=== PATIENT | female | born 1940 | race Hispanic/Latino ===

== ENCOUNTER 2018-09-22 20:55 | Emergency (ER) | payer OTHER, MEDICARE ==
--- OUTSIDE RECORDS SUMMARY | 2018-09-22 20:58 | XMS REPORT ---
:1940 [facility] [address] [place] [address] [place] [id number] Care Team Providers Name Role Phone Unavailable Unavailable Unavailable Problems This patient has no known problems. Allergies, Adverse Reactions, Alerts This patient has no known allergies or adverse reactions. Medications This patient has no known medications.
[2018-09-22 22:10] LABS: Absolute Lymphocytes (CBC) 2.1 K/uL (0.7-4.9); Basophils % 0.6 % (0-1.3); Lymphocytes % 21.5 % (15.3-44.8); RBC Red Blood Cell Count 3.79 M/uL (3.86-4.86)
[2018-09-22 22:13] LABS: Protime INR 1.11
[2018-09-22 22:40] LABS: Magnesium 2.1 mg/dL (1.8-2.4); Potassium 3.4 mmol/L (3.5-5.1); Troponin (Emerg Dept Use Only) 0.11 ng/mL (0.0-0.045)
--- NOTE | 2018-09-23 00:22 | ER ---
Nurse's Notes [facility] Name: Claudette Sherman Age: 77 yrs Sex: Female : 1940 Arrival Date: 09/22/2018 Time: 20:58 Bed 18 Private MD: Diagnosis: Elevated troponin;Essential (primary) hypertension Presentation: 09/22 21:02 Presenting complaint: Patient states: I feel kind of off, a little dizzy. We checked my la1 BP at the pharmacy and my BP was 224/69 and they advised we come in. Transition of care: patient was not received from another setting of care. Onset of symptoms was September 22, 2018. Risk Assessment: Do you want to hurt yourself or someone else? Patient reports no desire to harm self or others. Initial Sepsis Screen: Does the patient meet any 2 criteria? No. Patient's initial sepsis screen is negative. Does the patient have a suspected source of infection? No. Patient's initial sepsis screen is negative. Care prior to arrival: None. 21:02 Method Of Arrival: Ambulatory la1 21:02 Acuity: LIZ 3 la1 Historical: - Allergies: 21:02 No Known Allergies; la1 - Home Meds: 21:02 lisinopril 10 mg Oral tab 1 tab BID [Active]; levothyroxine 88 mcg tab 1 tab once daily la1 [Active]; aspirin 81 mg Oral TbEC 1 tab once daily [Active]; - PMHx: 21:02 Hypertension; High Cholesterol; Hypothyroidism; la1 - Immunization history:: Adult Immunizations up to date. - Social history:: Smoking status: Patient/guardian denies using tobacco. - Ebola Screening: : No symptoms or risks identified at this time. Screenin:57 Abuse screen: Denies threats or abuse. Denies injuries from another. Abuse screen: wh Denies threats or abuse. Denies injuries from another. Nutritional screening: No deficits noted. Tuberculosis screening: No symptoms or risk factors identified. Fall Risk None identified. Assessment: 21:50 General: Appears in no apparent distress. Behavior is calm, cooperative, appropriate wh for age. Pain: Denies pain. Neuro: Level of Consciousness is awake, alert, obeys commands, Oriented to person, place, time, situation, Appropriate for age Supervisor Paper Testing are equal bilaterally. Cardiovascular: Heart tones S1 S2. Respiratory: Airway is patent Respiratory effort is even, unlabored, Respiratory pattern is regular, symmetrical, Breath sounds are clear bilaterally. GI: Abdomen is flat, non-distended, Abd is soft and non tender X 4 quads. : No signs and/or symptoms were reported regarding the genitourinary system. EENT: No signs and/or symptoms were reported regarding the EENT system. Derm: Skin is intact, is healthy with good turgor, Skin is pink, warm \T\ dry. normal. Musculoskeletal: Range of motion: intact in all extremities. 22:55 Reassessment: Patient appears in no apparent distress at this time. Patient and/or family updated on plan of care and expected duration. Pain level reassessed. Patient is alert, oriented x 3, equal unlabored respirations, skin warm/dry/pink. Patient denies pain at this time. Vital Signs: 21:04 Pulse 77; Resp 18; Temp 98.4; Pulse Ox 98% on R/A; Weight 59.87 kg; la1 21:04 BP 180 / 64; la1 21:45 BP 150 / 61; Pulse 98; Resp 18; Pulse Ox 100% on R/A; wh 22:55 BP 179 / 65; Pulse 62; Resp 16; Pulse Ox 100% ; 16 00:00 BP 95 / 84; Pulse 66; Resp 18; Pulse Ox 100% on R/A; 00:30 BP 165 / 79; Pulse 66; Resp 18; Pulse Ox 100% on R/A; ED Course: 09/22 20:58 Patient arrived in ED. ag3 21:02 Arm band placed on right wrist. la1 21:03 Triage completed. la1 21:11 Herbert Bryson is Primary Nurse. wh 21:18 Naty Reilly FNP-C is PHCP. kb 21:18 Robbin Garza MD is Attending Physician. kb 21:57 Inserted saline lock: 22 gauge in left antecubital area, using aseptic technique. cm6 22:14 XRAY Chest (1 view) In Process Unspecified. EDMS 22:57 Patient has correct armband on for positive identification. Placed in gown. Bed in low wh position. Call light in reach. Side rails up X 1. equipment monitor phototypesetting on. Pulse ox on. NIBP on. 09/23 00:50 No provider procedures requiring assistance completed. IV discontinued, intact, bleeding controlled, No redness/swelling at site. Administered Medications: 00:37 Drug: ZyrTEC - Cetirizine 10 mg Route: PO; 00:50 Follow up: Response: No adverse reaction Outcome: 00:50 AMA AMA form signed 00:50 Condition: good 00:50 Instructed on the need for admit. 00:52 Patient left the ED. Signatures: Dispatcher [employer] EDMS Naty Reilly, GABRIEL-C TECHNICAL SYSTEM ANALYST-Tera Olivo RN RN la1 Herbert Bryson Carlene Marshall ag3 Marielle Mckeon cm6 Corrections: (The following items were deleted from the chart) 09/22 21:05 21:02 Acuity: LIZ 2 la1 la1
--- NOTE | 2018-09-23 00:24 | EDPHYS ---
Physician Documentation [facility] Name: Claudette Sherman Age: 77 yrs Sex: Female : 1940 Arrival Date: 09/22/2018 Time: 20:58 Bed 18 Private MD: ED Physician Robbin Garza HPI: 09/23 00:58 This 77 yrs old Female presents to ER via Ambulatory with complaints of High kb Blood Pressure. 00:58 The patient has elevated blood pressure and discovered this at a drugstore. Onset: The kb symptoms/episode began/occurred just prior to arrival. Associated signs and symptoms: The patient has no apparent associated signs or symptoms. Severity of symptoms: At its worst the blood pressure was 200 mm Hg, in the emergency department the blood pressure is improved, 180 mm Hg. The patient has experienced similar episodes in the past. The patient has not recently seen a physician. reports pt's blood pressure was elevated and they were advised to come get her checked out. Pt denies any chest pain, headache or other symptoms. Historical: - Allergies: 09/22 21:02 No Known Allergies; la1 - Home Meds: 21:02 lisinopril 10 mg Oral tab 1 tab BID [Active]; levothyroxine 88 mcg tab 1 tab once daily la1 [Active]; aspirin 81 mg Oral TbEC 1 tab once daily [Active]; - PMHx: 21:02 Hypertension; High Cholesterol; Hypothyroidism; la1 - Immunization history:: Adult Immunizations up to date. - Social history:: Smoking status: Patient/guardian denies using tobacco. - Ebola Screening: : No symptoms or risks identified at this time. ROS: 09/23 00:57 Constitutional: Negative for fever, chills, and weight loss, Eyes: Negative for injury, kb pain, redness, and discharge, ENT: Negative for injury, pain, and discharge, Neck: Negative for injury, pain, and swelling, Cardiovascular: Negative for chest pain, palpitations, and edema, Respiratory: Negative for shortness of breath, cough, wheezing, and pleuritic chest pain, Abdomen/GI: Negative for abdominal pain, nausea, vomiting, diarrhea, and constipation, Back: Negative for injury and pain, : Negative for injury, bleeding, discharge, and swelling, MS/Extremity: Negative for injury and deformity, Skin: Negative for injury, rash, and discoloration, Neuro: Negative for headache, weakness, numbness, tingling, and seizure. Exam: 00:57 Constitutional: This is a well developed, well nourished patient who is awake, alert, kb and in no acute distress. Head/Face: Normocephalic, atraumatic. Eyes: Pupils equal round and reactive to light, extra-ocular motions intact. Lids and lashes normal. Conjunctiva and sclera are non-icteric and not injected. Cornea within normal limits. Periorbital areas with no swelling, redness, or edema. ENT: Nares patent. No nasal discharge, no septal abnormalities noted. Tympanic membranes are normal and external auditory canals are clear. Oropharynx with no redness, swelling, or masses, exudates, or evidence of obstruction, uvula midline. Mucous membranes moist. Neck: Trachea midline, no thyromegaly or masses palpated, and no cervical lymphadenopathy. Supple, full range of motion without nuchal rigidity, or vertebral point tenderness. No Meningismus. Chest/axilla: Normal chest wall appearance and motion. Nontender with no deformity. No lesions are appreciated. Cardiovascular: Regular rate and rhythm with a normal S1 and S2. No gallops, or rubs. Normal PMI, no JVD. No pulse deficits. Respiratory: Lungs have equal breath sounds bilaterally, clear to auscultation and percussion. No rales, rhonchi or wheezes noted. No increased work of breathing, no retractions or nasal flaring. Abdomen/GI: Soft, non-tender, with normal bowel sounds. No distension or tympany. No guarding or rebound. No evidence of tenderness throughout. Skin: Warm, dry with normal turgor. Normal color with no rashes, no lesions, and no evidence of cellulitis. MS/ Extremity: Pulses equal, no cyanosis. Neurovascular intact. Full, normal range of motion. Neuro: Awake and alert, GCS 15, oriented to person, place, time, and situation. Cranial nerves II-XII grossly intact. Motor strength 5/5 in all extremities. Sensory grossly intact. Cerebellar exam normal. Normal gait. Vital Signs: 09/22 21:04 Pulse 77; Resp 18; Temp 98.4; Pulse Ox 98% on R/A; Weight 59.87 kg; la1 21:04 BP 180 / 64; la1 21:45 BP 150 / 61; Pulse 98; Resp 18; Pulse Ox 100% on R/A; 22:55 BP 179 / 65; Pulse 62; Resp 16; Pulse Ox 100% ; 09/23 00:00 BP 95 / 84; Pulse 66; Resp 18; Pulse Ox 100% on R/A; 00:30 BP 165 / 79; Pulse 66; Resp 18; Pulse Ox 100% on R/A; MDM: 09/22 21:18 Patient medically screened. kb 23:01 Data reviewed: vital signs, nurses notes. Data interpreted: Pulse oximetry: on room air kb is 100 %. Interpretation: normal. ED course: Troponin was 0.11 when pt was here in 2013 as well. Will recheck to look for elevation. Pt has no chest pain. 09/23 00:17 Counseling: I had a detailed discussion with the patient and/or guardian regarding: the kb historical points, exam findings, and any diagnostic results supporting the discharge/admit diagnosis, lab results, radiology results, the need for further work-up and treatment in the hospital. ED course: Pt educated on troponin elevation and need for admission to the hospital. Pt reports she never had chest pain and is not staying because she is ready to go home. Will call Dr Anguiano in the morning. Educated to return for any chest pain. 09/22 21:25 Order name: Basic Metabolic Panel; Complete Time: 22:42 kb 09/22 21:25 Order name: CBC with Diff; Complete Time: 22:22 kb 09/22 21:25 Order name: Magnesium; Complete Time: 22:42 kb 09/22 21:25 Order name: NT PRO-BNP; Complete Time: 22:42 kb 09/22 21:25 Order name: PT-INR; Complete Time: 22:18 kb 09/22 21:25 Order name: Troponin (emerg Dept Use Only); Complete Time: 22:42 kb 09/22 21:25 Order name: XRAY Chest (1 view) kb 09/22 21:25 Order name: EKG; Complete Time: 21:26 kb 09/22 21:25 Order name: Cardiac monitoring; Complete Time: 22:02 kb 09/22 21:25 Order name: EKG - Nurse/Tech; Complete Time: 22:02 kb 09/22 21:25 Order name: IV Saline Lock; Complete Time: 22: kb 09/22 23:36 Order name: Troponin (emerg Dept Use Only); Complete Time: 00:14 kb 09/22 23:36 Order name: EKG; Complete Time: 23:36 kb 09/22 21:25 Order name: Labs collected and sent; Complete Time: 22:02 kb 09/22 21:25 Order name: O2 Per Protocol; Complete Time: 22: kb 09/22 21:25 Order name: O2 Sat Monitoring; Complete Time: 22: kb 09/22 23:36 Order name: EKG - Nurse/Tech; Complete Time: 23:49 kb Administered Medications: 00:37 Drug: ZyrTEC - Cetirizine 10 mg Route: PO; 00:50 Follow up: Response: No adverse reaction Disposition: 06:41 Co-signature as Attending Physician, Robbin Garza MD I agree with the assessment and tw4 plan of care. Disposition: 09/23/18 00:19 Patient has left against medical advice. Impression: Elevated troponin, Essential (primary) hypertension. - Patients states they are going to Home. - Condition is Stable. Follow up: Emergency Department; When: As needed; Reason: Worsening of condition. Follow up: Private Physician; When: 2 - 3 days; Reason: Recheck today's complaints, Continuance of care, Re-evaluation by your physician. - Problem is new. - Symptoms are resolved. Signatures: Dispatcher [employer] EDOH Naty Reilly, GOLDEN RIOS-Tera Olivo RN RN azHerbert Fonseca Robbin Garza MD MD tw4 Corrections: (The following items were deleted from the chart) 00:19 00:19 09/23/2018 00:19 Patients has left against medical advice. Impression: Chest kb pain, unspecified. Patient states they are going to Home. Condition is Stable. Follow up: Emergency Department; When: As needed; Reason: Worsening of condition. Follow up: Private Physician; When: 2 - 3 days; Reason: Recheck today's complaints, Continuance of care, Re-evaluation by your physician. Problem is new. Symptoms are resolved. 00:20 00:17 ED course: Pt educated on troponin elevation and need for admission [facility]. Pt reports she never had chest pain and is not staying because she is ready to go home. . 00:52 00:19 09/23/2018 00:19 Patients has left against medical advice. Impression: Elevated wh troponin; Essential (primary) hypertension. Patient states they are going to Home. Condition is Stable. Follow up: Emergency Department; When: As needed; Reason: Worsening of condition. Follow up: Private Physician; When: 2 - 3 days; Reason: Recheck today's complaints, Continuance of care, Re-evaluation by your physician. Problem is new. Symptoms are resolved. kb
[2018-09-23] MEDS ORDERED: CETIRIZINE HCL 5 MG TABLET ONE ×2 (00:30→00:33)
[2018-09-23 02:29] VITALS: TEMP 98.4
[2018-09-23 02:30] VITALS: O2SAT 100
[2018-09-23 02:34] VITALS: BP 165/79
--- NOTE | 2018-09-23 08:03 | RAD REPORT ---
EXAM DESCRIPTION: Danis Single View09/22/2018 10:14 pm CLINICAL HISTORY: Chest pain COMPARISON: 2017 FINDINGS: The lungs appear clear of acute infiltrate. The heart is mildly to moderately enlarged. C alcification of the mitral annulus is seen. IMPRESSION: No acute abnormalities displayed
--- NOTE | 2018-09-23 11:46 | EKG ---
Test Date: 2018-09-23 Test Time: 03:29:37 Manager Of Tires Sales: TYREE MEASUREMENT RESULTS: Intervals: Rate: 92 GA: 136 QRSD: 84 QT: 362 QTc: 447 [place]: P: 39 GA: 136 QRS: 30 T: 93 INTERPRETIVE STATEMENTS: Normal sinus rhythm Nonspecific T wave abnormality Abnormal ECG Compared to ECG 09/22/2018 23:44:51 T-wave abnormality now present Electronically Signed On 09-23-18 11:44:47 CDT by Delfino Guzmán
--- NOTE | 2018-09-23 11:46 | EKG ---
Test Date: 2018-09-22 Test Time: 23:44:51 Aircraft Loadmaster Superintendent: TYREE MEASUREMENT RESULTS: Intervals: Rate: 68 MD: 146 QRSD: 156 QT: 482 QTc: 512 [place]: P: 50 MD: 146 QRS: 9 T: 224 INTERPRETIVE STATEMENTS: Normal sinus rhythm Nonspecific intraventricular block Abnormal ECG Compared to ECG 04/23/2013 17:18:48 Left bundle-branch block no longer present Electronically Signed On 09-23-18 11:44:55 CDT by Delfino Guzmán
--- NOTE | 2018-09-23 11:47 | EKG ---
Test Date: 2018-09-22 Test Time: 22:06:56 Mediation Commissioner: TYREE MEASUREMENT RESULTS: Intervals: Rate: 74 LA: 146 QRSD: 154 QT: 468 QTc: 519 [place]: P: 60 LA: 146 QRS: 7 T: 142 INTERPRETIVE STATEMENTS: Normal sinus rhythm Nonspecific intraventricular block Abnormal ECG Compared to ECG 04/23/2013 17:18:48 Left bundle-branch block no longer present Electronically Signed On 09-23-18 11:44:58 CDT by Delfino Guzmán
== END 2018-09-23 00:52 | disposition left against medical advice (07) ==
LOC: ER 20:55
DX: I10 Essential (primary) hypertension (principal); E78.00 Pure hypercholesterolemia, unspecified; E03.9 Hypothyroidism, unspecified; Z79.82 Long term (current) use of aspirin
CPT/HCPCS: 36415; 71045; 80048; 83735; 83880; 84484; 85025; 85610; 93005; 99284

== ENCOUNTER 2020-02-22 18:36 | Observation (INO) | payer OTHER, MEDICARE ==
--- OUTSIDE RECORDS SUMMARY | 2020-02-22 18:50 | XMS REPORT | Continuity of Care Document ---
:1940 Author Organization [facility] t Address [address] [place] [address] Care Team Providers Name Role Phone Ellyn RN Attending Clinician Unavailable Payers Payer Name Policy Type Policy Number Effective Date Expiration Date S ource Problems This patient has no known problems. Allergies, Adverse Reactions, Alerts Allergy Allergy Status Severity Reaction(s) Onset Inactive Treating Comm ents Source Name Type Date Date Clinician No Known DA Active U 2020- [facility]11 [facility] 00:00: [address] No Known DA Active U 2020-1 [facility] 0[facility] 00:[facility]: [address] No Known DA Active U 2020-1 [facility] 0[facility] 00:00: [address] Medications This patient has no known medications. Procedures This patient has no known procedures. Encounters Start End Encounter Admission Attending Care Care Encounter Source Date/Time Date/Time Type Type Clinicians Facility Department ID 2020-02-22 2020-02-22 Transition Zuhair Ragland [id number] 00:00:00 00:00:00 of Care Lisa Oneal [id number] Diony [id number] Results Test Description Test Time Test Comments Results Result Comments Source GLUCOSE BEDSIDE TESTING 2020-01-05 11:55:00 Test Item Value Reference Range Interpretation Comme nts GLUCOSE BEDSIDE TESTING (test code = GLUBED) 132 MG/DL 60-99 H GLUCOSE BEDSIDE [id number] 11:04:00 Test Item Value Reference Range Interpretation Comments GLUCOSE BEDSIDE TESTING (test code = 74 MG/DL 60-99 N GLUBED) GLUCOSE BEDSIDE [id number] 07:38:00 Test Item Value Reference Range Interpretation Comments GLUCOSE BEDSIDE TESTING (test code 110 MG/DL 60-99 H = GLUBED) BASIC METABOLIC [id number] 06:32:00 Test Item Value Reference Range Interpretation Comments SODIUM (test code = 132 MMOL/L 137-145 L NA) POTASSIUM (test code = 3.6 MMOL/L 3.5-5.1 N K) CHLORIDE (test code = 103 MMOL/L 98-107 N CL) CARBON DIOXIDE (test 23 MMOL/L 22-30 N code = CO2) GLUCOSE (test code = 124 MG/DL 74-106 H GLU) BLOOD UREA NITROGEN 39 MG/DL 7-17 H (test code = BUN) GLOMERULAR FILTRATION > 60 Report ing units: RATE (test code = GFR) ml/mi n/1.73 m2 (Modified MDRD Formula)Referen ce Range: > or = 6 0 ml/min/1.73 m2 CREATININE (test code 0.80 MG/DL 0.52-1.04 N = CREAT) CALCIUM (test code = 8.1 MG/DL 8.4-10.2 L CA) BASIC METABOLIC [id number] 06:31:00 Test Item Value Reference Range Interpretation Comments SODIUM (test code = 132 MMOL/L 137-145 L NA) POTASSIUM (test code = 3.6 MMOL/L 3.5-5.1 N K) CHLORIDE (test code = 103 MMOL/L 98-107 N CL) CARBON DIOXIDE (test MMOL/L 22-30 code = CO2) GLUCOSE (test code = MG/DL 74-106 GLU) BLOOD UREA NITROGEN MG/DL 7-17 (test code = BUN) GLOMERULAR FILTRATION > 60 Report ing units: RATE (test code = GFR) ml/mi n/1.73 m2 (Modified MDRD Formula)Referen ce Range: > or = 6 0 ml/min/1.73 m2 CREATININE (test code 0.80 MG/DL 0.52-1.04 N = CREAT) CALCIUM (test code = MG/DL 8.7-9.7 CA) BASIC METABOLIC [id number] 06:29:00 Test Item Value Reference Range Interpretation Comments SODIUM (test code = NA) 132 MMOL/L 137-145 L POTASSIUM (test code = K) 3.6 MMOL/L 3.5-5.1 N CHLORIDE (test code = CL) 103 MMOL/L 98-107 N CARBON DIOXIDE (test code = CO2) MMOL/L 22-30 GLUCOSE (test code = GLU) MG/DL 74-106 BLOOD UREA NITROGEN (test code = MG/DL 7-17 BUN) GLOMERULAR FILTRATION RATE (test code = GFR) CREATININE (test code = CREAT) MG/DL 0.52-1.04 CALCIUM (test code = CA) MG/DL 8.7-9.7 BASIC METABOLIC [id number] 06:28:00 Test Item Value Reference Range Interpretation Comments SODIUM (test code = NA) MMOL/L 137-145 POTASSIUM (test code = K) MMOL/L 3.5-5.1 CHLORIDE (test code = CL) 103 MMOL/L 98-107 N CARBON DIOXIDE (test code = CO2) MMOL/L 22-30 GLUCOSE (test code = GLU) MG/DL 74-106 BLOOD UREA NITROGEN (test code = MG/DL 7-17 BUN) GLOMERULAR FILTRATION RATE (test code = GFR) CREATININE (test code = CREAT) MG/DL 0.52-1.04 CALCIUM (test code = CA) MG/DL 8.7-9.7 PROTHROMBIN [id number] 06:17:00 Test Item Value Reference Range Interpretation Comments PROTHROMBIN TIME 19.2 SECONDS 9.4-12.5 H PATIENT (test code = PTP) INTERNATIONAL NORMAL 1.7 The INR is to be RATIO (test code = used only for INR) monitoring oral anticoagulantth erap y. INDICATION I NR VALUE ---- ---- ---- -------1. Prophylaxis, de ep venous thrombos is, including hig h risk surgery. 2.0 - 3.0 2. Prophylaxis, de ep venous thrombos is, hip surgery, treatment for d eep venous thrombosis or pulmonary prevention of systemic emboli sm in patients wit h valvular heart disease, atrial fibrillation, tissue heart va lve, or acute myocar dial infarction. 2.0 - 3 .0 3. Mechanical prosthesis hear t valves, recurrent syste eric embolism. 3.0 - 4.5 CBC W/AUTO [id number] 06:12:00 Test Item Value Reference Range Interpretation Comments WHITE BLOOD CELL (test code = 24.7 K/MM3 3.8-9.8 H WBC) RED BLOOD CELL (test code = 2.71 M/MM3 3.58-4.97 L RBC) HEMOGLOBIN (test code = HGB) 7.9 G/DL 11.2-14.9 L HEMATOCRIT (test code = HCT) 25.1 % 33.2-43.5 L MEAN CELL VOLUME (test code = 93 fL 80.7-99.1 N MCV) MEAN CELL HGB (test code = MCH) 29.2 pg 27.0-34.1 N MEAN CELL HGB CONCETRATION 31.5 % 32.2-35.7 L (test code = MCHC) RED CELL DISTRIBUTION WIDTH 16.9 % 12.1-15.2 H (test code = RDW) PLATELET COUNT (test code = 462 K/MM3 129-368 H PLT) MEAN PLATELET VOLUME (test code 10.5 fl 7.4-10.4 H = MPV) NEUTROPHIL % (test code = NT%) 89.9 % 43-75 H IMMATURE GRANULOCYTE % (test 2.0 % 0.0-2.0 N code = IG%) LYMPHOCYTE % (test code = LY%) 3.6 % 14-44 L MONOCYTE % (test code = MO%) 3.7 % 4-13 L EOSINOPHIL % (test code = EO%) 0.4 % 0-6 N BASOPHIL % (test code = BA%) 0.4 % 0-2 N NUCLEATED RBC % (test code = 0.0 % 0-1.0 N NRBC%) NEUTROPHIL # (test code = NT#) 22.14 K/mm3 2.0-7.6 H IMMATURE GRANULOCYTE # (test 0.49 x10 3/uL 0-0.03 H code = IG#) LYMPHOCYTE # (test code = LY#) 0.90 K/mm3 1.0-3.8 L MONOCYTE # (test code = MO#) 0.91 K/mm3 0.1-0.8 H EOSINOPHIL # (test code = EO#) 0.11 K/mm3 0.0-0.2 N BASOPHIL # (test code = BA#) 0.11 K/mm3 0.0-0.2 N NUCLEATED RBC # (test code = 0.00 K/mm3 0.0-0.1 N NRBC#) - CT ABD PELVIS W/O [id number] 19:52:00 [facility] 1940 Sex: F Patient Name: JORGE A HORTA Unit No: [id number] EXAMS: CPT CODE: [id number] CT ABD PELVIS W/O CONT [id number] EXAM: CT abdomen and pelvis INDICATION: Post-op bleeding COMPARISON: December 30, 2019 LOCATION: [facility] CT scan of the abdomen and pelvis was performed without intravenous contrast. One or more of the following radiation dose reduction techniques was used: automated exposure control, adjustment of mA and/or KV according to patient size, and/or utilization of iterative reconstruction technique. FINDINGS: Quality of Exam: Acceptable. LIVER: The liver is unremarkable. BILIARY SYSTEM: There is no biliary dilatation. The gallbladder has been previously removed. SPLEEN: The spleen is unremarkable. PANCREAS: The pancreas is unremarkable. ADRENAL GLANDS: The adrenal glands are unremarkable. KIDNEYS: The kidneys appear unremarkable. No renal or ureteral stone is identified. There is no hydronephrosis. AORTA: There is no abdominal aortic aneurysm. THORACIC: There are small bilateral pleural effusions and there is bilateral dependent atelectasis in the lungs. APPENDIX: The appendix appears unremarkable. GASTROINTESTINAL: There is no imaging evidence of large or small bowel obstruction. An ostomy in the pelvis is again identified. There are diverticula involving the colon. BONES/SOFT TISSUES: No concerning bony lesion identified. LYMPHATICS: No enlarged lymph nodes by CT criteria. PERITONEUM/OTHER: There continues to be a small amount of free fluid in the abdomen and pelvis. No free air is identified. A catheter in the pelvis is again identified. 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 IMPRESSION: There continues to be a small amount of free fluid in the abdomen and pelvis. This appears similar to the prior exam. There are small bilateral pleural effusions and there is bilateral dependent atelectasis in the lungs. There may be a component of left lower lobe pneumonia as well. There continues to be edema involving the subcutaneous soft tissues. There is diverticulosis of the colon. Compared to the prior exam, there has been little change. [id number] Reported and signed by: Loc Medina MD CC: Nicolas Wiley MD; Ramu Sutherland MD; Rashid Son MD Technologist: Jose Victor RT (R) (CT) CTDI: DLP: Trnscrpt: 01/02/2020 (1952) t.SDR.PMT [facility] NAME: JORGE A HORTA41 Gerry PHYS: [place] [address] : 1940 AGE: 79SEX: F LOC: Z.SI06 A PHONE #: [phone] EXAM DATE: 01/02/2020 STATUS: ADM IN FAX #: [phone] RAD #: D/C DT PAGE 2 Signed Report Patient Name: JORGE A HORTA Unit No: [id number] EXAMS: CPT CODE: [id number] CT ABD PELVIS W/O CONT [id number] <Continued> Orig Print D/T: S: 01/02/2020 (1955) [facility] NAME: JORGE A HORTA [id number] [address] PHYS: [id number] - Saurab[place] [address] : 1940 AGE: 79 SEX: F LOC: Z.SI06 A PHONE #: [phone] EXAM DATE: 01/02/2020 STATUS: ADM IN FAX #: [phone] RAD #: D/C DT PAGE 3 Signed ReportHGB [id number] 16:29:00 Test Item Value Reference Range Interpretation Comments HEMOGLOBIN (test code = HGB) 8.2 G/DL 11.2-14.9 L HEMATOCRIT (test code = HCT) 26.0 % 33.2-43.5 L GLUCOSE BEDSIDE [id number] 16:27:00 Test Item Value Reference Range Interpretation Comments GLUCOSE BEDSIDE TESTING (test code = 59 MG/DL 60-99 L GLUBED) GLUCOSE BEDSIDE [id number] 12:00:00 Test Item Value Reference Range Interpretation Comments GLUCOSE BEDSIDE TESTING (test code 101 MG/DL 60-99 H = GLUBED) HGB [id number] 09:00:00 Test Item Value Reference Range Interpretation Comments HEMOGLOBIN (test code = 6.4 G/DL 11.2-14.9 LL CALL ED TO SUZANNE BOYKIN) READBACK ON AT 0900 BY Ilan Loo HEMATOCRIT (test code = 20.5 % 33.2-43.5 L HCT) CBC W/AUTO [id number] 07:51:00 Test Item Value Reference Range Interpretation Comments WHITE BLOOD CELL (test 26.8 K/MM3 3.8-9.8 H code = WBC) RED BLOOD CELL (test 2.08 M/MM3 3.58-4.97 L code = RBC) HEMOGLOBIN (test code 6.3 G/DL 11.2-14.9 LL CALLED TO Rody Bai = HGB) & READBACK ON 01/02/20 AT 060 8 BY James Bean HEMATOCRIT (test code 19.9 % 33.2-43.5 LL CALLED TO Rody M = HCT) & READBACK ON 01/02/20 AT 060 8 BY James Bean MEAN CELL VOLUME (test 96 fL 80.7-99.1 N code = MCV) MEAN CELL HGB (test 30.3 pg 27.0-34.1 N code = MCH) MEAN CELL HGB 31.7 % 32.2-35.7 L CONCETRATION (test code = MCHC) RED CELL DISTRIBUTION 16.0 % 12.1-15.2 H WIDTH (test code = RDW) PLATELET COUNT (test 451 K/MM3 129-368 H code = PLT) MEAN PLATELET VOLUME 10.9 fl 7.4-10.4 H (test code = MPV) NEUTROPHIL % (test 88.4 % 43-75 H code = NT%) IMMATURE GRANULOCYTE % 2.9 % 0.0-2.0 H (test code = IG%) LYMPHOCYTE % (test 3.8 % 14-44 L code = LY%) MONOCYTE % (test code 4.3 % 4-13 N = MO%) EOSINOPHIL % (test 0.3 % 0-6 N code = EO%) BASOPHIL % (test code 0.3 % 0-2 N = BA%) NUCLEATED RBC % (test 0.0 % 0-1.0 N code = NRBC%) NEUTROPHIL # (test 23.75 K/mm3 2.0-7.6 H code = NT#) IMMATURE GRANULOCYTE # 0.77 x10 3/uL 0-0.03 H (test code = IG#) LYMPHOCYTE # (test 1.02 K/mm3 1.0-3.8 N code = LY#) MONOCYTE # (test code 1.16 K/mm3 0.1-0.8 H = MO#) EOSINOPHIL # (test 0.07 K/mm3 0.0-0.2 N code = EO#) BASOPHIL # (test code 0.07 K/mm3 0.0-0.2 N = BA#) NUCLEATED RBC # (test 0.00 K/mm3 0.0-0.1 N code = NRBC#) DIFFERENTIAL [id number] 07:51:00 Test Item Value Reference Range Interpretation Comments RBC MORPHOLOGY REQUIRED (test code NORMAL = RBCM) ANISOCYTOSIS (test code = ANISO) SLIGHT NONE PLATELET ESTIMATE (test code = INCREASED ADEQUATE PLTEST) PLATELET MORPHOLOGY (test code = NORMAL NORMAL PLTMORPH) BASIC METABOLIC [id number] 06:22:00 Test Item Value Reference Range Interpretation Comments SODIUM (test code = 135 MMOL/L 137-145 L NA) POTASSIUM (test code = 3.8 MMOL/L 3.5-5.1 N K) CHLORIDE (test code = 104 MMOL/L 98-107 N CL) CARBON DIOXIDE (test 26 MMOL/L 22-30 N code = CO2) ANION GAP (test code = 9 MMOL/L 14-24 L GAP) GLUCOSE (test code = 89 MG/DL 74-106 N GLU) BLOOD UREA NITROGEN 40 MG/DL 7-17 H (test code = BUN) GLOMERULAR FILTRATION > 60 Report ing units: RATE (test code = GFR) ml/mi n/1.73 m2 (Modified MDRD Formula)Referen ce Range: > or = 6 0 ml/min/1.73 m2 CREATININE (test code 0.70 MG/DL 0.52-1.04 N = CREAT) CALCIUM (test code = 8.3 MG/DL 8.4-10.2 L CA) PROTHROMBIN [id number] 06:22:00 Test Item Value Reference Range Interpretation Comments PROTHROMBIN TIME 18.2 SECONDS 9.4-12.5 H PATIENT (test code = PTP) INTERNATIONAL NORMAL 1.6 The INR is to be RATIO (test code = used only for INR) monitoring oral anticoagulantth erap y. INDICATION I NR VALUE ---- ---- ---- -------1. Prophylaxis, de ep venous thrombos is, including hig h risk surgery. 2.0 - 3.0 2. Prophylaxis, de ep venous thrombos is, hip surgery, treatment for d eep venous thrombosis or pulmonary prevention of systemic emboli sm in patients wit h valvular heart disease, atrial fibrillation, tissue heart va lve, or acute myocar dial infarction. 2.0 - 3 .0 3. Mechanical prosthesis hear t valves, recurrent syste eric embolism. 3.0 - 4.5 Comments to Medical Biller: .BASIC METABOLIC [id number] 06:17:00 Test Item Value Reference Range Interpretation Comments SODIUM (test code = NA) 135 MMOL/L 137-145 L POTASSIUM (test code = K) 3.8 MMOL/L 3.5-5.1 N CHLORIDE (test code = CL) 104 MMOL/L 98-107 N CARBON DIOXIDE (test code = CO2) MMOL/L 22-30 GLUCOSE (test code = GLU) MG/DL 74-106 BLOOD UREA NITROGEN (test code = MG/DL 7-17 BUN) GLOMERULAR FILTRATION RATE (test code = GFR) CREATININE (test code = CREAT) MG/DL 0.52-1.04 CALCIUM (test code = CA) MG/DL 8.7-9.7 CBC W/AUTO [id number] 06:16:00 Test Item Value Reference Range Interpretation Comments WHITE BLOOD CELL (test 26.8 K/MM3 3.8-9.8 H code = WBC) RED BLOOD CELL (test 2.08 M/MM3 3.58-4.97 L code = RBC) HEMOGLOBIN (test code 6.3 G/DL 11.2-14.9 LL CALLED TO Rody M = HGB) & READBACK ON 01/02/20 AT 060 8 BY James Bean HEMATOCRIT (test code 19.9 % 33.2-43.5 LL CALLED TO Rody M = HCT) & READBACK ON 01/02/20 AT 060 8 BY James Bean MEAN CELL VOLUME (test 96 fL 80.7-99.1 N code = MCV) MEAN CELL HGB (test 30.3 pg 27.0-34.1 N code = MCH) MEAN CELL HGB 31.7 % 32.2-35.7 L CONCETRATION (test code = MCHC) RED CELL DISTRIBUTION 16.0 % 12.1-15.2 H WIDTH (test code = RDW) PLATELET COUNT (test 451 K/MM3 129-368 H code = PLT) MEAN PLATELET VOLUME 10.9 fl 7.4-10.4 H (test code = MPV) NEUTROPHIL % (test 88.4 % 43-75 H code = NT%) IMMATURE GRANULOCYTE % 2.9 % 0.0-2.0 H (test code = IG%) LYMPHOCYTE % (test 3.8 % 14-44 L code = LY%) MONOCYTE % (test code 4.3 % 4-13 N = MO%) EOSINOPHIL % (test 0.3 % 0-6 N code = EO%) BASOPHIL % (test code 0.3 % 0-2 N = BA%) NUCLEATED RBC % (test 0.0 % 0-1.0 N code = NRBC%) NEUTROPHIL # (test 23.75 K/mm3 2.0-7.6 H code = NT#) IMMATURE GRANULOCYTE # 0.77 x10 3/uL 0-0.03 H (test code = IG#) LYMPHOCYTE # (test 1.02 K/mm3 1.0-3.8 N code = LY#) MONOCYTE # (test code 1.16 K/mm3 0.1-0.8 H = MO#) EOSINOPHIL # (test 0.07 K/mm3 0.0-0.2 N code = EO#) BASOPHIL # (test code 0.07 K/mm3 0.0-0.2 N = BA#) NUCLEATED RBC # (test 0.00 K/mm3 0.0-0.1 N code = NRBC#) DIFFERENTIAL [id number] 06:16:00 Test Item Value Reference Range Interpretation Comments RBC MORPHOLOGY REQUIRED (test code = RBCM) PLATELET ESTIMATE (test code = PLTEST) ADEQUATE PLATELET MORPHOLOGY (test code = NORMAL PLTMORPH) CBC W/AUTO [id number] 06:16:00 Test Item Value Reference Range Interpretation Comments WHITE BLOOD CELL (test 26.8 K/MM3 3.8-9.8 H code = WBC) RED BLOOD CELL (test 2.08 M/MM3 3.58-4.97 L code = RBC) HEMOGLOBIN (test code 6.3 G/DL 11.2-14.9 LL CALLED TO Rody M = HGB) & READBACK ON 01/02/20 AT 060 8 BY James Bean HEMATOCRIT (test code 19.9 % 33.2-43.5 LL CALLED TO Rody M = HCT) & READBACK ON 01/02/20 AT 060 8 BY James Bean MEAN CELL VOLUME (test 96 fL 80.7-99.1 N code = MCV) MEAN CELL HGB (test 30.3 pg 27.0-34.1 N code = MCH) MEAN CELL HGB 31.7 % 32.2-35.7 L CONCETRATION (test code = MCHC) RED CELL DISTRIBUTION 16.0 % 12.1-15.2 H WIDTH (test code = RDW) PLATELET COUNT (test 451 K/MM3 129-368 H code = PLT) MEAN PLATELET VOLUME 10.9 fl 7.4-10.4 H (test code = MPV) NEUTROPHIL % (test 88.4 % 43-75 H code = NT%) IMMATURE GRANULOCYTE % 2.9 % 0.0-2.0 H (test code = IG%) LYMPHOCYTE % (test 3.8 % 14-44 L code = LY%) MONOCYTE % (test code 4.3 % 4-13 N = MO%) EOSINOPHIL % (test 0.3 % 0-6 N code = EO%) BASOPHIL % (test code 0.3 % 0-2 N = BA%) NUCLEATED RBC % (test 0.0 % 0-1.0 N code = NRBC%) NEUTROPHIL # (test 23.75 K/mm3 2.0-7.6 H code = NT#) IMMATURE GRANULOCYTE # 0.77 x10 3/uL 0-0.03 H (test code = IG#) LYMPHOCYTE # (test 1.02 K/mm3 1.0-3.8 N code = LY#) MONOCYTE # (test code 1.16 K/mm3 0.1-0.8 H = MO#) EOSINOPHIL # (test 0.07 K/mm3 0.0-0.2 N code = EO#) BASOPHIL # (test code 0.07 K/mm3 0.0-0.2 N = BA#) NUCLEATED RBC # (test 0.00 K/mm3 0.0-0.1 N code = NRBC#) DIFFERENTIAL [id number] 06:16:00 Test Item Value Reference Range Interpretation Comments RBC MORPHOLOGY REQUIRED (test code = RBCM) PLATELET ESTIMATE (test code = PLTEST) ADEQUATE PLATELET MORPHOLOGY (test code = NORMAL PLTMORPH) GLUCOSE BEDSIDE [id number] 21:30:00 Test Item Value Reference Range Interpretation Comments GLUCOSE BEDSIDE TESTING (test code = 87 MG/DL 60-99 N GLUBED) ARTERIAL BLOOD [id number] 17:52:00 Test Item Value Reference Range Interpretation Comments ARTERIAL BLOOD GAS PH (test code 7.49 mmHg 7.35-7.45 H = PHA) ARTERIAL BLOOD GAS PCO2 (test 35.3 mmHg 35.0-45.0 N code = PCO2A) ARTERIAL BLOOD GAS PO2 (test code 83.9 mmol/L 80.0-100.0 N = PO2A) BICARBONATE TOTAL HCO3 (test code 26.3 mmol/L 20.0-26.0 H = HCO3) BASE EXCESS (test code = STEVEN) 3.3 mmol/L -3.0-3.0 H ABG O2 SATURATION (test code = 97.0 % 95.0-100.0 N SATA) ABG DELIVERY (test code = KAROLINA) VENT ABG VENT MODE (test code = MODEA) SIMV ABG VENT RESP RATE (test code = 4.0 /MIN RRA) ABG TIDAL VOLUME (test code = 400 ml TVA) ABG PEEP (test code = PEEPA) 5.0 cmH2O ABG PRESSURE SUPPORT (test code = 10 cmH2O PSABG) ABG TEMPERATURE (test code = 37.0 C >37 TEMPA) ABG SITE (test code = SITEA) AL ALLENS TEST (test code = ALLENS) NA CHECK FIO2 (test code = [id number]) 30 % PaO2/[id number] 17:52:00 Test Item Value Reference Range Interpretation Comments PaO2/FiO2 (test code = [id number]) 279.66 mm/Hg GLUCOSE BEDSIDE [id number] 16:23:00 Test Item Value Reference Range Interpretation Comments GLUCOSE BEDSIDE TESTING (test code 108 MG/DL 60-99 H = GLUBED) PROTHROMBIN [id number] 14:43:00 Test Item Value Reference Range Interpretation Comments PROTHROMBIN TIME 18.0 SECONDS 9.4-12.5 H PATIENT (test code = PTP) INTERNATIONAL NORMAL 1.6 The INR is to be RATIO (test code = used only for INR) monitoring oral anticoagulantth erap y. INDICATION I NR VALUE ---- ---- ---- -------1. Prophylaxis, de ep venous thrombos is, including hig h risk surgery. 2.0 - 3.0 2. Prophylaxis, de ep venous thrombos is, hip surgery, treatment for d eep venous thrombosis or pulmonary prevention of systemic emboli sm in patients wit h valvular heart disease, atrial fibrillation, tissue heart va lve, or acute myocar dial infarction. 2.0 - 3 .0 3. Mechanical prosthesis hear t valves, recurrent syste eric embolism. 3.0 - 4.5 UNABLE TO DRAW BLOOD, REASON: CBNNOTIFIED PATIENT CARE STAFF: PEPPER 01/01/20 AT 1405 BY Christiano [place] to Medical Biller: ,GLUCOSE BEDSIDE TESTING 2020-01-01 12:19:00 Test Item Value Reference Range Interpretation Comments GLUCOSE BEDSIDE TESTING (test code 116 MG/DL 60-99 H = GLUBED) GLUCOSE BEDSIDE [id number] 07:47:00 Test Item Value Reference Range Interpretation Comments GLUCOSE BEDSIDE TESTING (test code 109 MG/DL 60-99 H = GLUBED) BASIC METABOLIC [id number] 05:06:00 Test Item Value Reference Range Interpretation Comments SODIUM (test code = 136 MMOL/L 137-145 L NA) POTASSIUM (test code = 4.1 MMOL/L 3.5-5.1 N K) CHLORIDE (test code = 103 MMOL/L 98-107 N CL) CARBON DIOXIDE (test 27 MMOL/L 22-30 N code = CO2) ANION GAP (test code = 10 MMOL/L 14-24 L GAP) GLUCOSE (test code = 130 MG/DL 74-106 H GLU) BLOOD UREA NITROGEN 41 MG/DL 7-17 H (test code = BUN) GLOMERULAR FILTRATION > 60 Report ing units: RATE (test code = GFR) ml/mi n/1.73 m2 (Modified MDRD Formula)Referen ce Range: > or = 6 0 ml/min/1.73 m2 CREATININE (test code 0.70 MG/DL 0.52-1.04 N = CREAT) CALCIUM (test code = 8.5 MG/DL 8.4-10.2 N CA) BASIC METABOLIC [id number] 04:58:00 Test Item Value Reference Range Interpretation Comments SODIUM (test code = NA) 136 MMOL/L 137-145 L POTASSIUM (test code = K) 4.1 MMOL/L 3.5-5.1 N CHLORIDE (test code = CL) 103 MMOL/L 98-107 N CARBON DIOXIDE (test code = CO2) MMOL/L 22-30 GLUCOSE (test code = GLU) MG/DL 74-106 BLOOD UREA NITROGEN (test code = MG/DL 7-17 BUN) GLOMERULAR FILTRATION RATE (test code = GFR) CREATININE (test code = CREAT) MG/DL 0.52-1.04 CALCIUM (test code = CA) MG/DL 8.7-9.7 GLUCOSE BEDSIDE [id number] 20:12:00 Test Item Value Reference Range Interpretation Comments GLUCOSE BEDSIDE TESTING (test code 119 MG/DL 60-99 H = GLUBED) GLUCOSE BEDSIDE [id number] 15:55:00 Test Item Value Reference Range Interpretation Comments GLUCOSE BEDSIDE TESTING (test code 134 MG/DL 60-99 H = GLUBED) CBC W/O [id number] 11:34:00 Test Item Value Reference Range Interpretation Comments WHITE BLOOD CELL (test 32.2 K/MM3 3.8-9.8 HH MAYNARD Ray TO JENNIFER code = WBC) S.& READBACK ON 12/31/19 AT 110 9 BY Joyce Son RED BLOOD CELL (test 2.80 M/MM3 3.58-4.97 L code = RBC) HEMOGLOBIN (test code 8.2 G/DL 11.2-14.9 L = HGB) HEMATOCRIT (test code 25.8 % 33.2-43.5 L = HCT) MEAN CELL VOLUME (test 92 fL 80.7-99.1 N code = MCV) MEAN CELL HGB (test 29.3 pg 27.0-34.1 N code = MCH) MEAN CELL HGB 31.8 % 32.2-35.7 L CONCETRATION (test code = MCHC) RED CELL DISTRIBUTION 16.1 % 12.1-15.2 H WIDTH (test code = RDW) PLATELET COUNT (test 466 K/MM3 129-368 H code = PLT) NEUTROPHIL # (test 28.75 K/mm3 2.0-7.6 H code = NT#) IMMATURE GRANULOCYTE # 1.18 x10 3/uL 0-0.03 H (test code = IG#) LYMPHOCYTE # (test 1.02 K/mm3 1.0-3.8 N code = LY#) MONOCYTE # (test code 1.20 K/mm3 0.1-0.8 H = MO#) EOSINOPHIL # (test 0.01 K/mm3 0.0-0.2 N code = EO#) BASOPHIL # (test code 0.08 K/mm3 0.0-0.2 N = BA#) NUCLEATED RBC # (test 0.03 K/mm3 0.0-0.1 N code = NRBC#) DIFFERENTIAL [id number] 11:34:00 Test Item Value Reference Range Interpretation Comments RBC MORPHOLOGY REQUIRED (test code NORMAL = RBCM) POLYCHROMASIA (test code = POLC) FEW NONE PLATELET ESTIMATE (test code = INCREASED ADEQUATE PLTEST) PLATELET MORPHOLOGY (test code = NORMAL NORMAL PLTMORPH) WBC [id number] 11:34:00 Test Item Value Reference Range Interpretation Comments TOTAL CELLS COUNTED (test code = 130 #CELLS TCC) SEGMENTED NEUTROPHILS (test code = 89.3 % 36.2-73.8 H SEG) BAND NEUTROPHIL (test code = BAND) 3.3 % 0-10 N LYMPHOCYTE (test code = LYMPH) 2.5 % 12.9-45.1 L ATYPICAL LYMPH (test code = 0.0 % 0-0 N ALYMPH) MONOCYTE (test code = MON) 4.9 % 0-11 N BASIC METABOLIC [id number] 11:28:00 Test Item Value Reference Range Interpretation Comments SODIUM (test code = 133 MMOL/L 137-145 L NA) POTASSIUM (test code = 4.6 MMOL/L 3.5-5.1 N K) CHLORIDE (test code = 101 MMOL/L 98-107 N CL) CARBON DIOXIDE (test 27 MMOL/L 22-30 N code = CO2) ANION GAP (test code = 10 MMOL/L 14-24 L GAP) GLUCOSE (test code = 167 MG/DL 74-106 H GLU) BLOOD UREA NITROGEN 43 MG/DL 7-17 H (test code = BUN) GLOMERULAR FILTRATION > 60 Report ing units: RATE (test code = GFR) ml/mi n/1.73 m2 (Modified MDRD Formula)Referen ce Range: > or = 6 0 ml/min/1.73 m2 CREATININE (test code 0.70 MG/DL 0.52-1.04 N = CREAT) CALCIUM (test code = 8.7 MG/DL 8.4-10.2 N CA) [id number] 11:28:00 Test Item Value Reference Range Interpretation Comments VANCOMYCIN (test code = VANCO) 14.3 mcg/ML 5.0-26.0 CBC W/O [id number] 11:09:00 Test Item Value Reference Range Interpretation Comments WHITE BLOOD CELL (test 32.2 K/MM3 3.8-9.8 HH MAYNARD D TO JENNIFER code = WBC) S.& READBACK ON 12/31/19 AT 110 9 BY Joyce Son RED BLOOD CELL (test 2.80 M/MM3 3.58-4.97 L code = RBC) HEMOGLOBIN (test code 8.2 G/DL 11.2-14.9 L = HGB) HEMATOCRIT (test code 25.8 % 33.2-43.5 L = HCT) MEAN CELL VOLUME (test 92 fL 80.7-99.1 N code = MCV) MEAN CELL HGB (test 29.3 pg 27.0-34.1 N code = MCH) MEAN CELL HGB 31.8 % 32.2-35.7 L CONCETRATION (test code = MCHC) RED CELL DISTRIBUTION 16.1 % 12.1-15.2 H WIDTH (test code = RDW) PLATELET COUNT (test 466 K/MM3 129-368 H code = PLT) NEUTROPHIL # (test 28.75 K/mm3 2.0-7.6 H code = NT#) IMMATURE GRANULOCYTE # 1.18 x10 3/uL 0-0.03 H (test code = IG#) LYMPHOCYTE # (test 1.02 K/mm3 1.0-3.8 N code = LY#) MONOCYTE # (test code 1.20 K/mm3 0.1-0.8 H = MO#) EOSINOPHIL # (test 0.01 K/mm3 0.0-0.2 N code = EO#) BASOPHIL # (test code 0.08 K/mm3 0.0-0.2 N = BA#) NUCLEATED RBC # (test 0.03 K/mm3 0.0-0.1 N code = NRBC#) DIFFERENTIAL [id number] 11:09:00 Test Item Value Reference Range Interpretation Comments RBC MORPHOLOGY REQUIRED (test code = RBCM) PLATELET ESTIMATE (test code = PLTEST) ADEQUATE PLATELET MORPHOLOGY (test code = NORMAL PLTMORPH) WBC [id number] 11:09:00 Test Item Value Reference Range Interpretation Comments TOTAL CELLS COUNTED (test code = TCC) #CELLS SEGMENTED NEUTROPHILS (test code = % 36.2-73.8 SEG) LYMPHOCYTE (test code = LYMPH) % 12.9-45.1 MONOCYTE (test code = MON) % 0-11 CBC W/AUTO [id number] 11:09:00 Test Item Value Reference Range Interpretation Comments WHITE BLOOD CELL (test 32.2 K/MM3 3.8-9.8 ALEYDA RODRIGUEZ code = WBC) S.& READBACK ON 12/31/19 AT 110 9 BY Joyce Son RED BLOOD CELL (test 2.80 M/MM3 3.58-4.97 L code = RBC) HEMOGLOBIN (test code 8.2 G/DL 11.2-14.9 L = HGB) HEMATOCRIT (test code 25.8 % 33.2-43.5 L = HCT) MEAN CELL VOLUME (test 92 fL 80.7-99.1 N code = MCV) MEAN CELL HGB (test 29.3 pg 27.0-34.1 N code = MCH) MEAN CELL HGB 31.8 % 32.2-35.7 L CONCETRATION (test code = MCHC) RED CELL DISTRIBUTION 16.1 % 12.1-15.2 H WIDTH (test code = RDW) PLATELET COUNT (test 466 K/MM3 129-368 H code = PLT) MEAN PLATELET VOLUME 11.5 fl 7.4-10.4 H (test code = MPV) NEUTROPHIL % (test 89.2 % 43-75 H code = NT%) IMMATURE GRANULOCYTE % 3.7 % 0.0-2.0 H (test code = IG%) LYMPHOCYTE % (test 3.2 % 14-44 L code = LY%) MONOCYTE % (test code 3.7 % 4-13 L = MO%) EOSINOPHIL % (test 0.0 % 0-6 N code = EO%) BASOPHIL % (test code 0.2 % 0-2 N = BA%) NUCLEATED RBC % (test 0.1 % 0-1.0 N code = NRBC%) NEUTROPHIL # (test 28.75 K/mm3 2.0-7.6 H code = NT#) IMMATURE GRANULOCYTE # 1.18 x10 3/uL 0-0.03 H (test code = IG#) LYMPHOCYTE # (test 1.02 K/mm3 1.0-3.8 N code = LY#) MONOCYTE # (test code 1.20 K/mm3 0.1-0.8 H = MO#) EOSINOPHIL # (test 0.01 K/mm3 0.0-0.2 N code = EO#) BASOPHIL # (test code 0.08 K/mm3 0.0-0.2 N = BA#) NUCLEATED RBC # (test 0.03 K/mm3 0.0-0.1 N code = NRBC#) WBC [id number] 11:09:00 Test Item Value Reference Range Interpretation Comments RBC MORPHOLOGY REQUIRED (test code = RBCM) TOTAL CELLS COUNTED (test code = TCC) #CELLS SEGMENTED NEUTROPHILS (test code = % 36.2-73.8 SEG) LYMPHOCYTE (test code = LYMPH) % 12.9-45.1 MONOCYTE (test code = MON) % 0-11 PLATELET ESTIMATE (test code = ADEQUATE PLTEST) PLATELET MORPHOLOGY (test code = NORMAL PLTMORPH) ARTERIAL BLOOD [id number] 11:00:00 Test Item Value Reference Range Interpretation Comments ARTERIAL BLOOD GAS PH 7.53 mmHg 7.35-7.45 HH (test code = PHA) ARTERIAL BLOOD GAS PCO2 31.2 mmHg 35.0-45.0 L (test code = PCO2A) ARTERIAL BLOOD GAS PO2 62.5 mmol/L 80.0-100.0 L (test code = PO2A) BICARBONATE TOTAL HCO3 25.3 mmol/L 20.0-26.0 N (test code = HCO3) BASE EXCESS (test code 3.3 mmol/L -3.0-3.0 H = STEVEN) ABG O2 SATURATION (test 94.3 % 95.0-100.0 L All critical values code = SATA) report to and readback by DANILO ESCOBAR by RAFAT PRITCHETT at 12/31/2019 10:59:33 AM ABG DELIVERY (test code RM AIR = KAROLINA) ABG TEMPERATURE (test 37.0 C >37 code = TEMPA) ABG SITE (test code = AL SITEA) ALLENS TEST (test code NA CHECK = ALLENS) FIO2 (test code = 21 % COHBGFFIO2) PaO2/[id number] 11:00:00 Test Item Value Reference Range Interpretation Comments PaO2/FiO2 (test code = [id number]) mm/Hg ARTERIAL BLOOD [id number] 11:00:00 Test Item Value Reference Range Interpretation Comments ARTERIAL BLOOD GAS PH 7.53 mmHg 7.35-7.45 HH (test code = PHA) ARTERIAL BLOOD GAS PCO2 31.2 mmHg 35.0-45.0 L (test code = PCO2A) ARTERIAL BLOOD GAS PO2 62.5 mmol/L 80.0-100.0 L (test code = PO2A) BICARBONATE TOTAL HCO3 25.3 mmol/L 20.0-26.0 N (test code = HCO3) BASE EXCESS (test code 3.3 mmol/L -3.0-3.0 H = STEVEN) ABG O2 SATURATION (test 94.3 % 95.0-100.0 L All critical values code = SATA) report to and readback by DANILO ESCOBAR by RAFAT PRITCHETT at 12/31/2019 10:59:33 AM ABG DELIVERY (test code RM AIR = KAROLINA) ABG TEMPERATURE (test 37.0 C >37 code = TEMPA) ABG SITE (test code = AL SITEA) ALLENS TEST (test code NA CHECK = ALLENS) FIO2 (test code = 21 % COHBGFFIO2) PaO2/[id number] 11:00:00 Test Item Value Reference Range Interpretation Comments PaO2/FiO2 (test code = [id number]) 297.61 mm/Hg GLUCOSE BEDSIDE [id number] 10:52:00 Test Item Value Reference Range Interpretation Comments GLUCOSE BEDSIDE TESTING (test code 167 MG/DL 60-99 H = GLUBED) GLUCOSE BEDSIDE [id number] 07:30:00 Test Item Value Reference Range Interpretation Comments GLUCOSE BEDSIDE TESTING (test code 148 MG/DL 60-99 H = GLUBED) GLUCOSE BEDSIDE [id number] 20:36:00 Test Item Value Reference Range Interpretation Comments GLUCOSE BEDSIDE TESTING (test code 139 MG/DL 60-99 H = GLUBED) GLUCOSE BEDSIDE [id number] 16:00:00 Test Item Value Reference Range Interpretation Comments GLUCOSE BEDSIDE TESTING (test code 126 MG/DL 60-99 H = GLUBED) [id number] 12:30:00 Test Item Value Reference Range Interpretation Comments VANCOMYCIN (test code = VANCO) 8.3 mcg/ML 5.0-26.0 N GLUCOSE BEDSIDE [id number] 11:19:00 Test Item Value Reference Range Interpretation Comments GLUCOSE BEDSIDE TESTING (test code 118 MG/DL 60-99 H = GLUBED) GLUCOSE BEDSIDE [id number] 07:49:00 Test Item Value Reference Range Interpretation Comments GLUCOSE BEDSIDE TESTING (test code 106 MG/DL 60-99 H = GLUBED) - CT ABD PELVIS [id number] 07:42:00 [facility] 1940 Sex: F Patient Name: JORGE A HORTA Unit No: [id number] EXAMS: CPT CODE: [id number] CT ABD PELVIS W/CONT 42064 HISTORY: Persistent WBC EXAM TYPE: CT abdomen and pelvis with IV contrast. H49 TECHNIQUE: Contrast - IV contrast was given, no oral contrast was given Portal venous phase - abdomen and pelvis No delayed phase images were obtained. Reconstructions - coronal and sagittal planes One or more of the following dose reduction techniques were used: Automated exposure control, adjustment of the mA and/or kV according to patient size, and/or utilization of iterative reconstruction technique. COMPARISON: CT abdomen and pelvis 12/04/2019 FINDINGS: Lower thorax: There are small layering bilateral pleural effusions with adjacent compressive atelectasis. Heart is mildly enlarged. 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 Partially visualized mitral valve calcification is noted. There is no significant pericardial effusion. 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 Hepatobiliary: Normal appearance of the liverparenchyma with resolution of previously noted pneumobilia. No discrete intrahepatic lesions are seen. However, there is now new trace perihepatic ascites present. Patent hepatic veins and main portal vein. Slight prominence of extrahepatic bile duct is most likely due to postc holecystectomy changes. Gallbladder: Surgical absence Spleen: Normal. Pancreas: No main duct dilation or focal mass. Adrenals: No visualized abnormality. Kidneys: Multiple tiny cysts are present within the kidneys, too small to characterize. There is slight cortical thinning. No hydronephrosis or hydroureter. No obvious nephrolithiasis. Bowel: Air fluid are present in the stomach and small bowel without evidence of bowel obstruction. The appendix is not confidently identified. However, no discrete pericecal inflammation to suggest acute appendicitis. Vessels: There is extensive calcification within the abdominal aorta. No aneurysmal dilatation. Lymph nodes: No adenopathy. [facility] NAME: JORGE A HORTA [id number] [address] PHYS: TSARodolof Payne MD [address] [address] : 1940 AGE: 79 SEX: F LOC: Z.SI06 A PHONE #: [phone] EXAM DATE: 12/30/2019 STATUS: ADM IN FAX #: [phone] RAD #: D/C DT PAGE 1 Signed Report (CONTINUED) Patient Name: JORGE A HORTA Unit No: [id number] EXAMS: CPT CODE: [id number] CT ABD PELVIS W/CONT 53841 <Continued> Peritoneum/retroperitoneum: Small volume abdominal ascites, new from prior exam. There is no free intraperitoneal air. 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 This focus measures 1.6 x 1.8 x 2.3 cm, as before No large hematoma is otherwise seen. 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 Adnexal structures are otherwise within normal limits. There is small small volume pelvic ascites with left abdominal approach catheter present in the pelvis, correlate clinically for any signs of peritoneal dialysis catheter. The urinary bladder is decompressed with Sosa catheterization, air is noted within the anterior aspect of the urinary bladder. Lymph nodes: No pelvic or inguinal adenopathy. Bones/soft tissues: There is mild levoconvex curvature of the lumbar spine centered at L1-L2. No discrete osteolytic or osteosclerotic lesions are seen. Marked anasarca/edema present throughout the abdominal and pelvic armendariz extending down into the lower extremities with asymmetric edema of the right lower extremity. Surgical rg are noted along the anterior abdominal pelvic wall. IMPRESSION: 1. Small layering bilateral pleural effusions with adjacent atelectasis or developing infiltrates, not significantly changed from prior exam but possibly associated patient leukocytosis. 2. Interval resolution of previously noted pneumobilia. However, new small volume abdominopelvic ascites is present with new pelvic catheter in place and postsurgical changes noted along the anterior abdominal pelvic wall correlate clinically for signs of peritoneal dialysis catheter. Moderate, anasarca/body wall edema, likely on the basis of patient's fluid status. 3. 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 4. Otherwise no acute process in the abdomen and pelvis. at 0742 Reported and signed by: Lizzy Ryan MD [facility] NAME: JORGE A HORTA [id number] [address] PHYS: [id number] Rodolfo De La Torre MD [address] [place] [address] : 1940 AGE: 79 SEX: F LOC: Z.SI06 A PHONE #: [phone] EXAM DATE: 12/30/2019 STATUS: ADM IN FAX #: [phone] RAD #: D/C DT PAGE 2 Signed Report (CONTINUED) Patient Name: JORGE A HORTA Unit No: [id number] EXAMS: CPT CODE: [id number] CT ABD PELVIS W/CONT 54403 <Continued> CC: Tevin Samuels; Ramu Sutherland MD; Rodolfo Dillon MD Technologist: Cole Castano CTDI: DLP: Trnscrpt: 12/30/2019 (0742) [id number] [facility] NAME: JORGE A HORTA [id number] [address] PHYS: Rodolfo Landeros MD [address] [place] [address] : 1940 AGE: 79 SEX: F LOC: Z.SI06 A PHONE #: [phone] EXAM DATE: 12/30/2019 STATUS: ADM IN FAX #: [phone] RAD #: D/C DT PAGE 3 Signed Report Patient Name: JORGE A HORTA Unit No: [id number] EXAMS: CPT CODE: [id number] CT ABD PELVIS W/CONT 89056 <Continued> Orig Print D/T: S: 12/30/2019 (0745) [facility] NAME: JORGE A HORTA [id number] [address] PHYS: Rodolfo Landeros MD [address] [place] [address] : 1940 AGE: 79 SEX: F LOC: Z.SI06 A PHONE #: [phone] EXAM DATE: 12/30/2019 STATUS: ADM IN FAX #: [phone] RAD #: D/C DT PAGE 4 Signed ReportBASIC METABOLIC [id number] 05:39:00 Test Item Value Reference Range Interpretation Comments SODIUM (test code = 134 MMOL/L 137-145 L NA) POTASSIUM (test code = 4.2 MMOL/L 3.5-5.1 N K) CHLORIDE (test code = 103 MMOL/L 98-107 N CL) CARBON DIOXIDE (test 28 MMOL/L 22-30 N code = CO2) ANION GAP (test code = 7 MMOL/L 14-24 L GAP) GLUCOSE (test code = 91 MG/DL 74-106 N GLU) BLOOD UREA NITROGEN 37 MG/DL 7-17 H (test code = BUN) GLOMERULAR FILTRATION > 60 Report ing units: RATE (test code = GFR) ml/mi n/1.73 m2 (Modified MDRD Formula)Referen ce Range: > or = 6 0 ml/min/1.73 m2 CREATININE (test code 0.60 MG/DL 0.52-1.04 N = CREAT) CALCIUM (test code = 8.1 MG/DL 8.4-10.2 L CA) BASIC METABOLIC [id number] 05:25:00 Test Item Value Reference Range Interpretation Comments SODIUM (test code = 134 MMOL/L 137-145 L NA) POTASSIUM (test code = 4.2 MMOL/L 3.5-5.1 N K) CHLORIDE (test code = 103 MMOL/L 98-107 N CL) CARBON DIOXIDE (test MMOL/L 22-30 code = CO2) GLUCOSE (test code = MG/DL 74-106 GLU) BLOOD UREA NITROGEN MG/DL 7-17 (test code = BUN) GLOMERULAR FILTRATION > 60 Report ing units: RATE (test code = GFR) ml/mi n/1.73 m2 (Modified MDRD Formula)Referen ce Range: > or = 6 0 ml/min/1.73 m2 CREATININE (test code 0.60 MG/DL 0.52-1.04 N = CREAT) CALCIUM (test code = MG/DL 8.7-9.7 CA) BASIC METABOLIC [id number] 05:23:00 Test Item Value Reference Range Interpretation Comments SODIUM (test code = NA) 134 MMOL/L 137-145 L POTASSIUM (test code = K) 4.2 MMOL/L 3.5-5.1 N CHLORIDE (test code = CL) 103 MMOL/L 98-107 N CARBON DIOXIDE (test code = CO2) MMOL/L 22-30 GLUCOSE (test code = GLU) MG/DL 74-106 BLOOD UREA NITROGEN (test code = MG/DL 7-17 BUN) GLOMERULAR FILTRATION RATE (test code = GFR) CREATININE (test code = CREAT) MG/DL 0.52-1.04 CALCIUM (test code = CA) MG/DL 8.7-9.7 BASIC METABOLIC [id number] 05:22:00 Test Item Value Reference Range Interpretation Comments SODIUM (test code = NA) MMOL/L 137-145 POTASSIUM (test code = K) MMOL/L 3.5-5.1 CHLORIDE (test code = CL) 103 MMOL/L 98-107 N CARBON DIOXIDE (test code = CO2) MMOL/L 22-30 GLUCOSE (test code = GLU) MG/DL 74-106 BLOOD UREA NITROGEN (test code = MG/DL 7-17 BUN) GLOMERULAR FILTRATION RATE (test code = GFR) CREATININE (test code = CREAT) MG/DL 0.52-1.04 CALCIUM (test code = CA) MG/DL 8.7-9.7 CBC W/AUTO [id number] 05:17:00 Test Item Value Reference Range Interpretation Comments WHITE BLOOD CELL (test code = 28.6 K/MM3 3.8-9.8 H WBC) RED BLOOD CELL (test code = 3.22 M/MM3 3.58-4.97 L RBC) HEMOGLOBIN (test code = HGB) 9.6 G/DL 11.2-14.9 L HEMATOCRIT (test code = HCT) 30.3 % 33.2-43.5 L MEAN CELL VOLUME (test code = 94 fL 80.7-99.1 N MCV) MEAN CELL HGB (test code = MCH) 29.8 pg 27.0-34.1 N MEAN CELL HGB CONCETRATION 31.7 % 32.2-35.7 L (test code = MCHC) RED CELL DISTRIBUTION WIDTH 16.3 % 12.1-15.2 H (test code = RDW) PLATELET COUNT (test code = 307 K/MM3 129-368 PLT) MEAN PLATELET VOLUME (test code 11.7 fl 7.4-10.4 H = MPV) NEUTROPHIL % (test code = NT%) 86.6 % 43-75 H IMMATURE GRANULOCYTE % (test 5.8 % 0.0-2.0 H code = IG%) LYMPHOCYTE % (test code = LY%) 3.4 % 14-44 L MONOCYTE % (test code = MO%) 3.7 % 4-13 L EOSINOPHIL % (test code = EO%) 0.0 % 0-6 N BASOPHIL % (test code = BA%) 0.5 % 0-2 N NUCLEATED RBC % (test code = 0.0 % 0-1.0 N NRBC%) NEUTROPHIL # (test code = NT#) 24.73 K/mm3 2.0-7.6 H IMMATURE GRANULOCYTE # (test 1.67 x10 3/uL 0-0.03 H code = IG#) LYMPHOCYTE # (test code = LY#) 0.96 K/mm3 1.0-3.8 L MONOCYTE # (test code = MO#) 1.06 K/mm3 0.1-0.8 H EOSINOPHIL # (test code = EO#) 0.01 K/mm3 0.0-0.2 N BASOPHIL # (test code = BA#) 0.13 K/mm3 0.0-0.2 N NUCLEATED RBC # (test code = 0.00 K/mm3 0.0-0.1 N NRBC#) DIFFERENTIAL [id number] 05:17:00 Test Item Value Reference Range Interpretation Comments RBC MORPHOLOGY REQUIRED (test code = RBCM) PLATELET ESTIMATE (test code = PLTEST) ADEQUATE PLATELET MORPHOLOGY (test code = NORMAL PLTMORPH) CBC W/AUTO [id number] 05:17:00 Test Item Value Reference Range Interpretation Comments WHITE BLOOD CELL (test code = 28.6 K/MM3 3.8-9.8 H WBC) RED BLOOD CELL (test code = 3.22 M/MM3 3.58-4.97 L RBC) HEMOGLOBIN (test code = HGB) 9.6 G/DL 11.2-14.9 L HEMATOCRIT (test code = HCT) 30.3 % 33.2-43.5 L MEAN CELL VOLUME (test code = 94 fL 80.7-99.1 N MCV) MEAN CELL HGB (test code = MCH) 29.8 pg 27.0-34.1 N MEAN CELL HGB CONCETRATION 31.7 % 32.2-35.7 L (test code = MCHC) RED CELL DISTRIBUTION WIDTH 16.3 % 12.1-15.2 H (test code = RDW) PLATELET COUNT (test code = 307 K/MM3 129-368 PLT) MEAN PLATELET VOLUME (test code 11.7 fl 7.4-10.4 H = MPV) NEUTROPHIL % (test code = NT%) 86.6 % 43-75 H IMMATURE GRANULOCYTE % (test 5.8 % 0.0-2.0 H code = IG%) LYMPHOCYTE % (test code = LY%) 3.4 % 14-44 L MONOCYTE % (test code = MO%) 3.7 % 4-13 L EOSINOPHIL % (test code = EO%) 0.0 % 0-6 N BASOPHIL % (test code = BA%) 0.5 % 0-2 N NUCLEATED RBC % (test code = 0.0 % 0-1.0 N NRBC%) NEUTROPHIL # (test code = NT#) 24.73 K/mm3 2.0-7.6 H IMMATURE GRANULOCYTE # (test 1.67 x10 3/uL 0-0.03 H code = IG#) LYMPHOCYTE # (test code = LY#) 0.96 K/mm3 1.0-3.8 L MONOCYTE # (test code = MO#) 1.06 K/mm3 0.1-0.8 H EOSINOPHIL # (test code = EO#) 0.01 K/mm3 0.0-0.2 N BASOPHIL # (test code = BA#) 0.13 K/mm3 0.0-0.2 N NUCLEATED RBC # (test code = 0.00 K/mm3 0.0-0.1 N NRBC#) DIFFERENTIAL [id number] 05:17:00 Test Item Value Reference Range Interpretation Comments RBC MORPHOLOGY REQUIRED (test code = RBCM) PLATELET ESTIMATE (test code = PLTEST) ADEQUATE PLATELET MORPHOLOGY (test code = NORMAL PLTMORPH) ARTERIAL BLOOD [id number] 03:21:00 Test Item Value Reference Range Interpretation Comments ARTERIAL BLOOD GAS PH 7.45 mmHg 7.35-7.45 N (test code = PHA) ARTERIAL BLOOD GAS PCO2 39.0 mmHg 35.0-45.0 N (test code = PCO2A) ARTERIAL BLOOD GAS PO2 94.7 mmol/L 80.0-100.0 N (test code = PO2A) BICARBONATE TOTAL HCO3 26.7 mmol/L 20.0-26.0 H (test code = HCO3) BASE EXCESS (test code 2.8 mmol/L -3.0-3.0 N = STEVEN) ABG O2 SATURATION (test 97.5 % 95.0-100.0 N All critical values code = SATA) report to and readback by DR. CORTEZ by CHAYITO at 12/30/2019 3:15 :45 AM ABG L/M (test code = 3 L/MIN L/M) ABG DELIVERY (test code N/C = K[place]) ABG TEMPERATURE (test 37.0 C >37 code = TEMPA) ABG SITE (test code = AL SITEA) ALLENS TEST (test code NA CHECK = ALLENS) FIO2 (test code = 32 % COHBGFFIO2) PaO2/[id number] 03:21:00 Test Item Value Reference Range Interpretation Comments PaO2/FiO2 (test code = [id number]) mm/Hg ARTERIAL BLOOD [id number] 03:21:00 Test Item Value Reference Range Interpretation Comments ARTERIAL BLOOD GAS PH 7.45 mmHg 7.35-7.45 N (test code = PHA) ARTERIAL BLOOD GAS PCO2 39.0 mmHg 35.0-45.0 N (test code = PCO2A) ARTERIAL BLOOD GAS PO2 94.7 mmol/L 80.0-100.0 N (test code = PO2A) BICARBONATE TOTAL HCO3 26.7 mmol/L 20.0-26.0 H (test code = HCO3) BASE EXCESS (test code 2.8 mmol/L -3.0-3.0 N = STEVEN) ABG O2 SATURATION (test 97.5 % 95.0-100.0 N All critical values code = SATA) report to and readback by DR. CORTEZ by CHAYITO at 12/30/2019 3:15 :45 AM ABG L/M (test code = 3 L/MIN L/M) ABG DELIVERY (test code N/C = [place]) ABG TEMPERATURE (test 37.0 C >37 code = TEMPA) ABG SITE (test code = AL SITEA) ALLENS TEST (test code NA CHECK = ALLENS) FIO2 (test code = 32 % COHBGFFIO2) PaO2/[id number] 03:21:00 Test Item Value Reference Range Interpretation Comments PaO2/FiO2 (test code = [id number]) 295.93 mm/Hg GLUCOSE BEDSIDE [id number] 20:10:00 Test Item Value Reference Range Interpretation Comments GLUCOSE BEDSIDE TESTING (test code = 80 MG/DL 60-99 N GLUBED) GLUCOSE BEDSIDE [id number] 17:00:00 Test Item Value Reference Range Interpretation Comments GLUCOSE BEDSIDE TESTING (test code = 99 MG/DL 60-99 N GLUBED) ARTERIAL BLOOD [id number] 16:38:00 Test Item Value Reference Range Interpretation Comments ARTERIAL BLOOD GAS PH (test code 7.45 mmHg 7.35-7.45 N = PHA) ARTERIAL BLOOD GAS PCO2 (test 41.2 mmHg 35.0-45.0 N code = PCO2A) ARTERIAL BLOOD GAS PO2 (test 195.5 mmol/L 80.0-100.0 H code = PO2A) BICARBONATE TOTAL HCO3 (test 28.1 mmol/L 20.0-26.0 H code = HCO3) BASE EXCESS (test code = STEVEN) 3.8 mmol/L -3.0-3.0 H ABG O2 SATURATION (test code = 99.4 % 95.0-100.0 N SATA) ABG L/M (test code = L/M) 4 L/MIN ABG DELIVERY (test code = [place]) N/C ABG TEMPERATURE (test code = 37.0 C >37 TEMPA) ABG SITE (test code = SITEA) AL ALLENS TEST (test code = ALLENS) NA CHECK FIO2 (test code = COHBGFFIO2) 36 % PaO2/[id number] 16:38:00 Test Item Value Reference Range Interpretation Comments PaO2/FiO2 (test code = [id number]) mm/Hg ARTERIAL BLOOD [id number] 16:38:00 Test Item Value Reference Range Interpretation Comments ARTERIAL BLOOD GAS PH (test code 7.45 mmHg 7.35-7.45 N = PHA) ARTERIAL BLOOD GAS PCO2 (test 41.2 mmHg 35.0-45.0 N code = PCO2A) ARTERIAL BLOOD GAS PO2 (test 195.5 mmol/L 80.0-100.0 H code = PO2A) BICARBONATE TOTAL HCO3 (test 28.1 mmol/L 20.0-26.0 H code = HCO3) BASE EXCESS (test code = STEVEN) 3.8 mmol/L -3.0-3.0 H ABG O2 SATURATION (test code = 99.4 % 95.0-100.0 N SATA) ABG L/M (test code = L/M) 4 L/MIN ABG DELIVERY (test code = [place]) N/C ABG TEMPERATURE (test code = 37.0 C >37 TEMPA) [facility] AL ALLENS TEST (test code = ALLENS) NA CHECK FIO2 (test code = COHBGFFIO2) 36 % PaO2/[id number] 16:38:00 Test Item Value Reference Range Interpretation Comments PaO2/FiO2 (test code = [id number]) 543.05 mm/Hg ARTERIAL BLOOD [id number] 11:48:00 Test Item Value Reference Range Interpretation Comments ARTERIAL BLOOD GAS PH (test code 7.46 mmHg 7.35-7.45 H = PHA) ARTERIAL BLOOD GAS PCO2 (test 36.5 mmHg 35.0-45.0 N code = PCO2A) ARTERIAL BLOOD GAS PO2 (test 172.7 mmol/L 80.0-100.0 H code = PO2A) BICARBONATE TOTAL HCO3 (test 25.4 mmol/L 20.0-26.0 N code = HCO3) BASE EXCESS (test code = STEVEN) 1.9 mmol/L -3.0-3.0 N ABG O2 SATURATION (test code = 99.3 % 95.0-100.0 N SATA) ABG L/M (test code = L/M) 10 L/MIN ABG DELIVERY (test code = [place]) FT/NC ABG TEMPERATURE (test code = 37.0 C >37 TEMPA) ABG SITE (test code = SITEA) AL ALLENS TEST (test code = ALLENS) NA CHECK FIO2 (test code = COHBGFFIO2) 50 % PaO2/[id number] 11:48:00 Test Item Value Reference Range Interpretation Comments PaO2/FiO2 (test code = [id number]) mm/Hg ARTERIAL BLOOD [id number] 11:48:00 Test Item Value Reference Range Interpretation Comments ARTERIAL BLOOD GAS PH (test code 7.46 mmHg 7.35-7.45 H = PHA) ARTERIAL BLOOD GAS PCO2 (test 36.5 mmHg 35.0-45.0 N code = PCO2A) ARTERIAL BLOOD GAS PO2 (test 172.7 mmol/L 80.0-100.0 H code = PO2A) BICARBONATE TOTAL HCO3 (test 25.4 mmol/L 20.0-26.0 N code = HCO3) BASE EXCESS (test code = STEVEN) 1.9 mmol/L -3.0-3.0 N ABG O2 SATURATION (test code = 99.3 % 95.0-100.0 N SATA) ABG L/M (test code = L/M) 10 L/MIN ABG DELIVERY (test code = [place]) FT/NC ABG TEMPERATURE (test code = 37.0 C >37 TEMPA) ABG SITE (test code = SITEA) AL ALLENS TEST (test code = ALLENS) NA CHECK FIO2 (test code = COHBGFFIO2) 50 % PaO2/[id number] 11:48:00 Test Item Value Reference Range Interpretation Comments PaO2/FiO2 (test code = [id number]) 345.40 mm/Hg GLUCOSE BEDSIDE [id number] 11:02:00 Test Item Value Reference Range Interpretation Comments GLUCOSE BEDSIDE TESTING (test code 131 MG/DL 60-99 H = GLUBED) ARTERIAL BLOOD [id number] 10:15:00 Test Item Value Reference Range Interpretation Comments ARTERIAL BLOOD GAS PH (test code 7.47 mmHg 7.35-7.45 H = PHA) ARTERIAL BLOOD GAS PCO2 (test 38.6 mmHg 35.0-45.0 N code = PCO2A) ARTERIAL BLOOD GAS PO2 (test 108.2 mmol/L 80.0-100.0 H code = PO2A) BICARBONATE TOTAL HCO3 (test 27.5 mmol/L 20.0-26.0 H code = HCO3) BASE EXCESS (test code = STEVEN) 3.7 mmol/L -3.0-3.0 H ABG O2 SATURATION (test code = 98.2 % 95.0-100.0 N SATA) ABG DELIVERY (test code = [place]) VENT ABG VENT MODE (test code = CPAP MODEA) ABG PEEP (test code = PEEPA) 5.0 cmH2O ABG PRESSURE SUPPORT (test code 10 cmH2O = PSABG) ABG TEMPERATURE (test code = 37.0 C >37 TEMPA) ABG SITE (test code = SITEA) AL ALLENS TEST (test code = ALLENS) NA CHECK FIO2 (test code = COHBGFFIO2) 40 % PaO2/[id number] 10:15:00 Test Item Value Reference Range Interpretation Comments PaO2/FiO2 (test code = [id number]) mm/Hg ARTERIAL BLOOD [id number] 10:15:00 Test Item Value Reference Range Interpretation Comments ARTERIAL BLOOD GAS PH (test code 7.47 mmHg 7.35-7.45 H = PHA) ARTERIAL BLOOD GAS PCO2 (test 38.6 mmHg 35.0-45.0 N code = PCO2A) ARTERIAL BLOOD GAS PO2 (test 108.2 mmol/L 80.0-100.0 H code = PO2A) BICARBONATE TOTAL HCO3 (test 27.5 mmol/L 20.0-26.0 H code = HCO3) BASE EXCESS (test code = STEVEN) 3.7 mmol/L -3.0-3.0 H ABG O2 SATURATION (test code = 98.2 % 95.0-100.0 N SATA) ABG DELIVERY (test code = KAR[place]) VENT ABG VENT MODE (test code = CPAP MODEA) ABG PEEP (test code = PEEPA) 5.0 cmH2O ABG PRESSURE SUPPORT (test code 10 cmH2O = PSABG) ABG TEMPERATURE (test code = 37.0 C >37 TEMPA) ABG SITE (test code = SITEA) AL ALLENS TEST (test code = ALLENS) NA CHECK FIO2 (test code = COHBGFFIO2) 40 % PaO2/[id number] 10:15:00 Test Item Value Reference Range Interpretation Comments PaO2/FiO2 (test code = [id number]) 270.50 mm/Hg GLUCOSE BEDSIDE [id number] 07:25:00 Test Item Value Reference Range Interpretation Comments GLUCOSE BEDSIDE TESTING (test code 103 MG/DL 60-99 H = GLUBED) CBC W/AUTO [id number] 04:50:00 Test Item Value Reference Range Interpretation Comments WHITE BLOOD CELL (test code = 23.9 K/MM3 3.8-9.8 H WBC) RED BLOOD CELL (test code = 3.13 M/MM3 3.58-4.97 L RBC) HEMOGLOBIN (test code = HGB) 9.2 G/DL 11.2-14.9 L HEMATOCRIT (test code = HCT) 29.2 % 33.2-43.5 L MEAN CELL VOLUME (test code = 93 fL 80.7-99.1 N MCV) MEAN CELL HGB (test code = MCH) 29.4 pg 27.0-34.1 N MEAN CELL HGB CONCETRATION 31.5 % 32.2-35.7 L (test code = MCHC) RED CELL DISTRIBUTION WIDTH 16.7 % 12.1-15.2 H (test code = RDW) PLATELET COUNT (test code = 224 K/MM3 129-368 N PLT) MEAN PLATELET VOLUME (test code 12.0 fl 7.4-10.4 H = MPV) NEUTROPHIL % (test code = NT%) 83.7 % 43-75 H IMMATURE GRANULOCYTE % (test 6.7 % 0.0-2.0 H code = IG%) LYMPHOCYTE % (test code = LY%) 4.7 % 14-44 L MONOCYTE % (test code = MO%) 4.2 % 4-13 N EOSINOPHIL % (test code = EO%) 0.3 % 0-6 N BASOPHIL % (test code = BA%) 0.4 % 0-2 N NUCLEATED RBC % (test code = 0.1 % 0-1.0 N NRBC%) NEUTROPHIL # (test code = NT#) 20.02 K/mm3 2.0-7.6 H IMMATURE GRANULOCYTE # (test 1.60 x10 3/uL 0-0.03 H code = IG#) LYMPHOCYTE # (test code = LY#) 1.12 K/mm3 1.0-3.8 N MONOCYTE # (test code = MO#) 1.01 K/mm3 0.1-0.8 H EOSINOPHIL # (test code = EO#) 0.07 K/mm3 0.0-0.2 N BASOPHIL # (test code = BA#) 0.09 K/mm3 0.0-0.2 N NUCLEATED RBC # (test code = 0.02 K/mm3 0.0-0.1 N NRBC#) DIFFERENTIAL [id number] 04:50:00 Test Item Value Reference Range Interpretation Comments RBC MORPHOLOGY REQUIRED (test code = RBCM) PLATELET ESTIMATE (test code = PLTEST) ADEQUATE PLATELET MORPHOLOGY (test code = NORMAL PLTMORPH) CBC W/AUTO [id number] 04:50:00 Test Item Value Reference Range Interpretation Comments WHITE BLOOD CELL (test code = 23.9 K/MM3 3.8-9.8 H WBC) RED BLOOD CELL (test code = 3.13 M/MM3 3.58-4.97 L RBC) HEMOGLOBIN (test code = HGB) 9.2 G/DL 11.2-14.9 L HEMATOCRIT (test code = HCT) 29.2 % 33.2-43.5 L MEAN CELL VOLUME (test code = 93 fL 80.7-99.1 N MCV) MEAN CELL HGB (test code = MCH) 29.4 pg 27.0-34.1 N MEAN CELL HGB CONCETRATION 31.5 % 32.2-35.7 L (test code = MCHC) RED CELL DISTRIBUTION WIDTH 16.7 % 12.1-15.2 H (test code = RDW) PLATELET COUNT (test code = 224 K/MM3 129-368 N PLT) MEAN PLATELET VOLUME (test code 12.0 fl 7.4-10.4 H = MPV) NEUTROPHIL % (test code = NT%) 83.7 % 43-75 H IMMATURE GRANULOCYTE % (test 6.7 % 0.0-2.0 H code = IG%) LYMPHOCYTE % (test code = LY%) 4.7 % 14-44 L MONOCYTE % (test code = MO%) 4.2 % 4-13 N EOSINOPHIL % (test code = EO%) 0.3 % 0-6 N BASOPHIL % (test code = BA%) 0.4 % 0-2 N NUCLEATED RBC % (test code = 0.1 % 0-1.0 N NRBC%) NEUTROPHIL # (test code = NT#) 20.02 K/mm3 2.0-7.6 H IMMATURE GRANULOCYTE # (test 1.60 x10 3/uL 0-0.03 H code = IG#) LYMPHOCYTE # (test code = LY#) 1.12 K/mm3 1.0-3.8 N MONOCYTE # (test code = MO#) 1.01 K/mm3 0.1-0.8 H EOSINOPHIL # (test code = EO#) 0.07 K/mm3 0.0-0.2 N BASOPHIL # (test code = BA#) 0.09 K/mm3 0.0-0.2 N NUCLEATED RBC # (test code = 0.02 K/mm3 0.0-0.1 N NRBC#) DIFFERENTIAL [id number] 04:50:00 Test Item Value Reference Range Interpretation Comments RBC MORPHOLOGY REQUIRED (test code = RBCM) PLATELET ESTIMATE (test code = PLTEST) ADEQUATE PLATELET MORPHOLOGY (test code = NORMAL PLTMORPH) GLUCOSE BEDSIDE [id number] 20:04:00 Test Item Value Reference Range Interpretation Comments GLUCOSE BEDSIDE TESTING (test code 112 MG/DL 60-99 H = GLUBED) ARTERIAL BLOOD [id number] 17:50:00 Test Item Value Reference Range Interpretation Comments ARTERIAL BLOOD GAS PH (test code 7.46 mmHg 7.35-7.45 H = PHA) ARTERIAL BLOOD GAS PCO2 (test 37.4 mmHg 35.0-45.0 N code = PCO2A) ARTERIAL BLOOD GAS PO2 (test 113.3 mmol/L 80.0-100.0 H code = PO2A) BICARBONATE TOTAL HCO3 (test 25.8 mmol/L 20.0-26.0 N code = HCO3) BASE EXCESS (test code = STEVEN) 2.1 mmol/L -3.0-3.0 N ABG O2 SATURATION (test code = 98.3 % 95.0-100.0 N SATA) ABG DELIVERY (test code = KAR[place]) VENT ABG VENT MODE (test code = CPAP MODEA) ABG PEEP (test code = PEEPA) 5.0 cmH2O ABG PRESSURE SUPPORT (test code 10 cmH2O = PSABG) ABG TEMPERATURE (test code = 37.0 C >37 TEMPA) ABG SITE (test code = SITEA) AL ALLENS TEST (test code = ALLENS) NA CHECK FIO2 (test code = COHBGFFIO2) 40 % PaO2/[id number] 17:50:00 Test Item Value Reference Range Interpretation Comments PaO2/FiO2 (test code = [id number]) mm/Hg ARTERIAL BLOOD [id number] 17:50:00 Test Item Value Reference Range Interpretation Comments ARTERIAL BLOOD GAS PH (test code 7.46 mmHg 7.35-7.45 H = PHA) ARTERIAL BLOOD GAS PCO2 (test 37.4 mmHg 35.0-45.0 N code = PCO2A) ARTERIAL BLOOD GAS PO2 (test 113.3 mmol/L 80.0-100.0 H code = PO2A) BICARBONATE TOTAL HCO3 (test 25.8 mmol/L 20.0-26.0 N code = HCO3) BASE EXCESS (test code = STEVEN) 2.1 mmol/L -3.0-3.0 N ABG O2 SATURATION (test code = 98.3 % 95.0-100.0 N SATA) ABG DELIVERY (test code = K[place]) VENT ABG VENT MODE (test code = CPAP MODEA) ABG PEEP (test code = PEEPA) 5.0 cmH2O ABG PRESSURE SUPPORT (test code 10 cmH2O = PSABG) ABG TEMPERATURE (test code = 37.0 C >37 TEMPA) ABG SITE (test code = SITEA) AL ALLENS TEST (test code = ALLENS) NA CHECK FIO2 (test code = COHBGFFIO2) 40 % PaO2/[id number] 17:50:00 Test Item Value Reference Range Interpretation Comments PaO2/FiO2 (test code = [id number]) 283.25 mm/Hg GLUCOSE BEDSIDE [id number] 16:16:00 Test Item Value Reference Range Interpretation Comments GLUCOSE BEDSIDE TESTING (test code 102 MG/DL 60-99 H = GLUBED) CBC W/O [id number] 11:57:00 Test Item Value Reference Range Interpretation Comments WHITE BLOOD CELL (test 32.0 K/MM3 3.8-9.8 HH ALEYDA HANLEY MAHENDRA R code = WBC) & READBACK ON 12/28/19 AT 080 6 BY Quan Rosario RED BLOOD CELL (test 3.66 M/MM3 3.58-4.97 N code = RBC) HEMOGLOBIN (test code 10.9 G/DL 11.2-14.9 L = HGB) HEMATOCRIT (test code 33.2 % 33.2-43.5 N = HCT) MEAN CELL VOLUME (test 91 fL 80.7-99.1 N code = MCV) MEAN CELL HGB (test 29.8 pg 27.0-34.1 N code = MCH) MEAN CELL HGB 32.8 % 32.2-35.7 N CONCETRATION (test code = MCHC) RED CELL DISTRIBUTION 16.5 % 12.1-15.2 H WIDTH (test code = RDW) PLATELET COUNT (test 215 K/MM3 129-368 code = PLT) NEUTROPHIL # (test 26.01 K/mm3 2.0-7.6 H code = NT#) IMMATURE GRANULOCYTE # 3.15 x10 3/uL 0-0.03 H (test code = IG#) LYMPHOCYTE # (test 1.38 K/mm3 1.0-3.8 N code = LY#) MONOCYTE # (test code 1.25 K/mm3 0.1-0.8 H = MO#) EOSINOPHIL # (test 0.06 K/mm3 0.0-0.2 N code = EO#) BASOPHIL # (test code 0.15 K/mm3 0.0-0.2 N = BA#) NUCLEATED RBC # (test 0.05 K/mm3 0.0-0.1 N code = NRBC#) DIFFERENTIAL [id number] 11:57:00 Test Item Value Reference Range Interpretation Comments RBC MORPHOLOGY REQUIRED (test code = NORMAL RBCM) ANISOCYTOSIS (test code = ANISO) SLIGHT NONE MACROCYTOSIS (test code = MACR) FEW NONE PLATELET ESTIMATE (test code = ADEQUATE ADEQUATE PLTEST) PLATELET MORPHOLOGY (test code = NORMAL NORMAL PLTMORPH) WBC [id number] 11:57:00 Test Item Value Reference Range Interpretation Comments TOTAL CELLS COUNTED (test code = 130 #CELLS TCC) SEGMENTED NEUTROPHILS (test code = 73.6 % 36.2-73.8 N SEG) BAND NEUTROPHIL (test code = BAND) 14.9 % 0-10 H LYMPHOCYTE (test code = LYMPH) 3.3 % 12.9-45.1 L ATYPICAL LYMPH (test code = 3.3 % 0-0 H ALYMPH) MONOCYTE (test code = MON) 2.5 % 0-11 N METAMYELOCYTE (test code = META) 0.8 % 0-0 H MYELOCYTE (test code = MYELO) 0.8 % 0-0 H PLASMA CELL (test code = GERTRUDIS) 0.8 % 0-0 H [id number] 11:46:00 Test Item Value Reference Range Interpretation Comments VANCOMYCIN (test code = VANCO) 13.8 mcg/ML 5.0-26.0 N UNABLE TO DRAW BLOOD, REASON: CBNNOTIFIED PATIENT CARE STAFF: MOSHE 12/28/19 AT 1048 BY Hannah Busby [facility] BLOOD [id number] 11:19:00 Test Item Value Reference Range Interpretation Comments ARTERIAL BLOOD GAS PH (test code 7.44 mmHg 7.35-7.45 N = PHA) ARTERIAL BLOOD GAS PCO2 (test 33.8 mmHg 35.0-45.0 L code = PCO2A) ARTERIAL BLOOD GAS PO2 (test 111.7 mmol/L 80.0-100.0 H code = PO2A) BICARBONATE TOTAL HCO3 (test 22.5 mmol/L 20.0-26.0 N code = HCO3) BASE EXCESS (test code = STEVEN) -0.8 mmol/L -3.0-3.0 N ABG O2 SATURATION (test code = 98.3 % 95.0-100.0 N SATA) ABG DELIVERY (test code = KAROLINA) CPAP ABG PEEP (test code = PEEPA) 5.0 cmH2O ABG PRESSURE SUPPORT (test code 10 cmH2O = PSABG) ABG TEMPERATURE (test code = 37.0 C >37 TEMPA) ABG SITE (test code = SITEA) AL ALLENS TEST (test code = ALLENS) NA CHECK FIO2 (test code = COHBGFFIO2) 40 % PaO2/[id number] 11:19:00 Test Item Value Reference Range Interpretation Comments PaO2/FiO2 (test code = [id number]) mm/Hg ARTERIAL BLOOD [id number] 11:19:00 Test Item Value Reference Range Interpretation Comments ARTERIAL BLOOD GAS PH (test code 7.44 mmHg 7.35-7.45 N = PHA) ARTERIAL BLOOD GAS PCO2 (test 33.8 mmHg 35.0-45.0 L code = PCO2A) ARTERIAL BLOOD GAS PO2 (test 111.7 mmol/L 80.0-100.0 H code = PO2A) BICARBONATE TOTAL HCO3 (test 22.5 mmol/L 20.0-26.0 N code = HCO3) BASE EXCESS (test code = STEVEN) -0.8 mmol/L -3.0-3.0 N ABG O2 SATURATION (test code = 98.3 % 95.0-100.0 N SATA) ABG DELIVERY (test code = KAROLINA) CPAP ABG PEEP (test code = PEEPA) 5.0 cmH2O ABG PRESSURE SUPPORT (test code 10 cmH2O = PSABG) ABG TEMPERATURE (test code = 37.0 C >37 TEMPA) ABG SITE (test code = SITEA) AL ALLENS TEST (test code = ALLENS) NA CHECK FIO2 (test code = COHBGFFIO2) 40 % PaO2/[id number] 11:19:00 Test Item Value Reference Range Interpretation Comments PaO2/FiO2 (test code = [id number]) 279.25 mm/Hg GLUCOSE BEDSIDE [id number] 10:39:00 Test Item Value Reference Range Interpretation Comments GLUCOSE BEDSIDE TESTING (test code 153 MG/DL 60-99 H = GLUBED) ARTERIAL BLOOD [id number] 10:05:00 Test Item Value Reference Range Interpretation Comments ARTERIAL BLOOD GAS PH (test code 7.49 mmHg 7.35-7.45 H = PHA) ARTERIAL BLOOD GAS PCO2 (test 35.3 mmHg 35.0-45.0 N code = PCO2A) ARTERIAL BLOOD GAS PO2 (test code 83.9 mmol/L 80.0-100.0 N = PO2A) BICARBONATE TOTAL HCO3 (test code 26.3 mmol/L 20.0-26.0 H = HCO3) BASE EXCESS (test code = STEVEN) 3.3 mmol/L -3.0-3.0 H ABG O2 SATURATION (test code = 97.0 % 95.0-100.0 N SATA) ABG DELIVERY (test code = KAROLINA) VENT ABG VENT MODE (test code = MODEA) SIMV ABG VENT RESP RATE (test code = 4.0 /MIN RRA) ABG TIDAL VOLUME (test code = 400 ml TVA) ABG PEEP (test code = PEEPA) 5.0 cmH2O ABG TEMPERATURE (test code = 37.0 C >37 TEMPA) ABG SITE (test code = SITEA) AL ALLENS TEST (test code = ALLENS) NA CHECK FIO2 (test code = COHBGFFIO2) 30 % PaO2/[id number] 10:05:00 Test Item Value Reference Range Interpretation Comments PaO2/FiO2 (test code = [id number]) 279.66 mm/Hg ARTERIAL BLOOD [id number] 10:04:00 Test Item Value Reference Range Interpretation Comments ARTERIAL BLOOD GAS PH (test code 7.49 mmHg 7.35-7.45 H = PHA) ARTERIAL BLOOD GAS PCO2 (test 35.3 mmHg 35.0-45.0 N code = PCO2A) ARTERIAL BLOOD GAS PO2 (test code 83.9 mmol/L 80.0-100.0 N = PO2A) BICARBONATE TOTAL HCO3 (test code 26.3 mmol/L 20.0-26.0 H = HCO3) BASE EXCESS (test code = STEVEN) 3.3 mmol/L -3.0-3.0 H ABG O2 SATURATION (test code = 97.0 % 95.0-100.0 N SATA) ABG DELIVERY (test code = KAROLINA) VENT ABG VENT MODE (test code = MODEA) SIMV ABG VENT RESP RATE (test code = 4.0 /MIN RRA) ABG TIDAL VOLUME (test code = 400 ml TVA) ABG PEEP (test code = PEEPA) 5.0 cmH2O ABG TEMPERATURE (test code = 37.0 C >37 TEMPA) ABG SITE (test code = SITEA) AL ALLENS TEST (test code = ALLENS) NA CHECK FIO2 (test code = COHBGFFIO2) 30 % PaO2/[id number] 10:04:00 Test Item Value Reference Range Interpretation Comments PaO2/FiO2 (test code = [id number]) mm/Hg CBC W/O [id number] 08:07:00 Test Item Value Reference Range Interpretation Comments WHITE BLOOD CELL (test 32.0 K/MM3 3.8-9.8 HH MAYNARD D DAYAN MAHENDRA R code = WBC) & READBACK ON 12/28/19 AT 080 6 BY Quan Rosario RED BLOOD CELL (test 3.66 M/MM3 3.58-4.97 N code = RBC) HEMOGLOBIN (test code 10.9 G/DL 11.2-14.9 L = HGB) HEMATOCRIT (test code 33.2 % 33.2-43.5 N = HCT) MEAN CELL VOLUME (test 91 fL 80.7-99.1 N code = MCV) MEAN CELL HGB (test 29.8 pg 27.0-34.1 N code = MCH) MEAN CELL HGB 32.8 % 32.2-35.7 N CONCETRATION (test code = MCHC) RED CELL DISTRIBUTION 16.5 % 12.1-15.2 H WIDTH (test code = RDW) PLATELET COUNT (test 215 K/MM3 129-368 code = PLT) NEUTROPHIL # (test 26.01 K/mm3 2.0-7.6 H code = NT#) IMMATURE GRANULOCYTE # 3.15 x10 3/uL 0-0.03 H (test code = IG#) LYMPHOCYTE # (test 1.38 K/mm3 1.0-3.8 N code = LY#) MONOCYTE # (test code 1.25 K/mm3 0.1-0.8 H = MO#) EOSINOPHIL # (test 0.06 K/mm3 0.0-0.2 N code = EO#) BASOPHIL # (test code 0.15 K/mm3 0.0-0.2 N = BA#) NUCLEATED RBC # (test 0.05 K/mm3 0.0-0.1 N code = NRBC#) DIFFERENTIAL [id number] 08:07:00 Test Item Value Reference Range Interpretation Comments RBC MORPHOLOGY REQUIRED (test code = RBCM) PLATELET ESTIMATE (test code = PLTEST) ADEQUATE PLATELET MORPHOLOGY (test code = NORMAL PLTMORPH) WBC [id number] 08:07:00 Test Item Value Reference Range Interpretation Comments TOTAL CELLS COUNTED (test code = TCC) #CELLS SEGMENTED NEUTROPHILS (test code = % 36.2-73.8 SEG) LYMPHOCYTE (test code = LYMPH) % 12.9-45.1 MONOCYTE (test code = MON) % 0-11 CBC W/AUTO [id number] 08:07:00 Test Item Value Reference Range Interpretation Comments WHITE BLOOD CELL (test 32.0 K/MM3 3.8-9.8 ALEYDA Bell TO MAHENDRA R code = WBC) & READBACK ON 12/28/19 AT 080 6 BY Quan Rosario RED BLOOD CELL (test 3.66 M/MM3 3.58-4.97 N code = RBC) HEMOGLOBIN (test code 10.9 G/DL 11.2-14.9 L = HGB) HEMATOCRIT (test code 33.2 % 33.2-43.5 N = HCT) MEAN CELL VOLUME (test 91 fL 80.7-99.1 N code = MCV) MEAN CELL HGB (test 29.8 pg 27.0-34.1 N code = MCH) MEAN CELL HGB 32.8 % 32.2-35.7 N CONCETRATION (test code = MCHC) RED CELL DISTRIBUTION 16.5 % 12.1-15.2 H WIDTH (test code = RDW) PLATELET COUNT (test 215 K/MM3 129-368 code = PLT) MEAN PLATELET VOLUME 11.8 fl 7.4-10.4 H (test code = MPV) NEUTROPHIL % (test 81.3 % 43-75 H code = NT%) IMMATURE GRANULOCYTE % 9.8 % 0.0-2.0 H (test code = IG%) LYMPHOCYTE % (test 4.3 % 14-44 L code = LY%) MONOCYTE % (test code 3.9 % 4-13 L = MO%) EOSINOPHIL % (test 0.2 % 0-6 N code = EO%) BASOPHIL % (test code 0.5 % 0-2 N = BA%) NUCLEATED RBC % (test 0.2 % 0-1.0 N code = NRBC%) NEUTROPHIL # (test 26.01 K/mm3 2.0-7.6 H code = NT#) IMMATURE GRANULOCYTE # 3.15 x10 3/uL 0-0.03 H (test code = IG#) LYMPHOCYTE # (test 1.38 K/mm3 1.0-3.8 N code = LY#) MONOCYTE # (test code 1.25 K/mm3 0.1-0.8 H = MO#) EOSINOPHIL # (test 0.06 K/mm3 0.0-0.2 N code = EO#) BASOPHIL # (test code 0.15 K/mm3 0.0-0.2 N = BA#) NUCLEATED RBC # (test 0.05 K/mm3 0.0-0.1 N code = NRBC#) WBC [id number] 08:07:00 Test Item Value Reference Range Interpretation Comments RBC MORPHOLOGY REQUIRED (test code = RBCM) TOTAL CELLS COUNTED (test code = TCC) #CELLS SEGMENTED NEUTROPHILS (test code = % 36.2-73.8 SEG) LYMPHOCYTE (test code = LYMPH) % 12.9-45.1 MONOCYTE (test code = MON) % 0-11 PLATELET ESTIMATE (test code = ADEQUATE PLTEST) PLATELET MORPHOLOGY (test code = NORMAL PLTMORPH) GLUCOSE BEDSIDE [id number] 07:48:00 Test Item Value Reference Range Interpretation Comments GLUCOSE BEDSIDE TESTING (test code 122 MG/DL 60-99 H = GLUBED) GLUCOSE BEDSIDE [id number] 05:14:00 Test Item Value Reference Range Interpretation Comments GLUCOSE BEDSIDE TESTING (test code 131 MG/DL 60-99 H = GLUBED) GLUCOSE BEDSIDE [id number] 05:14:00 Test Item Value Reference Range Interpretation Comments GLUCOSE BEDSIDE TESTING (test code 115 MG/DL 60-99 H = GLUBED) GLUCOSE BEDSIDE [id number] 05:14:00 Test Item Value Reference Range Interpretation Comments GLUCOSE BEDSIDE TESTING (test code 114 MG/DL 60-99 H = GLUBED) GLUCOSE BEDSIDE [id number] 05:12:00 Test Item Value Reference Range Interpretation Comments GLUCOSE BEDSIDE TESTING (test code 156 MG/DL 60-99 H = GLUBED) GLUCOSE BEDSIDE [id number] 05:12:00 Test Item Value Reference Range Interpretation Comments GLUCOSE BEDSIDE TESTING (test code 161 MG/DL 60-99 H = GLUBED) GLUCOSE BEDSIDE [id number] 05:12:00 Test Item Value Reference Range Interpretation Comments GLUCOSE BEDSIDE TESTING (test code = 84 MG/DL 60-99 N GLUBED) GLUCOSE BEDSIDE [id number] 05:12:00 Test Item Value Reference Range Interpretation Comments GLUCOSE BEDSIDE TESTING (test code 103 MG/DL 60-99 H = GLUBED) GLUCOSE BEDSIDE [id number] 05:12:00 Test Item Value Reference Range Interpretation Comments GLUCOSE BEDSIDE TESTING (test code 175 MG/DL 60-99 H = GLUBED) GLUCOSE BEDSIDE [id number] 05:11:00 Test Item Value Reference Range Interpretation Comments GLUCOSE BEDSIDE TESTING (test code 131 MG/DL 60-99 H = GLUBED) COLON SEGMENT RESEC. NOT [id number] 22:42:00 Test Item Value Reference Range Interpretation Comments COLON SEGMENT RESEC. NOT TUMOR (test code = COLONR) RUN DATE: 12/27/19 [facility] PAGE 1 RUN TIME: 2 Specimen Inquiry RUN USER: INTERFACE PATIENT: JORGE A HORTA LOC: JEF U #: [id number] AGE/SX: 79/F ROOM: [facility] RE11/26/19REG DR: Tevin Samuels MD : 38 BED: A DIS: STATUS: ADM IN TLOC: SPEC #: [id number]:COCHRAN:[id number] RECD: 12/24/199 STATUS: DEVORA ALLEN #: [id number] KEENAN: 12/22/19-[address] [facility] [address]: Rashid Son MD ENTERED: 12/24/19-105 SP TYPE: COLONR OTHR DR: Self Referred Sarah Ovalles DO R2 Ronaldo,Home Morrissey MD, MD R1 Franck,Odalys CORREIA R1 Adalberto,Donna Sutherland,Ramu Jordan,Raji CORREIA R1 Shell,Jose Alfredo Solis,Andrei Conner,Reuben Wilder,Jason Joseph,Juan Dixon,Ezequiel Smith,Georgina Claudio,Georgette CORREIAORDERED: SURG PATH LVL 5 CODES: [id number] - SMALL INTESTINE ISCHEMIA, NOS [id number] - SMALL INTESTINE PERFORATION, NO [id number] - SMALL INTESTINE NECROSIS, NOS [id number] - COLON, NOS [id number] - COLON, NOS EXCISION, NOS [id number] - TRANSVERSE COLO [id number] - LYMPH NODE, NOS COPIES TO: Self Referred Sarah Ovalles DO R2 [address] [place] [address] Joe Higgins MD [address] [place] [address] Home Bryant MD R1 [address] [place] [address] CONTINUED ON NEXT PAGE RUN DATE: 12/27/19 [place] - LAB PAGE 2 RUN TIME: 2241 Specimen Inquiry RUN USER: INTERFACE SPEC #: [id number]:COCHRAN:[id number] PATIENT: JORGE A HORTA #[id number] (Continued) --- COPIES TO: (Continued) Odalys Juárez MD R1 [address] [id number] [place] [address] [facility] [address] [place] [address] Ramu Sutherland MD [address] [facility] [address] [place] [address] Raji Jordan MD R1 [address] [id number] [place] G[place] [address] [facility] [place] [address] Rashid Son MD [address] [facility] [place] [address] @[employer] Andrei Solis MD [address] [place] [address] [place] [address] [facility] [address] [place] [address] Jason Wilder MD [address] [facility] [address] [place] [address] [place] [address] [facility] [address] [place] [address] CONTINUED ON NEXT PAGE RUN DATE: 12/27/19 [place] - LAB PAGE 3 RUN TIME: 2 Specimen Inquiry RUN USER: INTERFACE SPEC #: [id number] PATIENT: JORGE A HORTA #[id number] (Continued) --- COPIES TO: (Continued) Ezequiel Dixon [address] [place] [address] Georgina Smith MD [facility] [address] [place] [address] Georgette Claudio MD [address] [facility] [address] [place] [address] PROCEDURES: SURG PATH LVL 5 (12/24/19-1050) TISSUES: A. COLON, NOS - RIGHT AND TRANSVERSE COLON CPT CODES CPT CODE(S): 51121 , , , , , , FINAL DIAGNOSIS Right and transverse colon, resection: COLON AND SMALL INTESTINE WITH MUCOSAL ISCHEMIA, TRANSMURAL NECROSIS AND FEATURES CONSISTENT WITH PERFORATION ACUTE SEROSITIS SEROSAL ADHESIONS DISTAL MARGIN MARGIN OF LARGEST SEGMENT NECROTIC REMAINDER OF MARGINS VIABLE WITH ACUTE SEROSITIS TWO BENIGN LYMPH NODES GROSS DESCRIPTION Right and transverse colon. Received are three separate pieces of colon. The shortest segment measures 12 cm in length and has a circumference of 5 cm. It is grossly unremarkable. The stapled ends are grossly free of lesions. Sections of margin submitted as A1 and A2 and unremarkable bowel submitted as A3. The second segment measures 25 cm in length and has a circumference of 5.5 cm. The mucosal surface has slight erosion in the mid segment. No obvious area of perforation is identified. The wall is thin at one margin of resection. The remainder of the mucosal surface is unremarkable. There is drake-white exudate on the CONTINUED ON NEXT PAGE RUN DATE: 12/27/19 [facility] LAB PAGE 4 RUN TIME: 2241 Specimen Inquiry RUN USER: INTERFACE SPEC #: [id number] PATIENT: HORTAJORGE A #[id number] (Continued) --- GROSS DESCRIPTION (Continued) serosal surface. The segment of bowel submitted as follows: A4 - margin with thin wall; A5 - opposite margin; A6 and A7 - area of erosion; A8 - serosal surface exudate. The adipose tissue is sectioned to reveal two nodes, measuring 0.5 and 0.6 cm. They are submitted as A9. The third larger segment is right colon and small bowel with pericolonic adipose tissue. It has a total length of 70 cm. The colon measures 40 cm in length with a maximum circumference of 8.5 cm. The small bowel segment measures 30 cm in length with a maximum circumference of 5.5 cm. There are multiple areas of perforation identified in the colon and small bowel, surrounded by gangrenous non-viable bowel and green-drake exudate. The colon gangrenous area extends 11 cm in length and located 3.5 cm from the distal margin of resection. The area of perforation shows a thin wall with dull aguilar-green surrounding exudate. The appendix is grossly absent. The small bowel segment has an area of gangrenous perforation, measuring 12.5 cm in length and located 18 cm from the margin of resection. The remainder of the colon and small bowel mucosa is hemorrhagic and eroded. No masses are grossly identified. Sections are submitted. Section code: A10 Proximal margin of resection A11-A12 Distal margin of resection A13-A15 Sections of non-viable colon A16 Ileocecal valve A17-A20 Areas of gangrenous small bowel A21 Normal appearing small bowel The adipose tissue is sectioned to reveal a node, measuring 1.5 cm. It is sectioned and submitted as A22. /tc/nr MICROSCOPIC DESCRIPTION Right and transverse colon. The microscopic description is incorporated into the final diagnosis. /elizabeth Signed SIGNATURE ON FILE Xander Marshall 12/27/19 [id number] END OF REPORT ARTERIAL BLOOD [id number] 22:17:00 Test Item Value Reference Range Interpretation Comments ARTERIAL BLOOD GAS PH (test code 7.47 mmHg 7.35-7.45 H = PHA) ARTERIAL BLOOD GAS PCO2 (test 36.3 mmHg 35.0-45.0 N code = PCO2A) ARTERIAL BLOOD GAS PO2 (test code 75.5 mmol/L 80.0-100.0 L = PO2A) BICARBONATE TOTAL HCO3 (test code 25.8 mmol/L 20.0-26.0 N = HCO3) BASE EXCESS (test code = STEVEN) 2.4 mmol/L -3.0-3.0 N ABG O2 SATURATION (test code = 96.0 % 95.0-100.0 N SATA) ABG DELIVERY (test code = KAROLINA) VENT ABG VENT MODE (test code = MODEA) CPAP ABG PEEP (test code = PEEPA) 5.0 cmH2O ABG PRESSURE SUPPORT (test code = 12 cmH2O PSABG) ABG TEMPERATURE (test code = 37.0 C >37 TEMPA) ABG SITE (test code = SITEA) AL ALLENS TEST (test code = ALLENS) N CHECK FIO2 (test code = COHBGFFIO2) 30 % PaO2/[id number] 22:17:00 Test Item Value Reference Range Interpretation Comments PaO2/FiO2 (test code = [id number]) mm/Hg ARTERIAL BLOOD [id number] 22:17:00 Test Item Value Reference Range Interpretation Comments ARTERIAL BLOOD GAS PH (test code 7.47 mmHg 7.35-7.45 H = PHA) ARTERIAL BLOOD GAS PCO2 (test 36.3 mmHg 35.0-45.0 N code = PCO2A) ARTERIAL BLOOD GAS PO2 (test code 75.5 mmol/L 80.0-100.0 L = PO2A) BICARBONATE TOTAL HCO3 (test code 25.8 mmol/L 20.0-26.0 N = HCO3) BASE EXCESS (test code = STEVEN) 2.4 mmol/L -3.0-3.0 N ABG O2 SATURATION (test code = 96.0 % 95.0-100.0 N SATA) ABG DELIVERY (test code = [place]) VENT ABG VENT MODE (test code = MODEA) CPAP ABG PEEP (test code = PEEPA) 5.0 cmH2O ABG PRESSURE SUPPORT (test code = 12 cmH2O PSABG) ABG TEMPERATURE (test code = 37.0 C >37 TEMPA) ABG SITE (test code = SITEA) AL ALLENS TEST (test code = ALLENS) N CHECK FIO2 (test code = COHBGFFIO2) 30 % PaO2/[id number] 22:17:00 Test Item Value Reference Range Interpretation Comments PaO2/FiO2 (test code = [id number]) 251.66 mm/Hg ARTERIAL BLOOD [id number] 16:54:00 Test Item Value Reference Range Interpretation Comments ARTERIAL BLOOD GAS PH (test code 7.48 mmHg 7.35-7.45 H = PHA) ARTERIAL BLOOD GAS PCO2 (test 32.4 mmHg 35.0-45.0 L code = PCO2A) ARTERIAL BLOOD GAS PO2 (test code 93.1 mmol/L 80.0-100.0 N = PO2A) BICARBONATE TOTAL HCO3 (test code 23.4 mmol/L 20.0-26.0 N = HCO3) BASE EXCESS (test code = STEVEN) 0.7 mmol/L -3.0-3.0 N ABG O2 SATURATION (test code = 97.6 % 95.0-100.0 N SATA) ABG DELIVERY (test code = [place]) CPAP ABG VENT MODE (test code = MODEA) CPAP ABG PEEP (test code = PEEPA) 5.0 cmH2O ABG PRESSURE SUPPORT (test code = 10 cmH2O PSABG) ABG TEMPERATURE (test code = 37.0 C >37 TEMPA) ABG SITE (test code = SITEA) AL ALLENS TEST (test code = ALLENS) NA CHECK FIO2 (test code = COHBGFFIO2) 30 % PaO2/[id number] 16:54:00 Test Item Value Reference Range Interpretation Comments PaO2/FiO2 (test code = [id number]) mm/Hg ARTERIAL BLOOD [id number] 16:54:00 Test Item Value Reference Range Interpretation Comments ARTERIAL BLOOD GAS PH (test code 7.48 mmHg 7.35-7.45 H = PHA) ARTERIAL BLOOD GAS PCO2 (test 32.4 mmHg 35.0-45.0 L code = PCO2A) ARTERIAL BLOOD GAS PO2 (test code 93.1 mmol/L 80.0-100.0 N = PO2A) BICARBONATE TOTAL HCO3 (test code 23.4 mmol/L 20.0-26.0 N = HCO3) BASE EXCESS (test code = STEVEN) 0.7 mmol/L -3.0-3.0 N ABG O2 SATURATION (test code = 97.6 % 95.0-100.0 N SATA) ABG DELIVERY (test code = [place]) CPAP ABG VENT MODE (test code = MODEA) CPAP ABG PEEP (test code = PEEPA) 5.0 cmH2O ABG PRESSURE SUPPORT (test code = 10 cmH2O PSABG) ABG TEMPERATURE (test code = 37.0 C >37 TEMPA) ABG SITE (test code = SITEA) AL ALLENS TEST (test code = ALLENS) NA CHECK FIO2 (test code = COHBGFFIO2) 30 % PaO2/[id number] 16:54:00 Test Item Value Reference Range Interpretation Comments PaO2/FiO2 (test code = [id number]) 310.33 mm/Hg ARTERIAL BLOOD [id number] 14:42:00 Test Item Value Reference Range Interpretation Comments ARTERIAL BLOOD GAS PH (test code 7.49 mmHg 7.35-7.45 H = PHA) ARTERIAL BLOOD GAS PCO2 (test 33.8 mmHg 35.0-45.0 L code = PCO2A) ARTERIAL BLOOD GAS PO2 (test code 81.2 mmol/L 80.0-100.0 N = PO2A) BICARBONATE TOTAL HCO3 (test code 24.9 mmol/L 20.0-26.0 N = HCO3) BASE EXCESS (test code = STEVEN) 2.1 mmol/L -3.0-3.0 N ABG O2 SATURATION (test code = 96.8 % 95.0-100.0 N SATA) ABG DELIVERY (test code = [place]) VENT ABG VENT MODE (test code = MODEA) SIMV ABG VENT RESP RATE (test code = 4.0 /MIN RRA) ABG TIDAL VOLUME (test code = 400 ml TVA) ABG PEEP (test code = PEEPA) 5.0 cmH2O ABG PRESSURE SUPPORT (test code = 10 cmH2O PSABG) ABG TEMPERATURE (test code = 37.0 C >37 TEMPA) ABG SITE (test code = SITEA) AL ALLENS TEST (test code = ALLENS) NA CHECK FIO2 (test code = COHBGFFIO2) 30 % PaO2/[id number] 14:42:00 Test Item Value Reference Range Interpretation Comments PaO2/FiO2 (test code = [id number]) mm/Hg ARTERIAL BLOOD [id number] 14:42:00 Test Item Value Reference Range Interpretation Comments ARTERIAL BLOOD GAS PH (test code 7.49 mmHg 7.35-7.45 H = PHA) ARTERIAL BLOOD GAS PCO2 (test 33.8 mmHg 35.0-45.0 L code = PCO2A) ARTERIAL BLOOD GAS PO2 (test code 81.2 mmol/L 80.0-100.0 N = PO2A) BICARBONATE TOTAL HCO3 (test code 24.9 mmol/L 20.0-26.0 N = HCO3) BASE EXCESS (test code = STEVEN) 2.1 mmol/L -3.0-3.0 N ABG O2 SATURATION (test code = 96.8 % 95.0-100.0 N SATA) ABG DELIVERY (test code = [place]) VENT ABG VENT MODE (test code = MODEA) SIMV ABG VENT RESP RATE (test code = 4.0 /MIN RRA) ABG TIDAL VOLUME (test code = 400 ml TVA) ABG PEEP (test code = PEEPA) 5.0 cmH2O ABG PRESSURE SUPPORT (test code = 10 cmH2O PSABG) ABG TEMPERATURE (test code = 37.0 C >37 TEMPA) ABG SITE (test code = SITEA) AL ALLENS TEST (test code = ALLENS) NA CHECK FIO2 (test code = COHBGFFIO2) 30 % PaO2/[id number] 14:42:00 Test Item Value Reference Range Interpretation Comments PaO2/FiO2 (test code = [id number]) 270.66 mm/Hg CBC W/O [id number] 14:26:00 Test Item Value Reference Range Interpretation Comments WHITE BLOOD CELL (test 30.9 K/MM3 3.8-9.8 MAYNARD D TO Luc P code = WBC) & READBACK ON 12/27/19 AT 072 0 BY James Bean RED BLOOD CELL (test 3.87 M/MM3 3.58-4.97 code = RBC) HEMOGLOBIN (test code 11.4 G/DL 11.2-14.9 N = HGB) HEMATOCRIT (test code 35.2 % 33.2-43.5 = HCT) MEAN CELL VOLUME (test 91 fL 80.7-99.1 N code = MCV) MEAN CELL HGB (test 29.5 pg 27.0-34.1 N code = MCH) MEAN CELL HGB 32.4 % 32.2-35.7 N CONCETRATION (test code = MCHC) RED CELL DISTRIBUTION 16.8 % 12.1-15.2 H WIDTH (test code = RDW) PLATELET COUNT (test 171 K/MM3 129-368 code = PLT) NEUTROPHIL # (test 25.50 K/mm3 2.0-7.6 H code = NT#) IMMATURE GRANULOCYTE # 2.63 x10 3/uL 0-0.03 H (test code = IG#) LYMPHOCYTE # (test 1.38 K/mm3 1.0-3.8 N code = LY#) MONOCYTE # (test code 1.33 K/mm3 0.1-0.8 H = MO#) EOSINOPHIL # (test 0.07 K/mm3 0.0-0.2 N code = EO#) BASOPHIL # (test code 0.02 K/mm3 0.0-0.2 N = BA#) NUCLEATED RBC # (test 0.06 K/mm3 0.0-0.1 N code = NRBC#) GAVE TUBES TO JUVENCBNDIFFERENTIAL [id number] 14:26:00 Test Item Value Reference Range Interpretation Comments RBC MORPHOLOGY REQUIRED (test code = NORMAL RBCM) ANISOCYTOSIS (test code = ANISO) SLIGHT NONE PLATELET ESTIMATE (test code = ADEQUATE ADEQUATE PLTEST) PLATELET MORPHOLOGY (test code = NORMAL NORMAL PLTMORPH) GAVE TUBES TO JUVENCBNWBC [id number] 14:26:00 Test Item Value Reference Range Interpretation Comments TOTAL CELLS COUNTED (test code = 130 #CELLS TCC) SEGMENTED NEUTROPHILS (test code = 88.4 % 36.2-73.8 H SEG) BAND NEUTROPHIL (test code = BAND) 0.8 % 0-10 N LYMPHOCYTE (test code = LYMPH) 2.5 % 12.9-45.1 L ATYPICAL LYMPH (test code = 0.0 % 0-0 N ALYMPH) MONOCYTE (test code = MON) 6.7 % 0-11 N EOSINOPHIL (test code = EOS) 0.8 % 1-7 L METAMYELOCYTE (test code = META) 0.8 % 0-0 H GAVE TUBES TO JUVENCBNARTERIAL BLOOD [id number] 14:12:00 Test Item Value Reference Range Interpretation Comments ARTERIAL BLOOD GAS PH 7.50 mmHg 7.35-7.45 H (test code = PHA) ARTERIAL BLOOD GAS 32.9 mmHg 35.0-45.0 L PCO2 (test code = PCO2A) ARTERIAL BLOOD GAS PO2 68.0 mmol/L 80.0-100.0 L (test code = PO2A) BICARBONATE TOTAL HCO3 25.2 mmol/L 20.0-26.0 N (test code = HCO3) BASE EXCESS (test code 2.7 mmol/L -3.0-3.0 N = STEVEN) ABG O2 SATURATION 95.2 % 95.0-100.0 N All critic al values (test code = SATA) report to and readback by DANILO Napoles D by HERON at 12/27/2019 2:11 :32 PM ABG DELIVERY (test VENT code = [place]) ABG VENT MODE (test SIMV code = MODEA) ABG VENT RESP RATE 4.0 /MIN (test code = RRA) ABG TIDAL VOLUME (test 400 ml code = TVA) ABG PEEP (test code = 5.0 cmH2O PEEPA) ABG TEMPERATURE (test 37.0 C >37 code = TEMPA) ABG SITE (test code = AL SITEA) ALLENS TEST (test code NA CHECK = ALLENS) FIO2 (test code = 30 % COHBGFFIO2) PaO2/[id number] 14:12:00 Test Item Value Reference Range Interpretation Comments PaO2/FiO2 (test code = [id number]) mm/Hg ARTERIAL BLOOD [id number] 14:12:00 Test Item Value Reference Range Interpretation Comments ARTERIAL BLOOD GAS PH 7.50 mmHg 7.35-7.45 H (test code = PHA) ARTERIAL BLOOD GAS 32.9 mmHg 35.0-45.0 L PCO2 (test code = PCO2A) ARTERIAL BLOOD GAS PO2 68.0 mmol/L 80.0-100.0 L (test code = PO2A) BICARBONATE TOTAL HCO3 25.2 mmol/L 20.0-26.0 N (test code = HCO3) BASE EXCESS (test code 2.7 mmol/L -3.0-3.0 N = STEVEN) ABG O2 SATURATION 95.2 % 95.0-100.0 N All critic al values (test code = SATA) report to and readback by DANILO Bell by HERON at 12/27/2019 2:11 :32 PM ABG DELIVERY (test VENT code = [place]) ABG VENT MODE (test SIMV code = MODEA) ABG VENT RESP RATE 4.0 /MIN (test code = RRA) ABG TIDAL VOLUME (test 400 ml code = TVA) ABG PEEP (test code = 5.0 cmH2O PEEPA) ABG TEMPERATURE (test 37.0 C >37 code = TEMPA) ABG SITE (test code = AL SITEA) ALLENS TEST (test code NA CHECK = ALLENS) FIO2 (test code = 30 % COHBGFFIO2) PaO2/[id number] 14:12:00 Test Item Value Reference Range Interpretation Comments PaO2/FiO2 (test code = [id number]) 226.66 mm/Hg GLUCOSE BEDSIDE [id number] 13:23:00 Test Item Value Reference Range Interpretation Comments GLUCOSE BEDSIDE TESTING (test code 122 MG/DL 60-99 H = GLUBED) ARTERIAL BLOOD [id number] 12:31:00 Test Item Value Reference Range Interpretation Comments ARTERIAL BLOOD GAS PH 7.44 mmHg 7.35-7.45 N (test code = PHA) ARTERIAL BLOOD GAS PCO2 29.2 mmHg 35.0-45.0 LL (test code = PCO2A) ARTERIAL BLOOD GAS PO2 73.8 mmol/L 80.0-100.0 L (test code = PO2A) BICARBONATE TOTAL HCO3 19.5 mmol/L 20.0-26.0 L (test code = HCO3) BASE EXCESS (test code -3.2 mmol/L -3.0-3.0 L = STEVEN) ABG O2 SATURATION (test 95.6 % 95.0-100.0 N All critical values code = SATA) report to and readback by Dr Carson by ARABELLA SALEEM at 12/27/2019 12:25:43 PM ABG DELIVERY (test code VENT = [place]) ABG TEMPERATURE (test 37.0 C >37 code = TEMPA) ABG SITE (test code = AL SITEA) ALLENS TEST (test code NA CHECK = ALLENS) FIO2 (test code = 24 % COHBGFFIO2) PaO2/[id number] 12:31:00 Test Item Value Reference Range Interpretation Comments PaO2/FiO2 (test code = [id number]) mm/Hg ARTERIAL BLOOD [id number] 12:31:00 Test Item Value Reference Range Interpretation Comments ARTERIAL BLOOD GAS PH 7.44 mmHg 7.35-7.45 N (test code = PHA) ARTERIAL BLOOD GAS PCO2 29.2 mmHg 35.0-45.0 LL (test code = PCO2A) ARTERIAL BLOOD GAS PO2 73.8 mmol/L 80.0-100.0 L (test code = PO2A) BICARBONATE TOTAL HCO3 19.5 mmol/L 20.0-26.0 L (test code = HCO3) BASE EXCESS (test code -3.2 mmol/L -3.0-3.0 L = STEVEN) ABG O2 SATURATION (test 95.6 % 95.0-100.0 N All critical values code = SATA) report to and readback by Dr Carson by ARABELLA SALEEM at 12/27/2019 12:25:43 PM ABG DELIVERY (test code VENT = [place]) ABG TEMPERATURE (test 37.0 C >37 code = TEMPA) [facility] ALLENS TEST (test code NA CHECK = ALLENS) FIO2 (test code = 24 % COHBGFFIO2) PaO2/[id number] 12:31:00 Test Item Value Reference Range Interpretation Comments PaO2/FiO2 (test code = [id number]) 307.50 mm/Hg GLUCOSE BEDSIDE [id number] 12:00:00 Test Item Value Reference Range Interpretation Comments GLUCOSE BEDSIDE TESTING (test code 128 MG/DL 60-99 H = GLUBED) ARTERIAL BLOOD [id number] 10:42:00 Test Item Value Reference Range Interpretation Comments ARTERIAL BLOOD GAS PH (test code 7.43 mmHg 7.35-7.45 N = PHA) ARTERIAL BLOOD GAS PCO2 (test 33.5 mmHg 35.0-45.0 L code = PCO2A) ARTERIAL BLOOD GAS PO2 (test code 83.5 mmol/L 80.0-100.0 N = PO2A) BICARBONATE TOTAL HCO3 (test code 21.8 mmol/L 20.0-26.0 N = HCO3) BASE EXCESS (test code = STEVEN) -1.6 mmol/L -3.0-3.0 N ABG O2 SATURATION (test code = 96.6 % 95.0-100.0 N SATA) ABG DELIVERY (test code = [place]) VENT ABG VENT MODE (test code = MODEA) SIMV ABG VENT RESP RATE (test code = 8.0 /MIN RRA) ABG TIDAL VOLUME (test code = 400 ml TVA) ABG PEEP (test code = PEEPA) 5.0 cmH2O ABG TEMPERATURE (test code = 37.0 C >37 TEMPA) ABG SITE (test code = SITEA) AL ALLENS TEST (test code = ALLENS) NA CHECK FIO2 (test code = COHBGFFIO2) 24 % PaO2/[id number] 10:42:00 Test Item Value Reference Range Interpretation Comments PaO2/FiO2 (test code = [id number]) mm/Hg ARTERIAL BLOOD [id number] 10:42:00 Test Item Value Reference Range Interpretation Comments ARTERIAL BLOOD GAS PH (test code 7.43 mmHg 7.35-7.45 N = PHA) ARTERIAL BLOOD GAS PCO2 (test 33.5 mmHg 35.0-45.0 L code = PCO2A) ARTERIAL BLOOD GAS PO2 (test code 83.5 mmol/L 80.0-100.0 N = PO2A) BICARBONATE TOTAL HCO3 (test code 21.8 mmol/L 20.0-26.0 N = HCO3) BASE EXCESS (test code = STEVEN) -1.6 mmol/L -3.0-3.0 N ABG O2 SATURATION (test code = 96.6 % 95.0-100.0 N SATA) ABG DELIVERY (test code = [place]) VENT ABG VENT MODE (test code = MODEA) SIMV ABG VENT RESP RATE (test code = 8.0 /MIN RRA) ABG TIDAL VOLUME (test code = 400 ml TVA) ABG PEEP (test code = PEEPA) 5.0 cmH2O ABG TEMPERATURE (test code = 37.0 C >37 TEMPA) ABG SITE (test code = SITEA) AL ALLENS TEST (test code = ALLENS) NA CHECK FIO2 (test code = COHBGFFIO2) 24 % PaO2/[id number] 10:42:00 Test Item Value Reference Range Interpretation Comments PaO2/FiO2 (test code = [id number]) 347.91 mm/Hg ARTERIAL BLOOD [id number] 09:30:00 Test Item Value Reference Range Interpretation Comments ARTERIAL BLOOD GAS PH (test code 7.43 mmHg 7.35-7.45 N = PHA) ARTERIAL BLOOD GAS PCO2 (test 34.9 mmHg 35.0-45.0 L code = PCO2A) ARTERIAL BLOOD GAS PO2 (test code 75.7 mmol/L 80.0-100.0 L = PO2A) BICARBONATE TOTAL HCO3 (test code 22.7 mmol/L 20.0-26.0 N = HCO3) BASE EXCESS (test code = STEVEN) -0.9 mmol/L -3.0-3.0 N ABG O2 SATURATION (test code = 95.6 % 95.0-100.0 N SATA) ABG DELIVERY (test code = [place]) VENT ABG VENT MODE (test code = MODEA) SIMV ABG VENT RESP RATE (test code = 10.0 /MIN RRA) ABG TIDAL VOLUME (test code = 400 ml TVA) ABG PEEP (test code = PEEPA) 5.0 cmH2O ABG PRESSURE SUPPORT (test code = 10 cmH2O PSABG) ABG TEMPERATURE (test code = 37.0 C >37 TEMPA) ABG SITE (test code = SITEA) AL ALLENS TEST (test code = ALLENS) NA CHECK FIO2 (test code = COHBGFFIO2) 24 % PaO2/[id number] 09:30:00 Test Item Value Reference Range Interpretation Comments PaO2/FiO2 (test code = [id number]) mm/Hg ARTERIAL BLOOD [id number] 09:30:00 Test Item Value Reference Range Interpretation Comments ARTERIAL BLOOD GAS PH (test code 7.43 mmHg 7.35-7.45 N = PHA) ARTERIAL BLOOD GAS PCO2 (test 34.9 mmHg 35.0-45.0 L code = PCO2A) ARTERIAL BLOOD GAS PO2 (test code 75.7 mmol/L 80.0-100.0 L = PO2A) BICARBONATE TOTAL HCO3 (test code 22.7 mmol/L 20.0-26.0 N = HCO3) BASE EXCESS (test code = STEVEN) -0.9 mmol/L -3.0-3.0 N ABG O2 SATURATION (test code = 95.6 % 95.0-100.0 N SATA) ABG DELIVERY (test code = [place]) VENT ABG VENT MODE (test code = MODEA) SIMV ABG VENT RESP RATE (test code = 10.0 /MIN RRA) ABG TIDAL VOLUME (test code = 400 ml TVA) ABG PEEP (test code = PEEPA) 5.0 cmH2O ABG PRESSURE SUPPORT (test code = 10 cmH2O PSABG) ABG TEMPERATURE (test code = 37.0 C >37 TEMPA) ABG SITE (test code = SITEA) AL ALLENS TEST (test code = ALLENS) NA CHECK FIO2 (test code = COHBGFFIO2) 24 % PaO2/[id number] 09:30:00 Test Item Value Reference Range Interpretation Comments PaO2/FiO2 (test code = [id number]) 315.41 mm/Hg BASIC METABOLIC [id number] 07:27:00 Test Item Value Reference Range Interpretation Comments SODIUM (test code = 137 MMOL/L 137-145 N NA) POTASSIUM (test code = 4.4 MMOL/L 3.5-5.1 N K) CHLORIDE (test code = 109 MMOL/L 98-107 H CL) CARBON DIOXIDE (test 24 MMOL/L 22-30 N code = CO2) GLUCOSE (test code = 115 MG/DL 74-106 H GLU) BLOOD UREA NITROGEN 50 MG/DL 7-17 H (test code = BUN) GLOMERULAR FILTRATION > 60 Report ing units: RATE (test code = GFR) ml/mi n/1.73 m2 (Modified MDRD Formula)Referen ce Range: > or = 6 0 ml/min/1.73 m2 CREATININE (test code 0.70 MG/DL 0.52-1.04 N = CREAT) CALCIUM (test code = 8.4 MG/DL 8.4-10.2 N CA) GAVE TUBES TO [id number] 07:27:00 Test Item Value Reference Range Interpretation Comments PHOSPHOROUS (test code = PHOS) 4.2 MG/DL 2.5-4.5 N GAVE TUBES TO [id number] 07:27:00 Test Item Value Reference Range Interpretation Comments MAGNESIUM (test code = MAG) 2.0 MG/DL 1.6-2.3 N GAVE TUBES TO JUVENCBNBASIC METABOLIC [id number] 07:26:00 Test Item Value Reference Range Interpretation Comments SODIUM (test code = 137 MMOL/L 137-145 N NA) POTASSIUM (test code = 4.4 MMOL/L 3.5-5.1 N K) CHLORIDE (test code = 109 MMOL/L 98-107 H CL) CARBON DIOXIDE (test 24 MMOL/L 22-30 N code = CO2) GLUCOSE (test code = 115 MG/DL 74-106 H GLU) BLOOD UREA NITROGEN 50 MG/DL 7-17 H (test code = BUN) GLOMERULAR FILTRATION > 60 Report ing units: RATE (test code = GFR) ml/mi n/1.73 m2 (Modified MDRD Formula)Referen ce Range: > or = 6 0 ml/min/1.73 m2 CREATININE (test code 0.70 MG/DL 0.52-1.04 N = CREAT) CALCIUM (test code = MG/DL 8.7-9.7 CA) GAVE TUBES TO [id number] 07:26:00 Test Item Value Reference Range Interpretation Comments PHOSPHOROUS (test code = PHOS) MG/DL 2.5-4.5 GAVE TUBES TO [id number] 07:26:00 Test Item Value Reference Range Interpretation Comments MAGNESIUM (test code = MAG) MG/DL 1.6-2.3 GAVE TUBES TO [facility] METABOLIC [id number] 07:23:00 Test Item Value Reference Range Interpretation Comments SODIUM (test code = NA) 137 MMOL/L 137-145 N POTASSIUM (test code = K) 4.4 MMOL/L 3.5-5.1 N CHLORIDE (test code = CL) 109 MMOL/L 98-107 H CARBON DIOXIDE (test code = CO2) MMOL/L 22-30 GLUCOSE (test code = GLU) MG/DL 74-106 BLOOD UREA NITROGEN (test code = MG/DL 7-17 BUN) GLOMERULAR FILTRATION RATE (test code = GFR) CREATININE (test code = CREAT) MG/DL 0.52-1.04 CALCIUM (test code = CA) MG/DL 8.7-9.7 GAVE TUBES TO [id number] 07:23:00 Test Item Value Reference Range Interpretation Comments PHOSPHOROUS (test code = PHOS) MG/DL 2.5-4.5 GAVE TUBES TO [id number] 07:23:00 Test Item Value Reference Range Interpretation Comments MAGNESIUM (test code = MAG) MG/DL 1.6-2.3 GAVE TUBES TO JUVENCBNCBC W/O [id number] 07:20:00 Test Item Value Reference Range Interpretation Comments WHITE BLOOD CELL (test 30.9 K/MM3 3.8-9.8 HH MAYNARD D TO Luc P code = WBC) & READBACK ON 12/27/19 AT 072 0 BY James Bean RED BLOOD CELL (test 3.87 M/MM3 3.58-4.97 code = RBC) HEMOGLOBIN (test code 11.4 G/DL 11.2-14.9 N = HGB) HEMATOCRIT (test code 35.2 % 33.2-43.5 = HCT) MEAN CELL VOLUME (test 91 fL 80.7-99.1 N code = MCV) MEAN CELL HGB (test 29.5 pg 27.0-34.1 N code = MCH) MEAN CELL HGB 32.4 % 32.2-35.7 N CONCETRATION (test code = MCHC) RED CELL DISTRIBUTION 16.8 % 12.1-15.2 H WIDTH (test code = RDW) PLATELET COUNT (test 171 K/MM3 129-368 code = PLT) NEUTROPHIL # (test 25.50 K/mm3 2.0-7.6 H code = NT#) IMMATURE GRANULOCYTE # 2.63 x10 3/uL 0-0.03 H (test code = IG#) LYMPHOCYTE # (test 1.38 K/mm3 1.0-3.8 N code = LY#) MONOCYTE # (test code 1.33 K/mm3 0.1-0.8 H = MO#) EOSINOPHIL # (test 0.07 K/mm3 0.0-0.2 N code = EO#) BASOPHIL # (test code 0.02 K/mm3 0.0-0.2 N = BA#) NUCLEATED RBC # (test 0.06 K/mm3 0.0-0.1 N code = NRBC#) GAVE TUBES TO JUVENCBNDIFFERENTIAL [id number] 07:20:00 Test Item Value Reference Range Interpretation Comments RBC MORPHOLOGY REQUIRED (test code = RBCM) PLATELET ESTIMATE (test code = PLTEST) ADEQUATE PLATELET MORPHOLOGY (test code = NORMAL PLTMORPH) GAVE TUBES TO JUVENCBNWBC [id number] 07:20:00 Test Item Value Reference Range Interpretation Comments TOTAL CELLS COUNTED (test code = TCC) #CELLS SEGMENTED NEUTROPHILS (test code = % 36.2-73.8 SEG) LYMPHOCYTE (test code = LYMPH) % 12.9-45.1 MONOCYTE (test code = MON) % 0-11 GAVE TUBES TO JUVENCBNCBC W/AUTO [id number] 07:20:00 Test Item Value Reference Range Interpretation Comments WHITE BLOOD CELL (test 30.9 K/MM3 3.8-9.8 HH ALEYDA Calle P code = WBC) & READBACK ON 12/27/19 AT 072 0 BY James Bean RED BLOOD CELL (test 3.87 M/MM3 3.58-4.97 code = RBC) HEMOGLOBIN (test code 11.4 G/DL 11.2-14.9 N = HGB) HEMATOCRIT (test code 35.2 % 33.2-43.5 = HCT) MEAN CELL VOLUME (test 91 fL 80.7-99.1 N code = MCV) MEAN CELL HGB (test 29.5 pg 27.0-34.1 N code = MCH) MEAN CELL HGB 32.4 % 32.2-35.7 N CONCETRATION (test code = MCHC) RED CELL DISTRIBUTION 16.8 % 12.1-15.2 H WIDTH (test code = RDW) PLATELET COUNT (test 171 K/MM3 129-368 code = PLT) MEAN PLATELET VOLUME 12.0 fl 7.4-10.4 H (test code = MPV) NEUTROPHIL % (test 82.4 % 43-75 H code = NT%) IMMATURE GRANULOCYTE % 8.5 % 0.0-2.0 H (test code = IG%) LYMPHOCYTE % (test 4.5 % 14-44 L code = LY%) MONOCYTE % (test code 4.3 % 4-13 N = MO%) EOSINOPHIL % (test 0.2 % 0-6 N code = EO%) BASOPHIL % (test code 0.1 % 0-2 N = BA%) NUCLEATED RBC % (test 0.2 % 0-1.0 N code = NRBC%) NEUTROPHIL # (test 25.50 K/mm3 2.0-7.6 H code = NT#) IMMATURE GRANULOCYTE # 2.63 x10 3/uL 0-0.03 H (test code = IG#) LYMPHOCYTE # (test 1.38 K/mm3 1.0-3.8 N code = LY#) MONOCYTE # (test code 1.33 K/mm3 0.1-0.8 H = MO#) EOSINOPHIL # (test 0.07 K/mm3 0.0-0.2 N code = EO#) BASOPHIL # (test code 0.02 K/mm3 0.0-0.2 N = BA#) NUCLEATED RBC # (test 0.06 K/mm3 0.0-0.1 N code = NRBC#) GAVE TUBES TO JUVENCBNWBC [id number] 07:20:00 Test Item Value Reference Range Interpretation Comments RBC MORPHOLOGY REQUIRED (test code = RBCM) TOTAL CELLS COUNTED (test code = TCC) #CELLS SEGMENTED NEUTROPHILS (test code = % 36.2-73.8 SEG) LYMPHOCYTE (test code = LYMPH) % 12.9-45.1 MONOCYTE (test code = MON) % 0-11 PLATELET ESTIMATE (test code = ADEQUATE PLTEST) PLATELET MORPHOLOGY (test code = NORMAL PLTMORPH) GAVE TUBES TO JUVENCBNGLUCOSE BEDSIDE [id number] 20:59:00 Test Item Value Reference Range Interpretation Comments GLUCOSE BEDSIDE TESTING (test code 108 MG/DL 60-99 H = GLUBED) HGB [id number] 20:16:00 Test Item Value Reference Range Interpretation Comments HEMOGLOBIN (test code = HGB) 10.4 G/DL 11.2-14.9 L HEMATOCRIT (test code = HCT) 31.8 % 33.2-43.5 L ARTERIAL BLOOD [id number] 20:09:00 Test Item Value Reference Range Interpretation Comments ARTERIAL BLOOD GAS PH 7.55 mmHg 7.35-7.45 HH (test code = PHA) ARTERIAL BLOOD GAS PCO2 22.5 mmHg 35.0-45.0 LL (test code = PCO2A) ARTERIAL BLOOD GAS PO2 90.9 mmol/L 80.0-100.0 N (test code = PO2A) BICARBONATE TOTAL HCO3 19.3 mmol/L 20.0-26.0 L (test code = HCO3) BASE EXCESS (test code -0.8 mmol/L -3.0-3.0 N = STEVEN) ABG O2 SATURATION (test 97.9 % 95.0-100.0 N All critical values code = SATA) report to and readback by DANILO Elmore by MAKSIMHQD at 12/26/2019 6:32 :57 PM ABG DELIVERY (test code VENT = [place]) ABG VENT MODE (test A/C code = MODEA) ABG VENT RESP RATE 10.0 /MIN (test code = RRA) ABG TIDAL VOLUME (test 400 ml code = TVA) ABG PEEP (test code = 5.0 cmH2O PEEPA) ABG TEMPERATURE (test 37.0 C >37 code = TEMPA) ABG SITE (test code = AL SITEA) ALLENS TEST (test code NA CHECK = ALLENS) FIO2 (test code = 24 % COHBGFFIO2) [id number] 20:09:00 Test Item Value Reference Range Interpretation Comments PaO2/FiO2 (test code = [id number]) mm/Hg ARTERIAL BLOOD [id number] 20:09:00 Test Item Value Reference Range Interpretation Comments ARTERIAL BLOOD GAS PH 7.55 mmHg 7.35-7.45 HH (test code = PHA) ARTERIAL BLOOD GAS PCO2 22.5 mmHg 35.0-45.0 LL (test code = PCO2A) ARTERIAL BLOOD GAS PO2 90.9 mmol/L 80.0-100.0 N (test code = PO2A) BICARBONATE TOTAL HCO3 19.3 mmol/L 20.0-26.0 L (test code = HCO3) BASE EXCESS (test code -0.8 mmol/L -3.0-3.0 N = STEVEN) ABG O2 SATURATION (test 97.9 % 95.0-100.0 N All critical values code = SATA) report to and readback by DANILO Elmore by MAKSIMHQD at 12/26/2019 6:32 :57 PM ABG DELIVERY (test code VENT = [place]) ABG VENT MODE (test A/C code = MODEA) ABG VENT RESP RATE 10.0 /MIN (test code = RRA) ABG TIDAL VOLUME (test 400 ml code = TVA) ABG PEEP (test code = 5.0 cmH2O PEEPA) ABG TEMPERATURE (test 37.0 C >37 code = TEMPA) ABG SITE (test code = AL SITEA) ALLENS TEST (test code NA CHECK = ALLENS) FIO2 (test code = 24 % COHBGFFIO2) [id number]/[id number] 20:09:00 Test Item Value Reference Range Interpretation Comments PaO2/FiO2 (test code = [id number]) 378.75 mm/Hg ARTERIAL BLOOD [id number] 16:56:00 Test Item Value Reference Range Interpretation Comments ARTERIAL BLOOD GAS PH 7.54 mmHg 7.35-7.45 HH (test code = PHA) ARTERIAL BLOOD GAS PCO2 25.4 mmHg 35.0-45.0 LL (test code = PCO2A) ARTERIAL BLOOD GAS PO2 99.3 mmol/L 80.0-100.0 N (test code = PO2A) BICARBONATE TOTAL HCO3 21.4 mmol/L 20.0-26.0 N (test code = HCO3) BASE EXCESS (test code 0.7 mmol/L -3.0-3.0 N = STEVEN) ABG O2 SATURATION (test 98.2 % 95.0-100.0 N All critical values code = SATA) report to and readback by DANILO CEBALLOS by MAKSIM FORTUNE at 12/26/2019 4:55:50 PM ABG DELIVERY (test code VENT = KAROLINA) ABG VENT RESP RATE 12.0 /MIN (test code = RRA) ABG TIDAL VOLUME (test 400 ml code = TVA) ABG PEEP (test code = 5.0 cmH2O PEEPA) ABG TEMPERATURE (test 37.0 C >37 code = TEMPA) ABG SITE (test code = AL SITEA) ALLENS TEST (test code NA CHECK = ALLENS) FIO2 (test code = 24 % COHBGFFIO2) PaO2/[id number] 16:56:00 Test Item Value Reference Range Interpretation Comments PaO2/FiO2 (test code = [id number]) mm/Hg ARTERIAL BLOOD [id number] 16:56:00 Test Item Value Reference Range Interpretation Comments ARTERIAL BLOOD GAS PH 7.54 mmHg 7.35-7.45 HH (test code = PHA) ARTERIAL BLOOD GAS PCO2 25.4 mmHg 35.0-45.0 LL (test code = PCO2A) ARTERIAL BLOOD GAS PO2 99.3 mmol/L 80.0-100.0 N (test code = PO2A) BICARBONATE TOTAL HCO3 21.4 mmol/L 20.0-26.0 N (test code = HCO3) BASE EXCESS (test code 0.7 mmol/L -3.0-3.0 N = STEVEN) ABG O2 SATURATION (test 98.2 % 95.0-100.0 N All critical values code = SATA) report to and readback by DANILO CEBALLOS by MAKSIM FORTUNE at 12/26/2019 4:55:50 PM ABG DELIVERY (test code VENT = KAR[place]) ABG VENT RESP RATE 12.0 /MIN (test code = RRA) ABG TIDAL VOLUME (test 400 ml code = TVA) ABG PEEP (test code = 5.0 cmH2O PEEPA) ABG TEMPERATURE (test 37.0 C >37 code = TEMPA) ABG SITE (test code = AL SITEA) ALLENS TEST (test code NA CHECK = ALLENS) FIO2 (test code = 24 % COHBGFFIO2) PaO2/[id number] 16:56:00 Test Item Value Reference Range Interpretation Comments PaO2/FiO2 (test code = [id number]) 413.75 mm/Hg GLUCOSE BEDSIDE [id number] 16:14:00 Test Item Value Reference Range Interpretation Comments GLUCOSE BEDSIDE TESTING (test code 106 MG/DL 60-99 H = GLUBED) HGB [id number] 15:44:00 Test Item Value Reference Range Interpretation Comments HEMOGLOBIN (test code = HGB) 9.9 G/DL 11.2-14.9 L HEMATOCRIT (test code = HCT) 29.1 % 33.2-43.5 L LACTIC [id number] 11:54:00 Test Item Value Reference Range Interpretation Comments LACTIC ACID (test code = LACT) 1.7 MMOL/L 0.7-2.1 N GLUCOSE BEDSIDE [id number] 11:16:00 Test Item Value Reference Range Interpretation Comments GLUCOSE BEDSIDE TESTING (test code 123 MG/DL 60-99 H = GLUBED) ARTERIAL BLOOD [id number] 10:36:00 Test Item Value Reference Range Interpretation Comments ARTERIAL BLOOD GAS PH (test code 7.42 mmHg 7.35-7.45 N = PHA) ARTERIAL BLOOD GAS PCO2 (test 30.9 mmHg 35.0-45.0 L code = PCO2A) ARTERIAL BLOOD GAS PO2 (test code 99.4 mmol/L 80.0-100.0 N = PO2A) BICARBONATE TOTAL HCO3 (test code 19.5 mmol/L 20.0-26.0 L = HCO3) BASE EXCESS (test code = STEVEN) -3.8 mmol/L -3.0-3.0 L ABG O2 SATURATION (test code = 97.7 % 95.0-100.0 N SATA) ABG DELIVERY (test code = KAR[place]INA) VENT ABG VENT RESP RATE (test code = 14.0 /MIN RRA) ABG TIDAL VOLUME (test code = 400 ml TVA) ABG PEEP (test code = PEEPA) 5.0 cmH2O ABG TEMPERATURE (test code = 37.0 C >37 TEMPA) ABG SITE (test code = SITEA) AL ALLENS TEST (test code = ALLENS) NA CHECK FIO2 (test code = COHBGFFIO2) 24 % PaO2/[id number] 10:36:00 Test Item Value Reference Range Interpretation Comments PaO2/FiO2 (test code = [id number]) mm/Hg ARTERIAL BLOOD [id number] 10:36:00 Test Item Value Reference Range Interpretation Comments ARTERIAL BLOOD GAS PH (test code 7.42 mmHg 7.35-7.45 N = PHA) ARTERIAL BLOOD GAS PCO2 (test 30.9 mmHg 35.0-45.0 L code = PCO2A) ARTERIAL BLOOD GAS PO2 (test code 99.4 mmol/L 80.0-100.0 N = PO2A) BICARBONATE TOTAL HCO3 (test code 19.5 mmol/L 20.0-26.0 L = HCO3) BASE EXCESS (test code = STEVEN) -3.8 mmol/L -3.0-3.0 L ABG O2 SATURATION (test code = 97.7 % 95.0-100.0 N SATA) ABG DELIVERY (test code = KAROLINA) VENT ABG VENT RESP RATE (test code = 14.0 /MIN RRA) ABG TIDAL VOLUME (test code = 400 ml TVA) ABG PEEP (test code = PEEPA) 5.0 cmH2O ABG TEMPERATURE (test code = 37.0 C >37 TEMPA) ABG SITE (test code = SITEA) AL ALLENS TEST (test code = ALLENS) NA CHECK FIO2 (test code = COHBGFFIO2) 24 % PaO2/[id number] 10:36:00 Test Item Value Reference Range Interpretation Comments PaO2/FiO2 (test code = [id number]) 414.16 mm/Hg HGB [id number] 07:58:00 Test Item Value Reference Range Interpretation Comments HEMOGLOBIN (test code = HGB) 9.6 G/DL 11.2-14.9 L HEMATOCRIT (test code = HCT) 28.7 % 33.2-43.5 L GLUCOSE BEDSIDE [id number] 07:48:00 Test Item Value Reference Range Interpretation Comments GLUCOSE BEDSIDE TESTING 120 MG/DL 60-99 H Noti fied Nurse~ (test code = GLUBED) [id number] 05:42:00 Test Item Value Reference Range Interpretation Comments VANCOMYCIN (test code = VANCO) 16.2 mcg/ML 5.0-26.0 N BASIC METABOLIC [id number] 05:38:00 Test Item Value Reference Range Interpretation Comments SODIUM (test code = 136 MMOL/L 137-145 L NA) POTASSIUM (test code = 3.7 MMOL/L 3.5-5.1 N K) CHLORIDE (test code = 109 MMOL/L 98-107 H CL) CARBON DIOXIDE (test 20 MMOL/L 22-30 L code = CO2) GLUCOSE (test code = 125 MG/DL 74-106 H GLU) BLOOD UREA NITROGEN 49 MG/DL 7-17 H (test code = BUN) GLOMERULAR FILTRATION > 60 Report ing units: RATE (test code = GFR) ml/mi n/1.73 m2 (Modified MDRD Formula)Referen ce Range: > or = 6 0 ml/min/1.73 m2 CREATININE (test code 0.80 MG/DL 0.52-1.04 N = CREAT) CALCIUM (test code = 8.6 MG/DL 8.4-10.2 N CA) [id number] 05:38:00 Test Item Value Reference Range Interpretation Comments PHOSPHOROUS (test code = PHOS) 3.8 MG/DL 2.5-4.5 N [id number] 05:38:00 Test Item Value Reference Range Interpretation Comments MAGNESIUM (test code = MAG) 2.0 MG/DL 1.6-2.3 N BASIC METABOLIC [id number] 05:37:00 Test Item Value Reference Range Interpretation Comments SODIUM (test code = 136 MMOL/L 137-145 L NA) POTASSIUM (test code = 3.7 MMOL/L 3.5-5.1 N K) CHLORIDE (test code = 109 MMOL/L 98-107 H CL) CARBON DIOXIDE (test 20 MMOL/L 22-30 L code = CO2) GLUCOSE (test code = 125 MG/DL 74-106 H GLU) BLOOD UREA NITROGEN 49 MG/DL 7-17 H (test code = BUN) GLOMERULAR FILTRATION > 60 Report ing units: RATE (test code = GFR) ml/mi n/1.73 m2 (Modified MDRD Formula)Referen ce Range: > or = 6 0 ml/min/1.73 m2 CREATININE (test code 0.80 MG/DL 0.52-1.04 N = CREAT) CALCIUM (test code = MG/DL 8.7-9.7 CA) [id number] 05:37:00 Test Item Value Reference Range Interpretation Comments PHOSPHOROUS (test code = PHOS) 3.8 MG/DL 2.5-4.5 N [id number] 05:37:00 Test Item Value Reference Range Interpretation Comments MAGNESIUM (test code = MAG) MG/DL 1.6-2.3 LACTIC [id number] 05:37:00 Test Item Value Reference Range Interpretation Comments LACTIC ACID (test code = LACT) 1.5 MMOL/L 0.7-2.1 N PROTHROMBIN [id number] 05:37:00 Test Item Value Reference Range Interpretation Comments PROTHROMBIN TIME 32.6 SECONDS 9.4-12.5 H PATIENT (test code = PTP) INTERNATIONAL NORMAL 2.9 The INR is to be RATIO (test code = used only for INR) monitoring oral anticoagulantth erap y. INDICATION I NR VALUE ---- ---- ---- -------1. Prophylaxis, de ep venous thrombos is, including hig h risk surgery. 2.0 - 3.0 2. Prophylaxis, de ep venous thrombos is, hip surgery, treatment for d eep venous thrombosis or pulmonary prevention of systemic emboli sm in patients wit h valvular heart disease, atrial fibrillation, tissue heart va lve, or acute myocar dial infarction. 2.0 - 3 .0 3. Mechanical prosthesis hear t valves, recurrent syste eric embolism. 3.0 - 4.5 BASIC METABOLIC [id number] 05:36:00 Test Item Value Reference Range Interpretation Comments SODIUM (test code = 136 MMOL/L 137-145 L NA) POTASSIUM (test code = 3.7 MMOL/L 3.5-5.1 N K) CHLORIDE (test code = 109 MMOL/L 98-107 H CL) CARBON DIOXIDE (test MMOL/L 22-30 code = CO2) GLUCOSE (test code = MG/DL 74-106 GLU) BLOOD UREA NITROGEN MG/DL 7-17 (test code = BUN) GLOMERULAR FILTRATION > 60 Report ing units: RATE (test code = GFR) ml/mi n/1.73 m2 (Modified MDRD Formula)Referen ce Range: > or = 6 0 ml/min/1.73 m2 CREATININE (test code 0.80 MG/DL 0.52-1.04 N = CREAT) CALCIUM (test code = MG/DL 8.7-9.7 CA) [id number] 05:36:00 Test Item Value Reference Range Interpretation Comments PHOSPHOROUS (test code = PHOS) MG/DL 2.5-4.5 [id number] 05:36:00 Test Item Value Reference Range Interpretation Comments MAGNESIUM (test code = MAG) MG/DL 1.6-2.3 BASIC METABOLIC [id number] 05:33:00 Test Item Value Reference Range Interpretation Comments SODIUM (test code = NA) MMOL/L 137-145 POTASSIUM (test code = K) MMOL/L 3.5-5.1 CHLORIDE (test code = CL) 109 MMOL/L 98-107 H CARBON DIOXIDE (test code = CO2) MMOL/L 22-30 GLUCOSE (test code = GLU) MG/DL 74-106 BLOOD UREA NITROGEN (test code = MG/DL 7-17 BUN) GLOMERULAR FILTRATION RATE (test code = GFR) CREATININE (test code = CREAT) MG/DL 0.52-1.04 CALCIUM (test code = CA) MG/DL 8.7-9.7 [id number] 05:33:00 Test Item Value Reference Range Interpretation Comments PHOSPHOROUS (test code = PHOS) MG/DL 2.5-4.5 [id number] 05:33:00 Test Item Value Reference Range Interpretation Comments MAGNESIUM (test code = MAG) MG/DL 1.6-2.3 BASIC METABOLIC [id number] 05:33:00 Test Item Value Reference Range Interpretation Comments SODIUM (test code = NA) 136 MMOL/L 137-145 L POTASSIUM (test code = K) 3.7 MMOL/L 3.5-5.1 N CHLORIDE (test code = CL) 109 MMOL/L 98-107 H CARBON DIOXIDE (test code = CO2) MMOL/L 22-30 GLUCOSE (test code = GLU) MG/DL 74-106 BLOOD UREA NITROGEN (test code = MG/DL 7-17 BUN) GLOMERULAR FILTRATION RATE (test code = GFR) CREATININE (test code = CREAT) MG/DL 0.52-1.04 CALCIUM (test code = CA) MG/DL 8.7-9.7 [id number] 05:33:00 Test Item Value Reference Range Interpretation Comments PHOSPHOROUS (test code = PHOS) MG/DL 2.5-4.5 [id number] 05:33:00 Test Item Value Reference Range Interpretation Comments MAGNESIUM (test code = MAG) MG/DL 1.6-2.3 CBC W/AUTO [id number] 05:26:00 Test Item Value Reference Range Interpretation Comments WHITE BLOOD CELL (test code = 26.1 K/MM3 3.8-9.8 H WBC) RED BLOOD CELL (test code = 3.17 M/MM3 3.58-4.97 L RBC) HEMOGLOBIN (test code = HGB) 9.4 G/DL 11.2-14.9 L HEMATOCRIT (test code = HCT) 28.5 % 33.2-43.5 L MEAN CELL VOLUME (test code = 90 fL 80.7-99.1 N MCV) MEAN CELL HGB (test code = MCH) 29.7 pg 27.0-34.1 N MEAN CELL HGB CONCETRATION 33.0 % 32.2-35.7 N (test code = MCHC) RED CELL DISTRIBUTION WIDTH 16.4 % 12.1-15.2 H (test code = RDW) PLATELET COUNT (test code = 102 K/MM3 129-368 L PLT) MEAN PLATELET VOLUME (test code 12.5 fl 7.4-10.4 H = MPV) NEUTROPHIL % (test code = NT%) 88.8 % 43-75 H IMMATURE GRANULOCYTE % (test 4.1 % 0.0-2.0 H code = IG%) LYMPHOCYTE % (test code = LY%) 4.0 % 14-44 L MONOCYTE % (test code = MO%) 2.6 % 4-13 L EOSINOPHIL % (test code = EO%) 0.2 % 0-6 N BASOPHIL % (test code = BA%) 0.3 % 0-2 N NUCLEATED RBC % (test code = 0.1 % 0-1.0 N NRBC%) NEUTROPHIL # (test code = NT#) 23.20 K/mm3 2.0-7.6 H IMMATURE GRANULOCYTE # (test 1.07 x10 3/uL 0-0.03 H code = IG#) LYMPHOCYTE # (test code = LY#) 1.05 K/mm3 1.0-3.8 N MONOCYTE # (test code = MO#) 0.68 K/mm3 0.1-0.8 N EOSINOPHIL # (test code = EO#) 0.06 K/mm3 0.0-0.2 N BASOPHIL # (test code = BA#) 0.08 K/mm3 0.0-0.2 N NUCLEATED RBC # (test code = 0.03 K/mm3 0.0-0.1 N NRBC#) DIFFERENTIAL [id number] 05:26:00 Test Item Value Reference Range Interpretation Comments RBC MORPHOLOGY REQUIRED (test code = RBCM) PLATELET ESTIMATE (test code = PLTEST) ADEQUATE PLATELET MORPHOLOGY (test code = NORMAL PLTMORPH) CBC W/AUTO [id number] 05:26:00 Test Item Value Reference Range Interpretation Comments WHITE BLOOD CELL (test code = 26.1 K/MM3 3.8-9.8 H WBC) RED BLOOD CELL (test code = 3.17 M/MM3 3.58-4.97 L RBC) HEMOGLOBIN (test code = HGB) 9.4 G/DL 11.2-14.9 L HEMATOCRIT (test code = HCT) 28.5 % 33.2-43.5 L MEAN CELL VOLUME (test code = 90 fL 80.7-99.1 N MCV) MEAN CELL HGB (test code = MCH) 29.7 pg 27.0-34.1 N MEAN CELL HGB CONCETRATION 33.0 % 32.2-35.7 N (test code = MCHC) RED CELL DISTRIBUTION WIDTH 16.4 % 12.1-15.2 H (test code = RDW) PLATELET COUNT (test code = 102 K/MM3 129-368 L PLT) MEAN PLATELET VOLUME (test code 12.5 fl 7.4-10.4 H = MPV) NEUTROPHIL % (test code = NT%) 88.8 % 43-75 H IMMATURE GRANULOCYTE % (test 4.1 % 0.0-2.0 H code = IG%) LYMPHOCYTE % (test code = LY%) 4.0 % 14-44 L MONOCYTE % (test code = MO%) 2.6 % 4-13 L EOSINOPHIL % (test code = EO%) 0.2 % 0-6 N BASOPHIL % (test code = BA%) 0.3 % 0-2 N NUCLEATED RBC % (test code = 0.1 % 0-1.0 N NRBC%) NEUTROPHIL # (test code = NT#) 23.20 K/mm3 2.0-7.6 H IMMATURE GRANULOCYTE # (test 1.07 x10 3/uL 0-0.03 H code = IG#) LYMPHOCYTE # (test code = LY#) 1.05 K/mm3 1.0-3.8 N MONOCYTE # (test code = MO#) 0.68 K/mm3 0.1-0.8 N EOSINOPHIL # (test code = EO#) 0.06 K/mm3 0.0-0.2 N BASOPHIL # (test code = BA#) 0.08 K/mm3 0.0-0.2 N NUCLEATED RBC # (test code = 0.03 K/mm3 0.0-0.1 N NRBC#) DIFFERENTIAL [id number] 05:26:00 Test Item Value Reference Range Interpretation Comments RBC MORPHOLOGY REQUIRED (test code = RBCM) PLATELET ESTIMATE (test code = PLTEST) ADEQUATE PLATELET MORPHOLOGY (test code = NORMAL PLTMORPH) ARTERIAL BLOOD [id number] 04:54:00 Test Item Value Reference Range Interpretation Comments ARTERIAL BLOOD GAS PH 7.45 mmHg 7.35-7.45 N (test code = PHA) ARTERIAL BLOOD GAS PCO2 27.8 mmHg 35.0-45.0 LL (test code = PCO2A) ARTERIAL BLOOD GAS PO2 94.6 mmol/L 80.0-100.0 N (test code = PO2A) BICARBONATE TOTAL HCO3 18.9 mmol/L 20.0-26.0 L (test code = HCO3) BASE EXCESS (test code -3.5 mmol/L -3.0-3.0 L = STEVEN) ABG O2 SATURATION (test 97.6 % 95.0-100.0 N All critical values code = SATA) report to and readback by by [facility] at 12/26/2019 4:47 :35 AM ABG DELIVERY (test code VENT = KAROLINA) ABG VENT MODE (test A/C code = MODEA) ABG VENT RESP RATE 16.0 /MIN (test code = RRA) ABG TIDAL VOLUME (test 350 ml code = TVA) ABG PEEP (test code = 5.0 cmH2O PEEPA) ABG TEMPERATURE (test 37.0 C >37 code = TEMPA) ABG SITE (test code = AL SITEA) ALLENS TEST (test code NA CHECK = ALLENS) FIO2 (test code = 24 % COHBGFFIO2) PaO2/[id number] 04:54:00 Test Item Value Reference Range Interpretation Comments PaO2/FiO2 (test code = [id number]) mm/Hg ARTERIAL BLOOD [id number] 04:54:00 Test Item Value Reference Range Interpretation Comments ARTERIAL BLOOD GAS PH 7.45 mmHg 7.35-7.45 N (test code = PHA) ARTERIAL BLOOD GAS PCO2 27.8 mmHg 35.0-45.0 LL (test code = PCO2A) ARTERIAL BLOOD GAS PO2 94.6 mmol/L 80.0-100.0 N (test code = PO2A) BICARBONATE TOTAL HCO3 18.9 mmol/L 20.0-26.0 L (test code = HCO3) BASE EXCESS (test code -3.5 mmol/L -3.0-3.0 L = STEVEN) ABG O2 SATURATION (test 97.6 % 95.0-100.0 N All critical values code = SATA) report to and readback by by [email or web address] at 12/26/2019 4:47 :35 AM ABG DELIVERY (test code VENT = KAROLINA) ABG VENT MODE (test A/C code = MODEA) ABG VENT RESP RATE 16.0 /MIN (test code = RRA) ABG TIDAL VOLUME (test 350 ml code = TVA) ABG PEEP (test code = 5.0 cmH2O PEEPA) ABG TEMPERATURE (test 37.0 C >37 code = TEMPA) ABG SITE (test code = AL SITEA) ALLENS TEST (test code NA CHECK = ALLENS) FIO2 (test code = 24 % COHBGFFIO2) PaO2/[id number] 04:54:00 Test Item Value Reference Range Interpretation Comments PaO2/FiO2 (test code = [id number]) 394.16 mm/Hg GLUCOSE BEDSIDE [id number] 21:17:00 Test Item Value Reference Range Interpretation Comments GLUCOSE BEDSIDE TESTING (test code 127 MG/DL 60-99 H = GLUBED) HGB [id number] 19:42:00 Test Item Value Reference Range Interpretation Comments HEMOGLOBIN (test code = HGB) 10.1 G/DL 11.2-14.9 L HEMATOCRIT (test code = HCT) 30.4 % 33.2-43.5 L UNABLE TO DRAW BLOOD, REASON: CBNNOTIFIED PATIENT CARE STAFF: ERIK 12/25/19 AT 1744 BY Kristen Henry AnGLUCOSE BEDSIDE [id number] 15:53:00 Test Item Value Reference Range Interpretation Comments GLUCOSE BEDSIDE TESTING 135 MG/DL 60-99 H Noti fied Nurse~ (test code = GLUBED) LACTIC [id number] 15:16:00 Test Item Value Reference Range Interpretation Comments LACTIC ACID (test code = LACT) 1.6 MMOL/L 0.7-2.1 N UNABLE TO DRAW BLOOD, REASON: CBNNOTIFIED PATIENT CARE STAFF: ERIK 12/25/19 AT 1412 BY Kristen HenryVANCOMYCIN [id number] 15:12:00 Test Item Value Reference Range Interpretation Comments VANCOMYCIN TROUGH (test code = 20.4 UG/ML 10.0-20.0 H VANCT) UNABLE TO DRAW BLOOD, REASON: CBNNOTIFIED PATIENT CARE STAFF: ERIK 12/25/19 AT 1411 BY Kristen HenryHGB [id number] 14:45:00 Test Item Value Reference Range Interpretation Comments HEMOGLOBIN (test code = HGB) 10.5 G/DL 11.2-14.9 L HEMATOCRIT (test code = HCT) 31.2 % 33.2-43.5 L UNABLE TO DRAW BLOOD, REASON: CBNNOTIFIED PATIENT CARE STAFF: ERIK 12/25/19 AT 1412 BY Kristen HenryLACTIC [id number] 12:57:00 Test Item Value Reference Range Interpretation Comments LACTIC ACID (test code = LACT) 1.4 MMOL/L 0.7-2.1 N GLUCOSE BEDSIDE [id number] 12:18:00 Test Item Value Reference Range Interpretation Comments GLUCOSE BEDSIDE TESTING 136 MG/DL 60-99 H Noti fied Nurse~ (test code = GLUBED) HGB [id number] 08:53:00 Test Item Value Reference Range Interpretation Comments HEMOGLOBIN (test code = HGB) 10.2 G/DL 11.2-14.9 L HEMATOCRIT (test code = HCT) 30.2 % 33.2-43.5 L UNABLE TO DRAW BLOOD, REASON: CBNNOTIFIED PATIENT CARE STAFF: DANILO PABON 12/25/19 AT 0835 BY Aydee aDniels CHEST [id number] 07:44:00 [facility] : 1940 Sex: F Patient Name: JORGE A HORTA Unit No: [id number] EXAMS: CPT CODE: [id number] XR CHEST 1V [id number] LOCATION: T18 EXAM: CHEST 1 VIEW INDICATION: R espiratory distress, On Ventilator COMPARISON: Chest x-ray December 24, 2019 TECHNIQUE: AP chest radiograph. FINDINGS: Worsening left lung opacity. Right lung is clear. ET and NG tube are unchanged. 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 The heart is normal in size. Patient status post median sternotomy. Bones and peripheral soft tissues are unchanged. IMPRESSION: Worsening left lung opacity. at 0744 Reported and signed by: Lazarus Horta MD CC: Ramu Sutherland MD; Jose Alfredo Goff MD; Rashid Son MD Technologist: Yobani Elias, RT(R) Transcrpt Date/Tm/Trnsp: 12/25/2019 (0744) [email or web address] Orig Print D/T: S: 12/25/2019 (0747) [facility] NAME: JORGE A HORTA [id number] PHYS: [place] [address] : 1940 AGE: 79 SEX: F LOC: [id number].SI06 A PHONE #: [phone] EXAM DATE: 12/25/2019 STATUS: ADM IN FAX #: [phone] RADIOLOGY NO: PAGE 1 Signed ReportGLUCOSE BEDSIDE [id number] 07:42:00 Test Item Value Reference Range Interpretation Comments GLUCOSE BEDSIDE TESTING 132 MG/DL 60-99 H Noti fied Nurse~ (test code = GLUBED) PROTHROMBIN [id number] 05:02:00 Test Item Value Reference Range Interpretation Comments PROTHROMBIN TIME 36.3 SECONDS 9.4-12.5 H PATIENT (test code = PTP) INTERNATIONAL NORMAL 3.3 The INR is to be RATIO (test code = used only for INR) monitoring oral anticoagulantth erap y. INDICATION I NR VALUE ---- ---- ---- -------1. Prophylaxis, de ep venous thrombos is, including hig h risk surgery. 2.0 - 3.0 2. Prophylaxis, de ep venous thrombos is, hip surgery, treatment for d eep venous thrombosis or pulmonary prevention of systemic emboli sm in patients wit h valvular heart disease, atrial fibrillation, tissue heart va lve, or acute myocar dial infarction. 2.0 - 3 .0 3. Mechanical prosthesis hear t valves, recurrent syste eric embolism. 3.0 - 4.5 ARTERIAL BLOOD [id number] 04:55:00 Test Item Value Reference Range Interpretation Comments ARTERIAL BLOOD GAS PH (test code 7.43 mmHg 7.35-7.45 N = PHA) ARTERIAL BLOOD GAS PCO2 (test 31.4 mmHg 35.0-45.0 L code = PCO2A) ARTERIAL BLOOD GAS PO2 (test code 85.0 mmol/L 80.0-100.0 N = PO2A) BICARBONATE TOTAL HCO3 (test code 20.3 mmol/L 20.0-26.0 N = HCO3) BASE EXCESS (test code = STEVEN) -2.9 mmol/L -3.0-3.0 N ABG O2 SATURATION (test code = 96.8 % 95.0-100.0 N SATA) ABG DELIVERY (test code = [place]AR[place]) VENT ABG VENT MODE (test code = MODEA) A/C ABG VENT RESP RATE (test code = 16.0 /MIN RRA) ABG TIDAL VOLUME (test code = 350 ml TVA) ABG PEEP (test code = PEEPA) 5.0 cmH2O ABG TEMPERATURE (test code = 37.0 C >37 TEMPA) ABG SITE (test code = SITEA) AL ALLENS TEST (test code = ALLENS) NA CHECK FIO2 (test code = COHBGFFIO2) 35 % PaO2/[id number] 04:55:00 Test Item Value Reference Range Interpretation Comments PaO2/FiO2 (test code = [id number]) mm/Hg ARTERIAL BLOOD [id number] 04:55:00 Test Item Value Reference Range Interpretation Comments ARTERIAL BLOOD GAS PH (test code 7.43 mmHg 7.35-7.45 N = PHA) ARTERIAL BLOOD GAS PCO2 (test 31.4 mmHg 35.0-45.0 L code = PCO2A) ARTERIAL BLOOD GAS PO2 (test code 85.0 mmol/L 80.0-100.0 N = PO2A) BICARBONATE TOTAL HCO3 (test code 20.3 mmol/L 20.0-26.0 N = HCO3) BASE EXCESS (test code = STEVEN) -2.9 mmol/L -3.0-3.0 N ABG O2 SATURATION (test code = 96.8 % 95.0-100.0 N SATA) ABG DELIVERY (test code = [place]) VENT ABG VENT MODE (test code = MODEA) A/C ABG VENT RESP RATE (test code = 16.0 /MIN RRA) ABG TIDAL VOLUME (test code = 350 ml TVA) ABG PEEP (test code = PEEPA) 5.0 cmH2O ABG TEMPERATURE (test code = 37.0 C >37 TEMPA) ABG SITE (test code = SITEA) AL ALLENS TEST (test code = ALLENS) NA CHECK FIO2 (test code = COHBGFFIO2) 35 % PaO2/[id number] 04:55:00 Test Item Value Reference Range Interpretation Comments PaO2/FiO2 (test code = [id number]) 242.85 mm/Hg CBC W/O [id number] 04:33:00 Test Item Value Reference Range Interpretation Comments WHITE BLOOD CELL (test 36.4 K/MM3 3.8-9.8 HH ALEYDA Bell TO LIN M& code = WBC) READBACK ON 12/25/19 AT 033 4 BY KEYANNA JONAS RA RED BLOOD CELL (test 3.30 M/MM3 3.58-4.97 L code = RBC) HEMOGLOBIN (test code 10.0 G/DL 11.2-14.9 L = HGB) HEMATOCRIT (test code 29.6 % 33.2-43.5 L = HCT) MEAN CELL VOLUME (test 90 fL 80.7-99.1 N code = MCV) MEAN CELL HGB (test 30.3 pg 27.0-34.1 N code = MCH) MEAN CELL HGB 33.8 % 32.2-35.7 N CONCETRATION (test code = MCHC) RED CELL DISTRIBUTION 16.4 % 12.1-15.2 H WIDTH (test code = RDW) PLATELET COUNT (test 108 K/MM3 129-368 L code = PLT) NEUTROPHIL # (test 33.32 K/mm3 2.0-7.6 H code = NT#) IMMATURE GRANULOCYTE # 1.17 x10 3/uL 0-0.03 H (test code = IG#) LYMPHOCYTE # (test 0.99 K/mm3 1.0-3.8 L code = LY#) MONOCYTE # (test code 0.94 K/mm3 0.1-0.8 H = MO#) EOSINOPHIL # (test 0.01 K/mm3 0.0-0.2 N code = EO#) BASOPHIL # (test code 0.01 K/mm3 0.0-0.2 N = BA#) NUCLEATED RBC # (test 0.00 K/mm3 0.0-0.1 N code = NRBC#) DIFFERENTIAL [id number] 04:33:00 Test Item Value Reference Range Interpretation Comments RBC MORPHOLOGY REQUIRED (test code = ABNORMAL RBCM) POIKILOCYTOSIS (test code = POIK) FEW NONE ANISOCYTOSIS (test code = ANISO) SLIGHT NONE CRENATED CELLS (test code = CREN) FEW NONE PLATELET ESTIMATE (test code = ADEQUATE ADEQUATE PLTEST) PLATELET MORPHOLOGY (test code = NORMAL NORMAL PLTMORPH) WBC [id number] 04:33:00 Test Item Value Reference Range Interpretation Comments TOTAL CELLS COUNTED (test code = 130 #CELLS TCC) SEGMENTED NEUTROPHILS (test code = 55.5 % 36.2-73.8 N SEG) BAND NEUTROPHIL (test code = BAND) 38.6 % 0-10 H LYMPHOCYTE (test code = LYMPH) 1.7 % 12.9-45.1 L ATYPICAL LYMPH (test code = 1.7 % 0-0 H ALYMPH) MONOCYTE (test code = MON) 2.5 % 0-11 N CBC W/O [id number] 03:36:00 Test Item Value Reference Range Interpretation Comments WHITE BLOOD CELL (test 36.4 K/MM3 3.8-9.8 MAYNARD D TO LIN M& code = WBC) READBACK ON 12/25/19 AT 033 4 BY KEYANNA JONAS RA RED BLOOD CELL (test 3.30 M/MM3 3.58-4.97 L code = RBC) HEMOGLOBIN (test code 10.0 G/DL 11.2-14.9 L = HGB) HEMATOCRIT (test code 29.6 % 33.2-43.5 L = HCT) MEAN CELL VOLUME (test 90 fL 80.7-99.1 N code = MCV) MEAN CELL HGB (test 30.3 pg 27.0-34.1 N code = MCH) MEAN CELL HGB 33.8 % 32.2-35.7 N CONCETRATION (test code = MCHC) RED CELL DISTRIBUTION 16.4 % 12.1-15.2 H WIDTH (test code = RDW) PLATELET COUNT (test 108 K/MM3 129-368 L code = PLT) NEUTROPHIL # (test 33.32 K/mm3 2.0-7.6 H code = NT#) IMMATURE GRANULOCYTE # 1.17 x10 3/uL 0-0.03 H (test code = IG#) LYMPHOCYTE # (test 0.99 K/mm3 1.0-3.8 L code = LY#) MONOCYTE # (test code 0.94 K/mm3 0.1-0.8 H = MO#) EOSINOPHIL # (test 0.01 K/mm3 0.0-0.2 N code = EO#) BASOPHIL # (test code 0.01 K/mm3 0.0-0.2 N = BA#) NUCLEATED RBC # (test 0.00 K/mm3 0.0-0.1 N code = NRBC#) DIFFERENTIAL [id number] 03:36:00 Test Item Value Reference Range Interpretation Comments RBC MORPHOLOGY REQUIRED (test code = RBCM) PLATELET ESTIMATE (test code = PLTEST) ADEQUATE PLATELET MORPHOLOGY (test code = NORMAL PLTMORPH) WBC [id number] 03:36:00 Test Item Value Reference Range Interpretation Comments TOTAL CELLS COUNTED (test code = TCC) #CELLS SEGMENTED NEUTROPHILS (test code = % 36.2-73.8 SEG) LYMPHOCYTE (test code = LYMPH) % 12.9-45.1 MONOCYTE (test code = MON) % 0-11 CBC W/AUTO [id number] 03:36:00 Test Item Value Reference Range Interpretation Comments WHITE BLOOD CELL (test 36.4 K/MM3 3.8-9.8 BERNABE Bia& code = WBC) READBACK ON 12/25/19 AT 033 4 BY KEYANNA JONAS RA RED BLOOD CELL (test 3.30 M/MM3 3.58-4.97 L code = RBC) HEMOGLOBIN (test code 10.0 G/DL 11.2-14.9 L = HGB) HEMATOCRIT (test code 29.6 % 33.2-43.5 L = HCT) MEAN CELL VOLUME (test 90 fL 80.7-99.1 N code = MCV) MEAN CELL HGB (test 30.3 pg 27.0-34.1 N code = MCH) MEAN CELL HGB 33.8 % 32.2-35.7 N CONCETRATION (test code = MCHC) RED CELL DISTRIBUTION 16.4 % 12.1-15.2 H WIDTH (test code = RDW) PLATELET COUNT (test 108 K/MM3 129-368 L code = PLT) MEAN PLATELET VOLUME 11.8 fl 7.4-10.4 H (test code = MPV) NEUTROPHIL % (test 91.5 % 43-75 H code = NT%) IMMATURE GRANULOCYTE % 3.2 % 0.0-2.0 H (test code = IG%) LYMPHOCYTE % (test 2.7 % 14-44 L code = LY%) MONOCYTE % (test code 2.6 % 4-13 L = MO%) EOSINOPHIL % (test 0.0 % 0-6 N code = EO%) BASOPHIL % (test code 0 % 0-2 N = BA%) NUCLEATED RBC % (test 0.0 % 0-1.0 N code = NRBC%) NEUTROPHIL # (test 33.32 K/mm3 2.0-7.6 H code = NT#) IMMATURE GRANULOCYTE # 1.17 x10 3/uL 0-0.03 H (test code = IG#) LYMPHOCYTE # (test 0.99 K/mm3 1.0-3.8 L code = LY#) MONOCYTE # (test code 0.94 K/mm3 0.1-0.8 H = MO#) EOSINOPHIL # (test 0.01 K/mm3 0.0-0.2 N code = EO#) BASOPHIL # (test code 0.01 K/mm3 0.0-0.2 N = BA#) NUCLEATED RBC # (test 0.00 K/mm3 0.0-0.1 N code = NRBC#) WBC [id number] 03:36:00 Test Item Value Reference Range Interpretation Comments RBC MORPHOLOGY REQUIRED (test code = RBCM) TOTAL CELLS COUNTED (test code = TCC) #CELLS SEGMENTED NEUTROPHILS (test code = % 36.2-73.8 SEG) LYMPHOCYTE (test code = LYMPH) % 12.9-45.1 MONOCYTE (test code = MON) % 0-11 PLATELET ESTIMATE (test code = ADEQUATE PLTEST) PLATELET MORPHOLOGY (test code = NORMAL PLTMORPH) BASIC METABOLIC [id number] 03:28:00 Test Item Value Reference Range Interpretation Comments SODIUM (test code = 138 MMOL/L 137-145 N NA) POTASSIUM (test code = 3.9 MMOL/L 3.5-5.1 N K) CHLORIDE (test code = 111 MMOL/L 98-107 H CL) CARBON DIOXIDE (test 21 MMOL/L 22-30 L code = CO2) ANION GAP (test code = 10 MMOL/L 14-24 L GAP) GLUCOSE (test code = 152 MG/DL 74-106 H GLU) BLOOD UREA NITROGEN 44 MG/DL 7-17 H (test code = BUN) GLOMERULAR FILTRATION 53 Report ing units: RATE (test code = GFR) ml/mi n/1.73 m2 (Modified MDRD Formula)Referen ce Range: > or = 6 0 ml/min/1.73 m2 CREATININE (test code 1.00 MG/DL 0.52-1.04 N = CREAT) CALCIUM (test code = 8.6 MG/DL 8.4-10.2 N CA) [id number] 03:28:00 Test Item Value Reference Range Interpretation Comments PHOSPHOROUS (test code = PHOS) 3.4 MG/DL 2.5-4.5 N [id number] 03:28:00 Test Item Value Reference Range Interpretation Comments MAGNESIUM (test code = MAG) 2.3 MG/DL 1.6-2.3 [id number] 21:06:00 Test Item Value Reference Range Interpretation Comments POTASSIUM (test code = K) 3.8 MMOL/L 3.5-5.1 N UNABLE TO DRAW BLOOD, REASON: CBNNOTIFIED PATIENT CARE STAFF: [facility] 12/24/192019 BY Kristen Henry [id number] 21:06:00 Test Item Value Reference Range Interpretation Comments CALCIUM (test code = CA) 8.1 MG/DL 8.4-10.2 L UNABLE TO DRAW BLOOD, REASON: CBNNOTIFIED PATIENT CARE STAFF: [facility] 12/24/192019 BY Kristen Henry [id number] 21:06:00 Test Item Value Reference Range Interpretation Comments MAGNESIUM (test code = MAG) 1.9 MG/DL 1.6-2.3 UNABLE TO DRAW BLOOD, REASON: CBNNOTIFIED PATIENT CARE STAFF: [facility] 12/24/192019 BY Kristen [id number] 21:05:00 Test Item Value Reference Range Interpretation Comments POTASSIUM (test code = K) 3.8 MMOL/L 3.5-5.1 N UNABLE TO DRAW BLOOD, REASON: CBNNOTIFIED PATIENT CARE STAFF: [facility] 12/24/192019 BY Kristen [id number] 21:05:00 Test Item Value Reference Range Interpretation Comments CALCIUM (test code = CA) 8.1 MG/DL 8.4-10.2 L UNABLE TO DRAW BLOOD, REASON: CBNNOTIFIED PATIENT CARE STAFF: [facility] 12/24/192019 BY Kristen HenryESIUM2020-11-15 21:05:00 Test Item Value Reference Range Interpretation Comments MAGNESIUM (test code = MAG) MG/DL 1.6-2.3 UNABLE TO DRAW BLOOD, REASON: CBNNOTIFIED PATIENT CARE STAFF: [facility] 12/24/192019 BY Kristen HenryIUM2020-11-15 21:02:00 Test Item Value Reference Range Interpretation Comments POTASSIUM (test code = K) 3.8 MMOL/L 3.5-5.1 N UNABLE TO DRAW BLOOD, REASON: CBNNOTIFIED PATIENT CARE STAFF: [facility] 12/24/192019 BY Kristen HenryIUM2020-11-15 21:02:00 Test Item Value Reference Range Interpretation Comments CALCIUM (test code = CA) MG/DL 8.7-9.7 UNABLE TO DRAW BLOOD, REASON: CBNNOTIFIED PATIENT CARE STAFF: [facility] 12/24/192019 BY Kristen HenryESIUM2020-11-15 21:02:00 Test Item Value Reference Range Interpretation Comments MAGNESIUM (test code = MAG) MG/DL 1.6-2.3 UNABLE TO DRAW BLOOD, REASON: CBNNOTIFIED PATIENT CARE STAFF: [facility] 12/24/192019 BY Kristen HenryHGB [id number] 20:48:00 Test Item Value Reference Range Interpretation Comments HEMOGLOBIN (test code = HGB) 8.2 G/DL 11.2-14.9 L HEMATOCRIT (test code = HCT) 24.2 % 33.2-43.5 L UNABLE TO DRAW BLOOD, REASON: CBNNOTIFIED PATIENT CARE STAFF: [facility] 12/24/19 AT 2019 BY Kristen Henry AnGLUCOSE BEDSIDE [id number] 20:27:00 Test Item Value Reference Range Interpretation Comments GLUCOSE BEDSIDE TESTING (test code 139 MG/DL 60-99 H = GLUBED) VANCOMYCIN [id number] 16:07:00 Test Item Value Reference Range Interpretation Comments VANCOMYCIN TROUGH (test code = 15.9 UG/ML 10.0-20.0 N VANCT) UNABLE TO DRAW BLOOD, REASON: CBNNOTIFIED PATIENT CARE STAFF: TREY 12/24/19 AT 1519 BY Kristen Henry AnARTERIAL BLOOD [id number] 15:59:00 Test Item Value Reference Range Interpretation Comments ARTERIAL BLOOD GAS PH 7.47 mmHg 7.35-7.45 H (test code = PHA) ARTERIAL BLOOD GAS 29.8 mmHg 35.0-45.0 LL PCO2 (test code = PCO2A) ARTERIAL BLOOD GAS PO2 104.4 mmol/L 80.0-100.0 H (test code = PO2A) BICARBONATE TOTAL HCO3 21.2 mmol/L 20.0-26.0 N (test code = HCO3) BASE EXCESS (test code -1.2 mmol/L -3.0-3.0 N = STEVEN) ABG O2 SATURATION 98.1 % 95.0-100.0 N All critic al values (test code = SATA) report to and readback by ITZEL MILLIGAN RN by MARCO at 12/24/2019 3:58 :31 PM ABG DELIVERY (test VENT code = KAROLINA) ABG VENT MODE (test A/C code = MODEA) ABG VENT RESP RATE 20.0 /MIN (test code = RRA) ABG TIDAL VOLUME (test 350 ml code = TVA) ABG PEEP (test code = 5.0 cmH2O PEEPA) ABG TEMPERATURE (test 37.0 C >37 code = TEMPA) ABG SITE (test code = AL SITEA) ALLENS TEST (test code NA CHECK = ALLENS) FIO2 (test code = 35 % COHBGFFIO2) PaO2/[id number] 15:59:00 Test Item Value Reference Range Interpretation Comments PaO2/FiO2 (test code = [id number]) mm/Hg ARTERIAL BLOOD [id number] 15:59:00 Test Item Value Reference Range Interpretation Comments ARTERIAL BLOOD GAS PH 7.47 mmHg 7.35-7.45 H (test code = PHA) ARTERIAL BLOOD GAS 29.8 mmHg 35.0-45.0 LL PCO2 (test code = PCO2A) ARTERIAL BLOOD GAS PO2 104.4 mmol/L 80.0-100.0 H (test code = PO2A) BICARBONATE TOTAL HCO3 21.2 mmol/L 20.0-26.0 N (test code = HCO3) BASE EXCESS (test code -1.2 mmol/L -3.0-3.0 N = STEVEN) ABG O2 SATURATION 98.1 % 95.0-100.0 N All critic al values (test code = SATA) report to and readback by ITZEL MILLIGAN RN by MARCO at 12/24/2019 3:58 :31 PM ABG DELIVERY (test VENT code = KAROLINA) ABG VENT MODE (test A/C code = MODEA) ABG VENT RESP RATE 20.0 /MIN (test code = RRA) ABG TIDAL VOLUME (test 350 ml code = TVA) ABG PEEP (test code = 5.0 cmH2O PEEPA) ABG TEMPERATURE (test 37.0 C >37 code = TEMPA) ABG SITE (test code = AL SITEA) ALLENS TEST (test code NA CHECK = ALLENS) FIO2 (test code = 35 % COHBGFFIO2) PaO2/[id number] 15:59:00 Test Item Value Reference Range Interpretation Comments PaO2/FiO2 (test code = [id number]) 298.28 mm/Hg PTT [id number] 15:58:00 Test Item Value Reference Range Interpretation Comments PTT ACTIVATED (test code = APTT) 39.0 SECONDS 25.1-36.5 H UNABLE TO DRAW BLOOD, REASON: CBNNOTIFIED PATIENT CARE STAFF: TREY 12/24/19 AT 1519 BY Kristen Henry [id number] 15:41:00 Test Item Value Reference Range Interpretation Comments HEMOGLOBIN (test code = HGB) 8.2 G/DL 11.2-14.9 L HEMATOCRIT (test code = HCT) 24.6 % 33.2-43.5 L UNABLE TO DRAW BLOOD, REASON: CBNNOTIFIED PATIENT CARE STAFF: TREY 12/24/19 AT 1519 BY Kristen Henry AnARTERIAL BLOOD [id number] 13:00:00 Test Item Value Reference Range Interpretation Comments ARTERIAL BLOOD GAS PH (test code 7.43 mmHg 7.35-7.45 N = PHA) ARTERIAL BLOOD GAS PCO2 (test 33.9 mmHg 35.0-45.0 L code = PCO2A) ARTERIAL BLOOD GAS PO2 (test 111.5 mmol/L 80.0-100.0 H code = PO2A) BICARBONATE TOTAL HCO3 (test 21.8 mmol/L 20.0-26.0 N code = HCO3) BASE EXCESS (test code = STEVEN) -1.7 mmol/L -3.0-3.0 N ABG O2 SATURATION (test code = 98.2 % 95.0-100.0 N SATA) ABG DELIVERY (test code = KAROLINA) VENT ABG VENT MODE (test code = A/C MODEA) ABG VENT RESP RATE (test code = 20.0 /MIN RRA) ABG TIDAL VOLUME (test code = 350 ml TVA) ABG PEEP (test code = PEEPA) 5.0 cmH2O ABG TEMPERATURE (test code = 37.0 C >37 TEMPA) ABG SITE (test code = SITEA) AL ALLENS TEST (test code = ALLENS) NA CHECK FIO2 (test code = COHBGFFIO2) 35 % PaO2/[id number] 13:00:00 Test Item Value Reference Range Interpretation Comments PaO2/FiO2 (test code = [id number]) mm/Hg ARTERIAL BLOOD [id number] 13:00:00 Test Item Value Reference Range Interpretation Comments ARTERIAL BLOOD GAS PH (test code 7.43 mmHg 7.35-7.45 N = PHA) ARTERIAL BLOOD GAS PCO2 (test 33.9 mmHg 35.0-45.0 L code = PCO2A) ARTERIAL BLOOD GAS PO2 (test 111.5 mmol/L 80.0-100.0 H code = PO2A) BICARBONATE TOTAL HCO3 (test 21.8 mmol/L 20.0-26.0 N code = HCO3) BASE EXCESS (test code = STEVEN) -1.7 mmol/L -3.0-3.0 N ABG O2 SATURATION (test code = 98.2 % 95.0-100.0 N SATA) ABG DELIVERY (test code = KAROLINA) VENT ABG VENT MODE (test code = A/C MODEA) ABG VENT RESP RATE (test code = 20.0 /MIN RRA) ABG TIDAL VOLUME (test code = 350 ml TVA) ABG PEEP (test code = PEEPA) 5.0 cmH2O ABG TEMPERATURE (test code = 37.0 C >37 TEMPA) ABG SITE (test code = SITEA) AL ALLENS TEST (test code = ALLENS) NA CHECK FIO2 (test code = COHBGFFIO2) 35 % PaO2/[id number] 13:00:00 Test Item Value Reference Range Interpretation Comments PaO2/FiO2 (test code = [id number]) 318.57 mm/Hg HGB [id number] 12:52:00 Test Item Value Reference Range Interpretation Comments HEMOGLOBIN (test code = HGB) 8.3 G/DL 11.2-14.9 L HEMATOCRIT (test code = HCT) 25.1 % 33.2-43.5 L ARTERIAL BLOOD [id number] 09:55:00 Test Item Value Reference Range Interpretation Comments ARTERIAL BLOOD GAS PH (test code 7.41 mmHg 7.35-7.45 N = PHA) ARTERIAL BLOOD GAS PCO2 (test 37.5 mmHg 35.0-45.0 N code = PCO2A) ARTERIAL BLOOD GAS PO2 (test 111.5 mmol/L 80.0-100.0 H code = PO2A) BICARBONATE TOTAL HCO3 (test 23.3 mmol/L 20.0-26.0 N code = HCO3) BASE EXCESS (test code = STEVEN) -1.1 mmol/L -3.0-3.0 N ABG O2 SATURATION (test code = 98.1 % 95.0-100.0 N SATA) ABG DELIVERY (test code = KAROLINA) VENT ABG VENT MODE (test code = A/C MODEA) ABG VENT RESP RATE (test code = 20.0 /MIN RRA) ABG TIDAL VOLUME (test code = 350 ml TVA) ABG PEEP (test code = PEEPA) 5.0 cmH2O ABG TEMPERATURE (test code = 37.0 C >37 TEMPA) ABG SITE (test code = SITEA) AL ALLENS TEST (test code = ALLENS) NA CHECK FIO2 (test code = COHBGFFIO2) 35 % TOTAL HGB (test code = THB) 9.0 g/L 12.0-16.0 L HGB O2 SAT (test code = HBOSAT) 96.6 % 95-100 N CARBOXYHEMOGLOBIN (test code = 0.5 % 0.5-1.5 N HOHGBT) METHEMOGLOBIN (test code = 0.3 % 0.4-1.5 L METHGB) PaO2/[id number] 09:55:00 Test Item Value Reference Range Interpretation Comments PaO2/FiO2 (test code = [id number]) mm/Hg ARTERIAL BLOOD [id number] 09:55:00 Test Item Value Reference Range Interpretation Comments ARTERIAL BLOOD GAS PH (test code 7.41 mmHg 7.35-7.45 N = PHA) ARTERIAL BLOOD GAS PCO2 (test 37.5 mmHg 35.0-45.0 N code = PCO2A) ARTERIAL BLOOD GAS PO2 (test 111.5 mmol/L 80.0-100.0 H code = PO2A) BICARBONATE TOTAL HCO3 (test 23.3 mmol/L 20.0-26.0 N code = HCO3) BASE EXCESS (test code = STEVEN) -1.1 mmol/L -3.0-3.0 N ABG O2 SATURATION (test code = 98.1 % 95.0-100.0 N SATA) ABG DELIVERY (test code = KAROLINA) VENT ABG VENT MODE (test code = A/C MODEA) ABG VENT RESP RATE (test code = 20.0 /MIN RRA) ABG TIDAL VOLUME (test code = 350 ml TVA) ABG PEEP (test code = PEEPA) 5.0 cmH2O ABG TEMPERATURE (test code = 37.0 C >37 TEMPA) ABG SITE (test code = SITEA) AL ALLENS TEST (test code = ALLENS) NA CHECK FIO2 (test code = COHBGFFIO2) 35 % TOTAL HGB (test code = THB) 9.0 g/L 12.0-16.0 L HGB O2 SAT (test code = HBOSAT) 96.6 % 95-100 N CARBOXYHEMOGLOBIN (test code = 0.5 % 0.5-1.5 N HOHGBT) METHEMOGLOBIN (test code = 0.3 % 0.4-1.5 L METHGB) PaO2/[id number] 09:55:00 Test Item Value Reference Range Interpretation Comments PaO2/FiO2 (test code = [id number]) 318.57 mm/Hg [id number] 09:53:00 Test Item Value Reference Range Interpretation Comments PHOSPHOROUS (test code = PHOS) 3.7 MG/DL 2.5-4.5 N [id number] 09:53:00 Test Item Value Reference Range Interpretation Comments MAGNESIUM (test code = MAG) 1.5 MG/DL 1.6-2.3 L LACTIC [id number] 09:12:00 Test Item Value Reference Range Interpretation Comments LACTIC ACID (test code = LACT) 1.5 MMOL/L 0.7-2.1 N HGB [id number] 08:55:00 Test Item Value Reference Range Interpretation Comments HEMOGLOBIN (test code = HGB) 8.5 G/DL 11.2-14.9 L HEMATOCRIT (test code = HCT) 25.3 % 33.2-43.5 L CBC W/O [id number] 07:59:00 Test Item Value Reference Range Interpretation Comments WHITE BLOOD CELL (test 33.9 K/MM3 3.8-9.8 ALEYDA HERNANDEZ M code = WBC) & READBACK ON 12/24/19 AT 052 6 BY Michael,Chest er RED BLOOD CELL (test 3.02 M/MM3 3.58-4.97 L code = RBC) HEMOGLOBIN (test code 8.9 G/DL 11.2-14.9 L = HGB) HEMATOCRIT (test code 26.8 % 33.2-43.5 L = HCT) MEAN CELL VOLUME (test 89 fL 80.7-99.1 N code = MCV) MEAN CELL HGB (test 29.5 pg 27.0-34.1 N code = MCH) MEAN CELL HGB 33.2 % 32.2-35.7 N CONCETRATION (test code = MCHC) RED CELL DISTRIBUTION 16.0 % 12.1-15.2 H WIDTH (test code = RDW) PLATELET COUNT (test 137 K/MM3 129-368 code = PLT) NEUTROPHIL # (test 30.07 K/mm3 2.0-7.6 H code = NT#) IMMATURE GRANULOCYTE # 1.86 x10 3/uL 0-0.03 H (test code = IG#) LYMPHOCYTE # (test 0.82 K/mm3 1.0-3.8 L code = LY#) MONOCYTE # (test code 1.05 K/mm3 0.1-0.8 H = MO#) EOSINOPHIL # (test 0.08 K/mm3 0.0-0.2 N code = EO#) BASOPHIL # (test code 0.01 K/mm3 0.0-0.2 N = BA#) NUCLEATED RBC # (test 0.00 K/mm3 0.0-0.1 N code = NRBC#) DIFFERENTIAL [id number] 07:59:00 Test Item Value Reference Range Interpretation Comments RBC MORPHOLOGY REQUIRED (test code = NORMAL RBCM) POIKILOCYTOSIS (test code = POIK) FEW NONE GIAN CELLS (test code = GIAN) FEW NONE PLATELET ESTIMATE (test code = ADEQUATE ADEQUATE PLTEST) PLATELET MORPHOLOGY (test code = NORMAL NORMAL PLTMORPH) WBC [id number] 07:59:00 Test Item Value Reference Range Interpretation Comments TOTAL CELLS COUNTED (test code = 130 #CELLS TCC) SEGMENTED NEUTROPHILS (test code = 72.2 % 36.2-73.8 SEG) BAND NEUTROPHIL (test code = BAND) 23.8 % 0-10 H LYMPHOCYTE (test code = LYMPH) 2.4 % 12.9-45.1 L ATYPICAL LYMPH (test code = 0.0 % 0-0 N ALYMPH) MONOCYTE (test code = MON) 1.6 % 0-11 N NUCLEATED RED BLOOD CELL (test 1 0-0 H code = NRBC) GLUCOSE BEDSIDE [id number] 07:55:00 Test Item Value Reference Range Interpretation Comments GLUCOSE BEDSIDE TESTING (test code 125 MG/DL 60-99 H = GLUBED) - XR CHEST [id number] 06:07:00 [facility] 1940 Sex: F Patient Name: JORGE A HORTA Unit No: [id number] EXAMS: CPT CODE: [id number] XR CHEST 1V [id number] Examination: One view chest x-ray Location code: H60 Comparison: 12/23/2019 Discussion: Clinical history is remarkable for shortness of breath. Endotracheal tube and nasogastric tube are again identified and essentially unchanged in position. Heart is unchanged in size. Patient is status post sternotomy. A confluent infiltrate is identified in the left upper lobe essentially unchanged when compared to the prior study. Bilateral effusions are identified unchanged. Impression: 1. Infiltrate in left upper lobe and small bilateralpleural effusions stable when compared to the prior study. 2. Endotracheal tube and nasogastric tube stable in position when compared to the prior exam. at 0607 Reported and signed by: Anthony Boyer MD CC: Ramu Sutherland MD; Jose Alfredo Goff MD; Rashid Son MD Technologist: Yobani Elias, RT(R) Transcrpt Date/Tm/Trnsp: 12/24/2019 (606) Dorys.[email or web address] Orig Print D/T: S: 12/24/2019 (627) [facility] NAME: JORGE A HORTA [id number] [address] PHYS: Jose [place] [address] : 1940 AGE: 79 SEX: F LOC: [id number] PHONE #: [phone] EXAM DATE: 12/24/2019 STATUS: ADM IN FAX #: [phone] RADIOLOGY NO: PAGE 1 Signed Report COMPREHENSIVE METABOLIC [id number] 05:40:00 Test Item Value Reference Range Interpretation Comments SODIUM (test code = 139 MMOL/L 137-145 N NA) POTASSIUM (test code 3.7 MMOL/L 3.5-5.1 N = K) CHLORIDE (test code = 111 MMOL/L 98-107 H CL) CARBON DIOXIDE (test 22 MMOL/L 22-30 N code = CO2) ANION GAP (test code 10 MMOL/L 14-24 L = GAP) GLUCOSE (test code = 111 MG/DL 74-106 H GLU) BLOOD UREA NITROGEN 40 MG/DL 7-17 H (test code = BUN) GLOMERULAR FILTRATION 43 Report ing units: RATE (test code = ml/min/1.7 3 m2 GFR) (Modified MDRD Formula)Referen ce Range: > or = 6 0 ml/min/1.73 m2 CREATININE (test code 1.20 MG/DL 0.52-1.04 H = CREAT) TOTAL PROTEIN (test 3.9 G/DL 6.3-8.2 L code = PROT) ALBUMIN (test code = 1.9 G/DL 3.5-5.0 L ALB) CALCIUM (test code = 7.7 MG/DL 8.4-10.2 L CA) BILIRUBIN TOTAL (test 3.1 MG/DL 0.2-1.3 H Eltrom bopag code = BILT) Interference fo r Vitros Product TBil, BuBc: ======= ======= ======A ssay Eltrombop ag Analyte/ Max Observed Avg. Bias Concentratio n Concentration Concentration== ======= ======= ======= =======TBil 7 mg/dl TBil/ 1.2m g/dl +0.23mg.dl +0.20mg/dlBuBc 3.5mg/dl Bu/0.8mg/dl +0.25mg/dl +0.24mg/dlBuBc 7 mg/dl Bu/14.2mg/dl +0.38mg/dl +0.25mg/dlBuBc 5mg/dl Bc/0mg/dl +0.25mg/dl +0.15mg/dlBuBc 3.5mg/dl Bc/2.8mg/dl +0.25mg/dl +0.23mg/dl SGOT/AST (test code = 42 UNITS/L 14-36 H AST) SGPT/ALT (test code = 15 UNITS/L <35 ALT) ALKALINE PHOSPHATASE 72 UNITS/L 38-126 N (test code = ALKP) COMPREHENSIVE METABOLIC [id number] 05:38:00 Test Item Value Reference Range Interpretation Comments SODIUM (test code = NA) 139 MMOL/L 137-145 N POTASSIUM (test code = 3.7 MMOL/L 3.5-5.1 N K) CHLORIDE (test code = 111 MMOL/L 98-107 H CL) CARBON DIOXIDE (test MMOL/L 22-30 code = CO2) GLUCOSE (test code = MG/DL 74-106 GLU) BLOOD UREA NITROGEN MG/DL 7-17 (test code = BUN) GLOMERULAR FILTRATION 43 Report ing units: RATE (test code = GFR) ml/mi n/1.73 m2 (Modified MDRD Formula)Referen ce Range: > or = 6 0 ml/min/1.73 m2 CREATININE (test code = 1.20 MG/DL 0.52-1.04 H CREAT) TOTAL PROTEIN (test G/DL 6.3-8.2 code = PROT) ALBUMIN (test code = 1.9 G/DL 3.5-5.0 L ALB) CALCIUM (test code = MG/DL 8.7-9.7 CA) BILIRUBIN TOTAL (test MG/DL 0.2-1.3 code = BILT) SGOT/AST (test code = UNITS/L 15-37 AST) SGPT/ALT (test code = UNITS/L <35 ALT) ALKALINE PHOSPHATASE UNITS/L 38-126 (test code = ALKP) LACTIC [id number] 05:38:00 Test Item Value Reference Range Interpretation Comments LACTIC ACID (test code = LACT) 2.1 MMOL/L 0.7-2.1 N COMPREHENSIVE METABOLIC [id number] 05:37:00 Test Item Value Reference Range Interpretation Comments SODIUM (test code = NA) 139 MMOL/L 137-145 N POTASSIUM (test code = K) 3.7 MMOL/L 3.5-5.1 N CHLORIDE (test code = CL) 111 MMOL/L 98-107 H CARBON DIOXIDE (test code = CO2) MMOL/L 22-30 GLUCOSE (test code = GLU) MG/DL 74-106 BLOOD UREA NITROGEN (test code = MG/DL 7-17 BUN) GLOMERULAR FILTRATION RATE (test code = GFR) CREATININE (test code = CREAT) MG/DL 0.52-1.04 TOTAL PROTEIN (test code = PROT) G/DL 6.3-8.2 ALBUMIN (test code = ALB) 1.9 G/DL 3.5-5.0 L CALCIUM (test code = CA) MG/DL 8.7-9.7 BILIRUBIN TOTAL (test code = BILT) MG/DL 0.2-1.3 SGOT/AST (test code = AST) UNITS/L 15-37 SGPT/ALT (test code = ALT) UNITS/L <35 ALKALINE PHOSPHATASE (test code = UNITS/L 38-126 ALKP) COMPREHENSIVE METABOLIC [id number] 05:36:00 Test Item Value Reference Range Interpretation Comments SODIUM (test code = NA) 139 MMOL/L 137-145 N POTASSIUM (test code = K) MMOL/L 3.5-5.1 CHLORIDE (test code = CL) 111 MMOL/L 98-107 H CARBON DIOXIDE (test code = CO2) MMOL/L 22-30 GLUCOSE (test code = GLU) MG/DL 74-106 BLOOD UREA NITROGEN (test code = MG/DL 7-17 BUN) GLOMERULAR FILTRATION RATE (test code = GFR) CREATININE (test code = CREAT) MG/DL 0.52-1.04 TOTAL PROTEIN (test code = PROT) G/DL 6.3-8.2 ALBUMIN (test code = ALB) 1.9 G/DL 3.5-5.0 L CALCIUM (test code = CA) MG/DL 8.7-9.7 BILIRUBIN TOTAL (test code = BILT) MG/DL 0.2-1.3 SGOT/AST (test code = AST) UNITS/L 15-37 SGPT/ALT (test code = ALT) UNITS/L <35 ALKALINE PHOSPHATASE (test code = UNITS/L 38-126 ALKP) PROTHROMBIN [id number] 05:32:00 Test Item Value Reference Range Interpretation Comments PROTHROMBIN TIME 33.7 SECONDS 9.4-12.5 H PATIENT (test code = PTP) INTERNATIONAL NORMAL 3.0 The INR is to be RATIO (test code = used only for INR) monitoring oral anticoagulantth erap y. INDICATION I NR VALUE ---- ---- ---- -------1. Prophylaxis, de ep venous thrombos is, including hig h risk surgery. 2.0 - 3.0 2. Prophylaxis, de ep venous thrombos is, hip surgery, treatment for d eep venous thrombosis or pulmonary prevention of systemic emboli sm in patients wit h valvular heart disease, atrial fibrillation, tissue heart va lve, or acute myocar dial infarction. 2.0 - 3 .0 3. Mechanical prosthesis hear t valves, recurrent syste eric embolism. 3.0 - 4.5 CBC W/O [id number] 05:27:00 Test Item Value Reference Range Interpretation Comments WHITE BLOOD CELL (test 33.9 K/MM3 3.8-9.8 ALEYDA HERNANDEZ M code = WBC) & READBACK ON 12/24/19 AT 052 6 BY MichaelChest er RED BLOOD CELL (test 3.02 M/MM3 3.58-4.97 L code = RBC) HEMOGLOBIN (test code 8.9 G/DL 11.2-14.9 L = HGB) HEMATOCRIT (test code 26.8 % 33.2-43.5 L = HCT) MEAN CELL VOLUME (test 89 fL 80.7-99.1 N code = MCV) MEAN CELL HGB (test 29.5 pg 27.0-34.1 N code = MCH) MEAN CELL HGB 33.2 % 32.2-35.7 N CONCETRATION (test code = MCHC) RED CELL DISTRIBUTION 16.0 % 12.1-15.2 H WIDTH (test code = RDW) PLATELET COUNT (test 137 K/MM3 129-368 code = PLT) NEUTROPHIL # (test 30.07 K/mm3 2.0-7.6 H code = NT#) IMMATURE GRANULOCYTE # 1.86 x10 3/uL 0-0.03 H (test code = IG#) LYMPHOCYTE # (test 0.82 K/mm3 1.0-3.8 L code = LY#) MONOCYTE # (test code 1.05 K/mm3 0.1-0.8 H = MO#) EOSINOPHIL # (test 0.08 K/mm3 0.0-0.2 N code = EO#) BASOPHIL # (test code 0.01 K/mm3 0.0-0.2 N = BA#) NUCLEATED RBC # (test 0.00 K/mm3 0.0-0.1 N code = NRBC#) DIFFERENTIAL [id number] 05:27:00 Test Item Value Reference Range Interpretation Comments RBC MORPHOLOGY REQUIRED (test code = RBCM) PLATELET ESTIMATE (test code = PLTEST) ADEQUATE PLATELET MORPHOLOGY (test code = NORMAL PLTMORPH) WBC [id number] 05:27:00 Test Item Value Reference Range Interpretation Comments TOTAL CELLS COUNTED (test code = TCC) #CELLS SEGMENTED NEUTROPHILS (test code = % 36.2-73.8 SEG) LYMPHOCYTE (test code = LYMPH) % 12.9-45.1 MONOCYTE (test code = MON) % 0-11 CBC W/AUTO [id number] 05:27:00 Test Item Value Reference Range Interpretation Comments WHITE BLOOD CELL (test 33.9 K/MM3 3.8-9.8 ALEYDA HERNANDEZ M code = WBC) & READBACK ON 12/24/19 AT 052 6 BY MichaelChest er RED BLOOD CELL (test 3.02 M/MM3 3.58-4.97 L code = RBC) HEMOGLOBIN (test code 8.9 G/DL 11.2-14.9 L = HGB) HEMATOCRIT (test code 26.8 % 33.2-43.5 L = HCT) MEAN CELL VOLUME (test 89 fL 80.7-99.1 N code = MCV) MEAN CELL HGB (test 29.5 pg 27.0-34.1 N code = MCH) MEAN CELL HGB 33.2 % 32.2-35.7 N CONCETRATION (test code = MCHC) RED CELL DISTRIBUTION 16.0 % 12.1-15.2 H WIDTH (test code = RDW) PLATELET COUNT (test 137 K/MM3 129-368 code = PLT) MEAN PLATELET VOLUME 11.8 fl 7.4-10.4 H (test code = MPV) NEUTROPHIL % (test 88.8 % 43-75 H code = NT%) IMMATURE GRANULOCYTE % 5.5 % 0.0-2.0 H (test code = IG%) LYMPHOCYTE % (test 2.4 % 14-44 L code = LY%) MONOCYTE % (test code 3.1 % 4-13 L = MO%) EOSINOPHIL % (test 0.2 % 0-6 N code = EO%) BASOPHIL % (test code 0 % 0-2 N = BA%) NUCLEATED RBC % (test 0.0 % 0-1.0 N code = NRBC%) NEUTROPHIL # (test 30.07 K/mm3 2.0-7.6 H code = NT#) IMMATURE GRANULOCYTE # 1.86 x10 3/uL 0-0.03 H (test code = IG#) LYMPHOCYTE # (test 0.82 K/mm3 1.0-3.8 L code = LY#) MONOCYTE # (test code 1.05 K/mm3 0.1-0.8 H = MO#) EOSINOPHIL # (test 0.08 K/mm3 0.0-0.2 N code = EO#) BASOPHIL # (test code 0.01 K/mm3 0.0-0.2 N = BA#) NUCLEATED RBC # (test 0.00 K/mm3 0.0-0.1 N code = NRBC#) WBC [id number] 05:27:00 Test Item Value Reference Range Interpretation Comments RBC MORPHOLOGY REQUIRED (test code = RBCM) TOTAL CELLS COUNTED (test code = TCC) #CELLS SEGMENTED NEUTROPHILS (test code = % 36.2-73.8 SEG) LYMPHOCYTE (test code = LYMPH) % 12.9-45.1 MONOCYTE (test code = MON) % 0-11 PLATELET ESTIMATE (test code = ADEQUATE PLTEST) PLATELET MORPHOLOGY (test code = NORMAL PLTMORPH) HGB [id number] 00:34:00 Test Item Value Reference Range Interpretation Comments HEMOGLOBIN (test code = HGB) 7.4 G/DL 11.2-14.9 L HEMATOCRIT (test code = HCT) 23.1 % 33.2-43.5 L LACTIC [id number] 00:28:00 Test Item Value Reference Range Interpretation Comments LACTIC ACID (test code = LACT) 2.2 MMOL/L 0.7-2.1 H GLUCOSE BEDSIDE [id number] 00:12:00 Test Item Value Reference Range Interpretation Comments GLUCOSE BEDSIDE TESTING (test code = 88 MG/DL 60-99 N GLUBED) GLUCOSE BEDSIDE [id number] 22:03:00 Test Item Value Reference Range Interpretation Comments GLUCOSE BEDSIDE TESTING (test code = 75 MG/DL 60-99 N GLUBED) LACTIC [id number] 18:59:00 Test Item Value Reference Range Interpretation Comments LACTIC ACID (test code = LACT) 2.7 MMOL/L 0.7-2.1 H UNABLE TO DRAW BLOOD, REASON: CBNNOTIFIED PATIENT CARE STAFF: [facility] 12/23/19 AT [facility] BY Kristen Henry AnGLUCOSE BEDSIDE [id number] 16:34:00 Test Item Value Reference Range Interpretation Comments GLUCOSE BEDSIDE TESTING (test code = 81 MG/DL 60-99 N GLUBED) LACTIC [id number] 16:07:00 Test Item Value Reference Range Interpretation Comments LACTIC ACID (test code = LACT) 2.8 MMOL/L 0.7-2.1 H UNABLE TO DRAW BLOOD, REASON: CBNNOTIFIED PATIENT CARE STAFF: [facility] 12/23/19 AT [facility] BY Kristen Henry [id number] 15:54:00 Test Item Value Reference Range Interpretation Comments HEMOGLOBIN (test code = HGB) 7.8 G/DL 11.2-14.9 L UNABLE TO DRAW BLOOD, REASON: CBNNOTIFIED PATIENT CARE STAFF: [facility] 12/23/19 AT [facility] BY Kristen HenryHGB [id number] 12:42:00 Test Item Value Reference Range Interpretation Comments HEMOGLOBIN (test code = HGB) 9.4 G/DL 11.2-14.9 L HEMATOCRIT (test code = HCT) 28.8 % 33.2-43.5 L BASIC METABOLIC [id number] 12:29:00 Test Item Value Reference Range Interpretation Comments SODIUM (test code = 140 MMOL/L 137-145 N NA) POTASSIUM (test code = 3.5 MMOL/L 3.5-5.1 N K) CHLORIDE (test code = 110 MMOL/L 98-107 H CL) CARBON DIOXIDE (test 21 MMOL/L 22-30 L code = CO2) GLUCOSE (test code = 93 MG/DL 74-106 GLU) BLOOD UREA NITROGEN 40 MG/DL 7-17 H (test code = BUN) GLOMERULAR FILTRATION 53 Report ing units: RATE (test code = GFR) ml/mi n/1.73 m2 (Modified MDRD Formula)Referen ce Range: > or = 6 0 ml/min/1.73 m2 CREATININE (test code 1.00 MG/DL 0.52-1.04 N = CREAT) CALCIUM (test code = 7.6 MG/DL 8.4-10.2 L CA) [id number] 12:29:00 Test Item Value Reference Range Interpretation Comments MAGNESIUM (test code = MAG) 1.4 MG/DL 1.6-2.3 L LACTIC [id number] 12:27:00 Test Item Value Reference Range Interpretation Comments LACTIC ACID (test code = LACT) 3.1 MMOL/L 0.7-2.1 H BASIC METABOLIC [id number] 12:27:00 Test Item Value Reference Range Interpretation Comments SODIUM (test code = 140 MMOL/L 137-145 N NA) POTASSIUM (test code = 3.5 MMOL/L 3.5-5.1 N K) CHLORIDE (test code = 110 MMOL/L 98-107 H CL) CARBON DIOXIDE (test 21 MMOL/L 22-30 L code = CO2) GLUCOSE (test code = MG/DL 74-106 GLU) BLOOD UREA NITROGEN MG/DL 7-17 (test code = BUN) GLOMERULAR FILTRATION 53 Report ing units: RATE (test code = GFR) ml/mi n/1.73 m2 (Modified MDRD Formula)Referen ce Range: > or = 6 0 ml/min/1.73 m2 CREATININE (test code 1.00 MG/DL 0.52-1.04 N = CREAT) CALCIUM (test code = MG/DL 8.7-9.7 CA) [id number] 12:27:00 Test Item Value Reference Range Interpretation Comments MAGNESIUM (test code = MAG) MG/DL 1.6-2.3 BASIC METABOLIC [id number] 12:24:00 Test Item Value Reference Range Interpretation Comments SODIUM (test code = NA) 140 MMOL/L 137-145 N POTASSIUM (test code = K) 3.5 MMOL/L 3.5-5.1 N CHLORIDE (test code = CL) 110 MMOL/L 98-107 H CARBON DIOXIDE (test code = CO2) MMOL/L 22-30 GLUCOSE (test code = GLU) MG/DL 74-106 BLOOD UREA NITROGEN (test code = MG/DL 7-17 BUN) GLOMERULAR FILTRATION RATE (test code = GFR) CREATININE (test code = CREAT) MG/DL 0.52-1.04 CALCIUM (test code = CA) MG/DL 8.7-9.7 [id number] 12:24:00 Test Item Value Reference Range Interpretation Comments MAGNESIUM (test code = MAG) MG/DL 1.6-2.3 LACTIC [id number] 09:12:00 Test Item Value Reference Range Interpretation Comments LACTIC ACID (test code = LACT) 3.6 MMOL/L 0.7-2.1 H [id number] 09:05:00 Test Item Value Reference Range Interpretation Comments HEMOGLOBIN (test code = HGB) 10.9 G/DL 11.2-14.9 L - XR CHEST [id number] 06:04:00 [facility] : 1940 Sex: F Patient Name: JORGE A HORTA Unit No: [id number] EXAMS: CPT CODE: [id number] XR CHEST 1V [id number] LOCATION: H43 EXAM: - XR CHEST 1V HISTORY: On Ventilator TECHNIQUE: Frontal view of the chest. COMPARISON: 12/22/2019 FINDINGS: There is no significant interval change in cardiopulmonary status. Increased density throughout the left chest consistent with the presence of layering pleural fluid and parenchymal consolidation within the left upper lung field and lung base. No evidence of pneumothorax. Cardiomediastinal contour is stable. Endotracheal tube has been advanced. Its tip lies approximately 2.5 cm above the mayank. Nasogastric tube tip is excluded from view but below the left hemidiaphragm. IMPRESSION: No interval change in cardiopulmonary status. Endotracheal tube has been advanced and appears adequately positioned. at 0604 Reported and signed by: Deb Rivera MD CC: Ramu Sutherland MD; Jose Alfredo Goff MD; Rashid Son MD Technologist: Yobani Elias, (R) Transcrpt Date/Tm/Trnsp: 12/23/2019 (0604) t.SDR.[email or web address] Orig Print D/T: S: 12/23/2019(0707) [facility] NAME: HORTA,JORGE A [id number] [address] PHYS: Jose [place] [address] : 1940 AGE: 79 SEX: F LOC: Z.SI06 A PHONE #: [phone] EXAM DATE: 12/23/2019 STATUS: ADM IN FAX #: [phone] RADIOLOGY NO: PAGE 1 Signed ReportCBC W/AUTO [id number] 05:32:00 Test Item Value Reference Range Interpretation Comments WHITE BLOOD CELL (test code = 17.6 K/MM3 3.8-9.8 H WBC) RED BLOOD CELL (test code = 3.67 M/MM3 3.58-4.97 RBC) HEMOGLOBIN (test code = HGB) 10.9 G/DL 11.2-14.9 L HEMATOCRIT (test code = HCT) 33.1 % 33.2-43.5 L MEAN CELL VOLUME (test code = 90 fL 80.7-99.1 N MCV) MEAN CELL HGB (test code = MCH) 29.7 pg 27.0-34.1 N MEAN CELL HGB CONCETRATION 32.9 % 32.2-35.7 N (test code = MCHC) RED CELL DISTRIBUTION WIDTH 15.9 % 12.1-15.2 H (test code = RDW) PLATELET COUNT (test code = 81 K/MM3 129-368 L PLT) MEAN PLATELET VOLUME (test code 11.3 fl 7.4-10.4 H = MPV) NEUTROPHIL % (test code = NT%) 92.4 % 43-75 H IMMATURE GRANULOCYTE % (test 2.0 % 0.0-2.0 N code = IG%) LYMPHOCYTE % (test code = LY%) 3.1 % 14-44 L MONOCYTE % (test code = MO%) 1.7 % 4-13 L EOSINOPHIL % (test code = EO%) 0.1 % 0-6 N BASOPHIL % (test code = BA%) 0.7 % 0-2 N NUCLEATED RBC % (test code = 0.1 % 0-1.0 N NRBC%) NEUTROPHIL # (test code = NT#) 16.29 K/mm3 2.0-7.6 H IMMATURE GRANULOCYTE # (test 0.36 x10 3/uL 0-0.03 H code = IG#) LYMPHOCYTE # (test code = LY#) 0.54 K/mm3 1.0-3.8 L MONOCYTE # (test code = MO#) 0.30 K/mm3 0.1-0.8 N EOSINOPHIL # (test code = EO#) 0.02 K/mm3 0.0-0.2 N BASOPHIL # (test code = BA#) 0.13 K/mm3 0.0-0.2 N NUCLEATED RBC # (test code = 0.02 K/mm3 0.0-0.1 N NRBC#) COMPREHENSIVE METABOLIC [id number] 05:23:00 Test Item Value Reference Range Interpretation Comments SODIUM (test code = 140 MMOL/L 137-145 N NA) POTASSIUM (test code 3.2 MMOL/L 3.5-5.1 L = K) CHLORIDE (test code = 110 MMOL/L 98-107 H CL) CARBON DIOXIDE (test 23 MMOL/L 22-30 N code = CO2) ANION GAP (test code 10 MMOL/L 14-24 L = GAP) GLUCOSE (test code = 133 MG/DL 74-106 H GLU) BLOOD UREA NITROGEN 39 MG/DL 7-17 H (test code = BUN) GLOMERULAR FILTRATION > 60 Report ing units: RATE (test code = ml/min/1.7 3 m2 GFR) (Modified MDRD Formula)Referen ce Range: > or = 6 0 ml/min/1.73 m2 CREATININE (test code 0.80 MG/DL 0.52-1.04 N = CREAT) TOTAL PROTEIN (test 3.5 G/DL 6.3-8.2 L code = PROT) ALBUMIN (test code = 1.6 G/DL 3.5-5.0 L ALB) CALCIUM (test code = 7.6 MG/DL 8.4-10.2 L CA) BILIRUBIN TOTAL (test 1.6 MG/DL 0.2-1.3 H Eltrom bopag code = BILT) Interference fo r Vitros Product TBil, BuBc: ======= ======= ======A ssay Eltrombop ag Analyte/ Max Observed Avg. Bias Concentratio n Concentration Concentration== ======= ======= ======= =======TBil 7 mg/dl TBil/ 1.2m g/dl +0.23mg.dl +0.20mg/dlBuBc 3.5mg/dl Bu/0.8mg/dl +0.25mg/dl +0.24mg/dlBuBc 7 mg/dl Bu/14.2mg/dl +0.38mg/dl +0.25mg/dlBuBc 5mg/dl Bc/0mg/dl +0.25mg/dl +0.15mg/dlBuBc 3.5mg/dl Bc/2.8mg/dl +0.25mg/dl +0.23mg/dl SGOT/AST (test code = 33 UNITS/L 14-36 AST) SGPT/ALT (test code = 16 UNITS/L <35 ALT) ALKALINE PHOSPHATASE 45 UNITS/L 38-126 (test code = ALKP) COMPREHENSIVE METABOLIC [id number] 05:09:00 Test Item Value Reference Range Interpretation Comments SODIUM (test code = NA) 140 MMOL/L 137-145 N POTASSIUM (test code = K) 3.2 MMOL/L 3.5-5.1 L CHLORIDE (test code = CL) 110 MMOL/L 98-107 H CARBON DIOXIDE (test code = CO2) MMOL/L 22-30 GLUCOSE (test code = GLU) MG/DL 74-106 BLOOD UREA NITROGEN (test code = MG/DL 7-17 BUN) GLOMERULAR FILTRATION RATE (test code = GFR) CREATININE (test code = CREAT) MG/DL 0.52-1.04 TOTAL PROTEIN (test code = PROT) G/DL 6.3-8.2 ALBUMIN (test code = ALB) 1.6 G/DL 3.5-5.0 L CALCIUM (test code = CA) MG/DL 8.7-9.7 BILIRUBIN TOTAL (test code = BILT) MG/DL 0.2-1.3 SGOT/AST (test code = AST) UNITS/L 15-37 SGPT/ALT (test code = ALT) UNITS/L <35 ALKALINE PHOSPHATASE (test code = UNITS/L 38-126 ALKP) COMPREHENSIVE METABOLIC [id number] 05:08:00 Test Item Value Reference Range Interpretation Comments SODIUM (test code = NA) MMOL/L 137-145 POTASSIUM (test code = K) MMOL/L 3.5-5.1 CHLORIDE (test code = CL) 110 MMOL/L 98-107 H CARBON DIOXIDE (test code = CO2) MMOL/L 22-30 GLUCOSE (test code = GLU) MG/DL 74-106 BLOOD UREA NITROGEN (test code = MG/DL 7-17 BUN) GLOMERULAR FILTRATION RATE (test code = GFR) CREATININE (test code = CREAT) MG/DL 0.52-1.04 TOTAL PROTEIN (test code = PROT) G/DL 6.3-8.2 ALBUMIN (test code = ALB) 1.6 G/DL 3.5-5.0 L CALCIUM (test code = CA) MG/DL 8.7-9.7 BILIRUBIN TOTAL (test code = BILT) MG/DL 0.2-1.3 SGOT/AST (test code = AST) UNITS/L 15-37 SGPT/ALT (test code = ALT) UNITS/L <35 ALKALINE PHOSPHATASE (test code = UNITS/L 38-126 ALKP) LACTIC [id number] 05:04:00 Test Item Value Reference Range Interpretation Comments LACTIC ACID (test code = LACT) 3.8 MMOL/L 0.7-2.1 H PATIENT RECEIVING BLOODCBC W/AUTO [id number] 03:12:00 Test Item Value Reference Range Interpretation Comments WHITE BLOOD CELL (test 8.5 K/MM3 3.8-9.8 N code = WBC) RED BLOOD CELL (test 2.41 M/MM3 3.58-4.97 L code = RBC) HEMOGLOBIN (test code 6.9 G/DL 11.2-14.9 LL CALLED TO NIVIA Hodges = HGB) & READBACK ON 12/22/19 AT 232 7 BY Min Aquino HEMATOCRIT (test code 22.0 % 33.2-43.5 L = HCT) MEAN CELL VOLUME (test 91 fL 80.7-99.1 N code = MCV) MEAN CELL HGB (test 28.6 pg 27.0-34.1 N code = MCH) MEAN CELL HGB 31.4 % 32.2-35.7 L CONCETRATION (test code = MCHC) RED CELL DISTRIBUTION 17.9 % 12.1-15.2 H WIDTH (test code = RDW) PLATELET COUNT (test 153 K/MM3 129-368 N code = PLT) MEAN PLATELET VOLUME 11.4 fl 7.4-10.4 H (test code = MPV) NEUTROPHIL % (test 86.6 % 43-75 H code = NT%) IMMATURE GRANULOCYTE % 3.1 % 0.0-2.0 H (test code = IG%) LYMPHOCYTE % (test 8.7 % 14-44 L code = LY%) MONOCYTE % (test code 1.1 % 4-13 L = MO%) EOSINOPHIL % (test 0.1 % 0-6 N code = EO%) BASOPHIL % (test code 0.4 % 0-2 N = BA%) NUCLEATED RBC % (test 0.6 % 0-1.0 N code = NRBC%) NEUTROPHIL # (test 7.36 K/mm3 2.0-7.6 N code = NT#) IMMATURE GRANULOCYTE # 0.26 x10 3/uL 0-0.03 H (test code = IG#) LYMPHOCYTE # (test 0.74 K/mm3 1.0-3.8 L code = LY#) MONOCYTE # (test code 0.09 K/mm3 0.1-0.8 L = MO#) EOSINOPHIL # (test 0.01 K/mm3 0.0-0.2 N code = EO#) BASOPHIL # (test code 0.03 K/mm3 0.0-0.2 N = BA#) NUCLEATED RBC # (test 0.05 K/mm3 0.0-0.1 N code = NRBC#) WBC [id number] 03:12:00 Test Item Value Reference Range Interpretation Comments RBC MORPHOLOGY REQUIRED (test code ABNORMAL = RBCM) TOTAL CELLS COUNTED (test code = 130 #CELLS TCC) SEGMENTED NEUTROPHILS (test code = 33.6 % 36.2-73.8 L SEG) BAND NEUTROPHIL (test code = BAND) 39.5 % 0-10 H LYMPHOCYTE (test code = LYMPH) 4.2 % 12.9-45.1 L ATYPICAL LYMPH (test code = 1.7 % 0-0 H ALYMPH) MONOCYTE (test code = MON) 0.0 % 0-11 N BASOPHIL (test code = BASO) 0.8 % 0-2 N METAMYELOCYTE (test code = META) 20.2 % 0-0 H POLYCHROMASIA (test code = POLC) FEW NONE HYPOCHROMIA (test code = HYPO) SLIGHT NONE ANISOCYTOSIS (test code = ANISO) SLIGHT NONE SPHEROCYTES (test code = SPH) FEW NONE TARGET CELLS (test code = TGT) FEW NONE GIAN CELLS (test code = GIAN) FEW NONE ACANTHOCYTES (test code = ACAN) FEW NONE SCHISTOCYTES (test code = SCARLETT) FEW NONE TOXIC GRANULATION (test code = FEW NONE TOX) PLATELET ESTIMATE (test code = ADEQUATE ADEQUATE PLTEST) PLATELET MORPHOLOGY (test code = NORMAL NORMAL PLTMORPH) PROTHROMBIN [id number] 00:01:00 Test Item Value Reference Range Interpretation Comments PROTHROMBIN TIME 28.0 SECONDS 9.4-12.5 H PATIENT (test code = PTP) INTERNATIONAL NORMAL 2.5 The INR is to be RATIO (test code = used only for INR) monitoring oral anticoagulantth erap y. INDICATION I NR VALUE ---- ---- ---- -------1. Prophylaxis, de ep venous thrombos is, including hig h risk surgery. 2.0 - 3.0 2. Prophylaxis, de ep venous thrombos is, hip surgery, treatment for d eep venous thrombosis or pulmonary prevention of systemic emboli sm in patients wit h valvular heart disease, atrial fibrillation, tissue heart va lve, or acute myocar dial infarction. 2.0 - 3 .0 3. Mechanical prosthesis hear t valves, recurrent syste eric embolism. 3.0 - 4.5 QNS AT 2318. SPOKE TO [employer]. LINE DRAWPTT [id number] 00:01:00 Test Item Value Reference Range Interpretation Comments PTT ACTIVATED (test code = APTT) 47.6 SECONDS 25.1-36.5 H QNS AT 2318. SPOKE TO [employer]. LINE [id number] 00:01:00 Test Item Value Reference Range Interpretation Comments FIBRINOGEN (test code = FIB) 181 mg/dL 200-393 L QNS AT 2318. SPOKE TO [employer]. LINE [id number] 00:01:00 Test Item Value Reference Range Interpretation Comments D-DIMER (test 58857 ng/mLFEU 0-499 H Negative Pre dictive Value code = cutoff for DVT & PE: < 500 DDIMER) ng/mL FEUInterp retation: A value of < 500 ng/mL FEU has a NegativeP redictive Value in ruling out a DVT or PE diagnosis .A value of 500 ng/mL or gr eater is considered Positive.Positi ve result cannot be used for the diagnosis of DV T andPE without using o f standard radiological pr ocedures. QNS AT 2318. SPOKE TO [employer]. LINE DRAWARTERIAL BLOOD [id number] 23:52:00 Test Item Value Reference Range Interpretation Comments ARTERIAL BLOOD GAS PH (test code 7.34 mmHg 7.35-7.45 L = PHA) ARTERIAL BLOOD GAS PCO2 (test 48.1 mmHg 35.0-45.0 H code = PCO2A) ARTERIAL BLOOD GAS PO2 (test code 84.9 mmol/L 80.0-100.0 N = PO2A) BICARBONATE TOTAL HCO3 (test code 25.3 mmol/L 20.0-26.0 N = HCO3) BASE EXCESS (test code = STEVEN) -1.1 mmol/L -3.0-3.0 N ABG O2 SATURATION (test code = 95.8 % 95.0-100.0 N SATA) ABG DELIVERY (test code = KAROLINA) VENT ABG VENT MODE (test code = MODEA) A/C ABG VENT RESP RATE (test code = 22.0 /MIN RRA) ABG TIDAL VOLUME (test code = 450 ml TVA) ABG PEEP (test code = PEEPA) 5.0 cmH2O ABG TEMPERATURE (test code = 37.0 C >37 TEMPA) ABG SITE (test code = SITEA) AL ALLENS TEST (test code = ALLENS) NA CHECK FIO2 (test code = COHBGFFIO2) 85 % PaO2/[id number] 23:52:00 Test Item Value Reference Range Interpretation Comments PaO2/FiO2 (test code = [id number]) mm/Hg ARTERIAL BLOOD [id number] 23:52:00 Test Item Value Reference Range Interpretation Comments ARTERIAL BLOOD GAS PH (test code 7.34 mmHg 7.35-7.45 L = PHA) ARTERIAL BLOOD GAS PCO2 (test 48.1 mmHg 35.0-45.0 H code = PCO2A) ARTERIAL BLOOD GAS PO2 (test code 84.9 mmol/L 80.0-100.0 N = PO2A) BICARBONATE TOTAL HCO3 (test code 25.3 mmol/L 20.0-26.0 N = HCO3) BASE EXCESS (test code = STEVEN) -1.1 mmol/L -3.0-3.0 N ABG O2 SATURATION (test code = 95.8 % 95.0-100.0 N SATA) ABG DELIVERY (test code = KAROLINA) VENT ABG VENT MODE (test code = MODEA) A/C ABG VENT RESP RATE (test code = 22.0 /MIN RRA) ABG TIDAL VOLUME (test code = 450 ml TVA) ABG PEEP (test code = PEEPA) 5.0 cmH2O ABG TEMPERATURE (test code = 37.0 C >37 TEMPA) ABG SITE (test code = SITEA) AL ALLENS TEST (test code = ALLENS) NA CHECK FIO2 (test code = COHBGFFIO2) 85 % PaO2/[id number] 23:52:00 Test Item Value Reference Range Interpretation Comments PaO2/FiO2 (test code = [id number]) 99.88 mm/Hg BASIC METABOLIC [id number] 23:35:00 Test Item Value Reference Range Interpretation Comments SODIUM (test code = 140 MMOL/L 137-145 N NA) POTASSIUM (test code = 2.6 MMOL/L 3.5-5.1 LL MAYNARD D TO N-Trig& Algramo) READBACK ON AT 2335 BY Chetan Sewell er CHLORIDE (test code = 108 MMOL/L 98-107 H CL) CARBON DIOXIDE (test 25 MMOL/L 22-30 N code = CO2) ANION GAP (test code = 10 MMOL/L 14-24 L GAP) GLUCOSE (test code = MG/DL 74-106 GLU) BLOOD UREA NITROGEN 40 MG/DL 7-17 H (test code = BUN) GLOMERULAR FILTRATION 60 Report ing units: RATE (test code = GFR) ml/mi n/1.73 m2 (Modified MDRD Formula)Referen ce Range: > or = 6 0 ml/min/1.73 m2 CREATININE (test code 0.90 MG/DL 0.52-1.04 N = CREAT) CALCIUM (test code = MG/DL 8.7-9.7 CA) [id number] 23:35:00 Test Item Value Reference Range Interpretation Comments AMYLASE (test code = CAROLE) 89 UNITS/L 30-110 N [id number] 23:35:00 Test Item Value Reference Range Interpretation Comments LIPASE (test code = LIP) UNITS/L 23-300 [id number] 23:35:00 Test Item Value Reference Range Interpretation Comments MAGNESIUM (test code = MAG) MG/DL 1.6-2.3 BASIC METABOLIC [id number] 23:35:00 Test Item Value Reference Range Interpretation Comments SODIUM (test code = 140 MMOL/L 137-145 N NA) POTASSIUM (test code = 2.6 MMOL/L 3.5-5.1 LL MAYNARD D TO Mytrus.& Algramo) READBACK ON AT 2335 BY Chetan Sewell er CHLORIDE (test code = 108 MMOL/L 98-107 H CL) CARBON DIOXIDE (test 25 MMOL/L 22-30 N code = CO2) ANION GAP (test code = 10 MMOL/L 14-24 L GAP) GLUCOSE (test code = 62 MG/DL 74-106 L GLU) BLOOD UREA NITROGEN 40 MG/DL 7-17 H (test code = BUN) GLOMERULAR FILTRATION 60 Report ing units: RATE (test code = GFR) ml/mi n/1.73 m2 (Modified MDRD Formula)Referen ce Range: > or = 6 0 ml/min/1.73 m2 CREATININE (test code 0.90 MG/DL 0.52-1.04 N = CREAT) CALCIUM (test code = 8.0 MG/DL 8.4-10.2 L CA) [id number] 23:35:00 Test Item Value Reference Range Interpretation Comments AMYLASE (test code = CAROLE) 89 UNITS/L 30-110 N [id number] 23:35:00 Test Item Value Reference Range Interpretation Comments LIPASE (test code = LIP) 39 UNITS/L 23-300 N [id number] 23:35:00 Test Item Value Reference Range Interpretation Comments MAGNESIUM (test code = MAG) 1.4 MG/DL 1.6-2.3 L LACTIC [id number] 23:32:00 Test Item Value Reference Range Interpretation Comments LACTIC ACID (test code = LACT) 2.6 MMOL/L 0.7-2.1 H BASIC METABOLIC [id number] 23:31:00 Test Item Value Reference Range Interpretation Comments SODIUM (test code = NA) MMOL/L 137-145 POTASSIUM (test code = K) MMOL/L 3.5-5.1 CHLORIDE (test code = CL) MMOL/L 98-107 CARBON DIOXIDE (test code = CO2) MMOL/L 22-30 GLUCOSE (test code = GLU) MG/DL 74-106 BLOOD UREA NITROGEN (test code = 40 MG/DL 7-17 H BUN) GLOMERULAR FILTRATION RATE (test code = GFR) CREATININE (test code = CREAT) MG/DL 0.52-1.04 CALCIUM (test code = CA) MG/DL 8.7-9.7 [id number] 23:31:00 Test Item Value Reference Range Interpretation Comments AMYLASE (test code = CAROLE) UNITS/L 30-110 [id number] 23:31:00 Test Item Value Reference Range Interpretation Comments LIPASE (test code = LIP) UNITS/L 23-300 [id number] 23:31:00 Test Item Value Reference Range Interpretation Comments MAGNESIUM (test code = MAG) MG/DL 1.6-2.3 CBC W/AUTO [id number] 23:28:00 Test Item Value Reference Range Interpretation Comments WHITE BLOOD CELL (test 8.5 K/MM3 3.8-9.8 N code = WBC) RED BLOOD CELL (test 2.41 M/MM3 3.58-4.97 L code = RBC) HEMOGLOBIN (test code 6.9 G/DL 11.2-14.9 LL CALLED TO NIVIA Hodges = HGB) & READBACK ON 12/22/19 AT 232 7 BY Min Aquino HEMATOCRIT (test code 22.0 % 33.2-43.5 L = HCT) MEAN CELL VOLUME (test 91 fL 80.7-99.1 N code = MCV) MEAN CELL HGB (test 28.6 pg 27.0-34.1 N code = MCH) MEAN CELL HGB 31.4 % 32.2-35.7 L CONCETRATION (test code = MCHC) RED CELL DISTRIBUTION 17.9 % 12.1-15.2 H WIDTH (test code = RDW) PLATELET COUNT (test 153 K/MM3 129-368 N code = PLT) MEAN PLATELET VOLUME 11.4 fl 7.4-10.4 H (test code = MPV) NEUTROPHIL % (test 86.6 % 43-75 H code = NT%) IMMATURE GRANULOCYTE % 3.1 % 0.0-2.0 H (test code = IG%) LYMPHOCYTE % (test 8.7 % 14-44 L code = LY%) MONOCYTE % (test code 1.1 % 4-13 L = MO%) EOSINOPHIL % (test 0.1 % 0-6 N code = EO%) BASOPHIL % (test code 0.4 % 0-2 N = BA%) NUCLEATED RBC % (test 0.6 % 0-1.0 N code = NRBC%) NEUTROPHIL # (test 7.36 K/mm3 2.0-7.6 N code = NT#) IMMATURE GRANULOCYTE # 0.26 x10 3/uL 0-0.03 H (test code = IG#) LYMPHOCYTE # (test 0.74 K/mm3 1.0-3.8 L code = LY#) MONOCYTE # (test code 0.09 K/mm3 0.1-0.8 L = MO#) EOSINOPHIL # (test 0.01 K/mm3 0.0-0.2 N code = EO#) BASOPHIL # (test code 0.03 K/mm3 0.0-0.2 N = BA#) NUCLEATED RBC # (test 0.05 K/mm3 0.0-0.1 N code = NRBC#) DIFFERENTIAL [id number] 23:28:00 Test Item Value Reference Range Interpretation Comments RBC MORPHOLOGY REQUIRED (test code = RBCM) PLATELET ESTIMATE (test code = PLTEST) ADEQUATE PLATELET MORPHOLOGY (test code = NORMAL PLTMORPH) CBC W/AUTO [id number] 23:28:00 Test Item Value Reference Range Interpretation Comments WHITE BLOOD CELL (test 8.5 K/MM3 3.8-9.8 N code = WBC) RED BLOOD CELL (test 2.41 M/MM3 3.58-4.97 L code = RBC) HEMOGLOBIN (test code 6.9 G/DL 11.2-14.9 LL CALLED TO NIVIA Hodges = HGB) & READBACK ON 12/22/19 AT 232 7 BY Min Aquino HEMATOCRIT (test code 22.0 % 33.2-43.5 L = HCT) MEAN CELL VOLUME (test 91 fL 80.7-99.1 N code = MCV) MEAN CELL HGB (test 28.6 pg 27.0-34.1 N code = MCH) MEAN CELL HGB 31.4 % 32.2-35.7 L CONCETRATION (test code = MCHC) RED CELL DISTRIBUTION 17.9 % 12.1-15.2 H WIDTH (test code = RDW) PLATELET COUNT (test 153 K/MM3 129-368 N code = PLT) MEAN PLATELET VOLUME 11.4 fl 7.4-10.4 H (test code = MPV) NEUTROPHIL % (test 86.6 % 43-75 H code = NT%) IMMATURE GRANULOCYTE % 3.1 % 0.0-2.0 H (test code = IG%) LYMPHOCYTE % (test 8.7 % 14-44 L code = LY%) MONOCYTE % (test code 1.1 % 4-13 L = MO%) EOSINOPHIL % (test 0.1 % 0-6 N code = EO%) BASOPHIL % (test code 0.4 % 0-2 N = BA%) NUCLEATED RBC % (test 0.6 % 0-1.0 N code = NRBC%) NEUTROPHIL # (test 7.36 K/mm3 2.0-7.6 N code = NT#) IMMATURE GRANULOCYTE # 0.26 x10 3/uL 0-0.03 H (test code = IG#) LYMPHOCYTE # (test 0.74 K/mm3 1.0-3.8 L code = LY#) MONOCYTE # (test code 0.09 K/mm3 0.1-0.8 L = MO#) EOSINOPHIL # (test 0.01 K/mm3 0.0-0.2 N code = EO#) BASOPHIL # (test code 0.03 K/mm3 0.0-0.2 N = BA#) NUCLEATED RBC # (test 0.05 K/mm3 0.0-0.1 N code = NRBC#) DIFFERENTIAL [id number] 23:28:00 Test Item Value Reference Range Interpretation Comments RBC MORPHOLOGY REQUIRED (test code = RBCM) PLATELET ESTIMATE (test code = PLTEST) ADEQUATE PLATELET MORPHOLOGY (test code = NORMAL PLTMORPH) PLATELET [id number] 23:14:00 Test Item Value Reference Range Interpretation Comments PLATELET COUNT TEST NOT PERFORMED 129-368 SEE CBC REPORT (test code = PLT) K/MM3 - XR CHEST [id number] 23:02:00 [facility] : 1940 Sex: F Patient Name: JORGE A HORTA Unit No: [id number] EXAMS: CPT CODE: [id number] XR CHEST 1V [id number] AFTER HOURS SERVICE ON: 12/22/2019 11:01 PM AP Portable Chest Location Code M12 HISTORY: Intubated FINDINGS: There is a worsening consolidation and infiltrates in the left lung base now also involving the upper lobe compared to prior x-ray of 12/21/2019. There is no pneumothorax or sizable pleural effusion. There is an NGT in the stomach but the end of the NGT is not visualized. ETT located just below the level of the clavicles. IMPRESSION: Worsening large alveolar infiltrates in the left hemithorax. at 2302 Reported and signed by: Vidal Rdz M.D. CC: Ramu Sutherland MD; Jose Alfredo Goff MD; Rashid Son MD Technologist: Diana Quintana (RT) Transcrpt Date/Tm/Trnsp: 12/22/2019 (2301) [email or web address] Orig Print D/T: S: 12/22/2019 (2305) [facility] NAME: JORGE A HORTA [id number] [address] PHYS: Jose [place] [address] : 1940 AGE: 79 SEX: F LOC: [id number] PHONE #: [phone] EXAM DATE: 12/22/2019 STATUS: ADM IN FAX #: [phone] RADIOLOGY NO: PAGE 1 Signed ReportARTERIAL BLOOD [id number] 22:53:00 Test Item Value Reference Range Interpretation Comments ARTERIAL BLOOD GAS PH 7.18 mmHg 7.35-7.45 LL (test code = PHA) ARTERIAL BLOOD GAS 65.1 mmHg 35.0-45.0 HH PCO2 (test code = PCO2A) ARTERIAL BLOOD GAS PO2 160.4 mmol/L 80.0-100.0 H (test code = PO2A) BICARBONATE TOTAL HCO3 23.6 mmol/L 20.0-26.0 N (test code = HCO3) BASE EXCESS (test code -6.1 mmol/L -3.0-3.0 L = STEVEN) ABG O2 SATURATION 98.5 % 95.0-100.0 N All critic al values (test code = SATA) report to and readback by by MAKSIMHQD at 12/22/2019 10:5 2:56 PM ABG DELIVERY (test AMBU code = KAR[place]) ABG TEMPERATURE (test 37.0 C >37 code = TEMPA) ABG SITE (test code = AL SITEA) ALLENS TEST (test code NA CHECK = ALLENS) FIO2 (test code = 100 % COHBGFFIO2) PaO2/[id number] 22:53:00 Test Item Value Reference Range Interpretation Comments PaO2/FiO2 (test code = [id number]) mm/Hg ARTERIAL BLOOD [id number] 22:53:00 Test Item Value Reference Range Interpretation Comments ARTERIAL BLOOD GAS PH 7.18 mmHg 7.35-7.45 LL (test code = PHA) ARTERIAL BLOOD GAS 65.1 mmHg 35.0-45.0 HH PCO2 (test code = PCO2A) ARTERIAL BLOOD GAS PO2 160.4 mmol/L 80.0-100.0 H (test code = PO2A) BICARBONATE TOTAL HCO3 23.6 mmol/L 20.0-26.0 N (test code = HCO3) BASE EXCESS (test code -6.1 mmol/L -3.0-3.0 L = STEVEN) ABG O2 SATURATION 98.5 % 95.0-100.0 N All critic al values (test code = SATA) report to and readback by by MAKSIMHQD at 12/22/2019 10:5 2:56 PM ABG DELIVERY (test AMBU code = KAROLINA) ABG TEMPERATURE (test 37.0 C >37 code = TEMPA) ABG SITE (test code = AL SITEA) ALLENS TEST (test code NA CHECK = ALLENS) FIO2 (test code = 100 % COHBGFFIO2) PaO2/[id number] 22:53:00 Test Item Value Reference Range Interpretation Comments PaO2/FiO2 (test code = [id number]) 160.40 mm/Hg BASIC METABOLIC [id number] 19:39:00 Test Item Value Reference Range Interpretation Comments SODIUM (test code = 136 MMOL/L 137-145 L NA) POTASSIUM (test code = 3.0 MMOL/L 3.5-5.1 L K) CHLORIDE (test code = 104 MMOL/L 98-107 N CL) CARBON DIOXIDE (test 24 MMOL/L 22-30 N code = CO2) GLUCOSE (test code = 95 MG/DL 74-106 N GLU) BLOOD UREA NITROGEN 41 MG/DL 7-17 H (test code = BUN) GLOMERULAR FILTRATION > 60 Report ing units: RATE (test code = GFR) ml/mi n/1.73 m2 (Modified MDRD Formula)Referen ce Range: > or = 6 0 ml/min/1.73 m2 CREATININE (test code 0.80 MG/DL 0.52-1.04 N = CREAT) CALCIUM (test code = 7.4 MG/DL 8.4-10.2 L CA) Comments to Medical Biller: USE BLOOD RECENTLY COLLECTED PLEASEIs this a LINE draw? NBASIC METABOLIC [id number] 19:38:00 Test Item Value Reference Range Interpretation Comments SODIUM (test code = 136 MMOL/L 137-145 L NA) POTASSIUM (test code = 3.0 MMOL/L 3.5-5.1 L K) CHLORIDE (test code = 104 MMOL/L 98-107 N CL) CARBON DIOXIDE (test MMOL/L 22-30 code = CO2) GLUCOSE (test code = MG/DL 74-106 GLU) BLOOD UREA NITROGEN MG/DL 7-17 (test code = BUN) GLOMERULAR FILTRATION > 60 Report ing units: RATE (test code = GFR) ml/mi n/1.73 m2 (Modified MDRD Formula)Referen ce Range: > or = 6 0 ml/min/1.73 m2 CREATININE (test code 0.80 MG/DL 0.52-1.04 N = CREAT) CALCIUM (test code = MG/DL 8.7-9.7 CA) Comments to Medical Biller: USE BLOOD RECENTLY COLLECTED PLEASEIs this a LINE draw? NBASIC METABOLIC [id number] 19:36:00 Test Item Value Reference Range Interpretation Comments SODIUM (test code = NA) 136 MMOL/L 137-145 L POTASSIUM (test code = K) 3.0 MMOL/L 3.5-5.1 L CHLORIDE (test code = CL) 104 MMOL/L 98-107 N CARBON DIOXIDE (test code = CO2) MMOL/L 22-30 GLUCOSE (test code = GLU) MG/DL 74-106 BLOOD UREA NITROGEN (test code = MG/DL 7-17 BUN) GLOMERULAR FILTRATION RATE (test code = GFR) CREATININE (test code = CREAT) MG/DL 0.52-1.04 CALCIUM (test code = CA) MG/DL 8.7-9.7 Comments to Medical Biller: USE BLOOD RECENTLY COLLECTED PLEASEIs this a LINE draw? NPROTHROMBIN [id number] 19:22:00 Test Item Value Reference Range Interpretation Comments PROTHROMBIN TIME 17.1 SECONDS 9.4-12.5 H PATIENT (test code = PTP) INTERNATIONAL NORMAL 1.6 The INR is to be RATIO (test code = used only for INR) monitoring oral anticoagulantth erap y. INDICATION I NR VALUE ---- ---- ---- -------1. Prophylaxis, de ep venous thrombos is, including hig h risk surgery. 2.0 - 3.0 2. Prophylaxis, de ep venous thrombos is, hip surgery, treatment for d eep venous thrombosis or pulmonary prevention of systemic emboli sm in patients wit h valvular heart disease, atrial fibrillation, tissue heart va lve, or acute myocar dial infarction. 2.0 - 3 .0 3. Mechanical prosthesis hear t valves, recurrent syste eric embolism. 3.0 - 4.5 Comments to Medical Biller: USE BLOOD RECENTLY COLLECTED PLEASE PELASEPTT [id number] 19:22:00 Test Item Value Reference Range Interpretation Comments PTT ACTIVATED (test code = APTT) 28.4 SECONDS 25.1-36.5 N Comments to Medical Biller: USE BLOOD RECENTLY COLLECTED PLEASE PELASEHGB [id number] 18:56:00 Test Item Value Reference Range Interpretation Comments HEMOGLOBIN (test code = HGB) 8.8 G/DL 11.2-14.9 L HEMATOCRIT (test code = HCT) 27.5 % 33.2-43.5 L GLUCOSE BEDSIDE [id number] 17:38:00 Test Item Value Reference Range Interpretation Comments GLUCOSE BEDSIDE TESTING (test code = 86 MG/DL 60-99 N GLUBED) HGB [id number] 14:37:00 Test Item Value Reference Range Interpretation Comments HEMOGLOBIN (test code = HGB) 9.3 G/DL 11.2-14.9 L HEMATOCRIT (test code = HCT) 29.2 % 33.2-43.5 L GLUCOSE BEDSIDE [id number] 12:04:00 Test Item Value Reference Range Interpretation Comments GLUCOSE BEDSIDE TESTING (test code = 88 MG/DL 60-99 N GLUBED) COMPREHENSIVE METABOLIC [id number] 07:26:00 Test Item Value Reference Range Interpretation Comments SODIUM (test code = 135 MMOL/L 137-145 L NA) POTASSIUM (test code 3.5 MMOL/L 3.5-5.1 N = K) CHLORIDE (test code 106 MMOL/L 98-107 N = CL) CARBON DIOXIDE (test 23 MMOL/L 22-30 N code = CO2) GLUCOSE (test code = 111 MG/DL 74-106 H GLU) BLOOD UREA NITROGEN 45 MG/DL 7-17 H (test code = BUN) GLOMERULAR > 60 Reporting units : FILTRATION RATE ml/min/1.73 m2 (test code = GFR) (Modified MDRD Formula)Referen ce Range: > or = 6 0 ml/min/1.73 m2 CREATININE (test 0.70 MG/DL 0.52-1.04 N code = CREAT) TOTAL PROTEIN (test 5.1 G/DL 6.3-8.2 L code = PROT) ALBUMIN (test code = 2.0 G/DL 3.5-5.0 L ALB) CALCIUM (test code = 7.3 MG/DL 8.4-10.2 L CA) BILIRUBIN TOTAL 0.8 MG/DL 0.2-1.3 N Eltrombopag (test code = BILT) Interfere nce for Vitros Product TBil, BuBc: ======= ======= ======A ssay Eltrombop ag Analyte/ Max Observed Avg. Bias Concentratio n Concentration Concentration== ======= ======= ======= =======TBil 7 mg/dl TBil/ 1.2m g/dl +0.23mg.dl +0.20mg/dlBuBc 3.5mg/dl Bu/0.8mg/dl +0.25mg/dl +0.24mg/dlBuBc 7 mg/dl Bu/14.2mg/dl +0.38mg/dl +0.25mg/dlBuBc 5mg/dl Bc/0mg/dl +0.25mg/dl +0.15mg/dlBuBc 3.5mg/dl Bc/2.8mg/dl +0.25mg/dl +0.23mg/dl SGOT/AST (test code 70 UNITS/L 14-36 H = AST) SGPT/ALT (test code 30 UNITS/L <35 = ALT) ALKALINE PHOSPHATASE 116 UNITS/L 38-126 N (test code = ALKP) COMPREHENSIVE METABOLIC [id number] 07:25:00 Test Item Value Reference Range Interpretation Comments SODIUM (test code = 135 MMOL/L 137-145 L NA) POTASSIUM (test code 3.5 MMOL/L 3.5-5.1 N = K) CHLORIDE (test code 106 MMOL/L 98-107 N = CL) CARBON DIOXIDE (test 23 MMOL/L 22-30 N code = CO2) GLUCOSE (test code = MG/DL 74-106 GLU) BLOOD UREA NITROGEN 45 MG/DL 7-17 H (test code = BUN) GLOMERULAR > 60 Reporting units : FILTRATION RATE ml/min/1.73 m2 (test code = GFR) (Modified MDRD Formula)Referen ce Range: > or = 6 0 ml/min/1.73 m2 CREATININE (test 0.70 MG/DL 0.52-1.04 N code = CREAT) TOTAL PROTEIN (test 5.1 G/DL 6.3-8.2 L code = PROT) ALBUMIN (test code = 2.0 G/DL 3.5-5.0 L ALB) CALCIUM (test code = MG/DL 8.7-9.7 CA) BILIRUBIN TOTAL 0.8 MG/DL 0.2-1.3 N Eltrombopag (test code = BILT) Interfere nce for Vitros Product TBil, BuBc: ======= ======= ======A ssay Eltrombop ag Analyte/ Max Observed Avg. Bias Concentratio n Concentration Concentration== ======= ======= ======= =======TBil 7 mg/dl TBil/ 1.2m g/dl +0.23mg.dl +0.20mg/dlBuBc 3.5mg/dl Bu/0.8mg/dl +0.25mg/dl +0.24mg/dlBuBc 7 mg/dl Bu/14.2mg/dl +0.38mg/dl +0.25mg/dlBuBc 5mg/dl Bc/0mg/dl +0.25mg/dl +0.15mg/dlBuBc 3.5mg/dl Bc/2.8mg/dl +0.25mg/dl +0.23mg/dl SGOT/AST (test code 70 UNITS/L 14-36 H = AST) SGPT/ALT (test code UNITS/L <35 = ALT) ALKALINE PHOSPHATASE 116 UNITS/L 38-126 N (test code = ALKP) COMPREHENSIVE METABOLIC [id number] 07:23:00 Test Item Value Reference Range Interpretation Comments SODIUM (test code = NA) 135 MMOL/L 137-145 L POTASSIUM (test code = K) 3.5 MMOL/L 3.5-5.1 N CHLORIDE (test code = CL) 106 MMOL/L 98-107 N CARBON DIOXIDE (test code = CO2) MMOL/L 22-30 GLUCOSE (test code = GLU) MG/DL 74-106 BLOOD UREA NITROGEN (test code = MG/DL 7-17 BUN) GLOMERULAR FILTRATION RATE (test code = GFR) CREATININE (test code = CREAT) MG/DL 0.52-1.04 TOTAL PROTEIN (test code = PROT) G/DL 6.3-8.2 ALBUMIN (test code = ALB) 2.0 G/DL 3.5-5.0 L CALCIUM (test code = CA) MG/DL 8.7-9.7 BILIRUBIN TOTAL (test code = BILT) MG/DL 0.2-1.3 SGOT/AST (test code = AST) UNITS/L 15-37 SGPT/ALT (test code = ALT) UNITS/L <35 ALKALINE PHOSPHATASE (test code = UNITS/L 38-126 ALKP) COMPREHENSIVE METABOLIC [id number] 07:22:00 Test Item Value Reference Range Interpretation Comments SODIUM (test code = NA) MMOL/L 137-145 POTASSIUM (test code = K) MMOL/L 3.5-5.1 CHLORIDE (test code = CL) 106 MMOL/L 98-107 N CARBON DIOXIDE (test code = CO2) MMOL/L 22-30 GLUCOSE (test code = GLU) MG/DL 74-106 BLOOD UREA NITROGEN (test code = MG/DL 7-17 BUN) GLOMERULAR FILTRATION RATE (test code = GFR) CREATININE (test code = CREAT) MG/DL 0.52-1.04 TOTAL PROTEIN (test code = PROT) G/DL 6.3-8.2 ALBUMIN (test code = ALB) 2.0 G/DL 3.5-5.0 L CALCIUM (test code = CA) MG/DL 8.7-9.7 BILIRUBIN TOTAL (test code = BILT) MG/DL 0.2-1.3 SGOT/AST (test code = AST) UNITS/L 15-37 SGPT/ALT (test code = ALT) UNITS/L <35 ALKALINE PHOSPHATASE (test code = UNITS/L 38-126 ALKP) GLUCOSE BEDSIDE [id number] 07:16:00 Test Item Value Reference Range Interpretation Comments GLUCOSE BEDSIDE TESTING (test code = 96 MG/DL 60-99 N GLUBED) PROTHROMBIN [id number] 07:04:00 Test Item Value Reference Range Interpretation Comments PROTHROMBIN TIME 20.2 SECONDS 9.4-12.5 H PATIENT (test code = PTP) INTERNATIONAL NORMAL 1.8 The INR is to be RATIO (test code = used only for INR) monitoring oral anticoagulantth erap y. INDICATION I NR VALUE ---- ---- ---- -------1. Prophylaxis, de ep venous thrombos is, including hig h risk surgery. 2.0 - 3.0 2. Prophylaxis, de ep venous thrombos is, hip surgery, treatment for d eep venous thrombosis or pulmonary prevention of systemic emboli sm in patients wit h valvular heart disease, atrial fibrillation, tissue heart va lve, or acute myocar dial infarction. 2.0 - 3 .0 3. Mechanical prosthesis hear t valves, recurrent syste eric embolism. 3.0 - 4.5 PTT [id number] 07:04:00 Test Item Value Reference Range Interpretation Comments PTT ACTIVATED (test code = APTT) 30.5 SECONDS 25.1-36.5 N CBC W/AUTO [id number] 06:46:00 Test Item Value Reference Range Interpretation Comments WHITE BLOOD CELL (test code = 15.8 K/MM3 3.8-9.8 H WBC) RED BLOOD CELL (test code = 3.36 M/MM3 3.58-4.97 L RBC) HEMOGLOBIN (test code = HGB) 9.6 G/DL 11.2-14.9 L HEMATOCRIT (test code = HCT) 30.3 % 33.2-43.5 L MEAN CELL VOLUME (test code = 90 fL 80.7-99.1 N MCV) MEAN CELL HGB (test code = MCH) 28.6 pg 27.0-34.1 N MEAN CELL HGB CONCETRATION 31.7 % 32.2-35.7 L (test code = MCHC) RED CELL DISTRIBUTION WIDTH 17.2 % 12.1-15.2 H (test code = RDW) PLATELET COUNT (test code = 172 K/MM3 129-368 PLT) MEAN PLATELET VOLUME (test code 10.4 fl 7.4-10.4 N = MPV) NEUTROPHIL % (test code = NT%) 84.0 % 43-75 H IMMATURE GRANULOCYTE % (test 2.8 % 0.0-2.0 H code = IG%) LYMPHOCYTE % (test code = LY%) 3.7 % 14-44 L MONOCYTE % (test code = MO%) 8.5 % 4-13 N EOSINOPHIL % (test code = EO%) 0.3 % 0-6 N BASOPHIL % (test code = BA%) 0.7 % 0-2 N NUCLEATED RBC % (test code = 0.0 % 0-1.0 N NRBC%) NEUTROPHIL # (test code = NT#) 13.27 K/mm3 2.0-7.6 H IMMATURE GRANULOCYTE # (test 0.45 x10 3/uL 0-0.03 H code = IG#) LYMPHOCYTE # (test code = LY#) 0.58 K/mm3 1.0-3.8 L MONOCYTE # (test code = MO#) 1.34 K/mm3 0.1-0.8 H EOSINOPHIL # (test code = EO#) 0.05 K/mm3 0.0-0.2 N BASOPHIL # (test code = BA#) 0.11 K/mm3 0.0-0.2 N NUCLEATED RBC # (test code = 0.00 K/mm3 0.0-0.1 N NRBC#) GLUCOSE BEDSIDE [id number] 00:11:00 Test Item Value Reference Range Interpretation Comments GLUCOSE BEDSIDE TESTING (test code = 98 MG/DL 60-99 N GLUBED) PROTHROMBIN [id number] 23:41:00 Test Item Value Reference Range Interpretation Comments PROTHROMBIN TIME 22.6 SECONDS 9.4-12.5 H PATIENT (test code = PTP) INTERNATIONAL NORMAL 2.0 The INR is to be RATIO (test code = used only for INR) monitoring oral anticoagulantth erap y. INDICATION I NR VALUE ---- ---- ---- -------1. Prophylaxis, de ep venous thrombos is, including hig h risk surgery. 2.0 - 3.0 2. Prophylaxis, de ep venous thrombos is, hip surgery, treatment for d eep venous thrombosis or pulmonary prevention of systemic emboli sm in patients wit h valvular heart disease, atrial fibrillation, tissue heart va lve, or acute myocar dial infarction. 2.0 - 3 .0 3. Mechanical prosthesis hear t valves, recurrent syste eric embolism. 3.0 - 4.5 PTT [id number] 23:41:00 Test Item Value Reference Range Interpretation Comments PTT ACTIVATED (test code = APTT) 25.2 SECONDS 25.1-36.5 N BASIC METABOLIC [id number] 23:39:00 Test Item Value Reference Range Interpretation Comments SODIUM (test code = 135 MMOL/L 137-145 L NA) POTASSIUM (test code = 3.5 MMOL/L 3.5-5.1 N K) CHLORIDE (test code = 105 MMOL/L 98-107 N CL) CARBON DIOXIDE (test 22 MMOL/L 22-30 N code = CO2) ANION GAP (test code = 12 MMOL/L 14-24 L GAP) GLUCOSE (test code = 116 MG/DL 74-106 H GLU) BLOOD UREA NITROGEN 46 MG/DL 7-17 H (test code = BUN) GLOMERULAR FILTRATION > 60 Report ing units: RATE (test code = GFR) ml/mi n/1.73 m2 (Modified MDRD Formula)Referen ce Range: > or = 6 0 ml/min/1.73 m2 CREATININE (test code 0.70 MG/DL 0.52-1.04 N = CREAT) CALCIUM (test code = 7.4 MG/DL 8.4-10.2 L CA) BASIC METABOLIC [id number] 23:36:00 Test Item Value Reference Range Interpretation Comments SODIUM (test code = NA) 135 MMOL/L 137-145 L POTASSIUM (test code = K) 3.5 MMOL/L 3.5-5.1 N CHLORIDE (test code = CL) 105 MMOL/L 98-107 N CARBON DIOXIDE (test code = CO2) MMOL/L 22-30 GLUCOSE (test code = GLU) MG/DL 74-106 BLOOD UREA NITROGEN (test code = MG/DL 7-17 BUN) GLOMERULAR FILTRATION RATE (test code = GFR) CREATININE (test code = CREAT) MG/DL 0.52-1.04 CALCIUM (test code = CA) MG/DL 8.7-9.7 CBC W/AUTO [id number] 23:29:00 Test Item Value Reference Range Interpretation Comments WHITE BLOOD CELL (test code = 18.8 K/MM3 3.8-9.8 H WBC) RED BLOOD CELL (test code = 2.43 M/MM3 3.58-4.97 L RBC) HEMOGLOBIN (test code = HGB) 7.0 G/DL 11.2-14.9 L HEMATOCRIT (test code = HCT) 22.6 % 33.2-43.5 L MEAN CELL VOLUME (test code = 93 fL 80.7-99.1 N MCV) MEAN CELL HGB (test code = MCH) 28.8 pg 27.0-34.1 N MEAN CELL HGB CONCETRATION 31.0 % 32.2-35.7 L (test code = MCHC) RED CELL DISTRIBUTION WIDTH 16.3 % 12.1-15.2 H (test code = RDW) PLATELET COUNT (test code = 216 K/MM3 129-368 PLT) MEAN PLATELET VOLUME (test code 10.6 fl 7.4-10.4 H = MPV) NEUTROPHIL % (test code = NT%) 85.4 % 43-75 H IMMATURE GRANULOCYTE % (test 3.3 % 0.0-2.0 H code = IG%) LYMPHOCYTE % (test code = LY%) 3.5 % 14-44 L MONOCYTE % (test code = MO%) 7.1 % 4-13 N EOSINOPHIL % (test code = EO%) 0.4 % 0-6 N BASOPHIL % (test code = BA%) 0.3 % 0-2 N NUCLEATED RBC % (test code = 0.0 % 0-1.0 N NRBC%) NEUTROPHIL # (test code = NT#) 16.09 K/mm3 2.0-7.6 H IMMATURE GRANULOCYTE # (test 0.63 x10 3/uL 0-0.03 H code = IG#) LYMPHOCYTE # (test code = LY#) 0.66 K/mm3 1.0-3.8 L MONOCYTE # (test code = MO#) 1.33 K/mm3 0.1-0.8 H EOSINOPHIL # (test code = EO#) 0.08 K/mm3 0.0-0.2 N BASOPHIL # (test code = BA#) 0.05 K/mm3 0.0-0.2 N NUCLEATED RBC # (test code = 0.00 K/mm3 0.0-0.1 N NRBC#) GLUCOSE BEDSIDE [id number] 20:24:00 Test Item Value Reference Range Interpretation Comments GLUCOSE BEDSIDE TESTING (test code 106 MG/DL 60-99 H = GLUBED) - XR CHEST [id number] 19:08:00 [facility] 1940 Sex: F Patient Name: JORGE A HORTA Unit No: [id number] EXAMS: CPT CODE: [id number] XR CHEST 1V 11595 REASON FOR EXAM: Coronary artery disease. COMPARISON: December 08, 2019. Chest, portable single frontal view. The upper lungs are fairly well-inflated and clear. Lung bases with some haziness present that could indicate atelectasis or developing infiltrates. Most pronounced behind the left heart. An effusion comp onent could be present. Heart size is upper normal with heart valve replacement changes and or CABG. Pulmonary vessels appear to be intact. No right effusion or pneumothoraxcan be seen. Osseous structures appear to be intact. Bilateral rotator cuff dege nerative changes. IMPRESSION: Basilar densities, mostly on the left, possibly early pneumonia/atelectasis with effusion component. Location: 9 at 1908 Reported and signed by: DONNA AMIN M.D. CC: Ramu Sutherland MD; Rashid Son MD; Reuben Conner Technologist: Diana Quintana (RT) Transcrpt Date/Tm/Trnsp: 12/21/2019 (1907) [email or web address] Orig Print D/T: S: 12/21/2019 (1911) [facility] NAME: JORGE A HORTA [id number] PHYS: Re[place] [address] : 1940 AGE: 79 SEX: F LOC: [id number] PHONE #: [phone] EXAM DATE: 12/21/2019 STATUS: ADM IN FAX #: [phone] RADIOLOGY NO: PAGE 1 Signed ReportGLUCOSE BEDSIDE [id number] 12:32:00 Test Item Value Reference Range Interpretation Comments GLUCOSE BEDSIDE TESTING (test code 130 MG/DL 60-99 H = GLUBED) GLUCOSE BEDSIDE [id number] 09:19:00 Test Item Value Reference Range Interpretation Comments GLUCOSE BEDSIDE TESTING (test code 143 MG/DL 60-99 H = GLUBED) COMPREHENSIVE METABOLIC [id number] 07:06:00 Test Item Value Reference Range Interpretation Comments SODIUM (test code = 135 MMOL/L 137-145 L NA) POTASSIUM (test code 3.7 MMOL/L 3.5-5.1 N = K) CHLORIDE (test code 107 MMOL/L 98-107 N = CL) CARBON DIOXIDE (test 23 MMOL/L 22-30 N code = CO2) ANION GAP (test code 9 MMOL/L 14-24 L = GAP) GLUCOSE (test code = 149 MG/DL 74-106 H GLU) BLOOD UREA NITROGEN 45 MG/DL 7-17 H (test code = BUN) GLOMERULAR > 60 Reporting units : FILTRATION RATE ml/min/1.73 m2 (test code = GFR) (Modified MDRD Formula)Referen ce Range: > or = 6 0 ml/min/1.73 m2 CREATININE (test 0.70 MG/DL 0.52-1.04 N code = CREAT) TOTAL PROTEIN (test 5.4 G/DL 6.3-8.2 L code = PROT) ALBUMIN (test code = 2.1 G/DL 3.5-5.0 L ALB) CALCIUM (test code = 7.4 MG/DL 8.4-10.2 L CA) BILIRUBIN TOTAL 1.1 MG/DL 0.2-1.3 N Eltrombopag (test code = BILT) Interfere nce for Vitros Product TBil, BuBc: ======= ======= ======A ssay Eltrombop ag Analyte/ Max Observed Avg. Bias Concentratio n Concentration Concentration== ======= ======= ======= =======TBil 7 mg/dl TBil/ 1.2m g/dl +0.23mg.dl +0.20mg/dlBuBc 3.5mg/dl Bu/0.8mg/dl +0.25mg/dl +0.24mg/dlBuBc 7 mg/dl Bu/14.2mg/dl +0.38mg/dl +0.25mg/dlBuBc 5mg/dl Bc/0mg/dl +0.25mg/dl +0.15mg/dlBuBc 3.5mg/dl Bc/2.8mg/dl +0.25mg/dl +0.23mg/dl SGOT/AST (test code 78 UNITS/L 14-36 H = AST) SGPT/ALT (test code 34 UNITS/L <35 = ALT) ALKALINE PHOSPHATASE 137 UNITS/L 38-126 H (test code = ALKP) COMPREHENSIVE METABOLIC [id number] 06:24:00 Test Item Value Reference Range Interpretation Comments SODIUM (test code = 135 MMOL/L 137-145 L NA) POTASSIUM (test code 3.7 MMOL/L 3.5-5.1 N = K) CHLORIDE (test code = 107 MMOL/L 98-107 N CL) CARBON DIOXIDE (test MMOL/L 22-30 code = CO2) GLUCOSE (test code = MG/DL 74-106 GLU) BLOOD UREA NITROGEN MG/DL 7-17 (test code = BUN) GLOMERULAR FILTRATION > 60 Report ing units: RATE (test code = ml/min/1.7 3 m2 GFR) (Modified MDRD Formula)Referen ce Range: > or = 6 0 ml/min/1.73 m2 CREATININE (test code 0.70 MG/DL 0.52-1.04 N = CREAT) TOTAL PROTEIN (test G/DL 6.3-8.2 code = PROT) ALBUMIN (test code = 2.1 G/DL 3.5-5.0 L ALB) CALCIUM (test code = MG/DL 8.7-9.7 CA) BILIRUBIN TOTAL (test 1.1 MG/DL 0.2-1.3 N Eltrom bopag code = BILT) Interference fo r Vitros Product TBil, BuBc: ======= ======= ======A ssay Eltrombop ag Analyte/ Max Observed Avg. Bias Concentratio n Concentration Concentration== ======= ======= ======= =======TBil 7 mg/dl TBil/ 1.2m g/dl +0.23mg.dl +0.20mg/dlBuBc 3.5mg/dl Bu/0.8mg/dl +0.25mg/dl +0.24mg/dlBuBc 7 mg/dl Bu/14.2mg/dl +0.38mg/dl +0.25mg/dlBuBc 5mg/dl Bc/0mg/dl +0.25mg/dl +0.15mg/dlBuBc 3.5mg/dl Bc/2.8mg/dl +0.25mg/dl +0.23mg/dl SGOT/AST (test code = UNITS/L 15-37 AST) SGPT/ALT (test code = UNITS/L <35 ALT) ALKALINE PHOSPHATASE UNITS/L 38-126 (test code = ALKP) COMPREHENSIVE METABOLIC [id number] 06:22:00 Test Item Value Reference Range Interpretation Comments SODIUM (test code = NA) 135 MMOL/L 137-145 L POTASSIUM (test code = K) 3.7 MMOL/L 3.5-5.1 N CHLORIDE (test code = CL) 107 MMOL/L 98-107 N CARBON DIOXIDE (test code = CO2) MMOL/L 22-30 GLUCOSE (test code = GLU) MG/DL 74-106 BLOOD UREA NITROGEN (test code = MG/DL 7-17 BUN) GLOMERULAR FILTRATION RATE (test code = GFR) CREATININE (test code = CREAT) MG/DL 0.52-1.04 TOTAL PROTEIN (test code = PROT) G/DL 6.3-8.2 ALBUMIN (test code = ALB) 2.1 G/DL 3.5-5.0 L CALCIUM (test code = CA) MG/DL 8.7-9.7 BILIRUBIN TOTAL (test code = BILT) MG/DL 0.2-1.3 SGOT/AST (test code = AST) UNITS/L 15-37 SGPT/ALT (test code = ALT) UNITS/L <35 ALKALINE PHOSPHATASE (test code = UNITS/L 38-126 ALKP) PROTHROMBIN [id number] 06:21:00 Test Item Value Reference Range Interpretation Comments PROTHROMBIN TIME 18.4 SECONDS 9.4-12.5 H PATIENT (test code = PTP) INTERNATIONAL NORMAL 1.7 The INR is to be RATIO (test code = used only for INR) monitoring oral anticoagulantth erap y. INDICATION I NR VALUE ---- ---- ---- -------1. Prophylaxis, de ep venous thrombos is, including hig h risk surgery. 2.0 - 3.0 2. Prophylaxis, de ep venous thrombos is, hip surgery, treatment for d eep venous thrombosis or pulmonary prevention of systemic emboli sm in patients wit h valvular heart disease, atrial fibrillation, tissue heart va lve, or acute myocar dial infarction. 2.0 - 3 .0 3. Mechanical prosthesis hear t valves, recurrent syste eric embolism. 3.0 - 4.5 COMPREHENSIVE METABOLIC [id number] 06:21:00 Test Item Value Reference Range Interpretation Comments SODIUM (test code = NA) MMOL/L 137-145 POTASSIUM (test code = K) MMOL/L 3.5-5.1 CHLORIDE (test code = CL) 107 MMOL/L 98-107 N CARBON DIOXIDE (test code = CO2) MMOL/L 22-30 GLUCOSE (test code = GLU) MG/DL 74-106 BLOOD UREA NITROGEN (test code = MG/DL 7-17 BUN) GLOMERULAR FILTRATION RATE (test code = GFR) CREATININE (test code = CREAT) MG/DL 0.52-1.04 TOTAL PROTEIN (test code = PROT) G/DL 6.3-8.2 ALBUMIN (test code = ALB) G/DL 3.5-5.0 CALCIUM (test code = CA) MG/DL 8.7-9.7 BILIRUBIN TOTAL (test code = BILT) MG/DL 0.2-1.3 SGOT/AST (test code = AST) UNITS/L 15-37 SGPT/ALT (test code = ALT) UNITS/L <35 ALKALINE PHOSPHATASE (test code = UNITS/L 38-126 ALKP) CBC W/AUTO [id number] 06:11:00 Test Item Value Reference Range Interpretation Comments WHITE BLOOD CELL (test code = 19.4 K/MM3 3.8-9.8 H WBC) RED BLOOD CELL (test code = 2.92 M/MM3 3.58-4.97 L RBC) HEMOGLOBIN (test code = HGB) 8.6 G/DL 11.2-14.9 L HEMATOCRIT (test code = HCT) 26.6 % 33.2-43.5 L MEAN CELL VOLUME (test code = 91 fL 80.7-99.1 N MCV) MEAN CELL HGB (test code = MCH) 29.5 pg 27.0-34.1 N MEAN CELL HGB CONCETRATION 32.3 % 32.2-35.7 N (test code = MCHC) RED CELL DISTRIBUTION WIDTH 16.4 % 12.1-15.2 H (test code = RDW) PLATELET COUNT (test code = 278 K/MM3 129-368 N PLT) MEAN PLATELET VOLUME (test code 10.6 fl 7.4-10.4 H = MPV) NEUTROPHIL % (test code = NT%) 82.9 % 43-75 H IMMATURE GRANULOCYTE % (test 2.2 % 0.0-2.0 H code = IG%) LYMPHOCYTE % (test code = LY%) 4.2 % 14-44 L MONOCYTE % (test code = MO%) 9.3 % 4-13 N EOSINOPHIL % (test code = EO%) 0.8 % 0-6 N BASOPHIL % (test code = BA%) 0.6 % 0-2 N NUCLEATED RBC % (test code = 0.0 % 0-1.0 N NRBC%) NEUTROPHIL # (test code = NT#) 16.08 K/mm3 2.0-7.6 H IMMATURE GRANULOCYTE # (test 0.42 x10 3/uL 0-0.03 H code = IG#) LYMPHOCYTE # (test code = LY#) 0.81 K/mm3 1.0-3.8 L MONOCYTE # (test code = MO#) 1.80 K/mm3 0.1-0.8 H EOSINOPHIL # (test code = EO#) 0.15 K/mm3 0.0-0.2 N BASOPHIL # (test code = BA#) 0.11 K/mm3 0.0-0.2 N NUCLEATED RBC # (test code = 0.00 K/mm3 0.0-0.1 N NRBC#) GLUCOSE BEDSIDE [id number] 21:01:00 Test Item Value Reference Range Interpretation Comments GLUCOSE BEDSIDE TESTING (test code 127 MG/DL 60-99 H = GLUBED) GLUCOSE BEDSIDE [id number] 16:02:00 Test Item Value Reference Range Interpretation Comments GLUCOSE BEDSIDE TESTING (test code 118 MG/DL 60-99 H = GLUBED) - NM ACUTE GI BLOOD [id number] 15:54:00 [facility] 1940 Sex: F Patient Name: JORGE A HORTA Unit No: [id number] EXAMS: CPT CODE: [id number] NM ACUTE GI BLOOD LOSS 99111 B2 EXAM: - NM ACUTE GI BLOOD LOSS HISTORY: GI bleeding TECHNIQUE: Patient's RBCs were labeled using 27.4 mCi of Tc 99m pertechnetate. Subsequent immediate flow images followed by serial static images of the abdomen and pelvis were obtained for record 20 minutes. COMPARISON: None FINDINGS: There is normal localization of the tracer in the vascular tree and visualization ofthe bladder. During the entire study, no abnormal tracer activity is seen in the abdomen or pelvis to suggest active GI bleeding. IMPRESSION: No scintigr aphic evidence of gastrointestinal bleeding over the 2 hour imaging interval. at 1554 Reported and signed by: Haresh Gross MD CC: Ramu Sutherland MD; Rashid Son MD; Dr. Jason Wilder Technologist:José Miguel Lovell, RT(N) Transcrpt Date/Tm/Trnsp: 12/20/2019 (3154) [id number] Orig Print D/T: S: 12/20/2019 (4744) [facility] NAME: JORGE A HORTA [id number] PHYS: [place] [address] : 1940 AGE: 79 SEX: F LOC: [id number] PHONE #: [phone] EXAM DATE: 12/20/2019 STATUS: ADM IN FAX #: [phone] RADIOLOGY NO: PAGE 1 Signed ReportGLUCOSE BEDSIDE TESTING 2019-12-20 11:29:00 Test Item Value Reference Range Interpretation Comments GLUCOSE BEDSIDE TESTING (test code 148 MG/DL 60-99 H = GLUBED) GLUCOSE BEDSIDE [id number] 09:20:00 Test Item Value Reference Range Interpretation Comments GLUCOSE BEDSIDE TESTING (test code 152 MG/DL 60-99 H = GLUBED) BASIC METABOLIC [id number] 06:04:00 Test Item Value Reference Range Interpretation Comments SODIUM (test code = 136 MMOL/L 137-145 L NA) POTASSIUM (test code = 3.4 MMOL/L 3.5-5.1 L K) CHLORIDE (test code = 107 MMOL/L 98-107 N CL) CARBON DIOXIDE (test 23 MMOL/L 22-30 N code = CO2) ANION GAP (test code = 9 MMOL/L 14-24 L GAP) GLUCOSE (test code = 137 MG/DL 74-106 H GLU) BLOOD UREA NITROGEN 45 MG/DL 7-17 H (test code = BUN) GLOMERULAR FILTRATION > 60 Report ing units: RATE (test code = GFR) ml/mi n/1.73 m2 (Modified MDRD Formula)Referen ce Range: > or = 6 0 ml/min/1.73 m2 CREATININE (test code 0.80 MG/DL 0.52-1.04 N = CREAT) CALCIUM (test code = 7.2 MG/DL 8.4-10.2 L CA) BASIC METABOLIC [id number] 06:03:00 Test Item Value Reference Range Interpretation Comments SODIUM (test code = 136 MMOL/L 137-145 L NA) POTASSIUM (test code = 3.4 MMOL/L 3.5-5.1 L K) CHLORIDE (test code = 107 MMOL/L 98-107 N CL) CARBON DIOXIDE (test MMOL/L 22-30 code = CO2) GLUCOSE (test code = MG/DL 74-106 GLU) BLOOD UREA NITROGEN MG/DL 7-17 (test code = BUN) GLOMERULAR FILTRATION > 60 Report ing units: RATE (test code = GFR) ml/mi n/1.73 m2 (Modified MDRD Formula)Referen ce Range: > or = 6 0 ml/min/1.73 m2 CREATININE (test code 0.80 MG/DL 0.52-1.04 N = CREAT) CALCIUM (test code = MG/DL 8.7-9.7 CA) BASIC METABOLIC [id number] 06:01:00 Test Item Value Reference Range Interpretation Comments SODIUM (test code = NA) 136 MMOL/L 137-145 L POTASSIUM (test code = K) 3.4 MMOL/L 3.5-5.1 L CHLORIDE (test code = CL) 107 MMOL/L 98-107 N CARBON DIOXIDE (test code = CO2) MMOL/L 22-30 GLUCOSE (test code = GLU) MG/DL 74-106 BLOOD UREA NITROGEN (test code = MG/DL 7-17 BUN) GLOMERULAR FILTRATION RATE (test code = GFR) CREATININE (test code = CREAT) MG/DL 0.52-1.04 CALCIUM (test code = CA) MG/DL 8.7-9.7 BASIC METABOLIC [id number] 06:00:00 Test Item Value Reference Range Interpretation Comments SODIUM (test code = NA) 136 MMOL/L 137-145 L POTASSIUM (test code = K) MMOL/L 3.5-5.1 CHLORIDE (test code = CL) 107 MMOL/L 98-107 N CARBON DIOXIDE (test code = CO2) MMOL/L 22-30 GLUCOSE (test code = GLU) MG/DL 74-106 BLOOD UREA NITROGEN (test code = MG/DL 7-17 BUN) GLOMERULAR FILTRATION RATE (test code = GFR) CREATININE (test code = CREAT) MG/DL 0.52-1.04 CALCIUM (test code = CA) MG/DL 8.7-9.7 PROTHROMBIN [id number] 06:00:00 Test Item Value Reference Range Interpretation Comments PROTHROMBIN TIME 22.3 SECONDS 9.4-12.5 H PATIENT (test code = PTP) INTERNATIONAL NORMAL 2.0 The INR is to be RATIO (test code = used only for INR) monitoring oral anticoagulantth erap y. INDICATION I NR VALUE ---- ---- ---- -------1. Prophylaxis, de ep venous thrombos is, including hig h risk surgery. 2.0 - 3.0 2. Prophylaxis, de ep venous thrombos is, hip surgery, treatment for d eep venous thrombosis or pulmonary prevention of systemic emboli sm in patients wit h valvular heart disease, atrial fibrillation, tissue heart va lve, or acute myocar dial infarction. 2.0 - 3 .0 3. Mechanical prosthesis hear t valves, recurrent syste eric embolism. 3.0 - 4.5 CBC W/AUTO [id number] 05:53:00 Test Item Value Reference Range Interpretation Comments WHITE BLOOD CELL (test code = 20.1 K/MM3 3.8-9.8 H WBC) RED BLOOD CELL (test code = 2.36 M/MM3 3.58-4.97 L RBC) HEMOGLOBIN (test code = HGB) 7.0 G/DL 11.2-14.9 L HEMATOCRIT (test code = HCT) 22.1 % 33.2-43.5 L MEAN CELL VOLUME (test code = 94 fL 80.7-99.1 N MCV) MEAN CELL HGB (test code = MCH) 29.7 pg 27.0-34.1 N MEAN CELL HGB CONCETRATION 31.7 % 32.2-35.7 L (test code = MCHC) RED CELL DISTRIBUTION WIDTH 16.3 % 12.1-15.2 H (test code = RDW) PLATELET COUNT (test code = 317 K/MM3 129-368 N PLT) MEAN PLATELET VOLUME (test code 10.2 fl 7.4-10.4 N = MPV) NEUTROPHIL % (test code = NT%) 81.4 % 43-75 H IMMATURE GRANULOCYTE % (test 1.7 % 0.0-2.0 N code = IG%) LYMPHOCYTE % (test code = LY%) 5.7 % 14-44 L MONOCYTE % (test code = MO%) 10.0 % 4-13 N EOSINOPHIL % (test code = EO%) 0.8 % 0-6 N BASOPHIL % (test code = BA%) 0.4 % 0-2 N NUCLEATED RBC % (test code = 0.0 % 0-1.0 N NRBC%) NEUTROPHIL # (test code = NT#) 16.36 K/mm3 2.0-7.6 H IMMATURE GRANULOCYTE # (test 0.34 x10 3/uL 0-0.03 H code = IG#) LYMPHOCYTE # (test code = LY#) 1.14 K/mm3 1.0-3.8 N MONOCYTE # (test code = MO#) 2.01 K/mm3 0.1-0.8 H EOSINOPHIL # (test code = EO#) 0.16 K/mm3 0.0-0.2 N BASOPHIL # (test code = BA#) 0.09 K/mm3 0.0-0.2 N NUCLEATED RBC # (test code = 0.00 K/mm3 0.0-0.1 N NRBC#) GLUCOSE BEDSIDE [id number] 20:57:00 Test Item Value Reference Range Interpretation Comments GLUCOSE BEDSIDE TESTING (test code 138 MG/DL 60-99 H = GLUBED) PROTHROMBIN [id number] 19:46:00 Test Item Value Reference Range Interpretation Comments PROTHROMBIN TIME 23.7 SECONDS 9.4-12.5 H PATIENT (test code = PTP) INTERNATIONAL NORMAL 2.1 The INR is to be RATIO (test code = used only for INR) monitoring oral anticoagulantth erap y. INDICATION I NR VALUE ---- ---- ---- -------1. Prophylaxis, de ep venous thrombos is, including hig h risk surgery. 2.0 - 3.0 2. Prophylaxis, de ep venous thrombos is, hip surgery, treatment for d eep venous thrombosis or pulmonary prevention of systemic emboli sm in patients wit h valvular heart disease, atrial fibrillation, tissue heart va lve, or acute myocar dial infarction. 2.0 - 3 .0 3. Mechanical prosthesis hear t valves, recurrent syste eric embolism. 3.0 - 4.5 UNABLE TO DRAW BLOOD, REASON: HARDSTICK NOTIFIED PATIENT CARE STAFF: MACK 12/19/19 AT 1838 BY Kristen Henry AnPTT [id number] 19:46:00 Test Item Value Reference Range Interpretation Comments PTT ACTIVATED (test code = APTT) 31.3 SECONDS 25.1-36.5 N UNABLE TO DRAW BLOOD, REASON: HARDSTICK NOTIFIED PATIENT CARE STAFF: MACK 12/19/19 AT 1838 BY Kristen Henry AnHGB [id number] 19:36:00 Test Item Value Reference Range Interpretation Comments HEMOGLOBIN (test code = HGB) 7.4 G/DL 11.2-14.9 L HEMATOCRIT (test code = HCT) 23.6 % 33.2-43.5 L Is this a LINE draw? NUNABLE TO DRAW BLOOD, REASON: HARDSTICKNOTIFIED PATIENT CARE STAFF: MACK 12/19/19 AT 1838 BY Kristen Henry AnGLUCOSE BEDSIDE [id number] 17:14:00 Test Item Value Reference Range Interpretation Comments GLUCOSE BEDSIDE TESTING (test code 127 MG/DL 60-99 H = GLUBED) GLUCOSE BEDSIDE [id number] 11:41:00 Test Item Value Reference Range Interpretation Comments GLUCOSE BEDSIDE TESTING (test code 125 MG/DL 60-99 H = GLUBED) BASIC METABOLIC [id number] 09:20:00 Test Item Value Reference Range Interpretation Comments SODIUM (test code = 139 MMOL/L 137-145 N NA) POTASSIUM (test code = 3.7 MMOL/L 3.5-5.1 N K) CHLORIDE (test code = 110 MMOL/L 98-107 H CL) CARBON DIOXIDE (test 24 MMOL/L 22-30 N code = CO2) ANION GAP (test code = 9 MMOL/L 14-24 L GAP) GLUCOSE (test code = 123 MG/DL 74-106 H GLU) BLOOD UREA NITROGEN 45 MG/DL 7-17 H (test code = BUN) GLOMERULAR FILTRATION 53 Report ing units: RATE (test code = GFR) ml/mi n/1.73 m2 (Modified MDRD Formula)Referen ce Range: > or = 6 0 ml/min/1.73 m2 CREATININE (test code 1.00 MG/DL 0.52-1.04 N = CREAT) CALCIUM (test code = 7.5 MG/DL 8.4-10.2 L CA) [facility] METABOLIC [id number] 09:15:00 Test Item Value Reference Range Interpretation Comments SODIUM (test code = 139 MMOL/L 137-145 N NA) POTASSIUM (test code = 3.7 MMOL/L 3.5-5.1 N K) CHLORIDE (test code = 110 MMOL/L 98-107 H CL) CARBON DIOXIDE (test MMOL/L 22-30 code = CO2) GLUCOSE (test code = MG/DL 74-106 GLU) BLOOD UREA NITROGEN MG/DL 7-17 (test code = BUN) GLOMERULAR FILTRATION 53 Report ing units: RATE (test code = GFR) ml/mi n/1.73 m2 (Modified MDRD Formula)Referen ce Range: > or = 6 0 ml/min/1.73 m2 CREATININE (test code 1.00 MG/DL 0.52-1.04 N = CREAT) CALCIUM (test code = MG/DL 8.7-9.7 CA) [facility] METABOLIC [id number] 09:13:00 Test Item Value Reference Range Interpretation Comments SODIUM (test code = NA) 139 MMOL/L 137-145 N POTASSIUM (test code = K) 3.7 MMOL/L 3.5-5.1 N CHLORIDE (test code = CL) 110 MMOL/L 98-107 H CARBON DIOXIDE (test code = CO2) MMOL/L 22-30 GLUCOSE (test code = GLU) MG/DL 74-106 BLOOD UREA NITROGEN (test code = MG/DL 7-17 BUN) GLOMERULAR FILTRATION RATE (test code = GFR) CREATININE (test code = CREAT) MG/DL 0.52-1.04 CALCIUM (test code = CA) MG/DL 8.7-9.7 [facility] MET[facility] [id number] 09:12:00 Test Item Value Reference Range Interpretation Comments SODIUM (test code = NA) MMOL/L 137-145 POTASSIUM (test code = K) MMOL/L 3.5-5.1 CHLORIDE (test code = CL) 110 MMOL/L 98-107 H CARBON DIOXIDE (test code = CO2) MMOL/L 22-30 GLUCOSE (test code = GLU) MG/DL 74-106 BLOOD UREA NITROGEN (test code = MG/DL 7-17 BUN) GLOMERULAR FILTRATION RATE (test code = GFR) CREATININE (test code = CREAT) MG/DL 0.52-1.04 CALCIUM (test code = CA) MG/DL 8.7-9.7 CBNPROTHROMBIN [id number] 09:09:00 Test Item Value Reference Range Interpretation Comments PROTHROMBIN TIME 25.1 SECONDS 9.4-12.5 H PATIENT (test code = PTP) INTERNATIONAL NORMAL 2.3 The INR is to be RATIO (test code = used only for INR) monitoring oral anticoagulantth erap y. INDICATION I NR VALUE ---- ---- ---- -------1. Prophylaxis, de ep venous thrombos is, including hig h risk surgery. 2.0 - 3.0 2. Prophylaxis, de ep venous thrombos is, hip surgery, treatment for d eep venous thrombosis or pulmonary prevention of systemic emboli sm in patients wit h valvular heart disease, atrial fibrillation, tissue heart va lve, or acute myocar dial infarction. 2.0 - 3 .0 3. Mechanical prosthesis hear t valves, recurrent syste eric embolism. 3.0 - 4.5 CBNComments to Medical Biller: WITH AM LABSCBC W/AUTO [id number] 08:57:00 Test Item Value Reference Range Interpretation Comments WHITE BLOOD CELL (test code = 13.2 K/MM3 3.8-9.8 H WBC) RED BLOOD CELL (test code = 2.77 M/MM3 3.58-4.97 L RBC) HEMOGLOBIN (test code = HGB) 8.1 G/DL 11.2-14.9 L HEMATOCRIT (test code = HCT) 26.2 % 33.2-43.5 L MEAN CELL VOLUME (test code = 95 fL 80.7-99.1 N MCV) MEAN CELL HGB (test code = MCH) 29.2 pg 27.0-34.1 N MEAN CELL HGB CONCETRATION 30.9 % 32.2-35.7 L (test code = MCHC) RED CELL DISTRIBUTION WIDTH 16.2 % 12.1-15.2 H (test code = RDW) PLATELET COUNT (test code = 347 K/MM3 129-368 N PLT) MEAN PLATELET VOLUME (test code 10.2 fl 7.4-10.4 N = MPV) NEUTROPHIL % (test code = NT%) 79.4 % 43-75 H IMMATURE GRANULOCYTE % (test 1.7 % 0.0-2.0 N code = IG%) LYMPHOCYTE % (test code = LY%) 7.0 % 14-44 L MONOCYTE % (test code = MO%) 10.9 % 4-13 N EOSINOPHIL % (test code = EO%) 0.5 % 0-6 N BASOPHIL % (test code = BA%) 0.5 % 0-2 N NUCLEATED RBC % (test code = 0.0 % 0-1.0 N NRBC%) NEUTROPHIL # (test code = NT#) 10.48 K/mm3 2.0-7.6 H IMMATURE GRANULOCYTE # (test 0.23 x10 3/uL 0-0.03 H code = IG#) LYMPHOCYTE # (test code = LY#) 0.93 K/mm3 1.0-3.8 L MONOCYTE # (test code = MO#) 1.44 K/mm3 0.1-0.8 H EOSINOPHIL # (test code = EO#) 0.07 K/mm3 0.0-0.2 N BASOPHIL # (test code = BA#) 0.06 K/mm3 0.0-0.2 N NUCLEATED RBC # (test code = 0.00 K/mm3 0.0-0.1 N NRBC#) CBNGLUCOSE BEDSIDE [id number] 07:42:00 Test Item Value Reference Range Interpretation Comments GLUCOSE BEDSIDE TESTING (test code 122 MG/DL 60-99 H = GLUBED) GLUCOSE BEDSIDE [id number] 21:25:00 Test Item Value Reference Range Interpretation Comments GLUCOSE BEDSIDE TESTING (test code 115 MG/DL 60-99 H = GLUBED) GLUCOSE BEDSIDE [id number] 17:33:00 Test Item Value Reference Range Interpretation Comments GLUCOSE BEDSIDE TESTING (test code 104 MG/DL 60-99 H = GLUBED) C REACTIVE [id number] 15:42:00 Test Item Value Reference Range Interpretation Comments C REACTIVE PROTEIN (test code = 25.20 MG/DL 0.00-9.99 H CRP) - XR SMALL BOWEL/[id number] 12:46:00 [facility] : 1940 Sex: F Patient Name: JORGE A HORTA Unit No: [id number] EXAMS: CPT CODE: [id number] XR SMALL BOWEL/ENTERO 62695 B2 EXAM: Small bowel series INDICATION: Prolonged Ileus s/p CV surgery COMPARISON: Abdomen/pelvis CT 12/04/2019 FINDINGS: Small bowel transit time is 2 hours which is within normal limits. No focal mass lesion is identified. The folds of the ileum and jejunum are within normal limits. No evidence of small bowel distention. IMPRESSION: Unremarkable small bowel series. at 1246 Reported and signed by: Haresh Gross MD CC: Tevin Samuels; Rmau Sutherland MD; Georgina Smith MD Technologist: ANKUR Jalloh, RT(R) Transcrpt Date/Tm/Trnsp: 12/18/2019 (1246) Dorys.[email or web address] Orig Print D/T: S: 12/18/2019 (7624) [facility] NAME: JORGE A HORTA [id number] [address] PHYS: STENI[place] [address] : 1940 AGE: 79 SEX: F : Z.SI06 A PHONE #: [phone] EXAM DATE: 12/18/2019 STATUS: ADM IN FAX #: [phone] RADIOLOGY NO: PAGE 1 Signed ReportGLUCOSE BEDSIDE [id number] 12:07:00 Test Item Value Reference Range Interpretation Comments GLUCOSE BEDSIDE TESTING (test code 101 MG/DL 60-99 H = GLUBED) SED [id number] 09:36:00 Test Item Value Reference Range Interpretation Comments SED RATE (test code = SEDW) 53 MM/HR 0-20 H GLUCOSE BEDSIDE [id number] 09:03:00 Test Item Value Reference Range Interpretation Comments GLUCOSE BEDSIDE TESTING (test code 113 MG/DL 60-99 H = GLUBED) BASIC METABOLIC [id number] 06:06:00 Test Item Value Reference Range Interpretation Comments SODIUM (test code = 133 MMOL/L 137-145 L NA) POTASSIUM (test code = 3.7 MMOL/L 3.5-5.1 N K) CHLORIDE (test code = 105 MMOL/L 98-107 N CL) CARBON DIOXIDE (test 23 MMOL/L 22-30 N code = CO2) GLUCOSE (test code = 109 MG/DL 74-106 H GLU) BLOOD UREA NITROGEN 38 MG/DL 7-17 H (test code = BUN) GLOMERULAR FILTRATION > 60 Report ing units: RATE (test code = GFR) ml/mi n/1.73 m2 (Modified MDRD Formula)Referen ce Range: > or = 6 0 ml/min/1.73 m2 CREATININE (test code 0.80 MG/DL 0.52-1.04 N = CREAT) CALCIUM (test code = 7.3 MG/DL 8.4-10.2 L CA) BASIC METABOLIC [id number] 06:00:00 Test Item Value Reference Range Interpretation Comments SODIUM (test code = 133 MMOL/L 137-145 L NA) POTASSIUM (test code = 3.7 MMOL/L 3.5-5.1 N K) CHLORIDE (test code = 105 MMOL/L 98-107 N CL) CARBON DIOXIDE (test 23 MMOL/L 22-30 N code = CO2) GLUCOSE (test code = MG/DL 74-106 GLU) BLOOD UREA NITROGEN 38 MG/DL 7-17 H (test code = BUN) GLOMERULAR FILTRATION > 60 Report ing units: RATE (test code = GFR) ml/mi n/1.73 m2 (Modified MDRD Formula)Referen ce Range: > or = 6 0 ml/min/1.73 m2 CREATININE (test code 0.80 MG/DL 0.52-1.04 N = CREAT) CALCIUM (test code = MG/DL 8.7-9.7 CA) BASIC METABOLIC [id number] 05:57:00 Test Item Value Reference Range Interpretation Comments SODIUM (test code = NA) 133 MMOL/L 137-145 L POTASSIUM (test code = K) 3.7 MMOL/L 3.5-5.1 N CHLORIDE (test code = CL) 105 MMOL/L 98-107 N CARBON DIOXIDE (test code = CO2) MMOL/L 22-30 GLUCOSE (test code = GLU) MG/DL 74-106 BLOOD UREA NITROGEN (test code = MG/DL 7-17 BUN) GLOMERULAR FILTRATION RATE (test code = GFR) CREATININE (test code = CREAT) MG/DL 0.52-1.04 CALCIUM (test code = CA) MG/DL 8.7-9.7 PROTHROMBIN [id number] 05:38:00 Test Item Value Reference Range Interpretation Comments PROTHROMBIN TIME 26.4 SECONDS 9.4-12.5 H PATIENT (test code = PTP) INTERNATIONAL NORMAL 2.4 The INR is to be RATIO (test code = used only for INR) monitoring oral anticoagulantth erap y. INDICATION I NR VALUE ---- ---- ---- -------1. Prophylaxis, de ep venous thrombos is, including hig h risk surgery. 2.0 - 3.0 2. Prophylaxis, de ep venous thrombos is, hip surgery, treatment for d eep venous thrombosis or pulmonary prevention of systemic emboli sm in patients wit h valvular heart disease, atrial fibrillation, tissue heart va lve, or acute myocar dial infarction. 2.0 - 3 .0 3. Mechanical prosthesis hear t valves, recurrent syste eric embolism. 3.0 - 4.5 Comments to Medical Biller: WITH AM LABSCBC W/AUTO [id number] 05:29:00 Test Item Value Reference Range Interpretation Comments WHITE BLOOD CELL (test code = 18.4 K/MM3 3.8-9.8 H WBC) RED BLOOD CELL (test code = 3.07 M/MM3 3.58-4.97 L RBC) HEMOGLOBIN (test code = HGB) 9.1 G/DL 11.2-14.9 L HEMATOCRIT (test code = HCT) 28.7 % 33.2-43.5 L MEAN CELL VOLUME (test code = 94 fL 80.7-99.1 N MCV) MEAN CELL HGB (test code = MCH) 29.6 pg 27.0-34.1 N MEAN CELL HGB CONCETRATION 31.7 % 32.2-35.7 L (test code = MCHC) RED CELL DISTRIBUTION WIDTH 16.1 % 12.1-15.2 H (test code = RDW) PLATELET COUNT (test code = 394 K/MM3 129-368 H PLT) MEAN PLATELET VOLUME (test code 10.6 fl 7.4-10.4 H = MPV) NEUTROPHIL % (test code = NT%) 77.8 % 43-75 H IMMATURE GRANULOCYTE % (test 2.3 % 0.0-2.0 H code = IG%) LYMPHOCYTE % (test code = LY%) 5.4 % 14-44 L MONOCYTE % (test code = MO%) 13.2 % 4-13 H EOSINOPHIL % (test code = EO%) 0.5 % 0-6 N BASOPHIL % (test code = BA%) 0.8 % 0-2 N NUCLEATED RBC % (test code = 0.0 % 0-1.0 N NRBC%) NEUTROPHIL # (test code = NT#) 14.34 K/mm3 2.0-7.6 H IMMATURE GRANULOCYTE # (test 0.42 x10 3/uL 0-0.03 H code = IG#) LYMPHOCYTE # (test code = LY#) 1.00 K/mm3 1.0-3.8 N MONOCYTE # (test code = MO#) 2.43 K/mm3 0.1-0.8 H EOSINOPHIL # (test code = EO#) 0.10 K/mm3 0.0-0.2 N BASOPHIL # (test code = BA#) 0.14 K/mm3 0.0-0.2 N NUCLEATED RBC # (test code = 0.00 K/mm3 0.0-0.1 N NRBC#) GLUCOSE BEDSIDE [id number] 20:19:00 Test Item Value Reference Range Interpretation Comments GLUCOSE BEDSIDE TESTING (test code 212 MG/DL 60-99 H = GLUBED) GLUCOSE BEDSIDE [id number] 17:34:00 Test Item Value Reference Range Interpretation Comments GLUCOSE BEDSIDE TESTING (test code 217 MG/DL 60-99 H = GLUBED) GLUCOSE BEDSIDE [id number] 13:00:00 Test Item Value Reference Range Interpretation Comments GLUCOSE BEDSIDE TESTING (test code 207 MG/DL 60-99 H = GLUBED) BASIC METABOLIC [id number] 05:59:00 Test Item Value Reference Range Interpretation Comments SODIUM (test code = 135 MMOL/L 137-145 L NA) POTASSIUM (test code = 3.4 MMOL/L 3.5-5.1 L K) CHLORIDE (test code = 107 MMOL/L 98-107 N CL) CARBON DIOXIDE (test 22 MMOL/L 22-30 N code = CO2) ANION GAP (test code = 9 MMOL/L 14-24 L GAP) GLUCOSE (test code = 297 MG/DL 74-106 H GLU) BLOOD UREA NITROGEN 38 MG/DL 7-17 H (test code = BUN) GLOMERULAR FILTRATION 60 Report ing units: RATE (test code = GFR) ml/mi n/1.73 m2 (Modified MDRD Formula)Referen ce Range: > or = 6 0 ml/min/1.73 m2 CREATININE (test code 0.90 MG/DL 0.52-1.04 N = CREAT) CALCIUM (test code = 7.1 MG/DL 8.4-10.2 L CA) BASIC METABOLIC [id number] 05:51:00 Test Item Value Reference Range Interpretation Comments SODIUM (test code = 135 MMOL/L 137-145 L NA) POTASSIUM (test code = 3.4 MMOL/L 3.5-5.1 L K) CHLORIDE (test code = 107 MMOL/L 98-107 N CL) CARBON DIOXIDE (test MMOL/L 22-30 code = CO2) GLUCOSE (test code = MG/DL 74-106 GLU) BLOOD UREA NITROGEN MG/DL 7-17 (test code = BUN) GLOMERULAR FILTRATION 60 Report ing units: RATE (test code = GFR) ml/mi n/1.73 m2 (Modified MDRD Formula)Referen ce Range: > or = 6 0 ml/min/1.73 m2 CREATININE (test code 0.90 MG/DL 0.52-1.04 N = CREAT) CALCIUM (test code = MG/DL 8.7-9.7 CA) BASIC METABOLIC [id number] 05:49:00 Test Item Value Reference Range Interpretation Comments SODIUM (test code = NA) 135 MMOL/L 137-145 L POTASSIUM (test code = K) 3.4 MMOL/L 3.5-5.1 L CHLORIDE (test code = CL) 107 MMOL/L 98-107 N CARBON DIOXIDE (test code = CO2) MMOL/L 22-30 GLUCOSE (test code = GLU) MG/DL 74-106 BLOOD UREA NITROGEN (test code = MG/DL 7-17 BUN) GLOMERULAR FILTRATION RATE (test code = GFR) CREATININE (test code = CREAT) MG/DL 0.52-1.04 CALCIUM (test code = CA) MG/DL 8.7-9.7 PROTHROMBIN [id number] 05:34:00 Test Item Value Reference Range Interpretation Comments PROTHROMBIN TIME 30.7 SECONDS 9.4-12.5 H PATIENT (test code = PTP) INTERNATIONAL NORMAL 2.8 The INR is to be RATIO (test code = used only for INR) monitoring oral anticoagulantth erap y. INDICATION I NR VALUE ---- ---- ---- -------1. Prophylaxis, de ep venous thrombos is, including hig h risk surgery. 2.0 - 3.0 2. Prophylaxis, de ep venous thrombos is, hip surgery, treatment for d eep venous thrombosis or pulmonary prevention of systemic emboli sm in patients wit h valvular heart disease, atrial fibrillation, tissue heart va lve, or acute myocar dial infarction. 2.0 - 3 .0 3. Mechanical prosthesis hear t valves, recurrent syste eric embolism. 3.0 - 4.5 CBC W/AUTO [id number] 05:16:00 Test Item Value Reference Range Interpretation Comments WHITE BLOOD CELL (test code = 17.7 K/MM3 3.8-9.8 H WBC) RED BLOOD CELL (test code = 3.16 M/MM3 3.58-4.97 L RBC) HEMOGLOBIN (test code = HGB) 9.4 G/DL 11.2-14.9 L HEMATOCRIT (test code = HCT) 29.8 % 33.2-43.5 L MEAN CELL VOLUME (test code = 94 fL 80.7-99.1 N MCV) MEAN CELL HGB (test code = MCH) 29.7 pg 27.0-34.1 N MEAN CELL HGB CONCETRATION 31.5 % 32.2-35.7 L (test code = MCHC) RED CELL DISTRIBUTION WIDTH 16.2 % 12.1-15.2 H (test code = RDW) PLATELET COUNT (test code = 389 K/MM3 129-368 H PLT) MEAN PLATELET VOLUME (test code 10.0 fl 7.4-10.4 N = MPV) NEUTROPHIL % (test code = NT%) 83.6 % 43-75 H IMMATURE GRANULOCYTE % (test 2.5 % 0.0-2.0 H code = IG%) LYMPHOCYTE % (test code = LY%) 3.4 % 14-44 L MONOCYTE % (test code = MO%) 9.6 % 4-13 N EOSINOPHIL % (test code = EO%) 0.1 % 0-6 N BASOPHIL % (test code = BA%) 0.8 % 0-2 N NUCLEATED RBC % (test code = 0.0 % 0-1.0 N NRBC%) NEUTROPHIL # (test code = NT#) 14.81 K/mm3 2.0-7.6 H IMMATURE GRANULOCYTE # (test 0.45 x10 3/uL 0-0.03 H code = IG#) LYMPHOCYTE # (test code = LY#) 0.60 K/mm3 1.0-3.8 L MONOCYTE # (test code = MO#) 1.70 K/mm3 0.1-0.8 H EOSINOPHIL # (test code = EO#) 0.02 K/mm3 0.0-0.2 N BASOPHIL # (test code = BA#) 0.15 K/mm3 0.0-0.2 N NUCLEATED RBC # (test code = 0.00 K/mm3 0.0-0.1 N NRBC#) PROTHROMBIN [id number] 06:34:00 Test Item Value Reference Range Interpretation Comments PROTHROMBIN TIME 31.1 SECONDS 9.4-12.5 H PATIENT (test code = PTP) INTERNATIONAL NORMAL 2.8 The INR is to be RATIO (test code = used only for INR) monitoring oral anticoagulantth erap y. INDICATION I NR VALUE ---- ---- ---- -------1. Prophylaxis, de ep venous thrombos is, including hig h risk surgery. 2.0 - 3.0 2. Prophylaxis, de ep venous thrombos is, hip surgery, treatment for d eep venous thrombosis or pulmonary prevention of systemic emboli sm in patients wit h valvular heart disease, atrial fibrillation, tissue heart va lve, or acute myocar dial infarction. 2.0 - 3 .0 3. Mechanical prosthesis hear t valves, recurrent syste eric embolism. 3.0 - 4.5 BASIC METABOLIC [id number] 06:25:00 Test Item Value Reference Range Interpretation Comments SODIUM (test code = 134 MMOL/L 137-145 L NA) POTASSIUM (test code = 3.7 MMOL/L 3.5-5.1 N K) CHLORIDE (test code = 106 MMOL/L 98-107 N CL) CARBON DIOXIDE (test 20 MMOL/L 22-30 L code = CO2) GLUCOSE (test code = 63 MG/DL 74-106 L GLU) BLOOD UREA NITROGEN 40 MG/DL 7-17 H (test code = BUN) GLOMERULAR FILTRATION 60 Report ing units: RATE (test code = GFR) ml/mi n/1.73 m2 (Modified MDRD Formula)Referen ce Range: > or = 6 0 ml/min/1.73 m2 CREATININE (test code 0.90 MG/DL 0.52-1.04 N = CREAT) CALCIUM (test code = 7.3 MG/DL 8.4-10.2 L CA) BASIC METABOLIC [id number] 06:22:00 Test Item Value Reference Range Interpretation Comments SODIUM (test code = NA) 134 MMOL/L 137-145 L POTASSIUM (test code = K) 3.7 MMOL/L 3.5-5.1 N CHLORIDE (test code = CL) 106 MMOL/L 98-107 N CARBON DIOXIDE (test code = CO2) MMOL/L 22-30 GLUCOSE (test code = GLU) MG/DL 74-106 BLOOD UREA NITROGEN (test code = MG/DL 7-17 BUN) GLOMERULAR FILTRATION RATE (test code = GFR) CREATININE (test code = CREAT) MG/DL 0.52-1.04 CALCIUM (test code = CA) MG/DL 8.7-9.7 LACTIC [id number] 06:19:00 Test Item Value Reference Range Interpretation Comments LACTIC ACID (test code = LACT) 0.8 MMOL/L 0.7-2.1 N CBC W/AUTO [id number] 06:02:00 Test Item Value Reference Range Interpretation Comments WHITE BLOOD CELL (test code = 23.0 K/MM3 3.8-9.8 H WBC) RED BLOOD CELL (test code = 3.18 M/MM3 3.58-4.97 L RBC) HEMOGLOBIN (test code = HGB) 9.4 G/DL 11.2-14.9 L HEMATOCRIT (test code = HCT) 30.0 % 33.2-43.5 L MEAN CELL VOLUME (test code = 94 fL 80.7-99.1 N MCV) MEAN CELL HGB (test code = MCH) 29.6 pg 27.0-34.1 N MEAN CELL HGB CONCETRATION 31.3 % 32.2-35.7 L (test code = MCHC) RED CELL DISTRIBUTION WIDTH 15.9 % 12.1-15.2 H (test code = RDW) PLATELET COUNT (test code = 382 K/MM3 129-368 H PLT) MEAN PLATELET VOLUME (test code 9.9 fl 7.4-10.4 N = MPV) NEUTROPHIL % (test code = NT%) 83.8 % 43-75 H IMMATURE GRANULOCYTE % (test 2.4 % 0.0-2.0 H code = IG%) LYMPHOCYTE % (test code = LY%) 2.6 % 14-44 L MONOCYTE % (test code = MO%) 11.2 % 4-13 N EOSINOPHIL % (test code = EO%) 0.0 % 0-6 N BASOPHIL % (test code = BA%) 0 % 0-2 N NUCLEATED RBC % (test code = 0.0 % 0-1.0 N NRBC%) NEUTROPHIL # (test code = NT#) 19.26 K/mm3 2.0-7.6 H IMMATURE GRANULOCYTE # (test 0.56 x10 3/uL 0-0.03 H code = IG#) LYMPHOCYTE # (test code = LY#) 0.60 K/mm3 1.0-3.8 L MONOCYTE # (test code = MO#) 2.57 K/mm3 0.1-0.8 H EOSINOPHIL # (test code = EO#) 0.01 K/mm3 0.0-0.2 N BASOPHIL # (test code = BA#) 0.01 K/mm3 0.0-0.2 N NUCLEATED RBC # (test code = 0.00 K/mm3 0.0-0.1 N NRBC#) GLUCOSE BEDSIDE [id number] 10:01:00 Test Item Value Reference Range Interpretation Comments GLUCOSE BEDSIDE TESTING (test code = 96 MG/DL 60-99 N GLUBED) GLUCOSE BEDSIDE [id number] 09:16:00 Test Item Value Reference Range Interpretation Comments GLUCOSE BEDSIDE TESTING (test code = 58 MG/DL 60-99 L GLUBED) BASIC METABOLIC [id number] 06:07:00 Test Item Value Reference Range Interpretation Comments SODIUM (test code = 135 MMOL/L 137-145 L NA) POTASSIUM (test code = 4.0 MMOL/L 3.5-5.1 N K) CHLORIDE (test code = 105 MMOL/L 98-107 N CL) CARBON DIOXIDE (test 20 MMOL/L 22-30 L code = CO2) ANION GAP (test code = 14 MMOL/L 14-24 N GAP) GLUCOSE (test code = 51 MG/DL 74-106 L CALLED TO [facility] & GLU) READBACK ON 07/28 AT 0606 Clint Jeronimo BLOOD UREA NITROGEN 36 MG/DL 7-17 H (test code = BUN) GLOMERULAR FILTRATION 60 Report ing units: RATE (test code = GFR) ml/mi n/1.73 m2 (Modified MDRD Formula)Referen ce Range: > or = 6 0 ml/min/1.73 m2 CREATININE (test code 0.90 MG/DL 0.52-1.04 N = CREAT) CALCIUM (test code = 7.4 MG/DL 8.4-10.2 L CA) PROTHROMBIN [id number] 06:06:00 Test Item Value Reference Range Interpretation Comments PROTHROMBIN TIME 20.4 SECONDS 9.4-12.5 H PATIENT (test code = PTP) INTERNATIONAL NORMAL 1.8 The INR is to be RATIO (test code = used only for INR) monitoring oral anticoagulantth erap y. INDICATION I NR VALUE ---- ---- ---- -------1. Prophylaxis, de ep venous thrombos is, including hig h risk surgery. 2.0 - 3.0 2. Prophylaxis, de ep venous thrombos is, hip surgery, treatment for d eep venous thrombosis or pulmonary prevention of systemic emboli sm in patients wit h valvular heart disease, atrial fibrillation, tissue heart va lve, or acute myocar dial infarction. 2.0 - 3 .0 3. Mechanical prosthesis hear t valves, recurrent syste eric embolism. 3.0 - 4.5 BASIC METABOLIC [id number] 06:01:00 Test Item Value Reference Range Interpretation Comments SODIUM (test code = 135 MMOL/L 137-145 L NA) POTASSIUM (test code = 4.0 MMOL/L 3.5-5.1 N K) CHLORIDE (test code = 105 MMOL/L 98-107 N CL) CARBON DIOXIDE (test MMOL/L 22-30 code = CO2) GLUCOSE (test code = MG/DL 74-106 GLU) BLOOD UREA NITROGEN MG/DL 7-17 (test code = BUN) GLOMERULAR FILTRATION 60 Report ing units: RATE (test code = GFR) ml/mi n/1.73 m2 (Modified MDRD Formula)Referen ce Range: > or = 6 0 ml/min/1.73 m2 CREATININE (test code 0.90 MG/DL 0.52-1.04 N = CREAT) CALCIUM (test code = MG/DL 8.7-9.7 CA) BASIC METABOLIC [id number] 05:59:00 Test Item Value Reference Range Interpretation Comments SODIUM (test code = NA) 135 MMOL/L 137-145 L POTASSIUM (test code = K) 4.0 MMOL/L 3.5-5.1 N CHLORIDE (test code = CL) 105 MMOL/L 98-107 N CARBON DIOXIDE (test code = CO2) MMOL/L 22-30 GLUCOSE (test code = GLU) MG/DL 74-106 BLOOD UREA NITROGEN (test code = MG/DL 7-17 BUN) GLOMERULAR FILTRATION RATE (test code = GFR) CREATININE (test code = CREAT) MG/DL 0.52-1.04 CALCIUM (test code = CA) MG/DL 8.7-9.7 BASIC METABOLIC [id number] 05:58:00 Test Item Value Reference Range Interpretation Comments SODIUM (test code = NA) MMOL/L 137-145 POTASSIUM (test code = K) MMOL/L 3.5-5.1 CHLORIDE (test code = CL) 105 MMOL/L 98-107 N CARBON DIOXIDE (test code = CO2) MMOL/L 22-30 GLUCOSE (test code = GLU) MG/DL 74-106 BLOOD UREA NITROGEN (test code = MG/DL 7-17 BUN) GLOMERULAR FILTRATION RATE (test code = GFR) CREATININE (test code = CREAT) MG/DL 0.52-1.04 CALCIUM (test code = CA) MG/DL 8.7-9.7 CBC W/AUTO [id number] 05:51:00 Test Item Value Reference Range Interpretation Comments WHITE BLOOD CELL (test code = 22.8 K/MM3 3.8-9.8 H WBC) RED BLOOD CELL (test code = 2.65 M/MM3 3.58-4.97 L RBC) HEMOGLOBIN (test code = HGB) 7.9 G/DL 11.2-14.9 L HEMATOCRIT (test code = HCT) 25.6 % 33.2-43.5 L MEAN CELL VOLUME (test code = 97 fL 80.7-99.1 N MCV) MEAN CELL HGB (test code = MCH) 29.8 pg 27.0-34.1 N MEAN CELL HGB CONCETRATION 30.9 % 32.2-35.7 L (test code = MCHC) RED CELL DISTRIBUTION WIDTH 15.9 % 12.1-15.2 H (test code = RDW) PLATELET COUNT (test code = 412 K/MM3 129-368 H PLT) MEAN PLATELET VOLUME (test code 10.3 fl 7.4-10.4 N = MPV) NEUTROPHIL % (test code = NT%) 82.5 % 43-75 H IMMATURE GRANULOCYTE % (test 1.8 % 0.0-2.0 N code = IG%) LYMPHOCYTE % (test code = LY%) 3.8 % 14-44 L MONOCYTE % (test code = MO%) 11.3 % 4-13 N EOSINOPHIL % (test code = EO%) 0.1 % 0-6 N BASOPHIL % (test code = BA%) 0.5 % 0-2 N NUCLEATED RBC % (test code = 0.0 % 0-1.0 N NRBC%) NEUTROPHIL # (test code = NT#) 18.84 K/mm3 2.0-7.6 H IMMATURE GRANULOCYTE # (test 0.41 x10 3/uL 0-0.03 H code = IG#) LYMPHOCYTE # (test code = LY#) 0.87 K/mm3 1.0-3.8 L MONOCYTE # (test code = MO#) 2.57 K/mm3 0.1-0.8 H EOSINOPHIL # (test code = EO#) 0.02 K/mm3 0.0-0.2 N BASOPHIL # (test code = BA#) 0.11 K/mm3 0.0-0.2 N NUCLEATED RBC # (test code = 0.00 K/mm3 0.0-0.1 N NRBC#) COMPREHENSIVE METABOLIC [id number] 06:04:00 Test Item Value Reference Range Interpretation Comments SODIUM (test code = 137 MMOL/L 137-145 N NA) POTASSIUM (test code 4.0 MMOL/L 3.5-5.1 N = K) CHLORIDE (test code 108 MMOL/L 98-107 H = CL) CARBON DIOXIDE (test 23 MMOL/L 22-30 N code = CO2) ANION GAP (test code 10 MMOL/L 14-24 L = GAP) GLUCOSE (test code = 99 MG/DL 74-106 GLU) BLOOD UREA NITROGEN 34 MG/DL 7-17 H (test code = BUN) GLOMERULAR 60 Reporting units : FILTRATION RATE ml/min/1.73 m2 (test code = GFR) (Modified MDRD Formula)Referen ce Range: > or = 6 0 ml/min/1.73 m2 CREATININE (test 0.90 MG/DL 0.52-1.04 N code = CREAT) TOTAL PROTEIN (test 5.3 G/DL 6.3-8.2 L code = PROT) ALBUMIN (test code = 2.3 G/DL 3.5-5.0 L ALB) CALCIUM (test code = 8.0 MG/DL 8.4-10.2 L CA) BILIRUBIN TOTAL 0.9 MG/DL 0.2-1.3 N Eltrombopag (test code = BILT) Interfere nce for Vitros Product TBil, BuBc: ======= ======= ======A ssay Eltrombop ag Analyte/ Max Observed Avg. Bias Concentratio n Concentration Concentration== ======= ======= ======= =======TBil 7 mg/dl TBil/ 1.2m g/dl +0.23mg.dl +0.20mg/dlBuBc 3.5mg/dl Bu/0.8mg/dl +0.25mg/dl +0.24mg/dlBuBc 7 mg/dl Bu/14.2mg/dl +0.38mg/dl +0.25mg/dlBuBc 5mg/dl Bc/0mg/dl +0.25mg/dl +0.15mg/dlBuBc 3.5mg/dl Bc/2.8mg/dl +0.25mg/dl +0.23mg/dl SGOT/AST (test code 48 UNITS/L 14-36 H = AST) SGPT/ALT (test code 16 UNITS/L <35 = ALT) ALKALINE PHOSPHATASE 116 UNITS/L 38-126 N (test code = ALKP) COMPREHENSIVE METABOLIC [id number] 05:59:00 Test Item Value Reference Range Interpretation Comments SODIUM (test code = NA) 137 MMOL/L 137-145 N POTASSIUM (test code = K) 4.0 MMOL/L 3.5-5.1 N CHLORIDE (test code = CL) 108 MMOL/L 98-107 H CARBON DIOXIDE (test code = CO2) MMOL/L 22-30 GLUCOSE (test code = GLU) MG/DL 74-106 BLOOD UREA NITROGEN (test code = MG/DL 7-17 BUN) GLOMERULAR FILTRATION RATE (test code = GFR) CREATININE (test code = CREAT) MG/DL 0.52-1.04 TOTAL PROTEIN (test code = PROT) G/DL 6.3-8.2 ALBUMIN (test code = ALB) 2.3 G/DL 3.5-5.0 L CALCIUM (test code = CA) MG/DL 8.7-9.7 BILIRUBIN TOTAL (test code = BILT) MG/DL 0.2-1.3 SGOT/AST (test code = AST) UNITS/L 15-37 SGPT/ALT (test code = ALT) UNITS/L <35 ALKALINE PHOSPHATASE (test code = UNITS/L 38-126 ALKP) CBC W/AUTO [id number] 05:43:00 Test Item Value Reference Range Interpretation Comments WHITE BLOOD CELL (test code = 19.6 K/MM3 3.8-9.8 H WBC) RED BLOOD CELL (test code = 2.73 M/MM3 3.58-4.97 L RBC) HEMOGLOBIN (test code = HGB) 8.2 G/DL 11.2-14.9 L HEMATOCRIT (test code = HCT) 25.7 % 33.2-43.5 L MEAN CELL VOLUME (test code = 94 fL 80.7-99.1 N MCV) MEAN CELL HGB (test code = MCH) 30.0 pg 27.0-34.1 N MEAN CELL HGB CONCETRATION 31.9 % 32.2-35.7 L (test code = MCHC) RED CELL DISTRIBUTION WIDTH 15.5 % 12.1-15.2 H (test code = RDW) PLATELET COUNT (test code = 366 K/MM3 129-368 N PLT) MEAN PLATELET VOLUME (test code 10.1 fl 7.4-10.4 N = MPV) NEUTROPHIL % (test code = NT%) 83.8 % 43-75 H IMMATURE GRANULOCYTE % (test 1.8 % 0.0-2.0 N code = IG%) LYMPHOCYTE % (test code = LY%) 5.3 % 14-44 L MONOCYTE % (test code = MO%) 8.6 % 4-13 N EOSINOPHIL % (test code = EO%) 0.2 % 0-6 N BASOPHIL % (test code = BA%) 0.3 % 0-2 N NUCLEATED RBC % (test code = 0.1 % 0-1.0 N NRBC%) NEUTROPHIL # (test code = NT#) 16.40 K/mm3 2.0-7.6 H IMMATURE GRANULOCYTE # (test 0.36 x10 3/uL 0-0.03 H code = IG#) LYMPHOCYTE # (test code = LY#) 1.04 K/mm3 1.0-3.8 N MONOCYTE # (test code = MO#) 1.69 K/mm3 0.1-0.8 H EOSINOPHIL # (test code = EO#) 0.03 K/mm3 0.0-0.2 N BASOPHIL # (test code = BA#) 0.06 K/mm3 0.0-0.2 N NUCLEATED RBC # (test code = 0.02 K/mm3 0.0-0.1 N NRBC#) [id number] 23:35:00 Test Item Value Reference Range Interpretation Comments HEMOGLOBIN (test code = HGB) 9.7 G/DL 11.2-14.9 L COMPREHENSIVE METABOLIC [id number] 20:53:00 Test Item Value Reference Range Interpretation Comments SODIUM (test code = 137 MMOL/L 137-145 N NA) POTASSIUM (test code 3.8 MMOL/L 3.5-5.1 N = K) CHLORIDE (test code 107 MMOL/L 98-107 N = CL) CARBON DIOXIDE (test 23 MMOL/L 22-30 N code = CO2) GLUCOSE (test code = 132 MG/DL 74-106 H GLU) BLOOD UREA NITROGEN 34 MG/DL 7-17 H (test code = BUN) GLOMERULAR 53 Reporting units : FILTRATION RATE ml/min/1.73 m2 (test code = GFR) (Modified MDRD Formula)Referen ce Range: > or = 6 0 ml/min/1.73 m2 CREATININE (test 1.00 MG/DL 0.52-1.04 N code = CREAT) TOTAL PROTEIN (test 5.4 G/DL 6.3-8.2 L code = PROT) ALBUMIN (test code = 2.4 G/DL 3.5-5.0 L ALB) CALCIUM (test code = 7.6 MG/DL 8.4-10.2 L CA) BILIRUBIN TOTAL 0.9 MG/DL 0.2-1.3 N Eltrombopag (test code = BILT) Interfere nce for Vitros Product TBil, BuBc: ======= ======= ======A ssay Eltrombop ag Analyte/ Max Observed Avg. Bias Concentratio n Concentration Concentration== ======= ======= ======= =======TBil 7 mg/dl TBil/ 1.2m g/dl +0.23mg.dl +0.20mg/dlBuBc 3.5mg/dl Bu/0.8mg/dl +0.25mg/dl +0.24mg/dlBuBc 7 mg/dl Bu/14.2mg/dl +0.38mg/dl +0.25mg/dlBuBc 5mg/dl Bc/0mg/dl +0.25mg/dl +0.15mg/dlBuBc 3.5mg/dl Bc/2.8mg/dl +0.25mg/dl +0.23mg/dl SGOT/AST (test code 49 UNITS/L 14-36 H = AST) SGPT/ALT (test code 18 UNITS/L <35 = ALT) ALKALINE PHOSPHATASE 115 UNITS/L 38-126 N (test code = ALKP) UNABLE TO DRAW BLOOD, REASON: CBNNOTIFIED PATIENT CARE STAFF: [facility] 12/13/19 AT 1741 BY Kristen Henry GREEN TOP WERE SENT AT 18:10COMPREHENSIVE METABOLIC [id number] 20:50:00 Test Item Value Reference Range Interpretation Comments SODIUM (test code = 137 MMOL/L 137-145 N NA) POTASSIUM (test code 3.8 MMOL/L 3.5-5.1 N = K) CHLORIDE (test code 107 MMOL/L 98-107 N = CL) CARBON DIOXIDE (test 23 MMOL/L 22-30 N code = CO2) GLUCOSE (test code = MG/DL 74-106 GLU) BLOOD UREA NITROGEN 34 MG/DL 7-17 H (test code = BUN) GLOMERULAR 53 Reporting units : FILTRATION RATE ml/min/1.73 m2 (test code = GFR) (Modified MDRD Formula)Referen ce Range: > or = 6 0 ml/min/1.73 m2 CREATININE (test 1.00 MG/DL 0.52-1.04 N code = CREAT) TOTAL PROTEIN (test 5.4 G/DL 6.3-8.2 L code = PROT) ALBUMIN (test code = 2.4 G/DL 3.5-5.0 L ALB) CALCIUM (test code = MG/DL 8.7-9.7 CA) BILIRUBIN TOTAL 0.9 MG/DL 0.2-1.3 N Eltrombopag (test code = BILT) Interfere nce for Vitros Product TBil, BuBc: ======= ======= ======A ssay Eltrombop ag Analyte/ Max Observed Avg. Bias Concentratio n Concentration Concentration== ======= ======= ======= =======TBil 7 mg/dl TBil/ 1.2m g/dl +0.23mg.dl +0.20mg/dlBuBc 3.5mg/dl Bu/0.8mg/dl +0.25mg/dl +0.24mg/dlBuBc 7 mg/dl Bu/14.2mg/dl +0.38mg/dl +0.25mg/dlBuBc 5mg/dl Bc/0mg/dl +0.25mg/dl +0.15mg/dlBuBc 3.5mg/dl Bc/2.8mg/dl +0.25mg/dl +0.23mg/dl SGOT/AST (test code 49 UNITS/L 14-36 H = AST) SGPT/ALT (test code UNITS/L <35 = ALT) ALKALINE PHOSPHATASE 115 UNITS/L 38-126 N (test code = ALKP) UNABLE TO DRAW BLOOD, REASON: CBNNOTIFIED PATIENT CARE STAFF: [facility] 12/13/19 AT 1741 BY Kristen Henry NO GREEN TOP WERE SENT AT 18:10COMPREHENSIVE METABOLIC [id number] 20:48:00 Test Item Value Reference Range Interpretation Comments SODIUM (test code = NA) 137 MMOL/L 137-145 N POTASSIUM (test code = K) 3.8 MMOL/L 3.5-5.1 N CHLORIDE (test code = CL) 107 MMOL/L 98-107 N CARBON DIOXIDE (test code = CO2) MMOL/L 22-30 GLUCOSE (test code = GLU) MG/DL 74-106 BLOOD UREA NITROGEN (test code = MG/DL 7-17 BUN) GLOMERULAR FILTRATION RATE (test code = GFR) CREATININE (test code = CREAT) MG/DL 0.52-1.04 TOTAL PROTEIN (test code = PROT) G/DL 6.3-8.2 ALBUMIN (test code = ALB) 2.4 G/DL 3.5-5.0 L CALCIUM (test code = CA) MG/DL 8.7-9.7 BILIRUBIN TOTAL (test code = BILT) MG/DL 0.2-1.3 SGOT/AST (test code = AST) UNITS/L 15-37 SGPT/ALT (test code = ALT) UNITS/L <35 ALKALINE PHOSPHATASE (test code = UNITS/L 38-126 ALKP) UNABLE TO DRAW BLOOD, REASON: CBNNOTIFIED PATIENT CARE STAFF: [facility] 12/13/19 AT 1741 BY Kristen Henry NO GREEN TOP WERE SENT AT 18:10COMPREHENSIVE METABOLIC [id number] 20:47:00 Test Item Value Reference Range Interpretation Comments SODIUM (test code = NA) MMOL/L 137-145 POTASSIUM (test code = K) MMOL/L 3.5-5.1 CHLORIDE (test code = CL) 107 MMOL/L 98-107 N CARBON DIOXIDE (test code = CO2) MMOL/L 22-30 GLUCOSE (test code = GLU) MG/DL 74-106 BLOOD UREA NITROGEN (test code = MG/DL 7-17 BUN) GLOMERULAR FILTRATION RATE (test code = GFR) CREATININE (test code = CREAT) MG/DL 0.52-1.04 TOTAL PROTEIN (test code = PROT) G/DL 6.3-8.2 ALBUMIN (test code = ALB) 2.4 G/DL 3.5-5.0 L CALCIUM (test code = CA) MG/DL 8.7-9.7 BILIRUBIN TOTAL (test code = BILT) MG/DL 0.2-1.3 SGOT/AST (test code = AST) UNITS/L 15-37 SGPT/ALT (test code = ALT) UNITS/L <35 ALKALINE PHOSPHATASE (test code = UNITS/L 38-126 ALKP) UNABLE TO DRAW BLOOD, REASON: CBNNOTIFIED PATIENT CARE STAFF: [facility] 12/13/19 AT 1741 BY Kristen Henry GREEN TOP WERE SENT AT 18:10CBC W/AUTO DIFF 2019-12-13 18:38:00 Test Item Value Reference Range Interpretation Comments WHITE BLOOD CELL (test code = 19.8 K/MM3 3.8-9.8 H WBC) RED BLOOD CELL (test code = 2.81 M/MM3 3.58-4.97 L RBC) HEMOGLOBIN (test code = HGB) 8.4 G/DL 11.2-14.9 L HEMATOCRIT (test code = HCT) 26.4 % 33.2-43.5 L MEAN CELL VOLUME (test code = 94 fL 80.7-99.1 N MCV) MEAN CELL HGB (test code = MCH) 29.9 pg 27.0-34.1 N MEAN CELL HGB CONCETRATION 31.8 % 32.2-35.7 L (test code = MCHC) RED CELL DISTRIBUTION WIDTH 15.2 % 12.1-15.2 N (test code = RDW) PLATELET COUNT (test code = 365 K/MM3 129-368 N PLT) MEAN PLATELET VOLUME (test code 9.9 fl 7.4-10.4 N = MPV) NEUTROPHIL % (test code = NT%) 85.7 % 43-75 H IMMATURE GRANULOCYTE % (test 1.8 % 0.0-2.0 N code = IG%) LYMPHOCYTE % (test code = LY%) 5.3 % 14-44 L MONOCYTE % (test code = MO%) 6.8 % 4-13 N EOSINOPHIL % (test code = EO%) 0.1 % 0-6 N BASOPHIL % (test code = BA%) 0.3 % 0-2 N NUCLEATED RBC % (test code = 0.0 % 0-1.0 N NRBC%) NEUTROPHIL # (test code = NT#) 16.96 K/mm3 2.0-7.6 H IMMATURE GRANULOCYTE # (test 0.35 x10 3/uL 0-0.03 H code = IG#) LYMPHOCYTE # (test code = LY#) 1.05 K/mm3 1.0-3.8 N MONOCYTE # (test code = MO#) 1.35 K/mm3 0.1-0.8 H EOSINOPHIL # (test code = EO#) 0.02 K/mm3 0.0-0.2 N BASOPHIL # (test code = BA#) 0.05 K/mm3 0.0-0.2 N NUCLEATED RBC # (test code = 0.00 K/mm3 0.0-0.1 N NRBC#) UNABLE TO DRAW BLOOD, REASON: CBNBNOTIFIED PATIENT CARE STAFF: NICK 12/13/19 AT 1742 BY Kristen Henry- XR ABDOMEN 1 [id number] 18:16:00 [facility] : 1940 Sex: F Patient Name: JORGE A HORTA Unit No: [id number] EXAMS: CPT CODE: [id number] XR ABDOMEN 1 V [id number] Dictation location: H37. ABDOMEN, 1 VIEW HISTORY:GI Bleed FINDINGS: Since 12/12/19 there is continued distended organized loops of small bowel. Air is seen in the colon. IMPRESSION: Ileus versus partial small bowel obstruction. at 1816 Reported and signed by: Ann-Marie Lombardo MD CC: Tevin Samuels; Ramu Sutherland MD; Raji Jordan MD Technologist: Carolynn Rosario RT(R) Transcrpt Date/Tm/Trnsp: 12/13/2019 (1815) [email or web address] Orig Print D/T: S: 12/13/2019 (1819) [facility] NAME: JORGE A HORTA [id number] [address] PHYS: [id number] - [place] [address] : 1940 AGE: 79 SEX: F LOC: [id number] PHONE #: [phone] EXAM DATE: 12/13/2019 STATUS: ADM IN FAX #: [phone] RADIOLOGY NO: PAGE 1 Signed ReportLACTIC [id number] 10:38:00 Test Item Value Reference Range Interpretation Comments LACTIC ACID (test code = LACT) 1.4 MMOL/L 0.7-2.1 N PROTHROMBIN [id number] 06:13:00 Test Item Value Reference Range Interpretation Comments PROTHROMBIN TIME 17.0 SECONDS 9.4-12.5 H PATIENT (test code = PTP) INTERNATIONAL NORMAL 1.5 The INR is to be RATIO (test code = used only for INR) monitoring oral anticoagulantth erap y. INDICATION I NR VALUE ---- ---- ---- -------1. Prophylaxis, de ep venous thrombos is, including hig h risk surgery. 2.0 - 3.0 2. Prophylaxis, de ep venous thrombos is, hip surgery, treatment for d eep venous thrombosis or pulmonary prevention of systemic emboli sm in patients wit h valvular heart disease, atrial fibrillation, tissue heart va lve, or acute myocar dial infarction. 2.0 - 3 .0 3. Mechanical prosthesis hear t valves, recurrent syste eric embolism. 3.0 - 4.5 Comments to Medical Biller: WITH AM LABSCBC W/AUTO [id number] 06:07:00 Test Item Value Reference Range Interpretation Comments WHITE BLOOD CELL (test code = 24.0 K/MM3 3.8-9.8 H WBC) RED BLOOD CELL (test code = 2.47 M/MM3 3.58-4.97 L RBC) HEMOGLOBIN (test code = HGB) 7.2 G/DL 11.2-14.9 L HEMATOCRIT (test code = HCT) 25.0 % 33.2-43.5 L MEAN CELL VOLUME (test code = 101 fL 80.7-99.1 H MCV) MEAN CELL HGB (test code = MCH) 29.1 pg 27.0-34.1 N MEAN CELL HGB CONCETRATION 28.8 % 32.2-35.7 L (test code = MCHC) RED CELL DISTRIBUTION WIDTH 16.0 % 12.1-15.2 H (test code = RDW) PLATELET COUNT (test code = 380 K/MM3 129-368 H PLT) MEAN PLATELET VOLUME (test code 10.0 fl 7.4-10.4 N = MPV) NEUTROPHIL % (test code = NT%) 84.2 % 43-75 H IMMATURE GRANULOCYTE % (test 3.2 % 0.0-2.0 H code = IG%) LYMPHOCYTE % (test code = LY%) 4.5 % 14-44 L MONOCYTE % (test code = MO%) 7.6 % 4-13 N EOSINOPHIL % (test code = EO%) 0.2 % 0-6 N BASOPHIL % (test code = BA%) 0.3 % 0-2 N NUCLEATED RBC % (test code = 0.0 % 0-1.0 N NRBC%) NEUTROPHIL # (test code = NT#) 20.18 K/mm3 2.0-7.6 H IMMATURE GRANULOCYTE # (test 0.77 x10 3/uL 0-0.03 H code = IG#) LYMPHOCYTE # (test code = LY#) 1.09 K/mm3 1.0-3.8 N MONOCYTE # (test code = MO#) 1.83 K/mm3 0.1-0.8 H EOSINOPHIL # (test code = EO#) 0.04 K/mm3 0.0-0.2 N BASOPHIL # (test code = BA#) 0.08 K/mm3 0.0-0.2 N NUCLEATED RBC # (test code = 0.00 K/mm3 0.0-0.1 N NRBC#) DIFFERENTIAL [id number] 06:07:00 Test Item Value Reference Range Interpretation Comments RBC MORPHOLOGY REQUIRED (test code = RBCM) PLATELET ESTIMATE (test code = PLTEST) ADEQUATE PLATELET MORPHOLOGY (test code = NORMAL PLTMORPH) CBC W/AUTO [id number] 06:07:00 Test Item Value Reference Range Interpretation Comments WHITE BLOOD CELL (test code = 24.0 K/MM3 3.8-9.8 H WBC) RED BLOOD CELL (test code = 2.47 M/MM3 3.58-4.97 L RBC) HEMOGLOBIN (test code = HGB) 7.2 G/DL 11.2-14.9 L HEMATOCRIT (test code = HCT) 25.0 % 33.2-43.5 L MEAN CELL VOLUME (test code = 101 fL 80.7-99.1 H MCV) MEAN CELL HGB (test code = MCH) 29.1 pg 27.0-34.1 N MEAN CELL HGB CONCETRATION 28.8 % 32.2-35.7 L (test code = MCHC) RED CELL DISTRIBUTION WIDTH 16.0 % 12.1-15.2 H (test code = RDW) PLATELET COUNT (test code = 380 K/MM3 129-368 H PLT) MEAN PLATELET VOLUME (test code 10.0 fl 7.4-10.4 N = MPV) NEUTROPHIL % (test code = NT%) 84.2 % 43-75 H IMMATURE GRANULOCYTE % (test 3.2 % 0.0-2.0 H code = IG%) LYMPHOCYTE % (test code = LY%) 4.5 % 14-44 L MONOCYTE % (test code = MO%) 7.6 % 4-13 N EOSINOPHIL % (test code = EO%) 0.2 % 0-6 N BASOPHIL % (test code = BA%) 0.3 % 0-2 N NUCLEATED RBC % (test code = 0.0 % 0-1.0 N NRBC%) NEUTROPHIL # (test code = NT#) 20.18 K/mm3 2.0-7.6 H IMMATURE GRANULOCYTE # (test 0.77 x10 3/uL 0-0.03 H code = IG#) LYMPHOCYTE # (test code = LY#) 1.09 K/mm3 1.0-3.8 N MONOCYTE # (test code = MO#) 1.83 K/mm3 0.1-0.8 H EOSINOPHIL # (test code = EO#) 0.04 K/mm3 0.0-0.2 N BASOPHIL # (test code = BA#) 0.08 K/mm3 0.0-0.2 N NUCLEATED RBC # (test code = 0.00 K/mm3 0.0-0.1 N NRBC#) DIFFERENTIAL [id number] 06:07:00 Test Item Value Reference Range Interpretation Comments RBC MORPHOLOGY REQUIRED (test code = RBCM) PLATELET ESTIMATE (test code = PLTEST) ADEQUATE PLATELET MORPHOLOGY (test code = NORMAL PLTMORPH) - XR ABDOMEN 1 [id number] 11:55:00 [facility] : 1940 Sex: F Patient Name: JORGE A HORTA Unit No: [id number] EXAMS: CPT CODE: [id number] XR ABDOMEN 1 V [id number] EXAMINATION: - XR ABDOMEN 1 V. LOCATION: B2.HISTORY: abdominal pain, vomiting. COMPARISON: CT abdomen and pelvis dated 12/04/2019. TECHNIQUE: Single AP view of the abdomen was obtained. FINDINGS: Multiple mildly dilated loops of small bowel are present. No abnormal calcifications are identified. No acute osseous abnormality is seen. IMPRESSION: Multiple mildly dilated loops of small bowel, which may be secondary to small bowel obstruction or ileus. Continued follow-up is recommended at 1155 Reported and signed by: Jairo Cohen MD CC: Gail Thomas MD; Ramu Sutherland MD; Rashid Son MD Technologist: Cheyanne Hernández BSRS, RT(R) Transcrpt Date/Tm/Trnsp: 12/12/2019 ([id number]) [email or web address] Orig Print D/T: S: (0132) [facility] NAME: JORGE A HORTA [id number] [address] PHYS: [id number] Gail Salazar MD [address] [place] [address] : 1940 AGE: 79 SEX: F LOC: [id number].[id number] PHONE #: [phone] EXAM DATE: 12/12/2019 STATUS: ADM IN FAX #: [phone] RADIOLOGY NO: PAGE 1 Signed Report PROTHROMBIN [id number] 09:42:00 Test Item Value Reference Range Interpretation Comments PROTHROMBIN TIME 16.7 SECONDS 9.4-12.5 H PATIENT (test code = PTP) INTERNATIONAL NORMAL 1.5 The INR is to be RATIO (test code = used only for INR) monitoring oral anticoagulantth erap y. INDICATION I NR VALUE ---- ---- ---- -------1. Prophylaxis, de ep venous thrombos is, including hig h risk surgery. 2.0 - 3.0 2. Prophylaxis, de ep venous thrombos is, hip surgery, treatment for d eep venous thrombosis or pulmonary prevention of systemic emboli sm in patients wit h valvular heart disease, atrial fibrillation, tissue heart va lve, or acute myocar dial infarction. 2.0 - 3 .0 3. Mechanical prosthesis hear t valves, recurrent syste eric embolism. 3.0 - 4.5 Comments to Medical Biller: WITH AM LABS do at 0700CBC W/AUTO [id number] 09:36:00 Test Item Value Reference Range Interpretation Comments WHITE BLOOD CELL (test code = 22.9 K/MM3 3.8-9.8 H WBC) RED BLOOD CELL (test code = 2.93 M/MM3 3.58-4.97 L RBC) HEMOGLOBIN (test code = HGB) 8.7 G/DL 11.2-14.9 L HEMATOCRIT (test code = HCT) 29.2 % 33.2-43.5 L MEAN CELL VOLUME (test code = 100 fL 80.7-99.1 H MCV) MEAN CELL HGB (test code = MCH) 29.7 pg 27.0-34.1 N MEAN CELL HGB CONCETRATION 29.8 % 32.2-35.7 L (test code = MCHC) RED CELL DISTRIBUTION WIDTH 16.0 % 12.1-15.2 H (test code = RDW) PLATELET COUNT (test code = 449 K/MM3 129-368 H PLT) MEAN PLATELET VOLUME (test code 9.9 fl 7.4-10.4 N = MPV) NEUTROPHIL % (test code = NT%) 85.8 % 43-75 H IMMATURE GRANULOCYTE % (test 3.1 % 0.0-2.0 H code = IG%) LYMPHOCYTE % (test code = LY%) 4.0 % 14-44 L MONOCYTE % (test code = MO%) 6.7 % 4-13 N EOSINOPHIL % (test code = EO%) 0.1 % 0-6 N BASOPHIL % (test code = BA%) 0.3 % 0-2 N NUCLEATED RBC % (test code = 0.0 % 0-1.0 N NRBC%) NEUTROPHIL # (test code = NT#) 19.66 K/mm3 2.0-7.6 H IMMATURE GRANULOCYTE # (test 0.71 x10 3/uL 0-0.03 H code = IG#) LYMPHOCYTE # (test code = LY#) 0.91 K/mm3 1.0-3.8 L MONOCYTE # (test code = MO#) 1.54 K/mm3 0.1-0.8 H EOSINOPHIL # (test code = EO#) 0.03 K/mm3 0.0-0.2 N BASOPHIL # (test code = BA#) 0.08 K/mm3 0.0-0.2 N NUCLEATED RBC # (test code = 0.00 K/mm3 0.0-0.1 N NRBC#) do at 0[address]BASI METABOLIC [id number] 05:56:00 Test Item Value Reference Range Interpretation Comments SODIUM (test code = 139 MMOL/L 137-145 N NA) POTASSIUM (test code = 3.9 MMOL/L 3.5-5.1 N K) CHLORIDE (test code = 113 MMOL/L 98-107 H CL) CARBON DIOXIDE (test 17 MMOL/L 22-30 L code = CO2) GLUCOSE (test code = 93 MG/DL 74-106 N GLU) BLOOD UREA NITROGEN 34 MG/DL 7-17 H (test code = BUN) GLOMERULAR FILTRATION 53 Report ing units: RATE (test code = GFR) ml/mi n/1.73 m2 (Modified MDRD Formula)Referen ce Range: > or = 6 0 ml/min/1.73 m2 CREATININE (test code 1.00 MG/DL 0.52-1.04 N = CREAT) CALCIUM (test code = 8.0 MG/DL 8.4-10.2 L CA) BASIC METABOLIC [id number] 05:55:00 Test Item Value Reference Range Interpretation Comments SODIUM (test code = 139 MMOL/L 137-145 N NA) POTASSIUM (test code = 3.9 MMOL/L 3.5-5.1 N K) CHLORIDE (test code = 113 MMOL/L 98-107 H CL) CARBON DIOXIDE (test MMOL/L 22-30 code = CO2) GLUCOSE (test code = MG/DL 74-106 GLU) BLOOD UREA NITROGEN MG/DL 7-17 (test code = BUN) GLOMERULAR FILTRATION 53 Report ing units: RATE (test code = GFR) ml/mi n/1.73 m2 (Modified MDRD Formula)Referen ce Range: > or = 6 0 ml/min/1.73 m2 CREATININE (test code 1.00 MG/DL 0.52-1.04 N = CREAT) CALCIUM (test code = MG/DL 8.7-9.7 CA) BASIC METABOLIC [id number] 05:53:00 Test Item Value Reference Range Interpretation Comments SODIUM (test code = NA) 139 MMOL/L 137-145 N POTASSIUM (test code = K) 3.9 MMOL/L 3.5-5.1 N CHLORIDE (test code = CL) 113 MMOL/L 98-107 H CARBON DIOXIDE (test code = CO2) MMOL/L 22-30 GLUCOSE (test code = GLU) MG/DL 74-106 BLOOD UREA NITROGEN (test code = MG/DL 7-17 BUN) GLOMERULAR FILTRATION RATE (test code = GFR) CREATININE (test code = CREAT) MG/DL 0.52-1.04 CALCIUM (test code = CA) MG/DL 8.7-9.7 PROTHROMBIN [id number] 05:23:00 Test Item Value Reference Range Interpretation Comments PROTHROMBIN TIME 16.3 SECONDS 9.4-12.5 H PATIENT (test code = PTP) INTERNATIONAL NORMAL 1.5 The INR is to be RATIO (test code = used only for INR) monitoring oral anticoagulantth erap y. INDICATION I NR VALUE ---- ---- ---- -------1. Prophylaxis, de ep venous thrombos is, including hig h risk surgery. 2.0 - 3.0 2. Prophylaxis, de ep venous thrombos is, hip surgery, treatment for d eep venous thrombosis or pulmonary prevention of systemic emboli sm in patients wit h valvular heart disease, atrial fibrillation, tissue heart va lve, or acute myocar dial infarction. 2.0 - 3 .0 3. Mechanical prosthesis hear t valves, recurrent syste eric embolism. 3.0 - 4.5 Comments to Medical Biller: .CBC W/AUTO [id number] 05:15:00 Test Item Value Reference Range Interpretation Comments WHITE BLOOD CELL (test code = 18.4 K/MM3 3.8-9.8 H WBC) RED BLOOD CELL (test code = 2.82 M/MM3 3.58-4.97 L RBC) HEMOGLOBIN (test code = HGB) 8.3 G/DL 11.2-14.9 L HEMATOCRIT (test code = HCT) 27.8 % 33.2-43.5 L MEAN CELL VOLUME (test code = 99 fL 80.7-99.1 N MCV) MEAN CELL HGB (test code = MCH) 29.4 pg 27.0-34.1 N MEAN CELL HGB CONCETRATION 29.9 % 32.2-35.7 L (test code = MCHC) RED CELL DISTRIBUTION WIDTH 15.9 % 12.1-15.2 H (test code = RDW) PLATELET COUNT (test code = 392 K/MM3 129-368 H PLT) MEAN PLATELET VOLUME (test code 10.1 fl 7.4-10.4 N = MPV) NEUTROPHIL % (test code = NT%) 82.3 % 43-75 H IMMATURE GRANULOCYTE % (test 2.1 % 0.0-2.0 H code = IG%) LYMPHOCYTE % (test code = LY%) 5.7 % 14-44 L MONOCYTE % (test code = MO%) 9.2 % 4-13 N EOSINOPHIL % (test code = EO%) 0.3 % 0-6 N BASOPHIL % (test code = BA%) 0.4 % 0-2 N NUCLEATED RBC % (test code = 0.0 % 0-1.0 N NRBC%) NEUTROPHIL # (test code = NT#) 15.11 K/mm3 2.0-7.6 H IMMATURE GRANULOCYTE # (test 0.38 x10 3/uL 0-0.03 H code = IG#) LYMPHOCYTE # (test code = LY#) 1.05 K/mm3 1.0-3.8 N MONOCYTE # (test code = MO#) 1.68 K/mm3 0.1-0.8 H EOSINOPHIL # (test code = EO#) 0.06 K/mm3 0.0-0.2 N BASOPHIL # (test code = BA#) 0.08 K/mm3 0.0-0.2 N NUCLEATED RBC # (test code = 0.00 K/mm3 0.0-0.1 N NRBC#) BASIC METABOLIC [id number] 11:19:00 Test Item Value Reference Range Interpretation Comments SODIUM (test code = 141 MMOL/L 137-145 N NA) POTASSIUM (test code = 3.3 MMOL/L 3.5-5.1 L K) CHLORIDE (test code = 113 MMOL/L 98-107 H CL) CARBON DIOXIDE (test 18 MMOL/L 22-30 L code = CO2) GLUCOSE (test code = 106 MG/DL 74-106 N GLU) BLOOD UREA NITROGEN 37 MG/DL 7-17 H (test code = BUN) GLOMERULAR FILTRATION 48 Report ing units: RATE (test code = GFR) ml/mi n/1.73 m2 (Modified MDRD Formula)Referen ce Range: > or = 6 0 ml/min/1.73 m2 CREATININE (test code 1.10 MG/DL 0.52-1.04 H = CREAT) CALCIUM (test code = 7.6 MG/DL 8.4-10.2 L CA) BASIC METABOLIC [id number] 11:18:00 Test Item Value Reference Range Interpretation Comments SODIUM (test code = 141 MMOL/L 137-145 N NA) POTASSIUM (test code = 3.3 MMOL/L 3.5-5.1 L K) CHLORIDE (test code = 113 MMOL/L 98-107 H CL) CARBON DIOXIDE (test 18 MMOL/L 22-30 L code = CO2) GLUCOSE (test code = 106 MG/DL 74-106 N GLU) BLOOD UREA NITROGEN 37 MG/DL 7-17 H (test code = BUN) GLOMERULAR FILTRATION 48 Report ing units: RATE (test code = GFR) ml/mi n/1.73 m2 (Modified MDRD Formula)Referen ce Range: > or = 6 0 ml/min/1.73 m2 CREATININE (test code 1.10 MG/DL 0.52-1.04 H = CREAT) CALCIUM (test code = MG/DL 8.7-9.7 CA) BASIC METABOLIC [id number] 11:15:00 Test Item Value Reference Range Interpretation Comments SODIUM (test code = NA) 141 MMOL/L 137-145 N POTASSIUM (test code = K) 3.3 MMOL/L 3.5-5.1 L CHLORIDE (test code = CL) 113 MMOL/L 98-107 H CARBON DIOXIDE (test code = CO2) MMOL/L 22-30 GLUCOSE (test code = GLU) MG/DL 74-106 BLOOD UREA NITROGEN (test code = MG/DL 7-17 BUN) GLOMERULAR FILTRATION RATE (test code = GFR) CREATININE (test code = CREAT) MG/DL 0.52-1.04 CALCIUM (test code = CA) MG/DL 8.7-9.7 CBC W/AUTO [id number] 11:05:00 Test Item Value Reference Range Interpretation Comments WHITE BLOOD CELL (test code = 20.1 K/MM3 3.8-9.8 H WBC) RED BLOOD CELL (test code = 2.87 M/MM3 3.58-4.97 L RBC) HEMOGLOBIN (test code = HGB) 8.6 G/DL 11.2-14.9 L HEMATOCRIT (test code = HCT) 29.1 % 33.2-43.5 L MEAN CELL VOLUME (test code = 101 fL 80.7-99.1 H MCV) MEAN CELL HGB (test code = MCH) 30.0 pg 27.0-34.1 N MEAN CELL HGB CONCETRATION 29.6 % 32.2-35.7 L (test code = MCHC) RED CELL DISTRIBUTION WIDTH 16.0 % 12.1-15.2 H (test code = RDW) PLATELET COUNT (test code = 402 K/MM3 129-368 H PLT) MEAN PLATELET VOLUME (test code 10.0 fl 7.4-10.4 N = MPV) NEUTROPHIL % (test code = NT%) 83.5 % 43-75 H IMMATURE GRANULOCYTE % (test 1.5 % 0.0-2.0 N code = IG%) LYMPHOCYTE % (test code = LY%) 5.6 % 14-44 L MONOCYTE % (test code = MO%) 8.6 % 4-13 N EOSINOPHIL % (test code = EO%) 0.4 % 0-6 N BASOPHIL % (test code = BA%) 0.4 % 0-2 N NUCLEATED RBC % (test code = 0.0 % 0-1.0 N NRBC%) NEUTROPHIL # (test code = NT#) 16.73 K/mm3 2.0-7.6 H IMMATURE GRANULOCYTE # (test 0.31 x10 3/uL 0-0.03 H code = IG#) LYMPHOCYTE # (test code = LY#) 1.13 K/mm3 1.0-3.8 N MONOCYTE # (test code = MO#) 1.72 K/mm3 0.1-0.8 H EOSINOPHIL # (test code = EO#) 0.09 K/mm3 0.0-0.2 N BASOPHIL # (test code = BA#) 0.08 K/mm3 0.0-0.2 N NUCLEATED RBC # (test code = 0.00 K/mm3 0.0-0.1 N NRBC#) PROTHROMBIN [id number] 04:49:00 Test Item Value Reference Range Interpretation Comments PROTHROMBIN TIME 17.8 SECONDS 9.4-12.5 H PATIENT (test code = PTP) INTERNATIONAL NORMAL 1.6 The INR is to be RATIO (test code = used only for INR) monitoring oral anticoagulantth erap y. INDICATION I NR VALUE ---- ---- ---- -------1. Prophylaxis, de ep venous thrombos is, including hig h risk surgery. 2.0 - 3.0 2. Prophylaxis, de ep venous thrombos is, hip surgery, treatment for d eep venous thrombosis or pulmonary prevention of systemic emboli sm in patients wit h valvular heart disease, atrial fibrillation, tissue heart va lve, or acute myocar dial infarction. 2.0 - 3 .0 3. Mechanical prosthesis hear t valves, recurrent syste eric embolism. 3.0 - 4.5 Comments to Medical Biller: .URINALYSIS [id number] 17:50:00 Test Item Value Reference Range Interpretation Comments UA COLOR (test code = YELLOW YELLOW COLU) UA APPEARANCE (test code very cloudy CLEAR = APPU) UA GLUCOSE DIPSTICK (test NORMAL MG/DL NORMAL code = DGLUU) UA BILIRUBIN DIPSTICK NEGATIVE MG/DL NEGATIVE (test code = BILU) UA KETONE DIPSTICK (test 5 MG/DL NEGATIVE code = KETU) UA SPECIFIC GRAVITY (test 1.015 1.003-1.030 N code = SGU) UA BLOOD DIPSTICK (test 10 Kai/mm3 NEGATIVE A code = AMPARO) UA PH DIPSTICK (test code 5.0 5.0-9.0 N = AJ) UA PROTEIN DIPSTICK (test 30 MG/DL NEGATIVE A code = PROU) UA UROBILINIOGEN DIPSTICK 1 MG/DL NORMAL A (test code = URO) UA NITRITE DIPSTICK (test NEGATIVE NEGATIVE code = GAIL) UA LEUKOCYTE ESTERASE TRACE /mm3 NEGATIVE A DIPSTICK (test code = LEUU) UA CULTURE NEEDED? (test NO, WBC<10 Criteria Culture Chk code = UACULT) SOURCE OF URINE: VOIDEDUA [id number] 17:50:00 Test Item Value Reference Range Interpretation Comments UA RBC (test code = RBCU) 0-3 RBC/HPF 0-3 UA WBC (test code = XWBCU) 3-5 WBC/HPF 0-5 UA EPITHELIAL CELLS (test code FEW EPI/HPF FEW = EPIU) UA BACTERIA (test code = MODERATE NONE A XBACU) UA YEAST (test code = YEASTU) MODERATE #/HPF NONE A SOURCE OF URINE: VOIDEDURINALYSIS [id number] 17:35:00 Test Item Value Reference Range Interpretation Comments UA COLOR (test code = COLU) YELLOW YELLOW UA APPEARANCE (test code = very cloudy CLEAR APPU) UA GLUCOSE DIPSTICK (test code NORMAL MG/DL NORMAL = DGLUU) UA BILIRUBIN DIPSTICK (test NEGATIVE MG/DL NEGATIVE code = BILU) UA KETONE DIPSTICK (test code 5 MG/DL NEGATIVE = KETU) UA SPECIFIC GRAVITY (test code 1.015 1.003-1.030 N = SGU) UA BLOOD DIPSTICK (test code = 10 Kai/mm3 NEGATIVE A AMPARO) UA PH DIPSTICK (test code = 5.0 5.0-9.0 N AJ) UA PROTEIN DIPSTICK (test code 30 MG/DL NEGATIVE A = PROU) UA UROBILINIOGEN DIPSTICK 1 MG/DL NORMAL A (test code = URO) UA NITRITE DIPSTICK (test code NEGATIVE NEGATIVE = GAIL) UA LEUKOCYTE ESTERASE DIPSTICK TRACE /mm3 NEGATIVE A (test code = LEUU) UA CULTURE NEEDED? (test code Criteria Culture Chk = UACULT) SOURCE OF URINE: VOIDEDUA [id number] 17:35:00 Test Item Value Reference Range Interpretation Comments UA RBC (test code = RBCU) RBC/HPF 0-3 UA WBC (test code = XWBCU) WBC/HPF 0-5 UA EPITHELIAL CELLS (test code = EPI/HPF FEW EPIU) UA BACTERIA (test code = XBACU) NONE SOURCE OF URINE: VOIDEDURINALYSIS [id number] 17:35:00 Test Item Value Reference Range Interpretation Comments UA COLOR (test code = COLU) YELLOW YELLOW UA APPEARANCE (test code = very cloudy CLEAR APPU) UA GLUCOSE DIPSTICK (test code NORMAL MG/DL NORMAL = DGLUU) UA BILIRUBIN DIPSTICK (test NEGATIVE MG/DL NEGATIVE code = BILU) UA KETONE DIPSTICK (test code 5 MG/DL NEGATIVE = KETU) UA SPECIFIC GRAVITY (test code 1.015 1.003-1.030 N = SGU) UA BLOOD DIPSTICK (test code = 10 Kai/mm3 NEGATIVE A AMPARO) UA PH DIPSTICK (test code = 5.0 5.0-9.0 N AJ) UA PROTEIN DIPSTICK (test code 30 MG/DL NEGATIVE A = PROU) UA UROBILINIOGEN DIPSTICK 1 MG/DL NORMAL A (test code = URO) UA NITRITE DIPSTICK (test code NEGATIVE NEGATIVE = GAIL) UA LEUKOCYTE ESTERASE DIPSTICK TRACE /mm3 NEGATIVE A (test code = LEUU) UA CULTURE NEEDED? (test code Criteria Culture Chk = UACULT) SOURCE OF URINE: VOIDEDUA [id number] 17:35:00 Test Item Value Reference Range Interpretation Comments UA RBC (test code = RBCU) RBC/HPF 0-3 UA WBC (test code = XWBCU) WBC/HPF 0-5 UA EPITHELIAL CELLS (test code = EPI/HPF FEW EPIU) UA BACTERIA (test code = XBACU) NONE SOURCE OF URINE: VOIDEDCBC W/AUTO [id number] 05:51:00 Test Item Value Reference Range Interpretation Comments WHITE BLOOD CELL (test code = 21.6 K/MM3 3.8-9.8 H WBC) RED BLOOD CELL (test code = 2.68 M/MM3 3.58-4.97 L RBC) HEMOGLOBIN (test code = HGB) 8.0 G/DL 11.2-14.9 L HEMATOCRIT (test code = HCT) 25.7 % 33.2-43.5 L MEAN CELL VOLUME (test code = 96 fL 80.7-99.1 N MCV) MEAN CELL HGB (test code = MCH) 29.9 pg 27.0-34.1 N MEAN CELL HGB CONCETRATION 31.1 % 32.2-35.7 L (test code = MCHC) RED CELL DISTRIBUTION WIDTH 15.8 % 12.1-15.2 H (test code = RDW) PLATELET COUNT (test code = 351 K/MM3 129-368 N PLT) MEAN PLATELET VOLUME (test code 10.0 fl 7.4-10.4 N = MPV) NEUTROPHIL % (test code = NT%) 85.7 % 43-75 H IMMATURE GRANULOCYTE % (test 1.9 % 0.0-2.0 N code = IG%) LYMPHOCYTE % (test code = LY%) 4.2 % 14-44 L MONOCYTE % (test code = MO%) 7.5 % 4-13 N EOSINOPHIL % (test code = EO%) 0.3 % 0-6 N BASOPHIL % (test code = BA%) 0.4 % 0-2 N NUCLEATED RBC % (test code = 0.1 % 0-1.0 N NRBC%) NEUTROPHIL # (test code = NT#) 18.51 K/mm3 2.0-7.6 H IMMATURE GRANULOCYTE # (test 0.42 x10 3/uL 0-0.03 H code = IG#) LYMPHOCYTE # (test code = LY#) 0.91 K/mm3 1.0-3.8 L MONOCYTE # (test code = MO#) 1.61 K/mm3 0.1-0.8 H EOSINOPHIL # (test code = EO#) 0.06 K/mm3 0.0-0.2 N BASOPHIL # (test code = BA#) 0.09 K/mm3 0.0-0.2 N NUCLEATED RBC # (test code = 0.03 K/mm3 0.0-0.1 N NRBC#) NUCLEATED RED BLOOD CELL (test 1 0-0 H code = NRBC) BASIC METABOLIC [id number] 05:30:00 Test Item Value Reference Range Interpretation Comments SODIUM (test code = 142 MMOL/L 137-145 N NA) POTASSIUM (test code = 3.4 MMOL/L 3.5-5.1 L K) CHLORIDE (test code = 111 MMOL/L 98-107 H CL) CARBON DIOXIDE (test 22 MMOL/L 22-30 N code = CO2) ANION GAP (test code = 12 MMOL/L 14-24 L GAP) GLUCOSE (test code = 148 MG/DL 74-106 H GLU) BLOOD UREA NITROGEN 42 MG/DL 7-17 H (test code = BUN) GLOMERULAR FILTRATION 43 Report ing units: RATE (test code = GFR) ml/mi n/1.73 m2 (Modified MDRD Formula)Referen ce Range: > or = 6 0 ml/min/1.73 m2 CREATININE (test code 1.20 MG/DL 0.52-1.04 H = CREAT) CALCIUM (test code = 7.6 MG/DL 8.4-10.2 L CA) [id number] 05:30:00 Test Item Value Reference Range Interpretation Comments MAGNESIUM (test code = MAG) 2.3 MG/DL 1.6-2.3 N BASIC METABOLIC [id number] 05:24:00 Test Item Value Reference Range Interpretation Comments SODIUM (test code = 142 MMOL/L 137-145 N NA) POTASSIUM (test code = 3.4 MMOL/L 3.5-5.1 L K) CHLORIDE (test code = 111 MMOL/L 98-107 H CL) CARBON DIOXIDE (test MMOL/L 22-30 code = CO2) GLUCOSE (test code = MG/DL 74-106 GLU) BLOOD UREA NITROGEN MG/DL 7-17 (test code = BUN) GLOMERULAR FILTRATION 43 Report ing units: RATE (test code = GFR) ml/mi n/1.73 m2 (Modified MDRD Formula)Referen ce Range: > or = 6 0 ml/min/1.73 m2 CREATININE (test code 1.20 MG/DL 0.52-1.04 H = CREAT) CALCIUM (test code = MG/DL 8.7-9.7 CA) [id number] 05:24:00 Test Item Value Reference Range Interpretation Comments MAGNESIUM (test code = MAG) MG/DL 1.6-2.3 BASIC METABOLIC [id number] 05:22:00 Test Item Value Reference Range Interpretation Comments SODIUM (test code = NA) 142 MMOL/L 137-145 N POTASSIUM (test code = K) 3.4 MMOL/L 3.5-5.1 L CHLORIDE (test code = CL) 111 MMOL/L 98-107 H CARBON DIOXIDE (test code = CO2) MMOL/L 22-30 GLUCOSE (test code = GLU) MG/DL 74-106 BLOOD UREA NITROGEN (test code = MG/DL 7-17 BUN) GLOMERULAR FILTRATION RATE (test code = GFR) CREATININE (test code = CREAT) MG/DL 0.52-1.04 CALCIUM (test code = CA) MG/DL 8.7-9.7 [id number] 05:22:00 Test Item Value Reference Range Interpretation Comments MAGNESIUM (test code = MAG) MG/DL 1.6-2.3 BASIC METABOLIC [id number] 05:21:00 Test Item Value Reference Range Interpretation Comments SODIUM (test code = NA) MMOL/L 137-145 POTASSIUM (test code = K) MMOL/L 3.5-5.1 CHLORIDE (test code = CL) 111 MMOL/L 98-107 H CARBON DIOXIDE (test code = CO2) MMOL/L 22-30 GLUCOSE (test code = GLU) MG/DL 74-106 BLOOD UREA NITROGEN (test code = MG/DL 7-17 BUN) GLOMERULAR FILTRATION RATE (test code = GFR) CREATININE (test code = CREAT) MG/DL 0.52-1.04 CALCIUM (test code = CA) MG/DL 8.7-9.7 [id number] 05:21:00 Test Item Value Reference Range Interpretation Comments MAGNESIUM (test code = MAG) MG/DL 1.6-2.3 PROTHROMBIN [id number] 05:19:00 Test Item Value Reference Range Interpretation Comments PROTHROMBIN TIME 18.5 SECONDS 9.4-12.5 H PATIENT (test code = PTP) INTERNATIONAL NORMAL 1.7 The INR is to be RATIO (test code = used only for INR) monitoring oral anticoagulantth erap y. INDICATION I NR VALUE ---- ---- ---- -------1. Prophylaxis, de ep venous thrombos is, including hig h risk surgery. 2.0 - 3.0 2. Prophylaxis, de ep venous thrombos is, hip surgery, treatment for d eep venous thrombosis or pulmonary prevention of systemic emboli sm in patients wit h valvular heart disease, atrial fibrillation, tissue heart va lve, or acute myocar dial infarction. 2.0 - 3 .0 3. Mechanical prosthesis hear t valves, recurrent syste eric embolism. 3.0 - 4.5 Comments to Medical Biller: .CBC W/AUTO [id number] 05:10:00 Test Item Value Reference Range Interpretation Comments WHITE BLOOD CELL (test code = 21.6 K/MM3 3.8-9.8 H WBC) RED BLOOD CELL (test code = 2.68 M/MM3 3.58-4.97 L RBC) HEMOGLOBIN (test code = HGB) 8.0 G/DL 11.2-14.9 L HEMATOCRIT (test code = HCT) 25.7 % 33.2-43.5 L MEAN CELL VOLUME (test code = 96 fL 80.7-99.1 N MCV) MEAN CELL HGB (test code = MCH) 29.9 pg 27.0-34.1 N MEAN CELL HGB CONCETRATION 31.1 % 32.2-35.7 L (test code = MCHC) RED CELL DISTRIBUTION WIDTH 15.8 % 12.1-15.2 H (test code = RDW) PLATELET COUNT (test code = 351 K/MM3 129-368 N PLT) MEAN PLATELET VOLUME (test code 10.0 fl 7.4-10.4 N = MPV) NEUTROPHIL % (test code = NT%) 85.7 % 43-75 H IMMATURE GRANULOCYTE % (test 1.9 % 0.0-2.0 N code = IG%) LYMPHOCYTE % (test code = LY%) 4.2 % 14-44 L MONOCYTE % (test code = MO%) 7.5 % 4-13 N EOSINOPHIL % (test code = EO%) 0.3 % 0-6 N BASOPHIL % (test code = BA%) 0.4 % 0-2 N NUCLEATED RBC % (test code = 0.1 % 0-1.0 N NRBC%) NEUTROPHIL # (test code = NT#) 18.51 K/mm3 2.0-7.6 H IMMATURE GRANULOCYTE # (test 0.42 x10 3/uL 0-0.03 H code = IG#) LYMPHOCYTE # (test code = LY#) 0.91 K/mm3 1.0-3.8 L MONOCYTE # (test code = MO#) 1.61 K/mm3 0.1-0.8 H EOSINOPHIL # (test code = EO#) 0.06 K/mm3 0.0-0.2 N BASOPHIL # (test code = BA#) 0.09 K/mm3 0.0-0.2 N NUCLEATED RBC # (test code = 0.03 K/mm3 0.0-0.1 N NRBC#) - XR CHEST [id number] 14:16:00 [facility] : 1940 Sex: F Patient Name: JORGE A HORTA Unit No: [id number] EXAMS: CPT CODE: [id number] XR CHEST 1V [id number] CHEST 1 VIEW CLINICAL INFORMATION: atelectasis COMPARISON: Chest radiograph dated December 04, 2019 FINDINGS: The cardiac silhouette is mildly enlarged. 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 Heavy mitral annular calcifications are visible. The lungs are slightly underexpanded. No airspace consolidation is seen. No pneumothorax or pleural effusion is present. A nasogastric terminates in the stomach. IMPRESSION: 1. Stable enlargement of the cardiac silhouette. 2. No acute alveolar consolidation is identified. LOCATION: B2 at 1416 Reported and signed by: Ike Santillan M.D. CC: Ramu Sutherland MD; Raji Jordan MD; Rashid Son MD Technologist: Domi Cunningham RT(R) Transcrpt Date/Tm/Trnsp: 12/08/2019 (1416) [email or web address] Orig Print D/T: S: 12/08/2019 (1420) [facility] NAME: JORGE A HORTA [id number] PHYS: [place] [address] : 1940 AGE: 79 SEX: F LOC: [id number] PHONE #: [phone] EXAM DATE: 12/08/2019 STATUS: ADM IN FAX #: [phone] RADIOLOGY NO: PAGE 1 Signed ReportBASIC METABOLIC [id number] 10:18:00 Test Item Value Reference Range Interpretation Comments SODIUM (test code = 141 MMOL/L 137-145 N NA) POTASSIUM (test code = 3.2 MMOL/L 3.5-5.1 L K) CHLORIDE (test code = 109 MMOL/L 98-107 H CL) CARBON DIOXIDE (test 20 MMOL/L 22-30 L code = CO2) ANION GAP (test code = 15 MMOL/L 14-24 N GAP) GLUCOSE (test code = 175 MG/DL 74-106 H GLU) BLOOD UREA NITROGEN 43 MG/DL 7-17 H (test code = BUN) GLOMERULAR FILTRATION 43 Report ing units: RATE (test code = GFR) ml/mi n/1.73 m2 (Modified MDRD Formula)Referen ce Range: > or = 6 0 ml/min/1.73 m2 CREATININE (test code 1.20 MG/DL 0.52-1.04 H = CREAT) CALCIUM (test code = 7.6 MG/DL 8.4-10.2 L CA) BASIC METABOLIC [id number] 10:11:00 Test Item Value Reference Range Interpretation Comments SODIUM (test code = 141 MMOL/L 137-145 N NA) POTASSIUM (test code = 3.2 MMOL/L 3.5-5.1 L K) CHLORIDE (test code = 109 MMOL/L 98-107 H CL) CARBON DIOXIDE (test MMOL/L 22-30 code = CO2) GLUCOSE (test code = MG/DL 74-106 GLU) BLOOD UREA NITROGEN MG/DL 7-17 (test code = BUN) GLOMERULAR FILTRATION 43 Report ing units: RATE (test code = GFR) ml/mi n/1.73 m2 (Modified MDRD Formula)Referen ce Range: > or = 6 0 ml/min/1.73 m2 CREATININE (test code 1.20 MG/DL 0.52-1.04 H = CREAT) CALCIUM (test code = MG/DL 8.7-9.7 CA) PROTHROMBIN [id number] 09:52:00 Test Item Value Reference Range Interpretation Comments PROTHROMBIN TIME 36.7 SECONDS 9.4-12.5 H PATIENT (test code = PTP) INTERNATIONAL NORMAL 3.3 The INR is to be RATIO (test code = used only for INR) monitoring oral anticoagulantth erap y. INDICATION I NR VALUE ---- ---- ---- -------1. Prophylaxis, de ep venous thrombos is, including hig h risk surgery. 2.0 - 3.0 2. Prophylaxis, de ep venous thrombos is, hip surgery, treatment for d eep venous thrombosis or pulmonary prevention of systemic emboli sm in patients wit h valvular heart disease, atrial fibrillation, tissue heart va lve, or acute myocar dial infarction. 2.0 - 3 .0 3. Mechanical prosthesis hear t valves, recurrent syste eric embolism. 3.0 - 4.5 CBC W/AUTO [id number] 09:42:00 Test Item Value Reference Range Interpretation Comments WHITE BLOOD CELL (test code = 20.9 K/MM3 3.8-9.8 H WBC) RED BLOOD CELL (test code = 2.80 M/MM3 3.58-4.97 L RBC) HEMOGLOBIN (test code = HGB) 8.4 G/DL 11.2-14.9 L HEMATOCRIT (test code = HCT) 27.1 % 33.2-43.5 L MEAN CELL VOLUME (test code = 97 fL 80.7-99.1 N MCV) MEAN CELL HGB (test code = MCH) 30.0 pg 27.0-34.1 N MEAN CELL HGB CONCETRATION 31.0 % 32.2-35.7 L (test code = MCHC) RED CELL DISTRIBUTION WIDTH 15.6 % 12.1-15.2 H (test code = RDW) PLATELET COUNT (test code = 359 K/MM3 129-368 N PLT) MEAN PLATELET VOLUME (test code 10.4 fl 7.4-10.4 N = MPV) NEUTROPHIL % (test code = NT%) 86.9 % 43-75 H IMMATURE GRANULOCYTE % (test 2.0 % 0.0-2.0 N code = IG%) LYMPHOCYTE % (test code = LY%) 3.5 % 14-44 L MONOCYTE % (test code = MO%) 6.5 % 4-13 N EOSINOPHIL % (test code = EO%) 0.5 % 0-6 N BASOPHIL % (test code = BA%) 0.6 % 0-2 N NUCLEATED RBC % (test code = 0.2 % 0-1.0 N NRBC%) NEUTROPHIL # (test code = NT#) 18.16 K/mm3 2.0-7.6 H IMMATURE GRANULOCYTE # (test 0.42 x10 3/uL 0-0.03 H code = IG#) LYMPHOCYTE # (test code = LY#) 0.74 K/mm3 1.0-3.8 L MONOCYTE # (test code = MO#) 1.36 K/mm3 0.1-0.8 H EOSINOPHIL # (test code = EO#) 0.10 K/mm3 0.0-0.2 N BASOPHIL # (test code = BA#) 0.12 K/mm3 0.0-0.2 N NUCLEATED RBC # (test code = 0.05 K/mm3 0.0-0.1 N NRBC#) LACTIC [id number] 11:31:00 Test Item Value Reference Range Interpretation Comments LACTIC ACID (test code = LACT) 1.8 MMOL/L 0.7-2.1 N BASIC METABOLIC [id number] 05:33:00 Test Item Value Reference Range Interpretation Comments SODIUM (test code = 138 MMOL/L 137-145 N NA) POTASSIUM (test code = 3.9 MMOL/L 3.5-5.1 N K) CHLORIDE (test code = 106 MMOL/L 98-107 N CL) CARBON DIOXIDE (test 22 MMOL/L 22-30 N code = CO2) GLUCOSE (test code = 139 MG/DL 74-106 H GLU) BLOOD UREA NITROGEN 44 MG/DL 7-17 H (test code = BUN) GLOMERULAR FILTRATION 39 Report ing units: RATE (test code = GFR) ml/mi n/1.73 m2 (Modified MDRD Formula)Referen ce Range: > or = 6 0 ml/min/1.73 m2 CREATININE (test code 1.30 MG/DL 0.52-1.04 H = CREAT) CALCIUM (test code = 7.7 MG/DL 8.4-10.2 L CA) BASIC METABOLIC [id number] 05:12:00 Test Item Value Reference Range Interpretation Comments SODIUM (test code = 138 MMOL/L 137-145 N NA) POTASSIUM (test code = 3.9 MMOL/L 3.5-5.1 N K) CHLORIDE (test code = 106 MMOL/L 98-107 N CL) CARBON DIOXIDE (test 22 MMOL/L 22-30 N code = CO2) GLUCOSE (test code = MG/DL 74-106 GLU) BLOOD UREA NITROGEN MG/DL 7-17 (test code = BUN) GLOMERULAR FILTRATION 39 Report ing units: RATE (test code = GFR) ml/mi n/1.73 m2 (Modified MDRD Formula)Referen ce Range: > or = 6 0 ml/min/1.73 m2 CREATININE (test code 1.30 MG/DL 0.52-1.04 H = CREAT) CALCIUM (test code = MG/DL 8.7-9.7 CA) BASIC METABOLIC [id number] 05:09:00 Test Item Value Reference Range Interpretation Comments SODIUM (test code = NA) 138 MMOL/L 137-145 N POTASSIUM (test code = K) 3.9 MMOL/L 3.5-5.1 N CHLORIDE (test code = CL) 106 MMOL/L 98-107 N CARBON DIOXIDE (test code = CO2) MMOL/L 22-30 GLUCOSE (test code = GLU) MG/DL 74-106 BLOOD UREA NITROGEN (test code = MG/DL 7-17 BUN) GLOMERULAR FILTRATION RATE (test code = GFR) CREATININE (test code = CREAT) MG/DL 0.52-1.04 CALCIUM (test code = CA) MG/DL 8.7-9.7 PROTHROMBIN [id number] 04:51:00 Test Item Value Reference Range Interpretation Comments PROTHROMBIN TIME 47.9 SECONDS 9.4-12.5 HH CALLED TO Jose jessenia M PATIENT (test code = & READ BACK ON PTP) 12/07/19 AT 044 9 BY James Bean INTERNATIONAL NORMAL 4.3 HH CALLED TO Rosaura RATIO (test code = Matuto & READBACK INR) ON 12/07/19 AT 0449 BY James Bean The INR is to be us ed only for monito ring oral anticoagulantth erap y. INDICATION I NR VALUE ---- ---- ---- -------1. Prophylaxis, de ep venous thrombos is, including hig h risk surgery. 2.0 - 3.0 2. Prophylaxis, de ep venous thrombos is, hip surgery, treatment for d eep venous thrombosis or pulmonary prevention of systemic emboli sm in patients wit h valvular heart disease, atrial fibrillation, tissue heart va lve, or acute myocar dial infarction. 2.0 - 3 .0 3. Mechanical prosthesis hear t valves, recurrent syste eric embolism. 3.0 - 4.5 Comments to Medical Biller: .CBC W/AUTO [id number] 04:36:00 Test Item Value Reference Range Interpretation Comments WHITE BLOOD CELL (test code = 18.2 K/MM3 3.8-9.8 H WBC) RED BLOOD CELL (test code = 2.92 M/MM3 3.58-4.97 L RBC) HEMOGLOBIN (test code = HGB) 8.8 G/DL 11.2-14.9 L HEMATOCRIT (test code = HCT) 28.0 % 33.2-43.5 L MEAN CELL VOLUME (test code = 96 fL 80.7-99.1 N MCV) MEAN CELL HGB (test code = MCH) 30.1 pg 27.0-34.1 N MEAN CELL HGB CONCETRATION 31.4 % 32.2-35.7 L (test code = MCHC) RED CELL DISTRIBUTION WIDTH 15.1 % 12.1-15.2 N (test code = RDW) PLATELET COUNT (test code = 310 K/MM3 129-368 N PLT) MEAN PLATELET VOLUME (test code 10.3 fl 7.4-10.4 N = MPV) NEUTROPHIL % (test code = NT%) 90.4 % 43-75 H IMMATURE GRANULOCYTE % (test 1.2 % 0.0-2.0 N code = IG%) LYMPHOCYTE % (test code = LY%) 3.5 % 14-44 L MONOCYTE % (test code = MO%) 4.4 % 4-13 N EOSINOPHIL % (test code = EO%) 0.4 % 0-6 N BASOPHIL % (test code = BA%) 0.1 % 0-2 N NUCLEATED RBC % (test code = 0.1 % 0-1.0 N NRBC%) NEUTROPHIL # (test code = NT#) 16.48 K/mm3 2.0-7.6 H IMMATURE GRANULOCYTE # (test 0.22 x10 3/uL 0-0.03 H code = IG#) LYMPHOCYTE # (test code = LY#) 0.64 K/mm3 1.0-3.8 L MONOCYTE # (test code = MO#) 0.81 K/mm3 0.1-0.8 H EOSINOPHIL # (test code = EO#) 0.08 K/mm3 0.0-0.2 N BASOPHIL # (test code = BA#) 0.01 K/mm3 0.0-0.2 N NUCLEATED RBC # (test code = 0.02 K/mm3 0.0-0.1 N NRBC#) LACTIC [id number] 11:55:00 Test Item Value Reference Range Interpretation Comments LACTIC ACID (test code = LACT) 1.5 MMOL/L 0.7-2.1 N BASIC METABOLIC [id number] 10:02:00 Test Item Value Reference Range Interpretation Comments SODIUM (test code = 136 MMOL/L 137-145 L NA) POTASSIUM (test code = 4.3 MMOL/L 3.5-5.1 N K) CHLORIDE (test code = 103 MMOL/L 98-107 N CL) CARBON DIOXIDE (test 20 MMOL/L 22-30 L code = CO2) ANION GAP (test code = 17 MMOL/L 14-24 N GAP) GLUCOSE (test code = 162 MG/DL 74-106 H GLU) BLOOD UREA NITROGEN 34 MG/DL 7-17 H (test code = BUN) GLOMERULAR FILTRATION 48 Report ing units: RATE (test code = GFR) ml/mi n/1.73 m2 (Modified MDRD Formula)Referen ce Range: > or = 6 0 ml/min/1.73 m2 CREATININE (test code 1.10 MG/DL 0.52-1.04 H = CREAT) CALCIUM (test code = 7.6 MG/DL 8.4-10.2 L CA) BASIC METABOLIC [id number] 10:01:00 Test Item Value Reference Range Interpretation Comments SODIUM (test code = 136 MMOL/L 137-145 L NA) POTASSIUM (test code = 4.3 MMOL/L 3.5-5.1 N K) CHLORIDE (test code = 103 MMOL/L 98-107 N CL) CARBON DIOXIDE (test MMOL/L 22-30 code = CO2) GLUCOSE (test code = MG/DL 74-106 GLU) BLOOD UREA NITROGEN MG/DL 7-17 (test code = BUN) GLOMERULAR FILTRATION 48 Report ing units: RATE (test code = GFR) ml/mi n/1.73 m2 (Modified MDRD Formula)Referen ce Range: > or = 6 0 ml/min/1.73 m2 CREATININE (test code 1.10 MG/DL 0.52-1.04 H = CREAT) CALCIUM (test code = MG/DL 8.7-9.7 CA) BASIC METABOLIC [id number] 10:00:00 Test Item Value Reference Range Interpretation Comments SODIUM (test code = NA) 136 MMOL/L 137-145 L POTASSIUM (test code = K) 4.3 MMOL/L 3.5-5.1 N CHLORIDE (test code = CL) 103 MMOL/L 98-107 N CARBON DIOXIDE (test code = CO2) MMOL/L 22-30 GLUCOSE (test code = GLU) MG/DL 74-106 BLOOD UREA NITROGEN (test code = MG/DL 7-17 BUN) GLOMERULAR FILTRATION RATE (test code = GFR) CREATININE (test code = CREAT) MG/DL 0.52-1.04 CALCIUM (test code = CA) MG/DL 8.7-9.7 BASIC METABOLIC [id number] 08:40:00 Test Item Value Reference Range Interpretation Comments SODIUM (test code = 132 MMOL/L 137-145 L NA) POTASSIUM (test TEST NOT PERFORMED 3.5-5.1 CALLED TO & code = K) MMOL/L READBACK ON 12/06/19 AT 083 9 Selin Coates CHLORIDE (test code 102 MMOL/L 98-107 N = CL) CARBON DIOXIDE TEST NOT PERFORMED 22-30 (test code = CO2) MMOL/L GLUCOSE (test code TEST NOT PERFORMED 74-106 = GLU) MG/DL BLOOD UREA NITROGEN TEST NOT PERFORMED 7-17 (test code = BUN) MG/DL GLOMERULAR TEST NOT PERFORMED FILTRATION RATE (test code = GFR) CREATININE (test TEST NOT PERFORMED 0.52-1.04 code = CREAT) MG/DL CALCIUM (test code TEST NOT PERFORMED 8.4-10.2 = CA) MG/DL RECOLLECTION NEEDED ON 12/06/19 AT 0732 BY DALJIT: HEMOLYSISNOTIFIED PATIENT CARE STAFF: HELGANICALACTIC [id number] 08:38:00 Test Item Value Reference Range Interpretation Comments LACTIC ACID (test code = LACT) 2.3 MMOL/L 0.7-2.1 H UNABLE TO DRAW BLOOD, REASON: CBNNOTIFIED PATIENT CARE STAFF: EDWARD 12/05/19 AT 2155 BY Kristen Henry RN.BASIC METABOLIC [id number] 08:35:00 Test Item Value Reference Range Interpretation Comments SODIUM (test code = NA) 132 MMOL/L 137-145 L POTASSIUM (test code = K) MMOL/L 3.5-5.1 CHLORIDE (test code = CL) 102 MMOL/L 98-107 N CARBON DIOXIDE (test code = CO2) MMOL/L 22-30 GLUCOSE (test code = GLU) MG/DL 74-106 BLOOD UREA NITROGEN (test code = MG/DL 7-17 BUN) GLOMERULAR FILTRATION RATE (test code = GFR) CREATININE (test code = CREAT) MG/DL 0.52-1.04 CALCIUM (test code = CA) MG/DL 8.7-9.7 RECOLLECTION NEEDED ON 12/06/19 AT 0732 BY DALJIT: HEMOLYSISNOTIFIED PATIENT CARE STAFF: VERONICAPROTHROMBIN [id number] 08:21:00 Test Item Value Reference Range Interpretation Comments PROTHROMBIN TIME 34.0 SECONDS 9.4-12.5 H PATIENT (test code = PTP) INTERNATIONAL NORMAL 3.0 The INR is to be RATIO (test code = used only for INR) monitoring oral anticoagulantth erap y. INDICATION I NR VALUE ---- ---- ---- -------1. Prophylaxis, de ep venous thrombos is, including hig h risk surgery. 2.0 - 3.0 2. Prophylaxis, de ep venous thrombos is, hip surgery, treatment for d eep venous thrombosis or pulmonary prevention of systemic emboli sm in patients wit h valvular heart disease, atrial fibrillation, tissue heart va lve, or acute myocar dial infarction. 2.0 - 3 .0 3. Mechanical prosthesis hear t valves, recurrent syste eric embolism. 3.0 - 4.5 Comments to Medical Biller: .CBC W/AUTO [id number] 06:49:00 Test Item Value Reference Range Interpretation Comments WHITE BLOOD CELL (test code = 8.9 K/MM3 3.8-9.8 N WBC) RED BLOOD CELL (test code = 3.10 M/MM3 3.58-4.97 L RBC) HEMOGLOBIN (test code = HGB) 9.4 G/DL 11.2-14.9 L HEMATOCRIT (test code = HCT) 29.0 % 33.2-43.5 L MEAN CELL VOLUME (test code = 94 fL 80.7-99.1 N MCV) MEAN CELL HGB (test code = MCH) 30.3 pg 27.0-34.1 N MEAN CELL HGB CONCETRATION 32.4 % 32.2-35.7 N (test code = MCHC) RED CELL DISTRIBUTION WIDTH 15.0 % 12.1-15.2 N (test code = RDW) PLATELET COUNT (test code = 296 K/MM3 129-368 N PLT) MEAN PLATELET VOLUME (test code 10.5 fl 7.4-10.4 H = MPV) NEUTROPHIL % (test code = NT%) 88.1 % 43-75 H IMMATURE GRANULOCYTE % (test 0.2 % 0.0-2.0 N code = IG%) LYMPHOCYTE % (test code = LY%) 5.4 % 14-44 L MONOCYTE % (test code = MO%) 4.7 % 4-13 N EOSINOPHIL % (test code = EO%) 0.8 % 0-6 N BASOPHIL % (test code = BA%) 0.8 % 0-2 N NUCLEATED RBC % (test code = 0.0 % 0-1.0 N NRBC%) NEUTROPHIL # (test code = NT#) 7.85 K/mm3 2.0-7.6 H IMMATURE GRANULOCYTE # (test 0.02 x10 3/uL 0-0.03 N code = IG#) LYMPHOCYTE # (test code = LY#) 0.48 K/mm3 1.0-3.8 L MONOCYTE # (test code = MO#) 0.42 K/mm3 0.1-0.8 N EOSINOPHIL # (test code = EO#) 0.07 K/mm3 0.0-0.2 N BASOPHIL # (test code = BA#) 0.07 K/mm3 0.0-0.2 N NUCLEATED RBC # (test code = 0.00 K/mm3 0.0-0.1 N NRBC#) LACTIC [id number] 19:25:00 Test Item Value Reference Range Interpretation Comments LACTIC ACID (test code = LACT) 2.2 MMOL/L 0.7-2.1 H LACTIC [id number] 14:59:00 Test Item Value Reference Range Interpretation Comments LACTIC ACID (test code = LACT) 2.5 MMOL/L 0.7-2.1 H LACTIC [id number] 12:27:00 Test Item Value Reference Range Interpretation Comments LACTIC ACID (test code = LACT) 2.8 MMOL/L 0.7-2.1 H PROTHROMBIN [id number] 09:37:00 Test Item Value Reference Range Interpretation Comments PROTHROMBIN TIME 41.0 SECONDS 9.4-12.5 HH CALLED TO Richardson Bai PATIENT (test code = & READB ACK ON PTP) 12/05/19 AT 093 3 BY Quan Rosario INTERNATIONAL NORMAL 3.7 HH CALLED TO DANIELA Bai RATIO (test code = & READBAC K ON INR) 12/05/19 AT 093 3 BY Deneen Rosario INR is to be used only for monitoring oral anticoagulantth erap y. INDICATION I NR VALUE ---- ---- ---- -------1. Prophylaxis, de ep venous thrombos is, including hig h risk surgery. 2.0 - 3.0 2. Prophylaxis, de ep venous thrombos is, hip surgery, treatment for d eep venous thrombosis or pulmonary prevention of systemic emboli sm in patients wit h valvular heart disease, atrial fibrillation, tissue heart va lve, or acute myocar dial infarction. 2.0 - 3 .0 3. Mechanical prosthesis hear t valves, recurrent syste eric embolism. 3.0 - 4.5 UNABLE TO DRAW BLOOD, REASON: PT BART CBN DRAWNOTIFIED PATIENT CARE STAFF: SHAE 12/05/19 AT 0632 BY Zachery Kang IS A CBN DRAWComments to Medical Biller: . BASIC METABOLIC [id number] 09:29:00 Test Item Value Reference Range Interpretation Comments SODIUM (test code = 134 MMOL/L 137-145 L NA) POTASSIUM (test code = 4.4 MMOL/L 3.5-5.1 N K) CHLORIDE (test code = 102 MMOL/L 98-107 N CL) CARBON DIOXIDE (test 25 MMOL/L 22-30 N code = CO2) GLUCOSE (test code = 201 MG/DL 74-106 H GLU) BLOOD UREA NITROGEN 25 MG/DL 7-17 H (test code = BUN) GLOMERULAR FILTRATION 48 Report ing units: RATE (test code = GFR) ml/mi n/1.73 m2 (Modified MDRD Formula)Referen ce Range: > or = 6 0 ml/min/1.73 m2 CREATININE (test code 1.10 MG/DL 0.52-1.04 H = CREAT) CALCIUM (test code = 8.1 MG/DL 8.4-10.2 L CA) UNABLE TO DRAW BLOOD, REASON: PT IS A CBN DRANOTIFIED PATIENT CARE STAFF: PIERRE 12/05/19 AT 06 [facility] IS A CBN DRAWBASIC METABOLIC [id number] 08:58:00 Test Item Value Reference Range Interpretation Comments SODIUM (test code = 134 MMOL/L 137-145 L NA) POTASSIUM (test code = 4.4 MMOL/L 3.5-5.1 N K) CHLORIDE (test code = MMOL/L 98-107 CL) CARBON DIOXIDE (test 25 MMOL/L 22-30 N code = CO2) GLUCOSE (test code = 201 MG/DL 74-106 H GLU) BLOOD UREA NITROGEN 25 MG/DL 7-17 H (test code = BUN) GLOMERULAR FILTRATION 48 Report ing units: RATE (test code = GFR) ml/mi n/1.73 m2 (Modified MDRD Formula)Referen ce Range: > or = 6 0 ml/min/1.73 m2 CREATININE (test code 1.10 MG/DL 0.52-1.04 H = CREAT) CALCIUM (test code = 8.1 MG/DL 8.4-10.2 L CA) UNABLE TO DRAW BLOOD, REASON: PT IS A CBN DRANOTIFIED PATIENT CARE STAFF: PIERRE 12/05/19 AT 0633 [facility] IS A CBN DRAWCBC W/AUTO [id number] 08:51:00 Test Item Value Reference Range Interpretation Comments WHITE BLOOD CELL (test code = 21.5 K/MM3 3.8-9.8 H WBC) RED BLOOD CELL (test code = 3.25 M/MM3 3.58-4.97 L RBC) HEMOGLOBIN (test code = HGB) 9.8 G/DL 11.2-14.9 L HEMATOCRIT (test code = HCT) 30.5 % 33.2-43.5 L MEAN CELL VOLUME (test code = 94 fL 80.7-99.1 N MCV) MEAN CELL HGB (test code = MCH) 30.2 pg 27.0-34.1 N MEAN CELL HGB CONCETRATION 32.1 % 32.2-35.7 L (test code = MCHC) RED CELL DISTRIBUTION WIDTH 14.7 % 12.1-15.2 N (test code = RDW) PLATELET COUNT (test code = 274 K/MM3 129-368 N PLT) MEAN PLATELET VOLUME (test code 10.3 fl 7.4-10.4 N = MPV) NEUTROPHIL % (test code = NT%) 89.6 % 43-75 H IMMATURE GRANULOCYTE % (test 2.4 % 0.0-2.0 H code = IG%) LYMPHOCYTE % (test code = LY%) 3.6 % 14-44 L MONOCYTE % (test code = MO%) 3.9 % 4-13 L EOSINOPHIL % (test code = EO%) 0.1 % 0-6 N BASOPHIL % (test code = BA%) 0.4 % 0-2 N NUCLEATED RBC % (test code = 0.0 % 0-1.0 N NRBC%) NEUTROPHIL # (test code = NT#) 19.22 K/mm3 2.0-7.6 H IMMATURE GRANULOCYTE # (test 0.52 x10 3/uL 0-0.03 H code = IG#) LYMPHOCYTE # (test code = LY#) 0.78 K/mm3 1.0-3.8 L MONOCYTE # (test code = MO#) 0.83 K/mm3 0.1-0.8 H EOSINOPHIL # (test code = EO#) 0.02 K/mm3 0.0-0.2 N BASOPHIL # (test code = BA#) 0.08 K/mm3 0.0-0.2 N NUCLEATED RBC # (test code = 0.00 K/mm3 0.0-0.1 N NRBC#) UNABLE TO DRAW BLOOD, REASON: PT IS A CBN DRAWNOTIFIED PATIENT CARE STAFF: MYRIAM 12/05/19 AT 0630 BYPearlZachery IS A CBN DRAW- US ABDOMEN [id number] 18:50:00[facility] : 1940 Sex: F Patient Name: JORGE A HORTA Unit No: [id number] EXAMS: CPT CODE: [id number] US ABDOMEN COMPLETE [id number] EXAM: Abdominal ultrasound complete Location: H24 HISTORY: Abdominal pain COMPARISON: Correlation with CT from 12/04/2019 TECHNIQUE: Static, aguilar-scale images of the abdomen were obtained. FINDINGS: The liver demonstrates normal echogenicity and echotexture. It measures 14.7 cm in length. Echogenicities in the left hepatic lobe more than likely corresponding to pneumobilia when correlated with CT.. There is no ascites. Gallbladder is not visualized. The common duct measures 1.35 cm which is abnormally dilated. No definite intrahepatic biliary dilatation is seen.. The spleen span is not visualized. The pancreas is suboptimally visualized secondary to overlying gas. The right kidney measures 9.6 cm and the left kidney measures 8.0 cm.. There is thinning of the renalcortices and slightly increased echogenicity which may indicate medical renal disease. No mass or obstruction is present. Aorta and inferior vena cava are not visualized. IMPRESSION: 1. Dilation of the common bile duct may relate to postcholecystectomy changes. 2. Pancreas, aorta and inferior vena cava are not optimally visualized. 3. Thinned and echogenic renal cortices may indicate medical renal disease. at 1850 Reported and signed by: Olayinka Weiner M.D. [facility] NAME: JORGE A HORTA [id number] [address] PHYS: [place] [address] : 1940 AGE: 79 SEX: F LOC: Z.SI06 A PHONE #: [phone] EXAM DATE: 12/04/2019 STATUS: ADM IN FAX #: [phone] RADIOLOGY NO: PAGE 1 Signed Report (CONTINUED) Patient Name: JORGE A HORTA Unit No: [id number] EXAMS: CPT CODE: [id number] US ABDOMEN COMPLETE [id number] <Continued> CC: Tevin Samuels; Ramu Sutherland MD Technologist: Citlaly Jones RDMS(AB) Transcrpt Date/Tm/Trnsp: 12/04/2019 (1849) [email or web address] Orig Print D/T: S: 12/04/2019 (1854) [facility] NAME: JORGE A HORTA [id number] PHYS: [place] [address] : 1940 AGE: 79 SEX: F LOC: Z.SI06 A PHONE #: [phone] EXAM DATE: 12/04/2019 STATUS: ADM IN FAX #: [phone] RADIOLOGY NO: PAGE 2 Signed Report- CT ABD PELVIS W/[id number] 18:09:00 [facility] : 1940 Sex: F Patient Name: JORGE A HORTA Unit No: [id number] EXAMS: CPT CODE: [id number] CT ABD PELVIS W/CONT [id number] EXAM: - CT ABD PELVIS W/CONT Location: H24 INDICATION: ABDOMINAL PAIN COMPARISON: None Technique: Axial images of the abdomen, and pelvis were obtained after the administration of 100 mL Isovue 300 intravenouscontrast. Coronal and sagittal reformatted images were created. One or more of the following dose reduction techniques were used: Automated exposure control, adjustment of the mA and/or kV according to patient size, and/or utilization of iterative reconstruction technique. GFR: Greater than 60 , Creatinine: 0.7 mg/dL DLP: 493 mGy-cm. FINDINGS: Abdomen Lower thorax: There are small layering bilateral pleural effusions withadjacent compressive atelectasis. Heart is mildly enlarged. 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 Partially visualized mitral valve calcification is noted. There is no pericardial effusion. 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 Hepatobiliary: There is pneumobilia. No discrete intrahepatic lesions are seen. Slight prominence of extrahepatic bile duct ismost likely due to postcholecystectomy changes. Gallbladder: Surgical absence Spleen: No visualized abnormality. Pancreas: No visualized abnormality. Adrenals: No visualized abnormality. Kidneys: Multiple tiny cysts are present within the kidneys, which are too small to characterize. There is slight cortical thinning. No hydronephrosis or hydroureter Bowel: There is fluid and gas distention ofdistal small bowel loops as well as proximal colonic loops followed to the descending colon. No obstruction is evident. Small gas and stool seen more distally within the rectum. Findings may indicate ileus. Slight thickening of the ileocolic junction may indicate further inf ectious/inflammatory etiology. Proximal small bowel loops are normal in caliber. The stomach and gastroesophageal junction are within normal limits. Appendix is not visualized. Vessels: There is extensive calcification within the abdominal aorta. No aneurysmal dilatation. [facility] NAME: EFREN [id number] PHYS: [place] [address] : 1940 AGE: 79 SEX: F LOC: Z.SI06 A PHONE #: [phone] EXAM DATE: 12/04/2019 STATUS: ADM IN FAX #: [phone] RAD #: D/C DT PAGE 1 Signed Report (CONTINUED) Patient Name: JORGE A HORTA Unit No: [id number] EXAMS: CPT CODE: [id number] CT ABD PELVIS W/CONT 27730 <Continued> Lymph nodes:No adenopathy. Peritoneum/retroperitoneum: There is small free fluid tracking along the right paracolic gutter. There is no free intraperitoneal air. FINDINGS: Pelvis Pelvic organs/bladder: There is abnormal contrast collection adjacent to the right common femoral artery which may represent pseudoaneurysm. This focus measures 1.6x 1.8 x 2.3 cm. There is small nonenhancing fluid adjacent to this focus. No large hematoma is otherwise seen. 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 Adnexal structures are otherwise within normal limits. There is small free fluid tracking to the pelvis. Lymph nodes: No pelvic or inguinal adenopathy. Bones/soft tissues: There is mild levoconvex curvature of the lumbar spine centered at L1-L2. No discrete osteolytic or osteosclerotic lesions are seen. IMPRESSION: 1. There is abnormal contrast collection adjacent to the right common femoral artery which measures 1.8 x 1.6 x 2.3 cm which may represent pseudoaneurysm. Small adjacent fluid is seen without large hematoma. 2. Slight mural thickening of the ileocolic junction and slight dilation of the distal small bowel loops and proximal colonic loops which may represent infectious/inflammatorywith associated ileus. No mechanical obstruction is evident. 3. Small layering bila teral pleural effusions with adjacent atelectasis. 4. Small ascites. 5. Pneumobilia. There is surgical absence of the gallbladder. Preliminary findings weregiven to Dr. Carson at 1805 hours on 12/04/2019. at 1809 Reported and signed by: Olayinka Weiner M.D. CC: Tevin Samuels; Ramu Sutherland MD Technologist: Deonte Plata, RT(R); [facility] CTDI: DLP: Trnscrpt: 12/04/2019 (1808) [email or web address] JOSE Dodge NAME: JORGE A HORTA Gerry PHYS: [place] [address] : 1940 AGE: 79 SEX: F LOC: Z.SI06 A PHONE #: [phone] EXAM DATE: 12/04/2019 STATUS: ADM IN FAX #: [phone] RAD #: D/C DT PAGE 2 Signed Report Patient Name: JORGE A HORTA Unit No: [id number] EXAMS: CPT CODE: [id number] CT ABD PELVIS W/CONT 05609 <Continued> Orig Print D/T: S: 12/04/2019 (1811) JOSE Dodge NAME: JORGE A HORTA Gerry PHYS: [place] [address] : 1940 AGE: 79 SEX: FACCT NO: [id number] LOC: Z.SI06 A PHONE #: [phone] EXAM DATE: 12/04/2019 STATUS: ADM IN FAX #: [phone] RAD #: D/C DT PAGE 3 Signed ReportGLUCOSE BEDSIDE [id number] 17:09:00 Test Item Value Reference Range Interpretation Comments GLUCOSE BEDSIDE TESTING (test code 134 MG/DL 60-99 H = GLUBED) HEART [id number] 13:06:00 Test Item Value Reference Range Interpretation Comments HEART VALVE (test code = HEARTV) RUN DATE: 12/04/19 [facility] - LAB PAGE 1 RUN TIME: 1306 Specimen Inquiry RUN USER: INTERFACE PATIENT: JORGE A HORTA LOC: JEF U #: [id number] AGE/SX: 79/F ROOM: [facility] RE11/26/19REG DR: Tevin Samuels MD : 38 BED: A DIS: STATUS: ADM IN TLOC: SPEC #: [id number] RECD: 12/01/19 STATUS: DEVORA ALEJANDRO #: [id number] KEENAN: 11/30/[address] [facility] [address]: Tevin Samuels MD ENTERED: 12/01/19 SP TYPE: HEARTV OTHR DR: Self Referred Home Bryant MD R1 Donna Carson MD, Rajyalakshmi MD Pepper, Gregory S MD [facility] anORDERED: DECAL, SURG PATH LVL 4 CODES: [id number] - AORTIC VALVE, N [id number] - AORTIC VALVE, N DEGENERATION, N [id number] - AORTIC VALVE, N REPAIR, NOS 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 [address] Home Bryant MD R1 [address] [place] [address] [place] [address] [facility] [address] [place] [address] Ramu Sutherland MD [address] [place], [place] [id number] [place] [address] [facility] [address] [place] [address] Taurus Dixon [address] [place] [address] CONTINUED ON NEXT PAGE RUN DATE: 12/04/19 Melvin - LAB PAGE 2 RUN TIME: 1306 Specimen Inquiry RUN USER: INTERFACE SPEC #: [id number] PATIENT: JORGE A HORTA #[id number] (Continued) PROCEDURES: DECAL (12/01/19) SURG PATH LVL 4 (12/01/19) TISSUES: A. AORTIC VALVE, NOS - AORTIC VALVE CPT CODES CPT CODE(S): 42978 , 43467 , , , , , FINAL DIAGNOSIS Aortic valve leaflets, "stenosis," repair: CALCIFIC DEGENERATION NO ATYPIA NO MALIGNANCY GROSS DESCRIPTION Aortic valve leaflets. Received are several isaac-white fragments of valve (2.5 x 2 x 0.6 cm in aggregate). Sectioning reveals a partially calcified wall. Sections are submitted for decalcification as A1. /tc/elizabeth MICROSCOPIC DESCRIPTION Aortic valve leaflets. Benign, nodular, interstitial calcification with stromal sclerosis. No atypical features. /bb Signed SIGNATURE ON FILE MackinacJuan arana 12/04/19 1306 END OF REPORT COMPREHENSIVE METABOLIC [id number] 13:00:00 Test Item Value Reference Range Interpretation Comments SODIUM (test code = 139 MMOL/L 137-145 N NA) POTASSIUM (test code 4.1 MMOL/L 3.5-5.1 N = K) CHLORIDE (test code 104 MMOL/L 98-107 N = CL) CARBON DIOXIDE (test 22 MMOL/L 22-30 N code = CO2) ANION GAP (test code 17 MMOL/L 14-24 N = GAP) GLUCOSE (test code = 152 MG/DL 74-106 H GLU) BLOOD UREA NITROGEN 15 MG/DL 7-17 N (test code = BUN) GLOMERULAR > 60 Reporting units : FILTRATION RATE ml/min/1.73 m2 (test code = GFR) (Modified MDRD Formula)Referen ce Range: > or = 6 0 ml/min/1.73 m2 CREATININE (test 0.70 MG/DL 0.52-1.04 N code = CREAT) TOTAL PROTEIN (test 6.7 G/DL 6.3-8.2 N code = PROT) ALBUMIN (test code = 3.6 G/DL 3.5-5.0 N ALB) CALCIUM (test code = 8.8 MG/DL 8.4-10.2 N CA) BILIRUBIN TOTAL 1.2 MG/DL 0.2-1.3 N Eltrombopag (test code = BILT) Interfere nce for Vitros Product TBil, BuBc: ======= ======= ======A ssay Eltrombop ag Analyte/ Max Observed Avg. Bias Concentratio n Concentration Concentration== ======= ======= ======= =======TBil 7 mg/dl TBil/ 1.2m g/dl +0.23mg.dl +0.20mg/dlBuBc 3.5mg/dl Bu/0.8mg/dl +0.25mg/dl +0.24mg/dlBuBc 7 mg/dl Bu/14.2mg/dl +0.38mg/dl +0.25mg/dlBuBc 5mg/dl Bc/0mg/dl +0.25mg/dl +0.15mg/dlBuBc 3.5mg/dl Bc/2.8mg/dl +0.25mg/dl +0.23mg/dl SGOT/AST (test code 46 UNITS/L 14-36 H = AST) SGPT/ALT (test code 50 UNITS/L <35 = ALT) ALKALINE PHOSPHATASE 105 UNITS/L 38-126 N (test code = ALKP) PROTHROMBIN [id number] 12:57:00 Test Item Value Reference Range Interpretation Comments PROTHROMBIN TIME 25.3 SECONDS 9.4-12.5 H PATIENT (test code = PTP) INTERNATIONAL NORMAL 2.3 The INR is to be RATIO (test code = used only for INR) monitoring oral anticoagulantth erap y. INDICATION I NR VALUE ---- ---- ---- -------1. Prophylaxis, de ep venous thrombos is, including hig h risk surgery. 2.0 - 3.0 2. Prophylaxis, de ep venous thrombos is, hip surgery, treatment for d eep venous thrombosis or pulmonary prevention of systemic emboli sm in patients wit h valvular heart disease, atrial fibrillation, tissue heart va lve, or acute myocar dial infarction. 2.0 - 3 .0 3. Mechanical prosthesis hear t valves, recurrent syste eric embolism. 3.0 - 4.5 COMPREHENSIVE METABOLIC [id number] 12:55:00 Test Item Value Reference Range Interpretation Comments SODIUM (test code = NA) 139 MMOL/L 137-145 N POTASSIUM (test code = 4.1 MMOL/L 3.5-5.1 N K) CHLORIDE (test code = 104 MMOL/L 98-107 N CL) CARBON DIOXIDE (test MMOL/L 22-30 code = CO2) GLUCOSE (test code = MG/DL 74-106 GLU) BLOOD UREA NITROGEN MG/DL 7-17 (test code = BUN) GLOMERULAR FILTRATION > 60 Report ing units: RATE (test code = GFR) ml/mi n/1.73 m2 (Modified MDRD Formula)Referen ce Range: > or = 6 0 ml/min/1.73 m2 CREATININE (test code = 0.70 MG/DL 0.52-1.04 N CREAT) TOTAL PROTEIN (test G/DL 6.3-8.2 code = PROT) ALBUMIN (test code = 3.6 G/DL 3.5-5.0 N ALB) CALCIUM (test code = MG/DL 8.7-9.7 CA) BILIRUBIN TOTAL (test MG/DL 0.2-1.3 code = BILT) SGOT/AST (test code = UNITS/L 15-37 AST) SGPT/ALT (test code = UNITS/L <35 ALT) ALKALINE PHOSPHATASE UNITS/L 38-126 (test code = ALKP) CBC W/AUTO [id number] 12:54:00 Test Item Value Reference Range Interpretation Comments WHITE BLOOD CELL (test code = 22.5 K/MM3 3.8-9.8 H WBC) RED BLOOD CELL (test code = 3.86 M/MM3 3.58-4.97 N RBC) HEMOGLOBIN (test code = HGB) 11.4 G/DL 11.2-14.9 N HEMATOCRIT (test code = HCT) 37.4 % 33.2-43.5 N MEAN CELL VOLUME (test code = 97 fL 80.7-99.1 N MCV) MEAN CELL HGB (test code = MCH) 29.5 pg 27.0-34.1 N MEAN CELL HGB CONCETRATION 30.5 % 32.2-35.7 L (test code = MCHC) RED CELL DISTRIBUTION WIDTH 14.6 % 12.1-15.2 N (test code = RDW) PLATELET COUNT (test code = 237 K/MM3 129-368 PLT) MEAN PLATELET VOLUME (test code 10.5 fl 7.4-10.4 H = MPV) NEUTROPHIL % (test code = NT%) 91.8 % 43-75 H IMMATURE GRANULOCYTE % (test 0.6 % 0.0-2.0 N code = IG%) LYMPHOCYTE % (test code = LY%) 2.4 % 14-44 L MONOCYTE % (test code = MO%) 4.6 % 4-13 N EOSINOPHIL % (test code = EO%) 0.3 % 0-6 N BASOPHIL % (test code = BA%) 0.3 % 0-2 N NUCLEATED RBC % (test code = 0.0 % 0-1.0 N NRBC%) NEUTROPHIL # (test code = NT#) 20.69 K/mm3 2.0-7.6 H IMMATURE GRANULOCYTE # (test 0.13 x10 3/uL 0-0.03 H code = IG#) LYMPHOCYTE # (test code = LY#) 0.54 K/mm3 1.0-3.8 L MONOCYTE # (test code = MO#) 1.03 K/mm3 0.1-0.8 H EOSINOPHIL # (test code = EO#) 0.06 K/mm3 0.0-0.2 N BASOPHIL # (test code = BA#) 0.07 K/mm3 0.0-0.2 N NUCLEATED RBC # (test code = 0.00 K/mm3 0.0-0.1 N NRBC#) COMPREHENSIVE METABOLIC [id number] 12:53:00 Test Item Value Reference Range Interpretation Comments SODIUM (test code = NA) 139 MMOL/L 137-145 N POTASSIUM (test code = K) 4.1 MMOL/L 3.5-5.1 N CHLORIDE (test code = CL) 104 MMOL/L 98-107 N CARBON DIOXIDE (test code = CO2) MMOL/L 22-30 GLUCOSE (test code = GLU) MG/DL 74-106 BLOOD UREA NITROGEN (test code = MG/DL 7-17 BUN) GLOMERULAR FILTRATION RATE (test code = GFR) CREATININE (test code = CREAT) MG/DL 0.52-1.04 TOTAL PROTEIN (test code = PROT) G/DL 6.3-8.2 ALBUMIN (test code = ALB) 3.6 G/DL 3.5-5.0 N CALCIUM (test code = CA) MG/DL 8.7-9.7 BILIRUBIN TOTAL (test code = BILT) MG/DL 0.2-1.3 SGOT/AST (test code = AST) UNITS/L 15-37 SGPT/ALT (test code = ALT) UNITS/L <35 ALKALINE PHOSPHATASE (test code = UNITS/L 38-126 ALKP) GLUCOSE BEDSIDE [id number] 12:46:00 Test Item Value Reference Range Interpretation Comments GLUCOSE BEDSIDE TESTING 111 MG/DL 60-99 H Noti fied Nurse~ (test code = GLUBED) GLUCOSE BEDSIDE [id number] 10:31:00 Test Item Value Reference Range Interpretation Comments GLUCOSE BEDSIDE TESTING (test code 109 MG/DL 60-99 H = GLUBED) GLUCOSE BEDSIDE [id number] 10:31:00 Test Item Value Reference Range Interpretation Comments GLUCOSE BEDSIDE TESTING (test code 112 MG/DL 60-99 H = GLUBED) GLUCOSE BEDSIDE [id number] 10:31:00 Test Item Value Reference Range Interpretation Comments GLUCOSE BEDSIDE TESTING (test code 124 MG/DL 60-99 H = GLUBED) GLUCOSE BEDSIDE [id number] 10:30:00 Test Item Value Reference Range Interpretation Comments GLUCOSE BEDSIDE TESTING (test code 143 MG/DL 60-99 H = GLUBED) - XR CHEST [id number] 08:28:00 [facility] 1940 Sex: F Patient Name: JORGE A HORTA Unit No: [id number] EXAMS: CPT CODE: [id number] XR CHEST 1V 28574 B2 EXAM: - XR CHEST 1V HISTORY: S/P CABG COMPARISON: 12/03/2019 FINDINGS: Subclavian central line in unchanged position. Median sternotomy wires and prosthetic heart valve again noted. Patchy retrocardiac airspace opacities. No pleural effusion or pneumothorax. The cardiac silhouette is withinnormal limits. Moderate atherosclerotic calcification in the aortic arch. No acute osse ous abnormalities. IMPRESSION: Retrocardiac atelectasis and/or pulmonary edema. at 0828 Reported and signed by: Haresh Gross MD CC: Tevin Samuels; Ramu Sutherland MD Technologist: Yobani Elias, RT(R) Transcrpt Date/Tm/Trnsp: 12/04/2019 (0828) t.SDR.VB7 Orig Print D/T: S: 12/04/2019 (0831) [facility] NAME: JORGE A HORTA [id number] PHYS: [place] [address] : 1940 AGE: 79 SEX: F LOC: Z.SI06 A PHONE #: [phone] EXAM DATE: 12/04/2019 STATUS: ADM IN FAX #: [phone] RADIOLOGY NO: PAGE 1 Signed ReportGLUCOSE BEDSIDE [id number] 08:00:00 Test Item Value Reference Range Interpretation Comments GLUCOSE BEDSIDE TESTING (test code 167 MG/DL 60-99 H = GLUBED) GLUCOSE BEDSIDE [id number] 20:26:00 Test Item Value Reference Range Interpretation Comments GLUCOSE BEDSIDE TESTING (test code 140 MG/DL 60-99 H = GLUBED) - XR CHEST [id number] 15:49:00 [facility] : 1940 Sex: F Patient Name: JORGE A HORTA Unit No: [id number] EXAMS: CPT CODE: [id number] XR CHEST 1V 86150 EXAM: - XR CHEST 1V CLINICAL HISTORY: CHEST TUBE REMOVAL COMPARISON: Chest radiographs 12/03/2019 and 12/02/2019. LOCATION: H65 FINDINGS: Interval removal of mediastinal drains. Unchanged right central line catheter. Midline sternotomy wires and mediastinal surgical clips again noted. Evidence of valve repair. The trachea appears normal. The cardiac silhouette is mildly enlarged and unchanged from priors. No confluent airspace opacities noted. No pleural effusions. No large pneumothorax. Limited evaluation of soft tissues and osseous structures is grossly unremarkable. IMPRESSION: Interval removal of mediastinal drains. No confluent airspace opacity or large pneumothorax. Unchanged cardiomegaly. [id number] Reported and signed by: Jim Rosales MD CC: Tevin Samuels; Ramu Sutherland MD Technologist: Zoltan Low (RT) Transcrpt Date/Tm/Trnsp: 12/03/2019 1543) t.CARLAR.JW22 Orig Print D/T: S: 12/03/2019 (1555) [facility] NAME: JORGE A HORTA [id number] PHYS: [place] [address] : 1940 AGE: 79 SEX: F LOC: Z.SI06 A PHONE #: [phone] EXAM DATE: 12/03/2019 STATUS: ADM IN FAX #: [phone] RADIOLOGY NO: PAGE 1 Signed ReportGLUCOSE BEDSIDE [id number] 11:56:00 Test Item Value Reference Range Interpretation Comments GLUCOSE BEDSIDE TESTING (test code 160 MG/DL 60-99 H = GLUBED) - XR CHEST [id number] 06:30:00 [facility] : 1940 Sex: F Patient Name: JORGE A HORTA Unit No: [id number] EXAMS: CPT CODE: [id number] XR CHEST 1V 68095 Location of dictation: B2 Portable chest one view. HISTORY: S/P CABG COMMENT: Compared to one day prior. A right subclavian central line, mediastinal drain and left chest tube remain in place poststernotomy. There is continued improvement with decreasing heart size and improved infiltrates. No new consolidation, pneumothorax or effusion seen. Residual left-sided atelectasis and small left effusion.. Visualized soft tissues and skeletal structures are unremarkable. There has been no significant changes. IMPRESSION: Continued improvement in aeration of the lungs with no unfavorable changes. at 0630 Reported and signed by: Ella Craft M.D.CC: Tevin Samuels; Ramu Sutherland MD Technologist: Yobani Elias, RT(R) Transcrpt Date/Tm/Trnsp: 12/03/2019 (06) AuraPXC Orig Print D/T: S: 12/03/2019 (0633) [facility] NAME: JORGE A HORTA [id number] PHYS: [place] [address] : 1940 AGE: 79 SEX: F LOC: Z.SI06 A PHONE #: [phone] EXAM DATE: 12/03/2019 STATUS: ADM IN FAX #: [phone] RADIOLOGY NO: PAGE 1 Signed Report GLUCOSE BEDSIDE [id number] 21:37:00 Test Item Value Reference Range Interpretation Comments GLUCOSE BEDSIDE TESTING (test code 102 MG/DL 60-99 H = GLUBED) GLUCOSE BEDSIDE [id number] 17:38:00 Test Item Value Reference Range Interpretation Comments GLUCOSE BEDSIDE TESTING (test code 155 MG/DL 60-99 H = GLUBED) GLUCOSE BEDSIDE [id number] 12:02:00 Test Item Value Reference Range Interpretation Comments GLUCOSE BEDSIDE TESTING (test code 139 MG/DL 60-99 H = GLUBED) PROTHROMBIN [id number] 10:15:00 Test Item Value Reference Range Interpretation Comments PROTHROMBIN TIME 15.3 SECONDS 9.4-12.5 H PATIENT (test code = PTP) INTERNATIONAL NORMAL 1.4 The INR is to be RATIO (test code = used only for INR) monitoring oral anticoagulantth erap y. INDICATION I NR VALUE ---- ---- ---- -------1. Prophylaxis, de ep venous thrombos is, including hig h risk surgery. 2.0 - 3.0 2. Prophylaxis, de ep venous thrombos is, hip surgery, treatment for d eep venous thrombosis or pulmonary prevention of systemic emboli sm in patients wit h valvular heart disease, atrial fibrillation, tissue heart va lve, or acute myocar dial infarction. 2.0 - 3 .0 3. Mechanical prosthesis hear t valves, recurrent syste eric embolism. 3.0 - 4.5 UNABLE TO DRAW BLOOD, REASON: CBNNOTIFIED PATIENT CARE STAFF: ON 12/02/19 AT 0715 BY Tolu LeggettLUCASAD BEDSIDE [id number] 08:05:00 Test Item Value Reference Range Interpretation Comments GLUCOSE BEDSIDE TESTING (test code 135 MG/DL 60-99 H = GLUBED) - XR CHEST [id number] 06:21:00 [facility] : 1940 Sex: F Patient Name: JORGE A HORTA Unit No: [id number] EXAMS: CPT CODE: [id number] XR CHEST 1V 11964 HISTORY: Follow-up Location: COMPARISON:12/01/2019 FINDINGS: 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 Endotracheal tube and nasogastric tube have been removed. [place]- Laura catheter has been removed. No pneumothorax. Mild cardiomegaly persists. Perihilar and retrocardiac left basilar opacity persists. No other changes from prior study. IMPRESSION: 1. Interval extubation and interval removal of [place]-Laura catheter. 2. No pneumothorax. No other changes from prior study. at 0621 Reported and signed by: Donna Foy MD CC: Tevin Samuels; Ramu Sutherland MD Technologist: Yobani Elias, RT(R) Transcrpt Date/Tm/Trnsp: 12/02/2019 (0621) t.SDR.RXC2 Orig Print D/T: S: 12/02/2019(0625) [facility] NAME: JORGE A HORTA [id number] PHYS: [place] [address] : 1940 AGE: 79 SEX: F LOC: Z.SI06 A PHONE #: [phone] EXAM DATE: 12/02/2019 STATUS: ADM IN FAX #: [phone] RADIOLOGY NO: PAGE 1 Signed ReportGLUCOSE BEDSIDE [id number] 19:57:00 Test Item Value Reference Range Interpretation Comments GLUCOSE BEDSIDE TESTING (test code 116 MG/DL 60-99 H = GLUBED) GLUCOSE BEDSIDE [id number] 18:10:00 Test Item Value Reference Range Interpretation Comments GLUCOSE BEDSIDE TESTING (test code 128 MG/DL 60-99 H = GLUBED) GLUCOSE BEDSIDE [id number] 17:09:00 Test Item Value Reference Range Interpretation Comments GLUCOSE BEDSIDE TESTING (test code 120 MG/DL 60-99 H = GLUBED) GLUCOSE BEDSIDE [id number] 15:48:00 Test Item Value Reference Range Interpretation Comments GLUCOSE BEDSIDE TESTING (test code 122 MG/DL 60-99 H = GLUBED) GLUCOSE BEDSIDE [id number] 14:09:00 Test Item Value Reference Range Interpretation Comments GLUCOSE BEDSIDE TESTING (test code 117 MG/DL 60-99 H = GLUBED) GLUCOSE BEDSIDE [id number] 13:23:00 Test Item Value Reference Range Interpretation Comments GLUCOSE BEDSIDE TESTING (test code 112 MG/DL 60-99 H = GLUBED) GLUCOSE BEDSIDE [id number] 12:26:00 Test Item Value Reference Range Interpretation Comments GLUCOSE BEDSIDE TESTING (test code 121 MG/DL 60-99 H = GLUBED) GLUCOSE BEDSIDE [id number] 11:12:00 Test Item Value Reference Range Interpretation Comments GLUCOSE BEDSIDE TESTING (test code 133 MG/DL 60-99 H = GLUBED) GLUCOSE BEDSIDE [id number] 10:24:00 Test Item Value Reference Range Interpretation Comments GLUCOSE BEDSIDE TESTING (test code 139 MG/DL 60-99 H = GLUBED) GLUCOSE BEDSIDE [id number] 09:26:00 Test Item Value Reference Range Interpretation Comments GLUCOSE BEDSIDE TESTING (test code 139 MG/DL 60-99 H = GLUBED) GLUCOSE BEDSIDE [id number] 08:31:00 Test Item Value Reference Range Interpretation Comments GLUCOSE BEDSIDE TESTING (test code 138 MG/DL 60-99 H = GLUBED) - XR CHEST [id number] 07:58:00 [facility] : 1940 Sex: F Patient Name: JORGE A HORTA Unit No: [id number] EXAMS: CPT CODE: [id number] XR CHEST 1V 05677 B2 EXAM: - XR CHEST 1V HISTORY: S/P CABG COMPARISON: 11/30/2019 FINDINGS: Endotracheal tube, nasogastric tube, [place]-Laura catheter and right subclavian central line in unchanged position. Prosthetic heart valve and median sternotomy wires again noted. Improved aeration in the lung bases. No pleural effusion or pneumothorax. The cardiac silhouette is within normal limits. Moderate atherosclerotic calcification in the aortic arch. No acute osseous abnormalities. IMPRESSION: 1. Support lines and tubes in unchanged position. 2. Improved aeration with decreased pulmonary edema in both lungs. at 0758 Reported and signed by: Haresh Gross MD CC: Tevin Samuels; Ramu Sutherland MD Technologist: Leonie Moon, RT(R) Transcrpt Date/Tm/Trnsp: 12/01/2019 (0758) AuraVB7 Orig Print D/T: S: 12/01/2019 (0801) [facility] [id number] PHYS: [place] [address] : 1940 AGE: 79 SEX: F LOC: Z.SI06 A PHONE #: [phone] EXAM DATE: 12/01/2019 STATUS: ADM IN FAX #: [phone] RADIOLOGY NO: PAGE 1 Signed ReportGLUCOSE BEDSIDE [id number] 07:12:00 Test Item Value Reference Range Interpretation Comments GLUCOSE BEDSIDE TESTING (test code 137 MG/DL 60-99 H = GLUBED) GLUCOSE BEDSIDE [id number] 06:21:00 Test Item Value Reference Range Interpretation Comments GLUCOSE BEDSIDE TESTING (test code 141 MG/DL 60-99 H = GLUBED) GLUCOSE BEDSIDE [id number] 03:09:00 Test Item Value Reference Range Interpretation Comments GLUCOSE BEDSIDE TESTING (test code 158 MG/DL 60-99 H = GLUBED) GLUCOSE BEDSIDE [id number] 02:23:00 Test Item Value Reference Range Interpretation Comments GLUCOSE BEDSIDE TESTING (test code 149 MG/DL 60-99 H = GLUBED) GLUCOSE BEDSIDE [id number] 23:56:00 Test Item Value Reference Range Interpretation Comments GLUCOSE BEDSIDE TESTING (test code 171 MG/DL 60-99 H = GLUBED) GLUCOSE BEDSIDE [id number] 23:08:00 Test Item Value Reference Range Interpretation Comments GLUCOSE BEDSIDE TESTING (test code 163 MG/DL 60-99 H = GLUBED) GLUCOSE BEDSIDE [id number] 21:54:00 Test Item Value Reference Range Interpretation Comments GLUCOSE BEDSIDE TESTING (test code 164 MG/DL 60-99 H = GLUBED) BASIC METABOLIC [id number] 21:36:00 Test Item Value Reference Range Interpretation Comments SODIUM (test code = 144 MMOL/L 137-145 N NA) POTASSIUM (test code = 4.3 MMOL/L 3.5-5.1 N K) CHLORIDE (test code = 115 MMOL/L 98-107 H CL) CARBON DIOXIDE (test 22 MMOL/L 22-30 N code = CO2) GLUCOSE (test code = 215 MG/DL 74-106 H GLU) BLOOD UREA NITROGEN 14 MG/DL 7-17 N (test code = BUN) GLOMERULAR FILTRATION > 60 Report ing units: RATE (test code = GFR) ml/mi n/1.73 m2 (Modified MDRD Formula)Referen ce Range: > or = 6 0 ml/min/1.73 m2 CREATININE (test code 0.70 MG/DL 0.52-1.04 N = CREAT) CALCIUM (test code = 8.2 MG/DL 8.4-10.2 L CA) [id number] 21:36:00 Test Item Value Reference Range Interpretation Comments MAGNESIUM (test code = 6.7 MG/DL 1.6-2.3 BERNABE Carr& ) READBACK ON AT 2136 BY Dario Maria BASIC METABOLIC [id number] 21:33:00 Test Item Value Reference Range Interpretation Comments SODIUM (test code = 144 MMOL/L 137-145 N NA) POTASSIUM (test code = 4.3 MMOL/L 3.5-5.1 N K) CHLORIDE (test code = 115 MMOL/L 98-107 H CL) CARBON DIOXIDE (test 22 MMOL/L 22-30 N code = CO2) GLUCOSE (test code = 215 MG/DL 74-106 H GLU) BLOOD UREA NITROGEN 14 MG/DL 7-17 N (test code = BUN) GLOMERULAR FILTRATION > 60 Report ing units: RATE (test code = GFR) ml/mi n/1.73 m2 (Modified MDRD Formula)Referen ce Range: > or = 6 0 ml/min/1.73 m2 CREATININE (test code 0.70 MG/DL 0.52-1.04 N = CREAT) CALCIUM (test code = 8.2 MG/DL 8.4-10.2 L CA) [id number] 21:33:00 Test Item Value Reference Range Interpretation Comments MAGNESIUM (test code = MAG) MG/DL 1.6-2.3 PROTHROMBIN [id number] 21:31:00 Test Item Value Reference Range Interpretation Comments PROTHROMBIN TIME 13.2 SECONDS 9.4-12.5 H PATIENT (test code = PTP) INTERNATIONAL NORMAL 1.2 The INR is to be RATIO (test code = used only for INR) monitoring oral anticoagulantth erap y. INDICATION I NR VALUE ---- ---- ---- -------1. Prophylaxis, de ep venous thrombos is, including hig h risk surgery. 2.0 - 3.0 2. Prophylaxis, de ep venous thrombos is, hip surgery, treatment for d eep venous thrombosis or pulmonary prevention of systemic emboli sm in patients wit h valvular heart disease, atrial fibrillation, tissue heart va lve, or acute myocar dial infarction. 2.0 - 3 .0 3. Mechanical prosthesis hear t valves, recurrent syste eric embolism. 3.0 - 4.5 Comments to Medical Biller: PEDIATRIC TUBES!Comments to Medical Biller: PEDIATRIC TUBESPTT [id number] 21:31:00 Test Item Value Reference Range Interpretation Comments PTT ACTIVATED (test code = APTT) 21.8 SECONDS 25.1-36.5 L Comments to Medical Biller: PEDIATRIC TUBES!Comments to Medical Biller: PEDIATRIC TUBESBASIC METABOLIC [id number] 21:30:00 Test Item Value Reference Range Interpretation Comments SODIUM (test code = NA) 144 MMOL/L 137-145 N POTASSIUM (test code = K) 4.3 MMOL/L 3.5-5.1 N CHLORIDE (test code = CL) 115 MMOL/L 98-107 H CARBON DIOXIDE (test code = CO2) MMOL/L 22-30 GLUCOSE (test code = GLU) MG/DL 74-106 BLOOD UREA NITROGEN (test code = MG/DL 7-17 BUN) GLOMERULAR FILTRATION RATE (test code = GFR) CREATININE (test code = CREAT) MG/DL 0.52-1.04 CALCIUM (test code = CA) MG/DL 8.7-9.7 [id number] 21:30:00 Test Item Value Reference Range Interpretation Comments MAGNESIUM (test code = MAG) MG/DL 1.6-2.3 CBC W/AUTO [id number] 21:24:00 Test Item Value Reference Range Interpretation Comments WHITE BLOOD CELL (test code = 20.3 K/MM3 3.8-9.8 H WBC) RED BLOOD CELL (test code = 3.03 M/MM3 3.58-4.97 L RBC) HEMOGLOBIN (test code = HGB) 9.0 G/DL 11.2-14.9 L HEMATOCRIT (test code = HCT) 27.9 % 33.2-43.5 L MEAN CELL VOLUME (test code = 92 fL 80.7-99.1 N MCV) MEAN CELL HGB (test code = MCH) 29.7 pg 27.0-34.1 N MEAN CELL HGB CONCETRATION 32.3 % 32.2-35.7 N (test code = MCHC) RED CELL DISTRIBUTION WIDTH 14.3 % 12.1-15.2 N (test code = RDW) PLATELET COUNT (test code = 115 K/MM3 129-368 L PLT) MEAN PLATELET VOLUME (test code 10.3 fl 7.4-10.4 N = MPV) NEUTROPHIL % (test code = NT%) 88.0 % 43-75 H IMMATURE GRANULOCYTE % (test 0.6 % 0.0-2.0 N code = IG%) LYMPHOCYTE % (test code = LY%) 6.3 % 14-44 L MONOCYTE % (test code = MO%) 4.8 % 4-13 N EOSINOPHIL % (test code = EO%) 0.2 % 0-6 N BASOPHIL % (test code = BA%) 0.1 % 0-2 N NUCLEATED RBC % (test code = 0.0 % 0-1.0 N NRBC%) NEUTROPHIL # (test code = NT#) 17.83 K/mm3 2.0-7.6 H IMMATURE GRANULOCYTE # (test 0.12 x10 3/uL 0-0.03 H code = IG#) LYMPHOCYTE # (test code = LY#) 1.28 K/mm3 1.0-3.8 N MONOCYTE # (test code = MO#) 0.97 K/mm3 0.1-0.8 H EOSINOPHIL # (test code = EO#) 0.04 K/mm3 0.0-0.2 N BASOPHIL # (test code = BA#) 0.03 K/mm3 0.0-0.2 N NUCLEATED RBC # (test code = 0.00 K/mm3 0.0-0.1 N NRBC#) - XR CHEST [id number] 20:54:00 [facility] : 1940 Sex: F Patient Name: JORGE A HORTA Unit No: [id number] EXAMS: CPT CODE: [id number] XR CHEST 1V [id number] EXAM: - XR CHEST 1V LOCATION: C3 HISTORY: S/P CABG COMPARISON: 11/29/2019 FINDINGS: Single view of the chest. Right subclavian catheter tip overlies the cubital junction. [place]-Laura catheter tip overlies main pulmonary trunk. Endotracheal tube tip is 2.3 cm above the mayank. No pneumothorax. The lungs are clear without significant effusions. The mediastinal contours are unremarkable/unchanged. No acute osseous findings are present. IMPRESSION: No acute cardiopulmonary abnormality. Lines and tubes as above. at 2053 Reported and signed by: Malachi Dobbins MD CC: Tevin Samuels; Ramu Sutherland MD Technologist: Clarita Webster (RT)(R) Transcrpt Date/Tm/Trnsp: 11/30/2019 (2053) t.SDR.HV2 Orig Print D/T: S: 11/30/2019 (2056) [facility] NAME: JORGE A HORTA [id number] [address] PHYS: [place] [address] : 1940 AGE: 79 SEX: F LOC: [id number] PHONE #: [phone] EXAM DATE: 11/30/2019 STATUS: ADM IN FAX #: [phone] RADIOLOGY NO: PAGE 1 Signed ReportGLUCOSE BEDSIDE [id number] 20:17:00 Test Item Value Reference Range Interpretation Comments GLUCOSE BEDSIDE TESTING (test code 206 MG/DL 60-99 H = GLUBED) BASIC METABOLIC [id number] 19:45:00 Test Item Value Reference Range Interpretation Comments SODIUM (test code = 141 MMOL/L 137-145 N NA) POTASSIUM (test code = 4.8 MMOL/L 3.5-5.1 N K) CHLORIDE (test code = 117 MMOL/L 98-107 H CL) CARBON DIOXIDE (test 22 MMOL/L 22-30 N code = CO2) ANION GAP (test code = 7 MMOL/L 14-24 L GAP) GLUCOSE (test code = 195 MG/DL 74-106 H GLU) BLOOD UREA NITROGEN 14 MG/DL 7-17 N (test code = BUN) GLOMERULAR FILTRATION > 60 Report ing units: RATE (test code = GFR) ml/mi n/1.73 m2 (Modified MDRD Formula)Referen ce Range: > or = 6 0 ml/min/1.73 m2 CREATININE (test code 0.70 MG/DL 0.52-1.04 N = CREAT) CALCIUM (test code = 7.7 MG/DL 8.4-10.2 L CA) BASIC METABOLIC [id number] 19:42:00 Test Item Value Reference Range Interpretation Comments SODIUM (test code = 141 MMOL/L 137-145 N NA) POTASSIUM (test code = 4.8 MMOL/L 3.5-5.1 N K) CHLORIDE (test code = 117 MMOL/L 98-107 H CL) CARBON DIOXIDE (test 22 MMOL/L 22-30 N code = CO2) ANION GAP (test code = 7 MMOL/L 14-24 L GAP) GLUCOSE (test code = MG/DL 74-106 GLU) BLOOD UREA NITROGEN 14 MG/DL 7-17 N (test code = BUN) GLOMERULAR FILTRATION > 60 Report ing units: RATE (test code = GFR) ml/mi n/1.73 m2 (Modified MDRD Formula)Referen ce Range: > or = 6 0 ml/min/1.73 m2 CREATININE (test code 0.70 MG/DL 0.52-1.04 N = CREAT) CALCIUM (test code = MG/DL 8.7-9.7 CA) PROTHROMBIN [id number] 19:42:00 Test Item Value Reference Range Interpretation Comments PROTHROMBIN TIME 22.7 SECONDS 9.4-12.5 H PATIENT (test code = PTP) INTERNATIONAL NORMAL 2.0 The INR is to be RATIO (test code = used only for INR) monitoring oral anticoagulantth erap y. INDICATION I NR VALUE ---- ---- ---- -------1. Prophylaxis, de ep venous thrombos is, including hig h risk surgery. 2.0 - 3.0 2. Prophylaxis, de ep venous thrombos is, hip surgery, treatment for d eep venous thrombosis or pulmonary prevention of systemic emboli sm in patients wit h valvular heart disease, atrial fibrillation, tissue heart va lve, or acute myocar dial infarction. 2.0 - 3 .0 3. Mechanical prosthesis hear t valves, recurrent syste eric embolism. 3.0 - 4.5 PTT [id number] 19:42:00 Test Item Value Reference Range Interpretation Comments PTT ACTIVATED (test code = APTT) 26.3 SECONDS 25.1-36.5 N BASIC METABOLIC [id number] 19:39:00 Test Item Value Reference Range Interpretation Comments SODIUM (test code = NA) 141 MMOL/L 137-145 N POTASSIUM (test code = K) 4.8 MMOL/L 3.5-5.1 N CHLORIDE (test code = CL) 117 MMOL/L 98-107 H CARBON DIOXIDE (test code = CO2) MMOL/L 22-30 GLUCOSE (test code = GLU) MG/DL 74-106 BLOOD UREA NITROGEN (test code = MG/DL 7-17 BUN) GLOMERULAR FILTRATION RATE (test code = GFR) CREATININE (test code = CREAT) MG/DL 0.52-1.04 CALCIUM (test code = CA) MG/DL 8.7-9.7 BASIC METABOLIC [id number] 19:38:00 Test Item Value Reference Range Interpretation Comments SODIUM (test code = NA) MMOL/L 137-145 POTASSIUM (test code = K) MMOL/L 3.5-5.1 CHLORIDE (test code = CL) 117 MMOL/L 98-107 H CARBON DIOXIDE (test code = CO2) MMOL/L 22-30 GLUCOSE (test code = GLU) MG/DL 74-106 BLOOD UREA NITROGEN (test code = MG/DL 7-17 BUN) GLOMERULAR FILTRATION RATE (test code = GFR) CREATININE (test code = CREAT) MG/DL 0.52-1.04 CALCIUM (test code = CA) MG/DL 8.7-9.7 CBC W/AUTO [id number] 19:32:00 Test Item Value Reference Range Interpretation Comments WHITE BLOOD CELL (test code = 13.1 K/MM3 3.8-9.8 H WBC) RED BLOOD CELL (test code = 2.44 M/MM3 3.58-4.97 L RBC) HEMOGLOBIN (test code = HGB) 7.3 G/DL 11.2-14.9 L HEMATOCRIT (test code = HCT) 23.4 % 33.2-43.5 L MEAN CELL VOLUME (test code = 96 fL 80.7-99.1 N MCV) MEAN CELL HGB (test code = MCH) 29.9 pg 27.0-34.1 N MEAN CELL HGB CONCETRATION 31.2 % 32.2-35.7 L (test code = MCHC) RED CELL DISTRIBUTION WIDTH 14.1 % 12.1-15.2 N (test code = RDW) PLATELET COUNT (test code = 100 K/MM3 129-368 L PLT) MEAN PLATELET VOLUME (test code 10.5 fl 7.4-10.4 H = MPV) NEUTROPHIL % (test code = NT%) 72.6 % 43-75 N IMMATURE GRANULOCYTE % (test 0.7 % 0.0-2.0 N code = IG%) LYMPHOCYTE % (test code = LY%) 23.1 % 14-44 N MONOCYTE % (test code = MO%) 2.9 % 4-13 L EOSINOPHIL % (test code = EO%) 0.5 % 0-6 N BASOPHIL % (test code = BA%) 0.2 % 0-2 N NUCLEATED RBC % (test code = 0.0 % 0-1.0 N NRBC%) NEUTROPHIL # (test code = NT#) 9.50 K/mm3 2.0-7.6 H IMMATURE GRANULOCYTE # (test 0.09 x10 3/uL 0-0.03 H code = IG#) LYMPHOCYTE # (test code = LY#) 3.02 K/mm3 1.0-3.8 N MONOCYTE # (test code = MO#) 0.38 K/mm3 0.1-0.8 N EOSINOPHIL # (test code = EO#) 0.07 K/mm3 0.0-0.2 N BASOPHIL # (test code = BA#) 0.02 K/mm3 0.0-0.2 N NUCLEATED RBC # (test code = 0.00 K/mm3 0.0-0.1 N NRBC#) [id number] 18:06:00 Test Item Value Reference Range Interpretation Comments POTASSIUM (test code = K) 5.9 MMOL/L 3.5-5.1 H [id number] 18:06:00 Test Item Value Reference Range Interpretation Comments GLUCOSE (test code = GLU) 146 MG/DL 74-106 H [id number] 18:03:00 Test Item Value Reference Range Interpretation Comments POTASSIUM (test code = K) 5.9 MMOL/L 3.5-5.1 H [id number] 18:03:00 Test Item Value Reference Range Interpretation Comments GLUCOSE (test code = GLU) MG/DL 74-106 [id number] 17:57:00 Test Item Value Reference Range Interpretation Comments HEMOGLOBIN (test code = HGB) 7.2 G/DL 11.2-14.9 L [id number] 17:57:00 Test Item Value Reference Range Interpretation Comments HEMATOCRIT (test code = HCT) 22.9 % 33.2-43.5 L DIFFERENTIAL [id number] 17:03:00 Test Item Value Reference Range Interpretation Comments RBC MORPHOLOGY REQUIRED (test code = NORMAL RBCM) HYPERSEGMENTED POLYS (test code = FEW NONE HYPP) PLATELET ESTIMATE (test code = ADEQUATE ADEQUATE PLTEST) PLATELET MORPHOLOGY (test code = NORMAL NORMAL PLTMORPH) [id number] 17:03:00 Test Item Value Reference Range Interpretation Comments HEMOGLOBIN (test code = 4.5 G/DL 11.2-14.9 LL CALL ED TO FANCINA B HGB) SENIOR PROCESS CONTROL TECH & READBAC K ON 11/30/19 AT 162 5 BY Malachi Santamaria [id number] 17:03:00 Test Item Value Reference Range Interpretation Comments HEMATOCRIT (test code = 15.0 % 33.2-43.5 LL CALL ED TO FANCINA OR HCT) RN & READBACK O N 11/30/19 AT 162 5 BY Malachi Santamaria [id number] 16:36:00 Test Item Value Reference Range Interpretation Comments POTASSIUM (test code = K) MMOL/L 3.5-5.1 [id number] 16:36:00 Test Item Value Reference Range Interpretation Comments GLUCOSE (test code = GLU) 138 MG/DL 74-106 H [id number] 16:36:00 Test Item Value Reference Range Interpretation Comments POTASSIUM (test code = K) 5.0 MMOL/L 3.5-5.1 N [id number] 16:36:00 Test Item Value Reference Range Interpretation Comments GLUCOSE (test code = GLU) 138 MG/DL 74-106 H DIFFERENTIAL [id number] 16:28:00 Test Item Value Reference Range Interpretation Comments RBC MORPHOLOGY REQUIRED (test code = RBCM) PLATELET ESTIMATE (test code = PLTEST) ADEQUATE PLATELET MORPHOLOGY (test code = NORMAL PLTMORPH) [id number] 16:28:00 Test Item Value Reference Range Interpretation Comments HEMOGLOBIN (test code = 4.5 G/DL 11.2-14.9 LL CALL ED TO FANCINA B HGB) SENIOR PROCESS CONTROL TECH & READBAC K ON 11/30/19 AT 162 5 BY Malachi Santamaria [id number] 16:28:00 Test Item Value Reference Range Interpretation Comments HEMATOCRIT (test code = 15.0 % 33.2-43.5 LL CALL ED TO FANCINA OR HCT) RN & READBACK O N 11/30/19 AT 162 5 BY Malachi Santamaria DIFFERENTIAL [id number] 16:28:00 Test Item Value Reference Range Interpretation Comments RBC MORPHOLOGY REQUIRED (test code = RBCM) PLATELET ESTIMATE (test code = PLTEST) ADEQUATE PLATELET MORPHOLOGY (test code = NORMAL PLTMORPH) [id number] 16:28:00 Test Item Value Reference Range Interpretation Comments HEMOGLOBIN (test code = 4.5 G/DL 11.2-14.9 LL CALL ED TO FANCINA B HGB) SENIOR PROCESS CONTROL TECH & READBAC K ON 11/30/19 AT 162 5 BY Malachi Santamaria [id number] 16:28:00 Test Item Value Reference Range Interpretation Comments HEMATOCRIT (test code = 15.0 % 33.2-43.5 LL CALL ED TO FANCINA OR HCT) RN & READBACK O N 11/30/19 AT 162 5 BY Malachi Santamaria BASIC METABOLIC [id number] 13:26:00 Test Item Value Reference Range Interpretation Comments SODIUM (test code = 142 MMOL/L 137-145 N NA) POTASSIUM (test code = 3.7 MMOL/L 3.5-5.1 N K) CHLORIDE (test code = 108 MMOL/L 98-107 H CL) CARBON DIOXIDE (test 23 MMOL/L 22-30 N code = CO2) ANION GAP (test code = 15 MMOL/L 14-24 N GAP) GLUCOSE (test code = 109 MG/DL 74-106 H GLU) BLOOD UREA NITROGEN 19 MG/DL 7-17 H (test code = BUN) GLOMERULAR FILTRATION > 60 Report ing units: RATE (test code = GFR) ml/mi n/1.73 m2 (Modified MDRD Formula)Referen ce Range: > or = 6 0 ml/min/1.73 m2 CREATININE (test code 0.80 MG/DL 0.52-1.04 N = CREAT) CALCIUM (test code = 8.6 MG/DL 8.4-10.2 N CA) PLEASE CALL RESULTS TO PHONE #: [phone] [employer] METABOLIC [id number] 13:25:00 Test Item Value Reference Range Interpretation Comments SODIUM (test code = 142 MMOL/L 137-145 N NA) POTASSIUM (test code = 3.7 MMOL/L 3.5-5.1 N K) CHLORIDE (test code = 108 MMOL/L 98-107 H CL) CARBON DIOXIDE (test MMOL/L 22-30 code = CO2) GLUCOSE (test code = MG/DL 74-106 GLU) BLOOD UREA NITROGEN MG/DL 7-17 (test code = BUN) GLOMERULAR FILTRATION > 60 Report ing units: RATE (test code = GFR) ml/mi n/1.73 m2 (Modified MDRD Formula)Referen ce Range: > or = 6 0 ml/min/1.73 m2 CREATININE (test code 0.80 MG/DL 0.52-1.04 N = CREAT) CALCIUM (test code = MG/DL 8.7-9.7 CA) PLEASE CALL RESULTS TO PHONE #: [phone] [employer] [id number] 13:22:00 Test Item Value Reference Range Interpretation Comments SODIUM (test code = NA) MMOL/L 137-145 POTASSIUM (test code = K) MMOL/L 3.5-5.1 CHLORIDE (test code = CL) 108 MMOL/L 98-107 H CARBON DIOXIDE (test code = CO2) MMOL/L 22-30 GLUCOSE (test code = GLU) MG/DL 74-106 BLOOD UREA NITROGEN (test code = MG/DL 7-17 BUN) GLOMERULAR FILTRATION RATE (test code = GFR) CREATININE (test code = CREAT) MG/DL 0.52-1.04 CALCIUM (test code = CA) MG/DL 8.7-9.7 PLEASE CALL RESULTS TO PHONE #: [phone] [facility] METABOLIC [id number] 13:22:00 Test Item Value Reference Range Interpretation Comments SODIUM (test code = NA) 142 MMOL/L 137-145 N POTASSIUM (test code = K) 3.7 MMOL/L 3.5-5.1 N CHLORIDE (test code = CL) 108 MMOL/L 98-107 H CARBON DIOXIDE (test code = CO2) MMOL/L 22-30 GLUCOSE (test code = GLU) MG/DL 74-106 BLOOD UREA NITROGEN (test code = MG/DL 7-17 BUN) GLOMERULAR FILTRATION RATE (test code = GFR) CREATININE (test code = CREAT) MG/DL 0.52-1.04 CALCIUM (test code = CA) MG/DL 8.7-9.7 PLEASE CALL RESULTS TO PHONE #: [phone] W/AUTO [id number] 13:13:00 Test Item Value Reference Range Interpretation Comments WHITE BLOOD CELL (test code = 9.1 K/MM3 3.8-9.8 N WBC) RED BLOOD CELL (test code = 2.81 M/MM3 3.58-4.97 L RBC) HEMOGLOBIN (test code = HGB) 8.5 G/DL 11.2-14.9 L HEMATOCRIT (test code = HCT) 26.4 % 33.2-43.5 L MEAN CELL VOLUME (test code = 94 fL 80.7-99.1 N MCV) MEAN CELL HGB (test code = MCH) 30.2 pg 27.0-34.1 N MEAN CELL HGB CONCETRATION 32.2 % 32.2-35.7 N (test code = MCHC) RED CELL DISTRIBUTION WIDTH 13.2 % 12.1-15.2 N (test code = RDW) PLATELET COUNT (test code = 231 K/MM3 129-368 N PLT) MEAN PLATELET VOLUME (test code 10.4 fl 7.4-10.4 N = MPV) NEUTROPHIL % (test code = NT%) 61.0 % 43-75 N IMMATURE GRANULOCYTE % (test 0.3 % 0.0-2.0 N code = IG%) LYMPHOCYTE % (test code = LY%) 29.1 % 14-44 N MONOCYTE % (test code = MO%) 7.2 % 4-13 N EOSINOPHIL % (test code = EO%) 2.0 % 0-6 N BASOPHIL % (test code = BA%) 0.4 % 0-2 N NUCLEATED RBC % (test code = 0.0 % 0-1.0 N NRBC%) NEUTROPHIL # (test code = NT#) 5.52 K/mm3 2.0-7.6 N IMMATURE GRANULOCYTE # (test 0.03 x10 3/uL 0-0.03 N code = IG#) LYMPHOCYTE # (test code = LY#) 2.64 K/mm3 1.0-3.8 N MONOCYTE # (test code = MO#) 0.65 K/mm3 0.1-0.8 N EOSINOPHIL # (test code = EO#) 0.18 K/mm3 0.0-0.2 N BASOPHIL # (test code = BA#) 0.04 K/mm3 0.0-0.2 N NUCLEATED RBC # (test code = 0.00 K/mm3 0.0-0.1 N NRBC#) PLEASE CALL RESULTS TO PHONE #: [phone] [employer] 12 AB [id number] 18:12:00 Test Item Value Reference Range Interpretation Comments HIV 1 2 COMBO AG/AB SCREEN AB/AG NON REACTIVE NONREACTIVE (test code = [id number]) PROTHROMBIN [id number] 17:56:00 Test Item Value Reference Range Interpretation Comments PROTHROMBIN TIME 14.1 SECONDS 9.4-12.5 H PATIENT (test code = PTP) INTERNATIONAL NORMAL 1.3 The INR is to be RATIO (test code = used only for INR) monitoring oral anticoagulantth erap y. INDICATION I NR VALUE ---- ---- ---- -------1. Prophylaxis, de ep venous thrombos is, including hig h risk surgery. 2.0 - 3.0 2. Prophylaxis, de ep venous thrombos is, hip surgery, treatment for d eep venous thrombosis or pulmonary prevention of systemic emboli sm in patients wit h valvular heart disease, atrial fibrillation, tissue heart va lve, or acute myocar dial infarction. 2.0 - 3 .0 3. Mechanical prosthesis hear t valves, recurrent syste eric embolism. 3.0 - 4.5 PTT [id number] 17:56:00 Test Item Value Reference Range Interpretation Comments PTT ACTIVATED (test code = APTT) 35.0 SECONDS 25.1-36.5 N PLT RESPONSE TO [id number] 17:56:00 Test Item Value Reference Range Interpretation Comments PLT RESPONSE TO 324 PRU 194-418 N P2Y12 Result s PLAVIX (test code = Interpre tation: Test PLAVRES) results are in P2Y12 Reaction Units (PRU). Pre-Drug Refe rence Range is 194-41 8. Pre-drug platel et function estima allison the total possible platelet aggregation independent of P2Y12 inhibitor drugs . Values <194 cou ld be due to low HCT, low platelet count, or p resence of IIb/IIIa inhibi tors. Post-Drug Resu lts: Lower PRU levels are associated with expec mitzi antiplatelet ef fect. Values may be b elow the stated refe rence range. Studies show that patients wi th <230 PRU had fewer a dverse events. COMPREHENSIVE METABOLIC [id number] 17:40:00 Test Item Value Reference Range Interpretation Comments SODIUM (test code = 140 MMOL/L 137-145 N NA) POTASSIUM (test code 3.8 MMOL/L 3.5-5.1 N = K) CHLORIDE (test code = 103 MMOL/L 98-107 N CL) CARBON DIOXIDE (test 24 MMOL/L 22-30 N code = CO2) GLUCOSE (test code = 134 MG/DL 74-106 H GLU) BLOOD UREA NITROGEN 19 MG/DL 7-17 H (test code = BUN) GLOMERULAR FILTRATION 53 Report ing units: RATE (test code = ml/min/1.7 3 m2 GFR) (Modified MDRD Formula)Referen ce Range: > or = 6 0 ml/min/1.73 m2 CREATININE (test code 1.00 MG/DL 0.52-1.04 N = CREAT) TOTAL PROTEIN (test 8.2 G/DL 6.3-8.2 N code = PROT) ALBUMIN (test code = 4.6 G/DL 3.5-5.0 N ALB) CALCIUM (test code = 9.6 MG/DL 8.4-10.2 N CA) BILIRUBIN TOTAL (test 0.7 MG/DL 0.2-1.3 N Eltrom bopag code = BILT) Interference fo r Vitros Product TBil, BuBc: ======= ======= ======A ssay Eltrombop ag Analyte/ Max Observed Avg. Bias Concentratio n Concentration Concentration== ======= ======= ======= =======TBil 7 mg/dl TBil/ 1.2m g/dl +0.23mg.dl +0.20mg/dlBuBc 3.5mg/dl Bu/0.8mg/dl +0.25mg/dl +0.24mg/dlBuBc 7 mg/dl Bu/14.2mg/dl +0.38mg/dl +0.25mg/dlBuBc 5mg/dl Bc/0mg/dl +0.25mg/dl +0.15mg/dlBuBc 3.5mg/dl Bc/2.8mg/dl +0.25mg/dl +0.23mg/dl SGOT/AST (test code = 31 UNITS/L 14-36 N AST) SGPT/ALT (test code = 22 UNITS/L <35 ALT) ALKALINE PHOSPHATASE 95 UNITS/L 38-126 N (test code = ALKP) Specimen comments: if not done in the last 72 hoursLIPID PROFILE (CORONARY RISK)2019-11-29 17:40:00 Test Item Value Reference Range Interpretation Comments TRIGLYCERIDES (test 226 MG/DL TRIGLYCE RIDES code = TRIG) REFERENCE RANGE:Normal: < 150 mg/dLBorderline High: 150-199 mg/dLHi gh: 200-499 mg/dLVe ry High: >=500 mg/ dL CHOLESTEROL (test code 163 MG/DL <200 = CHOL) HDL CHOLESTEROL (test 47 MG/DL 40-59 N code = HDL) LIPOPROTEIN LDL (test 80 MG/DL 0-99 N code = LDL) OPTIMAL........ .<100 mg/dLNEAR OPTIMAL/ABOVE OPTIMAL........ .100-12 9 mg/dL BORDERLINE HIGH.........13 0-159 mg/dL HIGH.........16 0-189 mg/dL VERY HIGH...... ...>/= 190 mg/dL Specimen comments: if not done in the last 72 hours- XR CHEST [id number] 17:32:00[facility] : 1940 Sex: F Patient Name: JORGE A HORTA Unit No: [id number] EXAMS: CPT CODE: [id number] XR CHEST 1V [id number] EXAM: - XR CHEST 1V LOCATION: C3 HISTORY: Car diac/Heart Surgery COMPARISON: None available time of interpretation. FINDINGS: Single view of the chest. No indwelling lines or tubes. No pneumothorax. The lungs are clear without significant effusions. The mediastinal contours are unremarkable/unchanged. No acute osseous findings are present. IMPRESSION: No acute cardiopulmonary abnormality. at 1732 Reported and signed by: Malachi Dobbins MD CC: Tevin Samuels; Argelia JONES; Ramu Sutherland MD Technologist: Zoltan Low (RT) Transcrpt Date/Tm/Trnsp: 11/29/2019 (0949) [id number] Orig Print D/T: S: 11/29/2019 (9117) [facility] NAME: JORGE A HORTA [id number] [address] PHYS: [place] [address] : 1940 AGE: 79 SEX: F LOC: [id number] A PHONE #: [phone] EXAM DATE: 11/29/2019 STATUS: ADM IN FAX #: [phone] RADIOLOGY NO: PAGE 1 Signed ReportCOMPREHENSIVE METABOLIC [id number] 17:29:00 Test Item Value Reference Range Interpretation Comments SODIUM (test code = 140 MMOL/L 137-145 N NA) POTASSIUM (test code 3.8 MMOL/L 3.5-5.1 N = K) CHLORIDE (test code = 103 MMOL/L 98-107 N CL) CARBON DIOXIDE (test 24 MMOL/L 22-30 N code = CO2) GLUCOSE (test code = 134 MG/DL 74-106 H GLU) BLOOD UREA NITROGEN 19 MG/DL 7-17 H (test code = BUN) GLOMERULAR FILTRATION 53 Report ing units: RATE (test code = ml/min/1.7 3 m2 GFR) (Modified MDRD Formula)Referen ce Range: > or = 6 0 ml/min/1.73 m2 CREATININE (test code 1.00 MG/DL 0.52-1.04 N = CREAT) TOTAL PROTEIN (test 8.2 G/DL 6.3-8.2 N code = PROT) ALBUMIN (test code = 4.6 G/DL 3.5-5.0 N ALB) CALCIUM (test code = 9.6 MG/DL 8.4-10.2 N CA) BILIRUBIN TOTAL (test 0.7 MG/DL 0.2-1.3 N Eltrom bopag code = BILT) Interference fo r Vitros Product TBil, BuBc: ======= ======= ======A ssay Eltrombop ag Analyte/ Max Observed Avg. Bias Concentratio n Concentration Concentration== ======= ======= ======= =======TBil 7 mg/dl TBil/ 1.2m g/dl +0.23mg.dl +0.20mg/dlBuBc 3.5mg/dl Bu/0.8mg/dl +0.25mg/dl +0.24mg/dlBuBc 7 mg/dl Bu/14.2mg/dl +0.38mg/dl +0.25mg/dlBuBc 5mg/dl Bc/0mg/dl +0.25mg/dl +0.15mg/dlBuBc 3.5mg/dl Bc/2.8mg/dl +0.25mg/dl +0.23mg/dl SGOT/AST (test code = 31 UNITS/L 14-36 N AST) SGPT/ALT (test code = 22 UNITS/L <35 ALT) ALKALINE PHOSPHATASE 95 UNITS/L 38-126 N (test code = ALKP) Specimen comments: if not done in the last 72 hoursLIPID PROFILE (CORONARY RISK)2019-11-29 17:29:00 Test Item Value Reference Range Interpretation Comments TRIGLYCERIDES (test 226 MG/DL TRIGLYCE RIDES code = TRIG) REFERENCE RANGE:Normal: < 150 mg/dLBorderline High: 150-199 mg/dLHi gh: 200-499 mg/dLVe ry High: >=500 mg/ dL CHOLESTEROL (test code 163 MG/DL <200 = CHOL) HDL CHOLESTEROL (test 47 MG/DL 40-59 N code = HDL) LIPOPROTEIN LDL (test MG/DL 0-99 code = LDL) Specimen comments: if not done in the last 72 hoursCOMPREHENSIVE METABOLIC [id number] 17:28:00 Test Item Value Reference Range Interpretation Comments SODIUM (test code = NA) 140 MMOL/L 137-145 N POTASSIUM (test code = K) 3.8 MMOL/L 3.5-5.1 N CHLORIDE (test code = CL) 103 MMOL/L 98-107 N CARBON DIOXIDE (test code = CO2) 24 MMOL/L 22-30 N GLUCOSE (test code = GLU) MG/DL 74-106 BLOOD UREA NITROGEN (test code = MG/DL 7-17 BUN) GLOMERULAR FILTRATION RATE (test code = GFR) CREATININE (test code = CREAT) MG/DL 0.52-1.04 TOTAL PROTEIN (test code = PROT) G/DL 6.3-8.2 ALBUMIN (test code = ALB) 4.6 G/DL 3.5-5.0 N CALCIUM (test code = CA) MG/DL 8.7-9.7 BILIRUBIN TOTAL (test code = BILT) MG/DL 0.2-1.3 SGOT/AST (test code = AST) UNITS/L 15-37 SGPT/ALT (test code = ALT) UNITS/L <35 ALKALINE PHOSPHATASE (test code = UNITS/L 38-126 ALKP) Specimen comments: if not done in the last 72 hoursLIPID PROFILE (CORONARY RISK)2019-11-29 17:28:00 Test Item Value Reference Range Interpretation Comments TRIGLYCERIDES (test code = TRIG) MG/DL CHOLESTEROL (test code = CHOL) 163 MG/DL <200 HDL CHOLESTEROL (test code = HDL) MG/DL 40-59 LIPOPROTEIN LDL (test code = LDL) MG/DL 0-99 Specimen comments: if not done in the last 72 hoursGLYCOSYLATED HEMOGLOBIN [id number] 17:27:00 Test Item Value Reference Range Interpretation Comments GLYCOSYLATED 5.7 % 4.8-5.9 N Any condition t hat HEMOGLOBIN (HA1C) shortens e rythocyte (test code = survival or dec reasesmean GLYHGB) erythrocyte age (e.g., recovery from a cute blood loss,hemolytic anemia) will falsely lo wer HGBA1c resultsregardle ss of the method used. H GBA1c results from [facility] HbSS, HbCC, and HbSc must be interpreted with cautiongiven th e pathological pr ocesses, including anemia,increase d red cell turnover, trans fusion requirements, thatadversely i mpact HGBA1c as a mar ker of long-term glycemiccontrol . Alternative for ms of testing such as fructosaminesho uld be considered for these patients. MEAN BLOOD GLUCOSE 117 MG/DL 70-110 H (test code = MBG) COMPREHENSIVE METABOLIC [id number] 17:26:00 Test Item Value Reference Range Interpretation Comments SODIUM (test code = NA) 140 MMOL/L 137-145 N POTASSIUM (test code = K) 3.8 MMOL/L 3.5-5.1 N CHLORIDE (test code = CL) 103 MMOL/L 98-107 N CARBON DIOXIDE (test code = CO2) MMOL/L 22-30 GLUCOSE (test code = GLU) MG/DL 74-106 BLOOD UREA NITROGEN (test code = MG/DL 7-17 BUN) GLOMERULAR FILTRATION RATE (test code = GFR) CREATININE (test code = CREAT) MG/DL 0.52-1.04 TOTAL PROTEIN (test code = PROT) G/DL 6.3-8.2 ALBUMIN (test code = ALB) 4.6 G/DL 3.5-5.0 N CALCIUM (test code = CA) MG/DL 8.7-9.7 BILIRUBIN TOTAL (test code = BILT) MG/DL 0.2-1.3 SGOT/AST (test code = AST) UNITS/L 15-37 SGPT/ALT (test code = ALT) UNITS/L <35 ALKALINE PHOSPHATASE (test code = UNITS/L 38-126 ALKP) Specimen comments: if not done in the last 72 hoursLIPID PROFILE (CORONARY RISK)2019-11-29 17:26:00 Test Item Value Reference Range Interpretation Comments TRIGLYCERIDES (test code = TRIG) MG/DL CHOLESTEROL (test code = CHOL) MG/DL <200 HDL CHOLESTEROL (test code = HDL) MG/DL 40-59 LIPOPROTEIN LDL (test code = LDL) MG/DL 0-99 Specimen comments: if not done in the last 72 hoursCOMPREHENSIVE METABOLIC [id number] 17:25:00 Test Item Value Reference Range Interpretation Comments SODIUM (test code = NA) MMOL/L 137-145 POTASSIUM (test code = K) MMOL/L 3.5-5.1 CHLORIDE (test code = CL) 103 MMOL/L 98-107 N CARBON DIOXIDE (test code = CO2) MMOL/L 22-30 GLUCOSE (test code = GLU) MG/DL 74-106 BLOOD UREA NITROGEN (test code = MG/DL 7-17 BUN) GLOMERULAR FILTRATION RATE (test code = GFR) CREATININE (test code = CREAT) MG/DL 0.52-1.04 TOTAL PROTEIN (test code = PROT) G/DL 6.3-8.2 ALBUMIN (test code = ALB) G/DL 3.5-5.0 CALCIUM (test code = CA) MG/DL 8.7-9.7 BILIRUBIN TOTAL (test code = BILT) MG/DL 0.2-1.3 SGOT/AST (test code = AST) UNITS/L 15-37 SGPT/ALT (test code = ALT) UNITS/L <35 ALKALINE PHOSPHATASE (test code = UNITS/L 38-126 ALKP) Specimen comments: if not done in the last 72 hoursLIPID PROFILE (CORONARY RISK)2019-11-29 17:25:00 Test Item Value Reference Range Interpretation Comments TRIGLYCERIDES (test code = TRIG) MG/DL CHOLESTEROL (test code = CHOL) MG/DL <200 HDL CHOLESTEROL (test code = HDL) MG/DL 40-59 LIPOPROTEIN LDL (test code = LDL) MG/DL 0-99 Specimen comments: if not done in the last 72 hoursPROTHROMBIN TIME 2019-11-29 17:24:00 Test Item Value Reference Range Interpretation Comments PROTHROMBIN TIME 14.1 SECONDS 9.4-12.5 H PATIENT (test code = PTP) INTERNATIONAL NORMAL 1.3 The INR is to be RATIO (test code = used only for INR) monitoring oral anticoagulantth erap y. INDICATION I NR VALUE ---- ---- ---- -------1. Prophylaxis, de ep venous thrombos is, including hig h risk surgery. 2.0 - 3.0 2. Prophylaxis, de ep venous thrombos is, hip surgery, treatment for d eep venous thrombosis or pulmonary prevention of systemic emboli sm in patients wit h valvular heart disease, atrial fibrillation, tissue heart va lve, or acute myocar dial infarction. 2.0 - 3 .0 3. Mechanical prosthesis hear t valves, recurrent syste eric embolism. 3.0 - 4.5 PTT [id number] 17:24:00 Test Item Value Reference Range Interpretation Comments PTT ACTIVATED (test code = APTT) 35.0 SECONDS 25.1-36.5 N PLT RESPONSE TO [id number] 17:24:00 Test Item Value Reference Range Interpretation Comments PLT RESPONSE TO PLAVIX (test code = PRU 194-418 PLAVRES) CBC W/AUTO [id number] 17:14:00 Test Item Value Reference Range Interpretation Comments WHITE BLOOD CELL (test code = 9.2 K/MM3 3.8-9.8 N WBC) RED BLOOD CELL (test code = 3.29 M/MM3 3.58-4.97 L RBC) HEMOGLOBIN (test code = HGB) 10.1 G/DL 11.2-14.9 L HEMATOCRIT (test code = HCT) 31.5 % 33.2-43.5 L MEAN CELL VOLUME (test code = 96 fL 80.7-99.1 N MCV) MEAN CELL HGB (test code = MCH) 30.7 pg 27.0-34.1 N MEAN CELL HGB CONCETRATION 32.1 % 32.2-35.7 L (test code = MCHC) RED CELL DISTRIBUTION WIDTH 13.0 % 12.1-15.2 N (test code = RDW) PLATELET COUNT (test code = 257 K/MM3 129-368 N PLT) MEAN PLATELET VOLUME (test code 10.7 fl 7.4-10.4 H = MPV) NEUTROPHIL % (test code = NT%) 66.9 % 43-75 N IMMATURE GRANULOCYTE % (test 0.2 % 0.0-2.0 N code = IG%) LYMPHOCYTE % (test code = LY%) 23.7 % 14-44 N MONOCYTE % (test code = MO%) 5.2 % 4-13 N EOSINOPHIL % (test code = EO%) 3.6 % 0-6 N BASOPHIL % (test code = BA%) 0.4 % 0-2 N NUCLEATED RBC % (test code = 0.0 % 0-1.0 N NRBC%) NEUTROPHIL # (test code = NT#) 6.14 K/mm3 2.0-7.6 N IMMATURE GRANULOCYTE # (test 0.02 x10 3/uL 0-0.03 N code = IG#) LYMPHOCYTE # (test code = LY#) 2.18 K/mm3 1.0-3.8 N MONOCYTE # (test code = MO#) 0.48 K/mm3 0.1-0.8 N EOSINOPHIL # (test code = EO#) 0.33 K/mm3 0.0-0.2 H BASOPHIL # (test code = BA#) 0.04 K/mm3 0.0-0.2 N NUCLEATED RBC # (test code = 0.00 K/mm3 0.0-0.1 N NRBC#) Specimen comments: if not done in the last 72 hoursGLUCOSE BEDSIDE TESTING 2019-11-29 08:04:00 Test Item Value Reference Range Interpretation Comments GLUCOSE BEDSIDE TESTING (test code 112 MG/DL 60-99 H = GLUBED) T4 [id number] 17:37:00 Test Item Value Reference Range Interpretation Comments T4 FREE (test code = T4F) 1.3 NG/DL 0.78-2.19 N - CT ANGIO NECK W WO [id number] 17:37:00 [facility] 1940 Sex: F Patient Name: JORGE A HORTA Unit No: [id number] EXAMS: CPT CODE: [id number] CT ANGIO NECK W [place] CONT [id number] Examination: CTA head and neck with contrast. Location code: 60. TECHNIQUE: Multiple axial images of the head and neck were obtained after intravenous administration of contrast with sagittal and coronal reconstructions. MIP images wereobtained in the sagittal and coronal format. CT examination was performed using automated dose reduction. 100 mL of Isovue-370 contrast was injected intravenously. Creatinine measures 0.7. GFR is greater than 60. Discussion: Clinical history is significant for dizziness and blurred vision. The origin of both common carotid arteries and ve rtebral arteries are unremarkable. No flow limiting stenosis is identified. The remainder of both common carotid arteries are widely patent. There is no evidence for dissection. No flow limiting stenosis or thrombus is identified. Similarly both vertebral arteries are patent. At the carotid bifurcation bilaterally calcified plaque is identified. This produces approximately 40% stenosis on the right and approximately 60%-70% stenosis on the left. The remainder of the internal carotid arteries are otherwise widely patent. No flow limiting stenosis or intraluminal thrombus is identified. The remainder of both vertebral arteries are also widely patent. The basilar artery is patent. Mild calcified plaque is identifiedin the supraclinoid portions of both internal carotid arteries without flow-limiting stenosis. There is no evidence for aneurysm involving the anterior communicating artery, MCA bifurcation/trifurcation, basilar tip or posterior indicating arteries. There is no focal narrowing of the left posterior cerebral artery and its proximal portion of uncertain significance. The remainder of the posterior cerebral artery the left is widely patent. Theremainder the cerebral arteries are grossly unremarkable. No intraluminal thrombus is identified in the remainder the cerebral arteries. No abnormal enhancement is identifiedwith the brain after administration of contrast. Both parotid glands and submandibular glands are normal in appearance. No enlarged lymphadenopathy is noted. Thyroid gland is somewhat atrophic. Images through the lung apices reveals minimal biapical scarring. IMPRESSION: 1. 60-70% stenosis at the left carotid bulb which is borderline hemodynamically significant. 2. Approximately 40% stenosis of the proximal right internal carotid artery at the level of the carotid bulb. 3. Focal narrowing of the proximal left posterior cerebral artery. It is unclear if this is a an acute finding or a chronic finding. If signs and symptoms are referable to the left posterior cerebral artery [facility] NAME: JORGE A HORTA [id number] [address] PHYS: [id number] Ranjana De Los Santos MD [address] [address] : 1940 AGE: 79 SEX: F LOC: Z.355 A PHONE #: [phone] EXAM DATE: 11/27/2019 STATUS: ADM IN FAX #: [phone] RAD #: D/C DT PAGE 1 Signed Report (CONTINUED) Patient Name: JORGE A HORTA Unit No: [id number] EXAMS: CPT CODE: [id number] CT ANGIO NECK W [place] CONT [address]0469 <Continued> circulation conventional angiography is recommended for further evaluation. 4. Otherwise unremarkable CTA examination of brain. at 1737 Reported and signed by: nAthony Boyer MD CC: Ramu Sutherland MD; Rashid Son MD; Ranjana Mcclelland MD Technologist: Ana Maria Tovar RT (R) (CT) CTDI: DLP: Trnscrpt: 11/27/2019 (1737) t.SDR.VR5 [facility] NAME: JORGE A HORTA[address] PHYS: Ranjana Scott MD [address] [address] : 1940 AGE: 79 SEX: F LOC: Z.355 A PHONE #: [phone] EXAM DATE: 11/27/2019 STATUS: ADM IN FAX #: [phone] RAD #: D/C DT PAGE 2 Signed Report Patient Name: JORGE A HORTA Unit No: [id number] EXAMS: CPT CODE: [id number] CT ANGIO NECK W [place] CONT [address]99 <Continued> Orig Print D/T: S: 11/27/2019 (1740) [facility] NAME: JORGE A HORTA [id number] [address] PHYS: Ranjana Scott MD [address] [address] : 1940 AGE: 79 SEX: F LOC: Z.355 A PHONE #: [phone] EXAM DATE: 11/27/2019 STATUS: ADM IN FAX #: [phone] RAD #: D/C DT PAGE 3 Signed Report- CT ANGIO [id number] 17:37:00 [facility] : 1940 Sex: F Patient Name: JORGE A HORTA Unit No: [id number] EXAMS: CPT CODE: [id number] CT ANGIO HEAD [address] Examination: CTA head and neck with contrast. Location code: 60. TECHNIQUE: Multiple axial images of the head and neck were obtained after intravenous administration of contrast with sagittal and coronal reconstructions. MIP images wereobtained in the sagittal and coronal format. CT examination was performed using automated dose reduction. 100 mL of Isovue-370 contrast was injected intravenously. Creatinine measures 0.7. GFR is greater than 60. Discussion: Clinical history is significant for dizziness and blurred vision. The origin of both common carotid arteries and ve rtebral arteries are unremarkable. No flow limiting stenosis is identified. The remainder of both common carotid arteries are widely patent. There is no evidence for dissection. No flow limiting stenosis or thrombus is identified. Similarly both vertebral arteries are patent. At the carotid bifurcation bilaterally calcified plaque is identified. This produces approximately 40% stenosis on the right and approximately 60%-70% stenosis on the left. The remainder of the internal carotid arteries are otherwise widely patent. No flow limiting stenosis or intraluminal thrombus is identified. The remainder of both vertebral arteries are also widely patent. The basilar artery is patent. Mild calcified plaque is identifiedin the supraclinoid portions of both internal carotid arteries without flow-limiting stenosis. There is no evidence for aneurysm involving the anterior communicating artery, MCA bifurcation/trifurcation, basilar tip or posterior indicating arteries. There is no focal narrowing of the left posterior cerebral artery and its proximal portion of uncertain significance. The remainder of the posterior cerebral artery the left is widely patent. Theremainder the cerebral arteries are grossly unremarkable. No intraluminal thrombus is identified in the remainder the cerebral arteries. No abnormal enhancement is identifiedwith the brain after administration of contrast. Both parotid glands and submandibular glands are normal in appearance. No enlarged lymphadenopathy is noted. Thyroid gland is somewhat atrophic. Images through the lung apices reveals minimal biapical scarring. IMPRESSION: 1. 60-70% stenosis at the left carotid bulb which is borderline hemodynamically significant. 2. Approximately 40% stenosis of the proximal right internal carotid artery at the level of the carotid bulb. 3. Focal narrowing of the proximal left posterior cerebral artery. It is unclear if this is a an acute finding or a chronic finding. If signs and symptoms are referable to the left posterior cerebral artery [facility] NAME: JORGE A HORTA PHYS: Ranjana Scott MD [address] [id number] : 1940 AGE: 79 SEX: F LOC: Z.355 A PHONE #: [phone] EXAM DATE: 11/27/2019 STATUS: ADM IN FAX #: [phone] RAD #: D/C DT PAGE 1 Signed Report (CONTINUED) Patient Name: JORGE A HORTA Unit No: [id number] EXAMS: CPT CODE: [id number] CT ANGIO HEAD [address] <Continued> circulation conventional angiography is recommended for further evaluation. 4. Otherwise unremarkable CTA examination of brain. at 1737 Reported and signed by: Anthony Boyer MD CC: Ramu Sutherland MD; Rashid Son MD; Ranjana Mcclelland MD Technologist: Ana Maria Tovar RT (R) (CT) CTDI: DLP: Trnscrpt: 11/27/2019 (1737) t.SDR.VR5 [facility] NAME: JORGE A HORTA PHYS: [place] [address] : 1940 AGE: 79 SEX: F LOC: Z.355 A PHONE #: [phone] EXAM DATE: 11/27/2019 STATUS: ADM IN FAX #: [phone] RAD #: D/C DT PAGE 2 Signed Report Patient Name: JORGE A HORTA Unit No: [id number] EXAMS: CPT CODE: [id number] CT ANGIO HEAD [address] <Continued> Orig Print D/T: S: 11/27/2019 (1740) [facility] NAME: JORGE A HORTA PHYS: Ranjana Scott MD [address] [place] [address] : 1940 AGE: 79 SEX: F LOC: ZMikie A PHONE #: [phone] EXAM DATE: 11/27/2019 STATUS: ADM IN FAX #: [phone] RAD #: D/C DT PAGE 3 Signed ReportTSH REFLEX TO [id number] 17:02:00 Test Item Value Reference Range Interpretation Comments TSH REFLEX TO FT4 0.183 MIU/L 0.65-4.68 L Please be aware that (test code = bias results fo r TSH TSHREFLEX) may occur forpa tient who are taking Biotin supplements. C REACTIVE [id number] 16:34:00 Test Item Value Reference Range Interpretation Comments C REACTIVE PROTEIN (test code = 1.00 MG/DL 0.00-9.99 N CRP) - MRI BRAIN W/O [id number] 16:27:00 [facility] : 1940 Sex: F Patient Name: JORGE A HORTA Unit No: [id number] EXAMS: CPT CODE: [id number] MRI BRAIN W/O CONTRAST 09565 B2 - MRI BRAIN W/O CONTRAST HISTORY: TIA TECHNIQUE: Multiplanar multisequence MR images of the brain were obtained without intravenous contrast. COMPARISON: None FINDINGS: No abnormal brain parenchymal signal. There is no mass, mass effect or abnormal extra-axial fluid collection. Diffusion- weighted images show no hyperacute, acute or early subacute infarction. The ventricles are normal in size, shape, and position. There are normal signal voids in the larger intracranial vessels. The paranasal sinuses and mastoid air cellsare predominantly clear. The marrow signal pattern is within normal limits. IMPRESSION: No significant intracranial abnormalities. at 1627 Reported and signed by: Haresh Gross MD CC: Ramu Sutherland MD; Rashid Son MD Technologist: Debby Ceja(CT)(MRI) Transcrpt Date/Tm/Trnsp: 11/27/2019 (1627) [id number] Orig Print D/T: S: 11/27/2019 (1630) [facility] NAME: JORGE A HORTA [id number] [address] PHYS: [place] [address] : 1940 AGE: 79 SEX: F LOC: Z.355 A PHONE #: [phone] EXAM DATE: 11/27/2019 STATUS: ADM IN FAX #: [phone] RADIOLOGY NO: PAGE 1 Signed ReportGLUCOSE BEDSIDE [id number] 16:17:00 Test Item Value Reference Range Interpretation Comments GLUCOSE BEDSIDE TESTING (test code 118 MG/DL 60-99 H = GLUBED) BASIC METABOLIC [id number] 06:33:00 Test Item Value Reference Range Interpretation Comments SODIUM (test code = 139 MMOL/L 137-145 N NA) POTASSIUM (test code = 3.7 MMOL/L 3.5-5.1 N K) CHLORIDE (test code = 104 MMOL/L 98-107 N CL) CARBON DIOXIDE (test 28 MMOL/L 22-30 N code = CO2) GLUCOSE (test code = 115 MG/DL 74-106 H GLU) BLOOD UREA NITROGEN 14 MG/DL 7-17 N (test code = BUN) GLOMERULAR FILTRATION > 60 Report ing units: RATE (test code = GFR) ml/mi n/1.73 m2 (Modified MDRD Formula)Referen ce Range: > or = 6 0 ml/min/1.73 m2 CREATININE (test code 0.70 MG/DL 0.52-1.04 N = CREAT) CALCIUM (test code = 9.2 MG/DL 8.4-10.2 N CA) LIPID PROFILE (CORONARY RISK)2019-11-27 06:33:00 Test Item Value Reference Range Interpretation Comments TRIGLYCERIDES (test 172 MG/DL TRIGLYCE RIDES code = TRIG) REFERENCE RANGE:Normal: < 150 mg/dLBorderline High: 150-199 mg/dLHi gh: 200-499 mg/dLVe ry High: >=500 mg/ dL CHOLESTEROL (test code 155 MG/DL <200 = CHOL) HDL CHOLESTEROL (test 39 MG/DL 40-59 L code = HDL) LIPOPROTEIN LDL (test 90 MG/DL 0-99 N code = LDL) OPTIMAL........ .<100 mg/dLNEAR OPTIMAL/ABOVE OPTIMAL........ .100-12 9 mg/dL BORDERLINE HIGH.........13 0-159 mg/dL HIGH.........16 0-189 mg/dL VERY HIGH...... ...>/= 190 mg/dL [id number] 06:33:00 Test Item Value Reference Range Interpretation Comments MAGNESIUM (test code = MAG) 2.0 MG/DL 1.6-2.3 N BASIC METABOLIC [id number] 06:22:00 Test Item Value Reference Range Interpretation Comments SODIUM (test code = 139 MMOL/L 137-145 N NA) POTASSIUM (test code = 3.7 MMOL/L 3.5-5.1 N K) CHLORIDE (test code = 104 MMOL/L 98-107 N CL) CARBON DIOXIDE (test 28 MMOL/L 22-30 N code = CO2) GLUCOSE (test code = 115 MG/DL 74-106 H GLU) BLOOD UREA NITROGEN 14 MG/DL 7-17 N (test code = BUN) GLOMERULAR FILTRATION > 60 Report ing units: RATE (test code = GFR) ml/mi n/1.73 m2 (Modified MDRD Formula)Referen ce Range: > or = 6 0 ml/min/1.73 m2 CREATININE (test code 0.70 MG/DL 0.52-1.04 N = CREAT) CALCIUM (test code = 9.2 MG/DL 8.4-10.2 N CA) LIPID PROFILE (CORONARY RISK)2019-11-27 06:22:00 Test Item Value Reference Range Interpretation Comments TRIGLYCERIDES (test 172 MG/DL TRIGLYCE RIDES code = TRIG) REFERENCE RANGE:Normal: < 150 mg/dLBorderline High: 150-199 mg/dLHi gh: 200-499 mg/dLVe ry High: >=500 mg/ dL CHOLESTEROL (test code 155 MG/DL <200 = CHOL) HDL CHOLESTEROL (test 39 MG/DL 40-59 L code = HDL) LIPOPROTEIN LDL (test MG/DL 0-99 code = LDL) [id number] 06:22:00 Test Item Value Reference Range Interpretation Comments MAGNESIUM (test code = MAG) 2.0 MG/DL 1.6-2.3 N BASIC METABOLIC [id number] 06:21:00 Test Item Value Reference Range Interpretation Comments SODIUM (test code = 139 MMOL/L 137-145 N NA) POTASSIUM (test code = 3.7 MMOL/L 3.5-5.1 N K) CHLORIDE (test code = 104 MMOL/L 98-107 N CL) CARBON DIOXIDE (test 28 MMOL/L 22-30 N code = CO2) GLUCOSE (test code = 115 MG/DL 74-106 H GLU) BLOOD UREA NITROGEN 14 MG/DL 7-17 N (test code = BUN) GLOMERULAR FILTRATION > 60 Report ing units: RATE (test code = GFR) ml/mi n/1.73 m2 (Modified MDRD Formula)Referen ce Range: > or = 6 0 ml/min/1.73 m2 CREATININE (test code 0.70 MG/DL 0.52-1.04 N = CREAT) CALCIUM (test code = MG/DL 8.7-9.7 CA) LIPID PROFILE (CORONARY RISK)2019-11-27 06:21:00 Test Item Value Reference Range Interpretation Comments TRIGLYCERIDES (test code = TRIG) MG/DL CHOLESTEROL (test code = CHOL) 155 MG/DL <200 HDL CHOLESTEROL (test code = HDL) MG/DL 40-59 LIPOPROTEIN LDL (test code = LDL) MG/DL 0-99 [id number] 06:21:00 Test Item Value Reference Range Interpretation Comments MAGNESIUM (test code = MAG) MG/DL 1.6-2.3 BASIC METABOLIC [id number] 06:18:00 Test Item Value Reference Range Interpretation Comments SODIUM (test code = NA) 139 MMOL/L 137-145 N POTASSIUM (test code = K) 3.7 MMOL/L 3.5-5.1 N CHLORIDE (test code = CL) 104 MMOL/L 98-107 N CARBON DIOXIDE (test code = CO2) MMOL/L 22-30 GLUCOSE (test code = GLU) MG/DL 74-106 BLOOD UREA NITROGEN (test code = MG/DL 7-17 BUN) GLOMERULAR FILTRATION RATE (test code = GFR) CREATININE (test code = CREAT) MG/DL 0.52-1.04 CALCIUM (test code = CA) MG/DL 8.7-9.7 LIPID PROFILE (CORONARY RISK)2019-11-27 06:18:00 Test Item Value Reference Range Interpretation Comments TRIGLYCERIDES (test code = TRIG) MG/DL CHOLESTEROL (test code = CHOL) MG/DL <200 HDL CHOLESTEROL (test code = HDL) MG/DL 40-59 LIPOPROTEIN LDL (test code = LDL) MG/DL 0-99 [id number] 06:18:00 Test Item Value Reference Range Interpretation Comments MAGNESIUM (test code = MAG) MG/DL 1.6-2.3 GLYCOSYLATED HEMOGLOBIN [id number] 06:07:00 Test Item Value Reference Range Interpretation Comments GLYCOSYLATED 5.8 % 4.8-5.9 N Any condition t hat HEMOGLOBIN (HA1C) shortens e rythocyte (test code = survival or dec reasesmean GLYHGB) erythrocyte age (e.g., recovery from a cute blood loss,hemolytic anemia) will falsely lo wer HGBA1c resultsregardle ss of the method used. H GBA1c results from [facility] HbSS, HbCC, and HbSc must be interpreted with cautiongiven th e pathological pr ocesses, including anemia,increase d red cell turnover, trans fusion requirements, thatadversely i mpact HGBA1c as a mar ker of long-term glycemiccontrol . Alternative for ms of testing such as fructosaminesho uld be considered for these patients. MEAN BLOOD GLUCOSE 120 MG/DL 70-110 H (test code = MBG) PROTHROMBIN [id number] 06:03:00 Test Item Value Reference Range Interpretation Comments PROTHROMBIN TIME 15.1 SECONDS 9.4-12.5 H PATIENT (test code = PTP) INTERNATIONAL NORMAL 1.4 The INR is to be RATIO (test code = used only for INR) monitoring oral anticoagulantth erap y. INDICATION I NR VALUE ---- ---- ---- -------1. Prophylaxis, de ep venous thrombos is, including hig h risk surgery. 2.0 - 3.0 2. Prophylaxis, de ep venous thrombos is, hip surgery, treatment for d eep venous thrombosis or pulmonary prevention of systemic emboli sm in patients wit h valvular heart disease, atrial fibrillation, tissue heart va lve, or acute myocar dial infarction. 2.0 - 3 .0 3. Mechanical prosthesis hear t valves, recurrent syste eric embolism. 3.0 - 4.5 PTT [id number] 06:03:00 Test Item Value Reference Range Interpretation Comments PTT ACTIVATED (test code = APTT) 29.9 SECONDS 25.1-36.5 N CBC W/AUTO [id number] 05:52:00 Test Item Value Reference Range Interpretation Comments WHITE BLOOD CELL (test code = 9.5 K/MM3 3.8-9.8 N WBC) RED BLOOD CELL (test code = 3.30 M/MM3 3.58-4.97 L RBC) HEMOGLOBIN (test code = HGB) 9.9 G/DL 11.2-14.9 L HEMATOCRIT (test code = HCT) 31.1 % 33.2-43.5 L MEAN CELL VOLUME (test code = 94 fL 80.7-99.1 N MCV) MEAN CELL HGB (test code = MCH) 30.0 pg 27.0-34.1 N MEAN CELL HGB CONCETRATION 31.8 % 32.2-35.7 L (test code = MCHC) RED CELL DISTRIBUTION WIDTH 12.8 % 12.1-15.2 N (test code = RDW) PLATELET COUNT (test code = 217 K/MM3 129-368 N PLT) MEAN PLATELET VOLUME (test code 10.3 fl 7.4-10.4 N = MPV) NEUTROPHIL % (test code = NT%) 69.7 % 43-75 N IMMATURE GRANULOCYTE % (test 0.3 % 0.0-2.0 N code = IG%) LYMPHOCYTE % (test code = LY%) 20.6 % 14-44 N MONOCYTE % (test code = MO%) 7.4 % 4-13 N EOSINOPHIL % (test code = EO%) 1.8 % 0-6 N BASOPHIL % (test code = BA%) 0.2 % 0-2 N NUCLEATED RBC % (test code = 0.0 % 0-1.0 N NRBC%) NEUTROPHIL # (test code = NT#) 6.63 K/mm3 2.0-7.6 N IMMATURE GRANULOCYTE # (test 0.03 x10 3/uL 0-0.03 N code = IG#) LYMPHOCYTE # (test code = LY#) 1.96 K/mm3 1.0-3.8 N MONOCYTE # (test code = MO#) 0.70 K/mm3 0.1-0.8 N EOSINOPHIL # (test code = EO#) 0.17 K/mm3 0.0-0.2 N BASOPHIL # (test code = BA#) 0.02 K/mm3 0.0-0.2 N NUCLEATED RBC # (test code = 0.00 K/mm3 0.0-0.1 N NRBC#) B-TYPE NATRIURETIC [id number] 21:04:00 Test Item Value Reference Range Interpretation Comments B-TYPE NATRIURETIC PEPTIDE (test 205.0 PG/ML 0-100 H code = BNP) COMPREHENSIVE METABOLIC [id number] 21:03:00 Test Item Value Reference Range Interpretation Comments SODIUM (test code = 140 MMOL/L 137-145 N NA) POTASSIUM (test code 3.7 MMOL/L 3.5-5.1 N = K) CHLORIDE (test code = 105 MMOL/L 98-107 N CL) CARBON DIOXIDE (test 24 MMOL/L 22-30 N code = CO2) GLUCOSE (test code = 109 MG/DL 74-106 H GLU) BLOOD UREA NITROGEN 16 MG/DL 7-17 N (test code = BUN) GLOMERULAR FILTRATION > 60 Report ing units: RATE (test code = ml/min/1.7 3 m2 GFR) (Modified MDRD Formula)Referen ce Range: > or = 6 0 ml/min/1.73 m2 CREATININE (test code 0.70 MG/DL 0.52-1.04 N = CREAT) TOTAL PROTEIN (test 7.4 G/DL 6.3-8.2 N code = PROT) ALBUMIN (test code = 4.0 G/DL 3.5-5.0 N ALB) CALCIUM (test code = 9.5 MG/DL 8.4-10.2 N CA) BILIRUBIN TOTAL (test 0.5 MG/DL 0.2-1.3 N Eltrom bopag code = BILT) Interference fo r Vitros Product TBil, BuBc: ======= ======= ======A ssay Eltrombop ag Analyte/ Max Observed Avg. Bias Concentratio n Concentration Concentration== ======= ======= ======= =======TBil 7 mg/dl TBil/ 1.2m g/dl +0.23mg.dl +0.20mg/dlBuBc 3.5mg/dl Bu/0.8mg/dl +0.25mg/dl +0.24mg/dlBuBc 7 mg/dl Bu/14.2mg/dl +0.38mg/dl +0.25mg/dlBuBc 5mg/dl Bc/0mg/dl +0.25mg/dl +0.15mg/dlBuBc 3.5mg/dl Bc/2.8mg/dl +0.25mg/dl +0.23mg/dl SGOT/AST (test code = 28 UNITS/L 14-36 N AST) SGPT/ALT (test code = 18 UNITS/L <35 ALT) ALKALINE PHOSPHATASE 78 UNITS/L 38-126 N (test code = ALKP) [id number] 21:03:00 Test Item Value Reference Range Interpretation Comments TROPONIN-I (test code = TROPI) 0.043 NG/ML 0.012-0.033 H COMPREHENSIVE METABOLIC [id number] 20:53:00 Test Item Value Reference Range Interpretation Comments SODIUM (test code = 140 MMOL/L 137-145 N NA) POTASSIUM (test code 3.7 MMOL/L 3.5-5.1 N = K) CHLORIDE (test code = 105 MMOL/L 98-107 N CL) CARBON DIOXIDE (test 24 MMOL/L 22-30 N code = CO2) GLUCOSE (test code = 109 MG/DL 74-106 H GLU) BLOOD UREA NITROGEN 16 MG/DL 7-17 N (test code = BUN) GLOMERULAR FILTRATION > 60 Report ing units: RATE (test code = ml/min/1.7 3 m2 GFR) (Modified MDRD Formula)Referen ce Range: > or = 6 0 ml/min/1.73 m2 CREATININE (test code 0.70 MG/DL 0.52-1.04 N = CREAT) TOTAL PROTEIN (test 7.4 G/DL 6.3-8.2 N code = PROT) ALBUMIN (test code = 4.0 G/DL 3.5-5.0 N ALB) CALCIUM (test code = 9.5 MG/DL 8.4-10.2 N CA) BILIRUBIN TOTAL (test 0.5 MG/DL 0.2-1.3 N Eltrom bopag code = BILT) Interference fo r Vitros Product TBil, BuBc: ======= ======= ======A ssay Eltrombop ag Analyte/ Max Observed Avg. Bias Concentratio n Concentration Concentration== ======= ======= ======= =======TBil 7 mg/dl TBil/ 1.2m g/dl +0.23mg.dl +0.20mg/dlBuBc 3.5mg/dl Bu/0.8mg/dl +0.25mg/dl +0.24mg/dlBuBc 7 mg/dl Bu/14.2mg/dl +0.38mg/dl +0.25mg/dlBuBc 5mg/dl Bc/0mg/dl +0.25mg/dl +0.15mg/dlBuBc 3.5mg/dl Bc/2.8mg/dl +0.25mg/dl +0.23mg/dl SGOT/AST (test code = 28 UNITS/L 14-36 N AST) SGPT/ALT (test code = 18 UNITS/L <35 ALT) ALKALINE PHOSPHATASE 78 UNITS/L 38-126 N (test code = ALKP) [id number] 20:53:00 Test Item Value Reference Range Interpretation Comments TROPONIN-I (test code = TROPI) NG/ML 0.0-0.045 COMPREHENSIVE METABOLIC [id number] 20:52:00 Test Item Value Reference Range Interpretation Comments SODIUM (test code = 140 MMOL/L 137-145 N NA) POTASSIUM (test code 3.7 MMOL/L 3.5-5.1 N = K) CHLORIDE (test code = 105 MMOL/L 98-107 N CL) CARBON DIOXIDE (test 24 MMOL/L 22-30 N code = CO2) GLUCOSE (test code = 109 MG/DL 74-106 H GLU) BLOOD UREA NITROGEN 16 MG/DL 7-17 N (test code = BUN) GLOMERULAR FILTRATION > 60 Report ing units: RATE (test code = ml/min/1.7 3 m2 GFR) (Modified MDRD Formula)Referen ce Range: > or = 6 0 ml/min/1.73 m2 CREATININE (test code 0.70 MG/DL 0.52-1.04 N = CREAT) TOTAL PROTEIN (test 7.4 G/DL 6.3-8.2 N code = PROT) ALBUMIN (test code = 4.0 G/DL 3.5-5.0 N ALB) CALCIUM (test code = MG/DL 8.7-9.7 CA) BILIRUBIN TOTAL (test 0.5 MG/DL 0.2-1.3 N Eltrom bopag code = BILT) Interference fo r Vitros Product TBil, BuBc: ======= ======= ======A ssay Eltrombop ag Analyte/ Max Observed Avg. Bias Concentratio n Concentration Concentration== ======= ======= ======= =======TBil 7 mg/dl TBil/ 1.2m g/dl +0.23mg.dl +0.20mg/dlBuBc 3.5mg/dl Bu/0.8mg/dl +0.25mg/dl +0.24mg/dlBuBc 7 mg/dl Bu/14.2mg/dl +0.38mg/dl +0.25mg/dlBuBc 5mg/dl Bc/0mg/dl +0.25mg/dl +0.15mg/dlBuBc 3.5mg/dl Bc/2.8mg/dl +0.25mg/dl +0.23mg/dl SGOT/AST (test code = 28 UNITS/L 14-36 N AST) SGPT/ALT (test code = 18 UNITS/L <35 ALT) ALKALINE PHOSPHATASE 78 UNITS/L 38-126 N (test code = ALKP) [id number] 20:52:00 Test Item Value Reference Range Interpretation Comments TROPONIN-I (test code = TROPI) NG/ML 0.0-0.045 COMPREHENSIVE METABOLIC [id number] 20:51:00 Test Item Value Reference Range Interpretation Comments SODIUM (test code = 140 MMOL/L 137-145 N NA) POTASSIUM (test code 3.7 MMOL/L 3.5-5.1 N = K) CHLORIDE (test code = 105 MMOL/L 98-107 N CL) CARBON DIOXIDE (test MMOL/L 22-30 code = CO2) GLUCOSE (test code = MG/DL 74-106 GLU) BLOOD UREA NITROGEN MG/DL 7-17 (test code = BUN) GLOMERULAR FILTRATION > 60 Report ing units: RATE (test code = ml/min/1.7 3 m2 GFR) (Modified MDRD Formula)Referen ce Range: > or = 6 0 ml/min/1.73 m2 CREATININE (test code 0.70 MG/DL 0.52-1.04 N = CREAT) TOTAL PROTEIN (test G/DL 6.3-8.2 code = PROT) ALBUMIN (test code = 4.0 G/DL 3.5-5.0 N ALB) CALCIUM (test code = MG/DL 8.7-9.7 CA) BILIRUBIN TOTAL (test 0.5 MG/DL 0.2-1.3 N Eltrom bopag code = BILT) Interference fo r Vitros Product TBil, BuBc: ======= ======= ======A ssay Eltrombop ag Analyte/ Max Observed Avg. Bias Concentratio n Concentration Concentration== ======= ======= ======= =======TBil 7 mg/dl TBil/ 1.2m g/dl +0.23mg.dl +0.20mg/dlBuBc 3.5mg/dl Bu/0.8mg/dl +0.25mg/dl +0.24mg/dlBuBc 7 mg/dl Bu/14.2mg/dl +0.38mg/dl +0.25mg/dlBuBc 5mg/dl Bc/0mg/dl +0.25mg/dl +0.15mg/dlBuBc 3.5mg/dl Bc/2.8mg/dl +0.25mg/dl +0.23mg/dl SGOT/AST (test code = UNITS/L 15-37 AST) SGPT/ALT (test code = UNITS/L <35 ALT) ALKALINE PHOSPHATASE UNITS/L 38-126 (test code = ALKP) [id number] 20:51:00 Test Item Value Reference Range Interpretation Comments TROPONIN-I (test code = TROPI) NG/ML 0.0-0.045 COMPREHENSIVE METABOLIC [id number] 20:49:00 Test Item Value Reference Range Interpretation Comments SODIUM (test code = NA) 140 MMOL/L 137-145 N POTASSIUM (test code = K) 3.7 MMOL/L 3.5-5.1 N CHLORIDE (test code = CL) 105 MMOL/L 98-107 N CARBON DIOXIDE (test code = CO2) MMOL/L 22-30 GLUCOSE (test code = GLU) MG/DL 74-106 BLOOD UREA NITROGEN (test code = MG/DL 7-17 BUN) GLOMERULAR FILTRATION RATE (test code = GFR) CREATININE (test code = CREAT) MG/DL 0.52-1.04 TOTAL PROTEIN (test code = PROT) G/DL 6.3-8.2 ALBUMIN (test code = ALB) 4.0 G/DL 3.5-5.0 N CALCIUM (test code = CA) MG/DL 8.7-9.7 BILIRUBIN TOTAL (test code = BILT) MG/DL 0.2-1.3 SGOT/AST (test code = AST) UNITS/L 15-37 SGPT/ALT (test code = ALT) UNITS/L <35 ALKALINE PHOSPHATASE (test code = UNITS/L 38-126 ALKP) [id number] 20:49:00 Test Item Value Reference Range Interpretation Comments TROPONIN-I (test code = TROPI) NG/ML 0.0-0.045 CBC W/AUTO [id number] 20:40:00 Test Item Value Reference Range Interpretation Comments WHITE BLOOD CELL (test code = 11.4 K/MM3 3.8-9.8 H WBC) RED BLOOD CELL (test code = 3.66 M/MM3 3.58-4.97 N RBC) HEMOGLOBIN (test code = HGB) 11.0 G/DL 11.2-14.9 L HEMATOCRIT (test code = HCT) 35.2 % 33.2-43.5 N MEAN CELL VOLUME (test code = 96 fL 80.7-99.1 N MCV) MEAN CELL HGB (test code = MCH) 30.1 pg 27.0-34.1 N MEAN CELL HGB CONCETRATION 31.3 % 32.2-35.7 L (test code = MCHC) RED CELL DISTRIBUTION WIDTH 12.9 % 12.1-15.2 N (test code = RDW) PLATELET COUNT (test code = 222 K/MM3 129-368 N PLT) MEAN PLATELET VOLUME (test code 9.9 fl 7.4-10.4 N = MPV) NEUTROPHIL % (test code = NT%) 65.3 % 43-75 N IMMATURE GRANULOCYTE % (test 0.4 % 0.0-2.0 N code = IG%) LYMPHOCYTE % (test code = LY%) 24.8 % 14-44 N MONOCYTE % (test code = MO%) 7.5 % 4-13 N EOSINOPHIL % (test code = EO%) 1.4 % 0-6 N BASOPHIL % (test code = BA%) 0.6 % 0-2 N NUCLEATED RBC % (test code = 0.0 % 0-1.0 N NRBC%) NEUTROPHIL # (test code = NT#) 7.43 K/mm3 2.0-7.6 N IMMATURE GRANULOCYTE # (test 0.04 x10 3/uL 0-0.03 H code = IG#) LYMPHOCYTE # (test code = LY#) 2.82 K/mm3 1.0-3.8 N MONOCYTE # (test code = MO#) 0.85 K/mm3 0.1-0.8 H EOSINOPHIL # (test code = EO#) 0.16 K/mm3 0.0-0.2 N BASOPHIL # (test code = BA#) 0.07 K/mm3 0.0-0.2 N NUCLEATED RBC # (test code = 0.00 K/mm3 0.0-0.1 N NRBC#) ARTERIAL BLOOD [id number] 10:23:00 Test Item Value Reference Range Interpretation Comments ARTERIAL BLOOD GAS PH (test code 7.33 mmHg 7.35-7.45 L = PHA) ARTERIAL BLOOD GAS PCO2 (test 47.6 mmHg 35.0-45.0 H code = PCO2A) ARTERIAL BLOOD GAS PO2 (test code 79.8 mmol/L 80.0-100.0 L = PO2A) BICARBONATE TOTAL HCO3 (test code 24.8 mmol/L 20.0-26.0 N = HCO3) BASE EXCESS (test code = STEVEN) -1.6 mmol/L -3.0-3.0 N ABG O2 SATURATION (test code = 95.0 % 95.0-100.0 N SATA) ABG DELIVERY (test code = [place]) RM AIR ABG TEMPERATURE (test code = 37.0 C >37 TEMPA) ABG SITE (test code = SITEA) LINE ALLENS TEST (test code = ALLENS) NA CHECK FIO2 (test code = COHBGFFIO2) 21 % [id number] 10:23:00 Test Item Value Reference Range Interpretation Comments PaO2/FiO2 (test code = [id number]) mm/Hg ARTERIAL BLOOD [id number] 10:23:00 Test Item Value Reference Range Interpretation Comments ARTERIAL BLOOD GAS PH (test code 7.33 mmHg 7.35-7.45 L = PHA) ARTERIAL BLOOD GAS PCO2 (test 47.6 mmHg 35.0-45.0 H code = PCO2A) ARTERIAL BLOOD GAS PO2 (test code 79.8 mmol/L 80.0-100.0 L = PO2A) BICARBONATE TOTAL HCO3 (test code 24.8 mmol/L 20.0-26.0 N = HCO3) BASE EXCESS (test code = STEVEN) -1.6 mmol/L -3.0-3.0 N ABG O2 SATURATION (test code = 95.0 % 95.0-100.0 N SATA) ABG DELIVERY (test code = [place]) RM AIR ABG TEMPERATURE (test code = 37.0 C >37 TEMPA) ABG SITE (test code = SITEA) LINE ALLENS TEST (test code = ALLENS) NA CHECK FIO2 (test code = COHBGFFIO2) 21 % [id number]/[id number] 10:23:00 Test Item Value Reference Range Interpretation Comments PaO2/FiO2 (test code = [id number]) 380.00 mm/Hg VENOUS BLOOD [id number] 10:23:00 Test Item Value Reference Range Interpretation Comments VENOUS BLOOD GAS PH (test code = 7.32 7.35-7.45 L PHV) VENOUS BLOOD GAS PCO2 (test code 52.2 mmHg 35.0-45.0 H = PCO2V) VENOUS BLOOD GAS PO2 (test code = 37 mmHg <40 PO2V) VBG HCO3 (test code = HCO3V) 26 meq/L 20-26 N VBG BASE EXCESS (test code = BRISEIDA) -1.0 MMOL/L -3.0-3.0 N VENOUS BLOOD GAS OS SAT. (test 65 % 72-77 L code = O2SATV) FIO2 (test code = FIO2) 21 % VENOUS BLOOD GAS DELIVERY (test RM AIR code = DELV) VENOUS BLOOD GAS TEMP (test code 37.0 C = TEMPV) VENOUS BLOOD GAS SITE (test code LINE = SITEV) BASIC METABOLIC [id number] 08:33:00 Test Item Value Reference Range Interpretation Comments SODIUM (test code = 139 MMOL/L 137-145 N NA) POTASSIUM (test code = 4.2 MMOL/L 3.5-5.1 N K) CHLORIDE (test code = 102 MMOL/L 98-107 N CL) CARBON DIOXIDE (test 29 MMOL/L 22-30 N code = CO2) ANION GAP (test code = 12 MMOL/L 14-24 L GAP) GLUCOSE (test code = 116 MG/DL 74-106 H GLU) BLOOD UREA NITROGEN 23 MG/DL 7-17 H (test code = BUN) GLOMERULAR FILTRATION > 60 Report ing units: RATE (test code = GFR) ml/mi n/1.73 m2 (Modified MDRD Formula)Referen ce Range: > or = 6 0 ml/min/1.73 m2 CREATININE (test code 0.80 MG/DL 0.52-1.04 N = CREAT) CALCIUM (test code = 9.5 MG/DL 8.4-10.2 N CA) LIPID PROFILE (CORONARY RISK)[id number] 08:33:00 Test Item Value Reference Range Interpretation Comments TRIGLYCERIDES (test 158 MG/DL TRIGLYCE RIDES code = TRIG) REFERENCE RANGE:Normal: < 150 mg/dLBorderline High: 150-199 mg/dLHi gh: 200-499 mg/dLVe ry High: >=500 mg/ dL CHOLESTEROL (test code 170 MG/DL <200 = CHOL) HDL CHOLESTEROL (test 47 MG/DL 40-59 N code = HDL) LIPOPROTEIN LDL (test 95 MG/DL 0-99 N code = LDL) OPTIMAL........ .<100 mg/dLNEAR OPTIMAL/ABOVE OPTIMAL........ .100-12 9 mg/dL BORDERLINE HIGH.........13 0-159 mg/dL HIGH.........16 0-189 mg/dL VERY HIGH...... ...>/= 190 mg/dL [id number] 08:33:00 Test Item Value Reference Range Interpretation Comments MAGNESIUM (test code = MAG) 2.1 MG/DL 1.6-2.3 N BASIC METABOLIC [id number] 07:01:00 Test Item Value Reference Range Interpretation Comments SODIUM (test code = 139 MMOL/L 137-145 N NA) POTASSIUM (test code = 4.2 MMOL/L 3.5-5.1 N K) CHLORIDE (test code = 102 MMOL/L 98-107 N CL) CARBON DIOXIDE (test 29 MMOL/L 22-30 N code = CO2) ANION GAP (test code = 12 MMOL/L 14-24 L GAP) GLUCOSE (test code = 116 MG/DL 74-106 H GLU) BLOOD UREA NITROGEN 23 MG/DL 7-17 H (test code = BUN) GLOMERULAR FILTRATION > 60 Report ing units: RATE (test code = GFR) ml/mi n/1.73 m2 (Modified MDRD Formula)Referen ce Range: > or = 6 0 ml/min/1.73 m2 CREATININE (test code 0.80 MG/DL 0.52-1.04 N = CREAT) CALCIUM (test code = 9.5 MG/DL 8.4-10.2 N CA) LIPID PROFILE (CORONARY RISK)2019-11-25 07:01:00 Test Item Value Reference Range Interpretation Comments TRIGLYCERIDES (test 158 MG/DL TRIGLYCE RIDES code = TRIG) REFERENCE RANGE:Normal: < 150 mg/dLBorderline High: 150-199 mg/dLHi gh: 200-499 mg/dLVe ry High: >=500 mg/ dL CHOLESTEROL (test code 170 MG/DL <200 = CHOL) HDL CHOLESTEROL (test 47 MG/DL 40-59 N code = HDL) LIPOPROTEIN LDL (test MG/DL 0-99 code = LDL) [id number] 07:01:00 Test Item Value Reference Range Interpretation Comments MAGNESIUM (test code = MAG) 2.1 MG/DL 1.6-2.3 N PROTHROMBIN [id number] 06:54:00 Test Item Value Reference Range Interpretation Comments PROTHROMBIN TIME 14.2 SECONDS 9.4-12.5 H PATIENT (test code = PTP) INTERNATIONAL NORMAL 1.3 The INR is to be RATIO (test code = used only for INR) monitoring oral anticoagulantth erap y. INDICATION I NR VALUE ---- ---- ---- -------1. Prophylaxis, de ep venous thrombos is, including hig h risk surgery. 2.0 - 3.0 2. Prophylaxis, de ep venous thrombos is, hip surgery, treatment for d eep venous thrombosis or pulmonary prevention of systemic emboli sm in patients wit h valvular heart disease, atrial fibrillation, tissue heart va lve, or acute myocar dial infarction. 2.0 - 3 .0 3. Mechanical prosthesis hear t valves, recurrent syste eric embolism. 3.0 - 4.5 PTT [id number] 06:54:00 Test Item Value Reference Range Interpretation Comments PTT ACTIVATED (test code = APTT) 30.7 SECONDS 25.1-36.5 N CBC W/AUTO [id number] 06:43:00 Test Item Value Reference Range Interpretation Comments WHITE BLOOD CELL (test code = 7.8 K/MM3 3.8-9.8 N WBC) RED BLOOD CELL (test code = 3.76 M/MM3 3.58-4.97 N RBC) HEMOGLOBIN (test code = HGB) 11.3 G/DL 11.2-14.9 N HEMATOCRIT (test code = HCT) 35.7 % 33.2-43.5 N MEAN CELL VOLUME (test code = 95 fL 80.7-99.1 N MCV) MEAN CELL HGB (test code = MCH) 30.1 pg 27.0-34.1 N MEAN CELL HGB CONCETRATION 31.7 % 32.2-35.7 L (test code = MCHC) RED CELL DISTRIBUTION WIDTH 12.7 % 12.1-15.2 N (test code = RDW) PLATELET COUNT (test code = 250 K/MM3 129-368 N PLT) MEAN PLATELET VOLUME (test code 10.1 fl 7.4-10.4 N = MPV) NEUTROPHIL % (test code = NT%) 61.8 % 43-75 N IMMATURE GRANULOCYTE % (test 0.1 % 0.0-2.0 N code = IG%) LYMPHOCYTE % (test code = LY%) 25.4 % 14-44 N MONOCYTE % (test code = MO%) 8.0 % 4-13 N EOSINOPHIL % (test code = EO%) 3.9 % 0-6 N BASOPHIL % (test code = BA%) 0.8 % 0-2 N NUCLEATED RBC % (test code = 0.0 % 0-1.0 N NRBC%) NEUTROPHIL # (test code = NT#) 4.80 K/mm3 2.0-7.6 N IMMATURE GRANULOCYTE # (test 0.01 x10 3/uL 0-0.03 N code = IG#) LYMPHOCYTE # (test code = LY#) 1.97 K/mm3 1.0-3.8 N MONOCYTE # (test code = MO#) 0.62 K/mm3 0.1-0.8 N EOSINOPHIL # (test code = EO#) 0.30 K/mm3 0.0-0.2 H BASOPHIL # (test code = BA#) 0.06 K/mm3 0.0-0.2 N NUCLEATED RBC # (test code = 0.00 K/mm3 0.0-0.1 N NRBC#) COVID 19 Asymptomatic IH [id number] 05:46:00 Test Item Value Reference Range Interpretation Comments COVID 19 NEGATIVE Negative "Negative resul ts from Asymptomatic IH AG patients with symptom (test code = onset beyondfiv e days, COVNONPUIAG) should be renee mitzi as presumptive, andconfirmation with a molecular assay , if necessary forpa tient management may be performed. Nega tive results do notr ule out COVID-19 and sh ould not be used as the sole basisfor treatm ent or patient managem ent decisions, includinginfect ion control decisio ns. Negative result s should beconsidered in the context of a pa tients recent exposure s,history, and the presenc e of clinical signs and symptomsconsist ent with COVID-19.This t est detects both vi able andnon-viable S ARS-CoV and SARS CoV-2. Test performance dep endson the amount of virus (antigen) in the sample."
--- OUTSIDE RECORDS SUMMARY | 2020-02-22 18:51 | XMS REPORT | Summary of Care ---
:1940 Author Organization [facility] Address [address] [place] [id number] Care Team Providers Name Role Phone Kristen Montgomery MD Primary Care Provider [phone] Reason for Referral (Routine) Status Reason Specialty Diagnoses / Referred By Referred To Procedures Contact Contact New Request Geriatric Diagnoses Vomiting, intractability of vomiting not specified, presence of nausea not specified, unspecified vomiting type Acute cystitis without hematuria Purnima Chan, Medicine Procedures Discharge Follow-up: PCP KRISTEN MONTGOMERY; 3-5 Days (hospital follow-up for dehydration, poor PO intake, UTI ) MD Kristen Argueta MD [address] [facility] [id number] [place] [facility] 103 [address] [place], [place] Phone: [phone] Phone: MRI/CAT Scan (Routine) Status Reason Specialty Diagnoses / Referred By Referred To Procedures Contact Contact New Request Diagnostic Diagnoses Vomiting, intractability of vomiting not specified, presence of nausea not specified, unspecified vomiting type Purnima Chan Radiology Procedures CT ABDOMEN PELVIS W CONTRAST MD Ellie [address] [facility] [id number] [place] [address] Radiology Services (Routine) Status Reason Specialty Diagnoses / Referred By Referred To Procedures Contact Contact New Request Diagnostic Diagnoses Vomiting, intractability of vomiting not specified, presence of nausea not specified, unspecified vomiting type Cristopher Puri Radiology Procedures US RETROPERITONEAL LIMITED US ABDOMEN LIMITED Lan Mcfarlane MD [address] [place] [phone] Radiology Services (STAT) Status Reason Specialty Diagnoses / Referred By Referred To Procedures Contact Contact New Request Diagnostic Diagnoses Vomiting, intractability of vomiting not specified, presence of nausea not specified, unspecified vomiting type [facility] Radiology Procedures XR CHEST 1 VW S, PAC [address] [place] [address] Reason for Visit Reason Comments Weakness Auth/Cert Status Reason Specialty Diagnoses / Referred By Referred To Procedures Contact Contact Emergency Medicine [facility] [address] [place] [address] Fax: Encounter Details Date Type Department Care Team Description 02/03/2020 - Hospital Encounter Acute Care for the Merritt[facility]aniv lucas ya S, PAC [address] [place], [place] [id number] Urinary tract 02/08/2020 Elderly (JOSE LUIS 11D) Tu Lopez MD [address] [facility] [id number] [place] [address] infection, site not 712 [facility] Ailin Obrien MD [address] [place], [place] [address] [place] [address] Allergies Active Allergy Reactions Severity Noted Date Comments Morphine Sulfate Hallucinations 02/05/2020 CANNOT TA KE ANY TYPE OF MORPHINE documented as of this encounter (statuses as of 02/08/2020) Medications Medication Sig Dispensed Refills Start Date End Date Status aspirin 81 mg Take 81 mg by 0 Ac tive chewable tablet mouth daily. SERTraline 50 mg Take 1 tablet 90 tablet 3 11/17/2016 Active tabletIndications: by mouth Depression, daily. unspecified depression type mirtazapine 15 mg Take 15 mg by 0 Active tablet mouth at bedtime. sodium bicarbonate Take 650 mg by 0 Active 650 mg tablet mouth daily. metoprolol tartrate Take 25 mg by 0 Active 25 mg tablet mouth 2 (two) times daily. atorvastatin 40 mg Take 40 mg by 0 Active tablet mouth at bedtime. ferrous sulfate 325 Take 325 mg by 0 Active mg (65 mg iron) mouth every tablet evening. levothyroxine 125 Take 1 tablet 30 tablet 2 02/08/2020 02 Active mcg by mouth every 1 tabletIndications: morning for 90 Other specified days. hypothyroidism warfarin 1 mg Take 1 tablet 45 tablet 0 02/08/2020 A ctive tabletIndications: by mouth every 1 Hx of CABG, History other day in of mechanical aortic the evening valve replacement for 90 days. collagenase 250 Apply to 30 g 3 02/08/2020 Act [facility] unit/gram affected ointmentIndications: area(s) daily. Sacral decubitus ulcer, stage III sodium hypochlorite Apply to 1 L 3 02/08/2020 Active 0.025% Soln area(s) 2 1 solutionIndications: (two) times Sacral decubitus daily for 90 ulcer, stage III days. omeprazole 20 mg Take 1 capsule 90 capsule 0 02/08/2020 Active capsuleIndications: by mouth daily 1 Hx of CABG, History for 90 days. of mechanical aortic valve replacement simvastatin (ZOCOR) Take 20 mg by 0 Discontinued 40 mg tablet mouth at 0 bedtime. lisinopril-hydrochlo Take 1 tablet 0 02/07 Discontinued rothiazide by mouth 0 (PRINZIDE,ZESTORETIC daily. ) 10-12.5 mg per tablet levothyroxine 88 mcg Take 1 tablet 90 tablet 3 02/12/201701/10 Discontinued tabletIndications: by mouth every 0 Acquired morning. hypothyroidism traMADOL 50 mg Take 1 tablet 12 tablet 0 07/12/2018 Discontinued tabletIndications: by mouth every 0 Rotator cuff 8 (eight) disorder, left hours as needed for Pain (scale 7-10). etodolac 200 mg Take 1 capsule 24 capsule 0 07/12/2018 02 Discontinued capsuleIndications: by mouth every 0 Rotator cuff 8 (eight) disorder, left hours. warfarin 2 mg tablet Take 2 mg by 0 Discontinued mouth every 0 evening. enoxaparin (LOVENOX) inject 60 mg 0 Discontinued 60 mg/0.6 mL under the skin 0 injection every 12 (twelve) hours. megestroL 400 mg/10 Take 400 mg by 0 02/07 Discontinued mL (40 mg/mL) mouth daily. 0 suspension lisinopriL 5 mg Take 1 tablet 30 tablet 2 02/08/2020 Discontinued tabletIndications: by mouth daily 0 Hx of CABG, History for 90 days. of mechanical aortic valve replacement documented as of this encounter (statuses as of 02/08/2020) Active Problems Problem Noted Date Urinary tract infection, site not specified 02/04/2020 Acquired hypothyroidism 02/12/2017 High cholesterol Diet-controlled diabetes mellitus HTN (hypertension), benign Overview: follows with Dr. Anguiano. Bashir's palsy Other specified hypothyroidism documented as of this encounter (statuses as of 02/08/2020) Immunizations Name Administration Dates Next Due Influenza High Dose 11/19/2015 Pneumococcal 13 Conjugate, PCV13 (Prevnar 13) 11/19/2015 documented as of this encounter Social History Tobacco Use Types Packs/Day Years Used Date Never Smoker Smokeless Tobacco: Never Used Alcohol Use Drinks/Week oz/Week Comments No Sex Assigned at Date Recorded Not on file COVID-19 Exposure Response Date Recorded In the last month, have you been in contact with No / Unsure 02/03/2020 6:19 PM MANAGER STATISTICS someone who was confirmed or suspected to have Coronavirus / COVID-19? documented as of this encounter Last Filed Vital Signs Vital Sign Reading Time Taken Comments Blood Pressure 103/56 02/08/2020 12:00 PM MANAGER STATISTICS Pulse 82 02/08/2020 12:00 PM MANAGER STATISTICS Temperature 37.2 C (98.9 F) 02/08/2020 12:00 PM MANAGER STATISTICS Respiratory Rate 18 02/08/2020 12:00 PM MANAGER STATISTICS Oxygen Saturation 100% 02/08/2020 12:00 PM MANAGER STATISTICS Inhaled Oxygen Concentration - - Weight 57 kg (125 lb 10.6 oz) 02/05/2020 7:55 AM MANAGER STATISTICS Height - - Body Mass Index 21.57 11/17/2019 9:06 AM CDT documented in this encounter Discharge Instructions AttachmentsThe following attachments cannot be sent through Care Everywhere. Colostomy, Discharge Instructions for (Kosovan)Urinary Tract Infections (UTIs), Understanding (Algerian)documented in this encounter Progress Notes Sada Osorio RN - 02/08/2020 3:26 PM MANAGER STATISTICS Care Management Discharge Disposition Note (DCDN) 5-2-1 Interventions: Disease specific education;Intensive medication reconciliation/management;Teachback;Clear discharge plan;Home visit/home health referral -2-1 Providers: Physician;Record Changer Tester/Devulcanizer Tender;Nurse 5-2-1 Patient Capacity Improvements: Avoidance of adverse events/readmission Discharge Plan for ongoing care and services: Home Health () Patient Choice completed for referred services: Yes Discussed with patient/patients family involved in decision making: Patient or family caregiver understands, and agrees with discharge plan Patient's family or support contact: Lisha Putnam (daughter) [phone] Discharge Plan: Home Health () Receiving facility was provided the following clinical documentation at discharge- CM Facesheet, Consult notes, Labs, Progress Notes, MAR: DME location: Other DME location: Durable Medical Equipment: Home Health location: [address] P [phone] F [phone] Discharge location(s): Home Health location: [address] [phone] F [phone] Community resources/referrals made or provided to patient: Resources/Referrals: Mental Status: Alert & Oriented to Person,Place & Time Psychosocial issues and/or concerns resulting in patient being a high risk for re-admission: Manage ADL indepentdly: Yes Living Arrangement: Home Other living arrangement: Address of living arrangement: [address] [place] [address] Funding Resources: Medicare A & B;Supplement/Secondary Has patient been referred to [facility]/MedData? Nursing informed of discharge plan: CHP referral sent? CM medication request completed (if appropriate): PCP: Yes Kristen Montgomery Transportation: Private Vehicle Prior authorization obtained for ambulance: Authorization number: CPT code: Discharge Medications Will the patient be able to obtain his medications? Yes Does the patient have transportation to to obtain the prescription medications? Yes CM Medication Request completed (if appropriate): Yes Name of RN informed: DANILO Zuniga Expected discharge date: 02/08/2020 Time: Afternoon [30] Additional Information: Trever Sherman (spouse) [phone] will be picking patient up in POV to transport home on discharge CM offered to arrange for ambulance transportation for patient to her home, but spouse was already at hospital and other family was on their way to hospital and stated that they were planning on driving her home in their vehicle. Ambulance form is still pended in the communication tab if patient should need ambulance afterall. WILL/SUREKHA Name & Contact number: DANILO Wallace RN, BSN Manufacturing Machine Operator [facility]-Care Management [email or web address] Office: [phone] (not for patient use) The following information has been provided to the facility noted above: reason for the patient discharge or transfer; patients physical and psychosocial status; summary of care, treatment, servicesprovided to patient; and the patient progress toward goals. GER STATISTICS Sada Osorio RN - 02/08/2020 9:16 AM CSTCARE MANAGEMENT PROGRESS NOTE WILL spoke to patients daughter, Lisha Putnam, , regarding request for hospital bed, andshe states that the family does not have any room for a hospital bed at this time and they are really hoping that they will be able to get their mom up and walking again and won't need the hospital bed. WILL told her that if they patient gets home and they find that they need the bed, she can call within the next few days and I can still order the bed for them. That it's basically to help prevent theexacerbation of the sacral pressure ulcer and pain and to help with repositioning. Lisha also had some concerns regarding discharging of her mom. I suggested that she write any questions down that she has and address them with the primary team when they call her today, to be sure that any questions she has are met prior to discharge. She thanked WILL for the suggestion and plans todiscuss her concerns and questions with the team today. Sada Osorio RN, BSN Manufacturing Machine Operator [facility]-Care Management [email or web address] Office: [phone] (not for patient use) GER STATISTICS Ankita Mckay PTA - 02/08/2020 8:55 AM CSTPhysical Therapy Progress Note Recommendations Therapy Needs and Potential: Patient would benefit from continued physical therapy services to address: decline in bed mobility decline in transfers decline in gait and/or balance decline in stair/step negotiation decreased strength decreased endurance Patient demonstrates good potential to improve and meet therapy goals with further physical therapy services. Patient appears motivated to improve their functional mobility and return to their previous levelof function. Patient demonstrates ability to tolerate atleast 30-60 minutes of physical therapy with active participation. Challenges to Home Transition: increased risk of falls decreased caregiver availability Equipment recommendations: no new equipment needed PAIN no PRECAUTIONS Weight Bearing Precaution: NA General Precautions: Fall, N-95 mask, face shield, gown, gloves, Contact and Droplet Bracing/Cast present or required: NA S: Patient found in bed with RN present upon arrival and agreeable to working with PT. O: Patient seen and instruction provided for correct and safe performance of all the following functional tasks: Bed Mobility Supine -> sit Min A verbal/visual cueing provided for correct and safe performance patient able to return demo correctly with cueing and time task performed with HOB slightly elevated with ERP IMPLEMENTATION CONSULTANT and bed rails for trunk righting sitting static/dynamic balance: Fair Sit ->supine Mod A task performed with HOB slightly elevated Patient required LE assistance and trunk assistance to right to midline. Patient required mod A to scoot towards HOB with additional time given to perform task. Transfers Sit <-> Stand CGA X 3 verbal cueing provided for correct and safe use of AD during performance of all transfers patient able to return demo correctly with repetition and cueing task performed from/onto bed and recliner Patient c/o increased dizziness with standing requiring standing rest break prior to ambulation. standing static/dynamic balance: Good Additional time given to complete each trial to analyze patient's dizziness throughout Gait 8', 16' with Rolling Walker at [facility] patient presenting Step-to shuffle gait pattern with no LOB vc given to patient to maintain upright posture verbal and visual cueing provided for correct AD/step sequence Presented with unsteady gait from recliner to door / patient c/o dizziness Therapeutic Exercise Seated exercises -- 10 reps: AP, LAQ, marching provided patient with verbal and tactile cueing for correct technique to help focus on displayinggood control per rep stressed the importance of compliance with performance of all exercises throughout day to help with increasing overall strength, endurance, flexibility, and ROM Patient Teaching Functional Mobility and the importance/benefits of active and safe performance with OOB activities to help prevent BLE DVT's, PNA, overall decrease in mobility, strength, and endurance BLE Strengthening Exercises -- Verbal and visual comprehensive HEP program(s) provided along withdetailed instructions on how to safely perform all reps stressing the importance of establishing a consistent schedule to help with increasing overall strength and endurance Safety and Transfer training with use of appropriate AD Positive benefits of sitting upright at EOB or recliner throughout the day to help increase sitting tolerance and help reduce negative effects of immobility Patient initially left up in chair with patient unable to tolerate >8 min with c/o increased painin seated position thus patient transferred and left semi-reclined in bed. Call bashir provided with bed alarm on and RN notified. A: Patient progressing towards goals as expected. P: PT will progress with endurance, bed mobility, and transfers. Ankita Mckay PTA Supervising PT Cat Rinaldi, PT, DPT Total Timed Tx Codes in Minutes: 40 min Total Treatment Time in Minutes: 40 min GER STATISTICS Sada Osorio RN - 02/07/2020 9:49 AM CSTCARE MANAGEMENT PROGRESS NOTE CM reached out to Eleanor Renteria, RN, wound care nurse regarding possible resources for family for ostomysupply options and education. Family is very concerned about ostomy leaking and feels like they didn't get much education about the ostomy from the hospital where the patient got the ostomy created orwhere she was discharged from. They are having a lot of issues with leaking. WILL received communication back from Eleanor stating that she was out of the office the rest of the weekbut provided a web site from the [employer] site for education to provide to the family. [employer] [facility]/en/ostomycare/educationtools CM requested the bedside nurse, Giancarlo to educate the family at bedside on how to change the bag correctly and create a good seal so that they can be taught hands on how to do so. CM will provide theweb site mentioned above to the family as well. Sada Osorio RN, BSN Manufacturing Machine Operator [facility]-Care Management [email or web address] Office: [phone] (not for patient use) GER STATISTICS Sada Osorio RN - 02/06/2020 9:01 AM CSTCare Management Social Functional Assessment Patient Name: Claudette Sherman Age: [age] year old Sex: female Previous admit date: N/A CM spoke with patient/family at bedside to complete SFA. Role of Care Management explained. InitialCM screening and initial discharge plan established. CM anticipates patient to discharge to prior living situation and to be provided information on after care, medication management, and follow-ups prior to discharge. Patient's two sons were at bedside and discussed with CM in depth the concerns they had with patients discharge from LTAC and lack of education they received when she discharged home. They are very willing to learn and care for their mother and have other siblings and family members who are also willing to care for her but feel like they were not given the resources they needed to best care for her when she was discharged home. Prior to discharge, in order to prevent readmission, bedside teaching of patient care, ostomy care, catheter care would be in order with nursing allowing the family to watch, then do the care so that they feel comfortable and confident in the care that they will be giving to the patient on discharge. They are asking about different options for ostomy bags, adhesives, etc and CM suggested asking the wound care nurse when she is consulted as she can suggest what might work best for this patients particular situation. Any issues or concerns with obtaining/affording your medications at home: no. Are you or your support system able to cherry picker operator medications at discharge: yes. Describe: patient's family Current diagnosis and co-morbidities: No admission diagnoses are documented for this encounter. Readmission Questions: Was patient discharged from any acute care hospital within the last 30 days: Yes Were all questions regarding previous illness/diagnosis answered prior to discharge: No If No, comment: RAISA chong [facility], felt they lacked education on patient care Did you have any difficulties with your discharge instructions: Yes If Yes, comment: see above Were you able to go to your follow-up discharge appointments: Yes Any difficulties after discharge with medications: No Any difficulties after discharge with transportation: Yes If Yes, comment: difficulties with transfers in and out of vehicle Any difficulties after discharge with physical conditions, support, or other limitations?: No Did patient refuse services that were recommended on the previous admission: No Was patient non-compliant with the previously recommended treatment: No Social Functional Assessment: Primary language spoken/preferred: Kosovan Mental Status: Alert & Oriented to Person,Place & Time Information given by: Child Name and phone number of person giving information: Trever Sherman and other son present at bedside Patient's support system: Child;Spouse Name and number of support system: Trever Sherman (spouse) [phone], Lisha Putnam (daughter) [phone] and other children. Patient has very supportive family willing to care for her at home and learn all care needed. Primary Epic Beacon Specialists: Child Name and phone number of primary caregiver: All family supports and cares for patient. Lisha Lawson is emergency contact and primary contact. Living Arrangement: Home Address of living arrangement : [address] [place] [id number] Persons living in home: Self;Child;Spouse Names & numbers of persons living in home: Trever Sherman (spouse) [phone], Lisha Putnam (daughter) [phone] Baseline functional status- ambulation: Dependent Functional status-baseline personal care: Dependent Baseline functional status- driving: Dependent Baseline functional status- grocery shopping: Dependent Functional status-baseline housekeeping: Dependent Functional status-baseline meal prep: Dependent Current functional status same as prior: Yes Do you have a PCP?: Yes Name of PCP: Kristen Montgomery Home Health Care Agency: Yes Name of Home Health Agency: [address] [address] (Ph) [phone] (F) [phone] Previous or current Home Health Care Agency: Current Equipment: Walker Hemodialysis: No Prescription coverage plan: Other Other prescription coverage plan: [facility] Supplement Pharmacy where meds are filled: Other Other pharmacy: [facility] Anticipated services prior to disharge: Continue Medical Eval;Consult;Lab Values Expected mode of discharge transportation: Ambulance Additional Recommendations for DC: Bedside teaching for family on patient care, ostomy care, catheter care, etc. Additional info required for discharge planning: Pending medical evaluation;Pending P/T O/T recommendation Recommended discharge plan: Home SFA Complete: Social Functional Assessment complete: Yes Alcohol Use Screening (AUDIT-C) How often do you have a drink containing alcohol?: Never SCORE: 0 Sada Osorio RN, BSN Manufacturing Machine Operator [facility]-Care Management [email or web address] Office: [phone] (not for patient use) Malka Palmer MD - 02/05/2020 8:52 AM CSTBrief note: Patient brought home medication of metoprolol tartrate 25 mg BID with her. She was asking nursing tolet her take the medication. She reported that she only takes it once per day. She asked MD to call her who knows her medications. Told patient to not take her home medication and let the nursegive her what is ordered. Will call [facility] today for medication reconciliation. Malka Mendoza M.D. Department of Internal Medicine PGY-1, Perla Team Stefany Church DO - 02/04/2020 3:44 PM CSTBrief Progress Note: Hospital Course: Claudette Sherman is a 79 year old female with PMHx of hypothyroidism, HTN, CAD s/p CABG and ileus s/p colostomy presented as transfer from [facility] with weakness, abdominal pain and dysuria. She had abnormal UA and MAGDY, suspecting that her symptoms are from Sepsis 2/2 UTI. She was started on merrem for empiric treatment of her UTI. Patient was stable to be transferred to the floor. Family came to visit patient and stated that she may have a blood clot in her LE and may potentiallybe on lovenox and coumadin? was going to bring a list of her medications to review. Also, family stated she has poor PO intake and may have been on TPN at one point in time. Please follow up. Things to do: - [facility] records request - Review medication list with family - PO intake and possible need for TPN - On merrem, de-escalate when susceptibilities are back Stefany Mccallum DO Resident Physician neta Valdez MD - 02/03/2020 10:24 PM CSTWas called by ER 79 year-old female hx of cad s/p cabg, bowel obstruction presents with Weakness, decreased appetite/lethargy with b/p 80/47 map 55, subsequently diastolic b/p reading low 20-30's and MAP < 60's. Wbc 21 K, temp 99, lactic 2.79, magdy creak 3.31. trop 0.048 received iv fluid with map < 60's w/ diastolic 30's. cxr clear, u/a +. concern for severe sepsis sec to urosepsis -thus would need IMU status in light if no improved in b/p/need for pressor support, currently no imu bed available at [facility]. Aneta Valdez M.D. Internal Medicine Employee ID #: [id number] signed by Aneta Valdez MD at 02/03/2020 10:41 PM CSTdocumented in this encounter H&P Notes Cristopher Puri MD - 02/04/2020 5:20 AM CST Medicine Intensive Care History and Physical/ Transfer Note Date of Service: 02/04/2020 05:20 ICU day: 1 Intubation Day: 0 CHIEF COMPLAINT: lethargy, abdominal pain and dysuria History of Present Illness Claudette Sherman is a 79 year old female with PMHx of hypothyroidism, HTN, CAD s/p CABG and ileus s/p colostomy presented as transfer from [facility] with weakness, abdominal pain and dysuria. She states that she has mild lower abdominal pain, 5/10 in severity, non-radiating, associated with nausea and vomiting. She vomited 2-3 times in the last 24 hours. She reports having dysuria and darkening in her urine color. Of note, She was discharged from Rehab facility 4 days ago. She has had a number of medical conditions, procedures and illnesses over the past 3 months including a CABG, ileus, sepsis and colon obstruction with subsequent colon resection and ostomy placement. She has been on TPN until about a week agowhen she was weaned off to regular food. In the [facility] ED, afebrile, BP 80/47, HR 89, MAP 55. UA was remarkable for UTI. Cr 3.31, lactic acid 1.56. Received 3L bolus of NS. Started on Ceftriaxone 1g, meropenem 1g. Upon arrival, BP 105/57, HR 91,RR 17. She has merritt catheter the was placed 2 weeks ago. PAST MEDICAL HISTORY Past Medical History: Diagnosis Date Acquired hypothyroidism 02/12/2017 Bashir's palsy left side Diet-controlled diabetes mellitus not on any medication. states she is not diabetic anymore per PCP High cholesterol HTN (hypertension), benign follows with Dr. Anguiano. Other specified hypothyroidism PAST SURGICAL HISTORY Past Surgical History: Procedure Laterality Date BREAST LUMPECTOMY 07/08/2011 Was benign. COLONOSCOPY N/A 07/28/2017 Surgeon: Kale Lundberg MD; Location: [facility] OR [facility] HAMMERTOE CORRECTION Left 05/13/2018 Surgeon: Eran Umana DPM; Location: [facility] OR [facility] LEG/ANKLE SURGERY PROC UNLISTED Right 04/21/2013 Right ankle fracture with four screws placed. OTHER 05/05/2007 Eyelid was repaired. OTHER 1997 Knee surgery OTHER 2015 Hemorrhoid surgery RADICAL HYSTERECTOMY TOTAL ABDOM HYSTERECTOMY FAMILY HISTORY Family History Problem Relation Age of Onset Depression Mother Depression Sister several sisters. 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 Social Needs Financial resource strain: Not on file Food insecurity Worry: Not on file Inability: Not on file Transportation needs Medical: Not on file Non-medical: Not on file Tobacco Use Smoking status: Never Smoker Smokeless tobacco: Never Used Substance and Sexual Activity Alcohol use: No Drug use: No Sexual activity: Not on file Lifestyle Physical activity Days per week: Not on file Minutes per session: Not on file Stress: Not on file Relationships Social connections Talks on phone: Not on file Gets together: Not on file Attends restoration service: Not on file Active member of club or organization: Not on file Attends meetings of clubs or organizations: Not on file Relationship status: Not on file Intimate partner violence Fear of current or ex partner: Not on file Emotionally abused: Not on file Physically abused: Not on file Forced sexual activity: Not on file Other Topics Concern Not on file Social History Narrative Not on file ALLERGIES No Known Allergies REVIEW OF SYSTEMS (-)=Negative,(+)=Positive General: (+) chills, (+) weight loss, (+) fatigue Skin: (-) rash, (-) lesion HEENT: (-) headache, (-) change in hearing Neck: (-) pain, (-) difficulty swallowing, (-) mass Heme: (-) bleeding disorder Resp: (-) cough, (-) shortness of breath, (-) dyspnea on exertion Cardio: (-) chest pain, (-) palpitations, (-) syncope GI: (+) abdominal pain, (+) nausea, (+) vomiting, (-) diarrhea, (-) constipation : (+) dysuria, (-) hematuria, (-) increased frequency, (-) difficulty urinating, (-) difficulty initiating Endo: (-) heat intolerance, (-) diabetes, (-) cold intolerance, (-) polyuria, (- ) polydipsia Neuro: (-) numbness, (-) tingling, (-) weakness Back: (-) pain, (-)spasms TIESHA: (-) muscle pain, (-) joint pain, (-) claudication Psych: (-) anxiety, (-) depression, (-) psychiatric disorder PHYSICAL EXAMINATION Vitals: 02/04/20 0130 02/04/20 0207 02/04/20 0235 02/04/20 0500 BP: (!) 86/35 106/46 103/47 105/57 Pulse: 89 94 95 91 Resp: 13 17 16 17 Temp: 36.9 C (98.4 F) TempSrc: Tympanic SpO2: 97% 97% 98% 99% Weight: Constitutional: alert and oriented x 4 (person, place, date/time and situation); no apparent distress HEENT: pupils equal, round, reactive to light; extraocular movements intact; oropharynx clear; moistmucous membranes Neck: supple, no lymphadenopathy, no bruits, no JVD Resp: clear to auscultation bilaterally Cardio: regular rate and rhythm GI: soft, tender, bowel sounds, Ostomy in the left side : not examined Rectal: not examined MSK: no clubbing, cyanosis, or edema Integ: no rashes Neuro: cranial nerves II through XII grossly intact; sensation grossly intact; muscle strength 5 outof 5 in all four extremities Labs (pertinent only)/Imaging: Lactic acid: 1.56 Xr Chest 1 Vw Result Date: 02/03/2020 Moderate cardiomegaly, status post median sternotomy. No acute pulmonary process. No free air is seen under either hemidiaphragm to suggest pneumoperitoneum. RL: [id number] AFC: [id number] Microbiology: Blood: Pending Urine: Pending Assessment/Plan: Claudette Sherman is a 79 year old female admitted with UTI Neuro No active issue Resp No active issue SpO2 99 on room air Cardiovascular Type 2 [place] likely demand CAD s/p CABG Hypotension Patient has Hx of CAD s/p CABG 2019. Troponin is 0.048, likely demand ischemia. Received 3L of NS. - 1 L bolus NS - Hold BP meds - Trend troponin - EKG FEN/GI Nutrition: NPO ID UTI Patient has dysuria and lower abdominal pain. UA is remarkable for UTI with hypotension. - Urine Cx - Ceftriaxone 1g Renal MAGDY likely pre-renal Cr baseline is 0.84. likely 2/2 to intravascular fluid depletion. - Urine studies - 1 L NS Endo Hypothyroidism C/w home levothyroxine Other Sacral ulcer grade 3 - wound care DVT prophylaxis: heparin Lines/Catheters: Insertion date: PIV line 02/02 , Location: left Dispo: MICU Prognosis: Guarded Code Status: Presumed full Cristopher Puri M.D PGY1 Neurology Resident Doctor's number: [id number] Pager: [phone] GER STATISTICS Associated attestation - Tu Lopez MD - 02/04/2020 10:23 AM CSTAttending History Supplement: I personally examined the patient on 02/04/[address] the Dr.Abu- Arevalo's note as written .I actively participated in the decision-making process. Please see the resident's note for additional details. Claudette Sherman is a 79 year old female with severe sepsis 2/2 UTI and MAGDY. Continue with meropenem. Ok to tfr to floor. Issues; Severe sepsis MAGDY UTI Tu Lopez MD, MPH Professor & Director Division of Pulmonary Critical Care and Sleep Medicine Director [facility] [phone] in this encounter Consult Notes Cat Rinaldi, PT - 02/06/2020 1:35 PM CSTAssociated Order(s): CONSULT ADULT PHYSICAL THERAPY Patient agreeable to working with physical therapy. Patient met Semi reclined in bed. PHYSICAL THERAPY EVALUATION Consult received, chart reviewed and evaluation complete this date. Patient is referred to PT for evaluation and treatment. Patient is a 79 year old female who presents to hospital for dehydration. Pt has recently had a CABG, ileus, and ostomy creation. Pt's family provided translation. Pt seen in conjunction with Matheus Sagastume OT due to limited activity tolerance and medical complexity. Discharge Recommendations: Therapy Needs and Potential: Patient would benefit from continued physical therapy services to address: decline in bed mobility decline in transfers decline in gait and/or balance decline in stair/step negotiation decreased strength decreased endurance Patient demonstrates good potential to improve and meet therapy goals with further physical therapy services. Patient appears motivated to improve their functional mobility and return to their previous levelof function. Patient demonstrates ability to tolerate atleast 30-60 minutes of physical therapy with active participation. Challenges to Home Transition: increased risk of falls decreased caregiver availability Equipment recommendations: no new equipment needed Current Functional Status and/or Treatment:Functional mobility training, Transfer training, Gait training and Patient/Family/Caregiver education. Pt found semi-reclined in bed. Pt educated on role of PT and purpose of evaluation to assess OOB mobility. PT spoke with pt about the importance of mobilizing while within the hospital to prevent decline in functional status. Discussed the impact of prolonged hospitalization on general endurance and strength and importance of beginning to increase by sitting up in bed or in bedside chair. Discussed continuing therapy to prevent further decline in function. Educated to call for assistance with OOB mobility. Pt is highly motivated. Pt and family verbalizedunderstanding. Bed Mobility: Supine to sit: Moderate assist Scooting to edge of bed: SBA/Setup Sit to supine: Moderate assist. Pt cued to begin mobilizing towards EOB and was able to bring LE off bed, however required mod A for trunk mobility to get sitting EOB. When returning to semi-reclined, able to descend onto her R shoulder, however needed assistance with bilateral LE. Transfers: Sit to stand: CGA from EOB and mod A from lower chair using Rolling Walker Stand to sit: CGA using Rolling Walker, Pt cued for correct use of AD during transfers. Pt sat in low chair with no arms and required increased assistance to stand as had no place to push up. Ambulation: Assisted patient with ambulation as follows: 30 feet using Rolling Walker and CGA Patient presenting with Step-through gait pattern. Pt with good gait speed and stability. Pt withdizziness after amb 15' and therefore had to sit in chair. Pt's BP WNL, however HR noted to go up to140 with exertion. MD present when occurred. Therapeutic exercise: patient educated in Energy conservation, Fall prevention, General strengthening and Safety awareness. After session, patient Semi reclined in bed. Call button provided. Bed alarm on. PLAN OF CARE: At least 2 times per week, once or twice a day (while in hospital) per patient's tolerance and medical needs. See below for complete details. Admit Date: 02/03/2020 Hospital Diagnosis:No admission diagnoses are documented for this encounter. PT Diagnosis: Difficulty walking, Weakness and Malaise/fatigue Weight Bearing Precaution: NA General Precautions: PPE used:Gloves and Surgical mask, General, Fall,IV R UE Bracing/Cast present or required:N/A PMH: Past Medical History: Diagnosis Date Acquired hypothyroidism 02/12/2017 Bashir's palsy left side Diet-controlled diabetes mellitus not on any medication. states she is not diabetic anymore per PCP High cholesterol HTN (hypertension), benign follows with Dr. Anguiano. Other specified hypothyroidism PSH: Past Surgical History: Procedure Laterality Date BREAST LUMPECTOMY 07/08/2011 Was benign. COLONOSCOPY N/A 07/28/2017 Surgeon: Kale Lundberg MD; Location: [facility] OR Location HAMMERTOE CORRECTION Left 05/13/2018 Surgeon: Eran Umana DPM; Location: [facility] OR [facility] LEG/ANKLE SURGERY PROC UNLISTED Right 04/21/2013 Right ankle fracture with four screws placed. OTHER 05/05/2007 Eyelid was repaired. OTHER 1997 Knee surgery OTHER 2015 Hemorrhoid surgery RADICAL HYSTERECTOMY TOTAL ABDOM HYSTERECTOMY Prior Living Situation: lives with their spouse and house DME: Bed Side Commode, Axillary Crutches, Rolling Walker, shower chair, Wheel Chair Prior level of Mobility: community ambulation Subjective: Pt is typically highly independent until she underwent CABG in November 2019. Patient/Family Goals: return to PLOF Patient/Family verbalizes understanding of condition: Yes PAIN: denies pain COMMUNICATION Primary Language: Kosovan Able to Verbalize needs: Yes Vision:glasses Hearing:good; no issues reported ORIENTATION/COGNITION: Oriented to: person, place, date/time and situation Awake: Yes Alert: Yes Dizzy: Yes Follows Commands: Yes 1-Step Yes Multi-Step Yes Inconsistent: No NEUROLOGICAL Light Touch: within functional limits bilateral LE Heel to paul: NT Tone: NT BALANCE: Sitting: Static: Good Dynamic: Good Standing: Static: Good Dynamic: Fair+ RANGE OF MOTION: within functional limits bilateral LE STRENGTH: 4/5 (Good), bilateral LE ENDURANCE: Fair, Room air SKIN INTEGRITY: not intact, pt with sacral wound PROBLEM LIST: Decline in bed mobility, Decline in gait, Decline in transfers, Decreased strength, Decreased endurance, Decreased balance and Safety awareness deficits ASSESSMENT: Patient is a 79 year old female seen secondary to the above listed diagnosis. Patient would benefit from continued PT to address the above listed deficits to maximize independence and safety with functional mobility. Rehabilitation Potential: good Goals: The following goals are to maximize independence and safety with functional mobility to eventually return to prior living situation and prior functional status. Upon discharge, patient and/or family will demonstrate the followin. Supine to sit: Modified independent Sit to supine: Modified independent 2. Sit to stand: Modified independent using Rolling Walker Stand to sit: Modified independent using Rolling Walker 3. Modified independent with ambulation, Feet: 100 using least assistive device. Treatment Plan: Gait training, Gait training on stairs, Therapeutic exercise, Transfer training, Balance training, Bed mobility training, Equipment needs assessment, Safety education, patient/caregivereducation, Neuromuscular Re- Education and Functional Motor Training PATIENT EDUCATION: Patient provided with preferred teaching of verbal information on role of PT, plan of care, and information provided in treatment section. Shows readiness to learn. Verbal instruction teaching provided. Individual is able to read and verbalizes understanding of teaching provided. Total Time Tx Codes in Minutes: 15 min Total Treatment Time in Minutes: 32 min Cat Rinaldi, PT, DPT GER STATISTICS Esha Sagastume OT - 02/06/2020 1:31 PM CSTAssociated Order(s): CONSULT ADULT OCCUPATIONAL THERAPY OT GENERAL EVALUATION Consult received via BUX, EMR reviewed and evaluation completed 02/06/20. Patient referred to occupational therapy for evaluation and treatment discharge recommendations. Patient agreeable to participate in occupational therapy. Patient is an 79 YOF with recent history of CABG and ileus s/p colostomy. She discharged from an LTAC to home and was only home a few days before family brought her to the hospital for lethargy and weakness. Discharge Recommendations: Therapy Needs and Potential:- Patient would benefit from continued skilled occupational therapy services to address: Decline in basic activities of daily living, Decline in instrumental activities of daily living, Decreased strength and Decreased endurance - Patient demonstrates good potential to improve and meet therapy goals with further skilled occupational therapy services. - Patient appears motivated to improve their B/IADLs and return to their previous level of function. - Patient demonstrates ability to tolerate at least 30-60 minutes of active participation in occupational therapy. - Patient able to follow commands: 1-step Yes, Multi-step Yes, Inconsistencies No Challenges to Home Transition:- Requires physical assistance for BADLS - Requires physical assistance for IADLS - Increased risk of falls Equipment Recommendations:None PLAN OF CARE: At least 2x/week Precautions: Weight bearing status: NA General: PPE Utilized: Gloves and Surgical mask, IV, purewick, colostomy Bracing: N/A Current Occupational Performance and/or Treatment: Feeding: SBA/Setup Grooming: SBA/Setup functionally UB Dressing: Minimal assist with hospital gown LB Dressing: Moderate assist Toilet Transfer: Simulated Bed>stand>chair- Mod assist with RW from low surfaces Toileting Hygiene: Dependent Functional Mobility: supine to sit<>sit to supine- Mod assist, sit to stand-min assist from the bed but mod assist from lower surface, ambulation with RW-CGA Patient/caregiver educated on: ADL training, Fall prevention, General strengthening and Positioning Patient is very motivated and pleasant. She ambulated in room but had c/o dizziness with sitting upright and standing, then after resting c/o again after walking. Patient's vitals as follows: BP 131/53(73) HR 110-140's Spo2 97% on room air Patient instructed to return to bed due to c/o dizziness with elevating HR. MD in room during part of session and discussed medications with family. Patient seen in conjunction with Cat Rinaldi,PTsecondary to decreased activity tolerance, language barrier, and confusion. Patient left semireclining in bed with call bashir in reach. Heels floating. Patient about to eat per family and nursing to change sacral wound dressing soon. Patient declined off loading to R or L at this time, but family verbalized they can do it after she eats. Please, see full evaluation below for more detail. OT EVALUATION: 79 year old female Admit date: 02/03/2020 Date of onset: 02/03/2020 Admit Diagnosis: No admission diagnoses are documented for this encounter. OT Diagnosis: Impaired BADL independence, Impaired IADL independence, Weakness, Activity intolerance, Decreased endurance and Impaired self-care mobility PMH: Past Medical History: Diagnosis Date Acquired hypothyroidism 02/12/2017 Bashir's palsy left side Diet-controlled diabetes mellitus not on any medication. states she is not diabetic anymore per PCP High cholesterol HTN (hypertension), benign follows with Dr. Anguiano. Other specified hypothyroidism PSH: Past Surgical History: Procedure Laterality Date BREAST LUMPECTOMY 07/08/2011 Was benign. COLONOSCOPY N/A 07/28/2017 Surgeon: Kale Lundberg MD; Location: [facility] OR [facility] HAMMERTOE CORRECTION Left 05/13/2018 Surgeon: Eran Umana DPM; Location: [facility] OR [facility] LEG/ANKLE SURGERY PROC UNLISTED Right 04/21/2013 Right ankle fracture with four screws placed. OTHER 05/05/2007 Eyelid was repaired. OTHER 1997 Knee surgery OTHER 2015 Hemorrhoid surgery RADICAL HYSTERECTOMY TOTAL ABDOM HYSTERECTOMY PAIN: Before assessment: unrated/10 After assessment: unrated/10 Location: IV site where she is receiving potassium Pain Management: Repositioning Provided OCCUPATIONAL ROLES/HOME ENVIRONMENT: Home environment: Single story home with spouse and her family stays with them 31/08. Bathroom access: Yes Bathroom setup: Shower Occupation(s): Retired Function prior to admission: Community ambulation and Independent with BADLs prior to heart surgery ~ 2 months ago. She has since had a progressive decline and was only home for a short stay. Equipment prior to admission: WC, RW, shower chair, grab bars, and BSC PERFORMANCE SKILLS/FACTORS: UE Muscle Tone: bilateral WNL UE ROM: bilateral AROM WFL UE Strength: SKY UE WFL Hand dominance: bilateral Dexterity/Coordination: bilateral Fine motor skills Intact and bilateral Gross motor skills Intact Endurance - Sitting: Fair+ Standing: Fair Sitting Balance - Static: Good Dynamic: Good Standing: Balance - Static Good Dynamic: Fair+ Dizziness: Yes Skin Integrity: defer to nursing. Patient with known sacral wound. Sensation: bilateral Intact to light touch Oral Motor: WFL Communication: Able to verbalize needs Yes Other: Kosovan speaking. Daughter and grand daughter provided translation. Vision: WFL Yes Other: glasses or contacts, and L eye droop from previous Bashir's palsy Hearing: good; no issues reported COGNITION: Orientation: person and place Follows Commands: 1-step Yes Multi-step Yes Inconsistencies No Safety Awareness/Judgment: Fair, impulsive PROBLEM LIST: Decreased independence with ADL, Impaired postural control, Decreased functional ROM, Decreased strength/endurance for functional activity and Impaired safety awareness REHAB POTENTIAL/PROGNOSIS: good PATIENT/FAMILY GOALS: To go home and feel better. TREATMENT/INTERVENTION PLAN: Functional motor treatment, Patient/Caregivier Education, Equipment recommendations, Daily living activities and Therapeutic exercises GOAL(S): By discharge, patient will increase independence in daily living skills as follows: 1 Patient will perform toilet transfer with modified independence. 2 Patient will perform LB dressing with modified independence. 3 Patient will complete grooming tasks with modified independence while standing at the sink. 4 Patient will increase endurance for functional activity as evidenced by ability to sustain 20 minutes of active participation. 5 Patient/caregiver will verbalize/demonstrate understanding/proficiency in the following home programs: ADL training, Fall prevention and General strengthening PATIENT-FAMILY TEACHING Patient provided with preferred teaching of verbal information on ADL training, Fall prevention, General strengthening and Positioning. Shows readiness to learn. Verbal instruction teaching provided. Individual is able to read and verbalizes understanding of teaching provided. ALYSSA Rothman Total Timed Treatment Codes: 23 Min Total Treatment Time: 38 Min Patient Complexity Level High - An occupational therapy evaluation of high complexity was completed using the above tests and measures. The following information was obtained: An occupational profile and medical and therapy history, including review of medical and/or therapy records and extensive ashley tional review of physical, cognitive, or psychosocial history related to current functional performance, Various standardized and non-standardized assessments were used to identify at least 5 or more performance deficits related to physical, cognitive, or psychosocial skills that result in activity limitations and/or participation restrictions and Clinical decision-making is of high analytic complexity, which includes an analysis of the patient profile, analysis of data from comprehensive assessment(s), and consideration of multiple treatment options. Patient present with comorbidities that affect occupational performance. Significant modification of tasks or assistance (e.g., physical or verbal) with assessment(s) is necessary to enable patient to complete evaluation component. GER STATISTICS Chhaya Rendon - 02/06/2020 12:22 PM CSTAssociated Order(s): CONSULT FOOD AND NUTRITION Medical Nutrition Therapy- Consult Note: Reason For Consultation: Physician consult: Please give recommendation or opinion on: 79 year old female s/p CABG at OSH with complicated post-operative course that resulted in ischemic bowel and colostomy placement. Now presenting s/p nausea/vomiting/confusion and recent onset of loss of appetite and poor PO intake. History of Present Illness: Claudette Sherman is a 79 year old female with PMHx of hypothyroidism, HTN,CAD s/p CABG and ileus s/p colostomy presented as transfer from [facility] with weakness, abdominal pain and dysuria. She states that she has mild lower abdominal pain, 5/10 in severity, non-radiating, associated with nausea and vomiting. She vomited 2-3 times in the last 24 hours. She reports having dysuria and darkening in her urine color. Of note, She was discharged from Rehab facility 4 days ago. She has had a number of medical conditions, procedures and illnesses over the past 3 months including a CABG, ileus, sepsis and colon obstruction with subsequent colon resection and ostomy placement. She has been on TPN until about a week agowhen she was weaned off to regular food. PMH/PSH: Past Medical History: Diagnosis Date Acquired hypothyroidism 02/12/2017 Bashir's palsy left side Diet-controlled diabetes mellitus not on any medication. states she is not diabetic anymore per PCP High cholesterol HTN (hypertension), benign follows with Dr. Anguiano. Other specified hypothyroidism Past Surgical History: Procedure Laterality Date BREAST LUMPECTOMY 07/08/2011 Was benign. COLONOSCOPY N/A 07/28/2017 Surgeon: Kale Lundberg MD; Location: [facility] OR Location [place] CORRECTION Left 05/13/2018 Surgeon: Eran Umana DPM; Location: [facility] OR [facility] LEG/ANKLE SURGERY PROC UNLISTED Right 04/21/2013 Right ankle fracture with four screws placed. OTHER 05/05/2007 Eyelid was repaired. OTHER 1997 Knee surgery OTHER 2015 Hemorrhoid surgery RADICAL HYSTERECTOMY TOTAL ABDOM HYSTERECTOMY PSH noted. GI and Nutrition Related Findings: Symptoms: Nausea Difficulty: N/A GI tract alteration: Ostomy Alternative means of nutrition: N/A General: N/A Medications: I have reviewed the medications currently ordered in the EMR located under the medications andMAR tabs. Current medications include: Current Facility-Administered Medications: KCL (POTASSIUM CHLORIDE) 40 mEq in NaCl 0.9% (NS) piggyback, 40 mEq, IV Piggyback, ONCE, Deb Us MD metoprolol tartrate (LOPRESSOR) half tablet 12.5 mg, 12.5 mg, Oral, BID, Malka Mendoza MD collagenase (SANTYL) ointment, , Topical (Apply To Affected Areas), DAILY, Deb Us MD, Applied at 02/06/20 0831 sodium hypochlorite 0.025% (Dakin's) solution, , Topical, BID, Deb Us MD, Applied at 02/06/20 0831 warfarin (COUMADIN) tablet 1 mg, 1 mg, Oral, DAILY AT 1700, Deb Us MD, 1 mg at 02/05/20 1810 acetaminophen (TYLENOL) tablet 650 mg, 650 mg, Oral, Q6HPRN, Marissa Bee MD, 650 mg at 02/04/20 2153 aspirin chewable tablet 81 mg, 81 mg, Oral, DAILY, Cristopher Puri MD, 81mg at 02/06/20 0831 atorvastatin (LIPITOR) tablet 40 mg, 40 mg, Oral, QHS, Marissa Bee MD, 40 mg at 02/05/20 2150 dextrose 50 % in water (D50W) injection 25 mL, 25 mL, Slow IV Push, PRN, Cristopher Puri MD ferrous sulfate tablet 325 mg, 325 mg, Oral, QPM, Marissa Bee MD, 325 mg at 02/05/20 1632 glucagon (GLUCAGEN DIAGNOSTIC KIT) injection 1 mg, 1 mg, Intramuscular, PRN, Cristopher Puri MD levothyroxine (SYNTHROID) tablet 100 mcg, 100 mcg, Oral, QAM-0600, Marissa Bee MD, 100 mcg at 02/06/20 0846 meropenem (MERREM) 1,000 mg in NaCl 0.9% (NS) 100 mL IV piggyback, 1,000 mg, IV Piggyback, [id number], Marissa Bee MD, 1,000 mg at 02/06/20 0755 mirtazapine (REMERON) tablet 15 mg, 15 mg, Oral, QHS, Marissa Bee MD, 15 mg at 02/05/20 2150 sodium bicarbonate (ANTACID (SODIUM BICARBONATE)) tablet 650 mg, 650 mg, Oral, DAILY, Marissa Bee MD, 650 mg at 02/06/20 0831 Lab and Medical Test Results: NA (mmol/L) Date Value 02/06/2020 134 (L) K (mmol/L) Date Value 02/06/2020 3.2 (L) CALCIUM (mg/dL) Date Value 02/06/2020 8.1 (L) CL (mmol/L) Date Value 02/06/2020 105 BUN (mg/dL) Date Value 02/06/2020 26 (H) CREATININE (mg/dL) Date Value 02/06/2020 0.95 GLUCOSE (mg/dL) Date Value 02/06/2020 104 CO2 TOTAL (mmol/L) Date Value 02/06/2020 20 (L) ALBUMIN (g/dL) Date Value 11/26/2019 3.8 T PROTEIN (g/dL) Date Value 11/26/2019 6.7 TOTAL BILI (mg/dL) Date Value 11/26/2019 0.6 BILI UNCON (mg/dL) Date Value 11/26/2019 0.5 BILI CONJ (mg/dL) Date Value 11/26/2019 0.0 ALT(SGPT) (U/L) Date Value 07/12/2018 25 ALTv (U/L) Date Value 11/26/2019 17 AST(SGOT) (U/L) Date Value 11/26/2019 25 ALK PHOS (U/L) Date Value 11/26/2019 60 Nutrition Assessment: Age: [age] year old Sex: female Ht: 162.6 cm / 5'4" Ht Readings from Last 3 Encounters: 11/17/19 1.626 m (5' 4") 07/12/18 1.499 m (4' 11") 05/10/18 1.524 m (5') Current Wt: 57 kg/ 125 lb BMI: Body mass index is 21.57 kg/m. (Underweight For Age) IBW for Ht: 54.54 kg +/- 5 kg %IBW: 106% Weight History: Wt Readings from Last 10 Encounters: 02/05/20 57 kg (125 lb 10.6 oz) 11/26/19 59.9 kg (132 lb) 11/17/19 59.9 kg (132 lb) 07/12/18 59.9 kg (132 lb) 05/10/18 61.6 kg (135 lb 12.9 oz) 11/08/17 61.6 kg (135 lb 14.4 oz) 07/26/17 59.9 kg (132 lb) 04/02/17 60.8 kg (134 lb) 02/12/17 61 kg (134 lb 6.4 oz) 11/17/16 60.8 kg (134 lb) Inflammatory Markers: Elevated WBC and Increased Respiratory Rate (>20) Current Dietary Order(s): Regular Diet; Texture: Regular EMR documented food allergies/intolerance/cultural preferences: [facility] Nutrition & Diet History: Spoke with patient family members who inform patient was hospitalized middle of December and colostomy bag was placed. Patient was also on TPN until 1 week ago. Patient currently has no appetite and intake is ~25% of meals. UBW is 137 lbs and currently weighs 125 lbs = 12 lb weight loss in 1 month = 8% severe loss in 1 month. Discussed ways to increase calories and protein in diet and ONS supplementation for now. Also discussed liberalizing diet with no restrictions to help promote better intake. See recommendations below. Will continue to follow. Estimated Daily Nutritional Needs: Calories: 1500 kcal/day = 26 kcal/kg current wt = 28 kcal/kg IBW Protein: 20 % of kcal need/day = 75 g/day = 1.3 g/kg current wt = 1.4 g/kg IBW Carbohydrate: 45 % of kcal need/day = 169 g/day = 11 choices Fluid: 1500 mL/day or per MD; adjust per acute needs Nutrition Diagnosis: Unintentional weight loss related to poor appetite and intake as evidenced by 12 lb (8%) weight lossin 1 month. Nutrition Plan of Care: Intervention(s): 1. Recommend Regular Diet 2. Discussed ways to increase calories and protein in the diet 3. Recommend Ensure High Protein TID 4. Monitor intake, weight, and labs daily. Goal(s): 1. Achieve >75% of target nutrient needs with meal intake + oral nutrition supplement. 2. No further weight loss. D/C Planning: Eat 3 meals and at least 3 snacks every day Prioritize protein items such as meat, eggs, peanut butter, beans, milk, yogurt, nuts and cheese Try liquid nutritional supplements Ensure enlive, Boost Supplements Add protein powder at meals Make high protein, high calorie smoothie or milkshakes May use protein powder, milk, ice cream, and peanut butter To help meet caloric needs: Try adding butters/nut butters, salad dressing, oils, cream, condiments at meals Nutrition Monitoring and Evaluation: A registered dietitian will f/u as indicated to report nutrition related information and to revise the recommended nutrition intervention(s); please call with questions or concerns, thank-you. Chhaya Rendon RD, LD Clinical Dietitian RD Office: [id number] signed by Chhaya Rendon at 02/06/2020 4:39 PM Eleanor Maya RN - 02/05/2020 2:06 PM CSTAssociated Order(s): CONSULT SKIN/WOUND CARE TEAM WOCN Note Consult for sacral wound. Pt comes to hospital with wound vac to midline wound as well. Per son report, patient has been in outside hospital for ~2 months and recently came home with home care. Right sided ostomy. . 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 states she is not diabetic anymore per PCP High cholesterol HTN (hypertension), benign follows with Dr. Anguiano. Other specified hypothyroidism .BP 139/64 (BP Location: Right arm, Patient Position: Sitting) | Pulse 87 | Temp 36.8 C (98.3 F) (Oral) | Resp 18 | Wt 57 kg (125 lb 10.6 oz) | SpO2 97% | BMI 21.57 kg/m ASSESSMENT: Coccyx wound, unstageable, 0.6cm x 2.1cm x 0.2cm with yellow slough in base. Mild redness surrounding. Pt had pulled wound vac loose. Midline wound, 6x5xm z 4.5cm depth. Minimal granulation tissue top wound edges. Base of wound is dull with slimy covering and without granulation. Periwound skin is intact. Bruising noted to LLQ. RLQ Ileostomy present, small stoma, ~1 inch, red with stoolin pouch. RECOMMENDATIONS: Santyl enzymatic to coccyx wound daily with double antibiotic ointment. Apply antiobiotic ointment first, then Santyl. Cover with mepilex and change daily. For midline wound, Dakin's 0.025% wet to dry twice daily for next 3 days to reduce bioburden. May resume wound vac upon discharge back to home care. Sons will take home machine back to home. Upon discharge, order dakins or vashe for wound cleansing prior to wound vac. Follow up with her provider for midline wound. Order one piece ostomy pouch, [id number] and change pouch every 3- 4 days and prn for leakage. Eleanor Renteria RN 02/05/2020 2:14 PM documented in this encounter Nursing Notes Fadi York RN - 02/06/2020 8:17 PM CSTPatient was catheterized at 18:40 pm due to a bladder scan showing 385 mls. Clear yellow urine 300 mls obtained. Fadi Thornton RN - 02/06/2020 12:56 PM CSTBladder scan done at noon had a residual of 145 mls. adi York RN - 02/05/2020 1:16 PM CSTPVR at 12:30 22 mls. 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 She reports thatthe patient today started complaining that she wasn't feeling well but didn't have specific symptomsuntil she started vomiting. She has continued vomiting persistently and has been unable to keep fluids down. She has an ostomy in place but the granddaughter said that the stool in it looks like what it has been the past several days. The patient was just discharged from a rehab facility 4 days ago where she had been admitted for a month. She has had a number of medical conditions, procedures and illnesses over the past 3 months including a CABG, ileus, sepsis and colon obstruction with subsequent co makayla resection and ostomy placement. She has been on TPN until about a week ago when she was weaned off to regular food. The patient's granddaughter has been concerned because they haven't been able to get her to eat well or drink adequate fluids, and she said that when they push the patient, she will e ventually refuse because she says it makes her stomach hurt. When she mentioned the concern to the rehab, they told them that it was going to be up to her PCP to address that issue. She has not had fever, shortness of breath, cough. She developed a little chest pain earlier today as well. 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 states she is not diabetic anymore per PCP High cholesterol HTN (hypertension), benign follows with Dr. Anguiano. Other specified hypothyroidism Tetanus received in last 5 years: Unknown Childhood immunizations: Up-to-date Allergies: No Known Allergies Past Social History: Tobacco Use Never smoked or used smokeless tobacco. Alcohol Use No. Drug Use No. Past Surgical History: Past Surgical History: Procedure Laterality Date BREAST LUMPECTOMY 07/08/2011 Was benign. COLONOSCOPY N/A 07/28/2017 Surgeon: Kale Lundberg MD; Location: [facility] OR Location H[place] CORRECTION Left 05/13/2018 Surgeon: Eran Umana DPM; Location: [facility] OR [facility] LEG/ANKLE SURGERY PROC UNLISTED Right 04/21/2013 Right ankle fracture with four screws placed. OTHER 05/05/2007 Eyelid was repaired. OTHER 1997 Knee surgery OTHER 2016 Hemorrhoid surgery RADICAL HYSTERECTOMY TOTAL ABDOM HYSTERECTOMY Review of Systems: Review of Systems Constitutional: Positive for appetite change. HENT: Negative. Eyes: Negative. Respiratory: Negative. Cardiovascular: Negative. Gastrointestinal: Positive for nausea and vomiting. Negative for abdominal pain and diarrhea. Genitourinary: Negative. Musculoskeletal: Negative. Skin: Negative. Neurological: Negative. Psychiatric/Behavioral: Negative. Physical Exam: ED Triage Vitals [02/03/20 1822] Weight 61.2 kg (135 lb) Actual or estimated Height BP (!) 109/98 Pulse 103 Resp 20 Temp 37.5 C (99.5 F) Temp source Oral SpO2 98 % Measured on Room air Physical Exam Vitals signs and nursing note reviewed. Constitutional: General: She is not in acute distress. Appearance: Normal appearance. She is well-developed. She is ill-appearing. She is not toxic-appearing or diaphoretic. HENT: Head: Normocephalic and atraumatic. Eyes: Conjunctiva/sclera: Conjunctivae normal. Neck: Musculoskeletal: Normal range of motion and neck supple. Cardiovascular: Rate and Rhythm: Normal rate and regular rhythm. Heart sounds: Normal heart sounds. No murmur. No friction rub. No gallop. Pulmonary: Effort: Pulmonary effort is normal. No respiratory distress. Breath sounds: Normal breath sounds. No stridor. No wheezing, rhonchi or rales. Abdominal: General: Bowel sounds are normal. There is no distension. Palpations: Abdomen is soft. There is no mass. Tenderness: There is no abdominal tenderness. There is no guarding or rebound. Hernia: No hernia is present. Skin: General: Skin is warm and dry. Neurological: General: No focal deficit present. Mental Status: She is alert and oriented to person, place, and time. Motor: No weakness. Psychiatric: Mood and Affect: Mood normal. Behavior: Behavior normal. Thought Content: Thought content normal. Judgment: Judgment normal. Radiology: Hospital Encounter on 02/03/20 XR CHEST 1 VW Narrative Ordering physician: YUSRA MERRITT INDICATION: Vomiting, shortness of breath COMPARISON: Chest dated 07/12/2018 FINDINGS: AP view of the chest. The patient is status post median sternotomy. There is moderate cardiomegaly. There is prominent mitral valve calcification. There is no acute pulmonary process. Impression Moderate cardiomegaly, status post median sternotomy. No acute pulmonary process. No free air is seen under either hemidiaphragm to suggest pneumoperitoneum. RL: [id number] AFC: [id number] Lab Results (24h): Recent Results (from the past 24 hour(s)) Lactic Acid Whole Blood Collection Time: 02/03/20 6:46 PM Result Value Ref Range LACTIC ACID 2.79 mmol/L CBC WITH DIFF Collection Time: 02/03/20 6:46 PM Result Value Ref Range WBC 21.93 (H) 4.30 - 11.10 10*3/L RBC 3.42 (L) 3.93 - 5.25 10*6/L HGB 9.6 (L) 11.6 - 15.0 g/dL HCT 30.2 (L) 35.7 - 45.2 % MCV 88.3 80.6 - 95.5 fL MCH 28.1 25.9 - 32.8 pg MCHC 31.8 31.6 - 35.1 g/dL RDW-SD 53.5 (H) 39.0 - 49.9 fL RDW-CV 16.9 (H) 12.0 - 15.5 % PLT 426 (H) 166 - 358 10*3/L MPV 10.6 9.5 - 12.9 fL NRBC/100 WBC 0.0 0.0 - 10.0 /100 WBCs NRBC x10^3 <0.01 10*3/L GRAN MAT (NEUT) % 67.7 % IMM GRAN % 1.00 % LYMPH % 24.6 % MONO % 4.9 % EOS % 1.3 % BASO % 0.5 % GRAN MAT x10^3(ANC) 14.84 (H) 1.88 - 7.09 10*3/uL IMM GRAN x10^3 0.22 (H) 0.00 - 0.06 10*3/uL LYMPH x10^3 5.40 (H) 1.32 - 3.29 10*3/uL MONO x10^3 1.08 (H) 0.33 - 0.92 10*3/uL EOS x10^3 0.28 0.03 - 0.39 10*3/uL BASO x10^3 0.11 (H) 0.01 - 0.07 10*3/uL BASIC METABOLIC PANEL (NA, K, CL, CO2, GLUCOSE, BUN, CREATININE, CA) Collection Time: 02/03/20 6:46 PM Result Value Ref Range NA 130 (L) 135 - 145 mmol/L K 4.5 3.5 - 5.0 mmol/L CL 92 (L) 98 - 108 mmol/L CO2 TOTAL 22 (L) 23 - 31 mmol/L AGAP 16 2 - 16 BUN 64 (H) 7 - 23 mg/dL GLUCOSE 125 (H) 70 - 110 mg/dL CREATININE 3.31 (H) 0.50 - 1.04 mg/dL CALCIUM 9.4 8.6 - 10.6 mg/dL eGFR Calculation (Non-) 13.4 mL/min/1.73m2 eGFR Calculation () 16.2 mL/min/1.73m2 BLOOD CULTURE SCREEN Collection Time: 02/03/20 6:46 PM Specimen: VENOUS; Blood Result Value Ref Range Blood Culture-Aerobic Culture In Progress No growth Blood Culture-Anaerobic Culture In Progress No growth TROPONIN I Collection Time: 02/03/20 6:46 PM Result Value Ref Range TROPONIN I 0.048 (H) <=0.034 ng/mL COVID-19 (ID NOW RAPID TESTING) Collection Time: 02/03/20 6:52 PM Specimen: NASOPHARYNGEAL SWAB Result Value Ref Range SARS-CoV-2 Rapid ID NOW Not Detected Not Detected BLOOD CULTURE SCREEN Collection Time: 02/03/20 7:04 PM Specimen: VENOUS; Blood Result Value Ref Range Blood Culture-Aerobic Culture In Progress No growth Blood Culture-Anaerobic Culture In Progress No growth Lactic Acid Whole Blood Collection Time: 02/03/20 9:23 PM Result Value Ref Range LACTIC ACID 1.56 mmol/L URINALYSIS Collection Time: 02/03/20 9:28 PM Result Value Ref Range APPEARANCE Cloudy (A) Clear COLOR Zaria (A) Yellow PH 5.0 4.8 - 8.0 SP GRAVITY 1.020 1.003 - 1.030 GLU U QUAL Normal Normal BLOOD 2+ (A) Negative KETONES Negative Negative PROTEIN 100 mg/dL (A) Negative UROBILIN Normal Normal BILIRUBIN Negative Negative NITRITE Negative Negative LEUK YAMINI 500/uL (A) Negative RBC/HPF 62 (H) 0 - 3 HPF WBC/HPF >182 (H) 0 - 5 HPF BACTERIA Few (A) Negative MUCOUS Slight (A) Negative LPF SQ EPITH 3 HPF WBC CLUMPS 17 (H) <=1 HPF EKG: HR 86, normal sinus rhythm, LBBB not new compared to previous EKG per Dr. Penaloza, no STEMI Orders and Treatments: Orders Placed This Encounter Procedures XR CHEST 1 VW Lactic Acid Whole Blood Lactic Acid Whole Blood CBC WITH DIFF BASIC METABOLIC PANEL (NA, K, CL, CO2, GLUCOSE, BUN, CREATININE, CA) URINALYSIS BLOOD CULTURE SCREEN TROPONIN I COVID-19 (ID NOW RAPID TESTING) BLOOD CULTURE SCREEN LAB ONLY COVID INTERPRETATION Orders Placed This Encounter Medications NaCl 0.9% (NS) bolus infusion 1,836 mL cefTRIAXone (ROCEPHIN) 1,000 mg in NaCl 0.9% (NS) 50 mL MINI-BAG NaCl 0.9% (NS) bolus infusion 1,000 mL ED COURSE MDM: Coding Patient is a 79 y/o female presenting for evaluation of vomiting and malaise. Ddx includes but is not limited to: Sepsis, pneumonia, UTI, COVID, gastroenteritis, dehydration Reviewed: nursing note and vitals Testing: labs, COVID, CXR, EKG, trop, blood cultures, lactic acid Pertinent results include initial lactic acid 2.79, WBC 21.93, trop 0.048, creatinine 3.31, negativeCOVID, UA +leuks/WBCs, CXR nl Procedures: none Treatment in ED: IV fluids 30mL/kg, ceftriaxone 1g Overall delay in labs and treatment administration due to ED census. Patient has remained stable though MAP has remained low. Patient has not had change in neuro status and is interacting normally. Sheappears comfortable. At end of shift, waiting on bed placement for admission vs transfer to IMU bed.Patient transferred to [place] NP. Dr. Penaloza was involved in examining patient and her initial plan of evaluation and care, and I discussed the patient with Dr. Ortega while she was in the ED. Additional MDM may be found in the ED course and discharge recommendations in disposition. Vital signs were rechecked before final disposition and determined to be expected for patient's clinical condition. Scoring Tools: No data recorded Diagnosis/Impression: ICD-10-CM ICD-9-CM 1. Vomiting, intractability of vomiting not specified, presence of nausea not specified, unspecifiedvomiting type R11.10 787.03 Disposition/Condition: ED Disposition None Discharge Medications: Patient's Medications START taking these medications No medications on file CONTINUE taking these medications which have NOT CHANGED ASPIRIN 81 MG CHEWABLE TABLET Take 81 mg by mouth daily. ETODOLAC 200 MG CAPSULE Take 1 capsule by mouth every 8 (eight) hours. LEVOTHYROXINE 88 MCG TABLET Take 1 tablet by mouth every morning. LISINOPRIL-HYDROCHLOROTHIAZIDE (PRINZIDE,ZESTORETIC) 10-12.5 MG PER TABLET Take 1 tablet by mouth daily. SERTRALINE 50 MG TABLET Take 1 tablet by mouth daily. SIMVASTATIN (ZOCOR) 40 MG TABLET Take 20 mg by mouth at bedtime. TRAMADOL 50 MG TABLET Take 1 tablet by mouth every 8 (eight) hours as needed for Pain (scale 7-10). START taking Modified Medications as Prescribed No medications on file STOP taking these medications No medications on file Follow-up: Electronically signed by: DEEPALI Canales 02/03/2020 11:33 PM GER STATISTICS Associated attestation - Itz Penaloza MD - 02/04/2020 7:13 AM CSTOn the date of service, I reviewed the patients history, exam findings, diagnostic and any interventions or procedures in detail of the assigned advance practice provider and was available for consultation. Itz Penaloza Jr., MD Clinical Child Care Coordinator [facility] Emergency Department documented in this encounter Miscellaneous Notes Care Plan - Gabriella Heredia RN - 02/08/2020 3:03 AM MANAGER STATISTICS Problem: Falls, Risk of Goal: Absence of falls Outcome: Progressing as expected Problem: Infection Risk Goal: Absence of infection Outcome: Progressing as expected Problem: Discharge Planning Goal: Effective communication Outcome: Progressing as expected ursing Note - Nasir Jonas RN - 02/07/2020 6:33 PM CSTBladder scan at 1800 showed 67 ML. GER STATISTICS Care Plan - Nasir Jonas RN - 02/07/2020 3:50 PM CSTInstructed patient's on how the change colostomy and abdominal wound.He return demonstration and verbalize understanding. ursing Note - Gabriella Heredia RN - 02/07/2020 2:53 AM CST02/06/20 2300 No void since last st cath at 1840. Denies urge to void. Bladder scanned with estimated retained at 172 ml. 02/07/20 0230 Expressed urge to void and assisted to bathroom using Jyoti Stedy transfer device. Voided 240 mlhazy zaria urine. PVR per bladder scan estimated at 36 ml. ursing Note - Fadi York RN - 02/06/2020 4:35 PM CSTBladder scan done at 16:15 had 236 residual. linical Pharmacist - Renate Dickinson [facility] - 02/06/2020 4:00 PM CSTPharmacy Note for Warfarin Monitoring Pharmacy to follow warfarin dosing for patient Claudette Sherman, [id number]. Indication: mechanical aortic valve replacement per primary team Goal INR: 2-3 Home warfarin dose: warfarin 2 mg oral daily (per primary team) Most recent INR: 2-3 Current warfarin dose: warfarin 1 mg oral daily Date INR Warfarin dose received (mg) 02/05/20 2.5 1 mg 02/06/20 2.2 Additional anticoagulation: on aspirin Significant drug-drug interaction(s): 1. Aspirin - Inhibition of platelets may increase risk of bleeding on concomitant anticoagulants. Aspirin may also increase serum concentrations of warfarin by displacing warfarin from albumin, and by decreasing the metabolism of warfarin. Recommendation: 1. INR is 2.2 today. Discussed with primary team and it was agreed upon to continue current warfarin dose for today 2. Please draw INR daily. Pharmacy will continue to follow while in-houseand provide recommendations when/if indicated. Pharmacy will continue to follow. Please call with questions. Renate Dickinson [facility] Pager: [phone] are Plan - Fadi York RN - 02/05/2020 4:36 PM MANAGER STATISTICS Problem: Falls, Risk of Goal: Absence of falls Outcome: Progressing as expected Problem: Infection Risk Goal: Absence of infection Outcome: Progressing as expected Problem: Discharge Planning Goal: Effective communication Outcome: Progressing as expected GER STATISTICS Nursing Note - Fadi York RN - 02/05/2020 4:25 PM CSTBLADDER SCAN RESIDUAL 31 MLS AT 16:00 PM. I was unable to obtain the blood for aPTT Lab. Specimen. CBC and BMP were obtained. Another nurse also tried but was unsuccessful. are Plan - Niurka Aquino RN - 02/05/2020 7:48 AM MANAGER STATISTICS Problem: Falls, Risk of Goal: Absence of falls Outcome: Progressing as expected Problem: Infection Risk Goal: Absence of infection Outcome: Progressing as expected Problem: Discharge Planning Goal: Effective communication Outcome: Progressing as expected D Nurse Note - Clary Morgan RN - 02/04/2020 2:54 [facility]. Patient left ER vitally stable by EMS stretcher, no valuables left in ED. D Nurse Note - Clary Morgan RN - 02/04/2020 2:50 AM CSTReport given to [facility] Clary Morgan RN D Nurse Note - Clary Morgan RN - 02/04/2020 2:22 AM CSTReport given to DANILO Lorenz. Clary Morgan, RN D Nurse Note - Clary Morgan RN - 02/04/2020 2:20 AM CSTPatient's granddaughter who is at the Bedside is informed that patient's for transfer to [facility] ICU. D Nurse Note - Marylou Cano PCT - 02/04/2020 2:15 AM CSTSpoke with Yury Stout, ETA 30 minutes D Nurse Note - Ana Maria Gunter RN - 02/04/2020 1:36 AM CSTPer previous RN, patient's BP runs low when she is asleep, but comes up when she is woken up. New EDprovider relayed this information and is aware of current VS. Family at bedside, patient resting, bed assignment pending. D Nurse Note - Sandra Garnett RN - 02/04/2020 1:07 AM CSTPatient report received by Clary ACRRASCO. GER STATISTICS documented in this encounter Plan of Treatment Name Type Priority Associated Diagnoses Date/Ti me BLOOD CULTURE SCREEN LAB STAT Vomiting, intractabi lity 02/03/2020 6:46 PM of vomiting not specified, C ST presence of nausea not specified, unspecified vomiting type BLOOD CULTURE SCREEN LAB STAT Vomiting, intractabi lity 02/03/2020 7:04 PM of vomiting not specified, C ST presence of nausea not specified, unspecified vomiting type CT ABDOMEN PELVIS W IMAGING Routine Vomiting, intractabil ity 02/05/2020 5:32 PM CONTRAST of vomiting not specified, C ST presence of nausea not specified, unspecified vomiting type Name Type Priority Associated Diagnoses Order S chedule PROTHROMBIN TIME / INR LAB Routine EVERY 24 HOURS (START TIME ADJUSTABLE ) for 4 Occurrences sta rting 02/06/2020 unti l 02/09/2020, 3 c ompleted CBC WITH DIFF LAB Routine EVERY 24 HOURS (START TIME ADJUSTABLE ) for 5 Days starting 1 until 1, 2 completed BASIC METABOLIC PANEL LAB Routine EVERY 24 HOURS (START (NA, K, CL, CO2, GLUCOSE, TI ME ADJUSTABLE) for 5 BUN, CREATININE, CA) Days st arting 02/07/2020 until 1, 2 completed MAGNESIUM LAB Routine EVERY 24 HOURS (START TIME ADJUSTABLE ) for 5 Days starting 1 until 1, 2 completed PROTHROMBIN TIME / INR LAB Routine EVERY 24 HOURS (START TIME ADJUSTABLE ) for 5 Days starting 0 02/10/2020 until 1 Health Maintenance Due Date Last Done Comments EYE EXAM 10/28/1949 LDL-C 10/28/1949 URINE MICROALBUMIN 10/28/1949 Depression Screening 1951 FOOT EXAM 10/28/1957 DTaP,Tdap,and Td Vaccines (1 - 10/28/1958 Tdap) Zoster Recombinant Vaccine 10/28/1989 (SHINGRIX) (1 of 2) Medicare Wellness Visit 10/28/2004 PNEUMOCOCCAL VACCINES 65+ (2 of 2 11/18/2016 11/19/2015 - PPSV23) HgA1C 11/09/2018 05/10/2018 INFLUENZA VACCINE (#1) 2019 11/19/2015 CREATININE (SERUM) 02/06/2021 02/07/2020, 02/06/2020, 02/05/2020, Additional history exists Osteoporosis Screening 11/21/2028 11/21/2018 documented as of this encounter Procedures Procedure Name Priority Date/Time Associated Diagnosis Comme nts PROTHROMBIN TIME / Routine 02/08/2020 5:42 Resul ts for this INR AM MANAGER STATISTICS procedure are i n the results section. CBC WITH DIFF Routine 02/08/2020 5:42 Results fo r this AM MANAGER STATISTICS procedure are i n the results section. BASIC METABOLIC Routine 02/08/2020 5:42 Results for this PANEL (NA, K, CL, AM MANAGER STATISTICS procedure are in CO2, GLUCOSE, BUN, the resul ts CREATININE, CA) section. MAGNESIUM Routine 02/08/2020 5:42 Results for this AM MANAGER STATISTICS procedure are i n the results section. PROTHROMBIN TIME / Routine 02/07/2020 6:13 Resul ts for this INR AM MANAGER STATISTICS procedure are i n the results section. CBC WITH DIFF Routine 02/07/2020 6:13 Results fo r this AM MANAGER STATISTICS procedure are i n the results section. BASIC METABOLIC Routine 02/07/2020 6:13 Results for this PANEL (NA, K, CL, AM MANAGER STATISTICS procedure are in CO2, GLUCOSE, BUN, the resul ts CREATININE, CA) section. MAGNESIUM Routine 02/07/2020 6:13 Results for this AM MANAGER STATISTICS procedure are i n the results section. POCT GLUCOSE Routine 02/07/2020 2:26 Results for this (AUTOMATED) AM MANAGER STATISTICS procedure are i n the results section. BASIC METABOLIC Routine 02/06/2020 6:39 Results for this PANEL (NA, K, CL, AM MANAGER STATISTICS procedure are in CO2, GLUCOSE, BUN, the resul ts CREATININE, CA) section. ACTIVATED PARTIAL Routine 02/06/2020 6:36 Result s for this THRMPLAS TRISTEN AM MANAGER STATISTICS procedure are i n the results section. PROTHROMBIN TIME / Routine 02/06/2020 6:36 Resul ts for this INR AM MANAGER STATISTICS procedure are i n the results section. POCT GLUCOSE Routine 02/05/2020 11:08 Results for this (AUTOMATED) PM MANAGER STATISTICS procedure are i n the results section. POCT GLUCOSE Routine 02/05/2020 5:51 Results for this (AUTOMATED) PM MANAGER STATISTICS procedure are i n the results section. CT ABDOMEN PELVIS W Routine 02/05/2020 5:32 Vomiting, CONTRAST PM MANAGER STATISTICS intractability of vomiting not specified, presence of nausea not specified, unspecified vomiting type Procedure Note - [facility], Rad[facility] Results Inft User - 02/06/2020 5:[address] OF THE ABDOMEN AND PELVIS WITH IV CONTRAST HISTORY: Weight loss, uninte nded, non-localized abd pain TECHNIQUE: Of contrast enhan daisy spiral CT of the abdomen was performed with multiplanar reformatted imag es provided for review. COMPARISON: Abdominal ultras ound dated 02/04/2020 FINDINGS: LOWER THORAX: Prior sternoto my bandlike atelectasis noted in the left lung base. Multivessel coronary a rtery and mitral annular calcification. Prior aortic valve replacement. LIVER: Normal contour. GALLBLADDER & BILIARY TREE: The gallbladder is surgically absent with prominence of the CBD. PANCREAS: No focal lesion or ductal dilation. SPLEEN: No splenomegaly. ADRENALS: No adrenal nodules . KIDNEYS: Heterogenous right upper and lower pole corticomedullary hypoattenuation suspected (6 02:98) (301:55).. No hydronephrosis or stones. PELVIS/BLADDER: The bladder is normally distended with small foci of intraluminal gas, likely rel ated to instrumentation. Prior hysterectomy. GASTROINTESTINAL: Small hiat al hernia. Postsurgical changes of partial colectomy with right lower q uadrant diverting ostomy. Probable tethering and abutment of multiple sma ll bowel loops to the abdominal wall, possibly postsurgical in nature or re lated to adhesions. The rectum is fluid-filled. No bowel obstruction. PERITONEUM/RETROPERITONEUM: No free air. Trace perihepatic and perisplenic free fluid (301:15). VASCULAR: Atherosclerotic c alcifications are seen in the abdominal aorta and its branches. A right ureña perficial femoral artery outpouching of contrast is visualized measu ring 2.1 x 2.1 x 3.5 cm (AP x TV x CC) with suspected intraluminal flap (301:111). LYMPHATICS: No enlarged lymp h nodes by CT size criteria. BONES AND SOFT TISSUES: No c oncerning bony lesion identified. Bilateral gluteal injection granulomas . Lobulated soft tissue density is noted in the lower anterior abdominal sof t tissues measuring up to 2.9 cm with density measuring 58 Hounsfield unit s, likely related to injection. A left anteromedial thigh in tramuscular fluid collection with internal layering hyperattenuating de bris is suspected anterior to the left superficial femoral artery m easuring 3.7 x 6.7 x 6.0 cm and extending inferiorly beyond the field- of-view (301:111). Complex surgical changes abo ut the anterior abdominal wall with a heterogenously marginated ve rtical midline skin defect with underlying increased attenuation, likel y related to healing granulation tissue versus healed post surgical changes (301:76). Uncomplicated large left fat-containing spigelian her nain. Moderate spondylotic changes. Osteopenia. IMPRESSION 1. Heterogenous right renal corticomedullary attenuation suspicious for pyelonephritis. Consider cor relation with urinalysis or CVA tenderness. 2. 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 3. Incompletely visualized complex fluid collection in the left proximal anteromedial femoral compart ment concerning for intramuscular hematoma. 4. Changes of partial colec milly with diverting right lower quadrant ostomy without acute abnormality. 5. Small hiatal hernia. 6. Trace perihepatic and pe risplenic ascites. Preliminary Report Dictated by Resident: Niurka Rosado CBC WITH DIFF Routine 02/05/2020 3:26 Results fo r this PM MANAGER STATISTICS procedure are i n the results section. BASIC METABOLIC PANEL Routine 02/05/2020 3:26 Re sults for this (NA, K, CL, CO2, PM MANAGER STATISTICS procedure a re in GLUCOSE, BUN, the results CREATININE, CA) section. PROTHROMBIN TIME / INR Routine 02/05/2020 5:33 R esults for this AM MANAGER STATISTICS procedure are i n the results section. URINE CULTURE Routine 02/05/2020 12:09 Results fo r this AM MANAGER STATISTICS procedure are i n the results section. US RETROPERITONEAL Routine 02/04/2020 9:35 Vomiting, Resul ts for this LIMITED AM MANAGER STATISTICS intractability of procedure are in vomiting not the results specified, presence section. of nausea not specified, unspecified vomiting type TROPONIN I BLANCA 02/04/2020 9:05 Results for this AM MANAGER STATISTICS procedure are i n the results section. MRSA / MSSA SCREEN BY BLANCA 02/04/2020 6:31 Re sults for this PCR, NARES AM MANAGER STATISTICS procedure are i n the results section. SODIUM, URINE RANDOM BLANCA 02/04/2020 6:31 Res ults for this AM MANAGER STATISTICS procedure are i n the results section. CREATININE, URINE BLANCA 02/04/2020 6:31 Result s for this RANDOM AM MANAGER STATISTICS procedure are i n the results section. CBC WITH DIFF BLANCA 02/04/2020 6:31 Results fo r this AM MANAGER STATISTICS procedure are i n the results section. BASIC METABOLIC PANEL BLANCA 02/04/2020 6:31 Re sults for this (NA, K, CL, CO2, AM MANAGER STATISTICS procedure a re in GLUCOSE, BUN, the results CREATININE, CA) section. THYROID STIMULATING BLANCA 02/04/2020 6:31 Resu lts for this HORMONE AM MANAGER STATISTICS procedure are i n the results section. TRIIODOTHYRONINE Add-on 02/04/2020 6:31 Results for this AM MANAGER STATISTICS procedure are i n the results section. FREE T4 Add-on 02/04/2020 6:31 Results for this AM MANAGER STATISTICS procedure are i n the results section. TROPONIN I BLANCA 02/04/2020 6:31 Results for this AM MANAGER STATISTICS procedure are i n the results section. URINALYSIS STAT 02/03/2020 9:28 Vomiting, Results for this PM MANAGER STATISTICS intractability of procedure are in vomiting not the results specified, presence section. of nausea not specified, unspecified vomiting type LACTIC ACID WHOLE BLOOD STAT 02/03/2020 9:23 Vomiting, Results for this PM MANAGER STATISTICS intractability of procedure are in vomiting not the results specified, presence section. of nausea not specified, unspecified vomiting type BLOOD CULTURE SCREEN STAT 02/03/2020 7:04 Vomiting, PM MANAGER STATISTICS intractability of vomiting not specified, presence of nausea not specified, unspecified vomiting type XR CHEST 1 VW STAT 02/03/2020 6:58 Vomiting, Results fo r this PM MANAGER STATISTICS intractability of procedure are in vomiting not the results specified, presence section. of nausea not specified, unspecified vomiting type LAB ONLY COVID Routine 02/03/2020 6:52 Vomiting, Results f or this INTERPRETATION PM MANAGER STATISTICS intractability of procedur e are in vomiting not the results specified, presence section. of nausea not specified, unspecified vomiting type COVID-19 (ID NOW RAPID STAT 02/03/2020 6:52 Vomiting, R esults for this TESTING) PM MANAGER STATISTICS intractability of procedure are in vomiting not the results specified, presence section. of nausea not specified, unspecified vomiting type LACTIC ACID WHOLE BLOOD STAT 02/03/2020 6:46 Vomiting, Results for this PM MANAGER STATISTICS intractability of procedure are in vomiting not the results specified, presence section. of nausea not specified, unspecified vomiting type CBC WITH DIFF STAT 02/03/2020 6:46 Vomiting, Results fo r this PM MANAGER STATISTICS intractability of procedure are in vomiting not the results specified, presence section. of nausea not specified, unspecified vomiting type BASIC METABOLIC PANEL STAT 02/03/2020 6:46 Vomiting, Re sults for this (NA, K, CL, CO2, PM MANAGER STATISTICS intractability of proced ure are in GLUCOSE, BUN, vomiting not the results CREATININE, CA) specified, presence secti on. of nausea not specified, unspecified vomiting type TROPONIN I STAT 02/03/2020 6:46 Vomiting, Results for this PM MANAGER STATISTICS intractability of procedure are in vomiting not the results specified, presence section. of nausea not specified, unspecified vomiting type BLOOD CULTURE SCREEN STAT 02/03/2020 6:46 Vomiting, PM MANAGER STATISTICS intractability of vomiting not specified, presence of nausea not specified, unspecified vomiting type HB ECG ROUTINE & RHYTHM STAT 02/03/2020 6:32 Vomiting, STRIP PM MANAGER STATISTICS intractability of vomiting not specified, presence of nausea not specified, unspecified vomiting type NOTICE OF PRIVACY Routine 02/03/2020 6:11 PRACTICES PM MANAGER STATISTICS AGREEMENTS Routine 02/03/2020 12:01 AUTHORIZATIONS AND AM MANAGER STATISTICS IRREVOCABLE ASSIGNMENTS (FORM 2001) documented in this encounter Results MAGNESIUM (02/08/2020 5:42 AM MANAGER STATISTICS) Pathologist Sig nature MAGNESIUM 2.6 (H) 1.7 - 2.4 mg/dL [facility] Specimen Blood - VENOUS Performing Organization Address City/State/Zipcode Phone Number [facility] CLIA: [id number] [place] [address] [place] [address] BASIC METABOLIC PANEL (NA, K, CL, CO2, GLUCOSE, BUN, CREATININE, CA) (02/08/2020 5:42 AM MANAGER STATISTICS) Pathologist Sig nature NA 134 (L) 135 - 145 [facility] mmol/L SERVICES K 4.0 3.5 - 5.0 [facility] mmol/L SERVICES CL 106 98 - 108 mmol/L [facility] CO2 TOTAL 23 23 - 31 mmol/L [facility] AGAP 5 2 - 16 [facility] BUN 18 7 - 23 mg/dL [facility] GLUCOSE 93 70 - 110 mg/dL [facility] CREATININE 0.89 0.50 - 1.04 [facility] mg/dL SERVICES CALCIUM 8.3 (L) 8.6 - 10.6 [facility] mg/dL SERVICES eGFR Calculation 61.0 mL/min/1.73m2 [facility] (Non- SERVICES Georgian) eGFR Calculation 74.0 mL/min/1.73m2 [facility] () SERVICES Specimen Blood - VENOUS Narrative Performed At Association of Glomerular Filtration Rate (GFR) and St aging [facility] of Kidney Disease* + + +------- ------ + | GFR (mL/min/1.73 m2) | With Kidney Damage | Wi thout Kidney Damage + + +------- ------ + | >90 | Stage one | Normal + + +------- ------ + | 60-89 | Stage two | Decreased GFR + + +------- ------ + | 30-59 | Stage three | Stage three + + +------- ------ + | 15-29 | Stage four | Stage four + + +------- ------ + | <15 (or dialysis) | Stage five | Stage five + + +------- ------ + *Each stage assumes the associated GFR level has been in effect for at least three months. Stages 1 to 5, wit h or without kidney disease, indicate chronic kidney disease. Notes: Determination of stages one and two (with eGFR >59mL/min/1.73 m2) requires estimation of kidney damag e for at least three months as defined by structural or func tional abnormalities of the kidney, manifested by either: Pathological abnormalities or Markers of kidney damage (including abnormalities in the composition of the blo od or urine or abnormalities in imaging tests) . Performing Organization Address City/State/Zipcode Phone Number [facility] CLIA: [id number] [place] [address] [place] [address] CBC WITH DIFF (02/08/2020 5:42 AM MANAGER STATISTICS) Pathologist Sig nature WBC 9.84 4.30 - 11.10 [facility] 10*3/L SERVICES RBC 2.87 (L) 3.93 - 5.25 [facility] 10*6/L SERVICES HGB 8.1 (L) 11.6 - 15.0 [facility] g/dL SERVICES HCT 25.4 (L) 35.7 - 45.2 % [facility] MCV 88.5 80.6 - 95.5 fL [facility] MCH 28.2 25.9 - 32.8 pg [facility] MCHC 31.9 31.6 - 35.1 [facility] g/dL SERVICES RDW-SD 57.6 (H) 39.0 - 49.9 fL [facility] RDW-CV 17.6 (H) 12.0 - 15.5 % [facility] PLT 280 166 - 358 [facility] 10*3/L SERVICES MPV 10.3 9.5 - 12.9 fL [facility] NRBC/100 WBC 0.0 0.0 - 10.0 /100 [facility] WBCs SERVICES NRBC x10^3 <0.01 10*3/L [facility] GRAN MAT (NEUT) % 66.0 % [facility] IMM GRAN % 0.80 % [facility] LYMPH % 23.2 % [facility] MONO % 7.5 % [facility] EOS % 2.1 % [facility] BASO % 0.4 % [facility] GRAN MAT x10^3(ANC) 6.49 1.88 - 7.09 [facility] 10*3/uL SERVICES IMM GRAN x10^3 0.08 (H) 0.00 - 0.06 [facility] 10*3/uL SERVICES LYMPH x10^3 2.28 1.32 - 3.29 [facility] 10*3/uL SERVICES MONO x10^3 0.74 0.33 - 0.92 [facility] 10*3/uL SERVICES EOS x10^3 0.21 0.03 - 0.39 [facility] 10*3/uL SERVICES BASO x10^3 0.04 0.01 - 0.07 [facility] 10*3/uL SERVICES Specimen Blood - VENOUS Performing Organization Address City/[facility] Phone Number [facility] CLIA: [id number] [place] [address] [place] [address] PROTHROMBIN TIME / INR (02/08/2020 5:42 AM MANAGER STATISTICS) PROTIME PATIENT 23.6 (H) 10.1 - 12.6 [facility] Seconds SERVICES INR 2.0Comment: Normal [facility] INR <1.1; Warfarin SERVICES Therapeutic range 2.0 to 3.0 or 2.5 to 3.5, depending upon the indications. Specimen Blood - VENOUS Performing Organization Address [facility] Phone Number [facility] CLIA: [id number] [place] [address] [place] [address] MAGNESIUM (02/07/2020 6:13 AM MANAGER STATISTICS) Pathologist Sig nature MAGNESIUM 1.3 (L) 1.7 - 2.4 mg/dL [facility] Specimen Blood - VENOUS Performing Organization Address City/[facility] Phone Number [facility] CLIA: [id number] [place] [address] [place] [address] BASIC METABOLIC PANEL (NA, K, CL, CO2, GLUCOSE, BUN, CREATININE, CA) (02/07/2020 6:13 AM MANAGER STATISTICS) Pathologist Sig nature NA 132 (L) 135 - 145 [facility] mmol/L SERVICES K 4.2 3.5 - 5.0 [facility] mmol/L SERVICES CL 106 98 - 108 mmol/L [facility] CO2 TOTAL 20 (L) 23 - 31 mmol/L [facility] AGAP 6 2 - 16 [facility] BUN 20 7 - 23 mg/dL [facility] GLUCOSE 94 70 - 110 mg/dL [facility] CREATININE 0.84 0.50 - 1.04 [facility] mg/dL SERVICES CALCIUM 8.2 (L) 8.6 - 10.6 [facility] mg/dL SERVICES eGFR Calculation 65.2 mL/min/1.73m2 [facility] (Non- SERVICES [place]ian) eGFR Calculation 79.1 mL/min/1.73m2 [facility] () SERVICES Specimen Blood - VENOUS Narrative Performed At [employer] of Glomerular Filtration Rate (GFR) and St aging [facility] of Kidney Disease* + + +------- ------ + | GFR (mL/min/1.73 m2) | With Kidney Damage | Wi soout Kidney Damage + + +------- ------ + | >90 | Stage one | Normal + + +------- ------ + | 60-89 | Stage two | Decreased GFR + + +------- ------ + | 30-59 | Stage three | Stage three + + +------- ------ + | 15-29 | Stage four | Stage four + + +------- ------ + | <15 (or dialysis) | Stage five | Stage five + + +------- ------ + *Each stage assumes the associated GFR level has been in effect for at least three months. Stages 1 to 5, wit h or without kidney disease, indicate chronic kidney disease. Notes: Determination of stages one and two (with eGFR >59mL/min/1.73 m2) requires estimation of kidney damag e for at least three months as defined by structural or func tional abnormalities of the kidney, manifested by either: Pathological abnormalities or Markers of kidney damage (including abnormalities in the composition of the blo od or urine or abnormalities in imaging tests) . Performing Organization Address City/State/Zipcode Phone Number [facility] CLIA: [id number] [place] [address] [place] [address] CBC WITH DIFF (02/07/2020 6:13 AM MANAGER STATISTICS) Pathologist Sig nature WBC 12.17 (H) 4.30 - 11.10 [facility] 10*3/L SERVICES RBC 2.69 (L) 3.93 - 5.25 [facility] 10*6/L SERVICES HGB 7.6 (L) 11.6 - 15.0 [facility] g/dL SERVICES HCT 23.3 (L) 35.7 - 45.2 % [facility] MCV 86.6 80.6 - 95.5 fL [facility] MCH 28.3 25.9 - 32.8 pg [facility] MCHC 32.6 31.6 - 35.1 [facility] g/dL SERVICES RDW-SD 54.8 (H) 39.0 - 49.9 fL [facility] RDW-CV 17.3 (H) 12.0 - 15.5 % [facility] PLT 253 166 - 358 [facility] 10*3/L SERVICES MPV 9.7 9.5 - 12.9 fL [facility] NRBC/100 WBC 0.0 0.0 - 10.0 /100 [facility] WBCs SERVICES NRBC x10^3 <0.01 10*3/L [facility] GRAN MAT (NEUT) % 70.7 % [facility] IMM GRAN % 0.70 % [facility] LYMPH % 18.7 % [facility] MONO % 8.2 % [facility] EOS % 1.4 % [facility] BASO % 0.3 % [facility] GRAN MAT x10^3(ANC) 8.60 (H) 1.88 - 7.09 [facility] 10*3/uL SERVICES IMM GRAN x10^3 0.09 (H) 0.00 - 0.06 [facility] 10*3/uL SERVICES LYMPH x10^3 2.27 1.32 - 3.29 [facility] 10*3/uL SERVICES MONO x10^3 1.00 (H) 0.33 - 0.92 [facility] 10*3/uL SERVICES EOS x10^3 0.17 0.03 - 0.39 [facility] 10*3/uL SERVICES BASO x10^3 0.04 0.01 - 0.07 [facility] 10*3/uL SERVICES Specimen Blood - VENOUS Performing Organization Address City/State/Zipcode Phone Number [facility] CLIA: [id number] [place] [address] [place] [address] PROTHROMBIN TIME / INR (02/07/2020 6:13 AM MANAGER STATISTICS) PROTIME PATIENT 30.6 (H) 10.1 - 12.6 [facility] Seconds SERVICES INR 2.6Comment: Normal [facility] INR <1.1; Warfarin SERVICES Therapeutic range 2.0 to 3.0 or 2.5 to 3.5, depending upon the indications. Specimen Blood - VENOUS Performing Organization Address City/State/Zipcode Phone Number [facility] CLIA: [id number] [place] [address] [place] [address] POCT GLUCOSE (AUTOMATED) (02/07/2020 2:26 AM MANAGER STATISTICS) Pathologist Sig nature POCT GLU 114 (H) 70 - 110 mg/dL [facility] Specimen Blood Performing Organization Address City/[facility]/Zipcode Phone Number [facility] CLIA: [id number] [place] [address] [place] [address] BASIC METABOLIC PANEL (NA, K, CL, CO2, GLUCOSE, BUN, CREATININE, CA) (02/06/2020 6:39 AM MANAGER STATISTICS) Pathologist Sig nature NA 134 (L) 135 - 145 [facility] mmol/L SERVICES K 3.2 (L) 3.5 - 5.0 [facility] mmol/L SERVICES CL 105 98 - 108 mmol/L [facility] CO2 TOTAL 20 (L) 23 - 31 mmol/L [facility] AGAP 9 2 - 16 [facility] BUN 26 (H) 7 - 23 mg/dL [facility] GLUCOSE 104 70 - 110 mg/dL [facility] CREATININE 0.95 0.50 - 1.04 [facility] mg/dL SERVICES CALCIUM 8.1 (L) 8.6 - 10.6 [facility] mg/dL SERVICES eGFR Calculation 56.6 mL/min/1.73m2 [facility] (Non- SERVICES [place]ian) eGFR Calculation 68.6 mL/min/1.73m2 [facility] () SERVICES Specimen Blood - VENOUS Narrative Performed At [facility] Glomerular Filtration Rate (GFR) and St aging [facility] [facility] of Kidney Disease* + + +------- ------ + | GFR (mL/min/1.73 m2) | With Kidney Damage | Wi thout Kidney Damage + + +------- ------ + | >90 | Stage one | Normal + + +------- ------ + | 60-89 | Stage two | Decreased GFR + + +------- ------ + | 30-59 | Stage three | Stage three + + +------- ------ + | 15-29 | Stage four | Stage four + + +------- ------ + | <15 (or dialysis) | Stage five | Stage five + + +------- ------ + *Each stage assumes the associated GFR level has been in effect for at least three months. Stages 1 to 5, wit h or without kidney disease, indicate chronic kidney disease. Notes: Determination of stages one and two (with eGFR >59mL/min/1.73 m2) requires estimation of kidney damag e for at least three months as defined by structural or func tional abnormalities of the kidney, manifested by either: Pathological abnormalities or Markers of kidney damage (including abnormalities in the composition of the blo od or urine or abnormalities in imaging tests) . Performing Organization Address [facility] Phone Number [facility] CLIA: [id number] [place] [address] [phone] 301 [facility] PROTHROMBIN TIME / INR (02/06/2020 6:36 AM MANAGER STATISTICS) PROTIME PATIENT 25.6 (H) 10.1 - 12.6 [facility] Seconds SERVICES INR 2.2Comment: Normal [facility] INR <1.1; Warfarin SERVICES Therapeutic range 2.0 to 3.0 or 2.5 to 3.5, depending upon the indications. Specimen Blood - VENOUS Performing Organization Address [facility] Phone Number [facility] CLIA: [id number] [place] [address] [phone] 301 [facility] ACTIVATED PARTIAL THRMPLAS TRISTEN (02/06/2020 6:36 AM MANAGER STATISTICS) Pathologist Sig nature APTT Patient 28 26 - 36 Seconds [facility] Specimen Blood - VENOUS Performing Organization Address [facility] Phone Number [facility] CLIA: [id number] [place] [address] [phone] 301 [facility] POCT GLUCOSE (AUTOMATED) (02/05/2020 11:08 PM MANAGER STATISTICS) [facility] POCT GLU 73 70 - 110 mg/dL [facility] Specimen Blood Performing Organization Address [facility] Phone Number [facility] CLIA: [id number] [place] [address] [phone] 301 [facility] POCT GLUCOSE (AUTOMATED) (02/05/2020 5:51 PM MANAGER STATISTICS) Pathologist Sig [facility] POCT GLU 80 70 - 110 mg/dL [facility] Specimen Blood Performing Organization Address City/State/Zipcode Phone Number [facility] CLIA: [id number] [place] [address] [phone] 301 [facility] CBC WITH DIFF (02/05/2020 3:26 PM MANAGER STATISTICS) Pathologist Sig [facility] WBC 12.41 (H) 4.30 - 11.10 [facility] 10*3/L SERVICES RBC 2.95 (L) 3.93 - 5.25 [facility] 10*6/L SERVICES HGB 8.3 (L) 11.6 - 15.0 [facility] g/dL SERVICES HCT 26.6 (L) 35.7 - 45.2 % [facility] MCV 90.2 80.6 - 95.5 fL [facility] MCH 28.1 25.9 - 32.8 pg [facility] MCHC 31.2 (L) 31.6 - 35.1 [facility] g/dL SERVICES RDW-SD 56.4 (H) 39.0 - 49.9 fL [facility] RDW-CV 17.4 (H) 12.0 - 15.5 % [facility] PLT 266 166 - 358 [facility] 10*3/L SERVICES MPV 11.3 9.5 - 12.9 fL [facility] NRBC/100 WBC 0.0 0.0 - 10.0 /100 [facility] WBCs SERVICES NRBC x10^3 <0.01 10*3/L [facility] GRAN MAT (NEUT) % 76.1 % [facility] IMM GRAN % 0.80 % [facility] LYMPH % 14.9 % [facility] MONO % 7.4 % [facility] EOS % 0.5 % [facility] BASO % 0.3 % [facility] GRAN MAT x10^3(ANC) 9.44 (H) 1.88 - 7.09 [facility] 10*3/uL SERVICES IMM GRAN x10^3 0.10 (H) 0.00 - 0.06 [facility] 10*3/uL SERVICES LYMPH x10^3 1.85 1.32 - 3.29 [facility] 10*3/uL SERVICES MONO x10^3 0.92 0.33 - 0.92 [facility] 10*3/uL SERVICES EOS x10^3 0.06 0.03 - 0.39 [facility] 10*3/uL SERVICES BASO x10^3 0.04 0.01 - 0.07 [facility] 10*3/uL SERVICES Specimen Blood - ARM, RIGHT Performing Organization Address City/State/Zipcode Phone Number [facility] CLIA: [id number] [place] [address] [place] [address] BASIC METABOLIC PANEL (NA, K, CL, CO2, GLUCOSE, BUN, CREATININE, CA) (02/05/2020 3:26 PM MANAGER STATISTICS) NA 137 135 - 145 [facility] mmol/L SERVICES K 3.8 3.5 - 5.0 [facility] mmol/L SERVICES CL 107 98 - 108 mmol/L [facility] CO2 TOTAL 17 (L) 23 - 31 mmol/L [facility] AGAP 13 2 - 16 [facility] BUN 34 (H) 7 - 23 mg/dL [facility] GLUCOSE 54 (L) 70 - 110 mg/dL [facility] CREATININE 1.20 (H) 0.50 - 1.04 [facility] mg/dL SERVICES CALCIUM 8.5 (L) 8.6 - 10.6 [facility] mg/dL SERVICES eGFR Calculation 43.2 mL/min/1.73m2 [facility] (Non- SERVICES Georgian) eGFR Calculation 52.4 mL/min/1.73m2 [facility] () SERVICES Specimen Blood - ARM, RIGHT Narrative Performed At Association of Glomerular Filtration Rate (GFR) and St aging [facility] of Kidney Disease* + + +------- ------ + | GFR (mL/min/1.73 m2) | With Kidney Damage | Wi thout Kidney Damage + + +------- ------ + | >90 | Stage one | Normal + + +------- ------ + | 60-89 | Stage two | Decreased GFR + + +------- ------ + | 30-59 | Stage three | Stage three + + +------- ------ + | 15-29 | Stage four | Stage four + + +------- ------ + | <15 (or dialysis) | Stage five | Stage five + + +------- ------ + *Each stage assumes the associated GFR level has been in effect for at least three months. Stages 1 to 5, wit h or without kidney disease, indicate chronic kidney disease. Notes: Determination of stages one and two (with eGFR >59mL/min/1.73 m2) requires estimation of kidney damag e for at least three months as defined by structural or func tional abnormalities of the kidney, manifested by either: Pathological abnormalities or Markers of kidney damage (including abnormalities in the composition of the blo od or urine or abnormalities in imaging tests) . Performing Organization Address [facility] Phone Number [facility] CLIA: [id number] [place] [address] [phone] 301 [facility] PROTHROMBIN TIME / INR (02/05/2020 5:33 AM MANAGER STATISTICS) PROTIME PATIENT 28.4 (H) 10.1 - 12.6 [facility] Seconds SERVICES INR 2.5Comment: Normal [facility] INR <1.1; Warfarin SERVICES Therapeutic range 2.0 to 3.0 or 2.5 to 3.5, depending upon the indications. Specimen Blood - ARM, RIGHT Performing Organization Address [facility] Phone Number [facility] CLIA: [id number] [place] [address] [phone] 301 [facility] URINE CULTURE (02/05/2020 12:09 AM MANAGER STATISTICS) Pathologist Sig nature URINE CULTURE 10,000-100,000 [facility] CFU/mL [facility] SERVICES glabrata Specimen Urine - URINE, CATHETERIZED Performing Organization Address [facility] Phone Number [facility] CLIA: [id number] [place] [address] [phone] 301 [facility] US RETROPERITONEAL LIMITED (02/04/2020 9:35 AM MANAGER STATISTICS) Specimen Impressions Performed At PACS/VR/DOSE 2.5 cm irregular hypoechoic lesion withi n the superior pole of the right kidney. This lesion is indeterminate. Re commend outpatient nonemergent CT/MRI renal mass protocol for further c haracterization. Otherwise unremarkable sonographic appearance of the k idneys. In particular there is no hydronephrosis and no renal atrophy. I, Zak Shanks MD., have reviewed thi s study and agree with the above report. Narrative Performed At This result has an attachment that is no t available. EXAM: US RETROPERITONEAL LIMITED PACS/VR/DOSE HISTORY: 79 years-old Female with UTI/MAGDY. TECHNIQUE: Ultrasound of kidneys was performed with gr ayscale and selected color Doppler imaging. Supervisor Cd Area images were obta ined for the record. COMPARISON: None. FINDINGS: KIDNEYS: RIGHT: Size: 11.5 x 4.0 x 4.6 cm. Parenchyma: Normal renal cortical echogenicity and thi ckness. There is a 1.9 x 1.8 x 2.5 cm focal hypoechoic somewhat irregular ly shaped, lesion within the superior pole of the right kidney without i nternal vascular. Collecting System: No hydronephrosis. LEFT: Size: 11.0 x 4.8 x 5.2 cm. Parenchyma:Normal renal cortical echogenicity and thic kness. There is a 1.8 x 2.5 x 2.3 cm focal isoechoic structure within the la teral border of the left kidney and likely represents a dromedary hump. Collecting System: No hydronephrosis. Procedure Note [facility], Radiant Results Inft User - 2019 12:43 PM MANAGER STATISTICS EXAM: US RETROPERITONEAL LIMITED HISTORY: 79 years-old Female with UTI/AK I. TECHNIQUE: Ultrasound of kidneys was per formed with grayscale and selected color Doppler imaging. Supervisor Cd Area im ages were obtained for the record. COMPARISON: None. FINDINGS: KIDNEYS: RIGHT: Size: 11.5 x 4.0 x 4.6 cm. Parenchyma: Normal renal cortical echoge nicity and thickness. There is a 1.9 x 1.8 x 2.5 cm focal hypoechoic some what irregularly shaped, lesion within the superior pole of the right ki dney without internal vascular. Collecting System: No hydronephrosis. LEFT: Size: 11.0 x 4.8 x 5.2 cm. Parenchyma:Normal renal cortical echogen icity and thickness. There is a 1.8 x 2.5 x 2.3 cm focal isoechoic structure within the lateral border of the left kidney and likely represents a drom edary hump. Collecting System: No hydronephrosis. IMPRESSION 2.5 cm irregular hypoechoic lesion withi n the superior pole of the right kidney. This lesion is indeterminate. Re commend outpatient nonemergent CT/MRI renal mass protocol for further c haracterization. Otherwise unremarkable sonographic appea amol of the kidneys. In particular there is no hydronephrosis and no renal atrophy. I, Zak Shanks MD., have reviewed thi s study and agree with the above report. Performing Organization Address City/[facility] Phone Number PACS/VR/DOSE TROPONIN I (02/04/2020 9:05 AM MANAGER STATISTICS) Pathologist Sig nature TROPONIN I 0.025 <=0.034 ng/mL [facility] Specimen Blood - LINE, VENOUS Narrative Performed At Equal or Less than 0.034 ng/ml---Normal [facility] Note: Cardiac troponin begins to rise 3-4 hours after the onset of ischemia. Repeat in 4-6 hours if the sample w as drawn within 3-4 hours of the onset of the symptom and found normal. Between 0.035 and 0.120 ng/mL--- Borderline. Questiona ble myocardial injury or necrosis Note: Serial measurement may be necessary to confirm o r exclude the diagnosis of myocardial injury or necrosis ; Clinical correlation (symptoms, EKGs, imaging studies, and others) required; Repeat in 4-6 hours if clinically indicated. Equal or Higher than 0.121 ng/mL---Abnormal. Myocardia l Injury or Necrosis Likely Biotin has been reported to cause a negative bias, int erpret results relative to patient's use of biotin. Performing Organization Address [facility] Phone Number [facility] CLIA: [id number] [place] [address] [place] [address] TRIIODOTHYRONINE (02/04/2020 6:31 AM MANAGER STATISTICS) Pathologist Sig nature T3 47.9 (L) 97.0 - 170.0 ng/dL [facility]IC ES Specimen Blood - VENOUS Performing Organization Address [facility] Phone Number [facility] CLIA: [id number] [place] [address] [phone] 301 [facility] FREE T4 (02/04/2020 6:31 AM MANAGER STATISTICS) Pathologist Sig nature FREE T4 0.88 0.78 - 2.20 ng/dL: [facility]IC ES Specimen Blood - VENOUS Performing Organization Address City/[facility]/Zipcode Phone Number [facility] CLIA: [id number] [place] [address] [place] [address] TROPONIN I (02/04/2020 6:31 AM MANAGER STATISTICS) Pathologist Sig nature TROPONIN I 0.027 <=0.034 ng/mL [facility] Specimen Blood - VENOUS Narrative Performed At Equal or Less than 0.034 ng/ml---Normal [facility] Note: Cardiac troponin begins to rise 3-4 hours after the onset of ischemia. Repeat in 4-6 hours if the sample w as drawn within 3-4 hours of the onset of the symptom and found normal. Between 0.035 and 0.120 ng/mL--- Borderline. Questiona ble myocardial injury or necrosis Note: Serial measurement may be necessary to confirm o r exclude the diagnosis of myocardial injury or necrosis ; Clinical correlation (symptoms, EKGs, imaging studies, and others) required; Repeat in 4-6 hours if clinically indicated. Equal or Higher than 0.121 ng/mL---Abnormal. Myocardia l Injury or Necrosis Likely Biotin has been reported to cause a negative bias, int erpret results relative to patient's use of biotin. Performing Organization Address [facility]/Zipcode Phone Number [facility] CLIA: [id number] [place] [address] [place] [address] CBC WITH DIFF (02/04/2020 6:31 AM MANAGER STATISTICS) Pathologist Sig nature WBC 13.47 (H) 4.30 - 11.10 [facility] 10*3/L SERVICES RBC 2.65 (L) 3.93 - 5.25 [facility] 10*6/L SERVICES HGB 7.6 (L) 11.6 - 15.0 [facility] g/dL SERVICES HCT 23.6 (L) 35.7 - 45.2 % [facility] SERVICES MCV 89.1 80.6 - 95.5 fL [facility] SERVICES MCH 28.7 25.9 - 32.8 pg [facility] SERVICES MCHC 32.2 31.6 - 35.1 [facility] g/dL SERVICES RDW-SD 54.4 (H) 39.0 - 49.9 fL [facility] SERVICES RDW-CV 17.1 (H) 12.0 - 15.5 % [facility] PLT 263 166 - 358 [facility] 10*3/L SERVICES MPV 10.3 9.5 - 12.9 fL [facility] SERVICES NRBC/100 WBC 0.0 0.0 - 10.0 /100 [facility] WBCs SERVICES NRBC x10^3 <0.01 10*3/L [facility] GRAN MAT (NEUT) % 76.1 % [facility] IMM GRAN % 0.80 % [facility] LYMPH % 14.7 % [facility] MONO % 6.5 % [facility] EOS % 1.6 % [facility] BASO % 0.3 % [facility] GRAN MAT x10^3(ANC) 10.25 (H) 1.88 - 7.09 [facility] 10*3/uL SERVICES IMM GRAN x10^3 0.11 (H) 0.00 - 0.06 [facility] 10*3/uL SERVICES LYMPH x10^3 1.98 1.32 - 3.29 [facility] 10*3/uL SERVICES MONO x10^3 0.88 0.33 - 0.92 [facility] 10*3/uL SERVICES EOS x10^3 0.21 0.03 - 0.39 [facility] 10*3/uL SERVICES BASO x10^3 0.04 0.01 - 0.07 [facility] 10*3/uL SERVICES Specimen Blood - VENOUS Performing Organization Address [facility] Phone Number [facility] CLIA: [id number] [place] [address] [place] [address] CREATININE, URINE RANDOM (02/04/2020 6:31 AM MANAGER STATISTICS) Pathologist Sig nature CREAT U 67.3 mg/dL [facility] Specimen Urine - URINE, CLEAN CATCH Performing Organization Address [facility] Phone Number [facility] CLIA: [id number] [place] [address] [phone] 301 [facility] SODIUM, URINE RANDOM (02/04/2020 6:31 AM MANAGER STATISTICS) Pathologist Sig nature NA URINE 69 mmol/L [facility] Specimen Urine - URINE, CLEAN CATCH Performing Organization Address [facility] Phone Number [facility] CLIA: [id number] [place] [id number] [address] [place] [address] BASIC METABOLIC PANEL (NA, K, CL, CO2, GLUCOSE, BUN, CREATININE, CA) (02/04/2020 6:31 AM MANAGER STATISTICS) NA 136 135 - 145 [facility] mmol/L SERVICES K 3.9 3.5 - 5.0 [facility] mmol/L SERVICES CL 108 98 - 108 mmol/L [facility] SERVICES CO2 TOTAL 18 (L) 23 - 31 mmol/L [facility] SERVICES AGAP 10 2 - 16 [facility] SERVICES BUN 48 (H) 7 - 23 mg/dL [facility] SERVICES GLUCOSE 77 70 - 110 mg/dL [facility] SERVICES CREATININE 1.89 (H) 0.50 - 1.04 [facility] mg/dL SERVICES CALCIUM 7.0 (L) 8.6 - 10.6 [facility] mg/dL SERVICES eGFR Calculation 25.6 mL/min/1.73m2 [facility] (Non- SERVICES Georgian) eGFR Calculation 31.0 mL/min/1.73m2 [facility] () SERVICES Specimen Blood - VENOUS Narrative Performed At Association of Glomerular Filtration Rate (GFR) and St aging [facility] of Kidney Disease* + + +------- ------ + | GFR (mL/min/1.73 m2) | With Kidney Damage | Wi thout Kidney Damage + + +------- ------ + | >90 | Stage one | Normal + + +------- ------ + | 60-89 | Stage two | Decreased GFR + + +------- ------ + | 30-59 | Stage three | Stage three + + +------- ------ + | 15-29 | Stage four | Stage four + + +------- ------ + | <15 (or dialysis) | Stage five | Stage five + + +------- ------ + *Each stage assumes the associated GFR level has been in effect for at least three months. Stages 1 to 5, wit h or without kidney disease, indicate chronic kidney disease. Notes: Determination of stages one and two (with eGFR >59mL/min/1.73 m2) requires estimation of kidney damag e for at least three months as defined by structural or func tional abnormalities of the kidney, manifested by either: Pathological abnormalities or Markers of kidney damage (including abnormalities in the composition of the blo od or urine or abnormalities in imaging tests) . Performing Organization Address City/State/Zipcode Phone Number [facility] CLIA: [id number] [place] [address] [place] [address] MRSA / MSSA Screen by PCR, Nares (02/04/2020 6:31 AM MANAGER STATISTICS) Pathologist Sig nature MRSA Screen by PCR, Negative Negative [facility] Nares SERVICES MSSA Screen by PCR, Negative Negative [facility] Nares SERVICES MRSA/MSSA Positive? No No [facility] Specimen Swab - NARES, BOTH SIDES Performing Organization Address City/[facility] Phone Number [facility] CLIA: [id number] [place] [address] [place] [address] THYROID STIMULATING HORMONE (02/04/2020 6:31 AM MANAGER STATISTICS) Pathologist Sig nature TSH 56.10 (H) 0.45 - 4.70 mIU/L [facility] SERVICE S Specimen Blood - VENOUS Performing Organization Address [facility] Phone Number [facility] CLIA: [id number] [place] [address] [place] [address] URINALYSIS (02/03/2020 9:28 PM MANAGER STATISTICS) Pathologist Sig nature APPEARANCE Cloudy (A) Clear [facility] COLOR Zaria (A) Yellow [facility] PH 5.0 4.8 - 8.0 [facility] SP GRAVITY 1.020 1.003 - 1.030 [facility] GLU U QUAL Normal Normal [facility] BLOOD 2+ (A) Negative [facility] KETONES Negative Negative [facility] PROTEIN 100 mg/dL (A) Negative [facility] UROBILIN Normal Normal [facility] BILIRUBIN Negative Negative [facility] NITRITE Negative Negative [facility] LEUK YAMINI 500/uL (A) Negative [facility] RBC/HPF 62 (H) 0 - 3 HPF [facility] WBC/HPF >182 (H) 0 - 5 HPF [facility] BACTERIA Few (A) Negative [facility] MUCOUS Slight (A) Negative LPF [facility] SQ EPITH 3 HPF [facility] WBC CLUMPS 17 (H) <=1 HPF [facility] Specimen Urine - URINE, CLEAN CATCH Performing Organization Address [facility] Phone Number [facility] CLIA: [id number] [place] [address] Lactic Acid Whole Blood (02/03/2020 9:23 PM MANAGER STATISTICS) Pathologist Sig nature LACTIC ACID 1.56 mmol/L [facility] Specimen Blood - VENOUS Performing Organization Address [facility] Phone Number [facility] CLIA: [id number] [place] [address] XR CHEST 1 VW (02/03/2020 6:58 PM MANAGER STATISTICS) Specimen Impressions Performed At PACS/VR/DOSE Moderate cardiomegaly, status post media n sternotomy. No acute pulmonary process. No free air is seen under either hemidiaphragm to sugg est pneumoperitoneum. RL: [id number] AFC: [id number] Narrative Performed At This result has an attachment that is no t available. Ordering physician: YUSRA MERRITT PACS/VR/DOSE INDICATION: Vomiting, shortness of breath COMPARISON: Chest dated 07/12/2018 FINDINGS: AP view of the chest. The patient is status post median sternotomy. There is moderate cardiomegaly. There is p rominent mitral valve calcification. There is no acute pulmonary process. Procedure Note [facility], Radiant Results Inft User - 2019 9:08 PM MANAGER STATISTICS Ordering physician: YUSRA MERRITT INDICATION: Vomiting, shortness of breat h COMPARISON: Chest dated 07/12/2018 FINDINGS: AP view of the chest. The stephen ent is status post median sternotomy. There is moderate cardiomega ly. There is prominent mitral valve calcification. There is no acute pulmona ry process. IMPRESSION Moderate cardiomegaly, status post media n sternotomy. No acute pulmonary process. No free air is seen under either hemidia phragm to suggest pneumoperitoneum. RL: [id number] AFC: [id number] Performing Organization Address City/State/Zipcode Phone Number PACS/VR/DOSE LAB ONLY COVID INTERPRETATION (02/03/2020 6:52 PM MANAGER STATISTICS) COVID DMT Interpretation/Recommendations: [facility] Interpretation SERVICES Molecular NAAT Tests for Active Infection with the JUAN JOSÉ S-CoV-2 Virus: This patient has a history o f testing negative on multiple occasions for the SARS-CoV-2 virus that causes COVID-19 illness, with no prior history of a positive result. The current test results are also negative. This most likely i ndicates that the patient does not have an active infection with the SARS-CoV-2 virus, especially if all of these tests coincide with the patient's current presentation. Gil libra, infection is not comple tely ruled out as the false negative rate for molecular NAAT testing using a nasopharyngeal sample can be up to 30%, mostly dependent on the timing of sample collection in re lation to illness onset and any deficiencies in sampling techniques. If the patient continues to have persistent or worsening symptoms concerning for COVID- 19 illness, a repeat NAAT test (PCR, Rapid ID Now, etc.) should be perform ed, at which time the SARS-CoV-2 virus - if present - may have reached a detectable viral load (usually peaking by the end of the first week of symptoms). Tests for IgM and/or IgG Antibodies to SARS-CoV-2 Viru s: Testing for IgM and IgG anti bodies 1-3 weeks after illness onset will indicate whether the patient has produced antibodies to the virus. At this time, it is not known if the production of antibodies - s pecifically IgG antibodies - indicates whether the patient is immune to future infections with the SARS-CoV-2 virus. Interpretation Result Comments: These interpretation comment s are based upon all COVID-19 testing the patient has had at [facility], including molecular NAAT testing (more commonly known as PCR testing and Rapid ID Now testing) and antibody testing. It does not take i nto account any testing that a patient has had outside of the [facility] medical record. COVID Results SARS-CoV-2 NAAT (no units) [facility] RY Date Value SERVICES 11/17/2019 Not Detected 08/04/2019 Not Detected SARS-CoV-2 Rapid ID NOW (no units) Date Value 02/03/2020 Not Detected 11/26/2019 Not Detected Specimen Swab - NASOPHARYNGEAL SWAB Performing Organization Address City/[facility]/Zipcode Phone Number [facility] CLIA: [id number] [place] [address] [place] [address] COVID-19 (ID NOW RAPID TESTING) (02/03/2020 6:52 PM MANAGER STATISTICS) Pathologist [facility] SARS-CoV-2 Rapid ID Not Detected Not Detected [facility] Specimen Swab - NASOPHARYNGEAL SWAB Narrative Performed At ID NOW COVID-19 Assay is an isothermal nucleic [facility] acid amplification test intended for the qualitative detection of nucleic acid from SARS-CoV-2 viral RNA in nasopharyngeal ([employer]) specimens. It is used under Emergency Use Authorization (EUA) by FDA. The limit of detection (LOD) of the assay is 125 Genome Equivalents/mL. A positive result is indicative of the presence of SARS-CoV-2 RNA. Clinical correlation with patient history and other diagnostic information is necessary to determine patient infection status. A negative (Not Detected) result does not preclude SARS-CoV-2 infection. In patients with clinical symptoms and other tests that are consistent with SARS-CoV-2 infection, negative results should be treated as presumptive negative and a new specimen should be tested with alternative PCR molecular test. Invalid: Please collect a new specimen for repeat patient testing if clinically indicated. Performing Organization Address City/[facility] Phone Number [facility] CLIA: [id number] [place], [place] [address] LABORATORY [address] TROPONIN I (02/03/2020 6:46 PM MANAGER STATISTICS) Pathologist [facility] [place] TROPONIN I 0.048 (H) <=0.034 ng/mL [facility] Specimen Blood - VENOUS Narrative Performed At Equal or Less than 0.034 ng/ml---Normal [facility] Note: Cardiac troponin begins to rise 3-4 hours after the onset of ischemia. Repeat in 4-6 hours if the sample was drawn within 3-4 hours of the onset of the symptom and found normal. Between 0.035 and 0.120 ng/mL--- Borderline. Questionable myocardial injury or necros is Note: Serial measurement may be necessary to confirm or exclude the diagnosis of myocardial injury or necrosis; Clinical correlation (symptoms, EKGs, imaging studies, and others) required; Repeat in 4-6 hours if clinically indicated. Equal or Higher than 0.121 ng/mL---Abnormal. Myocardial Injury or Necrosis Likely Biotin has been reported to cause a negative bias, interpret results relative to patient's use of biotin. Performing Organization Address City/State/Zipcode Phone Number [facility] CLIA: [id number] [place] [address] BASIC METABOLIC PANEL (NA, K, CL, CO2, GLUCOSE, BUN, CREATININE, CA) (02/03/2020 6:46 PM MANAGER STATISTICS) NA 130 (L) 135 - 145 [facility] mmol/L [facility] K 4.5 3.5 - 5.0 [facility] mmol/L [facility] CL 92 (L) 98 - 108 mmol/L [facility] CO2 TOTAL 22 (L) 23 - 31 mmol/L [facility] AGAP 16 2 - 16 [facility] BUN 64 (H) 7 - 23 mg/dL [facility] GLUCOSE 125 (H) 70 - 110 mg/dL [facility] CREATININE 3.31 (H) 0.50 - 1.04 [facility] mg/dL [facility] CALCIUM 9.4 8.6 - 10.6 [facility] mg/dL [facility] eGFR Calculation 13.4 mL/min/1.73m2 [facility] (Non-[facility] LABORATORY [place]ian) eGFR Calculation 16.2 mL/min/1.73m2 [facility] () [facility] Specimen Blood - VENOUS Narrative Performed At Association of Glomerular Filtration Rate (GFR) [facility] and Staging of Kidney Disease* + + +- + | GFR (mL/min/1.73 m2) | With Kidney Damage | Without Kidney Damage + + +- + | >90 | Stage one | Normal + + +- + | 60-89 | Stage two | Decreased GFR + + +- + | 30-59 | Stage three | Stage three + + +- + | 15-29 | Stage four | Stage four + + +- + | <15 (or dialysis) | Stage five | Stage five + + +- + *Each stage assumes the associated GFR level has been in effect for at least three months. Stages 1 to 5, with or without kidney disease, indicate chronic kidney disease. Notes: Determination of stages one and two (with eGFR >59mL/min/1.73 m2) requires estimation of kidney damage for at least three months as defined by structural or functional abnormalities of the kidney, manifested by either: Pathological abnormalities or Markers of kidney damage (including abnormalities in the composition of the blood or urine or abnormalities in imaging tests). Performing Organization Address City/State/Zipcode Phone Number [facility] CLIA: [id number] [place] [address] CBC WITH DIFF (02/03/2020 6:46 PM MANAGER STATISTICS) Pathologist Sig nature WBC 21.93 (H) 4.30 - 11.10 [facility] 10*3/L [facility] RBC 3.42 (L) 3.93 - 5.25 [facility] 10*6/L [facility] HGB 9.6 (L) 11.6 - 15.0 [facility] g/dL [facility] HCT 30.2 (L) 35.7 - 45.2 % [facility] MCV 88.3 80.6 - 95.5 fL [facility] MCH 28.1 25.9 - 32.8 pg [facility] MCHC 31.8 31.6 - 35.1 [facility] g/dL [facility] RDW-SD 53.5 (H) 39.0 - 49.9 fL [facility] RDW-CV 16.9 (H) 12.0 - 15.5 % [facility] PLT 426 (H) 166 - 358 [facility] 10*3/L [facility] MPV 10.6 9.5 - 12.9 fL [facility] NRBC/100 WBC 0.0 0.0 - 10.0 /100 [facility] WBCs [facility] NRBC x10^3 <0.01 10*3/L [facility] GRAN MAT (NEUT) % 67.7 % [facility] IMM GRAN % 1.00 % [facility] LYMPH % 24.6 % [facility] MONO % 4.9 % [facility] EOS % 1.3 % [facility] BASO % 0.5 % [facility] GRAN MAT x10^3(ANC) 14.84 (H) 1.88 - 7.09 [facility] 10*3/uL HOSPITAL LABORATORY IMM GRAN x10^3 0.22 (H) 0.00 - 0.06 [facility] 10*3/uL HOSPITAL LABORATORY LYMPH x10^3 5.40 (H) 1.32 - 3.29 [facility] 103/uL [facility] MONO x10^3 1.08 (H) 0.33 - 0.92 [facility] 10*3/uL [facility] EOS x10^3 0.28 0.03 - 0.39 [facility] 10*3/uL [facility] BASO x10^3 0.11 (H) 0.01 - 0.07 [place] [address]*3/uL [facility] Specimen Blood - VENOUS Performing Organization Address City/[facility]/Zipcode Phone Number [facility] CLIA: [id number] [place], [place] [address] LABORATORY [address] Lactic Acid Whole Blood (02/03/2020 6:46 PM MANAGER STATISTICS) Pathologist [facility] nature LACTIC ACID 2.79 mmol/L [facility] Specimen Blood - VENOUS Performing Organization Address City/[facility]/Zipcode Phone Number [facility] CLIA: [id number] [place] [address] documented in this encounter Visit Diagnoses Diagnosis Vomiting, intractability of vomiting not specified, presence of nausea not specified, unspecified vomiting type - 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 Heart valve replaced by other means Sacral decubitus ulcer, stage III Pressure ulcer, lower back Other specified hypothyroidism Acute cystitis without hematuria Acute cystitis Urinary tract infection, site not specif ied documented in this encounter Administered Medications Medication Order MAR Action Action Date Dose Rate Site acetaminophen (TYLENOL) tablet Given 02/07/2020 12:46 PM MANAGER STATISTICS 650 mg 650 mg 650 mg, Oral, Q6HPRN, Starting 02/04/20 at 2104, Until Discontinued, Routine, Pain (scale 1-3) Given 02/04/2020 9:53 PM MANAGER STATISTICS 650 mg aspirin chewable tablet 81 mg Given 02/08/2020 8:54 AM MANAGER STATISTICS 81 mg 81 mg, Oral, DAILY, First dose on 02/04/20 at 0900, Until Discontinued, Routine Given 02/07/2020 9:05 AM MANAGER STATISTICS 81 mg Given 02/06/2020 8:31 AM MANAGER STATISTICS 81 mg atorvastatin (LIPITOR) tablet 40 mg Given 02/07/2020 8:50 PM MANAGER STATISTICS 40 mg 40 mg, Oral, QHS, First dose on Wed02/05/20 at 2100, Until Discontinued, Routine Given 02/06/2020 8:37 PM MANAGER STATISTICS 40 mg Given 02/05/2020 9:50 PM MANAGER STATISTICS 40 mg collagenase (SANTYL) ointment Given 02/08/2020 11:45 AM MANAGER STATISTICS Topical (Apply To Affected Areas), DAILY, First dose on Wed02/06/20 at 0900, Until Discontinued, Routine Given 02/07/2020 9:06 AM MANAGER STATISTICS Applied 02/06/2020 8:31 AM MANAGER STATISTICS ferrous sulfate tablet 325 mg Given 02/07/2020 8:50 PM MANAGER STATISTICS 325 mg 325 mg, Oral, QPM, First dose on Wed02/05/20 at 1700, Until Discontinued, Routine Given 02/06/2020 4:43 PM MANAGER STATISTICS 325 mg Given 02/05/2020 4:32 PM MANAGER STATISTICS 325 mg levothyroxine (SYNTHROID) tablet 125 mcg Given 02/08/2020 8:54 AM MANAGER STATISTICS 125 mcg 125 mcg, Oral, QAM-0600, First dose (after last modification) on Natalie 02/08/20 at 0600, Until Discontinued, Routine metoprolol tartrate (LOPRESSOR) tablet 2 5 mg Given 02/08/2020 8:54 AM MANAGER STATISTICS 25 mg 25 mg, Oral, BID, First dose (after last modification) on 02/06/20 at 2000, Until Discontinued, Routine Given 02/07/2020 8:50 PM MANAGER STATISTICS 25 mg Given 02/07/2020 9:05 AM MANAGER STATISTICS 25 mg mirtazapine (REMERON) tablet 15 mg Given 02/07/2020 8:51 PM MANAGER STATISTICS 15 mg 15 mg, Oral, QHS, First dose on Wed02/05/20 at 2100, Until Discontinued, Routine Given 02/06/2020 8:37 PM MANAGER STATISTICS 15 mg Given 02/05/2020 9:50 PM MANAGER STATISTICS 15 mg omeprazole (PRILOSEC) capsule 20 mg Given 02/08/2020 8:54 AM MANAGER STATISTICS 20 mg 20 mg, Oral, DAILY, First dose on Wed02/07/20 at 0900, Until Discontinued, Routine Given 02/07/2020 9:05 AM MANAGER STATISTICS 20 mg sodium bicarbonate (ANTACID (SODIUM Given 02/08/2020 8:54 AM CS T 650 mg BICARBONATE)) tablet 650 mg 650 mg, Oral, DAILY, First dose on Wed02/05/20 at 0900, Until Discontinued, Routine Given 02/07/2020 9:05 AM MANAGER STATISTICS 650 mg Given 02/06/2020 8:31 AM MANAGER STATISTICS 650 mg warfarin (COUMADIN) tablet 1 mg 1 mg, Oral, ONCE AT 1700, 1 dose, [facility] at 1700, Routine, INR Goal Range: 2-3, INDICATION (More than one indicatio n for warfarin can be selected): Mechanical AVR Medication Order MAR Action Action Date Dose Rate Site cefTRIAXone (ROCEPHIN) 1,000 mg Given 02/03/2020 9:22 PM MANAGER STATISTICS 1, 000 mg in NaCl 0.9% (NS) 50 mL MINI-BAG 1,000 mg, IV Piggyback, ONCE, 1 dose, 02/03/20 at 2130, 50 mL, Reason for Anti-Infective: Empiric Therapy for Suspected Infection, Empiric Therapy Site: Blood, Duration of therapy: 72 hours cefTRIAXone (ROCEPHIN) 1,000 mg in NaCl Given 02/04/2020 8:52 A M MANAGER STATISTICS 1,000 mg 0.9% (NS) 50 mL MINI-BAG 1,000 mg, IV Piggyback, Q24H ABX, First dose on Wed02/04/20 at 0800, Until Discontinued, 50 mL, Reason for Anti-Infective: Empiric Therapy for Suspected Infection, Empiric Therapy Site: Urine, Duration of therapy: 7 days D5W IV infusion 1,000 mL New Bag 02/06/2020 2:52 AM MANAGER STATISTICS 1,000 mL 100 mL/hr at 100 mL/hr, IV Infusion, ONCE, 1 dose, Tu02/06/20 at 0245, Routine heparin (porcine) injection Given 02/05/2020 8:50 AM MANAGER STATISTICS 5,000 Units Abdomen-SC 5,000 Units 5,000 Units, Subcutaneous, Q12H, First dose on Wed02/04/20 at 0800, Until Discontinued, Routine Given 02/04/2020 9:58 PM MANAGER STATISTICS 5,000 Units Abdo men-SC Given 02/04/2020 8:52 AM MANAGER STATISTICS 5,000 Units Abdo men-SC hydrocortisone (ANUSOL-HC) suppository 2 5 mg Given 02/08/2020 8:54 AM MANAGER STATISTICS 25 mg 25 mg, Rectal, BID, First dose on Wed02/07/20 at 2000, Until Discontinued, Routine Given 02/07/2020 8:51 PM MANAGER STATISTICS 25 mg iohexol (OMNIPAQUE 350 BULK-150 mL) Given 02/05/2020 5:45 PM CS T 100 mL injection 100 mL 100 mL, Intravenous, ONCE, 1 dose, Wed02/05/20 at 1745, Routine KCL (POTASSIUM CHLORIDE) 40 mEq in NaCl 0.9% Given 1:08 PM MANAGER STATISTICS 40 mEq (NS) piggyback 40 mEq, IV Piggyback, ONCE, 1 dose, Wed02/06/20 at 0845, 250 mL levothyroxine (SYNTHROID) tablet 100 mcg Given 02/07/2020 9:05 AM MANAGER STATISTICS 100 mcg 100 mcg, Oral, QAM-0600, First dose (after last modification) on Wed02/05/20 at 0600, Until Discontinued, Routine Given 02/06/2020 8:46 AM MANAGER STATISTICS 100 mcg Given 02/05/2020 6:50 AM MANAGER STATISTICS 100 mcg levothyroxine (SYNTHROID) tablet 88 mcg Given 02/04/2020 6:31 AM MANAGER STATISTICS 88 mcg 88 mcg, Oral, QAM-0600, First dose on Wed02/04/20 at 0600, Until Discontinued, Routine magnesium sulfate in water 4 gram/50 mL (8 %) New Bag 9:05 AM MANAGER STATISTICS 4 g IV Piggyback 4 g 4 g, IV Piggyback, ONCE, 1 dose, Wed02/07/20 at 0815, Routine meropenem (MERREM) 1,000 mg in NaCl 0.9% Given 02/08/2020 5 :35 AM MANAGER STATISTICS 1,000 mg (NS) 100 mL IV piggyback 1,000 mg, IV Piggyback, Administer over 60 Minutes, Q24H ABX, First dose (after last modification) on 02/05/20 at 0400, Until Discontinued, BLANCA, Restricted use approved by: [employer]ING PROVIDER, Reason for Anti-Infective: Documented Infection, Documented Infection Site: Other, Other site: unknown, Duration of Therapy: 7 days Given 02/07/2020 6:14 AM MANAGER STATISTICS 1,000 mg Given 02/06/2020 7:55 AM MANAGER STATISTICS 1,000 mg meropenem (MERREM) 1,000 mg in NaCl 0.9% Given 02/04/2020 1 :23 AM MANAGER STATISTICS 1,000 mg (NS) 100 mL MINI-BAG 1,000 mg, IV Piggyback, Administer over 60 Minutes, ONCE, 1 dose, [place] 02/04/20 at 0215, BLANCA, Restricted use approved by: K[employer] PROVIDER, Reason for Anti-Infective: Documented Infection, Documented Infection Site: Other, Other site: unknown, Duration of Therapy: 7 days meropenem (MERREM) 500 mg in NaCl 0.9% (NS) Given 01/09 3:36 PM MANAGER STATISTICS 500 mg 100 mL MINI-BAG 500 mg, IV Piggyback, Administer over 60 Minutes, Q12H ABX, First dose on 02/04/20 at 1545, Until Discontinued, BLANCA, Restricted use approved by: [address], Reason for Anti-Infective: Empiric Therapy for Suspected Infection, Empiric Therapy Site: Urine, Duration of therapy: 7 days NaCl 0.9% (NS) bolus infusion New Bag 02/03/2020 11:48 PM MANAGER STATISTICS 1,000 mL 100 mL/hr 1,000 mL at 100 mL/hr, 1,000 mL, IV Infusion, ONCE, 1 dose, [place] 02/04/20 at 0045, STAT NaCl 0.9% (NS) bolus infusion New Bag 02/04/2020 5:18 AM MANAGER STATISTICS 1,000 mL 999 mL/hr 1,000 mL at 999 mL/hr, 1,000 mL, IV Piggyback, ONCE, 1 dose, [place] 02/04/20 at 0615, STAT NaCl 0.9% (NS) bolus infusion New Bag 02/03/2020 9:22 PM MANAGER STATISTICS 1,836 mL 999 mL/hr 1,836 mL at 999 mL/hr, 1,836 mL (30 mL/kg 61.2 kg), IV Infusion, ONCE, 1 dose, 02/03/20 at 2045, STAT Polyethylene Glycol 3350 (MIRALAX) powde r 17 g Given 02/04/2020 11:34 AM MANAGER STATISTICS 17 g 17 g, Oral, DAILY, First dose on 02/04/20 at 1030, Until Discontinued, Routine sennosides (SENOKOT) tablet 8.6 mg Given 02/04/2020 11:34 AM MANAGER STATISTICS 8.6 mg 8.6 mg, Oral, DAILY, First dose on 02/04/20 at 1030, Until Discontinued, Routine simvastatin (ZOCOR) tablet 20 mg Given 02/04/2020 9:54 PM MANAGER STATISTICS 20 mg 20 mg, Oral, QHS, First dose on 02/04/20 at 2100, Until Discontinued, Routine sodium hypochlorite 0.025% (Dakin's) sully ution Given 02/08/2020 11:45 AM MANAGER STATISTICS Topical, BID, 6 doses, First dose on 02/05/20 at 2000, Last dose on Natalie 02/08/20 at 0800, Routine Given 02/07/2020 8:51 PM MANAGER STATISTICS Given 02/07/2020 9:06 AM MANAGER STATISTICS warfarin (COUMADIN) tablet 1 mg Given 02/06/2020 4:44 PM MANAGER STATISTICS 1 mg 1 mg, Oral, DAILY AT 1700, First dose on 02/05/20 at 1700, Until Discontinued, Routine, INR Goal Range: 2-3, INDICATION (More than one indication for warfarin can be selected): Mechanical AVR Given 02/05/2020 6:10 PM MANAGER STATISTICS 1 mg documented in this encounter Additional Health Concerns Infection Onset Date Last Indicated Resolved Time COVID-19 Rule Out 02/03/2020 02/03/2020 02/03/2020 7: 54 PM MANAGER STATISTICS documented as of this encounter Insurance Payer Benefit Plan / Subscriber ID Effective Phone Address T ype Group Dates MEDICARE MEDICARE PART [id number] 2004-Pre [phone] [address] [employer] sent [phone] [place] [phone] [facility] [id number] 2008-Pr [address] [facility] esent [id number] Supplement MEDICARE [place] SUPPLEMENT [place] [id number] documented as of this encounter
--- OUTSIDE RECORDS SUMMARY | 2020-02-22 18:51 | XMS REPORT | Summary of Care ---
:1940 Author Organization [facility] Address [address] [place] [id number] Care Team Providers Name Role Phone Ramu Sutherland MD Primary Care Provider [phone] Reason for Visit Reason Comments TEST RESULTS Encounter Details Date Type Department Care Team Description 02/10/2020 Telephone [facility] and Deb Us MD TEST RESULTS Clinics [address] [place] [address]. [address] [place] [phone] [place] [address] Allergies Active Allergy Reactions Severity Noted Date Comments Morphine Sulfate Hallucinations 02/05/2020 CANNOT TA KE ANY TYPE OF MORPHINE documented as of this encounter (statuses as of 02/10/2020) Medications Medication Sig Dispensed Refills Start Date End Date Status aspirin 81 mg chewable Take 81 mg by 0 Active tablet mouth daily. SERTraline 50 mg Take 1 tablet 90 tablet 3 11/17/2016 Active tabletIndications: by mouth daily. Depression, unspecified depression type mirtazapine 15 mg Take 15 mg by 0 Active tablet mouth at bedtime. sodium bicarbonate 650 Take 650 mg by 0 Active mg tablet mouth daily. metoprolol tartrate 25 Take 25 mg by 0 Active mg tablet mouth 2 (two) times daily. atorvastatin 40 mg Take 40 mg by 0 Active tablet mouth at bedtime. ferrous sulfate 325 mg Take 325 mg by 0 Active (65 mg iron) tablet mouth every evening. levothyroxine 125 mcg Take 1 tablet 30 tablet 2 02/08/2020 Active tabletIndications: by mouth every Other specified morning for 90 hypothyroidism days. warfarin 1 mg Take 1 tablet 45 tablet 0 02/08/2020 05/08/2020 Active tabletIndications: Hx by mouth every of CABG, History of other day in mechanical aortic the evening for valve replacement 90 days. collagenase 250 Apply to 30 g 3 02/08/2020 Act [facility] unit/gram affected ointmentIndications: area(s) daily. Sacral decubitus ulcer, stage III sodium hypochlorite Apply to 1 L 3 02/08/2020 Active 0.025% Soln area(s) 2 (two) solutionIndications: times daily for Sacral decubitus 90 days. ulcer, stage III omeprazole 20 mg Take 1 capsule 90 capsule 0 02/08/20202020 Active capsuleIndications: Hx by mouth daily of CABG, History of for 90 days. mechanical aortic valve replacement documented as of this encounter (statuses as of 02/10/2020) Active Problems Problem Noted Date Urinary tract infection, site not specified 02/04/2020 Acquired hypothyroidism 02/12/2017 High cholesterol Diet-controlled diabetes mellitus HTN (hypertension), benign Overview: follows with Dr. Anguiano. Bashir's palsy Other specified hypothyroidism documented as of this encounter (statuses as of 02/10/2020) Immunizations Name Administration Dates Next Due Influenza [...] with No / Unsure 02/03/2020 6:19 PM MACHINE II COREMAKER someone who was confirmed or suspected to have Coronavirus / COVID-19? documented as of this encounter Last Filed Vital Signs Not on filedocumented in this encounter Miscellaneous Notes Telephone Encounter - Deb Us MD - 02/10/2020 2:[address]. Harry from radiology as well as Dr. Hommel, I called the patient to discuss the new findings on the final read of her CT A/P from her recent hospitalization. The patient's and daughter explained that she was slowly recovering and over the last few days, she has been eating a little more and has been moving around a little more. I stated that I was glad to hear that. I explained that I had some new information from the scan of her abdomen that was done while inpatient. I explained that on the initial radiologist read, there was no evidence of abscess or infection, which is why we felt comfortable letting the patient go home es pecially since she was doing better clinically as well. However, I explained that the head radiologist had just read the scan and found a fluid collection that looked concerning for infection. However,we have no imaging from after her recent colectomy to compare this image to. I explained that the best course of action for them would be to call the surgeons at [facility] and let them know about these findings. The surgeons at [facility] should then request the medical records from [facility] of the scan and review the images to see if this is a new fluid collection, or if this was expected based on the surgical changes and interventions they made. I also stated that if any further surgical intervention was needed, it would be best if they went back to [facility] to the surgeons who performed her prior colectomy. The patient's daughter stated she was unhappy with the care the patient received at [facility] and was reluctant to take her back there. She also expressed frustration about finding out this new information from the scan so many days after her mother was discharged from [facility]. I apologized for the delay, but reassured her that we had her mother's best interests at heart and did the best that we were able with the information that we had at the time. She thanked me for the call and said she would reach out to the [facility] surgeons and the [facility] medical records office. Deb Us MD Internal Medicine, PGY-3 [place] Team Pager: [phone] documented in this encounter Plan of Treatment Health Maintenance Due Date Last Done Comments EYE EXAM 10/28/1950 LDL-C 10/28/1949 URINE MICROALBUMIN 10/28/1949 Depression Screening 1951 FOOT EXAM 10/28/1957 DTaP,Tdap,and Td Vaccines (1 - 10/28/1958 Tdap) Zoster Recombinant Vaccine 10/28/1989 (SHINGRIX) (1 of 2) Medicare Wellness Visit 10/28/2004 PNEUMOCOCCAL VACCINES 65+ (2 of 2 11/18/2016 11/19/2015 - PPSV23) HgA1C 11/09/2018 05/10/2018 INFLUENZA VACCINE (#1) 2019 11/19/2015 CREATININE (SERUM) 02/07/2021 02/08/2020, 02/07/2020, 02/06/2020, Additional history exists Osteoporosis Screening 11/21/2028 11/21/2018 documented as of this encounter Results Not on filedocumented in this encounter Insurance Payer Benefit Plan / Subscriber ID Effective Phone Address T ype Group Dates MEDICARE MEDICARE PART [id number] 2004-Pre [phone] [address] edicare A & B sent [id number] [phone] [facility] [id number] [address]-Pr [address] [facility] esent [address] Supplement MEDICARE [place] SUPPLEMENT [place] [id number] documented as of this encounter
--- OUTSIDE RECORDS SUMMARY | 2020-02-22 18:51 | XMS REPORT | Summary of Care ---
:1940 Author Organization [facility] - Health Address [address] [place] [address] Care Team Providers Name Role Phone Kristen Montgomery MD Primary Care Provider [phone] Encounter Details Date Type Department Care Team Description 01/31/2020 Orders Only [facility] Doctor Unassigned, No [address] [facility] [place] [address] [address] [place] [address] Allergies Active Allergy Reactions Severity Noted Date Comments Morphine Sulfate Hallucinations 02/05/2020 CANNOT TA KE ANY TYPE OF MORPHINE documented as of this encounter (statuses as of 02/08/2020) Medications Medication Sig Dispensed Refills Start Date End Date Status aspirin 81 mg Take 81 mg by 0 Lutz spended chewable tablet mouth daily. SERTraline 50 mg Take 1 tablet by 90 tablet 3 11/17/2016 Suspended tabletIndications: mouth daily. Depression, unspecified depression type Additional Information documented as of this encounter (statuses as [...] with No / Unsure 02/03/2020 6:19 PM CAREER ORIENTATION TEACHER someone who was confirmed or suspected to have Coronavirus / COVID-19? documented as of this encounter Last Filed Vital Signs Not on filedocumented in this encounter Plan of Treatment Health [...] Name Priority Date/Time Associated Diagnosis Comme nts HOME HEALTH - OTHER Routine 01/31/2020 12:01 AM CAREER ORIENTATION TEACHER documented in this encounter Results Not on filedocumented in this encounter Additional Health Concerns Infection Onset Date Last Indicated Resolved Time COVID-19 Rule Out 02/03/2020 02/03/2020 02/03/2020 7: 54 PM CAREER ORIENTATION TEACHER documented as of this encounter Insurance Payer Benefit Plan / Subscriber ID Effective Phone Address T ype Group Dates MEDICARE MEDICARE PART [id number] 2004-Pre [phone] [address] edicare A & B sent [phone] [place] [phone] [facility] [id number] 2008-Pr [address] [facility] esent [address] Supplement MEDICARE [place] SUPPLEMENT [place] [id number] documented as of this encounter
--- OUTSIDE RECORDS SUMMARY | 2020-02-22 18:51 | XMS REPORT | Summary of Care ---
:1940 Author Organization [facility] Address [address] [place], [place] [id number] Care Team Providers Name Role Phone Kristen Montgomery MD Primary Care Provider Reason for Referral MRI/CAT Scan (STAT) Status Reason Specialty Diagnoses / Referred By Referred To Procedures Contact Contact New Request Diagnostic Diagnoses Dizziness Itz Penaloza, Radiology Procedures CT ANGIOGRAM NECK [address] [place] [address] [place] [address] MRI/CAT Scan (STAT) Status Reason Specialty Diagnoses / Referred By Referred To Procedures Contact Contact New Request Diagnostic Diagnoses Dizziness Itz Penaloza, Radiology Procedures CT ANGIOGRAM HEAD [address] [place] [address] [place] [address] MRI/CAT Scan (STAT) Status Reason Specialty Diagnoses / Referred By Referred To Procedures Contact Contact New Request Diagnostic Diagnoses Dizziness Itz Penaloza, Radiology Procedures CT HEAD WO CONTRAST [address] [place] [address] [place] [id number] Reason for Visit Reason Comments Dizziness Numbness left face Auth/Cert Status Reason Specialty Diagnoses / Referred By Referred To Procedures Contact Contact Emergency Medicine [facility] ergency Dept [address] [place] [address] Fax: Encounter Details Date Type Department Care Team Description 11/26/2019 Emergency ADC-Emergency Itz Penaloza MD Dizziness (Primary Dx); Department [address] Elevated troponin; [address] [facility] [address] TIA (transient ischemic attack) [place] [address] [place] [address] [phone] Allergies No Known Allergiesdocumented as of this encounter (statuses as of 11/26/2019) Medications Medication Sig Dispensed Refills Start Date End Date Status simvastatin (ZOCOR) 40 Take 20 mg by 0 Active mg tablet mouth at bedtime. lisinopril-hydrochlorot Take 1 tablet by 0 Active hiazide mouth daily. (PRINZIDE,ZESTORETIC) 10-12.5 mg per tablet aspirin 81 mg chewable Take 81 mg by 0 Active tablet mouth daily. SERTraline 50 mg Take 1 tablet by 90 tablet 3 11/17/2016 Active tabletIndications: mouth daily. Depression, unspecified depression type levothyroxine 88 mcg Take 1 tablet by 90 tablet 3 02/12/2017 Active tabletIndications: mouth every Acquired hypothyroidism morning. traMADOL 50 mg Take 1 tablet by 12 tablet 0 07/12/2018 Active tabletIndications: mouth every 8 Rotator cuff disorder, (eight) hours as left needed for Pain (scale 7-10). etodolac 200 mg Take 1 capsule 24 capsule 0 07/12/2018 Active capsuleIndications: by mouth every 8 Rotator cuff disorder, (eight) hours. left documented as of this encounter (statuses as of 11/26/2019) Active Problems Problem Noted Date Acquired hypothyroidism 02/12/2017 High cholesterol Diet-controlled diabetes mellitus HTN (hypertension), benign Overview: follows with Dr. Anguiano. Bashir's palsy Other specified hypothyroidism documented as of this encounter (statuses as of 11/26/2019) Immunizations Name Administration Dates Next Due Influenza [...] been in contact with No / Unsure 11/26/2019 5:48 PM CDT someone who was confirmed or suspected to have Coronavirus / COVID-19? documented as of this encounter Last Filed Vital Signs Vital Sign Reading Time Taken Comments Blood Pressure 142/53 11/26/2019 5:00 PM CDT Pulse 76 11/26/2019 5:00 PM CDT Temperature 37.6 C (99.7 F) 11/26/2019 1:04 PM CDT Respiratory Rate 14 11/26/2019 5:00 PM CDT Oxygen Saturation 100% 11/26/2019 5:00 PM CDT Inhaled Oxygen Concentration - - Weight 59.9 kg (132 lb) 11/26/2019 1:05 PM CDT Height - - Body Mass Index 22.66 11/17/2019 9:06 AM CDT documented in this encounter ED Notes Lita Sneed RN - 11/26/2019 1:01 PM CDTDaughter states: " She had a heart cath yesterday. She went to bed at 0930 last night and woke up [id number] am today and c/o dizziness and numbness in her left face. 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 documented in this encounter Miscellaneous Notes ED Nurse Note - Lita Sneed RN - 11/26/2019 5:48 PM CDTReport given to Jan Tai Brake Repairer Hydraulic with [facility]. D Nurse Note - Lita Sneed RN - 11/26/2019 5:19 PM CDTReport given to Norma CARRASCO at [facility] ED. D Nurse Note - Lita Sneed RN - 11/26/2019 1:01 PM CDTPt reports in triage to physician that she currently denies numbness or headache but felt them earlier today. documented in this encounter Plan of Treatment Date Type Specialty Care Team Description 11/29/2019 Appointment Radiology Name Type Priority Associated Diagnoses Date/Ti me LAB ONLY COVID LAB STAT Dizziness 11/26/2019 3:48 PM INTERPRETATION Elevated troponin CDT URINE CULTURE LAB STAT Dizziness 11/26/2019 4:47 PM Elevated troponi n CDT TIA (transient ischemic attack) Name Type Priority Associated Diagnoses Order S chedule LAB ONLY COVID LAB Routine Dizziness ONCE for 1 Occurrences INTERPRETATION Elevated troponin starting 11/26/2019 until 0 URINE CULTURE LAB BLANCA Dizziness BLANCA for 1 Occurrences Elevated troponi n starting 11/26/2019 TIA (transient until 020 ischemic attack) Health Maintenance Due Date Last Done Comments EYE EXAM 10/28/1950 LDL-C 10/28/1949 URINE MICROALBUMIN 10/28/1949 Depression Screening 1951 FOOT EXAM 10/28/1957 DTaP,Tdap,and Td Vaccines (1 - Tdap) 10/28/1958 Zoster Recombinant Vaccine (SHINGRIX) 10/28/1989 (1 of 2) Medicare Wellness Visit 10/28/2004 PNEUMOCOCCAL VACCINES 65+ (2 of 2 - 11/18/2016 11/19/2015 PPSV23) HgA1C 11/09/2018 05/10/2018 CREATININE (SERUM) 07/13/2019 07/12/2018, 05/10/2018, 05/30/2015 INFLUENZA VACCINE (#1) 2019 11/19/2015 Osteoporosis Screening 11/21/2028 11/21/2018 documented as of this encounter Procedures Procedure Name Priority Date/Time Associated Comments Diagnosis COVID-19 (ID NOW STAT 11/26/2019 3:48 Dizziness Results for this RAPID TESTING) PM CDT Elevated troponin procedur e are in the results section. URINALYSIS STAT 11/26/2019 2:41 Dizziness Results for this PM CDT procedure are i n the results section. CT ANGIOGRAM NECK STAT 11/26/2019 1:53 Dizziness Result s for this PM CDT procedure are i n the results section. CT ANGIOGRAM HEAD STAT 11/26/2019 1:53 Dizziness Result s for this PM CDT procedure are i n the results section. CT HEAD WO CONTRAST STAT 11/26/2019 1:45 Dizziness Resu lts for this PM CDT procedure are i n the results section. ACTIVATED PARTIAL STAT 11/26/2019 1:15 Dizziness Result s for this THRMPLAS TRISTEN PM CDT procedure are i n the results section. PROTHROMBIN TIME / STAT 11/26/2019 1:15 Dizziness Resul ts for this INR PM CDT procedure are i n the results section. CBC WITH DIFF STAT 11/26/2019 1:15 Dizziness Results fo r this PM CDT procedure are i n the results section. BASIC METABOLIC PANEL STAT 11/26/2019 1:15 Dizziness Re sults for this (NA, K, CL, CO2, PM CDT procedure a re in GLUCOSE, BUN, the results CREATININE, CA) section. HEPATIC FUNCTION STAT 11/26/2019 1:15 Dizziness Results for this PANEL (94774) PM CDT procedure are in (ALB,T.PRO,BILI the results T,BU/BC,ALT,AST,ALK section. PHOS) TROPONIN I STAT 11/26/2019 1:15 Dizziness Results for this PM CDT procedure are i n the results section. CONSENT/REFUSAL FOR Routine 11/26/2019 12:58 DIAGNOSIS AND PM CDT TREATMENT documented in this encounter Results COVID-19 (ID NOW RAPID TESTING) (11/26/2019 3:48 PM CDT) SARS-CoV-2 Rapid ID Not Detected Not Detected [facility] Specimen Swab - NASOPHARYNGEAL SWAB Narrative Performed At ID NOW COVID-19 Assay is an isothermal nucleic [facility] acid amplification test intended for the qualitative detection of nucleic acid from SARS-CoV-2 viral RNA in nasopharyngeal (PANTS PRESSER) specimens. It is used under Emergency Use [...] testing if clinically indicated. Performing Organization Address City/State/Zipcode Phone Number [facility] CLIA: [id number] [place] [address] Urinalysis (11/26/2019 2:41 PM CDT) Pathologist Sig nature APPEARANCE Clear Clear [facility] COLOR Yellow Yellow [facility] PH 5.5 4.8 - 8.0 [facility] SP GRAVITY <=1.005 1.003 - 1.030 [facility] GLU U QUAL Negative Negative [facility] BLOOD Negative Negative [facility] KETONES Negative Negative [facility] PROTEIN Negative Negative [facility] UROBILIN 0.2 mg/dL 0-1.0 mg/dL [facility] BILIRUBIN Negative Negative [facility] NITRITE Negative Negative [facility] LEUK YAMINI Negative Negative [facility] RBC/HPF 1 0 - 3 HPF [facility] WBC/HPF 1 0 - 5 HPF [facility] BACTERIA Few (A) Negative [facility] SQ EPITH 5 HPF [facility] Specimen Urine - URINE, CLEAN CATCH Performing Organization Address City/State/Zipcode Phone Number [facility] CLIA: [id number] [place] [address] [address] ANGIOGRAM NECK (11/26/2019 1:53 PM CDT) Specimen Impressions Performed At PACS/VR/DOSE CTA neck: Atherosclerotic plaquing at mandeep th carotid bifurcations with approximately 50% narrowing on the right and 30% narrowing on the left. CTA HEAD: No evidence of aneurysm. Calcified focus at the basilar apex (new from 2018) without CTA evidence of flow limitation. Mandeep th posterior cerebral arteries and superior cerebellar arterie s opacify in a normal fashion. I discussed this finding with Dr. Penaloza at 3:18 PM on . Based on the clinical presentation and the patien t's physical examination details provided by Dr. 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 . Preliminary Report Dictated by Melva t: Saul Ta I, Natalie Stockton MD., have reviewed this stud y and agree with the above report. Narrative Performed At CT ANGIOGRAM NECK, CT ANGIOGRAM HEAD PACS/VR/DOSE HISTORY: Arterial stricture / occlusio n, head neck COMPARISON: Same day CT head TECHNIQUE: CT head and neck angiograms w ere performed before and after intravenous administration of contrast. Sagittal and c oronal MIPS reformats were generated FINDINGS: Head: The PICA origin is visualized on the left. PICA-AICA v ariant is present on the right. The superior cerebellar arteries are unrema rkable. The posterior cerebral arteries are unremarkable. 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 Again noted is a hyperdense calcified area projecting over the basilar artery apex. However, there is good filling of the basilar artery proximal t o this lesion as well as of the bilateral posterior cerebral a rteries and superior cerebral arteries. This suggests that this does not represent a n occlusive embolus but rather represents atherosclerotic pl aquing. The distal cervical, petrous, cavernous and supraclinoid inte rnal carotid arteries are unremarkable. Mild atherosclerotic disea se seen in the cavernous carotid arteries bilaterally. The anterior and m iddle cerebral arteries are unremarkable. An anterior communicating artery is visualized. Neck: Aortic arch and arch vessel origins: Nor mal three-vessel arch. Innominate and subclavian arteries: Rockwell nt without high-grade stenosis. Common carotids: Atherosclerotic plaquing is noted in the bilateral common carotid arteries. There is mild irregular to the proxi mal right ICA causing approximately 50% narrowing. There is also atheroscler otic plaquing at the left carotid bifurcation involving the proximal left I CA with less than 30% narrowing. Vertebral arteries: Right vertebral gildardo ry origin demonstrates mild plaquing without high-grade stenosis. The left vertebr al arteries from the aortic arch and demonstrates mild approx imately 30-40% narrowing. Cervical soft tissues: Unremarkable. Mul tiple absent maxillary and mandibular teeth. Lung apices: Calcified granuloma in the right middle lobe. The lungs are otherwise unremarkable. Cervical spine: Incidentally noted poste rior C1 arch fusion defect. Procedure Note [facility], Radiant Results Inft User - 2019 3:[address] ANGIOGRAM NECK, CT ANGIOGRAM HEAD HISTORY: Arterial stricture / occlusion , head neck COMPARISON: Same day CT head TECHNIQUE: CT head and neck angiograms w ere performed before and after intravenous administration of contrast. Sagittal and coronal MIPS reformats were generated FINDINGS: Head: The PICA origin is visualized on the lef t. PICA-AICA variant is present on the right. The superior cerebellar arter ies are unremarkable. The posterior cerebral arteries are unremarkable. 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 Again noted is a hyperdense calcified area projecting ove r the basilar artery apex. However, there is good filling of the basilar art roxie proximal to this lesion as well as of the bilateral posterior cerebral a rteries and superior cerebral arteries. This suggests that this does n ot represent an occlusive embolus but rather represents atherosclerotic pl aquing. The distal cervical, petrous, cavernous and supraclinoid inte rnal carotid arteries are unremarkable. Mild atherosclerotic disea se seen in the cavernous carotid arteries bilaterally. The anterior and m iddle cerebral arteries are unremarkable. An anterior communicating artery is visualized. Neck: Aortic arch and arch vessel origins: Nor mal three-vessel arch. Innominate and subclavian arteries: Rockwell nt without high-grade stenosis. Common carotids: Atherosclerotic plaquin g is noted in the bilateral common carotid arteries. There is mild irregula r to the proximal right ICA causing approximately 50% narrowing. There is al so atherosclerotic plaquing at the left carotid bifurcation involving the p roximal left ICA with less than 30% narrowing. Vertebral arteries: Right vertebral gildardo ry origin demonstrates mild plaquing without high-grade stenosis. Th e left vertebral arteries from the aortic arch and demonstrates mild approx imately 30-40% narrowing. Cervical soft tissues: Unremarkable. Mul tiple absent maxillary and mandibular teeth. Lung apices: Calcified granuloma in the right middle lobe. The lungs are otherwise unremarkable. Cervical spine: Incidentally noted poste rior C1 arch fusion defect. IMPRESSION CTA neck: Atherosclerotic plaquing at mandeep th carotid bifurcations with approximately 50% narrowing on the right and 30% narrowing on the left. CTA HEAD: No evidence of aneurysm. Calci fied focus at the basilar apex (new from 2018) without CTA evidence of flow limitation. Both posterior cerebral arteries and superior cerebellar arterie s opacify in a normal fashion. I discussed this finding with Dr. Tremaine killian 3:18 PM on 11/26/2019. Based on the clinical presentation and the patien t's physical examination details provided by Dr. 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 . Preliminary Report Dictated by Melva killian: Saul Ta I, Natalie Stockton MD., have revie wed this study and agree with the above report. Performing Organization Address City/State/Zipcode Phone Number PACS/VR/DOSE CT ANGIOGRAM HEAD (11/26/2019 1:53 PM CDT) Specimen Impressions Performed At PACS/VR/DOSE CTA neck: Atherosclerotic plaquing at mandeep th carotid bifurcations with approximately 50% narrowing on the right and 30% narrowing on the left. CTA HEAD: No evidence of aneurysm. Calcified focus at the basilar apex (new from 2018) without CTA evidence of flow limitation. Mandeep th posterior cerebral arteries and superior cerebellar arterie s opacify in a normal fashion. I discussed this finding with Dr. Penaloza at 3:18 PM on . Based on the clinical presentation and the patien t's physical examination details provided by Dr. 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 . Preliminary Report Dictated by Marthan t: Saul Ta I, Natalie Stockton MD., have reviewed this stud y and agree with the above report. Narrative Performed At CT ANGIOGRAM NECK, CT ANGIOGRAM HEAD PACS/VR/DOSE HISTORY: Arterial stricture / occlusio n, head neck COMPARISON: Same day CT head TECHNIQUE: CT head and neck angiograms w ere performed before and after intravenous administration of contrast. Sagittal and c oronal MIPS reformats were generated FINDINGS: Head: The PICA origin is visualized on the left. PICA-AICA v ariant is present on the right. The superior cerebellar arteries are unrema rkable. The posterior cerebral arteries are unremarkable. 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 Again noted is a hyperdense calcified area projecting over the basilar artery apex. However, there is good filling of the basilar artery proximal t o this lesion as well as of the bilateral posterior cerebral a rteries and superior cerebral arteries. This suggests that this does not represent a n occlusive embolus but rather represents atherosclerotic pl aquing. The distal cervical, petrous, cavernous and supraclinoid inte rnal carotid arteries are unremarkable. Mild atherosclerotic disea se seen in the cavernous carotid arteries bilaterally. The anterior and m iddle cerebral arteries are unremarkable. An anterior communicating artery is visualized. Neck: Aortic arch and arch vessel origins: Nor mal three-vessel arch. Innominate and subclavian arteries: Rockwell nt without high-grade stenosis. Common carotids: Atherosclerotic plaquing is noted in the bilateral common carotid arteries. There is mild irregular to the proxi mal right ICA causing approximately 50% narrowing. There is also atheroscler otic plaquing at the left carotid bifurcation involving the proximal left I CA with less than 30% narrowing. Vertebral arteries: Right vertebral gildardo ry origin demonstrates mild plaquing without high-grade stenosis. The left vertebr al arteries from the aortic arch and demonstrates mild approx imately 30-40% narrowing. Cervical soft tissues: Unremarkable. Mul tiple absent maxillary and mandibular teeth. Lung apices: Calcified granuloma in the right middle lobe. The lungs are otherwise unremarkable. Cervical spine: Incidentally noted poste rior C1 arch fusion defect. Procedure Note [facility], Radiant Results Inft User - 2019 3:[address] ANGIOGRAM NECK, CT ANGIOGRAM HEAD HISTORY: Arterial stricture / occlusion , head neck COMPARISON: Same day CT head TECHNIQUE: CT head and neck angiograms w ere performed before and after intravenous administration of contrast. Sagittal and coronal MIPS reformats were generated FINDINGS: Head: The PICA origin is visualized on the lef t. PICA-AICA variant is present on the right. The superior cerebellar arter ies are unremarkable. The posterior cerebral arteries are unremarkable. 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 Again noted is a hyperdense calcified area projecting ove r the basilar artery apex. However, there is good filling of the basilar art roxie proximal to this lesion as well as of the bilateral posterior cerebral a rteries and superior cerebral arteries. This suggests that this does n ot represent an occlusive embolus but rather represents atherosclerotic pl aquing. The distal cervical, petrous, cavernous and supraclinoid inte rnal carotid arteries are unremarkable. Mild atherosclerotic disea se seen in the cavernous carotid arteries bilaterally. The anterior and m iddle cerebral arteries are unremarkable. An anterior communicating artery is visualized. Neck: Aortic arch and arch vessel origins: Nor mal three-vessel arch. Innominate and subclavian arteries: Rockwell nt without high-grade stenosis. Common carotids: Atherosclerotic plaquin g is noted in the bilateral common carotid arteries. There is mild irregula r to the proximal right ICA causing approximately 50% narrowing. There is al so atherosclerotic plaquing at the left carotid bifurcation involving the p roximal left ICA with less than 30% narrowing. Vertebral arteries: Right vertebral gildardo ry origin demonstrates mild plaquing without high-grade stenosis. Th e left vertebral arteries from the aortic arch and demonstrates mild approx imately 30-40% narrowing. Cervical soft tissues: Unremarkable. Mul tiple absent maxillary and mandibular teeth. Lung apices: Calcified granuloma in the right middle lobe. The lungs are otherwise unremarkable. Cervical spine: Incidentally noted poste rior C1 arch fusion defect. IMPRESSION CTA neck: Atherosclerotic plaquing at mandeep th carotid bifurcations with approximately 50% narrowing on the right and 30% narrowing on the left. CTA HEAD: No evidence of aneurysm. Calci fied focus at the basilar apex (new from 2018) without CTA evidence of flow limitation. Both posterior cerebral arteries and superior cerebellar arterie s opacify in a normal fashion. I discussed this finding with Dr. Tremaine killian 3:18 PM on 11/26/2019. Based on the clinical presentation and the patien t's physical examination details provided by Dr. 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 . Preliminary Report Dictated by Melva t: Natalie Denney MD., have revie wed this study and agree with the above report. Performing Organization Address City/State/Zipcode Phone Number PACS/VR/DOSE CT HEAD WO CONTRAST (11/26/2019 1:45 PM CDT) Specimen Impressions Performed At PACS/VR/DOSE No evidence of intracranial hemorrhage, mass or large acute infarction. Focal hyperdensity at the basilar apex, new from the previous study may represent atherosclerotic plaquing, another possibilit y being a calcified embolus to this location. This is new fr om the previous study from 2018. Preliminary Report Dictated by Resident: Natalie Denney MD., have reviewed this stud y and agree with the above report. Narrative Performed At CT HEAD WO CONTRAST PACS/VR/DOSE HISTORY: Dizziness, non-specific Dizziness, persistent /recurrent, cardiac or vascular cause suspected COMPARISON: 04/02/2017 TECHNIQUE: Contiguous axial imaging to the base of [facility] was obtained with 2.5 mm slices without intravenous contra st. 5 mm axial, coronal, and sagittal reformats were obtained. FINDINGS: The ventricles and cerebral sulci are normal in calibe r and configuration. No hydrocephalus, midline shift or patho logical extra-axial fluid collection is present. The basal cistern s are unremarkable. Focal hyperdensity is noted at the basil ar apex, new from the previous study from 2018. This could represent ca lcification at the basilar apex. Less likely possibility is a calcified e mbolus. There is no acute intracranial hemorrhage or significa nt mass effect. Deep white matter and periventricular hypoattenuating foci are present, likely represent small vessel ischemic changes. The aguilar-white matter differentiation is preserved. Aspect score: 10 The mastoid air cells and paranasal air sinuses are clear. The calvarium and central skull base are unremarkable. Procedure Note [facility], Radiant Results Inft User - 2019 3:[address] HEAD WO CONTRAST HISTORY: Dizziness, non-specific Dizzine ss, persistent/recurrent, cardiac or vascular cause suspected COMPARISON: 04/02/2017 TECHNIQUE: Contiguous axial imaging to t he base of skull was obtained with 2.5 mm slices without intravenous contra st. 5 mm axial, coronal, and sagittal reformats were obtained. FINDINGS: The ventricles and cerebral sulci are no rmal in caliber and configuration. No hydrocephalus, midline shift or patho logical extra-axial fluid collection is present. The basal cistern s are unremarkable. Focal hyperdensity is noted at the basil ar apex, new from the previous study from 2018. This could represent ca lcification at the basilar apex. Less likely possibility is a calcified e mbolus. There is no acute intracranial hemorrhag e or significant mass effect. Deep white matter and periventricular hypoatt enuating foci are present, likely represent small vessel ischemic changes. The aguilar-white matter differentiation is preserved. Aspect score: 10 The mastoid air cells and paranasal air sinuses are clear. The calvarium and central skull base are unremarkable. IMPRESSION No evidence of intracranial hemorrhage, mass or large acute infarction. Focal hyperdensity at the basilar apex, new from the previous study may represent atherosclerotic plaquing, anot her possibility being a calcified embolus to this location. This is new fr om the previous study from 2018. Preliminary Report Dictated by Resident: Natalie Denney MD., have revie wed this study and agree with the above report. Performing Organization Address City/State/Zipcode Phone Number PACS/VR/DOSE Prothrombin Time (PT) / INR (11/26/2019 1:15 PM CDT) PROTIME PATIENT 15.1 (H) 12.0 - 14.7 [facility] LABORATORY INR 1.3Comment: Normal [facility] INR <1.1; Warfarin [facility] Therapeutic range LABORATORY 2.0 to 3.0 or 2.5 to 3.5, depending upon the indications. Specimen Blood - ARM, RIGHT Performing Organization Address City/[facility] Phone Number [facility] CLIA: [id number] [place] [address] Troponin I (11/26/2019 1:15 PM CDT) Pathologist Sig nature TROPONIN I 0.056 (H) <=0.034 ng/mL [facility] LABORATORY Specimen Blood - ARM, RIGHT Narrative Performed At Equal or Less than 0.034 ng/ml---Normal [facility] LABORATORY Note: Cardiac troponin begins to rise [...] patient's use of biotin. Performing Organization Address City/[facility] Cent[facility]ode Phone Number [facility] CLIA: [id number] [place] [address] aPTT (11/26/2019 1:15 PM CDT) Pathologist Sig nature APTT Patient 27 23 - 38 Seconds [facility] LABORATORY Specimen Blood - ARM, RIGHT Narrative Performed At The [facility] patient population mean normal value [facility] LABORATORY for aPTT is 30 seconds. Performing Organization Address City/State/[facility] Cent[facility]ode Phone Number [facility] CLIA: [id number] [place] [address] [address] Hepatic Function Panel (ALB, T.PRO, BILI T, BU/BC, ALT, AST, ALK PHOS) (11/26/2019 1:15 PM CDT) Pathologist Sig nature TOTAL BILI 0.6 0.1 - 1.1 mg/dL [facility] LABORATORY BILI UNCON 0.5 0.1 - 1.1 mg/dL [facility] LABORATORY BILI CONJ 0.0 0.0 - 0.3 mg/dL [facility] LABORATORY T PROTEIN 6.7 6.3 - 8.2 g/dL [facility] LABORATORY ALBUMIN 3.8 3.5 - 5.0 g/dL [facility] LABORATORY ALK PHOS 60 34 - 122 U/L [facility] LABORATORY ALTv 17 5 - 35 U/L [facility] LABORATORY AST(SGOT) 25 13 - 40 U/L [facility] LABORATORY Specimen Blood - ARM, RIGHT Performing Organization Address City/State/Zipcode Phone Number [facility] CLIA: [id number] [place] [address] LABORATORY [address] [facility] Basic Metabolic Panel (NA, K, CL, CO2, GLUCOSE, BUN, CREATININE, CA) (11/26/2019 1:15 PM CDT) [facility] nature NA 136 135 - 145 [facility] mmol/L [facility] LABORATORY K 3.8 3.5 - 5.0 [facility] mmol/L [facility] LABORATORY CL 101 98 - 108 mmol/L [facility] LABORATORY CO2 TOTAL 27 23 - 31 mmol/L [facility] LABORATORY AGAP 8 2 - 16 [facility] LABORATORY BUN 22 7 - 23 mg/dL [facility] LABORATORY GLUCOSE 190 (H) 70 - 110 mg/dL [facility] LABORATORY CREATININE 0.84 0.50 - 1.04 [facility] mg/dL [facility] LABORATORY CALCIUM 9.1 8.6 - 10.6 [facility] mg/dL [facility] LABORATORY eGFR Calculation 65.2 mL/min/1.73m2 [facility] ([facility] LABORATORY Ecuadorean) eGFR Calculation 79.1 mL/min/1.73m2 [facility] LABORATORY Specimen Blood - ARM, RIGHT Narrative Performed At Association of Glomerular Filtration Rate (GFR) [facility] LABORATORY and Staging of Kidney Disease* + [...] tests). Performing Organization Address City/State/Zipcode Phone Number [facility] CLIA: [id number] [place] [address] CBC with Differential (11/26/2019 1:15 PM CDT) [facility] WBC 10.38 4.30 - 11.10 [facility] 10*3/L [facility] LABORATORY RBC 3.28 (L) 3.93 - 5.25 [facility] 10*6/L [facility] LABORATORY HGB 9.8 (L) 11.6 - 15.0 [facility] g/dL [facility] LABORATORY HCT 30.2 (L) 35.7 - 45.2 % [facility] LABORATORY MCV 92.1 80.6 - 95.5 fL [facility] LABORATORY MCH 29.9 25.9 - 32.8 pg [facility] LABORATORY MCHC 32.5 31.6 - 35.1 [facility] g/dL [facility] LABORATORY RDW-SD 43.0 39.0 - 49.9 fL [facility] LABORATORY RDW-CV 12.9 12.0 - 15.5 % [facility] LABORATORY PLT 212 166 - 358 [facility] 10*3/L HOSPITAL LABORATORY MPV 10.3 9.5 - 12.9 fL [facility] LABORATORY NRBC/100 WBC 0.0 0.0 - 10.0 /100 [facility] WBCs [facility] LABORATORY NRBC x10^3 <0.01 10*3/L [facility] LABORATORY GRAN MAT (NEUT) % 84.0 % [facility] LABORATORY IMM GRAN % 0.40 % [facility] LABORATORY LYMPH % 9.8 % [facility] LABORATORY MONO % 4.8 % [facility] LABORATORY EOS % 0.6 % [facility] LABORATORY BASO % 0.4 % [facility] LABORATORY GRAN MAT x10^3(ANC) 8.72 (H) 1.88 - 7.09 [facility] 10*3/uL [facility] LABORATORY IMM GRAN x10^3 0.04 0.00 - 0.06 [facility] 10*3/uL [facility] LABORATORY LYMPH x10^3 1.02 (L) 1.32 - 3.29 [facility] 10*3/uL HOSPITAL LABORATORY MONO x10^3 0.50 0.33 - 0.92 [facility] 10*3/uL HOSPITAL LABORATORY EOS x10^3 0.06 0.03 - 0.39 [facility] 10*3/uL HOSPITAL LABORATORY BASO x10^3 0.04 0.01 - 0.07 [facility] 10*3/uL [facility] LABORATORY Specimen Blood - ARM, RIGHT Performing Organization Address City/State/Zipcode Phone Number [facility] CLIA: [id number] [place] [address] documented in this encounter Visit Diagnoses Diagnosis Dizziness - Primary Dizziness and giddiness Elevated troponin Other abnormal blood chemistry TIA (transient ischemic attack) Unspecified transient cerebral ischemia documented in this encounter Administered Medications Medication Order MAR Action Action Date Dose Rate Site iohexol (OMNIPAQUE 350 BULK-100 Given 11/26/2019 1:46 PM CDT 10 0 mL mL) injection 100 mL 100 mL, Intravenous, ONCE, 1 dose, 11/26/19 at 1400, Routine documented in this encounter Additional Health Concerns Infection Onset Date Last Indicated Resolved Time COVID-19 Rule Out 11/26/2019 11/26/2019 11/26/2019 4: 26 PM CDT documented as of this encounter Insurance Payer Benefit Plan / Subscriber ID Effective Phone Address T ype Group Dates MEDICARE MEDICARE PART [id number] 2004-Pre [phone] [address] [employer]ai eddanyel A [employer] B sent [phone] [place] [phone] [facility] [id number] 2008-Pr [address] [facility] [address] Supplement MEDICARE [place] SUPPLEMENT ROB[place] TORRES [id number] (Home) [place] [address] documented as of this encounter
--- OUTSIDE RECORDS SUMMARY | 2020-02-22 18:51 | XMS REPORT | Summary of Care ---
:1940 Author Organization [facility] Address [address] [place] [address] Care Team Providers Name Role Phone Ramu Sutherland MD Primary Care Provider [phone] Reason for Visit Reason Comments Transition Of Care Encounter Details Date Type Department Care Team Description 02/12/2020 Transition of Care [facility] Lisa Ragland, steel box toe inserter Of Care [facility]- [address] [place] [phone] Allergies Active Allergy Reactions Severity Noted Date Comments Morphine Sulfate Hallucinations 02/05/2020 CANNOT TA KE ANY TYPE OF MORPHINE documented as of this encounter (statuses as of 02/12/2020) Medications Medication Sig Dispensed Refills Start Date End Date Status cefpodoxime 100 mg Take 1 tablet 14 tablet 0 02/12/20202020 Active tabletIndications: by mouth 2 Chest pain, (two) times unspecified type daily for 7 days. aspirin 81 mg Take 81 mg by 0 Lutz spended chewable tablet mouth daily. SERTraline 50 mg Take 1 tablet 90 tablet 3 11/17/2016 Suspended tabletIndications: by mouth daily. Depression, unspecified depression type Additional Information mirtazapine 15 mg tablet Take 15 mg by 0 Suspended mouth at bedtime. sodium bicarbonate 650 mg Take 650 mg by 0 Suspended tablet mouth daily. metoprolol tartrate 25 mg Take 25 mg by 0 Suspended tablet mouth 2 (two) times daily. atorvastatin 40 mg tablet Take 40 mg by 0 Suspended mouth at bedtime. ferrous sulfate 325 mg Take 325 mg by 0 Suspended (65 mg iron) tablet mouth every evening. levothyroxine 125 mcg Take 1 tablet by 30 tablet 2 02/08/2020 05/08/2020 Suspended tabletIndications: Other mouth every specified hypothyroidism morning for 90 days. Additional Information warfarin 1 mg Take 1 tablet 45 tablet 0 02/08/2020 05/08/2020 Suspended tabletIndications: Hx of by mouth every CABG, History of other day in mechanical aortic valve the evening for replacement 90 days. Additional Information collagenase 250 unit/gram Apply to affected 30 g 3 02/07 Suspended ointmentIndications: Sacral area(s) daily. decubitus ulcer, stage III Additional Information sodium hypochlorite 0.025% Apply to area(s) 1 L 3 02/0705/08/2020 Suspended Soln solutionIndications: 2 (two) times Sacral decubitus ulcer, stage daily for 90 III days. Additional Information omeprazole 20 mg Take 1 capsule 90 capsule 0 02/08/20202020 Suspended capsuleIndications: Hx of by mouth daily CABG, History of for 90 days. mechanical aortic valve replacement Additional Information documented as of this encounter (statuses as of 02/12/2020) Active Problems Problem Noted Date HEATHER (acute kidney injury) 02/12/2020 Urinary tract infection, site not specified 02/04/2020 Acquired hypothyroidism 02/12/2017 High cholesterol Diet-controlled diabetes mellitus HTN (hypertension), benign Overview: follows with Dr. Anguiano. Bashir's palsy Other specified hypothyroidism documented as of this encounter (statuses as of 02/12/2020) Immunizations Name Administration Dates Next Due Influenza High Dose 11/19/2015 Influenza High Dose Quad 10/27/2019 Pneumococcal 13 Conjugate, PCV13 (Prevnar 13) 11/19/2015 documented as of this encounter Social History Tobacco Use Types Packs/Day Years Used Date Never Smoker Smokeless Tobacco: Never Used Alcohol Use Drinks/Week oz/Week Comments No Financial Resource Strain Answer Date Recorded How hard is it for you to pay for the very basics like Not h merly at all 02/12/2020 food, housing, medical care, and heating? Food Insecurity Answer Date Recorded Within the past 12 months, you worried that your food would Never true 02/12/2020 run out before you got money to buy more. Within the past 12 months, the food you bought just didn't N ever true 02/12/2020 last and you didn't have money to get more. Transportation Needs Answer Date Recorded In the past 12 months, has lack of transportation kept you f rom No 02/12/2020 medical appointments or from getting medications? In the past 12 months, has lack of transportation kept you f rom No 02/12/2020 meetings, work, or getting things needed for daily living? Sex Assigned at Date Recorded Not on file COVID-19 Exposure Response Date Recorded In the last month, have you been in contact with No / Unsure 02/11/2020 8:55 PM BUS OR TRUCK GARAGE MECHANIC someone who was confirmed or suspected to have Coronavirus / COVID-19? documented as of this encounter Last Filed Vital Signs Not on filedocumented in this encounter Miscellaneous Notes Telephone Encounter - Lisa Ragland RN - 02/12/2020 10:12 AM BUS OR TRUCK GARAGE MECHANIC TRANSITIONAL CARE MANAGEMENT ASSESSMENT 02/12/2020 Claudette Sherman [id number] CHIEF COMPLAINT: malaise, nausea/vomiting CM reviewed patient's chart. Pt readmitted to [facility] MEDICATION SUR[facility] unit. Transition CM follow-up call deferred at this time. NATE Beckford, RN-BC, CCRN Transition Casualty Insurance Claim Adjuster Nurse Clinician IV Transitions of Care Care Management Team Office: [phone] [email or web address] documented in this encounter Plan of Treatment [...] INFLUENZA VACCINE (#1) 2019 11/19/2015 CREATININE (SERUM) 02/10/2021 02/11/2020, 02/08/2020, 02/07/2020, Additional history exists Osteoporosis Screening 11/21/2028 11/21/2018 documented as of this encounter Results Not on filedocumented in this encounter Insurance Payer Benefit Plan / Subscriber ID Effective Phone Address T e Group Dates MEDICARE MEDICARE PART [id number] 2004-Pre [phone] [address] [employer]are A & B sent [phone] [place] [phone] [facility] [id number] 2008-Pr [address] [facility] esent [address] Supplement MEDICARE [place] SUPPLEMENT [place] [id number] documented as of this encounter
--- OUTSIDE RECORDS SUMMARY | 2020-02-22 18:51 | XMS REPORT | Summary of Care ---
:1940 Author Organization [facility] - Health Address [address] [place] [address] Care Team Providers Name Role Phone Kristen Montgomery MD Primary Care Provider [phone] Encounter Details Date Type Department Care Team Description 02/03/2020 Orders Only [facility] Doctor Unassigned, No [address] [facility] [place] [address] [address] [id number] Allergies No Known Allergiesdocumented as of this encounter (statuses as of 02/03/2020) Medications Medication Sig Dispensed Refills Start Date [...] as of this encounter (statuses as of 02/03/2020) Active Problems Problem Noted Date Acquired hypothyroidism 02/12/2017 High cholesterol Diet-controlled diabetes mellitus HTN (hypertension), benign Overview: follows with Dr. Anguiano. Bashir's palsy Other specified hypothyroidism documented as of this encounter (statuses as of 02/03/2020) Immunizations Name Administration Dates Next Due Influenza High Dose 11/19/2015 Pneumococcal 13 Conjugate, PCV13 (Prevnar 13) 11/19/2015 documented as of this encounter Social History Tobacco Use Types Packs/Day Years Used Date Never Smoker Smokeless Tobacco: Never Used Alcohol Use Drinks/Week oz/Week Comments No Sex Assigned at Date Recorded Not on file documented as of this encounter Last Filed [...] INFLUENZA VACCINE (#1) 2019 11/19/2015 CREATININE (SERUM) 11/25/2020 11/26/2019, 07/12/2018, 05/10/2018, Additional history exists Osteoporosis Screening 11/21/2028 11/21/2018 documented as of this encounter Procedures Procedure Name Priority Date/Time Associated Diagnosis Comme nts CONSENT/REFUSAL FOR Routine 02/03/2020 6:07 PM [facility]NOS[facility] TREAT[facility] documented in this encounter Results Not on filedocumented in this encounter Insurance Payer Benefit Plan / Subscriber ID Effective Phone Address T ype Group Dates MEDICARE MEDICARE PART [id number] 2004-Pre [phone] [address] duran A & B sent [phone] [place] [id number] [facility] [id number] 2008-Pr [address] [facility] esent [address] Supplement MEDICARE [place] SUPPLEMENT [place] TOR[place] [id number] documented as of this encounter
--- OUTSIDE RECORDS SUMMARY | 2020-02-22 18:54 | XMS REPORT | Summary of Care ---
:1940 Author Organization [facility] Address [address] [place] [address] Care Team Providers Name Role Phone Ramu Sutherland MD Primary Care Provider [phone] Reason for Visit Reason Comments Transition Of Care Encounter Details Date Type Department Care Team Description 02/22/2020 Transition of Care [facility] Lisa Ragland, sales service assistant Of Care [facility]- [address] [place] [phone] Allergies Active Allergy Reactions Severity Noted Date Comments Morphine Sulfate Hallucinations 02/05/2020 CANNOT TA KE ANY TYPE OF MORPHINE documented as of this encounter (statuses as of 02/22/2020) Medications Medication Sig Dispensed Refills Start Date End Date Status aspirin 81 mg chewable Take 81 mg by 0 Active tablet mouth daily. SERTraline 50 mg Take 1 tablet 90 tablet 3 11/17/2016 Active tabletIndications: by mouth daily. Depression, unspecified depression type mirtazapine 15 mg Take 15 mg by 0 Active tablet mouth at bedtime. metoprolol tartrate 25 Take 25 mg by [...] Other specified morning for 90 hypothyroidism days. omeprazole 20 mg Take 1 capsule 90 capsule 0 02/08/20202020 Active capsuleIndications: Hx by mouth daily of CABG, History of for 90 days. mechanical aortic valve replacement fluconazole 200 mg Take 1 tablet 10 tablet 0 02/21/20202020 Active tabletIndications: by mouth daily Chest pain, for 10 days. unspecified type warfarin 3 mg Take 1 tablet 30 tablet 1 02/21/2020 03/22/2020 Active tabletIndications: by mouth every Chest pain, evening for 30 unspecified type days. sodium bicarbonate 650 Take 2 tablets 180 tablet 0 02/21/2020 03/22/2020 Active mg tabletIndications: by mouth 3 Chest pain, (three) times unspecified type daily for 30 days. diphenoxylate-atropine Take 1 tablet 20 tablet 0 02/21/2020 Active 2.5-0.025 mg by mouth every tabletIndications: 6 (six) hours Chest pain, for 5 days. unspecified type psyllium 3.4 gram Take 1 Packet 120 Packet 0 02/21/20202020 Active packetIndications: by mouth 4 Chest pain, (four) times unspecified type daily for 30 days. documented as of this encounter (statuses as of 02/22/2020) Active Problems Problem Noted Date E46 Unspecified severe protein-calorie malnutrition 0 02/14/2020 HEATHER (acute kidney injury) 02/12/2020 Wound infection 02/12/2020 Urinary tract infection, site not specified 02/04/2020 Acquired hypothyroidism 02/12/2017 High cholesterol Diet-controlled diabetes mellitus HTN (hypertension), benign Overview: follows with Dr. Anguiano. Bashir's palsy Other specified hypothyroidism documented as of this encounter (statuses as of 02/22/2020) Immunizations Name Administration Dates Next Due Influenza [...] with No / Unsure 02/11/2020 8:55 PM OUTBOUND SUPERVISOR someone who was confirmed or suspected to have Coronavirus / COVID-19? documented as of this encounter Last Filed Vital Signs Not on filedocumented in this encounter Miscellaneous Notes Telephone Encounter - Lisa Ragland RN - 02/22/2020 12:40 PM CST TRANSITIONAL CARE MANAGEMENT ASSESSMENT 02/22/2020 Claudette Sherman [id number] Claudette Sherman is a 79 year old /White female was admitted on 02/11/20 to [facility], ADC MED SURG. She was discharged on 02/21/20 with discharge disposition of HR- Routine Discharge. Admitting Physician: Thais Viera Discharge Diagnosis: Urinary retention Hyponatremia-improving Ostomy leakage UTI/Cystitis Linked Episodes Type: Episode: Status: Noted: Resolved: Last update: Updated by: TRANSITION OF CARE TCM Active 02/22/2020 02/22/2020 12:35 PM Lisa Ragland, RN Comments: TCM Xmd-yoqd-xs-face outreach documentation: Discharge Assessment Chart Assessed: 02/22/20 TCM Outreach Completed: 02/22/20 Do you have a few minutes to speak with me about how you are doing at home?: Yes(Dtr reports HH nurse is withpt right now. Dtr reports pt's BP was 105/59 and vomited once last night. Dtr unsure if pt vomited last night since medicines were given on an empty stomach. Pt did not vomit today.) Dtr reports telling sister to not give meds on an empty stomach again. Dtr reports inability to be with patient and father at this time due to 1-yr old grandson testing positive for covid. Dtr reports family is looking into hiring a private duty nurse "hopefully" to monitor patient. Dtr narrated to CMsome of the "struggles" dtr has been dealing with the past few months. CM listen attentively. Dtr appreciative of call and denies any questions/concerns at this time. Discharge Instructions Do you understand your at-home instructions?: Yes Medications Have you filled your prescriptions and do you have them in your home? : Yes(Dtr reports pt has meds at home and taking as directed. Denies any questions at this time.) Do you know how to take your medications?: Yes Can you provide me with the names or descriptions of any eoig-yge-bilrbtn or supplements you are currently taking?: Patient declined Supplies Did you receive applicable home medical supplies/equipment?: N/A Follow Up Appointment Has a follow up appointment been scheduled?: No(Family will schedule visit) May I assist with scheduling this appointment?: Patient has outside PCP Do you have any questions about your follow up appointments?: No Are you able to get to your appointment? Who will be taking you?: Yes Home Health Assistance Has the home health nurse contacted you since you've been home?: Yes(Dtr reports nurse is visiting with pt now.) Name of Home Health Agency: [address] [address] () [phone] (F) [phone] Previous or current Home Health Care Agency: Current Survey - Recognition Is there anything you would like to share about your recent hospitalization, or anyone you would like to recognize?: No Do you have any suggestions for improvement?: No Do you have any other questions or concerns at this time?: No Future Appointments: Future Appointments Provider Department Dept Phone 02/27/2020 10:00 AM Eleanor Renteria RN [facility] [phone] 03/11/2020 3:00 PM Levar Mariscal MD [facility] [phone] 03/14/2020 4:15 PM Apryl Nunez MD [facility] General Surgery- [place] [phone] NATE Beckford, RN-BC, CCRN Transition Bi Lead Nurse Clinician IV Transitions of Care Management Team Office: [phone] [email or web address] documented in this encounter Plan of Treatment Date Type Specialty Care Team Description 02/27/2020 Nurse Visit Surgery Eleanor Renteria RN [address] [place] [phone] 03/11/2020 Office Visit Urology Levar Mariscal MD [address] [place] [address]. [place], [place] [phone] 03/14/2020 Office Visit Surgery Apryl Nunez MD [address] [facility] [address] [place] [address] Health Maintenance Due Date Last Done Comments EYE EXAM 10/28/1950 LDL-C 10/28/1949 URINE MICROALBUMIN 10/28/1949 Depression Screening 1951 FOOT EXAM 10/28/1957 DTaP,Tdap,and Td Vaccines (1 - 10/28/1958 Tdap) Zoster Recombinant Vaccine 10/28/1989 (SHINGRIX) (1 of 2) Medicare Wellness Visit 10/28/2004 PNEUMOCOCCAL VACCINES 65+ (2 of 2 11/18/2016 11/19/2015 - PPSV23) HgA1C 11/09/2018 05/10/2018 CREATININE (SERUM) 02/20/2021 02/21/2020, 02/20/2020, 02/19/2020, Additional history exists Osteoporosis Screening 11/21/2028 11/21/2018 INFLUENZA VACCINE Completed 10/27/2019, 11/19/2015 documented as of this encounter Results Not on filedocumented in this encounter Additional Health Concerns Infection Onset Date Last Indicated Resolved Time Contact- MDRO 02/16/2020 02/16/2020 documented as of this encounter Insurance Payer Benefit Plan / Subscriber ID Effective Phone Address T ype Group Dates MEDICARE MEDICARE PART [id number] 2004-Pre [phone] [address] edicare A & B sent [phone] [address] [id number] [facility] [id number] 2008-Pr [address] [facility] esent [phone] Supplement MEDICARE [place] SUPPLEMENT [place] [id number] documented as of this encounter
--- OUTSIDE RECORDS SUMMARY | 2020-02-22 18:54 | XMS REPORT | Summary of Care ---
:1940 Author Organization [facility] Address [address] [place] [address] Care Team Providers Name Role Phone Ramu Sutherland MD Primary Care Provider [phone] Reason for Visit Reason Comments Transition Of Care Encounter Details Date Type Department Care Team Description 02/22/2020 Transition of Care [facility] Lisa Ragland, pearl fisherman Of Care [facility]- [address] [place] [phone] Allergies Active Allergy Reactions Severity Noted Date [...] with No / Unsure 02/11/2020 8:55 PM 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 documented as of this encounter Last Filed Vital Signs Not on filedocumented in this encounter Miscellaneous Notes Telephone Encounter - Lisa Ragland RN - 02/22/2020 12:40 PM CST TRANSITIONAL CARE MANAGEMENT ASSESSMENT 02/22/2020 Claudette Sherman [id number] Claudette Sherman is a 79 year old /White female was admitted on 02/11/[address] [facility], ADC MED SURG. She was discharged on 02/21/20 with discharge disposition of HR- Routine Discharge. Admitting Physician: Thais Viera Discharge Diagnosis: Urinary retention Hyponatremia-improving Ostomy leakage UTI/Cystitis Linked Episodes Type: Episode: Status: Noted: Resolved: Last update: Updated by: TRANSITION OF CARE TCM Active 02/22/2020 02/22/2020 12:35 PM Lisa Ragland, RN Comments: TCM Tfz-egxf-ax-face outreach documentation: Readmission Questions: Was patient discharged from any acute care hospital within the last 30 day: yes Were all questions regarding previous illness/diagnosis answered prior to discharge: yes Did you have any difficulties with your discharge instructions: no Were you able to go to your follow-up discharge appointments: no If No, comment: pt readmitted Any difficulties after discharge with medications: no Any difficulties after discharge with transportation: no Any difficulties after discharge with physical conditions, support, or other limitations: no Did patient refuse services that were recommended on the previous admission: no Was patient non-compliant with the previously recommended treatment: no Discharge Assessment Chart Assessed: 02/22/20 TCM Outreach [...] with the names or descriptions of any cyef-jda-xmiuiez or supplements you are currently taking?: Patient [...] pt now.) Name of Home Health Agency: [address] [address] () [phone] (F) [phone] Previous or current Home Health Care Agency: [...] Phone 02/27/2020 10:00 AM Eleanor Renteria RN [facility] [phone] 03/11/2020 3:00 PM Levar Mariscal MD [facility] [phone] 03/14/2020 4:15 PM Apryl Nunez MD [facility] [phone] NATE Beckford, RN-BC, CCRN Transition Printed Circuit Layout Taper Nurse Clinician IV Transitions of Care Management Team Office: [phone] [email or web address] documented in this encounter Plan of Treatment Date Type Specialty Care Team Description 02/27/2020 Nurse Visit Surgery Eleanor Renteria RN [address] [place] [address] 03/11/2020 Office Visit Urology Levar Mariscal MD [address] [place] [address]. [place], [place] [phone] 03/14/2020 Office Visit Surgery Apryl Nunez MD [address] [facility] 2.[address] [place], [place] [phone] Health Maintenance Due Date Last Done Comments [...] T ype Group Dates MEDICARE MEDICARE PART [id number] 2004-Pre [phone] [address] edicare A & B sent [phone] [place] [id number] [facility] [id number] 2008-Pr [address] [facility] esent [phone] Supplement MEDICARE [place] SUPPLEMENT [place] TORRES [id number] documented as of this encounter
--- OUTSIDE RECORDS SUMMARY | 2020-02-22 18:54 | XMS REPORT | Summary of Care ---
:1940 Author Organization [facility] Address [address] [place] [id number] Care Team Providers Name Role Phone Vinnie Meek MD Primary Care Provider [phone] Reason for Referral (Routine) Status Reason Specialty Diagnoses / Referred By Referred To Procedures Contact Contact New Request RUKHSANA-SURGERY / Diagnoses Chest pain, unspecified type Aldujaili, Aymen, Surgery Procedures Discharge Follow-Up: Specialty Service RUKHSANA-SURGERY; [address] [place] [phone] (Routine) Status Reason Specialty Diagnoses / Referred By Referred To Procedures Contact Contact New Request URO-UROLOGY Diagnoses Chest pain, unspecified type Shurtleff, Procedures Discharge Follow-Up: Specialty Service URO-UROLOGY; 2 Weeks ROBERT Brown [id number] [address] [place] [phone] (Routine) Status Reason Specialty Diagnoses / Referred By Referred To Procedures Contact Contact New Request Diagnoses Chest pain, unspecified type Shurtleff, Ena Brown, Procedures Discharge Follow-up: PCP VINNIE MEEK; [place] [id number] [address] [facility] [address] [phone] [place], [place] Phone: [phone] Phone: Fax: MRI/CAT Scan (STAT) Status Reason Specialty Diagnoses / Referred By Referred To Procedures Contact Contact New Request Diagnostic Diagnoses Transaminitis Nivia Teran, Radiology Procedures CT ABDOMEN PELVIS WO CONTRAST [address] [place] [address]. [place] [phone] Radiology Services (STAT) Status Reason Specialty Diagnoses / Referred By Referred To Procedures Contact Contact New Request Diagnostic Diagnoses Chest pain, unspecified type Ariana Hutchins Radiology Procedures Chest 1 View J, DO [address] [place], [place] [id number] Reason for Visit Reason Comments Back Pain Chest Pain Auth/Cert Status Reason Specialty Diagnoses / Referred By Referred To Procedures Contact Contact Emergency Medicine [facility] [address] [place] [phone] Fax: Encounter Details Date Type Department Care Team Description 02/11/2020 - [facility] Medicine Ariana Hutchins, DO [address] [place] [phone] HEATHER (acute kidney 02/21/2020 Encounter Surgery Unit Nivia Teran MD [address] [place] [address]. [place], [place] [id number] injury) [address] [place] [address] Basil Redman MD [address] [place] [address] [phone] [place] [address] Allergies Active Allergy Reactions Severity Noted Date Comments Morphine Sulfate Hallucinations 02/05/2020 CANNOT TA KE ANY TYPE OF MORPHINE documented as of this encounter (statuses as of 02/21/2020) Medications Medication Sig Dispensed Refills Start Date End Date Status aspirin 81 mg Take 81 mg by 0 Ac tive chewable tablet mouth daily. SERTraline 50 mg Take 1 tablet 90 tablet 3 11/17/2016 Active tabletIndications: by mouth Depression, daily. unspecified depression type mirtazapine 15 mg Take 15 mg by 0 Active tablet mouth at bedtime. metoprolol tartrate Take 25 mg by 0 [...] morning for 90 Other specified days. hypothyroidism omeprazole 20 mg Take 1 capsule 90 capsule 0 02/08/2020 Active capsuleIndications: by mouth daily 1 Hx of CABG, History for 90 days. of mechanical aortic valve replacement fluconazole 200 mg Take 1 tablet 10 tablet 0 02/21/2020 Active tabletIndications: by mouth daily 1 Chest pain, for 10 days. unspecified type warfarin 3 mg Take 1 tablet 30 tablet 1 02/21/2020 A ctive tabletIndications: by mouth every 1 Chest pain, evening for 30 unspecified type days. sodium bicarbonate Take 2 tablets 180 tablet 0 02/21/202003/11 Active 650 mg by mouth 3 1 tabletIndications: (three) times Chest pain, daily for 30 unspecified type days. diphenoxylate-atropi Take 1 tablet 20 tablet 0 02/21/202002/08 Active ne 2.5-0.025 mg by mouth every 1 tabletIndications: 6 (six) hours Chest pain, for 5 days. unspecified type psyllium 3.4 gram Take 1 Packet 120 Packet 0 02/21/2020 Active packetIndications: by mouth 4 1 Chest pain, (four) times unspecified type daily for 30 days. sodium bicarbonate Take 650 mg by 0 Discontinued 650 mg tablet mouth daily. 1 warfarin 1 mg Take 1 tablet 45 tablet 0 02/08/2020 D iscontinued tabletIndications: by mouth every 1 Hx of CABG, History other day in of mechanical aortic the evening valve replacement for 90 days. collagenase 250 Apply to 30 g 3 02/08/2020 Dis continued unit/gram affected 1 ointmentIndications: area(s) daily. Sacral decubitus ulcer, stage III sodium hypochlorite Apply to 1 L 3 02/08/2020 Discontinued 0.025% Soln area(s) 2 1 solutionIndications: (two) times Sacral decubitus daily for 90 ulcer, stage III days. cefpodoxime 100 mg Take 1 tablet 14 tablet 0 02/12/2020 tabletIndications: by mouth 2 1 Chest pain, (two) times unspecified type daily for 7 days. documented as of this encounter (statuses as of 02/21/2020) Active Problems Problem Noted Date E46 Unspecified severe protein-calorie malnutrition 0 02/14/2020 HEATHER (acute kidney injury) 02/12/2020 Wound infection 02/12/2020 Urinary tract infection, site not specified 02/04/2020 Acquired hypothyroidism 02/12/2017 High cholesterol Diet-controlled diabetes mellitus HTN (hypertension), benign Overview: follows with Dr. Anguiano. Bashir's palsy Other specified hypothyroidism documented as of this encounter (statuses as of 02/21/2020) Immunizations Name Administration Dates Next Due Influenza High Dose 11/19/2015 Influenza High Dose Quad 10/27/2019 Pneumococcal 13 Conjugate, PCV13 (Prevnar 13) 11/19/2015 documented as of this encounter Social History Tobacco Use Types Packs/Day Years Used Date Never Smoker Smokeless Tobacco: Never Used Tobacco Cessation: Counseling Given: No Alcohol Use Drinks/Week oz/Week Comments No Financial [...] with No / Unsure 02/11/2020 8:55 PM SENIOR OFFICE SUPPORT ASSISTANT SOSA someone who was confirmed or suspected to have Coronavirus / COVID-19? documented as of this encounter Last Filed Vital Signs Vital Sign Reading Time Taken Comments Blood Pressure 118/64 02/21/2020 4:09 PM SENIOR OFFICE SUPPORT ASSISTANT SOSA Pulse 91 02/21/2020 4:09 PM SENIOR OFFICE SUPPORT ASSISTANT SOSA Temperature 36.6 C (97.9 F) 02/21/2020 4:09 PM SENIOR OFFICE SUPPORT ASSISTANT SOSA Respiratory Rate 16 02/21/2020 4:09 PM SENIOR OFFICE SUPPORT ASSISTANT SOSA Oxygen Saturation 99% 02/21/2020 4:09 PM SENIOR OFFICE SUPPORT ASSISTANT SOSA Inhaled Oxygen Concentration - - Weight 54 kg (119 lb) 02/21/2020 4:30 AM SENIOR OFFICE SUPPORT ASSISTANT SOSA Height 147.3 cm (4' 10") 02/12/2020 1:57 AM SENIOR OFFICE SUPPORT ASSISTANT SOSA Body Mass Index 24.87 02/12/2020 1:57 AM SENIOR OFFICE SUPPORT ASSISTANT SOSA documented in this encounter Discharge Instructions AppointmentsTera Avalos - 02/21/2020 2:21 PM CSTYour follow up appointment with Dr. Meek is Wednesday March 04, 2020 at 2:40pm. Address is: [address] [address] OR OFFICE SUPPORT ASSISTANT SOSA Additional InstructionsQueta Michel, RN - 02/12/2020 Each time ostomy leaks, the ostomy bag needs to be removed and changed. Do not reinforce ostomy bag,do not apply towels or gauze to catch drainage. To change ostomy, remove the old bag and clean the surrounding skin with plain soap and water. Sprinkle ostomy powder on the surrounding irritated skin and spread with fingers to create a thin layer ofthe skin. Then apply no sting skin prep over the previously powdered areas. Then take the moldable rings and shape them so they fit around the ileostomy. Cut the new ostomy bag so that it fits AROUND the moldable ring (should not sit on top of the rings). Apply new ostomy bag and ensure the sticky part is completely adhered to patient. AttachmentsThe following attachments cannot be sent through Care Everywhere. Bladder Infection, Female (Adult) (Eritrean)Dehydration (Adult) (Eritrean)Caring For Your Stoma: Ileostomy (Eritrean)Ileostomy, Discharge Instructions (Eritrean) documented in this encounter Progress Notes Schuyler Frazier MD - 02/21/2020 7:05 PM CST Medicine Progress Note Date of Service: 02/21/2020 Chief Complaint: Feeling better 24-HOUR EVENTS: 79 year-old female with pmh of hypothyroidism, DM, HLD, HTN, history of bedsore in her tailbone who presents to the ED secondary to back pain that started earlier today. Patient had a recent CABG surgery in November 2019 and intestinal blockage s/p resection with subsequent ostomy and wound vac. Recently discharged [facility] on 02/03/2020 due to urinary tract infection and sepsis. Upon discharge, patient continue to have decreased oral intake, weakness, dysuria. Family was concerned when patient was noted to have decreased urine output for hours yesterday. Family got concerned that she is retaining urine. +abdominal pain (around ostomy bag) Patient was admitted with acute kidney injury secondary to prerenal hydration kidney function normalized SUBJECTIVE: Feeling better has posit-void for 200 CURRENT MEDICATIONS - reviewed. PHYSICAL EXAM: BP 118/64 (BP Location: Right arm, Patient Position: Supine) | Pulse 91 | Temp 36.6 C (97.9 F)(Temporal Artery) | Resp 16 | Ht 4' 10" (1.473 m) | Wt 119 lb (54 kg) | SpO2 99% | BMI 24.87 kg/m Intake/Output Summary (Last 24 hours) at 02/21/2020 1905 Last data filed at 02/21/2020 1300 Gross per 24 hour Intake 500 ml Output 700 ml Net -200 ml General: alert and oriented x 3; no apparent distress HEENT: pupils equal, round, reactive to light; extraocular movements intact; oropharynx clear; moistmucous membranes, normocephalic atraumatic Neck: supple, no lymphadenopathy, no bruits, no JVD, full range of motion Lungs: clear to auscultation bilaterally Cardio: S1, S2 normal; no murmurs, rubs or gallops, regular rate and rhythm Abdomen: soft; non-tender; non-distended; normoactive bowel sounds, colostomy bag, dullness over thesuprapubic area Extremities: no clubbing, cyanosis, or edema Skin: no rashes Neuro: cranial nerves II through XII grossly intact; sensation grossly intact; muscle strength 5 outof 5 in all four extremities LABS/IMAGING - reviewed, pertinent results as below: CBC BMP PT/INR WBC (10*3/L) Date Value 02/21/2020 12.47 (H) NA (mmol/L) Date Value 02/21/2020 133 (L) No results found for: PT RBC (10*6/L) Date Value 02/21/2020 3.09 (L) K (mmol/L) Date Value 02/21/2020 3.9 INR (no units) Date Value 02/21/2020 1.5 PLT (10*3/L) Date Value 02/21/2020 388 (H) CALCIUM (mg/dL) Date Value 02/21/2020 7.9 (L) HGB (g/dL) Date Value 02/21/2020 8.6 (L) CL (mmol/L) Date Value 02/21/2020 97 (L) aPTT HCT (%) Date Value 02/21/2020 27.6 (L) BUN (mg/dL) Date Value 02/21/2020 15 APTT Patient (Seconds) Date Value 02/06/2020 28 CREATININE (mg/dL) Date Value 02/21/2020 0.91 Radiology No final results containing an impression from the past 2 days were found. ASSESSMENT/PLAN Jorge A Sherman is a 79 year old female with PMH as listed above, admitted to the hospital with: . HEATHER , due to renal hypoperfusion in setting of volume depletion Due to dehydration from Stoma loss recover resolve . Patient had work-up done for HEATHER; Abd CT no hydro There is no evidence of obstructive uropathy We will continue to monitor the patient . Hyponatremia , depletional overall improved : D/c IV fluid NAGMA resolved Due to diarrhea secondary to the colostomy bag Lomotil and psyllium for stool bulking Sacral decubiti wound Continue wound care And antibiotics adjusted to renal function . UTI Continue Abx Sosa changed RDORocio Dorado, LBSW - 02/21/2020 10:34 AM SENIOR OFFICE SUPPORT ASSISTANT SOSA Care Management Discharge Disposition Note (DCDN) 5-2-1 Interventions: Disease specific education;Intensive medication reconciliation/management;Teachback;Home visit/home health referral;Clear discharge plan;Follow-up appointments -2-1 Providers: Physician;Cost Estimator/Behavioral Health Specialist;Nurse 5-2-1 Patient Capacity Improvements: Avoidance of adverse events/readmission Discharge Plan for ongoing care and services: [facility] () Patient Choice completed for referred services: Yes Discussed with patient/patients family involved in decision making: Patient or family caregiver understands, and agrees with discharge plan Patient's family or support contact: Discharge Plan: [facility] () Receiving facility was provided the following clinical documentation at discharge- CM Facesheet, Consult notes, Labs, Progress Notes, MAR: DME location: Other DME location: Durable Medical Equipment: Home Health location: [facility], [address] [place] [address]. [place] [address] () [phone] ([phone] Discharge location(s): Home Health location: [facility], [address] [place] [address]. [place], [place] () [phone] () [phone] Community resources/referrals made or provided to patient: No Resources/Referrals: Mental Status: Alert & Oriented to Person,Place & Time Psychosocial issues and/or concerns resulting in patient being a high risk for re-admission: Manage ADL indepentdly: Yes Living Arrangement: Home Other living arrangement: Address of living arrangement: [address] [place] [address] Funding Resources: Medicare A & B Has patient been referred to [facility]/MedData? Nursing informed of discharge plan: No CHP referral sent? No CM medication request completed (if appropriate): No PCP: Yes Transportation: Private Vehicle Prior authorization obtained for ambulance: Authorization number: CPT code: Discharge Medications Will the patient be able to obtain his medications? Yes Does the patient have transportation to to obtain the prescription medications? Yes CM Medication Request completed (if appropriate): Yes Expected discharge date: 02/21/20 Time: 1200 Name of RN informed: Jjoo, RN Additional Information: CM/SW Name & Contact number: Rocio LISA Rivas Ph. [phone] The following information has been provided to the facility noted above: reason for the patient discharge or transfer; patients physical and psychosocial status; summary of care, treatment, servicesprovided to patient; and the patient progress toward goals. OR OFFICE SUPPORT ASSISTANT SOSA Apryl Nunez MD - 02/21/2020 10:29 AM CST GENERAL SURGERY DAILY PROGRESS NOTE Patient Name: Jorge A Sherman Date of : 1940 Date: 02/21/2020 24 Hour Events: No issues over night Ileostomy remains intact this morning without leaking but was changed 3 times overnight Sosa was replaced overnight for urinary retention Patient's family has declined SNF placement after multiple discussions with physicians recommending SNF Physical Exam: Vital Signs Temp: [36.4 C (97.6 F)-37.1 C (98.7 F)] Pulse: [73-97] Resp: [16-20] BP: (96-115)/(34-60) MAP (mmHg): [54-75] Intake/Output Intake/Output Summary (Last 24 hours) at 02/21/2020 1030 Last data filed at 02/21/2020 0900 Gross per 24 hour Intake Output 1100 ml Net -1100 ml Constitutional: Awake, alert, oriented, in no acute distress Head: Normocephalic, atraumatic Eyes: Extraocular movements grossly intact, pupils equal and reactive to light and accomodation, anicteric sclerae Ears: Normal external exam Nose: Normal external exam Mouth: Moist mucous membranes Neck: Supple, no jugular venous distention Cardiovascular: Regular rate and rhythm without murmurs, gallops, or rubs Respiratory: Symmetry of chest wall motion, clear to ausculation bilaterally, no respiratory distress GI: Normoactive bowel sounds, soft, nontender, non-distended, wound vac changed, wound with good granulation tissue around edges, wound measured approximately 5 cm long by 3.5 cm wide by 3 cm deep, ileostomy bag in place with good seal and no leak, ileostomy output thicker today, julia-stomal skin withresolved erythema Extremities: No clubbing, cyanosis, or edema Musculoskeletal: Normal tone and strength, normal range of motion Vascular: Radial and dorsalis pedis pulses palpable bilaterally Neurologic: CN II through XII grossly intact, no focal deficits Skin: Warm and dry, capillary refill <2 seconds, no jaundice, rashes, lesions, or erythema Psychiatric: Appropriate mood and affect, no obvious deficits of insight or judgment Labs: I independently reviewed the patient's labs. Results for JORGE A SHERMAN ( ) as of 02/21/2020 10:34 Ref. Range 02/21/2020 07:38 PROTIME Latest Ref Range: 12.0 - 14.7 Seconds 17.2 (H) PT INR Latest Ref Range: 1.5 NA Latest Ref Range: 135 - 145 mmol/L 133 (L) K Latest Ref Range: 3.5 - 5.0 mmol/L 3.9 CL Latest Ref Range: 98 - 108 mmol/L 97 (L) CO2 TOTAL Latest Ref Range: 23 - 31 mmol/L 32 (H) AGAP Latest Ref Range: 2 - 16 4 BUN Latest Ref Range: 7 - 23 mg/dL 15 GLUCOSE Latest Ref Range: 70 - 110 mg/dL 84 CREATININE Latest Ref Range: 0.50 - 1.04 mg/dL 0.91 eGFR CALCULATION (non ) Latest Units: mL/min/1.73m2 59.5 eGFR CALCULATION () Latest Units: mL/min/1.73m2 72.1 CALCIUM Latest Ref Range: 8.6 - 10.6 mg/dL 7.9 (L) Medications: Scheduled Medicationswarfarin, 3 mg, DAILY AT 1700 sodium bicarbonate, 1,300 mg, TID diphenoxylate-atropine, 1 tablet, Q6H fluconazole, 200 mg, Q24H ABX metoprolol tartrate, 25 mg, BID psyllium, 1 Packet, QID aspirin, 81 mg, DAILY atorvastatin, 40 mg, QHS collagenase, , DAILY ferrous sulfate, 325 mg, QPM levothyroxine, 125 mcg, QAM-0600 mirtazapine, 15 mg, QHS omeprazole, 20 mg, DAILY insulin regular human, , AC IV Medications/Drips PRN Medicationsacetaminophen, 650 mg, Q6HPRN dextrose 50 % in water (D50W), 25 mL, PRN glucagon, 1 mg, PRN ondansetron, 4 mg, Q6HPRN Patient Active Problem List Diagnosis High cholesterol Diet-controlled diabetes mellitus HTN (hypertension), benign Bashir's palsy Other specified hypothyroidism Acquired hypothyroidism Urinary tract infection, site not specified HEATHER (acute kidney injury) Wound infection E46 Unspecified severe protein-calorie malnutrition Assessment: Jorge A Sherman is a 79 year old female with PSH significant for recent CABG and AVR in 11/2019 complicated postoperatively by 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 She had a postoperative wound dehiscence which is currently being managed with a negative pressure dressing and was also found to have intraabdominal fluid collection on CT that is small and unchanged from prior scan done in [place]. The patient'shospital course has been complicated by poor fitting ileostomy bag and yeast UTI. Plan: 1. Continue wound care with wound vac and ileotomy care, [facility] arranged 2. Continue Diflucan for yeast UTI 3. Continue fiber, Lomotil, and Protonix at home for ileostomy output 4. Supplement diet with protein, continue at home 5. Recommend outpatient follow up with surgeon of record, Dr. Joe Nunez M.D. 02/21/2020 10:30 homas, Quetanaomi Staton, HEAVY EQUIPMENT PLUMBING SUPERVISOR - 02/20/2020 7:04 PM CST [facility] Hospitalist Progress Note SUBJECTIVE: Patient feeling better today Sosa catheter was removed at 4 AM this morning patient states she has no urgency or feeling to urinate at this time CURRENT MEDICATIONS - reviewed. Current Facility-Administered Medications Medication Dose Route Frequency Last Rate Last Admin sodium bicarbonate (ANTACID (SODIUM BICARBONATE)) tablet 1,300 mg 1,300 mg Oral TID 1,300 mg at 02/20/20 1521 diphenoxylate-atropine (LOMOTIL) 2.5-0.025 mg tablet 1 tablet 1 tablet Oral Q6H 1 tablet at 02/20/20 1811 fluconazole (DIFLUCAN) Piggyback 200 mg 200 mg IV Piggyback Q24H ABX 200 mg at 02/20/20 181 metoprolol tartrate (LOPRESSOR) tablet 25 mg 25 mg Oral BID 25 mg at 02/20/20 0853 psyllium (METAMUCIL FIBER SINGLES) 3.4 gram packet 1 Packet 1 Packet Oral QID 1 Packet at 02/20/20 181 acetaminophen (TYLENOL) tablet 650 mg 650 mg Oral Q6HPRN 650 mg at 02/17/20 1316 aspirin chewable tablet 81 mg 81 mg Oral DAILY 81 mg at 02/20/20 0853 atorvastatin (LIPITOR) tablet 40 mg 40 mg Oral QHS 40 mg at 02/19/20 210 collagenase (SANTYL) ointment Topical (Apply To Affected Areas) DAILY Given at 02/20/20 0854 dextrose 50 % in water (D50W) injection 25 mL 25 mL Slow IV Push PRN ferrous sulfate tablet 325 mg 325 mg Oral QPM 325 mg at 02/20/201810 glucagon (GLUCAGEN DIAGNOSTIC KIT) injection 1 mg 1 mg Intramuscular PRN levothyroxine (SYNTHROID) tablet 125 mcg 125 mcg Oral QAM-0600 125 mcg at 02/19/20 0508 mirtazapine (REMERON) tablet 15 mg 15 mg Oral QHS 15 mg at 02/19/20 210 omeprazole (PRILOSEC) capsule 20 mg 20 mg Oral DAILY 20 mg at 02/20/20 0853 ondansetron (ZOFRAN (PF)) injection 4 mg 4 mg Slow IV Push Q6HPRN 4 mg at 02/14/20 1018 Sliding Scale Insulin-Regular + Fsbg Testing Subcutaneous AC Stopped at 02/13/20 1630 PHYSICAL EXAM: BP 100/60 | Pulse 73 | Temp 36.5 C (97.7 F) (Temporal Artery) | Resp 18 | Ht 1.473 m (4' 10") | Wt 51.7 kg (114 lb) | SpO2 95% | BMI 23.83 kg/m General: NAD HEENT: Anicteric sclerae, NCAT Lungs: CTAB Cardio: RRR, strong symmetric pulses Abdomen: Soft, ileostomy bag in place, wound VAC with drainage noted Genitourinary: No lesions Musculoskeletal: Normal muscle mass, no synovitis Skin: No rash or lesions, sacral ulcer Neuro: AAOx3, no focal deficits Psych: Normal affect LABS/IMAGING - reviewed, pertinent results as below: CBC BMP PT/INR WBC (10*3/L) Date Value 02/20/2020 11.33 (H) NA (mmol/L) Date Value 02/20/2020 133 (L) No results found for: PT RBC (10*6/L) Date Value 02/20/2020 2.54 (L) K (mmol/L) Date Value 02/20/2020 4.0 INR (no units) Date Value 02/20/2020 2.2 PLT (10*3/L) Date Value 02/20/2020 368 (H) CALCIUM (mg/dL) Date Value 02/20/2020 7.8 (L) HGB (g/dL) Date Value 02/20/2020 7.2 (L) CL (mmol/L) Date Value 02/20/2020 95 (L) aPTT HCT (%) Date Value 02/20/2020 21.9 (L) BUN (mg/dL) Date Value 02/20/2020 16 APTT Patient (Seconds) Date Value 02/06/2020 28 CREATININE (mg/dL) Date Value 02/20/2020 0.98 IMAGING- Hospital Encounter on 02/11/20 CT ABDOMEN PELVIS WO CONTRAST Narrative Ordering physician: NIVIA TERAN Indication: Elevated liver enzymes and lipase, decreased urine output COMPARISON: CT the abdomen and pelvis dated 02/05/2020 TECHNIQUE: Axial images of the abdomen and pelvis were performed without the administration of intravenous contrast material. Images were reformatted in the coronal and sagittal plane. CT scan was performed according to ALARA (as low as reasonably achievable) policy. FINDINGS: The lung bases are clear. The patient is status post median sternotomy. There is prominent mitral valve calcification. The patient is status post cholecystectomy. The noncontrast appearance of the liver, spleen, adrenal glands and pancreas is within normal limits. The kidneys are normal in appearance bilaterally without hydronephrosis or urinary system calculus. There is atherosclerotic calcification of the aorta without significant aneurysmal dilatation. There are small foci of air in the urinary bladder, consistent with recent instrumentation. 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 There is redemonstration of an extraluminal collection of air and fluid subjacent to the right rectus sheath, measuring 4.1 x 2.7 cm (series 2, image 74). The patient is status post subtotal colectomy, with the descending and sigmoid colon remaining in situ.. Bone windows through the abdomen and pelvis demonstrate no osseous destructive lesion. Impression Ileostomy exiting the right pelvic wall. There is redemonstration of an air and fluid collection subjacent to the right rectus sheath, measuring approximately 4.1 x 2.7 cm, similar to prior study of 02/05/2020. No evidence for bowel obstruction. 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 RL: [id number] AFC: [id number] Chest 1 View Narrative EXAM: XR CHEST 1 VW HISTORY: chest pain COMPARISON: 02/03/2020 FINDINGS: Lines/Tubes: None. Lungs: The lungs are clear. No pleural effusion or pneumothorax is identified. Heart/Mediastinum: The cardiomediastinal silhouette is mild enlarged. Status post CABG and aortic valve prosthesis. Bones: No acute osseous abnormality is seen. Medial sternotomy. Mild spondylosis. Surgical clips project over the epigastrium and gallbladder region. Impression 1. Cardiomegaly appears stable. ASSESSMENT/PLAN Jorge A Sherman is a 79 year old female with PMH as listed above, admitted to the hospital with: #Urinary retention Sosa catheter removed at 4 AM this morning at 4 PM patient had not voided reinserted Sosa [id number] mL of clear yellow drainage out Patient will need to discharge home with Sosa catheter follow-up with urology within 2 weeks to a month for urinary retention #HEATHER 2/2 dehydration and ostomy leakage resolved #Hyponatremia-improving -Sodium bicarb increased to 1300 mg oral 3 times daily -Renal dose all meds -Renal Diet -Strict I/O -Nephro Dr Villatoro #Ostomy leakage -Resolved, ileostomy bag in place with good seal and no leak -Ostomy output is less watery today -ContinueMetamucil Fiber QID, Lomotil, protonix -Appointment made with Eleanor Renteria in [facility] February 19, 2019 at 10 AM for ostomy carewill need to reschedule appointment once patient is discharge for supportive wound ostomy care -Wound Care Consult for daily wound care at ostomy site.Instructions for wound care provided in nursing orders. Only soap and water to be used on skin. If ostomy bag leaks, entire device needs to be changed. Reinforcement of bag or placement of towels to catch leakage does not work -Recommending Mepilex around ostomy site for skin irritation -CT: Intraabdominal fluid collection on CT that is small and unchanged from prior scan. After reviewwith radiologist, unlikely to benefit from drainage procedure. Wound vac continues to hold suctionand was changed out on 02/16/2020 -Wound cultureMDR-A acinetobacter baumannii and gram negative bacilli susceptibily colistin, Imipenem, Tigecycline #UTI/Cystitis -WBC 14.1 >7.99improved -Urine culture no anaerobic growth -Repeat urine culture showing yeast Don glabrata waiting for sensitivity -Continue fluconazole #HTN -Currently hypotensive and bp meds are being held at this time #Hypothyroidism -TSH 56.10. Free T4 0.88 -Continue Levothyroxin 125 mcg QD #Mechanical AO Valvestable -HoldWarfarin, wasincreased to 3mg 0n 02/14/2020 -INR is up-trending -Daily INR -Goal INR 2-3, today 2.2 will resume Coumadin 3 mg and daily #Intra-abdominal fluid collection -Surgical Consult -Start Lomotil to slow ostomy output,continue psyllium -Wound VAC last changed bedside 02/16/2020 -Awaiting OSH records -Monitor CBC in particular leukocytosis. Surgery to consider CT tap with p.o. and IV contrast to evaluate for intra-abdominal source or progression of known fluid collection. #Stage 2 Ulcer to Coccyx POA -Daily dressing change -Frequent repositioning Air mattress recommended Prophylaxis: DVT-coumadin with daily INR Stress Ulcer: no indication for prophylaxis Code Status: addressed: FC Disposition: encourage patient to discharge to SNF for wound care and ostomy care family [facility] ACCOUNTS PAYABLE SUPERVISOR was viewed during this stay GABRIEL Bryant OR OFFICE SUPPORT ASSISTANT SOSA Associated attestation - Tom Pugh MD - 02/20/2020 9:23 PM CSTPatient seen and examined with SECTION LEADER SCREEN PRINTING. See SECTION LEADER SCREEN PRINTING note for HPI, PMHx, home medications, social history, physical exam, labs/testing. See below for details Extensive family discussion, multiple times, over 90 minutes Will decide tomorrow about home vs snf discharge Schuyler Frazier MD - 02/20/2020 4:39 PM CST Medicine Progress Note Date of Service: 02/20/2020 Chief Complaint: Feeling better 24-HOUR EVENTS: 79 year-old female with pmh of hypothyroidism, DM, HLD, HTN, history of bedsore in her tailbone who presents to the ED secondary to back pain that started earlier today. Patient had a recent CABG surgery in November 2019 and intestinal blockage s/p resection with subsequent ostomy and wound vac. Recently discharged from [facility] on 02/03/2020 due to urinary tract infection and sepsis. Upon discharge, patient continue to have decreased oral intake, weakness, dysuria. Family was concerned when patient was noted to have decreased urine output for hours yesterday. Family got concerned that she is retaining urine. +abdominal pain (around ostomy bag) Patient was admitted with acute kidney injury secondary to prerenal hydration kidney function normalized SUBJECTIVE: Feeling better has posit-void for 200 CURRENT MEDICATIONS - reviewed. PHYSICAL EXAM: Patient Vitals for the past 24 hrs: BP Temp Temp src Pulse Resp SpO2 Weight 02/20/20 1154 100/42 36.7 C (98 F) TEMPORAL ART 80 17 96 % 02/20/20 0851 110/60 83 19 02/20/20 0800 (!) 88/44 36.8 C (98.2 F) TEMPORAL ART 85 20 97 % 02/20/20 0442 95/41 36.9 C (98.4 F) TEMPORAL ART 77 18 96 % 114 lb (51.7 kg) 02/19/20 2346 92/53 36.9 C (98.4 F) TEMPORAL ART 79 20 97 % 02/19/202022 100/44 36.7 C (98 F) TEMPORAL ART 85 18 97 % 02/19/20 1857 111/45 Intake/Output Summary (Last 24 hours) at 02/20/2020 1639 Last data filed at 02/20/2020 0400 Gross per 24 hour Intake 340 ml Output 760 ml Net -420 ml General: alert and oriented x 3; no apparent distress HEENT: pupils equal, round, reactive to light; extraocular movements intact; oropharynx clear; moistmucous membranes, normocephalic atraumatic Neck: supple, no lymphadenopathy, no bruits, no JVD, full range of motion Lungs: clear to auscultation bilaterally Cardio: S1, S2 normal; no murmurs, rubs or gallops, regular rate and rhythm Abdomen: soft; non-tender; non-distended; normoactive bowel sounds, colostomy bag, dullness over thesuprapubic area Extremities: no clubbing, cyanosis, or edema Skin: no rashes Neuro: cranial nerves II through XII grossly intact; sensation grossly intact; muscle strength 5 outof 5 in all four extremities LABS/IMAGING - reviewed, pertinent results as below: CBC BMP PT/INR WBC (10*3/L) Date Value 02/20/2020 11.33 (H) NA (mmol/L) Date Value 02/20/2020 133 (L) No results found for: PT RBC (10*6/L) Date Value 02/20/2020 2.54 (L) K (mmol/L) Date Value 02/20/2020 4.0 INR (no units) Date Value 02/20/2020 2.2 PLT (10*3/L) Date Value 02/20/2020 368 (H) CALCIUM (mg/dL) Date Value 02/20/2020 7.8 (L) HGB (g/dL) Date Value 02/20/2020 7.2 (L) CL (mmol/L) Date Value 02/20/2020 95 (L) aPTT HCT (%) Date Value 02/20/2020 21.9 (L) BUN (mg/dL) Date Value 02/20/2020 16 APTT Patient (Seconds) Date Value 02/06/2020 28 CREATININE (mg/dL) Date Value 02/20/2020 0.98 Radiology No final results containing an impression from the past 2 days were found. ASSESSMENT/PLAN Jorge A Sherman is a 79 year old female with PMH as listed above, admitted to the hospital with: . HEATHER , due to renal hypoperfusion in setting of volume depletion Due to dehydration from Stoma loss recover resolve . Patient had work-up done for HEATHER; Abd CT no hydro There is no evidence of obstructive uropathy We will continue to monitor the patient . Hyponatremia , depletional overall improved , patient may need IV NS according to lab results. encourage food intake NAGMA Due to diarrhea secondary to the colostomy bag Lomotil and psyllium for stool bulking Sacral decubiti wound Continue wound care And antibiotics adjusted to renal function . UTI Continue Abx Sosa changed Rocio Waters LBSW - 02/20/2020 1:40 PM CSTSubjective Patient ID: Jorge A Sherman is a 79 year old female. SW and TAMIM spoke extensively with patient's family regarding recommendations per MD for SNF placement for continued wound care and explained potential risk for readmission if patient returns home with home health. Family is aware and would like to proceed with patient returning home with [facility]. Arrangements have been made accordingly. [facility]: [phone] LISA Kern Behavioral Health Specialist - Care Management [facility] [phone] [email or web address] Review of Systems Objective Physical Exam Assessment/Plan Home with family. Arrangements have been made with [facility]. Jan Gomez PTA - 02/20/2020 11:43 AM SENIOR OFFICE SUPPORT ASSISTANT SOSA Physical Therapy Progress Note: Discharge Recommendations: PAIN: Denies pain at present PRECAUTIONS: Weight Bearing Precaution: NA General Precautions: PPE used:Gloves and Surgical mask, Fall, . Bracing/Cast present or required:N/A S: Patient agreeable to working with PT. Patient in chair with staff assist earlier. Patient reports no pain except to sacrum and does not rate. O: Patient met up in chair. Patient seen for the following: Transfers: Sit to stand: SBA, Stand to Sit : SBA Gait: Ambulated 70ft with RW SBA Therapeutic exercise: Performed B UE/LE AROM/AAROM in sitting x 10-15 reps in all avialable planes After session, patient up in chair and call bashir provided. RN Aware A: Patient tolerated session well. Gait is steady with slowed kei and short stride length. Patient fatigued a 70ft and requested to rest. Good mobility today. Required SBA to carry wound vac. P: PT will continue POC with emphasis on functional mobility. Total Timed Tx Codes in Minutes: 26 Min Total Treatment Time in Minutes: 26 Min Jan Olivares PTA [facility] [id number] [facility] Rehab Services [facility] [phone] Shannan Dinero PT supv Rocio Waters LB - 02/20/2020 11:04 AM SENIOR OFFICE SUPPORT ASSISTANT SOSA Care Management Discharge Disposition Note (DCDN) 5-2-1 Interventions: Disease specific education;Intensive medication reconciliation/management;Teachback;Home visit/home health referral;Clear discharge plan;Follow-up appointments -2-1 Providers: Physician;Cost Estimator/Behavioral Health Specialist;Nurse 5-2-1 Patient Capacity Improvements: Avoidance of adverse events/readmission Discharge Plan for ongoing care and services: Home Health () Patient Choice completed for referred services: Yes Discussed with patient/patients family involved in decision making: Patient or family caregiver understands, and agrees with discharge plan Patient's family or support contact: Discharge Plan: [facility] () Receiving facility was provided the following clinical documentation at discharge- CM Facesheet, Consult notes, Labs, Progress Notes, MAR: DME location: Other DME location: Durable Medical Equipment: Home Health location: [facility], [address] [place] [address]. [place] [address] () [phone] (F) [phone] Discharge location(s): Home Health location: [facility], [address] [place], [place] [id number] () [phone] (F) [phone] Community resources/referrals made or provided to patient: No Resources/Referrals: Mental Status: Alert & Oriented to Person,Place & Time Psychosocial issues and/or concerns resulting in patient being a high risk for re-admission: Manage ADL indepentdly: Yes Living Arrangement: Home Other living arrangement: Address of living arrangement: [address] [place] [address] Funding Resources: Medicare A & B Has patient been referred to [facility]? Nursing informed of discharge plan: No CHP referral sent? No CM medication request completed (if appropriate): No PCP: Yes Transportation: Private Vehicle Prior authorization obtained for ambulance: Authorization number: CPT code: Discharge Medications Will the patient be able to obtain his medications? Yes Does the patient have transportation to to obtain the prescription medications? Yes CM Medication Request completed (if appropriate): Yes Expected discharge date: 02/20/20 Time: 0600 Name of RN informed: KOLTON Henderson Additional Information: CM/SW Name & Contact number: LISA Cartwright Ph. [phone] The following information has been provided to the facility noted above: reason for the patient discharge or transfer; patients physical and psychosocial status; summary of care, treatment, servicesprovided to patient; and the patient progress toward goals. James Spann MD - 02/20/2020 10:43 AM CST GENERAL SURGERY DAILY PROGRESS NOTE Patient Name: Jorge A Sherman Date of : 1940 Date: 02/20/2020 24 Hour Events: - No acute events overnight - Afebrile, VS WNL - Ostomy bag not leaking this AM - Sosa removed yesterday - Reports pain with decubitus ulcer Physical Exam: Vital Signs Temp: [36.7 C (98 F)-37.2 C (99 F)] Pulse: [77-85] Resp: [17-20] BP: (88-111)/(41-60) MAP (mmHg): [57-65] Intake/Output Intake/Output Summary (Last 24 hours) at 02/20/2020 1043 Last data filed at 02/20/2020 0400 Gross per 24 hour Intake 340 ml Output 760 ml Net -420 ml General: alert and oriented in no apparent distress Head: normocephalic, atraumatic Eyes: extraocular movements intact; no scleral icterus CV: hemodynamically stable Resp: unlabored, no increased work of breathing, equal bilateral chest rise Gi: abdomen soft, nondistended, RLQ ileostomy with pink mucosa and thick green output, improved skinirritation, no evidence of leak. Midline abdominal wound with vac in place holding suction and no surrounding cellulitis. LLQ ecchymosis noted Extremities/Musculoskeletal: moves extremities well, no edema or cyanosis Labs: I independently reviewed the patient's labs. CBC WBC (10*3/L) Date Value 02/20/2020 11.33 (H) RBC (10*6/L) Date Value 02/20/2020 2.54 (L) PLT (10*3/L) Date Value 02/20/2020 368 (H) HGB (g/dL) Date Value 02/20/2020 7.2 (L) HCT (%) Date Value 02/20/2020 21.9 (L) BMP NA (mmol/L) Date Value 02/20/2020 133 (L) K (mmol/L) Date Value 02/20/2020 4.0 CALCIUM (mg/dL) Date Value 02/20/2020 7.8 (L) CL (mmol/L) Date Value 02/20/2020 95 (L) BUN (mg/dL) Date Value 02/20/2020 16 CREATININE (mg/dL) Date Value 02/20/2020 0.98 GLUCOSE (mg/dL) Date Value 02/20/2020 101 CO2 TOTAL (mmol/L) Date Value 02/20/2020 34 (H) Hepatic Function Panel ALBUMIN (g/dL) Date Value 02/20/2020 2.5 (L) T PROTEIN (g/dL) Date Value 02/20/2020 5.7 (L) TOTAL BILI (mg/dL) Date Value 02/20/2020 0.8 BILI UNCON (mg/dL) Date Value 02/11/2020 0.7 BILI CONJ (mg/dL) Date Value 02/11/2020 0.0 ALT(SGPT) (U/L) Date Value 07/12/2018 25 ALTv (U/L) Date Value 02/20/2020 38 (H) AST(SGOT) (U/L) Date Value 02/20/2020 56 (H) ALK PHOS (U/L) Date Value 02/20/2020 163 (H) Radiology: No new images Assessment: Jorge A Sherman is a 79 year old female with PSH significant for recent CABG and AVR in 11/2019 complicated postoperatively by bowel ischemia requiring extended right hemicolectomy and end ileostomy creation (confirmed by op report from [facility], done by Dr. Higgins) admitted for malaise and HEATHER. Found to have intraabdominal fluid collection on CT that is small and unchanged from priorscan. After review with radiologist, unlikely to benefit from drainage procedure. Ostomy leakage significantly improved with new devices and stool thickening agents. Decubitus ulcer stage 2, recommend weight offloading. Plan: 1. Air mattress for stage 2 decubitus ulcer 2. Lomotil to slow ostomy output and psyllium for stool bulking 3. Last wound vac change 02/19/20 4. Recommend discharge to LTAC or SNF given deconditioned status and high risk of readmission Patient seen with faculty Dr. Enrique Avery MD General Surgery PGY-2 OR OFFICE SUPPORT ASSISTANT SOSA Associated attestation - Apryl Nunez MD - 02/20/2020 11:48 AM CSTAttending Attestation: I personally evaluated and examined the patient on 02/20/[address] Avery's progress note as written. I actively participated in the decision-making process. Please see the resident's note for additional details.No issues overnight. Ileostomy bag with good seal and no leak, output thicker. Wound vac with good seal, no leak, draining s/s fluid. Sosa removed, patient unsure if she can ambulate to the bathroom. Discussed wound care needs, nutrition needs, and overall debility with patient's family. Patient is at high risk for readmission, recommend SNF, however family prefers patient to be discharged home. Patient will need air mattress; daily HHC for wound vac, ostomy management, and wound care for sacral decubitus; in home PT/OT; and routine follow up with PCP and her surgeon. Apryl Nunez M.D. 02/20/2020 11:39SriniwJan patricio PTA - 02/19/2020 5:47 PM SENIOR OFFICE SUPPORT ASSISTANT SOSA Physical Therapy Progress Note: Discharge Recommendations: PAIN: Denies pain at present PRECAUTIONS: Weight Bearing Precaution: NA General Precautions: PPE used:Gloves and Surgical mask, Fall, . Bracing/Cast present or required:N/A S: Patient agreeable to working with PT. Patient just into chair with assist of staff. Reports wound to sacrum and is to get new mattress pad. O: Patient met Semi reclined in bed. Patient seen for the following: Therapeutic exercise: Performed B UE/LE AROM/AAROM in sitting x 10-15 reps in all avialable planes After session, patient up in chair and call bashir provided. RN Aware A: Patient tolerated session well. Eager to become more mobile. Able to perform AROM with no issues. P: PT will continue POC with emphasis on functional mobility. Total Timed Tx Codes in Minutes: 18 Min Total Treatment Time in Minutes: 18 Min Jan Olivares PTA [facility] [id number] [facility] Rehab Services [facility] [phone] Shannan Dinero PT supv hraúl, GABRIEL Cyr - 02/19/2020 5:38 PM CST [facility] Hospitalist Progress Note SUBJECTIVE: Patient reports feeling better, ostomy not leaking and looking forward to going home. CURRENT MEDICATIONS - reviewed. Current Facility-Administered Medications Medication Dose Route Frequency Last Rate Last Admin sodium bicarbonate (ANTACID (SODIUM BICARBONATE)) tablet 1,300 mg 1,300 mg Oral TID 1,300 mg at 02/19/20 1347 diphenoxylate-atropine (LOMOTIL) 2.5-0.025 mg tablet 1 tablet 1 tablet Oral Q6H 1 tablet at 02/19/20 1347 fluconazole (DIFLUCAN) Piggyback 200 mg 200 mg IV Piggyback Q24H ABX 200 mg at 02/18/20 1750 metoprolol tartrate (LOPRESSOR) tablet 25 mg 25 mg Oral BID 25 mg at 02/19/20 0956 psyllium (METAMUCIL FIBER SINGLES) 3.4 gram packet 1 Packet 1 Packet Oral QID 1 Packet at 02/19/20 1347 acetaminophen (TYLENOL) tablet 650 mg 650 mg Oral Q6HPRN 650 mg at 02/17/20 1316 aspirin chewable tablet 81 mg 81 mg Oral DAILY 81 mg at 02/19/20 0956 atorvastatin (LIPITOR) tablet 40 mg 40 mg Oral QHS 40 mg at 02/18/202010 collagenase (SANTYL) ointment Topical (Apply To Affected Areas) DAILY Given at 02/18/20 1001 dextrose 50 % in water (D50W) injection 25 mL 25 mL Slow IV Push PRN ferrous sulfate tablet 325 mg 325 mg Oral QPM 325 mg at 02/18/20 1749 glucagon (GLUCAGEN DIAGNOSTIC KIT) injection 1 mg 1 mg Intramuscular PRN levothyroxine (SYNTHROID) tablet 125 mcg 125 mcg Oral QAM-0600 125 mcg at 02/19/20 0508 mirtazapine (REMERON) tablet 15 mg 15 mg Oral QHS 15 mg at 02/18/202010 omeprazole (PRILOSEC) capsule 20 mg 20 mg Oral DAILY 20 mg at 02/19/20 0956 ondansetron (ZOFRAN (PF)) injection 4 mg 4 mg Slow IV Push Q6HPRN 4 mg at 02/14/20 1018 Sliding Scale Insulin-Regular + Fsbg Testing Subcutaneous AC Stopped at 02/13/20 1630 PHYSICAL EXAM: BP 94/49 (BP Location: Right arm, Patient Position: Supine) | Pulse 81 | Temp 37.1 C (98.8 F) (Temporal Artery) | Resp 18 | Ht 1.473 m (4' 10") | Wt 52 kg (114 lb 9.6 oz) | SpO2 98% | BMI 23.95 kg/m General: NAD HEENT: Anicteric sclerae, NCAT Lungs: CTAB Cardio: RRR, strong symmetric pulses Abdomen: Soft, ostomy area improving Genitourinary: No lesions Musculoskeletal: Normal muscle mass, no synovitis Skin: No rash or lesions, stage 2 coccyx ulcer with mepilex in place Neuro: AAOx3, no focal deficits Psych: Normal affect LABS/IMAGING - reviewed, pertinent results as below: CBC BMP PT/INR WBC (10*3/L) Date Value 02/19/2020 9.16 NA (mmol/L) Date Value 02/19/2020 133 (L) No results found for: PT RBC (10*6/L) Date Value 02/19/2020 2.81 (L) K (mmol/L) Date Value 02/19/2020 3.7 INR (no units) Date Value 02/19/2020 4.7 (HH) PLT (10*3/L) Date Value 02/19/2020 353 CALCIUM (mg/dL) Date Value 02/19/2020 7.7 (L) HGB (g/dL) Date Value 02/19/2020 8.0 (L) CL (mmol/L) Date Value 02/19/2020 98 aPTT HCT (%) Date Value 02/19/2020 24.0 (L) BUN (mg/dL) Date Value 02/19/2020 16 APTT Patient (Seconds) Date Value 02/06/2020 28 CREATININE (mg/dL) Date Value 02/19/2020 0.82 IMAGING- Hospital Encounter on 02/11/20 CT ABDOMEN PELVIS WO CONTRAST Narrative Ordering physician: NIVIA TERAN Indication: Elevated liver enzymes and lipase, decreased urine output COMPARISON: CT the abdomen and pelvis dated 02/05/2020 TECHNIQUE: Axial images of the abdomen and pelvis were performed without the administration of intravenous contrast material. Images were reformatted in the coronal and sagittal plane. CT scan was performed according to ALARA (as low as reasonably achievable) policy. FINDINGS: The lung bases are clear. The patient is status post median sternotomy. There is prominent mitral valve calcification. The patient is status post cholecystectomy. The noncontrast appearance of the liver, spleen, adrenal glands and pancreas is within normal limits. The kidneys are normal in appearance bilaterally without hydronephrosis or urinary system calculus. There is atherosclerotic calcification of the aorta without significant aneurysmal dilatation. There are small foci of air in the urinary bladder, consistent with recent instrumentation. 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 There is redemonstration of an extraluminal collection of air and fluid subjacent to the right rectus sheath, measuring 4.1 x 2.7 cm (series 2, image 74). The patient is status post subtotal colectomy, with the descending and sigmoid colon remaining in situ.. Bone windows through the abdomen and pelvis demonstrate no osseous destructive lesion. Impression Ileostomy exiting the right pelvic wall. There is redemonstration of an air and fluid collection subjacent to the right rectus sheath, measuring approximately 4.1 x 2.7 cm, similar to prior study of 02/05/2020. No evidence for bowel obstruction. 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 RL: [id number] AFC: [id number] Chest 1 View Narrative EXAM: XR CHEST 1 VW HISTORY: chest pain COMPARISON: 02/03/2020 FINDINGS: Lines/Tubes: None. Lungs: The lungs are clear. No pleural effusion or pneumothorax is identified. Heart/Mediastinum: The cardiomediastinal silhouette is mild enlarged. Status post CABG and aortic valve prosthesis. Bones: No acute osseous abnormality is seen. Medial sternotomy. Mild spondylosis. Surgical clips project over the epigastrium and gallbladder region. Impression 1. Cardiomegaly appears stable. ASSESSMENT/PLAN Jorge A Sherman is a 79 year old female with PMH as listed above, admitted to the hospital with: #HEATHER 2/2 dehydration and ostomy leakage #Hyponatremia-improving -Discontinue IV fluids -Sodium bicarb increased to 1300 mg oral 3 times daily -Renal dose all meds -Renal Diet -Strict I/O -Nephro Dr Jara following #Ostomy leakage -Resolved, ileostomy bag in place with good seal and no leak -Ostomy output is less watery today -Continue Metamucil Fiber QID, Lomotil, protonix -Appointment made with Eleanor Renteria in [facility] February 19, 2019 at 10 AM for ostomy care -Wound Care Consult for daily wound care at ostomy site.Instructions for wound care provided in nursing orders. Only soap and water to be used on skin. If ostomy bag leaks, entire device needs to be changed. Reinforcement of bag or placement of towels to catch leakage does not work -Recommending Mepilex around ostomy site for skin irritation -CT: Intraabdominal fluid collection on CT that is small and unchanged from prior scan. After reviewwith radiologist, unlikely to benefit from drainage procedure. Wound vac continues to hold suctionand was changed out on 02/16/2020 -Wound cultureMDR-A acinetobacter baumannii and gram negative bacilli susceptibily colistin, Imipenem, Tigecycline #UTI/Cystitis -WBC 14.1 >7.99 improved -Urine culture no anaerobic growth -Repeat urine culture showing yeast Don glabrata waiting for sensitivity -Continue fluconazole #HTN -Currently hypotensive and bp meds are being held at this time #Hypothyroidism -TSH 56.10. Free T4 0.88 -Continue Levothyroxin 125 mcg QD #Mechanical AO Valvestable -Hold Warfarin, was increased to 3mg 0n 02/14/2020 -INR is up-trending -Daily INR -Goal INR 2-3, today 4.7 holding coumadin likely due to fluconazole #Intra-abdominal fluid collection -Surgical Consult -Start Lomotil to slow ostomy output,continue psyllium -Wound VAC last changed bedside 02/16/2020 -Awaiting OSH records -Monitor CBC in particular leukocytosis. Surgery to consider CT tap with p.o. and IV contrast to evaluate for intra-abdominal source or progression of known fluid collection. #Stage 2 Ulcer to Coccyx POA -Daily dressing change -Frequent repositioning Air mattress recommended Prophylaxis: DVT-coumadin Stress Ulcer: no indication for prophylaxis Code Status: addressed: FC Disposition: home [place] ACCOUNTS PAYABLE SUPERVISOR was viewed during this stay GABRIEL Bryant OR OFFICE SUPPORT ASSISTANT SOSA Associated attestation - Basil Redman MD - 02/19/2020 6:07 PM CSTI have independently seen and evaluated this patient. I agree with the note below including physicalexam and plan. In summary, patient is admitted for HEATHER 2/2 dehydration and ostomy leak. Surgery on board s/p wound-vac exchange at bedside and awaiting ostomy supplies. Increased warfarin to 3 mg for mechanical AV target INR 2-3 but now supratherapeutic, likely due to fluconazole interaction so will hold warfarin, ordered SQ vit K x1. Needs close INR monitoring. Treat Candidate glabrata UTI - notified micro lab on 02/18 to run sensitivities to ensure fluconazole response. Wound cx+ MDR Acinetobacter,likely colonizer per Dr. Nunez. Contact precautions. High-risk for readmission and needs extensive care with ostomy care, woundvac management, PT/OT but patient's family adamantly refuse inpatient rehab and want to arrange for HH. Needs urgent g/u with ostomy nurse Eleanor Renteria in [place]. Rest of plan per below.Kathleen Casanova, FELY - 02/19/2020 12:38 PM CST MEDICAL NUTRITION THERAPY Progress Note Present on Admission: HEATHER (acute kidney injury) Wound infection Medications: Current Facility-Administered Medications: phytonadione (VITAMIN K) injection 2 mg, 2 mg, Subcutaneous, ONCE, Basil Redman MD sodium bicarbonate (ANTACID (SODIUM BICARBONATE)) tablet 1,300 mg, 1,300 mg, Oral, TID, Estefani Iqbal MD, 1,300 mg at 02/19/20 0956 diphenoxylate-atropine (LOMOTIL) 2.5-0.025 mg tablet 1 tablet, 1 tablet, Oral, Q6H, James Avery MD, 1 tablet at 02/19/20 0508 fluconazole (DIFLUCAN) Piggyback 200 mg, 200 mg, IV Piggyback, Q24H ABX, Basil Redman MD, 200 mg at 02/18/20 1750 metoprolol tartrate (LOPRESSOR) tablet 25 mg, 25 mg, Oral, BID, Basil Redman MD, 25 mg at 02/19/20 0956 psyllium (METAMUCIL FIBER SINGLES) 3.4 gram packet 1 Packet, 1 Packet, Oral, QID, Apryl Nunez MD, 1 Packet at 02/19/20 1002 acetaminophen (TYLENOL) tablet 650 mg, 650 mg, Oral, Q6HPRN, Nivia Teran MD, 650 mg at 02/17/20 1316 aspirin chewable tablet 81 mg, 81 mg, Oral, DAILY, Nivia Teran MD, 81 mg at 02/19/20 0956 atorvastatin (LIPITOR) tablet 40 mg, 40 mg, Oral, QHS, Nivia Teran MD, 40 mg at 02/18/202010 collagenase (SANTYL) ointment, , Topical (Apply To Affected Areas), DAILY, Nivia Teran MD, Given at 02/18/20 1001 dextrose 50 % in water (D50W) injection 25 mL, 25 mL, Slow IV Push, PRN, Nivia Teran MD ferrous sulfate tablet 325 mg, 325 mg, Oral, QPM, Nivia Teran MD, 325 mg at 02/18/20 1749 glucagon (GLUCAGEN DIAGNOSTIC KIT) injection 1 mg, 1 mg, Intramuscular, PRN, Nivia Teran MD levothyroxine (SYNTHROID) tablet 125 mcg, 125 mcg, Oral, QAM-0600, Nivia Teran MD, 125 mcg at 02/19/20 0508 mirtazapine (REMERON) tablet 15 mg, 15 mg, Oral, QHS, Nivia Teran MD, 15 mg at 02/18/202010 omeprazole (PRILOSEC) capsule 20 mg, 20 mg, Oral, DAILY, Nivia Teran MD, 20 mg at 02/19/20 0956 ondansetron (ZOFRAN (PF)) injection 4 mg, 4 mg, Slow IV Push, Q6HPRN, Nivia Teran MD, 4 mg at 02/14/20 1018 Sliding Scale Insulin-Regular + Fsbg Testing, , Subcutaneous, AC, Nivia Teran MD, Stopped at 02/13/20 1630 Lab and Medical Test Results: Recent Results (from the past 24 hour(s)) POCT GLUCOSE (AUTOMATED) Collection Time: 02/18/20 4:57 PM Result Value Ref Range POCT GLU 120 (H) 70 - 110 mg/dL PROTHROMBIN TIME / INR Collection Time: 02/19/20 5:15 AM Result Value Ref Range PROTIME PATIENT 42.3 (H) 12.0 - 14.7 Seconds INR 4.7 (HH) CBC WITH DIFF Collection Time: 02/19/20 5:15 AM Result Value Ref Range WBC 9.16 4.30 - 11.10 10*3/L RBC 2.81 (L) 3.93 - 5.25 10*6/L HGB 8.0 (L) 11.6 - 15.0 g/dL HCT 24.0 (L) 35.7 - 45.2 % MCV 85.4 80.6 - 95.5 fL MCH 28.5 25.9 - 32.8 pg MCHC 33.3 31.6 - 35.1 g/dL RDW-SD 49.9 39.0 - 49.9 fL RDW-CV 15.9 (H) 12.0 - 15.5 % PLT 353 166 - 358 10*3/L MPV 9.2 (L) 9.5 - 12.9 fL NRBC/100 WBC 0.0 0.0 - 10.0 /100 WBCs NRBC x10^3 <0.01 10*3/L GRAN MAT (NEUT) % 62.0 % IMM GRAN % 1.00 % LYMPH % 27.7 % MONO % 7.4 % EOS % 1.1 % BASO % 0.8 % GRAN MAT x10^3(ANC) 5.68 1.88 - 7.09 10*3/uL IMM GRAN x10^3 0.09 (H) 0.00 - 0.06 10*3/uL LYMPH x10^3 2.54 1.32 - 3.29 10*3/uL MONO x10^3 0.68 0.33 - 0.92 10*3/uL EOS x10^3 0.10 0.03 - 0.39 10*3/uL BASO x10^3 0.07 0.01 - 0.07 10*3/uL COMP. METABOLIC PANEL (65048) Collection Time: 02/19/20 5:15 AM Result Value Ref Range NA 133 (L) 135 - 145 mmol/L K 3.7 3.5 - 5.0 mmol/L CL 98 98 - 108 mmol/L CO2 TOTAL 32 (H) 23 - 31 mmol/L AGAP 3 2 - 16 BUN 16 7 - 23 mg/dL GLUCOSE 85 70 - 110 mg/dL CREATININE 0.82 0.50 - 1.04 mg/dL TOTAL BILI 0.7 0.1 - 1.1 mg/dL CALCIUM 7.7 (L) 8.6 - 10.6 mg/dL T PROTEIN 5.7 (L) 6.3 - 8.2 g/dL ALBUMIN 2.5 (L) 3.5 - 5.0 g/dL ALK PHOS 169 (H) 34 - 122 U/L ALTv 40 (H) 5 - 35 U/L AST(SGOT) 57 (H) 13 - 40 U/L eGFR Calculation (Non-) 67.1 mL/min/1.73m2 eGFR Calculation () 81.3 mL/min/1.73m2 POCT GLUCOSE (AUTOMATED) Collection Time: 02/19/20 7:39 AM Result Value Ref Range POCT GLU 100 70 - 110 mg/dL Intake/Output Summary (Last 24 hours) at 02/19/2020 1238 Last data filed at 02/18/20202010 Gross per 24 hour Intake 950 ml Output Net 950 ml Weight History: Wt Readings from Last 10 Encounters: 02/19/20 52 kg (114 lb 9.6 oz) 02/05/20 57 kg (125 lb 10.6 oz) 11/26/19 59.9 kg (132 lb) 11/17/19 59.9 kg (132 lb) 07/12/18 59.9 kg (132 lb) 05/10/18 61.6 kg (135 lb 12.9 oz) 11/08/17 61.6 kg (135 lb 14.4 oz) 07/26/17 59.9 kg (132 lb) 04/02/17 60.8 kg (134 lb) 02/12/17 61 kg (134 lb 6.4 oz) Current Dietary Order(s): Cardiac (2 gm Sodium, Low Fat, Low Cholesterol) Diet; Texture: Regular. Ensure Enlive Advanced (1.5 kcal/mL, protein 23% of kcal) Nutrition/Additional History: 02/13- Patient is grenadian-speaking only. Used [facility] in-person transfer driver to speak with patient. Patient complains of nausea and only wanting to drink Ensure. 2 Ensure bottles were at bedside. 1/4 of breakfast reported on flowsheet. Ms. Sherman had no food preferences at visit and reports that her familywas coming to visit today and sometimes they bring food for her. UBW is 125-130 lbs, consistent withEMR. Weight loss of 20 lbs in 3 months (significant 15%). 02/18- Appetite/ intake seems to be improving. Intake is documented as 1/2-all of recent meals + someEnsure. Ms. Sherman ate 1/2 of her breakfast and 3/4 of her lunch today. Patient's family is briningin outside food as well. RD reviewed patient's labs, and will continue to monitor. Calculated Daily Nutritional Needs: Calories: 1430 kcal/day = 28 kcal/kg current wt = 35 kcal/kg IBW Protein: 78 g/day = 1.5 g/kg current wt = 1.9 g/kg IBW Fluid: 2329-8237 mL/day (30-35 mL/kg CBW) or per MD; adjust per acute needs Nutrition Diagnosis: PES #1: Severe protein calorie malnutrition in the context of chronic illness related to decreased intake with increased needsfor wound healing as evidenced by patient consuming <75% of estimated energy requirements for > 1 month and weight loss of >7.5% in 3 months (14%) (resolving; appetite/ intake is improving) Nutrition Intervention(s): Interventions: 1. Recommend continue the current diet order as tolerated - consider regular diet if poor intake continues 2. Recommend Ensure Enlive TID to provide 350 calories and 20 g protein/ bottle to help patient meether needs 3. Recommend daily weights 4. Recommend encouragement at meals & offering snacks PRN 5. Will monitor diet tolerance, intake, GI function, weight trends, and nutrition related labs Goals: 1. The pt's documented intake is no less than 75% of provided meals/ snacks/ supplements (not meeting but intake is improving; ongoing) 2. Weight maintenance while inpatient Nutrition Monitoring and Evaluation: A registered dietitian will f/u as indicated to report nutrition related information and to revise the recommended nutrition intervention(s). Please call with questions or concerns, thank-you. Anticipated d/c needs: Regular diet + vitamin K consistent foods + oral nutrition supplements Kathleen Casanova RD, LD Clinical Dietitian Office: [phone] OR OFFICE SUPPORT ASSISTANT SOSA Ria Moon MD - 02/19/2020 11:41 AM CSTNephrology FOLLOW-UP CC HEATHER on CKD3, DM with renal manifestation, benign nephrosclerosis accelerated by HEATHER in setting ofrenal hypoperfusion. HPI 79 year-old woman with pmh of hypothyroidism, DM, HLD, HTN, CAD S/P CABG hintestinal blockage s/p resection with subsequent ostomy in 11/2019 and wound vac. Patient presented for nausea, abd pain and leaking from colostomy site Today Feels better ROS Constitutional: Positive forappetite change(decreased). Negative forchills,diaphoresis,fatigue,feverand unexpected weight change. Activity change:decreased. Eyes:Negative. Respiratory:Negative. Breasts:Negative. Cardiovascular:Negative. Gastrointestinal: Negative forabdominal distention,anal bleeding,blood in stool,constipation,diarrhea,nausea,rectal painand vomiting. Physical exam General: AAOX3, NAD , NeckL: supple, no elevated JVD Chest: CTAB, no, rales or wheezes Herat: RRR, Normal S1,2 Abd: Soft, NT , Colostomy, wound vac Extremities: No edema Assessment and plan A/P HEATHER due to nonoliguric ATN , prerenal azotemia, no evidence of obstructive uropathy, continue to monitor fluid balance and resume IV fluids if po intake inadequate, continue po hydration , avoid NSAID,avoid HCTZ which may cause worsening of hyponatremia. HEATHER , due to renal hypoperfusion in setting of volume depletion Due to dehydration from Stoma loss . Patient had work-up done for HEATHER; Abd CT no hydro There is no evidence of obstructive uropathy . Hyponatremia , overall improved , patient may need IV NS according to lab results. encourage food intake NAGMA Due to diarrhea Lomotil and psyllium for stool bulking Sacral decubiti wound Continue wound care And antibiotics adjusted to renal function . UTI Continue Abx Ossa changed Hyponatremia Improved PO fluid restriction encourage food intake NAGMA Due to diarrhea Lomotil and psyllium for stool bulking Sacral decubiti wound Continue wound care UTI Continue Abx Sosa changed James Spann MD - 02/19/2020 9:16 AM CST GENERAL SURGERY DAILY PROGRESS NOTE Patient Name: Jorge A Sherman Date of : 1940 Date: 02/19/2020 24 Hour Events: - No acute events overnight - Afebrile, VS WNL - Ostomy bag changed once overnight, no leak visible this AM - Wound vac continues to hold suction - Patient denies abdominal pain Physical Exam: Vital Signs Temp: [36.6 C (97.9 F)-36.9 C (98.4 F)] Pulse: [93-98] Resp: [16-17] BP: (96-112)/(50-52) MAP (mmHg): [65] Intake/Output Intake/Output Summary (Last 24 hours) at 02/19/2020 0917 Last data filed at 02/18/20202010 Gross per 24 hour Intake 950 ml Output Net 950 ml General: alert and oriented in no apparent distress Head: normocephalic, atraumatic Eyes: extraocular movements intact; no scleral icterus CV: hemodynamically stable Resp: unlabored, no increased work of breathing, equal bilateral chest rise Gi: abdomen soft, nondistended, tender to palpation in RLQ around ileostomy due to skin irritation, which is covered in Mepilex. Ileostomy mucosa pink and healthy, productive of green fluid. Midline abdominal wound with vac in place holding suction and no surrounding cellulitis. LLQ ecchymosis noted Extremities/Musculoskeletal: moves extremities well, no edema or cyanosis Labs: I independently reviewed the patient's labs. CBC WBC (10*3/L) Date Value 02/19/2020 9.16 RBC (10*6/L) Date Value 02/19/2020 2.81 (L) PLT (10*3/L) Date Value 02/19/2020 353 HGB (g/dL) Date Value 02/19/2020 8.0 (L) HCT (%) Date Value 02/19/2020 24.0 (L) BMP NA (mmol/L) Date Value 02/19/2020 133 (L) K (mmol/L) Date Value 02/19/2020 3.7 CALCIUM (mg/dL) Date Value 02/19/2020 7.7 (L) CL (mmol/L) Date Value 02/19/2020 98 BUN (mg/dL) Date Value 02/19/2020 16 CREATININE (mg/dL) Date Value 02/19/2020 0.82 GLUCOSE (mg/dL) Date Value 02/19/2020 85 CO2 TOTAL (mmol/L) Date Value 02/19/2020 32 (H) Hepatic Function Panel ALBUMIN (g/dL) Date Value 02/19/2020 2.5 (L) T PROTEIN (g/dL) Date Value 02/19/2020 5.7 (L) TOTAL BILI (mg/dL) Date Value 02/19/2020 0.7 BILI UNCON (mg/dL) Date Value 02/11/2020 0.7 BILI CONJ (mg/dL) Date Value 02/11/2020 0.0 ALT(SGPT) (U/L) Date Value 07/12/2018 25 ALTv (U/L) Date Value 02/19/2020 40 (H) AST(SGOT) (U/L) Date Value 02/19/2020 57 (H) ALK PHOS (U/L) Date Value 02/19/2020 169 (H) Radiology: No new images Assessment: Jorge A Sherman is a 79 year old female with PSH significant for recent CABG and AVR in 11/2019 complicated postoperatively by bowel ischemia requiring extended right hemicolectomy and end ileostomy creation (confirmed by op report from [facility], done by Dr. Higgins) admitted for malaise and HEATHER. Found to have intraabdominal fluid collection on CT that is small and unchanged from priorscan. After review with radiologist, unlikely to benefit from drainage procedure. Frequency of ostomy leakage improved with addition of new supplies and medications to thicken stool. Patient found to have fungal UTI, treating with fluconazole with improvement in leukocytosis. Upon exam today, approx 2cm diameter decubitus ulcer stage 2 or 3, needs weight offloading Plan: 1. Wound vac and ostomy changed at bedside. Midline abdominal wound with granulation tissue and no signs of infection. Ileostomy site improved with less skin irritation and breakdown, areas of epithelialization visible. 2. Recommend air mattress for stage 2-3 decubitus ulcer. Reapplied Mepilex at bedside today 3. Continue Lomotil to slow ostomy output and psyllium for stool bulking Patient seen with faculty Dr. Enrique Avery MD General Surgery PGY-2 OR OFFICE SUPPORT ASSISTANT SOSA Associated attestation - Apryl Nunez MD - 02/19/2020 1:27 PM CSTAttending Attestation: I personally evaluated and examined the patient on 02/19/[address] Avery's progress note as written. I actively participated in the decision-making process. Please see the resident's note for additional details. NO issues overnight. Wound vac changes: Postoperative wound healing well with granulation tissues around edges, serosanguineous output in cannister; ileostomy changed, peristomal skin improved with minimal erythema and skin excoriation, 1.5 cm stage II sacral decubitus ulcer covered with Mepilex. Recommend air mattress and frequent turning for offloading, continuing Ensure to improve nutrition, encourage oral intake, continue Lomotil and Metamucil, continue Diflucan. Patient would likely benefit from SNF placement from a debilitation, wound care, and ID standpoint. Apryl Nunez M.D. 02/19/2020 13:22ShKevin paul PA - 02/18/2020 4:52 PM CST [facility] Hospitalist Progress Note SUBJECTIVE: Sitting in chair eating breakfast. Daughter bedside. Daughter brought patient home cooked breakfast and she has been eaten most of it. In good spirits today. Afebrile. No acute events overnight. Ostomy bag with light green-brown output and gas. No leakage. Beninese-speaking. CURRENT MEDICATIONS - reviewed. Current Facility-Administered Medications Medication Dose Route Frequency Last Rate Last Admin sodium bicarbonate (ANTACID (SODIUM BICARBONATE)) tablet 1,300 mg 1,300 mg Oral TID diphenoxylate-atropine (LOMOTIL) 2.5-0.025 mg tablet 1 tablet 1 tablet Oral Q6H 1 tablet at 02/18/20 1303 fluconazole (DIFLUCAN) Piggyback 200 mg 200 mg IV Piggyback Q24H ABX 200 mg at 02/17/20 1916 metoprolol tartrate (LOPRESSOR) tablet 25 mg 25 mg Oral BID Stopped at 02/17/201999 psyllium (METAMUCIL FIBER SINGLES) 3.4 gram packet 1 Packet 1 Packet Oral QID 1 Packet at 02/18/20 1303 acetaminophen (TYLENOL) tablet 650 mg 650 mg Oral Q6HPRN 650 mg at 02/17/20 1316 aspirin chewable tablet 81 mg 81 mg Oral DAILY 81 mg at 02/18/20 0958 atorvastatin (LIPITOR) tablet 40 mg 40 mg Oral QHS 40 mg at 02/17/20 2204 collagenase (SANTYL) ointment Topical (Apply To Affected Areas) DAILY Given at 02/18/20 1001 dextrose 50 % in water (D50W) injection 25 mL 25 mL Slow IV Push PRN ferrous sulfate tablet 325 mg 325 mg Oral QPM 325 mg at 02/17/20 1719 glucagon (GLUCAGEN DIAGNOSTIC KIT) injection 1 mg 1 mg Intramuscular PRN levothyroxine (SYNTHROID) tablet 125 mcg 125 mcg Oral QAM-0600 125 mcg at 02/18/20 0521 mirtazapine (REMERON) tablet 15 mg 15 mg Oral QHS 15 mg at 02/17/20 2205 omeprazole (PRILOSEC) capsule 20 mg 20 mg Oral DAILY 20 mg at 02/18/20 0959 ondansetron (ZOFRAN (PF)) injection 4 mg 4 mg Slow IV Push Q6HPRN 4 mg at 02/14/20 1018 Sliding Scale Insulin-Regular + Fsbg Testing Subcutaneous AC Stopped at 02/13/20 1630 PHYSICAL EXAM: BP 102/45 (BP Location: Right arm, Patient Position: Supine) | Pulse 88 | Temp 36.7 C (98 F) (Temporal Artery) | Resp (!) 88 | Ht 1.473 m (4' 10") | Wt 55.5 kg (122 lb 4.8 oz) | SpO2 96% | BMI 25.56 kg/m General: No respiratory distress, NAD HEENT: Anicteric sclerae, NCAT Lungs: Symmetric expansion, CTAB Cardio: RRR, strong symmetric pulses Abdomen: Soft, NTND, ostomy pink and healing, ileostomy bag with good seal, no leak and good output,wound VAC in place with no leak and draining serosanguineous fluid Genitourinary: No lesions Musculoskeletal: Normal muscle mass, no synovitis Skin: No rash or skin lesions healing around ostomy Neuro: AAOx3, no focal deficits Psych: Normal affect LABS/IMAGING - reviewed, pertinent results as below: CBC BMP PT/INR WBC (10*3/L) Date Value 02/18/2020 7.99 NA (mmol/L) Date Value 02/18/2020 132 (L) No results found for: PT RBC (10*6/L) Date Value 02/18/2020 2.74 (L) K (mmol/L) Date Value 02/18/2020 3.9 INR (no units) Date Value 02/18/2020 3.7 PLT (10*3/L) Date Value 02/18/2020 371 (H) CALCIUM (mg/dL) Date Value 02/18/2020 8.1 (L) HGB (g/dL) Date Value 02/18/2020 7.6 (L) CL (mmol/L) Date Value 02/18/2020 99 aPTT HCT (%) Date Value 02/18/2020 23.5 (L) BUN (mg/dL) Date Value 02/18/2020 23 APTT Patient (Seconds) Date Value 02/06/2020 28 CREATININE (mg/dL) Date Value 02/18/2020 0.82 IMAGING- Hospital Encounter on 02/11/20 CT ABDOMEN PELVIS WO CONTRAST Narrative Ordering physician: NIVIA TERAN Indication: Elevated liver enzymes and lipase, decreased urine output COMPARISON: CT the abdomen and pelvis dated 02/05/2020 TECHNIQUE: Axial images of the abdomen and pelvis were performed without the administration of intravenous contrast material. Images were reformatted in the coronal and sagittal plane. CT scan was performed according to ALARA (as low as reasonably achievable) policy. FINDINGS: The lung bases are clear. The patient is status post median sternotomy. There is prominent mitral valve calcification. The patient is status post cholecystectomy. The noncontrast appearance of the liver, spleen, adrenal glands and pancreas is within normal limits. The kidneys are normal in appearance bilaterally without hydronephrosis or urinary system calculus. There is atherosclerotic calcification of the aorta without significant aneurysmal dilatation. There are small foci of air in the urinary bladder, consistent with recent instrumentation. 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 There is redemonstration of an extraluminal collection of air and fluid subjacent to the right rectus sheath, measuring 4.1 x 2.7 cm (series 2, image 74). The patient is status post subtotal colectomy, with the descending and sigmoid colon remaining in situ.. Bone windows through the abdomen and pelvis demonstrate no osseous destructive lesion. Impression Ileostomy exiting the right pelvic wall. There is redemonstration of an air and fluid collection subjacent to the right rectus sheath, measuring approximately 4.1 x 2.7 cm, similar to prior study of 02/05/2020. No evidence for bowel obstruction. 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 RL: [id number] AFC: [id number] Chest 1 View Narrative EXAM: XR CHEST 1 VW HISTORY: chest pain COMPARISON: 02/03/2020 FINDINGS: Lines/Tubes: None. Lungs: The lungs are clear. No pleural effusion or pneumothorax is identified. Heart/Mediastinum: The cardiomediastinal silhouette is mild enlarged. Status post CABG and aortic valve prosthesis. Bones: No acute osseous abnormality is seen. Medial sternotomy. Mild spondylosis. Surgical clips project over the epigastrium and gallbladder region. Impression 1. Cardiomegaly appears stable. ASSESSMENT/PLAN Jorge A Sherman is a 79 year old female with PMH as listed above, admitted to the hospital with: #HEATHER 2/2 dehydration and ostomy leakage #Hyponatremia-improving -Discontinue IV fluids -Sodium bicarb increased to 1300 mg oral 3 times daily -Renal dose all meds -Renal Diet -Strict I/O -Nephro Dr Jara following #Ostomy leakage -Resolved, ileostomy bag in place with good seal and no leak -Ostomy output is less watery today -Continue Metamucil Fiber QID, Lomotil, protonix -Appointment made with Eleanor Renteria in [facility] February 19, 2019 at 10 AM for ostomy care -Wound Care Consult for daily wound care at ostomy site.Instructions for wound care provided in nursing orders. Only soap and water to be used on skin. If ostomy bag leaks, entire device needs to be changed. Reinforcement of bag or placement of towels to catch leakage does not work -Recommending Mepilex around ostomy site for skin irritation -CT: Intraabdominal fluid collection on CT that is small and unchanged from prior scan. After reviewwith radiologist, unlikely to benefit from drainage procedure. Wound vac continues to hold suctionand was changed out on 02/16/2020 -Wound cultureMDR-A acinetobacter baumannii and gram negative bacilli susceptibily colistin, Imipenem, Tigecycline #UTI/Cystitis -WBC 14.1 >7.99 improved -Urine culture no anaerobic growth -Repeat urine culture showing yeast -Continue fluconazole #HTN -Currently hypotensive and bp meds are being held at this time #Hypothyroidism -TSH 56.10. Free T4 0.88 -Continue Levothyroxin 125 mcg QD #Mechanical AO Valvestable -Hold Warfarin, was increased to 3mg 0n 02/14/2020 -INR is up-trending -Daily INR -Goal INR 2-3, today 3.7 #Intra-abdominal fluid collection -Surgical Consult -Start Lomotil to slow ostomy output, continue psyllium -Wound VAC last changed bedside 02/16/2020 -Awaiting OSH records -Monitor CBC in particular leukocytosis. Surgery to consider CT tap with p.o. and IV contrast to evaluate for intra-abdominal source or progression of known fluid collection. #Stage 2 Ulcer to Coccyx POA -Daily dressing change -Frequent repositioning Prophylaxis: DVT-Coumadin therapy Stress Ulcer:no indication for prophylaxis Code Status:addressed:full code Disposition:DC to home or consider [facility] facility. ROBERT Armenta OR OFFICE SUPPORT ASSISTANT SOSA Associated attestation - Basil Redman MD - 02/19/2020 12:07 PM CSTI have independently seen and evaluated this patient. I agree with the note below including physicalexam and plan. In summary, patient is admitted for HEATHER 2/2 dehydration and ostomy leak. Surgery on board s/p wound-vac exchange at bedside and awaiting ostomy supplies. Increased warfarin to 3 mg for mechanical AV target INR 2-3 but now supratherapeutic, likely due to fluconazole interaction so will hold warfarin, consider SQ vit K tomorrow if still high. Treat fungal UTI and notify micro lab to run azole sensitivities. Wound cx+ MDR Acinetobacter, likely colonizer per Dr. Nunez. Contact precautions. Rest of plan per below.Apryl Nunez MD - 02/18/2020 4:05 PM CST GENERAL SURGERY DAILY PROGRESS NOTE Patient Name: Jorge A Sherman Date of : 1940 Date: 02/18/2020 24 Hour Events: No issues over night Ileostomy remains intact without leaking U/A demonstrated yeast, patient started on Diflucan Physical Exam: Vital Signs Temp: [36.5 C (97.7 F)-36.9 C (98.5 F)] Pulse: [77-88] Resp: [20-88] BP: (88-102)/(42-48) MAP (mmHg): [59] Intake/Output Intake/Output Summary (Last 24 hours) at 02/18/2020 1605 Last data filed at 02/18/2020 0500 Gross per 24 hour Intake 505 ml Output 750 ml Net -245 ml Constitutional: Awake, alert, oriented, in no acute distress Head: Normocephalic, atraumatic Eyes: Extraocular movements grossly intact, pupils equal and reactive to light and accomodation, anicteric sclerae Ears: Normal external exam Nose: Normal external exam Mouth: Moist mucous membranes Neck: Supple, no jugular venous distention Cardiovascular: Regular rate and rhythm without murmurs, gallops, or rubs Respiratory: Symmetry of chest wall motion, clear to ausculation bilaterally, no respiratory distress GI: Normoactive bowel sounds, soft, nontender, non-distended, wound vac in place without leak with drainage of serosanguineous fluid, ileostomy bag in place with good seal and no leak, ileostomy outputless watery today, julia-stomal skin with resolved erythema Extremities: No clubbing, cyanosis, or edema Musculoskeletal: Normal tone and strength, normal range of motion Vascular: Radial and dorsalis pedis pulses palpable bilaterally Neurologic: CN II through XII grossly intact, no focal deficits Skin: Warm and dry, capillary refill <2 seconds, no jaundice, rashes, lesions, or erythema Psychiatric: Appropriate mood and affect, no obvious deficits of insight or judgment Labs: I independently reviewed the patient's labs. Results for JORGE A SHERMAN ( ) as of 02/18/2020 16:08 Ref. Range 02/18/2020 05:19 PROTIME Latest Ref Range: 12.0 - 14.7 Seconds 35.2 (H) PT INR Latest Ref Range: 3.7 WBC x10^3 Latest Ref Range: 4.30 - 11.10 10*3/L 7.99 RBC x10^6 Latest Ref Range: 3.93 - 5.25 10*6/L 2.74 (L) HGB Latest Ref Range: 11.6 - 15.0 g/dL 7.6 (L) HCT Latest Ref Range: 35.7 - 45.2 % 23.5 (L) MCV Latest Ref Range: 80.6 - 95.5 fL 85.8 MCH Latest Ref Range: 25.9 - 32.8 pg 27.7 MCHC Latest Ref Range: 31.6 - 35.1 g/dL 32.3 RDW-SD Latest Ref Range: 39.0 - 49.9 fL 48.1 RDW-CV Latest Ref Range: 12.0 - 15.5 % 15.5 PLT x10^3 Latest Ref Range: 166 - 358 10*3/L 371 (H) MPV Latest Ref Range: 9.5 - 12.9 fL 9.5 NRBC /100 WBC Latest Ref Range: 0.0 - 10.0 /100 WBCs 0.0 NRBC x10^3 Latest Units: 10*3/L <0.01 GRAN MAT (NEUT) % Latest Units: % 64.6 IMM GRAN % Latest Units: % 1.00 LYMPH% Latest Units: % 22.9 MONO % Latest Units: % 8.3 EOS % Latest Units: % 2.3 BASO % Latest Units: % 0.9 GRAN MAT x10^3(ANC) Latest Ref Range: 1.88 - 7.09 10*3/uL 5.17 IMM GRAN x10^3 Latest Ref Range: 0.00 - 0.06 10*3/uL 0.08 (H) LYMPH x10^3 Latest Ref Range: 1.32 - 3.29 10*3/uL 1.83 MONO x10^3 Latest Ref Range: 0.33 - 0.92 10*3/uL 0.66 EOS x10^3 Latest Ref Range: 0.03 - 0.39 10*3/uL 0.18 BASO x10^3 Latest Ref Range: 0.01 - 0.07 10*3/uL 0.07 NA Latest Ref Range: 135 - 145 mmol/L 132 (L) K Latest Ref Range: 3.5 - 5.0 mmol/L 3.9 CL Latest Ref Range: 98 - 108 mmol/L 99 CO2 TOTAL Latest Ref Range: 23 - 31 mmol/L 24 AGAP Latest Ref Range: 2 - 16 9 BUN Latest Ref Range: 7 - 23 mg/dL 23 GLUCOSE Latest Ref Range: 70 - 110 mg/dL 107 CREATININE Latest Ref Range: 0.50 - 1.04 mg/dL 0.82 eGFR CALCULATION (non ) Latest Units: mL/min/1.73m2 67.1 eGFR CALCULATION () Latest Units: mL/min/1.73m2 81.3 TOTAL BILI Latest Ref Range: 0.1 - 1.1 mg/dL 0.6 CALCIUM Latest Ref Range: 8.6 - 10.6 mg/dL 8.1 (L) T PROTEIN Latest Ref Range: 6.3 - 8.2 g/dL 5.8 (L) ALBUMIN Latest Ref Range: 3.5 - 5.0 g/dL 2.6 (L) ALK PHOS Latest Ref Range: 34 - 122 U/L 174 (H) ALTv Latest Ref Range: 5 - 35 U/L 39 (H) AST(SGOT) Latest Ref Range: 13 - 40 U/L 56 (H) Results for JORGE A SHERMAN ( ) as of 02/18/2020 16:08 Ref. Range 02/17/2020 12:40 YEAST BUD Latest Ref Range: <=1 HPF 100 (H) COLOR Latest Ref Range: Yellow Yellow APPEARANCE Latest Ref Range: Clear Turbid (A) SP GRAVITY Latest Ref Range: 1.003 - 1.030 1.009 PH Latest Ref Range: 4.8 - 8.0 5.0 PROTEIN Latest Ref Range: Negative 100 mg/dL (A) GLU U QUAL Latest Ref Range: Normal Normal KETONES Latest Ref Range: Negative Negative BILIRUBIN Latest Ref Range: Negative Negative BLOOD Latest Ref Range: Negative 2+ (A) UROBILIN Latest Ref Range: Normal Normal NITRITE Latest Ref Range: Negative Negative LEUK YAMINI Latest Ref Range: Negative 500/uL (A) RBC/HPF Latest Ref Range: 0 - 3 HPF 161 (H) WBC/HPF Latest Ref Range: 0 - 5 HPF >182 (H) BACTERIA Latest Ref Range: Negative Many (A) WBC CLUMPS Latest Ref Range: <=1 HPF 25 (H) URINE CULTURE Unknown Rpt Microbiology: URINE CULTURE Order: [id number] Status: Preliminary result Visible to patient: No (not released) Specimen Information: URINE, CLEAN CATCH Urine Culture 10,000-100,000 CFU/mL Yeast Identification to follow Medications: Scheduled Medicationssodium bicarbonate, 1,300 mg, TID diphenoxylate-atropine, 1 tablet, Q6H fluconazole, 200 mg, Q24H ABX metoprolol tartrate, 25 mg, BID psyllium, 1 Packet, QID aspirin, 81 mg, DAILY atorvastatin, 40 mg, QHS collagenase, , DAILY ferrous sulfate, 325 mg, QPM levothyroxine, 125 mcg, QAM-0600 mirtazapine, 15 mg, QHS omeprazole, 20 mg, DAILY insulin regular human, , AC IV Medications/Drips PRN Medicationsacetaminophen, 650 mg, Q6HPRN dextrose 50 % in water (D50W), 25 mL, PRN glucagon, 1 mg, PRN ondansetron, 4 mg, Q6HPRN Patient Active Problem List Diagnosis High cholesterol Diet-controlled diabetes mellitus HTN (hypertension), benign Bashir's palsy Other specified hypothyroidism Acquired hypothyroidism Urinary tract infection, site not specified HEATHER (acute kidney injury) Wound infection E46 Unspecified severe protein-calorie malnutrition Assessment: Jorge A Sherman is a 79 year old female with PSH significant for recent CABG and AVR in 11/2019 complicated postoperatively by 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 She had a postoperative wound dehiscence which is currently being managed with a negative pressure dressing and was also found to have intraabdominal fluid collection on CT that is small and unchanged from prior scan done in [place]. The patient'shospital course has been complicated by poor fitting ileostomy bag and yeast UTI. Plan: 1. Continue wound care with wound vac and ileotomy care 2. Continue Diflucan for yeast UTI 3. Continue fiber, Lomotil, and Protonix for ileostomy output 4. Supplement diet with protein 5. Consider placement to SNF versus home with [facility] for discharge planning Apryl Nunez M.D. 02/18/2020 16:05 Estefani Kamara MD - 02/18/2020 2:51 PM CST Nephrology Consult note HPI 79 year-old woman with pmh of hypothyroidism, DM, HLD, HTN, CAD S/P CABG hintestinal blockage s/p resection with subsequent ostomy in 11/2019 and wound vac. Patient presented for nausea, abd pain and leaking from colostomy site Today Feels better Will discharge IVF Will increase PO Sodium Bicarb ROS Constitutional: Positive for appetite change (decreased). Negative for chills, diaphoresis, fatigue,fever and unexpected weight change. Activity change: decreased. Eyes: Negative. Respiratory: Negative. Breasts: Negative. Cardiovascular: Negative. Gastrointestinal: Positive for abdominal pain. Negative for abdominal distention, anal bleeding, blood in stool, constipation, diarrhea, nausea, rectal pain and vomiting. : Negative for bladder incontinence, urgency, frequency, hematuria, flank pain, decreased urine volume, vaginal bleeding, vaginal discharge, enuresis, difficulty urinating, genital sores, vaginal pain, menstrual problem, pelvic pain, dyspareunia and nocturia. Musculoskeletal: Positive for back pain. Negative for arthralgias, gait problem, joint swelling and myalgias. Skin: Positive for rash (ostomy area). Negative for color change, pallor and wound. Neurological: Positive for weakness. Negative for dizziness, tremors, seizures, syncope, facial asymmetry, speech difficulty, light-headedness, numbness and headaches. Psychiatric/Behavioral: Negative. Endocrine: Endocrine negative Past Medical History: Diagnosis Date Acquired hypothyroidism 02/12/2017 Bashir's palsy left side Diet-controlled diabetes mellitus not on any medication. states she is not diabetic anymore per PCP High cholesterol HTN (hypertension), benign follows with Dr. Anguiano. Other specified hypothyroidism Past Surgical History: Procedure Laterality Date BREAST LUMPECTOMY 07/08/2011 Was benign. COLONOSCOPY N/A 07/28/2017 Surgeon: Kale Lundberg MD; Location: [facility] OR [facility] HAMMERTOE CORRECTION Left 05/13/2018 Surgeon: Eran Umana DPM; Location: [facility] OR [facility] LEG/ANKLE SURGERY PROC UNLISTED Right 04/21/2013 Right ankle fracture with four screws placed. OTHER 05/05/2007 Eyelid was repaired. OTHER 1997 Knee surgery OTHER 2015 Hemorrhoid surgery RADICAL HYSTERECTOMY TOTAL ABDOM HYSTERECTOMY Family History Problem Relation Age of Onset Depression Mother Depression Sister several sisters. 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 Social Needs Financial resource strain: Not hard at all Food insecurity Worry: Never true Inability: Never true Transportation needs Medical: No Non-medical: No Tobacco Use Smoking status: Never Smoker Smokeless tobacco: Never Used Substance and Sexual Activity Alcohol use: No Drug use: No Sexual activity: Not on file Lifestyle Physical activity Days per week: Not on file Minutes per session: Not on file Stress: Not on file Relationships Social connections Talks on phone: Not on file Gets together: Not on file Attends orthodoxy service: Not on file Active member of [...] file Social History Narrative Not on file Allergies Allergen Reactions Morphine Sulfate Hallucinations CANNOT TAKE ANY TYPE OF MORPHINE Current Discharge Medication List START taking these medications Details cefpodoxime 100 mg tablet Take 1 tablet by mouth 2 (two) times daily for 7 days. Qty: 14 tablet, Refills: 0 Associated Diagnoses: Chest pain, unspecified type STOP taking these medications collagenase 250 unit/gram ointment Comments: Reason for Stopping: levothyroxine 125 mcg tablet Comments: Reason for Stopping: omeprazole 20 mg capsule Comments: Reason for Stopping: sodium hypochlorite 0.025% Soln solution Comments: Reason for Stopping: warfarin 1 mg tablet Comments: Reason for Stopping: atorvastatin 40 mg tablet Comments: Reason for Stopping: ferrous sulfate 325 mg (65 mg iron) tablet Comments: Reason for Stopping: metoprolol tartrate 25 mg tablet Comments: Reason for Stopping: mirtazapine 15 mg tablet Comments: Reason for Stopping: sodium bicarbonate 650 mg tablet Comments: Reason for Stopping: SERTraline 50 mg tablet Comments: Reason for Stopping: aspirin 81 mg chewable tablet Comments: Reason for Stopping: Current Facility-Administered Medications: diphenoxylate-atropine (LOMOTIL) 2.5-0.025 mg tablet 1 tablet, 1 tablet, Oral, Q6H, James Avery MD, 1 tablet at 02/18/20 1303 fluconazole (DIFLUCAN) Piggyback 200 mg, 200 mg, IV Piggyback, Q24H Feroz SINGH Yaman, MD, 200 mg at 02/17/20 1916 sodium bicarbonate (ANTACID (SODIUM BICARBONATE)) tablet 650 mg, 650 mg, Oral, TID, Estefani Iqbal MD, 650 mg at 02/18/20 1303 metoprolol tartrate (LOPRESSOR) tablet 25 mg, 25 mg, Oral, BID, Basil Redman MD, Stopped at02/17/201999 psyllium (METAMUCIL FIBER SINGLES) 3.4 gram packet 1 Packet, 1 Packet, Oral, KATHIAD, Apryl Nunez MD, 1 Packet at 02/18/20 1303 acetaminophen (TYLENOL) tablet 650 mg, 650 mg, Oral, Q6HPRN, Nivia Teran MD, 650 mg at 02/17/20 1316 aspirin chewable tablet 81 mg, 81 mg, Oral, DAILY, Nivia Teran MD, 81 mg at 02/18/20 0958 atorvastatin (LIPITOR) tablet 40 mg, 40 mg, Oral, QHS, Nivia Teran MD, 40 mg at 02/17/20 2204 collagenase (SANTYL) ointment, , Topical (Apply To Affected Areas), DAILY, Nivia Teran MD, Given at 02/18/20 1001 dextrose 50 % in water (D50W) injection 25 mL, 25 mL, Slow IV Push, PRN, Nivia Teran MD ferrous sulfate tablet 325 mg, 325 mg, Oral, QPM, Nivia Teran MD, 325 mg at 02/17/20 1719 glucagon (GLUCAGEN DIAGNOSTIC KIT) injection 1 mg, 1 mg, Intramuscular, PRN, Nivia Teran MD levothyroxine (SYNTHROID) tablet 125 mcg, 125 mcg, Oral, QAM-0600, Nivia Teran MD, 125 mcg at 02/18/20 0521 mirtazapine (REMERON) tablet 15 mg, 15 mg, Oral, QHS, Nivia Teran MD, 15 mg at 02/17/20 2205 omeprazole (PRILOSEC) capsule 20 mg, 20 mg, Oral, DAILY, Nivia Teran MD, 20 mg at 02/18/20 0959 ondansetron (ZOFRAN (PF)) injection 4 mg, 4 mg, Slow IV Push, Q6HPRN, Nivia Teran MD, 4 mg at 02/14/20 1018 Sliding Scale Insulin-Regular + Fsbg Testing, , Subcutaneous, AC, Nivia Teran MD, Stopped at 02/13/20 1630 BP 102/45 (BP Location: Right arm, Patient Position: Supine) | Pulse 88 | Temp 36.7 C (98 F) (Temporal Artery) | Resp (!) 88 | Ht 1.473 m (4' 10") | Wt 55.5 kg (122 lb 4.8 oz) | SpO2 96% | BMI 25.56 kg/m Physical exam General: AAOX3, NAD , NeckL: supple, no elevated JVD Chest: CTAB, no, rales or wheezes Herat: RRR, Normal S1,2 Abd: Soft, NT , Colsotomy with liquid stool, wound vac Extremities: No edmea CBC WBC (10*3/L) Date Value 02/18/2020 7.99 RBC (10*6/L) Date Value 02/18/2020 2.74 (L) PLT (10*3/L) Date Value 02/18/2020 371 (H) HGB (g/dL) Date Value 02/18/2020 7.6 (L) HCT (%) Date Value 02/18/2020 23.5 (L) CMP NA (mmol/L) Date Value 02/18/2020 132 (L) K (mmol/L) Date Value 02/18/2020 3.9 CALCIUM (mg/dL) Date Value 02/18/2020 8.1 (L) CL (mmol/L) Date Value 02/18/2020 99 BUN (mg/dL) Date Value 02/18/2020 23 CREATININE (mg/dL) Date Value 02/18/2020 0.82 GLUCOSE (mg/dL) Date Value 02/18/2020 107 CO2 TOTAL (mmol/L) Date Value 02/18/2020 24 ALBUMIN (g/dL) Date Value 02/18/2020 2.6 (L) T PROTEIN (g/dL) Date Value 02/18/2020 5.8 (L) TOTAL BILI (mg/dL) Date Value 02/18/2020 0.6 BILI UNCON (mg/dL) Date Value 02/11/2020 0.7 BILI CONJ (mg/dL) Date Value 02/11/2020 0.0 ALT(SGPT) (U/L) Date Value 07/12/2018 25 ALTv (U/L) Date Value 02/18/2020 39 (H) AST(SGOT) (U/L) Date Value 02/18/2020 56 (H) ALK PHOS (U/L) Date Value 02/18/2020 174 (H) Assessment and plan HEATHER Resolved Due to dehydration from Stoma loss Abd CT no hydro Hyponatremia Improved PO fluid restriction encourage food intake NAGMA Due to diarrhea Lomotil and psyllium for stool bulking Sacral decubiti wound Continue wound care UTI Continue Abx Sosa changed Total time spent 60min OR OFFICE SUPPORT ASSISTANT SOSA Kevin Hayward PA - 02/17/2020 5:45 PM CST [facility] Hospitalist Progress Note SUBJECTIVE: Sitting in chair. Daughter bedside. No acute events overnight. Patient not wanting to eat much. Daughter encouraging patient to continue eating as much as possible. Even if it small amounts throughout the day. CURRENT MEDICATIONS - reviewed. Current Facility-Administered Medications Medication Dose Route Frequency Last Rate Last Admin diphenoxylate-atropine (LOMOTIL) 2.5-0.025 mg tablet 1 tablet 1 tablet Oral Q6H 1 tablet at 02/17/20 1316 fluconazole (DIFLUCAN) Piggyback 200 mg 200 mg IV Piggyback Q24H ABX NaCl 0.9% (NS) bolus infusion 500 mL 500 mL IV Infusion ONCE sodium bicarbonate 150 mEq in D5W 1,000 mL IV infusion 150 mEq IV Infusion CONTINUOUS sodium bicarbonate (ANTACID (SODIUM BICARBONATE)) tablet 650 mg 650 mg Oral TID 650 mg at 02/17/20 1316 metoprolol tartrate (LOPRESSOR) tablet 25 mg 25 mg Oral BID 25 mg at 02/17/20 0929 warfarin (COUMADIN) tablet 3 mg 3 mg Oral DAILY AT 1700 3 mg at 02/17/20 1719 psyllium (METAMUCIL FIBER SINGLES) 3.4 gram packet 1 Packet 1 Packet Oral QID 1 Packet at 02/17/20 1718 acetaminophen (TYLENOL) tablet 650 mg 650 mg Oral Q6HPRN 650 mg at 02/17/20 1316 aspirin chewable tablet 81 mg 81 mg Oral DAILY 81 mg at 02/17/20 0929 atorvastatin (LIPITOR) tablet 40 mg 40 mg Oral QHS 40 mg at 02/16/202156 collagenase (SANTYL) ointment Topical (Apply To Affected Areas) DAILY Given at 02/17/20928 dextrose 50 % in water (D50W) injection 25 mL 25 mL Slow IV Push PRN ferrous sulfate tablet 325 mg 325 mg Oral QPM 325 mg at 02/17/20 1719 glucagon (GLUCAGEN DIAGNOSTIC KIT) injection 1 mg 1 mg Intramuscular PRN levothyroxine (SYNTHROID) tablet 125 mcg 125 mcg Oral QAM-0600 125 mcg at 02/17/20 0536 mirtazapine (REMERON) tablet 15 mg 15 mg Oral QHS 15 mg at 02/16/202156 omeprazole (PRILOSEC) capsule 20 mg 20 mg Oral DAILY 20 mg at 02/17/20928 ondansetron (ZOFRAN (PF)) injection 4 mg 4 mg Slow IV Push Q6HPRN 4 mg at 02/14/20 1018 Sliding Scale Insulin-Regular + Fsbg Testing Subcutaneous AC Stopped at 02/13/20 1630 PHYSICAL EXAM: BP (!) 88/48 (BP Location: Right arm, Patient Position: Sitting) | Pulse 81 | Temp 36.9 C (98.5 F) (Tympanic) | Resp 20 | Ht 1.473 m (4' 10") | Wt 55.5 kg (122 lb 4.8 oz) | SpO2 99% | BMI 25.56 kg/m General: No respiratory distress, NAD HEENT: Anicteric sclerae, NCAT Lungs: Symmetric expansion, CTAB Cardio: RRR, strong symmetric pulses Abdomen: Soft, NTND, Ostomy r side, ostomy with pink mucosa and healthy, productive green fluid. Midline wound VAC in place, Genitourinary: No lesions Musculoskeletal: Normal muscle mass, no synovitis Skin: Small skin irritation around ostomy site, stage II coccyx pressure ulcer Neuro: AAOx3, no focal deficits Psych: Normal affect LABS/IMAGING - reviewed, pertinent results as below: CBC BMP PT/INR WBC (10*3/L) Date Value 02/17/2020 14.13 (H) NA (mmol/L) Date Value 02/17/2020 130 (L) No results found for: PT RBC (10*6/L) Date Value 02/17/2020 3.46 (L) K (mmol/L) Date Value 02/17/2020 4.1 INR (no units) Date Value 02/16/2020 2.3 PLT (10*3/L) Date Value 02/17/2020 473 (H) CALCIUM (mg/dL) Date Value 02/17/2020 6.9 (L) HGB (g/dL) Date Value 02/17/2020 9.8 (L) CL (mmol/L) Date Value 02/17/2020 109 (H) aPTT HCT (%) Date Value 02/17/2020 29.9 (L) BUN (mg/dL) Date Value 02/17/2020 22 APTT Patient (Seconds) Date Value 02/06/2020 28 CREATININE (mg/dL) Date Value 02/17/2020 0.92 IMAGING- Hospital Encounter on 02/11/20 CT ABDOMEN PELVIS WO CONTRAST Narrative Ordering physician: NIVIA TERAN Indication: Elevated liver enzymes and lipase, decreased urine output COMPARISON: CT the abdomen and pelvis dated 02/05/2020 TECHNIQUE: Axial images of the abdomen and pelvis were performed without the administration of intravenous contrast material. Images were reformatted in the coronal and sagittal plane. CT scan was performed according to ALARA (as low as reasonably achievable) policy. FINDINGS: The lung bases are clear. The patient is status post median sternotomy. There is prominent mitral valve calcification. The patient is status post cholecystectomy. The noncontrast appearance of the liver, spleen, adrenal glands and pancreas is within normal limits. The kidneys are normal in appearance bilaterally without hydronephrosis or urinary system calculus. There is atherosclerotic calcification of the aorta without significant aneurysmal dilatation. There are small foci of air in the urinary bladder, consistent with recent instrumentation. 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 There is redemonstration of an extraluminal collection of air and fluid subjacent to the right rectus sheath, measuring 4.1 x 2.7 cm (series 2, image 74). The patient is status post subtotal colectomy, with the descending and sigmoid colon remaining in situ.. Bone windows through the abdomen and pelvis demonstrate no osseous destructive lesion. Impression Ileostomy exiting the right pelvic wall. There is redemonstration of an air and fluid collection subjacent to the right rectus sheath, measuring approximately 4.1 x 2.7 cm, similar to prior study of 02/05/2020. No evidence for bowel obstruction. 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 RL: [id number] AFC: [id number] Chest 1 View Narrative EXAM: XR CHEST 1 VW HISTORY: chest pain COMPARISON: 02/03/2020 FINDINGS: Lines/Tubes: None. Lungs: The lungs are clear. No pleural effusion or pneumothorax is identified. Heart/Mediastinum: The cardiomediastinal silhouette is mild enlarged. Status post CABG and aortic valve prosthesis. Bones: No acute osseous abnormality is seen. Medial sternotomy. Mild spondylosis. Surgical clips project over the epigastrium and gallbladder region. Impression 1. Cardiomegaly appears stable. ASSESSMENT/PLAN Jorge A Sherman is a 79 year old female with PMH as listed above, admitted to the hospital with: #HEATHER 2/2 dehydration and ostomy leakage #Hyponatremia-improving -Continue gentle IV hydration -Continue sodium bicarb 650 mg QD -Renal dose all meds -Renal Diet -Strict I/O -Consult Nephro Dr Jara #Ostomy leakage, -Metamucil Fiber QID, start Lomotil -Appointment made with Eleanor Renteria in [facility] on February 19, 2019 at 10 AM for ostomy care -New ostomychanged on 02/14/2020 however, ostomy leak continues. Surgeon added moldable ring around ostomy, along with no sting prep, ostomy powder, and one piece ostomy bag -Wound Care Consult for daily wound care at ostomy site.Instructions for wound care provided in nursing orders. Only soap and water to be used on skin. If ostomy bag leaks, entire device needs to be changed. Reinforcement of bag or placement of towels to catch leakage does not work -Recommending Mepilex around ostomy site for skin irritation -CT: Intraabdominal fluid collection on CT that is small and unchanged from prior scan. After reviewwith radiologist, unlikely to benefit from drainage procedure. Wound vac continues to hold suctionand was changed out on 02/16/2020 -Wound culture MDR-A acinetobacter baumannii and gram negative bacilli susceptibily colistin, Imipenem, Tigecycline #UTI/Cystitis -Urine culture no anaerobic growth -Repeat UA and urine culture pending #HTN -Currently hypotensive and bp meds are being held at this time #Hypothyroidism -TSH 56.10. Free T4 0.88 -Continue Levothyroxin 125 mcg QD #Mechanical AO Valve stable -Continue Warfarin and increased to 3mg 0n 02/14/2020 -INR is up-trending -Daily INR -Goal INR 2-3 #Intra-abdominal fluid collection -Surgical Consult -Start Lomotil to slow ostomy output, continue psyllium -Wound VAC last changed bedside 02/16/2020 -Awaiting OSH records -Monitor CBC in particular leukocytosis. Surgery to consider CT tap with p.o. and IV contrast to evaluate for intra-abdominal source or progression of known fluid collection. #Stage 2 Ulcer to Coccyx POA -Daily dressing change -Frequent repositioning Prophylaxis: DVT-Coumadin therapy Stress Ulcer:no indication for prophylaxis Code Status:addressed:full code Disposition:DC to home when medically stable ROBERT Armenta OR OFFICE SUPPORT ASSISTANT SOSA Associated attestation - Basil Redman MD - 02/17/2020 6:05 PM CSTI have independently seen and evaluated this patient. I agree with the note below including physicalexam and plan. In summary, patient is admitted for HEATHER 2/2 dehydration and ostomy leak. Surgery on board s/p wound-vac exchange at bedside and awaiting ostomy supplies. Increased warfarin to 3 mg for mechanical AV target INR 2-3. Urine cx negative but now appears to have pyuria, repeat UA shows significant yeast. Repeat urine cx sent. Prior urine cx grew Don glabrata - will start on IV fluconazole empiric and notify micro lab to run azole sensitivities if still growing don. Wound cx+ MDR Acinetobacter, likely colonizer per Dr. Nunez. Contact precautions. Rest of plan per below. James Avery MD - 02/17/2020 10:17 AM CST GENERAL SURGERY DAILY PROGRESS NOTE Patient Name: Jorge A Sherman Date of : 1940 Date: 02/17/2020 24 Hour Events: - No acute events overnight - Afebrile, VS WNL - Wound culture resulted MDR Acinetobacter, suspect colonization - WBC 14.1 from 13 yesterday - Sosa placed in AM, draining opaque yellow/white fluid Physical Exam: Vital Signs Temp: [36.6 C (97.8 F)-37.3 C (99.1 F)] Pulse: [76-87] Resp: [18] BP: (96-109)/(41-63) Intake/Output Intake/Output Summary (Last 24 hours) at 02/17/2020 1018 Last data filed at 02/17/2020 0559 Gross per 24 hour Intake 150 ml Output 500 ml Net -350 ml General: alert and oriented in no apparent distress Head: normocephalic, atraumatic Eyes: extraocular movements intact; no scleral icterus CV: hemodynamically stable Resp: unlabored, no increased work of breathing, equal bilateral chest rise Gi: abdomen soft, nondistended, tender to palpation in RLQ around ileostomy due to skin breakdown and maceration. Ileostomy mucosa pink and healthy, productive of green fluid. Midline abdominal wound with vac in place holding suction and no surrounding cellulitis. LLQ ecchymosis noted Extremities/Musculoskeletal: moves extremities well, no edema or cyanosis Labs: I independently reviewed the patient's labs. CBC WBC (10*3/L) Date Value 02/17/2020 14.13 (H) RBC (10*6/L) Date Value 02/17/2020 3.46 (L) PLT (10*3/L) Date Value 02/17/2020 473 (H) HGB (g/dL) Date Value 02/17/2020 9.8 (L) HCT (%) Date Value 02/17/2020 29.9 (L) BMP NA (mmol/L) Date Value 02/16/2020 125 (L) K (mmol/L) Date Value 02/16/2020 4.8 CALCIUM (mg/dL) Date Value 02/16/2020 8.8 CL (mmol/L) Date Value 02/16/2020 96 (L) BUN (mg/dL) Date Value 02/16/2020 27 (H) CREATININE (mg/dL) Date Value 02/16/2020 1.50 (H) GLUCOSE (mg/dL) Date Value 02/16/2020 79 CO2 TOTAL (mmol/L) Date Value 02/16/2020 19 (L) Hepatic Function Panel ALBUMIN (g/dL) Date Value 02/16/2020 3.5 T PROTEIN (g/dL) Date Value 02/16/2020 7.8 TOTAL BILI (mg/dL) Date Value 02/16/2020 0.9 BILI UNCON (mg/dL) Date Value 02/11/2020 0.7 BILI CONJ (mg/dL) Date Value 02/11/2020 0.0 ALT(SGPT) (U/L) Date Value 07/12/2018 25 ALTv (U/L) Date Value 02/16/2020 44 (H) AST(SGOT) (U/L) Date Value 02/16/2020 67 (H) ALK PHOS (U/L) Date Value 02/16/2020 201 (H) Radiology: No new images Assessment: Jorge A Sherman is a 79 year old female with PSH significant for recent CABG and AVR in 11/2019 complicated postoperatively by bowel ischemia requiring extended right hemicolectomy and end ileostomy creation (confirmed by op report from [facility], done by Dr. Higgins) admitted for malaise and HEATHER. Found to have intraabdominal fluid collection on CT that is small and unchanged from priorscan. After review with radiologist, unlikely to benefit from drainage procedure. Ostomy continues to leak, although requires less frequent changing. Output still appears very liquid, will switch from Imodium to Lomotil. Leukocytosis concerning for new infectious process, suspect urinary source given cloudy urine after Sosa placed Plan: 1. UA and culture ordered, recommend antibiotics 2. Discontinue Imodium, start Lomotil to slow ostomy output. Continue psyllium for stool bulking 3. Wound vac last changed at bedside 02/15/19 4. Recommend Mepilex around ostomy site for skin irritation 5. If continues to have persistent leukocytosis, will consider CTAP with PO and IV contrast to evaluate for intraabdominal source or progression of known fluid collection Patient seen with faculty Dr. Enrqiue Avery MD General Surgery PGY-2 OR OFFICE SUPPORT ASSISTANT SOSA Associated attestation - Apryl Nunez MD - 02/17/2020 12:04 PM CSTAttending Attestation: I personally evaluated and examined the patient on 02/17/[address] Avery's progress note as written. I actively participated in the decision-making process. Please see the resident's note foradditional details. Apryl Nunez M.D. 02/17/2020 12:04Thomas, GABRIEL Cyr - 02/16/2020 6:03 PM CST [facility] Hospitalist Progress Note SUBJECTIVE: Patient ostomy continues to leaks, family requesting for a ostomy wound nurse to visit appointment be made with Eleanor Renterai in [place] CURRENT MEDICATIONS - reviewed. Current Facility-Administered Medications Medication Dose Route Frequency Last Rate Last Admin loperamide (IMODIUM A-D) capsule 2 mg 2 mg Oral Q6H 2 mg at 02/16/20 1741 metoprolol tartrate (LOPRESSOR) tablet 25 mg 25 mg Oral BID 25 mg at 02/16/20 0853 warfarin (COUMADIN) tablet 3 mg 3 mg Oral DAILY AT 1700 3 mg at 02/16/20 1742 psyllium (METAMUCIL FIBER SINGLES) 3.4 gram packet 1 Packet 1 Packet Oral QID 1 Packet at 02/16/20 1737 acetaminophen (TYLENOL) tablet 650 mg 650 mg Oral Q6HPRN 650 mg at 02/15/202034 aspirin chewable tablet 81 mg 81 mg Oral DAILY 81 mg at 02/16/20 0854 atorvastatin (LIPITOR) tablet 40 mg 40 mg Oral QHS 40 mg at 02/15/20 203 collagenase (SANTYL) ointment Topical (Apply To Affected Areas) DAILY Given at 02/16/20 0857 dextrose 50 % in water (D50W) injection 25 mL 25 mL Slow IV Push PRN ferrous sulfate tablet 325 mg 325 mg Oral QPM 325 mg at 02/16/20 1737 glucagon (GLUCAGEN DIAGNOSTIC KIT) injection 1 mg 1 mg Intramuscular PRN levothyroxine (SYNTHROID) tablet 125 mcg 125 mcg Oral QAM-0600 125 mcg at 02/16/20 0546 mirtazapine (REMERON) tablet 15 mg 15 mg Oral QHS 15 mg at 02/15/202034 omeprazole (PRILOSEC) capsule 20 mg 20 mg Oral DAILY 20 mg at 02/16/20 0854 ondansetron (ZOFRAN (PF)) injection 4 mg 4 mg Slow IV Push Q6HPRN 4 mg at 02/14/20 1018 Sliding Scale Insulin-Regular + Fsbg Testing Subcutaneous AC Stopped at 02/13/20 1630 sodium bicarbonate (ANTACID (SODIUM BICARBONATE)) tablet 650 mg 650 mg Oral DAILY 650 mg at 02/16/20 0854 PHYSICAL EXAM: BP 103/43 | Pulse 78 | Temp 36.9 C (98.5 F) | Resp 18 | Ht 1.473 m (4' 10") | Wt 49.9 kg (110 lb) | SpO2 99% | BMI 22.99 kg/m General: NAD, lethargic HEENT: Anicteric sclerae, NCAT Lungs: CTAB Cardio: RRR, strong symmetric pulses Abdomen: Soft, ileostomy bag in place, abdominal maceration, ecchymosis Genitourinary: No lesions Musculoskeletal: Normal muscle mass, no synovitis Skin: No rash or lesions, normal turgot Neuro: AAO, no focal deficits Psych: Normal affect LABS/IMAGING - reviewed, pertinent results as below: CBC BMP PT/INR WBC (10*3/L) Date Value 02/16/2020 13.72 (H) NA (mmol/L) Date Value 02/16/2020 125 (L) No results found for: PT RBC (10*6/L) Date Value 02/16/2020 3.44 (L) K (mmol/L) Date Value 02/16/2020 4.8 INR (no units) Date Value 02/16/2020 2.3 PLT (10*3/L) Date Value 02/16/2020 525 (H) CALCIUM (mg/dL) Date Value 02/16/2020 8.8 HGB (g/dL) Date Value 02/16/2020 9.5 (L) CL (mmol/L) Date Value 02/16/2020 96 (L) aPTT HCT (%) Date Value 02/16/2020 29.9 (L) BUN (mg/dL) Date Value 02/16/2020 27 (H) APTT Patient (Seconds) Date Value 02/06/2020 28 CREATININE (mg/dL) Date Value 02/16/2020 1.50 (H) IMAGING- Hospital Encounter on 02/11/20 CT ABDOMEN PELVIS WO CONTRAST Narrative Ordering physician: NIVIA TERAN Indication: Elevated liver enzymes and lipase, decreased urine output COMPARISON: CT the abdomen and pelvis dated 02/05/2020 TECHNIQUE: Axial images of the abdomen and pelvis were performed without the administration of intravenous contrast material. Images were reformatted in the coronal and sagittal plane. CT scan was performed according to ALARA (as low as reasonably achievable) policy. FINDINGS: The lung bases are clear. The patient is status post median sternotomy. There is prominent mitral valve calcification. The patient is status post cholecystectomy. The noncontrast appearance of the liver, spleen, adrenal glands and pancreas is within normal limits. The kidneys are normal in appearance bilaterally without hydronephrosis or urinary system calculus. There is atherosclerotic calcification of the aorta without significant aneurysmal dilatation. There are small foci of air in the urinary bladder, consistent with recent instrumentation. 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 There is redemonstration of an extraluminal collection of air and fluid subjacent to the right rectus sheath, measuring 4.1 x 2.7 cm (series 2, image 74). The patient is status post subtotal colectomy, with the descending and sigmoid colon remaining in situ.. Bone windows through the abdomen and pelvis demonstrate no osseous destructive lesion. Impression Ileostomy exiting the right pelvic wall. There is redemonstration of an air and fluid collection subjacent to the right rectus sheath, measuring approximately 4.1 x 2.7 cm, similar to prior study of 02/05/2020. No evidence for bowel obstruction. 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 RL: [id number] AF: [id number] Chest 1 View Narrative EXAM: XR CHEST 1 VW HISTORY: chest pain COMPARISON: 02/03/2020 FINDINGS: Lines/Tubes: None. Lungs: The lungs are clear. No pleural effusion or pneumothorax is identified. Heart/Mediastinum: The cardiomediastinal silhouette is mild enlarged. Status post CABG and aortic valve prosthesis. Bones: No acute osseous abnormality is seen. Medial sternotomy. Mild spondylosis. Surgical clips project over the epigastrium and gallbladder region. Impression 1. Cardiomegaly appears stable. ASSESSMENT/PLAN Jorge A Sherman is a 79 year old female with PMH as listed above, admitted to the hospital with: 1. HEATHER 2/2 dehydration and ostomy leakage Hyponatremia Start NS @ 70 ml And restrict fluids 1.0 Liter Continue sodium bicarb 650 mg QD Renal dose all meds Renal Diet Strict I/O Consult Nephro Dr Jara 2. Ostomy leakage, Metamucil Fiber QID Appointment made with Eleanor Renteria in [facility] on February 19, 2019 at 10 AM for ostomy care New ostomy changed on 02/14/2020 however, ostomy leak continues. Surgeon added moldable ring around ostomy, along with no sting prep, ostomy powder, and one piece ostomy bag Wound Care Consult for daily wound care at ostomy site. Instructions for wound care provided in nursing orders. Only soap and water to be used on skin. If ostomy bag leaks, entire device needs to be changed. Reinforcement of bag or placement of towels to catch leakage does not work CT: Intraabdominal fluid collection on CT that is small and unchanged from prior scan. After review with radiologist, unlikely to benefit from drainage procedure. Wound vac continues to hold suctionand was changed out on 02/14/2020 Wound culture MDR-A acinetobacter baumannii and gram negative bacilli susceptibily colistin, Imipenem, Tigecycline 3. UTI/Cystitis Urine culture no anaerobic growth 4. HTN Currently hypotensive and bp meds are being held at this time 5. Hypothyroidism TSH 56.10. Free T4 0.88 Continue Levothyroxin 125 mcg QD 6. Mechanical AO Valve stable Continue Warfarin and increased to 3mg 0n 02/14/2020 INR is up-trending Daily INR Goal INR 2-3 7. Intra-abdominal fluid collection Surgical Consult Awaiting OSH records 8. Stage 2 Ulcer to Coccyx POA Daily dressing change Frequent repositioning Prophylaxis: DVT-Coumadin therapy Stress Ulcer:no indication for prophylaxis Code Status:addressed:full code Disposition:DC to home when medically stable [facility] was viewed during this stay GABRIEL Bryant OR OFFICE SUPPORT ASSISTANT SOSA Associated attestation - Basil Redman MD - 02/16/2020 6:38 PM CSTI have independently seen and evaluated this patient. I agree with the note below including physicalexam and plan. In summary, patient is admitted for HEATHER 2/2 dehydration and ostomy leak. Surgery on board s/p wound-vac exchange at bedside and awaiting ostomy supplies. Increased warfarin to 3 mg for mechanical AV target INR 2-3. Urine cx negative. Wound cx+ MDR Acinetobacter, likely colonizer. Contact precautions. Rest of plan per below. James Avery MD - 02/16/2020 5:33 PM CST GENERAL SURGERY DAILY PROGRESS NOTE Patient Name: Jorge A Sherman Date of : 1940 Date: 02/16/2020 24 Hour Events: - No acute events overnight - Afebrile, VS WNL - Ostomy leaked overnight despite moldable rings - Stool appears thickened after adding imodium - Wound culture growing Acinetobacter Physical Exam: Vital Signs Temp: [36.4 C (97.5 F)-37.1 C (98.8 F)] Pulse: [74-85] Resp: [18-20] BP: (90-111)/(40-57) MAP (mmHg): [56-70] Intake/Output No intake or output data in the 24 hours ending 02/16/20 1733 General: alert and oriented in no apparent distress Head: normocephalic, atraumatic Eyes: extraocular movements intact; no scleral icterus CV: hemodynamically stable Resp: unlabored, no increased work of breathing, equal bilateral chest rise Gi: abdomen soft, nondistended, tender to palpation in RLQ around ileostomy due to skin breakdown and maceration. Ileostomy mucosa pink and healthy, productive of green fluid. Midline abdominal wound with vac in place holding suction and no surrounding cellulitis. LLQ ecchymosis noted Extremities/Musculoskeletal: moves extremities well, no edema or cyanosis Labs: I independently reviewed the patient's labs. CBC WBC (10*3/L) Date Value 02/16/2020 13.72 (H) RBC (10*6/L) Date Value 02/16/2020 3.44 (L) PLT (10*3/L) Date Value 02/16/2020 525 (H) HGB (g/dL) Date Value 02/16/2020 9.5 (L) HCT (%) Date Value 02/16/2020 29.9 (L) BMP NA (mmol/L) Date Value 02/16/2020 125 (L) K (mmol/L) Date Value 02/16/2020 4.8 CALCIUM (mg/dL) Date Value 02/16/2020 8.8 CL (mmol/L) Date Value 02/16/2020 96 (L) BUN (mg/dL) Date Value 02/16/2020 27 (H) CREATININE (mg/dL) Date Value 02/16/2020 1.50 (H) GLUCOSE (mg/dL) Date Value 02/16/2020 79 CO2 TOTAL (mmol/L) Date Value 02/16/2020 19 (L) Hepatic Function Panel ALBUMIN (g/dL) Date Value 02/16/2020 3.5 T PROTEIN (g/dL) Date Value 02/16/2020 7.8 TOTAL BILI (mg/dL) Date Value 02/16/2020 0.9 BILI UNCON (mg/dL) Date Value 02/11/2020 0.7 BILI CONJ (mg/dL) Date Value 02/11/2020 0.0 ALT(SGPT) (U/L) Date Value 07/12/2018 25 ALTv (U/L) Date Value 02/16/2020 44 (H) AST(SGOT) (U/L) Date Value 02/16/2020 67 (H) ALK PHOS (U/L) Date Value 02/16/2020 201 (H) Radiology: No new images Assessment: Jorge A Sherman is a 79 year old female with PSH significant for recent CABG and AVR in 11/2019 complicated postoperatively by bowel ischemia requiring extended right hemicolectomy and end ileostomy creation (confirmed by op report from [facility], done by Dr. Higgins) admitted for malaise and HEATHER. Found to have intraabdominal fluid collection on CT that is small and unchanged from priorscan. After review with radiologist, unlikely to benefit from drainage procedure. Ostomy continues to leak, although requires less frequent changing after addition of Imodium. Leukocytosis concerning for new infectious process, although patient's labs suggest dehydration/hemoconcentration as well Plan: 1. Wound vac changed at bedside 2. Recommend antibiotics in setting of leukocytosis, can follow up sensitivities for wound culture to guide treatment 3. Instructions for wound care provided in nursing orders. Only soap and water to be used on skin. If ostomy bag leaks, entire device needs to be changed. Reinforcement of bag or placement of towels tocatch leakage does not work 4. Continue imodium to slow ostomy output and psyllium for stool bulking Patient seen with faculty Dr. Enrique Avery MD General Surgery PGY-2 OR OFFICE SUPPORT ASSISTANT SOSA Associated attestation - Apryl Nunez MD - 02/17/2020 11:56 AM CSTAttending Attestation: I personally evaluated and examined the patient on 02/16/[address] Avery's progress note as written. I actively participated in the decision-making process. Please see the resident's note foradditional details. Apryl Nunez M.D. 02/17/2020 11:56CarDevon zamora PT - 02/16/2020 10:18 AM CSTPT Note: Consult received and Epic reviewed. Per nursing, ostomy continues to leak and limit participation with mobility assessment and training. Will continue to hold and initiate PT evaluation with mobility training when appropriate. [place] [id number] Suzette Sierra FNP - 02/15/2020 5:42 PM CST [facility] Hospitalist Progress Note SUBJECTIVE: Beninese Speaking Only. [employer] program used to communicate. Patient reports that she is feeling better. She reports that she still has pain 2/10 where there is excoriated around her ostomy opening. She reports that the ostomy opening is leaking stool. CURRENT MEDICATIONS - reviewed. Current Facility-Administered Medications Medication Dose Route Frequency Last Rate Last Admin loperamide (IMODIUM A-D) capsule 2 mg 2 mg Oral Q6H 2 mg at 02/15/20 1329 metoprolol tartrate (LOPRESSOR) tablet 25 mg 25 mg Oral BID 25 mg at 02/15/20 1741 warfarin (COUMADIN) tablet 3 mg 3 mg Oral DAILY AT 1700 3 mg at 02/15/20 1740 psyllium (METAMUCIL FIBER SINGLES) 3.4 gram packet 1 Packet 1 Packet Oral QID 1 Packet at 02/15/20 1740 acetaminophen (TYLENOL) tablet 650 mg 650 mg Oral Q6HPRN 650 mg at 02/14/202012 aspirin chewable tablet 81 mg 81 mg Oral DAILY 81 mg at 02/15/20 0825 atorvastatin (LIPITOR) tablet 40 mg 40 mg Oral QHS 40 mg at 02/14/202013 collagenase (SANTYL) ointment Topical (Apply To Affected Areas) DAILY Given at 02/15/20 0831 dextrose 50 % in water (D50W) injection 25 mL 25 mL Slow IV Push PRN ferrous sulfate tablet 325 mg 325 mg Oral QPM 325 mg at 02/15/20 1740 glucagon (GLUCAGEN DIAGNOSTIC KIT) injection 1 mg 1 mg Intramuscular PRN levothyroxine (SYNTHROID) tablet 125 mcg 125 mcg Oral QAM-0600 125 mcg at 02/15/20 0738 mirtazapine (REMERON) tablet 15 mg 15 mg Oral QHS 15 mg at 02/14/202012 omeprazole (PRILOSEC) capsule 20 mg 20 mg Oral DAILY 20 mg at 02/15/20 0825 ondansetron (ZOFRAN (PF)) injection 4 mg 4 mg Slow IV Push Q6HPRN 4 mg at 02/14/20 1018 Sliding Scale Insulin-Regular + Fsbg Testing Subcutaneous AC Stopped at 02/13/20 1630 sodium bicarbonate (ANTACID (SODIUM BICARBONATE)) tablet 650 mg 650 mg Oral DAILY 650 mg at 02/15/20 0824 PHYSICAL EXAM: BP 124/62 | Pulse 96 | Temp 36.6 C (97.9 F) (Temporal Artery) | Resp 18 | Ht 1.473 m (4' 10") | Wt 49.9 kg (110 lb) | SpO2 99% | BMI 22.99 kg/m General: alert and oriented in no apparent distress. Beninese Speaking Only Head: normocephalic, atraumatic Eyes: extraocular movements intact; no scleral icterus CV: hemodynamically stable Resp: unlabored, no increased work of breathing, equal bilateral chest rise Gi: abdomen soft, nondistended, tender to palpation in RLQ around ileostomy due to skin breakdown and maceration. Ileostomy mucosa pink and healthy, productive of green fluid. Midline abdominal wound with vac in place holding suction and no surrounding cellulitis. LLQ ecchymosis noted Extremities/Musculoskeletal: moves extremities well, no edema or cyanosis LABS/IMAGING - reviewed, pertinent results as below: CBC BMP PT/INR WBC (10*3/L) Date Value 02/15/2020 11.92 (H) NA (mmol/L) Date Value 02/15/2020 128 (L) No results found for: PT RBC (10*6/L) Date Value 02/15/2020 3.12 (L) K (mmol/L) Date Value 02/15/2020 4.7 INR (no units) Date Value 02/15/2020 2.1 PLT (10*3/L) Date Value 02/15/2020 459 (H) CALCIUM (mg/dL) Date Value 02/15/2020 9.1 HGB (g/dL) Date Value 02/15/2020 8.9 (L) CL (mmol/L) Date Value 02/15/2020 98 aPTT HCT (%) Date Value 02/15/2020 26.8 (L) BUN (mg/dL) Date Value 02/15/2020 26 (H) APTT Patient (Seconds) Date Value 02/06/2020 28 CREATININE (mg/dL) Date Value 02/15/2020 1.28 (H) IMAGING- Hospital Encounter on 02/11/20 CT ABDOMEN PELVIS WO CONTRAST Narrative Ordering physician: NIVIA TERAN Indication: Elevated liver enzymes and lipase, decreased urine output COMPARISON: CT the abdomen and pelvis dated 02/05/2020 TECHNIQUE: Axial images of the abdomen and pelvis were performed without the administration of intravenous contrast material. Images were reformatted in the coronal and sagittal plane. CT scan was performed according to ALARA (as low as reasonably achievable) policy. FINDINGS: The lung bases are clear. The patient is status post median sternotomy. There is prominent mitral valve calcification. The patient is status post cholecystectomy. The noncontrast appearance of the liver, spleen, adrenal glands and pancreas is within normal limits. The kidneys are normal in appearance bilaterally without hydronephrosis or urinary system calculus. There is atherosclerotic calcification of the aorta without significant aneurysmal dilatation. There are small foci of air in the urinary bladder, consistent with recent instrumentation. 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 There is redemonstration of an extraluminal collection of air and fluid subjacent to the right rectus sheath, measuring 4.1 x 2.7 cm (series 2, image 74). The patient is status post subtotal colectomy, with the descending and sigmoid colon remaining in situ.. Bone windows through the abdomen and pelvis demonstrate no osseous destructive lesion. Impression Ileostomy exiting the right pelvic wall. There is redemonstration of an air and fluid collection subjacent to the right rectus sheath, measuring approximately 4.1 x 2.7 cm, similar to prior study of 02/05/2020. No evidence for bowel obstruction. 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 RL: 460 AFC: [id number] Chest 1 View Narrative EXAM: XR CHEST 1 VW HISTORY: chest pain COMPARISON: 02/03/2020 FINDINGS: Lines/Tubes: None. Lungs: The lungs are clear. No pleural effusion or pneumothorax is identified. Heart/Mediastinum: The cardiomediastinal silhouette is mild enlarged. Status post CABG and aortic valve prosthesis. Bones: No acute osseous abnormality is seen. Medial sternotomy. Mild spondylosis. Surgical clips project over the epigastrium and gallbladder region. Impression 1. Cardiomegaly appears stable. ASSESSMENT/PLAN Jorge A Sherman is a 79 year old female with PMH as listed above, admitted to the hospital with: 1. HEATHER 2/2 dehydration and ostomy leakage Continue sodium bicarb 650 mg QD Renal dose all meds Renal Diet Strict I/O 2. Ostomy leakage Metamucil Fiber QID New ostomy changed on 02/14/2020 however, ostomy leak continues. Surgeon added moldable ring around ostomy, along with no sting prep, ostomy powder, and one piece ostomy bag Wound Care Consult for daily wound care at ostomy site. Instructions for wound care provided in nursing orders. Only soap and water to be used on skin. If ostomy bag leaks, entire device needs to be changed. Reinforcement of bag or placement of towels to catch leakage does not work CT: Intraabdominal fluid collection on CT that is small and unchanged from prior scan. After review with radiologist, unlikely to benefit from drainage procedure. Wound vac continues to hold suction and was changed out on 02/14/2020 3. UTI/Cystitis Continue IV Ceftriaxone 1 gm QD 4. HTN Currently hypotensive and bp meds are being held at this time 5. Hypothyroidism TSH 56.10. Free T4 0.88 Continue Levothyroxin 125 mcg QD 6. Mechanical AO Valve Continue Warfarin and increased to 3mg 0n 02/14/2020 INR is up-trending Daily INR Goal INR 2-3 7. Intra-abdominal fluid collection Surgical Consult Awaiting OSH records 8. Stage 2 Ulcer to Coccyx POA Daily dressing change Frequent repositioning Prophylaxis: DVT- Coumadin therapy Stress Ulcer: no indication for prophylaxis Code Status: addressed: full code Disposition: DC to home when medically stable [facility] was viewed during this stay GABRIEL Frost OR OFFICE SUPPORT ASSISTANT SOSA Associated attestation - Basil Redman MD - 02/15/2020 7:52 PM CSTI have independently seen and evaluated this patient. I agree with the note below including physicalexam and plan. In summary, patient is admitted for HEATHER 2/2 dehydration and ostomy leak. Surgery on board s/p wound-vac exchange at bedside and awaiting ostomy supplies. Increased warfarin to 3 mg for mechanical AV target INR 2-3. Awaiting urine cx. Rest of plan per below. James Avery MD - 02/15/2020 12:25 PM CST GENERAL SURGERY DAILY PROGRESS NOTE Patient Name: Jorge A Sherman Date of : 1940 Date: 02/15/2020 24 Hour Events: - No acute events overnight - Afebrile, VS WNL - Ostomy continues to leak Physical Exam: Vital Signs Temp: [36.7 C (98 F)-37.1 C (98.8 F)] Pulse: [90-99] Resp: [18-20] BP: (100-121)/(41-61) MAP (mmHg): [59-76] Intake/Output Intake/Output Summary (Last 24 hours) at 02/15/2020 1225 Last data filed at 02/15/2020 0713 Gross per 24 hour Intake 710 ml Output Net 710 ml General: alert and oriented in no apparent distress Head: normocephalic, atraumatic Eyes: extraocular movements intact; no scleral icterus CV: hemodynamically stable Resp: unlabored, no increased work of breathing, equal bilateral chest rise Gi: abdomen soft, nondistended, tender to palpation in RLQ around ileostomy due to skin breakdown and maceration. Ileostomy mucosa pink and healthy, productive of green fluid. Midline abdominal wound with vac in place holding suction and no surrounding cellulitis. LLQ ecchymosis noted Extremities/Musculoskeletal: moves extremities well, no edema or cyanosis Labs: I independently reviewed the patient's labs. CBC WBC (10*3/L) Date Value 02/15/2020 11.92 (H) RBC (10*6/L) Date Value 02/15/2020 3.12 (L) PLT (10*3/L) Date Value 02/15/2020 459 (H) HGB (g/dL) Date Value 02/15/2020 8.9 (L) HCT (%) Date Value 02/15/2020 26.8 (L) BMP NA (mmol/L) Date Value 02/15/2020 128 (L) K (mmol/L) Date Value 02/15/2020 4.7 CALCIUM (mg/dL) Date Value 02/15/2020 9.1 CL (mmol/L) Date Value 02/15/2020 98 BUN (mg/dL) Date Value 02/15/2020 26 (H) CREATININE (mg/dL) Date Value 02/15/2020 1.28 (H) GLUCOSE (mg/dL) Date Value 02/15/2020 93 CO2 TOTAL (mmol/L) Date Value 02/15/2020 21 (L) Hepatic Function Panel ALBUMIN (g/dL) Date Value 02/14/2020 3.0 (L) T PROTEIN (g/dL) Date Value 02/14/2020 6.7 TOTAL BILI (mg/dL) Date Value 02/14/2020 0.8 BILI UNCON (mg/dL) Date Value 02/11/2020 0.7 BILI CONJ (mg/dL) Date Value 02/11/2020 0.0 ALT(SGPT) (U/L) Date Value 07/12/2018 25 ALTv (U/L) Date Value 02/14/2020 31 AST(SGOT) (U/L) Date Value 02/14/2020 45 (H) ALK PHOS (U/L) Date Value 02/14/2020 163 (H) Radiology: No new images Assessment: Jorge A Sherman is a 79 year old female with PSH significant for recent CABG and AVR in 11/2019 complicated postoperatively by bowel ischemia requiring extended right hemicolectomy and end ileostomy creation (confirmed by op report from [facility], done by Dr. Higgins) admitted for malaise and HEATHER. Found to have intraabdominal fluid collection on CT that is small and unchanged from priorscan. After review with radiologist, unlikely to benefit from drainage procedure. Changed ostomy yesterday with new supplies but continued to leak. Will attempt today with additional supplies received.Otherwise doing well, tolerating diet and no fevers. Wound vac continues to hold suction Plan: 1. Changed ostomy at bedside with new supplies- Added moldable ring around ostomy, along with no sting prep, ostomy powder, and one piece ostomy bag 2. Instructions for wound care provided in nursing orders. Only soap and water to be used on skin. If ostomy bag leaks, entire device needs to be changed. Reinforcement of bag or placement of towels tocatch leakage does not work 3. Add imodium to slow ostomy output. Continue psyllium for stool bulking. 4. Wound vac last changed 02/13/19 Patient seen with faculty Dr. Enrique Avery MD General Surgery PGY-2 OR OFFICE SUPPORT ASSISTANT SOSA Associated attestation - Apryl Nunez MD - 02/15/2020 5:05 PM CSTAttending Attestation: I personally evaluated and examined the patient on 02/15/[address] Avery's progress note as written. I actively participated in the decision-making process. Please see the resident's note foradditional details. Apryl Nunez M.D. 02/15/2020 17:04Nivia Garcia, PT - 02/15/2020 11:38 AM SENIOR OFFICE SUPPORT ASSISTANT SOSA 02/15/2020 11:39 AM Physical Therapy Note: PT consult received, patient's chart reviewed in anticipation of evaluation. However the patient ostomy still leaking. PT spoke to the Hospitalist and advised to hold until ostomy will be fixed. PT will hold until medically appropriate to participate. Nivia Garcia,PT [place] License: [id number] uzette Chu FNP - 02/14/2020 5:39 PM CST [facility] Hospitalist Progress Note SUBJECTIVE: Patient complains of pain at colostomy site where there is skin breakdown and maceration from ostomyleakage. CURRENT MEDICATIONS - reviewed. Current Facility-Administered Medications Medication Dose Route Frequency Last Rate Last Admin warfarin (COUMADIN) tablet 3 mg 3 mg Oral DAILY AT 1700 3 mg at 02/14/20 1738 psyllium (METAMUCIL FIBER SINGLES) 3.4 gram packet 1 Packet 1 Packet Oral QID 1 Packet at 02/14/20 1738 acetaminophen (TYLENOL) tablet 650 mg 650 mg Oral Q6HPRN aspirin chewable tablet 81 mg 81 mg Oral DAILY 81 mg at 02/14/20 0850 atorvastatin (LIPITOR) tablet 40 mg 40 mg Oral QHS 40 mg at 02/14/20 0024 collagenase (SANTYL) ointment Topical (Apply To Affected Areas) DAILY Given at 02/14/20 0901 dextrose 50 % in water (D50W) injection 25 mL 25 mL Slow IV Push PRN ferrous sulfate tablet 325 mg 325 mg Oral QPM 325 mg at 02/14/20 1738 glucagon (GLUCAGEN DIAGNOSTIC KIT) injection 1 mg 1 mg Intramuscular PRN levothyroxine (SYNTHROID) tablet 125 mcg 125 mcg Oral QAM-0600 125 mcg at 02/14/20 0531 mirtazapine (REMERON) tablet 15 mg 15 mg Oral QHS 15 mg at 02/14/20 0024 omeprazole (PRILOSEC) capsule 20 mg 20 mg Oral DAILY 20 mg at 02/14/20 0850 ondansetron (ZOFRAN (PF)) injection 4 mg 4 mg Slow IV Push Q6HPRN 4 mg at 02/14/20 1018 Sliding Scale Insulin-Regular + Fsbg Testing Subcutaneous AC Stopped at 02/13/20 1630 sodium bicarbonate (ANTACID (SODIUM BICARBONATE)) tablet 650 mg 650 mg Oral DAILY 650 mg at 02/14/20 0850 PHYSICAL EXAM: BP 118/61 (BP Location: Right arm, Patient Position: Supine) | Pulse 99 | Temp 37.1 C (98.8 F)(Temporal Artery) | Resp 18 | Ht 1.473 m (4' 10") | Wt 51 kg (112 lb 6.4 oz) | SpO2 99% | BMI 23.49 kg/m General: alert and oriented in no apparent distress Head: normocephalic, atraumatic Eyes: extraocular movements intact; no scleral icterus CV: hemodynamically stable Resp: unlabored, no increased work of breathing, equal bilateral chest rise Gi: abdomen soft, nondistended, tender to palpation in RLQ around ileostomy due to skin breakdown and maceration. Ileostomy mucosa pink and healthy, productive of green fluid. Midline abdominal wound with vac in place holding suction and no surrounding cellulitis. LLQ ecchymosis noted Extremities/Musculoskeletal: moves extremities well, no edema or cyanosis LABS/IMAGING - reviewed, pertinent results as below: CBC BMP PT/INR WBC (10*3/L) Date Value 02/14/2020 10.73 NA (mmol/L) Date Value 02/14/2020 131 (L) No results found for: PT RBC (10*6/L) Date Value 02/14/2020 3.45 (L) K (mmol/L) Date Value 02/14/2020 4.7 INR (no units) Date Value 02/14/2020 2.0 PLT (10*3/L) Date Value 02/14/2020 396 (H) CALCIUM (mg/dL) Date Value 02/14/2020 8.5 (L) HGB (g/dL) Date Value 02/14/2020 9.6 (L) CL (mmol/L) Date Value 02/14/2020 102 aPTT HCT (%) Date Value 02/14/2020 29.8 (L) BUN (mg/dL) Date Value 02/14/2020 24 (H) APTT Patient (Seconds) Date Value 02/06/2020 28 CREATININE (mg/dL) Date Value 02/14/2020 1.03 IMAGING- Hospital Encounter on 02/11/20 CT ABDOMEN PELVIS WO CONTRAST Narrative Ordering physician: NIVIA TERAN Indication: Elevated liver enzymes and lipase, decreased urine output COMPARISON: CT the abdomen and pelvis dated 02/05/2020 TECHNIQUE: Axial images of the abdomen and pelvis were performed without the administration of intravenous contrast material. Images were reformatted in the coronal and sagittal plane. CT scan was performed according to ALARA (as low as reasonably achievable) policy. FINDINGS: The lung bases are clear. The patient is status post median sternotomy. There is prominent mitral valve calcification. The patient is status post cholecystectomy. The noncontrast appearance of the liver, spleen, adrenal glands and pancreas is within normal limits. The kidneys are normal in appearance bilaterally without hydronephrosis or urinary system calculus. There is atherosclerotic calcification of the aorta without significant aneurysmal dilatation. There are small foci of air in the urinary bladder, consistent with recent instrumentation. 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 There is redemonstration of an extraluminal collection of air and fluid subjacent to the right rectus sheath, measuring 4.1 x 2.7 cm (series 2, image 74). The patient is status post subtotal colectomy, with the descending and sigmoid colon remaining in situ.. Bone windows through the abdomen and pelvis demonstrate no osseous destructive lesion. Impression Ileostomy exiting the right pelvic wall. There is redemonstration of an air and fluid collection subjacent to the right rectus sheath, measuring approximately 4.1 x 2.7 cm, similar to prior study of 02/05/2020. No evidence for bowel obstruction. 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 RL: [id number] AFC: [id number] Chest 1 View Narrative EXAM: XR CHEST 1 VW HISTORY: chest pain COMPARISON: 02/03/2020 FINDINGS: Lines/Tubes: None. Lungs: The lungs are clear. No pleural effusion or pneumothorax is identified. Heart/Mediastinum: The cardiomediastinal silhouette is mild enlarged. Status post CABG and aortic valve prosthesis. Bones: No acute osseous abnormality is seen. Medial sternotomy. Mild spondylosis. Surgical clips project over the epigastrium and gallbladder region. Impression 1. Cardiomegaly appears stable. ASSESSMENT/PLAN Jorge A Sherman is a 79 year old female with PMH as listed above, admitted to the hospital with: 1. HEATHER 2/2 dehydration and ostomy leakage Continue sodium bicarb 650 mg QD Renal dose all meds Renal Diet Strict I/O 2. Ostomy leakage New ostomy bag placed this morning Wound Care Consult for daily wound care at ostomy site Surgical consult 3. UTI/Cystitis Continue IV Ceftriaxone 1 gm QD 4. HTN Currently hypotensive and bp meds are being held at this time 5. Hypothyroidism TSH 56.10 Continue Levothyroxin 125 mcg QD 6. Mechanical AO Valve Continue Warfarin and increased to 3mg 0n 02/14/2020 Daily INR Goal INR 2-3 7. Intra-abdominal fluid collection Surgical Consult Awaiting OSH records 8. Stage 2 Ulcer to Coccyx POA Daily dressing change Frequent repositioning Prophylaxis: DVT- Coumadin therapy Stress Ulcer: no indication for prophylaxis Code Status: addressed: full code Disposition: DC to home when medically stable [facility] was viewed during this stay GABRIEL Frost OR OFFICE SUPPORT ASSISTANT SOSA Associated attestation - Basil Redman MD - 02/14/2020 7:06 PM CSTI have independently seen and evaluated this patient. I agree with the note below including physicalexam and plan. In summary, patient is admitted for HEATHER 2/2 dehydration and ostomy leak. Surgery on board s/p wound-vac exchange at bedside and awaiting ostomy supplies. Increase warfarin to 3 mg for mechanical AV. Rest of plan per below. James Avery MD - 02/14/2020 2:25 PM CST GENERAL SURGERY DAILY PROGRESS NOTE Patient Name: Jorge A Sherman Date of : 1940 Date: 02/14/2020 24 Hour Events: - No acute events overnight - Afebrile, VS WNL - WBC normalized to 10 - Ostomy continues to leak Physical Exam: Vital Signs Temp: [36.6 C (97.9 F)-37.1 C (98.8 F)] Pulse: [94-107] Resp: [18] BP: (96-121)/(46-52) MAP (mmHg): [66-68] Intake/Output Intake/Output Summary (Last 24 hours) at 02/14/2020 1425 Last data filed at 02/14/2020 1114 Gross per 24 hour Intake 243 ml Output 300 ml Net -57 ml General: alert and oriented in no apparent distress Head: normocephalic, atraumatic Eyes: extraocular movements intact; no scleral icterus CV: hemodynamically stable Resp: unlabored, no increased work of breathing, equal bilateral chest rise Gi: abdomen soft, nondistended, tender to palpation in RLQ around ileostomy due to skin breakdown and maceration. Ileostomy mucosa pink and healthy, productive of green fluid. Midline abdominal wound with vac in place holding suction and no surrounding cellulitis. LLQ ecchymosis noted Extremities/Musculoskeletal: moves extremities well, no edema or cyanosis Labs: I independently reviewed the patient's labs. CBC WBC (10*3/L) Date Value 02/14/2020 10.73 RBC (10*6/L) Date Value 02/14/2020 3.45 (L) PLT (10*3/L) Date Value 02/14/2020 396 (H) HGB (g/dL) Date Value 02/14/2020 9.6 (L) HCT (%) Date Value 02/14/2020 29.8 (L) BMP NA (mmol/L) Date Value 02/14/2020 131 (L) K (mmol/L) Date Value 02/14/2020 4.7 CALCIUM (mg/dL) Date Value 02/14/2020 8.5 (L) CL (mmol/L) Date Value 02/14/2020 102 BUN (mg/dL) Date Value 02/14/2020 24 (H) CREATININE (mg/dL) Date Value 02/14/2020 1.03 GLUCOSE (mg/dL) Date Value 02/14/2020 85 CO2 TOTAL (mmol/L) Date Value 02/14/2020 19 (L) Hepatic Function Panel ALBUMIN (g/dL) Date Value 02/14/2020 3.0 (L) T PROTEIN (g/dL) Date Value 02/14/2020 6.7 TOTAL BILI (mg/dL) Date Value 02/14/2020 0.8 BILI UNCON (mg/dL) Date Value 02/11/2020 0.7 BILI CONJ (mg/dL) Date Value 02/11/2020 0.0 ALT(SGPT) (U/L) Date Value 07/12/2018 25 ALTv (U/L) Date Value 02/14/2020 31 AST(SGOT) (U/L) Date Value 02/14/2020 45 (H) ALK PHOS (U/L) Date Value 02/14/2020 163 (H) Radiology: No new images Assessment: Jorge A Sherman is a 79 year old female with PSH significant for recent CABG and AVR in 11/2019 complicated postoperatively by bowel ischemia requiring extended right hemicolectomy and end ileostomy creation (confirmed by op report from [facility], done by Dr. Higgins). After discussion with ostomy nurse Eleanor Renteria, obtained new supplies to assist with ostomy leakage. Patient clinically continues to appear well, tolerating PO intake and normal VS. WBC normalized today. Primary issue remains leaking ileostomy and associated skin irritation. Plan: 1. Changed ostomy at bedside with new supplies- No sting skin prep, ostomy paste and single piece ostomy bag 2. Changed wound vac at bedside- granulation tissue visible in wound bed without signs of infection 3. Continue psyllium for stool bulking. If no improvement may consider Imodium Patient seen with faculty Dr. Enrique Souza-Cornelius Avery MD General Surgery PGY-2 OR OFFICE SUPPORT ASSISTANT SOSA Associated attestation - Apryl Nunez MD - 02/14/2020 4:20 PM CSTAttending Attestation: I personally evaluated and examined the patient on 02/14/[address] Avery's progress note as written. I actively participated in the decision-making process. Please see the resident's note foradditional details. Apryl Nunez M.D. 02/14/2020 16:20WiShannan Arteaga, PT - 02/14/2020 11:04 AM CST02/14/2020 PT attempted evaluation today, however, per store detective site is still leaking and currently waiting for it to be repaired to prevent continued leaking, PT will return when appropriate to perform evaluation. Thank you. Shannan Dinero, PT [place] PT License [id number] [facility] Department (phone) (fax) OR OFFICE SUPPORT ASSISTANT SOSA Queta Valdez FNP - 02/13/2020 4:42 PM CST [facility] Hospitalist Progress Note SUBJECTIVE: Patient seen at bedside with present, per patient is still leaking from her ileostomy bag he reports this is her third hospitalization for the same problem. CURRENT MEDICATIONS - reviewed. Current Facility-Administered Medications Medication Dose Route Frequency Last Rate Last Admin acetaminophen (TYLENOL) tablet 650 mg 650 mg Oral Q6HPRN aspirin chewable tablet 81 mg 81 mg Oral DAILY 81 mg at 02/13/20 1123 atorvastatin (LIPITOR) tablet 40 mg 40 mg Oral QHS 40 mg at 02/12/20 2228 collagenase (SANTYL) ointment Topical (Apply To Affected Areas) DAILY Given at 02/13/20 1155 dextrose 50 % in water (D50W) injection 25 mL 25 mL Slow IV Push PRN ferrous sulfate tablet 325 mg 325 mg Oral QPM 325 mg at 02/12/20 1655 glucagon (GLUCAGEN DIAGNOSTIC KIT) injection 1 mg 1 mg Intramuscular PRN levothyroxine (SYNTHROID) tablet 125 mcg 125 mcg Oral QAM-0600 125 mcg at 02/13/20 0521 mirtazapine (REMERON) tablet 15 mg 15 mg Oral QHS 15 mg at 02/12/20 2228 omeprazole (PRILOSEC) capsule 20 mg 20 mg Oral DAILY 20 mg at 02/13/20 1123 ondansetron (ZOFRAN (PF)) injection 4 mg 4 mg Slow IV Push Q6HPRN Sliding Scale Insulin-Regular + Fsbg Testing Subcutaneous AC 2 Units at 02/13/20 1211 sodium bicarbonate (ANTACID (SODIUM BICARBONATE)) tablet 650 mg 650 mg Oral DAILY 650 mg at 02/13/20 1123 warfarin (COUMADIN) tablet 2 mg 2 mg Oral DAILY AT 1700 2 mg at 02/12/20 1656 PHYSICAL EXAM: BP 121/51 | Pulse 94 | Temp 37.1 C (98.7 F) | Resp 18 | Ht 1.473 m (4' 10") | Wt 54.9 kg (121 lb) | SpO2 99% | BMI 25.29 kg/m General: NAD HEENT: Anicteric sclerae, NCAT Lungs: CTAB Cardio: RRR, strong symmetric pulses Abdomen: Soft, right upper quadrant ileostomy skin, irritated Genitourinary: No lesions Musculoskeletal: Normal muscle mass, no synovitis Skin: No rash or lesions, normal turgot Neuro: AAO, no focal deficits Psych: Normal affect LABS/IMAGING - reviewed, pertinent results as below: CBC BMP PT/INR WBC (10*3/L) Date Value 02/13/2020 13.63 (H) NA (mmol/L) Date Value 02/13/2020 133 (L) No results found for: PT RBC (10*6/L) Date Value 02/13/2020 2.79 (L) K (mmol/L) Date Value 02/13/2020 4.5 INR (no units) Date Value 02/13/2020 2.1 PLT (10*3/L) Date Value 02/13/2020 341 CALCIUM (mg/dL) Date Value 02/13/2020 8.3 (L) HGB (g/dL) Date Value 02/13/2020 7.9 (L) CL (mmol/L) Date Value 02/13/2020 103 aPTT HCT (%) Date Value 02/13/2020 24.0 (L) BUN (mg/dL) Date Value 02/13/2020 24 (H) APTT Patient (Seconds) Date Value 02/06/2020 28 CREATININE (mg/dL) Date Value 02/13/2020 0.98 IMAGING- Hospital Encounter on 02/11/20 CT ABDOMEN PELVIS WO CONTRAST Narrative Ordering physician: NIVIA TERAN Indication: Elevated liver enzymes and lipase, decreased urine output COMPARISON: CT the abdomen and pelvis dated 02/05/2020 TECHNIQUE: Axial images of the abdomen and pelvis were performed without the administration of intravenous contrast material. Images were reformatted in the coronal and sagittal plane. CT scan was performed according to ALARA (as low as reasonably achievable) policy. FINDINGS: The lung bases are clear. The patient is status post median sternotomy. There is prominent mitral valve calcification. The patient is status post cholecystectomy. The noncontrast appearance of the liver, spleen, adrenal glands and pancreas is within normal limits. The kidneys are normal in appearance bilaterally without hydronephrosis or urinary system calculus. There is atherosclerotic calcification of the aorta without significant aneurysmal dilatation. There are small foci of air in the urinary bladder, consistent with recent instrumentation. 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 There is redemonstration of an extraluminal collection of air and fluid subjacent to the right rectus sheath, measuring 4.1 x 2.7 cm (series 2, image 74). The patient is status post subtotal colectomy, with the descending and sigmoid colon remaining in situ.. Bone windows through the abdomen and pelvis demonstrate no osseous destructive lesion. Impression Ileostomy exiting the right pelvic wall. There is redemonstration of an air and fluid collection subjacent to the right rectus sheath, measuring approximately 4.1 x 2.7 cm, similar to prior study of 02/05/2020. No evidence for bowel obstruction. 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 RL: [id number] AF: [id number] Chest 1 View Narrative EXAM: XR CHEST 1 VW HISTORY: chest pain COMPARISON: 02/03/2020 FINDINGS: Lines/Tubes: None. Lungs: The lungs are clear. No pleural effusion or pneumothorax is identified. Heart/Mediastinum: The cardiomediastinal silhouette is mild enlarged. Status post CABG and aortic valve prosthesis. Bones: No acute osseous abnormality is seen. Medial sternotomy. Mild spondylosis. Surgical clips project over the epigastrium and gallbladder region. Impression 1. Cardiomegaly appears stable. ASSESSMENT/PLAN Jorge A Sherman is a 79 year old female with PMH as listed above, admitted to the hospital with: 1. Acute renal failure: likely secondary to acute cystitis versus dehydration Hyponatremia -- sodium bicarbonate 650 daily -- Trend BMP --Renal dose may avoid nephrotoxic meds --Strict intake and output 2. Acute cystitis: -- IV ceftriaxone day 2 -- Urine culture will hold IV antibiotics no growth 3. HTN: on the hypotensive side. --Continue holding antihypertensive agent 4. Hypothyroidism: tsh 01/2020 56.10 --Levothyroxine 125 g daily 5.. Mechanical aortic valve: on anticoagulation. INR therapeutic at this time --Stop weight based Lovenox for now while investigation of intra-abdominal fluid collection --Continue warfarin 2 mg -- Daily INRs to -- keep INR 2 and 3 6. Intra-abdominal fluid collection: -- Consult surgery defer to note --Per surgical awaiting OSH records 7. Leaking Ileostomy Consult wound care 8. Stage 2 ulcer to coccyx prior to admission change drsg daily Prophylaxis: DVT-Coumadin Stress Ulcer: no indication for prophylaxis Code Status: addressed: Full code Disposition: Home at discharge [facility] was viewed during this stay GABRIEL Bryant OR OFFICE SUPPORT ASSISTANT SOSA Associated attestation - Basil Redman MD - 02/13/2020 5:38 PM CSTI have independently seen and evaluated this patient. I agree with the note below including physicalexam and plan. In summary, patient is admitted for HEATHER 2/2 dehydration and ostomy leak. Surgery on board s/p wound-vac exchange at bedside on 02/11 and awaiting ostomy supplies. Continue warfarin for mechanical AV. Discontinue lovenox today as INR therapeutic. Rest of plan per below. James Avery MD - 02/13/2020 4:33 PM CST GENERAL SURGERY DAILY PROGRESS NOTE Patient Name: Jorge A Sherman Date of : 1940 Date: 02/13/2020 24 Hour Events: No acute events overnight Afebrile, VS WNL Ostomy leaking overnight, worsening skin breakdown due to contact with enteric contents WBC 13 today down from 14 Obtained OSH records, patient had extended right hemicolectomy and end ileostomy creation for ischemic bowel after CABG and valve replacement Physical Exam: Vital Signs Temp: [36.6 C (97.8 F)-37.1 C (98.7 F)] Pulse: [90-104] Resp: [18] BP: (98-125)/(41-74) MAP (mmHg): [59] Intake/Output No intake or output data in the 24 hours ending 02/13/20 1633 General: alert and oriented in no apparent distress Head: normocephalic, atraumatic Eyes: extraocular movements intact; no scleral icterus CV: hemodynamically stable Resp: unlabored, no increased work of breathing, equal bilateral chest rise Gi: abdomen soft, nondistended, tender to palpation in RLQ around ileostomy due to skin breakdown and maceration. Ileostomy mucosa pink and healthy, productive of green fluid. Midline abdominal wound with vac in place holding suction and no surrounding cellulitis. LLQ ecchymosis noted Extremities/Musculoskeletal: moves extremities well, no edema or cyanosis Labs: I independently reviewed the patient's labs. CBC WBC (10*3/L) Date Value 02/13/2020 13.63 (H) RBC (10*6/L) Date Value 02/13/2020 2.79 (L) PLT (10*3/L) Date Value 02/13/2020 341 HGB (g/dL) Date Value 02/13/2020 7.9 (L) HCT (%) Date Value 02/13/2020 24.0 (L) BMP NA (mmol/L) Date Value 02/13/2020 133 (L) K (mmol/L) Date Value 02/13/2020 4.5 CALCIUM (mg/dL) Date Value 02/13/2020 8.3 (L) CL (mmol/L) Date Value 02/13/2020 103 BUN (mg/dL) Date Value 02/13/2020 24 (H) CREATININE (mg/dL) Date Value 02/13/2020 0.98 GLUCOSE (mg/dL) Date Value 02/13/2020 76 CO2 TOTAL (mmol/L) Date Value 02/13/2020 19 (L) Hepatic Function Panel ALBUMIN (g/dL) Date Value 02/13/2020 2.9 (L) T PROTEIN (g/dL) Date Value 02/13/2020 6.4 TOTAL BILI (mg/dL) Date Value 02/13/2020 0.7 BILI UNCON (mg/dL) Date Value 02/11/2020 0.7 BILI CONJ (mg/dL) Date Value 02/11/2020 0.0 ALT(SGPT) (U/L) Date Value 07/12/2018 25 ALTv (U/L) Date Value 02/13/2020 30 AST(SGOT) (U/L) Date Value 02/13/2020 43 (H) ALK PHOS (U/L) Date Value 02/13/2020 153 (H) Radiology: No new images Assessment: Jorge A Sherman is a 79 year old female with PSH significant for recent CABG and AVR in 11/2019 complicated postoperatively by bowel ischemia requiring extended right hemicolectomy and end ileostomy creation (confirmed by op report from [facility], done by Dr. Higgins). Discussed CTAP with faculty radiologist yesterday, who did not recommend further imaging with contrast. Right abdominalfluid collection likely represents small abscess that may be amenable to drainage or aspiration as outpatient (IR not available). Currently patient remains stable and clinically appears stable. Main issue is leaking ostomy that is causing skin breakdown. Attempted to repair yesterday at bedside but ostomy leaked overnight again. Plan: 1. Discussed ostomy care and recommended supplies with ostomy nurse Eleanor Renteria with [facility] 2. Continue antibiotics 3. Keep wound vac to suction, will change in 1-2 days Harley-Cornelius Avery MD General Surgery PGY-2 OR OFFICE SUPPORT ASSISTANT SOSA Associated attestation - Apryl Nunez MD - 02/13/2020 5:13 PM CSTAttending Attestation: I personally evaluated and examined the patient on 02/13/[address] Avery's progress note as written. I actively participated in the decision-making process. Please see the resident's note foradditional details. Patient doing well. Ileostomy leaking, bag has been changes twice. Julia-ostomy skin irritated. Wound vac with good seal, serosanguineous drainage in canister. Discussed ostomy care with Eleanor Hill, WCN, request for supplies to be ordered submitted to central supply. Continue PPI, add Metamucil. Apryl Nunez M.D. 02/13/2020 17:05Nivia Garcia, PT - 02/13/2020 11:19 AM CSTPT attempted to see patient today and unable to perform PT evaluation due to patient colostomy is leaking and need to be change. Patient nurse was notified. Nivia Garcia,PT Tx License: [id number] [email or web address] Queta Dotyita, HEAVY EQUIPMENT PLUMBING SUPERVISOR - 02/12/2020 6:06 PM CST [facility] Hospitalist Progress Note SUBJECTIVE: Patient sitting up to chair complaining of pain to coccyx area, offloading with pillow to that area. CURRENT MEDICATIONS - reviewed. Current Facility-Administered Medications Medication Dose Route Frequency Last Rate Last Admin acetaminophen (TYLENOL) tablet 650 mg 650 mg Oral Q6HPRN aspirin chewable tablet 81 mg 81 mg Oral DAILY 81 mg at 02/12/20 0855 atorvastatin (LIPITOR) tablet 40 mg 40 mg Oral QHS collagenase (SANTYL) ointment Topical (Apply To Affected Areas) DAILY Applied at 02/12/20 1657 dextrose 50 % in water (D50W) injection 25 mL 25 mL Slow IV Push PRN enoxaparin (LOVENOX) injection 50 mg 1 mg/kg Subcutaneous Q12H 50 mg at 02/12/20 0855 ferrous sulfate tablet 325 mg 325 mg Oral QPM 325 mg at 02/12/20 1655 glucagon (GLUCAGEN DIAGNOSTIC KIT) injection 1 mg 1 mg Intramuscular PRN [START ON 02/13/2020] levothyroxine (SYNTHROID) tablet 125 mcg 125 mcg Oral QAM-0600 mirtazapine (REMERON) tablet 15 mg 15 mg Oral QHS omeprazole (PRILOSEC) capsule 20 mg 20 mg Oral DAILY 20 mg at 02/12/20 0855 ondansetron (ZOFRAN (PF)) injection 4 mg 4 mg Slow IV Push Q6HPRN Sliding Scale Insulin-Regular + Fsbg Testing Subcutaneous AC Stopped at 02/12/20 0730 sodium bicarbonate (ANTACID (SODIUM BICARBONATE)) tablet 650 mg 650 mg Oral DAILY 650 mg at 02/12/20 0855 warfarin (COUMADIN) tablet 2 mg 2 mg Oral DAILY AT 1700 2 mg at 02/12/20 1656 PHYSICAL EXAM: BP 102/41 (BP Location: Left arm, Patient Position: Supine) | Pulse 90 | Temp 36.7 C (98 F) (Temporal Artery) | Resp 18 | Ht 1.473 m (4' 10") | Wt 54.9 kg (121 lb) | SpO2 99% | BMI 25.29 kg/m General: NAD HEENT: Anicteric sclerae, NCAT Lungs: CTAB Cardio: RRR, strong symmetric pulses Abdomen: Soft, RQ ileostomy left quad wound with vac in place minimal drainage Genitourinary: No lesions Musculoskeletal: Normal muscle mass, no synovitis Skin: No rash or lesions, normal turgot Neuro: AAOx3, no focal deficits Psych: Normal affect LABS/IMAGING - reviewed, pertinent results as below: CBC BMP PT/INR WBC (10*3/L) Date Value 02/11/2020 14.75 (H) NA (mmol/L) Date Value 02/12/2020 128 (L) No results found for: PT RBC (10*6/L) Date Value 02/11/2020 3.33 (L) K (mmol/L) Date Value 02/12/2020 4.2 INR (no units) Date Value 02/11/2020 1.6 PLT (10*3/L) Date Value 02/11/2020 430 (H) CALCIUM (mg/dL) Date Value 02/12/2020 7.8 (L) HGB (g/dL) Date Value 02/11/2020 9.3 (L) CL (mmol/L) Date Value 02/12/2020 102 aPTT HCT (%) Date Value 02/11/2020 28.7 (L) BUN (mg/dL) Date Value 02/12/2020 29 (H) APTT Patient (Seconds) Date Value 02/06/2020 28 CREATININE (mg/dL) Date Value 02/12/2020 1.18 (H) IMAGING- Hospital Encounter on 02/11/20 CT ABDOMEN PELVIS WO CONTRAST Narrative Ordering physician: INVIA TERAN Indication: Elevated liver enzymes and lipase, decreased urine output COMPARISON: CT the abdomen and pelvis dated 02/05/2020 TECHNIQUE: Axial images of the abdomen and pelvis were performed without the administration of intravenous contrast material. Images were reformatted in the coronal and sagittal plane. CT scan was performed according to ALARA (as low as reasonably achievable) policy. FINDINGS: The lung bases are clear. The patient is status post median sternotomy. There is prominent mitral valve calcification. The patient is status post cholecystectomy. The noncontrast appearance of the liver, spleen, adrenal glands and pancreas is within normal limits. The kidneys are normal in appearance bilaterally without hydronephrosis or urinary system calculus. There is atherosclerotic calcification of the aorta without significant aneurysmal dilatation. There are small foci of air in the urinary bladder, consistent with recent instrumentation. 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 There is redemonstration of an extraluminal collection of air and fluid subjacent to the right rectus sheath, measuring 4.1 x 2.7 cm (series 2, image 74). The patient is status post subtotal colectomy, with the descending and sigmoid colon remaining in situ.. Bone windows through the abdomen and pelvis demonstrate no osseous destructive lesion. Impression Ileostomy exiting the right pelvic wall. There is redemonstration of an air and fluid collection subjacent to the right rectus sheath, measuring approximately 4.1 x 2.7 cm, similar to prior study of 02/05/2020. No evidence for bowel obstruction. 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 RL: [id number] AF: [id number] Chest 1 View Narrative EXAM: XR CHEST 1 VW HISTORY: chest pain COMPARISON: 02/03/2020 FINDINGS: Lines/Tubes: None. Lungs: The lungs are clear. No pleural effusion or pneumothorax is identified. Heart/Mediastinum: The cardiomediastinal silhouette is mild enlarged. Status post CABG and aortic valve prosthesis. Bones: No acute osseous abnormality is seen. Medial sternotomy. Mild spondylosis. Surgical clips project over the epigastrium and gallbladder region. Impression 1. Cardiomegaly appears stable. ASSESSMENT/PLAN Jorge A Sherman is a 79 year old female with PMH as listed above, admitted to the hospital with: 1. Acute renal failure: likely secondary to acute cystitis versus dehydration Hyponatremia -- Pending urine culture results -- Trend BMP --Renal dose may avoid nephrotoxic meds --Strict intake and output 2. Acute cystitis: -- IV ceftriaxone date 2 -- Urine culture is pending 3. HTN: on the hypotensive side. --Continue holding antihypertensive agent - BP 100/41 4. Hypothyroidism: tsh 01/2020 56.10 --Levothyroxine 125 g daily 5.. Mechanical aortic valve: on anticoagulation. Subtherapeutic INR -- Will start weight based Lovenox for now while investigation of intra- abdominal fluid collection --Continue warfarin 2 mg and Lovenox to bridge -- Daily INRs to -- keep INR 2 and 3 6. Intra-abdominal fluid collection: -- Consult surgery defer to note --Per surgical awaiting OSH records 7. Leaking Ileostomy Consult wound care 8. Stage 2 ulcer to coccyx prior to admission change drsg daily Prophylaxis: DVT-coumadin Stress Ulcer: no indication for prophylaxis Code Status: addressed: Disposition: home, consult physical therapy [place] ACCOUNTS PAYABLE SUPERVISOR was viewed during this stay GABRIEL Bryant OR OFFICE SUPPORT ASSISTANT SOSA Associated attestation - Basil Redman MD - 02/13/2020 5:48 PM CSTI have independently seen and evaluated this patient. I agree with the note below including physicalexam and plan. In summary, patient is admitted for HEATHER 2/2 dehydration and ostomy leak. Continue IVFand f/u surgery recs. On lovenox bridge to coumadin for mechanical AV. Rest of plan per below. Jason De RN - 02/12/2020 4:22 PM CSTI,BASIL REDMAN MD, after reviewing this case with the Cost Estimator, I concur this case is appropriate for inpatient admission. The change to inpatient admission is based on the level of care this patient is receiving, medical necessity, risks associated and the expected duration of stay. The inpatient admission order has been entered. Dequan De RN BSN Utilization Management P [phone] F [phone] OR OFFICE SUPPORT ASSISTANT SOSA Associated attestation - Basil Redman MD - 02/13/2020 5:48 PM CSTattested Rocio Dorado LBSW - 02/12/2020 4:10 PM CSTSubjective Patient ID: Jorge A Sherman is a 79 year old female. Care Management Social Functional Assessment Patient Name: Jorge A Sherman Age: [age] year old Sex: female Patient's Previous Admission Date at [facility]: 02/04/2020 Current diagnosis and co-morbidities: HEATHER (acute kidney injury);UTI (urinary tract infection) Readmission Questions: Was patient discharged from any acute care hospital within the last 30 days: Yes Social Functional Assessment: Primary language spoken/preferred: Eritrean Mental Status: Alert & Oriented to Person,Place & Time Information given by: Child Name and phone number of person giving information: Lisha Putnam, dtr [phone] Patient's support system: Child;Spouse Name and number of support system: Lisha Putnam, dtr [phone] and Trever Sherman, Primary Merchandise Clerk: Self;Child;Spouse MPOA: Same as support system Living Arrangement: Home Address of living arrangement : [address] [place] [address] Persons living in home: Self;Spouse Barriers to returning home: None Baseline functional status- ambulation: Requires minimal to moderate assistance Functional status-baseline personal care: Requires minimal to moderate assistance Baseline functional status- driving: Dependent Baseline functional status- grocery shopping: Dependent Functional status-baseline housekeeping: Dependent Functional status-baseline meal prep: Dependent Current functional status same as prior: Yes Do you have a PCP?: Yes Name of PCP: Dr. Albert Home Health Care Agency: Yes Name of Home Health Agency: [address] [address] () [phone] (F) [phone] Previous or current Home Health Care Agency: Current Provider Services: No DME Company: No Equipment: None Hemodialysis: No Community resources utilized: None Funding Resources: Medicare A & B;Supplement/Secondary Prescription coverage plan: Medicare Part D Pharmacy where meds are filled: Other Other pharmacy: [facility] Anticipated services prior to disharge: Continue Medical Eval Expected mode of discharge transportation: Same as support system Additional Recommendations for DC: Medical clearance, will resume services with [facility] Additional info required for discharge planning: Pending medical evaluation Recommended discharge plan: Home;Update/Resume orders SFA Complete: Social Functional Assessment complete: Yes Alcohol Use Screening (AUDIT-C) How often do you have a drink containing alcohol?: Never SCORE: 0 Did patient elect to have resources provided: No Role of Care Management explained. Any issues or concerns with obtaining/affording your medications at home: no. Are you or your support system able to bead picker medications at discharge: yes. Review of Systems Objective Physical Exam Assessment/Plan Home with family and will resume services with [facility] LISA [facility]ist - Care Management [facility] [phone] [email or web address] OR OFFICE SUPPORT ASSISTANT SOSA documented in this encounter H&P Notes Nivia Teran MD - 02/12/2020 1:07 AM CST MEDICINE ADC ADMIT H&P Date of Service: 02/12/2020 CHIEF COMPLAINT: malaise, nausea/vomiting History of Present Illness 79 year-old female with pmh of hypothyroidism, DM, HLD, HTN, history of bedsore in her tailbone who presents to the ED secondary to back pain that started earlier today. Patient had a recent CABG surgery in November 2019 and intestinal blockage s/p resection with subsequent ostomy and wound vac. Recently discharged from [facility] on 02/03/2020 due to urinary tract infection and sepsis. Upon discharge, patient continue to have decreased oral intake, weakness, dysuria. Family was concerned when patient was noted to have decreased urine output for hours yesterday. Family got concerned that she is retaining urine. +abdominal pain (around ostomy bag) Denies - fever -chills -nausea -vomiting PAST MEDICAL HISTORY Past Medical History: Diagnosis Date Acquired hypothyroidism 02/12/2017 Bashir's palsy left side Diet-controlled diabetes mellitus not on any medication. states she is not diabetic anymore per PCP High cholesterol HTN (hypertension), benign follows with Dr. Anguiano. Other specified hypothyroidism Past Surgical History: Procedure Laterality Date BREAST LUMPECTOMY 07/08/2011 Was benign. COLONOSCOPY N/A 07/28/2017 Surgeon: Kale Lundberg MD; Location: [facility] OR Location HAMMERTOE CORRECTION Left 05/13/2018 Surgeon: Eran Umana DPM; Location: [facility] OR [facility] LEG/ANKLE SURGERY PROC UNLISTED Right 04/21/2013 Right ankle fracture with four screws placed. OTHER 05/05/2007 Eyelid was repaired. OTHER 1997 Knee surgery OTHER 2015 Hemorrhoid surgery RADICAL HYSTERECTOMY TOTAL ABDOM HYSTERECTOMY Family History Problem Relation Age of Onset Depression Mother Depression Sister several sisters. ALLERGIES Allergies Allergen Reactions Morphine Sulfate Hallucinations CANNOT TAKE ANY TYPE OF MORPHINE MEDICATIONS No current facility-administered medications on file prior to encounter. Current Outpatient Medications on File Prior to Encounter Medication Sig Dispense Refill collagenase 250 unit/gram ointment Apply to affected area(s) daily. 30 g 3 levothyroxine 125 mcg tablet Take 1 tablet by mouth every morning for 90 days. 30 tablet 2 omeprazole 20 mg capsule Take 1 capsule by mouth daily for 90 days. 90 capsule 0 sodium hypochlorite 0.025% Soln solution Apply to area(s) 2 (two) times daily for 90 days. 1 L 3 warfarin 1 mg tablet Take 1 tablet by mouth every other day in the evening for 90 days. 45 tablet 0 atorvastatin 40 mg tablet Take 40 mg by mouth at bedtime. ferrous sulfate 325 mg (65 mg iron) tablet Take 325 mg by mouth every evening. metoprolol tartrate 25 mg tablet Take 25 mg by mouth 2 (two) times daily. mirtazapine 15 mg tablet Take 15 mg by mouth at bedtime. sodium bicarbonate 650 mg tablet Take 650 mg by mouth daily. SERTraline 50 mg tablet Take 1 tablet by mouth daily. 90 tablet 3 aspirin 81 mg chewable tablet Take 81 mg by mouth daily. SOCIAL HISTORY Social History Socioeconomic History Marital [...] file Gets together: Not on file Attends orthodoxy service: Not on file Active member of [...] file Social History Narrative Not on file Review of Systems Constitutional: Positive for appetite change (decreased). Negative for chills, diaphoresis, fatigue,fever and unexpected weight change. Activity change: decreased. Eyes: Negative. Respiratory: Negative. Breasts: Negative. Cardiovascular: Negative. Gastrointestinal: Positive for abdominal pain. Negative for abdominal distention, anal bleeding, blood in stool, constipation, diarrhea, nausea, rectal pain and vomiting. Genitourinary: Positive for dysuria. Negative for bladder incontinence, urgency, frequency, hematuria, flank pain, decreased urine volume, vaginal bleeding, vaginal discharge, enuresis, difficulty urinating, genital sores, vaginal pain, menstrual problem, pelvic pain, dyspareunia and nocturia. Musculoskeletal: Positive for back pain. Negative for arthralgias, gait problem, joint swelling and myalgias. Skin: Positive for rash (ostomy area). Negative for color change, pallor and wound. Neurological: Positive for weakness. Negative for dizziness, tremors, seizures, syncope, facial asymmetry, speech difficulty, light-headedness, numbness and headaches. Psychiatric/Behavioral: Negative. Endocrine: Endocrine negative PHYSICAL EXAMINATION Vitals: 02/11/20 2200 02/11/20 2300 02/12/20 0000 02/12/20 0100 BP: 118/53 127/55 108/49 92/51 Pulse: 83 88 89 83 Resp: 19 18 19 16 Temp: TempSrc: SpO2: 100% 100% 99% 99% Weight: Height: Physical Exam Constitutional: She is oriented to person, place, and time. She appears well- developed and well-nourished. No distress. HENT: Head: Normocephalic and atraumatic. Right Ear: External ear normal. Left Ear: External ear normal. Eyes: Pupils are equal, round, and reactive to light. Conjunctivae and EOM are normal. Right eye exhibits no discharge. Left eye exhibits no discharge. No scleral icterus. Neck: Normal range of motion. Cardiovascular: Normal rate and regular rhythm. Pulmonary/Chest: Effort normal. No respiratory distress. She has no rales. She exhibits no tenderness. Abdominal: Soft. She exhibits no distension. There is abdominal tenderness (in the right mid quadrant region). There is no guarding. Ostomy opening in the right mid quadrant region Musculoskeletal: Normal range of motion. General: No edema. Neurological: She is alert and oriented to person, place, and time. Skin: Skin is warm and dry. No rash noted. There is erythema (around the ostomy bag). No pallor. Psychiatric: She has a normal mood and affect. Her behavior is normal. Judgment and thought content normal. LABS - reviewed pertinent labs as below: Reviewed IMAGING - reviewed, pertinent results as below: EXAM: XR CHEST 1 VW HISTORY: chest pain COMPARISON: 02/03/2020 FINDINGS: Lines/Tubes: None. Lungs: The lungs are clear. No pleural effusion or pneumothorax is identified. Heart/Mediastinum: The cardiomediastinal silhouette is mild enlarged. Status post CABG and aortic valve prosthesis. Bones: No acute osseous abnormality is seen. Medial sternotomy. Mild spondylosis. Surgical clips project over the epigastrium and gallbladder region. IMPRESSION 1. Cardiomegaly appears stable. ASSESSMENT/PLAN Jorge A Sherman is a 79 year old female with PMH as listed above, admitted to the hospital with: 1. Acute renal failure: likely secondary to acute cystitis -- Will treat underlying condition 2. Acute cystitis: -- Will continue with antibiotics -- Urine culture is pending 3. HTN: on the hypotensive side. -- Holding antihypertensive agent for now 4. Hypothyroidism: -- Will resume outpatient agent 5.. Mechanical aortic valve: on anticoagulation. Subtherapeutic INR -- Will start weight based Lovenox for now while investigation of intra- abdominal fluid collection 6. Intra-abdominal fluid collection: -- Consult surgery to see if drainage is warranted. Prophylaxis: DVT- enoxaparin Code Status: addressed: FC Estimated LOS: This inpatient admission will likely require greater than or equal to 2 Midnights. Management is not feasible as an outpatient and there is concern for adverse outcomes if not managed in an inpatient setting. Advance care planning discussed for 12 mins with patient at bedside. Surrogate decision maker: Trever Sherman (spouse) - documented in this encounter Procedure Notes James Avery MD - 02/12/2020 8:24 PM CSTProcedure(s): WOUND VAC EXCHANGE (SHX) Pre-Procedure Diagnose(s): Abdominal wound dehiscence, subsequent encounterPost- Procedure Diagnose(s): Abdominal wound dehiscence, subsequent encounterPROCEDURE NOTE Date of Procedure: 02/12/2020 Pre Operative Diagnosis: Midline abdominal wound dehiscence Post Operative Diagnosis: Midline abdominal wound dehiscence Title of Operation: Bedside wound vac exchange Faculty: Apryl Nunez MD Resident : James Avery MD Anesthesia: None Procedure in Detail: Verbal consent was obtained prior to the procedure. The previous wound vac dressing and sponge were removed from the wound. Opaque isaac fluid was noted within the wound, and a sample was sent for culture. The wound was measured to be 6.5 cm long x 4cm wide x 3cm deep. A small piece of white sponge was placed deep into the wound, and then a larger piece of black sponge, cut to the contour of the wound,was placed on top. The clear adhesive was then applied, a small cut made over the center of the black sponge, and then the lula pac suction was placed over that. The tubing was connected to the wound vac and suction was confirmed to hold. The patient tolerated the procedure well. Estimated Blood Loss: None Specimens: Wound culture Complications: none Specific Instructions: Keep to continuous suction. To be changed in 2-3 days James Avery MD General Surgery PGY-2 OR OFFICE SUPPORT ASSISTANT SOSA Associated attestation - Apryl Nunez MD - 02/13/2020 2:40 PM CSTAttending Attestation: I personally evaluated and examined the patient on 02/12/[address] Avery's procedure note as written. I actively participated in the decision-making process. Please see the resident's note for additional details. Apryl Nunez M.D. 02/13/2020 14:40documented in this encounter Consult Notes Estefani Iqbal MD - 02/17/2020 2:51 PM CST Nephrology Consult note CC Nausea, vomiting , leaking stoma bag Reason for consult HEATHER , hyponatremia , acidosis HPI 79 year-old woman with pmh of hypothyroidism, DM, HLD, HTN, CAD S/P CABG hintestinal blockage s/p resection with subsequent ostomy in 11/2019 and wound vac. Patient presented for nausea, abd pain and leaking from colostomy site ROS Constitutional: Positive for appetite change (decreased). Negative for chills, diaphoresis, fatigue,fever and unexpected weight change. Activity change: decreased. Eyes: Negative. Respiratory: Negative. Breasts: Negative. Cardiovascular: Negative. Gastrointestinal: Positive for abdominal pain. Negative for abdominal distention, anal bleeding, blood in stool, constipation, diarrhea, nausea, rectal pain and vomiting. : Negative for bladder incontinence, urgency, frequency, hematuria, flank pain, decreased urine volume, vaginal bleeding, vaginal discharge, enuresis, difficulty urinating, genital sores, vaginal pain, menstrual problem, pelvic pain, dyspareunia and nocturia. Musculoskeletal: Positive for back pain. Negative for arthralgias, gait problem, joint swelling and myalgias. Skin: Positive for rash (ostomy area). Negative for color change, pallor and wound. Neurological: Positive for weakness. Negative for dizziness, tremors, seizures, syncope, facial asymmetry, speech difficulty, light-headedness, numbness and headaches. Psychiatric/Behavioral: Negative. Endocrine: Endocrine negative Past Medical History: Diagnosis Date Acquired hypothyroidism 02/12/2017 Bashir's palsy left side Diet-controlled diabetes mellitus not on any medication. states she is not diabetic anymore per PCP High cholesterol HTN (hypertension), benign follows with Dr. Anguiano. Other specified hypothyroidism Past Surgical History: Procedure Laterality Date BREAST LUMPECTOMY 07/08/2011 Was benign. COLONOSCOPY N/A 07/28/2017 Surgeon: Kale Lundberg MD; Location: [facility] OR [facility] HAMMERTOE CORRECTION Left 05/13/2018 Surgeon: Eran Umana DPM; Location: [facility] LEG/ANKLE SURGERY PROC UNLISTED Right 04/21/2013 Right ankle fracture with four screws placed. OTHER 05/05/2007 Eyelid was repaired. OTHER 1997 Knee surgery OTHER 2015 Hemorrhoid surgery RADICAL HYSTERECTOMY TOTAL ABDOM HYSTERECTOMY Family History Problem Relation Age of Onset Depression Mother Depression Sister several sisters. 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 Social Needs Financial resource strain: Not hard at all Food insecurity Worry: Never true Inability: Never true Transportation needs Medical: No Non-medical: No Tobacco Use Smoking status: Never Smoker Smokeless tobacco: Never Used Substance and Sexual Activity Alcohol use: No Drug use: No Sexual activity: Not on file Lifestyle Physical activity Days per week: Not on file Minutes per session: Not on file Stress: Not on file Relationships Social connections Talks on phone: Not on file Gets together: Not on file Attends orthodoxy service: Not on file Active member of [...] file Social History Narrative Not on file Allergies Allergen Reactions Morphine Sulfate Hallucinations CANNOT TAKE ANY TYPE OF MORPHINE Current Discharge Medication List START taking these medications Details cefpodoxime 100 mg tablet Take 1 tablet by mouth 2 (two) times daily for 7 days. Qty: 14 tablet, Refills: 0 Associated Diagnoses: Chest pain, unspecified type STOP taking these medications collagenase 250 unit/gram ointment Comments: Reason for Stopping: levothyroxine 125 mcg tablet Comments: Reason for Stopping: omeprazole 20 mg capsule Comments: Reason for Stopping: sodium hypochlorite 0.025% Soln solution Comments: Reason for Stopping: warfarin 1 mg tablet Comments: Reason for Stopping: atorvastatin 40 mg tablet Comments: Reason for Stopping: ferrous sulfate 325 mg (65 mg iron) tablet Comments: Reason for Stopping: metoprolol tartrate 25 mg tablet Comments: Reason for Stopping: mirtazapine 15 mg tablet Comments: Reason for Stopping: sodium bicarbonate 650 mg tablet Comments: Reason for Stopping: SERTraline 50 mg tablet Comments: Reason for Stopping: aspirin 81 mg chewable tablet Comments: Reason for Stopping: Current Facility-Administered Medications: diphenoxylate-atropine (LOMOTIL) 2.5-0.025 mg tablet 1 tablet, 1 tablet, Oral, Q6H, James Avery MD, 1 tablet at 02/17/20 1316 sodium bicarbonate 150 mEq in D5W 1,000 mL IV infusion, 150 mEq, IV Infusion, CONTINUOUS, Estefani Iqbal MD sodium bicarbonate (ANTACID (SODIUM BICARBONATE)) tablet 650 mg, 650 mg, Oral, TID, Estefani Iqbal MD, 650 mg at 02/17/20 1316 metoprolol tartrate (LOPRESSOR) tablet 25 mg, 25 mg, Oral, BID, Basil Redman MD, 25 mg at 02/17/20928 warfarin (COUMADIN) tablet 3 mg, 3 mg, Oral, DAILY AT 1700, Basil Redman MD, 3 mg at 02/16/20 1742 psyllium (METAMUCIL FIBER SINGLES) 3.4 gram packet 1 Packet, 1 Packet, Oral, QID, Apryl Nunez MD, 1 Packet at 02/17/20 1235 acetaminophen (TYLENOL) tablet 650 mg, 650 mg, Oral, Q6HPRN, Nivia Teran MD, 650 mg at 02/17/20 1316 aspirin chewable tablet 81 mg, 81 mg, Oral, DAILY, Nivia Teran MD, 81 mg at 02/17/20928 atorvastatin (LIPITOR) tablet 40 mg, 40 mg, Oral, QHS, Nivia Teran MD, 40 mg at 02/16/20 2157 collagenase (SANTYL) ointment, , Topical (Apply To Affected Areas), DAILY, Nivia Teran MD, Given at 02/17/20928 dextrose 50 % in water (D50W) injection 25 mL, 25 mL, Slow IV Push, PRN, Nivia Teran MD ferrous sulfate tablet 325 mg, 325 mg, Oral, QPM, Nivia Teran MD, 325 mg at 02/16/20 1737 glucagon (GLUCAGEN DIAGNOSTIC KIT) injection 1 mg, 1 mg, Intramuscular, PRN, Nivia Teran MD levothyroxine (SYNTHROID) tablet 125 mcg, 125 mcg, Oral, QAM-0600, Nivia Teran MD, 125 mcg at 02/17/20 0536 mirtazapine (REMERON) tablet 15 mg, 15 mg, Oral, QHS, Nivia Teran MD, 15 mg at 02/16/20 2157 omeprazole (PRILOSEC) capsule 20 mg, 20 mg, Oral, DAILY, Nivia Teran MD, 20 mg at 02/17/20 0929 ondansetron (ZOFRAN (PF)) injection 4 mg, 4 mg, Slow IV Push, Q6HPRN, Nivia Teran MD, 4 mg at 02/14/20 1018 Sliding Scale Insulin-Regular + Fsbg Testing, , Subcutaneous, AC, Nivia Teran MD, Stopped at 02/13/20 1630 BP 105/41 (BP Location: Right arm, Patient Position: Sitting) | Pulse 82 | Temp 36.6 C (97.9 F) (Tympanic) | Resp 20 | Ht 1.473 m (4' 10") | Wt 55.5 kg (122 lb 4.8 oz) | SpO2 95% | BMI 25.56kg/m Physical exam General: AAOX3, NAD , NeckL: supple, no elevated JVD Chest: CTAB, no, rales or wheezes Herat: RRR, Normal S1,2 Abd: Soft, NT , Colsotomy with liquid stool, wound vac Extremities: No edmea CBC WBC (10*3/L) Date Value 02/17/2020 14.13 (H) RBC (10*6/L) Date Value 02/17/2020 3.46 (L) PLT (10*3/L) Date Value 02/17/2020 473 (H) HGB (g/dL) Date Value 02/17/2020 9.8 (L) HCT (%) Date Value 02/17/2020 29.9 (L) CMP NA (mmol/L) Date Value 02/17/2020 130 (L) K (mmol/L) Date Value 02/17/2020 4.1 CALCIUM (mg/dL) Date Value 02/17/2020 6.9 (L) CL (mmol/L) Date Value 02/17/2020 109 (H) BUN (mg/dL) Date Value 02/17/2020 22 CREATININE (mg/dL) Date Value 02/17/2020 0.92 GLUCOSE (mg/dL) Date Value 02/17/2020 54 (L) CO2 TOTAL (mmol/L) Date Value 02/17/2020 13 (L) ALBUMIN (g/dL) Date Value 02/16/2020 3.5 T PROTEIN (g/dL) Date Value 02/16/2020 7.8 TOTAL BILI (mg/dL) Date Value 02/16/2020 0.9 BILI UNCON (mg/dL) Date Value 02/11/2020 0.7 BILI CONJ (mg/dL) Date Value 02/11/2020 0.0 ALT(SGPT) (U/L) Date Value 07/12/2018 25 ALTv (U/L) Date Value 02/16/2020 44 (H) AST(SGOT) (U/L) Date Value 02/16/2020 67 (H) ALK PHOS (U/L) Date Value 02/16/2020 201 (H) Assessment and plan HEATHER Resolved Due to dehydration from Stoma loss Abd CT no hydro Hyponatremia Improved Continue Fluid PO fluid restriction encourage food intake NAGMA Due to diarrhea Lomotil and psyllium for stool bulking Sacral decubiti wound Continue wound care UTI Continue Abx Sosa changed Total time spent 60min Nivia Nunn PT - 02/17/2020 10:56 AM CSTAssociated Order(s): CONSULT ADULT PHYSICAL THERAPY Patient agreeable to working with physical therapy. Patient met Semi reclined in bed and family is in the room. PHYSICAL THERAPY EVALUATION Consult received, chart reviewed and evaluation complete this date. Patient is referred to PT for evaluation and treatment. Patient is a 79 year old female who presents to hospital for HEATHER (acute kidney injury) UTI (urinary tract infection). Wound vac on and colostomy bag intact. Discharge Recommendations: Therapy Needs and Potential: Patient demonstrates good potential to improve and meet therapy goals with further physical therapy services. Challenges to Home Transition: increased risk of falls decreased safety awareness Equipment recommendations: rolling walker Current Functional Status and/or Treatment:Functional mobility training, Transfer training, Gait training and Patient/Family/Caregiver education Bed Mobility: Supine to sit: Moderate assist Scooting to edge of bed: Moderate assist Sit to supine: Moderate assist. Transfers: Sit to stand: Moderate assist using Rolling Walker Stand to sit: Moderate assist using Rolling Walker Verbal cueing provided for correct hand placement and correct use of AD Ambulation: Assisted patient with ambulation as follows: 8 feet using Rolling Walker and Moderate assist. Therapeutic exercise: patient/caregiver verbalizes understanding of instructions. After session, patient Up in chair. Call button provided. Nurse was notified patient that skin around the colostomy is bleeding gauze was place on top, no leakage noted. PLAN OF CARE: At least 2 times per week, once or twice a day (while in hospital) per patient's tolerance and medical needs. See below for complete details. Admit Date: 02/11/2020 Hospital Diagnosis:HEATHER (acute kidney injury) UTI (urinary tract infection) PT Diagnosis: Difficulty walking and Weakness Weight Bearing Precaution: NA General Precautions: General, Fall, no gait belt due to colostomy and wound vac,Sosa catheter, Wound VAC, IV Bracing/Cast present or required:N/A PMH: Past Medical [...] N/A 07/28/2017 Surgeon: Kale Lundberg MD; Location: [facility] OR Location [place] CORRECTION Left 05/13/2018 Surgeon: Eran Umana DPM; Location: [facility] OR [facility] LEG/ANKLE SURGERY PROC UNLISTED Right 04/21/2013 Right ankle fracture with four screws placed. OTHER 05/05/2007 Eyelid was repaired. OTHER 1997 Knee surgery OTHER 2015 Hemorrhoid surgery RADICAL HYSTERECTOMY TOTAL ABDOM HYSTERECTOMY Prior Living Situation: lives with their family and house DME: No device Prior level of Mobility: house hold ambulation Subjective: Patient agreed to participate with PT and complaint of pain on the buttock. Dressing noted Patient/Family Goals: To get better. Patient/Family verbalizes understanding of condition: Yes PAIN: -Pain Location: buttocks -Pain rating before treatment: does not rate, After treatment: does not rate -Pain Management: Nursing Notified COMMUNICATION Primary Language: Eritrean Able to Verbalize needs: Yes Vision:good; no issues reported Hearing:good; no issues reported ORIENTATION/COGNITION: Oriented to: person and place Awake: Yes Alert: Yes Dizzy: Yes when patient from supine to sit and subside after few minutes Follows Commands: Yes 1-Step Yes Multi-Step Yes Inconsistent: No NEUROLOGICAL Light Touch: within functional limits bilateral LE Heel to paul: NT Tone: Normal BALANCE: Sitting: Static: Good Dynamic: Good Standing: Static: Fair+ Dynamic: NT RANGE OF MOTION: within functional limits bilateral LE STRENGTH: 3+/5 (F+), bilateral LE ENDURANCE: NT SKIN INTEGRITY: not intact, abdominal area PROBLEM LIST: Decline in bed mobility, Decline in gait, Decline in transfers, Decreased strength andSafety awareness deficits ASSESSMENT: Patient is a 79 [...] will demonstrate the followin. Supine to sit: CGA Scooting to edge of bed: CGA Sit to supine: CGA 2. Sit to stand: CGA using Rolling Walker Stand to sit: CGA using Rolling Walker 3. CGA with ambulation, Feet: 150 using least assistive device. 4. Demonstrate or verbalize understanding of home exercise program in order to continue with their rehab on their own. Treatment Plan: Gait training, Therapeutic exercise, Transfer training, Balance training, Bed mobility training and Safety education, patient/caregiver education PATIENT EDUCATION: Patient provided with preferred teaching of verbal information on role of PT, plan of care. Shows readiness to learn. Verbal instruction teaching provided. Individual is able to readand verbalizes understanding of teaching provided. Nivia Garcia,PT [place] License: [id number] Required Components in Determining Evaluation Level History: No personal factors or comorbidities: No (98533) 1-2 personal factors and/or comorbidities: Yes (06382) 3 or more personal factors and/ or comorbidities: No (62536) Examination of Body System(s) Addressing 1-2 elements: Yes (28057) Addressing a total of 3 or more elements: No (93308) Addressing a total of 4 or more elements: No (68025) Clinical Presentation Stable: Yes (83467) Evolving: No (32994) Unstable: No (72360) Clinical Decision Making (Complexity) Low: Yes (83423) Moderate: No (91254) High: No (77191) athleen Casanova RD - 02/14/2020 11:09 AM CSTAssociated Order(s): CONSULT FOOD AND NUTRITIONSummary: Recommend Ensure Enlive TID MEDICAL NUTRITION THERAPY- CONSULT NOTE: Reason For Consultation: Physician consult: Poor Appetite Malnutrition Assessment: Nutritional Diagnosis: Severe protein-calorie malnutrition SGA Rating: Severely Malnourished Plan: Recommend Ensure Enlive QID Admission Chief Complaint: had concerns including Back Pain and Chest Pain. Present on Admission: HEATHER (acute kidney injury) Wound infection PMH/PSH: has a past medical history of Acquired hypothyroidism (02/12/2017), Bashir's palsy, Diet-controlled diabetes mellitus, High cholesterol, HTN (hypertension), benign, and Other specified hypothyroidism. has a past surgical history that includes breast lumpectomy (07/08/2011); other (05/05/2007); leg/ankle surgery proc unlisted (Right, 04/21/2013); other (1997); other (2015); total abdom hysterectomy;colonoscopy (N/A, 07/28/2017); radical hysterectomy; and hammertoe correction (Left, 05/13/2018). GI and Nutrition Related Findings: Symptoms: Nausea Difficulty: N/A GI tract alteration: Ostomy Alternative means of nutrition: N/A General: Wounds (eg. Vascular, Diabetic, Burn, Pressure) - from wound report: Stage III coccyx pressure injury Medications: Current Facility-Administered Medications: warfarin (COUMADIN) tablet 3 mg, 3 mg, Oral, DAILY AT 1700, Basil Redman MD psyllium (METAMUCIL FIBER SINGLES) 3.4 gram packet 1 Packet, 1 Packet, Oral, QID, Apryl Nunez MD, 1 Packet at 02/14/20 0850 acetaminophen (TYLENOL) tablet 650 mg, 650 mg, Oral, Q6HPRN, Nivia Teran MD aspirin chewable tablet 81 mg, 81 mg, Oral, DAILY, Nivia Teran MD, 81 mg at 02/14/20 0850 atorvastatin (LIPITOR) tablet 40 mg, 40 mg, Oral, QHS, Nivia Teran MD, 40 mg at 02/14/20 0024 collagenase (SANTYL) ointment, , Topical (Apply To Affected Areas), DAILY, Nivia Teran MD, Given at 02/14/20 0901 dextrose 50 % in water (D50W) injection 25 mL, 25 mL, Slow IV Push, PRN, Nivia Teran MD ferrous sulfate tablet 325 mg, 325 mg, Oral, QPM, Nivia Teran MD, 325 mg at 02/13/20 1650 glucagon (GLUCAGEN DIAGNOSTIC KIT) injection 1 mg, 1 mg, Intramuscular, PRN, Nivia Teran MD levothyroxine (SYNTHROID) tablet 125 mcg, 125 mcg, Oral, QAM-0600, Nivia Teran MD, 125 mcg at 02/14/20 0531 mirtazapine (REMERON) tablet 15 mg, 15 mg, Oral, QHS, Nivia Teran MD, 15 mg at 02/14/20 0024 omeprazole (PRILOSEC) capsule 20 mg, 20 mg, Oral, DAILY, Nivia Teran MD, 20 mg at 02/14/20 0850 ondansetron (ZOFRAN (PF)) injection 4 mg, 4 mg, Slow IV Push, Q6HPRN, Nivia Teran MD, 4 mg at 02/14/20 1018 Sliding Scale Insulin-Regular + Fsbg Testing, , Subcutaneous, AC, Nivia Teran MD, Stopped at 02/13/20 1630 sodium bicarbonate (ANTACID (SODIUM BICARBONATE)) tablet 650 mg, 650 mg, Oral, DAILY, Nivia Teran MD, 650 mg at 02/14/20 0850 Lab and Medical Test Results: NA (mmol/L) Date Value 02/14/2020 131 (L) K (mmol/L) Date Value 02/14/2020 4.7 CALCIUM (mg/dL) Date Value 02/14/2020 8.5 (L) CL (mmol/L) Date Value 02/14/2020 102 BUN (mg/dL) Date Value 02/14/2020 24 (H) CREATININE (mg/dL) Date Value 02/14/2020 1.03 GLUCOSE (mg/dL) Date Value 02/14/2020 85 CO2 TOTAL (mmol/L) Date Value 02/14/2020 19 (L) ALBUMIN (g/dL) Date Value 02/14/2020 3.0 (L) T PROTEIN (g/dL) Date Value 02/14/2020 6.7 TOTAL BILI (mg/dL) Date Value 02/14/2020 0.8 BILI UNCON (mg/dL) Date Value 02/11/2020 0.7 BILI CONJ (mg/dL) Date Value 02/11/2020 0.0 ALT(SGPT) (U/L) Date Value 07/12/2018 25 ALTv (U/L) Date Value 02/14/2020 31 AST(SGOT) (U/L) Date Value 02/14/2020 45 (H) ALK PHOS (U/L) Date Value 02/14/2020 163 (H) Nutrition Assessment: Age: [age] year old Sex: female Ht: Ht Readings from Last 3 Encounters: 02/12/20 1.473 m (4' 10") 11/17/19 1.626 m (5' 4") 07/12/18 1.499 m (4' 11") Current Wt: Wt Readings from Last 1 Encounters: 02/14/20 51 kg (112 lb 6.4 oz) BMI: Body mass index is 23.49 kg/m. (Normal) IBW for Ht: 40.9 kg +/- 4 kg %IBW: 125% Weight History: Wt Readings from Last 10 Encounters: 02/14/20 51 kg (112 lb 6.4 oz) 02/05/20 57 kg (125 lb 10.6 oz) 11/26/19 59.9 kg (132 lb) 11/17/19 59.9 kg (132 lb) 07/12/18 59.9 kg (132 lb) 05/10/18 61.6 kg (135 lb 12.9 oz) 11/08/17 61.6 kg (135 lb 14.4 oz) 07/26/17 59.9 kg (132 lb) 04/02/17 60.8 kg (134 lb) 02/12/17 61 kg (134 lb 6.4 oz) Inflammatory Markers: Increased HR (>90) Current Dietary Order(s): Orders Placed This Encounter Procedures Cardiac (2 gm Sodium, Low Fat, Low Cholesterol) Diet; Texture: Regular. EMR Documented Food Allergies/Intolerance/Cultural Preferences: Patient does not like fish; updated kitchen. Allergies Allergen Reactions Morphine Sulfate Hallucinations CANNOT TAKE ANY TYPE OF MORPHINE Nutrition & Diet History: Patient is grenadian-speaking only. Used [facility] in-person transfer driver to speak with patient. Patient complains of nausea and only wanting to drink Ensure. 2 Ensure bottles were at bedside. 1/4 of breakfastreported on flowsheet. Ms. Sherman had no food preferences at visit and reports that her family was coming to visit today and sometimes they bring food for her. UBW is 125-130 lbs, consistent with EMR.Weight loss of 20 lbs in 3 months (significant 15%). RD reviewed patient's labs, and will continue to monitor. Calculated Daily Nutritional Needs: Calories: 1430 kcal/day = 28 kcal/kg current wt = 35 kcal/kg IBW Protein: 77 g/day = 1.5 g/kg current wt = 1.9 g/kg IBW Fluid: 1785 mL/day (35 mL/kg CBW) or per MD; adjust per acute needs Nutrition Diagnosis: PES #1: Severe protein calorie malnutrition in the context of chronic illness related to decreased intake with increased needs for wound healing as evidenced by patient consuming <75% of estimated energy requirements for > 1 month and weight loss of >7.5% in 3 months (15%) Nutrition Intervention(s): Interventions: 1. Recommend continue the current diet order as tolerated - consider regular diet if poor intake continues 2. Recommend Ensure Enlive QID to provide 350 calories and 20 g protein/ bottle to help patient meether needs 3. Recommend daily weights 4. Recommend encouragement at meals & offering snacks PRN 5. Will monitor diet tolerance, intake, GI function, weight trends, and nutrition related labs Goals: 1. The pt's documented intake is no less than 75% of provided meals/ snacks/ supplements 2. Weight maintenance while inpatient D/C Planning: Regular diet + vitamin K consistent foods + oral nutrition supplements Nutrition Monitoring and Evaluation: A registered dietitian will f/u in 3-5 days to report nutrition related information and to revise the recommended nutrition intervention(s) if necessary; please page with questions or concerns, thank-you. Kathleen Casanova RD,LASHAY RD Office: [phone] signed by Kathleen Casanova RD at 02/14/2020 11:46 AM James Spann MD - 02/12/2020 8:20 AM CSTAssociated Order(s): CONSULT GENERAL SURGERY GENERAL SURGERY CONSULTATION NOTE Reason for Consultation / Chief Complaint: Abdominal pain, intra-abdominal fluid collection Consult Requested By: Dr. Teran History of Present Illness: Jorge A Sherman is a 79 year old female with PMH as below and PSH significant for CABG done at OSH 11/2019 with postop course complicated by mesenteric ischemia vs obstruction requiring partial colectomy and ileostomy (unclear if loop or end) creation as well as abdominal wound dehiscence managed with a wound vac, who presented to the ED due to malaise, weakness, and decreased UOP.CTAP obtained in ED demonstrated fluid collection along right rectus sheath concerning for abscess. Today, patient reports abdominal pain has improved. She is now making adequate urine after fluid resuscitation. Reports her ostomy has been leaking for a while now despite it being changed regularly by home health nurse. reports home health nurse comes by [facility] and also changes midline abdominal wound vac, which currently uses white sponge with black sponge on top. Past Medical History: Past Medical History: Diagnosis Date Acquired hypothyroidism 02/12/2017 Bashir's palsy left side Diet-controlled diabetes mellitus not on any medication. states she is not diabetic anymore per PCP High cholesterol HTN (hypertension), benign follows with Dr. Anguiano. Other specified hypothyroidism Past Surgical History: Past Surgical History: Procedure Laterality Date BREAST LUMPECTOMY 07/08/2011 Was benign. COLONOSCOPY N/A 07/28/2017 Surgeon: Kale Lundberg MD; Location: [facility] OR Location [place] CORRECTION Left 05/13/2018 Surgeon: Eran Umana DPM; Location: [facility] OR [facility] LEG/ANKLE SURGERY PROC UNLISTED Right 04/21/2013 Right ankle fracture with four screws placed. OTHER 05/05/2007 Eyelid was repaired. OTHER 1997 Knee surgery OTHER 2015 Hemorrhoid surgery RADICAL HYSTERECTOMY TOTAL ABDOM HYSTERECTOMY Allergies: Allergies Allergen Reactions Morphine Sulfate Hallucinations CANNOT TAKE ANY TYPE OF MORPHINE Family History: Family History Problem Relation Age of Onset Depression Mother Depression Sister several sisters. 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 Social Needs Financial resource strain: Not hard at all Food insecurity Worry: Never true Inability: Never true Transportation needs Medical: No Non-medical: No Tobacco Use Smoking status: Never Smoker Smokeless tobacco: Never Used Substance and Sexual Activity Alcohol use: No Drug use: No Sexual activity: Not on file Lifestyle Physical activity Days per week: Not on file Minutes per session: Not on file Stress: Not on file Relationships Social connections Talks on phone: Not on file Gets together: Not on file Attends orthodoxy service: Not on file Active member of [...] file Social History Narrative Not on file Review of Systems (BOLDED if positive. Otherwise negative.) General: weight changes, fatigue, fever Eyes: corrective lenses, pain, blurred vision ENT: hearing problems, earaches, allergies, nose bleeds Skin: rashes, lumps Respiratory: cough, wheeze, shortness of breath Cardiac: chest discomfort, palpitations Gastrointestinal: swallowing problems, nausea/vomiting, blood in stool, abdominal pain Musculoskeletal: muscle cramps, back pain, joint pain, weakness, tingling, pain in feet Immunologic: food allergies, recurrent infections Urinary: increased frequency, burning, urinating at night, incontinence, blood in urine Psychiatric: anxiety, depression Endocrine: thyroid trouble, diabetes Neurologic: fainting, seizures, loss of memory, headaches, numbness, stroke Hematologic: anemia, bleeding problems, transfusion reaction Physical Exam: BP 102/51 | Pulse 87 | Temp 37.1 C (98.8 F) | Resp 18 | Ht 1.473 m (4' 10") | Wt 54.9 kg (121 lb) | SpO2 98% | BMI 25.29 kg/m Intake/Output Summary (Last 24 hours) at 02/12/2020 0820 Last data filed at 02/12/2020 0511 Gross per 24 hour Intake 236 ml Output 500 ml Net -264 ml General: alert and oriented in no apparent distress Head: normocephalic, atraumatic Eyes: extraocular movements intact; no scleral icterus CV: regular rate Resp: unlabored, no increased work of breathing, equal bilateral chest rise Gi: abdomen soft, nondistended, no tenderness to palpation, no peritonitis ileostomy in RLQ with green fluid and healthy mucosa, midline incision well healed with exception of approx 3cm wound. Opaque yellow/white discharge visible within wound and saturated white sponge Extremities/Musculoskeletal: moves extremities well, no edema or cyanosis Skin: skin color, texture, and turgor normal; no rashes or lesions Neuro: unremarkable without focal findings Psych: normal mood and affect; judgement intact Labs: I independently reviewed the patient's labs. CBC WBC (10*3/L) Date Value 02/11/2020 14.75 (H) RBC (10*6/L) Date Value 02/11/2020 3.33 (L) PLT (10*3/L) Date Value 02/11/2020 430 (H) HGB (g/dL) Date Value 02/11/2020 9.3 (L) HCT (%) Date Value 02/11/2020 28.7 (L) BMP NA (mmol/L) Date Value 02/12/2020 128 (L) K (mmol/L) Date Value 02/12/2020 4.2 CALCIUM (mg/dL) Date Value 02/12/2020 7.8 (L) CL (mmol/L) Date Value 02/12/2020 102 BUN (mg/dL) Date Value 02/12/2020 29 (H) CREATININE (mg/dL) Date Value 02/12/2020 1.18 (H) GLUCOSE (mg/dL) Date Value 02/12/2020 81 CO2 TOTAL (mmol/L) Date Value 02/12/2020 16 (L) Hepatic Function Panel ALBUMIN (g/dL) Date Value 02/12/2020 3.0 (L) T PROTEIN (g/dL) Date Value 02/12/2020 6.6 TOTAL BILI (mg/dL) Date Value 02/12/2020 0.9 BILI UNCON (mg/dL) Date Value 02/11/2020 0.7 BILI CONJ (mg/dL) Date Value 02/11/2020 0.0 ALT(SGPT) (U/L) Date Value 07/12/2018 25 ALTv (U/L) Date Value 02/12/2020 32 AST(SGOT) (U/L) Date Value 02/12/2020 43 (H) ALK PHOS (U/L) Date Value 02/12/2020 144 (H) Radiology: I independently reviewed the patient's CTAP from 02/12/20, significant for intra- abdominal fluid collection by right rectus that is similar to that seen on previous CT 02/05/20 Ct Abdomen Pelvis Wo Contrast Result Date: 02/12/2020 Ileostomy exiting the right pelvic wall. There is redemonstration of an air and fluid collection subjacent to the right rectus sheath, measuring approximately 4.1 x 2.7 cm, similar to prior study of 02/05/2020. No evidence for bowel obstruction. 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 RL: [id number] AFC: [id number] Assessment: Jorge A Sherman is a 79 year old female with PMH as above and PSH significant for recent CABG and partial colectomy with ileostomy creation at OSH, who was admitted for malaise and decreasedUOP. Surgery consulted for intraabominal fluid collection seen on CT and possible drainage/intervention. Not entirely clear what surgery patient had undergone at OSH, will need records to determine current anatomy. Fluid collection on imaging appears stable from last CTAP. Currently, patient remains stable with improving in abdominal pain and UOP. Decision on procedure/drainage pending OSH records Plan: 1. Obtain [facility] records regarding hospitalization in 11/2019 and operative note 2. Wound vac changed at bedside, follow up cultures from abdominal wound 3. Recommend wound care nurse consult for leaking ostomy 4. If unable to obtain records or still unable to delineate anatomy, will order CTAP with IV and PO contrast James Avery MD General Surgery PGY-2 OR OFFICE SUPPORT ASSISTANT [facility] Associated attestation - Apryl Nunez MD - 02/14/2020 4:19 PM CSTAttending Attestation: I personally evaluated and examined the patient on 02/12/[address] Avery's consultation note as written. I actively participated in the decision- making process. Please see the resident's notefor additional details. Apryl Nunez M.D. 02/13/2020 14:39documented in this encounter ED Notes Lynnette Wick RN - 02/11/2020 9:05 PM CSTCC: Patient with c/o of chest pain, flank pain in the right side and patient is not urinating mostof the day. Patient has a colostomy to the right lower quad and wound vac to the left lower quad. PMHx: See list PSH: see list MEDS:see list LMP: NA Tetanus: Not sure Awake, alert, oriented, resp reg unlabored, skin warm, color appropriate for race, moves all ext without difficulty, amb with assitance Appears in no distress OR OFFICE SUPPORT ASSISTANT SOSA Ariana Hutchins DO - 02/11/2020 8:56 PM CST [facility] Emergency Department Note Patient Name: Jorge A Sherman Date of : 1940 79 year old female Treatment Room: TX5/TX5 Primary Care Physician: Vinnie Meek Patient Escorted by: Family [5] Mode of Arrival: Personal means [1] EMS Treatment Prior to ED Arrival: FORMS ANALYST treatment: None Travel and Exposure Screening: Symptoms Does patient have any of these symptoms?: (not recorded) Exposure Screening Has patient had contact with someone with a communicable disease in the last month?: (not recorded) Diseases exposed to:: (not recorded) Is Patient ?: (not recorded) Exposure Date: (not recorded) Chief Complaint: Chief Complaint Patient presents with Back Pain Chest Pain History of Present Illness: Patient presents with family for eval for no urine output since 1430 despite drinking fluids. No cpor sob. No fevers. Had CABG several months ago complicated by ileus, ischemic bowel and colon resection. Was in rehab and then home and recently admitted for a UTI and discharged home on 02/07. Family states that today she has not made any urine since 1430 and they are concerned. Patient c/o some suprapubic discomfort. Has ostomy to rLQ and wound vac to LLQ. Wound vac drainage has been decreasing. Ostomy has had brown watery stool since she returned home. No cough. No fevers. No n/v. No sickcontacts. Here for eval. 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 states she is not diabetic anymore per PCP High cholesterol HTN (hypertension), benign follows with Dr. Anguiano. Other specified hypothyroidism Tetanus received in last 5 years: Unknown Allergies: Allergies Allergen Reactions Morphine Sulfate Hallucinations CANNOT TAKE ANY TYPE OF MORPHINE Past Social History: Tobacco Use Never smoked or used smokeless tobacco. Alcohol Use No. Drug Use No. Past Surgical History: Past Surgical History: Procedure Laterality Date BREAST LUMPECTOMY 07/08/2011 Was benign. COLONOSCOPY N/A 07/28/2017 Surgeon: Kale Lundberg MD; Location: [facility] OR Location [place] CORRECTION Left 05/13/2018 Surgeon: Eran Umana DPM; Location: [facility] OR [facility] LEG/ANKLE SURGERY PROC UNLISTED Right 04/21/2013 Right ankle fracture with four screws placed. OTHER 05/05/2007 Eyelid was repaired. OTHER 1997 Knee surgery OTHER 2015 Hemorrhoid surgery RADICAL HYSTERECTOMY TOTAL ABDOM HYSTERECTOMY Review of Systems: Review of Systems Constitutional: Negative for chills and fever. Respiratory: Negative for cough. Cardiovascular: Negative for chest pain. Gastrointestinal: Negative for abdominal pain, nausea and vomiting. Genitourinary: Negative for dysuria. Musculoskeletal: Negative for arthralgias, neck pain and neck stiffness. Skin: Negative for wound. Neurological: Negative for dizziness. Psychiatric/Behavioral: Negative for agitation. Physical Exam: ED Triage Vitals [02/11/202107] Weight 59 kg (130 lb) Actual or estimated Estimated by patient/family report Height 1.473 m (4' 10") BP 124/61 Pulse 86 Resp 23 Temp 36.6 C (97.8 F) Temp source Oral SpO2 100 % Measured on Room air Physical Exam Vitals signs and nursing note reviewed. Constitutional: Appearance: Normal appearance. HENT: Head: Normocephalic and atraumatic. Neck: Musculoskeletal: Normal range of motion and neck supple. Cardiovascular: Rate and Rhythm: Normal rate and regular rhythm. Pulses: Normal pulses. Comments: Aortic valve click Pulmonary: Effort: Pulmonary effort is normal. No respiratory distress. Breath sounds: No stridor. No wheezing. Abdominal: General: There is no distension. Palpations: Abdomen is soft. There is no mass. Tenderness: There is no abdominal tenderness. There is no guarding. Comments: Ostomy to RLQ with liquid brown stool in the bag. Site is c/d/i Wound vac to LLQ Musculoskeletal: Normal range of motion. Skin: General: Skin is warm and dry. Neurological: General: No focal deficit present. Mental Status: She is alert. Radiology: Hospital Encounter on 02/11/20 Chest 1 View Narrative EXAM: XR CHEST 1 VW HISTORY: chest pain COMPARISON: 02/03/2020 FINDINGS: Lines/Tubes: None. Lungs: The lungs are clear. No pleural effusion or pneumothorax is identified. Heart/Mediastinum: The cardiomediastinal silhouette is mild enlarged. Status post CABG and aortic valve prosthesis. Bones: No acute osseous abnormality is seen. Medial sternotomy. Mild spondylosis. Surgical clips project over the epigastrium and gallbladder region. Impression 1. Cardiomegaly appears stable. Lab Results (24h): Recent Results (from the past 24 hour(s)) Lactic Acid Whole Blood Collection Time: 02/11/20 9:40 PM Result Value Ref Range LACTIC ACID 1.54 mmol/L CBC with Differential Collection Time: 02/11/20 9:41 PM Result Value Ref Range WBC 14.75 (H) 4.30 - 11.10 10*3/L RBC 3.33 (L) 3.93 - 5.25 10*6/L HGB 9.3 (L) 11.6 - 15.0 g/dL HCT 28.7 (L) 35.7 - 45.2 % MCV 86.2 80.6 - 95.5 fL MCH 27.9 25.9 - 32.8 pg MCHC 32.4 31.6 - 35.1 g/dL RDW-SD 50.6 (H) 39.0 - 49.9 fL RDW-CV 16.1 (H) 12.0 - 15.5 % PLT 430 (H) 166 - 358 10*3/L MPV 9.9 9.5 - 12.9 fL NRBC/100 WBC 0.0 0.0 - 10.0 /100 WBCs NRBC x10^3 <0.01 10*3/L GRAN MAT (NEUT) % 67.7 % IMM GRAN % 1.50 % LYMPH % 20.5 % MONO % 8.4 % EOS % 1.4 % BASO % 0.5 % GRAN MAT x10^3(ANC) 10.00 (H) 1.88 - 7.09 10*3/uL IMM GRAN x10^3 0.22 (H) 0.00 - 0.06 10*3/uL LYMPH x10^3 3.02 1.32 - 3.29 10*3/uL MONO x10^3 1.24 (H) 0.33 - 0.92 10*3/uL EOS x10^3 0.20 0.03 - 0.39 10*3/uL BASO x10^3 0.07 0.01 - 0.07 10*3/uL Basic Metabolic Panel (NA, K, CL, CO2, GLUCOSE, BUN, CREATININE, CA) Collection Time: 02/11/20 9:41 PM Result Value Ref Range NA 124 (L) 135 - 145 mmol/L K 4.6 3.5 - 5.0 mmol/L CL 91 (L) 98 - 108 mmol/L CO2 TOTAL 21 (L) 23 - 31 mmol/L AGAP 12 2 - 16 BUN 34 (H) 7 - 23 mg/dL GLUCOSE 116 (H) 70 - 110 mg/dL CREATININE 1.60 (H) 0.50 - 1.04 mg/dL CALCIUM 9.3 8.6 - 10.6 mg/dL eGFR Calculation (Non-) 31.0 mL/min/1.73m2 eGFR Calculation () 37.6 mL/min/1.73m2 Hepatic Function Panel (ALB, T.PRO, BILI T, BU/BC, ALT, AST, ALK PHOS) Collection Time: 02/11/20 9:41 PM Result Value Ref Range TOTAL BILI 1.1 0.1 - 1.1 mg/dL BILI UNCON 0.7 0.1 - 1.1 mg/dL BILI CONJ 0.0 0.0 - 0.3 mg/dL T PROTEIN 8.4 (H) 6.3 - 8.2 g/dL ALBUMIN 4.1 3.5 - 5.0 g/dL ALK PHOS 199 (H) 34 - 122 U/L ALTv 40 (H) 5 - 35 U/L AST(SGOT) 54 (H) 13 - 40 U/L Lipase Serum Collection Time: 02/11/20 9:41 PM Result Value Ref Range LIPASE 488 (H) 0 - 220 U/L Troponin I Collection Time: 02/11/20 9:41 PM Result Value Ref Range TROPONIN I 0.015 <=0.034 ng/mL MAGNESIUM Collection Time: 02/11/20 9:41 PM Result Value Ref Range MAGNESIUM 1.9 1.7 - 2.4 mg/dL Prothrombin Time (PT) / INR Collection Time: 02/11/20 9:41 PM Result Value Ref Range PROTIME PATIENT 18.1 (H) 12.0 - 14.7 Seconds INR 1.6 COVID-19 (ID NOW RAPID TESTING) Collection Time: 02/11/20 9:42 PM Specimen: NASOPHARYNGEAL SWAB Result Value Ref Range SARS-CoV-2 Rapid ID NOW Not Detected Not Detected Urinalysis Collection Time: 02/11/20 10:58 PM Result Value Ref Range APPEARANCE Hazy (A) Clear COLOR Zaria (A) Yellow PH 5.0 4.8 - 8.0 SP GRAVITY 1.015 1.003 - 1.030 GLU U QUAL Normal Normal BLOOD 1+ (A) Negative KETONES Negative Negative PROTEIN 30 mg/dL (A) Negative UROBILIN Normal Normal BILIRUBIN Negative Negative NITRITE Negative Negative LEUK YAMINI 75/uL (A) Negative RBC/HPF 2 0 - 3 HPF WBC/HPF 32 (H) 0 - 5 HPF BACTERIA Few (A) Negative MUCOUS Slight (A) Negative LPF SQ EPITH <1 HPF WBC CLUMPS 10 (H) <=1 HPF EKG: Nsr, no stemi, QTc 525, rate 88 Orders and Treatments: Orders Placed This Encounter Procedures Chest 1 View Urinalysis CBC with Differential Basic Metabolic Panel (NA, K, CL, CO2, GLUCOSE, BUN, CREATININE, CA) Hepatic Function Panel (ALB, T.PRO, BILI T, BU/BC, ALT, AST, ALK PHOS) Lipase Serum Troponin I Lactic Acid Whole Blood Lactic Acid Whole Blood MAGNESIUM COVID-19 (ID NOW RAPID TESTING) Prothrombin Time (PT) / INR LAB ONLY COVID INTERPRETATION URINE CULTURE Orders Placed This Encounter Medications NaCl 0.9% (NS) bolus infusion 1,000 mL cefTRIAXone (ROCEPHIN) 1,000 mg in NaCl 0.9% (NS) 50 mL MINI-BAG cefpodoxime 100 mg tablet ED COURSE patient presents for eval for decreased urine output today. Has been drinking water according to her family and she last urinated at 1430. No fevers. No cp or sob. No cough. Some suprapubic discomfort. Had recent CABG followed by complications of ileus, mesenteric ischemia and ostomy placement toRLQ. Also has wound vac to LLQ. Was recently discharged home for UTI on 02/07. VSS here in the [facility]. Has aortic click Lungs clear Abdomen soft and not tender Wound vac intact to LLQ Ostomy bag to RLQ and site is c/d/i Bladder scan shows about 40-50cc of urine. Will give IV fluids. Will check labs including creatinine and compare to others. Will screen for covid. Final dispo pending. 0005 - patient doing well. Denies complaints. Has started to urinate. Labs show HEATHER with creatinine of 1.60 and previous was 0.80. She was given 1L of NS here after her labs were drawn. UA shows slight infection - will give antibiotics and send urine culture. CXR shows no pneumonia. covid negative. Will admit patient for continued management of UTI and HEATHER. MDM: Coding Scoring Tools: No data recorded Diagnosis/Impression: ICD-10-CM ICD-9-CM 1. Chest pain, unspecified type R07.9 786.50 2. HEATHER (acute kidney injury) N17.9 584.9 3. Acute cystitis without hematuria N30.00 595.0 Disposition/Condition: ED Disposition ED Disposition Condition Comment Admit - Observation Is this patient COVID positive or a patient under investigation (PUI)?: No Treatment Team: EPIFANIOGA [[id number]] Primary reason for admission: HEATHER (acute kidney injury) [[id number]] Secondary reason for admission: UTI (urinary tract infection) [[id number]] Is (or was) this a planned re-admission?: No Discharge Medications: Patient's Medications START taking these medications CEFPODOXIME 100 MG TABLET Take 1 tablet by mouth 2 (two) times daily for 7 days. CONTINUE taking these medications which have NOT CHANGED ASPIRIN 81 MG CHEWABLE TABLET Take 81 mg by mouth daily. ATORVASTATIN 40 MG TABLET Take 40 mg by mouth at bedtime. COLLAGENASE 250 UNIT/GRAM OINTMENT Apply to affected area(s) daily. FERROUS SULFATE 325 MG (65 MG IRON) TABLET Take 325 mg by mouth every evening. LEVOTHYROXINE 125 MCG TABLET Take 1 tablet by mouth every morning for 90 days. METOPROLOL TARTRATE 25 MG TABLET Take 25 mg by mouth 2 (two) times daily. MIRTAZAPINE 15 MG TABLET Take 15 mg by mouth at bedtime. OMEPRAZOLE 20 MG CAPSULE Take 1 capsule by mouth daily for 90 days. SERTRALINE 50 MG TABLET Take 1 tablet by mouth daily. SODIUM BICARBONATE 650 MG TABLET Take 650 mg by mouth daily. SODIUM HYPOCHLORITE 0.025% SOLN SOLUTION Apply to area(s) 2 (two) times daily for 90 days. WARFARIN 1 MG TABLET Take 1 tablet by mouth every other day in the evening for 90 days. START taking Modified Medications as Prescribed No medications on file STOP taking these medications No medications on file Follow-up: Electronically signed by: Ariana Hutchins DO 02/11/2020 9:25 PM OR OFFICE SUPPORT ASSISTANT SOSA documented in this encounter Miscellaneous Notes Care Plan - Rolando Murray RN - 02/20/2020 10:49 PM SENIOR OFFICE SUPPORT ASSISTANT SOSA Problem: Discharge Planning Goal: Absence of venous thromboembolism Outcome: Progressing as expected Goal: Adequate for discharge Outcome: Progressing as expected Goal: Effective communication Outcome: Progressing as expected Problem: Pain Goal: Control of pain at or below patient's documented comfort goal Outcome: Progressing as expected Goal: Reduction in pain sensation Outcome: Progressing as expected Problem: Falls, Risk of Goal: Absence of falls Outcome: Progressing as expected Problem: Infection Risk Goal: Absence of infection Outcome: Progressing as expected Problem: Glucose control Goal: Glucose level within specified parameters Outcome: Progressing as expected Problem: Skin integrity Impaired (Risk or Actual) Goal: Wound healing Outcome: Progressing as expected Goal: Prevention of new skin breakdown Outcome: Progressing as expected are Plan - Beatriz Nava RN - 02/20/2020 7:37 PM CSTPt for possible discharge today. Colostomy bag with good seal. Pt due to void at 1000h, sosa removed at 0400h. Pt does not have any sensation or urge to pee at 10am. Bladder scan done at 11am, [id number]. Referred to MIRI Birch. Repeat bladder scan done at 1500 pm, indicating less than 200cc urine. Pt had drunk 1.5cc of fluids already. With orders to insert sosa catheter. Pts colostomy leaking, changed 3x today.Output is formed, jelly like green/brown stool Sosa inserted at 1700h, with output of 300cc zaria colored urine. Family decided to for patient to go to SNF, Dr Pugh had a long discussion with the family. are Ester - Rolando Murray RN - 02/20/2020 1:51 AM SENIOR OFFICE SUPPORT ASSISTANT SOSA Problem: Discharge Planning Goal: Absence of venous thromboembolism Outcome: Progressing as expected Goal: Adequate for discharge Outcome: Progressing as expected Goal: Effective communication Outcome: Progressing as expected Problem: Pain Goal: Control of pain at or below patient's documented comfort goal Outcome: Progressing as expected Goal: Reduction in pain sensation Outcome: Progressing as expected Problem: Falls, Risk of Goal: Absence of falls Outcome: Progressing as expected Problem: Infection Risk Goal: Absence of infection Outcome: Progressing as expected Problem: Glucose control Goal: Glucose level within specified parameters Outcome: Progressing as expected Problem: Skin integrity Impaired (Risk or Actual) Goal: Wound healing Outcome: Progressing as expected Goal: Prevention of new skin breakdown Outcome: Progressing as expected are Plan - Sydnie Beltran RN - 02/19/2020 7:53 PM SENIOR OFFICE SUPPORT ASSISTANT SOSA Problem: Discharge Planning Goal: Absence of venous thromboembolism Outcome: Progressing as expected Goal: Adequate for discharge Outcome: Progressing as expected Goal: Effective communication Outcome: Progressing as expected Problem: Pain Goal: Control of pain at or below patient's documented comfort goal Outcome: Progressing as expected Goal: Reduction in pain sensation Outcome: Progressing as expected Problem: Falls, Risk of Goal: Absence of falls Outcome: Progressing as expected Problem: Infection Risk Goal: Absence of infection Outcome: Progressing as expected Problem: Glucose control Goal: Glucose level within specified parameters Outcome: Progressing as expected Problem: Skin integrity Impaired (Risk or Actual) Goal: Wound healing Outcome: Progressing as expected Goal: Prevention of new skin breakdown Outcome: Progressing as expected are Plan - Fawn Nava RN - 02/18/2020 11:16 PM SENIOR OFFICE SUPPORT ASSISTANT SOSA Problem: Discharge Planning Goal: Absence of venous thromboembolism Outcome: Progressing as expected Goal: Adequate for discharge Outcome: Progressing as expected Goal: Effective communication Outcome: Progressing as expected Problem: Pain Goal: Control of pain at or below patient's documented comfort goal Outcome: Progressing as expected Goal: Reduction in pain sensation Outcome: Progressing as expected Problem: Falls, Risk of Goal: Absence of falls Outcome: Progressing as expected Problem: Infection Risk Goal: Absence of infection Outcome: Progressing as expected Problem: Glucose control Goal: Glucose level within specified parameters Outcome: Progressing as expected Problem: Skin integrity Impaired (Risk or Actual) Goal: Wound healing Outcome: Progressing as expected Goal: Prevention of new skin breakdown Outcome: Progressing as expected are Plan - Sarah Li RN - 02/18/2020 6:00 PM SENIOR OFFICE SUPPORT ASSISTANT SOSA Problem: Discharge Planning Goal: Absence of venous thromboembolism Outcome: Progressing as expected Goal: Adequate for discharge Outcome: Progressing as expected Goal: Effective communication Outcome: Progressing as expected Problem: Pain Goal: Control of pain at or below patient's documented comfort goal Outcome: Progressing as expected Goal: Reduction in pain sensation Outcome: Progressing as expected Problem: Falls, Risk of Goal: Absence of falls Outcome: Progressing as expected Problem: Infection Risk Goal: Absence of infection Outcome: Progressing as expected Problem: Glucose control Goal: Glucose level within specified parameters Outcome: Progressing as expected Problem: Skin integrity Impaired (Risk or Actual) Goal: Wound healing Outcome: Progressing as expected Goal: Prevention of new skin breakdown Outcome: Progressing as expected are Plan - Fawn Nava RN - 02/18/2020 12:03 AM SENIOR OFFICE SUPPORT ASSISTANT SOSA Problem: Discharge Planning Goal: Absence of venous thromboembolism Outcome: Progressing as expected Goal: Adequate for discharge Outcome: Progressing as expected Goal: Effective communication Outcome: Progressing as expected Problem: Pain Goal: Control of pain at or below patient's documented comfort goal Outcome: Progressing as expected Goal: Reduction in pain sensation Outcome: Progressing as expected Problem: Falls, Risk of Goal: Absence of falls Outcome: Progressing as expected Problem: Infection Risk Goal: Absence of infection Outcome: Progressing as expected Problem: Glucose control Goal: Glucose level within specified parameters Outcome: Progressing as expected Problem: Skin integrity Impaired (Risk or Actual) Goal: Wound healing Outcome: Progressing as expected Goal: Prevention of new skin breakdown Outcome: Progressing as expected are Plan - Lore Carvalho RN - 02/17/2020 9:29 AM SENIOR OFFICE SUPPORT ASSISTANT SOSA Problem: Discharge Planning Goal: Absence of venous thromboembolism Outcome: Progressing as expected Goal: Adequate for discharge Outcome: Progressing as expected Goal: Effective communication Outcome: Progressing as expected Problem: Pain Goal: Control of pain at or below patient's documented comfort goal Outcome: Progressing as expected Goal: Reduction in pain sensation Outcome: Progressing as expected Problem: Falls, Risk of Goal: Absence of falls Outcome: Progressing as expected Problem: Infection Risk Goal: Absence of infection Outcome: Progressing as expected Problem: Glucose control Goal: Glucose level within specified parameters Outcome: Progressing as expected Problem: Skin integrity Impaired (Risk or Actual) Goal: Wound healing Outcome: Progressing as expected Goal: Prevention of new skin breakdown Outcome: Progressing as expected ursing Note - Fawn Nava RN - 02/17/2020 5:56 AM CSTBladder scan performed. 550 mL of urine present. Per physician's order, 18F sosa catheter inserted f ollowing aseptic technique. 500 mL of urine drained. are Plan - Fawn Nava RN - 02/16/2020 11:35 PM SENIOR OFFICE SUPPORT ASSISTANT SOSA Problem: Discharge Planning Goal: Absence of venous thromboembolism Outcome: Progressing as expected Goal: Adequate for discharge Outcome: Progressing as expected Goal: Effective communication Outcome: Progressing as expected Problem: Pain Goal: Control of pain at or below patient's documented comfort goal Outcome: Progressing as expected Goal: Reduction in pain sensation Outcome: Progressing as expected Problem: Falls, Risk of Goal: Absence of falls Outcome: Progressing as expected Problem: Infection Risk Goal: Absence of infection Outcome: Progressing as expected Problem: Glucose control Goal: Glucose level within specified parameters Outcome: Progressing as expected Problem: Skin integrity Impaired (Risk or Actual) Goal: Wound healing Outcome: Progressing as expected Goal: Prevention of new skin breakdown Outcome: Progressing as expected are Plan - Sarah Li RN - 02/16/2020 5:00 PM SENIOR OFFICE SUPPORT ASSISTANT SOSA Problem: Discharge Planning Goal: Absence of venous thromboembolism Outcome: Progressing as expected Goal: Adequate for discharge Outcome: Progressing as expected Goal: Effective communication Outcome: Progressing as expected Problem: Pain Goal: Control of pain at or below patient's documented comfort goal Outcome: Progressing as expected Goal: Reduction in pain sensation Outcome: Progressing as expected Problem: Falls, Risk of Goal: Absence of falls Outcome: Progressing as expected Problem: Infection Risk Goal: Absence of infection Outcome: Progressing as expected Problem: Glucose control Goal: Glucose level within specified parameters Outcome: Progressing as expected Problem: Skin integrity Impaired (Risk or Actual) Goal: Wound healing Outcome: Progressing as expected Goal: Prevention of new skin breakdown Outcome: Progressing as expected are Plan - Beatriz Nava RN - 02/16/2020 12:33 AM CSTReceived with family inside the room, MIRI Minaya spoke with the family. Newly changed colostomy was leak ing again, changed by scribe. The moldable ring around ostomy is not available, supervisor vendor quality made aware. are Plan - Katrin Hardy RN - 02/15/2020 8:17 PM SENIOR OFFICE SUPPORT ASSISTANT SOSA Problem: Discharge Planning Goal: Absence of venous thromboembolism Outcome: Progressing as expected Goal: Adequate for discharge Outcome: Progressing as expected Goal: Effective communication Outcome: Progressing as expected Problem: Pain Goal: Control of pain at or below patient's documented comfort goal Outcome: Progressing as expected Goal: Reduction in pain sensation Outcome: Progressing as expected Problem: Falls, Risk of Goal: Absence of falls Outcome: Progressing as expected Problem: Infection Risk Goal: Absence of infection Outcome: Progressing as expected Problem: Glucose control Goal: Glucose level within specified parameters Outcome: Progressing as expected are Plan - Beatriz Nava RN - 02/15/2020 12:23 AM CSTReceived patient, on bed, stable, Beninese speaking, with leaking colostomy. Changed by AM nurse, output around 100cc. Pt ostomy still leaking but with minimal amount now upon assessment. are Plan - Garima Walton RN - 02/14/2020 5:28 PM SENIOR OFFICE SUPPORT ASSISTANT SOSA Problem: Discharge Planning Goal: Absence of venous thromboembolism Outcome: Progressing as expected Goal: Adequate for discharge Outcome: Progressing as expected Goal: Effective communication Outcome: Progressing as expected Problem: Pain Goal: Control of pain at or below patient's documented comfort goal Outcome: Progressing as expected Goal: Reduction in pain sensation Outcome: Progressing as expected Problem: Falls, Risk of Goal: Absence of falls Outcome: Progressing as expected Problem: Infection Risk Goal: Absence of infection Outcome: Progressing as expected Problem: Glucose control Goal: Glucose level within specified parameters Outcome: Progressing as expected Problem: Skin integrity Impaired (Risk or Actual) Goal: Wound healing Outcome: Progressing as expected Goal: Prevention of new skin breakdown Outcome: Progressing as expected are Plan - Queta Fox RN - 02/14/2020 7:57 AM SENIOR OFFICE SUPPORT ASSISTANT SOSA Problem: Discharge Planning Goal: Absence of venous thromboembolism Outcome: Progressing as expected Goal: Adequate for discharge Outcome: Progressing as expected Goal: Effective communication Outcome: Progressing as expected Problem: Pain Goal: Control of pain at or below patient's documented comfort goal Outcome: Progressing as expected Goal: Reduction in pain sensation Outcome: Progressing as expected Problem: Falls, Risk of Goal: Absence of falls Outcome: Progressing as expected Problem: Infection Risk Goal: Absence of infection Outcome: Progressing as expected Problem: Glucose control Goal: Glucose level within specified parameters Outcome: Progressing as expected Problem: Skin integrity Impaired (Risk or Actual) Goal: Wound healing Outcome: Progressing as expected Goal: Prevention of new skin breakdown Outcome: Progressing as expected are Plan - Garima Walton RN - 02/13/2020 4:14 PM SENIOR OFFICE SUPPORT ASSISTANT SOSA Problem: Discharge Planning Goal: Absence of venous thromboembolism Outcome: Progressing as expected Goal: Adequate for discharge Outcome: Progressing as expected Goal: Effective communication Outcome: Progressing as expected Problem: Pain Goal: Control of pain at or below patient's documented comfort goal Outcome: Progressing as expected Goal: Reduction in pain sensation Outcome: Progressing as expected Problem: Falls, Risk of Goal: Absence of falls Outcome: Progressing as expected Problem: Infection Risk Goal: Absence of infection Outcome: Progressing as expected Problem: Glucose control Goal: Glucose level within specified parameters Outcome: Progressing as expected Problem: Skin integrity Impaired (Risk or Actual) Goal: Wound healing Outcome: Progressing as expected Goal: Prevention of new skin breakdown Outcome: Progressing as expected are Plan - Keely Hope RN - 02/12/2020 7:47 PM SENIOR OFFICE SUPPORT ASSISTANT SOSA Problem: Discharge Planning Goal: Absence of venous thromboembolism Outcome: Progressing as expected Goal: Adequate for discharge Outcome: Progressing as expected Goal: Effective communication Outcome: Progressing as expected Problem: Pain Goal: Control of pain at or below patient's documented comfort goal Outcome: Progressing as expected Goal: Reduction in pain sensation Outcome: Progressing as expected Problem: Falls, Risk of Goal: Absence of falls Outcome: Progressing as expected Problem: Infection Risk Goal: Absence of infection Outcome: Progressing as expected Problem: Glucose control Goal: Glucose level within specified parameters Outcome: Progressing as expected Problem: Skin integrity Impaired (Risk or Actual) Goal: Wound healing Outcome: Progressing as expected Goal: Prevention of new skin breakdown Outcome: Progressing as expected are Plan - Fawn Nava RN - 02/12/2020 4:49 AM SENIOR OFFICE SUPPORT ASSISTANT SOSA Problem: Discharge Planning Goal: Absence of venous thromboembolism Outcome: Progressing as expected Goal: Adequate for discharge Outcome: Progressing as expected Goal: Effective communication Outcome: Progressing as expected Problem: Pain Goal: Control of pain at or below patient's documented comfort goal Outcome: Progressing as expected Goal: Reduction in pain sensation Outcome: Progressing as expected Problem: Falls, Risk of Goal: Absence of falls Outcome: Progressing as expected Problem: Infection Risk Goal: Absence of infection Outcome: Progressing as expected Problem: Glucose control Goal: Glucose level within specified parameters Outcome: Progressing as expected Problem: Skin integrity Impaired (Risk or Actual) Goal: Wound healing Outcome: Progressing as expected Goal: Prevention of new skin breakdown Outcome: Progressing as expected D Nurse Note - Lynnette Wick RN - 02/12/2020 1:35 AM CSTSummary: need for case management consult It is suggested by this nurse that patient and family are in need for case management consult so that everyone is on the same page with what the patient wants for her care and ultimate wishes. D Nurse Note - Lynnette Wick RN - 02/12/2020 1:22 AM CSTSummary: admit Patient admitted to 2226 for diagnosis of acute kidney injury Patient agrees to admission, discussed plan of care with patient and family. Patient is awake, alert, oriented, resp reg unlabored, color appropriate for race, PIV intact No adverse reaction to medications administered while in ED Belongings with patient to unit Report to Kolton Augustine D Nurse Note - Patrica Hernandez RN - 02/12/2020 1:08 AM CSTCalled and spoke with lab, informed them that a urine culture was added to the patient orders. Lab states they will collect the culture. D Nurse Note - Lynnette Wick RN - 02/12/2020 1:00 AM CSTDiscussed with grand daughter asking about patient end of life wishes and if the family has addressed what the patient may want and she stated they have not discussed that with her. It was suggested that they may want to think about it and ask the patient what she wants or does not want. D Nurse Note - Lynnette Wick RN - 02/12/2020 12:37 AM CSTSummary: patient to be admitted Family requested that the patient be admitted but only if she can stay here, Dr Hutchins informed and will attempt to get patient hospitalized here in the Med Surg unit. Patient is awake and alert no distress, family at the bedside. D Nurse Note - Lynnette Wick RN - 02/11/2020 11:00 PM CSTSummary: undergrament changed Undergarment changed after straight cath for urine. Decubitus noted on the tailbone area and bandage was coming off, new Mepilex was applied to stage one decubitus D Nurse Note - Monica Youssef RN - 02/11/2020 10:35 PM CSTreort given to Lynnette CARRASCO D Nurse Note - Monica Youssef RN - 02/11/2020 10:14 PM CSTChanged patient colostomy bag. D Nurse Note - Monica Youssef RN - 02/11/2020 10:00 PM CSTDid a bladder scan and has only 51 ml urine. Will wait for urine sample. The provider notified. documented in this encounter Plan of Treatment Date Type Specialty Care Team Description 02/22/2020 Office Visit Internal Medicine Daniel Schmidt MD [address] [facility] [address] [place] [address] [phone] 02/27/2020 Nurse Visit Surgery Eleanor Renteria RN [address] [place] [address] [place] [address] 03/11/2020 Office Visit Urology Levar Mariscal MD [address] [place] [address]. [place], [place] [phone] 03/14/2020 Office Visit Surgery Apryl Nunez MD [address] [facility] [address] [place], [place] [id number] Name Type Priority Associated Diagnoses Date/Ti me URINE CULTURE LAB Routine 02/17/2020 12: 40 PM SENIOR OFFICE SUPPORT ASSISTANT SOSA Name Type Priority Associated Diagnoses Order S chedule PROTHROMBIN TIME / INR LAB Routine EVERY 24 HOURS (START TIME ADJUSTABLE) for 5 Days starting 2020 until 02/16/2020, 4 c ompleted PROTHROMBIN TIME / INR LAB Routine EVERY MORNING AT 0500 for 7 Days starting 0 02/18/2020 until 1, 4 completed Health Maintenance Due Date Last Done Comments EYE EXAM 10/28/1949 LDL-C 10/28/1949 URINE MICROALBUMIN 10/28/1949 Depression Screening 1951 FOOT EXAM 10/28/1957 DTaP,Tdap,and Td Vaccines (1 - 10/28/1958 Tdap) Zoster Recombinant Vaccine 10/28/1989 (SHINGRIX) (1 of 2) Medicare Wellness Visit 10/28/2004 PNEUMOCOCCAL VACCINES 65+ (2 of 2 11/18/2016 11/19/2015 - PPSV23) HgA1C 11/09/2018 05/10/2018 CREATININE (SERUM) 02/19/2021 02/20/2020, 02/19/2020, 02/18/2020, Additional history exists Osteoporosis Screening 11/21/2028 11/21/2018 INFLUENZA VACCINE Completed 10/27/2019, 11/19/2015 documented as of this encounter Procedures Procedure Name Priority Date/Time Associated Diagnosis Comme nts POCT GLUCOSE Routine 02/21/2020 4:48 Results for this (AUTOMATED) PM SENIOR OFFICE SUPPORT ASSISTANT SOSA procedure are i n the results section. POCT GLUCOSE Routine 02/21/2020 11:31 Results for this (AUTOMATED) AM SENIOR OFFICE SUPPORT ASSISTANT SOSA procedure are i n the results section. CBC WITH DIFF Routine 02/21/2020 10:47 Results fo r this AM SENIOR OFFICE SUPPORT ASSISTANT SOSA procedure are i n the results section. POCT GLUCOSE Routine 02/21/2020 7:48 Results for this (AUTOMATED) AM SENIOR OFFICE SUPPORT ASSISTANT SOSA procedure are i n the results section. PROTHROMBIN TIME / INR Routine 02/21/2020 7:38 R esults for this AM SENIOR OFFICE SUPPORT ASSISTANT SOSA procedure are i n the results section. BASIC METABOLIC PANEL Routine 02/21/2020 7:38 Re sults for this (NA, K, CL, CO2, AM SENIOR OFFICE SUPPORT ASSISTANT SOSA procedure a re in GLUCOSE, BUN, the results CREATININE, CA) section. POCT GLUCOSE Routine 02/20/2020 5:42 Results for this (AUTOMATED) PM SENIOR OFFICE SUPPORT ASSISTANT SOSA procedure are i n the results section. POCT GLUCOSE Routine 02/20/2020 11:59 Results for this (AUTOMATED) AM SENIOR OFFICE SUPPORT ASSISTANT SOSA procedure are i n the results section. POCT GLUCOSE Routine 02/20/2020 7:45 Results for this (AUTOMATED) AM SENIOR OFFICE SUPPORT ASSISTANT SOSA procedure are i n the results section. PROTHROMBIN TIME / INR Routine 02/20/2020 4:10 R esults for this AM SENIOR OFFICE SUPPORT ASSISTANT SOSA procedure are i n the results section. CBC WITH DIFF Routine 02/20/2020 4:10 Results fo r this AM SENIOR OFFICE SUPPORT ASSISTANT SOSA procedure are i n the results section. COMP. METABOLIC PANEL Routine 02/20/2020 4:10 Re sults for this ([id number]) AM SENIOR OFFICE SUPPORT ASSISTANT SOSA procedure are i n the results section. POCT GLUCOSE Routine 02/19/2020 5:05 Results for this (AUTOMATED) PM SENIOR OFFICE SUPPORT ASSISTANT SOSA procedure are i n the results section. POCT GLUCOSE Routine 02/19/2020 11:51 Results for this (AUTOMATED) AM SENIOR OFFICE SUPPORT ASSISTANT SOSA procedure are i n the results section. POCT GLUCOSE Routine 02/19/2020 7:39 Results for this (AUTOMATED) AM SENIOR OFFICE SUPPORT ASSISTANT SOSA procedure are i n the results section. PROTHROMBIN TIME / INR Routine 02/19/2020 5:15 R esults for this AM SENIOR OFFICE SUPPORT ASSISTANT SOSA procedure are i n the results section. CBC WITH DIFF Routine 02/19/2020 5:15 Results fo r this AM SENIOR OFFICE SUPPORT ASSISTANT SOSA procedure are i n the results section. COMP. METABOLIC PANEL Routine 02/19/2020 5:15 Re sults for this ([id number]) AM SENIOR OFFICE SUPPORT ASSISTANT SOSA procedure are i n the results section. POCT GLUCOSE Routine 02/18/2020 4:57 Results for this (AUTOMATED) PM SENIOR OFFICE SUPPORT ASSISTANT SOSA procedure are i n the results section. POCT GLUCOSE Routine 02/18/2020 11:35 Results for this (AUTOMATED) AM SENIOR OFFICE SUPPORT ASSISTANT SOSA procedure are i n the results section. POCT GLUCOSE Routine 02/18/2020 7:27 Results for this (AUTOMATED) AM SENIOR OFFICE SUPPORT ASSISTANT SOSA procedure are i n the results section. PROTHROMBIN TIME / INR Routine 02/18/2020 5:19 R esults for this AM SENIOR OFFICE SUPPORT ASSISTANT SOSA procedure are i n the results section. CBC WITH DIFF Routine 02/18/2020 5:19 Results fo r this AM SENIOR OFFICE SUPPORT ASSISTANT SOSA procedure are i n the results section. COMP. METABOLIC PANEL Routine 02/18/2020 5:19 Re sults for this ([id number]) AM SENIOR OFFICE SUPPORT ASSISTANT SOSA procedure are i n the results section. POCT GLUCOSE Routine 02/17/2020 5:15 Results for this (AUTOMATED) PM SENIOR OFFICE SUPPORT ASSISTANT SOSA procedure are i n the results section. URINE CULTURE Routine 02/17/2020 12:40 PM SENIOR OFFICE SUPPORT ASSISTANT SOSA URINALYSIS Routine 02/17/2020 12:40 Results for this PM SENIOR OFFICE SUPPORT ASSISTANT SOSA procedure are i n the results section. POCT GLUCOSE Routine 02/17/2020 12:38 Results for this (AUTOMATED) PM SENIOR OFFICE SUPPORT ASSISTANT SOSA procedure are i n the results section. BASIC METABOLIC PANEL STAT 02/17/2020 9:52 Re sults for this (NA, K, CL, CO2, AM SENIOR OFFICE SUPPORT ASSISTANT SOSA procedure a re in GLUCOSE, BUN, the results CREATININE, CA) section. POCT GLUCOSE Routine 02/17/2020 8:03 Results for this (AUTOMATED) AM SENIOR OFFICE SUPPORT ASSISTANT SOSA procedure are i n the results section. CBC WITH DIFF Routine 02/17/2020 3:58 Results fo r this AM SENIOR OFFICE SUPPORT ASSISTANT SOSA procedure are i n the results section. POCT GLUCOSE Routine 02/16/2020 8:42 Results for this (AUTOMATED) PM SENIOR OFFICE SUPPORT ASSISTANT SOSA procedure are i n the results section. POCT GLUCOSE Routine 02/16/2020 4:39 Results for this (AUTOMATED) PM SENIOR OFFICE SUPPORT ASSISTANT SOSA procedure are i n the results section. POCT GLUCOSE Routine 02/16/2020 11:50 Results for this (AUTOMATED) AM SENIOR OFFICE SUPPORT ASSISTANT SOSA procedure are i n the results section. POCT GLUCOSE Routine 02/16/2020 8:58 Results for this (AUTOMATED) AM SENIOR OFFICE SUPPORT ASSISTANT SOSA procedure are i n the results section. N-TERMINAL PRO-BNP Routine 02/16/2020 3:41 Resul ts for this AM SENIOR OFFICE SUPPORT ASSISTANT SOSA procedure are i n the results section. PROTHROMBIN TIME / INR Routine 02/16/2020 3:41 R esults for this AM SENIOR OFFICE SUPPORT ASSISTANT SOSA procedure are i n the results section. CBC WITH DIFF Routine 02/16/2020 3:41 Results fo r this AM SENIOR OFFICE SUPPORT ASSISTANT SOSA procedure are i n the results section. COMP. METABOLIC PANEL Routine 02/16/2020 3:41 Re sults for this ([id number]) AM SENIOR OFFICE SUPPORT ASSISTANT SOSA procedure are i n the results section. POCT GLUCOSE Routine 02/15/2020 5:02 Results for this (AUTOMATED) PM SENIOR OFFICE SUPPORT ASSISTANT SOSA procedure are i n the results section. POCT GLUCOSE Routine 02/15/2020 11:48 Results for this (AUTOMATED) AM SENIOR OFFICE SUPPORT ASSISTANT SOSA procedure are i n the results section. POCT GLUCOSE Routine 02/15/2020 8:00 Results for this (AUTOMATED) AM SENIOR OFFICE SUPPORT ASSISTANT SOSA procedure are i n the results section. PROTHROMBIN TIME / INR Routine 02/15/2020 3:21 R esults for this AM SENIOR OFFICE SUPPORT ASSISTANT SOSA procedure are i n the results section. CBC WITH DIFF Routine 02/15/2020 3:21 Results fo r this AM SENIOR OFFICE SUPPORT ASSISTANT SOSA procedure are i n the results section. BASIC METABOLIC PANEL Routine 02/15/2020 3:21 Re sults for this (NA, K, CL, CO2, AM SENIOR OFFICE SUPPORT ASSISTANT SOSA procedure a re in GLUCOSE, BUN, the results CREATININE, CA) section. POCT GLUCOSE Routine 02/14/2020 5:00 Results for this (AUTOMATED) PM SENIOR OFFICE SUPPORT ASSISTANT SOSA procedure are i n the results section. POCT GLUCOSE Routine 02/14/2020 11:41 Results for this (AUTOMATED) AM SENIOR OFFICE SUPPORT ASSISTANT SOSA procedure are i n the results section. POCT GLUCOSE Routine 02/14/2020 8:08 Results for this (AUTOMATED) AM SENIOR OFFICE SUPPORT ASSISTANT SOSA procedure are i n the results section. PROTHROMBIN TIME / INR Routine 02/14/2020 5:30 R esults for this AM SENIOR OFFICE SUPPORT ASSISTANT SOSA procedure are i n the results section. CBC WITH DIFF Routine 02/14/2020 5:30 Results fo r this AM SENIOR OFFICE SUPPORT ASSISTANT SOSA procedure are i n the results section. COMP. METABOLIC PANEL Routine 02/14/2020 5:30 Re sults for this ([id number]) AM SENIOR OFFICE SUPPORT ASSISTANT SOSA procedure are i n the results section. POCT GLUCOSE Routine 02/13/2020 4:38 Results for this (AUTOMATED) PM SENIOR OFFICE SUPPORT ASSISTANT SOSA procedure are i n the results section. POCT GLUCOSE Routine 02/13/2020 11:56 Results for this (AUTOMATED) AM SENIOR OFFICE SUPPORT ASSISTANT SOSA procedure are i n the results section. COMP. METABOLIC PANEL Routine 02/13/2020 8:01 Re sults for this ([id number]) AM SENIOR OFFICE SUPPORT ASSISTANT SOSA procedure are i n the results section. POCT GLUCOSE Routine 02/13/2020 7:56 Results for this (AUTOMATED) AM SENIOR OFFICE SUPPORT ASSISTANT SOSA procedure are i n the results section. PROTHROMBIN TIME / INR Routine 02/13/2020 5:19 R esults for this AM SENIOR OFFICE SUPPORT ASSISTANT SOSA procedure are i n the results section. CBC WITH DIFF Routine 02/13/2020 5:19 Results fo r this AM SENIOR OFFICE SUPPORT ASSISTANT SOSA procedure are i n the results section. POCT GLUCOSE Routine 02/12/2020 4:47 Results for this (AUTOMATED) PM SENIOR OFFICE SUPPORT ASSISTANT SOSA procedure are i n the results section. WOUND/ASPIRATE OR Routine 02/12/2020 3:31 Result s for this ABSCESS CULTURE PM SENIOR OFFICE SUPPORT ASSISTANT SOSA procedure ar e in the results section. ASPIRATE OR ABSCESS Routine 02/12/2020 3:31 Resu lts for this CULTURE(AEROBIC/ANAERO PM SENIOR OFFICE SUPPORT ASSISTANT SOSA proce dure are in BIC) the results section. POCT GLUCOSE Routine 02/12/2020 11:44 Results for this (AUTOMATED) AM SENIOR OFFICE SUPPORT ASSISTANT SOSA procedure are i n the results section. POCT GLUCOSE Routine 02/12/2020 7:29 Results for this (AUTOMATED) AM SENIOR OFFICE SUPPORT ASSISTANT SOSA procedure are i n the results section. URINE CULTURE STAT 02/12/2020 5:14 Chest pain, Results fo r this AM SENIOR OFFICE SUPPORT ASSISTANT SOSA unspecified type procedure a re in the results section. COMP. METABOLIC PANEL Routine 02/12/2020 3:09 Re sults for this ([id number]) AM SENIOR OFFICE SUPPORT ASSISTANT SOSA procedure are i n the results section. CT ABDOMEN PELVIS WO STAT 02/12/2020 1:37 Transaminitis Re sults for this CONTRAST AM SENIOR OFFICE SUPPORT ASSISTANT SOSA procedure are i n the results section. URINALYSIS STAT 02/11/2020 10:58 Chest pain, Results for this PM SENIOR OFFICE SUPPORT ASSISTANT SOSA unspecified type procedure a re in the results section. XR CHEST 1 VW STAT 02/11/2020 9:47 Chest pain, Results fo r this PM SENIOR OFFICE SUPPORT ASSISTANT SOSA unspecified type procedure a re in the results section. LAB ONLY COVID Routine 02/11/2020 9:42 Chest pain, Results f or this INTERPRETATION PM SENIOR OFFICE SUPPORT ASSISTANT SOSA unspecified type procedure are in the results section. COVID-19 (ID NOW RAPID STAT 02/11/2020 9:42 Chest pain, R esults for this TESTING) PM SENIOR OFFICE SUPPORT ASSISTANT SOSA unspecified type procedure a re in the results section. PROTHROMBIN TIME / INR STAT 02/11/2020 9:41 Chest pain, R esults for this PM SENIOR OFFICE SUPPORT ASSISTANT SOSA unspecified type procedure a re in the results section. CBC WITH DIFF STAT 02/11/2020 9:41 Chest pain, Results fo r this PM SENIOR OFFICE SUPPORT ASSISTANT SOSA unspecified type procedure a re in the results section. BASIC METABOLIC PANEL STAT 02/11/2020 9:41 Chest pain, Re sults for this (NA, K, CL, CO2, PM SENIOR OFFICE SUPPORT ASSISTANT SOSA unspecified type procedu re are in GLUCOSE, BUN, the results CREATININE, CA) section. HEPATIC FUNCTION PANEL STAT 02/11/2020 9:41 Chest pain, R esults for this ([id number]) PM SENIOR OFFICE SUPPORT ASSISTANT SOSA unspecified type procedure a re in (ALB,T.PRO,BILI the results T,BU/BC,ALT,AST,ALK section. PHOS) TROPONIN I STAT 02/11/2020 9:41 Chest pain, Results for this PM SENIOR OFFICE SUPPORT ASSISTANT SOSA unspecified type procedure a re in the results section. MAGNESIUM STAT 02/11/2020 9:41 Chest pain, Results for this PM SENIOR OFFICE SUPPORT ASSISTANT SOSA unspecified type procedure a re in the results section. LIPASE STAT 02/11/2020 9:41 Chest pain, Results for this PM SENIOR OFFICE SUPPORT ASSISTANT SOSA unspecified type procedure a re in the results section. LACTIC ACID WHOLE STAT 02/11/2020 9:40 Chest pain, Result s for this BLOOD PM SENIOR OFFICE SUPPORT ASSISTANT SOSA unspecified type procedure a re in the results section. HB ECG ROUTINE & STAT 02/11/2020 9:10 Chest pain, RHYTHM STRIP PM SENIOR OFFICE SUPPORT ASSISTANT SOSA unspecified type CONSENT/REFUSAL FOR Routine 02/11/2020 8:55 DIAGNOSIS AND PM SENIOR OFFICE SUPPORT ASSISTANT SOSA TREATMENT AGREEMENTS Routine 02/11/2020 12:01 AUTHORIZATIONS AND AM SENIOR OFFICE SUPPORT ASSISTANT SOSA IRREVOCABLE ASSIGNMENTS (FORM 2000) documented in this encounter Results POCT GLUCOSE (AUTOMATED) (02/21/2020 4:48 PM SENIOR OFFICE SUPPORT ASSISTANT SOSA) Pathologist Sig [facility] POCT GLU 112 (H) 70 - 110 mg/dL [facility] Specimen Blood Performing Organization Address City/[facility]/Zipcode Phone Number [facility] CLIA: [id number] [place] [address] POCT GLUCOSE (AUTOMATED) (02/21/2020 11:31 AM SENIOR OFFICE SUPPORT ASSISTANT SOSA) [facility] POCT GLU 109 70 - 110 mg/dL [facility] Specimen Blood Performing Organization Address City/[facility]/Zipcode Phone Number [facility] CLIA: [id number] [place] [address] [facility] CBC WITH DIFF (02/21/2020 10:47 AM SENIOR OFFICE SUPPORT ASSISTANT SOSA) [facility] WBC 12.47 (H) 4.30 - 11.10 [facility] 10*3/L [facility] RBC 3.09 (L) 3.93 - 5.25 [facility] 10*6/L [facility] HGB 8.6 (L) 11.6 - 15.0 [facility] g/dL [facility] HCT 27.6 (L) 35.7 - 45.2 % [facility] MCV 89.3 80.6 - 95.5 fL [facility] MCH 27.8 25.9 - 32.8 pg [facility] MCHC 31.2 (L) 31.6 - 35.1 [facility] g/dL [facility] RDW-SD 52.1 (H) 39.0 - 49.9 fL [facility] RDW-CV 15.9 (H) 12.0 - 15.5 % [facility] PLT 388 (H) 166 - 358 [facility] 10*3/L [facility] MPV 9.0 (L) 9.5 - 12.9 fL [facility] NRBC/100 WBC 0.0 0.0 - 10.0 /100 [facility] WBCs [facility] NRBC x10^3 <0.01 10*3/L [facility] GRAN MAT (NEUT) % 77.4 % [facility] IMM GRAN % 0.80 % [facility] LYMPH % 14.7 % [facility] MONO % 6.3 % [facility] EOS % 0.2 % [facility] BASO % 0.6 % [facility] GRAN MAT x10^3(ANC) 9.65 (H) 1.88 - 7.09 [facility] 10*3/uL [facility] IMM GRAN x10^3 0.10 (H) 0.00 - 0.06 [facility] 10*3/uL HOSPITAL LABORATORY LYMPH x10^3 1.83 1.32 - 3.29 [facility] 10*3/uL HOSPITAL LABORATORY MONO x10^3 0.79 0.33 - 0.92 [facility] 10*3/uL HOSPITAL LABORATORY EOS x10^3 0.03 0.03 - 0.39 [facility] 10*3/uL [facility] BASO x10^3 0.07 0.01 - 0.07 [facility] 10*3/uL [facility] Specimen Blood - ARM, LEFT Performing Organization Address [facility] Phone Number [facility] CLIA: [id number] [place] [address] [place] [address] POCT GLUCOSE (AUTOMATED) (02/21/2020 7:48 AM SENIOR OFFICE SUPPORT ASSISTANT SOSA) [facility] POCT GLU 88 70 - 110 mg/dL [facility] Specimen Blood Performing Organization Address [facility] Phone Number [facility] CLIA: [id number] [place] [address] BASIC METABOLIC PANEL (NA, K, CL, CO2, GLUCOSE, BUN, CREATININE, CA) (02/21/2020 7:38 AM SENIOR OFFICE SUPPORT ASSISTANT SOSA) [facility] NA 133 (L) 135 - 145 [facility] mmol/L [facility] K 3.9 3.5 - 5.0 [facility] mmol/L [facility] CL 97 (L) 98 - 108 mmol/L [facility] CO2 TOTAL 32 (H) 23 - 31 mmol/L [facility] AGAP 4 2 - 16 [facility] BUN 15 7 - 23 mg/dL [facility] GLUCOSE 84 70 - 110 mg/dL [facility] CREATININE 0.91 0.50 - 1.04 [facility] mg/dL [facility] CALCIUM 7.9 (L) 8.6 - 10.6 [facility] mg/dL [facility] eGFR Calculation 59.5 mL/min/1.73m2 [facility] ([facility] Portuguese) eGFR Calculation 72.1 mL/min/1.73m2 [facility] () [facility] Specimen Blood - ARM, LEFT Narrative Performed At [facility] Glomerular Filtration Rate (GFR) [facility] and Staging of Kidney Disease* [...] abnormalities in imaging tests). Performing Organization Address City/[facility]/Zipcode Phone Number [facility] CLIA: [id number] [place] [address] PROTHROMBIN TIME / INR (02/21/2020 7:38 AM SENIOR OFFICE SUPPORT ASSISTANT SOSA) PROTIME PATIENT 17.2 (H) 12.0 - 14.7 [facility] LABORATORY INR 1.5Comment: Normal [facility] INR <1.1; Warfarin [facility] Therapeutic range LABORATORY 2.0 to 3.0 or 2.5 to 3.5, depending upon the indications. Specimen Blood - ARM, LEFT Performing Organization Address [facility] Phone Number [facility] CLIA: [id number] [place] [address] POCT GLUCOSE (AUTOMATED) (02/20/2020 5:42 PM SENIOR OFFICE SUPPORT ASSISTANT SOSA) Pathologist Sig nature POCT GLU 120 (H) 70 - 110 mg/dL [facility] LABORATORY Specimen Blood Performing Organization Address [facility] Phone Number [facility] CLIA: [id number] [place] [address] POCT GLUCOSE (AUTOMATED) (02/20/2020 11:59 AM SENIOR OFFICE SUPPORT ASSISTANT SOSA) Pathologist Sig [facility] POCT GLU 118 (H) 70 - 110 mg/dL [facility] LABORATORY Specimen Blood Performing Organization Address [facility] Phone Number [facility] CLIA: [id number] [place] [address] POCT GLUCOSE (AUTOMATED) (02/20/2020 7:45 AM SENIOR OFFICE SUPPORT ASSISTANT SOSA) [facility] POCT GLU 108 70 - 110 mg/dL [facility] LABORATORY Specimen Blood Performing Organization Address [facility] Phone Number [facility] CLIA: [id number] [place] [address] COMP. METABOLIC PANEL ([id number]) (02/20/2020 4:10 AM SENIOR OFFICE SUPPORT ASSISTANT SOSA) Pathologist Sig nature NA 133 (L) 135 - 145 [facility] mmol/L [facility] LABORATORY K 4.0 3.5 - 5.0 [facility] mmol/L [facility] LABORATORY CL 95 (L) 98 - 108 mmol/L [facility] LABORATORY CO2 TOTAL 34 (H) 23 - 31 mmol/L [facility] LABORATORY AGAP 4 2 - 16 [facility] LABORATORY BUN 16 7 - 23 mg/dL [facility] LABORATORY GLUCOSE 101 70 - 110 mg/dL [facility] LABORATORY CREATININE 0.98 0.50 - 1.04 [facility] mg/dL [facility] LABORATORY TOTAL BILI 0.8 0.1 - 1.1 mg/dL [facility] LABORATORY CALCIUM 7.8 (L) 8.6 - 10.6 [facility] mg/dL [facility] LABORATORY T PROTEIN 5.7 (L) 6.3 - 8.2 g/dL [facility] LABORATORY ALBUMIN 2.5 (L) 3.5 - 5.0 g/dL [facility] ALK PHOS 163 (H) 34 - 122 U/L [facility] ALTv 38 (H) 5 - 35 U/L [facility] LABORATORY AST(SGOT) 56 (H) 13 - 40 U/L [facility] eGFR Calculation 54.6 mL/min/1.73m2 [facility] ([facility] LABORATORY Portuguese) eGFR Calculation 66.2 mL/min/1.73m2 [facility] () [facility] LABORATORY Specimen Blood - HAND, LEFT Narrative Performed At Association of Glomerular Filtration Rate (GFR) [facility] LABORATORY and Staging of Kidney Disease* [...] tests). Performing Organization Address City/State/Zipcode Phone Number [facility] CLIA: [id number] [place] [address] CBC WITH DIFF (02/20/2020 4:10 AM SENIOR OFFICE SUPPORT ASSISTANT [facility]OS[facility]) [facility] WBC 11.33 (H) 4.30 - 11.10 [facility] 10*3/L [facility] LABORATORY RBC 2.54 (L) 3.93 - 5.25 [facility] 10*6/L HOSPITAL LABORATORY HGB 7.2 (L) 11.6 - 15.0 [facility] g/dL HOSPITAL LABORATORY HCT 21.9 (L) 35.7 - 45.2 % [facility] LABORATORY MCV 86.2 80.6 - 95.5 fL [facility] LABORATORY MCH 28.3 25.9 - 32.8 pg [facility] LABORATORY MCHC 32.9 31.6 - 35.1 [facility] g/dL [facility] LABORATORY RDW-SD 49.8 39.0 - 49.9 fL [facility] LABORATORY RDW-CV 15.9 (H) 12.0 - 15.5 % [facility] LABORATORY PLT 368 (H) 166 - 358 [facility] 10*3/L [facility] LABORATORY MPV 9.2 (L) 9.5 - 12.9 fL [facility] LABORATORY NRBC/100 WBC 0.0 0.0 - 10.0 /100 [facility] WBCs [facility] LABORATORY NRBC x10^3 <0.01 10*3/L [facility] LABORATORY GRAN MAT (NEUT) % 70.6 % [facility] LABORATORY IMM GRAN % 0.70 % [facility] LABORATORY LYMPH % 19.6 % [facility] LABOR[facility] MONO % 7.2 % [facility] LAB[facility] EOS % 1.3 % [facility] LABORATORY BASO % 0.6 % [facility] LABORATORY GRAN MAT x10^3(ANC) 7.99 (H) 1.88 - 7.09 [facility] 10*3/uL HOSPITAL LABORATORY IMM GRAN x10^3 0.08 (H) 0.00 - 0.06 [facility] 10*3/uL HOSPITAL LABORATORY LYMPH x10^3 2.22 1.32 - 3.29 [facility] 10*3/uL HOSPITAL LABORATORY MONO x10^3 0.82 0.33 - 0.92 [facility] 10*3/uL HOSPITAL LABORATORY EOS x10^3 0.15 0.03 - 0.39 [facility] 10*3/uL HOSPITAL LABORATORY BASO x10^3 0.07 0.01 - 0.07 [facility] 10*3/uL HOSPITAL LABORATORY Specimen Blood - HAND, LEFT Performing Organization Address City/State/Zipcode Phone Number [facility] CLIA: [id number] [place] [address] PROTHROMBIN TIME / INR (02/20/2020 4:10 AM SENIOR OFFICE SUPPORT ASSISTANT SOSA) PROTIME PATIENT 23.8 (H) 12.0 - 14.7 [facility] LABORATORY INR 2.2Comment: Normal [facility] INR <1.1; Warfarin [facility] Therapeutic range LABORATORY 2.0 to 3.0 or 2.5 to 3.5, depending upon the indications. Specimen Blood - HAND, LEFT Performing Organization Address [facility] Phone Number [facility] CLIA: [id number] [place] [address] [facility] POCT GLUCOSE (AUTOMATED) (02/19/2020 5:05 PM SENIOR OFFICE SUPPORT ASSISTANT SOSA) Pathologist Sig nature POCT GLU 94 70 - 110 mg/dL [facility] LABORATORY Specimen Blood Performing Organization Address [facility] Phone Number [facility] CLIA: [id number] [place] [address] [facility] POCT GLUCOSE (AUTOMATED) (02/19/2020 11:51 AM SENIOR OFFICE SUPPORT ASSISTANT SOSA) Pathologist Sig nature POCT GLU 110 70 - 110 mg/dL [facility] LABORATORY Specimen Blood Performing Organization Address [facility] Phone Number [facility] CLIA: [id number] [place] [address] [facility] POCT GLUCOSE (AUTOMATED) (02/19/2020 7:39 AM SENIOR OFFICE SUPPORT ASSISTANT SOSA) Pathologist Sig nature POCT GLU 100 70 - 110 mg/dL [facility] LABORATORY Specimen Blood Performing Organization Address [facility] Phone Number [facility] CLIA: [id number] [place] [address] COMP. METABOLIC PANEL ([id number]) (02/19/2020 5:15 AM SENIOR OFFICE SUPPORT ASSISTANT SOSA) Pathologist Sig nature NA 133 (L) 135 - 145 [facility] mmol/L [facility] LABORATORY K 3.7 3.5 - 5.0 [facility] mmol/L [facility] LABORATORY CL 98 98 - 108 mmol/L [facility] LABORATORY CO2 TOTAL 32 (H) 23 - 31 mmol/L [facility] LABORATORY AGAP 3 2 - 16 [facility] LABORATORY BUN 16 7 - 23 mg/dL [facility] GLUCOSE 85 70 - 110 mg/dL [facility] CREATININE 0.82 0.50 - 1.04 [facility] mg/dL [facility] LABORATORY TOTAL BILI 0.7 0.1 - 1.1 mg/dL [facility] LABORATORY CALCIUM 7.7 (L) 8.6 - 10.6 [facility] mg/dL [facility] LABORATORY T PROTEIN 5.7 (L) 6.3 - 8.2 g/dL [facility] LABORATORY ALBUMIN 2.5 (L) 3.5 - 5.0 g/dL [facility] ALK PHOS 169 (H) 34 - 122 U/L [facility] ALTv 40 (H) 5 - 35 U/L [facility] LABORATORY AST(SGOT) 57 (H) 13 - 40 U/L [facility] LABORATORY eGFR Calculation 67.1 mL/min/1.73m2 [facility] ([facility] LABORATORY Portuguese) eGFR Calculation 81.3 mL/min/1.73m2 [facility] () [facility] LABORATORY Specimen Blood - VENOUS Narrative Performed At Association of Glomerular Filtration Rate (GFR) [facility] LABORATORY and Staging of Kidney Disease* [...] tests). Performing Organization Address City/State/Zipcode Phone Number [facility] CLIA: [id number] [place] [address] CBC WITH DIFF (02/19/2020 5:15 AM SENIOR OFFICE SUPPORT ASSISTANT SOSA) Pathologist Sig nature WBC 9.16 4.30 - 11.10 [facility] 10*3/L [facility] LABORATORY RBC 2.81 (L) 3.93 - 5.25 [facility] 10*6/L [facility] LABORATORY HGB 8.0 (L) 11.6 - 15.0 [facility] g/dL [facility] LABORATORY HCT 24.0 (L) 35.7 - 45.2 % [facility] LABORATORY MCV 85.4 80.6 - 95.5 fL [facility] LABORATORY MCH 28.5 25.9 - 32.8 pg [facility] LABORATORY MCHC 33.3 31.6 - 35.1 [facility] g/dL [facility] LABORATORY RDW-SD 49.9 39.0 - 49.9 fL [facility] LABORATORY RDW-CV 15.9 (H) 12.0 - 15.5 % [facility] LABORATORY PLT 353 166 - 358 [facility] 10*3/L [facility] LABORATORY MPV 9.2 (L) 9.5 - 12.9 fL [facility] LABORATORY NRBC/100 WBC 0.0 0.0 - 10.0 /100 [facility] WBCs [facility] LABORATORY NRBC x10^3 <0.01 10*3/L [facility] LABORATORY GRAN MAT (NEUT) % 62.0 % [facility] LABORATORY IMM GRAN % 1.00 % [facility] LABORATORY LYMPH % 27.7 % [facility] LABORATORY MONO % 7.4 % [facility] LABORATORY EOS % 1.1 % [facility] LABORATORY BASO % 0.8 % [facility] LABORATORY GRAN MAT x10^3(ANC) 5.68 1.88 - 7.09 [facility] 10*3/uL [facility] LABORATORY IMM GRAN x10^3 0.09 (H) 0.00 - 0.06 [facility] 10*3/uL HOSPITAL LABORATORY LYMPH x10^3 2.54 1.32 - 3.29 [facility] 10*3/uL HOSPITAL LABORATORY MONO x10^3 0.68 0.33 - 0.92 [facility] 10*3/uL HOSPITAL LABORATORY EOS x10^3 0.10 0.03 - 0.39 [facility] 10*3/uL HOSPITAL LABORATORY BASO x10^3 0.07 0.01 - 0.07 [facility] 10*3/uL [facility] LABORATORY Specimen Blood - VENOUS Performing Organization Address City/[facility] Phone Number [facility] CLIA: [id number] [place] [address] PROTHROMBIN TIME / INR (02/19/2020 5:15 AM SENIOR OFFICE SUPPORT ASSISTANT SOSA) PROTIME PATIENT 42.3 (H) 12.0 - 14.7 [facility] LABORATORY INR 4.7 (HH)Comment: [facility] Normal INR <1.1; [facility] Warfarin LABORATORY Therapeutic range 2.0 to 3.0 or 2.5 to 3.5, depending upon the indications. Specimen Blood - VENOUS Performing Organization Address [facility] Phone Number [facility] CLIA: [id number] [place] [address] POCT GLUCOSE (AUTOMATED) (02/18/2020 4:57 PM SENIOR OFFICE SUPPORT ASSISTANT SOSA) Pathologist Sig nature POCT GLU 120 (H) 70 - 110 mg/dL [facility] LABORATORY Specimen Blood Performing Organization Address City/[facility] Facility[facility] Phone Number [facility] CLIA: [id number] [place] [address] POCT GLUCOSE (AUTOMATED) (02/18/2020 11:35 AM SENIOR OFFICE SUPPORT ASSISTANT SOSA) Pathologist Sig nature POCT GLU 139 (H) 70 - 110 mg/dL [facility] LABORATORY Specimen Blood Performing Organization Address [facility] Phone Number [facility] CLIA: [id number] [place] [address] POCT GLUCOSE (AUTOMATED) (02/18/2020 7:27 AM SENIOR OFFICE SUPPORT ASSISTANT SOSA) Pathologist Sig nature POCT GLU 148 (H) 70 - 110 mg/dL [facility] LABORATORY Specimen Blood Performing Organization Address City/[facility]/Zipcode Phone Number [facility] CLIA: [id number] [place] [address] [address] PROTHROMBIN TIME / INR (02/18/2020 5:19 AM SENIOR OFFICE SUPPORT ASSISTANT SOSA) PROTIME PATIENT 35.2 (H) 12.0 - 14.7 [facility] Seconds [facility] LABORATORY INR 3.7Comment: Normal [facility] INR <1.1; Warfarin HOSPITAL Therapeutic range LABORATORY 2.0 to 3.0 or 2.5 to 3.5, depending upon the indications. Specimen Blood - VENOUS Performing Organization Address [facility] Facility[facility] Phone Number [facility] CLIA: [id number] [place] [address] [facility] COMP. METABOLIC PANEL ([id number]) (02/18/2020 5:19 AM SENIOR OFFICE SUPPORT ASSISTANT SOSA) [facility] NA 132 (L) 135 - 145 [facility] mmol/L [facility] LABORATORY K 3.9 3.5 - 5.0 [facility] mmol/L [facility] LABORATORY CL 99 98 - 108 mmol/L [facility] LABORATORY CO2 TOTAL 24 23 - 31 mmol/L [facility] LABORATORY AGAP 9 2 - 16 [facility] LABORATORY BUN 23 7 - 23 mg/dL [facility] LABORATORY GLUCOSE 107 70 - 110 mg/dL [facility] LABORATORY CREATININE 0.82 0.50 - 1.04 [facility] mg/dL [facility] LABORATORY TOTAL BILI 0.6 0.1 - 1.1 mg/dL [facility] LABORATORY CALCIUM 8.1 (L) 8.6 - 10.6 [facility] mg/dL [facility] LABORATORY T PROTEIN 5.8 (L) 6.3 - 8.2 g/dL [facility] LABORATORY ALBUMIN 2.6 (L) 3.5 - 5.0 g/dL [facility] LABORATORY ALK PHOS 174 (H) 34 - 122 U/L [facility] LABORATORY ALTv 39 (H) 5 - 35 U/L [facility] LABORATORY AST(SGOT) 56 (H) 13 - 40 U/L [facility] LABORATORY eGFR Calculation 67.1 mL/min/1.73m2 [facility] ([facility] LABORATORY Portuguese) eGFR Calculation 81.3 mL/min/1.73m2 [facility] () [facility] LABORATORY Specimen Blood - VENOUS Narrative Performed At Association of Glomerular Filtration Rate (GFR) [facility] LABORATORY and Staging of Kidney Disease* [...] tests). Performing Organization Address City/State/Zipcode Phone Number [facility] CLIA: [id number] [place] [address] CBC WITH DIFF (02/18/2020 5:19 AM SENIOR OFFICE SUPPORT ASSISTANT SOSA) Pathologist Sig nature WBC 7.99 4.30 - 11.10 [facility] 10*3/L [facility] LABORATORY RBC 2.74 (L) 3.93 - 5.25 [facility] 10*6/L [facility] LABORATORY HGB 7.6 (L) 11.6 - 15.0 [facility] g/dL [facility] LABORATORY HCT 23.5 (L) 35.7 - 45.2 % [facility] LABORATORY MCV 85.8 80.6 - 95.5 fL [facility] LABORATORY MCH 27.7 25.9 - 32.8 pg [facility] LABORATORY MCHC 32.3 31.6 - 35.1 [facility] g/dL [facility] LABORATORY RDW-SD 48.1 39.0 - 49.9 fL [facility] LABORATORY RDW-CV 15.5 12.0 - 15.5 % [facility] LABORATORY PLT 371 (H) 166 - 358 [facility] 10*3/L HOSPITAL LABORATORY MPV 9.5 9.5 - 12.9 fL [facility] LABORATORY NRBC/100 WBC 0.0 0.0 - 10.0 /100 [facility] WBCs [facility] LABORATORY NRBC x10^3 <0.01 10*3/L [facility] LABORATORY GRAN MAT (NEUT) % 64.6 % [facility] LABORATORY IMM GRAN % 1.00 % [facility] LABOR[facility]ORY LYMPH % 22.9 % [facility] MONO % 8.3 % [facility] LAB[facility] EOS % 2.3 % [facility] LABORAT[facility] BASO % 0.9 % [facility] LABORATORY GRAN MAT x10^3(ANC) 5.17 1.88 - 7.09 [facility] 10*3/uL HOSPITAL LABORATORY IMM GRAN x10^3 0.08 (H) 0.00 - 0.06 [facility] 10*3/uL HOSPITAL LABORATORY LYMPH x10^3 1.83 1.32 - 3.29 [facility] 10*3/uL HOSPITAL LABORATORY MONO x10^3 0.66 0.33 - 0.92 [facility] 10*3/uL HOSPITAL LABORATORY EOS x10^3 0.18 0.03 - 0.39 [facility] 10*3/uL HOSPITAL LABORATORY BASO x10^3 0.07 0.01 - 0.07 [facility] 10*3/uL [facility] LABORATORY Specimen Blood - VENOUS Performing Organization Address City/[facility]/Zipcode Phone Number [facility] CLIA: [id number] [place] [address] POCT GLUCOSE (AUTOMATED) (02/17/2020 5:15 PM SENIOR OFFICE SUPPORT ASSISTANT SOSA) [facility] POCT GLU 132 (H) 70 - 110 mg/dL [facility] LABORATORY Specimen Blood Performing Organization Address [facility] Facility[facility] Phone Number [facility] CLIA: [id number] [place] [address] URINALYSIS (02/17/2020 12:40 PM SENIOR OFFICE SUPPORT ASSISTANT SOSA) Pathologist Sig nature APPEARANCE Turbid (A) Clear [facility] LABORAT[facility] COLOR Yellow Yellow [facility] PH 5.0 4.8 - 8.0 [facility] LAB[facility] SP GRAVITY 1.009 1.003 - 1.030 [facility] LAB[facility] GLU U QUAL Normal Normal [facility] BLOOD 2+ (A) Negative [facility] KETONES Negative Negative [facility] PROTEIN 100 mg/dL (A) Negative [facility] UROBILIN Normal Normal [facility] BILIRUBIN Negative Negative [facility] NITRITE Negative Negative [facility] LAB[facility] LEUK YAMINI 500/uL (A) Negative [facility] LAB[facility] RBC/HPF 161 (H) 0 - 3 HPF [facility] LAB[facility] WBC/HPF >182 (H) 0 - 5 HPF [facility] LAB[facility] BACTERIA Many (A) Negative [facility] LAB[facility] WBC CLUMPS 25 (H) <=1 HPF [facility] LAB[facility] YEAST BUD 100 (H) <=1 HPF [facility] LABORATORY Specimen Urine - URINE, CLEAN CATCH Performing Organization Address [facility] Phone Number [facility] CLIA: [id number] [place] [address] POCT GLUCOSE (AUTOMATED) (02/17/2020 12:38 PM SENIOR OFFICE SUPPORT ASSISTANT SOSA) [facility] nature POCT GLU 85 70 - 110 mg/dL [facility] LABORATORY Specimen Blood Performing Organization Address [facility] Phone Number [facility] CLIA: [id number] [place] [address] [place] [address] BASIC METABOLIC PANEL (NA, K, CL, CO2, GLUCOSE, BUN, CREATININE, CA) (02/17/2020 9:52 AM SENIOR OFFICE SUPPORT ASSISTANT SOSA) Pathologist Sig nature NA 130 (L) 135 - 145 [facility] mmol/L [facility] LABORATORY K 4.1 3.5 - 5.0 [facility] mmol/L [facility] LABORATORY CL 109 (H) 98 - 108 mmol/L [facility] LABORATORY CO2 TOTAL 13 (L) 23 - 31 mmol/L [facility] LABORATORY AGAP 8 2 - 16 [facility] LAB[facility] BUN 22 7 - 23 mg/dL [facility] GLUCOSE 54 (L) 70 - 110 mg/dL [facility] LAB[facility] CREATININE 0.92 0.50 - 1.04 [facility] mg/dL [facility] LABORATORY CALCIUM 6.9 (L) 8.6 - 10.6 [facility] mg/dL [facility] LABORATORY eGFR Calculation 58.7 mL/min/1.73m2 [facility] ([facility] LABORATORY Portuguese) eGFR Calculation 71.2 mL/min/1.73m2 [facility] () [facility] LABORATORY Specimen Blood - ARM, LEFT Narrative Performed At Association of Glomerular Filtration Rate (GFR) [facility] LABORATORY and Staging of Kidney Disease* [...] abnormalities in imaging tests). Performing Organization Address [facility] Phone Number [facility] CLIA: [id number] [place] [address] POCT GLUCOSE (AUTOMATED) (02/17/2020 8:03 AM SENIOR OFFICE SUPPORT ASSISTANT SOSA) [facility] POCT GLU 73 70 - 110 mg/dL [facility] LABORATORY Specimen Blood Performing Organization Address [facility] Phone Number [facility] CLIA: [id number] [place] [address] [place] [address] CBC with Differential (02/17/2020 3:58 AM SENIOR OFFICE SUPPORT ASSISTANT SOSA) Pathologist Sig nature WBC 14.13 (H) 4.30 - 11.10 [facility] 10*3/L HOSPITAL LABORATORY RBC 3.46 (L) 3.93 - 5.25 [facility] 10*6/L HOSPITAL LABORATORY HGB 9.8 (L) 11.6 - 15.0 [facility] g/dL HOSPITAL LABORATORY HCT 29.9 (L) 35.7 - 45.2 % [facility] LABORATORY MCV 86.4 80.6 - 95.5 fL [facility] LABORATORY MCH 28.3 25.9 - 32.8 pg [facility] LABORAT[facility] MCHC 32.8 31.6 - 35.1 [facility] g/dL [facility] LABORATORY RDW-SD 48.8 39.0 - 49.9 fL [facility] LABORATORY RDW-CV 15.5 12.0 - 15.5 % [facility] LABORATORY PLT 473 (H) 166 - 358 [facility] 10*3/L [facility] LABORATORY MPV 9.8 9.5 - 12.9 fL [facility] LABORATORY NRBC/100 WBC 0.0 0.0 - 10.0 /100 [facility] WBCs [facility] LABORAT[facility] NRBC x10^3 <0.01 10*3/L [facility] GRAN MAT (NEUT) % 65.3 % [facility] IMM GRAN % 1.00 % [facility] LYMPH % 23.5 % [facility] MONO % 8.0 % [facility] EOS % 1.5 % [facility] BASO % 0.7 % [facility] GRAN MAT x10^3(ANC) 9.23 (H) 1.88 - 7.09 [facility] 10*3/uL HOSPITAL LAB[facility]ATORY IMM GRAN x10^3 0.14 (H) 0.00 - 0.06 [facility] 10*3/uL [facility] LYMPH x10^3 3.32 (H) 1.32 - 3.29 [facility] 10*3/uL [facility] MONO x10^3 1.13 (H) 0.33 - 0.92 [facility] 10*3/uL H[facility]PITAL LAB[facility] EOS x10^3 0.21 0.03 - 0.39 [facility] 10*3/uL [facility] BASO x10^3 0.10 (H) 0.01 - 0.07 [facility] 10*3/uL [facility] Specimen Blood - VENOUS Performing Organization Address [facility] Phone Number [facility] CLIA: [id number] [place] [address] POCT GLUCOSE (AUTOMATED) (02/16/2020 8:42 PM SENIOR OFFICE SUPPORT ASSISTANT [facility]) Pathologist Sig nature POCT GLU 88 70 - 110 mg/dL [facility] Specimen Blood Performing Organization Address [facility] Phone Number [facility] CLIA: [id number] [place] [address] POCT GLUCOSE (AUTOMATED) (02/16/2020 4:39 PM SENIOR OFFICE SUPPORT ASSISTANT SOSA) Pathologist Sig nature POCT GLU 89 70 - 110 mg/dL [facility] Specimen Blood Performing Organization Address [facility] Phone Number [facility] CLIA: [id number] [place] [address] POCT GLUCOSE (AUTOMATED) (02/16/2020 11:50 AM SENIOR OFFICE SUPPORT ASSISTANT SOSA) Pathologist Sig [facility] POCT GLU 94 70 - 110 mg/dL [facility] Specimen Blood Performing Organization Address [facility] Phone Number [facility] CLIA: [id number] [place], [place] [address] LABORATORY [address] POCT GLUCOSE (AUTOMATED) (02/16/2020 8:58 AM SENIOR OFFICE SUPPORT ASSISTANT SOSA) Pathologist Sig nature POCT GLU 92 70 - 110 mg/dL [facility] Specimen Blood Performing Organization Address [facility] Phone Number [facility] CLIA: [id number] [place] [address] N-TERMINAL PRO-BNP (02/16/2020 3:41 AM SENIOR OFFICE SUPPORT ASSISTANT SOSA) Pathologist Sig nature NT-proBNP 1,980 (H) <=450 pg/mL [facility] Specimen Blood - ARM, RIGHT Narrative Performed At Biotin has been reported to cause a negative [facility] bias, interpret results relative to patient's use of biotin. Performing Organization Address City/State/Zipcode Phone Number [facility] CLIA: [id number] [place] [address] COMP. METABOLIC PANEL (98089) (02/16/2020 3:41 AM SENIOR OFFICE SUPPORT ASSISTANT SOSA) NA 125 (L) 135 - 145 [facility] mmol/L [facility] K 4.8 3.5 - 5.0 [facility] mmol/L [facility] CL 96 (L) 98 - 108 mmol/L [facility] CO2 TOTAL 19 (L) 23 - 31 mmol/L [facility] AGAP 10 2 - 16 [facility] BUN 27 (H) 7 - 23 mg/dL [facility] GLUCOSE 79 70 - 110 mg/dL [facility] CREATININE 1.50 (H) 0.50 - 1.04 [facility] mg/dL [facility] TOTAL BILI 0.9 0.1 - 1.1 mg/dL [facility] CALCIUM 8.8 8.6 - 10.6 [facility] mg/dL [facility] T PROTEIN 7.8 6.3 - 8.2 g/dL [facility] ALBUMIN 3.5 3.5 - 5.0 g/dL [facility] ALK PHOS 201 (H) 34 - 122 U/L [facility] ALTv 44 (H) 5 - 35 U/L [facility] AST(SGOT) 67 (H) 13 - 40 U/L [facility] eGFR Calculation 33.4 mL/min/1.73m2 [facility] ([facility] LABORATORY Portuguese) eGFR Calculation 40.5 mL/min/1.73m2 [facility] () [facility] Specimen Blood - ARM, RIGHT Narrative Performed At Association of Glomerular Filtration Rate (GFR) [facility] and Staging of Kidney Disease* [...] abnormalities in imaging tests). Performing Organization Address [facility]/Zipcode Phone Number [facility] CLIA: [id number] [place] [address] PROTHROMBIN TIME / INR (02/16/2020 3:41 AM SENIOR OFFICE SUPPORT ASSISTANT SOSA) [facility] Signature PROTIME PATIENT 24.2 (H) 12.0 - 14.7 [facility] Seconds [facility] INR 2.3Comment: Normal [facility] INR <1.1; Warfarin HOSPITAL Therapeutic range LABORATORY 2.0 to 3.0 or 2.5 to 3.5, depending upon the indications. Specimen Blood - ARM, RIGHT Performing Organization Address [facility] Phone Number [facility] CLIA: [id number] [place] [address] CBC with Differential (02/16/2020 3:41 AM SENIOR OFFICE SUPPORT ASSISTANT SOSA) [facility] Sig nature WBC 13.72 (H) 4.30 - 11.10 [facility] 10*3/L [facility] RBC 3.44 (L) 3.93 - 5.25 [facility] 10*6/L [facility] HGB 9.5 (L) 11.6 - 15.0 [facility] g/dL HOSPITAL LABORATORY HCT 29.9 (L) 35.7 - 45.2 % [facility] MCV 86.9 80.6 - 95.5 fL [facility] MCH 27.6 25.9 - 32.8 pg [facility] MCHC 31.8 31.6 - 35.1 [facility] g/dL HOSPITAL LABORATORY RDW-SD 49.8 39.0 - 49.9 fL [facility] RDW-CV 15.7 (H) 12.0 - 15.5 % [facility] PLT 525 (H) 166 - 358 [facility] 10*3/L [facility] MPV 10.1 9.5 - 12.9 fL [facility] NRBC/100 WBC 0.0 0.0 - 10.0 /100 [facility] WBCs [facility] NRBC x10^3 <0.01 10*3/L [facility] GRAN MAT (NEUT) % 63.7 % [facility] IMM GRAN % 1.10 % [facility] LYMPH % 23.5 % [facility] MONO % 8.2 % [facility] EOS % 2.6 % [facility] BASO % 0.9 % [facility] GRAN MAT x10^3(ANC) 8.75 (H) 1.88 - 7.09 [facility] 10*3/uL [facility] IMM GRAN x10^3 0.15 (H) 0.00 - 0.06 [facility] 10*3/uL [facility] LYMPH x10^3 3.23 1.32 - 3.29 [facility] 10*3/uL [facility] MONO x10^3 1.12 (H) 0.33 - 0.92 [facility] 10*3/uL [facility] EOS x10^3 0.35 0.03 - 0.39 [facility] 10*3/uL [facility] BASO x10^3 0.12 (H) 0.01 - 0.07 [facility] 10*3/uL [facility] Specimen Blood - ARM, RIGHT Performing Organization Address City/[facility] Phone Number [facility] CLIA: [id number] [place] [address] POCT GLUCOSE (AUTOMATED) (02/15/2020 5:02 PM SENIOR OFFICE SUPPORT ASSISTANT SOSA) [facility] POCT GLU 99 70 - 110 mg/dL [facility] Specimen Blood Performing Organization Address City/[facility] Phone Number [facility] CLIA: [id number] [place] [address] [address] POCT GLUCOSE (AUTOMATED) (02/15/2020 11:48 AM SENIOR OFFICE SUPPORT ASSISTANT SOSA) Pathologist Sig nature POCT GLU 105 70 - 110 mg/dL [facility] Specimen Blood Performing Organization Address [facility] Phone Number [facility] CLIA: [id number] [place] [address] [facility] POCT GLUCOSE (AUTOMATED) (02/15/2020 8:00 AM SENIOR OFFICE SUPPORT ASSISTANT SOSA) Pathologist Sig nature POCT GLU 92 70 - 110 mg/dL [facility] Specimen Blood Performing Organization Address [facility] Phone Number [facility] CLIA: [id number] [place] [address] [facility] BASIC METABOLIC PANEL (NA, K, CL, CO2, GLUCOSE, BUN, CREATININE, CA) (02/15/2020 3:21 AM SENIOR OFFICE SUPPORT ASSISTANT SOSA) NA 128 (L) 135 - 145 [facility] mmol/L [facility] K 4.7 3.5 - 5.0 [facility] mmol/L [facility] CL 98 98 - 108 mmol/L [facility] CO2 TOTAL 21 (L) 23 - 31 mmol/L [facility] AGAP 9 2 - 16 [facility] BUN 26 (H) 7 - 23 mg/dL [facility] GLUCOSE 93 70 - 110 mg/dL [facility] CREATININE 1.28 (H) 0.50 - 1.04 [facility] mg/dL [facility] CALCIUM 9.1 8.6 - 10.6 [facility] mg/dL [facility] eGFR Calculation 40.1 mL/min/1.73m2 [facility] ([facility] LABORATORY Portuguese) eGFR Calculation 48.6 mL/min/1.73m2 [facility] () [facility] Specimen Blood - ARM, RIGHT Narrative Performed At Association of Glomerular Filtration Rate (GFR) [facility] and Staging of Kidney Disease* [...] abnormalities in imaging tests). Performing Organization Address [facility] Phone Number [facility] CLIA: [id number] [place] [address] PROTHROMBIN TIME / INR (02/15/2020 3:21 AM SENIOR OFFICE SUPPORT ASSISTANT SOSA) [facility] Signature PROTIME PATIENT 22.2 (H) 12.0 - 14.7 [facility] Seconds [facility] INR 2.1Comment: Normal [facility] INR <1.1; Warfarin [facility] Therapeutic range LABORATORY 2.0 to 3.0 or 2.5 to 3.5, depending upon the indications. Specimen Blood - ARM, RIGHT Performing Organization Address [facility] Phone Number [facility] CLIA: [id number] [place] [address] [address] CBC with Differential (02/15/2020 3:21 AM SENIOR OFFICE SUPPORT ASSISTANT SOSA) [facility] Sig nature WBC 11.92 (H) 4.30 - 11.10 [facility] 10*3/L [facility] RBC 3.12 (L) 3.93 - 5.25 [facility] 10*6/L [facility] HGB 8.9 (L) 11.6 - 15.0 [facility] g/dL [facility] HCT 26.8 (L) 35.7 - 45.2 % [facility] MCV 85.9 80.6 - 95.5 fL [facility] MCH 28.5 25.9 - 32.8 pg [facility] MCHC 33.2 31.6 - 35.1 [facility] g/dL [facility] RDW-SD 50.1 (H) 39.0 - 49.9 fL [facility] RDW-CV 16.0 (H) 12.0 - 15.5 % [facility] PLT 459 (H) 166 - 358 [facility] 10*3/L [facility] MPV 9.8 9.5 - 12.9 fL [facility] NRBC/100 WBC 0.0 0.0 - 10.0 /100 [facility] WBCs [facility] NRBC x10^3 <0.01 10*3/L [facility] GRAN MAT (NEUT) % 59.7 % [facility] IMM GRAN % 1.40 % [facility] LYMPH % 26.7 % [facility] MONO % 9.0 % [facility] EOS % 2.6 % [facility] BASO % 0.6 % [facility] GRAN MAT x10^3(ANC) 7.12 (H) 1.88 - 7.09 [facility] 10*3/uL [facility] IMM GRAN x10^3 0.17 (H) 0.00 - 0.06 [facility] 10*3/uL [facility] LYMPH x10^3 3.18 1.32 - 3.29 [facility] 10*3/uL [facility] MONO x10^3 1.07 (H) 0.33 - 0.92 [facility] 10*3/uL [facility] EOS x10^3 0.31 0.03 - 0.39 [facility] 10*3/uL [facility] BASO x10^3 0.07 0.01 - 0.07 [facility] 10*3/uL [facility] Specimen Blood - ARM, RIGHT Performing Organization Address City/State/Zipcode Phone Number [facility] CLIA: [id number] [place] [address] POCT GLUCOSE (AUTOMATED) (02/14/2020 5:00 PM SENIOR OFFICE SUPPORT ASSISTANT SOSA) Pathologist Sig nature POCT GLU 115 (H) 70 - 110 mg/dL [facility] Specimen Blood Performing Organization Address [facility] Phone Number [facility] CLIA: [id number] [place] [address] [facility] POCT GLUCOSE (AUTOMATED) (02/14/2020 11:41 AM SENIOR OFFICE SUPPORT ASSISTANT SOSA) Pathologist Sig nature POCT GLU 122 (H) 70 - 110 mg/dL [facility] Specimen Blood Performing Organization Address [facility] Phone Number [facility] CLIA: [id number] [place] [address] [address] POCT GLUCOSE (AUTOMATED) (02/14/2020 8:08 AM SENIOR OFFICE SUPPORT ASSISTANT SOSA) Pathologist Sig nature POCT GLU 100 70 - 110 mg/dL [facility] Specimen Blood Performing Organization Address [facility] Phone Number [facility] CLIA: [id number] [place] [address] [facility] PROTHROMBIN TIME / INR (02/14/2020 5:30 AM SENIOR OFFICE SUPPORT ASSISTANT SOSA) PROTIME PATIENT 21.9 (H) 12.0 - 14.7 [facility] LABORATORY INR 2.0Comment: Normal [facility] INR <1.1; Warfarin [facility] Therapeutic range LABORATORY 2.0 to 3.0 or 2.5 to 3.5, depending upon the indications. Specimen Blood - ARM, LEFT Performing Organization Address [facility] Phone Number [facility] CLIA: [id number] [place] [address] [place] [address] COMP. METABOLIC PANEL ([id number]) (02/14/2020 5:30 AM SENIOR OFFICE SUPPORT ASSISTANT SOSA) Pathologist Sig nature NA 131 (L) 135 - 145 [facility] mmol/L [facility] K 4.7 3.5 - 5.0 [facility] mmol/L [facility] CL 102 98 - 108 mmol/L [facility] CO2 TOTAL 19 (L) 23 - 31 mmol/L [facility] AGAP 10 2 - 16 [facility] BUN 24 (H) 7 - 23 mg/dL [facility] GLUCOSE 85 70 - 110 mg/dL [facility] CREATININE 1.03 0.50 - 1.04 [facility] mg/dL [facility] TOTAL BILI 0.8 0.1 - 1.1 mg/dL [facility] CALCIUM 8.5 (L) 8.6 - 10.6 [facility] mg/dL [facility] T PROTEIN 6.7 6.3 - 8.2 g/dL [facility] ALBUMIN 3.0 (L) 3.5 - 5.0 g/dL [facility] ALK PHOS 163 (H) 34 - 122 U/L [facility] ALTv 31 5 - 35 U/L [facility] AST(SGOT) 45 (H) 13 - 40 U/L [facility] eGFR Calculation 51.6 mL/min/1.73m2 [facility] ([facility] LABORATORY Portuguese) eGFR Calculation 62.5 mL/min/1.73m2 [facility] () [facility] Specimen Blood - ARM, LEFT Narrative Performed At Association of Glomerular Filtration Rate (GFR) [facility] and Staging of Kidney Disease* [...] tests). Performing Organization Address City/State/Zipcode Phone Number [facility] CLIA: [id number] [place] [address] CBC with Differential (02/14/2020 5:30 AM SENIOR OFFICE SUPPORT ASSISTANT SOSA) [facility] nature WBC 10.73 4.30 - 11.10 [facility] 10*3/L HOSPITAL LABORATORY RBC 3.45 (L) 3.93 - 5.25 [facility] 10*6/L HOSPITAL LABORATORY HGB 9.6 (L) 11.6 - 15.0 [facility] g/dL [facility] HCT 29.8 (L) 35.7 - 45.2 % [facility] MCV 86.4 80.6 - 95.5 fL [facility] MCH 27.8 25.9 - 32.8 pg [facility] MCHC 32.2 31.6 - 35.1 [facility] g/dL [facility] RDW-SD 50.9 (H) 39.0 - 49.9 fL [facility] RDW-CV 16.2 (H) 12.0 - 15.5 % [facility] PLT 396 (H) 166 - 358 [facility] 10*3/L [facility] MPV 10.5 9.5 - 12.9 fL [facility] NRBC/100 WBC 0.0 0.0 - 10.0 /100 [facility] WBCs [facility] NRBC x10^3 <0.01 10*3/L [facility] GRAN MAT (NEUT) % 62.7 % [facility] IMM GRAN % 1.40 % [facility] LYMPH % 24.4 % [facility] MONO % 9.3 % [facility] EOS % 1.5 % [facility] BASO % 0.7 % [facility] GRAN MAT x10^3(ANC) 6.72 1.88 - 7.09 [facility] 10*3/uL HOSPITAL LABORATORY IMM GRAN x10^3 0.15 (H) 0.00 - 0.06 [facility] 10*3/uL HOSPITAL LABORATORY LYMPH x10^3 2.62 1.32 - 3.29 [facility] 10*3/uL HOSPITAL LABORATORY MONO x10^3 1.00 (H) 0.33 - 0.92 [facility] 10*3/uL HOSPITAL LABORATORY EOS x10^3 0.16 0.03 - 0.39 [facility] 10*3/uL [facility] BASO x10^3 0.08 (H) 0.01 - 0.07 [facility] 10*3/uL [facility] Specimen Blood - ARM, LEFT Performing Organization Address [facility] Phone Number [facility] CLIA: [id number] [place] [address] POCT GLUCOSE (AUTOMATED) (02/13/2020 4:38 PM SENIOR OFFICE SUPPORT ASSISTANT SOSA) Pathologist Sig [employer] POCT GLU 129 (H) 70 - 110 mg/dL [facility] Specimen Blood Performing Organization Address [facility] Phone Number [facility] CLIA: [id number] [place] [address] POCT GLUCOSE (AUTOMATED) (02/13/2020 11:56 AM SENIOR OFFICE SUPPORT ASSISTANT SOSA) Pathologist Sig nature POCT GLU 182 (H) 70 - 110 mg/dL [facility] Specimen Blood Performing Organization Address [facility] Phone Number [facility] CLIA: [id number] [place] [address] COMP. METABOLIC PANEL ([id number]) (02/13/2020 8:01 AM SENIOR OFFICE SUPPORT ASSISTANT SOSA) Pathologist Sig nature NA 133 (L) 135 - 145 [facility] mmol/L [facility] K 4.5 3.5 - 5.0 [facility] mmol/L [facility] CL 103 98 - 108 mmol/L [facility] CO2 TOTAL 19 (L) 23 - 31 mmol/L [facility] AGAP 11 2 - 16 [facility] BUN 24 (H) 7 - 23 mg/dL [facility] GLUCOSE 76 70 - 110 mg/dL [facility] CREATININE 0.98 0.50 - 1.04 [facility] mg/dL [facility] TOTAL BILI 0.7 0.1 - 1.1 mg/dL [facility] CALCIUM 8.3 (L) 8.6 - 10.6 [facility] mg/dL [facility] T PROTEIN 6.4 6.3 - 8.2 g/dL [facility] ALBUMIN 2.9 (L) 3.5 - 5.0 g/dL [facility] ALK PHOS 153 (H) 34 - 122 U/L [facility] ALTv 30 5 - 35 U/L [facility] AST(SGOT) 43 (H) 13 - 40 U/L [facility] eGFR Calculation 54.6 mL/min/1.73m2 [facility] ([facility] LABORATORY Portuguese) eGFR Calculation 66.2 mL/min/1.73m2 [facility] ([facility] Specimen Blood - ARM, LEFT Narrative Performed At Association of Glomerular Filtration Rate (GFR) [facility] and Staging of Kidney Disease* [...] abnormalities in imaging tests). Performing Organization Address City/[facility] Phone Number [facility] CLIA: [id number] [place] [address] POCT GLUCOSE (AUTOMATED) (02/13/2020 7:56 AM SENIOR OFFICE SUPPORT ASSISTANT SOSA) [facility] POCT GLU 78 70 - 110 mg/dL [facility] Specimen Blood Performing Organization Address [facility] Phone Number [facility] CLIA: [id number] [place] [address] [place] [address] Drive PROTHROMBIN TIME / INR (02/13/2020 5:19 AM SENIOR OFFICE SUPPORT ASSISTANT SOSA) PROTIME PATIENT 22.6 (H) 12.0 - 14.7 [facility] Seconds [facility] INR 2.1Comment: Normal [facility] INR <1.1; Warfarin [facility] Therapeutic range LABORATORY 2.0 to 3.0 or 2.5 to 3.5, depending upon the indications. Specimen Blood - ARM, LEFT Performing Organization Address City/State/Zipcode Phone Number [facility] CLIA: [id number] [place] [address] CBC with Differential (02/13/2020 5:19 AM SENIOR OFFICE SUPPORT ASSISTANT SOSA) Pathologist Sig nature WBC 13.63 (H) 4.30 - 11.10 [facility] 10*3/L [facility] RBC 2.79 (L) 3.93 - 5.25 [facility] 10*6/L [facility] HGB 7.9 (L) 11.6 - 15.0 [facility] g/dL [facility] HCT 24.0 (L) 35.7 - 45.2 % [facility] MCV 86.0 80.6 - 95.5 fL [facility] MCH 28.3 25.9 - 32.8 pg [facility] MCHC 32.9 31.6 - 35.1 [facility] g/dL [facility] RDW-SD 51.9 (H) 39.0 - 49.9 fL [facility] RDW-CV 16.5 (H) 12.0 - 15.5 % [facility] PLT 341 166 - 358 [facility] 10*3/L [facility] MPV 10.9 9.5 - 12.9 fL [facility] NRBC/100 WBC 0.0 0.0 - 10.0 /100 [facility] WBCs [facility] NRBC x10^3 <0.01 10*3/L [facility] GRAN MAT (NEUT) % 73.7 % [facility] IMM GRAN % 1.10 % [facility] LYMPH % 15.2 % [facility] MONO % 8.4 % [facility] EOS % 1.0 % [facility] BASO % 0.6 % [facility] GRAN MAT x10^3(ANC) 10.06 (H) 1.88 - 7.09 [facility] 10*3/uL [facility] IMM GRAN x10^3 0.15 (H) 0.00 - 0.06 [facility] 10*3/uL HOSPITAL LABORATORY LYMPH x10^3 2.07 1.32 - 3.29 [facility] 10*3/uL [facility] MONO x10^3 1.14 (H) 0.33 - 0.92 [facility] 10*3/uL [facility] EOS x10^3 0.13 0.03 - 0.39 [facility] 10*3/uL [facility] BASO x10^3 0.08 (H) 0.01 - 0.07 [facility] 10*3/uL [facility] Specimen Blood - ARM, LEFT Performing Organization Address City/[facility]/Zipcode Phone Number [facility] CLIA: [id number] [place] [address] POCT GLUCOSE (AUTOMATED) (02/12/2020 4:47 PM SENIOR OFFICE SUPPORT ASSISTANT [facility]) Pathologist Sig nature POCT GLU 140 (H) 70 - 110 mg/dL [facility] Specimen Blood Performing Organization Address City/[facility] Phone Number [facility] CLIA: [id number] [place] [address] LAB[address]ATORY [facility] [address] ASPIRATE OR ABSCESS CULTURE(AEROBIC/ANAEROBIC) (02/12/2020 3:31 PM SENIOR OFFICE SUPPORT ASSISTANT [facility]) Aspirate or Multiple organisms [facility] Abscess Culture present, predominant SERVICES potential pathogen(s): Aspirate or 1+ Acinetobacter [facility] Abscess Culture baumannii SERVICES complexComment: Multidrug-resistant Acinetobacter (MDR-A) Gram stain Occasional (Rare) [facility] Gram negative bacilli SERVICES Gram stain Few PMNs or [facility] Mononuclear cells SERVICES observed Specimen Wound - ABDOMEN Organism Antibiotic Method Susceptibility Acinetobacter baumannii Amikacin SUSCEPTIBILITY TESTING < =2: Susceptible complex Acinetobacter baumannii Ampicillin/Sulbactam SUSCEPTIBILITY TEST ING >=32: Resistant complex Acinetobacter baumannii Cefepime SUSCEPTIBILITY TESTING > =64: Resistant complex Acinetobacter baumannii Cefotaxime SUSCEPTIBILITY TESTING > =64: Resistant complex Acinetobacter baumannii Ceftazidime SUSCEPTIBILITY TESTING R esistant complex Acinetobacter baumannii Ceftriaxone SUSCEPTIBILITY TESTING > =64: Resistant complex Acinetobacter baumannii Ciprofloxacin SUSCEPTIBILITY TESTING > =4: Resistant complex Acinetobacter baumannii Colistin SUSCEPTIBILITY TESTING < =2: Susceptible complex Acinetobacter baumannii Gentamicin SUSCEPTIBILITY TESTING > =16: Resistant complex Acinetobacter baumannii Imipenem SUSCEPTIBILITY TESTING 4 : Susceptible complex Acinetobacter baumannii Levofloxacin SUSCEPTIBILITY TESTING > =8: Resistant complex Acinetobacter baumannii Meropenem SUSCEPTIBILITY TESTING > =16: Resistant complex Acinetobacter baumannii Piperacillin/Tazobacta SUSCEPTIBILITY TE STING >=128: Resistant complex m Acinetobacter baumannii Tigecycline SUSCEPTIBILITY TESTING 2 : Susceptible complex Acinetobacter baumannii Tobramycin SUSCEPTIBILITY TESTING 8 : Intermediate complex Acinetobacter baumannii Trimethoprim/Sulfameth SUSCEPTIBILITY TE STING 160: Resistant complex oxazole Performing Organization Address [facility] Phone Number [facility] CLIA: [id number] [place] [address] [place] [address] POCT GLUCOSE (AUTOMATED) (02/12/2020 11:44 AM SENIOR OFFICE SUPPORT ASSISTANT SOSA) Pathologist Sig nature POCT GLU 83 70 - 110 mg/dL [facility] Specimen Blood Performing Organization Address [facility] Phone Number [facility] CLIA: [id number] [place] [address] POCT GLUCOSE (AUTOMATED) (02/12/2020 7:29 AM SENIOR OFFICE SUPPORT ASSISTANT SOSA) Pathologist Sig nature POCT GLU 98 70 - 110 mg/dL [facility] Specimen Blood Performing Organization Address [facility] CLIA: [id number] [place] [address] URINE CULTURE (02/12/2020 5:14 AM SENIOR OFFICE SUPPORT ASSISTANT SOSA) Pathologist Sig nature URINE CULTURE No aerobic growth [facility] (< 1000 CFU/mL) SERVICES Specimen Urine - URINE, CATHETERIZED Performing Organization Address [facility] Phone Number [facility] CLIA: [id number] [place] [address] [place] [address] COMP. METABOLIC PANEL ([id number]) (02/12/2020 3:09 AM SENIOR OFFICE SUPPORT ASSISTANT SOSA) NA 128 (L) 135 - 145 [facility] mmol/L [facility] K 4.2 3.5 - 5.0 [facility] mmol/L [facility] CL 102 98 - 108 mmol/L [facility] CO2 TOTAL 16 (L) 23 - 31 mmol/L [facility] AGAP 10 2 - 16 [facility] BUN 29 (H) 7 - 23 mg/dL [facility] GLUCOSE 81 70 - 110 mg/dL [facility] CREATININE 1.18 (H) 0.50 - 1.04 [facility] mg/dL [facility] TOTAL BILI 0.9 0.1 - 1.1 mg/dL [facility] CALCIUM 7.8 (L) 8.6 - 10.6 [facility] mg/dL [facility] T PROTEIN 6.6 6.3 - 8.2 g/dL [facility] ALBUMIN 3.0 (L) 3.5 - 5.0 g/dL [facility] ALK PHOS 144 (H) 34 - 122 U/L [facility] ALTv 32 5 - 35 U/L [facility] AST(SGOT) 43 (H) 13 - 40 U/L [facility] eGFR Calculation 44.1 mL/min/1.73m2 [facility] ([facility] LABORATORY Portuguese) eGFR Calculation 53.4 mL/min/1.73m2 [facility] () [facility] Specimen Blood - VENOUS Narrative Performed At Association of Glomerular Filtration Rate (GFR) [facility] and Staging of Kidney Disease* [...] tests). Performing Organization Address City/State/Zipcode Phone Number [facility] CLIA: [id number] [place] [address] ABDOMEN PELVIS WO CONTRAST (02/12/2020 1:37 AM SENIOR OFFICE SUPPORT ASSISTANT SOSA) Specimen Impressions Performed At PACS/VR/DOSE Ileostomy exiting the right pelvic wall. There is rede monstration of an air and fluid collection subjacent to the ri ght rectus sheath, measuring approximately 4.1 x 2.7 cm, similar to p hillary study of 02/05/2020. No evidence for bowel obstruction. 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 RL: [id number] AFC: [id number] Narrative Performed At This result has an attachment that is no t available. Ordering physician: NIVIA TERAN PACS/VR/DOSE Indication: Elevated liver enzymes and lipase, decreas ed urine output COMPARISON: CT the abdomen and pelvis dated 02/05/2020 TECHNIQUE: Axial images of the abdomen and pelvis were performed without the administration of intravenous contrast material. I mages were reformatted in the coronal and sagittal plane. CT scan was performed according to ALARA (as low as reasonably achievable) katty chilel. FINDINGS: The lung bases are clear. The patient is sta tus post median sternotomy. There is prominent mitral valve calcificat ion. The patient is status post cholecystectomy. The noncontrast appearanc e of the liver, spleen, adrenal glands and pancreas is within normal l imits. The kidneys are normal in appearance bilaterally without hydroneph rosis or urinary system calculus. There is atherosclerotic calcificatio n of the aorta without significant aneurysmal dilatation. There are small foci of air in the urinary bladder, co nsistent with recent instrumentation. There is an ileostomy exiting the rig ht pelvic wall. There is redemonstration of an extraluminal collection of ai r and fluid subjacent to the right rectus sheath, measuring 4.1 x 2.7 cm (se suma 2, image 74). The patient is status post subtotal colectomy, with th e descending and sigmoid colon remaining in situ.. Bone windows through the abdomen and pelvis demonstrate no osseous destructive lesion. Procedure Note [facility], Radiant Results Inft User - 2020 2:35 AM SENIOR OFFICE SUPPORT ASSISTANT SOSA Ordering physician: NIVIA TERAN Indication: Elevated liver enzymes and l ipase, decreased urine output COMPARISON: CT the abdomen and pelvis da mitzi 02/05/2020 TECHNIQUE: Axial images of the abdomen a nd pelvis were performed without the administration of intravenous contra st material. Images were reformatted in the coronal and sagittal plane. CT scan was performed according to ALARA (as low as reasonably achievable) policy. FINDINGS: The lung bases are clear. The patient is status post median sternotomy. There is prominent mitral va lve calcification. The patient is status post cholecystectomy. The noncont rast appearance of the liver, spleen, adrenal glands and pancreas is w ithin normal limits. The kidneys are normal in appearance bilaterally wit hout hydronephrosis or urinary system calculus. There is atheroscleroti c calcification of the aorta without significant aneurysmal dilatatio n. There are small foci of air in the urina ry bladder, consistent with recent instrumentation. There is an ileostomy e xiting the right pelvic wall. There is redemonstration of an extraluminal co llection of air and fluid subjacent to the right rectus sheath, measuring 4. 1 x 2.7 cm (series 2, image 74). The patient is status post subtotal jaz ctomy, with the descending and sigmoid colon remaining in situ.. Bone w indows through the abdomen and pelvis demonstrate no osseous destructiv e lesion. IMPRESSION Ileostomy exiting the right pelvic wall. There is redemonstration of an air and fluid collection subjacent to the ri ght rectus sheath, measuring approximately 4.1 x 2.7 cm, similar to p rior study of 02/05/2020. No evidence for bowel obstruction. 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 RL: [id number] AFC: [id number] Performing Organization Address City/State/Zipcode Phone Number PACS/VR/DOSE Urinalysis (02/11/2020 10:58 PM SENIOR OFFICE SUPPORT ASSISTANT SOSA) Pathologist Sig nature APPEARANCE Hazy (A) Clear [facility] COLOR Zaria (A) Yellow [facility] PH 5.0 4.8 - 8.0 [facility] SP GRAVITY 1.015 1.003 - 1.030 [facility] GLU U QUAL Normal Normal [facility] BLOOD 1+ (A) Negative [facility] KETONES Negative Negative [facility] PROTEIN 30 mg/dL (A) Negative [facility] UROBILIN Normal Normal [facility] BILIRUBIN Negative Negative [facility] NITRITE Negative Negative [facility] LEUK YAMINI 75/uL (A) Negative [facility] RBC/HPF 2 0 - 3 HPF [facility] WBC/HPF 32 (H) 0 - 5 HPF [facility] BACTERIA Few (A) Negative [facility] MUCOUS Slight (A) Negative LPF [facility] SQ EPITH <1 HPF [facility] WBC CLUMPS 10 (H) <=1 HPF [facility] Specimen Urine - URINE, CATHETERIZED Performing Organization Address City/State/Zipcode Phone Number [facility] CLIA: [id number] [place] [address] Chest 1 View (02/11/2020 9:47 PM SENIOR OFFICE SUPPORT ASSISTANT SOSA) Specimen Impressions Performed At PACS/VR/DOSE 1. Cardiomegaly appears stable. Narrative Performed At This result has an attachment that is no t available. EXAM: XR CHEST 1 VW PACS/VR/DOSE HISTORY: chest pain COMPARISON: 02/03/2020 FINDINGS: Lines/Tubes: None. Lungs: The lungs are clear. No pleural effusion or pne umothorax is identified. Heart/Mediastinum: The cardiomediastinal silhouette is mild enlarged. Status post CABG and aortic valve prosthesis. Bones: No acute osseous abnormality is seen. Medial st ernotomy. Mild spondylosis. Surgical clips project over the epigastri um and gallbladder region. Procedure Note [facility], Radiant Results Inft User - 2020 9:55 PM SENIOR OFFICE SUPPORT ASSISTANT SOSA EXAM: XR CHEST 1 VW HISTORY: chest pain COMPARISON: 02/03/2020 FINDINGS: Lines/Tubes: None. Lungs: The lungs are clear. No pleural e ffusion or pneumothorax is identified. Heart/Mediastinum: The cardiomediastinal silhouette is mild enlarged. Status post CABG and aortic valve prosth esis. Bones: No acute osseous abnormality is s een. Medial sternotomy. Mild spondylosis. Surgical clips project over the epigastrium and gallbladder region. IMPRESSION 1. Cardiomegaly appears stable. Performing Organization Address City/State/Zipcode Phone Number PACS/VR/DOSE LAB ONLY COVID INTERPRETATION (02/11/2020 9:42 PM SENIOR OFFICE SUPPORT ASSISTANT SOSA) COVID DMT Interpretation/Recommendations: [facility] Interpretation SERVICES Molecular NAAT Tests for Active Infection with the JUAN JOSÉ S-CoV-2 Virus: This patient has a history o f testing negative on multiple occasions for the SARS-CoV-2 virus that causes COVID-19 illness. The current test results are also negative. This most likely indicates that th e patient does not have an a ctive infection with the SARS-CoV-2 virus, especially if all of these tests coincide with the patient's current presentation. However, infection is not completely ruled out a s the false negative rate fo r molecular NAAT testing using a nasopharyngeal sample can be up to 30%, mostly dependent on the timing of sample collection in relation to illness onset and any deficiencies in sampling techniques. If the patient continues to have persistent or worsening symptoms concerning for COVID-19 illness, a repeat NAAT test (PCR, Rapid ID Now, etc.) should be performed, at which robert e the SARS-CoV-2 virus - if present - [...] COVID-19 testing the patient has had at [facility], including molecular NAAT testing (more commonly known as PCR testing and Rapid ID Now testing) and antibody testing. It does not take i nto account any testing that a patient has had outside of the [facility] medical record. COVID Results SARS-CoV-2 NAAT (no units) [facility] RY Date Value SERVICES 11/17/2019 Not Detected 08/04/2019 Not Detected SARS-CoV-2 Rapid ID NOW (no units) Date Value 02/11/2020 Not Detected 02/03/2020 Not Detected 11/26/2019 Not Detected Specimen Swab - NASOPHARYNGEAL SWAB Performing Organization Address City/[facility] Phone Number [facility] CLIA: [id number] [place], [place] [id number] [address] [place] [address] COVID-19 (ID NOW RAPID TESTING) (02/11/2020 9:42 PM SENIOR OFFICE SUPPORT ASSISTANT SOSA) SARS-CoV-2 Rapid ID Not Detected Not Detected [facility] Specimen Swab - NASOPHARYNGEAL SWAB Narrative Performed At ID NOW COVID-19 Assay is an isothermal nucleic [facility] acid amplification test intended for the qualitative detection of nucleic acid from SARS-CoV-2 viral RNA in nasopharyngeal ([employer]) specimens. It is used under Emergency Use [...] testing if clinically indicated. Performing Organization Address City/[facility]/Zipcode Phone Number [facility] CLIA: [id number] [place], [place] [id number] LABORATORY [address] [place] [address] Drive Prothrombin Time (PT) / INR (02/11/2020 9:41 PM SENIOR OFFICE SUPPORT ASSISTANT SOSA) PROTIME PATIENT 18.1 (H) 12.0 - 14.7 [facility] LABORATORY INR 1.6Comment: Normal [facility] INR <1.1; [facility] Therapeutic range LABORATORY 2.0 to 3.0 or 2.5 to 3.5, depending upon the indications. Specimen Blood - VENOUS Performing Organization Address [facility] Phone Number [facility] CLIA: [id number] [place] [address] [place] [address] Drive MAGNESIUM (02/11/2020 9:41 PM SENIOR OFFICE SUPPORT ASSISTANT SOSA) Pathologist Sig nature MAGNESIUM 1.9 1.7 - 2.4 mg/dL [facility] Specimen Blood - VENOUS Performing Organization Address [facility] Number [facility] CLIA: [id number] [place] [address] Troponin I (02/11/2020 9:41 PM SENIOR OFFICE SUPPORT ASSISTANT SOSA) Pathologist Sig nature TROPONIN I 0.015 <=0.034 ng/mL [facility] Specimen Blood - VENOUS Narrative Performed At Equal or Less than 0.034 ng/ml---Normal [facility] Note: Cardiac troponin begins to [...] patient's use of biotin. Performing Organization Address [facility] Phone Number [facility] CLIA: [id number] [place] [address] [place] [address] Lipase Serum (02/11/2020 9:41 PM SENIOR OFFICE SUPPORT ASSISTANT SOSA) Pathologist Sig nature LIPASE 488 (H) 0 - 220 U/L [facility] Specimen Blood - VENOUS Performing Organization Address [facility] Phone Number [facility] CLIA: [id number] [place] [address] [place] [address] Hepatic Function Panel (ALB, T.PRO, BILI T, BU/BC, ALT, AST, ALK PHOS) (02/11/2020 9:41 PM SENIOR OFFICE SUPPORT ASSISTANT SOSA) Pathologist Sig nature TOTAL BILI 1.1 0.1 - 1.1 mg/dL [facility] BILI UNCON 0.7 0.1 - 1.1 mg/dL [facility] BILI CONJ 0.0 0.0 - 0.3 mg/dL [facility] T PROTEIN 8.4 (H) 6.3 - 8.2 g/dL [facility] ALBUMIN 4.1 3.5 - 5.0 g/dL [facility] ALK PHOS 199 (H) 34 - 122 U/L [facility] ALTv 40 (H) 5 - 35 U/L [facility] AST(SGOT) 54 (H) 13 - 40 U/L [facility] Specimen Blood - VENOUS Performing Organization Address [facility] Phone Number [facility] CLIA: [id number] [place] [address] [place] [address] Basic Metabolic Panel (NA, K, CL, CO2, GLUCOSE, BUN, CREATININE, CA) (02/11/2020 9:41 PM SENIOR OFFICE SUPPORT ASSISTANT SOSA) NA 124 (L) 135 - 145 [facility] mmol/L [facility] K 4.6 3.5 - 5.0 [facility] mmol/L [facility] CL 91 (L) 98 - 108 mmol/L [facility] CO2 TOTAL 21 (L) 23 - 31 mmol/L [facility] AGAP 12 2 - 16 [facility] BUN 34 (H) 7 - 23 mg/dL [facility] GLUCOSE 116 (H) 70 - 110 mg/dL [facility] CREATININE 1.60 (H) 0.50 - 1.04 [facility] mg/dL [facility] CALCIUM 9.3 8.6 - 10.6 [facility] mg/dL [facility] eGFR Calculation 31.0 mL/min/1.73m2 [facility] ([facility]ORATORY Portuguese) eGFR Calculation 37.6 mL/min/1.73m2 [facility] () [facility] Specimen Blood - VENOUS Narrative Performed At [facility] of Glomerular Filtration Rate (GFR) [facility] and Staging of Kidney Disease* [...] tests). Performing Organization Address City/State/Zipcode Phone Number [facility] CLIA: [id number] [place] [address] CBC with Differential (02/11/2020 9:41 PM SENIOR OFFICE SUPPORT ASSISTANT SOSA) Pathologist Sig nature WBC 14.75 (H) 4.30 - 11.10 [facility] 10*3/L [facility] RBC 3.33 (L) 3.93 - 5.25 [facility] 10*6/L [facility] HGB 9.3 (L) 11.6 - 15.0 [facility] g/dL [facility] HCT 28.7 (L) 35.7 - 45.2 % [facility] MCV 86.2 80.6 - 95.5 fL [facility] MCH 27.9 25.9 - 32.8 pg [facility] MCHC 32.4 31.6 - 35.1 [facility] g/dL [facility] RDW-SD 50.6 (H) 39.0 - 49.9 fL [facility] RDW-CV 16.1 (H) 12.0 - 15.5 % [facility] PLT 430 (H) 166 - 358 [facility] 10*3/L [facility] MPV 9.9 9.5 - 12.9 fL [facility] NRBC/100 WBC 0.0 0.0 - 10.0 /100 [facility] WBCs [facility] NRBC x10^3 <0.01 10*3/L [facility] GRAN MAT (NEUT) % 67.7 % [facility] IMM GRAN % 1.50 % [facility] LYMPH % 20.5 % [facility] MONO % 8.4 % [facility] EOS % 1.4 % [facility] BASO % 0.5 % [facility] GRAN MAT x10^3(ANC) 10.00 (H) 1.88 - 7.09 [facility] 10*3/uL [facility] IMM GRAN x10^3 0.22 (H) 0.00 - 0.06 [facility] 10*3/uL [facility] LYMPH x10^3 3.02 1.32 - 3.29 [facility] 10*3/uL [facility] MONO x10^3 1.24 (H) 0.33 - 0.92 [facility] 10*3/uL [facility] EOS x10^3 0.20 0.03 - 0.39 [facility] 10*3/uL [facility] BASO x10^3 0.07 0.01 - 0.07 [facility] 10*3/uL [facility] Specimen Blood - VENOUS Performing Organization Address City/State/Zipcode Phone Number [facility] CLIA: [id number] [place] [address] Lactic Acid Whole Blood (02/11/2020 9:40 PM SENIOR OFFICE SUPPORT ASSISTANT SOSA) Pathologist Sig nature LACTIC ACID 1.54 mmol/L [facility] Specimen Blood - VENOUS Performing Organization Address City/State/Zipcode Phone Number [facility] CLIA: [id number] [place] [address] documented in this encounter Visit Diagnoses Diagnosis Chest pain, unspecified type - Primary HEATHER (acute kidney injury) Acute kidney failure, unspecified Acute cystitis without hematuria Acute cystitis Transaminitis Nonspecific elevation of levels of trans aminase or lactic acid dehydrogenase (LDH) Wound infection Posttraumatic wound infection not elsewh ere classified E46 Unspecified severe protein-calorie malnutrition documented in this encounter Administered Medications Medication Order MAR Action Action Date Dose Rate Site acetaminophen (TYLENOL) tablet Given 02/21/2020 1:10 PM SENIOR OFFICE SUPPORT ASSISTANT SOSA 650 mg 650 mg 650 mg, Oral, Q6HPRN, Starting Wed02/12/20 at 0106, Until Discontinued, Routine, Pain (scale 1-3) Given 02/17/2020 1:16 PM SENIOR OFFICE SUPPORT ASSISTANT SOSA 650 mg Given 02/15/2020 8:35 PM SENIOR OFFICE SUPPORT ASSISTANT SOSA 650 mg aspirin chewable tablet 81 mg Given 02/21/2020 9:00 AM SENIOR OFFICE SUPPORT ASSISTANT SOSA 81 mg 81 mg, Oral, DAILY, First dose on Wed02/12/20 at 0900, Until Discontinued, Routine Given 02/20/2020 8:53 AM SENIOR OFFICE SUPPORT ASSISTANT SOSA 81 mg Given 02/19/2020 9:56 AM SENIOR OFFICE SUPPORT ASSISTANT SOSA 81 mg atorvastatin (LIPITOR) tablet 40 mg Given 02/20/2020 9:11 PM SENIOR OFFICE SUPPORT ASSISTANT SOSA 40 mg 40 mg, Oral, QHS, First dose on Wed02/12/20 at 2100, Until Discontinued, Routine Given 02/19/2020 9:01 PM SENIOR OFFICE SUPPORT ASSISTANT SOSA 40 mg Given 02/18/2020 8:11 PM SENIOR OFFICE SUPPORT ASSISTANT SOSA 40 mg collagenase (SANTYL) ointment Given 02/21/2020 1:04 PM SENIOR OFFICE SUPPORT ASSISTANT SOSA Topical (Apply To Affected Areas), DAILY, First dose on Wed02/12/20 at 0900, Until Discontinued, Routine Given 02/20/2020 8:54 AM SENIOR OFFICE SUPPORT ASSISTANT SOSA Given 02/18/2020 10:01 AM SENIOR OFFICE SUPPORT ASSISTANT SOSA dextrose 50 % in water (D50W) injection 25 mL 25 mL, Slow IV Push, PRN, Starting Wed at 0119, Until Discontinued, BLANCA, Blood Glucose < or = 70 mg/dL and patien t is unable to swallow or has mental status changes. diphenoxylate-atropine (LOMOTIL) 2.5-0.025 Given 02/20 6:32 PM SENIOR OFFICE SUPPORT ASSISTANT SOSA 1 tablet mg tablet 1 tablet 1 tablet, Oral, Q6H, First dose on 02/17/20 at 1300, Until Discontinued, Routine Given 02/21/2020 1:03 PM SENIOR OFFICE SUPPORT ASSISTANT SOSA 1 tablet Given 02/21/2020 6:38 AM SENIOR OFFICE SUPPORT ASSISTANT SOSA 1 tablet ferrous sulfate tablet 325 mg Given 02/20/2020 6:11 PM SENIOR OFFICE SUPPORT ASSISTANT SOSA 325 mg 325 mg, Oral, QPM, First dose on 02/12/20 at 1700, Until Discontinued, Routine Given 02/19/2020 6:49 PM SENIOR OFFICE SUPPORT ASSISTANT SOSA 325 mg Given 02/18/2020 5:49 PM SENIOR OFFICE SUPPORT ASSISTANT SOSA 325 mg fluconazole (DIFLUCAN) Piggyback 200 Given 02/20/2020 6:11 PM SENIOR OFFICE SUPPORT ASSISTANT SOSA 200 mg 100 mL/hr mg at 100 mL/hr, IV Piggyback, Q24H ABX, First dose on 02/17/20 at 1800, Until Discontinued, Routine Given 02/19/2020 7:36 PM SENIOR OFFICE SUPPORT ASSISTANT SOSA 200 mg 100 mL/hr Given 02/18/2020 5:50 PM SENIOR OFFICE SUPPORT ASSISTANT SOSA 200 mg 100 mL/hr glucagon (GLUCAGEN DIAGNOSTIC KIT) injec tion 1 mg 1 mg, Intramuscular, PRN, Starting Mon at 0119, Until Discontinued, BLANCA, Blood Glucose < or = 70 mg/dL and patient is unable to swallow or has mental changes. levothyroxine (SYNTHROID) tablet 125 mcg Given 02/21/2020 6:39 AM SENIOR OFFICE SUPPORT ASSISTANT SOSA 125 mcg 125 mcg, Oral, QAM-0600, First dose on Wed02/13/20 at 0600, Until Discontinued, Routine Given 02/19/2020 5:08 AM SENIOR OFFICE SUPPORT ASSISTANT SOSA 125 mcg Given 02/18/2020 5:21 AM SENIOR OFFICE SUPPORT ASSISTANT SOSA 125 mcg metoprolol tartrate (LOPRESSOR) tablet 2 5 mg Given 02/21/2020 9:45 AM SENIOR OFFICE SUPPORT ASSISTANT SOSA 25 mg 25 mg, Oral, BID, First dose (after last reorder) on Natalie 02/15/20 at 2000, Until Discontinued, Routine Given 02/20/2020 8:00 PM SENIOR OFFICE SUPPORT ASSISTANT SOSA 25 mg Given 02/20/2020 8:53 AM SENIOR OFFICE SUPPORT ASSISTANT SOSA 25 mg mirtazapine (REMERON) tablet 15 mg Given 02/20/2020 9:10 PM SENIOR OFFICE SUPPORT ASSISTANT SOSA 15 mg 15 mg, Oral, QHS, First dose on Wed02/12/20 at 2100, Until Discontinued, Routine Given 02/19/2020 9:03 PM SENIOR OFFICE SUPPORT ASSISTANT SOSA 15 mg Given 02/18/2020 8:11 PM SENIOR OFFICE SUPPORT ASSISTANT [facility] 15 mg omeprazole (PRILOSEC) capsule 20 mg Given 02/21/2020 9:46 AM SENIOR OFFICE SUPPORT ASSISTANT [facility]OSA 20 mg 20 mg, Oral, DAILY, First dose on Wed02/12/20 at 0900, Until Discontinued, Routine Given 02/20/2020 8:53 AM SENIOR OFFICE SUPPORT ASSISTANT SOSA 20 mg Given 02/19/2020 9:56 AM SENIOR OFFICE SUPPORT ASSISTANT [facility] 20 mg ondansetron (ZOFRAN (PF)) injection 4 mg Given 02/14/2020 10:18 AM SENIOR OFFICE SUPPORT ASSISTANT SOSA 4 mg 4 mg, Slow IV Push, Q6HPRN, Starting Wed02/12/20 at 0106, Until Discontinued, Routine, Nausea and Vomiting (N/V) psyllium (METAMUCIL FIBER SINGLES) 3.4 Given 02/21/2020 6:32 PM SENIOR OFFICE SUPPORT ASSISTANT SOSA 1 Packet gram packet 1 Packet 1 Packet, Oral, QID, First dose on Wed02/13/20 at 2000, Until Discontinued, Routine Given 02/21/2020 1:03 PM SENIOR OFFICE SUPPORT ASSISTANT SOSA 1 Packet Given 02/21/2020 9:45 AM SENIOR OFFICE SUPPORT ASSISTANT SOSA 1 Packet Sliding Scale Insulin-Regular + Given 02/13/2020 12:11 PM SENIOR OFFICE SUPPORT ASSISTANT SOSA 2 Units Abdomen-SC Fsbg Testing Subcutaneous, AC, First dose on Wed02/12/20 at 0730, Until Discontinued, Routine sodium bicarbonate (ANTACID (SODIUM Given 02/21/2020 1:10 PM CS T 1,300 mg BICARBONATE)) tablet 1,300 mg 1,300 mg, Oral, TID, First dose (after last modification) on Wed02/18/20 at 2000, Until Discontinued, Routine Given 02/21/2020 8:00 AM SENIOR OFFICE SUPPORT ASSISTANT SOSA 1,300 mg Given 02/20/2020 9:11 PM SENIOR OFFICE SUPPORT ASSISTANT SOSA 1,300 mg warfarin (COUMADIN) tablet 3 mg Given 02/20/2020 9:11 PM SENIOR OFFICE SUPPORT ASSISTANT SOSA 3 mg 3 mg, Oral, DAILY AT 1700, First dose on Wed02/20/20 at 1915, Until Discontinued, Routine, INR Goal Range: 2-3, INDICATION (More than one indication for warfarin can be selected): Atrial fibrillation/flutter Medication Order MAR Action Action Date Dose Rate Site cefTRIAXone (ROCEPHIN) 1,000 mg Given 02/12/2020 12:07 AM SENIOR OFFICE SUPPORT ASSISTANT SOSA 1, 000 mg in NaCl 0.9% (NS) 50 mL MINI-BAG 1,000 mg, IV Piggyback, ONCE, 1 dose, Wed02/12/20 at 0115, 50 mL, Reason for Anti-Infective: Empiric Therapy for Suspected Infection, Empiric Therapy Site: Urine, Duration of therapy: 72 hours cefTRIAXone (ROCEPHIN) 1,000 mg in NaCl Given 02/12/2020 10:30 P M SENIOR OFFICE SUPPORT ASSISTANT SOSA 1,000 mg 0.9% (NS) 50 mL MINI-BAG 1,000 mg, IV Piggyback, Q24H ABX, First dose (after last reorder) on Wed02/12/20 at 1915, Until Discontinued, 50 mL, Reason for Anti-Infective: Empiric Therapy for Suspected Infection, Empiric Therapy Site: Urine, Duration of therapy: 72 hours enoxaparin (LOVENOX) injection 50 mg Given 02/13/2020 11:32 AM SENIOR OFFICE SUPPORT ASSISTANT SOSA 50 mg Abdo men-SC 50 mg (rounded from 54.9 mg = 1 mg/kg 54.9 kg), Subcutaneous, Q12H, First dose on Wed02/12/20 at 0800, Until Discontinued, Routine Given 02/12/2020 11:04 PM SENIOR OFFICE SUPPORT ASSISTANT SOSA 50 mg Abdo men-SC Given 02/12/2020 8:55 AM SENIOR OFFICE SUPPORT ASSISTANT SOSA 50 mg Abdo men-SC heparin (porcine) injection Given 02/12/2020 6:00 AM SENIOR OFFICE SUPPORT ASSISTANT SOSA 5,000 Units Abdomen-SC 5,000 Units 5,000 Units, Subcutaneous, Q8H, First dose on Wed02/12/20 at 0600, Until Discontinued, Routine loperamide (IMODIUM A-D) capsule 2 mg Given 02/17/2020 5:36 AM SENIOR OFFICE SUPPORT ASSISTANT SOSA 2 mg 2 mg, Oral, Q6H, First dose on Natalie 02/15/20 at 1230, Until Discontinued, Routine Given 02/17/2020 12:14 AM SENIOR OFFICE SUPPORT ASSISTANT SOSA 2 mg Given 02/16/2020 5:41 PM SENIOR OFFICE SUPPORT ASSISTANT SOSA 2 mg NaCl 0.9% (NS) bolus infusion New Bag 02/11/2020 9:46 PM SENIOR OFFICE SUPPORT ASSISTANT SOSA 1,000 mL 999 mL/hr 1,000 mL at 999 mL/hr, 1,000 mL, IV Infusion, ONCE, 1 dose, 02/11/20 at 2130, BLANCA NaCl 0.9% (NS) bolus infusion 500 New Bag 02/17/2020 6:08 PM SENIOR OFFICE SUPPORT ASSISTANT SOSA 500 mL 999 mL/hr mL at 999 mL/hr, 500 mL, IV Infusion, ONCE, 1 dose, 02/17/20 at 1800, BLANCA NaCl 0.9% (NS) IV infusion 1,000 New Bag 02/12/2020 2:[address] 1,000 mL 100 mL/hr mL at 100 mL/hr, IV Infusion, ONCE, 1 dose, Wed02/12/20 at 0230, Routine NaCl 0.9% (NS) IV infusion 1,000 New Bag 02/12/2020 8:[address] 1,000 mL 100 mL/hr mL at 100 mL/hr, IV Infusion, ONCE, 1 dose, Wed02/12/20 at 0830, Routine NaCl 0.9% (NS) IV infusion 1,000 New Bag 02/16/2020 8:[address] 1,000 mL 75 mL/hr mL at 75 mL/hr, IV Infusion, CONTINUOUS, Starting Wed02/16/20 at 0745, Until Wed02/16/20 at 1700, Routine NaCl 0.9% (NS) IV infusion 1,000 New Bag 02/16/2020 9:[address] 1,000 mL 70 mL/hr mL at 70 mL/hr, IV Infusion, CONTINUOUS, Starting Wed02/16/20 at 1930, Until Wed02/17/20 at 1201, Routine phytonadione (VITAMIN K) Given 02/19/2020 1:50 PM SENIOR OFFICE SUPPORT ASSISTANT SOSA 2 mg Right Upper Arm-SC injection 2 mg 2 mg, Subcutaneous, ONCE, 1 dose, Wed02/19/20 at 1300, Routine sodium bicarbonate (ANTACID (SODIUM Given 02/16/2020 8:54 AM CS T 650 mg BICARBONATE)) tablet 650 mg 650 mg, Oral, DAILY, First dose on Wed02/12/20 at 0900, Until Discontinued, Routine Given 02/15/2020 8:24 AM SENIOR OFFICE SUPPORT ASSISTANT SOSA 650 mg Given 02/14/2020 8:50 AM SENIOR OFFICE SUPPORT ASSISTANT SOSA 650 mg sodium bicarbonate (ANTACID (SODIUM Given 02/18/2020 1:03 PM CS T 650 mg BICARBONATE)) tablet 650 mg 650 mg, Oral, TID, First dose (after last modification) on 02/17/20 at 0800, Until Discontinued, Routine Given 02/18/2020 9:59 AM SENIOR OFFICE SUPPORT ASSISTANT SOSA 650 mg Given 02/17/2020 10:04 PM SENIOR OFFICE SUPPORT ASSISTANT SOSA 650 mg sodium bicarbonate 150 mEq in D5W New Bag 02/17/2020 1:16 PM SENIOR OFFICE SUPPORT ASSISTANT SOSA 150 mEq 100 mL/hr 1,000 mL IV infusion IV Infusion, at 100 mL/hr, 150 mEq, CONTINUOUS, Starting 02/17/20 at 1330, Until 02/17/20 at 1451, Routine sodium bicarbonate 150 mEq in D5W New Bag 02/17/2020 11:30 PM SENIOR OFFICE SUPPORT ASSISTANT SOSA 150 mEq 80 mL/hr 1,000 mL IV infusion IV Infusion, at 80 mL/hr, 150 mEq, CONTINUOUS, Starting 02/17/20 at 2330, Until 02/18/20 at 1131, Routine warfarin (COUMADIN) tablet 2 mg Given 02/13/2020 4:50 PM SENIOR OFFICE SUPPORT ASSISTANT SOSA 2 mg 2 mg, Oral, DAILY AT 1700, First dose (after last modification) on Wed02/12/20 at 1700, Until Discontinued, Routine, INR Goal Range: 2, INDICATION (More than one indication for warfarin can be selected): Atrial fibrillation/flutter Given 02/12/2020 4:56 PM SENIOR OFFICE SUPPORT ASSISTANT SOSA 2 mg warfarin (COUMADIN) tablet 3 mg Given 02/17/2020 5:19 PM SENIOR OFFICE SUPPORT ASSISTANT SOSA 3 mg 3 mg, Oral, DAILY AT 1700, First dose (after last modification) on Wed02/14/20 at 1700, Until Discontinued, Routine, INR Goal Range: 2-3, INDICATION (More than one indication for warfarin can be selected): Atrial fibrillation/flutter Given 02/16/2020 5:42 PM SENIOR OFFICE SUPPORT ASSISTANT SOSA 3 mg Given 02/15/2020 5:40 PM SENIOR OFFICE SUPPORT ASSISTANT SOSA 3 mg documented in this encounter Additional Health Concerns Infection Onset Date Last Indicated Resolved Time COVID-19 Rule Out 02/11/2020 02/11/2020 02/11/2020 10: 29 PM SENIOR OFFICE SUPPORT ASSISTANT SOSA Contact- MDRO 02/16/2020 02/16/2020 documented as of this encounter Insurance Payer Benefit Plan / Subscriber ID Effective Phone Address T ype Group Dates MEDICARE MEDICARE PART [id number] 2004-Pre [phone] [address] [employer] sent [phone] [place] [phone] [facility] [id number] 2008-Pr [address] [facility] esent [id number] Supplement MEDICARE [place] SUPPLEMENT [place] [id number] documented as of this encounter
--- NOTE | 2020-02-22 21:11 | RAD REPORT ---
EXAM DESCRIPTION: Danis Single View02/22/2020 9:04 pm CLINICAL HISTORY: Chest pain COMPARISON: 2019 FINDINGS: The lungs appear clear of acute infiltrate. The heart is mildly enlarged. Postsurgical ch anges involve chest IMPRESSION: No acute abnormalities displayed
[2020-02-22 21:21] LABS: Absolute Lymphocytes (CBC) 2.9 K/uL (0.7-4.9); Basophils % 0.9 % (0-1.3); Hematocrit 22.3 % (36.0-45.0); Lymphocytes % 16.6 % (15.3-44.8); MPV 7.1 fL (7.6-11.3); RBC Red Blood Cell Count 2.64 M/uL (3.86-4.86)
[2020-02-22 21:23] LABS: Protime INR 1.64
[2020-02-22 21:36] LABS: ALT/SGPT 37 U/L (12-78); AST/SGOT 48 U/L (15-37); Albumin 2.4 g/dL (3.4-5.0); Alkaline Phosphatase 197 U/L (45-117); BUN Blood Urea Nitrogen 18 mg/dL (7-18); Bicarbonate 30 mmol/L (21-32); Bilirubin Direct 0.3 mg/dL (0-0.2); Bilirubin Total 0.7 mg/dL (0.2-1.0); Glucose Level 133 mg/dL (74-106); Lipase 181 U/L (73-393); NT PRO-BNP 3127 pg/mL (<450); Potassium 3.9 mmol/L (3.5-5.1); Protein, Total 7.6 g/dL (6.4-8.2); Sodium Level 133 mmol/L (136-145); Troponin (Emerg Dept Use Only) < 0.02 ng/mL (0.0-0.045)
[2020-02-22 21:38] LABS: Magnesium 1.3 mg/dL (1.8-2.4)
[2020-02-22] MEDS ORDERED: NA CHLORIDE 0.9% 1,000 ML ONE (21:42)
[2020-02-22] MEDS ORDERED: FAMOTIDINE 20 MG/2 ML VIAL IV ONE ×2 (21:43→23:32)
[2020-02-22] MEDS ORDERED: MAGNESIUM SULFATE 1 gm IVPB 1 GM/100 ML BAG IV ONE (21:55)
--- NOTE | 2020-02-22 22:43 | ER ---
Nurse's Notes [facility] Name: Claudette Sherman Age: 79 yrs Sex: Female : 1940 Arrival Date: 02/22/2020 Time: 18:37 Bed 8 Private MD: Diagnosis: Chest pain, unspecified;Anemia, unspecified;Acute kidney failure-on chronic;Hypomagnesemia;Gastrointestinal hemorrhage, unspecified-stable;Pressure ulcer of buttock-stage 2, sacral Presentation: 02/21 19:02 Chief complaint: Parent and/or Guardian states: Son: She got discharge last night at [address] for UTI, DHN and low blood pressure. She stayed for about 8 days. Today, she said she has dizzy spells, ears ringing and hurting, L side chest pain, jaw hurting and L arm hurting. The pain was intermittent and has gotten in in the afternoon. Denies cough and fever. 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 Coronavirus screen: Client denies travel out of the [place] in the last 14 days. At this time, the client does not indicate any symptoms associated with coronavirus-19. Ebola Screen: Patient negative for fever greater than or equal to 101.5 degrees Fahrenheit, and additional compatible Ebola Virus Disease symptoms Patient denies exposure to infectious person. Patient denies travel to an Ebola-affected area in the 21 days before illness onset. No symptoms or risks identified at this time. Initial Sepsis Screen: Does the patient meet any 2 criteria? No. Patient's initial sepsis screen is negative. Does the patient have a suspected source of infection? No. Patient's initial sepsis screen is negative. Risk Assessment: Do you want to hurt yourself or someone else? Patient reports no desire to harm self or others. Onset of symptoms was February 22, 2020. 19:02 Method Of Arrival: Wheelchair ca1 19:02 Acuity: LIZ 2 ca1 Historical: - Allergies: 19:09 Morphine; ca1 19:09 Codeine; ca1 - PMHx: 19:09 High Cholesterol; Hypertension; Hypothyroidism; ca1 - PSHx: 19:09 CABG; Colostomy; ca1 - Immunization history:: Pneumococcal vaccine is not up to date, Flu vaccine is up to date. - Social history:: Smoking status: Patient denies any tobacco usage or history of. Screenin:56 Abuse screen: Denies threats or abuse. Nutritional screening: No deficits noted. ea Tuberculosis screening: No symptoms or risk factors identified. Fall Risk None identified. Assessment: 20:53 General: Appears uncomfortable, Behavior is anxious. Pain: Complains of pain in left ea arm, jaw. Neuro: Level of Consciousness is awake, alert, obeys commands, Oriented to person, place, time, situation. Cardiovascular: Patient's skin is warm and dry. Respiratory: Airway is patent Respiratory effort is even, unlabored, Respiratory pattern is regular, symmetrical. GI: wound vac noted to left upper abd, ostomy bag to right side of abdomen. : Sosa in place to gravity drainage pt came from home with Sosa. EENT: Derm: Skin is fragile, is thin, Skin temperature is warm Bruising that is on abdomen. 21:50 Reassessment: Patient and/or family updated on plan of care and expected duration. Pain ea level reassessed. Patient is alert, oriented x 3, equal unlabored respirations, skin warm/dry/pink. 02/22 00:00 Reassessment: Patient and/or family updated on plan of care and expected duration. Pain ea level reassessed. Patient is alert, oriented x 3, equal unlabored respirations, skin warm/dry/pink. Discharge instruction given to patient, verbalized the understanding of instruction, pt left ED ambulatory tolerating well. 01:47 Reassessment: Patient and/or family updated on plan of care and expected duration. Pain ea level reassessed. Report given to receiving nurse on second floor. Vital Signs: 02/21 19:02 BP 121 / 63; Pulse 121; Resp 19; Temp 97.6(TE); Pulse Ox 100% on R/A; Weight 63.5 kg; ca1 Height 5 ft. 2 in. (157.48 cm) (R); Pain 8/10; 20:56 BP 129 / 49; Pulse 110; Resp 18; Pulse Ox 99% ; ea 21:30 BP 105 / 64; Pulse 105; Resp 18; Pulse Ox 100% on R/A; rv 22:41 BP 109 / 47; Pulse 105; Resp 17; Pulse Ox 100% on R/A; rv 02/22 01:47 BP 110 / 42; Pulse 93; Resp 18; Temp 97.6; Pulse Ox 99% on R/A; ea 02/21 19:02 Body Mass Index 25.61 (63.50 kg, 157.48 cm) ca1 ED Course: 02/21 18:37 Patient arrived in ED. ag5 19:07 Triage completed. ca1 19:09 Arm band placed on right wrist. ca1 19:47 John Bansal MD is Attending Physician. clara 19:49 Rajendra Kenyon, DANILO is Primary Nurse. rv 20:57 Patient has correct armband on for positive identification. Placed in gown. Bed in low ea position. Call light in reach. Side rails up X2. tank truck mechanic on. Pulse ox on. NIBP on. 21:00 Inserted saline lock: 20 gauge in right antecubital area, using aseptic technique. rv Blood collected. 21:00 Initial lab(s) drawn, Lab(s) recollected, by me, sent to lab. rv 21:04 XRAY Chest (1 view) In Process Unspecified. EDMS 22:15 First set of blood cultures drawn by me. Inserted midline POWERGLIDE [id number], ANTHONY. rv 22:23 No provider procedures requiring assistance completed. rv 22:28 COVID swab sent to lab. Trinh (lab) orders for in house, stated understanding. sg 22:35 CT Chest Abdomen Pelvis W/O Contrast In Process Unspecified. EDMS 22:39 Vidal Thomas MD is Hospitalizing Provider. clara 02/22 00:30 Patient admitted, IV remains in place. ea Administered Medications: 02/21 21:31 Not Given (Duplicate Order): NS 0.9% 500 ml IV at bolus once clara 21:35 Drug: NS 0.9% 250 ml Route: IV; Rate: bolus; Site: right antecubital; rv 21:49 Follow up: IV Status: Completed infusion; IV Intake: 250ml rv 21:35 Drug: Pepcid 20 mg Route: IVP; Site: right antecubital; rv 23:30 Follow up: Response: No adverse reaction rv 21:41 Drug: Magnesium Sulfate 1 grams Route: IVPB; Infused Over: 1 hrs; Site: right ea antecubital; 22:41 Follow up: Response: No adverse reaction; IV Status: Completed infusion ea 22:24 Drug: NS 0.9% 1000 ml Route: IV; Rate: 125 ml/hr; Site: right antecubital; rv 02/22 00:30 Follow up: Response: No adverse reaction; IV Status: Infusion continued upon admission ea 02/21 22:25 Not Given (NOT AVAILABLE): ProTONIX 40 mg IVP once rv 22:40 Drug: Rocephin 1 grams Route: IV; Rate: per protocol; Site: right antecubital; rv 23:30 Follow up: Response: No adverse reaction; IV Status: Completed infusion rv 23:30 Drug: Pepcid 20 mg Route: IVP; Site: right upper arm; rv 02/22 00:31 Follow up: Response: No adverse reaction ea 02/21 23:31 Drug: Heparin (IL Drip) 12 units/kg/hr - (HEParin 85489 units, D5W 500 ml) sg {Co-Signature: rv (Rajendra Kenyon RN).} Route: IV; Rate: calculated rate; Site: right antecubital; 02/22 00:31 Follow up: Response: No adverse reaction; IV Status: Infusion continued upon admission 02/21 23:32 Drug: Heparin (IL-Bolus No thrombolytic) - HEParin 60 units/kg {Co-Signature: rv sg (Rajendra Kenyon RN).} Route: IVP; Site: right antecubital; 02/22 00:31 Follow up: Response: No adverse reaction ea Intake: 02/21 21:49 IV: 250ml; Total: 250ml. rv Outcome: 22:42 Decision to Hospitalize by Provider. [facility] 02/22 00:29 Admitted to ER Hold. Please see [facility] for further documentation. ea Condition: stable Instructed on the need for admit, Demonstrated understanding of instructions. 02:01 Patient left the ED. sg Signatures: Dispatcher [employer] EDVictor M Castillo RN RN sg Anderson, Corey, MD MD cha Antunez, Elena, RN RN ea Vicente, Ronaldo, RN RN rv Acob, Cheryl, RN RN ca1 Gaskin, Ajare 5 Rajendra Kenyon RN rv
--- NOTE | 2020-02-22 22:43 | EDPHYS ---
Physician Documentation [facility] Name: Claudette Sherman Age: 79 yrs Sex: Female : 1940 Arrival Date: 02/22/2020 Time: 18:37 Bed 8 Private MD: ED Physician John Bansal HPI: 02/21 21:10 This 79 yrs old Female presents to ER via Wheelchair with complaints of Jaw clara Pain, Ear Pain, Numbness Of Arm, Chest Pain. 21:10 The patient presents with pain, tenderness. clara Historical: - Allergies: 19:09 Morphine; ca1 19:09 Codeine; ca1 - PMHx: 19:09 High Cholesterol; Hypertension; Hypothyroidism; ca1 - PSHx: 19:09 CABG; Colostomy; ca1 - Immunization history:: Pneumococcal vaccine is not up to date, Flu vaccine is up to date. - Social history:: Smoking status: Patient denies any tobacco usage or history of. ROS: 21:10 Constitutional: Negative for fever, chills, and weight loss, Eyes: Negative for injury, clara pain, redness, and discharge, ENT: Negative for injury, pain, and discharge, Neck: Negative for injury, pain, and swelling, Abdomen/GI: Negative for abdominal pain, nausea, vomiting, diarrhea, and constipation, Back: Negative for injury and pain, : Negative for injury, bleeding, discharge, and swelling, MS/Extremity: Negative for injury and deformity, Skin: Negative for injury, rash, and discoloration, Neuro: Negative for headache, weakness, numbness, tingling, and seizure, Psych: Negative for depression, anxiety, suicide ideation, homicidal ideation, and hallucinations, Allergy/Immunology: Negative for hives, rash, and allergies, Endocrine: Negative for neck swelling, polydipsia, polyuria, polyphagia, and marked weight changes, Hematologic/Lymphatic: Negative for swollen nodes, abnormal bleeding, and unusual bruising. 21:10 Cardiovascular: Positive for chest pain, with movement. 21:10 Respiratory: Positive for shortness of breath, at rest. 21:10 Abdomen/GI: Positive for nausea, ileostomy, wound vacuum. Exam: 21:10 Constitutional: This is a well developed, well nourished patient who is awake, alert, clara and in no acute distress. Head/Face: Normocephalic, atraumatic. Eyes: Pupils equal round and reactive to light, extra-ocular motions intact. Lids and lashes normal. Conjunctiva and sclera are non-icteric and not injected. Cornea within normal limits. Periorbital areas with no swelling, redness, or edema. ENT: Nares patent. No nasal discharge, no septal abnormalities noted. Tympanic membranes are normal and external auditory canals are clear. Oropharynx with no redness, swelling, or masses, exudates, or evidence of obstruction, uvula midline. Mucous membranes moist. Neck: Trachea midline, no thyromegaly or masses palpated, and no cervical lymphadenopathy. Supple, full range of motion without nuchal rigidity, or vertebral point tenderness. No Meningismus. Chest/axilla: Normal chest wall appearance and motion. Nontender with no deformity. No lesions are appreciated. Abdomen/GI: Soft, non-tender, with normal bowel sounds. No distension or tympany. No guarding or rebound. No evidence of tenderness throughout. Back: No spinal tenderness. No costovertebral tenderness. Full range of motion. Female : Normal external genitalia. MS/ Extremity: Pulses equal, no cyanosis. Neurovascular intact. Full, normal range of motion. Neuro: Awake and alert, GCS 15, oriented to person, place, time, and situation. Cranial nerves II-XII grossly intact. Motor strength 5/5 in all extremities. Sensory grossly intact. Cerebellar exam normal. Normal gait. Psych: Awake, alert, with orientation to person, place and time. Behavior, mood, and affect are within normal limits. 21:10 Cardiovascular: Rate: tachycardic, Rhythm: regular, Pulses: Pulses are 3+ in bilateral radial, brachial, femoral, popliteal, posterior tibial and and dorsalis pedis arteries.. Heart sounds: click, cw aortic valve. 23:17 Abdomen/GI: Rectal exam: Stool: guaiac positive, green, loose, colostomy, no melena, no clara gross blood. Vital Signs: 19:02 BP 121 / 63; Pulse 121; Resp 19; Temp 97.6(TE); Pulse Ox 100% on R/A; Weight 63.5 kg; ca1 Height 5 ft. 2 in. (157.48 cm) (R); Pain 8/10; 20:56 BP 129 / 49; Pulse 110; Resp 18; Pulse Ox 99% ; ea 21:30 BP 105 / 64; Pulse 105; Resp 18; Pulse Ox 100% on R/A; rv 22:41 BP 109 / 47; Pulse 105; Resp 17; Pulse Ox 100% on R/A; rv 02/22 01:47 BP 110 / 42; Pulse 93; Resp 18; Temp 97.6; Pulse Ox 99% on R/A; ea 02/21 19:02 Body Mass Index 25.61 (63.50 kg, 157.48 cm) ca1 MDM: 02/21 19:47 Patient medically screened. clara 21:14 Differential diagnosis: Anemia Bronchitis CHF exacerbation, pneumonia, pulmonary edema, clara Pulmonary Embolism. Antibiotic administration: Not indicated. HEART Score: History: Moderately Suspicious (1), ECG: Significant ST-deviation (2), Age: > or = 65 years (2), Risk Factors: > or = 3 Risk factors for atherosclerotic disease (2), [Hypercholesterolemia] [Hypertension] [Active Smoker] [+ Family HX] Troponin: < or = 1 x Normal Limit (0). The patient was not given aspirin in the Emergency Department. Patient reports taking aspirin within the past 24 hours. The patient's Wells Deep Vein Thrombosis Score was calculated as follows: Total Score: 0. This patient was found to be at low risk for a deep vein thrombosis by using the Well's assessment criteria Total Score: 0-2 Pts- Low Risk. The patient's pulmonary embolism risk score was calculated as follows: Total Score: 0-2 points. This patient was found to be at low risk for a pulmonary embolism by using the Well's assessment criteria Total Score: 0-2 points. This patient was found to be at low risk for a pulmonary embolism by using the Well's assessment criteria. BENTON Risk Score: 1 - patient's age is greater or equal to 65 years, 1 - Three or more CAD risk factors, 1- Known CAD, 1 - ASA use in past 7 days, 1 - ST deviation >0.5mm, TOTAL SCORE = 5. Immunization status: Pneumococcal vaccine: Influenza vaccine: Data reviewed: vital signs, nurses notes, lab test result(s), EKG, radiologic studies, plain films. Data interpreted: monitor worker: rate is 110 beats/min, rhythm is regular, Pulse oximetry: on room air. Test interpretation: by ED physician or midlevel provider: ECG, plain radiologic studies. 22:45 ED course: no beds [facility] and no beds at [facility]. [facility] 02/21 20:33 Order name: Basic Metabolic Panel; Complete Time: 22:38 02/21 20:33 Order name: CBC with Diff; Complete Time: 21:41 02/21 20:33 Order name: LFT's; Complete Time: 22:38 02/21 20:33 Order name: Magnesium; Complete Time: 22:38 02/21 20:33 Order name: NT PRO-BNP; Complete Time: 22:38 02/21 20:33 Order name: PT-INR; Complete Time: 21:41 02/21 20:33 Order name: Troponin (emerg Dept Use Only); Complete Time: 22:38 02/21 21:07 Order name: Urine Culture [facility] 02/21 21:07 Order name: Type And Screen [facility] 02/21 21:18 Order name: Lipase; Complete Time: 22:38 [facility] 02/21 21:18 Order name: Thyroid Stimulating Hormone; Complete Time: 22:38 [facility] 02/21 20:33 Order name: XRAY Chest (1 view); Complete Time: 21:20 02/21 21:39 Order name: T4 Free; Complete Time: 22:38 [facility] 02/21 21:43 Order name: Blood Culture Adult (2) [facility] 02/21 21:43 Order name: Lactate; Complete Time: 23:15 [facility] 02/21 21:46 Order name: CT Chest Abdomen Pelvis W/O Contrast [facility] 02/21 21:48 Order name: Packed RBC Leukored [facility] 02/21 22:58 Order name: COVID-19 tt3 02/21 23:43 Order name: SARS-COV-2 RT PCR; Complete Time: 00:10 EDMD 02/22 00:10 Order name: Blood Culture Adult (2) jr8 02/22 00:10 Order name: Procalcitonin [facility] 02/21 20:01 Order name: EKG; Complete Time: 20:02 [facility] 02/21 20:01 Order name: EKG - Nurse/Tech; Complete Time: 20:01 [facility] 02/21 20:33 Order name: Cardiac monitoring; Complete Time: 21:25 02/21 20:33 Order name: IV Saline Lock; Complete Time: 21:25 02/21 20:33 Order name: Labs collected and sent; Complete Time: 20:51 02/21 20:33 Order name: O2 Per Protocol; Complete Time: 20:51 02/21 20:33 Order name: O2 Sat Monitoring; Complete Time: 20:51 02/21 21:31 Order name: Misc. Order: mid line please; Complete Time: 22:28 [facility] 02/21 21:34 Order name: Transfuse; Complete Time: : [facility] 02/21 23:23 Order name: Misc. Order: duoderm to sacral decub, stage1-2; Complete Time: 23:30 clara Administered Medications: 21:31 Not Given (Duplicate Order): NS 0.9% 500 ml IV at bolus once clara 21:35 Drug: NS 0.9% 250 ml Route: IV; Rate: bolus; Site: right antecubital; rv 21:49 Follow up: IV Status: Completed infusion; IV Intake: 250ml rv 21:35 Drug: Pepcid 20 mg Route: IVP; Site: right antecubital; rv 23:30 Follow up: Response: No adverse reaction rv 21:41 Drug: Magnesium Sulfate 1 grams Route: IVPB; Infused Over: 1 hrs; Site: right ea antecubital; 22:41 Follow up: Response: No adverse reaction; IV Status: Completed infusion ea 22:24 Drug: NS 0.9% 1000 ml Route: IV; Rate: 125 ml/hr; Site: right antecubital; rv 02/22 00:30 Follow up: Response: No adverse reaction; IV Status: Infusion continued upon admission 02/21 22:25 Not Given (NOT AVAILABLE): ProTONIX 40 mg IVP once rv 22:40 Drug: Rocephin 1 grams Route: IV; Rate: per protocol; Site: right antecubital; rv 23:30 Follow up: Response: No adverse reaction; IV Status: Completed infusion rv 23:30 Drug: Pepcid 20 mg Route: IVP; Site: right upper arm; rv 02/22 00:31 Follow up: Response: No adverse reaction 02/21 23:31 Drug: Heparin (ND Drip) 12 units/kg/hr - (HEParin 66907 units, D5W 500 ml) sg {Co-Signature: rv (Rajendra Kenyon RN).} Route: IV; Rate: calculated rate; Site: right antecubital; 02/22 00:31 Follow up: Response: No adverse reaction; IV Status: Infusion continued upon admission ea 02/21 23:32 Drug: Heparin (ND-Bolus No thrombolytic) - HEParin 60 units/kg {Co-Signature: rv ellen (Rajendra Kenyon RN).} Route: IVP; Site: right antecubital; 02/22 00:31 Follow up: Response: No adverse reaction ea Disposition: 02/22/20 22:42 Hospitalization ordered by Vidal Thomas for Inpatient Admission. Preliminary diagnosis are Chest pain, unspecified, Anemia, unspecified, Acute kidney failure - on chronic, Hypomagnesemia, Gastrointestinal hemorrhage, unspecified - stable, Pressure ulcer of buttock - stage 2, sacral. - Bed requested for Telemetry/MedSurg (Inpatient). - Status is Inpatient Admission. sg - Condition is Fair. - Problem is new. - Symptoms have improved. Signatures: Dispatcher [employer] EDMD Trinh Hope RN RN mw Gay, Steven, RN RN sg Anderson, Corey, MD MD cha Roszak, Josh, PA PA [id number] Dayami Thomson RN RN ea Vicente, Ronaldo RN Vannesa Watters RN RN ca1 Ronaldo Vicente RN rv Corrections: (The following items were deleted from the chart) 02/21 21:17 21:08 THYROID STIMULAT HORMONE+C.LAB.BRZ ordered. EDMD EDMS 21:17 21:08 LIPASE+C.LAB.BRZ ordered. EDMD EDMS 22:23 21:08 CORONAVIRUS+MR.LAB.BRZ ordered. EDMD EDMS 23:17 22:42 Hospitalization Ordered by Vidal Thomas MD for Inpatient Admission. Preliminary clara diagnosis is Chest pain, unspecified; Anemia, unspecified; Acute kidney failure - on chronic; Hypomagnesemia. Bed requested for Telemetry/MedSurg (Inpatient). Status is Inpatient Admission. Condition is Fair. Problem is new. Symptoms have improved. clara 23:20 23:17 02/22/2020 22:42 Hospitalization Ordered by Vidal Thomas MD for Inpatient clara Admission. Preliminary diagnosis is Chest pain, unspecified; Anemia, unspecified; Acute kidney failure - on chronic; Hypomagnesemia; Gastrointestinal hemorrhage, unspecified - stable. Bed requested for Telemetry/MedSurg (Inpatient). Status is Inpatient Admission. Condition is Fair. Problem is new. Symptoms have improved. [facility] 02/22 00:57 02/21 23:20 02/22/2020 22:42 Hospitalization Ordered by Vidal Thomas MD for Inpatient mw Admission. Preliminary diagnosis is Chest pain, unspecified; Anemia, unspecified; Acute kidney failure - on chronic; Hypomagnesemia; Gastrointestinal hemorrhage, unspecified - stable; Pressure ulcer of buttock - stage 2, sacral. Bed requested for Telemetry/MedSurg (Inpatient). Status is Inpatient Admission. Condition is Fair. Problem is new. Symptoms have improved. [facility] 02/22 02:01 00:57 02/22/2020 22:42 Hospitalization Ordered by Vidal Thomas MD for Inpatient sg Admission. Preliminary diagnosis is Chest pain, unspecified; Anemia, unspecified; Acute kidney failure - on chronic; Hypomagnesemia; Gastrointestinal hemorrhage, unspecified - stable; Pressure ulcer of buttock - stage 2, sacral. Bed requested for Telemetry/MedSurg (Inpatient). Status is Inpatient Admission. Condition is Fair. Problem is new. Symptoms have improved. mw
[2020-02-22] MEDS ORDERED: CEFTRIAXONE/SWI 1gm 1 GM/10 ML SYR ONE (22:51)
[2020-02-22] MEDS ORDERED: NA CHLORIDE 0.9% 500 ML ONE (23:12)
[2020-02-22] MEDS ORDERED: HEPARIN 5000 UNIT/ML 1 ML VIAL ONE (23:32)
[2020-02-22] MEDS ORDERED: HEPARIN/D5W 25,000 UNIT/500 ML BAG IV ONE (23:33)
--- NOTE | 2020-02-23 01:34 | P.HP ---
Certification for Inpatient Patient admitted to: Inpatient With expected LOS: >2 Midnights Patient will require the following post-hospital care: None Practitioner: I am a practitioner with admitting privileges, knowledge of patient current condition, hospital course, and medical plan of care. Services: Services provided to patient in accordance with Admission requirements found in Title 42 Section 412.3 of the Code of Federal Regulations <Zoltan Higgins - Last Filed: 02/23/20 01:29> Patient History Date of Service: 02/23/20 Primary Care Provider: Dr. Alexander Reason for admission: Chest pain, anemia, hypomagnesmia History of Present Illness: This is an 79-year-old female who has a history of hypertension, hypothyroidism, double bypass with aortic valve replacement, colostomy who was recently admitted to the [facility] for several days for dehydration and urinary tract infection. Patient was released yesterday per family. Patient today started to have chest pain that radiated to the jaw and ear with numbness of the arm. Patient was brought to breast support at that time for further evaluation. Patient was worked up in the emergency room and found to have a sodium of 133, potassium 3.9, chloride 95, bicarb 30, BUN 18, creatinine 1.34, glucose 133. Patient had an elevated white cell count is 17.6, hemoglobin 7.5, hematocrit 22.3, platelet 382, with hypo Bank knees me a of 1.3. Family stated that she has had to have transfusions in the past because they have had trouble controlling micro bleeding from ostomy site secondary to anticoagulation for her prosthetic aortic valve. 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 Patient alert and oriented x4 in the emergency room feeling slightly better. Patient was transfused in the emergency room 1 unit packed red blood cells and magnesium was replaced. Medici ne was consulted at that time for further evaluation of her chest pain, hypomagnesemia, anemia. Emergency room did try to transfer patient to [facility], an [facility] system but all beds were full at that time. Has even tried to contact patient's cardiology but could not help at this time. Home medications list reviewed: Yes - Past Medical/Surgical History Diabetic: Yes -: dm -: htn -: hyperlipidemia -: knee sx -: anita -: hysterectomy - Social History Smoking Status: Never smoker Smoking therapy provided: No Alcohol use: No CD- Drugs: No Caffeine use: Yes Place of Residence: Home <Zoltan Higgins - Last Filed: 02/23/20 01:29> Date of Service: 02/24/20 - Family History Father Notes: no medical condition,still living Mother Notes: no medical condition,still living <Vidal Thomas - Last Filed: 02/28/20 03:42> Allergies No Known Allergies Allergy (Unverified 07/07/11 10:05) Home Medications: Aspirin 81 mg PO DAILY 02/23/20 Atorvastatin Calcium [Lipitor] 40 mg PO BEDTIME 02/23/20 Ferrous Sulfate [Ferrous Sulfate*] 325 mg PO DAILY 02/23/20 Levothyroxine Sodium [Levothyroxine] 125 mcg PO DAILY 02/23/20 Metoprolol Tartrate [Lopressor*] 25 mg PO BID 02/23/20 Mirtazapine [Remeron*] 15 mg PO BEDTIME 02/23/20 Omeprazole Magnesium [Prilosec Otc] 20 mg PO DAILY 02/23/20 Psyllium Husk/Aspartame [Metamucil Fiber Singles Packet] 1 pkg PO DAILY 02/23/20 Sertraline [Zoloft*] 50 mg PO DAILY 02/23/20 Sodium Bicarbonate 2 tab PO TID 02/23/20 Warfarin Sodium [Coumadin*] 3 mg PO DAILY AT SUPPER 02/23/20 Amox/Clavulanate [Augmentin 875-125 Tab] 875 mg PO BID #10 tab 02/24/20 Luc [Luc*] 1 pkt PO BID #60 powd.pack 02/24/20 Magnesium Chloride [Slow-Mag] 64 mg PO DAILY #30 tab 02/24/20 Potassium Chloride [K-Dur] 20 meq PO DAILY #30 tab.er.prt 02/24/20 Review of Systems General: Unremarkable Eyes: Unremarkable ENT: Unremarkable Respiratory: Unremarkable Cardiovascular: Chest Pain Gastrointestinal: Unremarkable Genitourinary: Unremarkable Musculoskeletal: Unremarkable Integumentary: Other (Decubitus ulcer in the sacral region) Neurological: Unremarkable Lymphatics: Unremarkable <Zoltan Higgins - Last Filed: 02/23/20 01:29> Physical Examination - Vital Signs Temperature: 97.6 F Blood Pressure: 121/63 Pulse: 121 Respirations: 19 Pulse Ox (%): 100 (Room air) - Physical Exam General: Alert, In no apparent distress, Oriented x3, Cooperative HEENT: Mucous membr. moist/pink, EOMI Neck: Supple, 2+ carotid pulse no bruit, JVD not distended, No Thyromegaly Respiratory: Clear to auscultation bilaterally, Normal air movement Cardiovascular: No edema, Normal pulses, Normal S1 S2, No gallops, No rubs, No murmurs, Irregular heart rate/rhythm (Tachycardic) Capillary refill: <2 Seconds Gastrointestinal: Normal bowel sounds, Soft and benign, Non-distended, No ascites, No tenderness, No masses, No rebound, No guarding, Other (Ostomy site located in the right lower quadrant of the abdomen. Stoma pink with normal appearing tissue. No surrounding cellulitis or degradation of tissue noted) Musculoskeletal: No clubbing, No swelling, No contractures, No erythema, No tenderness, No warmth Integumentary: Other (Stage II sacral ulcer noted) Neurological: Normal speech, Normal strength at 5/5 x4 extr, Normal tone, Sensation intact, Cranial nerves 3-12 intact, Normal affect Lymphatics: No axilla or inguinal lymphadenopathy - Studies Laboratory Data (last 24 hrs) 02/22/20 21:07: Lipase Cancelled 02/22/20 21:05: PT 19.2 H, INR 1.64 02/22/20 21:05: WBC 17.6 H, Hgb 7.5 L*, Hct 22.3 L, Plt Count 382 02/22/20 20:48: Sodium 133 L, Potassium 3.9, BUN 18, Creatinine 1.34 H, Glucose 133 H, Magnesium 1.3 L* D, Total Bilirubin 0.7, AST 48 H, ALT 37, Alkaline Phosphatase 197 H, Lipase 181 <Zoltan Higgins - Last Filed: 02/23/20 01:29> - Studies Microbiology Data (last 24 hrs): 02/22/20 22:35 Blood - Blood Aerobic Blood Culture - Final No growth in 5 days. 02/22/20 22:35 Blood - Blood Anaerobic Blood Culture - Final No growth in 5 days. 02/22/20 22:15 Blood - Blood Aerobic Blood Culture - Final No growth in 5 days. 02/22/20 22:15 Blood - Blood Anaerobic Blood Culture - Final No growth in 5 days. 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 mellitus watermelon harvesting supervisor insulin use: with watermelon harvesting supervisor use Diabetes mellitus complication status: with circulatory complication Diabetes mellitus complication detail: with other circulatory complications Qualified Code(s): 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 Patient will be admitted to telemetry floor for further workup of her anemia, hypomagnesemia, chest pain 2. Cardiology will be consulted for the chest pain with radiation and for the complications secondary to her anticoagulation which is needed for her aortic valve replacement 3. We will recheck patient's hemoglobin 2 hr post transfusion to ensure stabilization. For the time being patient will continue to be heparinized as risk versus benefit outweighs the microscopic bleeding at this time 4. Patient did have elevated white cell count with tachycardia in the emergency room. Patient had blood cultures obtained and pro calcitonin. Still waiting on pro cow to come back. For the time being will monitor this to see if there is any signs of septicemia present 5. Troponins will be followed over the next several hr to ensure stabilization. EKGs as necessary 6. Patient will be placed on magnesium protocol and will be replaced according to protocol for her hypomagnesmia 7. Will monitor all other labs in recheck in the morning. Discharge Plan: Home Plan to discharge in: 48 Hours - Advance Directives Does patient have a Living Will: No Does patient have a Durable POA for Healthcare: No - Code Status/Comfort Care Code Status Assessed: No Critical Care: No Time Spent Managing Pts Care (In Minutes): 80 <Zoltan Higgins - Last Filed: 02/23/20 01:29> - Problems (Diagnosis) (1) Chest pain Status: Acute Qualifiers: Chest pain type: unspecified Qualified Code(s): R07.9 - Chest pain, unspecified (2) Diabetes mellitus Status: Chronic Qualifiers: Diabetes mellitus type: due to underlying condition Diabetes mellitus watermelon harvesting supervisor insulin use: with watermelon harvesting supervisor use Diabetes mellitus complication status: with circulatory complication Diabetes mellitus complication detail: with other circulatory complications Qualified Code(s): 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 Planned for transfer to general medical floor at this time. <Vidal Thomas - Last Filed: 02/28/20 03:42>
[2020-02-23] MEDS ORDERED: HEPARIN/D5W 25,000 UNIT/500 ML BAG IV SCH (03:00)
[2020-02-23] MEDS ORDERED: ONDANSETRON 4 MG/2 ML VIAL IV PRN (03:00)
[2020-02-23 03:04] VITALS: BMI 25.6
--- NOTE | 2020-02-23 06:19 | EKG ---
Test Date: 2020-02-22 Test Time: 18:59:11 [employer] Technology Instructor: RACHEL MEASUREMENT RESULTS: Intervals: Rate: 120 DC: 114 QRSD: 142 QT: 382 QTc: 539 [place]: P: 84 DC: 114 QRS: 29 T: -88 INTERPRETIVE STATEMENTS: Sinus tachycardia Left bundle branch block Abnormal ECG Compared to ECG 09/23/2018 03:29:37 Left bundle-branch block now present Sinus rhythm no longer present T-wave abnormality no longer present Electronically Signed On 02-23-20 06:17:57 ADVERTISING COPY WRITER by Delfino Guzmán
[2020-02-23 07:49] LABS: Basophils % 1.1 % (0-1.3); Hematocrit 27.3 % (36.0-45.0); Lymphocytes % 16.5 % (15.3-44.8); MPV 7.5 fL (7.6-11.3); RBC Red Blood Cell Count 3.21 M/uL (3.86-4.86)
[2020-02-23] MEDS ORDERED: PNEUMOCOCCAL VACCINE 0.5 ML IMVAC ONE (08:00)
[2020-02-23] MEDS ORDERED: ASPIRIN EC 81 MG TAB PO SCH (09:00)
[2020-02-23 09:48] LABS: Potassium 3.4 mmol/L (3.5-5.1)
[2020-02-23 15:24] LABS: Basophils % 1.3 % (0-1.3); Hematocrit 26.5 % (36.0-45.0); Lymphocytes % 17.3 % (15.3-44.8); MPV 7.9 fL (7.6-11.3); RBC Red Blood Cell Count 3.12 M/uL (3.86-4.86)
[2020-02-23] MEDS ORDERED: WARFARIN SODIUM 3 MG TAB PO SCH (17:00)
[2020-02-23 18:18] LABS: BUN Blood Urea Nitrogen 13 mg/dL (7-18); Bicarbonate 30 mmol/L (21-32); Folic Acid, (Folate) > 20.0 ng/mL (3.1-17.5); Glucose Level 104 mg/dL (74-106); Magnesium 1.6 mg/dL (1.8-2.4); NT PRO-BNP 3688 pg/mL (<450); Potassium 3.3 mmol/L (3.5-5.1); Sodium Level 136 mmol/L (136-145)
--- NOTE | 2020-02-23 18:27 | RAD REPORT ---
EXAM DESCRIPTION: CT - Chest Abd Pelvis Wo Con - 02/23/2020 7:13 am CLINICAL HISTORY: The patient is 79 years old and is Female; Congestion;Abdominal distention TECHNIQUE: Axial computed tomography images of the chest, abdomen and pelvis without intravenous con trast. Sagittal and coronal reformatted images were created and reviewed. This CT exam was perfor med using one or more of the following dose reduction techniques: automated exposure control, adjus tment of the mA and/or kV according to patient size, and/or use of iterative reconstruction technique . COMPARISON: No relevant prior studies available. FINDINGS: CHEST: LUNGS: Minimal linear scarring within the lingula is present. PLEURAL SPACE: Unremarkable. No significant effusion. No pneumothorax. HEART: Calcification of mitral annulus is present. ABDOMEN: LIVER: Homogeneous without focal mass. GALLBLADDER AND BILE DUCTS: Surgical clips are present in the right upper quadrant, consistent wi th previous cholecystectomy. PANCREAS: The pancreas is atrophic. No ductal dilation. SPLEEN: Unremarkable. ADRENALS: Unremarkable. No mass. KIDNEYS AND URETERS: No obstructing stones. No hydronephrosis. No perinephric fluid. STOMACH AND BOWEL: The stomach is not well distended. Postsurgical change consistent with a parti al colectomy is noted. A right lower quadrant ostomy is in place. No dilated loops of bowel are seen. There is no bowel obstruction. PELVIS: APPENDIX: See above. BLADDER: A Sosa catheter is present within the bladder. No stones. REPRODUCTIVE: The patient is status post hysterectomy. CHEST, ABDOMEN and PELVIS: INTRAPERITONEAL SPACE: Unremarkable. No significant fluid collection. No free air. BONES/JOINTS: Median sternotomy wires are noted. Mild degenerative change of the bones is noted . SOFT TISSUES: A 4.7 x 3.6 cm low attenuating collection within the left inguinal region is presen t. A second smaller right low attenuating inguinal collection measuring 2.8 x 2.6 cm is present. Ev idence of a prior midline abdominal incision is present. Mild opening of this incision with minimal s kin thickening and inflammation is present with a wound VAC in place. There is no drainable fluid col lection within this region. VASCULATURE: Atherosclerosis of the vasculature is present. No aortic aneurysm. LYMPH NODES: Unremarkable. No enlarged lymph nodes. IMPRESSION: 1. Large low attenuating collection within the left inguinal region extending into the proximal upper thigh is present. A smaller low attenuating collection within the right inguinal geo on is also present. Findings may be postprocedural and may be secondary to seroma. The right inguinal low attenuating collection is slightly increased in density compared to left. A solid-appearing mass is within the differential. Correlation with prior imaging and/or ultrasound may be useful. 2. Wound VAC in place along the midline abdominal incision. No underlying drainable fluid collectio n is noted. 3. Chronic findings as detailed above. Electronically signed by: Nanette Kent MD 02/22/2020 11:05 PM OUTSOLE LEVELER Due to temporary technical issues with the PACS/Fluency reporting system, reports are being signed by the in house radiologists without review as a courtesy to insure prompt reporting. The interpreting radiologist is fully responsible for the content of the report.
[2020-02-23] MEDS: SODIUM BICARB 325 MG TAB PO SCH (20:40)
[2020-02-23] MEDS: JUVEN PACKET PO SCH (20:42)
[2020-02-23] MEDS: METOPROLOL TAR 25 MG TAB PO SCH (20:44)
[2020-02-23] MEDS ORDERED: ATORVASTATIN 40 MG TAB PO SCH (21:00)
[2020-02-23] MEDS ORDERED: HOME MED 1 EA UNK (Sodium Bicarbonate [Sodium Bicarbonate] 650 MG Tablet) PO SCH (21:00)
[2020-02-24 06:02] LABS: Potassium 3.2 mmol/L (3.5-5.1)
[2020-02-24 06:26] LABS: Absolute Lymphocytes (CBC) 2.2 K/uL (0.7-4.9); Basophils % 0.8 % (0-1.3); Hematocrit 27.9 % (36.0-45.0); Lymphocytes % 16.5 % (15.3-44.8); MPV 8.1 fL (7.6-11.3); RBC Red Blood Cell Count 3.28 M/uL (3.86-4.86)
[2020-02-24] MEDS ORDERED: LEVOTHYROXINE SOD 0.125 MG TAB PO SCH (06:30)
[2020-02-24 07:02] LABS: Magnesium 1.7 mg/dL (1.8-2.4)
[2020-02-24] MEDS ORDERED: PANTOPRAZOLE 40MG TABLET PO SCH (07:30)
[2020-02-24 08:41] VITALS: TEMP 98.2
[2020-02-24] MEDS ORDERED: HOME MED 1 EA UNK (Omeprazole Magnesium [Prilosec Otc] 20 MG Tablet.Dr) PO SCH (09:00)
[2020-02-24] MEDS ORDERED: ASPIRIN 81 MG CHEWABLE TABLET PO SCH (09:00)
[2020-02-24] MEDS ORDERED: SERTRALINE HCL 50 MG TAB PO SCH (09:00)
[2020-02-24] MEDS ORDERED: LEVOTHYROXINE SODIUM 125 MCG PO SCH (09:00)
[2020-02-24] MEDS ORDERED: [UNRECOGNIZED DRUG - OTHER] PO SCH (09:00)
[2020-02-24] MEDS ORDERED: FERROUS SULFATE 325 MG TAB PO SCH (09:00)
[2020-02-24] MEDS: METOPROLOL TAR 25 MG TAB PO SCH (09:00)
[2020-02-24] MEDS ORDERED: PSYLLIUM 1 PKT PO SCH (09:00)
[2020-02-24 09:02] LABS: Platelet Estimate ADEQ; White Blood Cell Scan OK (OK)
[2020-02-24 09:03] LABS: Blood Morphology Comment NOT SEEN (NOT SEEN)
[2020-02-24] MEDS: SODIUM BICARB 325 MG TAB PO SCH (09:58)
[2020-02-24] MEDS: JUVEN PACKET PO SCH (10:00)
--- NOTE | 2020-02-24 10:14 | P.PN ---
Subjective Date of Service: 02/23/20 Chief Complaint: Subjective: No new changes, No C/O voiced, Improving Patient is feeling okay. No complaints. Chest pain is resolved. Review of Systems 10-point ROS is otherwise unremarkable Physical Examination - Vital Signs Temperature: 98.2 F Blood Pressure: 98/53 Pulse: 83 Respirations: 16 Pulse Ox (%): 98 - Physical Exam General: Alert, In no apparent distress, Oriented x3 Respiratory: Clear to auscultation bilaterally, Normal air movement Cardiovascular: Regular rate/rhythm, Normal S1 S2, No murmurs Gastrointestinal: Normal bowel sounds, Soft and benign, Non-distended, No tenderness Musculoskeletal: No clubbing, No swelling, No tenderness Neurological: Sensation intact, Cranial nerves 3-12 intact - Studies Medications List Reviewed: Yes Assessment & Plan - Problems (Diagnosis) (1) Chest pain Current Visit: Yes Status: Acute Qualifiers: Chest pain type: unspecified Qualified Code(s): R07.9 - Chest pain, unspecified (2) Diabetes mellitus Current Visit: Yes Status: Chronic Qualifiers: Diabetes mellitus type: due to underlying condition 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 Serial troponins and EKG 2. Appreciate Cardiology consultation 3. Recent Coronary artery bypass grafting; unlikely to have any plaquing. Spoke with Cardiology and they recommend outpatient follow-up with Cardiology 4. Anti-platelet therapy, anti coagulation, beta-tommy, statin, and O2 as needed 5. IV morphine for pain 6. Nitro p.r.n. 7. GI and DVT prophylaxis Discharge Plan: Home Plan to discharge in: Greater than 2 days - Advance Directives Does patient have a Living Will: No Does patient have a Durable POA for Healthcare: No - Code Status/Comfort Care Code Status Assessed: Yes Code Status: Full Code Critical Care: No Time Spent Managing PTS Care (In Minutes): 35
[2020-02-24] MEDS ORDERED: MAGNESIUM OXIDE 400 MG TAB PO ONE (12:02)
[2020-02-24] MEDS ORDERED: POTASSIUM CL SA 10 MEQ TAB PO ONE (12:09)
[2020-02-24 12:47] VITALS: O2SAT 98
[2020-02-24] MEDS ORDERED: KCL 20 MEQ/100 mL IVPB 20 MEQ/100 ML BAG IV SCH (13:00)
[2020-02-24 15:23] VITALS: BP 117/58
--- NOTE | 2020-02-24 17:08 | CON ---
Date of Consultation: 02/23/2020 The patient was admitted on 02/23/[address] Thomas. I saw the patient on 02/23/2020. Reason For Consultation: Chest pain. Description Of Procedure: Mrs. Sherman is an 79-year-old Latin-Greek woman who just recently, I yasmeen priyankapilar in November, spend almost 6 weeks in the hospital following CABG and a mechanical aortic valve replacement that was done by Dr. Thomas. She is a patient of Dr. Anguiano. She comes in slightly hypot ensive with some chest pressure. She denied any nausea or vomiting or diaphoresis. She denied any P ND, orthopnea, pedal edema, palpitation, or syncope. Her BNP was 3127. Her troponin was negative. Her magnesium was 1.3, supplemented to 1.7. Her creatinine 1.34. She was anemic at 7.5. Chest x-ra y was negative. By the time I saw her, her chest pain has abated to about a 1/10. She denied fever or chills or cough. Past Medical History: CAD, status post CABG, aortic stenosis status post AVR, dyslipidemia, hypothyr oidism, diabetes. Allergies: NONE. Review of Systems: Negative. Social History: Negative. Family History: Noncontributory. Medications: At home include aspirin, insulin, Synthroid, metformin, Zocor, hydrochlorothiazide, lis inopril. Physical Examination: General: She appeared older than her stated age, very thin and frail. HEENT: Negative. Neck: Supple without any bruit, lymphadenopathy, JVD, or thyromegaly. Chest: Clear to auscultation and percussion. Cardiac: Regular rhythm and rate with a crisp aortic valve replacement sound. Abdomen: Benign. Extremities: No clubbing, cyanosis, or edema. Diagnostic Data: As stated earlier. EKG showed a left bundle branch block. Impression And Plan: Chest pain in a patient with recent coronary artery bypass graft and aortic moustapha ve replacement. This may be a gastroesophageal reflux issue or midsternal pain secondary to recent s urgery. I seriously doubt that she close any of her graft that soon. She certainly is not a don te for another catheterization at this point. I do recommend doing a 2D echocardiogram to evaluate h er valve and her ejection fraction, make sure she does not have any pericardial effusion. I would de finitely stop the heparin drip with her anemia. Her abnormal blood work may be secondary to chronic coronary artery disease as well as anemia and renal insufficiency. She may need some more magnesium. I will continue her present regimen as is, but she should also be on metoprolol which according to the daughter, she is taking it right now. She should be on anticoagulants, preferably warfarin with her aortic valve. The case was discussed with Dr. Thomas. Whenever she is pain-free, she needs to go home and see Dr. Anguiano in the near future. [place] Voice ID: [id number] Report ID: [id number]
--- NOTE | 2020-02-28 03:45 | P.DS ---
Discharge Date: 02/24/20 Primary Care Provider: Dr. 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 Patient will be admitted to the hospital for further evaluation. Hospital Course: Patient is clinically doing better. Troponins were negative x3. Patient is stable for discharge home. We will check a room air O2 sats. If room air oxygen is stable and discharged home. Vital Signs/Physical Exam: Temp Pulse Resp BP Pulse Ox 98.2 F 83 16 117/58 L 98 02/24/20 12:00 02/24/20 12:00 02/24/20 12:00 02/24/20 12:00 02/24/20 12:00 General: Alert, In no apparent distress, Oriented x3 Laboratory Data at Discharge: WBC 13.6 K/uL (4.3-10.9) H D 02/24/20 05:21 Hgb 9.1 g/dL (12.0-15.0) L 02/24/20 05:21 Hct 27.9 % (36.0-45.0) L 02/24/20 05:21 Plt Count 351 K/uL (152-406) 02/24/20 05:21 PT 19.2 SECONDS (9.5-12.5) H 02/22/20 21:05 INR 1.64 02/22/20 21:05 APTT 66.4 SECONDS (24.3-36.9) H 02/23/20 15:00 Sodium 138 mmol/L (136-145) 02/24/20 05:21 Potassium 3.2 mmol/L (3.5-5.1) L 02/24/20 05:21 BUN 19 mg/dL (7-18) H 02/24/20 05:21 Creatinine 0.98 mg/dL (0.55-1.3) 02/24/20 05:21 Glucose 88 mg/dL (74-106) 02/24/20 05:21 Magnesium 1.7 mg/dL (1.8-2.4) L 02/24/20 05:21 Total Bilirubin 0.7 mg/dL (0.2-1.0) 02/22/20 20:48 AST 48 U/L (15-37) H 02/22/20 20:48 ALT 37 U/L (12-78) 02/22/20 20:48 Alkaline Phosphatase 197 U/L (45-117) H 02/22/20 20:48 Troponin I 0.02 ng/mL (0.0-0.045) 02/23/20 08:35 Lipase Cancelled 02/22/20 21:07 Home Medications: Aspirin 81 mg PO DAILY 02/23/20 Atorvastatin Calcium [Lipitor] 40 mg PO BEDTIME 02/23/20 Ferrous Sulfate [Ferrous Sulfate*] 325 mg PO DAILY 02/23/20 Levothyroxine Sodium [Levothyroxine] 125 mcg PO DAILY 02/23/20 Metoprolol Tartrate [Lopressor*] 25 mg PO BID 02/23/20 Mirtazapine [Remeron*] 15 mg PO BEDTIME 02/23/20 Omeprazole Magnesium [Prilosec Otc] 20 mg PO DAILY 02/23/20 Psyllium Husk/Aspartame [Metamucil Fiber Singles Packet] 1 pkg PO DAILY 02/23/20 Sertraline [Zoloft*] 50 mg PO DAILY 02/23/20 Sodium Bicarbonate 2 tab PO TID 02/23/20 Warfarin Sodium [Coumadin*] 3 mg PO DAILY AT SUPPER 02/23/20 Amox/Clavulanate [Augmentin 875-125 Tab] 875 mg PO BID #10 tab 02/24/20 Luc [Luc*] 1 pkt PO BID #60 powd.pack 02/24/20 Magnesium Chloride [Slow-Mag] 64 mg PO DAILY #30 tab 02/24/20 Potassium Chloride [K-Dur] 20 meq PO DAILY #30 tab.er.prt 02/24/20 New Medications: Amox/Clavulanate [Augmentin 875-125 Tab] 875 mg PO BID #10 tab Luc [Luc*] 1 pkt PO BID #60 powd.pack Potassium Chloride [K-Dur] 20 meq PO DAILY #30 tab.er.prt Magnesium Chloride [Slow-Mag] 64 mg PO DAILY #30 tab Patient Discharge Instructions: OK TO DC IV AND DC HOME. PLEASE NOTIFY HOME HEALTH WITH PT/NURSING CARE(PATIENT HAS [facility]). FOLLOW-UP WITH PCP IN 1-2 WEEKS. RETURN TO THE ER IF SYMPTOMS WORSENS. CALL ME AT [phone] IF ANY QUESTIONS REGARDING HOSPITAL STAY. FOLLOW-UP WITH TABLE AND DESK FINISHER, DR. JORGE IN 1-2 WEEKS. FOLLOW-UP WITH SURGERY IN 2-4 WEEKS Diet: AHA Activity: Fall precautions Followup: Jean Sutherland MD [Primary Care Provider] - (Call to make an appointment. ) Time spent managing pt's care (in minutes): 25
== END 2020-02-24 15:17 | disposition home health service (06) ==
LOC: ER 18:36 → ERHOLD 02-23 00:11 → INTOOBSV 02-23 00:11 → 2ND 02-23 01:48
PROVIDERS: ADMIT Hospitalist; ATTEND Hospitalist
DX: R07.9 Chest pain, unspecified (principal); D64.9 Anemia, unspecified; E83.42 Hypomagnesemia; E11.59 Type 2 diabetes mellitus with other circulatory complications; Z20.822 Contact with and (suspected) exposure to COVID-19; Z79.4 Long term (current) use of insulin; Z95.2 Presence of prosthetic heart valve; Z93.3 Colostomy status; I10 Essential (primary) hypertension; E03.9 Hypothyroidism, unspecified; Z95.1 Presence of aortocoronary bypass graft; E78.5 Hyperlipidemia, unspecified; D72.829 Elevated white blood cell count, unspecified; K92.2 Gastrointestinal hemorrhage, unspecified; R94.31 Abnormal electrocardiogram [ECG] [EKG]; I25.10 Atherosclerotic heart disease of native coronary artery without angina pectoris; I44.7 Left bundle-branch block, unspecified
CPT/HCPCS: 93005; 87040 ×4; 85025 ×4; 80048 ×4; 36415 ×3; 86900; 83735 ×4; 86850; 85610; 85044; 86901; 80076; 83605 ×2; 85730 ×3; 84443; 84484 ×3; 84439; 82746; 82607; 83690; 83540; 84145 ×2; 83880 ×2; 71250; 74176; 71045; 99285; U0003; J1644 ×2; J3475; J0696; P9016; J7040; J7030

== ENCOUNTER 2020-04-04 17:48 | Inpatient (IN) | payer OTHER, MEDICARE ==
--- OUTSIDE RECORDS SUMMARY | 2020-04-04 18:13 | XMS REPORT | Continuity of Care Document ---
:[address] [facility] t Address [address] [place] [address] Care Team Providers Name Role Phone Doctor Unassigned, Name Attending Clinician Unavailable Ellyn RN Attending Clinician Unavailable Payers Payer Name Policy Type Policy Number Effective Date Expiration Date S ource Problems This patient has no known problems. Allergies, Adverse Reactions, Alerts Allergy Allergy Status Severity Reaction(s) Onset Inactive Treating Comm ents Source Name Type Date Date Clinician morphine DA Active [facility] 02-24 00:00: [address] codeine DA Active [facility] 02-24 00:00: [address] No Known DA Active U 2019-02 [facility] 1- s 00:00: [address] No Known DA Active U 2020- [facility] 029 s 00:: [address] No Known DA Active U 2019- [facility]ie 0-16 s 00:: [address] Medications This patient has no known medications. Procedures This patient has no known procedures. Encounters Start End Encounter Admission Attending Care Care Encounter Source Date/Time Date/Time Type Type Clinicians Facility Department ID 2020-03-04 2020-03-04 Orders Doctor GIORGI [id number] 00:00:00 00:00:00 Only Unassigned, DESEAN [id number] [place] [facility] [id number] 2020-02-22 2020-02-22 Transition Zuhair Ragland [id number] 00:00:00 00:00:00 of Care Lisa Oneal 350.1.13.10 [place] 4.2.7.2.686 [id number] Results Test Description Test Time Test Comments Results Result Comments Source TRANSFERRRIN 2020-03-01 07:17:00 Test Item Value Reference Range Interpretation Comme nts TRANSFERRRIN (test code = 130 mg/dL 192-364 L Pe rformed At: [facility] TRANSF) [address] [id number] Trinidad MD Ph:[phone] PROTHROMBIN [id number] 16:15:00 Test Item Value Reference Range Interpretation Comments PROTHROMBIN TIME 28.3 SECONDS 9.4-12.5 H PATIENT (test code = [...] recurrent syste eric embolism. 3.0 - 4.5 PATIENT IS A HARD STICK. UNABLE TO GET BLOOD SAMPLE.NOTIFIED PATIENT CARE STAFF: VELIA 02/29/20 AT 1359 BY YASHIRAERPROTHROMBIN [id number] 11:04:00 Test Item Value Reference Range Interpretation Comments PROTHROMBIN TIME 24.6 SECONDS 9.4-12.5 H PATIENT (test code = PTP) INTERNATIONAL NORMAL 2.2 The INR is to be RATIO (test [...] eric embolism. 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: CHECK AT LEAST 30 MIN AFTER AFTER FFP INFUSIONPROTHROMBIN [id number] 08:05:00 Test Item Value Reference Range Interpretation Comments PROTHROMBIN TIME 40.1 SECONDS 9.4-12.5 HH PATIENT (test code = PTP) INTERNATIONAL NORMAL 3.[address] DODGE (test code = BRUNO& READBACK INR) ON 02/29/20 AT 0805 BY Pop Loo INR is to be us ed only [...] recurrent syste eric embolism. 3.0 - 4.5 PROTHROMBIN [id number] 16:53:00 Test Item Value Reference Range Interpretation Comments PROTHROMBIN TIME 35.3 SECONDS 9.4-12.5 H PATIENT (test code = PTP) INTERNATIONAL NORMAL 3.1 The INR is to be RATIO (test [...] eric embolism. 3.0 - 4.5 BASIC METABOLIC [id number] 09:10:00 Test Item Value Reference Range Interpretation Comments SODIUM (test code = 133 MMOL/L 137-145 L NA) POTASSIUM (test code = 3.5 MMOL/L 3.5-5.1 N K) CHLORIDE (test code = 100 MMOL/L 98-107 N CL) CARBON DIOXIDE (test 24 MMOL/L 22-30 N code = CO2) GLUCOSE (test code = 86 MG/DL 74-106 N GLU) BLOOD UREA NITROGEN 19 MG/DL 7-17 H (test code = BUN) GLOMERULAR FILTRATION > 60 Report ing units: RATE (test code = GFR) ml/mi n/1.73 m2 (Modified MDRD Formula)Referen ce Range: > or = 6 0 ml/min/1.73 m2 CREATININE (test code 0.80 MG/DL 0.52-1.04 N = CREAT) CALCIUM (test code = 8.6 MG/DL 8.4-10.2 N CA) [id number] 09:10:00 Test Item Value Reference Range Interpretation Comments FERRITIN (test code = MARSHALL) 1900.0 NG/ML 11.1-264 H FE W/TOTAL IRON BINDING CAP.2020-02-28 07:11:00 Test Item Value Reference Range Interpretation Comments SERUM IRON (test code = IRON) 43 MCG/DL 37-170 N TOTAL IRON BINDING CAPACITY (test 206 MCG/DL 265-497 L code = TIBC) IRON SATURATION (test code = 21 % 12-57 N FESAT) BASIC METABOLIC [id number] 07:10:00 Test Item Value Reference Range Interpretation Comments SODIUM (test code = 133 MMOL/L 137-145 L NA) POTASSIUM (test code = 3.5 MMOL/L 3.5-5.1 N K) CHLORIDE (test code = 100 MMOL/L 98-107 N CL) CARBON DIOXIDE (test 24 MMOL/L 22-30 N code = CO2) GLUCOSE (test code = 86 MG/DL 74-106 N GLU) BLOOD UREA NITROGEN 19 MG/DL 7-17 H (test code = BUN) GLOMERULAR FILTRATION > 60 Report ing units: RATE (test code = GFR) ml/mi n/1.73 m2 (Modified MDRD Formula)Referen ce Range: > or = 6 0 ml/min/1.73 m2 CREATININE (test code 0.80 MG/DL 0.52-1.04 N = CREAT) CALCIUM (test code = 8.6 MG/DL 8.4-10.2 N CA) [id number] 07:10:00 Test Item Value Reference Range Interpretation Comments FERRITIN (test code = MARSHALL) NG/ML 11.1-264 PROTHROMBIN [id number] 07:07:00 Test Item Value Reference Range Interpretation Comments PROTHROMBIN TIME 43.1 SECONDS 9.4-12.5 HH CALLED TO Belem Thompson PATIENT (test code = & PURNIMA OLIVIA ON PTP) 02/28/20 AT 070 3 BY James Bean INTERNATIONAL NORMAL 3.8 HH CALLED TO Yassine Thompson RATIO (test code = & LEANA Matt ON INR) 02/28/20 AT 070 3 BY James BeanThe INR is to be used o nly for monitoring oral anticoagulantth erap y. INDICATION [...] eric embolism. 3.0 - 4.5 BASIC METABOLIC [id number] 07:04:00 Test Item Value Reference Range Interpretation Comments SODIUM (test code = 133 MMOL/L 137-145 L NA) POTASSIUM (test code = 3.5 MMOL/L 3.5-5.1 N K) CHLORIDE (test code = 100 MMOL/L 98-107 N CL) CARBON DIOXIDE (test [...] CALCIUM (test code = MG/DL 8.7-9.7 CA) [id number] 07:04:00 Test Item Value Reference Range Interpretation Comments FERRITIN (test code = MARSHALL) NG/ML 11.1-264 BASIC METABOLIC [id number] 07:01:00 Test Item Value Reference Range Interpretation Comments SODIUM (test code = NA) 133 MMOL/L 137-145 L POTASSIUM (test code = K) MMOL/L 3.5-5.1 CHLORIDE (test code = CL) 100 MMOL/L 98-107 N CARBON DIOXIDE (test code = CO2) MMOL/L 22-30 GLUCOSE (test code = GLU) MG/DL 74-106 BLOOD UREA NITROGEN (test code = MG/DL 7-17 BUN) GLOMERULAR FILTRATION RATE (test code = GFR) CREATININE (test code = CREAT) MG/DL 0.52-1.04 CALCIUM (test code = CA) MG/DL 8.7-9.7 [id number] 07:01:00 Test Item Value Reference Range Interpretation Comments FERRITIN (test code = MARSHALL) NG/ML 11.1-264 BASIC METABOLIC [id number] 07:01:00 Test Item Value Reference Range Interpretation Comments SODIUM (test code = NA) 133 MMOL/L 137-145 L POTASSIUM (test code = K) 3.5 MMOL/L 3.5-5.1 N CHLORIDE (test code = CL) 100 MMOL/L 98-107 N CARBON DIOXIDE (test code = CO2) MMOL/L 22-30 GLUCOSE (test code = GLU) MG/DL 74-106 BLOOD UREA NITROGEN (test code = MG/DL 7-17 BUN) GLOMERULAR FILTRATION RATE (test code = GFR) CREATININE (test code = CREAT) MG/DL 0.52-1.04 CALCIUM (test code = CA) MG/DL 8.7-9.7 [id number] 07:01:00 Test Item Value Reference Range Interpretation Comments FERRITIN (test code = MARSHALL) NG/ML 11.1-264 FE W/TOTAL IRON BINDING CAP.2020-02-28 07:00:00 Test Item Value Reference Range Interpretation Comments SERUM IRON (test code = IRON) 43 MCG/DL 37-170 N TOTAL IRON BINDING CAPACITY (test MCG/DL 265-497 code = TIBC) IRON SATURATION (test code = FESAT) % 12-57 RETICULOCYTE [id number] 06:35:00 Test Item Value Reference Range Interpretation Comments RETICULOCYTE COUNT (test code = RETICT) 1.2 % 0.5-1.5 N CBC W/AUTO [id number] 06:33:00 Test Item Value Reference Range Interpretation Comments WHITE BLOOD CELL (test code = 8.6 K/MM3 3.8-9.8 N WBC) RED BLOOD CELL (test code = 3.14 M/MM3 3.58-4.97 L RBC) HEMOGLOBIN (test code = HGB) 8.7 G/DL 11.2-14.9 L HEMATOCRIT (test code = HCT) 28.8 % 33.2-43.5 L MEAN CELL VOLUME (test code = 92 fL 80.7-99.1 N MCV) MEAN CELL HGB (test code = MCH) 27.7 pg 27.0-34.1 N MEAN CELL HGB CONCETRATION 30.2 % 32.2-35.7 L (test code = MCHC) RED CELL DISTRIBUTION WIDTH 15.1 % 12.1-15.2 N (test code = RDW) PLATELET COUNT (test code = 343 K/MM3 129-368 N PLT) MEAN PLATELET VOLUME (test code 9.6 fl 7.4-10.4 N = MPV) NEUTROPHIL % (test code = NT%) 61.5 % 43-75 N IMMATURE GRANULOCYTE % (test 0.6 % 0.0-2.0 N code = IG%) LYMPHOCYTE % (test code = LY%) 26.5 % 14-44 N MONOCYTE % (test code = MO%) 6.3 % 4-13 N EOSINOPHIL % (test code = EO%) 4.6 % 0-6 N BASOPHIL % (test code = BA%) 0.5 % 0-2 N NUCLEATED RBC % (test code = 0.0 % 0-1.0 N NRBC%) NEUTROPHIL # (test code = NT#) 5.30 K/mm3 2.0-7.6 N IMMATURE GRANULOCYTE # (test 0.05 x10 3/uL 0-0.03 H code = IG#) LYMPHOCYTE # (test code = LY#) 2.28 K/mm3 1.0-3.8 N MONOCYTE # (test code = MO#) 0.54 K/mm3 0.1-0.8 N EOSINOPHIL # (test code = EO#) 0.40 K/mm3 0.0-0.2 H BASOPHIL # (test code = BA#) 0.04 K/mm3 0.0-0.2 N NUCLEATED RBC # (test code = 0.00 K/mm3 0.0-0.1 N NRBC#) PROTHROMBIN [id number] 21:27:00 Test Item Value Reference Range Interpretation Comments PROTHROMBIN TIME 38.5 SECONDS 9.4-12.5 CALLED TO Belem WOLFF PATIENT (test code = Bartolome MCKEON ON PTP) 02/27/20 AT 212 7 BY Loretta Leslie INTERNATIONAL NORMAL 3.4 The INR is to be RATIO (test [...] - 4.5 UNABLE TO DRAW BLOOD, REASON: WAIT 2 HRS DO @1999NOTIFIED PATIENT CARE STAFF: ARACELI 02/27/20 AT 1718 BY Ashutosh Cleveland BEDSIDE [id number] 19:55:00 Test Item Value Reference Range Interpretation Comments GLUCOSE BEDSIDE TESTING (test code = 91 MG/DL 60-99 N GLUBED) [id number] 15:47:00 Test Item Value Reference Range Interpretation Comments PREALBUMIN (test code = PREALB) 13 MG/DL 17-42 L UR SMEAR EOSINOPHIL [id number] 07:16:00 Test Item Value Reference Range Interpretation Comments UR SMEAR EOSINOPHIL COUNT (test code = NONE RARE EOSCTU) BASIC METABOLIC [id number] 07:04:00 Test Item Value Reference Range Interpretation Comments SODIUM (test code = 135 MMOL/L 137-145 L NA) POTASSIUM (test code = 3.8 MMOL/L 3.5-5.1 N K) CHLORIDE (test code = 103 MMOL/L 98-107 N CL) CARBON DIOXIDE (test 24 MMOL/L 22-30 N code = CO2) ANION GAP (test code = 12 MMOL/L 14-24 L GAP) GLUCOSE (test code = 68 MG/DL 74-106 L GLU) BLOOD UREA NITROGEN 16 MG/DL 7-17 N (test code = BUN) GLOMERULAR FILTRATION 60 Report ing units: RATE (test code = GFR) ml/mi n/1.73 m2 (Modified MDRD Formula)Referen ce Range: > or = 6 0 ml/min/1.73 m2 CREATININE (test code 0.90 MG/DL 0.52-1.04 N = CREAT) CALCIUM (test code = 8.4 MG/DL 8.4-10.2 N CA) CBC W/AUTO [id number] 06:56:00 Test Item Value Reference Range Interpretation Comments WHITE BLOOD CELL (test code = 9.4 K/MM3 3.8-9.8 N WBC) RED BLOOD CELL (test code = 3.14 M/MM3 3.58-4.97 L RBC) HEMOGLOBIN (test code = HGB) 9.0 G/DL 11.2-14.9 L HEMATOCRIT (test code = HCT) 29.8 % 33.2-43.5 L MEAN CELL VOLUME (test code = 95 fL 80.7-99.1 N MCV) MEAN CELL HGB (test code = MCH) 28.7 pg 27.0-34.1 N MEAN CELL HGB CONCETRATION 30.2 % 32.2-35.7 L (test code = MCHC) RED CELL DISTRIBUTION WIDTH 15.2 % 12.1-15.2 N (test code = RDW) PLATELET COUNT (test code = 341 K/MM3 129-368 N PLT) MEAN PLATELET VOLUME (test code 9.8 fl 7.4-10.4 N = MPV) NEUTROPHIL % (test code = NT%) 68.3 % 43-75 N IMMATURE GRANULOCYTE % (test 0.4 % 0.0-2.0 N code = IG%) LYMPHOCYTE % (test code = LY%) 20.7 % 14-44 N MONOCYTE % (test code = MO%) 7.0 % 4-13 N EOSINOPHIL % (test code = EO%) 2.7 % 0-6 N BASOPHIL % (test code = BA%) 0.9 % 0-2 N NUCLEATED RBC % (test code = 0.0 % 0-1.0 N NRBC%) NEUTROPHIL # (test code = NT#) 6.43 K/mm3 2.0-7.6 N IMMATURE GRANULOCYTE # (test 0.04 x10 3/uL 0-0.03 H code = IG#) LYMPHOCYTE # (test code = LY#) 1.95 K/mm3 1.0-3.8 N MONOCYTE # (test code = MO#) 0.66 K/mm3 0.1-0.8 N EOSINOPHIL # (test code = EO#) 0.25 K/mm3 0.0-0.2 H BASOPHIL # (test code = BA#) 0.08 K/mm3 0.0-0.2 N NUCLEATED RBC # (test code = 0.00 K/mm3 0.0-0.1 N NRBC#) BASIC METABOLIC [id number] 06:27:00 Test Item Value Reference Range Interpretation Comments [...] (test code = CA) MG/DL 8.7-9.7 PROTHROMBIN [id number] 06:24:00 Test Item Value Reference Range Interpretation Comments PROTHROMBIN TIME 72.5 SECONDS 9.4-12.5 HH CALLED TO Belem wolff S PATIENT (test code = & READ BACK ON PTP) 02/27/20 AT 062 2 BY James Bean INTERNATIONAL NORMAL 6.4 HH CALLED TO Kevin S RATIO (test code = & READBA CK ON INR) 02/27/20 AT 062 2 BY James BeanThe INR is to be used o nly for monitoring oral anticoagulantth erap y. INDICATION [...] recurrent syste eric embolism. 3.0 - 4.5 UR SODIUM [id number] 06:06:00 Test Item Value Reference Range Interpretation Comments UR SODIUM RANDOM (test code = RENETTA) 111 MMOL/L 27-287 N UR PROTEIN [id number] 06:06:00 Test Item Value Reference Range Interpretation Comments UR PROTEIN RANDOM (test code = 43 MG/DL 0-11.9 H PROTU) UR CREATININE [id number] 06:06:00 Test Item Value Reference Range Interpretation Comments UR CREATININE RANDOM (test code = 83.4 CREATU) UR OSMOLALITY [id number] 06:06:00 Test Item Value Reference Range Interpretation Comments UR OSMOLALITY RANDOM (test code 469.5 MOS/KG 300-1200 N = OSMOU) UR SODIUM [id number] 05:33:00 Test Item Value Reference Range Interpretation Comments UR SODIUM RANDOM (test code = RENETTA) 111 MMOL/L 27-287 N UR PROTEIN [id number] 05:33:00 Test Item Value Reference Range Interpretation Comments UR PROTEIN RANDOM (test code = 43 MG/DL 0-11.9 H PROTU) UR CREATININE [id number] 05:33:00 Test Item Value Reference Range Interpretation Comments UR CREATININE RANDOM (test code = 83.4 CREATU) UR OSMOLALITY [id number] 05:33:00 Test Item Value Reference Range Interpretation Comments UR OSMOLALITY RANDOM (test code = MOS/KG 300-1200 OSMOU) UR SODIUM [id number] 05:30:00 Test Item Value Reference Range Interpretation Comments UR SODIUM RANDOM (test code = RENETTA) 111 MMOL/L 27-287 N UR PROTEIN [id number] 05:30:00 Test Item Value Reference Range Interpretation Comments UR PROTEIN RANDOM (test code = 43 MG/DL 0-11.9 H PROTU) UR CREATININE [id number] 05:30:00 Test Item Value Reference Range Interpretation Comments UR CREATININE RANDOM (test code = CREATU) UR OSMOLALITY [id number] 05:30:00 Test Item Value Reference Range Interpretation Comments UR OSMOLALITY RANDOM (test code = MOS/KG 300-1200 OSMOU) UR SODIUM [id number] 05:29:00 Test Item Value Reference Range Interpretation Comments UR SODIUM RANDOM (test code = RENETTA) 111 MMOL/L 27-287 N UR PROTEIN [id number] 05:29:00 Test Item Value Reference Range Interpretation Comments UR PROTEIN RANDOM (test code = PROTU) MG/DL 0-11.9 UR CREATININE [id number] 05:29:00 Test Item Value Reference Range Interpretation Comments UR CREATININE RANDOM (test code = CREATU) UR OSMOLALITY [id number] 05:29:00 Test Item Value Reference Range Interpretation Comments UR OSMOLALITY RANDOM (test code = MOS/KG 300-1200 OSMOU) - US RETRO [id number] 22:50:00 [facility] 1940 Sex: F Patient Name: JORGE A HORTA Unit No: [id number] EXAMS: CPT CODE: [id number] US RETRO LTD 64438 Retroperitoneal ultrasound. Location: R16 His tory: Hematuria.. Comparison: 01/02/2020 CT Technique and Findings: Grayscale and color Doppler ultrasound of the kidneys and bladder region were performed. The right kidney measures 10.1 x 4.6 x 3.9 cm. The left kidney measures 10.5 x 5.1 x 4.7 cm. There is no hydronephrosis. No discrete renal cyst is visualized. There is no echogenic renal calculus. The bladder is underdistended with wall measuring 8.5 mm in thickness. There is debris within the bladder. Distal ureteral jets are not demonstrated on this exam. Impression: Debris within the bladder which appears thick-walled concerning for hemorrhagic cystitis. No nephrolithiasis, hydronephrosis or discrete renal cyst. at 2250 Reported and signed by: Donna Oliva MD CC: Jigar Hancock MD; Ramu Sutherland MD Technologist: Citlaly Jones RDMS(AB) Transcrpt Date/Tm/Trnsp: 02/26/2020 (2249) [id number] Orig Print D/T: S: 02/26/2020 (4518) [facility] NAME: JORGE A HORTA [place] PHYS: LEVY.[place] - [place] [address] : 1940 AGE: 79 SEX: F LOC: [phone] A PHONE #: [phone] EXAM DATE: 02/26/2020 STATUS: ADM IN FAX #: [phone] RADIOLOGY NO: PAGE 1 Signed ReportGLUCOSE BEDSIDE [id number] 15:32:00 Test Item Value Reference Range Interpretation Comments GLUCOSE BEDSIDE TESTING (test code = 79 MG/DL 60-99 N GLUBED) LACTIC [id number] 13:01:00 Test Item Value Reference Range Interpretation Comments LACTIC ACID (test code = LACT) 1.3 MMOL/L 0.7-2.1 N GLUCOSE BEDSIDE [id number] 12:21:00 Test Item Value Reference Range Interpretation Comments GLUCOSE BEDSIDE TESTING (test code = 78 MG/DL 60-99 N GLUBED) COMPREHENSIVE METABOLIC [id number] 11:41:00 Test Item Value Reference Range Interpretation Comments SODIUM (test code 137 MMOL/L 137-145 N = NA) POTASSIUM (test 4.1 MMOL/L 3.5-5.1 N code = K) CHLORIDE (test 105 MMOL/L 98-107 code = CL) CARBON DIOXIDE 24 MMOL/L 22-30 N (test code = CO2) ANION GAP (test 12 MMOL/L 14-24 L code = GAP) GLUCOSE (test 91 MG/DL 74-106 code = GLU) BLOOD UREA 19 MG/DL 7-17 H NITROGEN (test code = BUN) GLOMERULAR 48 Reporting units : FILTRATION RATE ml/min/1.73 m2 (Modified (test code = GFR) MDRD Formu la)Reference Range: > or = 6 0 ml/min/1.73 m2 CREATININE (test 1.10 MG/DL 0.52-1.04 H code = CREAT) TOTAL PROTEIN 6.8 G/DL 6.3-8.2 N [facility] Clinical Diagnostic (test code = has made us toby re of PROT) newinformation regarding the potential i nterference ofEltrombopag (a bone marrow stimulan t used to treatthrombocyt onmenia and aplastic anemia ) with specific assays on the Vitros 5600 of which Total Protein is one of thoseassays per formed in our lab.Interfe rence testing perform ed at Ortho determined that Eltrombopag does interfere with Vitros Total Protein asfollowsEltrom bopag Interference fo r Vitros Product Total Protein:======= Eltrombopag Max Observed A vg. BiasConcentrati on Concentration Concentration== ==== 2.5 mg/dl 6.0 g/dl +0.41 +0.34 3.5 mg/dl 6.0 g/dl +0.50 +0.45 5 mg/dl 6.0 g/dl +0.73 +0.65 2.5 mg/dl 8.0 g/dl +0.44 +0.41 3.5 mg/dl 8.0 g/dl +0.55 +0.52 5 mg/dl 8.0 g/dl +0.86 +0.77 ALBUMIN (test 3.3 G/DL 3.5-5.0 L code = ALB) CALCIUM (test 8.4 MG/DL 8.4-10.2 N code = CA) BILIRUBIN TOTAL 0.6 MG/DL 0.2-1.3 Eltrombopag Interference (test code = for Vitros Prod uct TBil, BILT) BuBc: Assa y Eltrombopag Analyte/ Max Observed Avg. Bias Concentrati on Concentration Concentration== ====TBil 7mg/dl T [place]/ 1.2mg/dl +0.23 mg.dl +0.20mg/dlBuBc 3.5mg/dl Bu/0.8mg/dl +0.25mg/dl +0 .24mg/dlBuBc 7 mg/dl Bu/14.2mg/dl +0.38mg/dl +0.25mg/dlBuBc 5mg/dl Bc/0mg/dl +0.25mg/dl +0 .15mg/dlBuBc 3.5mg/dl Bc/2.8mg/dl +0.25mg/dl +0.23mg/dl SGOT/AST (test 52 UNITS/L 14-36 H code = AST) SGPT/ALT (test 36 UNITS/L <35 code = ALT) ALKALINE 198 UNITS/L 38-126 H PHOSPHATASE (test code = ALKP) PROTHROMBIN [id number] 11:31:00 Test Item Value Reference Range Interpretation Comments PROTHROMBIN TIME 76.0 SECONDS 9.4-12.5 PATIENT (test code = PTP) INTERNATIONAL NORMAL 6.7 CALLED TO RAMESH DODGE (test code = READBACK ON INR) 02/26/20 AT 113 1 BY Pop Loo he INR is to be us ed only [...] eric embolism. 3.0 - 4.5 CBC W/AUTO [id number] 11:25:00 Test Item Value Reference Range Interpretation Comments WHITE BLOOD CELL (test code = 8.7 K/MM3 3.8-9.8 N WBC) RED BLOOD CELL (test code = 3.04 M/MM3 3.58-4.97 L RBC) HEMOGLOBIN (test code = HGB) 8.6 G/DL 11.2-14.9 L HEMATOCRIT (test code = HCT) 28.6 % 33.2-43.5 L MEAN CELL VOLUME (test code = 94 fL 80.7-99.1 N MCV) MEAN CELL HGB (test code = MCH) 28.3 pg 27.0-34.1 N MEAN CELL HGB CONCETRATION 30.1 % 32.2-35.7 L (test code = MCHC) RED CELL DISTRIBUTION WIDTH 15.3 % 12.1-15.2 H (test code = RDW) PLATELET COUNT (test code = 297 K/MM3 129-368 PLT) MEAN PLATELET VOLUME (test code 9.2 fl 7.4-10.4 N = MPV) NEUTROPHIL % (test code = NT%) 76.6 % 43-75 H IMMATURE GRANULOCYTE % (test 0.6 % 0.0-2.0 N code = IG%) LYMPHOCYTE % (test code = LY%) 14.8 % 14-44 N MONOCYTE % (test code = MO%) 6.3 % 4-13 N EOSINOPHIL % (test code = EO%) 1.0 % 0-6 N BASOPHIL % (test code = BA%) 0.7 % 0-2 N NUCLEATED RBC % (test code = 0.0 % 0-1.0 N NRBC%) NEUTROPHIL # (test code = NT#) 6.68 K/mm3 2.0-7.6 N IMMATURE GRANULOCYTE # (test 0.05 x10 3/uL 0-0.03 H code = IG#) LYMPHOCYTE # (test code = LY#) 1.29 K/mm3 1.0-3.8 N MONOCYTE # (test code = MO#) 0.55 K/mm3 0.1-0.8 N EOSINOPHIL # (test code = EO#) 0.09 K/mm3 0.0-0.2 N BASOPHIL # (test code = BA#) 0.06 K/mm3 0.0-0.2 N NUCLEATED RBC # (test code = 0.00 K/mm3 0.0-0.1 N NRBC#) GLUCOSE BEDSIDE [id number] 08:29:00 Test Item Value Reference Range Interpretation Comments GLUCOSE BEDSIDE TESTING (test code = 72 MG/DL 60-99 N GLUBED) GLUCOSE BEDSIDE [id number] 00:04:00 Test Item Value Reference Range Interpretation Comments GLUCOSE BEDSIDE TESTING (test code = 68 MG/DL 60-99 N GLUBED) PROTHROMBIN [id number] 23:52:00 Test Item Value Reference Range Interpretation Comments PROTHROMBIN TIME 75.1 SECONDS 9.4-12.5 HH CALLED TO Belem Davis PATIENT (test code = & READ BACK ON PTP) 02/25/20 AT 234 9 BY Min Aquino INTERNATIONAL NORMAL 6.6 HH CALLED TO TIERA Davis RATIO (test code = & READBA CK ON INR) 02/25/20 AT 235 0 BY Gurpreet Aquino IN R is to be used only for monitoring [...] recurrent syste eric embolism. 3.0 - 4.5 COVID 19 Asymptomatic IH [id number] 23:42:00 Test Item Value Reference Range Interpretation Comments COVID 19 NEGATIVE Negative "Negative resul ts from Asymptomatic IH AG patients with symptom (test code = onset beyondfiv e days, COVNONPUIAG) should be renee mitzi as presumptive, andconfirmation with a molecular assay , if necessary forpa javier management may be performed. Nega tive results do notr ule out COVID-19 and sh ould not be used as the sole basisfor treatm ent or patient managem ent decisions, includinginfect ion control decisio ns. Negative result s should beconsidered in the context of a moe ordoñez recent exposure s,history, and the presenc e of clinical signs and symptomsconsist ent with COVID-19.This t est detects both vi able andnon-viable S ARS-CoV and SARS CoV-2. Test performance dep endson the amount of virus (antigen) in the sample." THYROID STIMULATING [id number] 23:04:00 Test Item Value Reference Range Interpretation Comments THYROID STIMULATING 21.300 MIU/L 0.465-4.68 H Please b e aware that HORMONE (test code = bias re sults for TSH TSH) may occur forpa kamnt who are taking Biotin suppleme nts. GLYCOSYLATED HEMOGLOBIN [id number] 22:37:00 Test Item Value Reference Range Interpretation Comments GLYCOSYLATED 4.7 % 4.8-5.9 L Any condition t hat HEMOGLOBIN (HA1C) shortens e rythocyte (test code = GLYHGB) surviva l or decreasesmean erythrocyte age (e.g., recovery from a cute [...] considered for these patients. MEAN BLOOD GLUCOSE 88 MG/DL 70-110 N (test code = MBG) URINALYSIS [id number] 18:24:00 Test Item Value Reference Range Interpretation Comments UA COLOR (test code = YELLOW YELLOW COLU) UA APPEARANCE (test code very cloudy CLEAR = APPU) UA GLUCOSE DIPSTICK (test NORMAL MG/DL NORMAL code = DGLUU) UA BILIRUBIN DIPSTICK NEGATIVE MG/DL NEGATIVE (test code = BILU) UA KETONE DIPSTICK (test 5 MG/DL NEGATIVE code = KETU) UA SPECIFIC GRAVITY (test 1.010 1.003-1.030 N code = SGU) UA BLOOD DIPSTICK (test 250 Kai/mm3 NEGATIVE A code = AMPARO) UA PH DIPSTICK (test code 8.0 5.0-9.0 N = AJ) UA PROTEIN DIPSTICK (test 100 MG/DL NEGATIVE A code = PROU) UA UROBILINIOGEN DIPSTICK NORMAL MG/DL NORMAL (test code = URO) UA NITRITE DIPSTICK (test NEGATIVE NEGATIVE code = GAIL) UA LEUKOCYTE ESTERASE 500 /mm3 NEGATIVE A DIPSTICK (test code = LEUU) UA CULTURE NEEDED? (test YES,WBC>10 & EPI<25 Culture Chk code = UACULT) Criteria UA [id number] 18:24:00 Test Item Value Reference Range Interpretation Comments UA RBC (test code = RBCU) 50-100 RBC/HPF 0-3 A UA WBC (test code = XWBCU) >100 WBC/HPF 0-5 A UA EPITHELIAL CELLS (test code FEW EPI/HPF FEW = EPIU) UA BACTERIA (test code = MODERATE NONE A XBACU) UA YEAST (test code = YEASTU) FEW #/HPF NONE A URINALYSIS [id number] 18:13:00 Test Item Value Reference Range Interpretation Comments UA COLOR (test code = COLU) YELLOW YELLOW UA APPEARANCE (test code = very cloudy CLEAR APPU) UA GLUCOSE DIPSTICK (test code NORMAL MG/DL NORMAL = DGLUU) UA BILIRUBIN DIPSTICK (test NEGATIVE MG/DL NEGATIVE code = BILU) UA KETONE DIPSTICK (test code 5 MG/DL NEGATIVE = KETU) UA SPECIFIC GRAVITY (test code 1.010 1.003-1.030 N = SGU) UA BLOOD DIPSTICK (test code = 250 Kai/mm3 NEGATIVE A AMPARO) UA PH DIPSTICK (test code = 8.0 5.0-9.0 N AJ) UA PROTEIN DIPSTICK (test code 100 MG/DL NEGATIVE A = PROU) UA UROBILINIOGEN DIPSTICK NORMAL MG/DL NORMAL (test code = URO) UA NITRITE DIPSTICK (test code NEGATIVE NEGATIVE = GAIL) UA LEUKOCYTE ESTERASE DIPSTICK 500 /mm3 NEGATIVE A (test code = LEUU) UA CULTURE NEEDED? (test code Criteria Culture Chk = UACULT) UA [id number] 18:13:00 Test Item Value Reference Range Interpretation Comments UA RBC (test code = RBCU) RBC/HPF 0-3 UA WBC (test code = XWBCU) WBC/HPF 0-5 UA EPITHELIAL CELLS (test code = EPI/HPF FEW EPIU) UA BACTERIA (test code = XBACU) NONE URINALYSIS [id number] 18:13:00 Test Item Value Reference Range Interpretation Comments UA COLOR (test code = COLU) YELLOW YELLOW UA APPEARANCE (test code = very cloudy CLEAR APPU) UA GLUCOSE DIPSTICK (test code NORMAL MG/DL NORMAL = DGLUU) UA BILIRUBIN DIPSTICK (test NEGATIVE MG/DL NEGATIVE code = BILU) UA KETONE DIPSTICK (test code 5 MG/DL NEGATIVE = KETU) UA SPECIFIC GRAVITY (test code 1.010 1.003-1.030 N = SGU) UA BLOOD DIPSTICK (test code = 250 Kai/mm3 NEGATIVE A AMPARO) UA PH DIPSTICK (test code = 8.0 5.0-9.0 N AJ) UA PROTEIN DIPSTICK (test code 100 MG/DL NEGATIVE A = PROU) UA UROBILINIOGEN DIPSTICK NORMAL MG/DL NORMAL (test code = URO) UA NITRITE DIPSTICK (test code NEGATIVE NEGATIVE = GAIL) UA LEUKOCYTE ESTERASE DIPSTICK 500 /mm3 NEGATIVE A (test code = LEUU) UA CULTURE NEEDED? (test code Criteria Culture Chk = UACULT) UA [id number] 18:13:00 Test Item Value Reference Range Interpretation Comments UA RBC (test code = RBCU) RBC/HPF 0-3 UA WBC (test code = XWBCU) WBC/HPF 0-5 UA EPITHELIAL CELLS (test code = EPI/HPF FEW EPIU) UA BACTERIA (test code = XBACU) NONE COMPREHENSIVE METABOLIC [id number] 17:13:00 Test Item Value Reference Range Interpretation Comments SODIUM (test code 130 MMOL/L 137-145 L = NA) POTASSIUM (test 5.5 MMOL/L 3.5-5.1 H code = K) CHLORIDE (test 90 MMOL/L 98-107 L code = CL) CARBON DIOXIDE 30 MMOL/L 22-30 N (test code = CO2) ANION GAP (test 16 MMOL/L 14-24 N code = GAP) GLUCOSE (test 114 MG/DL 74-106 H code = GLU) BLOOD UREA 29 MG/DL 7-17 H NITROGEN (test code = BUN) GLOMERULAR 25 Reporting units : FILTRATION RATE ml/min/1.73 m2 (Modified (test code = GFR) MDRD Formu la)Reference Range: > or = 6 0 ml/min/1.73 m2 CREATININE (test 1.90 MG/DL 0.52-1.04 H code = CREAT) TOTAL PROTEIN 9.1 G/DL 6.3-8.2 H [facility] Clinical Diagnostic (test code = has made us toby re of PROT) newinformation regarding the potential i nterference ofEltrombopag (a bone marrow stimulan t used to treatthrombocyt onmenia and aplastic anemia ) with specific assays on the Vitros 5600 of which Total Protein is one of thoseassays per formed in our lab.Interfe rence testing perform ed at Ortho determined that Eltrombopag does interfere with Vitros Total Protein asfollowsEltrom bopag Interference fo r Vitros Product Total Protein:======= Eltrombopag Max Observed A vg. BiasConcentrati on Concentration Concentration== ==== 2.5 mg/dl 6.0 g/dl +0.41 +0.34 3.5 mg/dl 6.0 g/dl +0.50 +0.45 5 mg/dl 6.0 g/dl +0.73 +0.65 2.5 mg/dl 8.0 g/dl +0.44 +0.41 3.5 mg/dl 8.0 g/dl +0.55 +0.52 5 mg/dl 8.0 g/dl +0.86 +0.77 ALBUMIN (test 4.1 G/DL 3.5-5.0 N code = ALB) CALCIUM (test 9.4 MG/DL 8.4-10.2 code = CA) BILIRUBIN TOTAL 1.0 MG/DL 0.2-1.3 N Eltrombopag Interference (test code = for Vitros Prod uct TBil, BILT) BuBc: Assa y Eltrombopag Analyte/ Max Observed Avg. Bias Concentrati on Concentration Concentration== ====TBil 7mg/dl T [place]/ 1.2mg/dl +0.23 mg.dl +0.20mg/dlBuBc 3.5mg/dl Bu/0.8mg/dl +0.25mg/dl +0 .24mg/dlBuBc 7 mg/dl Bu/14.2mg/dl +0.38mg/dl +0.25mg/dlBuBc 5mg/dl Bc/0mg/dl +0.25mg/dl +0 .15mg/dlBuBc 3.5mg/dl Bc/2.8mg/dl +0.25mg/dl +0.23mg/dl SGOT/AST (test 83 UNITS/L 14-36 H code = AST) SGPT/ALT (test 55 UNITS/L <35 code = ALT) ALKALINE 336 UNITS/L 38-126 H PHOSPHATASE (test code = ALKP) RECOLLECTION NEEDED ON 02/25/20 AT 1538 BY [id number]: NOT ENOUGH BLOODNOTIFIED PATIENT CARE STAFF: GIDEON MillanKassandra SAID TO SEND PHELBPHOSPHOROUS 2020-02-25 17:13:00 Test Item Value Reference Range Interpretation Comments PHOSPHOROUS (test code = PHOS) 4.3 MG/DL 2.5-4.5 N RECOLLECTION NEEDED ON 02/25/20 AT 1538 BY Z.LAB.[id number]: NOT ENOUGH BLOODNOTIFIED PATIENT CARE STAFF: GIDEON MillanKassandra SAID TO SEND [id number] 17:13:00 Test Item Value Reference Range Interpretation Comments LIPASE (test code = LIP) 313 UNITS/L 23-300 H RECOLLECTION NEEDED ON 02/25/20 AT 1538 BY Z.LAB.CYI9QXHRDD: NOT ENOUGH BLOODNOTIFIED PATIENT CARE STAFF: GIDEON MillanKassandra SAID TO SEND PHELBMAGNESIUM 2020-02-25 17:13:00 Test Item Value Reference Range Interpretation Comments MAGNESIUM (test code = MAG) 1.7 MG/DL 1.6-2.3 N RECOLLECTION NEEDED ON 02/25/20 AT 1538 BY Z.LAB.ZGX8CANUFL: NOT ENOUGH BLOODNOTIFIED PATIENT CARE STAFF: GIDEON MillanKassandra SAID TO SEND PHELBTROPONIN-I 2020-02-25 17:13:00 Test Item Value Reference Range Interpretation Comments TROPONIN-I (test code = TROPI) < 0.012 NG/ML 0.012-0.033 L RECOLLECTION NEEDED ON 02/25/20 AT 1538 BY Z.LAB.LCZ4UNNCKA: NOT ENOUGH BLOODNOTIFIED PATIENT CARE STAFF: GIDEON MillanKassandra SAID TO SEND PHELBCOMPREHENSIVE METABOLIC [id number] 16:32:00 Test Item Value Reference Range Interpretation Comments SODIUM (test code 130 MMOL/L 137-145 L = NA) POTASSIUM (test 5.5 MMOL/L 3.5-5.1 H code = K) CHLORIDE (test 90 MMOL/L 98-107 L code = CL) CARBON DIOXIDE 30 MMOL/L 22-30 N (test code = CO2) ANION GAP (test 16 MMOL/L 14-24 N code = GAP) GLUCOSE (test 114 MG/DL 74-106 H code = GLU) BLOOD UREA 29 MG/DL 7-17 H NITROGEN (test code = BUN) GLOMERULAR 25 Reporting units : FILTRATION RATE ml/min/1.73 m2 (Modified (test code = GFR) MDRD Formu la)Reference Range: > or = 6 0 ml/min/1.73 m2 CREATININE (test 1.90 MG/DL 0.52-1.04 H code = CREAT) TOTAL PROTEIN 9.1 G/DL 6.3-8.2 H [facility] Clinical Diagnostic (test code = has made us toby re of PROT) newinformation regarding the potential i nterference ofEltrombopag (a bone marrow stimulan t used to treatthrombocyt onmenia and aplastic anemia ) with specific assays on the Hypecals 5600 of which Total Protein is one of thoseassays per formed in our lab.Interfe rence testing perform ed at Ortho determined that Eltrombopag does interfere with Vitros Total Protein asfollowsEltrom bopag Interference fo r Vitros Product Total Protein:======= Eltrombopag Max Observed A vg. BiasConcentrati on Concentration Concentration== ==== 2.5 mg/dl 6.0 g/dl +0.41 +0.34 3.5 mg/dl 6.0 g/dl +0.50 +0.45 5 mg/dl 6.0 g/dl +0.73 +0.65 2.5 mg/dl 8.0 g/dl +0.44 +0.41 3.5 mg/dl 8.0 g/dl +0.55 +0.52 5 mg/dl 8.0 g/dl +0.86 +0.77 ALBUMIN (test 4.1 G/DL 3.5-5.0 N code = ALB) CALCIUM (test 9.4 MG/DL 8.4-10.2 code = CA) BILIRUBIN TOTAL 1.0 MG/DL 0.2-1.3 N Eltrombopag Interference (test code = for Vitros Prod uct TBil, BILT) BuBc: Assa y Eltrombopag Analyte/ Max Observed Avg. Bias Concentrati on Concentration Concentration== ====TBil 7mg/dl T [place]/ 1.2mg/dl +0.23 mg.dl +0.20mg/dlBuBc 3.5mg/dl Bu/0.8mg/dl +0.25mg/dl +0 .24mg/dlBuBc 7 mg/dl Bu/14.2mg/dl +0.38mg/dl +0.25mg/dlBuBc 5mg/dl Bc/0mg/dl +0.25mg/dl +0 .15mg/dlBuBc 3.5mg/dl Bc/2.8mg/dl +0.25mg/dl +0.23mg/dl SGOT/AST (test 83 UNITS/L 14-36 H code = AST) SGPT/ALT (test 55 UNITS/L <35 code = ALT) ALKALINE 336 UNITS/L 38-126 H PHOSPHATASE (test code = ALKP) RECOLLECTION NEEDED ON 02/25/20 AT 1538 BY Z.LAB.UIQ1EIUFWJ: NOT ENOUGH BLOODNOTIFIED PATIENT CARE STAFF: GIDEON Davis SAID TO SEND PHELBPHOSPHOROUS 2020-02-25 16:32:00 Test Item Value Reference Range Interpretation Comments PHOSPHOROUS (test code = PHOS) 4.3 MG/DL 2.5-4.5 N RECOLLECTION NEEDED ON 02/25/20 AT 1538 BY Z.LAB.COD4BWIVVK: NOT ENOUGH BLOODNOTIFIED PATIENT CARE STAFF: GIDEON Davis SAID TO SEND [id number] 16:32:00 Test Item Value Reference Range Interpretation Comments LIPASE (test code = LIP) 313 UNITS/L 23-300 H RECOLLECTION NEEDED ON 02/25/20 AT 1538 BY Z.LAB.LOW6LGQSWP: NOT ENOUGH BLOODNOTIFIED PATIENT CARE STAFF: GIDEON MillanKassandra SAID TO SEND PHELBMAGNESIUM 2020-02-25 16:32:00 Test Item Value Reference Range Interpretation Comments MAGNESIUM (test code = MAG) 1.7 MG/DL 1.6-2.3 N RECOLLECTION NEEDED ON 02/25/20 AT 1538 BY Z.LAB.THE0ZVPHBX: NOT ENOUGH BLOODNOTIFIED PATIENT CARE STAFF: GIDEON MillanKassandra SAID TO SEND PHELBTROPONIN-I 2020-02-25 16:32:00 Test Item Value Reference Range Interpretation Comments TROPONIN-I (test code = TROPI) NG/ML 0.0-0.045 RECOLLECTION NEEDED ON 02/25/20 AT 1538 BY Z.LAB.WHA8AIBWJI: NOT ENOUGH BLOODNOTIFIED PATIENT CARE STAFF: GIDEON MillanKassandra SAID TO SEND PHELBCOMPREHENSIVE METABOLIC [id number] 16:30:00 Test Item Value Reference Range Interpretation Comments SODIUM (test code = 130 MMOL/L 137-145 L NA) POTASSIUM (test code 5.5 MMOL/L 3.5-5.1 H = K) CHLORIDE (test code = 90 MMOL/L 98-107 L CL) CARBON DIOXIDE (test MMOL/L 22-30 code = CO2) GLUCOSE (test code = MG/DL 74-106 GLU) BLOOD UREA NITROGEN MG/DL 7-17 (test code = BUN) GLOMERULAR FILTRATION 25 Report ing units: RATE (test code = ml/min/1.7 3 m2 GFR) (Modified MDRD Formula)Referen ce Range: > or = 6 0 ml/min/1.73 m2 CREATININE (test code 1.90 MG/DL 0.52-1.04 H = CREAT) TOTAL PROTEIN (test G/DL 6.3-8.2 code = PROT) ALBUMIN (test code = 4.1 G/DL 3.5-5.0 N ALB) CALCIUM (test code = MG/DL 8.7-9.7 CA) BILIRUBIN TOTAL (test 1.0 MG/DL 0.2-1.3 N Eltrom bopag code = [...] PHOSPHATASE UNITS/L 38-126 (test code = ALKP) RECOLLECTION NEEDED ON 02/25/20 AT 1538 BY JAMESON.JXE2RBYERY: NOT ENOUGH BLOODNOTIFIED PATIENT CARE STAFF: GIDEON Davis SAID TO SEND PHELBPHOSPHOROUS 2020-02-25 16:30:00 Test Item Value Reference Range Interpretation Comments PHOSPHOROUS (test code = PHOS) MG/DL 2.5-4.5 RECOLLECTION NEEDED ON 02/25/20 AT 1538 BY JAMESON.[id number]: NOT ENOUGH BLOODNOTIFIED PATIENT CARE STAFF: GIDEON Davis SAID TO SEND [id number] 16:30:00 Test Item Value Reference Range Interpretation Comments LIPASE (test code = LIP) UNITS/L 23-300 RECOLLECTION NEEDED ON 02/25/20 AT 1538 BY Z.LAB.XIY8JYAAXW: NOT ENOUGH BLOODNOTIFIED PATIENT CARE STAFF: GIDEON MillanKassandra SAID TO SEND PHELBMAGNESIUM 2020-02-25 16:30:00 Test Item Value Reference Range Interpretation Comments MAGNESIUM (test code = MAG) MG/DL 1.6-2.3 RECOLLECTION NEEDED ON 02/25/20 AT 1538 BY Z.LAB.YOT3HJKHLQ: NOT ENOUGH BLOODNOTIFIED PATIENT CARE STAFF: GIDEON MillanKassandra SAID TO SEND PHELBTROPONIN-I 2020-02-25 16:30:00 Test Item Value Reference Range Interpretation Comments TROPONIN-I (test code = TROPI) NG/ML 0.0-0.045 RECOLLECTION NEEDED ON 02/25/20 AT 1538 BY Z.LAB.SQI1INLBTK: NOT ENOUGH BLOODNOTIFIED PATIENT CARE STAFF: GIDEON MillanKassandra SAID TO SEND PHELB- XR CHEST 1V 2020-02-25 15:32:00 [facility] 1940 Sex: F Patient Name: JORGE A HORTA Unit No: [id number] EXAMS: CPT CODE: [id number] XR CHEST 1V 78022 Location: T 18 CHEST X-RAY: Portable AP frontal projection,one view, 02/25/20 CLINICAL HISTORY: Weakness. COMPARISON EXAMS: 12/25/19 chest x-ray exam FINDINGS: Heart, lungs, and hilar structures are within normal limits. No evolving process or pleural based finding. No active CHF or pneumonia. Previously seen hazy density throughout the left lung has resolved. Patient status post sternotomy. IMPRESSION: No acute finding Electronically Signed by Kisha Bardales MD on 02/25/2020 at 1532 Reported and signed by: Kisha Bardales MD CC: [address]; Ramu Sutherland MD Technologist: Larry Hinkle (RT) (R) Transcrpt Date/Tm/Trnsp: 02/25/2020 (1532) [email or web address] Orig Print D/T: S: 02/25/2020 (1535) [facility] NAME: JORGE A HORTA [address] PHYS: [place] [address] : 1940 AGE: 79 SEX: F LOC: VICENTE PHONE #: [phone] EXAM DATE: 02/25/2020 STATUS: REG ER FAX #: [phone] RADIOLOGY NO: PAGE 1 Signed ReportCBC W/O [id number] 15:20:00 Test Item Value Reference Range Interpretation Comments WHITE BLOOD CELL (test code = 14.9 K/MM3 3.8-9.8 H WBC) RED BLOOD CELL (test code = 3.98 M/MM3 3.58-4.97 N RBC) HEMOGLOBIN (test code = HGB) 11.5 G/DL 11.2-14.9 N HEMATOCRIT (test code = HCT) 38.5 % 33.2-43.5 N MEAN CELL VOLUME (test code = 97 fL 80.7-99.1 N MCV) MEAN CELL HGB (test code = MCH) 28.9 pg 27.0-34.1 N MEAN CELL HGB CONCETRATION 29.9 % 32.2-35.7 L (test code = MCHC) RED CELL DISTRIBUTION WIDTH 15.3 % 12.1-15.2 H (test code = RDW) PLATELET COUNT (test code = 393 K/MM3 129-368 H PLT) NEUTROPHIL # (test code = NT#) 10.43 K/mm3 2.0-7.6 H IMMATURE GRANULOCYTE # (test 0.11 x10 3/uL 0-0.03 H code = IG#) LYMPHOCYTE # (test code = LY#) 3.07 K/mm3 1.0-3.8 N MONOCYTE # (test code = MO#) 1.08 K/mm3 0.1-0.8 H EOSINOPHIL # (test code = EO#) 0.07 K/mm3 0.0-0.2 N BASOPHIL # (test code = BA#) 0.10 K/mm3 0.0-0.2 N NUCLEATED RBC # (test code = 0.00 K/mm3 0.0-0.1 N NRBC#) GLUCOSE BEDSIDE [id number] 11:55:00 Test Item Value Reference Range Interpretation Comments GLUCOSE BEDSIDE TESTING (test code 132 MG/DL 60-99 H = GLUBED) GLUCOSE BEDSIDE [id number] 11:04:00 Test Item Value Reference Range Interpretation Comments GLUCOSE BEDSIDE TESTING (test code = 74 MG/DL 60-99 N GLUBED) GLUCOSE BEDSIDE [id number] 07:38:00 Test Item Value Reference Range Interpretation Comments GLUCOSE BEDSIDE TESTING (test code 110 MG/DL 60-99 H = GLUBED) BASIC METABOLIC [id number] 06:32:00 Test Item Value Reference Range Interpretation [...] 8.1 MG/DL 8.4-10.2 L CA) BASIC METABOLIC [id number] 06:31:00 Test Item Value Reference Range Interpretation [...] code = MG/DL 8.7-9.7 CA) BASIC METABOLIC [id number] 06:29:00 Test Item Value Reference Range Interpretation [...] code = CA) MG/DL 8.7-9.7 BASIC METABOLIC [id number] 06:28:00 Test Item Value Reference Range Interpretation [...] (test code = CA) MG/DL 8.7-9.7 PROTHROMBIN [id number] 06:17:00 Test Item Value Reference Range Interpretation [...] eric embolism. 3.0 - 4.5 CBC W/AUTO [id number] 06:12:00 Test Item Value Reference Range Interpretation [...] N NRBC#) - CT ABD PELVIS W/O [id number] 19:52:00 [facility] : 1940 Sex: F Patient Name: JORGE A HORTA Unit No: [id number] EXAMS: CPT CODE: [id number] CT ABD PELVIS W/O CONT 06042 EXAM: CT abdomen and pelvis INDICATION: Post-op bleeding COMPARISON: December 30, 2019 LOCATION: [facility] CT scan of the abdomen and pelvis [...] catheter in the pelvis is again identified. 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 [id number] Reported and signed by: Loc Medina MD CC: Nicolas Wiley MD; Ramu Sutherland MD; Rashid Son MD Technologist: Jose Victor RT (R) (CT) CTDI: DLP: Trnscrpt: 01/02/2020 (1951) DoyleR.PMT [facility] NAME: JORGE A HORTA [place] PHYS: Nicolas Gutierrez MD [place] [id number] : 1940 AGE: 79SEX: F LOC: Z.SI06 A PHONE #: [phone] EXAM DATE: 01/02/2020 STATUS: ADM IN FAX #: [phone] RAD #: D/C DT PAGE 2 Signed Report Patient Name: JORGE A HORTA Unit No: [id number] EXAMS: CPT CODE: [id number] CT ABD PELVIS W/O CONT 68794 <Continued> Orig Print D/T: S: 01/02/2020 (1954) [facility] NAME: JORGE A HORTA [place]erry PHYS: Nicolas Gutierrez MD [place] [id number] : 1940 AGE: 79 SEX: F LOC: Z.SI06 A PHONE #: [phone] EXAM DATE: 01/02/2020 STATUS: ADM IN FAX #: [phone] RAD #: D/C DT PAGE 3 Signed ReportHGB [id number] 16:29:00 Test Item Value Reference Range Interpretation Comments HEMOGLOBIN (test code = HGB) 8.2 G/DL 11.2-14.9 L HEMATOCRIT (test code = HCT) 26.0 % 33.2-43.5 L GLUCOSE BEDSIDE [id number] 16:27:00 Test Item Value Reference Range Interpretation Comments GLUCOSE BEDSIDE TESTING (test code = 59 MG/DL 60-99 L GLUBED) GLUCOSE BEDSIDE [id number] 12:00:00 Test Item Value Reference Range Interpretation Comments GLUCOSE BEDSIDE TESTING (test code 101 MG/DL 60-99 H = GLUBED) HGB [id number] 09:00:00 Test Item Value Reference Range Interpretation Comments HEMOGLOBIN (test code = 6.4 G/DL 11.2-14.9 LL CALL ED TO SZUANNE Landis HGB) READBACK ON AT 0900 BY Ilan Loo HEMATOCRIT (test code = 20.5 % 33.2-43.5 L HCT) CBC W/AUTO [id number] 07:51:00 Test Item Value Reference Range Interpretation [...] K/mm3 0.0-0.1 N code = NRBC#) DIFFERENTIAL [id number] 07:51:00 Test Item Value Reference Range Interpretation Comments RBC MORPHOLOGY REQUIRED (test code NORMAL = RBCM) ANISOCYTOSIS (test code = ANISO) SLIGHT NONE PLATELET ESTIMATE (test code = INCREASED ADEQUATE PLTEST) PLATELET MORPHOLOGY (test code = NORMAL NORMAL PLTMORPH) BASIC METABOLIC [id number] 06:22:00 Test Item Value Reference Range Interpretation [...] = 8.3 MG/DL 8.4-10.2 L CA) PROTHROMBIN [id number] 06:22:00 Test Item Value Reference Range Interpretation [...] eric embolism. 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: .BASIC METABOLIC [id number] 06:17:00 Test Item Value Reference Range Interpretation [...] code = CA) MG/DL 8.7-9.7 CBC W/AUTO [id number] 06:16:00 Test Item Value Reference Range Interpretation [...] K/mm3 0.0-0.1 N code = NRBC#) DIFFERENTIAL [id number] 06:16:00 Test Item Value Reference Range Interpretation Comments RBC MORPHOLOGY REQUIRED (test code = RBCM) PLATELET ESTIMATE (test code = PLTEST) ADEQUATE PLATELET MORPHOLOGY (test code = NORMAL PLTMORPH) CBC W/AUTO [id number] 06:16:00 Test Item Value Reference Range Interpretation [...] K/mm3 0.0-0.1 N code = NRBC#) DIFFERENTIAL [id number] 06:16:00 Test Item Value Reference Range Interpretation Comments RBC MORPHOLOGY REQUIRED (test code = RBCM) PLATELET ESTIMATE (test code = PLTEST) ADEQUATE PLATELET MORPHOLOGY (test code = NORMAL PLTMORPH) GLUCOSE BEDSIDE [id number] 21:30:00 Test Item Value Reference Range Interpretation Comments GLUCOSE BEDSIDE TESTING (test code = 87 MG/DL 60-99 N GLUBED) ARTERIAL BLOOD [id number] 17:52:00 Test Item Value Reference Range Interpretation [...] FIO2 (test code = COHBGFFIO2) 30 % PaO2/[id number] 17:52:00 Test Item Value Reference Range Interpretation Comments PaO2/FiO2 (test code = [id number]) 279.66 mm/Hg GLUCOSE BEDSIDE [id number] 16:23:00 Test Item Value Reference Range Interpretation Comments GLUCOSE BEDSIDE TESTING (test code 108 MG/DL 60-99 H = GLUBED) PROTHROMBIN [id number] 14:43:00 Test Item Value Reference Range Interpretation [...] CARE STAFF: PEPPER 01/01/20 AT 1405 BY Chano Clevelandomments to Spinning Mule Operator: ,GLUCOSE BEDSIDE TESTING 2020-01-01 12:19:00 Test Item Value Reference Range Interpretation Comments GLUCOSE BEDSIDE TESTING (test code 116 MG/DL 60-99 H = GLUBED) GLUCOSE BEDSIDE [id number] 07:47:00 Test Item Value Reference Range Interpretation Comments GLUCOSE BEDSIDE TESTING (test code 109 MG/DL 60-99 H = GLUBED) BASIC METABOLIC [id number] 05:06:00 Test Item Value Reference Range Interpretation [...] 8.5 MG/DL 8.4-10.2 N CA) BASIC METABOLIC [id number] 04:58:00 Test Item Value Reference Range Interpretation [...] code = CA) MG/DL 8.7-9.7 GLUCOSE BEDSIDE [id number] 20:12:00 Test Item Value Reference Range Interpretation Comments GLUCOSE BEDSIDE TESTING (test code 119 MG/DL 60-99 H = GLUBED) GLUCOSE BEDSIDE [id number] 15:55:00 Test Item Value Reference Range Interpretation Comments GLUCOSE BEDSIDE TESTING (test code 134 MG/DL 60-99 H = GLUBED) CBC W/O [id number] 11:34:00 Test Item Value Reference Range Interpretation [...] K/mm3 0.0-0.1 N code = NRBC#) DIFFERENTIAL [id number] 11:34:00 Test Item Value Reference Range Interpretation Comments RBC MORPHOLOGY REQUIRED (test code NORMAL = RBCM) POLYCHROMASIA (test code = POLC) FEW NONE PLATELET ESTIMATE (test code = INCREASED ADEQUATE PLTEST) PLATELET MORPHOLOGY (test code = NORMAL NORMAL PLTMORPH) WBC [id number] 11:34:00 Test Item Value Reference Range Interpretation [...] MON) 4.9 % 0-11 N BASIC METABOLIC [id number] 11:28:00 Test Item Value Reference Range Interpretation [...] code = 8.7 MG/DL 8.4-10.2 N CA) [id number] 11:28:00 Test Item Value Reference Range Interpretation Comments VANCOMYCIN (test code = VANCO) 14.3 mcg/ML 5.0-26.0 CBC W/O [id number] 11:09:00 Test Item Value Reference Range Interpretation [...] K/mm3 0.0-0.1 N code = NRBC#) DIFFERENTIAL [id number] 11:09:00 Test Item Value Reference Range Interpretation Comments RBC MORPHOLOGY REQUIRED (test code = RBCM) PLATELET ESTIMATE (test code = PLTEST) ADEQUATE PLATELET MORPHOLOGY (test code = NORMAL PLTMORPH) WBC [id number] 11:09:00 Test Item Value Reference Range Interpretation Comments TOTAL CELLS COUNTED (test code = TCC) #CELLS SEGMENTED NEUTROPHILS (test code = % 36.2-73.8 SEG) LYMPHOCYTE (test code = LYMPH) % 12.9-45.1 MONOCYTE (test code = MON) % 0-11 CBC W/AUTO [id number] 11:09:00 Test Item Value Reference Range Interpretation [...] K/mm3 0.0-0.1 N code = NRBC#) WBC [id number] 11:09:00 Test Item Value Reference Range Interpretation Comments RBC MORPHOLOGY REQUIRED (test code = RBCM) TOTAL CELLS COUNTED (test code = TCC) #CELLS SEGMENTED NEUTROPHILS (test code = % 36.2-73.8 SEG) LYMPHOCYTE (test code = LYMPH) % 12.9-45.1 MONOCYTE (test code = MON) % 0-11 PLATELET ESTIMATE (test code = ADEQUATE PLTEST) PLATELET MORPHOLOGY (test code = NORMAL PLTMORPH) ARTERIAL BLOOD [id number] 11:00:00 Test Item Value Reference Range Interpretation [...] FIO2 (test code = 21 % COHBGFFIO2) PaO2/[id number] 11:00:00 Test Item Value Reference Range Interpretation Comments PaO2/FiO2 (test code = [id number]) mm/Hg ARTERIAL BLOOD [id number] 11:00:00 Test Item Value Reference Range Interpretation [...] FIO2 (test code = 21 % COHBGFFIO2) PaO2/[id number] 11:00:00 Test Item Value Reference Range Interpretation Comments PaO2/FiO2 (test code = [id number]) 297.61 mm/Hg GLUCOSE BEDSIDE [id number] 10:52:00 Test Item Value Reference Range Interpretation Comments GLUCOSE BEDSIDE TESTING (test code 167 MG/DL 60-99 H = GLUBED) GLUCOSE BEDSIDE [id number] 07:30:00 Test Item Value Reference Range Interpretation Comments GLUCOSE BEDSIDE TESTING (test code 148 MG/DL 60-99 H = GLUBED) GLUCOSE BEDSIDE [id number] 20:36:00 Test Item Value Reference Range Interpretation Comments GLUCOSE BEDSIDE TESTING (test code 139 MG/DL 60-99 H = GLUBED) GLUCOSE BEDSIDE [id number] 16:00:00 Test Item Value Reference Range Interpretation Comments GLUCOSE BEDSIDE TESTING (test code 126 MG/DL 60-99 H = GLUBED) [id number] 12:30:00 Test Item Value Reference Range Interpretation Comments VANCOMYCIN (test code = VANCO) 8.3 mcg/ML 5.0-26.0 N GLUCOSE BEDSIDE [id number] 11:19:00 Test Item Value Reference Range Interpretation Comments GLUCOSE BEDSIDE TESTING (test code 118 MG/DL 60-99 H = GLUBED) GLUCOSE BEDSIDE [id number] 07:49:00 Test Item Value Reference Range Interpretation Comments GLUCOSE BEDSIDE TESTING (test code 106 MG/DL 60-99 H = GLUBED) - CT ABD PELVIS W/[id number] 07:42:00 [facility] 1940 Sex: F Patient Name: JORGE A HORTA Unit No: [id number] EXAMS: CPT CODE: [id number] CT ABD PELVIS W/CONT [id number] HISTORY: Persistent WBC EXAM TYPE: CT abdomen [...] No aneurysmal dilatation. Lymph nodes: No adenopathy. [facility] NAME: JORGE A HORTA [id number] [place] PHYS: TSARodolfo Payne MD [address] [address] : 1940 AGE: 79 SEX: F LOC: [id number] PHONE #: [phone] EXAM DATE: 12/30/2019 STATUS: ADM IN FAX #: [phone] RAD #: D/C DT PAGE 1 Signed Report (CONTINUED) Patient Name: JORGE A HORTA Unit No: [id number] EXAMS: CPT CODE: [id number] CT ABD PELVIS W/CONT 32776 <Continued> Peritoneum/retroperitoneum: Small volume abdominal ascites, new [...] Reported and signed by: Lizzy Ryan MD [facility] NAME: JORGE A HORTA [address] PHYS: [id number] Rodolfo De La Torre MD [address] [place] [address] : 1940 AGE: 79 SEX: F LOC: Z.SI06 A PHONE #: [phone] EXAM DATE: 12/30/2019 STATUS: ADM IN FAX #: [phone] RAD #: D/C DT PAGE 2 Signed Report (CONTINUED) Patient Name: JORGE A HORTA Unit No: [id number] EXAMS: CPT CODE: [id number] CT ABD PELVIS W/CONT 36452 <Continued> CC: Tevin Samuels; Ramu Sutherland MD; Rodolfo Dillon MD Technologist: Cole Castano CTDI: DLP: Trnscrpt: 12/30/2019 (0742) [email or web address] [facility] NAME: JORGE A HORTAmond PHYS: [place] [address] : 1940 AGE: 79 SEX: F LOC: Z.SI06 A PHONE #: [phone] EXAM DATE: 12/30/2019 STATUS: ADM IN FAX #: [phone] RAD #: D/C DT PAGE 3 Signed Report Patient Name: JORGE A HORTA Unit No: [id number] EXAMS: CPT CODE: [id number] CT ABD PELVIS W/CONT 28797 <Continued> Orig Print D/T: S: 12/30/2019 (0745) [facility] NAME: JORGE A HORTA [address] PHYS: [place] [address] : 1940 AGE: 79 SEX: F LOC: Z.SI06 A PHONE #: [phone] EXAM DATE: 12/30/2019 STATUS: ADM IN FAX #: [phone] RAD #: D/C DT PAGE 4 Signed ReportBASIC METABOLIC [id number] 05:39:00 Test Item Value Reference Range Interpretation [...] 8.1 MG/DL 8.4-10.2 L CA) BASIC METABOLIC [id number] 05:25:00 Test Item Value Reference Range Interpretation [...] code = MG/DL 8.7-9.7 CA) BASIC METABOLIC [id number] 05:23:00 Test Item Value Reference Range Interpretation [...] code = CA) MG/DL 8.7-9.7 BASIC METABOLIC [id number] 05:22:00 Test Item Value Reference Range Interpretation [...] code = CA) MG/DL 8.7-9.7 CBC W/AUTO [id number] 05:17:00 Test Item Value Reference Range Interpretation [...] = 0.00 K/mm3 0.0-0.1 N NRBC#) DIFFERENTIAL [id number] 05:17:00 Test Item Value Reference Range Interpretation Comments RBC MORPHOLOGY REQUIRED (test code = RBCM) PLATELET ESTIMATE (test code = PLTEST) ADEQUATE PLATELET MORPHOLOGY (test code = NORMAL PLTMORPH) CBC W/AUTO [id number] 05:17:00 Test Item Value Reference Range Interpretation [...] = 0.00 K/mm3 0.0-0.1 N NRBC#) DIFFERENTIAL [id number] 05:17:00 Test Item Value Reference Range Interpretation Comments RBC MORPHOLOGY REQUIRED (test code = RBCM) PLATELET ESTIMATE (test code = PLTEST) ADEQUATE PLATELET MORPHOLOGY (test code = NORMAL PLTMORPH) ARTERIAL BLOOD [id number] 03:21:00 Test Item Value Reference Range Interpretation [...] FIO2 (test code = 32 % COHBGFFIO2) PaO2/[id number] 03:21:00 Test Item Value Reference Range Interpretation Comments PaO2/FiO2 (test code = KNN5FPD9) mm/Hg ARTERIAL BLOOD [id number] 03:21:00 Test Item Value Reference Range Interpretation [...] FIO2 (test code = 32 % COHBGFFIO2) PaO2/[id number] 03:21:00 Test Item Value Reference Range Interpretation Comments PaO2/FiO2 (test code = KXP1KMV1) 295.93 mm/Hg GLUCOSE BEDSIDE [id number] 20:10:00 Test Item Value Reference Range Interpretation Comments GLUCOSE BEDSIDE TESTING (test code = 80 MG/DL 60-99 N GLUBED) GLUCOSE BEDSIDE [id number] 17:00:00 Test Item Value Reference Range Interpretation Comments GLUCOSE BEDSIDE TESTING (test code = 99 MG/DL 60-99 N GLUBED) ARTERIAL BLOOD [id number] 16:38:00 Test Item Value Reference Range Interpretation [...] FIO2 (test code = COHBGFFIO2) 36 % PaO2/[id number] 16:38:00 Test Item Value Reference Range Interpretation Comments PaO2/FiO2 (test code = KUX5SIE9) mm/Hg ARTERIAL BLOOD [id number] 16:38:00 Test Item Value Reference Range Interpretation [...] FIO2 (test code = COHBGFFIO2) 36 % PaO2/[id number] 16:38:00 Test Item Value Reference Range Interpretation Comments PaO2/FiO2 (test code = TZN1MDE9) 543.05 mm/Hg ARTERIAL BLOOD [id number] 11:48:00 Test Item Value Reference Range Interpretation [...] FIO2 (test code = COHBGFFIO2) 50 % PaO2/[id number] 11:48:00 Test Item Value Reference Range Interpretation Comments PaO2/FiO2 (test code = ZEE9VDB5) mm/Hg ARTERIAL BLOOD [id number] 11:48:00 Test Item Value Reference Range Interpretation [...] FIO2 (test code = COHBGFFIO2) 50 % PaO2/[id number] 11:48:00 Test Item Value Reference Range Interpretation Comments PaO2/FiO2 (test code = EXO4VCA4) 345.40 mm/Hg GLUCOSE BEDSIDE [id number] 11:02:00 Test Item Value Reference Range Interpretation Comments GLUCOSE BEDSIDE TESTING (test code 131 MG/DL 60-99 H = GLUBED) ARTERIAL BLOOD [id number] 10:15:00 Test Item Value Reference Range Interpretation [...] FIO2 (test code = COHBGFFIO2) 40 % PaO2/[id number] 10:15:00 Test Item Value Reference Range Interpretation Comments PaO2/FiO2 (test code = KZK2EKT2) mm/Hg ARTERIAL BLOOD [id number] 10:15:00 Test Item Value Reference Range Interpretation [...] FIO2 (test code = COHBGFFIO2) 40 % PaO2/[id number] 10:15:00 Test Item Value Reference Range Interpretation Comments PaO2/FiO2 (test code = OXR0KXG3) 270.50 mm/Hg GLUCOSE BEDSIDE [id number] 07:25:00 Test Item Value Reference Range Interpretation Comments GLUCOSE BEDSIDE TESTING (test code 103 MG/DL 60-99 H = GLUBED) CBC W/AUTO [id number] 04:50:00 Test Item Value Reference Range Interpretation [...] = 0.02 K/mm3 0.0-0.1 N NRBC#) DIFFERENTIAL [id number] 04:50:00 Test Item Value Reference Range Interpretation Comments RBC MORPHOLOGY REQUIRED (test code = RBCM) PLATELET ESTIMATE (test code = PLTEST) ADEQUATE PLATELET MORPHOLOGY (test code = NORMAL PLTMORPH) CBC W/AUTO [id number] 04:50:00 Test Item Value Reference Range Interpretation [...] = 0.02 K/mm3 0.0-0.1 N NRBC#) DIFFERENTIAL [id number] 04:50:00 Test Item Value Reference Range Interpretation Comments RBC MORPHOLOGY REQUIRED (test code = RBCM) PLATELET ESTIMATE (test code = PLTEST) ADEQUATE PLATELET MORPHOLOGY (test code = NORMAL PLTMORPH) GLUCOSE BEDSIDE [id number] 20:04:00 Test Item Value Reference Range Interpretation Comments GLUCOSE BEDSIDE TESTING (test code 112 MG/DL 60-99 H = GLUBED) ARTERIAL BLOOD [id number] 17:50:00 Test Item Value Reference Range Interpretation [...] FIO2 (test code = COHBGFFIO2) 40 % PaO2/[id number] 17:50:00 Test Item Value Reference Range Interpretation Comments PaO2/FiO2 (test code = RHJ3TRJ5) mm/Hg ARTERIAL BLOOD [id number] 17:50:00 Test Item Value Reference Range Interpretation [...] FIO2 (test code = COHBGFFIO2) 40 % PaO2/[id number] 17:50:00 Test Item Value Reference Range Interpretation Comments PaO2/FiO2 (test code = UMM2BFS6) 283.25 mm/Hg GLUCOSE BEDSIDE [id number] 16:16:00 Test Item Value Reference Range Interpretation Comments GLUCOSE BEDSIDE TESTING (test code 102 MG/DL 60-99 H = GLUBED) CBC W/O [id number] 11:57:00 Test Item Value Reference Range Interpretation [...] K/mm3 0.0-0.1 N code = NRBC#) DIFFERENTIAL [id number] 11:57:00 Test Item Value Reference Range Interpretation Comments RBC MORPHOLOGY REQUIRED (test code = NORMAL RBCM) ANISOCYTOSIS (test code = ANISO) SLIGHT NONE MACROCYTOSIS (test code = MACR) FEW NONE PLATELET ESTIMATE (test code = ADEQUATE ADEQUATE PLTEST) PLATELET MORPHOLOGY (test code = NORMAL NORMAL PLTMORPH) WBC [id number] 11:57:00 Test Item Value Reference Range Interpretation [...] code = GERTRUDIS) 0.8 % 0-0 H [id number] 11:46:00 Test Item Value Reference Range Interpretation Comments VANCOMYCIN (test code = VANCO) 13.8 mcg/ML 5.0-26.0 N UNABLE TO DRAW BLOOD, REASON: CBNNOTIFIED PATIENT CARE STAFF: MOSHE 12/28/19 AT 1048 BY Hannah Busby [facility] BLOOD [id number] 11:19:00 Test Item Value Reference Range Interpretation [...] FIO2 (test code = COHBGFFIO2) 40 % PaO2/[id number] 11:19:00 Test Item Value Reference Range Interpretation Comments PaO2/FiO2 (test code = XRM3IQO6) mm/Hg ARTERIAL BLOOD [id number] 11:19:00 Test Item Value Reference Range Interpretation [...] FIO2 (test code = COHBGFFIO2) 40 % PaO2/[id number] 11:19:00 Test Item Value Reference Range Interpretation Comments PaO2/FiO2 (test code = LIJ1GSY4) 279.25 mm/Hg GLUCOSE BEDSIDE [id number] 10:39:00 Test Item Value Reference Range Interpretation Comments GLUCOSE BEDSIDE TESTING (test code 153 MG/DL 60-99 H = GLUBED) ARTERIAL BLOOD [id number] 10:05:00 Test Item Value Reference Range Interpretation [...] FIO2 (test code = COHBGFFIO2) 30 % PaO2/[id number] 10:05:00 Test Item Value Reference Range Interpretation Comments PaO2/FiO2 (test code = VVA4KNN6) 279.66 mm/Hg ARTERIAL BLOOD [id number] 10:04:00 Test Item Value Reference Range Interpretation [...] FIO2 (test code = COHBGFFIO2) 30 % PaO2/[id number] 10:04:00 Test Item Value Reference Range Interpretation Comments PaO2/FiO2 (test code = VQG6PRD7) mm/Hg CBC W/O [id number] 08:07:00 Test Item Value Reference Range Interpretation Comments WHITE BLOOD CELL (test 32.0 K/MM3 3.8-9.8 ALEYDA MCCRAY R code = WBC) & READBACK ON [...] K/mm3 0.0-0.1 N code = NRBC#) DIFFERENTIAL [id number] 08:07:00 Test Item Value Reference Range Interpretation Comments RBC MORPHOLOGY REQUIRED (test code = RBCM) PLATELET ESTIMATE (test code = PLTEST) ADEQUATE PLATELET MORPHOLOGY (test code = NORMAL PLTMORPH) WBC [id number] 08:07:00 Test Item Value Reference Range Interpretation Comments TOTAL CELLS COUNTED (test code = TCC) #CELLS SEGMENTED NEUTROPHILS (test code = % 36.2-73.8 SEG) LYMPHOCYTE (test code = LYMPH) % 12.9-45.1 MONOCYTE (test code = MON) % 0-11 CBC W/AUTO [id number] 08:07:00 Test Item Value Reference Range Interpretation Comments WHITE BLOOD CELL (test 32.0 K/MM3 3.8-9.8 HH MAYNARD Ray TO MAHENDRA R code = WBC) & [...] K/mm3 0.0-0.1 N code = NRBC#) WBC [id number] 08:07:00 Test Item Value Reference Range Interpretation Comments RBC MORPHOLOGY REQUIRED (test code = RBCM) TOTAL CELLS COUNTED (test code = TCC) #CELLS SEGMENTED NEUTROPHILS (test code = % 36.2-73.8 SEG) LYMPHOCYTE (test code = LYMPH) % 12.9-45.1 MONOCYTE (test code = MON) % 0-11 PLATELET ESTIMATE (test code = ADEQUATE PLTEST) PLATELET MORPHOLOGY (test code = NORMAL PLTMORPH) GLUCOSE BEDSIDE [id number] 07:48:00 Test Item Value Reference Range Interpretation Comments GLUCOSE BEDSIDE TESTING (test code 122 MG/DL 60-99 H = GLUBED) GLUCOSE BEDSIDE [id number] 05:14:00 Test Item Value Reference Range Interpretation Comments GLUCOSE BEDSIDE TESTING (test code 131 MG/DL 60-99 H = GLUBED) GLUCOSE BEDSIDE [id number] 05:14:00 Test Item Value Reference Range Interpretation Comments GLUCOSE BEDSIDE TESTING (test code 115 MG/DL 60-99 H = GLUBED) GLUCOSE BEDSIDE [id number] 05:14:00 Test Item Value Reference Range Interpretation Comments GLUCOSE BEDSIDE TESTING (test code 114 MG/DL 60-99 H = GLUBED) GLUCOSE BEDSIDE [id number] 05:12:00 Test Item Value Reference Range Interpretation Comments GLUCOSE BEDSIDE TESTING (test code 156 MG/DL 60-99 H = GLUBED) GLUCOSE BEDSIDE [id number] 05:12:00 Test Item Value Reference Range Interpretation Comments GLUCOSE BEDSIDE TESTING (test code 161 MG/DL 60-99 H = GLUBED) GLUCOSE BEDSIDE [id number] 05:12:00 Test Item Value Reference Range Interpretation Comments GLUCOSE BEDSIDE TESTING (test code = 84 MG/DL 60-99 N GLUBED) GLUCOSE BEDSIDE [id number] 05:12:00 Test Item Value Reference Range Interpretation Comments GLUCOSE BEDSIDE TESTING (test code 103 MG/DL 60-99 H = GLUBED) GLUCOSE BEDSIDE [id number] 05:12:00 Test Item Value Reference Range Interpretation Comments GLUCOSE BEDSIDE TESTING (test code 175 MG/DL 60-99 H = GLUBED) GLUCOSE BEDSIDE [id number] 05:11:00 Test Item Value Reference Range Interpretation Comments GLUCOSE BEDSIDE TESTING (test code 131 MG/DL 60-99 H = GLUBED) COLON SEGMENT RESEC. NOT [id number] 22:42:00 Test Item Value Reference Range Interpretation Comments COLON SEGMENT RESEC. NOT TUMOR (test code = COLONR) RUN DATE: 12/27/19 [employer] [facility] PAGE 1 RUN TIME: 2241 Specimen Inquiry RUN USER: INTERFACE PATIENT: JORGE A HORTA LOC: JEF U #: [id number] AGE/SX: 79/F ROOM: [facility] RE11/26/19REG DR: Tevin Samuels MD : 38 BED: A DIS: STATUS: ADM IN TLOC: SPEC #: 20:COCHRAN:S2821 RECD: 12/24/19 STATUS: DEVORA ALLEN #: [id number] KEENAN: 12/22/19 [facility] DR: Rashid Son MD ENTERED: 12/24/19 SP TYPE: COLONR OTHR DR: Self Referred Sarah Ovalles DO R2 Joe Higgins MD, Hansaa MD R1 Odalys Juárez MD R1 Adalberto,Donna Sutherland,Ramu Jordan,Raji CORREIA R1 Shell,Jose Alfredo Solis,Andrei Conner,Reuben Wilder,Jason Joseph,Juan Dixon,Ezequiel Smith,Georgina Claudio,Georgette CORREIAORDERED: SURG PATH LVL 5 CODES: P49007 O97433 - SMALL INTESTINE ISCHEMIA, NOS I33552 F30476 - SMALL INTESTINE PERFORATION, NO E22926 R86969 - SMALL INTESTINE NECROSIS, NOS K52942 - COLON, NOS [id number] [id number] - COLON, NOS EXCISION, NOS D31295 - TRANSVERSE COLO WO9468 - LYMPH NODE, NOS COPIES TO: Self Referred Sarah Ovalles DO R2 [address] [place] [address] Joe Higgins MD [address] [place] [address] Home Bryant MD R1 [address] [place] [address] CONTINUED ON NEXT PAGE RUN DATE: 12/27/19 [place] [facility] PAGE 2 RUN TIME: 2 Specimen Inquiry RUN USER: INTERFACE SPEC #: 20:COCHRAN:S2821 PATIENT: JORGE A HORTA #[id number] (Continued) --- COPIES TO: (Continued) Odalys Juárez MD R[address] [address] [place] [address] [place] [address] [facility] [address] [place] [address] Ramu Sutherland MD [address] [place], [place] [address] Raji Jordan MD R1 [address] [place] [address] [place] [address] [facility] [place] [id number] Rashid Son MD [address] [facility] [place], [place] [id number] @[employer] Andrei Solis MD [address] [place] [address] [place] [address] [facility] [address] [place] [address] Jason Wilder MD [address] [facility] [address] [place] [address] [place] [address] [place] [address] CONTINUED ON NEXT PAGE RUN DATE: 12/27/19 [facility] - LAB PAGE 3 RUN TIME: 2241 Specimen Inquiry RUN USER: INTERFACE SPEC #: 20:COCHRAN:[id number] PATIENT: JORGE A HORTA #[id number] (Continued) --- COPIES TO: (Continued) zEequiel Dixon [address] [place] [address] Georgina Smith MD [facility] [address] [place] [address] Georgette Claudio MD [address] [place] [address] PROCEDURES: SURG PATH LVL 5 (12/24/19-1050) TISSUES: A. COLON, NOS - RIGHT AND TRANSVERSE COLON CPT CODES CPT CODE(S): 08178 , , , , , , FINAL [...] CONTINUED ON NEXT PAGE RUN DATE: 12/27/19 [facility] PAGE 4 RUN TIME: 2241 Specimen Inquiry RUN USER: INTERFACE SPEC #: 20:COCHRAN:[id number] PATIENT: JORGE A HORTA #[id number] (Continued) --- GROSS DESCRIPTION (Continued) serosal surface. [...] final diagnosis. /elizabeth Signed SIGNATURE ON FILE SilvestrelucaXander 12/27/19 9557 END OF REPORT ARTERIAL BLOOD [id number] 22:17:00 Test Item Value Reference Range Interpretation [...] FIO2 (test code = COHBGFFIO2) 30 % PaO2/[id number] 22:17:00 Test Item Value Reference Range Interpretation Comments PaO2/FiO2 (test code = MSW8DFF1) mm/Hg ARTERIAL BLOOD [id number] 22:17:00 Test Item Value Reference Range Interpretation [...] FIO2 (test code = COHBGFFIO2) 30 % PaO2/[id number] 22:17:00 Test Item Value Reference Range Interpretation Comments PaO2/FiO2 (test code = ZWD1EEF7) 251.66 mm/Hg ARTERIAL BLOOD [id number] 16:54:00 Test Item Value Reference Range Interpretation [...] FIO2 (test code = COHBGFFIO2) 30 % PaO2/[id number] 16:54:00 Test Item Value Reference Range Interpretation Comments PaO2/FiO2 (test code = PAD6BMH8) mm/Hg ARTERIAL BLOOD [id number] 16:54:00 Test Item Value Reference Range Interpretation [...] FIO2 (test code = COHBGFFIO2) 30 % PaO2/[id number] 16:54:00 Test Item Value Reference Range Interpretation Comments PaO2/FiO2 (test code = ITY0NBX5) 310.33 mm/Hg ARTERIAL BLOOD [id number] 14:42:00 Test Item Value Reference Range Interpretation [...] FIO2 (test code = COHBGFFIO2) 30 % PaO2/[id number] 14:42:00 Test Item Value Reference Range Interpretation Comments PaO2/FiO2 (test code = RKP3YPT1) mm/Hg ARTERIAL BLOOD [id number] 14:42:00 Test Item Value Reference Range Interpretation [...] FIO2 (test code = COHBGFFIO2) 30 % PaO2/[id number] 14:42:00 Test Item Value Reference Range Interpretation Comments PaO2/FiO2 (test code = TAQ1MZV5) 270.66 mm/Hg CBC W/O [id number] 14:26:00 Test Item Value Reference Range Interpretation [...] code = NRBC#) GAVE TUBES TO JUVENCBNDIFFERENTIAL [id number] 14:26:00 Test Item Value Reference Range Interpretation Comments RBC MORPHOLOGY REQUIRED (test code = NORMAL RBCM) ANISOCYTOSIS (test code = ANISO) SLIGHT NONE PLATELET ESTIMATE (test code = ADEQUATE ADEQUATE PLTEST) PLATELET MORPHOLOGY (test code = NORMAL NORMAL PLTMORPH) GAVE TUBES TO JUVENCBNWBC [id number] 14:26:00 Test Item Value Reference Range Interpretation [...] 0-0 H GAVE TUBES TO JUVENCBNARTERIAL BLOOD [id number] 14:12:00 Test Item Value Reference Range Interpretation [...] FIO2 (test code = 30 % COHBGFFIO2) PaO2/[id number] 14:12:00 Test Item Value Reference Range Interpretation Comments PaO2/FiO2 (test code = UOQ3QWU8) mm/Hg ARTERIAL BLOOD [id number] 14:12:00 Test Item Value Reference Range Interpretation [...] FIO2 (test code = 30 % COHBGFFIO2) PaO2/[id number] 14:12:00 Test Item Value Reference Range Interpretation Comments PaO2/FiO2 (test code = KMT8MFX7) 226.66 mm/Hg GLUCOSE BEDSIDE [id number] 13:23:00 Test Item Value Reference Range Interpretation Comments GLUCOSE BEDSIDE TESTING (test code 122 MG/DL 60-99 H = GLUBED) ARTERIAL BLOOD [id number] 12:31:00 Test Item Value Reference Range Interpretation [...] FIO2 (test code = 24 % COHBGFFIO2) PaO2/[id number] 12:31:00 Test Item Value Reference Range Interpretation Comments PaO2/FiO2 (test code = VYX5ITR4) mm/Hg ARTERIAL BLOOD [id number] 12:31:00 Test Item Value Reference Range Interpretation [...] FIO2 (test code = 24 % COHBGFFIO2) PaO2/[id number] 12:31:00 Test Item Value Reference Range Interpretation Comments PaO2/FiO2 (test code = CXS8ITR2) 307.50 mm/Hg GLUCOSE BEDSIDE [id number] 12:00:00 Test Item Value Reference Range Interpretation Comments GLUCOSE BEDSIDE TESTING (test code 128 MG/DL 60-99 H = GLUBED) ARTERIAL BLOOD [id number] 10:42:00 Test Item Value Reference Range Interpretation [...] FIO2 (test code = COHBGFFIO2) 24 % PaO2/[id number] 10:42:00 Test Item Value Reference Range Interpretation Comments PaO2/FiO2 (test code = GJF0JDD0) mm/Hg ARTERIAL BLOOD [id number] 10:42:00 Test Item Value Reference Range Interpretation [...] FIO2 (test code = COHBGFFIO2) 24 % PaO2/[id number] 10:42:00 Test Item Value Reference Range Interpretation Comments PaO2/FiO2 (test code = MRI3TXW6) 347.91 mm/Hg ARTERIAL BLOOD [id number] 09:30:00 Test Item Value Reference Range Interpretation [...] FIO2 (test code = COHBGFFIO2) 24 % PaO2/[id number] 09:30:00 Test Item Value Reference Range Interpretation Comments PaO2/FiO2 (test code = LQG9SCK6) mm/Hg ARTERIAL BLOOD [id number] 09:30:00 Test Item Value Reference Range Interpretation Comments ARTERIAL BLOOD GAS PH (test code 7.43 mmHg 7.35-7.45 N = PHA) ARTERIAL BLOOD GAS PCO2 (test 34.9 mmHg 35.0-45.0 L code = PCO2A) ARTERIAL BLOOD GAS PO2 (test code 75.7 mmol/L 80.0-100.0 L = PO2A) BICARBONATE TOTAL HCO3 (test code 22.7 mmol/L 20.0-26.0 N = HCO3) BASE EXCESS (test code = STVEEN) -0.9 mmol/L -3.0-3.0 N ABG O2 SATURATION [...] FIO2 (test code = COHBGFFIO2) 24 % PaO2/[id number] 09:30:00 Test Item Value Reference Range Interpretation Comments PaO2/FiO2 (test code = CFE1SRV3) 315.41 mm/Hg BASIC METABOLIC [id number] 07:27:00 Test Item Value Reference Range Interpretation [...] MG/DL 8.4-10.2 N CA) GAVE TUBES TO [id number] 07:27:00 Test Item Value Reference Range Interpretation Comments PHOSPHOROUS (test code = PHOS) 4.2 MG/DL 2.5-4.5 N GAVE TUBES TO [id number] 07:27:00 Test Item Value Reference Range Interpretation Comments MAGNESIUM (test code = MAG) 2.0 MG/DL 1.6-2.3 N GAVE TUBES TO JUVENCBNBASIC METABOLIC [id number] 07:26:00 Test Item Value Reference Range Interpretation [...] = MG/DL 8.7-9.7 CA) GAVE TUBES TO [id number] 07:26:00 Test Item Value Reference Range Interpretation Comments PHOSPHOROUS (test code = PHOS) MG/DL 2.5-4.5 GAVE TUBES TO [id number] 07:26:00 Test Item Value Reference Range Interpretation Comments MAGNESIUM (test code = MAG) MG/DL 1.6-2.3 GAVE TUBES TO JUVENCBNBASIC METABOLIC [id number] 07:23:00 Test Item Value Reference Range Interpretation [...] = CA) MG/DL 8.7-9.7 GAVE TUBES TO [id number] 07:23:00 Test Item Value Reference Range Interpretation Comments PHOSPHOROUS (test code = PHOS) MG/DL 2.5-4.5 GAVE TUBES TO [id number] 07:23:00 Test Item Value Reference Range Interpretation Comments MAGNESIUM (test code = MAG) MG/DL 1.6-2.3 GAVE TUBES TO JUVENCBNCBC W/O [id number] 07:20:00 Test Item Value Reference Range Interpretation [...] code = NRBC#) GAVE TUBES TO JUVENCBNDIFFERENTIAL [id number] 07:20:00 Test Item Value Reference Range Interpretation Comments RBC MORPHOLOGY REQUIRED (test code = RBCM) PLATELET ESTIMATE (test code = PLTEST) ADEQUATE PLATELET MORPHOLOGY (test code = NORMAL PLTMORPH) GAVE TUBES TO JUVENCBNWBC [id number] 07:20:00 Test Item Value Reference Range Interpretation Comments TOTAL CELLS COUNTED (test code = TCC) #CELLS SEGMENTED NEUTROPHILS (test code = % 36.2-73.8 SEG) LYMPHOCYTE (test code = LYMPH) % 12.9-45.1 MONOCYTE (test code = MON) % 0-11 GAVE TUBES TO JUVENCBNCBC W/AUTO [id number] 07:20:00 Test Item Value Reference Range Interpretation [...] code = NRBC#) GAVE TUBES TO JUVENCBNWBC [id number] 07:20:00 Test Item Value Reference Range Interpretation [...] NORMAL PLTMORPH) GAVE TUBES TO JUVENCBNGLUCOSE BEDSIDE [id number] 20:59:00 Test Item Value Reference Range Interpretation Comments GLUCOSE BEDSIDE TESTING (test code 108 MG/DL 60-99 H = GLUBED) HGB [id number] 20:16:00 Test Item Value Reference Range Interpretation Comments HEMOGLOBIN (test code = HGB) 10.4 G/DL 11.2-14.9 L HEMATOCRIT (test code = HCT) 31.8 % 33.2-43.5 L ARTERIAL BLOOD [id number] 20:09:00 Test Item Value Reference Range Interpretation [...] FIO2 (test code = 24 % COHBGFFIO2) PaO2/[id number] 20:09:00 Test Item Value Reference Range Interpretation Comments PaO2/FiO2 (test code = [id number]) mm/Hg ARTERIAL BLOOD [id number] 20:09:00 Test Item Value Reference Range Interpretation [...] FIO2 (test code = 24 % COHBGFFIO2) PaO2/[id number] 20:09:00 Test Item Value Reference Range Interpretation Comments PaO2/FiO2 (test code = [id number]) 378.75 mm/Hg ARTERIAL BLOOD [id number] 16:56:00 Test Item Value Reference Range Interpretation [...] FIO2 (test code = 24 % COHBGFFIO2) PaO2/[id number] 16:56:00 Test Item Value Reference Range Interpretation Comments PaO2/FiO2 (test code = [id number]) mm/Hg ARTERIAL BLOOD [id number] 16:56:00 Test Item Value Reference Range Interpretation [...] FIO2 (test code = 24 % COHBGFFIO2) PaO2/[id number] 16:56:00 Test Item Value Reference Range Interpretation Comments PaO2/FiO2 (test code = [id number]) 413.75 mm/Hg GLUCOSE BEDSIDE [id number] 16:14:00 Test Item Value Reference Range Interpretation Comments GLUCOSE BEDSIDE TESTING (test code 106 MG/DL 60-99 H = GLUBED) HGB [id number] 15:44:00 Test Item Value Reference Range Interpretation Comments HEMOGLOBIN (test code = HGB) 9.9 G/DL 11.2-14.9 L HEMATOCRIT (test code = HCT) 29.1 % 33.2-43.5 L LACTIC [id number] 11:54:00 Test Item Value Reference Range Interpretation Comments LACTIC ACID (test code = LACT) 1.7 MMOL/L 0.7-2.1 N GLUCOSE BEDSIDE [id number] 11:16:00 Test Item Value Reference Range Interpretation Comments GLUCOSE BEDSIDE TESTING (test code 123 MG/DL 60-99 H = GLUBED) ARTERIAL BLOOD [id number] 10:36:00 Test Item Value Reference Range Interpretation [...] FIO2 (test code = COHBGFFIO2) 24 % PaO2/[id number] 10:36:00 Test Item Value Reference Range Interpretation Comments PaO2/FiO2 (test code = GDK6KOG5) mm/Hg ARTERIAL BLOOD [id number] 10:36:00 Test Item Value Reference Range Interpretation [...] FIO2 (test code = COHBGFFIO2) 24 % PaO2/[id number] 10:36:00 Test Item Value Reference Range Interpretation Comments PaO2/FiO2 (test code = GNM1RRL8) 414.16 mm/Hg HGB [id number] 07:58:00 Test Item Value Reference Range Interpretation Comments HEMOGLOBIN (test code = HGB) 9.6 G/DL 11.2-14.9 L HEMATOCRIT (test code = HCT) 28.7 % 33.2-43.5 L GLUCOSE BEDSIDE [id number] 07:48:00 Test Item Value Reference Range Interpretation Comments GLUCOSE BEDSIDE TESTING 120 MG/DL 60-99 H Noti fied Nurse~ (test code = GLUBED) [id number] 05:42:00 Test Item Value Reference Range Interpretation Comments VANCOMYCIN (test code = VANCO) 16.2 mcg/ML 5.0-26.0 N BASIC METABOLIC [id number] 05:38:00 Test Item Value Reference Range Interpretation [...] code = 8.6 MG/DL 8.4-10.2 N CA) [id number] 05:38:00 Test Item Value Reference Range Interpretation Comments PHOSPHOROUS (test code = PHOS) 3.8 MG/DL 2.5-4.5 N [id number] 05:38:00 Test Item Value Reference Range Interpretation Comments MAGNESIUM (test code = MAG) 2.0 MG/DL 1.6-2.3 N BASIC METABOLIC [id number] 05:37:00 Test Item Value Reference Range Interpretation [...] CALCIUM (test code = MG/DL 8.7-9.7 CA) [id number] 05:37:00 Test Item Value Reference Range Interpretation Comments PHOSPHOROUS (test code = PHOS) 3.8 MG/DL 2.5-4.5 N [id number] 05:37:00 Test Item Value Reference Range Interpretation Comments MAGNESIUM (test code = MAG) MG/DL 1.6-2.3 LACTIC [id number] 05:37:00 Test Item Value Reference Range Interpretation Comments LACTIC ACID (test code = LACT) 1.5 MMOL/L 0.7-2.1 N PROTHROMBIN [id number] 05:37:00 Test Item Value Reference Range Interpretation [...] eric embolism. 3.0 - 4.5 BASIC METABOLIC [id number] 05:36:00 Test Item Value Reference Range Interpretation Comments SODIUM (test code = 136 MMOL/L 137-145 L NA) POTASSIUM (test code = 3.7 MMOL/L 3.5-5.1 N K) CHLORIDE (test code = 109 MMOL/L 98-107 H CL) CARBON DIOXIDE (test MMOL/L 22-30 code = CO2) GLUCOSE (test code = MG/DL 74-106 GLU) BLOOD UREA NITROGEN MG/DL 08-24 (test code = BUN) GLOMERULAR FILTRATION > 60 Report ing units: RATE (test code = GFR) ml/mi n/1.73 m2 (Modified MDRD Formula)Referen ce Range: > or = 6 0 ml/min/1.73 m2 CREATININE (test code 0.80 MG/DL 0.52-1.04 N = CREAT) CALCIUM (test code = MG/DL 8.7-9.7 CA) [id number] 05:36:00 Test Item Value Reference Range Interpretation Comments PHOSPHOROUS (test code = PHOS) MG/DL 2.5-4.5 [id number] 05:36:00 Test Item Value Reference Range Interpretation Comments MAGNESIUM (test code = MAG) MG/DL 1.6-2.3 BASIC METABOLIC [id number] 05:33:00 Test Item Value Reference Range Interpretation [...] CALCIUM (test code = CA) MG/DL 8.7-9.7 [id number] 05:33:00 Test Item Value Reference Range Interpretation Comments PHOSPHOROUS (test code = PHOS) MG/DL 2.5-4.5 [id number] 05:33:00 Test Item Value Reference Range Interpretation Comments MAGNESIUM (test code = MAG) MG/DL 1.6-2.3 BASIC METABOLIC [id number] 05:33:00 Test Item Value Reference Range Interpretation [...] CALCIUM (test code = CA) MG/DL 8.7-9.7 [id number] 05:33:00 Test Item Value Reference Range Interpretation Comments PHOSPHOROUS (test code = PHOS) MG/DL 2.5-4.5 [id number] 05:33:00 Test Item Value Reference Range Interpretation Comments MAGNESIUM (test code = MAG) MG/DL 1.6-2.3 CBC W/AUTO [id number] 05:26:00 Test Item Value Reference Range Interpretation [...] = 0.03 K/mm3 0.0-0.1 N NRBC#) DIFFERENTIAL [id number] 05:26:00 Test Item Value Reference Range Interpretation Comments RBC MORPHOLOGY REQUIRED (test code = RBCM) PLATELET ESTIMATE (test code = PLTEST) ADEQUATE PLATELET MORPHOLOGY (test code = NORMAL PLTMORPH) CBC W/AUTO [id number] 05:26:00 Test Item Value Reference Range Interpretation [...] = 0.03 K/mm3 0.0-0.1 N NRBC#) DIFFERENTIAL [id number] 05:26:00 Test Item Value Reference Range Interpretation Comments RBC MORPHOLOGY REQUIRED (test code = RBCM) PLATELET ESTIMATE (test code = PLTEST) ADEQUATE PLATELET MORPHOLOGY (test code = NORMAL PLTMORPH) ARTERIAL BLOOD [id number] 04:54:00 Test Item Value Reference Range Interpretation [...] SATA) report to and readback by by MAKSIMJB1 at 12/26/2019 4:47 :35 AM ABG DELIVERY [...] FIO2 (test code = 24 % COHBGFFIO2) PaO2/[id number] 04:54:00 Test Item Value Reference Range Interpretation Comments PaO2/FiO2 (test code = QVS7SKI3) mm/Hg ARTERIAL BLOOD [id number] 04:54:00 Test Item Value Reference Range Interpretation [...] SATA) report to and readback by by MAKSIMJB1 at 12/26/2019 4:47 :35 AM ABG DELIVERY [...] FIO2 (test code = 24 % COHBGFFIO2) PaO2/[id number] 04:54:00 Test Item Value Reference Range Interpretation Comments PaO2/FiO2 (test code = BQK8CVR4) 394.16 mm/Hg GLUCOSE BEDSIDE [id number] 21:17:00 Test Item Value Reference Range Interpretation Comments GLUCOSE BEDSIDE TESTING (test code 127 MG/DL 60-99 H = GLUBED) HGB [id number] 19:42:00 Test Item Value Reference Range Interpretation Comments HEMOGLOBIN (test code = HGB) 10.1 G/DL 11.2-14.9 L HEMATOCRIT (test code = HCT) 30.4 % 33.2-43.5 L UNABLE TO DRAW BLOOD, REASON: CBNNOTIFIED PATIENT CARE STAFF: ERIK 12/25/19 AT 1744 BY Kristen Henry AnGLUCOSE BEDSIDE [id number] 15:53:00 Test Item Value Reference Range Interpretation Comments GLUCOSE BEDSIDE TESTING 135 MG/DL 60-99 H Noti fied Nurse~ (test code = GLUBED) LACTIC [id number] 15:16:00 Test Item Value Reference Range Interpretation Comments LACTIC ACID (test code = LACT) 1.6 MMOL/L 0.7-2.1 N UNABLE TO DRAW BLOOD, REASON: CBNNOTIFIED PATIENT CARE STAFF: ERIK 12/25/19 AT 1412 BY Kristen Henry AnVANCOMYCIN [id number] 15:12:00 Test Item Value Reference Range Interpretation Comments VANCOMYCIN TROUGH (test code = 20.4 UG/ML 10.0-20.0 H VANCT) UNABLE TO DRAW BLOOD, REASON: CBNNOTIFIED PATIENT CARE STAFF: ERIK 12/25/19 AT 1411 BY Kristen Henry AnHGB [id number] 14:45:00 Test Item Value Reference Range Interpretation Comments HEMOGLOBIN (test code = HGB) 10.5 G/DL 11.2-14.9 L HEMATOCRIT (test code = HCT) 31.2 % 33.2-43.5 L UNABLE TO DRAW BLOOD, REASON: CBNNOTIFIED PATIENT CARE STAFF: ERIK 12/25/19 AT 1412 BY Kristen Henry AnLACTIC [id number] 12:57:00 Test Item Value Reference Range Interpretation Comments LACTIC ACID (test code = LACT) 1.4 MMOL/L 0.7-2.1 N GLUCOSE BEDSIDE [id number] 12:18:00 Test Item Value Reference Range Interpretation Comments GLUCOSE BEDSIDE TESTING 136 MG/DL 60-99 H Noti fied Nurse~ (test code = GLUBED) HGB [id number] 08:53:00 Test Item Value Reference Range Interpretation Comments HEMOGLOBIN (test code = HGB) 10.2 G/DL 11.2-14.9 L HEMATOCRIT (test code = HCT) 30.2 % 33.2-43.5 L UNABLE TO DRAW BLOOD, REASON: CBNNOTIFIED PATIENT CARE STAFF: DANILO PABON 12/25/19 AT 0835 BY Aydee Daniels CHEST [id number] 07:44:00 [facility] 1940 Sex: F Patient Name: JORGE A HORTA Unit No: [id number] EXAMS: CPT CODE: [id number] XR CHEST 1V [id number] LOCATION: T18 EXAM: CHEST 1 VIEW INDICATION: [...] [id number].SDR.JP19 Orig Print D/T: S: 12/25/2019 (0747) [facility] NAME: JORGE A HORTA [address] [place] [address] PHYS: [place] [address] : 1940 AGE: 79 SEX: F LOC: [id number].SI06 A PHONE #: [phone] EXAM DATE: 12/25/2019 STATUS: ADM IN FAX #: [phone] RADIOLOGY NO: PAGE 1 Signed ReportGLUCOSE BEDSIDE [id number] 07:42:00 Test Item Value Reference Range Interpretation Comments GLUCOSE BEDSIDE TESTING 132 MG/DL 60-99 H Noti fied Nurse~ (test code = GLUBED) PROTHROMBIN [id number] 05:02:00 Test Item Value Reference Range Interpretation [...] eric embolism. 3.0 - 4.5 ARTERIAL BLOOD [id number] 04:55:00 Test Item Value Reference Range Interpretation [...] FIO2 (test code = COHBGFFIO2) 35 % PaO2/[id number] 04:55:00 Test Item Value Reference Range Interpretation Comments PaO2/FiO2 (test code = TTK1AIT4) mm/Hg ARTERIAL BLOOD [id number] 04:55:00 Test Item Value Reference Range Interpretation [...] FIO2 (test code = COHBGFFIO2) 35 % PaO2/[id number] 04:55:00 Test Item Value Reference Range Interpretation Comments PaO2/FiO2 (test code = BED9GNN2) 242.85 mm/Hg CBC W/O [id number] 04:33:00 Test Item Value Reference Range Interpretation Comments WHITE BLOOD CELL (test 36.4 K/MM3 3.8-9.8 MAYNARD Ray TO LIN M& code = WBC) READBACK [...] K/mm3 0.0-0.1 N code = NRBC#) DIFFERENTIAL [id number] 04:33:00 Test Item Value Reference Range Interpretation Comments RBC MORPHOLOGY REQUIRED (test code = ABNORMAL RBCM) POIKILOCYTOSIS (test code = POIK) FEW NONE ANISOCYTOSIS (test code = ANISO) SLIGHT NONE CRENATED CELLS (test code = CREN) FEW NONE PLATELET ESTIMATE (test code = ADEQUATE ADEQUATE PLTEST) PLATELET MORPHOLOGY (test code = NORMAL NORMAL PLTMORPH) WBC [id number] 04:33:00 Test Item Value Reference Range Interpretation [...] MON) 2.5 % 0-11 N CBC W/O [id number] 03:36:00 Test Item Value Reference Range Interpretation Comments WHITE BLOOD CELL (test 36.4 K/MM3 3.8-9.8 ALEYDA Bell TO LIN M& code = [...] K/mm3 0.0-0.1 N code = NRBC#) DIFFERENTIAL [id number] 03:36:00 Test Item Value Reference Range Interpretation Comments RBC MORPHOLOGY REQUIRED (test code = RBCM) PLATELET ESTIMATE (test code = PLTEST) ADEQUATE PLATELET MORPHOLOGY (test code = NORMAL PLTMORPH) WBC [id number] 03:36:00 Test Item Value Reference Range Interpretation Comments TOTAL CELLS COUNTED (test code = TCC) #CELLS SEGMENTED NEUTROPHILS (test code = % 36.2-73.8 SEG) LYMPHOCYTE (test code = LYMPH) % 12.9-45.1 MONOCYTE (test code = MON) % 0-11 CBC W/AUTO [id number] 03:36:00 Test Item Value Reference Range Interpretation Comments WHITE BLOOD CELL (test 36.4 K/MM3 3.8-9.8 BERNABE Bai& code = WBC) READBACK ON 12/25/19 AT 033 4 BY JONAS,KEYANNA RED BLOOD CELL (test 3.30 M/MM3 3.58-4.97 [...] K/mm3 0.0-0.1 N code = NRBC#) WBC [id number] 03:36:00 Test Item Value Reference Range Interpretation Comments RBC MORPHOLOGY REQUIRED (test code = RBCM) TOTAL CELLS COUNTED (test code = TCC) #CELLS SEGMENTED NEUTROPHILS (test code = % 36.2-73.8 SEG) LYMPHOCYTE (test code = LYMPH) % 12.9-45.1 MONOCYTE (test code = MON) % 0-11 PLATELET ESTIMATE (test code = ADEQUATE PLTEST) PLATELET MORPHOLOGY (test code = NORMAL PLTMORPH) BASIC METABOLIC [id number] 03:28:00 Test Item Value Reference Range Interpretation [...] code = 8.6 MG/DL 8.4-10.2 N CA) [id number] 03:28:00 Test Item Value Reference Range Interpretation Comments PHOSPHOROUS (test code = PHOS) 3.4 MG/DL 2.5-4.5 N [id number] 03:28:00 Test Item Value Reference Range Interpretation Comments MAGNESIUM (test code = MAG) 2.3 MG/DL 1.6-2.3 [id number] 21:06:00 Test Item Value Reference Range Interpretation Comments POTASSIUM (test code = K) 3.8 MMOL/L 3.5-5.1 N UNABLE TO DRAW BLOOD, REASON: CBNNOTIFIED PATIENT CARE STAFF: LEXUS 12/24/19 AT 2019 BY Kristen Henry2020-11-15 21:06:00 Test Item Value Reference Range Interpretation Comments CALCIUM (test code = CA) 8.1 MG/DL 8.4-10.2 L UNABLE TO DRAW BLOOD, REASON: CBNNOTIFIED PATIENT CARE STAFF: [facility] 12/24/192019 BY Kristen HenryGNESIUM2020-11-15 21:06:00 Test Item Value Reference Range Interpretation Comments MAGNESIUM (test code = MAG) 1.9 MG/DL 1.6-2.3 UNABLE TO DRAW BLOOD, REASON: CBNNOTIFIED PATIENT CARE STAFF: [facility] 12/24/192019 BY Kristen Henry [id number] 21:05:00 Test Item Value Reference Range Interpretation Comments POTASSIUM (test code = K) 3.8 MMOL/L 3.5-5.1 N UNABLE TO DRAW BLOOD, REASON: CBNNOTIFIED PATIENT CARE STAFF: [facility] 12/24/192019 BY Kristen Henry [id number] 21:05:00 Test Item Value Reference Range Interpretation Comments CALCIUM (test code = CA) 8.1 MG/DL 8.4-10.2 L UNABLE TO DRAW BLOOD, REASON: CBNNOTIFIED PATIENT CARE STAFF: [facility] 12/24/192019 BY Kristen HenryGNESIUM2020-11-15 21:05:00 Test Item Value Reference Range Interpretation Comments MAGNESIUM (test code = MAG) MG/DL 1.6-2.3 UNABLE TO DRAW BLOOD, REASON: CBNNOTIFIED PATIENT CARE STAFF: [facility] 12/24/192019 BY Kristen Henry [id number] 21:02:00 Test Item Value Reference Range Interpretation Comments POTASSIUM (test code = K) 3.8 MMOL/L 3.5-5.1 N UNABLE TO DRAW BLOOD, REASON: CBNNOTIFIED PATIENT CARE STAFF: [facility] 12/24/192019 BY Kristen HenryLCIUM2020-11-15 21:02:00 Test Item Value Reference Range Interpretation Comments CALCIUM (test code = CA) MG/DL 8.7-9.7 UNABLE TO DRAW BLOOD, REASON: CBNNOTIFIED PATIENT CARE STAFF: [facility] 12/24/192019 BY Kristen Henry [id number] 21:02:00 Test Item Value Reference Range Interpretation Comments MAGNESIUM (test code = MAG) MG/DL 1.6-2.3 UNABLE TO DRAW BLOOD, REASON: CBNNOTIFIED PATIENT CARE STAFF: ARNOLDAMYDULCE 12/24/192019 BY Kristen Henry AnHGB [id number] 20:48:00 Test Item Value Reference Range Interpretation Comments HEMOGLOBIN (test code = HGB) 8.2 G/DL 11.2-14.9 L HEMATOCRIT (test code = HCT) 24.2 % 33.2-43.5 L UNABLE TO DRAW BLOOD, REASON: CBNNOTIFIED PATIENT CARE STAFF: ARNOLDAMOS 12/24/192019 BY Kristen Henry AnGLUCOSE BEDSIDE [id number] 20:27:00 Test Item Value Reference Range Interpretation Comments GLUCOSE BEDSIDE TESTING (test code 139 MG/DL 60-99 H = GLUBED) VANCOMYCIN [id number] 16:07:00 Test Item Value Reference Range Interpretation Comments VANCOMYCIN TROUGH (test code = 15.9 UG/ML 10.0-20.0 N VANCT) UNABLE TO DRAW BLOOD, REASON: CBNNOTIFIED PATIENT CARE STAFF: TREY 12/24/19 AT 1519 BY Kristen Henry AnARTERIAL BLOOD [id number] 15:59:00 Test Item Value Reference Range Interpretation [...] FIO2 (test code = 35 % COHBGFFIO2) PaO2/[id number] 15:59:00 Test Item Value Reference Range Interpretation Comments PaO2/FiO2 (test code = WSS4KQK1) mm/Hg ARTERIAL BLOOD [id number] 15:59:00 Test Item Value Reference Range Interpretation [...] FIO2 (test code = 35 % COHBGFFIO2) PaO2/[id number] 15:59:00 Test Item Value Reference Range Interpretation Comments PaO2/FiO2 (test code = DKE1RDF3) 298.28 mm/Hg PTT [id number] 15:58:00 Test Item Value Reference Range Interpretation Comments PTT ACTIVATED (test code = APTT) 39.0 SECONDS 25.1-36.5 H UNABLE TO DRAW BLOOD, REASON: CBNNOTIFIED PATIENT CARE STAFF: CONSUELO 12/24/19 AT 1519 BY Kristen Henry AnHGB [id number] 15:41:00 Test Item Value Reference Range Interpretation Comments HEMOGLOBIN (test code = HGB) 8.2 G/DL 11.2-14.9 L HEMATOCRIT (test code = HCT) 24.6 % 33.2-43.5 L UNABLE TO DRAW BLOOD, REASON: CBNNOTIFIED PATIENT CARE STAFF: [facility] 12/24/19 AT 1519 BY Kristen Henry AnARTERIAL BLOOD [id number] 13:00:00 Test Item Value Reference Range Interpretation [...] FIO2 (test code = COHBGFFIO2) 35 % PaO2/[id number] 13:00:00 Test Item Value Reference Range Interpretation Comments PaO2/FiO2 (test code = BKL1SMT5) mm/Hg ARTERIAL BLOOD [id number] 13:00:00 Test Item Value Reference Range Interpretation [...] FIO2 (test code = COHBGFFIO2) 35 % PaO2/[id number] 13:00:00 Test Item Value Reference Range Interpretation Comments PaO2/FiO2 (test code = CZR5DFJ6) 318.57 mm/Hg HGB [id number] 12:52:00 Test Item Value Reference Range Interpretation Comments HEMOGLOBIN (test code = HGB) 8.3 G/DL 11.2-14.9 L HEMATOCRIT (test code = HCT) 25.1 % 33.2-43.5 L ARTERIAL BLOOD [id number] 09:55:00 Test Item Value Reference Range Interpretation [...] code = 0.3 % 0.4-1.5 L METHGB) PaO2/[id number] 09:55:00 Test Item Value Reference Range Interpretation Comments PaO2/FiO2 (test code = DDP4DMB4) mm/Hg ARTERIAL BLOOD [id number] 09:55:00 Test Item Value Reference Range Interpretation [...] code = 0.3 % 0.4-1.5 L METHGB) PaO2/[id number] 09:55:00 Test Item Value Reference Range Interpretation Comments PaO2/FiO2 (test code = WFU5QSO6) 318.57 mm/Hg [id number] 09:53:00 Test Item Value Reference Range Interpretation Comments PHOSPHOROUS (test code = PHOS) 3.7 MG/DL 2.5-4.5 N [id number] 09:53:00 Test Item Value Reference Range Interpretation Comments MAGNESIUM (test code = MAG) 1.5 MG/DL 1.6-2.3 L LACTIC [id number] 09:12:00 Test Item Value Reference Range Interpretation Comments LACTIC ACID (test code = LACT) 1.5 MMOL/L 0.7-2.1 N HGB [id number] 08:55:00 Test Item Value Reference Range Interpretation Comments HEMOGLOBIN (test code = HGB) 8.5 G/DL 11.2-14.9 L HEMATOCRIT (test code = HCT) 25.3 % 33.2-43.5 L CBC W/O [id number] 07:59:00 Test Item Value Reference Range Interpretation Comments WHITE BLOOD CELL (test 33.9 K/MM3 3.8-9.8 BERNABE Bai code = WBC) & READBACK ON 12/24/19 [...] K/mm3 0.0-0.1 N code = NRBC#) DIFFERENTIAL [id number] 07:59:00 Test Item Value Reference Range Interpretation Comments RBC MORPHOLOGY REQUIRED (test code = NORMAL RBCM) POIKILOCYTOSIS (test code = POIK) FEW NONE GIAN CELLS (test code = GIAN) FEW NONE PLATELET ESTIMATE (test code = ADEQUATE ADEQUATE PLTEST) PLATELET MORPHOLOGY (test code = NORMAL NORMAL PLTMORPH) WBC [id number] 07:59:00 Test Item Value Reference Range Interpretation [...] 0-0 H code = NRBC) GLUCOSE BEDSIDE [id number] 07:55:00 Test Item Value Reference Range Interpretation Comments GLUCOSE BEDSIDE TESTING (test code 125 MG/DL 60-99 H = GLUBED) - XR CHEST [id number] 06:07:00 [facility] 1940 Sex: F Patient Name: JORGE A HORTA Unit No: [id number] EXAMS: CPT CODE: [id number] XR CHEST 1V [id number] Examination: One view chest x-ray Location code: [...] Technologist: Yobani Elias, RT(R) Transcrpt Date/Tm/Trnsp: 12/24/2019 (0607) AuraVR5 Orig Print D/T: S: 12/24/2019 (0628) [facility] NAME: JORGE A HORTA [address] [place] PHYS: [place] [address] : 1940 AGE: 79 SEX: F LOC: [id number] Monty PHONE #: [phone] EXAM DATE: 12/24/2019 STATUS: ADM IN FAX #: [phone] RADIOLOGY NO: PAGE 1 Signed Report COMPREHENSIVE METABOLIC [id number] 05:40:00 Test Item Value Reference Range Interpretation [...] N (test code = ALKP) COMPREHENSIVE METABOLIC [id number] 05:38:00 Test Item Value Reference Range Interpretation [...] UNITS/L 38-126 (test code = ALKP) LACTIC [id number] 05:38:00 Test Item Value Reference Range Interpretation Comments LACTIC ACID (test code = LACT) 2.1 MMOL/L 0.7-2.1 N COMPREHENSIVE METABOLIC [id number] 05:37:00 Test Item Value Reference Range Interpretation [...] code = UNITS/L 38-126 ALKP) COMPREHENSIVE METABOLIC [id number] 05:36:00 Test Item Value Reference Range Interpretation [...] (test code = UNITS/L 38-126 ALKP) PROTHROMBIN [id number] 05:32:00 Test Item Value Reference Range Interpretation [...] eric embolism. 3.0 - 4.5 CBC W/O [id number] 05:27:00 Test Item Value Reference Range Interpretation [...] K/mm3 0.0-0.1 N code = NRBC#) DIFFERENTIAL [id number] 05:27:00 Test Item Value Reference Range Interpretation Comments RBC MORPHOLOGY REQUIRED (test code = RBCM) PLATELET ESTIMATE (test code = PLTEST) ADEQUATE PLATELET MORPHOLOGY (test code = NORMAL PLTMORPH) WBC [id number] 05:27:00 Test Item Value Reference Range Interpretation Comments TOTAL CELLS COUNTED (test code = TCC) #CELLS SEGMENTED NEUTROPHILS (test code = % 36.2-73.8 SEG) LYMPHOCYTE (test code = LYMPH) % 12.9-45.1 MONOCYTE (test code = MON) % 0-11 CBC W/AUTO [id number] 05:27:00 Test Item Value Reference Range Interpretation Comments WHITE BLOOD CELL (test 33.9 K/MM3 3.8-9.8 ALEYDA Bell TO MARY M code = WBC) & READBACK ON 12/24/19 AT 052 6 BY Bhumi Rodriguez er RED BLOOD CELL (test 3.02 M/MM3 [...] K/mm3 0.0-0.1 N code = NRBC#) WBC [id number] 05:27:00 Test Item Value Reference Range Interpretation Comments RBC MORPHOLOGY REQUIRED (test code = RBCM) TOTAL CELLS COUNTED (test code = TCC) #CELLS SEGMENTED NEUTROPHILS (test code = % 36.2-73.8 SEG) LYMPHOCYTE (test code = LYMPH) % 12.9-45.1 MONOCYTE (test code = MON) % 0-11 PLATELET ESTIMATE (test code = ADEQUATE PLTEST) PLATELET MORPHOLOGY (test code = NORMAL PLTMORPH) HGB [id number] 00:34:00 Test Item Value Reference Range Interpretation Comments HEMOGLOBIN (test code = HGB) 7.4 G/DL 11.2-14.9 L HEMATOCRIT (test code = HCT) 23.1 % 33.2-43.5 L LACTIC [id number] 00:28:00 Test Item Value Reference Range Interpretation Comments LACTIC ACID (test code = LACT) 2.2 MMOL/L 0.7-2.1 H GLUCOSE BEDSIDE [id number] 00:12:00 Test Item Value Reference Range Interpretation Comments GLUCOSE BEDSIDE TESTING (test code = 88 MG/DL 60-99 N GLUBED) GLUCOSE BEDSIDE [id number] 22:03:00 Test Item Value Reference Range Interpretation Comments GLUCOSE BEDSIDE TESTING (test code = 75 MG/DL 60-99 N GLUBED) LACTIC [id number] 18:59:00 Test Item Value Reference Range Interpretation Comments LACTIC ACID (test code = LACT) 2.7 MMOL/L 0.7-2.1 H UNABLE TO DRAW BLOOD, REASON: CBNNOTIFIED PATIENT CARE STAFF: [facility] 12/23/19 AT 133 BY Kristen Henry AnGLUCOSE BEDSIDE [id number] 16:34:00 Test Item Value Reference Range Interpretation Comments GLUCOSE BEDSIDE TESTING (test code = 81 MG/DL 60-99 N GLUBED) LACTIC [id number] 16:07:00 Test Item Value Reference Range Interpretation Comments LACTIC ACID (test code = LACT) 2.8 MMOL/L 0.7-2.1 H UNABLE TO DRAW BLOOD, REASON: CBNNOTIFIED PATIENT CARE STAFF: [facility] 12/23/19 AT 133 BY Kristen Henry [id number] 15:54:00 Test Item Value Reference Range Interpretation Comments HEMOGLOBIN (test code = HGB) 7.8 G/DL 11.2-14.9 L UNABLE TO DRAW BLOOD, REASON: CBNNOTIFIED PATIENT CARE STAFF: [facility] 12/23/19 AT [facility] BY Kristen HenryHGB [id number] 12:42:00 Test Item Value Reference Range Interpretation Comments HEMOGLOBIN (test code = HGB) 9.4 G/DL 11.2-14.9 L HEMATOCRIT (test code = HCT) 28.8 % 33.2-43.5 L BASIC METABOLIC [id number] 12:29:00 Test Item Value Reference Range Interpretation [...] code = 7.6 MG/DL 8.4-10.2 L CA) [id number] 12:29:00 Test Item Value Reference Range Interpretation Comments MAGNESIUM (test code = MAG) 1.4 MG/DL 1.6-2.3 L LACTIC [id number] 12:27:00 Test Item Value Reference Range Interpretation Comments LACTIC ACID (test code = LACT) 3.1 MMOL/L 0.7-2.1 H BASIC METABOLIC [id number] 12:27:00 Test Item Value Reference Range Interpretation [...] CALCIUM (test code = MG/DL 8.7-9.7 CA) [id number] 12:27:00 Test Item Value Reference Range Interpretation Comments MAGNESIUM (test code = MAG) MG/DL 1.6-2.3 BASIC METABOLIC [id number] 12:24:00 Test Item Value Reference Range Interpretation [...] CALCIUM (test code = CA) MG/DL 8.7-9.7 [id number] 12:24:00 Test Item Value Reference Range Interpretation Comments MAGNESIUM (test code = MAG) MG/DL 1.6-2.3 LACTIC [id number] 09:12:00 Test Item Value Reference Range Interpretation Comments LACTIC ACID (test code = LACT) 3.6 MMOL/L 0.7-2.1 H [id number] 09:05:00 Test Item Value Reference Range Interpretation Comments HEMOGLOBIN (test code = HGB) 10.9 G/DL 11.2-14.9 L - XR CHEST [id number] 06:04:00 [facility] 1940 Sex: F Patient Name: JORGE A HORTA Unit No: [id number] EXAMS: CPT CODE: [id number] XR CHEST 1V [id number] LOCATION: H43 EXAM: - XR CHEST 1V [...] MD Technologist: Yobani Elias, RT(R) Transcrpt Date/Tm/Trnsp: 12/23/2019 (0604) [id number].[email or web address] Orig Print D/T: S: 12/23/2019(0707) [facility] NAME: JORGE A HORTA [id number] [address] PHYS: [place] [address] : 1940 AGE: 79 SEX: F LOC: [id number].[id number] PHONE #: [phone] EXAM DATE: 12/23/2019 STATUS: ADM IN FAX #: [phone] RADIOLOGY NO: PAGE 1 Signed ReportCBC W/AUTO [id number] 05:32:00 Test Item Value Reference Range Interpretation [...] 0.02 K/mm3 0.0-0.1 N NRBC#) COMPREHENSIVE METABOLIC [id number] 05:23:00 Test Item Value Reference Range Interpretation [...] 38-126 (test code = ALKP) COMPREHENSIVE METABOLIC [id number] 05:09:00 Test Item Value Reference Range Interpretation [...] code = UNITS/L 38-126 ALKP) COMPREHENSIVE METABOLIC [id number] 05:08:00 Test Item Value Reference Range Interpretation [...] (test code = UNITS/L 38-126 ALKP) LACTIC [id number] 05:04:00 Test Item Value Reference Range Interpretation Comments LACTIC ACID (test code = LACT) 3.8 MMOL/L 0.7-2.1 H PATIENT RECEIVING BLOODCBC W/AUTO [id number] 03:12:00 Test Item Value Reference Range Interpretation [...] K/mm3 0.0-0.1 N code = NRBC#) WBC [id number] 03:12:00 Test Item Value Reference Range Interpretation [...] (test code = NORMAL NORMAL PLTMORPH) PROTHROMBIN [id number] 00:01:00 Test Item Value Reference Range Interpretation [...] - 4.5 QNS AT 2318. SPOKE TO appCREAR. LINE DRAWPTT [id number] 00:01:00 Test Item Value Reference Range Interpretation Comments PTT ACTIVATED (test code = APTT) 47.6 SECONDS 25.1-36.5 H QNS AT 2318. SPOKE TO appCREAR. LINE [id number] 00:01:00 Test Item Value Reference Range Interpretation Comments FIBRINOGEN (test code = FIB) 181 mg/dL 200-393 L QNS AT 2318. SPOKE TO appCREAR. LINE [id number] 00:01:00 Test Item Value Reference Range Interpretation Comments D-DIMER (test 98028 ng/mLFEU 0-499 H Negative Pre dictive Value [...] pr ocedures. QNS AT 2318. SPOKE TO appCREAR. LINE DRAWARTERIAL BLOOD [id number] 23:52:00 Test Item Value Reference Range Interpretation [...] FIO2 (test code = COHBGFFIO2) 85 % PaO2/[id number] 23:52:00 Test Item Value Reference Range Interpretation Comments PaO2/FiO2 (test code = [id number]) mm/Hg ARTERIAL BLOOD [id number] 23:52:00 Test Item Value Reference Range Interpretation [...] FIO2 (test code = COHBGFFIO2) 85 % PaO2/[id number] 23:52:00 Test Item Value Reference Range Interpretation Comments PaO2/FiO2 (test code = [id number]) 99.88 mm/Hg BASIC METABOLIC [id number] 23:35:00 Test Item Value Reference Range Interpretation Comments SODIUM (test code = 140 MMOL/L 137-145 N NA) POTASSIUM (test code = 2.6 MMOL/L 3.5-5.1 JAVIER Hodges& Vernell) READBACK ON AT 2335 BY Chetan Sewell CHLORIDE (test code = 108 MMOL/L 98-107 [...] CALCIUM (test code = MG/DL 8.7-9.7 CA) [id number] 23:35:00 Test Item Value Reference Range Interpretation Comments AMYLASE (test code = CAROLE) 89 UNITS/L 30-110 N [id number] 23:35:00 Test Item Value Reference Range Interpretation Comments LIPASE (test code = LIP) UNITS/L 23-300 [id number] 23:35:00 Test Item Value Reference Range Interpretation Comments MAGNESIUM (test code = MAG) MG/DL 1.6-2.3 BASIC METABOLIC [id number] 23:35:00 Test Item Value Reference Range Interpretation Comments SODIUM (test code = 140 MMOL/L 137-145 N NA) POTASSIUM (test code = 2.6 MMOL/L 3.5-5.1 JAVIER Matt) READBACK ON AT 2335 BY Chetan Sewell CHLORIDE (test code = 108 MMOL/L 98-107 [...] code = 8.0 MG/DL 8.4-10.2 L CA) [id number] 23:35:00 Test Item Value Reference Range Interpretation Comments AMYLASE (test code = CAROLE) 89 UNITS/L 30-110 N [id number] 23:35:00 Test Item Value Reference Range Interpretation Comments LIPASE (test code = LIP) 39 UNITS/L 23-300 N [id number] 23:35:00 Test Item Value Reference Range Interpretation Comments MAGNESIUM (test code = MAG) 1.4 MG/DL 1.6-2.3 L LACTIC [id number] 23:32:00 Test Item Value Reference Range Interpretation Comments LACTIC ACID (test code = LACT) 2.6 MMOL/L 0.7-2.1 H BASIC METABOLIC [id number] 23:31:00 Test Item Value Reference Range Interpretation [...] CALCIUM (test code = CA) MG/DL 8.7-9.7 [id number] 23:31:00 Test Item Value Reference Range Interpretation Comments AMYLASE (test code = CAROLE) UNITS/L 30-110 [id number] 23:31:00 Test Item Value Reference Range Interpretation Comments LIPASE (test code = LIP) UNITS/L 23-300 [id number] 23:31:00 Test Item Value Reference Range Interpretation Comments MAGNESIUM (test code = MAG) MG/DL 1.6-2.3 CBC W/AUTO [id number] 23:28:00 Test Item Value Reference Range Interpretation [...] K/mm3 0.0-0.1 N code = NRBC#) DIFFERENTIAL [id number] 23:28:00 Test Item Value Reference Range Interpretation Comments RBC MORPHOLOGY REQUIRED (test code = RBCM) PLATELET ESTIMATE (test code = PLTEST) ADEQUATE PLATELET MORPHOLOGY (test code = NORMAL PLTMORPH) CBC W/AUTO [id number] 23:28:00 Test Item Value Reference Range Interpretation [...] K/mm3 0.0-0.1 N code = NRBC#) DIFFERENTIAL [id number] 23:28:00 Test Item Value Reference Range Interpretation Comments RBC MORPHOLOGY REQUIRED (test code = RBCM) PLATELET ESTIMATE (test code = PLTEST) ADEQUATE PLATELET MORPHOLOGY (test code = NORMAL PLTMORPH) PLATELET [id number] 23:14:00 Test Item Value Reference Range Interpretation Comments PLATELET COUNT TEST NOT PERFORMED 129-368 SEE CBC REPORT (test code = PLT) K/MM3 - XR CHEST [id number] 23:02:00 [facility] 1940 Sex: F Patient Name: JORGE A HORTA Unit No: [id number] EXAMS: CPT CODE: [id number] XR CHEST 1V 97719 AFTER HOURS SERVICE ON: 12/22/2019 11:01 PM [...] Diana Quintana (RT) Transcrpt Date/Tm/Trnsp: 12/22/2019 (2301) AuraMA50 Orig Print D/T: S: 12/22/2019 (2305) [facility] NAME: JORGE A HORTA [address] PHYS: [place] [address] : 1940 AGE: 79 SEX: F LOC: Z.SI06 A PHONE #: [phone] EXAM DATE: 12/22/2019 STATUS: ADM IN FAX #: [phone] RADIOLOGY NO: PAGE 1 Signed ReportARTERIAL BLOOD [id number] 22:53:00 Test Item Value Reference Range Interpretation [...] SATA) report to and readback by by MAKSIMD at 12/22/2019 10:5 2:56 PM ABG DELIVERY (test AMBU code = [place]) ABG TEMPERATURE (test 37.0 C >37 code = TEMPA) ABG SITE (test code = AL SITEA) ALLENS TEST (test code NA CHECK = ALLENS) FIO2 (test code = 100 % COHBGFFIO2) PaO2/[id number] 22:53:00 Test Item Value Reference Range Interpretation Comments PaO2/FiO2 (test code = PGC9YQH4) mm/Hg ARTERIAL BLOOD [id number] 22:53:00 Test Item Value Reference Range Interpretation [...] SATA) report to and readback by by RAFAT.HQD at 12/22/2019 10:5 2:56 PM ABG DELIVERY (test AMBU code = [place]) ABG TEMPERATURE (test 37.0 C >37 code = TEMPA) ABG SITE (test code = AL SITEA) ALLENS TEST (test code NA CHECK = ALLENS) FIO2 (test code = 100 % COHBGFFIO2) PaO2/[id number] 22:53:00 Test Item Value Reference Range Interpretation Comments PaO2/FiO2 (test code = ERW4OSH3) 160.40 mm/Hg BASIC METABOLIC [id number] 19:39:00 Test Item Value Reference Range Interpretation [...] 7.4 MG/DL 8.4-10.2 L CA) Comments to Spinning Mule Operator: USE BLOOD RECENTLY COLLECTED PLEASEIs this a LINE draw? NBASIC METABOLIC [id number] 19:38:00 Test Item Value Reference Range Interpretation [...] code = MG/DL 8.7-9.7 CA) Comments to Spinning Mule Operator: USE BLOOD RECENTLY COLLECTED PLEASEIs this a LINE draw? NBASIC METABOLIC [id number] 19:36:00 Test Item Value Reference Range Interpretation [...] code = CA) MG/DL 8.7-9.7 Comments to Spinning Mule Operator: USE BLOOD RECENTLY COLLECTED PLEASEIs this a LINE draw? NPROTHROMBIN [id number] 19:22:00 Test Item Value Reference Range Interpretation [...] eric embolism. 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: USE BLOOD RECENTLY COLLECTED PLEASE PELASEPTT [id number] 19:22:00 Test Item Value Reference Range Interpretation Comments PTT ACTIVATED (test code = APTT) 28.4 SECONDS 25.1-36.5 N Comments to Spinning Mule Operator: USE BLOOD RECENTLY COLLECTED PLEASE PELASEHGB [id number] 18:56:00 Test Item Value Reference Range Interpretation Comments HEMOGLOBIN (test code = HGB) 8.8 G/DL 11.2-14.9 L HEMATOCRIT (test code = HCT) 27.5 % 33.2-43.5 L GLUCOSE BEDSIDE [id number] 17:38:00 Test Item Value Reference Range Interpretation Comments GLUCOSE BEDSIDE TESTING (test code = 86 MG/DL 60-99 N GLUBED) HGB [id number] 14:37:00 Test Item Value Reference Range Interpretation Comments HEMOGLOBIN (test code = HGB) 9.3 G/DL 11.2-14.9 L HEMATOCRIT (test code = HCT) 29.2 % 33.2-43.5 L GLUCOSE BEDSIDE [id number] 12:04:00 Test Item Value Reference Range Interpretation Comments GLUCOSE BEDSIDE TESTING (test code = 88 MG/DL 60-99 N GLUBED) COMPREHENSIVE METABOLIC [id number] 07:26:00 Test Item Value Reference Range Interpretation [...] N (test code = ALKP) COMPREHENSIVE METABOLIC [id number] 07:25:00 Test Item Value Reference Range Interpretation [...] N (test code = ALKP) COMPREHENSIVE METABOLIC [id number] 07:23:00 Test Item Value Reference Range Interpretation [...] code = UNITS/L 38-126 ALKP) COMPREHENSIVE METABOLIC [id number] 07:22:00 Test Item Value Reference Range Interpretation [...] code = UNITS/L 38-126 ALKP) GLUCOSE BEDSIDE [id number] 07:16:00 Test Item Value Reference Range Interpretation Comments GLUCOSE BEDSIDE TESTING (test code = 96 MG/DL 60-99 N GLUBED) PROTHROMBIN [id number] 07:04:00 Test Item Value Reference Range Interpretation [...] syste eric embolism. 3.0 - 4.5 PTT [id number] 07:04:00 Test Item Value Reference Range Interpretation Comments PTT ACTIVATED (test code = APTT) 30.5 SECONDS 25.1-36.5 N CBC W/AUTO [id number] 06:46:00 Test Item Value Reference Range Interpretation [...] 0.00 K/mm3 0.0-0.1 N NRBC#) GLUCOSE BEDSIDE [id number] 00:11:00 Test Item Value Reference Range Interpretation Comments GLUCOSE BEDSIDE TESTING (test code = 98 MG/DL 60-99 N GLUBED) PROTHROMBIN [id number] 23:41:00 Test Item Value Reference Range Interpretation [...] syste eric embolism. 3.0 - 4.5 PTT [id number] 23:41:00 Test Item Value Reference Range Interpretation Comments PTT ACTIVATED (test code = APTT) 25.2 SECONDS 25.1-36.5 N BASIC METABOLIC [id number] 23:39:00 Test Item Value Reference Range Interpretation [...] 7.4 MG/DL 8.4-10.2 L CA) BASIC METABOLIC [id number] 23:36:00 Test Item Value Reference Range Interpretation [...] code = CA) MG/DL 8.7-9.7 CBC W/AUTO [id number] 23:29:00 Test Item Value Reference Range Interpretation [...] 0.00 K/mm3 0.0-0.1 N NRBC#) GLUCOSE BEDSIDE [id number] 20:24:00 Test Item Value Reference Range Interpretation Comments GLUCOSE BEDSIDE TESTING (test code 106 MG/DL 60-99 H = GLUBED) - XR CHEST [id number] 19:08:00 [facility] : 1940 Sex: F Patient Name: JORGE A HORTA Unit No: [id number] EXAMS: CPT CODE: [id number] XR CHEST 1V 13405 REASON FOR EXAM: Coronary artery disease. COMPARISON: [...] Diana Quintana (RT) Transcrpt Date/Tm/Trnsp: 12/21/2019 (1907) AuraRCM1 Orig Print D/T: S: 12/21/2019 (1911) [facility] NAME: JORGE A HORTA [address] PHYS: [place] [address] : 1940 AGE: 79 SEX: F LOC: Z.SI06 A PHONE #: [phone] EXAM DATE: 12/21/2019 STATUS: ADM IN FAX #: [phone] RADIOLOGY NO: PAGE 1 Signed ReportGLUCOSE BEDSIDE [id number] 12:32:00 Test Item Value Reference Range Interpretation Comments GLUCOSE BEDSIDE TESTING (test code 130 MG/DL 60-99 H = GLUBED) GLUCOSE BEDSIDE [id number] 09:19:00 Test Item Value Reference Range Interpretation Comments GLUCOSE BEDSIDE TESTING (test code 143 MG/DL 60-99 H = GLUBED) COMPREHENSIVE METABOLIC [id number] 07:06:00 Test Item Value Reference Range Interpretation [...] H (test code = ALKP) COMPREHENSIVE METABOLIC [id number] 06:24:00 Test Item Value Reference Range Interpretation [...] 38-126 (test code = ALKP) COMPREHENSIVE METABOLIC [id number] 06:22:00 Test Item Value Reference Range Interpretation [...] (test code = UNITS/L 38-126 ALKP) PROTHROMBIN [id number] 06:21:00 Test Item Value Reference Range Interpretation [...] eric embolism. 3.0 - 4.5 COMPREHENSIVE METABOLIC [id number] 06:21:00 Test Item Value Reference Range Interpretation [...] code = UNITS/L 38-126 ALKP) CBC W/AUTO [id number] 06:11:00 Test Item Value Reference Range Interpretation [...] 0.00 K/mm3 0.0-0.1 N NRBC#) GLUCOSE BEDSIDE [id number] 21:01:00 Test Item Value Reference Range Interpretation Comments GLUCOSE BEDSIDE TESTING (test code 127 MG/DL 60-99 H = GLUBED) GLUCOSE BEDSIDE [id number] 16:02:00 Test Item Value Reference Range Interpretation Comments GLUCOSE BEDSIDE TESTING (test code 118 MG/DL 60-99 H = GLUBED) - NM ACUTE GI BLOOD [id number] 15:54:00 [facility] : 1940 Sex: F Patient Name: JORGE A HORTA Unit No: [id number] EXAMS: CPT CODE: [id number] NM ACUTE GI BLOOD LOSS 84882 B2 EXAM: - NM ACUTE GI BLOOD [...] Son MD; Dr. Jason Wilder Technologist:José Miguel Lovell RT(N) Transcrpt Date/Tm/Trnsp: 12/20/2019 (1554) t.[email or web address] Orig Print D/T: S: 12/20/2019 (4195) [facility] NAME: CHRISTINA HORTANCA [address] PHYS: [place] [address] : 1940 AGE: 79 SEX: F LOC: Z.SI06 A PHONE #: [phone] EXAM DATE: 12/20/2019 STATUS: ADM IN FAX #: [phone] RADIOLOGY NO: PAGE 1 Signed ReportGLUCOSE BEDSIDE TESTING 2019-12-20 11:29:00 Test Item Value Reference Range Interpretation Comments GLUCOSE BEDSIDE TESTING (test code 148 MG/DL 60-99 H = GLUBED) GLUCOSE BEDSIDE [id number] 09:20:00 Test Item Value Reference Range Interpretation Comments GLUCOSE BEDSIDE TESTING (test code 152 MG/DL 60-99 H = GLUBED) BASIC METABOLIC [id number] 06:04:00 Test Item Value Reference Range Interpretation [...] 7.2 MG/DL 8.4-10.2 L CA) BASIC METABOLIC [id number] 06:03:00 Test Item Value Reference Range Interpretation [...] code = MG/DL 8.7-9.7 CA) BASIC METABOLIC [id number] 06:01:00 Test Item Value Reference Range Interpretation [...] code = CA) MG/DL 8.7-9.7 BASIC METABOLIC [id number] 06:00:00 Test Item Value Reference Range Interpretation [...] (test code = CA) MG/DL 8.7-9.7 PROTHROMBIN [id number] 06:00:00 Test Item Value Reference Range Interpretation [...] eric embolism. 3.0 - 4.5 CBC W/AUTO [id number] 05:53:00 Test Item Value Reference Range Interpretation [...] 0.00 K/mm3 0.0-0.1 N NRBC#) GLUCOSE BEDSIDE [id number] 20:57:00 Test Item Value Reference Range Interpretation Comments GLUCOSE BEDSIDE TESTING (test code 138 MG/DL 60-99 H = GLUBED) PROTHROMBIN [id number] 19:46:00 Test Item Value Reference Range Interpretation [...] NOTIFIED PATIENT CARE STAFF: MACK 12/19/19 AT 183 BY Kristen Henry AnPTT [id number] 19:46:00 Test Item Value Reference Range Interpretation Comments PTT ACTIVATED (test code = APTT) 31.3 SECONDS 25.1-36.5 N UNABLE TO DRAW BLOOD, REASON: HARDSTICK NOTIFIED PATIENT CARE STAFF: MACK 12/19/19 AT 183 BY Kristen Henry AnHGB [id number] 19:36:00 Test Item Value Reference Range Interpretation Comments HEMOGLOBIN (test code = HGB) 7.4 G/DL 11.2-14.9 L HEMATOCRIT (test code = HCT) 23.6 % 33.2-43.5 L Is this a LINE draw? NUNABLE TO DRAW BLOOD, REASON: HARDSTICKNOTIFIED PATIENT CARE STAFF: MACK 12/19/19 AT 183 BY Kristen Henry AnGLUCOSE BEDSIDE [id number] 17:14:00 Test Item Value Reference Range Interpretation Comments GLUCOSE BEDSIDE TESTING (test code 127 MG/DL 60-99 H = GLUBED) GLUCOSE BEDSIDE [id number] 11:41:00 Test Item Value Reference Range Interpretation Comments GLUCOSE BEDSIDE TESTING (test code 125 MG/DL 60-99 H = GLUBED) BASIC METABOLIC [id number] 09:20:00 Test Item Value Reference Range Interpretation [...] code = 7.5 MG/DL 8.4-10.2 L CA) CBNBASIC METABOLIC [id number] 09:15:00 Test Item Value Reference Range Interpretation [...] CALCIUM (test code = MG/DL 8.7-9.7 CA) CBNBASIC METABOLIC [id number] 09:13:00 Test Item Value Reference Range Interpretation [...] CALCIUM (test code = CA) MG/DL 8.7-9.7 CBNBASIC METABOLIC [id number] 09:12:00 Test Item Value Reference Range Interpretation [...] (test code = CA) MG/DL 8.7-9.7 CBNPROTHROMBIN [id number] 09:09:00 Test Item Value Reference Range Interpretation [...] eric embolism. 3.0 - 4.5 CBNComments to Spinning Mule Operator: WITH AM LABSCBC W/AUTO [id number] 08:57:00 Test Item Value Reference Range Interpretation [...] 0.00 K/mm3 0.0-0.1 N NRBC#) CBNGLUCOSE BEDSIDE [id number] 07:42:00 Test Item Value Reference Range Interpretation Comments GLUCOSE BEDSIDE TESTING (test code 122 MG/DL 60-99 H = GLUBED) GLUCOSE BEDSIDE [id number] 21:25:00 Test Item Value Reference Range Interpretation Comments GLUCOSE BEDSIDE TESTING (test code 115 MG/DL 60-99 H = GLUBED) GLUCOSE BEDSIDE [id number] 17:33:00 Test Item Value Reference Range Interpretation Comments GLUCOSE BEDSIDE TESTING (test code 104 MG/DL 60-99 H = GLUBED) C REACTIVE [id number] 15:42:00 Test Item Value Reference Range Interpretation Comments C REACTIVE PROTEIN (test code = 25.20 MG/DL 0.00-9.99 H CRP) - XR SMALL BOWEL/[id number] 12:46:00 [facility] : 1940 Sex: F Patient Name: JORGE A HORTA Unit No: [id number] EXAMS: CPT CODE: [id number] XR SMALL BOWEL/ENTERO 96730 B2 EXAM: Small bowel series INDICATION: Prolonged [...] Gross MD CC: Tevin Samuels; Ramu Sutherland MD; Georgina Smith MD Technologist: Cheyanne Hernández, BSRS, RT(R) Transcrpt Date/Tm/Trnsp: 12/18/2019 (1410) AuraVB7 Orig Print D/T: S: 12/18/2019 (0489) [facility] NAME: JORGE A HORTA [address] PHYS: JOSE.02 - [place] [address] : 1940 AGE: 79 SEX: F : Z.SI06 A PHONE #: [phone] EXAM DATE: 12/18/2019 STATUS: ADM IN FAX #: [phone] RADIOLOGY NO: PAGE 1 Signed ReportGLUCOSE BEDSIDE [id number] 12:07:00 Test Item Value Reference Range Interpretation Comments GLUCOSE BEDSIDE TESTING (test code 101 MG/DL 60-99 H = GLUBED) SED [id number] 09:36:00 Test Item Value Reference Range Interpretation Comments SED RATE (test code = SEDW) 53 MM/HR 0-20 H GLUCOSE BEDSIDE [id number] 09:03:00 Test Item Value Reference Range Interpretation Comments GLUCOSE BEDSIDE TESTING (test code 113 MG/DL 60-99 H = GLUBED) BASIC METABOLIC [id number] 06:06:00 Test Item Value Reference Range Interpretation [...] 7.3 MG/DL 8.4-10.2 L CA) BASIC METABOLIC [id number] 06:00:00 Test Item Value Reference Range Interpretation [...] code = MG/DL 8.7-9.7 CA) BASIC METABOLIC [id number] 05:57:00 Test Item Value Reference Range Interpretation [...] (test code = CA) MG/DL 8.7-9.7 PROTHROMBIN [id number] 05:38:00 Test Item Value Reference Range Interpretation [...] eric embolism. 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: WITH AM LABSCBC W/AUTO [id number] 05:29:00 Test Item Value Reference Range Interpretation [...] 0.00 K/mm3 0.0-0.1 N NRBC#) GLUCOSE BEDSIDE [id number] 20:19:00 Test Item Value Reference Range Interpretation Comments GLUCOSE BEDSIDE TESTING (test code 212 MG/DL 60-99 H = GLUBED) GLUCOSE BEDSIDE [id number] 17:34:00 Test Item Value Reference Range Interpretation Comments GLUCOSE BEDSIDE TESTING (test code 217 MG/DL 60-99 H = GLUBED) GLUCOSE BEDSIDE [id number] 13:00:00 Test Item Value Reference Range Interpretation Comments GLUCOSE BEDSIDE TESTING (test code 207 MG/DL 60-99 H = GLUBED) BASIC METABOLIC [id number] 05:59:00 Test Item Value Reference Range Interpretation [...] 7.1 MG/DL 8.4-10.2 L CA) BASIC METABOLIC [id number] 05:51:00 Test Item Value Reference Range Interpretation [...] code = MG/DL 8.7-9.7 CA) BASIC METABOLIC [id number] 05:49:00 Test Item Value Reference Range Interpretation [...] (test code = CA) MG/DL 8.7-9.7 PROTHROMBIN [id number] 05:34:00 Test Item Value Reference Range Interpretation [...] eric embolism. 3.0 - 4.5 CBC W/AUTO [id number] 05:16:00 Test Item Value Reference Range Interpretation [...] = 0.00 K/mm3 0.0-0.1 N NRBC#) PROTHROMBIN [id number] 06:34:00 Test Item Value Reference Range Interpretation [...] eric embolism. 3.0 - 4.5 BASIC METABOLIC [id number] 06:25:00 Test Item Value Reference Range Interpretation [...] 7.3 MG/DL 8.4-10.2 L CA) BASIC METABOLIC [id number] 06:22:00 Test Item Value Reference Range Interpretation [...] (test code = CA) MG/DL 8.7-9.7 LACTIC [id number] 06:19:00 Test Item Value Reference Range Interpretation Comments LACTIC ACID (test code = LACT) 0.8 MMOL/L 0.7-2.1 N CBC W/AUTO [id number] 06:02:00 Test Item Value Reference Range Interpretation [...] 0.00 K/mm3 0.0-0.1 N NRBC#) GLUCOSE BEDSIDE [id number] 10:01:00 Test Item Value Reference Range Interpretation Comments GLUCOSE BEDSIDE TESTING (test code = 96 MG/DL 60-99 N GLUBED) GLUCOSE BEDSIDE [id number] 09:16:00 Test Item Value Reference Range Interpretation Comments GLUCOSE BEDSIDE TESTING (test code = 58 MG/DL 60-99 L GLUBED) BASIC METABOLIC [id number] 06:07:00 Test Item Value Reference Range Interpretation [...] 74-106 L CALLED TO LETA Clemente & PAMELLA) READBACK ON 07/28 AT 0606 Clint Jeronimo BLOOD UREA NITROGEN 36 MG/DL 7-17 H (test code = BUN) GLOMERULAR FILTRATION 60 Report ing units: RATE (test code = GFR) ml/mi n/1.73 m2 (Modified MDRD Formula)Referen ce Range: > or = 6 0 ml/min/1.73 m2 CREATININE (test code 0.90 MG/DL 0.52-1.04 N = CREAT) CALCIUM (test code = 7.4 MG/DL 8.4-10.2 L CA) PROTHROMBIN [id number] 06:06:00 Test Item Value Reference Range Interpretation [...] eric embolism. 3.0 - 4.5 BASIC METABOLIC [id number] 06:01:00 Test Item Value Reference Range Interpretation [...] code = MG/DL 8.7-9.7 CA) BASIC METABOLIC [id number] 05:59:00 Test Item Value Reference Range Interpretation [...] code = CA) MG/DL 8.7-9.7 BASIC METABOLIC [id number] 05:58:00 Test Item Value Reference Range Interpretation [...] code = CA) MG/DL 8.7-9.7 CBC W/AUTO [id number] 05:51:00 Test Item Value Reference Range Interpretation [...] 0.00 K/mm3 0.0-0.1 N NRBC#) COMPREHENSIVE METABOLIC [id number] 06:04:00 Test Item Value Reference Range Interpretation [...] N (test code = ALKP) COMPREHENSIVE METABOLIC [id number] 05:59:00 Test Item Value Reference Range Interpretation [...] code = UNITS/L 38-126 ALKP) CBC W/AUTO [id number] 05:43:00 Test Item Value Reference Range Interpretation [...] code = 0.02 K/mm3 0.0-0.1 N NRBC#) [id number] 23:35:00 Test Item Value Reference Range Interpretation Comments HEMOGLOBIN (test code = HGB) 9.7 G/DL 11.2-14.9 L COMPREHENSIVE METABOLIC [id number] 20:53:00 Test Item Value Reference Range Interpretation [...] NICK 12/13/19 AT 1741 BY Kristen Henry NO GREEN TOP WERE SENT AT 18:10COMPREHENSIVE METABOLIC [id number] 20:50:00 Test Item Value Reference Range Interpretation [...] DRAW BLOOD, REASON: CBNNOTIFIED PATIENT CARE STAFF: [facility] 12/13/19 AT 1741 BY Kristen Henry NO GREEN TOP WERE SENT AT 18:10COMPREHENSIVE METABOLIC [id number] 20:48:00 Test Item Value Reference Range Interpretation [...] DRAW BLOOD, REASON: CBNNOTIFIED PATIENT CARE STAFF: [facility] 12/13/19 AT 1741 BY Kristen Henry NO GREEN TOP WERE SENT AT 18:10COMPREHENSIVE METABOLIC [id number] 20:47:00 Test Item Value Reference Range Interpretation [...] NICK 12/13/19 AT 1741 BY Kristen Henry NO GREEN TOP WERE SENT AT 18:10CBC W/AUTO [...] STAFF: [facility] 12/13/19 AT 1742 BY Kristen Henry An- XR ABDOMEN 1 [id number] 18:16:00 [facility] 1940 Sex: F Patient Name: JORGE A HORTA Unit No: [id number] EXAMS: CPT CODE: [id number] XR ABDOMEN 1 V [id number] Dictation location: H37. ABDOMEN, 1 VIEW HISTORY:GI Bleed FINDINGS: Since 12/12/19 there is continued distended organized loops of small bowel. Air is seen in the colon. IMPRESSION: Ileus versus partial small bowel obstruction. at 1816 Reported and signed by: Ann-Marie Lombardo MD CC: Tevin Samuels; Ramu Sutherland MD; Raji Jordan MD Technologist: Carolynn Rosario RT(R) Transcrpt Date/Tm/Trnsp: 12/13/2019 (1815) [id number] Orig Print D/T: S: 12/13/2019 (1819) [facility] NAME: JORGE A HORTA [id number] PHYS: [id number] - [place] [address] : 1940 AGE: 79 SEX: F LOC: [id number].[id number] A PHONE #: [phone] EXAM DATE: 12/13/2019 STATUS: ADM IN FAX #: [phone] RADIOLOGY NO: PAGE 1 Signed ReportLACTIC [id number] 10:38:00 Test Item Value Reference Range Interpretation Comments LACTIC ACID (test code = LACT) 1.4 MMOL/L 0.7-2.1 N PROTHROMBIN [id number] 06:13:00 Test Item Value Reference Range Interpretation [...] eric embolism. 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: WITH AM LABSCBC W/AUTO [id number] 06:07:00 Test Item Value Reference Range Interpretation [...] = 0.00 K/mm3 0.0-0.1 N NRBC#) DIFFERENTIAL [id number] 06:07:00 Test Item Value Reference Range Interpretation Comments RBC MORPHOLOGY REQUIRED (test code = RBCM) PLATELET ESTIMATE (test code = PLTEST) ADEQUATE PLATELET MORPHOLOGY (test code = NORMAL PLTMORPH) CBC W/AUTO [id number] 06:07:00 Test Item Value Reference Range Interpretation [...] = 0.00 K/mm3 0.0-0.1 N NRBC#) DIFFERENTIAL [id number] 06:07:00 Test Item Value Reference Range Interpretation Comments RBC MORPHOLOGY REQUIRED (test code = RBCM) PLATELET ESTIMATE (test code = PLTEST) ADEQUATE PLATELET MORPHOLOGY (test code = NORMAL PLTMORPH) - XR ABDOMEN 1 [id number] 11:55:00 [facility] 1940 Sex: F Patient Name: JORGE A HORTA Unit No: [id number] EXAMS: CPT CODE: [id number] XR ABDOMEN 1 V 84304 EXAMINATION: - XR ABDOMEN 1 V. LOCATION: [...] Ramu Sutherland MD; Rashid Son MD Technologist: ANKUR Jalloh, RT(R) Transcrpt Date/Tm/Trnsp: 12/12/2019 (1998) t.SDR.PR7 Orig Print D/T: S: (5030) [facility] NAME: JORGE A HORTA [address] PHYS: Gail Garcia MD [address] [place] [address] : 1940 AGE: 79 SEX: F [facility] NO: [id number] LOC: Z.SI06 A PHONE #: [phone] EXAM DATE: 12/12/2019 STATUS: ADM IN FAX #: [phone] RADIOLOGY NO: PAGE 1 Signed Report PROTHROMBIN [id number] 09:42:00 Test Item Value Reference Range Interpretation [...] eric embolism. 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 MET[facility] [id number] 05:56:00 Test Item Value Reference Range Interpretation [...] 8.0 MG/DL 8.4-10.2 L CA) BASIC METABOLIC [id number] 05:55:00 Test Item Value Reference Range Interpretation [...] code = MG/DL 8.7-9.7 CA) BASIC METABOLIC [id number] 05:53:00 Test Item Value Reference Range Interpretation [...] (test code = CA) MG/DL 8.7-9.7 PROTHROMBIN [id number] 05:23:00 Test Item Value Reference Range Interpretation [...] eric embolism. 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: .CBC W/AUTO [id number] 05:15:00 Test Item Value Reference Range Interpretation [...] 0.00 K/mm3 0.0-0.1 N NRBC#) BASIC METABOLIC [id number] 11:19:00 Test Item Value Reference Range Interpretation [...] 7.6 MG/DL 8.4-10.2 L CA) BASIC METABOLIC [id number] 11:18:00 Test Item Value Reference Range Interpretation [...] code = MG/DL 8.7-9.7 CA) BASIC METABOLIC [id number] 11:15:00 Test Item Value Reference Range Interpretation [...] code = CA) MG/DL 8.7-9.7 CBC W/AUTO [id number] 11:05:00 Test Item Value Reference Range Interpretation [...] = 0.00 K/mm3 0.0-0.1 N NRBC#) PROTHROMBIN [id number] 04:49:00 Test Item Value Reference Range Interpretation [...] eric embolism. 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: .URINALYSIS [id number] 17:50:00 Test Item Value Reference Range Interpretation [...] code = UACULT) SOURCE OF URINE: VOIDEDUA [id number] 17:50:00 Test Item Value Reference Range Interpretation Comments UA RBC (test code = RBCU) 0-3 RBC/HPF 0-3 UA WBC (test code = XWBCU) 3-5 WBC/HPF 0-5 UA EPITHELIAL CELLS (test code FEW EPI/HPF FEW = EPIU) UA BACTERIA (test code = MODERATE NONE A XBACU) UA YEAST (test code = YEASTU) MODERATE #/HPF NONE A SOURCE OF URINE: VOIDEDURINALYSIS [id number] 17:35:00 Test Item Value Reference Range Interpretation [...] Chk = UACULT) SOURCE OF URINE: VOIDEDUA [id number] 17:35:00 Test Item Value Reference Range Interpretation Comments UA RBC (test code = RBCU) RBC/HPF 0-3 UA WBC (test code = XWBCU) WBC/HPF 0-5 UA EPITHELIAL CELLS (test code = EPI/HPF FEW EPIU) UA BACTERIA (test code = XBACU) NONE SOURCE OF URINE: VOIDEDURINALYSIS [id number] 17:35:00 Test Item Value Reference Range Interpretation [...] Chk = UACULT) SOURCE OF URINE: VOIDEDUA [id number] 17:35:00 Test Item Value Reference Range Interpretation Comments UA RBC (test code = RBCU) RBC/HPF 0-3 UA WBC (test code = XWBCU) WBC/HPF 0-5 UA EPITHELIAL CELLS (test code = EPI/HPF FEW EPIU) UA BACTERIA (test code = XBACU) NONE SOURCE OF URINE: VOIDEDCBC W/AUTO [id number] 05:51:00 Test Item Value Reference Range Interpretation [...] 0-0 H code = NRBC) BASIC METABOLIC [id number] 05:30:00 Test Item Value Reference Range Interpretation [...] code = 7.6 MG/DL 8.4-10.2 L CA) [id number] 05:30:00 Test Item Value Reference Range Interpretation Comments MAGNESIUM (test code = MAG) 2.3 MG/DL 1.6-2.3 N BASIC METABOLIC [id number] 05:24:00 Test Item Value Reference Range Interpretation [...] CALCIUM (test code = MG/DL 8.7-9.7 CA) [id number] 05:24:00 Test Item Value Reference Range Interpretation Comments MAGNESIUM (test code = MAG) MG/DL 1.6-2.3 BASIC METABOLIC [id number] 05:22:00 Test Item Value Reference Range Interpretation [...] CALCIUM (test code = CA) MG/DL 8.7-9.7 [id number] 05:22:00 Test Item Value Reference Range Interpretation Comments MAGNESIUM (test code = MAG) MG/DL 1.6-2.3 BASIC METABOLIC [id number] 05:21:00 Test Item Value Reference Range Interpretation [...] CALCIUM (test code = CA) MG/DL 8.7-9.7 [id number] 05:21:00 Test Item Value Reference Range Interpretation Comments MAGNESIUM (test code = MAG) MG/DL 1.6-2.3 PROTHROMBIN [id number] 05:19:00 Test Item Value Reference Range Interpretation [...] eric embolism. 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: .CBC W/AUTO [id number] 05:10:00 Test Item Value Reference Range Interpretation [...] K/mm3 0.0-0.1 N NRBC#) - XR CHEST [id number] 14:16:00 [facility] : 1940 Sex: F Patient Name: JORGE A HORTA Unit No: [id number] EXAMS: CPT CODE: [id number] XR CHEST 1V 80580 CHEST 1 VIEW CLINICAL INFORMATION: atelectasis COMPARISON: [...] Jordan MD; Rashid Son MD Technologist: Domi Cunningham, RT(R) Transcrpt Date/Tm/Trnsp: 12/08/2019 (1416) AuraAM18 Orig Print D/T: S: 12/08/2019 (1420) [facility] NAME: JORGE A HORTA [address] PHYS: MINMO99 - [place] [address] : 1940 AGE: 79 SEX: F LOC: [id number] Monty PHONE #: [phone] EXAM DATE: 12/08/2019 STATUS: ADM IN FAX #: [phone] RADIOLOGY NO: PAGE 1 Signed ReportBASIC METABOLIC [id number] 10:18:00 Test Item Value Reference Range Interpretation [...] 7.6 MG/DL 8.4-10.2 L CA) BASIC METABOLIC [id number] 10:11:00 Test Item Value Reference Range Interpretation [...] (test code = MG/DL 8.7-9.7 CA) PROTHROMBIN [id number] 09:52:00 Test Item Value Reference Range Interpretation [...] eric embolism. 3.0 - 4.5 CBC W/AUTO [id number] 09:42:00 Test Item Value Reference Range Interpretation [...] = 0.05 K/mm3 0.0-0.1 N NRBC#) LACTIC [id number] 11:31:00 Test Item Value Reference Range Interpretation Comments LACTIC ACID (test code = LACT) 1.8 MMOL/L 0.7-2.1 N BASIC METABOLIC [id number] 05:33:00 Test Item Value Reference Range Interpretation [...] 7.7 MG/DL 8.4-10.2 L CA) BASIC METABOLIC [id number] 05:12:00 Test Item Value Reference Range Interpretation [...] code = MG/DL 8.7-9.7 CA) BASIC METABOLIC [id number] 05:09:00 Test Item Value Reference Range Interpretation [...] (test code = CA) MG/DL 8.7-9.7 PROTHROMBIN [id number] 04:51:00 Test Item Value Reference Range Interpretation Comments PROTHROMBIN TIME 47.9 SECONDS 9.4-12.5 HH CALLED TO Jose ruelas M PATIENT (test code = & READ BACK ON PTP) 12/07/19 AT 044 9 BY James Bean INTERNATIONAL NORMAL 4.3 HH CALLED TO Mary DODGE (test code = Matuto & READBACK INR) [...] eric embolism. 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: .CBC W/AUTO [id number] 04:36:00 Test Item Value Reference Range Interpretation [...] = 0.02 K/mm3 0.0-0.1 N NRBC#) LACTIC [id number] 11:55:00 Test Item Value Reference Range Interpretation Comments LACTIC ACID (test code = LACT) 1.5 MMOL/L 0.7-2.1 N BASIC METABOLIC [id number] 10:02:00 Test Item Value Reference Range Interpretation [...] 7.6 MG/DL 8.4-10.2 L CA) BASIC METABOLIC [id number] 10:01:00 Test Item Value Reference Range Interpretation [...] code = MG/DL 8.7-9.7 CA) BASIC METABOLIC [id number] 10:00:00 Test Item Value Reference Range Interpretation [...] code = CA) MG/DL 8.7-9.7 BASIC METABOLIC [id number] 08:40:00 Test Item Value Reference Range Interpretation [...] 0732 BY DALJIT: HEMOLYSISNOTIFIED PATIENT CARE STAFF: VERONICALACTIC [id number] 08:38:00 Test Item Value Reference Range Interpretation Comments LACTIC ACID (test code = LACT) 2.3 MMOL/L 0.7-2.1 H UNABLE TO DRAW BLOOD, REASON: CBNNOTIFIED PATIENT CARE STAFF: EDWARD 12/05/19 AT 2155 BY Kristen Henry RN.BASIC METABOLIC [id number] 08:35:00 Test Item Value Reference Range Interpretation [...] MG/DL 8.7-9.7 RECOLLECTION NEEDED ON 12/06/19 AT 07 BY DALJIT: HEMOLYSISNOTIFIED PATIENT CARE STAFF: HELGANICAPROTHROMBIN [id number] 08:21:00 Test Item Value Reference Range Interpretation [...] eric embolism. 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: .CBC W/AUTO [id number] 06:49:00 Test Item Value Reference Range Interpretation [...] = 0.00 K/mm3 0.0-0.1 N NRBC#) LACTIC [id number] 19:25:00 Test Item Value Reference Range Interpretation Comments LACTIC ACID (test code = LACT) 2.2 MMOL/L 0.7-2.1 H LACTIC [id number] 14:59:00 Test Item Value Reference Range Interpretation Comments LACTIC ACID (test code = LACT) 2.5 MMOL/L 0.7-2.1 H LACTIC [id number] 12:27:00 Test Item Value Reference Range Interpretation Comments LACTIC ACID (test code = LACT) 2.8 MMOL/L 0.7-2.1 H PROTHROMBIN [id number] 09:37:00 Test Item Value Reference Range Interpretation [...] Zachery Kang IS A CBN DRAWComments to Spinning Mule Operator: . BASIC METABOLIC [id number] 09:29:00 Test Item Value Reference Range Interpretation [...] PATIENT CARE STAFF: PIERRE 12/05/19 AT 0633 BYZachery Kang IS A CBN DRAWBASIC METABOLIC [id number] 08:58:00 Test Item Value Reference Range Interpretation [...] PATIENT CARE STAFF: PIERRE 12/05/19 [facility]SaraT IS A CBN DRAWCBC W/AUTO [id number] 08:51:00 Test Item Value Reference Range Interpretation [...] IS A CBN DRAWNOTIFIED PATIENT CARE STAFF: CBON 12/05/19 AT 0630 [facility],LavadaPT IS A CBN DRAW- US ABDOMEN [id number] 18:50:00[facility] : 1940 Sex: F Patient Name: JORGE A HORTA Unit No: [id number] EXAMS: CPT CODE: [id number] US ABDOMEN COMPLETE 51349 EXAM: Abdominal ultrasound complete Location: H24 HISTORY: [...] Reported and signed by: Olayinka Weiner M.D. [facility] NAME: JORGE A HORTA [address] PHYS: [place] [address] : 1940 AGE: 79 SEX: F LOC: Z.SI06 A PHONE #: [phone] EXAM DATE: 12/04/2019 STATUS: ADM IN FAX #: [phone] RADIOLOGY NO: PAGE 1 Signed Report (CONTINUED) Patient Name: JORGE A HORTA Unit No: [id number] EXAMS: CPT CODE: [id number] US ABDOMEN COMPLETE 49789 <Continued> CC: Tevin Sutherland MD Technologist: Citlaly Jones RDMS() Transcrpt Date/Tm/Trnsp: 12/04/2019 (1849) t.SDR.AL7 Orig Print D/T: S: 12/04/2019 (1853) [facility] NAME: JORGE A HORTA [address] PHYS: Donna Pino MD [place] [id number] : 1940 AGE: 79 SEX: F LOC: Z.SI06 A PHONE #: [phone] EXAM DATE: 12/04/2019 STATUS: ADM IN FAX #: [phone] RADIOLOGY NO: PAGE 2 Signed Report- CT ABD PELVIS [id number] 18:09:00 [facility] : 1940 Sex: F Patient Name: JORGE A HORTA Unit No: [id number] EXAMS: CPT CODE: [id number] CT ABD PELVIS W/CONT 98957 EXAM: - CT ABD PELVIS W/CONT Location: [...] within the abdominal aorta. No aneurysmal dilatation. [facility] NAME: EFREN HORTAA[address] PHYS: [place] [address] : 1940 AGE: 79 SEX: F LOC: Z.SI06 A PHONE #: [phone] EXAM DATE: 12/04/2019 STATUS: ADM IN FAX #: [phone] RAD #: D/C DT PAGE 1 Signed Report (CONTINUED) Patient Name: JORGE A HORTA Unit No: [id number] EXAMS: CPT CODE: [id number] CT ABD PELVIS W/CONT 42184 <Continued> Lymph nodes:No adenopathy. Peritoneum/retroperitoneum: There is [...] Ramu Sutherland MD Technologist: Deonte Plata, RT(R); Sallie CTDI: DLP: Trnscrpt: 12/04/2019 (180) AuraAL7 [facility] NAME: JORGE A HORTA [address] PHYS: [place] [address] : 1940 AGE: 79 SEX: F LOC: Z.SI06 A PHONE #: [phone] EXAM DATE: 12/04/2019 STATUS: ADM IN FAX #: [phone] RAD #: D/C DT PAGE 2 Signed Report Patient Name: JORGE A HORTA Unit No: [id number] EXAMS: CPT CODE: [id number] CT ABD PELVIS W/CONT 15854 <Continued> Orig Print D/T: S: 12/04/2019 (1811) [facility] NAME: JORGE A HORTA [address] PHYS: Donna Pino MD [place] [id number] : 1940 AGE: 79 SEX: FACCT NO: [id number] LOC: Z.SI06 A PHONE #: [phone] EXAM DATE: 12/04/2019 STATUS: ADM IN FAX #: [phone] RAD #: D/C DT PAGE 3 Signed ReportGLUCOSE BEDSIDE [id number] 17:09:00 Test Item Value Reference Range Interpretation Comments GLUCOSE BEDSIDE TESTING (test code 134 MG/DL 60-99 H = GLUBED) HEART [id number] 13:06:00 Test Item Value Reference Range Interpretation Comments HEART VALVE (test code = HEARTV) RUN DATE: 12/04/19 [facility] PAGE 1 RUN TIME: 1306 Specimen Inquiry RUN USER: INTERFACE PATIENT: JORGE A HORTA LOC: JEF U #: [id number] AGE/SX: 79/F ROOM: [facility] RE[facility]19[facility]: Tevin Samuels MD : 38 BED: A DIS: STATUS: ADM IN TLOC: SPEC #: [id number]:COCHRAN:[id number] RECD: 12/01/19 STATUS: DEVORA ALLEN #: [id number] KEENAN: 11/30/19 [facility] DR: Tevin Samuels MD ENTERED: 12/01/19 SP TYPE: HEARTV OTHR DR: Self Referred Home Bryant MD, Robert L MD Mikkilineni, Rajyalakshmi MD Pepper, Gregory S MD Sankaranarayanan, Venkataraj anORDERED: DECAL, SURG PATH LVL 4 CODES: 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 [address] Home Bryant MD R[address] [place] [address] [place] [address] [place] [address] Ramu Sutherland MD [address] [place], [place] [address] [place] [address] [facility] [address] [place], [place] [address] Taurus Dixon [address] [place] [address] CONTINUED ON NEXT PAGE RUN DATE: 12/04/19 [facility] PAGE 2 RUN TIME: 1306 Specimen Inquiry RUN USER: INTERFACE SPEC #: 20:COCHRAN:[id number] PATIENT: LANEJORGE A #[id number] (Continued) PROCEDURES: DECAL (12/01/19) SURG PATH LVL 4 (12/01/19) TISSUES: A. AORTIC VALVE, NOS - AORTIC VALVE CPT CODES CPT CODE(S): 02320 , 34965 , , , , , FINAL DIAGNOSIS [...] atypical features. /bb Signed SIGNATURE ON FILE Juan Lewis 12/04/19 1306 END OF REPORT COMPREHENSIVE METABOLIC [id number] 13:00:00 Test Item Value Reference Range Interpretation [...] 38-126 N (test code = ALKP) PROTHROMBIN [id number] 12:57:00 Test Item Value Reference Range Interpretation [...] eric embolism. 3.0 - 4.5 COMPREHENSIVE METABOLIC [id number] 12:55:00 Test Item Value Reference Range Interpretation [...] 38-126 (test code = ALKP) CBC W/AUTO [id number] 12:54:00 Test Item Value Reference Range Interpretation [...] 0.00 K/mm3 0.0-0.1 N NRBC#) COMPREHENSIVE METABOLIC [id number] 12:53:00 Test Item Value Reference Range Interpretation [...] code = UNITS/L 38-126 ALKP) GLUCOSE BEDSIDE [id number] 12:46:00 Test Item Value Reference Range Interpretation Comments GLUCOSE BEDSIDE TESTING 111 MG/DL 60-99 H Noti fied Nurse~ (test code = GLUBED) GLUCOSE BEDSIDE [id number] 10:31:00 Test Item Value Reference Range Interpretation Comments GLUCOSE BEDSIDE TESTING (test code 109 MG/DL 60-99 H = GLUBED) GLUCOSE BEDSIDE [id number] 10:31:00 Test Item Value Reference Range Interpretation Comments GLUCOSE BEDSIDE TESTING (test code 112 MG/DL 60-99 H = GLUBED) GLUCOSE BEDSIDE [id number] 10:31:00 Test Item Value Reference Range Interpretation Comments GLUCOSE BEDSIDE TESTING (test code 124 MG/DL 60-99 H = GLUBED) GLUCOSE BEDSIDE [id number] 10:30:00 Test Item Value Reference Range Interpretation Comments GLUCOSE BEDSIDE TESTING (test code 143 MG/DL 60-99 H = GLUBED) - XR CHEST [id number] 08:28:00 [facility] : 1940 Sex: F Patient Name: JORGE A HORTA Unit No: [id number] EXAMS: CPT CODE: [id number] XR CHEST 1V 52022 B2 EXAM: - XR CHEST 1V HISTORY: [...] Technologist: Yobani Elias, RT(R) Transcrpt Date/Tm/Trnsp: 12/04/2019 (08) t.CARLAR.VB7 Orig Print D/T: S: 12/04/2019 (0831) [facility] NAME: JORGE A HORTA [address] PHYS: [place] [address] : 1940 AGE: 79 SEX: F LOC: Z.SI06 A PHONE #: [phone] EXAM DATE: 12/04/2019 STATUS: ADM IN FAX #: [phone] RADIOLOGY NO: PAGE 1 Signed ReportGLUCOSE BEDSIDE [id number] 08:00:00 Test Item Value Reference Range Interpretation Comments GLUCOSE BEDSIDE TESTING (test code 167 MG/DL 60-99 H = GLUBED) GLUCOSE BEDSIDE [id number] 20:26:00 Test Item Value Reference Range Interpretation Comments GLUCOSE BEDSIDE TESTING (test code 140 MG/DL 60-99 H = GLUBED) - XR CHEST [id number] 15:49:00 [facility] : 1940 Sex: F Patient Name: JORGE A HORTA Unit No: [id number] EXAMS: CPT CODE: [id number] XR CHEST 1V 43522 EXAM: - XR CHEST 1V CLINICAL HISTORY: [...] airspace opacity or large pneumothorax. Unchanged cardiomegaly. [id number] Reported and signed by: Jim Rosales MD CC: Tevin Samuels; Ramu Sutherland MD Technologist: Zoltan Low (RT) Transcrpt Date/Tm/Trnsp: 12/03/2019 (9068) t.CARLAR.JW22 Orig Print D/T: S: 12/03/2019 (6616) [facility] NAME: JORGE A HORTA [address] PHYS: [place] [address] : 1940 AGE: 79 SEX: F LOC: Z.SI06 A PHONE #: [phone] EXAM DATE: 12/03/2019 STATUS: ADM IN FAX #: [phone] RADIOLOGY NO: PAGE 1 Signed ReportGLUCOSE BEDSIDE [id number] 11:56:00 Test Item Value Reference Range Interpretation Comments GLUCOSE BEDSIDE TESTING (test code 160 MG/DL 60-99 H = GLUBED) - XR CHEST [id number] 06:30:00 [facility] : 1940 Sex: F Patient Name: JORGE A HORTA Unit No: [id number] EXAMS: CPT CODE: [id number] XR CHEST 1V 46865 Location of dictation: B2 Portable chest one [...] Technologist: Yobani Elias, RT(R) Transcrpt Date/Tm/Trnsp: 12/03/2019 (629) t.SDR.PXC Orig Print D/T: S: 12/03/2019 (632) [facility] NAME: JORGE A HORTA [address] PHYS: [place] [address] : 1940 AGE: 79 SEX: F LOC: Z.SI06 A PHONE #: [phone] EXAM DATE: 12/03/2019 STATUS: ADM IN FAX #: [phone] RADIOLOGY NO: PAGE 1 Signed Report GLUCOSE BEDSIDE [id number] 21:37:00 Test Item Value Reference Range Interpretation Comments GLUCOSE BEDSIDE TESTING (test code 102 MG/DL 60-99 H = GLUBED) GLUCOSE BEDSIDE [id number] 17:38:00 Test Item Value Reference Range Interpretation Comments GLUCOSE BEDSIDE TESTING (test code 155 MG/DL 60-99 H = GLUBED) GLUCOSE BEDSIDE [id number] 12:02:00 Test Item Value Reference Range Interpretation Comments GLUCOSE BEDSIDE TESTING (test code 139 MG/DL 60-99 H = GLUBED) PROTHROMBIN [id number] 10:15:00 Test Item Value Reference Range Interpretation [...] CARE STAFF: ON 12/02/19 AT 0715 BY Lawrence LeggetthGLUCOSE BEDSIDE [id number] 08:05:00 Test Item Value Reference Range Interpretation Comments GLUCOSE BEDSIDE TESTING (test code 135 MG/DL 60-99 H = GLUBED) - XR CHEST [id number] 06:21:00 [facility] : 1940 Sex: F Patient Name: JORGE A HORTA Unit No: [id number] EXAMS: CPT CODE: [id number] XR CHEST 1V 02969 HISTORY: Follow-up Location: C3 COMPARISON:12/01/2019 FINDINGS: 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 Endotracheal tube and nasogastric tube have been removed. Hemphill- Laura catheter has been removed. No pneumothorax. Mild cardiomegaly persists. Perihilar and retrocardiac left basilar opacity persists. No other changes from prior study. IMPRESSION: 1. Interval extubation and interval removal of Hemphill-Laura catheter. 2. No pneumothorax. No other changes from prior study. at 0621 Reported and signed by: Donna Foy MD CC: Tevin Samuels; Ramu Sutherland MD Technologist: Yobani Elias, RT(R) Transcrpt Date/Tm/Trnsp: 12/02/2019 (06) AuraRXC2 Orig Print D/T: S: 12/02/2019(624) [facility] NAME: JORGE A HORTA [address] PHYS: [place] [address] : 1940 AGE: 79 SEX: F LOC: Z.SI06 A PHONE #: [phone] EXAM DATE: 12/02/2019 STATUS: ADM IN FAX #: [phone] RADIOLOGY NO: PAGE 1 Signed ReportGLUCOSE BEDSIDE [id number] 19:57:00 Test Item Value Reference Range Interpretation Comments GLUCOSE BEDSIDE TESTING (test code 116 MG/DL 60-99 H = GLUBED) GLUCOSE BEDSIDE [id number] 18:10:00 Test Item Value Reference Range Interpretation Comments GLUCOSE BEDSIDE TESTING (test code 128 MG/DL 60-99 H = GLUBED) GLUCOSE BEDSIDE [id number] 17:09:00 Test Item Value Reference Range Interpretation Comments GLUCOSE BEDSIDE TESTING (test code 120 MG/DL 60-99 H = GLUBED) GLUCOSE BEDSIDE [id number] 15:48:00 Test Item Value Reference Range Interpretation Comments GLUCOSE BEDSIDE TESTING (test code 122 MG/DL 60-99 H = GLUBED) GLUCOSE BEDSIDE [id number] 14:09:00 Test Item Value Reference Range Interpretation Comments GLUCOSE BEDSIDE TESTING (test code 117 MG/DL 60-99 H = GLUBED) GLUCOSE BEDSIDE [id number] 13:23:00 Test Item Value Reference Range Interpretation Comments GLUCOSE BEDSIDE TESTING (test code 112 MG/DL 60-99 H = GLUBED) GLUCOSE BEDSIDE [id number] 12:26:00 Test Item Value Reference Range Interpretation Comments GLUCOSE BEDSIDE TESTING (test code 121 MG/DL 60-99 H = GLUBED) GLUCOSE BEDSIDE [id number] 11:12:00 Test Item Value Reference Range Interpretation Comments GLUCOSE BEDSIDE TESTING (test code 133 MG/DL 60-99 H = GLUBED) GLUCOSE BEDSIDE [id number] 10:24:00 Test Item Value Reference Range Interpretation Comments GLUCOSE BEDSIDE TESTING (test code 139 MG/DL 60-99 H = GLUBED) GLUCOSE BEDSIDE [id number] 09:26:00 Test Item Value Reference Range Interpretation Comments GLUCOSE BEDSIDE TESTING (test code 139 MG/DL 60-99 H = GLUBED) GLUCOSE BEDSIDE [id number] 08:31:00 Test Item Value Reference Range Interpretation Comments GLUCOSE BEDSIDE TESTING (test code 138 MG/DL 60-99 H = GLUBED) - XR CHEST [id number] 07:58:00 [facility] 1940 Sex: F Patient Name: JORGE A HORTA Unit No: [id number] EXAMS: CPT CODE: [id number] XR CHEST 1V 83266 B2 EXAM: - XR CHEST 1V HISTORY: S/P CABG COMPARISON: 11/30/2019 FINDINGS: Endotracheal tube, nasogastric tube, Hemphill-Laura catheter and right subclavian central line in [...] Tevin Samuels; Ramu Sutherland MD Technologist: Leonie Red, RT(R) Transcrpt Date/Tm/Trnsp: 12/01/2019 (0758) [id number] Orig Print D/T: S: 12/01/2019 (0801) [facility] [id number] PHYS: [place] [address] : 1940 AGE: 79 SEX: F LOC: [id number] PHONE #: [phone] EXAM DATE: 12/01/2019 STATUS: ADM IN FAX #: [phone] RADIOLOGY NO: PAGE 1 Signed ReportGLUCOSE BEDSIDE [id number] 07:12:00 Test Item Value Reference Range Interpretation Comments GLUCOSE BEDSIDE TESTING (test code 137 MG/DL 60-99 H = GLUBED) GLUCOSE BEDSIDE [id number] 06:21:00 Test Item Value Reference Range Interpretation Comments GLUCOSE BEDSIDE TESTING (test code 141 MG/DL 60-99 H = GLUBED) GLUCOSE BEDSIDE [id number] 03:09:00 Test Item Value Reference Range Interpretation Comments GLUCOSE BEDSIDE TESTING (test code 158 MG/DL 60-99 H = GLUBED) GLUCOSE BEDSIDE [id number] 02:23:00 Test Item Value Reference Range Interpretation Comments GLUCOSE BEDSIDE TESTING (test code 149 MG/DL 60-99 H = GLUBED) GLUCOSE BEDSIDE [id number] 23:56:00 Test Item Value Reference Range Interpretation Comments GLUCOSE BEDSIDE TESTING (test code 171 MG/DL 60-99 H = GLUBED) GLUCOSE BEDSIDE [id number] 23:08:00 Test Item Value Reference Range Interpretation Comments GLUCOSE BEDSIDE TESTING (test code 163 MG/DL 60-99 H = GLUBED) GLUCOSE BEDSIDE [id number] 21:54:00 Test Item Value Reference Range Interpretation Comments GLUCOSE BEDSIDE TESTING (test code 164 MG/DL 60-99 H = GLUBED) BASIC METABOLIC [id number] 21:36:00 Test Item Value Reference Range Interpretation [...] code = 8.2 MG/DL 8.4-10.2 L CA) [id number] 21:36:00 Test Item Value Reference Range Interpretation Comments MAGNESIUM (test code = 6.7 MG/DL 1.6-2.3 BERNABE Carr& MAG) READBACK ON AT 2136 BY Dario Maria BASIC METABOLIC [id number] 21:33:00 Test Item Value Reference Range Interpretation [...] code = 8.2 MG/DL 8.4-10.2 L CA) [id number] 21:33:00 Test Item Value Reference Range Interpretation Comments MAGNESIUM (test code = MAG) MG/DL 1.6-2.3 PROTHROMBIN [id number] 21:31:00 Test Item Value Reference Range Interpretation [...] eric embolism. 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: PEDIATRIC TUBES!Comments to Spinning Mule Operator: PEDIATRIC TUBESPTT [id number] 21:31:00 Test Item Value Reference Range Interpretation Comments PTT ACTIVATED (test code = APTT) 21.8 SECONDS 25.1-36.5 L Comments to Spinning Mule Operator: PEDIATRIC TUBES!Comments to Spinning Mule Operator: PEDIATRIC TUBESBASIC METABOLIC [id number] 21:30:00 Test Item Value Reference Range Interpretation [...] CALCIUM (test code = CA) MG/DL 8.7-9.7 [id number] 21:30:00 Test Item Value Reference Range Interpretation Comments MAGNESIUM (test code = MAG) MG/DL 1.6-2.3 CBC W/AUTO [id number] 21:24:00 Test Item Value Reference Range Interpretation [...] K/mm3 0.0-0.1 N NRBC#) - XR CHEST [id number] 20:54:00 [facility] 1940 Sex: F Patient Name: JORGE A HORTA Unit No: [id number] EXAMS: CPT CODE: [id number] XR CHEST 1V 57234 EXAM: - XR CHEST 1V LOCATION: C3 HISTORY: S/P CABG COMPARISON: 11/29/2019 FINDINGS: Single view of the chest. Right subclavian catheter tip overlies the cubital junction. Hemphill-Laura catheter tip overlies main pulmonary trunk. Endotracheal [...] t.SDR.HV2 Orig Print D/T: S: 11/30/2019 (2056) [facility] NAME: JORGE A HORTA [id number] PHYS: [place] [address] : 1940 AGE: 79 SEX: F LOC: Z.SI06 A PHONE #: [phone] EXAM DATE: 11/30/2019 STATUS: ADM IN FAX #: [phone] RADIOLOGY NO: PAGE 1 Signed ReportGLUCOSE BEDSIDE [id number] 20:17:00 Test Item Value Reference Range Interpretation Comments GLUCOSE BEDSIDE TESTING (test code 206 MG/DL 60-99 H = GLUBED) BASIC METABOLIC [id number] 19:45:00 Test Item Value Reference Range Interpretation [...] 7.7 MG/DL 8.4-10.2 L CA) BASIC METABOLIC [id number] 19:42:00 Test Item Value Reference Range Interpretation [...] (test code = MG/DL 8.7-9.7 CA) PROTHROMBIN [id number] 19:42:00 Test Item Value Reference Range Interpretation [...] syste eric embolism. 3.0 - 4.5 PTT [id number] 19:42:00 Test Item Value Reference Range Interpretation Comments PTT ACTIVATED (test code = APTT) 26.3 SECONDS 25.1-36.5 N BASIC METABOLIC [id number] 19:39:00 Test Item Value Reference Range Interpretation [...] code = CA) MG/DL 8.7-9.7 BASIC METABOLIC [id number] 19:38:00 Test Item Value Reference Range Interpretation [...] code = CA) MG/DL 8.7-9.7 CBC W/AUTO [id number] 19:32:00 Test Item Value Reference Range Interpretation [...] code = 0.00 K/mm3 0.0-0.1 N NRBC#) [id number] 18:06:00 Test Item Value Reference Range Interpretation Comments POTASSIUM (test code = K) 5.9 MMOL/L 3.5-5.1 H [id number] 18:06:00 Test Item Value Reference Range Interpretation Comments GLUCOSE (test code = GLU) 146 MG/DL 74-106 H [id number] 18:03:00 Test Item Value Reference Range Interpretation Comments POTASSIUM (test code = K) 5.9 MMOL/L 3.5-5.1 H [id number] 18:03:00 Test Item Value Reference Range Interpretation Comments GLUCOSE (test code = GLU) MG/DL 74-106 [id number] 17:57:00 Test Item Value Reference Range Interpretation Comments HEMOGLOBIN (test code = HGB) 7.2 G/DL 11.2-14.9 L [id number] 17:57:00 Test Item Value Reference Range Interpretation Comments HEMATOCRIT (test code = HCT) 22.9 % 33.2-43.5 L DIFFERENTIAL [id number] 17:03:00 Test Item Value Reference Range Interpretation Comments RBC MORPHOLOGY REQUIRED (test code = NORMAL RBCM) HYPERSEGMENTED POLYS (test code = FEW NONE HYPP) PLATELET ESTIMATE (test code = ADEQUATE ADEQUATE PLTEST) PLATELET MORPHOLOGY (test code = NORMAL NORMAL PLTMORPH) [id number] 17:03:00 Test Item Value Reference Range Interpretation Comments HEMOGLOBIN (test code = 4.5 G/DL 11.2-14.9 LL CALL ED TO TIFFANY Patricia HGB) CAMPUS PRESIDENT & READBAC K ON 11/30/19 AT 162 5 BY Malachi Santamaria [id number] 17:03:00 Test Item Value Reference Range Interpretation Comments HEMATOCRIT (test code = 15.0 % 33.2-43.5 LL CALL ED TO FANCINA OR HCT) RN & READBACK O N 11/30/19 AT 162 5 BY Malachi Santamaria [id number] 16:36:00 Test Item Value Reference Range Interpretation Comments POTASSIUM (test code = K) MMOL/L 3.5-5.1 [id number] 16:36:00 Test Item Value Reference Range Interpretation Comments GLUCOSE (test code = GLU) 138 MG/DL 74-106 H [id number] 16:36:00 Test Item Value Reference Range Interpretation Comments POTASSIUM (test code = K) 5.0 MMOL/L 3.5-5.1 N [id number] 16:36:00 Test Item Value Reference Range Interpretation Comments GLUCOSE (test code = GLU) 138 MG/DL 74-106 H DIFFERENTIAL [id number] 16:28:00 Test Item Value Reference Range Interpretation Comments RBC MORPHOLOGY REQUIRED (test code = RBCM) PLATELET ESTIMATE (test code = PLTEST) ADEQUATE PLATELET MORPHOLOGY (test code = NORMAL PLTMORPH) [id number] 16:28:00 Test Item Value Reference Range Interpretation Comments HEMOGLOBIN (test code = 4.5 G/DL 11.2-14.9 LL CALL ED TO FANCINA B HGB) CAMPUS PRESIDENT & READBASelin K ON 11/30/19 AT 162 5 BY Malachi Santamaria [id number] 16:28:00 Test Item Value Reference Range Interpretation Comments HEMATOCRIT (test code = 15.0 % 33.2-43.5 LL CALL ED TO FANCINA OR HCT) RN & READBACK O N 11/30/19 AT 162 5 BY Malachi Santamaria DIFFERENTIAL [id number] 16:28:00 Test Item Value Reference Range Interpretation Comments RBC MORPHOLOGY REQUIRED (test code = RBCM) PLATELET ESTIMATE (test code = PLTEST) ADEQUATE PLATELET MORPHOLOGY (test code = NORMAL PLTMORPH) [id number] 16:28:00 Test Item Value Reference Range Interpretation Comments HEMOGLOBIN (test code = 4.5 G/DL 11.2-14.9 LL CALL ED TO FANCINA B HGB) CAMPUS PRESIDENT & READBAC K ON 11/30/19 AT 162 5 BY Malachi Santamaria [id number] 16:28:00 Test Item Value Reference Range Interpretation Comments HEMATOCRIT (test code = 15.0 % 33.2-43.5 LL CALL ED TO FANCINA OR HCT) RN & READBACK O N 11/30/19 AT 162 5 BY Malachi Santamaria BASIC METABOLIC [id number] 13:26:00 Test Item Value Reference Range Interpretation [...] CA) PLEASE CALL RESULTS TO PHONE #: [phone] [facility] METABOLIC [id number] 13:25:00 Test Item Value Reference Range Interpretation [...] CA) PLEASE CALL RESULTS TO PHONE #: [phone] [facility] METABOLIC [id number] 13:22:00 Test Item Value Reference Range Interpretation [...] 8.7-9.7 PLEASE CALL RESULTS TO PHONE #: [phone] [facility] METABOLIC [id number] 13:22:00 Test Item Value Reference Range Interpretation [...] 8.7-9.7 PLEASE CALL RESULTS TO PHONE #: [phone] [facility] W/AUTO [id number] 13:13:00 Test Item Value Reference Range Interpretation [...] NRBC#) PLEASE CALL RESULTS TO PHONE #: [phone] [facility] 12 AB [id number] 18:12:00 Test Item Value Reference Range Interpretation Comments HIV 1 2 COMBO AG/AB SCREEN AB/AG NON REACTIVE NONREACTIVE (test code = [id number]) PROTHROMBIN [id number] 17:56:00 Test Item Value Reference Range Interpretation [...] syste eric embolism. 3.0 - 4.5 PTT [id number] 17:56:00 Test Item Value Reference Range Interpretation Comments PTT ACTIVATED (test code = APTT) 35.0 SECONDS 25.1-36.5 N PLT RESPONSE TO [id number] 17:56:00 Test Item Value Reference Range Interpretation [...] had fewer a dverse events. COMPREHENSIVE METABOLIC [id number] 17:40:00 Test Item Value Reference Range Interpretation [...] in the last 72 hours- XR CHEST [id number] 17:32:00[facility] : 1940 Sex: F Patient Name: JORGE A HORTA Unit No: [id number] EXAMS: CPT CODE: [id number] XR CHEST 1V 00730 EXAM: - XR CHEST 1V LOCATION: C3 [...] Technologist: Zoltan Low (RT) Transcrpt Date/Tm/Trnsp: 11/29/2019 (173) t.SDR.HV2 Orig Print D/T: S: 11/29/2019 (1735) [facility] NAME: JORGE A HORTA [address] PHYS: [place] [address] : 1940 AGE: 79 SEX: F LOC: Z.355 A PHONE #: [phone] EXAM DATE: 11/29/2019 STATUS: ADM IN FAX #: [phone] RADIOLOGY NO: PAGE 1 Signed ReportCOMPREHENSIVE METABOLIC [id number] 17:29:00 Test Item Value Reference Range Interpretation [...] done in the last 72 hoursCOMPREHENSIVE METABOLIC [id number] 17:28:00 Test Item Value Reference Range Interpretation [...] done in the last 72 hoursGLYCOSYLATED HEMOGLOBIN [id number] 17:27:00 Test Item Value Reference Range Interpretation Comments GLYCOSYLATED 5.7 % 4.8-5.9 N Any condition t hat HEMOGLOBIN (HA1C) shortens e rythocyte (test code = survival or dec reasesmean GLYHGB) erythrocyte age (e.g., recovery from a cute blood loss,hemolytic anemia) will falsely lo wer HGBA1c resultsregardle ss of the method used. H GBA1c results from pa tientswith HbSS, HbCC, and HbSc must be interpreted with cautiongiven th e pathological pr ocesses, including anemia,increase d red cell turnover, trans fusion requirements, thatadversely i mpact HGBA1c as a mar ker of long-term glycemiccontrol . Alternative for ms of testing such as fructosaminesho uld be considered for these patients. MEAN BLOOD GLUCOSE 117 MG/DL 70-110 H (test code = MBG) COMPREHENSIVE METABOLIC [id number] 17:26:00 Test Item Value Reference Range Interpretation [...] done in the last 72 hoursCOMPREHENSIVE METABOLIC [id number] 17:25:00 Test Item Value Reference Range Interpretation [...] syste eric embolism. 3.0 - 4.5 PTT [id number] 17:24:00 Test Item Value Reference Range Interpretation Comments PTT ACTIVATED (test code = APTT) 35.0 SECONDS 25.1-36.5 N PLT RESPONSE TO [id number] 17:24:00 Test Item Value Reference Range Interpretation Comments PLT RESPONSE TO PLAVIX (test code = PRU 194-418 PLAVRES) CBC W/AUTO [id number] 17:14:00 Test Item Value Reference Range Interpretation [...] 112 MG/DL 60-99 H = GLUBED) T4 [id number] 17:37:00 Test Item Value Reference Range Interpretation Comments T4 FREE (test code = T4F) 1.3 NG/DL 0.78-2.19 N - CT ANGIO NECK W WO [id number] 17:37:00 [facility] : 1940 Sex: F Patient Name: JORGE A HORTA Unit No: [id number] EXAMS: CPT CODE: [id number] CT [place] [address] Examination: CTA head and neck with contrast. Location code: H 60. TECHNIQUE: Multiple axial images of the [...] referable to the left posterior cerebral artery [facility] NAME: JORGE A HORTA [id number] PHYS: [id number] Ranjana De Los Santos MD [address] [place] [address] : 1940 AGE: 79 SEX: F LOC: Z.355 A PHONE #: [phone] EXAM DATE: 11/27/2019 STATUS: ADM IN FAX #: [phone] RAD #: D/C DT PAGE 1 Signed Report (CONTINUED) Patient Name: JORGE A HORTA Unit No: [id number] EXAMS: CPT CODE: [id number] CT ANGIO NECK W [place] CONT [address]7738 <Continued> circulation conventional angiography is recommended for further evaluation. 4. Otherwise unremarkable CTA examination of brain. at 1737 Reported and signed by: Anthony Boyer MD CC: Ramu Sutherland MD; Rashid Son MD; Ranjana Mcclelland MD Technologist: Ana Maria Tovar RT (R) (CT) CTDI: DLP: Trnscrpt: 11/27/2019 (1737) tSHERRIR.VR5 [facility] NAME: JORGE A HORTA PHYS: [place] [address] : 1940 AGE: 79 SEX: F LOC: Z.355 A PHONE #: [phone] EXAM DATE: 11/27/2019 STATUS: ADM IN FAX #: [phone] RAD #: D/C DT PAGE 2 Signed Report Patient Name: JORGE A HORTA Unit No: [id number] EXAMS: CPT CODE: [id number] CT [place] CONT [address] <Continued> Orig Print D/T: S: 11/27/2019 (1740) [facility] NAME: JORGE A HORTA PHYS: Ranjana Scott MD [place] [id number] : 1940 AGE: 79 SEX: F LOC: Z.355 A PHONE #: [phone] EXAM DATE: 11/27/2019 STATUS: ADM IN FAX #: [phone] RAD #: D/C DT PAGE 3 Signed Report- CT ANGIO [id number] 17:37:00 [facility] : 1940 Sex: F Patient Name: JORGE A HORTA Unit No: [id number] EXAMS: CPT CODE: [id number] CT ANGIO HEAD [address] Examination: CTA head and neck with contrast. [...] referable to the left posterior cerebral artery [facility] NAME: JORGE A HORTA [id number] PHYS: ZHURanjana Sequeira MD [address] [place] [address] : 1940 AGE: 79 SEX: F LOC: Z.355 A PHONE #: [phone] EXAM DATE: 11/27/2019 STATUS: ADM IN FAX #: [phone] RAD #: D/C DT PAGE 1 Signed Report (CONTINUED) Patient Name: JORGE A HORTA Unit No: [id number] EXAMS: CPT CODE: [id number] CT ANGIO HEAD [address] <Continued> circulation conventional angiography is recommended for further evaluation. 4. Otherwise unremarkable CTA examination of brain. at 1737 Reported and signed by: Anthony Boyer MD CC: Ramu Sutherland MD; Rashid Son MD; Ranjana Mcclelland MD Technologist: Ana Maria Tovar RT (R) (CT) CTDI: DLP: Trnscrpt: 11/27/2019 (1737) t.SDR.VR5 [facility] NAME: JORGE A HORTA [id number] PHYS: [id number] Ranjana De Los Santos MD [address] [place] [address] : 1940 AGE: 79 SEX: F LOC: Z.355 A PHONE #: [phone] EXAM DATE: 11/27/2019 STATUS: ADM IN FAX #: [phone] RAD #: D/C DT PAGE 2 Signed Report Patient Name: JORGE A HORTA Unit No: [id number] EXAMS: CPT CODE: [id number] CT ANGIO HEAD [address] <Continued> Orig Print D/T: S: 11/27/2019 (1740) [facility] NAME: JORGE A HORTA [id number] PHYS: [id number] Ranjana De Los Santos MD [address] [place] [address] : 1940 AGE: 79 SEX: F LOC: Z.355 A PHONE #: [phone] EXAM DATE: 11/27/2019 STATUS: ADM IN FAX #: [phone] RAD #: D/C DT PAGE 3 Signed ReportTSH REFLEX TO [id number] 17:02:00 Test Item Value Reference Range Interpretation Comments TSH REFLEX TO FT4 0.183 MIU/L 0.65-4.68 L Please be aware that (test code = bias results fo r TSH TSHREFLEX) may occur forpa tient who are taking Biotin supplements. C REACTIVE [id number] 16:34:00 Test Item Value Reference Range Interpretation Comments C REACTIVE PROTEIN (test code = 1.00 MG/DL 0.00-9.99 N CRP) - MRI BRAIN W/O [id number] 16:27:00 [facility] : 1940 Sex: F Patient Name: JORGE A HORTA Unit No: [id number] EXAMS: CPT CODE: [id number] MRI BRAIN W/O CONTRAST 44013 B2 - MRI BRAIN W/O CONTRAST HISTORY: [...] abnormalities. at 1627 Reported and signed by: Hraesh Gross MD CC: Ramu Sutherland MD; Rashid Son MD Technologist: Debby Ceja(CT)(MRI) Transcrpt Date/Tm/Trnsp: 11/27/2019 (162) Dorys.VB7 Orig Print D/T: S: 11/27/2019 (1630) [facility] NAME: JORGE A HORTA [address] PHYS: [place] [address] : 1940 AGE: 79 SEX: F LOC: Z.355 A PHONE #: [phone] EXAM DATE: 11/27/2019 STATUS: ADM IN FAX #: [phone] RADIOLOGY NO: PAGE 1 Signed ReportGLUCOSE BEDSIDE [id number] 16:17:00 Test Item Value Reference Range Interpretation Comments GLUCOSE BEDSIDE TESTING (test code 118 MG/DL 60-99 H = GLUBED) BASIC METABOLIC [id number] 06:33:00 Test Item Value Reference Range Interpretation [...] 0-189 mg/dL VERY HIGH...... ...>/= 190 mg/dL [id number] 06:33:00 Test Item Value Reference Range Interpretation Comments MAGNESIUM (test code = MAG) 2.0 MG/DL 1.6-2.3 N BASIC METABOLIC [id number] 06:22:00 Test Item Value Reference Range Interpretation [...] LDL (test MG/DL 0-99 code = LDL) [id number] 06:22:00 Test Item Value Reference Range Interpretation Comments MAGNESIUM (test code = MAG) 2.0 MG/DL 1.6-2.3 N BASIC METABOLIC [id number] 06:21:00 Test Item Value Reference Range Interpretation [...] LDL (test code = LDL) MG/DL 0-99 [id number] 06:21:00 Test Item Value Reference Range Interpretation Comments MAGNESIUM (test code = MAG) MG/DL 1.6-2.3 BASIC METABOLIC [id number] 06:18:00 Test Item Value Reference Range Interpretation [...] LDL (test code = LDL) MG/DL 0-99 [id number] 06:18:00 Test Item Value Reference Range Interpretation Comments MAGNESIUM (test code = MAG) MG/DL 1.6-2.3 GLYCOSYLATED HEMOGLOBIN [id number] 06:07:00 Test Item Value Reference Range Interpretation [...] 70-110 H (test code = MBG) PROTHROMBIN [id number] 06:03:00 Test Item Value Reference Range Interpretation [...] syste eric embolism. 3.0 - 4.5 PTT [id number] 06:03:00 Test Item Value Reference Range Interpretation Comments PTT ACTIVATED (test code = APTT) 29.9 SECONDS 25.1-36.5 N CBC W/AUTO [id number] 05:52:00 Test Item Value Reference Range Interpretation [...] 0.00 K/mm3 0.0-0.1 N NRBC#) B-TYPE NATRIURETIC [id number] 21:04:00 Test Item Value Reference Range Interpretation Comments B-TYPE NATRIURETIC PEPTIDE (test 205.0 PG/ML 0-100 H code = BNP) COMPREHENSIVE METABOLIC [id number] 21:03:00 Test Item Value Reference Range Interpretation [...] UNITS/L 38-126 N (test code = ALKP) [id number] 21:03:00 Test Item Value Reference Range Interpretation Comments TROPONIN-I (test code = TROPI) 0.043 NG/ML 0.012-0.033 H COMPREHENSIVE METABOLIC [id number] 20:53:00 Test Item Value Reference Range Interpretation [...] UNITS/L 38-126 N (test code = ALKP) [id number] 20:53:00 Test Item Value Reference Range Interpretation Comments TROPONIN-I (test code = TROPI) NG/ML 0.0-0.045 COMPREHENSIVE METABOLIC [id number] 20:52:00 Test Item Value Reference Range Interpretation [...] UNITS/L 38-126 N (test code = ALKP) [id number] 20:52:00 Test Item Value Reference Range Interpretation Comments TROPONIN-I (test code = TROPI) NG/ML 0.0-0.045 COMPREHENSIVE METABOLIC [id number] 20:51:00 Test Item Value Reference Range Interpretation [...] PHOSPHATASE UNITS/L 38-126 (test code = ALKP) [id number] 20:51:00 Test Item Value Reference Range Interpretation Comments TROPONIN-I (test code = TROPI) NG/ML 0.0-0.045 COMPREHENSIVE METABOLIC [id number] 20:49:00 Test Item Value Reference Range Interpretation [...] PHOSPHATASE (test code = UNITS/L 38-126 ALKP) [id number] 20:49:00 Test Item Value Reference Range Interpretation Comments TROPONIN-I (test code = TROPI) NG/ML 0.0-0.045 CBC W/AUTO [id number] 20:40:00 Test Item Value Reference Range Interpretation [...] 0.00 K/mm3 0.0-0.1 N NRBC#) ARTERIAL BLOOD [id number] 10:23:00 Test Item Value Reference Range Interpretation [...] FIO2 (test code = COHBGFFIO2) 21 % PaO2/[id number] 10:23:00 Test Item Value Reference Range Interpretation Comments PaO2/FiO2 (test code = KRW2OSC9) mm/Hg ARTERIAL BLOOD [id number] 10:23:00 Test Item Value Reference Range Interpretation [...] FIO2 (test code = COHBGFFIO2) 21 % PaO2/[id number] 10:23:00 Test Item Value Reference Range Interpretation Comments PaO2/FiO2 (test code = HSA3CZI1) 380.00 mm/Hg VENOUS BLOOD [id number] 10:23:00 Test Item Value Reference Range Interpretation [...] (test code LINE = SITEV) BASIC METABOLIC [id number] 08:33:00 Test Item Value Reference Range Interpretation [...] 0-189 mg/dL VERY HIGH...... ...>/= 190 mg/dL [id number] 08:33:00 Test Item Value Reference Range Interpretation Comments MAGNESIUM (test code = MAG) 2.1 MG/DL 1.6-2.3 N BASIC METABOLIC [id number] 07:01:00 Test Item Value Reference Range Interpretation [...] LDL (test MG/DL 0-99 code = LDL) [id number] 07:01:00 Test Item Value Reference Range Interpretation Comments MAGNESIUM (test code = MAG) 2.1 MG/DL 1.6-2.3 N PROTHROMBIN [id number] 06:54:00 Test Item Value Reference Range Interpretation [...] syste eric embolism. 3.0 - 4.5 PTT [id number] 06:54:00 Test Item Value Reference Range Interpretation Comments PTT ACTIVATED (test code = APTT) 30.7 SECONDS 25.1-36.5 N CBC W/AUTO [id number] 06:43:00 Test Item Value Reference Range Interpretation [...] 0.0-0.1 N NRBC#) COVID 19 Asymptomatic IH [id number] 05:46:00 Test Item Value Reference Range Interpretation [...]
[2020-04-04 21:33] LABS: Absolute Lymphocytes (CBC) 2.6 K/uL (0.7-4.9); Basophils % 0.5 % (0-1.3); Hematocrit 30.1 % (36.0-45.0); Lymphocytes % 20.4 % (15.3-44.8); MPV 8.3 fL (7.6-11.3); Protime INR 3.84; RBC Red Blood Cell Count 3.47 M/uL (3.86-4.86)
[2020-04-04] MEDS ORDERED: NA CHLORIDE 0.9% 500 ML ONE (21:38)
[2020-04-04 21:51] LABS: ALT/SGPT 117 U/L (12-78); AST/SGOT 60 U/L (15-37); Albumin 3.6 g/dL (3.4-5.0); Alkaline Phosphatase 195 U/L (45-117); BUN Blood Urea Nitrogen 55 mg/dL (7-18); Bicarbonate 17 mmol/L (21-32); Bilirubin Direct 0.2 mg/dL (0-0.2); Bilirubin Total 0.4 mg/dL (0.2-1.0); Glucose Level 118 mg/dL (74-106); NT PRO-BNP 2810 pg/mL (<450); Potassium 5.2 mmol/L (3.5-5.1); Protein, Total 8.3 g/dL (6.4-8.2); Sodium Level 133 mmol/L (136-145); Troponin (Emerg Dept Use Only) < 0.02 ng/mL (0.0-0.045)
[2020-04-04 21:53] LABS: Magnesium 0.9 mg/dL (1.8-2.4)
[2020-04-04] MEDS ORDERED: ALBUTEROL 2.5 MG/3 ML NEB SOL ONE (22:37)
[2020-04-04] MEDS ORDERED: D50W 50 ML IV ONE (22:38)
[2020-04-04] MEDS ORDERED: INSULIN -REGULAR HUMAN 50 UNIT/0.5 ML ML ONE (22:38)
[2020-04-04] MEDS ORDERED: Magnesium Sulfate 2gm IVPB 2 G/50 ML BAG IV ONE (22:39)
[2020-04-04] MEDS ORDERED: CALCIUM GLUCONATE 1 GM IVPB 1 GM/50 ML BAG IV ONE (22:39)
--- NOTE | 2020-04-04 23:05 | EDPHYS ---
Physician Documentation [facility] Name: Claudette Sherman Age: 79 yrs Sex: Female : 1940 Arrival Date: 04/04/2020 Time: 17:52 Bed 17 Private MD: Zbigniew Sutherland R ED Physician John Bansal HPI: 04/04 18:59 This 79 yrs old Female presents to ER via Wheelchair with complaints of jmm Abnormal Lab Results, Urinary Retention, General Weakness. 18:59 Thsi is an 79 year old female with a history of hlp, htn, hypothyroidism that presents jmm to the ED with no complaints. Patient was sent due to abnormal outpatient labs of elevated k and elevated creatinine. . Onset: The symptoms/episode began/occurred at an unknown time. The patient has not experienced similar symptoms in the past. Historical: - Allergies: 18:42 Codeine; tw2 18:42 Morphine; tw2 - Home Meds: 18:42 levothyroxine 125 mcg oral tab [Active]; aspirin 81 mg Oral TbEC 1 tab once daily tw2 [Active]; megestrol 40 mg Oral tab 1 tab 4 times per day [Active]; sucralfate 1 gram Oral tab 1 tab 4 times per day [Active]; diphenoxylate-atropine 2.5-0.025 mg Oral tab 2 tabs once daily [Active]; metoprolol tartrate 25 mg Oral tab 1 tab once daily [Active]; atorvastatin 40 mg oral tab 1 tab once daily [Active]; mirtazapine 15 mg Oral tab 1 tab once daily [Active]; ferrous sulfate 325 mg (65 mg iron) Oral tab [Active]; warfarin 2.5 mg Oral tab 1 tab once daily (Last Dose: 04/01/2020 08:00) [Active]; 22:48 Lomotil 2.5-0.025 mg oral tab 2 tabs 2 times per day [Active]; Imodium Multi-Symptom sf Relief 2-125 mg oral tab 2 tab four times a day [Active]; - PMHx: 18:42 High Cholesterol; Hypertension; Hypothyroidism; sacrum wound; open wound on middle tw2 abdomen; - PSHx: 18: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 - Social history:: Smoking status: . ROS: 18:59 Constitutional: Negative for fever, chills, and weight loss, Eyes: Negative for injury, jmm pain, redness, and discharge, ENT: Negative for injury, pain, and discharge, Neck: Negative for injury, pain, and swelling, Cardiovascular: Negative for chest pain, palpitations, and edema, Respiratory: Negative for shortness of breath, cough, wheezing, and pleuritic chest pain, Abdomen/GI: Negative for abdominal pain, nausea, vomiting, diarrhea, and constipation, Back: Negative for injury and pain, MS/Extremity: Negative for injury and deformity, Skin: Negative for injury, rash, and discoloration, Neuro: Negative for headache, weakness, numbness, tingling, and seizure. 18:59 All other systems are negative. Exam: 18:59 Constitutional: This is a well developed, well nourished patient who is awake, alert, jmm and in no acute distress. Head/Face: atraumatic. Eyes: EOMI, no conjunctival erythema appreciated ENT: Moist Mucus Membranes Neck: Trachea midline, Supple Chest/axilla: Normal chest wall appearance and motion. Cardiovascular: Regular rate and rhythm. No edema appreciated Respiratory: Normal respirations, no respiratory distress appreciated Abdomen/GI: Non distended, soft Back: Normal ROM Skin: General appearance color normal 18:59 Musculoskeletal/extremity: ROM: intact in all extremities. 18:59 Skin: Appearance: Color: normal in color. 18:59 Neuro: Orientation: is normal, Mentation: is normal, Memory: is normal. 18:59 Psych: Behavior/mood is pleasant, cooperative. Vital Signs: 18:31 BP 110 / 76; Pulse 101; Resp 17; Temp 97.9(TE); Pulse Ox 100% on R/A; Weight 48.53 kg tw2 (R); 20:14 BP 120 / 48; Pulse 90; Resp 16; Pulse Ox 99% ; sf 20:30 BP 120 / 57; Pulse 88; Resp 16; Pulse Ox 100% ; sf 21:00 BP 127 / 58; Pulse 94; Resp 16; Pulse Ox 96% ; sf 21:30 BP 125 / 53; Pulse 81; Resp 16; Pulse Ox 99% ; sf 22:00 BP 110 / 34; Pulse 84; Resp 16; Pulse Ox 100% ; sf 04/05 00:00 BP 102 / 47; Pulse 100; Resp 16; Pulse Ox 100% ; sf 00:30 BP 103 / 52; Pulse 97; Resp 16; Pulse Ox 100% ; sf 01:30 BP 100 / 42; Pulse 101; Resp 16; Pulse Ox 100% ; sf 02:30 BP 106 / 47; Pulse 103; Resp 16; Pulse Ox 100% ; sf 08:08 BP 90 / 51; Pulse 88; Resp 15; Pulse Ox 100% ; dm14 MDM: 04/04 18:59 Patient medically screened. clara 22:47 Data reviewed: vital signs, nurses notes. Counseling: I had a detailed discussion with cam[place] the patient and/or guardian regarding: the historical points, exam findings, and any diagnostic results supporting the discharge/admit diagnosis, lab results, the need for further work-up and treatment in the hospital. ED course: I discussed the patient with Charly Higgins whom accepted the patient to Dr. Madrigal's service. . 04/04 18:59 Order name: Basic Metabolic Panel; Complete Time: 22:07 [facility] 04/04 18:59 Order name: CBC with Diff; Complete Time: 22:12 [facility] 04/04 18:59 Order name: LFT's; Complete Time: 22:07 [facility] 04/04 18:59 Order name: Magnesium; Complete Time: 22:07 [facility] 04/04 18:59 Order name: NT PRO-BNP; Complete Time: 22:07 [facility] 04/04 18:59 Order name: PT-INR; Complete Time: 22:07 [facility] 04/04 18:59 Order name: Troponin (emerg Dept Use Only); Complete Time: 22:07 [facility] 04/04 22:26 Order name: Urine Microscopic Only [facility] 04/04 22:26 Order name: Urine For Protein, Random [facility] 04/04 22:26 Order name: Urine Sodium Random [facility] 04/05 00:11 Order name: SARS-COV-2 RT PCR; Complete Time: 00:19 [facility] 04/05 05:36 Order name: CBC with Automated Diff [facility] 04/05 06:18 Order name: Basic Metabolic Panel [facility] 04/04 18:59 Order name: EKG; Complete Time: 19:00 [facility] 04/04 22:26 Order name: Rp Exam Complete US [facility] 04/04 22:31 Order name: CONS Physician Consult [facility] 04/05 06:18 Order name: Uric Acid [facility] 04/05 06:18 Order name: Phosphorus [facility] 04/05 06:18 Order name: Creatine Phosphokinase [facility] 04/05 06:18 Order name: Thyroid Stimulating Hormone [facility] 04/04 18:59 Order name: Cardiac monitoring; Complete Time: 20:28 [facility] 04/04 18:59 Order name: EKG - Nurse/Tech; Complete Time: 20:28 [facility] 04/04 18:59 Order name: IV Saline Lock; Complete Time: 23:14 [facility] 04/04 18:59 Order name: Labs collected and sent; Complete Time: 23:14 [facility] 04/04 18:59 Order name: O2 Per Protocol; Complete Time: 20:29 [facility] 04/04 18:59 Order name: O2 Sat Monitoring; Complete Time: 20:29 [facility] Administered Medications: 21:24 Drug: NS 0.9% 500 ml Route: IV; Rate: bolus; Site: right wrist; sf 22:11 Follow up: IV Status: Completed infusion; IV Intake: 500ml sf 22:11 Follow up: Response: No adverse reaction sf 22:05 Drug: NS 0.9% 1000 ml Route: IV; Rate: 75 ml/hr; Site: right wrist; sf 04/05 01:06 Follow up: IV Status: Infusion continued upon admission 04/04 22:26 Drug: D50W 50 ml Route: IVP; Site: right wrist; sf 04/05 01:06 Follow up: Response: No adverse reaction 04/04 22:30 Drug: Insulin Regular Human 10 units {Co-Signature: em (Keith Aquino RN).} Route: IVP; sf Site: right wrist; 04/05 01:06 Follow up: Response: No adverse reaction 04/04 22:32 Drug: Magnesium Sulfate 2 grams Route: IVPB; Infused Over: 2 hrs; Site: right wrist; sf 23:30 Follow up: Response: No adverse reaction; IV Status: Completed infusion; IV Intake: sf 100ml 23:08 Not Given (VORB to hold by DIANA Parks): Kayexalate 60 grams PO once sf 23:13 Drug: Albuterol 2.5 mg Route: Inhalation; sf 23:14 Drug: Albuterol 2.5 mg Route: Inhalation; sf 23:14 Drug: Albuterol 2.5 mg Route: Inhalation; sf 23:46 Drug: Calcium Gluconate 1 grams Route: IVPB; Infused Over: 60 mins; Site: right wrist; sf 04/05 00:45 Follow up: Response: No adverse reaction; IV Status: Completed infusion; IV Intake: sf 100ml 04/04 23:46 Drug: fentaNYL (PF) 25 mcg Route: IVP; Site: right wrist; sf 04/05 01:05 Follow up: Response: No adverse reaction; Pain is decreased sf Disposition: 04/04/20 23:04 Hospitalization ordered by Blair Madrigal for Inpatient Admission. Preliminary diagnosis are Acute Kidney Injury, Hyperkalemia. - Bed requested for Telemetry/MedSurg (Inpatient). - Status is Inpatient Admission. iw - Condition is Stable. - Problem is new. - Symptoms are unchanged. Addendum: 04/08/2020 06:28 Co-signature as Attending Physician, John Bansal MD I agree with the assessment and c allen plan of care. Signatures: Dispatcher [employer] [facility] Whitley Doshi RN RN dw Anderson, Corey, MD MD cha Mickail, Joel, PA PA [facility] Rhianna Hutchins RN RN Charly Higgins PA PA [id number] Mamta Ames RN RN 2 Victor M Pitt RN RN Keith Aquino RN em Corrections: (The following items were deleted from the chart) 04/04 22:48 18:42 Home Meds: lisinopril 10 mg Oral tab 1 tab BID; tw2 23:30 22:37 CORONAVIRUS+MR.LAB.BRZ ordered. [facility] 04/05 02:18 04/04 23:04 Hospitalization Ordered by Blair Madrigal for Inpatient Admission. Preliminary diagnosis is Acute Kidney Injury; Hyperkalemia. Bed requested for Telemetry/MedSurg (Inpatient). Status is Inpatient Admission. Condition is Stable. Problem is new. Symptoms are unchanged. [facility] 04/05 06:08 02:18 04/04/2020 23:04 Hospitalization Ordered by Blair Madrigal for Inpatient dw Admission. Preliminary diagnosis is Acute Kidney Injury; Hyperkalemia. Bed requested for [facility] ER HOLD. Status is Inpatient Admission. Condition is Stable. Problem is new. Symptoms are unchanged. dw 08:57 06:08 04/04/2020 23:04 Hospitalization Ordered by Blair Madrigal for Inpatient iw Admission. Preliminary diagnosis is Acute Kidney Injury; Hyperkalemia. Bed requested for Telemetry/MedSurg (Inpatient). Status is Inpatient Admission. Condition is Stable. Problem is new. Symptoms are unchanged. dw
--- NOTE | 2020-04-04 23:05 | ER ---
Nurse's Notes [facility] Name: Claudette Sherman Age: 79 yrs Sex: Female : 1940 Arrival Date: 04/04/2020 Time: 17:52 Bed 17 Private MD: Zbigniew Sutherland R Diagnosis: Acute Kidney Injury;Hyperkalemia Presentation: 04/04 18:31 Chief complaint: Patient's son or daughter states: blood work by dr hopkins here tw2 yesterday, said potassium was high and kidneys were not functioning and they told us to take her to a hospital. Coronavirus screen: At this time, the client does not indicate any symptoms associated with coronavirus-19. Ebola Screen: Patient denies travel to an Ebola-affected area in the 21 days before illness onset. Initial Sepsis Screen: Does the patient meet any 2 criteria? No. Patient's initial sepsis screen is negative. Does the patient have a suspected source of infection? No. Patient's initial sepsis screen is negative. Risk Assessment: Do you want to hurt yourself or someone else? Patient reports no desire to harm self or others. Onset of symptoms was April 04, 2020. 18:31 Method Of Arrival: Wheelchair tw2 18:31 Acuity: LIZ 2 tw2 Triage Assessment: 18:43 General: Appears in no apparent distress. Behavior is calm, cooperative, appropriate tw2 for age, quiet. Pain: Complains of pain in abdomen. 18:56 General: pts daughter states "she has an ostomy bag as well and she has another wound tw2 in the middle of her stomach as well and also a wound on her bottom". Historical: - Allergies: 18:42 Codeine; tw2 18:42 Morphine; tw2 - Home Meds: 18:42 levothyroxine 125 mcg oral tab [Active]; aspirin 81 mg Oral TbEC 1 tab once daily tw2 [Active]; megestrol 40 mg Oral tab 1 tab 4 times per day [Active]; sucralfate 1 gram Oral tab 1 tab 4 times per day [Active]; diphenoxylate-atropine 2.5-0.025 mg Oral tab 2 tabs once daily [Active]; metoprolol tartrate 25 mg Oral tab 1 tab once daily [Active]; atorvastatin 40 mg oral tab 1 tab once daily [Active]; mirtazapine 15 mg Oral tab 1 tab once daily [Active]; ferrous sulfate 325 mg (65 mg iron) Oral tab [Active]; warfarin 2.5 mg Oral tab 1 tab once daily (Last Dose: 04/01/2020 08:00) [Active]; 22:48 Lomotil 2.5-0.025 mg oral tab 2 tabs 2 times per day [Active]; Imodium Multi-Symptom sf Relief 2-125 mg oral tab 2 tab four times a day [Active]; - PMHx: 18:42 High Cholesterol; Hypertension; Hypothyroidism; sacrum wound; open wound on middle tw2 abdomen; - PSHx: 18: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 - Social history:: Smoking status: . Screenin:10 Abuse screen: Denies threats or abuse. Denies injuries from another. Nutritional sf screening: No deficits noted. Tuberculosis screening: No symptoms or risk factors identified. Never had TB. Possible symptoms: None Risk factors: None. Fall Risk None identified. No fall in past 12 months (0 pts). Secondary diagnosis (15 points) impaired mobility, IV access (20 points). Ambulatory Aid- None/Bed Rest/Nurse Assist (0 pts). Gait- Weak (10 pts.). Mental Status- Oriented to own ability (0 pts). Total Bowman Fall Scale indicates High Risk Score (45 or more points). Assessment: 20:10 General: Appears in no apparent distress. comfortable, Behavior is calm, cooperative. sf Pain: Denies pain. Neuro: No deficits noted. Level of Consciousness is awake, alert, Oriented to person, place, time, situation. Cardiovascular: Patient's skin is warm and dry. Rhythm is sinus rhythm with unifocal PVCs. Respiratory: No deficits noted. Airway is patent Respiratory effort is even, unlabored, Respiratory pattern is regular, symmetrical. GI: Abdomen is non-distended, Colostomy site is clean and dry. Ostomy appliance is intact. 20:10 Derm: Decubitus located on sacrum. sf 04/05 01:04 Reassessment: Patient appears in no apparent distress at this time. No changes from sf previously documented assessment. Patient and/or family updated on plan of care and expected duration. Pain level reassessed. Patient is alert, oriented x 3, equal unlabored respirations, skin warm/dry/pink. Vital Signs: 04/04 18:31 BP 110 / 76; Pulse 101; Resp 17; Temp 97.9(TE); Pulse Ox 100% on R/A; Weight 48.53 kg tw2 (R); 20:14 BP 120 / 48; Pulse 90; Resp 16; Pulse Ox 99% ; sf 20:30 BP 120 / 57; Pulse 88; Resp 16; Pulse Ox 100% ; sf 21:00 BP 127 / 58; Pulse 94; Resp 16; Pulse Ox 96% ; sf 21:30 BP 125 / 53; Pulse 81; Resp 16; Pulse Ox 99% ; sf 22:00 BP 110 / 34; Pulse 84; Resp 16; Pulse Ox 100% ; sf 04/05 00:00 BP 102 / 47; Pulse 100; Resp 16; Pulse Ox 100% ; sf 00:30 BP 103 / 52; Pulse 97; Resp 16; Pulse Ox 100% ; sf 01:30 BP 100 / 42; Pulse 101; Resp 16; Pulse Ox 100% ; sf 02:30 BP 106 / 47; Pulse 103; Resp 16; Pulse Ox 100% ; sf 08:08 BP 90 / 51; Pulse 88; Resp 15; Pulse Ox 100% ; dm14 ED Course: 04/04 17:52 Patient arrived in ED. am2 17:53 Zbigniew Sutherland MD is Private Physician. am2 18:38 Triage completed. tw2 18:43 Arm band placed on. tw2 18:51 Saul Montiel, RN is Primary Nurse. bp 18:58 Vicente Celestin PA is PHCP. jmm 18:58 John Bansal MD is Attending Physician. jmm 19:12 Primary Nurse role handed off by Saul Montiel, DANILO sf 19:12 Victor M Pitt, DANILO is Primary Nurse. sf 20:10 Patient has correct armband on for positive identification. Placed in gown. Bed in low sf position. Call light in reach. Side rails up X2. monitoring manager on. Pulse ox on. NIBP on. Door closed. Noise minimized. Lights dimmed. Warm blanket given. Verbal reassurance given. 20:11 EKG done, by ED staff, reviewed by John Bansal MD. sf 20:29 Missed attempt(s): 22 gauge in left wrist. sf 21:17 Inserted saline lock: 20 gauge in right hand, using aseptic technique. Blood collected. rr5 22:14 No provider procedures requiring assistance completed. Patient admitted, IV remains in sf place. 22:55 COVID swab sent to lab. sf 23:00 Rp Exam Complete US In Process Unspecified. EDMS 23:02 Blair Madrigal is Hospitalizing Provider. m 23:14 Initial Neb Treatment Given as ordered Unable to instruct patient due to physical sf barriers, family/caregiver was instructed on procedure Patient tolerated procedure well without adverse effect. 04/05 01:40 Straight cath inserted, using sterile technique, 16 Fr. with Kevin, PCT Returned no sf urine. Patient tolerated well. 07:12 Report given to DANILO Castillo. sf 08:16 Inserted saline lock:. dm14 08:17 Inserted saline lock:. dm14 Administered Medications: 04/04 21:24 Drug: NS 0.9% 500 ml Route: IV; Rate: bolus; Site: right wrist; sf 22:11 Follow up: IV Status: Completed infusion; IV Intake: 500ml sf 22:11 Follow up: Response: No adverse reaction sf 22:05 Drug: NS 0.9% 1000 ml Route: IV; Rate: 75 ml/hr; Site: right wrist; sf 04/05 01:06 Follow up: IV Status: Infusion continued upon admission sf 04/04 22:26 Drug: D50W 50 ml Route: IVP; Site: right wrist; sf 04/05 01:06 Follow up: Response: No adverse reaction sf 04/04 22:30 Drug: Insulin Regular Human 10 units {Co-Signature: em (Keith Aquino RN).} Route: IVP; sf Site: right wrist; 04/05 01:06 Follow up: Response: No adverse reaction sf 04/04 22:32 Drug: Magnesium Sulfate 2 grams Route: IVPB; Infused Over: 2 hrs; Site: right wrist; sf 23:30 Follow up: Response: No adverse reaction; IV Status: Completed infusion; IV Intake: sf 100ml 23:08 Not Given (VORB to hold by DIANA Parks): Kayexalate 60 grams PO once sf 23:13 Drug: Albuterol 2.5 mg Route: Inhalation; sf 23:14 Drug: Albuterol 2.5 mg Route: Inhalation; sf 23:14 Drug: Albuterol 2.5 mg Route: Inhalation; sf 23:46 Drug: Calcium Gluconate 1 grams Route: IVPB; Infused Over: 60 mins; Site: right wrist; sf 04/05 00:45 Follow up: Response: No adverse reaction; IV Status: Completed infusion; IV Intake: sf 100ml 04/04 23:46 Drug: fentaNYL (PF) 25 mcg Route: IVP; Site: right wrist; sf 04/05 01:05 Follow up: Response: No adverse reaction; Pain is decreased sf Intake: 04/04 22:11 IV: 500ml; Total: 500ml. sf 23:30 IV: 100ml; Total: 600ml. sf 04/05 00:45 IV: 100ml; Total: 700ml. sf Outcome: 04/04 23:04 Decision to Hospitalize by Provider. [facility] 04/05 03:04 Admitted to ER Hold. Please see [facility] for further documentation. sf Condition: stable Instructed on the need for admit. 08:57 Patient left the ED. iw Signatures: Dispatcher [employer] EDMS Vicente Celestin PA PA Rhianna Cosby RN RN Mamta Ames RN RN tw2 Ana Maria Lomeli am2 Saul Montiel RN RN Navin Wallace RN RN rr5 Victor M Pitt RN RN Anna Brady RN RN [id number] Keith Aquino RN Corrections: (The following items were deleted from the chart) 04/04 18:43 18:31 Acuity: LIZ 3 tw2 tw2 18:57 18:43 Pain: Complains of pain in abdomen tw tw2 19:13 18:48 Reassessment: pt in restroom near triage room, pt states "no ready yet, i am tw2 having diarrhea", nurse notified. tw 22:48 18:42 Home Meds: lisinopril 10 mg Oral tab 1 tab BID; tw2 sf 23:14 23:13 Albuterol 7.5 mg Inhalation sf sf
[2020-04-04] MEDS ORDERED: NA CHLORIDE 0.9% 1,000 ML ONE (23:08)
[2020-04-04] MEDS ORDERED: SOD POLYSTYREN SUL 15 GM/60 ML UCUP ONE (23:10)
[2020-04-04] MEDS ORDERED: FENTANYL CITR 100 MCG/2 ML ONE (23:59)
--- NOTE | 2020-04-05 03:42 | P.HP ---
Certification for Inpatient Patient admitted to: Inpatient With expected LOS: >2 Midnights Patient will require the following post-hospital care: None Practitioner: I am a practitioner with admitting privileges, knowledge of patient current condition, hospital course, and medical plan of care. Services: Services provided to patient in accordance with Admission requirements found in Title 42 Section 412.3 of the Code of Federal Regulations <Zoltan Higgins - Last Filed: 04/05/20 03:36> Patient History Date of Service: 04/05/20 Primary Care Provider: Dr. Sutherland Reason for admission: Acute Renal Failure, Hypomagnesmia History of Present Illness: This is an 79-year-old female with a history of high cholesterol, hypertension, colostomy, CABG that presented to the emergency room after being called by her primary care physician for abnormal lab results. Family members stated that they had noticed that she had had a decrease in urination over the last 24 hr. Primary care physician stated that her potassium was abnormal and that her creatinine was also abnormal. Patient was worked up in the emergency room and found to have a sodium of 133, potassium 5.2, chloride 108, bicarb 17, BUN 55, creatinine 2.96, glucose 118. Patient was a month ago had fairly normal renal function. Patient had a white cell count of 12.9, hemoglobin 10.1, hematocrit 30.1, platelets 339. Patient also found to have a magnesium level of 0.9. Family member stated that patient has had problems ever since her colostomy was placed. Stated that she has frequent persistent diarrhea and has been seen by GI and general surgery for this. Currently on Lomotil and Imodium daily. Family stated that patient has been admitted before for dehydration along with hypokalemia and hypomagnesemia in the past. Medicine consulted at time and patient will be admitted to the inpatient setting for acute renal failure and hypomagnesemia. Home medications list reviewed: Yes - Past Medical/Surgical History Has patient received pneumonia vaccine in the past: Yes Diabetic: No -: Dm -: htn -: hyperlipidemia -: knee sx -: anita -: hysterectomy -: Colostomy - Family History Father Notes: no medical condition,still living Mother Notes: no medical condition,still living - Social History Smoking Status: Never smoker Smoking therapy provided: No Alcohol use: No CD- Drugs: No Caffeine use: Yes Place of Residence: Home <Zoltan Higgins - Last Filed: 04/05/20 03:36> Date of Service: 04/06/20 <tressa meza - Last Filed: 04/06/20 18:12> Allergies codeine Allergy (Verified 04/05/20 03:55) Rash morphine Allergy (Verified 04/05/20 03:55) Rash Home Medications: Metoprolol Tartrate [Lopressor*] 25 mg PO BID 02/23/20 Mirtazapine [Remeron*] 15 mg PO BEDTIME 02/23/20 Warfarin Sodium [Coumadin*] 2.5 mg PO DAILY AT SUPPER 02/23/20 Atorvastatin Calcium 1 tab PO DAILY 04/05/20 Diphenox/Atropine [Lomotil*] 2 tab PO BID 04/05/20 Diphenoxylate HCl/Atropine [Diphenoxylate-Atrop 2.5-0.025] 2 tab PO DAILY 04/05/20 Ferrous Sulfate [Iron] 325 mg PO DAILY 04/05/20 Levothyroxine [Synthroid*] 1 tab PO DAILY 04/05/20 Loperamide [Imodium*] 2 tab PO QID 04/05/20 Megestrol Acetate 1 tab PO QID 04/05/20 Sucralfate [Carafate*] 1 gm PO QID 04/05/20 Sodium Bicarbonate 650 mg PO BID #14 tablet 04/06/20 Review of Systems General: Unremarkable Eyes: Unremarkable ENT: Unremarkable Respiratory: Unremarkable Cardiovascular: Unremarkable Gastrointestinal: Diarrhea Genitourinary: Unremarkable Musculoskeletal: Unremarkable Integumentary: Unremarkable Neurological: Unremarkable Lymphatics: Unremarkable <Zoltan Higgins - Last Filed: 04/05/20 03:36> Physical Examination - Vital Signs Temperature: 97.9 F Blood Pressure: 110/76 Pulse: 90 Respirations: 16 Pulse Ox (%): 100 - Physical Exam General: Alert, In no apparent distress, Oriented x3, Cooperative HEENT: PERRLA, Mucous membr. moist/pink, EOMI Neck: Supple, 2+ carotid pulse no bruit, JVD not distended, No Thyromegaly Respiratory: Clear to auscultation bilaterally, Normal air movement Cardiovascular: No edema, Normal pulses, Regular rate/rhythm, Normal S1 S2, No gallops, No rubs, No murmurs Capillary refill: <2 Seconds Gastrointestinal: Normal bowel sounds, Soft and benign, Non-distended, No ascites, No tenderness, No masses, No rebound, No guarding, Other (Colostomy noted right lower quadrant with green liquid stool.) Musculoskeletal: No clubbing, No swelling, No contractures, No erythema, No tenderness, No warmth Integumentary: No rashes, No breakdown, No significant lesion, No tenderness/swelling, No erythema, No warmth, No cyanosis Neurological: Normal speech, Normal strength at 5/5 x4 extr, Normal tone, Sensation intact, Cranial nerves 3-12 intact, Normal affect Lymphatics: No axilla or inguinal lymphadenopathy - Studies Laboratory Data (last 24 hrs) 04/04/20 21:15: PT 44.8 H, INR 3.84 04/04/20 21:15: WBC 12.90 H, Hgb 10.1 L, Hct 30.1 L, Plt Count 339 04/04/20 21:15: Sodium 133 L, Potassium 5.2 H, BUN 55 H, Creatinine 2.96 H, Glucose 118 H, Magnesium 0.9 L* D, Total Bilirubin 0.4, AST 60 H, ALT 117 H, Alkaline Phosphatase 195 H <Zoltan Higgins - Last Filed: 04/05/20 03:36> Assessment and Plan - Problems (Diagnosis) (1) Acute renal failure Status: Acute Plan: Patient will be further worked up for acute renal failure. Nephrology has been consulted. Renal pelvic ultrasound has been completed. We will continue to monitor chemistries daily and other renal labs have been placed to be drawn. Patient will continue to be hydrated as this is most likely the cause. Will monitor patient over the next couple days to see if we have improvement in renal function and await consultation from nephrology. Qualifiers: Acute renal failure type: unspecified Qualified Code(s): N17.9 - Acute kidney failure, unspecified (2) Elevated INR Status: Acute Plan: Patient had mild hyper therapeutic INR secondary to her warfarin use for mechanical aortic valve. Will continue to hold Coumadin [address] art patient back on warfarin therapy. (3) Hypomagnesemia Status: Acute Plan: Patient had moderate to severe hypomagnesemia. Patient had magnesium replaced in the emergency room and will have magnesium replacement protocol placed in the inpatient setting and we will continue to replace the magnesium. (4) Status post colostomy Status: Chronic Plan: Patient status post colostomy. We will continue to monitor colostomy bag and site. (5) H/O mechanical aortic valve replacement Status: Chronic Discharge Plan: Home Plan to discharge in: 48 Hours - Advance Directives Does patient have a Living Will: No Does patient have a Durable POA for Healthcare: No - Code Status/Comfort Care Code Status Assessed: No Critical Care: No Time Spent Managing Pts Care (In Minutes): 70 <Zoltan Higgins - Last Filed: 04/05/20 03:36> Physician Review: Patient Assessed, Agree with Above Assessment and Plan Physician Review Additional Text: Electrolyte abnormalities corrected. Patient denies any symptoms. Her stool in the colostomy bag looks more formed. Her diarrhea is chronic. Clinically stable for discharge. Case discussed with nephrology-Dr. Isaacs who recommended oral bicarbonate replacement since patient has chronic diarrhea and risk of chronic loss of GI bicarb. Dr. Isaacs will follow patient in the office within 1 week. <tressa meza - Last Filed: 04/06/20 18:12>
[2020-04-05] MEDS ORDERED: ACETAMINOPHEN 500 MG TAB PO PRN (03:56)
[2020-04-05] MEDS ORDERED: NA CHLORIDE 0.9% 1,000 ML IV SCH (03:56)
[2020-04-05] MEDS ORDERED: ONDANSETRON 4 MG/2 ML VIAL IV PRN (03:56)
[2020-04-05 05:35] LABS: Absolute Lymphocytes (CBC) 1.6 K/uL (0.7-4.9); Basophils % 0.5 % (0-1.3); Hematocrit 25.1 % (36.0-45.0); Lymphocytes % 14.6 % (15.3-44.8); MPV 8.2 fL (7.6-11.3); RBC Red Blood Cell Count 2.87 M/uL (3.86-4.86)
[2020-04-05 06:12] LABS: Phosphorus 3.8 mg/dL (2.5-4.9); Potassium 4.4 mmol/L (3.5-5.1); Thyroid Stimulating Hormone 2.47 uIU/mL (0.360-3.740); Uric Acid 11.2 mg/dL (2.6-6.0)
--- NOTE | 2020-04-05 11:53 | RAD REPORT ---
EXAM DESCRIPTION: US - Renal Ultrasound-Complete - 04/04/2020 11:00 pm [facility]: US RETROPERITONEUM CLINICAL HISTORY: Acute kidney failure. COMPARISON: CT of the chest, abdomen, and pelvis from February 22, 2020. TECHNIQUE: Real-time ultrasound of the kidneys with Doppler flow imaging was obtained. FINDINGS: Right kidney measures 9.6 cm in length. No solid or cystic lesion identified. No hydro nephrosis or sonographic evidence of renal calculi. Normal renal cortical echogenicity and Doppler ev aluation. Left kidney measures approximately 8.7 cm in length. Suboptimal visualization of the upper pole due t o rib shadowing. No solid or cystic lesion identified. No hydronephrosis or sonographic evidence of renal calculi. Normal renal cortical echogenicity and Doppler evaluation. Urinary bladder is not visualized, likely due to underdistention. IMPRESSION: 1. No hydronephrosis bilaterally. 2. Suboptimal visualization of the upper pole of left kidney due to rib shadowing. 3. Nonvisualization of the urinary bladder, possibly under distended. Electronically signed by: Marleny Martinez MD 04/04/2020 11:06 PM SOCIAL SERVICE TECHNICIAN Due to temporary technical issues with the PACS/Fluency reporting system, reports are being signed by the in house radiologist without review as a courtesy to ensure prompt reporting. The interpreting r adiologist is fully responsible for the content of the report.
[2020-04-05] MEDS: D5W 1,000 ML with NA BICARB 8.4% 100 MEQ IV SCH ×2 (12:05)
--- NOTE | 2020-04-05 14:11 | EKG ---
Test Date: 2020-04-04 Test Time: 20:11:21 Operations Research Director: FRANCESCA MEASUREMENT RESULTS: Intervals: Rate: 96 DC: 114 QRSD: 146 QT: 394 QTc: 497 [place]: P: 48 DC: 114 QRS: -18 T: 98 INTERPRETIVE STATEMENTS: Sinus rhythm with premature supraventricular complexes Left bundle branch block Abnormal ECG Compared to ECG 02/22/2020 18:59:11 Atrial premature complex(es) now present Sinus tachycardia no longer present Electronically Signed On 04-05-20 14:09:00 [facility] by Delfino Guzmán
--- NOTE | 2020-04-05 14:19 | P.CNS ---
Date of Consult: 04/05/20 Reason for Consult: acute renal failure, Requesting Physician: Zoltan Higgins Primary Care Provider: Dr. Sutherland Chief Complaint: Acute Renal Failure, Hypomagnesemia, metabolic acidemia History of Present Illness: 79 y o female pt with hx of HTN, DM type 2, HLD, CAD, recent colostomy placement admitted for management of abnormal labs. she had diarrrhea from colostomy and she has been lethargic and weak for a while. labs done revealed low mag, hyperkalemia and heather. she was admitted for in pt care due to abnormal labs. Allergies codeine Allergy (Verified 04/05/20 03:55) Rash morphine Allergy (Verified 04/05/20 03:55) Rash Home Medications: Metoprolol Tartrate [Lopressor*] 25 mg PO BID 02/23/20 Mirtazapine [Remeron*] 15 mg PO BEDTIME 02/23/20 Warfarin Sodium [Coumadin*] 2.5 mg PO DAILY AT SUPPER 02/23/20 Atorvastatin Calcium 1 tab PO DAILY 04/05/20 Diphenox/Atropine [Lomotil*] 2 tab PO BID 04/05/20 Diphenoxylate HCl/Atropine [Diphenoxylate-Atrop 2.5-0.025] 2 tab PO DAILY 04/05/20 Ferrous Sulfate [Iron] 325 mg PO DAILY 04/05/20 Levothyroxine [Synthroid*] 1 tab PO DAILY 04/05/20 Loperamide [Imodium*] 2 tab PO QID 04/05/20 Megestrol Acetate 1 tab PO QID 04/05/20 Sucralfate [Carafate -Tab] 1 gm PO QID 04/05/20 - Past Medical/Surgical History Diabetic: No -: Dm -: htn -: hyperlipidemia -: knee sx -: anita -: hysterectomy -: Colostomy - Family History Father Notes: no medical condition,still living Mother Notes: no medical condition,still living - Social History Smoking Status: Never smoker Alcohol use: No CD- Drugs: No Caffeine use: No Place of Residence: Home Review of Systems General: Weakness, Malaise, Unremarkable Eyes: Unremarkable ENT: Unremarkable Respiratory: Unremarkable Cardiovascular: Unremarkable Gastrointestinal: Abdominal Pain, Diarrhea (from colostomy.) Genitourinary: As per HPI Musculoskeletal: Unremarkable Integumentary: Unremarkable Neurological: Unremarkable Physical Examination Temp Pulse Resp BP Pulse Ox 97.1 F 80 18 107/51 L 100 04/05/20 12:00 04/05/20 12:00 04/05/20 12:00 04/05/20 12:00 04/05/20 12:00 General: Alert, Oriented x3, Cachectic HEENT: Atraumatic, Normocephalic Neck: Supple Respiratory: Clear to auscultation bilaterally Cardiovascular: Regular rate/rhythm, Normal S1 S2 Gastrointestinal: Soft and benign Musculoskeletal: No clubbing Integumentary: No rashes Neurological: Cranial nerves 3-12 intact External genitalia: No edema Laboratory Data (last 24 hrs) 04/04/20 21:15: PT 44.8 H, INR 3.84 04/04/20 21:15: WBC 12.90 H, Hgb 10.1 L, Hct 30.1 L, Plt Count 339 04/04/20 21:15: Sodium 133 L, Potassium 5.2 H, BUN 55 H, Creatinine 2.96 H, Glucose 118 H, Magnesium 0.9 L* D, Total Bilirubin 0.4, AST 60 H, ALT 117 H, Alkaline Phosphatase 195 H Conclusions/Impression: HEATHER-elevated creatinine noted on labs at 2.96 but this is improved at 2.23 after IV fluid was started. we will monitor closely. we will avoid nephrotoxons. Hypomagnesemia-low magnesium noted at 0.90. repletion started. we will monitor closely. Metabolic acidemia-deemed due to loss from diarrea. we will replete via IV fluid and monitor. Hypertension-we will monitor vitals closely. no need for antihypertensive meds for now.
--- NOTE | 2020-04-05 15:29 | P.PN ---
Subjective Date of Service: 04/05/20 Primary Care Provider: Dr. Sutherland Chief Complaint: Acute Renal Failure, Hypomagnesemia, metabolic acidemia Subjective: No new changes, Doing well patient is resting. currently in no pain. <Best Hardy - Last Filed: 04/05/20 16:11> Date of Service: 04/06/20 <tressa meza - Last Filed: 04/06/20 18:01> Review of Systems 10-point ROS is otherwise unremarkable General: Unremarkable Eyes: Unremarkable ENT: Unremarkable Respiratory: Unremarkable Cardiovascular: Unremarkable Gastrointestinal: Unremarkable Genitourinary: Unremarkable Musculoskeletal: Unremarkable Integumentary: Unremarkable Neurological: Unremarkable Lymphatics: Unremarkable <Best Hardy - Last Filed: 04/05/20 16:11> Physical Examination - Vital Signs Temperature: 97.1 F Blood Pressure: 107/51 Pulse: 80 Respirations: 18 Pulse Ox (%): 100 - Physical Exam General: Alert, In no apparent distress, Oriented x3 HEENT: Atraumatic, Normocephalic, PERRLA, Mucous membr. moist/pink, EOMI, Sclerae nonicteric Neck: Supple, 2+ carotid pulse no bruit, JVD not distended, No Thyromegaly, No LAD Respiratory: Clear to auscultation bilaterally, Normal air movement Cardiovascular: No edema, Normal pulses, Regular rate/rhythm, Normal S1 S2, No gallops, No rubs, No murmurs Capillary refill: <2 Seconds Gastrointestinal: Normal bowel sounds, Soft and benign, Non-distended, No ascites, No tenderness, No masses, No rebound, No guarding, Other (colostomy bag) Musculoskeletal: No clubbing, No swelling, No contractures, No erythema, No tenderness, No warmth Integumentary: No rashes, No breakdown, No significant lesion, No tenderness/swelling, No erythema, No warmth, No cyanosis Neurological: Normal strength at 5/5 x4 extr, Normal tone, Sensation intact, Cranial nerves 3-12 intact, Normal affect Lymphatics: No axilla or inguinal lymphadenopathy - Studies Laboratory Data (last 24 hrs) 04/04/20 21:15: PT 44.8 H, INR 3.84 04/04/20 21:15: WBC 12.90 H, Hgb 10.1 L, Hct 30.1 L, Plt Count 339 04/04/20 21:15: Sodium 133 L, Potassium 5.2 H, BUN 55 H, Creatinine 2.96 H, Glucose 118 H, Magnesium 0.9 L* D, Total Bilirubin 0.4, AST 60 H, ALT 117 H, Alkaline Phosphatase 195 H <Best Hardy - Last Filed: 04/05/20 16:11> Assessment And Plan - Current Problems (Diagnosis) (1) Hypertension Status: Chronic Plan: hold home medications for now. continue to monitor. Qualifiers: Hypertension type: essential hypertension Qualified Code(s): I10 - Essential (primary) hypertension (2) Metabolic acidemia Status: Acute Plan: secondary to diarrhea. continue with IVF. nephrology on board. continue to monitor. (3) Diarrhea Status: Acute Qualifiers: Diarrhea type: unspecified type Qualified Code(s): R19.7 - Diarrhea, unspecified (4) Acute renal failure Status: Acute Plan: Cr has improved to 2.23 from 2.96. Continue IVF. Nephrology consulted. Renal Us showed no hydronephrosis. Qualifiers: Acute renal failure type: unspecified Qualified Code(s): N17.9 - Acute kidney failure, unspecified (5) Elevated INR Status: Acute Plan: Patient had mild hyper therapeutic INR secondary to her warfarin use for mechanical aortic valve. Will continue to hold Coumadin 1 more day and then start patient back on warfarin therapy. (6) Hypomagnesemia Status: Acute Plan: low Mg to 0.9. On magnesium replacement protocol. (7) H/O mechanical aortic valve replacement Status: Chronic Plan: stable. continue to monitor. (8) Status post colostomy Status: Chronic Plan: Site appears clean. Dietitian added enlive and hipolito to diet. Discharge Plan: Home Plan to discharge in: 48 Hours Critical Care: No Time Spent Managing PTS Care (In Minutes): 55 <Best Hardy - Last Filed: 04/05/20 16:11> Physician Review: Patient Assessed, Agree with Above Assessment and Plan Physician Review Additional Text: Acute renal failure. Metabolic acidosis Chronic diarrhea. plan: Continue IV hydration Patient is on bicarb drip Continue to monitor electrolytes Nephrology input appreciated. <tressa meza - Last Filed: 04/06/20 18:01>
[2020-04-05 20:39] VITALS: O2SAT 99
[2020-04-05] MEDS ORDERED: Magnesium Sulfate 2gm IVPB 2 G/50 ML BAG IV ONE (22:00)
[2020-04-05] MEDS: JUVEN PACKET PO SCH (22:07)
[2020-04-05] MEDS: ENSURE ENLIVE 237 ML CAN PO SCH (22:07)
[2020-04-06] MEDS: D5W 1,000 ML with NA BICARB 8.4% 100 MEQ IV SCH ×2 (00:50)
--- NOTE | 2020-04-06 05:51 | P.PN ---
Subjective Date of Service: 04/06/20 Primary Care Provider: Dr. Sutherland Chief Complaint: Acute Renal Failure, Hypomagnesemia, metabolic acidemia Subjective: No new changes Physical Examination - Vital Signs Temperature: 97.7 F Blood Pressure: 128/60 Pulse: 80 Respirations: 16 Pulse Ox (%): 99 - Physical Exam General: Alert, In no apparent distress, Oriented x3 HEENT: Atraumatic, Normocephalic Neck: Supple, 2+ carotid pulse no bruit Respiratory: Clear to auscultation bilaterally, Normal air movement Cardiovascular: Regular rate/rhythm, Normal S1 S2 Gastrointestinal: Normal bowel sounds, Soft and benign, Non-distended Musculoskeletal: No clubbing, No swelling Integumentary: No rashes, No breakdown Neurological: Normal speech, Normal strength at 5/5 x4 extr, Normal tone Assessment And Plan - Plan HEATHER-improving -follow repeat today -c/w IVF with bicarb gtt -encourage increase po intake Hypomagnesemia-improving with repletion Metabolic acidemia-deemed due to loss from diarrea.c/w IVF Hypertension-controlled . no need for antihypertensive meds for now.
[2020-04-06 06:10] LABS: Magnesium 2.3 mg/dL (1.8-2.4); Potassium 3.7 mmol/L (3.5-5.1)
[2020-04-06] MEDS ORDERED: LEVOTHYROXINE SOD 0.125 MG TAB PO SCH (06:30)
[2020-04-06] MEDS ORDERED: FERROUS SULFATE 325 MG TAB PO SCH (08:00)
[2020-04-06] MEDS: ENSURE ENLIVE 237 ML CAN PO SCH (08:22)
[2020-04-06] MEDS: JUVEN PACKET PO SCH (08:22)
[2020-04-06 09:23] LABS: Protime INR 1.82
--- NOTE | 2020-04-06 14:00 | P.DS ---
Admission Date: 04/05/20 Discharge Date: 04/06/20 Primary Care Provider: Dr. Sutherland Disposition: ROUTINE DISCHARGE Discharge Condition: GOOD Reason for Admission: Acute Renal Failure, Hypomagnesemia, metabolic acidemia Consultations: nephrology - Problems (1) Hypertension Current Visit: Yes Status: Chronic Qualifiers: Hypertension type: essential hypertension Qualified Code(s): I10 - Essential (primary) hypertension (2) Metabolic acidemia Current Visit: Yes Status: Acute (3) Diarrhea Current Visit: Yes Status: Chronic Qualifiers: Diarrhea type: unspecified type Qualified Code(s): R19.7 - Diarrhea, unspecified (4) Acute renal failure Current Visit: Yes Status: Acute Qualifiers: Acute renal failure type: unspecified Qualified Code(s): N17.9 - Acute kidney failure, unspecified (5) Elevated INR Current Visit: Yes Status: Acute (6) Hypomagnesemia Current Visit: Yes Status: Acute (7) H/O mechanical aortic valve replacement Current Visit: No Status: Chronic (8) Status post colostomy Current Visit: No Status: Chronic Brief History of Present Illness: This is an 79-year-old female with a history of high cholesterol, hypertension, colostomy and aortic valve replacement that presented to the emergency room after being called by her primary care physician for abnormal lab results. Primary care physician stated that her potassium and creatinine were also abnormal. Family stated that patient has been admitted before for dehydration along with hypokalemia and hypomagnesemia in the past. Patient was worked up in the emergency room and found to have a sodium of 133, potassium 5.2, chloride 108, bicarb 17, BUN 55, creatinine 2.96, glucose 118. Patient a month ago had fairly normal renal function. Patient had a white cell count of 12.9, hemoglobin 10.1, hematocrit 30.1, platelets 339. Patient also found to have a magnesium level of 0.9. Family member stated that patient has had problems ever since her colostomy was placed. Over the last 24 hours, they have noticed that she has had decreased urination. She has had frequent persistent diarrhea and has been seen by GI and general surgery for this. Currently on Lomotil and Imodium daily. Hospital Course: Acute renal failure 2/2 diarrhea: Nephrology has been consulted. Cr was initially 2.96 and is now 1.3. Sodium, K+, Cl, HCO3 and Mg have all improved. Patient hydrated with IVF with bicarb gtt. Patient received nutrition consult with Luc and Steff Enlive. Renal pelvic ultrasound completed. Patient sees outpatient GI and GI surgery and has been prescribed Imodium and Lomotil. Watery diarrhea has persisted, but kidney function has improved. Will need to continue with GI on outpatient basis. Will continue on bicarb supplementation until diarrhea is resolved. Will see nephrology outpatient. Elevated INR INR was 3.84 and coumadin was held. INR is now 1.82. can continue coumadin at discharge. Hypomagnesemia Patient had moderate to severe hypomagnesemia. Magnesium replaced and now resolved. Hypertension Home medications held due to low BP. patient's BP now improved. Vital Signs/Physical Exam: Temp Pulse Resp BP Pulse Ox 97.6 F 78 18 128/60 100 04/06/20 12:00 04/06/20 12:00 04/06/20 12:00 04/06/20 12:00 04/06/20 12:00 General: Alert, In no apparent distress, Oriented x3, Cooperative HEENT: Atraumatic, Normocephalic, PERRLA, Mucous membr. moist/pink, EOMI, Sclerae nonicteric Neck: Supple, 2+ carotid pulse no bruit, JVD not distended, No Thyromegaly, No LAD Respiratory: Clear to auscultation bilaterally, Normal air movement Cardiovascular: No edema, Normal pulses, Regular rate/rhythm, Normal S1 S2, No gallops, No rubs, No murmurs Capillary refill: <2 Seconds Gastrointestinal: Normal bowel sounds, Soft and benign, Non-distended, No ascites, No tenderness, No masses, No rebound, No guarding, Other (colostomy bag site intact, has been changed recently) Musculoskeletal: No clubbing, No swelling, No contractures, No erythema, No tenderness, No warmth Integumentary: No rashes, No breakdown, No significant lesion, No tenderness/swelling, No erythema, No warmth, No cyanosis Neurological: Normal gait, Normal speech, Normal strength at 5/5 x4 extr, Normal tone, Sensation intact, Cranial nerves 3-12 intact, Normal affect Lymphatics: No axilla or inguinal lymphadenopathy Laboratory Data at Discharge: WBC 10.70 K/uL (4.3-10.9) D 04/05/20 05:17 Hgb 8.4 g/dL (12.0-15.0) L 04/05/20 05:17 Hct 25.1 % (36.0-45.0) L D 04/05/20 05:17 Plt Count 274 K/uL (152-406) 04/05/20 05:17 PT 21.1 SECONDS (9.5-12.5) H 04/06/20 09:13 INR 1.82 04/06/20 09:13 Sodium 137 mmol/L (136-145) 04/06/20 05:38 Potassium 3.7 mmol/L (3.5-5.1) 04/06/20 05:38 BUN 41 mg/dL (7-18) H 04/06/20 05:38 Creatinine 1.30 mg/dL (0.55-1.3) 04/06/20 05:38 Glucose 99 mg/dL (74-106) 04/06/20 05:38 Uric Acid 11.2 mg/dL (2.6-6.0) H 04/05/20 05:17 Phosphorus 3.8 mg/dL (2.5-4.9) 04/05/20 05:17 Magnesium 2.3 mg/dL (1.8-2.4) D 04/06/20 05:38 Total Bilirubin 0.4 mg/dL (0.2-1.0) 04/04/20 21:15 AST 60 U/L (15-37) H 04/04/20 21:15 ALT 117 U/L (12-78) H 04/04/20 21:15 Alkaline Phosphatase 195 U/L (45-117) H 04/04/20 21:15 Home Medications: Metoprolol Tartrate [Lopressor*] 25 mg PO BID 02/23/20 Mirtazapine [Remeron*] 15 mg PO BEDTIME 02/23/20 Warfarin Sodium [Coumadin*] 2.5 mg PO DAILY AT SUPPER 02/23/20 Atorvastatin Calcium 1 tab PO DAILY 04/05/20 Diphenox/Atropine [Lomotil*] 2 tab PO BID 04/05/20 Diphenoxylate HCl/Atropine [Diphenoxylate-Atrop 2.5-0.025] 2 tab PO DAILY 04/05/20 Ferrous Sulfate [Iron] 325 mg PO DAILY 04/05/20 Levothyroxine [Synthroid*] 1 tab PO DAILY 04/05/20 Loperamide [Imodium*] 2 tab PO QID 04/05/20 Megestrol Acetate 1 tab PO QID 04/05/20 Sucralfate [Carafate*] 1 gm PO QID 04/05/20 Sodium Bicarbonate 650 mg PO BID 14 Days #28 tablet 04/06/20 New Medications: Sodium Bicarbonate 650 mg PO BID 14 Days #28 tablet Physician Discharge Instructions: please follow up with GI outpatient for further control of diarrhea please follow up with Dr. Isaacs (nephrology outpatient) within 1 week for further monitoring. continue home medications hold blood pressure medications for SBP <110 Diet: Regular Followup: Jean Sutherland MD [Primary Care Provider] - Time spent managing pt's care (in minutes): 70
[2020-04-06 16:58] VITALS: BP 108/55; TEMP 97.8
[2020-04-07 11:54] LABS: C.diff Antigen/Toxin Ag neg : Tox neg (NEG : NEG)
== END 2020-04-06 17:15 | disposition home or self-care (01) | DRG 683 ==
LOC: ER 17:48 → ERHOLD 04-05 03:14 → 2ND 04-05 08:21
PROVIDERS: ADMIT Internal Medicine; ATTEND Internal Medicine
DX: N17.9 Acute kidney failure, unspecified (principal); R64 Cachexia; E87.2 Acidosis; I10 Essential (primary) hypertension; E03.9 Hypothyroidism, unspecified; I25.10 Atherosclerotic heart disease of native coronary artery without angina pectoris; E11.9 Type 2 diabetes mellitus without complications; E87.5 Hyperkalemia; K52.9 Noninfective gastroenteritis and colitis, unspecified; E83.42 Hypomagnesemia; E78.5 Hyperlipidemia, unspecified; R79.1 Abnormal coagulation profile; Z88.5 Allergy status to narcotic agent; Z79.890 Hormone replacement therapy; Z79.82 Long term (current) use of aspirin; Z79.01 Long term (current) use of anticoagulants; Z79.899 Other long term (current) drug therapy; Z95.1 Presence of aortocoronary bypass graft; Z90.49 Acquired absence of other specified parts of digestive tract; Z90.710 Acquired absence of both cervix and uterus; Z95.2 Presence of prosthetic heart valve; Z68.20 Body mass index [BMI] 20.0-20.9, adult; Z20.822 Contact with and (suspected) exposure to COVID-19
CPT/HCPCS: 36415; 51702; 76770; 80048; 80076; 82150; 82550; 82728; 83540; 83690; 83735; 83880; 84100; 84443; 84466; 84484; 84550; 85025; 85610; 86140; 87045; 87046; 87177; 87209; 87324; 87449; 93005; 96361; 96365; 96367; 96375; 99285; J0610; J3010; J3475; J7030; J7040; U0003

== ENCOUNTER 2020-04-22 13:16 | Inpatient (IN) | payer OTHER, MEDICARE ==
--- OUTSIDE RECORDS SUMMARY | 2020-04-22 13:28 | XMS REPORT | Continuity of Care Document ---
:1940 Author Organization [facility] t Address [address] [place] [address] Care Team Providers Name Role Phone Doctor Unassigned, Name Attending Clinician Unavailable Ellyn RN Attending Clinician Unavailable Payers Payer Name Policy Type Policy Number Effective Date Expiration Date S ource Problems This patient has no known problems. Allergies, Adverse Reactions, Alerts Allergy Allergy Status Severity Reaction(s) Onset Inactive Treating Comm ents Source Name Type Date Date Clinician morphine DA Active [facility] 02-24 00:: [address] codeine DA Active [facility] 02-24 00:00: [address] No Known DA Active U 2019-02 [facility] 1 s 00:00: [address] No Known DA Active U 2020- [facility] 029 s 00:: [address] No Known DA Active U 2019- [facility] 0-16 s 00:: [address] Medications This patient has no known medications. Procedures This patient has no known procedures. Encounters Start End Encounter Admission Attending Care Care Encounter Source Date/Time Date/Time Type Type Clinicians Facility Department ID 2020-03-04 2020-03-04 Orders Doctor GIORGI [id number] 00:00:00 00:00:00 Only Unassigned, DESEAN 350.1.13.10 [place] [facility] 4.2.7.2.686 [id number] 2020-02-22 2020-02-22 Transition Zuhair Ragland [id number] 00:00:00 00:00:00 of Care Lisa Oneal 350.1.13.10 [place] 4.2.7.2.686 [id number] Results Test Description Test Time Test Comments Results Result Comments Source TRANSFERRRIN 2020-03-01 07:17:00 Test Item Value Reference Range Interpretation Comme nts TRANSFERRRIN (test code = 130 mg/dL 192-364 L Pe rformed At: [facility] TRANSF) [address] [id number] Trinidad MD Ph:[phone] PROTHROMBIN [id number] 16:15:00 Test Item Value Reference Range Interpretation [...] STAFF: VELIA 02/29/20 AT 1359 BY YASHIRAERPROTHROMBIN [id number] 11:04:00 Test Item Value Reference Range Interpretation [...] eric embolism. 3.0 - 4.5 Comments to Machine Lay Out Worker: CHECK AT LEAST 30 MIN AFTER AFTER FFP INFUSIONPROTHROMBIN [id number] 08:05:00 Test Item Value Reference Range Interpretation [...] syste eric embolism. 3.0 - 4.5 PROTHROMBIN [id number] 16:53:00 Test Item Value Reference Range Interpretation [...] eric embolism. 3.0 - 4.5 BASIC METABOLIC [id number] 09:10:00 Test Item Value Reference Range Interpretation [...] code = 8.6 MG/DL 8.4-10.2 N CA) [id number] 09:10:00 Test Item Value Reference Range Interpretation [...] 21 % 12-57 N FESAT) BASIC METABOLIC [id number] 07:10:00 Test Item Value Reference Range Interpretation [...] code = 8.6 MG/DL 8.4-10.2 N CA) [id number] 07:10:00 Test Item Value Reference Range Interpretation Comments FERRITIN (test code = MARSHALL) NG/ML 11.1-264 PROTHROMBIN [id number] 07:07:00 Test Item Value Reference Range Interpretation [...] eric embolism. 3.0 - 4.5 BASIC METABOLIC [id number] 07:04:00 Test Item Value Reference Range Interpretation [...] CALCIUM (test code = MG/DL 8.7-9.7 CA) [id number] 07:04:00 Test Item Value Reference Range Interpretation Comments FERRITIN (test code = MARSHALL) NG/ML 11.1-264 BASIC METABOLIC [id number] 07:01:00 Test Item Value Reference Range Interpretation [...] CALCIUM (test code = CA) MG/DL 8.7-9.7 [id number] 07:01:00 Test Item Value Reference Range Interpretation Comments FERRITIN (test code = MARSHALL) NG/ML 11.1-264 BASIC METABOLIC [id number] 07:01:00 Test Item Value Reference Range Interpretation [...] CALCIUM (test code = CA) MG/DL 8.7-9.7 [id number] 07:01:00 Test Item Value Reference Range Interpretation Comments FERRITIN (test code = MARSHALL) NG/ML 11.1-264 FE W/TOTAL IRON BINDING CAP.2020-02-28 07:00:00 Test Item Value Reference Range Interpretation Comments SERUM IRON (test code = IRON) 43 MCG/DL 37-170 N TOTAL IRON BINDING CAPACITY (test MCG/DL 265-497 code = TIBC) IRON SATURATION (test code = FESAT) % 12-57 RETICULOCYTE [id number] 06:35:00 Test Item Value Reference Range Interpretation Comments RETICULOCYTE COUNT (test code = RETICT) 1.2 % 0.5-1.5 N CBC W/AUTO [id number] 06:33:00 Test Item Value Reference Range Interpretation [...] = 0.00 K/mm3 0.0-0.1 N NRBC#) PROTHROMBIN [id number] 21:27:00 Test Item Value Reference Range Interpretation [...] 02/27/20 AT 1718 BY Ashutosh Cleveland BEDSIDE [id number] 19:55:00 Test Item Value Reference Range Interpretation Comments GLUCOSE BEDSIDE TESTING (test code = 91 MG/DL 60-99 N GLUBED) [id number] 15:47:00 Test Item Value Reference Range Interpretation Comments PREALBUMIN (test code = PREALB) 13 MG/DL 17-42 L UR SMEAR EOSINOPHIL [id number] 07:16:00 Test Item Value Reference Range Interpretation Comments UR SMEAR EOSINOPHIL COUNT (test code = NONE RARE EOSCTU) BASIC METABOLIC [id number] 07:04:00 Test Item Value Reference Range Interpretation [...] 8.4 MG/DL 8.4-10.2 N CA) CBC W/AUTO [id number] 06:56:00 Test Item Value Reference Range Interpretation [...] 0.00 K/mm3 0.0-0.1 N NRBC#) BASIC METABOLIC [id number] 06:27:00 Test Item Value Reference Range Interpretation [...] (test code = CA) MG/DL 8.7-9.7 PROTHROMBIN [id number] 06:24:00 Test Item Value Reference Range Interpretation [...] Mechanical prosthesis hear t valves, recurrent syste eirc embolism. 3.0 - 4.5 UR SODIUM [id number] 06:06:00 Test Item Value Reference Range Interpretation Comments UR SODIUM RANDOM (test code = RENETTA) 111 MMOL/L 27-287 N UR PROTEIN [id number] 06:06:00 Test Item Value Reference Range Interpretation Comments UR PROTEIN RANDOM (test code = 43 MG/DL 0-11.9 H PROTU) UR CREATININE [id number] 06:06:00 Test Item Value Reference Range Interpretation Comments UR CREATININE RANDOM (test code = 83.4 CREATU) UR OSMOLALITY [id number] 06:06:00 Test Item Value Reference Range Interpretation Comments UR OSMOLALITY RANDOM (test code 469.5 MOS/KG 300-1200 N = OSMOU) UR SODIUM [id number] 05:33:00 Test Item Value Reference Range Interpretation Comments UR SODIUM RANDOM (test code = RENETTA) 111 MMOL/L 27-287 N UR PROTEIN [id number] 05:33:00 Test Item Value Reference Range Interpretation Comments UR PROTEIN RANDOM (test code = 43 MG/DL 0-11.9 H PROTU) UR CREATININE [id number] 05:33:00 Test Item Value Reference Range Interpretation Comments UR CREATININE RANDOM (test code = 83.4 CREATU) UR OSMOLALITY [id number] 05:33:00 Test Item Value Reference Range Interpretation Comments UR OSMOLALITY RANDOM (test code = MOS/KG 300-1200 OSMOU) UR SODIUM [id number] 05:30:00 Test Item Value Reference Range Interpretation Comments UR SODIUM RANDOM (test code = RENETTA) 111 MMOL/L 27-287 N UR PROTEIN [id number] 05:30:00 Test Item Value Reference Range Interpretation Comments UR PROTEIN RANDOM (test code = 43 MG/DL 0-11.9 H PROTU) UR CREATININE [id number] 05:30:00 Test Item Value Reference Range Interpretation Comments UR CREATININE RANDOM (test code = CREATU) UR OSMOLALITY [id number] 05:30:00 Test Item Value Reference Range Interpretation Comments UR OSMOLALITY RANDOM (test code = MOS/KG 300-1200 OSMOU) UR SODIUM [id number] 05:29:00 Test Item Value Reference Range Interpretation Comments UR SODIUM RANDOM (test code = RENETTA) 111 MMOL/L 27-287 N UR PROTEIN [id number] 05:29:00 Test Item Value Reference Range Interpretation Comments UR PROTEIN RANDOM (test code = PROTU) MG/DL 0-11.9 UR CREATININE [id number] 05:29:00 Test Item Value Reference Range Interpretation Comments UR CREATININE RANDOM (test code = CREATU) UR OSMOLALITY [id number] 05:29:00 Test Item Value Reference Range Interpretation Comments UR OSMOLALITY RANDOM (test code = MOS/KG 300-1200 OSMOU) - US RETRO [id number] 22:50:00 [facility] 1940 Sex: F Patient Name: JORGE A HORTA Unit No: [id number] EXAMS: CPT CODE: [id number] US RETRO LTD 22345 Retroperitoneal ultrasound. Location: R16 His tory: Hematuria.. [...] (2249) [id number] Orig Print D/T: S: 02/26/2020 (4168) [facility] NAME: JORGE A HORTA [place] PHYS: LEVY.Edmond - [place] [address] : 1940 AGE: 79 SEX: F LOC: Z.513 A PHONE #: [phone] EXAM DATE: 02/26/2020 STATUS: ADM IN FAX #: [phone] RADIOLOGY NO: PAGE 1 Signed ReportGLUCOSE BEDSIDE [id number] 15:32:00 Test Item Value Reference Range Interpretation Comments GLUCOSE BEDSIDE TESTING (test code = 79 MG/DL 60-99 N GLUBED) LACTIC [id number] 13:01:00 Test Item Value Reference Range Interpretation Comments LACTIC ACID (test code = LACT) 1.3 MMOL/L 0.7-2.1 N GLUCOSE BEDSIDE [id number] 12:21:00 Test Item Value Reference Range Interpretation Comments GLUCOSE BEDSIDE TESTING (test code = 78 MG/DL 60-99 N GLUBED) COMPREHENSIVE METABOLIC [id number] 11:41:00 Test Item Value Reference Range Interpretation [...] H PHOSPHATASE (test code = ALKP) PROTHROMBIN [id number] 11:31:00 Test Item Value Reference Range Interpretation [...] eric embolism. 3.0 - 4.5 CBC W/AUTO [id number] 11:25:00 Test Item Value Reference Range Interpretation [...] 0.00 K/mm3 0.0-0.1 N NRBC#) GLUCOSE BEDSIDE [id number] 08:29:00 Test Item Value Reference Range Interpretation Comments GLUCOSE BEDSIDE TESTING (test code = 72 MG/DL 60-99 N GLUBED) GLUCOSE BEDSIDE [id number] 00:04:00 Test Item Value Reference Range Interpretation Comments GLUCOSE BEDSIDE TESTING (test code = 68 MG/DL 60-99 N GLUBED) PROTHROMBIN [id number] 23:52:00 Test Item Value Reference Range Interpretation [...] 3.0 - 4.5 COVID 19 Asymptomatic IH [id number] 23:42:00 Test Item Value Reference Range Interpretation [...] virus (antigen) in the sample." THYROID STIMULATING [id number] 23:04:00 Test Item Value Reference Range Interpretation Comments THYROID STIMULATING 21.300 MIU/L 0.465-4.68 H Please b e aware that HORMONE (test code = bias re sults for TSH TSH) may occur forpa kamnt who are taking Biotin suppleme nts. GLYCOSYLATED HEMOGLOBIN [id number] 22:37:00 Test Item Value Reference Range Interpretation [...] 70-110 N (test code = MBG) URINALYSIS [id number] 18:24:00 Test Item Value Reference Range Interpretation [...] Culture Chk code = UACULT) Criteria UA [id number] 18:24:00 Test Item Value Reference Range Interpretation Comments UA RBC (test code = RBCU) 50-100 RBC/HPF 0-3 A UA WBC (test code = XWBCU) >100 WBC/HPF 0-5 A UA EPITHELIAL CELLS (test code FEW EPI/HPF FEW = EPIU) UA BACTERIA (test code = MODERATE NONE A XBACU) UA YEAST (test code = YEASTU) FEW #/HPF NONE A URINALYSIS [id number] 18:13:00 Test Item Value Reference Range Interpretation [...] DIPSTICK (test code = 8.0 5.0-9.0 N JA) UA PROTEIN DIPSTICK (test code 100 MG/DL NEGATIVE A = PROU) UA UROBILINIOGEN DIPSTICK NORMAL MG/DL NORMAL (test code = URO) UA NITRITE DIPSTICK (test code NEGATIVE NEGATIVE = GAIL) UA LEUKOCYTE ESTERASE DIPSTICK 500 /mm3 NEGATIVE A (test code = LEUU) UA CULTURE NEEDED? (test code Criteria Culture Chk = UACULT) UA [id number] 18:13:00 Test Item Value Reference Range Interpretation Comments UA RBC (test code = RBCU) RBC/HPF 0-3 UA WBC (test code = XWBCU) WBC/HPF 0-5 UA EPITHELIAL CELLS (test code = EPI/HPF FEW EPIU) UA BACTERIA (test code = XBACU) NONE URINALYSIS [id number] 18:13:00 Test Item Value Reference Range Interpretation [...] code Criteria Culture Chk = UACULT) UA [id number] 18:13:00 Test Item Value Reference Range Interpretation Comments UA RBC (test code = RBCU) RBC/HPF 0-3 UA WBC (test code = XWBCU) WBC/HPF 0-5 UA EPITHELIAL CELLS (test code = EPI/HPF FEW EPIU) UA BACTERIA (test code = XBACU) NONE COMPREHENSIVE METABOLIC [id number] 17:13:00 Test Item Value Reference Range Interpretation [...] RECOLLECTION NEEDED ON 02/25/20 AT 1538 BY [id number]: NOT ENOUGH BLOODNOTIFIED PATIENT CARE STAFF: GIDEON MillanKassandra SAID TO SEND PHELBPHOSPHOROUS 2020-02-25 17:13:00 Test Item Value Reference Range Interpretation Comments PHOSPHOROUS (test code = PHOS) 4.3 MG/DL 2.5-4.5 N RECOLLECTION NEEDED ON 02/25/20 AT 1538 BY Z.LAB.AEM4UDFQZG: NOT ENOUGH BLOODNOTIFIED PATIENT CARE STAFF: GIDEON MillanKassandra SAID TO SEND [id number] 17:13:00 Test Item Value Reference Range Interpretation Comments LIPASE (test code = LIP) 313 UNITS/L 23-300 H RECOLLECTION NEEDED ON 02/25/20 AT 1538 BY Z.LAB.AUX0HKGOMU: NOT ENOUGH BLOODNOTIFIED PATIENT CARE STAFF: GIDEON MillanKassandra SAID TO SEND PHELBMAGNESIUM 2020-02-25 17:13:00 Test Item Value Reference Range Interpretation Comments MAGNESIUM (test code = MAG) 1.7 MG/DL 1.6-2.3 N RECOLLECTION NEEDED ON 02/25/20 AT 1538 BY Z.LAB.EEM4RGUCKF: NOT ENOUGH BLOODNOTIFIED PATIENT CARE STAFF: GIDEON MillanKassandra SAID TO SEND PHELBTROPONIN-I 2020-02-25 17:13:00 Test Item Value Reference Range Interpretation Comments TROPONIN-I (test code = TROPI) < 0.012 NG/ML 0.012-0.033 L RECOLLECTION NEEDED ON 02/25/20 AT 1538 BY Z.LAB.EQK4EECPRM: NOT ENOUGH BLOODNOTIFIED PATIENT CARE STAFF: GIDEON MillanKassandra SAID TO SEND PHELBCOMPREHENSIVE METABOLIC [id number] 16:32:00 Test Item Value Reference Range Interpretation [...] anemia ) with specific assays on the Fevers 5600 of which Total Protein is one [...] RECOLLECTION NEEDED ON 02/25/20 AT 1538 BY Z.LAB.TXI9OZWKDR: NOT ENOUGH BLOODNOTIFIED PATIENT CARE STAFF: GIDEON Davis SAID TO SEND PHELBPHOSPHOROUS 2020-02-25 16:32:00 Test Item Value Reference Range Interpretation Comments PHOSPHOROUS (test code = PHOS) 4.3 MG/DL 2.5-4.5 N RECOLLECTION NEEDED ON 02/25/20 AT 1538 BY Z.LAB.IHF6ZAJJET: NOT ENOUGH BLOODNOTIFIED PATIENT CARE STAFF: GIDEON Davis SAID TO SEND [id number] 16:32:00 Test Item Value Reference Range Interpretation Comments LIPASE (test code = LIP) 313 UNITS/L 23-300 H RECOLLECTION NEEDED ON 02/25/20 AT 1538 BY Z.LAB.HJE7LSSJAC: NOT ENOUGH BLOODNOTIFIED PATIENT CARE STAFF: GIDEON MillanKassandra SAID TO SEND PHELBMAGNESIUM 2020-02-25 16:32:00 Test Item Value Reference Range Interpretation Comments MAGNESIUM (test code = MAG) 1.7 MG/DL 1.6-2.3 N RECOLLECTION NEEDED ON 02/25/20 AT 1538 BY Z.LAB.SOS9AHCYFU: NOT ENOUGH BLOODNOTIFIED PATIENT CARE STAFF: GIDEON MillanKassandra SAID TO SEND PHELBTROPONIN-I 2020-02-25 16:32:00 Test Item Value Reference Range Interpretation Comments TROPONIN-I (test code = TROPI) NG/ML 0.0-0.045 RECOLLECTION NEEDED ON 02/25/20 AT 1538 BY Z.LAB.ETG5GDDRGY: NOT ENOUGH BLOODNOTIFIED PATIENT CARE STAFF: GIDEON MillanKassandra SAID TO SEND PHELBCOMPREHENSIVE METABOLIC [id number] 16:30:00 Test Item Value Reference Range Interpretation [...] RECOLLECTION NEEDED ON 02/25/20 AT 1538 BY JAMESON.EXA5FOYMLS: NOT ENOUGH BLOODNOTIFIED PATIENT CARE STAFF: GIDEON Davis SAID TO SEND PHELBPHOSPHOROUS 2020-02-25 16:30:00 Test Item Value Reference Range Interpretation Comments PHOSPHOROUS (test code = PHOS) MG/DL 2.5-4.5 RECOLLECTION NEEDED ON 02/25/20 AT 1538 BY JAMESON.QIO0JILCJW: NOT ENOUGH BLOODNOTIFIED PATIENT CARE STAFF: GIDEON Davis SAID TO SEND [id number] 16:30:00 Test Item Value Reference Range Interpretation Comments LIPASE (test code = LIP) UNITS/L 23-300 RECOLLECTION NEEDED ON 02/25/20 AT 1538 BY Z.LAB.WUR7VOGUUJ: NOT ENOUGH BLOODNOTIFIED PATIENT CARE STAFF: GIDEON MillanKassandra SAID TO SEND PHELBMAGNESIUM 2020-02-25 16:30:00 Test Item Value Reference Range Interpretation Comments MAGNESIUM (test code = MAG) MG/DL 1.6-2.3 RECOLLECTION NEEDED ON 02/25/20 AT 1538 BY Z.LAB.OQY7CHPNWU: NOT ENOUGH BLOODNOTIFIED PATIENT CARE STAFF: GIDEON MillanKassandra SAID TO SEND PHELBTROPONIN-I 2020-02-25 16:30:00 Test Item Value Reference Range Interpretation Comments TROPONIN-I (test code = TROPI) NG/ML 0.0-0.045 RECOLLECTION NEEDED ON 02/25/20 AT 1538 BY Z.LAB.HYF9WMIEOR: NOT ENOUGH BLOODNOTIFIED PATIENT CARE STAFF: GIDEON MillanKassandra SAID TO SEND PHELB- XR CHEST 1V 2020-02-25 15:32:00 [facility] : 1940 Sex: F Patient Name: JORGE A HORTA Unit No: [id number] EXAMS: CPT CODE: [id number] XR CHEST 1V 68339 Location: T 18 CHEST X-RAY: Portable AP [...] [id number] Orig Print D/T: S: 02/25/2020 (1535) [facility] NAME: JORGE A HORTA [id number] [address] PHYS: [place] [address] : 1940 AGE: 79 SEX: F LOC: VICENTE PHONE #: [phone] EXAM DATE: 02/25/2020 STATUS: REG ER FAX #: [phone] RADIOLOGY NO: PAGE 1 Signed ReportCBC W/O [id number] 15:20:00 Test Item Value Reference Range Interpretation [...] 0.00 K/mm3 0.0-0.1 N NRBC#) GLUCOSE BEDSIDE [id number] 11:55:00 Test Item Value Reference Range Interpretation Comments GLUCOSE BEDSIDE TESTING (test code 132 MG/DL 60-99 H = GLUBED) GLUCOSE BEDSIDE [id number] 11:04:00 Test Item Value Reference Range Interpretation Comments GLUCOSE BEDSIDE TESTING (test code = 74 MG/DL 60-99 N GLUBED) GLUCOSE BEDSIDE [id number] 07:38:00 Test Item Value Reference Range Interpretation Comments GLUCOSE BEDSIDE TESTING (test code 110 MG/DL 60-99 H = GLUBED) BASIC METABOLIC [id number] 06:32:00 Test Item Value Reference Range Interpretation [...] 8.1 MG/DL 8.4-10.2 L CA) BASIC METABOLIC [id number] 06:31:00 Test Item Value Reference Range Interpretation [...] code = MG/DL 8.7-9.7 CA) BASIC METABOLIC [id number] 06:29:00 Test Item Value Reference Range Interpretation [...] code = CA) MG/DL 8.7-9.7 BASIC METABOLIC [id number] 06:28:00 Test Item Value Reference Range Interpretation [...] (test code = CA) MG/DL 8.7-9.7 PROTHROMBIN [id number] 06:17:00 Test Item Value Reference Range Interpretation [...] eric embolism. 3.0 - 4.5 CBC W/AUTO [id number] 06:12:00 Test Item Value Reference Range Interpretation [...] N NRBC#) - CT ABD PELVIS W/O [id number] 19:52:00 [facility] : 1940 Sex: F Patient Name: JORGE A HORTA Unit No: [id number] EXAMS: CPT CODE: [id number] CT ABD PELVIS W/O CONT 76492 EXAM: CT abdomen and pelvis INDICATION: Post-op bleeding COMPARISON: December 30, 2019 LOCATION: [facility] CT scan of the abdomen and [...] catheter in the pelvis is again identified. 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 [id number] Reported and signed by: Loc Medina MD CC: Nicolas Wiley MD; Ramu Sutherland MD; Rashid Son MD Technologist: Jose Victor RT (R) (CT) CTDI: DLP: Trnscrpt: 01/02/2020 (1951) DoyleR.PMT [facility] NAME: JORGE A HORTA [place] PHYS: Nicolas Gutierrez MD [place] [id number] : 1940 AGE: 79SEX: F LOC: Z.SI06 A PHONE #: [phone] EXAM DATE: 01/02/2020 STATUS: ADM IN FAX #: [phone] RAD #: D/C DT PAGE 2 Signed Report Patient Name: JORGE A HORTA Unit No: [id number] EXAMS: CPT CODE: [id number] CT ABD PELVIS W/O CONT 79940 <Continued> Orig Print D/T: S: 01/02/2020 (1954) [facility] NAME: JORGE A HORTA [place] PHYS: Nicolas Gutierrez MD [place] [id number] : 1940 AGE: 79 SEX: F LOC: Z.SI06 A PHONE #: [phone] EXAM DATE: 01/02/2020 STATUS: ADM IN FAX #: [phone] RAD #: D/C DT PAGE 3 Signed ReportHGB [id number] 16:29:00 Test Item Value Reference Range Interpretation Comments HEMOGLOBIN (test code = HGB) 8.2 G/DL 11.2-14.9 L HEMATOCRIT (test code = HCT) 26.0 % 33.2-43.5 L GLUCOSE BEDSIDE [id number] 16:27:00 Test Item Value Reference Range Interpretation Comments GLUCOSE BEDSIDE TESTING (test code = 59 MG/DL 60-99 L GLUBED) GLUCOSE BEDSIDE [id number] 12:00:00 Test Item Value Reference Range Interpretation Comments GLUCOSE BEDSIDE TESTING (test code 101 MG/DL 60-99 H = GLUBED) HGB [id number] 09:00:00 Test Item Value Reference Range Interpretation Comments HEMOGLOBIN (test code = 6.4 G/DL 11.2-14.9 LL CALL ED TO SUZANNE Lnadis HGB) READBACK ON AT 0900 BY Ilan Loo HEMATOCRIT (test code = 20.5 % 33.2-43.5 L HCT) CBC W/AUTO [id number] 07:51:00 Test Item Value Reference Range Interpretation [...] K/mm3 0.0-0.1 N code = NRBC#) DIFFERENTIAL [id number] 07:51:00 Test Item Value Reference Range Interpretation Comments RBC MORPHOLOGY REQUIRED (test code NORMAL = RBCM) ANISOCYTOSIS (test code = ANISO) SLIGHT NONE PLATELET ESTIMATE (test code = INCREASED ADEQUATE PLTEST) PLATELET MORPHOLOGY (test code = NORMAL NORMAL PLTMORPH) BASIC METABOLIC [id number] 06:22:00 Test Item Value Reference Range Interpretation [...] = 8.3 MG/DL 8.4-10.2 L CA) PROTHROMBIN [id number] 06:22:00 Test Item Value Reference Range Interpretation [...] eric embolism. 3.0 - 4.5 Comments to Machine Lay Out Worker: .BASIC METABOLIC [id number] 06:17:00 Test Item Value Reference Range Interpretation [...] code = CA) MG/DL 8.7-9.7 CBC W/AUTO [id number] 06:16:00 Test Item Value Reference Range Interpretation [...] K/mm3 0.0-0.1 N code = NRBC#) DIFFERENTIAL [id number] 06:16:00 Test Item Value Reference Range Interpretation Comments RBC MORPHOLOGY REQUIRED (test code = RBCM) PLATELET ESTIMATE (test code = PLTEST) ADEQUATE PLATELET MORPHOLOGY (test code = NORMAL PLTMORPH) CBC W/AUTO [id number] 06:16:00 Test Item Value Reference Range Interpretation [...] K/mm3 0.0-0.1 N code = NRBC#) DIFFERENTIAL [id number] 06:16:00 Test Item Value Reference Range Interpretation Comments RBC MORPHOLOGY REQUIRED (test code = RBCM) PLATELET ESTIMATE (test code = PLTEST) ADEQUATE PLATELET MORPHOLOGY (test code = NORMAL PLTMORPH) GLUCOSE BEDSIDE [id number] 21:30:00 Test Item Value Reference Range Interpretation Comments GLUCOSE BEDSIDE TESTING (test code = 87 MG/DL 60-99 N GLUBED) ARTERIAL BLOOD [id number] 17:52:00 Test Item Value Reference Range Interpretation [...] FIO2 (test code = COHBGFFIO2) 30 % PaO2/[id number] 17:52:00 Test Item Value Reference Range Interpretation Comments PaO2/FiO2 (test code = LXT1KRE2) 279.66 mm/Hg GLUCOSE BEDSIDE [id number] 16:23:00 Test Item Value Reference Range Interpretation Comments GLUCOSE BEDSIDE TESTING (test code 108 MG/DL 60-99 H = GLUBED) PROTHROMBIN [id number] 14:43:00 Test Item Value Reference Range Interpretation [...] 01/01/20 AT 1405 BY Chano Clevelandomments to Machine Lay Out Worker: ,GLUCOSE BEDSIDE TESTING 2020-01-01 12:19:00 Test Item Value Reference Range Interpretation Comments GLUCOSE BEDSIDE TESTING (test code 116 MG/DL 60-99 H = GLUBED) GLUCOSE BEDSIDE [id number] 07:47:00 Test Item Value Reference Range Interpretation Comments GLUCOSE BEDSIDE TESTING (test code 109 MG/DL 60-99 H = GLUBED) BASIC METABOLIC [id number] 05:06:00 Test Item Value Reference Range Interpretation [...] 8.5 MG/DL 8.4-10.2 N CA) BASIC METABOLIC [id number] 04:58:00 Test Item Value Reference Range Interpretation [...] code = CA) MG/DL 8.7-9.7 GLUCOSE BEDSIDE [id number] 20:12:00 Test Item Value Reference Range Interpretation Comments GLUCOSE BEDSIDE TESTING (test code 119 MG/DL 60-99 H = GLUBED) GLUCOSE BEDSIDE [id number] 15:55:00 Test Item Value Reference Range Interpretation Comments GLUCOSE BEDSIDE TESTING (test code 134 MG/DL 60-99 H = GLUBED) CBC W/O [id number] 11:34:00 Test Item Value Reference Range Interpretation [...] K/mm3 0.0-0.1 N code = NRBC#) DIFFERENTIAL [id number] 11:34:00 Test Item Value Reference Range Interpretation Comments RBC MORPHOLOGY REQUIRED (test code NORMAL = RBCM) POLYCHROMASIA (test code = POLC) FEW NONE PLATELET ESTIMATE (test code = INCREASED ADEQUATE PLTEST) PLATELET MORPHOLOGY (test code = NORMAL NORMAL PLTMORPH) WBC [id number] 11:34:00 Test Item Value Reference Range Interpretation [...] MON) 4.9 % 0-11 N BASIC METABOLIC [id number] 11:28:00 Test Item Value Reference Range Interpretation [...] code = 8.7 MG/DL 8.4-10.2 N CA) [id number] 11:28:00 Test Item Value Reference Range Interpretation Comments VANCOMYCIN (test code = VANCO) 14.3 mcg/ML 5.0-26.0 CBC W/O [id number] 11:09:00 Test Item Value Reference Range Interpretation [...] K/mm3 0.0-0.1 N code = NRBC#) DIFFERENTIAL [id number] 11:09:00 Test Item Value Reference Range Interpretation Comments RBC MORPHOLOGY REQUIRED (test code = RBCM) PLATELET ESTIMATE (test code = PLTEST) ADEQUATE PLATELET MORPHOLOGY (test code = NORMAL PLTMORPH) WBC [id number] 11:09:00 Test Item Value Reference Range Interpretation Comments TOTAL CELLS COUNTED (test code = TCC) #CELLS SEGMENTED NEUTROPHILS (test code = % 36.2-73.8 SEG) LYMPHOCYTE (test code = LYMPH) % 12.9-45.1 MONOCYTE (test code = MON) % 0-11 CBC W/AUTO [id number] 11:09:00 Test Item Value Reference Range Interpretation [...] K/mm3 0.0-0.1 N code = NRBC#) WBC [id number] 11:09:00 Test Item Value Reference Range Interpretation Comments RBC MORPHOLOGY REQUIRED (test code = RBCM) TOTAL CELLS COUNTED (test code = TCC) #CELLS SEGMENTED NEUTROPHILS (test code = % 36.2-73.8 SEG) LYMPHOCYTE (test code = LYMPH) % 12.9-45.1 MONOCYTE (test code = MON) % 0-11 PLATELET ESTIMATE (test code = ADEQUATE PLTEST) PLATELET MORPHOLOGY (test code = NORMAL PLTMORPH) ARTERIAL BLOOD [id number] 11:00:00 Test Item Value Reference Range Interpretation [...] FIO2 (test code = 21 % COHBGFFIO2) PaO2/[id number] 11:00:00 Test Item Value Reference Range Interpretation Comments PaO2/FiO2 (test code = GIQ5XVE9) mm/Hg ARTERIAL BLOOD [id number] 11:00:00 Test Item Value Reference Range Interpretation [...] FIO2 (test code = 21 % COHBGFFIO2) PaO2/[id number] 11:00:00 Test Item Value Reference Range Interpretation Comments PaO2/FiO2 (test code = EIN7DHW1) 297.61 mm/Hg GLUCOSE BEDSIDE [id number] 10:52:00 Test Item Value Reference Range Interpretation Comments GLUCOSE BEDSIDE TESTING (test code 167 MG/DL 60-99 H = GLUBED) GLUCOSE BEDSIDE [id number] 07:30:00 Test Item Value Reference Range Interpretation Comments GLUCOSE BEDSIDE TESTING (test code 148 MG/DL 60-99 H = GLUBED) GLUCOSE BEDSIDE [id number] 20:36:00 Test Item Value Reference Range Interpretation Comments GLUCOSE BEDSIDE TESTING (test code 139 MG/DL 60-99 H = GLUBED) GLUCOSE BEDSIDE [id number] 16:00:00 Test Item Value Reference Range Interpretation Comments GLUCOSE BEDSIDE TESTING (test code 126 MG/DL 60-99 H = GLUBED) [id number] 12:30:00 Test Item Value Reference Range Interpretation Comments VANCOMYCIN (test code = VANCO) 8.3 mcg/ML 5.0-26.0 N GLUCOSE BEDSIDE [id number] 11:19:00 Test Item Value Reference Range Interpretation Comments GLUCOSE BEDSIDE TESTING (test code 118 MG/DL 60-99 H = GLUBED) GLUCOSE BEDSIDE [id number] 07:49:00 Test Item Value Reference Range Interpretation Comments GLUCOSE BEDSIDE TESTING (test code 106 MG/DL 60-99 H = GLUBED) - CT ABD PELVIS W/[id number] 07:42:00 [facility] : 1940 Sex: F Patient Name: JORGE A HORTA Unit No: [id number] EXAMS: CPT CODE: [id number] CT ABD PELVIS W/CONT 87234 HISTORY: Persistent WBC EXAM TYPE: CT abdomen [...] No aneurysmal dilatation. Lymph nodes: No adenopathy. [facility] NAME: JORGE A HORTA [id number] [address] PHYS: TSARodolfo Payne MD [address] [address] : 1940 AGE: 79 SEX: F LOC: Z.SI06 A PHONE #: [phone] EXAM DATE: 12/30/2019 STATUS: ADM IN FAX #: [phone] RAD #: D/C DT PAGE 1 Signed Report (CONTINUED) Patient Name: JORGE A HORTA Unit No: [id number] EXAMS: CPT CODE: [id number] CT ABD PELVIS W/CONT 85918 <Continued> Peritoneum/retroperitoneum: Small volume abdominal ascites, new [...] Reported and signed by: Lizzy Ryan MD [facility] NAME: JORGE A HORTA [id number] [address] PHYS: [id number] Rodolfo De La Torre MD [address] [place] [address] : 1940 AGE: 79 SEX: F LOC: Z.SI06 A PHONE #: [phone] EXAM DATE: 12/30/2019 STATUS: ADM IN FAX #: [phone] RAD #: D/C DT PAGE 2 Signed Report (CONTINUED) Patient Name: JORGE A HORTA Unit No: [id number] EXAMS: CPT CODE: [id number] CT ABD PELVIS W/CONT 99891 <Continued> CC: Tevin Samuels; Ramu Sutherland MD; Rodolfo Dillon MD Technologist: Cole Castano CTDI: DLP: Trnscrpt: 12/30/2019 (0742) [email or web address] [facility] NAME: JORGE A HORTAmond PHYS: [place] [address] : 1940 AGE: 79 SEX: F LOC: Z.SI06 A PHONE #: [phone] EXAM DATE: 12/30/2019 STATUS: ADM IN FAX #: [phone] RAD #: D/C DT PAGE 3 Signed Report Patient Name: JORGE A HORTA Unit No: [id number] EXAMS: CPT CODE: [id number] CT ABD PELVIS W/CONT 43801 <Continued> Orig Print D/T: S: 12/30/2019 (0745) [facility] NAME: JORGE A HORTA [address] PHYS: [place] [address] : 1940 AGE: 79 SEX: F LOC: Z.SI06 A PHONE #: [phone] EXAM DATE: 12/30/2019 STATUS: ADM IN FAX #: [phone] RAD #: D/C DT PAGE 4 Signed ReportBASIC METABOLIC [id number] 05:39:00 Test Item Value Reference Range Interpretation [...] 8.1 MG/DL 8.4-10.2 L CA) BASIC METABOLIC [id number] 05:25:00 Test Item Value Reference Range Interpretation [...] code = MG/DL 8.7-9.7 CA) BASIC METABOLIC [id number] 05:23:00 Test Item Value Reference Range Interpretation [...] code = CA) MG/DL 8.7-9.7 BASIC METABOLIC [id number] 05:22:00 Test Item Value Reference Range Interpretation [...] code = CA) MG/DL 8.7-9.7 CBC W/AUTO [id number] 05:17:00 Test Item Value Reference Range Interpretation [...] = 0.00 K/mm3 0.0-0.1 N NRBC#) DIFFERENTIAL [id number] 05:17:00 Test Item Value Reference Range Interpretation Comments RBC MORPHOLOGY REQUIRED (test code = RBCM) PLATELET ESTIMATE (test code = PLTEST) ADEQUATE PLATELET MORPHOLOGY (test code = NORMAL PLTMORPH) CBC W/AUTO [id number] 05:17:00 Test Item Value Reference Range Interpretation [...] = 0.00 K/mm3 0.0-0.1 N NRBC#) DIFFERENTIAL [id number] 05:17:00 Test Item Value Reference Range Interpretation Comments RBC MORPHOLOGY REQUIRED (test code = RBCM) PLATELET ESTIMATE (test code = PLTEST) ADEQUATE PLATELET MORPHOLOGY (test code = NORMAL PLTMORPH) ARTERIAL BLOOD [id number] 03:21:00 Test Item Value Reference Range Interpretation [...] FIO2 (test code = 32 % COHBGFFIO2) PaO2/[id number] 03:21:00 Test Item Value Reference Range Interpretation Comments PaO2/FiO2 (test code = KLH6FDC8) mm/Hg ARTERIAL BLOOD [id number] 03:21:00 Test Item Value Reference Range Interpretation [...] FIO2 (test code = 32 % COHBGFFIO2) PaO2/[id number] 03:21:00 Test Item Value Reference Range Interpretation Comments PaO2/FiO2 (test code = ZCC4WLR1) 295.93 mm/Hg GLUCOSE BEDSIDE [id number] 20:10:00 Test Item Value Reference Range Interpretation Comments GLUCOSE BEDSIDE TESTING (test code = 80 MG/DL 60-99 N GLUBED) GLUCOSE BEDSIDE [id number] 17:00:00 Test Item Value Reference Range Interpretation Comments GLUCOSE BEDSIDE TESTING (test code = 99 MG/DL 60-99 N GLUBED) ARTERIAL BLOOD [id number] 16:38:00 Test Item Value Reference Range Interpretation [...] FIO2 (test code = COHBGFFIO2) 36 % PaO2/[id number] 16:38:00 Test Item Value Reference Range Interpretation Comments PaO2/FiO2 (test code = YOQ1TCS0) mm/Hg ARTERIAL BLOOD [id number] 16:38:00 Test Item Value Reference Range Interpretation [...] FIO2 (test code = COHBGFFIO2) 36 % PaO2/[id number] 16:38:00 Test Item Value Reference Range Interpretation Comments PaO2/FiO2 (test code = XIV6INJ5) 543.05 mm/Hg ARTERIAL BLOOD [id number] 11:48:00 Test Item Value Reference Range Interpretation [...] FIO2 (test code = COHBGFFIO2) 50 % PaO2/[id number] 11:48:00 Test Item Value Reference Range Interpretation Comments PaO2/FiO2 (test code = HNI1CVW2) mm/Hg ARTERIAL BLOOD [id number] 11:48:00 Test Item Value Reference Range Interpretation [...] FIO2 (test code = COHBGFFIO2) 50 % PaO2/[id number] 11:48:00 Test Item Value Reference Range Interpretation Comments PaO2/FiO2 (test code = CUF9XEM3) 345.40 mm/Hg GLUCOSE BEDSIDE [id number] 11:02:00 Test Item Value Reference Range Interpretation Comments GLUCOSE BEDSIDE TESTING (test code 131 MG/DL 60-99 H = GLUBED) ARTERIAL BLOOD [id number] 10:15:00 Test Item Value Reference Range Interpretation [...] FIO2 (test code = COHBGFFIO2) 40 % PaO2/[id number] 10:15:00 Test Item Value Reference Range Interpretation Comments PaO2/FiO2 (test code = LCJ5EDE5) mm/Hg ARTERIAL BLOOD [id number] 10:15:00 Test Item Value Reference Range Interpretation [...] FIO2 (test code = COHBGFFIO2) 40 % PaO2/[id number] 10:15:00 Test Item Value Reference Range Interpretation Comments PaO2/FiO2 (test code = KFA3HSD5) 270.50 mm/Hg GLUCOSE BEDSIDE [id number] 07:25:00 Test Item Value Reference Range Interpretation Comments GLUCOSE BEDSIDE TESTING (test code 103 MG/DL 60-99 H = GLUBED) CBC W/AUTO [id number] 04:50:00 Test Item Value Reference Range Interpretation [...] = 0.02 K/mm3 0.0-0.1 N NRBC#) DIFFERENTIAL [id number] 04:50:00 Test Item Value Reference Range Interpretation Comments RBC MORPHOLOGY REQUIRED (test code = RBCM) PLATELET ESTIMATE (test code = PLTEST) ADEQUATE PLATELET MORPHOLOGY (test code = NORMAL PLTMORPH) CBC W/AUTO [id number] 04:50:00 Test Item Value Reference Range Interpretation [...] = 0.02 K/mm3 0.0-0.1 N NRBC#) DIFFERENTIAL [id number] 04:50:00 Test Item Value Reference Range Interpretation Comments RBC MORPHOLOGY REQUIRED (test code = RBCM) PLATELET ESTIMATE (test code = PLTEST) ADEQUATE PLATELET MORPHOLOGY (test code = NORMAL PLTMORPH) GLUCOSE BEDSIDE [id number] 20:04:00 Test Item Value Reference Range Interpretation Comments GLUCOSE BEDSIDE TESTING (test code 112 MG/DL 60-99 H = GLUBED) ARTERIAL BLOOD [id number] 17:50:00 Test Item Value Reference Range Interpretation [...] FIO2 (test code = COHBGFFIO2) 40 % PaO2/[id number] 17:50:00 Test Item Value Reference Range Interpretation Comments PaO2/FiO2 (test code = PYE2YWP7) mm/Hg ARTERIAL BLOOD [id number] 17:50:00 Test Item Value Reference Range Interpretation [...] FIO2 (test code = COHBGFFIO2) 40 % PaO2/[id number] 17:50:00 Test Item Value Reference Range Interpretation Comments PaO2/FiO2 (test code = TUQ9RUO2) 283.25 mm/Hg GLUCOSE BEDSIDE [id number] 16:16:00 Test Item Value Reference Range Interpretation Comments GLUCOSE BEDSIDE TESTING (test code 102 MG/DL 60-99 H = GLUBED) CBC W/O [id number] 11:57:00 Test Item Value Reference Range Interpretation [...] K/mm3 0.0-0.1 N code = NRBC#) DIFFERENTIAL [id number] 11:57:00 Test Item Value Reference Range Interpretation Comments RBC MORPHOLOGY REQUIRED (test code = NORMAL RBCM) ANISOCYTOSIS (test code = ANISO) SLIGHT NONE MACROCYTOSIS (test code = MACR) FEW NONE PLATELET ESTIMATE (test code = ADEQUATE ADEQUATE PLTEST) PLATELET MORPHOLOGY (test code = NORMAL NORMAL PLTMORPH) WBC [id number] 11:57:00 Test Item Value Reference Range Interpretation [...] code = GERTRUDIS) 0.8 % 0-0 H [id number] 11:46:00 Test Item Value Reference Range Interpretation Comments VANCOMYCIN (test code = VANCO) 13.8 mcg/ML 5.0-26.0 N UNABLE TO DRAW BLOOD, REASON: CBNNOTIFIED PATIENT CARE STAFF: MOSHE 12/28/19 AT 1048 BY Hannah Busby [facility] [id number] 11:19:00 Test Item Value Reference Range Interpretation [...] FIO2 (test code = COHBGFFIO2) 40 % PaO2/[id number] 11:19:00 Test Item Value Reference Range Interpretation Comments PaO2/FiO2 (test code = EGT0TRO2) mm/Hg ARTERIAL BLOOD [id number] 11:19:00 Test Item Value Reference Range Interpretation [...] FIO2 (test code = COHBGFFIO2) 40 % PaO2/[id number] 11:19:00 Test Item Value Reference Range Interpretation Comments PaO2/FiO2 (test code = KMA8INU1) 279.25 mm/Hg GLUCOSE BEDSIDE [id number] 10:39:00 Test Item Value Reference Range Interpretation Comments GLUCOSE BEDSIDE TESTING (test code 153 MG/DL 60-99 H = GLUBED) ARTERIAL BLOOD [id number] 10:05:00 Test Item Value Reference Range Interpretation [...] FIO2 (test code = COHBGFFIO2) 30 % PaO2/[id number] 10:05:00 Test Item Value Reference Range Interpretation Comments PaO2/FiO2 (test code = OLG2HKD8) 279.66 mm/Hg ARTERIAL BLOOD [id number] 10:04:00 Test Item Value Reference Range Interpretation [...] FIO2 (test code = COHBGFFIO2) 30 % PaO2/[id number] 10:04:00 Test Item Value Reference Range Interpretation Comments PaO2/FiO2 (test code = WSM5BTU8) mm/Hg CBC W/O [id number] 08:07:00 Test Item Value Reference Range Interpretation [...] K/mm3 0.0-0.1 N code = NRBC#) DIFFERENTIAL [id number] 08:07:00 Test Item Value Reference Range Interpretation Comments RBC MORPHOLOGY REQUIRED (test code = RBCM) PLATELET ESTIMATE (test code = PLTEST) ADEQUATE PLATELET MORPHOLOGY (test code = NORMAL PLTMORPH) WBC [id number] 08:07:00 Test Item Value Reference Range Interpretation Comments TOTAL CELLS COUNTED (test code = TCC) #CELLS SEGMENTED NEUTROPHILS (test code = % 36.2-73.8 SEG) LYMPHOCYTE (test code = LYMPH) % 12.9-45.1 MONOCYTE (test code = MON) % 0-11 CBC W/AUTO [id number] 08:07:00 Test Item Value Reference Range Interpretation [...] K/mm3 0.0-0.1 N code = NRBC#) WBC [id number] 08:07:00 Test Item Value Reference Range Interpretation Comments RBC MORPHOLOGY REQUIRED (test code = RBCM) TOTAL CELLS COUNTED (test code = TCC) #CELLS SEGMENTED NEUTROPHILS (test code = % 36.2-73.8 SEG) LYMPHOCYTE (test code = LYMPH) % 12.9-45.1 MONOCYTE (test code = MON) % 0-11 PLATELET ESTIMATE (test code = ADEQUATE PLTEST) PLATELET MORPHOLOGY (test code = NORMAL PLTMORPH) GLUCOSE BEDSIDE [id number] 07:48:00 Test Item Value Reference Range Interpretation Comments GLUCOSE BEDSIDE TESTING (test code 122 MG/DL 60-99 H = GLUBED) GLUCOSE BEDSIDE [id number] 05:14:00 Test Item Value Reference Range Interpretation Comments GLUCOSE BEDSIDE TESTING (test code 131 MG/DL 60-99 H = GLUBED) GLUCOSE BEDSIDE [id number] 05:14:00 Test Item Value Reference Range Interpretation Comments GLUCOSE BEDSIDE TESTING (test code 115 MG/DL 60-99 H = GLUBED) GLUCOSE BEDSIDE [id number] 05:14:00 Test Item Value Reference Range Interpretation Comments GLUCOSE BEDSIDE TESTING (test code 114 MG/DL 60-99 H = GLUBED) GLUCOSE BEDSIDE [id number] 05:12:00 Test Item Value Reference Range Interpretation Comments GLUCOSE BEDSIDE TESTING (test code 156 MG/DL 60-99 H = GLUBED) GLUCOSE BEDSIDE [id number] 05:12:00 Test Item Value Reference Range Interpretation Comments GLUCOSE BEDSIDE TESTING (test code 161 MG/DL 60-99 H = GLUBED) GLUCOSE BEDSIDE [id number] 05:12:00 Test Item Value Reference Range Interpretation Comments GLUCOSE BEDSIDE TESTING (test code = 84 MG/DL 60-99 N GLUBED) GLUCOSE BEDSIDE [id number] 05:12:00 Test Item Value Reference Range Interpretation Comments GLUCOSE BEDSIDE TESTING (test code 103 MG/DL 60-99 H = GLUBED) GLUCOSE BEDSIDE [id number] 05:12:00 Test Item Value Reference Range Interpretation Comments GLUCOSE BEDSIDE TESTING (test code 175 MG/DL 60-99 H = GLUBED) GLUCOSE BEDSIDE [id number] 05:11:00 Test Item Value Reference Range Interpretation Comments GLUCOSE BEDSIDE TESTING (test code 131 MG/DL 60-99 H = GLUBED) COLON SEGMENT RESEC. NOT [id number] 22:42:00 Test Item Value Reference Range Interpretation Comments COLON SEGMENT RESEC. NOT TUMOR (test code = COLONR) RUN DATE: 12/27/19 [place] [facility] PAGE 1 RUN TIME: 2241 Specimen Inquiry RUN USER: INTERFACE PATIENT: JORGE A HORTA LOC: JEF U #: [id number] AGE/SX: 79/F ROOM: [facility] RE11/26/19REG DR: Tevin Samuels MD : 38 BED: A DIS: STATUS: ADM IN TLOC: SPEC #: [id number]:COCHRAN:[id number] RECD: 12/24/19 STATUS: DEVORA ALLEN #: [id number] KEENAN: 12/22/19 [facility] DR: Rashid Son MD ENTERED: 12/24/19 SP TYPE: COLONR OTHR DR: Self Referred Sarah Ovalles DO R2 Joe Higgins MD, Hansaa MD R1 Odalys Juárez MD R1 Adalberto,Donna Sutherland,Ramu Jordan,Raji CORREIA R1 Shell,Jose Alfredo Solis,Andrei Conner,Reuben Wilder,Jason Joseph,Juan Dixon,Ezequiel Smith,Georgina Claudio,Georgette CORREIAORDERED: SURG PATH LVL 5 CODES: R20682 I87894 - SMALL INTESTINE ISCHEMIA, NOS J27633 B11542 - SMALL INTESTINE PERFORATION, NO T59319 C53040 - SMALL INTESTINE NECROSIS, NOS V53446 - COLON, NOS U62291 [id number] - COLON, NOS EXCISION, NOS D82252 - TRANSVERSE COLO GS0178 - LYMPH NODE, NOS COPIES TO: Self Referred Sarah Ovalles DO R2 [address] [place] [address] Joe Higgins MD [address] [facility] [address] [place] [address] Home Bryant MD R1 [address] [place] [address] CONTINUED ON NEXT PAGE RUN DATE: 12/27/19 [place] [facility] PAGE 2 RUN TIME: 2 Specimen Inquiry RUN USER: INTERFACE SPEC #: [id number]:COCHRAN:[id number] PATIENT: JORGE A HORTA #[id number] (Continued) --- COPIES TO: (Continued) Odalys Juárez MD R[address] [address] [place] [address] [place] [address] [facility] [address] [place] [address] Ramu Sutherland MD [address] [place], [place] [address] Raji Jordan MD R1 [address] [place] [address] [place] [address] [facility] [place] [id number] Rashid Son MD [address] [facility] [place], [place] [id number] @[employer] Andrei Solis MD [address] [place] [address] [place] [address] [facility] [address] [place] [address] Jason Wilder MD [address] [facility] [address] [place] [address] [place] [address] [place] [address] CONTINUED ON NEXT PAGE RUN DATE: 12/27/19 [place] [facility] PAGE 3 RUN TIME: 2241 Specimen Inquiry RUN USER: INTERFACE SPEC #: [id number]:COCHRAN:[id number] PATIENT: JORGE A HORTA #[id number] (Continued) --- COPIES TO: (Continued) Ezequiel Dixon [address] [place] [address] Georgina Smith MD [facility] [address] [place] [address] Georgette Cluadio MD [address] [place] [address] PROCEDURES: SURG PATH LVL 5 (12/24/19-1050) TISSUES: A. COLON, NOS - RIGHT AND TRANSVERSE COLON CPT CODES CPT CODE(S): 77436 , , , , , , FINAL [...] CONTINUED ON NEXT PAGE RUN DATE: 12/27/19 [facility] PAGE 4 RUN TIME: 2241 Specimen Inquiry RUN USER: INTERFACE SPEC #: [id number]:COCHRAN:[id number] PATIENT: JORGE A HORAT #[id number] (Continued) --- GROSS DESCRIPTION (Continued) serosal surface. [...] /elizabeth Signed SIGNATURE ON FILE SilvestrelucaXander 12/27/19 2074 END OF REPORT ARTERIAL BLOOD [id number] 22:17:00 Test Item Value Reference Range Interpretation [...] FIO2 (test code = COHBGFFIO2) 30 % PaO2/[id number] 22:17:00 Test Item Value Reference Range Interpretation Comments PaO2/FiO2 (test code = DTZ2PUC8) mm/Hg ARTERIAL BLOOD [id number] 22:17:00 Test Item Value Reference Range Interpretation [...] FIO2 (test code = COHBGFFIO2) 30 % PaO2/[id number] 22:17:00 Test Item Value Reference Range Interpretation Comments PaO2/FiO2 (test code = VND2OAG6) 251.66 mm/Hg ARTERIAL BLOOD [id number] 16:54:00 Test Item Value Reference Range Interpretation [...] FIO2 (test code = COHBGFFIO2) 30 % PaO2/[id number] 16:54:00 Test Item Value Reference Range Interpretation Comments PaO2/FiO2 (test code = FCO7ZTM4) mm/Hg ARTERIAL BLOOD [id number] 16:54:00 Test Item Value Reference Range Interpretation [...] FIO2 (test code = COHBGFFIO2) 30 % PaO2/[id number] 16:54:00 Test Item Value Reference Range Interpretation Comments PaO2/FiO2 (test code = SER8ADW9) 310.33 mm/Hg ARTERIAL BLOOD [id number] 14:42:00 Test Item Value Reference Range Interpretation [...] FIO2 (test code = COHBGFFIO2) 30 % PaO2/[id number] 14:42:00 Test Item Value Reference Range Interpretation Comments PaO2/FiO2 (test code = HVP4JHB3) mm/Hg ARTERIAL BLOOD [id number] 14:42:00 Test Item Value Reference Range Interpretation [...] FIO2 (test code = COHBGFFIO2) 30 % PaO2/[id number] 14:42:00 Test Item Value Reference Range Interpretation Comments PaO2/FiO2 (test code = OMT0VCM8) 270.66 mm/Hg CBC W/O [id number] 14:26:00 Test Item Value Reference Range Interpretation [...] code = NRBC#) GAVE TUBES TO JUVENCBNDIFFERENTIAL [id number] 14:26:00 Test Item Value Reference Range Interpretation Comments RBC MORPHOLOGY REQUIRED (test code = NORMAL RBCM) ANISOCYTOSIS (test code = ANISO) SLIGHT NONE PLATELET ESTIMATE (test code = ADEQUATE ADEQUATE PLTEST) PLATELET MORPHOLOGY (test code = NORMAL NORMAL PLTMORPH) GAVE TUBES TO JUVENCBNWBC [id number] 14:26:00 Test Item Value Reference Range Interpretation [...] 0-0 H GAVE TUBES TO JUVENCBNARTERIAL BLOOD [id number] 14:12:00 Test Item Value Reference Range Interpretation [...] FIO2 (test code = 30 % COHBGFFIO2) PaO2/[id number] 14:12:00 Test Item Value Reference Range Interpretation Comments PaO2/FiO2 (test code = JZT3WHS3) mm/Hg ARTERIAL BLOOD [id number] 14:12:00 Test Item Value Reference Range Interpretation [...] FIO2 (test code = 30 % COHBGFFIO2) PaO2/[id number] 14:12:00 Test Item Value Reference Range Interpretation Comments PaO2/FiO2 (test code = XTX9JSB3) 226.66 mm/Hg GLUCOSE BEDSIDE [id number] 13:23:00 Test Item Value Reference Range Interpretation Comments GLUCOSE BEDSIDE TESTING (test code 122 MG/DL 60-99 H = GLUBED) ARTERIAL BLOOD [id number] 12:31:00 Test Item Value Reference Range Interpretation [...] FIO2 (test code = 24 % COHBGFFIO2) PaO2/[id number] 12:31:00 Test Item Value Reference Range Interpretation Comments PaO2/FiO2 (test code = GKA7VTQ7) mm/Hg ARTERIAL BLOOD [id number] 12:31:00 Test Item Value Reference Range Interpretation [...] FIO2 (test code = 24 % COHBGFFIO2) PaO2/[id number] 12:31:00 Test Item Value Reference Range Interpretation Comments PaO2/FiO2 (test code = VCF4DPX5) 307.50 mm/Hg GLUCOSE BEDSIDE [id number] 12:00:00 Test Item Value Reference Range Interpretation Comments GLUCOSE BEDSIDE TESTING (test code 128 MG/DL 60-99 H = GLUBED) ARTERIAL BLOOD [id number] 10:42:00 Test Item Value Reference Range Interpretation [...] FIO2 (test code = COHBGFFIO2) 24 % PaO2/[id number] 10:42:00 Test Item Value Reference Range Interpretation Comments PaO2/FiO2 (test code = DHB8RGS8) mm/Hg ARTERIAL BLOOD [id number] 10:42:00 Test Item Value Reference Range Interpretation [...] FIO2 (test code = COHBGFFIO2) 24 % PaO2/[id number] 10:42:00 Test Item Value Reference Range Interpretation Comments PaO2/FiO2 (test code = [id number]) 347.91 mm/Hg ARTERIAL BLOOD [id number] 09:30:00 Test Item Value Reference Range Interpretation [...] FIO2 (test code = COHBGFFIO2) 24 % PaO2/[id number] 09:30:00 Test Item Value Reference Range Interpretation Comments PaO2/FiO2 (test code = [id number]) mm/Hg ARTERIAL BLOOD [id number] 09:30:00 Test Item Value Reference Range Interpretation [...] FIO2 (test code = COHBGFFIO2) 24 % PaO2/[id number] 09:30:00 Test Item Value Reference Range Interpretation Comments PaO2/FiO2 (test code = [id number]) 315.41 mm/Hg BASIC METABOLIC [id number] 07:27:00 Test Item Value Reference Range Interpretation [...] MG/DL 8.4-10.2 N CA) GAVE TUBES TO [id number] 07:27:00 Test Item Value Reference Range Interpretation Comments PHOSPHOROUS (test code = PHOS) 4.2 MG/DL 2.5-4.5 N GAVE TUBES TO [id number] 07:27:00 Test Item Value Reference Range Interpretation Comments MAGNESIUM (test code = MAG) 2.0 MG/DL 1.6-2.3 N GAVE TUBES TO JUVENCBNBASIC METABOLIC [id number] 07:26:00 Test Item Value Reference Range Interpretation [...] = MG/DL 8.7-9.7 CA) GAVE TUBES TO [id number] 07:26:00 Test Item Value Reference Range Interpretation Comments PHOSPHOROUS (test code = PHOS) MG/DL 2.5-4.5 GAVE TUBES TO [id number] 07:26:00 Test Item Value Reference Range Interpretation Comments MAGNESIUM (test code = MAG) MG/DL 1.6-2.3 GAVE TUBES TO JUVENCBNBASIC METABOLIC [id number] 07:23:00 Test Item Value Reference Range Interpretation [...] = CA) MG/DL 8.7-9.7 GAVE TUBES TO [id number] 07:23:00 Test Item Value Reference Range Interpretation Comments PHOSPHOROUS (test code = PHOS) MG/DL 2.5-4.5 GAVE TUBES TO [id number] 07:23:00 Test Item Value Reference Range Interpretation Comments MAGNESIUM (test code = MAG) MG/DL 1.6-2.3 GAVE TUBES TO JUVENCBNCBC W/O [id number] 07:20:00 Test Item Value Reference Range Interpretation [...] code = NRBC#) GAVE TUBES TO JUVENCBNDIFFERENTIAL [id number] 07:20:00 Test Item Value Reference Range Interpretation Comments RBC MORPHOLOGY REQUIRED (test code = RBCM) PLATELET ESTIMATE (test code = PLTEST) ADEQUATE PLATELET MORPHOLOGY (test code = NORMAL PLTMORPH) GAVE TUBES TO JUVENCBNWBC [id number] 07:20:00 Test Item Value Reference Range Interpretation Comments TOTAL CELLS COUNTED (test code = TCC) #CELLS SEGMENTED NEUTROPHILS (test code = % 36.2-73.8 SEG) LYMPHOCYTE (test code = LYMPH) % 12.9-45.1 MONOCYTE (test code = MON) % 0-11 GAVE TUBES TO JUVENCBNCBC W/AUTO [id number] 07:20:00 Test Item Value Reference Range Interpretation [...] code = NRBC#) GAVE TUBES TO JUVENCBNWBC [id number] 07:20:00 Test Item Value Reference Range Interpretation [...] NORMAL PLTMORPH) GAVE TUBES TO JUVENCBNGLUCOSE BEDSIDE [id number] 20:59:00 Test Item Value Reference Range Interpretation Comments GLUCOSE BEDSIDE TESTING (test code 108 MG/DL 60-99 H = GLUBED) HGB [id number] 20:16:00 Test Item Value Reference Range Interpretation Comments HEMOGLOBIN (test code = HGB) 10.4 G/DL 11.2-14.9 L HEMATOCRIT (test code = HCT) 31.8 % 33.2-43.5 L ARTERIAL BLOOD [id number] 20:09:00 Test Item Value Reference Range Interpretation [...] FIO2 (test code = 24 % COHBGFFIO2) PaO2/[id number] 20:09:00 Test Item Value Reference Range Interpretation Comments PaO2/FiO2 (test code = VWC3JYF6) mm/Hg ARTERIAL BLOOD [id number] 20:09:00 Test Item Value Reference Range Interpretation [...] FIO2 (test code = 24 % COHBGFFIO2) PaO2/[id number] 20:09:00 Test Item Value Reference Range Interpretation Comments PaO2/FiO2 (test code = YLS4BWQ7) 378.75 mm/Hg ARTERIAL BLOOD [id number] 16:56:00 Test Item Value Reference Range Interpretation [...] FIO2 (test code = 24 % COHBGFFIO2) PaO2/[id number] 16:56:00 Test Item Value Reference Range Interpretation Comments PaO2/FiO2 (test code = YKI9QIN0) mm/Hg ARTERIAL BLOOD [id number] 16:56:00 Test Item Value Reference Range Interpretation [...] FIO2 (test code = 24 % COHBGFFIO2) PaO2/[id number] 16:56:00 Test Item Value Reference Range Interpretation Comments PaO2/FiO2 (test code = NYO0XKF0) 413.75 mm/Hg GLUCOSE BEDSIDE [id number] 16:14:00 Test Item Value Reference Range Interpretation Comments GLUCOSE BEDSIDE TESTING (test code 106 MG/DL 60-99 H = GLUBED) HGB [id number] 15:44:00 Test Item Value Reference Range Interpretation Comments HEMOGLOBIN (test code = HGB) 9.9 G/DL 11.2-14.9 L HEMATOCRIT (test code = HCT) 29.1 % 33.2-43.5 L LACTIC [id number] 11:54:00 Test Item Value Reference Range Interpretation Comments LACTIC ACID (test code = LACT) 1.7 MMOL/L 0.7-2.1 N GLUCOSE BEDSIDE [id number] 11:16:00 Test Item Value Reference Range Interpretation Comments GLUCOSE BEDSIDE TESTING (test code 123 MG/DL 60-99 H = GLUBED) ARTERIAL BLOOD [id number] 10:36:00 Test Item Value Reference Range Interpretation [...] FIO2 (test code = COHBGFFIO2) 24 % PaO2/[id number] 10:36:00 Test Item Value Reference Range Interpretation Comments PaO2/FiO2 (test code = LCR5VEI3) mm/Hg ARTERIAL BLOOD [id number] 10:36:00 Test Item Value Reference Range Interpretation [...] FIO2 (test code = COHBGFFIO2) 24 % PaO2/[id number] 10:36:00 Test Item Value Reference Range Interpretation Comments PaO2/FiO2 (test code = IXS4WLW5) 414.16 mm/Hg HGB [id number] 07:58:00 Test Item Value Reference Range Interpretation Comments HEMOGLOBIN (test code = HGB) 9.6 G/DL 11.2-14.9 L HEMATOCRIT (test code = HCT) 28.7 % 33.2-43.5 L GLUCOSE BEDSIDE [id number] 07:48:00 Test Item Value Reference Range Interpretation Comments GLUCOSE BEDSIDE TESTING 120 MG/DL 60-99 H Noti fied Nurse~ (test code = GLUBED) [id number] 05:42:00 Test Item Value Reference Range Interpretation Comments VANCOMYCIN (test code = VANCO) 16.2 mcg/ML 5.0-26.0 N BASIC METABOLIC [id number] 05:38:00 Test Item Value Reference Range Interpretation [...] code = 8.6 MG/DL 8.4-10.2 N CA) [id number] 05:38:00 Test Item Value Reference Range Interpretation Comments PHOSPHOROUS (test code = PHOS) 3.8 MG/DL 2.5-4.5 N [id number] 05:38:00 Test Item Value Reference Range Interpretation Comments MAGNESIUM (test code = MAG) 2.0 MG/DL 1.6-2.3 N BASIC METABOLIC [id number] 05:37:00 Test Item Value Reference Range Interpretation [...] CALCIUM (test code = MG/DL 8.7-9.7 CA) [id number] 05:37:00 Test Item Value Reference Range Interpretation Comments PHOSPHOROUS (test code = PHOS) 3.8 MG/DL 2.5-4.5 N [id number] 05:37:00 Test Item Value Reference Range Interpretation Comments MAGNESIUM (test code = MAG) MG/DL 1.6-2.3 LACTIC [id number] 05:37:00 Test Item Value Reference Range Interpretation Comments LACTIC ACID (test code = LACT) 1.5 MMOL/L 0.7-2.1 N PROTHROMBIN [id number] 05:37:00 Test Item Value Reference Range Interpretation [...] eric embolism. 3.0 - 4.5 BASIC METABOLIC [id number] 05:36:00 Test Item Value Reference Range Interpretation [...] CALCIUM (test code = MG/DL 8.7-9.7 CA) [id number] 05:36:00 Test Item Value Reference Range Interpretation Comments PHOSPHOROUS (test code = PHOS) MG/DL 2.5-4.5 [id number] 05:36:00 Test Item Value Reference Range Interpretation Comments MAGNESIUM (test code = MAG) MG/DL 1.6-2.3 BASIC METABOLIC [id number] 05:33:00 Test Item Value Reference Range Interpretation [...] CALCIUM (test code = CA) MG/DL 8.7-9.7 [id number] 05:33:00 Test Item Value Reference Range Interpretation Comments PHOSPHOROUS (test code = PHOS) MG/DL 2.5-4.5 [id number] 05:33:00 Test Item Value Reference Range Interpretation Comments MAGNESIUM (test code = MAG) MG/DL 1.6-2.3 BASIC METABOLIC [id number] 05:33:00 Test Item Value Reference Range Interpretation [...] CALCIUM (test code = CA) MG/DL 8.7-9.7 [id number] 05:33:00 Test Item Value Reference Range Interpretation Comments PHOSPHOROUS (test code = PHOS) MG/DL 2.5-4.5 [id number] 05:33:00 Test Item Value Reference Range Interpretation Comments MAGNESIUM (test code = MAG) MG/DL 1.6-2.3 CBC W/AUTO [id number] 05:26:00 Test Item Value Reference Range Interpretation [...] = 0.03 K/mm3 0.0-0.1 N NRBC#) DIFFERENTIAL [id number] 05:26:00 Test Item Value Reference Range Interpretation Comments RBC MORPHOLOGY REQUIRED (test code = RBCM) PLATELET ESTIMATE (test code = PLTEST) ADEQUATE PLATELET MORPHOLOGY (test code = NORMAL PLTMORPH) CBC W/AUTO [id number] 05:26:00 Test Item Value Reference Range Interpretation [...] = 0.03 K/mm3 0.0-0.1 N NRBC#) DIFFERENTIAL [id number] 05:26:00 Test Item Value Reference Range Interpretation Comments RBC MORPHOLOGY REQUIRED (test code = RBCM) PLATELET ESTIMATE (test code = PLTEST) ADEQUATE PLATELET MORPHOLOGY (test code = NORMAL PLTMORPH) ARTERIAL BLOOD [id number] 04:54:00 Test Item Value Reference Range Interpretation [...] FIO2 (test code = 24 % COHBGFFIO2) PaO2/[id number] 04:54:00 Test Item Value Reference Range Interpretation Comments PaO2/FiO2 (test code = JZQ8WAS1) mm/Hg ARTERIAL BLOOD [id number] 04:54:00 Test Item Value Reference Range Interpretation [...] FIO2 (test code = 24 % COHBGFFIO2) PaO2/[id number] 04:54:00 Test Item Value Reference Range Interpretation Comments PaO2/FiO2 (test code = XVA1FNV8) 394.16 mm/Hg GLUCOSE BEDSIDE [id number] 21:17:00 Test Item Value Reference Range Interpretation Comments GLUCOSE BEDSIDE TESTING (test code 127 MG/DL 60-99 H = GLUBED) HGB [id number] 19:42:00 Test Item Value Reference Range Interpretation Comments HEMOGLOBIN (test code = HGB) 10.1 G/DL 11.2-14.9 L HEMATOCRIT (test code = HCT) 30.4 % 33.2-43.5 L UNABLE TO DRAW BLOOD, REASON: CBNNOTIFIED PATIENT CARE STAFF: ERIK 12/25/19 AT 1744 BY Kristen Henry AnGLUCOSE BEDSIDE [id number] 15:53:00 Test Item Value Reference Range Interpretation Comments GLUCOSE BEDSIDE TESTING 135 MG/DL 60-99 H Noti fied Nurse~ (test code = GLUBED) LACTIC [id number] 15:16:00 Test Item Value Reference Range Interpretation Comments LACTIC ACID (test code = LACT) 1.6 MMOL/L 0.7-2.1 N UNABLE TO DRAW BLOOD, REASON: CBNNOTIFIED PATIENT CARE STAFF: ERIK 12/25/19 AT 1412 BY Kristen Henry AnVANCOMYCIN [id number] 15:12:00 Test Item Value Reference Range Interpretation Comments VANCOMYCIN TROUGH (test code = 20.4 UG/ML 10.0-20.0 H VANCT) UNABLE TO DRAW BLOOD, REASON: CBNNOTIFIED PATIENT CARE STAFF: ERIK 12/25/19 AT 1411 BY Kristen Henry AnHGB [id number] 14:45:00 Test Item Value Reference Range Interpretation Comments HEMOGLOBIN (test code = HGB) 10.5 G/DL 11.2-14.9 L HEMATOCRIT (test code = HCT) 31.2 % 33.2-43.5 L UNABLE TO DRAW BLOOD, REASON: CBNNOTIFIED PATIENT CARE STAFF: ERIK 12/25/19 AT 1412 BY Kristen Henry AnLACTIC [id number] 12:57:00 Test Item Value Reference Range Interpretation Comments LACTIC ACID (test code = LACT) 1.4 MMOL/L 0.7-2.1 N GLUCOSE BEDSIDE [id number] 12:18:00 Test Item Value Reference Range Interpretation Comments GLUCOSE BEDSIDE TESTING 136 MG/DL 60-99 H Noti fied Nurse~ (test code = GLUBED) HGB [id number] 08:53:00 Test Item Value Reference Range Interpretation Comments HEMOGLOBIN (test code = HGB) 10.2 G/DL 11.2-14.9 L HEMATOCRIT (test code = HCT) 30.2 % 33.2-43.5 L UNABLE TO DRAW BLOOD, REASON: CBNNOTIFIED PATIENT CARE STAFF: DANILO PABON 12/25/19 AT 0835 BY Aydee Daniels CHEST [id number] 07:44:00 [facility] : 1940 Sex: F Patient Name: JORGE A HORTA Unit No: [id number] EXAMS: CPT CODE: [id number] XR CHEST 1V 85973 LOCATION: T18 EXAM: CHEST 1 VIEW INDICATION: [...] t.SDR.JP19 Orig Print D/T: S: 12/25/2019 (0747) [facility] NAME: JORGE A HORTA [address] [place] [address] PHYS: [place] [address] : 1940 AGE: 79 SEX: F LOC: Z.SI06 A PHONE #: [phone] EXAM DATE: 12/25/2019 STATUS: ADM IN FAX #: [phone] RADIOLOGY NO: PAGE 1 Signed ReportGLUCOSE BEDSIDE [id number] 07:42:00 Test Item Value Reference Range Interpretation Comments GLUCOSE BEDSIDE TESTING 132 MG/DL 60-99 H Noti fied Nurse~ (test code = GLUBED) PROTHROMBIN [id number] 05:02:00 Test Item Value Reference Range Interpretation [...] eric embolism. 3.0 - 4.5 ARTERIAL BLOOD [id number] 04:55:00 Test Item Value Reference Range Interpretation [...] FIO2 (test code = COHBGFFIO2) 35 % PaO2/[id number] 04:55:00 Test Item Value Reference Range Interpretation Comments PaO2/FiO2 (test code = DOV1ATT7) mm/Hg ARTERIAL BLOOD [id number] 04:55:00 Test Item Value Reference Range Interpretation [...] FIO2 (test code = COHBGFFIO2) 35 % PaO2/[id number] 04:55:00 Test Item Value Reference Range Interpretation Comments PaO2/FiO2 (test code = OEM3EOY9) 242.85 mm/Hg CBC W/O [id number] 04:33:00 Test Item Value Reference Range Interpretation [...] K/mm3 0.0-0.1 N code = NRBC#) DIFFERENTIAL [id number] 04:33:00 Test Item Value Reference Range Interpretation Comments RBC MORPHOLOGY REQUIRED (test code = ABNORMAL RBCM) POIKILOCYTOSIS (test code = POIK) FEW NONE ANISOCYTOSIS (test code = ANISO) SLIGHT NONE CRENATED CELLS (test code = CREN) FEW NONE PLATELET ESTIMATE (test code = ADEQUATE ADEQUATE PLTEST) PLATELET MORPHOLOGY (test code = NORMAL NORMAL PLTMORPH) WBC [id number] 04:33:00 Test Item Value Reference Range Interpretation [...] MON) 2.5 % 0-11 N CBC W/O [id number] 03:36:00 Test Item Value Reference Range Interpretation [...] K/mm3 0.0-0.1 N code = NRBC#) DIFFERENTIAL [id number] 03:36:00 Test Item Value Reference Range Interpretation Comments RBC MORPHOLOGY REQUIRED (test code = RBCM) PLATELET ESTIMATE (test code = PLTEST) ADEQUATE PLATELET MORPHOLOGY (test code = NORMAL PLTMORPH) WBC [id number] 03:36:00 Test Item Value Reference Range Interpretation Comments TOTAL CELLS COUNTED (test code = TCC) #CELLS SEGMENTED NEUTROPHILS (test code = % 36.2-73.8 SEG) LYMPHOCYTE (test code = LYMPH) % 12.9-45.1 MONOCYTE (test code = MON) % 0-11 CBC W/AUTO [id number] 03:36:00 Test Item Value Reference Range Interpretation [...] K/mm3 0.0-0.1 N code = NRBC#) WBC [id number] 03:36:00 Test Item Value Reference Range Interpretation Comments RBC MORPHOLOGY REQUIRED (test code = RBCM) TOTAL CELLS COUNTED (test code = TCC) #CELLS SEGMENTED NEUTROPHILS (test code = % 36.2-73.8 SEG) LYMPHOCYTE (test code = LYMPH) % 12.9-45.1 MONOCYTE (test code = MON) % 0-11 PLATELET ESTIMATE (test code = ADEQUATE PLTEST) PLATELET MORPHOLOGY (test code = NORMAL PLTMORPH) BASIC METABOLIC [id number] 03:28:00 Test Item Value Reference Range Interpretation [...] code = 8.6 MG/DL 8.4-10.2 N CA) [id number] 03:28:00 Test Item Value Reference Range Interpretation Comments PHOSPHOROUS (test code = PHOS) 3.4 MG/DL 2.5-4.5 N [id number] 03:28:00 Test Item Value Reference Range Interpretation Comments MAGNESIUM (test code = MAG) 2.3 MG/DL 1.6-2.3 [id number] 21:06:00 Test Item Value Reference Range Interpretation Comments POTASSIUM (test code = K) 3.8 MMOL/L 3.5-5.1 N UNABLE TO DRAW BLOOD, REASON: CBNNOTIFIED PATIENT CARE STAFF: LEXUS 12/24/19 AT 2019 BY Kristen Henry2020-11-15 21:06:00 Test Item Value Reference Range Interpretation Comments CALCIUM (test code = CA) 8.1 MG/DL 8.4-10.2 L UNABLE TO DRAW BLOOD, REASON: CBNNOTIFIED PATIENT CARE STAFF: [facility] 12/24/192019 BY Kristen HenryGNESIUM2020-11-15 21:06:00 Test Item Value Reference Range Interpretation Comments MAGNESIUM (test code = MAG) 1.9 MG/DL 1.6-2.3 UNABLE TO DRAW BLOOD, REASON: CBNNOTIFIED PATIENT CARE STAFF: [facility] 12/24/192019 BY Kristen Henry [id number] 21:05:00 Test Item Value Reference Range Interpretation Comments POTASSIUM (test code = K) 3.8 MMOL/L 3.5-5.1 N UNABLE TO DRAW BLOOD, REASON: CBNNOTIFIED PATIENT CARE STAFF: [facility] 12/24/192019 BY Kristen Henry [id number] 21:05:00 Test Item Value Reference Range Interpretation Comments CALCIUM (test code = CA) 8.1 MG/DL 8.4-10.2 L UNABLE TO DRAW BLOOD, REASON: CBNNOTIFIED PATIENT CARE STAFF: [facility] 12/24/192019 BY Kristen HenryGNESIUM2020-11-15 21:05:00 Test Item Value Reference Range Interpretation Comments MAGNESIUM (test code = MAG) MG/DL 1.6-2.3 UNABLE TO DRAW BLOOD, REASON: CBNNOTIFIED PATIENT CARE STAFF: [facility] 12/24/192019 BY Kristen Henry [id number] 21:02:00 Test Item Value Reference Range Interpretation Comments POTASSIUM (test code = K) 3.8 MMOL/L 3.5-5.1 N UNABLE TO DRAW BLOOD, REASON: CBNNOTIFIED PATIENT CARE STAFF: [facility] 12/24/192019 BY Kristen HenryLCIUM2020-11-15 21:02:00 Test Item Value Reference Range Interpretation Comments CALCIUM (test code = CA) MG/DL 8.7-9.7 UNABLE TO DRAW BLOOD, REASON: CBNNOTIFIED PATIENT CARE STAFF: [facility] 12/24/192019 BY Kristen Henry [id number] 21:02:00 Test Item Value Reference Range Interpretation Comments MAGNESIUM (test code = MAG) MG/DL 1.6-2.3 UNABLE TO DRAW BLOOD, REASON: CBNNOTIFIED PATIENT CARE STAFF: ARNOLDAMYDULCE 12/24/192019 BY Kristen Henry AnHGB [id number] 20:48:00 Test Item Value Reference Range Interpretation Comments HEMOGLOBIN (test code = HGB) 8.2 G/DL 11.2-14.9 L HEMATOCRIT (test code = HCT) 24.2 % 33.2-43.5 L UNABLE TO DRAW BLOOD, REASON: CBNNOTIFIED PATIENT CARE STAFF: ARNOLDAMOS 12/24/192019 BY Kristen Henry AnGLUCOSE BEDSIDE [id number] 20:27:00 Test Item Value Reference Range Interpretation Comments GLUCOSE BEDSIDE TESTING (test code 139 MG/DL 60-99 H = GLUBED) VANCOMYCIN [id number] 16:07:00 Test Item Value Reference Range Interpretation Comments VANCOMYCIN TROUGH (test code = 15.9 UG/ML 10.0-20.0 N VANCT) UNABLE TO DRAW BLOOD, REASON: CBNNOTIFIED PATIENT CARE STAFF: TREY 12/24/19 AT 1519 BY Kristen Henry AnARTERIAL BLOOD [id number] 15:59:00 Test Item Value Reference Range Interpretation [...] = SATA) report to and readback by TIZEL MILLIGAN RN by MARCO at 12/24/2019 3:58 [...] FIO2 (test code = 35 % COHBGFFIO2) PaO2/[id number] 15:59:00 Test Item Value Reference Range Interpretation Comments PaO2/FiO2 (test code = NPO5LHL1) mm/Hg ARTERIAL BLOOD [id number] 15:59:00 Test Item Value Reference Range Interpretation [...] FIO2 (test code = 35 % COHBGFFIO2) PaO2/[id number] 15:59:00 Test Item Value Reference Range Interpretation Comments PaO2/FiO2 (test code = FVT6TRE9) 298.28 mm/Hg PTT [id number] 15:58:00 Test Item Value Reference Range Interpretation Comments PTT ACTIVATED (test code = APTT) 39.0 SECONDS 25.1-36.5 H UNABLE TO DRAW BLOOD, REASON: CBNNOTIFIED PATIENT CARE STAFF: CONSUELO 12/24/19 AT 1519 BY Kristen Henry AnHGB [id number] 15:41:00 Test Item Value Reference Range Interpretation Comments HEMOGLOBIN (test code = HGB) 8.2 G/DL 11.2-14.9 L HEMATOCRIT (test code = HCT) 24.6 % 33.2-43.5 L UNABLE TO DRAW BLOOD, REASON: CBNNOTIFIED PATIENT CARE STAFF: [facility] 12/24/19 AT 1519 BY Kristen Henry AnARTERIAL BLOOD [id number] 13:00:00 Test Item Value Reference Range Interpretation [...] FIO2 (test code = COHBGFFIO2) 35 % PaO2/[id number] 13:00:00 Test Item Value Reference Range Interpretation Comments PaO2/FiO2 (test code = FHM1YWX6) mm/Hg ARTERIAL BLOOD [id number] 13:00:00 Test Item Value Reference Range Interpretation [...] FIO2 (test code = COHBGFFIO2) 35 % PaO2/[id number] 13:00:00 Test Item Value Reference Range Interpretation Comments PaO2/FiO2 (test code = XUM7XQW8) 318.57 mm/Hg HGB [id number] 12:52:00 Test Item Value Reference Range Interpretation Comments HEMOGLOBIN (test code = HGB) 8.3 G/DL 11.2-14.9 L HEMATOCRIT (test code = HCT) 25.1 % 33.2-43.5 L ARTERIAL BLOOD [id number] 09:55:00 Test Item Value Reference Range Interpretation [...] code = 0.3 % 0.4-1.5 L METHGB) PaO2/[id number] 09:55:00 Test Item Value Reference Range Interpretation Comments PaO2/FiO2 (test code = VSE2XWW6) mm/Hg ARTERIAL BLOOD [id number] 09:55:00 Test Item Value Reference Range Interpretation [...] code = 0.3 % 0.4-1.5 L METHGB) PaO2/[id number] 09:55:00 Test Item Value Reference Range Interpretation Comments PaO2/FiO2 (test code = JPX6NLA7) 318.57 mm/Hg [id number] 09:53:00 Test Item Value Reference Range Interpretation Comments PHOSPHOROUS (test code = PHOS) 3.7 MG/DL 2.5-4.5 N [id number] 09:53:00 Test Item Value Reference Range Interpretation Comments MAGNESIUM (test code = MAG) 1.5 MG/DL 1.6-2.3 L LACTIC [id number] 09:12:00 Test Item Value Reference Range Interpretation Comments LACTIC ACID (test code = LACT) 1.5 MMOL/L 0.7-2.1 N HGB [id number] 08:55:00 Test Item Value Reference Range Interpretation Comments HEMOGLOBIN (test code = HGB) 8.5 G/DL 11.2-14.9 L HEMATOCRIT (test code = HCT) 25.3 % 33.2-43.5 L CBC W/O [id number] 07:59:00 Test Item Value Reference Range Interpretation Comments WHITE BLOOD CELL (test 33.9 K/MM3 3.8-9.8 BERNABE aBi code = WBC) & READBACK ON 12/24/19 [...] K/mm3 0.0-0.1 N code = NRBC#) DIFFERENTIAL [id number] 07:59:00 Test Item Value Reference Range Interpretation Comments RBC MORPHOLOGY REQUIRED (test code = NORMAL RBCM) POIKILOCYTOSIS (test code = POIK) FEW NONE GIAN CELLS (test code = GIAN) FEW NONE PLATELET ESTIMATE (test code = ADEQUATE ADEQUATE PLTEST) PLATELET MORPHOLOGY (test code = NORMAL NORMAL PLTMORPH) WBC [id number] 07:59:00 Test Item Value Reference Range Interpretation [...] 0-0 H code = NRBC) GLUCOSE BEDSIDE [id number] 07:55:00 Test Item Value Reference Range Interpretation Comments GLUCOSE BEDSIDE TESTING (test code 125 MG/DL 60-99 H = GLUBED) - XR CHEST [id number] 06:07:00 [facility] : 1940 Sex: F Patient Name: JORGE A HORTA Unit No: [id number] EXAMS: CPT CODE: [id number] XR CHEST 1V 32222 Examination: One view chest x-ray Location code: [...] Ramu Sutherland MD; Jose Alfredo Goff MD; Rasihd Son MD Technologist: Yobani Elias, RT(R) Transcrpt Date/Tm/Trnsp: 12/24/2019 (0607) AuraVR5 Orig Print D/T: S: 12/24/2019 (0628) [facility] NAME: JORGE A HORTA [address] PHYS: [place] [address] : 1940 AGE: 79 SEX: F LOC: [id number] Monty PHONE #: [phone] EXAM DATE: 12/24/2019 STATUS: ADM IN FAX #: [phone] RADIOLOGY NO: PAGE 1 Signed Report COMPREHENSIVE METABOLIC [id number] 05:40:00 Test Item Value Reference Range Interpretation [...] N (test code = ALKP) COMPREHENSIVE METABOLIC [id number] 05:38:00 Test Item Value Reference Range Interpretation [...] UNITS/L 38-126 (test code = ALKP) LACTIC [id number] 05:38:00 Test Item Value Reference Range Interpretation Comments LACTIC ACID (test code = LACT) 2.1 MMOL/L 0.7-2.1 N COMPREHENSIVE METABOLIC [id number] 05:37:00 Test Item Value Reference Range Interpretation [...] code = UNITS/L 38-126 ALKP) COMPREHENSIVE METABOLIC [id number] 05:36:00 Test Item Value Reference Range Interpretation [...] (test code = UNITS/L 38-126 ALKP) PROTHROMBIN [id number] 05:32:00 Test Item Value Reference Range Interpretation [...] eric embolism. 3.0 - 4.5 CBC W/O [id number] 05:27:00 Test Item Value Reference Range Interpretation [...] K/mm3 0.0-0.1 N code = NRBC#) DIFFERENTIAL [id number] 05:27:00 Test Item Value Reference Range Interpretation Comments RBC MORPHOLOGY REQUIRED (test code = RBCM) PLATELET ESTIMATE (test code = PLTEST) ADEQUATE PLATELET MORPHOLOGY (test code = NORMAL PLTMORPH) WBC [id number] 05:27:00 Test Item Value Reference Range Interpretation Comments TOTAL CELLS COUNTED (test code = TCC) #CELLS SEGMENTED NEUTROPHILS (test code = % 36.2-73.8 SEG) LYMPHOCYTE (test code = LYMPH) % 12.9-45.1 MONOCYTE (test code = MON) % 0-11 CBC W/AUTO [id number] 05:27:00 Test Item Value Reference Range Interpretation [...] K/mm3 0.0-0.1 N code = NRBC#) WBC [id number] 05:27:00 Test Item Value Reference Range Interpretation Comments RBC MORPHOLOGY REQUIRED (test code = RBCM) TOTAL CELLS COUNTED (test code = TCC) #CELLS SEGMENTED NEUTROPHILS (test code = % 36.2-73.8 SEG) LYMPHOCYTE (test code = LYMPH) % 12.9-45.1 MONOCYTE (test code = MON) % 0-11 PLATELET ESTIMATE (test code = ADEQUATE PLTEST) PLATELET MORPHOLOGY (test code = NORMAL PLTMORPH) HGB [id number] 00:34:00 Test Item Value Reference Range Interpretation Comments HEMOGLOBIN (test code = HGB) 7.4 G/DL 11.2-14.9 L HEMATOCRIT (test code = HCT) 23.1 % 33.2-43.5 L LACTIC [id number] 00:28:00 Test Item Value Reference Range Interpretation Comments LACTIC ACID (test code = LACT) 2.2 MMOL/L 0.7-2.1 H GLUCOSE BEDSIDE [id number] 00:12:00 Test Item Value Reference Range Interpretation Comments GLUCOSE BEDSIDE TESTING (test code = 88 MG/DL 60-99 N GLUBED) GLUCOSE BEDSIDE [id number] 22:03:00 Test Item Value Reference Range Interpretation Comments GLUCOSE BEDSIDE TESTING (test code = 75 MG/DL 60-99 N GLUBED) LACTIC [id number] 18:59:00 Test Item Value Reference Range Interpretation Comments LACTIC ACID (test code = LACT) 2.7 MMOL/L 0.7-2.1 H UNABLE TO DRAW BLOOD, REASON: CBNNOTIFIED PATIENT CARE STAFF: [facility] 12/23/19 AT 133 BY Kristen Henry AnGLUCOSE BEDSIDE [id number] 16:34:00 Test Item Value Reference Range Interpretation Comments GLUCOSE BEDSIDE TESTING (test code = 81 MG/DL 60-99 N GLUBED) LACTIC [id number] 16:07:00 Test Item Value Reference Range Interpretation Comments LACTIC ACID (test code = LACT) 2.8 MMOL/L 0.7-2.1 H UNABLE TO DRAW BLOOD, REASON: CBNNOTIFIED PATIENT CARE STAFF: [facility] 12/23/19 AT 133 BY Kristen Henry [id number] 15:54:00 Test Item Value Reference Range Interpretation Comments HEMOGLOBIN (test code = HGB) 7.8 G/DL 11.2-14.9 L UNABLE TO DRAW BLOOD, REASON: CBNNOTIFIED PATIENT CARE STAFF: [facility] 12/23/19 AT [facility] BY Kristen HenryHGB [id number] 12:42:00 Test Item Value Reference Range Interpretation Comments HEMOGLOBIN (test code = HGB) 9.4 G/DL 11.2-14.9 L HEMATOCRIT (test code = HCT) 28.8 % 33.2-43.5 L BASIC METABOLIC [id number] 12:29:00 Test Item Value Reference Range Interpretation [...] code = 7.6 MG/DL 8.4-10.2 L CA) [id number] 12:29:00 Test Item Value Reference Range Interpretation Comments MAGNESIUM (test code = MAG) 1.4 MG/DL 1.6-2.3 L LACTIC [id number] 12:27:00 Test Item Value Reference Range Interpretation Comments LACTIC ACID (test code = LACT) 3.1 MMOL/L 0.7-2.1 H BASIC METABOLIC [id number] 12:27:00 Test Item Value Reference Range Interpretation [...] CALCIUM (test code = MG/DL 8.7-9.7 CA) [id number] 12:27:00 Test Item Value Reference Range Interpretation Comments MAGNESIUM (test code = MAG) MG/DL 1.6-2.3 BASIC METABOLIC [id number] 12:24:00 Test Item Value Reference Range Interpretation [...] CALCIUM (test code = CA) MG/DL 8.7-9.7 [id number] 12:24:00 Test Item Value Reference Range Interpretation Comments MAGNESIUM (test code = MAG) MG/DL 1.6-2.3 LACTIC [id number] 09:12:00 Test Item Value Reference Range Interpretation Comments LACTIC ACID (test code = LACT) 3.6 MMOL/L 0.7-2.1 H [id number] 09:05:00 Test Item Value Reference Range Interpretation Comments HEMOGLOBIN (test code = HGB) 10.9 G/DL 11.2-14.9 L - XR CHEST [id number] 06:04:00 [facility] : 1940 Sex: F Patient Name: JORGE A HORTA Unit No: [id number] EXAMS: CPT CODE: [id number] XR CHEST 1V 47687 LOCATION: H43 EXAM: - XR CHEST 1V [...] (0604) t.SDR.NS15 Orig Print D/T: S: 12/23/2019(0707) [facility] NAME: JORGE A HORTA [id number] PHYS: Jose [place] [address] : 1940 AGE: 79 SEX: F LOC: Z.SI06 A PHONE #: [phone] EXAM DATE: 12/23/2019 STATUS: ADM IN FAX #: [phone] RADIOLOGY NO: PAGE 1 Signed ReportCBC W/AUTO [id number] 05:32:00 Test Item Value Reference Range Interpretation [...] 0.02 K/mm3 0.0-0.1 N NRBC#) COMPREHENSIVE METABOLIC [id number] 05:23:00 Test Item Value Reference Range Interpretation [...] 38-126 (test code = ALKP) COMPREHENSIVE METABOLIC [id number] 05:09:00 Test Item Value Reference Range Interpretation [...] code = UNITS/L 38-126 ALKP) COMPREHENSIVE METABOLIC [id number] 05:08:00 Test Item Value Reference Range Interpretation [...] (test code = UNITS/L 38-126 ALKP) LACTIC [id number] 05:04:00 Test Item Value Reference Range Interpretation Comments LACTIC ACID (test code = LACT) 3.8 MMOL/L 0.7-2.1 H PATIENT RECEIVING BLOODCBC W/AUTO [id number] 03:12:00 Test Item Value Reference Range Interpretation [...] K/mm3 0.0-0.1 N code = NRBC#) WBC [id number] 03:12:00 Test Item Value Reference Range Interpretation [...] (test code = NORMAL NORMAL PLTMORPH) PROTHROMBIN [id number] 00:01:00 Test Item Value Reference Range Interpretation [...] - 4.5 QNS AT 2318. SPOKE TO [employer]. LINE DRAWPTT [id number] 00:01:00 Test Item Value Reference Range Interpretation Comments PTT ACTIVATED (test code = APTT) 47.6 SECONDS 25.1-36.5 H QNS AT 2318. SPOKE TO [employer]. LINE [id number] 00:01:00 Test Item Value Reference Range Interpretation Comments FIBRINOGEN (test code = FIB) 181 mg/dL 200-393 L QNS AT 2318. SPOKE TO [employer]. LINE [id number] 00:01:00 Test Item Value Reference Range Interpretation Comments D-DIMER (test 77199 ng/mLFEU 0-499 H Negative Pre dictive Value [...] pr ocedures. QNS AT 2318. SPOKE TO [employer]. LINE DRAWARTERIAL BLOOD [id number] 23:52:00 Test Item Value Reference Range Interpretation [...] FIO2 (test code = COHBGFFIO2) 85 % PaO2/[id number] 23:52:00 Test Item Value Reference Range Interpretation Comments PaO2/FiO2 (test code = HQX9YBG3) mm/Hg ARTERIAL BLOOD [id number] 23:52:00 Test Item Value Reference Range Interpretation [...] FIO2 (test code = COHBGFFIO2) 85 % PaO2/[id number] 23:52:00 Test Item Value Reference Range Interpretation Comments PaO2/FiO2 (test code = JVF3TLY2) 99.88 mm/Hg BASIC METABOLIC [id number] 23:35:00 Test Item Value Reference Range Interpretation [...] CALCIUM (test code = MG/DL 8.7-9.7 CA) [id number] 23:35:00 Test Item Value Reference Range Interpretation Comments AMYLASE (test code = CAROLE) 89 UNITS/L 30-110 N [id number] 23:35:00 Test Item Value Reference Range Interpretation Comments LIPASE (test code = LIP) UNITS/L 23-300 [id number] 23:35:00 Test Item Value Reference Range Interpretation Comments MAGNESIUM (test code = MAG) MG/DL 1.6-2.3 BASIC METABOLIC [id number] 23:35:00 Test Item Value Reference Range Interpretation [...] code = 8.0 MG/DL 8.4-10.2 L CA) [id number] 23:35:00 Test Item Value Reference Range Interpretation Comments AMYLASE (test code = CAROLE) 89 UNITS/L 30-110 N [id number] 23:35:00 Test Item Value Reference Range Interpretation Comments LIPASE (test code = LIP) 39 UNITS/L 23-300 N [id number] 23:35:00 Test Item Value Reference Range Interpretation Comments MAGNESIUM (test code = MAG) 1.4 MG/DL 1.6-2.3 L LACTIC [id number] 23:32:00 Test Item Value Reference Range Interpretation Comments LACTIC ACID (test code = LACT) 2.6 MMOL/L 0.7-2.1 H BASIC METABOLIC [id number] 23:31:00 Test Item Value Reference Range Interpretation [...] CALCIUM (test code = CA) MG/DL 8.7-9.7 [id number] 23:31:00 Test Item Value Reference Range Interpretation Comments AMYLASE (test code = CAROLE) UNITS/L 30-110 [id number] 23:31:00 Test Item Value Reference Range Interpretation Comments LIPASE (test code = LIP) UNITS/L 23-300 [id number] 23:31:00 Test Item Value Reference Range Interpretation Comments MAGNESIUM (test code = MAG) MG/DL 1.6-2.3 CBC W/AUTO [id number] 23:28:00 Test Item Value Reference Range Interpretation [...] K/mm3 0.0-0.1 N code = NRBC#) DIFFERENTIAL [id number] 23:28:00 Test Item Value Reference Range Interpretation Comments RBC MORPHOLOGY REQUIRED (test code = RBCM) PLATELET ESTIMATE (test code = PLTEST) ADEQUATE PLATELET MORPHOLOGY (test code = NORMAL PLTMORPH) CBC W/AUTO [id number] 23:28:00 Test Item Value Reference Range Interpretation [...] K/mm3 0.0-0.1 N code = NRBC#) DIFFERENTIAL [id number] 23:28:00 Test Item Value Reference Range Interpretation Comments RBC MORPHOLOGY REQUIRED (test code = RBCM) PLATELET ESTIMATE (test code = PLTEST) ADEQUATE PLATELET MORPHOLOGY (test code = NORMAL PLTMORPH) PLATELET [id number] 23:14:00 Test Item Value Reference Range Interpretation Comments PLATELET COUNT TEST NOT PERFORMED 129-368 SEE CBC REPORT (test code = PLT) K/MM3 - XR CHEST [id number] 23:02:00 [facility] : 1940 Sex: F Patient Name: JORGE A HORTA Unit No: [id number] EXAMS: CPT CODE: [id number] XR CHEST 1V [id number] AFTER HOURS SERVICE ON: 12/22/2019 11:01 PM [...] AuraMA50 Orig Print D/T: S: 12/22/2019 (2305) [facility] NAME: JORGE A HORTA [id number] PHYS: Jose [place] [address] : 1940 AGE: 79 SEX: F LOC: Z.SI06 A PHONE #: [phone] EXAM DATE: 12/22/2019 STATUS: ADM IN FAX #: [phone] RADIOLOGY NO: PAGE 1 Signed ReportARTERIAL BLOOD [id number] 22:53:00 Test Item Value Reference Range Interpretation [...] FIO2 (test code = 100 % COHBGFFIO2) PaO2/[id number] 22:53:00 Test Item Value Reference Range Interpretation Comments PaO2/FiO2 (test code = NKO2JZO5) mm/Hg ARTERIAL BLOOD [id number] 22:53:00 Test Item Value Reference Range Interpretation [...] FIO2 (test code = 100 % COHBGFFIO2) PaO2/[id number] 22:53:00 Test Item Value Reference Range Interpretation Comments PaO2/FiO2 (test code = KRD4HRA8) 160.40 mm/Hg BASIC METABOLIC [id number] 19:39:00 Test Item Value Reference Range Interpretation [...] 7.4 MG/DL 8.4-10.2 L CA) Comments to Machine Lay Out Worker: USE BLOOD RECENTLY COLLECTED PLEASEIs this a LINE draw? NBASIC METABOLIC [id number] 19:38:00 Test Item Value Reference Range Interpretation [...] code = MG/DL 8.7-9.7 CA) Comments to Machine Lay Out Worker: USE BLOOD RECENTLY COLLECTED PLEASEIs this a LINE draw? NBASIC METABOLIC [id number] 19:36:00 Test Item Value Reference Range Interpretation [...] code = CA) MG/DL 8.7-9.7 Comments to Machine Lay Out Worker: USE BLOOD RECENTLY COLLECTED PLEASEIs this a LINE draw? NPROTHROMBIN [id number] 19:22:00 Test Item Value Reference Range Interpretation [...] eric embolism. 3.0 - 4.5 Comments to Machine Lay Out Worker: USE BLOOD RECENTLY COLLECTED PLEASE PELASEPTT [id number] 19:22:00 Test Item Value Reference Range Interpretation Comments PTT ACTIVATED (test code = APTT) 28.4 SECONDS 25.1-36.5 N Comments to Machine Lay Out Worker: USE BLOOD RECENTLY COLLECTED PLEASE PELASEHGB [id number] 18:56:00 Test Item Value Reference Range Interpretation Comments HEMOGLOBIN (test code = HGB) 8.8 G/DL 11.2-14.9 L HEMATOCRIT (test code = HCT) 27.5 % 33.2-43.5 L GLUCOSE BEDSIDE [id number] 17:38:00 Test Item Value Reference Range Interpretation Comments GLUCOSE BEDSIDE TESTING (test code = 86 MG/DL 60-99 N GLUBED) HGB [id number] 14:37:00 Test Item Value Reference Range Interpretation Comments HEMOGLOBIN (test code = HGB) 9.3 G/DL 11.2-14.9 L HEMATOCRIT (test code = HCT) 29.2 % 33.2-43.5 L GLUCOSE BEDSIDE [id number] 12:04:00 Test Item Value Reference Range Interpretation Comments GLUCOSE BEDSIDE TESTING (test code = 88 MG/DL 60-99 N GLUBED) COMPREHENSIVE METABOLIC [id number] 07:26:00 Test Item Value Reference Range Interpretation [...] N (test code = ALKP) COMPREHENSIVE METABOLIC [id number] 07:25:00 Test Item Value Reference Range Interpretation [...] N (test code = ALKP) COMPREHENSIVE METABOLIC [id number] 07:23:00 Test Item Value Reference Range Interpretation [...] code = UNITS/L 38-126 ALKP) COMPREHENSIVE METABOLIC [id number] 07:22:00 Test Item Value Reference Range Interpretation [...] code = UNITS/L 38-126 ALKP) GLUCOSE BEDSIDE [id number] 07:16:00 Test Item Value Reference Range Interpretation Comments GLUCOSE BEDSIDE TESTING (test code = 96 MG/DL 60-99 N GLUBED) PROTHROMBIN [id number] 07:04:00 Test Item Value Reference Range Interpretation [...] syste eric embolism. 3.0 - 4.5 PTT [id number] 07:04:00 Test Item Value Reference Range Interpretation Comments PTT ACTIVATED (test code = APTT) 30.5 SECONDS 25.1-36.5 N CBC W/AUTO [id number] 06:46:00 Test Item Value Reference Range Interpretation [...] 0.00 K/mm3 0.0-0.1 N NRBC#) GLUCOSE BEDSIDE [id number] 00:11:00 Test Item Value Reference Range Interpretation Comments GLUCOSE BEDSIDE TESTING (test code = 98 MG/DL 60-99 N GLUBED) PROTHROMBIN [id number] 23:41:00 Test Item Value Reference Range Interpretation [...] syste eric embolism. 3.0 - 4.5 PTT [id number] 23:41:00 Test Item Value Reference Range Interpretation Comments PTT ACTIVATED (test code = APTT) 25.2 SECONDS 25.1-36.5 N BASIC METABOLIC [id number] 23:39:00 Test Item Value Reference Range Interpretation [...] 7.4 MG/DL 8.4-10.2 L CA) BASIC METABOLIC [id number] 23:36:00 Test Item Value Reference Range Interpretation [...] code = CA) MG/DL 8.7-9.7 CBC W/AUTO [id number] 23:29:00 Test Item Value Reference Range Interpretation [...] 0.00 K/mm3 0.0-0.1 N NRBC#) GLUCOSE BEDSIDE [id number] 20:24:00 Test Item Value Reference Range Interpretation Comments GLUCOSE BEDSIDE TESTING (test code 106 MG/DL 60-99 H = GLUBED) - XR CHEST [id number] 19:08:00 [facility] : 1940 Sex: F Patient Name: JORGE A HORTA Unit No: [id number] EXAMS: CPT CODE: [id number] XR CHEST 1V 15510 REASON FOR EXAM: Coronary artery disease. COMPARISON: [...] AuraRCM1 Orig Print D/T: S: 12/21/2019 (1911) [facility] NAME: JORGE A HORTA [id number] [address] PHYS: Re[place] [address] : 1940 AGE: 79 SEX: F LOC: Z.SI06 A PHONE #: [phone] EXAM DATE: 12/21/2019 STATUS: ADM IN FAX #: [phone] RADIOLOGY NO: PAGE 1 Signed ReportGLUCOSE BEDSIDE [id number] 12:32:00 Test Item Value Reference Range Interpretation Comments GLUCOSE BEDSIDE TESTING (test code 130 MG/DL 60-99 H = GLUBED) GLUCOSE BEDSIDE [id number] 09:19:00 Test Item Value Reference Range Interpretation Comments GLUCOSE BEDSIDE TESTING (test code 143 MG/DL 60-99 H = GLUBED) COMPREHENSIVE METABOLIC [id number] 07:06:00 Test Item Value Reference Range Interpretation [...] H (test code = ALKP) COMPREHENSIVE METABOLIC [id number] 06:24:00 Test Item Value Reference Range Interpretation [...] 38-126 (test code = ALKP) COMPREHENSIVE METABOLIC [id number] 06:22:00 Test Item Value Reference Range Interpretation [...] (test code = UNITS/L 38-126 ALKP) PROTHROMBIN [id number] 06:21:00 Test Item Value Reference Range Interpretation [...] eric embolism. 3.0 - 4.5 COMPREHENSIVE METABOLIC [id number] 06:21:00 Test Item Value Reference Range Interpretation [...] code = UNITS/L 38-126 ALKP) CBC W/AUTO [id number] 06:11:00 Test Item Value Reference Range Interpretation [...] 0.00 K/mm3 0.0-0.1 N NRBC#) GLUCOSE BEDSIDE [id number] 21:01:00 Test Item Value Reference Range Interpretation Comments GLUCOSE BEDSIDE TESTING (test code 127 MG/DL 60-99 H = GLUBED) GLUCOSE BEDSIDE [id number] 16:02:00 Test Item Value Reference Range Interpretation Comments GLUCOSE BEDSIDE TESTING (test code 118 MG/DL 60-99 H = GLUBED) - NM ACUTE GI BLOOD [id number] 15:54:00 [facility] : 1940 Sex: F Patient Name: JORGE A HORTA Unit No: [id number] EXAMS: CPT CODE: [id number] NM ACUTE GI BLOOD LOSS 65192 B2 EXAM: - NM ACUTE GI BLOOD [...] (1554) t.CARLAR.VB7 Orig Print D/T: S: 12/20/2019 (0506) [facility] NAME: CHRISTINA HORTANCA [id number] [address] PHYS: [place] [address] : 1940 AGE: 79 SEX: F LOC: Z.SI06 A PHONE #: [phone] EXAM DATE: 12/20/2019 STATUS: ADM IN FAX #: [phone] RADIOLOGY NO: PAGE 1 Signed ReportGLUCOSE BEDSIDE TESTING 2019-12-20 11:29:00 Test Item Value Reference Range Interpretation Comments GLUCOSE BEDSIDE TESTING (test code 148 MG/DL 60-99 H = GLUBED) GLUCOSE BEDSIDE [id number] 09:20:00 Test Item Value Reference Range Interpretation Comments GLUCOSE BEDSIDE TESTING (test code 152 MG/DL 60-99 H = GLUBED) BASIC METABOLIC [id number] 06:04:00 Test Item Value Reference Range Interpretation [...] 7.2 MG/DL 8.4-10.2 L CA) BASIC METABOLIC [id number] 06:03:00 Test Item Value Reference Range Interpretation [...] code = MG/DL 8.7-9.7 CA) BASIC METABOLIC [id number] 06:01:00 Test Item Value Reference Range Interpretation [...] code = CA) MG/DL 8.7-9.7 BASIC METABOLIC [id number] 06:00:00 Test Item Value Reference Range Interpretation [...] (test code = CA) MG/DL 8.7-9.7 PROTHROMBIN [id number] 06:00:00 Test Item Value Reference Range Interpretation [...] eric embolism. 3.0 - 4.5 CBC W/AUTO [id number] 05:53:00 Test Item Value Reference Range Interpretation [...] 0.00 K/mm3 0.0-0.1 N NRBC#) GLUCOSE BEDSIDE [id number] 20:57:00 Test Item Value Reference Range Interpretation Comments GLUCOSE BEDSIDE TESTING (test code 138 MG/DL 60-99 H = GLUBED) PROTHROMBIN [id number] 19:46:00 Test Item Value Reference Range Interpretation [...] 12/19/19 AT 183 BY Kristen Henry AnPTT [id number] 19:46:00 Test Item Value Reference Range Interpretation Comments PTT ACTIVATED (test code = APTT) 31.3 SECONDS 25.1-36.5 N UNABLE TO DRAW BLOOD, REASON: HARDSTICK NOTIFIED PATIENT CARE STAFF: MACK 12/19/19 AT 183 BY Kristen Henry AnHGB [id number] 19:36:00 Test Item Value Reference Range Interpretation Comments HEMOGLOBIN (test code = HGB) 7.4 G/DL 11.2-14.9 L HEMATOCRIT (test code = HCT) 23.6 % 33.2-43.5 L Is this a LINE draw? NUNABLE TO DRAW BLOOD, REASON: HARDSTICKNOTIFIED PATIENT CARE STAFF: MACK 12/19/19 AT 183 BY Kristen Henry AnGLUCOSE BEDSIDE [id number] 17:14:00 Test Item Value Reference Range Interpretation Comments GLUCOSE BEDSIDE TESTING (test code 127 MG/DL 60-99 H = GLUBED) GLUCOSE BEDSIDE [id number] 11:41:00 Test Item Value Reference Range Interpretation Comments GLUCOSE BEDSIDE TESTING (test code 125 MG/DL 60-99 H = GLUBED) BASIC METABOLIC [id number] 09:20:00 Test Item Value Reference Range Interpretation [...] 7.5 MG/DL 8.4-10.2 L CA) CBNBASIC METABOLIC [id number] 09:15:00 Test Item Value Reference Range Interpretation [...] code = MG/DL 8.7-9.7 CA) CBNBASIC METABOLIC [id number] 09:13:00 Test Item Value Reference Range Interpretation [...] code = CA) MG/DL 8.7-9.7 CBNBASIC METABOLIC [id number] 09:12:00 Test Item Value Reference Range Interpretation [...] (test code = CA) MG/DL 8.7-9.7 CBNPROTHROMBIN [id number] 09:09:00 Test Item Value Reference Range Interpretation [...] eric embolism. 3.0 - 4.5 CBNComments to Machine Lay Out Worker: WITH AM LABSCBC W/AUTO [id number] 08:57:00 Test Item Value Reference Range Interpretation [...] 0.00 K/mm3 0.0-0.1 N NRBC#) CBNGLUCOSE BEDSIDE [id number] 07:42:00 Test Item Value Reference Range Interpretation Comments GLUCOSE BEDSIDE TESTING (test code 122 MG/DL 60-99 H = GLUBED) GLUCOSE BEDSIDE [id number] 21:25:00 Test Item Value Reference Range Interpretation Comments GLUCOSE BEDSIDE TESTING (test code 115 MG/DL 60-99 H = GLUBED) GLUCOSE BEDSIDE [id number] 17:33:00 Test Item Value Reference Range Interpretation Comments GLUCOSE BEDSIDE TESTING (test code 104 MG/DL 60-99 H = GLUBED) C REACTIVE [id number] 15:42:00 Test Item Value Reference Range Interpretation Comments C REACTIVE PROTEIN (test code = 25.20 MG/DL 0.00-9.99 H CRP) - XR SMALL BOWEL/[id number] 12:46:00 [facility] : 1940 Sex: F Patient Name: JORGE A HORTA Unit No: [id number] EXAMS: CPT CODE: [id number] XR SMALL BOWEL/ENTERO 71720 B2 EXAM: Small bowel series INDICATION: Prolonged Ileus s/p CV surgery COMPARISON: Abdomen/pelvis CT 12/04/2019 FINDINGS: Small bowel transit time is 2 hours which is within normal limits. No focal mass lesion is identified. The folds of the ileum and jejunum are within normal limits. No evidence of small bowel distention. IMPRESSION: Unremarkable small bowel series. at 1246 Reported and signed by: Haresh Gorss MD CC: Tevin Samuels; Ramu Sutherland MD; Georgina Smith MD Technologist: Cheyanne Hernández, BSRS, RT(R) Transcrpt Date/Tm/Trnsp: 12/18/2019 (7681) AuraVB7 Orig Print D/T: S: 12/18/2019 (3454) [facility] NAME: JORGE A HORTA [address] PHYS: [email or web address].02 - [place] [address] : 1940 AGE: 79 SEX: F : Z.SI06 A PHONE #: [phone] EXAM DATE: 12/18/2019 STATUS: ADM IN FAX #: [phone] RADIOLOGY NO: PAGE 1 Signed ReportGLUCOSE BEDSIDE [id number] 12:07:00 Test Item Value Reference Range Interpretation Comments GLUCOSE BEDSIDE TESTING (test code 101 MG/DL 60-99 H = GLUBED) SED [id number] 09:36:00 Test Item Value Reference Range Interpretation Comments SED RATE (test code = SEDW) 53 MM/HR 0-20 H GLUCOSE BEDSIDE [id number] 09:03:00 Test Item Value Reference Range Interpretation Comments GLUCOSE BEDSIDE TESTING (test code 113 MG/DL 60-99 H = GLUBED) BASIC METABOLIC [id number] 06:06:00 Test Item Value Reference Range Interpretation [...] 7.3 MG/DL 8.4-10.2 L CA) BASIC METABOLIC [id number] 06:00:00 Test Item Value Reference Range Interpretation [...] code = MG/DL 8.7-9.7 CA) BASIC METABOLIC [id number] 05:57:00 Test Item Value Reference Range Interpretation [...] (test code = CA) MG/DL 8.7-9.7 PROTHROMBIN [id number] 05:38:00 Test Item Value Reference Range Interpretation [...] eric embolism. 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 AM LABSCBC W/AUTO [id number] 05:29:00 Test Item Value Reference Range Interpretation [...] 0.00 K/mm3 0.0-0.1 N NRBC#) GLUCOSE BEDSIDE [id number] 20:19:00 Test Item Value Reference Range Interpretation Comments GLUCOSE BEDSIDE TESTING (test code 212 MG/DL 60-99 H = GLUBED) GLUCOSE BEDSIDE [id number] 17:34:00 Test Item Value Reference Range Interpretation Comments GLUCOSE BEDSIDE TESTING (test code 217 MG/DL 60-99 H = GLUBED) GLUCOSE BEDSIDE [id number] 13:00:00 Test Item Value Reference Range Interpretation Comments GLUCOSE BEDSIDE TESTING (test code 207 MG/DL 60-99 H = GLUBED) BASIC METABOLIC [id number] 05:59:00 Test Item Value Reference Range Interpretation [...] 7.1 MG/DL 8.4-10.2 L CA) BASIC METABOLIC [id number] 05:51:00 Test Item Value Reference Range Interpretation [...] code = MG/DL 8.7-9.7 CA) BASIC METABOLIC [id number] 05:49:00 Test Item Value Reference Range Interpretation [...] (test code = CA) MG/DL 8.7-9.7 PROTHROMBIN [id number] 05:34:00 Test Item Value Reference Range Interpretation [...] eric embolism. 3.0 - 4.5 CBC W/AUTO [id number] 05:16:00 Test Item Value Reference Range Interpretation [...] = 0.00 K/mm3 0.0-0.1 N NRBC#) PROTHROMBIN [id number] 06:34:00 Test Item Value Reference Range Interpretation [...] Mechanical prosthesis hear t valves, recurrent syste eirc embolism. 3.0 - 4.5 BASIC METABOLIC [id number] 06:25:00 Test Item Value Reference Range Interpretation [...] 7.3 MG/DL 8.4-10.2 L CA) BASIC METABOLIC [id number] 06:22:00 Test Item Value Reference Range Interpretation [...] (test code = CA) MG/DL 8.7-9.7 LACTIC [id number] 06:19:00 Test Item Value Reference Range Interpretation Comments LACTIC ACID (test code = LACT) 0.8 MMOL/L 0.7-2.1 N CBC W/AUTO [id number] 06:02:00 Test Item Value Reference Range Interpretation [...] 0.00 K/mm3 0.0-0.1 N NRBC#) GLUCOSE BEDSIDE [id number] 10:01:00 Test Item Value Reference Range Interpretation Comments GLUCOSE BEDSIDE TESTING (test code = 96 MG/DL 60-99 N GLUBED) GLUCOSE BEDSIDE [id number] 09:16:00 Test Item Value Reference Range Interpretation Comments GLUCOSE BEDSIDE TESTING (test code = 58 MG/DL 60-99 L GLUBED) BASIC METABOLIC [id number] 06:07:00 Test Item Value Reference Range Interpretation [...] = 7.4 MG/DL 8.4-10.2 L CA) PROTHROMBIN [id number] 06:06:00 Test Item Value Reference Range Interpretation [...] eric embolism. 3.0 - 4.5 BASIC METABOLIC [id number] 06:01:00 Test Item Value Reference Range Interpretation [...] code = MG/DL 8.7-9.7 CA) BASIC METABOLIC [id number] 05:59:00 Test Item Value Reference Range Interpretation [...] code = CA) MG/DL 8.7-9.7 BASIC METABOLIC [id number] 05:58:00 Test Item Value Reference Range Interpretation [...] code = CA) MG/DL 8.7-9.7 CBC W/AUTO [id number] 05:51:00 Test Item Value Reference Range Interpretation [...] 0.00 K/mm3 0.0-0.1 N NRBC#) COMPREHENSIVE METABOLIC [id number] 06:04:00 Test Item Value Reference Range Interpretation [...] N (test code = ALKP) COMPREHENSIVE METABOLIC [id number] 05:59:00 Test Item Value Reference Range Interpretation [...] code = UNITS/L 38-126 ALKP) CBC W/AUTO [id number] 05:43:00 Test Item Value Reference Range Interpretation [...] code = 0.02 K/mm3 0.0-0.1 N NRBC#) [id number] 23:35:00 Test Item Value Reference Range Interpretation Comments HEMOGLOBIN (test code = HGB) 9.7 G/DL 11.2-14.9 L COMPREHENSIVE METABOLIC [id number] 20:53:00 Test Item Value Reference Range Interpretation [...] GREEN TOP WERE SENT AT 18:10COMPREHENSIVE METABOLIC [id number] 20:50:00 Test Item Value Reference Range Interpretation [...] DRAW BLOOD, REASON: CBNNOTIFIED PATIENT CARE STAFF: [facility] 12/13/19 AT 1741 BY Kristen Henry NO GREEN TOP WERE SENT AT 18:10COMPREHENSIVE METABOLIC [id number] 20:48:00 Test Item Value Reference Range Interpretation [...] DRAW BLOOD, REASON: CBNNOTIFIED PATIENT CARE STAFF: [facility] 12/13/19 AT 1741 BY Kristen Henry NO GREEN TOP WERE SENT AT 18:10COMPREHENSIVE METABOLIC [id number] 20:47:00 Test Item Value Reference Range Interpretation [...] BY Kristen Henry An- XR ABDOMEN 1 [id number] 18:16:00 [facility] 1940 Sex: F Patient Name: JORGE A HORTA Unit No: [id number] EXAMS: CPT CODE: [id number] XR ABDOMEN 1 V 29934 Dictation location: H37. ABDOMEN, 1 VIEW HISTORY:GI [...] t.SDR.SP17 Orig Print D/T: S: 12/13/2019 (1819) [facility] NAME: JORGE A HORTA [address] PHYS: MINMO99 - [place] [address] : 1940 AGE: 79 SEX: F LOC: Z.SI06 A PHONE #: [phone] EXAM DATE: 12/13/2019 STATUS: ADM IN FAX #: [phone] RADIOLOGY NO: PAGE 1 Signed ReportLACTIC [id number] 10:38:00 Test Item Value Reference Range Interpretation Comments LACTIC ACID (test code = LACT) 1.4 MMOL/L 0.7-2.1 N PROTHROMBIN [id number] 06:13:00 Test Item Value Reference Range Interpretation [...] eric embolism. 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 AM LABSCBC W/AUTO [id number] 06:07:00 Test Item Value Reference Range Interpretation [...] = 0.00 K/mm3 0.0-0.1 N NRBC#) DIFFERENTIAL [id number] 06:07:00 Test Item Value Reference Range Interpretation Comments RBC MORPHOLOGY REQUIRED (test code = RBCM) PLATELET ESTIMATE (test code = PLTEST) ADEQUATE PLATELET MORPHOLOGY (test code = NORMAL PLTMORPH) CBC W/AUTO [id number] 06:07:00 Test Item Value Reference Range Interpretation [...] = 0.00 K/mm3 0.0-0.1 N NRBC#) DIFFERENTIAL [id number] 06:07:00 Test Item Value Reference Range Interpretation Comments RBC MORPHOLOGY REQUIRED (test code = RBCM) PLATELET ESTIMATE (test code = PLTEST) ADEQUATE PLATELET MORPHOLOGY (test code = NORMAL PLTMORPH) - XR ABDOMEN 1 [id number] 11:55:00 [facility] : 1940 Sex: F Patient Name: JORGE A HORTA Unit No: [id number] EXAMS: CPT CODE: [id number] XR ABDOMEN 1 V 70940 EXAMINATION: - XR ABDOMEN 1 V. LOCATION: [...] Technologist: ANKUR Jalloh, RT(R) Transcrpt Date/Tm/Trnsp: 12/12/2019 (0689) t.SDR.PR7 Orig Print D/T: S: (9825) [facility] NAME: JORGE A HORTA [address] PHYS: Gail Garcia MD R[address] [place] [address] : 1940 AGE: 79 SEX: F [facility] NO: [id number] LOC: Z.SI06 A PHONE #: [phone] EXAM DATE: 12/12/2019 STATUS: ADM IN FAX #: [phone] RADIOLOGY NO: PAGE 1 Signed Report PROTHROMBIN [id number] 09:42:00 Test Item Value Reference Range Interpretation [...] eric embolism. 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 AM LABS do at 0700CBC W/AUTO [id number] 09:36:00 Test Item Value Reference Range Interpretation [...] 0.00 K/mm3 0.0-0.1 N NRBC#) [facility] METABOLIC [id number] 05:56:00 Test Item Value Reference Range Interpretation [...] 8.0 MG/DL 8.4-10.2 L CA) BASIC METABOLIC [id number] 05:55:00 Test Item Value Reference Range Interpretation [...] code = MG/DL 8.7-9.7 CA) BASIC METABOLIC [id number] 05:53:00 Test Item Value Reference Range Interpretation [...] (test code = CA) MG/DL 8.7-9.7 PROTHROMBIN [id number] 05:23:00 Test Item Value Reference Range Interpretation [...] eric embolism. 3.0 - 4.5 Comments to Machine Lay Out Worker: .CBC W/AUTO [id number] 05:15:00 Test Item Value Reference Range Interpretation [...] 0.00 K/mm3 0.0-0.1 N NRBC#) BASIC METABOLIC [id number] 11:19:00 Test Item Value Reference Range Interpretation [...] 7.6 MG/DL 8.4-10.2 L CA) BASIC METABOLIC [id number] 11:18:00 Test Item Value Reference Range Interpretation [...] code = MG/DL 8.7-9.7 CA) BASIC METABOLIC [id number] 11:15:00 Test Item Value Reference Range Interpretation [...] code = CA) MG/DL 8.7-9.7 CBC W/AUTO [id number] 11:05:00 Test Item Value Reference Range Interpretation [...] = 0.00 K/mm3 0.0-0.1 N NRBC#) PROTHROMBIN [id number] 04:49:00 Test Item Value Reference Range Interpretation [...] eric embolism. 3.0 - 4.5 Comments to Machine Lay Out Worker: .URINALYSIS [id number] 17:50:00 Test Item Value Reference Range Interpretation [...] code = UACULT) SOURCE OF URINE: VOIDEDUA [id number] 17:50:00 Test Item Value Reference Range Interpretation Comments UA RBC (test code = RBCU) 0-3 RBC/HPF 0-3 UA WBC (test code = XWBCU) 3-5 WBC/HPF 0-5 UA EPITHELIAL CELLS (test code FEW EPI/HPF FEW = EPIU) UA BACTERIA (test code = MODERATE NONE A XBACU) UA YEAST (test code = YEASTU) MODERATE #/HPF NONE A SOURCE OF URINE: VOIDEDURINALYSIS [id number] 17:35:00 Test Item Value Reference Range Interpretation [...] Chk = UACULT) SOURCE OF URINE: VOIDEDUA [id number] 17:35:00 Test Item Value Reference Range Interpretation Comments UA RBC (test code = RBCU) RBC/HPF 0-3 UA WBC (test code = XWBCU) WBC/HPF 0-5 UA EPITHELIAL CELLS (test code = EPI/HPF FEW EPIU) UA BACTERIA (test code = XBACU) NONE SOURCE OF URINE: VOIDEDURINALYSIS [id number] 17:35:00 Test Item Value Reference Range Interpretation [...] Chk = UACULT) SOURCE OF URINE: VOIDEDUA [id number] 17:35:00 Test Item Value Reference Range Interpretation Comments UA RBC (test code = RBCU) RBC/HPF 0-3 UA WBC (test code = XWBCU) WBC/HPF 0-5 UA EPITHELIAL CELLS (test code = EPI/HPF FEW EPIU) UA BACTERIA (test code = XBACU) NONE SOURCE OF URINE: VOIDEDCBC W/AUTO [id number] 05:51:00 Test Item Value Reference Range Interpretation [...] 0-0 H code = NRBC) BASIC METABOLIC [id number] 05:30:00 Test Item Value Reference Range Interpretation [...] code = 7.6 MG/DL 8.4-10.2 L CA) [id number] 05:30:00 Test Item Value Reference Range Interpretation Comments MAGNESIUM (test code = MAG) 2.3 MG/DL 1.6-2.3 N BASIC METABOLIC [id number] 05:24:00 Test Item Value Reference Range Interpretation [...] CALCIUM (test code = MG/DL 8.7-9.7 CA) [id number] 05:24:00 Test Item Value Reference Range Interpretation Comments MAGNESIUM (test code = MAG) MG/DL 1.6-2.3 BASIC METABOLIC [id number] 05:22:00 Test Item Value Reference Range Interpretation [...] CALCIUM (test code = CA) MG/DL 8.7-9.7 [id number] 05:22:00 Test Item Value Reference Range Interpretation Comments MAGNESIUM (test code = MAG) MG/DL 1.6-2.3 BASIC METABOLIC [id number] 05:21:00 Test Item Value Reference Range Interpretation [...] CALCIUM (test code = CA) MG/DL 8.7-9.7 [id number] 05:21:00 Test Item Value Reference Range Interpretation Comments MAGNESIUM (test code = MAG) MG/DL 1.6-2.3 PROTHROMBIN [id number] 05:19:00 Test Item Value Reference Range Interpretation [...] eric embolism. 3.0 - 4.5 Comments to Machine Lay Out Worker: .CBC W/AUTO [id number] 05:10:00 Test Item Value Reference Range Interpretation [...] K/mm3 0.0-0.1 N NRBC#) - XR CHEST [id number] 14:16:00 [facility] : 1940 Sex: F Patient Name: JORGE A HORTA Unit No: [id number] EXAMS: CPT CODE: [id number] XR CHEST 1V 15325 CHEST 1 VIEW CLINICAL INFORMATION: atelectasis COMPARISON: [...] AuraAM18 Orig Print D/T: S: 12/08/2019 (1420) [facility] NAME: JORGE A HORTA [id number] PHYS: MINMO99 - [place] [address] : 1940 AGE: 79 SEX: F LOC: ZARTIE06 Monty PHONE #: [phone] EXAM DATE: 12/08/2019 STATUS: ADM IN FAX #: [phone] RADIOLOGY NO: PAGE 1 Signed ReportBASIC METABOLIC [id number] 10:18:00 Test Item Value Reference Range Interpretation [...] 7.6 MG/DL 8.4-10.2 L CA) BASIC METABOLIC [id number] 10:11:00 Test Item Value Reference Range Interpretation [...] (test code = MG/DL 8.7-9.7 CA) PROTHROMBIN [id number] 09:52:00 Test Item Value Reference Range Interpretation [...] eric embolism. 3.0 - 4.5 CBC W/AUTO [id number] 09:42:00 Test Item Value Reference Range Interpretation [...] = 0.05 K/mm3 0.0-0.1 N NRBC#) LACTIC [id number] 11:31:00 Test Item Value Reference Range Interpretation Comments LACTIC ACID (test code = LACT) 1.8 MMOL/L 0.7-2.1 N BASIC METABOLIC [id number] 05:33:00 Test Item Value Reference Range Interpretation [...] 7.7 MG/DL 8.4-10.2 L CA) BASIC METABOLIC [id number] 05:12:00 Test Item Value Reference Range Interpretation [...] code = MG/DL 8.7-9.7 CA) BASIC METABOLIC [id number] 05:09:00 Test Item Value Reference Range Interpretation [...] (test code = CA) MG/DL 8.7-9.7 PROTHROMBIN [id number] 04:51:00 Test Item Value Reference Range Interpretation [...] eric embolism. 3.0 - 4.5 Comments to Machine Lay Out Worker: .CBC W/AUTO [id number] 04:36:00 Test Item Value Reference Range Interpretation [...] = 0.02 K/mm3 0.0-0.1 N NRBC#) LACTIC [id number] 11:55:00 Test Item Value Reference Range Interpretation Comments LACTIC ACID (test code = LACT) 1.5 MMOL/L 0.7-2.1 N BASIC METABOLIC [id number] 10:02:00 Test Item Value Reference Range Interpretation [...] 7.6 MG/DL 8.4-10.2 L CA) BASIC METABOLIC [id number] 10:01:00 Test Item Value Reference Range Interpretation [...] code = MG/DL 8.7-9.7 CA) BASIC METABOLIC [id number] 10:00:00 Test Item Value Reference Range Interpretation [...] code = CA) MG/DL 8.7-9.7 BASIC METABOLIC [id number] 08:40:00 Test Item Value Reference Range Interpretation [...] BY DALJIT: HEMOLYSISNOTIFIED PATIENT CARE STAFF: VERONICALACTIC [id number] 08:38:00 Test Item Value Reference Range Interpretation Comments LACTIC ACID (test code = LACT) 2.3 MMOL/L 0.7-2.1 H UNABLE TO DRAW BLOOD, REASON: CBNNOTIFIED PATIENT CARE STAFF: EDWARD 12/05/19 AT 2155 BY Kristen Henry RN.BASIC METABOLIC [id number] 08:35:00 Test Item Value Reference Range Interpretation [...] BY DALJIT: HEMOLYSISNOTIFIED PATIENT CARE STAFF: HELGANICAPROTHROMBIN [id number] 08:21:00 Test Item Value Reference Range Interpretation [...] eric embolism. 3.0 - 4.5 Comments to Machine Lay Out Worker: .CBC W/AUTO [id number] 06:49:00 Test Item Value Reference Range Interpretation [...] = 0.00 K/mm3 0.0-0.1 N NRBC#) LACTIC [id number] 19:25:00 Test Item Value Reference Range Interpretation Comments LACTIC ACID (test code = LACT) 2.2 MMOL/L 0.7-2.1 H LACTIC [id number] 14:59:00 Test Item Value Reference Range Interpretation Comments LACTIC ACID (test code = LACT) 2.5 MMOL/L 0.7-2.1 H LACTIC [id number] 12:27:00 Test Item Value Reference Range Interpretation Comments LACTIC ACID (test code = LACT) 2.8 MMOL/L 0.7-2.1 H PROTHROMBIN [id number] 09:37:00 Test Item Value Reference Range Interpretation [...] Zachery Kang IS A CBN DRAWComments to Machine Lay Out Worker: . BASIC METABOLIC [id number] 09:29:00 Test Item Value Reference Range Interpretation [...] BYZachery Kang IS A CBN DRAWBASIC METABOLIC [id number] 08:58:00 Test Item Value Reference Range Interpretation [...] PATIENT CARE STAFF: PIERRE 12/05/19 [facility] A [facility]BN DRAWCBC W/AUTO [id number] 08:51:00 Test Item Value Reference Range Interpretation [...] PATIENT CARE STAFF: CBON 12/05/19 AT 0630 [facility],LavadaPT IS A CBN DRAW- US ABDOMEN [id number] 18:50:00[facility] : 1940 Sex: F Patient Name: JORGE A HORTA Unit No: [id number] EXAMS: CPT CODE: [id number] US ABDOMEN COMPLETE 12160 EXAM: Abdominal ultrasound complete Location: H24 HISTORY: [...] Reported and signed by: Olayinka Weiner M.D. [facility] NAME: JORGE A HORTA [id number] PHYS: [place] [address] : 1940 AGE: 79 SEX: F LOC: Z.SI06 A PHONE #: [phone] EXAM DATE: 12/04/2019 STATUS: ADM IN FAX #: [phone] RADIOLOGY NO: PAGE 1 Signed Report (CONTINUED) Patient Name: JORGE A HORTA Unit No: [id number] EXAMS: CPT CODE: [id number] US ABDOMEN COMPLETE 34148 <Continued> CC: Tevin Sutherland MD Technologist: Citlaly Jones RDMS() Transcrpt Date/Tm/Trnsp: 12/04/2019 (1849) t.SDR.AL7 Orig Print D/T: S: 12/04/2019 (1853) [facility] NAME: JORGE A HORTA [id number] PHYS: Donna Pino MD [place] [id number] : 1940 AGE: 79 SEX: F LOC: Z.SI06 A PHONE #: [phone] EXAM DATE: 12/04/2019 STATUS: ADM IN FAX #: [phone] RADIOLOGY NO: PAGE 2 Signed Report- CT ABD PELVIS W/[id number] 18:09:00 [facility] : 1940 Sex: F Patient Name: JORGE A HORTA Unit No: [id number] EXAMS: CPT CODE: [id number] CT ABD PELVIS W/CONT 97557 EXAM: - CT ABD PELVIS W/CONT Location: [...] within the abdominal aorta. No aneurysmal dilatation. [facility] NAME: EFREN [id number] PHYS: [place] [address] : 1940 AGE: 79 SEX: F LOC: Z.SI06 A PHONE #: [phone] EXAM DATE: 12/04/2019 STATUS: ADM IN FAX #: [phone] RAD #: D/C DT PAGE 1 Signed Report (CONTINUED) Patient Name: JORGE A HORTA Unit No: [id number] EXAMS: CPT CODE: [id number] CT ABD PELVIS W/CONT 61296 <Continued> Lymph nodes:No adenopathy. Peritoneum/retroperitoneum: There is [...] A HORTA [address] PHYS: [place] [address] : 1940 AGE: 79 SEX: F LOC: Z.SI06 A PHONE #: [phone] EXAM DATE: 12/04/2019 STATUS: ADM IN FAX #: [phone] RAD #: D/C DT PAGE 2 Signed Report Patient Name: JORGE A HORTA Unit No: [id number] EXAMS: CPT CODE: [id number] CT ABD PELVIS W/CONT 67783 <Continued> Orig Print D/T: S: 12/04/2019 (1811) [facility] NAME: JORGE A HORTA [address] PHYS: Donna Pino MD [place] [id number] : 1940 AGE: 79 SEX: FACCT NO: [id number] LOC: Z.SI06 A PHONE #: [phone] EXAM DATE: 12/04/2019 STATUS: ADM IN FAX #: [phone] RAD #: D/C DT PAGE 3 Signed ReportGLUCOSE BEDSIDE [id number] 17:09:00 Test Item Value Reference Range Interpretation Comments GLUCOSE BEDSIDE TESTING (test code 134 MG/DL 60-99 H = GLUBED) HEART [id number] 13:06:00 Test Item Value Reference Range Interpretation Comments HEART VALVE (test code = HEARTV) RUN DATE: 12/04/19 [facility] PAGE 1 RUN TIME: 1306 Specimen Inquiry RUN USER: INTERFACE PATIENT: JORGE A HORTA LOC: JEF U #: [id number] AGE/SX: 79/F ROOM: [facility] RE11/26/19[facility] DR: Tevin Samuels MD : 38 BED: A DIS: STATUS: ADM IN TLOC: SPEC #: 20:COCHRAN:[id number] RECD: 12/01/19 STATUS: DEVORA ALLEN #: [id number] KEENAN: 11/30/19 [facility] DR: Tevin Samuels MD ENTERED: 12/01/19 SP TYPE: HEARTV OTHR DR: Self Referred Home Bryant MD, Robert L MD Mikkilineni, Rajyalakshmi MD Pepper, Gregory S MD Sankaranarayanan, Venkataraj anORDERED: DECAL, SURG PATH LVL 4 CODES: [id number] - AORTIC VALVE, N V96316 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 [address] Home Bryant MD R[address] [place] [address] [place] [address] [place] [address] Ramu Sutherland MD [address] [place], [place] [address] [place] [address] [facility] [address] [place], [place] [address] Taurus Dixon [address] [place] [address] CONTINUED ON NEXT PAGE RUN DATE: 12/04/19 [facility] PAGE 2 RUN TIME: 1306 Specimen Inquiry RUN USER: INTERFACE SPEC #: 20:COCHRAN:[id number] PATIENT: LANEJORGE A #[id number] (Continued) PROCEDURES: DECAL (12/01/19) SURG PATH LVL 4 (12/01/19) TISSUES: A. AORTIC VALVE, NOS - AORTIC VALVE CPT CODES CPT CODE(S): 04470 , 15833 , , , , , FINAL DIAGNOSIS [...] 12/04/19 1306 END OF REPORT COMPREHENSIVE METABOLIC [id number] 13:00:00 Test Item Value Reference Range Interpretation [...] 38-126 N (test code = ALKP) PROTHROMBIN [id number] 12:57:00 Test Item Value Reference Range Interpretation [...] eric embolism. 3.0 - 4.5 COMPREHENSIVE METABOLIC [id number] 12:55:00 Test Item Value Reference Range Interpretation [...] 38-126 (test code = ALKP) CBC W/AUTO [id number] 12:54:00 Test Item Value Reference Range Interpretation [...] 0.00 K/mm3 0.0-0.1 N NRBC#) COMPREHENSIVE METABOLIC [id number] 12:53:00 Test Item Value Reference Range Interpretation [...] code = UNITS/L 38-126 ALKP) GLUCOSE BEDSIDE [id number] 12:46:00 Test Item Value Reference Range Interpretation Comments GLUCOSE BEDSIDE TESTING 111 MG/DL 60-99 H Noti fied Nurse~ (test code = GLUBED) GLUCOSE BEDSIDE [id number] 10:31:00 Test Item Value Reference Range Interpretation Comments GLUCOSE BEDSIDE TESTING (test code 109 MG/DL 60-99 H = GLUBED) GLUCOSE BEDSIDE [id number] 10:31:00 Test Item Value Reference Range Interpretation Comments GLUCOSE BEDSIDE TESTING (test code 112 MG/DL 60-99 H = GLUBED) GLUCOSE BEDSIDE [id number] 10:31:00 Test Item Value Reference Range Interpretation Comments GLUCOSE BEDSIDE TESTING (test code 124 MG/DL 60-99 H = GLUBED) GLUCOSE BEDSIDE [id number] 10:30:00 Test Item Value Reference Range Interpretation Comments GLUCOSE BEDSIDE TESTING (test code 143 MG/DL 60-99 H = GLUBED) - XR CHEST [id number] 08:28:00 [facility] : 1940 Sex: F Patient Name: JORGE A HORTA Unit No: [id number] EXAMS: CPT CODE: [id number] XR CHEST 1V 20403 B2 EXAM: - XR CHEST 1V HISTORY: [...] t.CARLAR.VB7 Orig Print D/T: S: 12/04/2019 (0831) [facility] NAME: JORGE A HORTA [id number] PHYS: [place] [address] : 1940 AGE: 79 SEX: F LOC: Z.SI06 A PHONE #: [phone] EXAM DATE: 12/04/2019 STATUS: ADM IN FAX #: [phone] RADIOLOGY NO: PAGE 1 Signed ReportGLUCOSE BEDSIDE [id number] 08:00:00 Test Item Value Reference Range Interpretation Comments GLUCOSE BEDSIDE TESTING (test code 167 MG/DL 60-99 H = GLUBED) GLUCOSE BEDSIDE [id number] 20:26:00 Test Item Value Reference Range Interpretation Comments GLUCOSE BEDSIDE TESTING (test code 140 MG/DL 60-99 H = GLUBED) - XR CHEST [id number] 15:49:00 [facility] : 1940 Sex: F Patient Name: JORGE A HORTA Unit No: [id number] EXAMS: CPT CODE: [id number] XR CHEST 1V 03488 EXAM: - XR CHEST 1V CLINICAL HISTORY: [...] airspace opacity or large pneumothorax. Unchanged cardiomegaly. [id number] Reported and signed by: Jim Rosales MD CC: Tevin Samuels; Ramu Sutherland MD Technologist: Zoltan Low (RT) Transcrpt Date/Tm/Trnsp: 12/03/2019 (3177) t.CARLAR.JW22 Orig Print D/T: S: 12/03/2019 (7448) [facility] NAME: JORGE A HORTA [id number] PHYS: [place] [address] : 1940 AGE: 79 SEX: F LOC: Z.SI06 A PHONE #: [phone] EXAM DATE: 12/03/2019 STATUS: ADM IN FAX #: [phone] RADIOLOGY NO: PAGE 1 Signed ReportGLUCOSE BEDSIDE [id number] 11:56:00 Test Item Value Reference Range Interpretation Comments GLUCOSE BEDSIDE TESTING (test code 160 MG/DL 60-99 H = GLUBED) - XR CHEST [id number] 06:30:00 [facility] : 1940 Sex: F Patient Name: JORGE A HORTA Unit No: [id number] EXAMS: CPT CODE: [id number] XR CHEST 1V 19321 Location of dictation: B2 Portable chest one [...] t.SDR.PXC Orig Print D/T: S: 12/03/2019 (632) [facility] NAME: JORGE A HORTA [id number] PHYS: [place] [address] : 1940 AGE: 79 SEX: F LOC: Z.SI06 A PHONE #: [phone] EXAM DATE: 12/03/2019 STATUS: ADM IN FAX #: [phone] RADIOLOGY NO: PAGE 1 Signed Report GLUCOSE BEDSIDE [id number] 21:37:00 Test Item Value Reference Range Interpretation Comments GLUCOSE BEDSIDE TESTING (test code 102 MG/DL 60-99 H = GLUBED) GLUCOSE BEDSIDE [id number] 17:38:00 Test Item Value Reference Range Interpretation Comments GLUCOSE BEDSIDE TESTING (test code 155 MG/DL 60-99 H = GLUBED) GLUCOSE BEDSIDE [id number] 12:02:00 Test Item Value Reference Range Interpretation Comments GLUCOSE BEDSIDE TESTING (test code 139 MG/DL 60-99 H = GLUBED) PROTHROMBIN [id number] 10:15:00 Test Item Value Reference Range Interpretation [...] 12/02/19 AT 0715 BY Lawrence LeggetthGLUCOSE BEDSIDE [id number] 08:05:00 Test Item Value Reference Range Interpretation Comments GLUCOSE BEDSIDE TESTING (test code 135 MG/DL 60-99 H = GLUBED) - XR CHEST [id number] 06:21:00 [facility] : 1940 Sex: F Patient Name: JORGE A HORTA Unit No: [id number] EXAMS: CPT CODE: [id number] XR CHEST 1V 69928 HISTORY: Follow-up Location: C3 COMPARISON:12/01/2019 FINDINGS: 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 Endotracheal tube and nasogastric tube have been removed. Wilton- Laura catheter has been removed. No pneumothorax. Mild cardiomegaly persists. Perihilar and retrocardiac left basilar opacity persists. No other changes from prior study. IMPRESSION: 1. Interval extubation and interval removal of Wilton-Laura catheter. 2. No pneumothorax. No other changes from prior study. at 0621 Reported and signed by: Donna Foy MD CC: Tevin Samuels; Ramu Sutherland MD Technologist: Yobani Elias, RT(R) Transcrpt Date/Tm/Trnsp: 12/02/2019 (06) AuraRXC2 Orig Print D/T: S: 12/02/2019(624) [facility] NAME: JORGE A HORTA [id number] PHYS: [place] [address] : 1940 AGE: 79 SEX: F LOC: Z.SI06 A PHONE #: [phone] EXAM DATE: 12/02/2019 STATUS: ADM IN FAX #: [phone] RADIOLOGY NO: PAGE 1 Signed ReportGLUCOSE BEDSIDE [id number] 19:57:00 Test Item Value Reference Range Interpretation Comments GLUCOSE BEDSIDE TESTING (test code 116 MG/DL 60-99 H = GLUBED) GLUCOSE BEDSIDE [id number] 18:10:00 Test Item Value Reference Range Interpretation Comments GLUCOSE BEDSIDE TESTING (test code 128 MG/DL 60-99 H = GLUBED) GLUCOSE BEDSIDE [id number] 17:09:00 Test Item Value Reference Range Interpretation Comments GLUCOSE BEDSIDE TESTING (test code 120 MG/DL 60-99 H = GLUBED) GLUCOSE BEDSIDE [id number] 15:48:00 Test Item Value Reference Range Interpretation Comments GLUCOSE BEDSIDE TESTING (test code 122 MG/DL 60-99 H = GLUBED) GLUCOSE BEDSIDE [id number] 14:09:00 Test Item Value Reference Range Interpretation Comments GLUCOSE BEDSIDE TESTING (test code 117 MG/DL 60-99 H = GLUBED) GLUCOSE BEDSIDE [id number] 13:23:00 Test Item Value Reference Range Interpretation Comments GLUCOSE BEDSIDE TESTING (test code 112 MG/DL 60-99 H = GLUBED) GLUCOSE BEDSIDE [id number] 12:26:00 Test Item Value Reference Range Interpretation Comments GLUCOSE BEDSIDE TESTING (test code 121 MG/DL 60-99 H = GLUBED) GLUCOSE BEDSIDE [id number] 11:12:00 Test Item Value Reference Range Interpretation Comments GLUCOSE BEDSIDE TESTING (test code 133 MG/DL 60-99 H = GLUBED) GLUCOSE BEDSIDE [id number] 10:24:00 Test Item Value Reference Range Interpretation Comments GLUCOSE BEDSIDE TESTING (test code 139 MG/DL 60-99 H = GLUBED) GLUCOSE BEDSIDE [id number] 09:26:00 Test Item Value Reference Range Interpretation Comments GLUCOSE BEDSIDE TESTING (test code 139 MG/DL 60-99 H = GLUBED) GLUCOSE BEDSIDE [id number] 08:31:00 Test Item Value Reference Range Interpretation Comments GLUCOSE BEDSIDE TESTING (test code 138 MG/DL 60-99 H = GLUBED) - XR CHEST [id number] 07:58:00 [facility] 1940 Sex: F Patient Name: JORGE A HORTA Unit No: [id number] EXAMS: CPT CODE: [id number] XR CHEST 1V 74096 B2 EXAM: - XR CHEST 1V HISTORY: S/P CABG COMPARISON: 11/30/2019 FINDINGS: Endotracheal tube, nasogastric tube, Wilton-Laura catheter and right subclavian central line in [...] [id number] Orig Print D/T: S: 12/01/2019 (0801) [facility] J[facility] H[facility] [id number] [address] PHYS: [place] [address] : 1940 AGE: 79 SEX: F LOC: [id number] PHONE #: [phone] EXAM DATE: 12/01/2019 STATUS: ADM IN FAX #: [phone] RADIOLOGY NO: PAGE 1 Signed ReportGLUCOSE BEDSIDE [id number] 07:12:00 Test Item Value Reference Range Interpretation Comments GLUCOSE BEDSIDE TESTING (test code 137 MG/DL 60-99 H = GLUBED) GLUCOSE BEDSIDE [id number] 06:21:00 Test Item Value Reference Range Interpretation Comments GLUCOSE BEDSIDE TESTING (test code 141 MG/DL 60-99 H = GLUBED) GLUCOSE BEDSIDE [id number] 03:09:00 Test Item Value Reference Range Interpretation Comments GLUCOSE BEDSIDE TESTING (test code 158 MG/DL 60-99 H = GLUBED) GLUCOSE BEDSIDE [id number] 02:23:00 Test Item Value Reference Range Interpretation Comments GLUCOSE BEDSIDE TESTING (test code 149 MG/DL 60-99 H = GLUBED) GLUCOSE BEDSIDE [id number] 23:56:00 Test Item Value Reference Range Interpretation Comments GLUCOSE BEDSIDE TESTING (test code 171 MG/DL 60-99 H = GLUBED) GLUCOSE BEDSIDE [id number] 23:08:00 Test Item Value Reference Range Interpretation Comments GLUCOSE BEDSIDE TESTING (test code 163 MG/DL 60-99 H = GLUBED) GLUCOSE BEDSIDE [id number] 21:54:00 Test Item Value Reference Range Interpretation Comments GLUCOSE BEDSIDE TESTING (test code 164 MG/DL 60-99 H = GLUBED) BASIC METABOLIC [id number] 21:36:00 Test Item Value Reference Range Interpretation [...] code = 8.2 MG/DL 8.4-10.2 L CA) [id number] 21:36:00 Test Item Value Reference Range Interpretation Comments MAGNESIUM (test code = 6.7 MG/DL 1.6-2.3 BERNABE Carr& MAG) READBACK ON AT 2136 BY Dario Maria BASIC METABOLIC [id number] 21:33:00 Test Item Value Reference Range Interpretation [...] code = 8.2 MG/DL 8.4-10.2 L CA) [id number] 21:33:00 Test Item Value Reference Range Interpretation Comments MAGNESIUM (test code = MAG) MG/DL 1.6-2.3 PROTHROMBIN [id number] 21:31:00 Test Item Value Reference Range Interpretation [...] eric embolism. 3.0 - 4.5 Comments to Machine Lay Out Worker: PEDIATRIC TUBES!Comments to Machine Lay Out Worker: PEDIATRIC TUBESPTT [id number] 21:31:00 Test Item Value Reference Range Interpretation Comments PTT ACTIVATED (test code = APTT) 21.8 SECONDS 25.1-36.5 L Comments to Machine Lay Out Worker: PEDIATRIC TUBES!Comments to Machine Lay Out Worker: PEDIATRIC TUBESBASIC METABOLIC [id number] 21:30:00 Test Item Value Reference Range Interpretation [...] CALCIUM (test code = CA) MG/DL 8.7-9.7 [id number] 21:30:00 Test Item Value Reference Range Interpretation Comments MAGNESIUM (test code = MAG) MG/DL 1.6-2.3 CBC W/AUTO [id number] 21:24:00 Test Item Value Reference Range Interpretation [...] K/mm3 0.0-0.1 N NRBC#) - XR CHEST [id number] 20:54:00 [facility] : 1940 Sex: F Patient Name: JORGE A HORTA Unit No: [id number] EXAMS: CPT CODE: [id number] XR CHEST 1V 80023 EXAM: - XR CHEST 1V LOCATION: C3 HISTORY: S/P CABG COMPARISON: 11/29/2019 FINDINGS: Single view of the chest. Right subclavian catheter tip overlies the cubital junction. Wilton-Laura catheter tip overlies main pulmonary trunk. Endotracheal [...] t.SDR.HV2 Orig Print D/T: S: 11/30/2019 (2056) [facility] NAME: JORGE A HORTA [id number] PHYS: [place] [address] : 1940 AGE: 79 SEX: F LOC: Z.SI06 A PHONE #: [phone] EXAM DATE: 11/30/2019 STATUS: ADM IN FAX #: [phone] RADIOLOGY NO: PAGE 1 Signed ReportGLUCOSE BEDSIDE [id number] 20:17:00 Test Item Value Reference Range Interpretation Comments GLUCOSE BEDSIDE TESTING (test code 206 MG/DL 60-99 H = GLUBED) BASIC METABOLIC [id number] 19:45:00 Test Item Value Reference Range Interpretation [...] 7.7 MG/DL 8.4-10.2 L CA) BASIC METABOLIC [id number] 19:42:00 Test Item Value Reference Range Interpretation [...] (test code = MG/DL 8.7-9.7 CA) PROTHROMBIN [id number] 19:42:00 Test Item Value Reference Range Interpretation [...] syste eric embolism. 3.0 - 4.5 PTT [id number] 19:42:00 Test Item Value Reference Range Interpretation Comments PTT ACTIVATED (test code = APTT) 26.3 SECONDS 25.1-36.5 N BASIC METABOLIC [id number] 19:39:00 Test Item Value Reference Range Interpretation [...] code = CA) MG/DL 8.7-9.7 BASIC METABOLIC [id number] 19:38:00 Test Item Value Reference Range Interpretation [...] code = CA) MG/DL 8.7-9.7 CBC W/AUTO [id number] 19:32:00 Test Item Value Reference Range Interpretation [...] code = 0.00 K/mm3 0.0-0.1 N NRBC#) [id number] 18:06:00 Test Item Value Reference Range Interpretation Comments POTASSIUM (test code = K) 5.9 MMOL/L 3.5-5.1 H [id number] 18:06:00 Test Item Value Reference Range Interpretation Comments GLUCOSE (test code = GLU) 146 MG/DL 74-106 H [id number] 18:03:00 Test Item Value Reference Range Interpretation Comments POTASSIUM (test code = K) 5.9 MMOL/L 3.5-5.1 H [id number] 18:03:00 Test Item Value Reference Range Interpretation Comments GLUCOSE (test code = GLU) MG/DL 74-106 [id number] 17:57:00 Test Item Value Reference Range Interpretation Comments HEMOGLOBIN (test code = HGB) 7.2 G/DL 11.2-14.9 L [id number] 17:57:00 Test Item Value Reference Range Interpretation Comments HEMATOCRIT (test code = HCT) 22.9 % 33.2-43.5 L DIFFERENTIAL [id number] 17:03:00 Test Item Value Reference Range Interpretation Comments RBC MORPHOLOGY REQUIRED (test code = NORMAL RBCM) HYPERSEGMENTED POLYS (test code = FEW NONE HYPP) PLATELET ESTIMATE (test code = ADEQUATE ADEQUATE PLTEST) PLATELET MORPHOLOGY (test code = NORMAL NORMAL PLTMORPH) [id number] 17:03:00 Test Item Value Reference Range Interpretation Comments HEMOGLOBIN (test code = 4.5 G/DL 11.2-14.9 LL CALL ED TO TIFFANY Patricia HGB) GROUP SEGMENT CONSULTANT & READBAC K ON 11/30/19 AT 162 5 BY Malachi Santamaria [id number] 17:03:00 Test Item Value Reference Range Interpretation Comments HEMATOCRIT (test code = 15.0 % 33.2-43.5 LL CALL ED TO FANCINA OR HCT) RN & READBACK O N 11/30/19 AT 162 5 BY Malachi Santamaria [id number] 16:36:00 Test Item Value Reference Range Interpretation Comments POTASSIUM (test code = K) MMOL/L 3.5-5.1 [id number] 16:36:00 Test Item Value Reference Range Interpretation Comments GLUCOSE (test code = GLU) 138 MG/DL 74-106 H [id number] 16:36:00 Test Item Value Reference Range Interpretation Comments POTASSIUM (test code = K) 5.0 MMOL/L 3.5-5.1 N [id number] 16:36:00 Test Item Value Reference Range Interpretation Comments GLUCOSE (test code = GLU) 138 MG/DL 74-106 H DIFFERENTIAL [id number] 16:28:00 Test Item Value Reference Range Interpretation Comments RBC MORPHOLOGY REQUIRED (test code = RBCM) PLATELET ESTIMATE (test code = PLTEST) ADEQUATE PLATELET MORPHOLOGY (test code = NORMAL PLTMORPH) [id number] 16:28:00 Test Item Value Reference Range Interpretation Comments HEMOGLOBIN (test code = 4.5 G/DL 11.2-14.9 LL CALL ED TO FANCINA B HGB) GROUP SEGMENT CONSULTANT & READBASelin K ON 11/30/19 AT 162 5 BY Malachi Santamaria [id number] 16:28:00 Test Item Value Reference Range Interpretation Comments HEMATOCRIT (test code = 15.0 % 33.2-43.5 LL CALL ED TO FANCINA OR HCT) RN & READBACK O N 11/30/19 AT 162 5 BY Malachi Santamaria DIFFERENTIAL [id number] 16:28:00 Test Item Value Reference Range Interpretation Comments RBC MORPHOLOGY REQUIRED (test code = RBCM) PLATELET ESTIMATE (test code = PLTEST) ADEQUATE PLATELET MORPHOLOGY (test code = NORMAL PLTMORPH) [id number] 16:28:00 Test Item Value Reference Range Interpretation Comments HEMOGLOBIN (test code = 4.5 G/DL 11.2-14.9 LL CALL ED TO FANCINA B HGB) GROUP SEGMENT CONSULTANT & READBAC K ON 11/30/19 AT 162 5 BY Malachi Santamaria [id number] 16:28:00 Test Item Value Reference Range Interpretation Comments HEMATOCRIT (test code = 15.0 % 33.2-43.5 LL CALL ED TO FANCINA OR HCT) RN & READBACK O N 11/30/19 AT 162 5 BY Malachi Santamaria BASIC METABOLIC [id number] 13:26:00 Test Item Value Reference Range Interpretation [...] CA) PLEASE CALL RESULTS TO PHONE #: [phone] [employer] METABOLIC [id number] 13:25:00 Test Item Value Reference Range Interpretation [...] CA) PLEASE CALL RESULTS TO PHONE #: [phone] [facility] METABOLIC [id number] 13:22:00 Test Item Value Reference Range Interpretation [...] 8.7-9.7 PLEASE CALL RESULTS TO PHONE #: [phone] [facility] METABOLIC [id number] 13:22:00 Test Item Value Reference Range Interpretation [...] 8.7-9.7 PLEASE CALL RESULTS TO PHONE #: [phone] [facility] W/AUTO [id number] 13:13:00 Test Item Value Reference Range Interpretation [...] NRBC#) PLEASE CALL RESULTS TO PHONE #: [phone] [employer] 12 AB [id number] 18:12:00 Test Item Value Reference Range Interpretation Comments HIV 1 2 COMBO AG/AB SCREEN AB/AG NON REACTIVE NONREACTIVE (test code = [id number]) PROTHROMBIN [id number] 17:56:00 Test Item Value Reference Range Interpretation [...] syste eric embolism. 3.0 - 4.5 PTT [id number] 17:56:00 Test Item Value Reference Range Interpretation Comments PTT ACTIVATED (test code = APTT) 35.0 SECONDS 25.1-36.5 N PLT RESPONSE TO [id number] 17:56:00 Test Item Value Reference Range Interpretation [...] had fewer a dverse events. COMPREHENSIVE METABOLIC [id number] 17:40:00 Test Item Value Reference Range Interpretation [...] in the last 72 hours- XR CHEST [id number] 17:32:00[facility] : 1940 Sex: F Patient Name: JORGE A HORTA Unit No: [id number] EXAMS: CPT CODE: [id number] XR CHEST 1V 69160 EXAM: - XR CHEST 1V LOCATION: C3 [...] t.SDR.HV2 Orig Print D/T: S: 11/29/2019 (1735) [facility] NAME: JORGE A HORTA [id number] PHYS: [place] [address] : 1940 AGE: 79 SEX: F LOC: Z.355 A PHONE #: [phone] EXAM DATE: 11/29/2019 STATUS: ADM IN FAX #: [phone] RADIOLOGY NO: PAGE 1 Signed ReportCOMPREHENSIVE METABOLIC [id number] 17:29:00 Test Item Value Reference Range Interpretation [...] done in the last 72 hoursCOMPREHENSIVE METABOLIC [id number] 17:28:00 Test Item Value Reference Range Interpretation [...] done in the last 72 hoursGLYCOSYLATED HEMOGLOBIN [id number] 17:27:00 Test Item Value Reference Range Interpretation [...] H (test code = MBG) COMPREHENSIVE METABOLIC [id number] 17:26:00 Test Item Value Reference Range Interpretation [...] done in the last 72 hoursCOMPREHENSIVE METABOLIC [id number] 17:25:00 Test Item Value Reference Range Interpretation [...] syste eric embolism. 3.0 - 4.5 PTT [id number] 17:24:00 Test Item Value Reference Range Interpretation Comments PTT ACTIVATED (test code = APTT) 35.0 SECONDS 25.1-36.5 N PLT RESPONSE TO [id number] 17:24:00 Test Item Value Reference Range Interpretation Comments PLT RESPONSE TO PLAVIX (test code = PRU 194-418 PLAVRES) CBC W/AUTO [id number] 17:14:00 Test Item Value Reference Range Interpretation [...] 112 MG/DL 60-99 H = GLUBED) T4 [id number] 17:37:00 Test Item Value Reference Range Interpretation Comments T4 FREE (test code = T4F) 1.3 NG/DL 0.78-2.19 N - CT ANGIO NECK W WO [id number] 17:37:00 [facility] : 1940 Sex: F Patient Name: JORGE A HORTA Unit No: [id number] EXAMS: CPT CODE: [id number] CT ANGIO NECK W [place] CONT [address] Examination: CTA head and neck with contrast. [...] referable to the left posterior cerebral artery [facility] NAME: JORGE A HORTA [id number] PHYS: [id number] Ranjana De Los Santos MD [address] [place] [address] : 1940 AGE: 79 SEX: F LOC: Z.355 A PHONE #: [phone] EXAM DATE: 11/27/2019 STATUS: ADM IN FAX #: [phone] RAD #: D/C DT PAGE 1 Signed Report (CONTINUED) Patient Name: JORGE A HORTA Unit No: [id number] EXAMS: CPT CODE: [id number] CT [place] CONT [address] <Continued> circulation conventional angiography is recommended for further evaluation. 4. Otherwise unremarkable CTA examination of brain. at 1737 Reported and signed by: Anthony Boyer MD CC: Ramu Sutherland MD; Rashid Son MD; Ranjana Mcclelland MD Technologist: Ana Maria Tovar RT (R) (CT) CTDI: DLP: Trnscrpt: 11/27/2019 (1737) tSHERRIR.VR5 [facility] NAME: JORGE A HORTA PHYS: [place] [address] : 1940 AGE: 79 SEX: F LOC: Z.355 A PHONE #: [phone] EXAM DATE: 11/27/2019 STATUS: ADM IN FAX #: [phone] RAD #: D/C DT PAGE 2 Signed Report Patient Name: JORGE A HORTA Unit No: [id number] EXAMS: CPT CODE: [id number] CT [place] CONT [address] <Continued> Orig Print D/T: S: 11/27/2019 (1740) [facility] NAME: JORGE A HORTA PHYS: Ranjana Scott MD [place] [id number] : 1940 AGE: 79 SEX: F LOC: Z.355 A PHONE #: [phone] EXAM DATE: 11/27/2019 STATUS: ADM IN FAX #: [phone] RAD #: D/C DT PAGE 3 Signed Report- CT ANGIO [id number] 17:37:00 [facility] : 1940 Sex: F Patient Name: JORGE A HORTA Unit No: [id number] EXAMS: CPT CODE: [id number] CT ANGIO HEAD [address] Examination: CTA head and neck with contrast. [...] referable to the left posterior cerebral artery [facility] NAME: JORGE A HORTA [id number] PHYS: ZHURanjana Sequeira MD [address] [place] [address] : 1940 AGE: 79 SEX: F LOC: Z.355 A PHONE #: [phone] EXAM DATE: 11/27/2019 STATUS: ADM IN FAX #: [phone] RAD #: D/C DT PAGE 1 Signed Report (CONTINUED) Patient Name: JORGE A HORTA Unit No: [id number] EXAMS: CPT CODE: [id number] CT ANGIO HEAD [address] <Continued> circulation conventional angiography is recommended for further evaluation. 4. Otherwise unremarkable CTA examination of brain. at 1737 Reported and signed by: Anthony Boyer MD CC: Ramu Sutherland MD; Rashid Son MD; Ranjana Mcclelland MD Technologist: Ana Maria Tovar RT (R) (CT) CTDI: DLP: Trnscrpt: 11/27/2019 (1737) t.SDR.VR5 [facility] NAME: JORGE A HORTA [id number] PHYS: [id number] Ranjana De Los Santos MD [address] [place] [address] : 1940 AGE: 79 SEX: F LOC: Z.355 A PHONE #: [phone] EXAM DATE: 11/27/2019 STATUS: ADM IN FAX #: [phone] RAD #: D/C DT PAGE 2 Signed Report Patient Name: JORGE A HORTA Unit No: [id number] EXAMS: CPT CODE: [id number] CT ANGIO HEAD [address] <Continued> Orig Print D/T: S: 11/27/2019 (1740) [facility] NAME: JORGE A HORTA [id number] PHYS: [id number] Ranjana De Los Santos MD [address] [place] [address] : 1940 AGE: 79 SEX: F LOC: Z.355 A PHONE #: [phone] EXAM DATE: 11/27/2019 STATUS: ADM IN FAX #: [phone] RAD #: D/C DT PAGE 3 Signed ReportTSH REFLEX TO [id number] 17:02:00 Test Item Value Reference Range Interpretation Comments TSH REFLEX TO FT4 0.183 MIU/L 0.65-4.68 L Please be aware that (test code = bias results fo r TSH TSHREFLEX) may occur forpa tient who are taking Biotin supplements. C REACTIVE [id number] 16:34:00 Test Item Value Reference Range Interpretation Comments C REACTIVE PROTEIN (test code = 1.00 MG/DL 0.00-9.99 N CRP) - MRI BRAIN W/O [id number] 16:27:00 [facility] : 1940 Sex: F Patient Name: JORGE A HORTA Unit No: [id number] EXAMS: CPT CODE: [id number] MRI BRAIN W/O CONTRAST 56915 B2 - MRI BRAIN W/O CONTRAST HISTORY: [...] Sutherland MD; Rashid Son MD Technologist: Debby eCja(CT)(MRI) Transcrpt Date/Tm/Trnsp: 11/27/2019 (162) Dorys.VB7 Orig Print D/T: S: 11/27/2019 (1630) [facility] NAME: JORGE A HORTA [id number] PHYS: [place] [address] : 1940 AGE: 79 SEX: F LOC: Z.355 A PHONE #: [phone] EXAM DATE: 11/27/2019 STATUS: ADM IN FAX #: [phone] RADIOLOGY NO: PAGE 1 Signed ReportGLUCOSE BEDSIDE [id number] 16:17:00 Test Item Value Reference Range Interpretation Comments GLUCOSE BEDSIDE TESTING (test code 118 MG/DL 60-99 H = GLUBED) BASIC METABOLIC [id number] 06:33:00 Test Item Value Reference Range Interpretation [...] 0-189 mg/dL VERY HIGH...... ...>/= 190 mg/dL [id number] 06:33:00 Test Item Value Reference Range Interpretation Comments MAGNESIUM (test code = MAG) 2.0 MG/DL 1.6-2.3 N BASIC METABOLIC [id number] 06:22:00 Test Item Value Reference Range Interpretation [...] LDL (test MG/DL 0-99 code = LDL) [id number] 06:22:00 Test Item Value Reference Range Interpretation Comments MAGNESIUM (test code = MAG) 2.0 MG/DL 1.6-2.3 N BASIC METABOLIC [id number] 06:21:00 Test Item Value Reference Range Interpretation [...] LDL (test code = LDL) MG/DL 0-99 [id number] 06:21:00 Test Item Value Reference Range Interpretation Comments MAGNESIUM (test code = MAG) MG/DL 1.6-2.3 BASIC METABOLIC [id number] 06:18:00 Test Item Value Reference Range Interpretation [...] LDL (test code = LDL) MG/DL 0-99 [id number] 06:18:00 Test Item Value Reference Range Interpretation Comments MAGNESIUM (test code = MAG) MG/DL 1.6-2.3 GLYCOSYLATED HEMOGLOBIN [id number] 06:07:00 Test Item Value Reference Range Interpretation [...] 70-110 H (test code = MBG) PROTHROMBIN [id number] 06:03:00 Test Item Value Reference Range Interpretation [...] syste eric embolism. 3.0 - 4.5 PTT [id number] 06:03:00 Test Item Value Reference Range Interpretation Comments PTT ACTIVATED (test code = APTT) 29.9 SECONDS 25.1-36.5 N CBC W/AUTO [id number] 05:52:00 Test Item Value Reference Range Interpretation [...] 0.00 K/mm3 0.0-0.1 N NRBC#) B-TYPE NATRIURETIC [id number] 21:04:00 Test Item Value Reference Range Interpretation Comments B-TYPE NATRIURETIC PEPTIDE (test 205.0 PG/ML 0-100 H code = BNP) COMPREHENSIVE METABOLIC [id number] 21:03:00 Test Item Value Reference Range Interpretation [...] UNITS/L 38-126 N (test code = ALKP) [id number] 21:03:00 Test Item Value Reference Range Interpretation Comments TROPONIN-I (test code = TROPI) 0.043 NG/ML 0.012-0.033 H COMPREHENSIVE METABOLIC [id number] 20:53:00 Test Item Value Reference Range Interpretation [...] UNITS/L 38-126 N (test code = ALKP) [id number] 20:53:00 Test Item Value Reference Range Interpretation Comments TROPONIN-I (test code = TROPI) NG/ML 0.0-0.045 COMPREHENSIVE METABOLIC [id number] 20:52:00 Test Item Value Reference Range Interpretation [...] UNITS/L 38-126 N (test code = ALKP) [id number] 20:52:00 Test Item Value Reference Range Interpretation Comments TROPONIN-I (test code = TROPI) NG/ML 0.0-0.045 COMPREHENSIVE METABOLIC [id number] 20:51:00 Test Item Value Reference Range Interpretation [...] PHOSPHATASE UNITS/L 38-126 (test code = ALKP) [id number] 20:51:00 Test Item Value Reference Range Interpretation Comments TROPONIN-I (test code = TROPI) NG/ML 0.0-0.045 COMPREHENSIVE METABOLIC [id number] 20:49:00 Test Item Value Reference Range Interpretation [...] PHOSPHATASE (test code = UNITS/L 38-126 ALKP) [id number] 20:49:00 Test Item Value Reference Range Interpretation Comments TROPONIN-I (test code = TROPI) NG/ML 0.0-0.045 CBC W/AUTO [id number] 20:40:00 Test Item Value Reference Range Interpretation [...] 0.00 K/mm3 0.0-0.1 N NRBC#) ARTERIAL BLOOD [id number] 10:23:00 Test Item Value Reference Range Interpretation [...] FIO2 (test code = COHBGFFIO2) 21 % PaO2/[id number] 10:23:00 Test Item Value Reference Range Interpretation Comments PaO2/FiO2 (test code = FCH7AWC1) mm/Hg ARTERIAL BLOOD [id number] 10:23:00 Test Item Value Reference Range Interpretation [...] FIO2 (test code = COHBGFFIO2) 21 % PaO2/[id number] 10:23:00 Test Item Value Reference Range Interpretation Comments PaO2/FiO2 (test code = XME4EGF2) 380.00 mm/Hg VENOUS BLOOD [id number] 10:23:00 Test Item Value Reference Range Interpretation [...] (test code LINE = SITEV) BASIC METABOLIC [id number] 08:33:00 Test Item Value Reference Range Interpretation [...] 0-189 mg/dL VERY HIGH...... ...>/= 190 mg/dL [id number] 08:33:00 Test Item Value Reference Range Interpretation Comments MAGNESIUM (test code = MAG) 2.1 MG/DL 1.6-2.3 N BASIC METABOLIC [id number] 07:01:00 Test Item Value Reference Range Interpretation [...] LDL (test MG/DL 0-99 code = LDL) [id number] 07:01:00 Test Item Value Reference Range Interpretation Comments MAGNESIUM (test code = MAG) 2.1 MG/DL 1.6-2.3 N PROTHROMBIN [id number] 06:54:00 Test Item Value Reference Range Interpretation [...] syste eric embolism. 3.0 - 4.5 PTT [id number] 06:54:00 Test Item Value Reference Range Interpretation Comments PTT ACTIVATED (test code = APTT) 30.7 SECONDS 25.1-36.5 N CBC W/AUTO [id number] 06:43:00 Test Item Value Reference Range Interpretation [...] 0.0-0.1 N NRBC#) COVID 19 Asymptomatic IH [id number] 05:46:00 Test Item Value Reference Range Interpretation [...]
[2020-04-22 18:12] LABS: Basophils % 0.5 % (0-1.3); Hematocrit 29.9 % (36.0-45.0); Lymphocytes % 19.7 % (15.3-44.8); MPV 8.1 fL (7.6-11.3); RBC Red Blood Cell Count 3.37 M/uL (3.86-4.86)
[2020-04-22 18:25] LABS: Protime INR 3.91
--- NOTE | 2020-04-22 18:36 | RAD REPORT ---
EXAM DESCRIPTION: CT - Stone Protocol - 04/22/2020 6:04 pm CLINICAL HISTORY: Abdominal pain. COMPARISON: February 2020 TECHNIQUE: Computed axial tomography of the abdomen pelvis was obtained without oral or IV contrast. Lack of IV and oral contrast limits evaluation of solid organs, bowel, and vessels. Coronal reformat mitzi images were obtained and reviewed. All CT scans are performed using dose optimization technique as appropriate and may include automated exposure control or mA/KV adjustment according to patient size. FINDINGS: Tiny nonobstructing bilateral renal calculi. No hydronephrosis. . An ureteral calculus is not noted. A bladder calculus is not present. The liver, spleen, pancreas and adrenals appear grossly normal Right lower quadrant ileostomy. Right hemicolectomy. Wound dehiscence midline upper pelvis 3.2 centimeter low to intermediate density mass within the right inguinal region without significant change. A 4 centimeter diverticulum stems from the third portion duodenum. Cholecystectomy IMPRESSION: Wound dehiscence midline upper pelvis 3.2 centimeter low to intermediate density mass within the right inguinal region is unchanged from th e prior exam. Differential includes hematoma, lymph node and pseudoaneurysm
--- NOTE | 2020-04-22 18:37 | RAD REPORT ---
EXAM DESCRIPTION: Danis Single View04/22/2020 6:24 pm CLINICAL HISTORY: Cough COMPARISON: February 2020 FINDINGS: The lungs appear clear of acute infiltrate. The heart is mildly enlarged. Postsurgical changes involve the chest. IMPRESSION: No acute abnormalities displayed
--- NOTE | 2020-04-22 18:49 | EDPHYS ---
Physician Documentation [facility] Name: Claudette Sherman Age: 79 yrs Sex: Female : 1940 Arrival Date: 04/22/2020 Time: 13:18 Bed 5 Private MD: Zbigniew Sutherland R ED Physician John Bansal HPI: 04/22 17:57 This 79 yrs old Female presents to ER via Wheelchair with complaints of clara Abnormal Lab Results. 17:57 The patient presents with abdominal pain. Onset: The symptoms/episode began/occurred 3 clara day(s) ago. weak, dr whitten sent for dehydration, worsening renal failure. Onset: The symptoms/episode began/occurred 3 day(s) ago. The symptoms do not radiate. Associated signs and symptoms: none. The symptoms are described as achy. Modifying factors: The symptoms are alleviated by nothing, the symptoms are aggravated by nothing. Severity of pain: At its worst the pain was very mild in the emergency department the pain is unchanged. Severity of symptoms: At their worst the symptoms were mild in the emergency department the symptoms are unchanged. Historical: - Allergies: 14:30 Codeine; ca1 14:30 Morphine; ca1 - PMHx: 14:30 High Cholesterol; Hypertension; Hypothyroidism; open wound on middle abdomen; sacrum ca1 wound; - PSHx: 14:30 CABG; Colostomy; ca1 - Immunization history:: Client reports receiving the 1st dose of the Covid vaccine, April 22, 2020 Flu vaccine is up to date. - Social history:: Smoking status: Patient denies any tobacco usage or history of. ROS: 17:59 Constitutional: Negative for fever, chills, and weight loss, Eyes: Negative for injury, clara pain, redness, and discharge, ENT: Negative for injury, pain, and discharge, Neck: Negative for injury, pain, and swelling, Cardiovascular: Negative for chest pain, palpitations, and edema, Respiratory: Negative for shortness of breath, cough, wheezing, and pleuritic chest pain, Abdomen/GI: Negative for abdominal pain, nausea, vomiting, diarrhea, and constipation, Back: Negative for injury and pain, : Negative for injury, bleeding, discharge, and swelling, MS/Extremity: Negative for injury and deformity, Skin: Negative for injury, rash, and discoloration, Psych: Negative for depression, anxiety, suicide ideation, homicidal ideation, and hallucinations, Allergy/Immunology: Negative for hives, rash, and allergies, Endocrine: Negative for neck swelling, polydipsia, polyuria, polyphagia, and marked weight changes, Hematologic/Lymphatic: Negative for swollen nodes, abnormal bleeding, and unusual bruising. 17:59 Neuro: Positive for weakness. Exam: 17:59 Constitutional: This is a well developed, well nourished patient who is awake, alert, clara and in no acute distress. Head/Face: Normocephalic, atraumatic. Eyes: Pupils equal round and reactive to light, extra-ocular motions intact. Lids and lashes normal. Conjunctiva and sclera are non-icteric and not injected. Cornea within normal limits. Periorbital areas with no swelling, redness, or edema. ENT: Nares patent. No nasal discharge, no septal abnormalities noted. Tympanic membranes are normal and external auditory canals are clear. Oropharynx with no redness, swelling, or masses, exudates, or evidence of obstruction, uvula midline. Mucous membranes moist. Neck: Trachea midline, no thyromegaly or masses palpated, and no cervical lymphadenopathy. Supple, full range of motion without nuchal rigidity, or vertebral point tenderness. No Meningismus. Chest/axilla: Normal chest wall appearance and motion. Nontender with no deformity. No lesions are appreciated. Cardiovascular: Regular rate and rhythm with a normal S1 and S2. No gallops, murmurs, or rubs. Normal PMI, no JVD. No pulse deficits. Respiratory: Lungs have equal breath sounds bilaterally, clear to auscultation and percussion. No rales, rhonchi or wheezes noted. No increased work of breathing, no retractions or nasal flaring. Back: No spinal tenderness. No costovertebral tenderness. Full range of motion. Female : Normal external genitalia. MS/ Extremity: Pulses equal, no cyanosis. Neurovascular intact. Full, normal range of motion. Neuro: Awake and alert, GCS 15, oriented to person, place, time, and situation. Cranial nerves II-XII grossly intact. Motor strength 5/5 in all extremities. Sensory grossly intact. Cerebellar exam normal. Normal gait. Psych: Awake, alert, with orientation to person, place and time. Behavior, mood, and affect are within normal limits. 17:59 Abdomen/GI: Inspection: abdomen appears normal, Bowel sounds: normal, Palpation: nontender, Liver: no appreciated palpable abnormalities, Hernia: not appreciated, verticle incision open with packing, colostomy noted stool with moderate liquid. 19:29 ECG was reviewed by the Attending Physician. [facility] Vital Signs: 14:23 BP 140 / 59; Pulse 96; Resp 16 S; Temp 97.3(TE); Pulse Ox 100% on R/A; Weight 52.16 kg ca1 (R); Height 5 ft. 2 in. (157.48 cm) (R); 18:00 BP 138 / 64; Pulse 94; Resp 18; Pulse Ox 99% on R/A; ph 19:21 BP 121 / 34; Pulse 89; Resp 18; Pulse Ox 100% on R/A; ph 21:00 BP 110 / 70; Pulse 90; Resp 17; Pulse Ox 100% ; rr5 21:52 BP 99 / 46; Pulse 99; Resp 16; Pulse Ox 98% ; rr5 23:29 BP 113 / 53; Pulse 100; Resp 16; Pulse Ox 100% ; ea 14:23 Body Mass Index 21.03 (52.16 kg, 157.48 cm) ca1 MDM: 17:16 Patient medically screened. [facility] 18:02 Differential Diagnosis. Differential diagnosis: gastritis, Irritable bowel syndrome, clara non-specific abd pain, Peptic Ulcer Disease, urinary tract infection. Data reviewed: vital signs, nurses notes, lab test result(s), cardiac enzymes, CBC, electrolytes, hepatic panel, EKG, radiologic studies, CT scan, plain films. Data interpreted: supervisor landscape: rate is 96 beats/min, rhythm is regular, Pulse oximetry: on room air is 100 %. Test interpretation: by ED physician or midlevel provider: ECG, plain radiologic studies. Counseling: I had a detailed discussion with the patient and/or guardian regarding: the historical points, exam findings, and any diagnostic results supporting the discharge/admit diagnosis, lab results, radiology results, the need for further work-up and treatment in the hospital. 04/22 17:26 Order name: Basic Metabolic Panel [facility] 04/22 17:26 Order name: CBC with Diff; Complete Time: 18:40 [facility] 04/22 17:26 Order name: LFT's [facility] 04/22 17:26 Order name: Magnesium [facility] 04/22 17:26 Order name: NT PRO-BNP 04/22 17:26 Order name: PT-INR; Complete Time: 18:40 [facility] 04/22 17:26 Order name: Troponin (emerg Dept Use Only); Complete Time: 18:52 [facility] 04/22 17:26 Order name: Lipase; Complete Time: 18:52 [facility] 04/22 17:27 Order name: Basic Metabolic Panel; Complete Time: 18:52 EDAK 04/22 17:27 Order name: Liver (Hepatic) Function; Complete Time: 18:52 EDAK 04/22 17:27 Order name: Magnesium; Complete Time: 18:52 EDAK 04/22 17:27 Order name: NT PRO-BNP; Complete Time: 18:52 EDAK 04/22 18:49 Order name: Uric Acid 04/22 18:50 Order name: Uric Acid; Complete Time: 19:54 EDAK 04/22 17:26 Order name: XRAY Chest (1 view); Complete Time: 18:40 04/22 17:26 Order name: EKG; Complete Time: 17:27 [facility] 04/22 17:26 Order name: Cardiac monitoring; Complete Time: 21:41 [facility] 04/22 17:31 Order name: CT Stone Protocol; Complete Time: 18:40 [facility] 04/22 19:44 Order name: Chem 7: 9pm 04/22 23:44 Order name: SARS-COV-2 RT PCR [facility] 04/22 17:26 Order name: EKG - Nurse/Tech; Complete Time: 21:51 04/22 17:26 Order name: IV Saline Lock; Complete Time: 18:29 [facility] 04/22 17:26 Order name: Labs collected and sent; Complete Time: 18:29 [facility] 04/22 17:26 Order name: O2 Per Protocol; Complete Time: 18:29 [facility] 04/22 17:26 Order name: O2 Sat Monitoring; Complete Time: 18:29 [facility] EC:29 Rate is 92 beats/min. Rhythm is regular. QRS [place] is Normal. SC interval is normal. QRS clara interval is normal. QT interval is normal. No Q waves. T waves are Peaked. No ST changes noted. Clinical impression: Suggests hyperkalemia and No evidence of ischemia. Interpreted by me. Reviewed by me. Administered Medications: 19:23 Drug: NS 0.9% 500 ml Route: IV; Rate: bolus; Site: right antecubital; ph 21:22 Follow up: Response: No adverse reaction; IV Status: Completed infusion; IV Intake: ea 500ml 20:10 Drug: Albuterol 5 mg Route: Inhalation; ea 20:10 Drug: AtroVENT Aerosol 0.5 mg Route: Inhalation; ea 20:10 Drug: Kayexalate 15 grams Route: PO; ea 22:44 Follow up: Response: No adverse reaction ea 20:10 Drug: D50W 25 ml Route: IVP; Site: right antecubital; ea 22:44 Follow up: Response: No adverse reaction ea 20:15 Drug: Insulin Regular Human 5 units {Co-Signature: carlos a (Dayami Thomson RN).} Route: IVP; rr5 Site: right antecubital; 22:43 Follow up: Response: No adverse reaction ea 20:16 Drug: NS 0.9% 500 ml Route: IV; Rate: bolus; Site: right antecubital; ea 21:05 Follow up: Response: No adverse reaction; IV Status: Completed infusion; IV Intake: rr5 500ml 20:16 Drug: Magnesium Sulfate 2 grams Route: IVPB; Infused Over: 2 hrs; Site: right ea antecubital; 21:22 Follow up: Response: No adverse reaction; IV Status: Completed infusion ea 21:39 Drug: NS 0.9% 1000 ml Route: IV; Rate: 75 ml/hr; Site: right antecubital; rr5 Disposition: 04/22/20 18:48 Hospitalization ordered by Dayo Will for Inpatient Admission. Preliminary diagnosis are Dehydration, Acute kidney failure - on chronic, Anemia, unspecified, Weakness, Hyperkalemia. - Bed requested for Telemetry/MedSurg (Inpatient). - Status is Inpatient Admission. sg - Condition is Fair. - Problem is new. - Symptoms have improved. Signatures: Dispatcher [employer] EDAK Trinh Hope RN RN mw Gay, Steven, RN RN sg Anderson, Corey, MD MD cha Attema, Lee, CLOTH PACKER-C CLOTH PACKER-Cla1 Sydnie Bryant RN RN ph Antunez, Elena, RN RN ea Roque, Raymond, RN RN rr5 Acob, Vannesa, DANILO Thomson RN, ea Corrections: (The following items were deleted from the chart) 19:38 18:48 Hospitalization Or[facility] by [facility] for Inpatient Admission. Preliminary clara diagnosis is Dehydration; Acute kidney failure - on chronic; Anemia, unspecified; Weakness. Bed requested for Telemetry/MedSurg (Inpatient). Status is Inpatient Admission. Condition is Fair. Problem is new. Symptoms have improved. [facility] 22:34 19:38 04/22/2020 18:48 [facility]. Preliminary diagnosis is Dehydration; Acute kidney failure - on chronic; Anemia, unspecified; Weakness; Hyperkalemia. Bed requested for Telemetry/MedSurg (Inpatient). Status is Inpatient Admission. Condition is Fair. Problem is new. Symptoms have improved. [facility] 22:37 22:34 04/22/2020 18:48 Hospitalization Or[facility] for Inpatient mw Admission. Preliminary diagnosis is Dehydration; Acute kidney failure - on chronic; Anemia, unspecified; Weakness; Hyperkalemia. Bed requested for Telemetry/MedSurg (Inpatient). Status is Inpatient Admission. Condition is Fair. Problem is new. Symptoms have improved. 23:04 22:37 04/22/2020 18:48 Hospital[facility] sg Admission. Preliminary diagnosis is Dehydration; Acute kidney failure - on chronic; Anemia, unspecified; Weakness; Hyperkalemia. Bed requested for Telemetry/MedSurg (Inpatient). Status is Inpatient Admission. Condition is Fair. Problem is new. Symptoms have improved. 23:40 19:28 CORONAVIRUS+MR.LAB.BRZ ordered. [facility] EDMS 04/23 00:23 04/22 23:04 04/22/2020 18:48 Hospitalization Ordered by [facility] for Inpatient sg Admission. Preliminary diagnosis is Dehydration; Acute kidney failure - on chronic; Anemia, unspecified; Weakness; Hyperkalemia. Bed requested for Telemetry/MedSurg (Inpatient). Status is Inpatient Admission. Condition is Fair. Problem is new. Symptoms have improved. sg
--- NOTE | 2020-04-22 18:49 | ER ---
Nurse's Notes [facility] Name: Claudette Sherman Age: 79 yrs Sex: Female : 1940 Arrival Date: 04/22/2020 Time: 13:18 Bed 5 Private MD: Zbigniew Sutherland R Diagnosis: Dehydration;Acute kidney failure-on chronic;Anemia, unspecified;Weakness;Hyperkalemia Presentation: 04/22 14:23 Chief complaint: Spouse and/or significant other states: Appointment with a kidney ca1 doctor and was sent here to the ER. Daughter over the phone states: "Blood works done Wednesday last week, they said her kidney function 22%. She has a colostomy bag and has been having LBM, she was on Imodium and Lomotil for it, but not anymore. She starting to have Lose BM at this time". Coronavirus screen: Client denies travel out of the [place] in the last 14 days. diarrhea, Client presents with at least one sign or symptom that may indicate coronavirus-19. Standard/surgical mask placed on the client. Provider contacted for isolation considerations. Ebola Screen: Patient negative for fever greater than or equal to 101.5 degrees Fahrenheit, and additional compatible Ebola Virus Disease symptoms Patient denies exposure to infectious person. Patient denies travel to an Ebola-affected area in the 21 days before illness onset. No symptoms or risks identified at this time. Initial Sepsis Screen: Does the patient meet any 2 criteria? No. Patient's initial sepsis screen is negative. Does the patient have a suspected source of infection? No. Patient's initial sepsis screen is negative. Risk Assessment: Do you want to hurt yourself or someone else? Patient reports no desire to harm self or others. Onset of symptoms was April 22, 2020. 14:23 Method Of Arrival: Wheelchair ca1 14:23 Acuity: LIZ 3 ca1 Historical: - Allergies: 14:30 Codeine; ca1 14:30 Morphine; ca1 - PMHx: 14:30 High Cholesterol; Hypertension; Hypothyroidism; open wound on middle abdomen; sacrum ca1 wound; - PSHx: 14:30 CABG; Colostomy; ca1 - Immunization history:: Client reports receiving the 1st dose of the Covid vaccine, April 22, 2020 Flu vaccine is up to date. - Social history:: Smoking status: Patient denies any tobacco usage or history of. Screenin:31 Abuse screen: Denies threats or abuse. Denies injuries from another. Nutritional ph screening: No deficits noted. Tuberculosis screening: No symptoms or risk factors identified. Fall Risk None identified. Assessment: 15:57 Reassessment: Emptied colostomy bag, watery stool noted. ca1 17:30 General: Appears in no apparent distress. comfortable, slender, well groomed, Behavior ph is calm, cooperative, appropriate for age, Denies fever. Pain: Complains of pain in lumbar area. Neuro: Level of Consciousness is awake, alert, obeys commands, Oriented to person, place, time, situation. Cardiovascular: Capillary refill < 3 seconds in bilateral fingers Patient's skin is warm and dry. Respiratory: Airway is patent Respiratory effort is even, unlabored, Respiratory pattern is regular, symmetrical. GI: Abdomen is flat, non-distended, Colostomy site Ostomy appliance is intact. wound noted near umbilical area. Derm: Skin is fragile, is thin, Skin is pink, warm \\T\\ dry. Bruising that is dark purple, on right arm and left arm. Musculoskeletal: Circulation, motion, and sensation intact. Range of motion: intact in all extremities. 18:30 Reassessment: Patient appears in no apparent distress at this time. Patient and/or ph family updated on plan of care and expected duration. Pain level reassessed. Patient is alert, oriented x 3, equal unlabored respirations, skin warm/dry/pink. 19:22 Reassessment: Patient appears in no apparent distress at this time. Patient and/or ph family updated on plan of care and expected duration. Pain level reassessed. Patient is alert, oriented x 3, equal unlabored respirations, skin warm/dry/pink. 20:00 General: Appears in no apparent distress. comfortable, Behavior is calm, cooperative, rr5 appropriate for age. Pain: Denies pain. Neuro: Level of Consciousness is awake, alert, obeys commands, Oriented to person, place, time. Cardiovascular: Capillary refill < 3 seconds Patient's skin is warm and dry. Respiratory: Airway is patent Respiratory effort is even, unlabored, Respiratory pattern is regular, symmetrical. GI: Colostomy site is clean and dry. Ostomy appliance is intact. : No signs and/or symptoms were reported regarding the genitourinary system. EENT: No signs and/or symptoms were reported regarding the EENT system. Derm: Skin temperature is warm. Musculoskeletal: Circulation, motion, and sensation intact. Capillary refill < 3 seconds. 21:51 Reassessment: Patient appears in no apparent distress at this time. Patient is alert, rr5 oriented x 3, equal unlabored respirations, skin warm/dry/pink. awaiting for repeat potassium level. 23:00 Reassessment: refused to be transfer in 4 th floor, charge nurse and supervisor stage carpentry aware. rr5 23:30 Reassessment: Patient and/or family updated on plan of care and expected duration. Pain ea level reassessed. Patient is alert, oriented x 3, equal unlabored respirations, skin warm/dry/pink. Report given to receiving nurse. Pt admitted to second floor. Vital Signs: 14:23 BP 140 / 59; Pulse 96; Resp 16 S; Temp 97.3(TE); Pulse Ox 100% on R/A; Weight 52.16 kg ca1 (R); Height 5 ft. 2 in. (157.48 cm) (R); 18:00 BP 138 / 64; Pulse 94; Resp 18; Pulse Ox 99% on R/A; ph 19:21 BP 121 / 34; Pulse 89; Resp 18; Pulse Ox 100% on R/A; ph 21:00 BP 110 / 70; Pulse 90; Resp 17; Pulse Ox 100% ; rr5 21:52 BP 99 / 46; Pulse 99; Resp 16; Pulse Ox 98% ; rr5 23:29 BP 113 / 53; Pulse 100; Resp 16; Pulse Ox 100% ; ea 14:23 Body Mass Index 21.03 (52.16 kg, 157.48 cm) ca1 ED Course: 13:18 Patient arrived in ED. am2 13:19 Zbigniew Sutherland MD is Private Physician. am2 14:30 Triage completed. ca1 14:30 Arm band placed on right wrist. ca1 17:16 John Bansal MD is Attending Physician. clara 17:23 Sydnie Bryant RN is Primary Nurse. ph 18:00 Initial lab(s) drawn, by me, sent to lab. Inserted saline lock: 22 gauge in right ph antecubital area, using aseptic technique. Blood collected. 18:03 CT Stone Protocol In Process Unspecified. EDMS 18:24 XRAY Chest (1 view) In Process Unspecified. EDMS 18:31 Patient has correct armband on for positive identification. Bed in low position. Call ph light in reach. Side rails up X 1. school bus monitor on. Pulse ox on. NIBP on. Door closed. Noise minimized. Warm blanket given. 18:41 Dayo Will DO is Hospitalizing Provider. clara 19:21 No provider procedures requiring assistance completed. Patient transferred, IV remains ph in place. 20:36 Primary Nurse role handed off by Sydnie Bryant, DANILO sg 21:32 Navin Wallace, DANILO is Primary Nurse. rr5 23:36 Wound care: to deep wound on the umbilical area located on umbilical area was cleaned rr5 with Hibiclens, Patient tolerated well. Administered Medications: 19:23 Drug: NS 0.9% 500 ml Route: IV; Rate: bolus; Site: right antecubital; ph 21:22 Follow up: Response: No adverse reaction; IV Status: Completed infusion; IV Intake: ea 500ml 20:10 Drug: Albuterol 5 mg Route: Inhalation; ea 20:10 Drug: AtroVENT Aerosol 0.5 mg Route: Inhalation; ea 20:10 Drug: Kayexalate 15 grams Route: PO; ea 22:44 Follow up: Response: No adverse reaction ea 20:10 Drug: D50W 25 ml Route: IVP; Site: right antecubital; ea 22:44 Follow up: Response: No adverse reaction ea 20:15 Drug: Insulin Regular Human 5 units {Co-Signature: carlos a (Dayami Thomson RN).} Route: IVP; rr5 Site: right antecubital; 22:43 Follow up: Response: No adverse reaction ea 20:16 Drug: NS 0.9% 500 ml Route: IV; Rate: bolus; Site: right antecubital; ea 21:05 Follow up: Response: No adverse reaction; IV Status: Completed infusion; IV Intake: rr5 500ml 20:16 Drug: Magnesium Sulfate 2 grams Route: IVPB; Infused Over: 2 hrs; Site: right ea antecubital; 21:22 Follow up: Response: No adverse reaction; IV Status: Completed infusion ea 21:39 Drug: NS 0.9% 1000 ml Route: IV; Rate: 75 ml/hr; Site: right antecubital; rr5 Intake: 21:05 IV: 500ml; Total: 500ml. rr5 21:22 IV: 500ml; Total: 1000ml. ea Outcome: 18:48 Decision to Hospitalize by Provider. clara 23:28 Admitted to Med/surg accompanied by tech, via stretcher, room 228, with chart, Report ea called to Receiving nurse on second floor 23:28 Condition: stable 23:28 Instructed on the need for admit, Demonstrated understanding of instructions. 04/23 00:23 Patient left the ED. sg Signatures: Dispatcher [employer] EDMS Victor M Lopez, RN RN sg John Bansal MD MD cha Hall, Patricia, RN RN Ana Maria Valverde Elena RN Navin Bustillo ea RN RN rr5 Vannesa Rocha RN RN ca1 Elena Antunez RN ea Corrections: (The following items were deleted from the chart) 04/22 19:22 17:30 GI: Abdomen is flat, non-distended, Colostomy site Ostomy appliance is intact. ph ph 19:23 19:21 Pulse 89bpm; Resp 18bpm; Pulse Ox 100% RA; ph ph
[2020-04-22 18:50] LABS: ALT/SGPT 267 U/L (12-78); AST/SGOT 201 U/L (15-37); Albumin 3.7 g/dL (3.4-5.0); Alkaline Phosphatase 253 U/L (45-117); BUN Blood Urea Nitrogen 47 mg/dL (7-18); Bicarbonate 20 mmol/L (21-32); Bilirubin Direct 0.2 mg/dL (0-0.2); Bilirubin Total 0.5 mg/dL (0.2-1.0); Glucose Level 104 mg/dL (74-106); Lipase 630 U/L (73-393); Magnesium 1.3 mg/dL (1.8-2.4); NT PRO-BNP 2138 pg/mL (<450); Potassium 5.5 mmol/L (3.5-5.1); Protein, Total 8.7 g/dL (6.4-8.2); Sodium Level 132 mmol/L (136-145); Troponin (Emerg Dept Use Only) < 0.02 ng/mL (0.0-0.045)
[2020-04-22] MEDS ORDERED: NA CHLORIDE 0.9% 1,000 ML ONE ×2 (18:54→20:08)
[2020-04-22] MEDS ORDERED: IPRATROPIUM BROM 0.5MG/2.5ML ONE (20:06)
[2020-04-22] MEDS ORDERED: ALBUTEROL 2.5 MG/3 ML NEB SOL ONE (20:07)
[2020-04-22] MEDS ORDERED: SOD POLYSTYREN SUL 15 GM/60 ML UCUP ONE (20:07)
[2020-04-22] MEDS ORDERED: INSULIN -REGULAR HUMAN 50 UNIT/0.5 ML ML ONE (20:07)
[2020-04-22] MEDS ORDERED: D50W 50 ML IV ONE (20:08)
[2020-04-22] MEDS ORDERED: Magnesium Sulfate 2gm IVPB 2 G/50 ML BAG IV ONE (20:20)
--- NOTE | 2020-04-22 20:45 | P.HP ---
Certification for Inpatient Patient admitted to: Inpatient With expected LOS: >2 Midnights Patient will require the following post-hospital care: None Practitioner: I am a practitioner with admitting privileges, knowledge of patient current condition, hospital course, and medical plan of care. Services: Services provided to patient in accordance with Admission requirements found in Title 42 Section 412.3 of the Code of Federal Regulations Patient History Date of Service: 04/22/20 Primary Care Provider: Dr. Albert, Dr. Cabrera Reason for admission: Diarrhea, acute renal failure History of Present Illness: 79-year-old female with history of hypertension, aortic valve replacement on Chronic anticoagulation with Coumadin, CABG, ileostomy S/P bowel obstruction, recent admission for acute renal failure related to diarrhea/watery stools presents emergency department for worsening renal function on outpatient lab. Daughter at bedside reports that patient has continued to have watery stools despite taking Imodium. Patient was recently taken off of Lomotil due to its effects on her appetite but has persisted having watery stools since she was discharged workup in the emergency department significant for elevated creatinine 2.5 to, at discharge on 04/06/2020, creatinine was 1.3 GFR 18 CO2 20 sodium 132 potassium 5.5, magnesium 1.3 AST 201 ALT 267, alk-phos 253 BNP slightly elevated 2138 lipase 630 patient without any epigastric pain. CT abdomen demonstrates a wound dehiscence in the midline upper pelvis and a 3.2 cm low to intermediate density mass within the right inguinal region which is unchanged from previous exams. Liver or spleen and pancreas appear grossly normal. Previous cholecystectomy. Patient's INR also 3.91 mildly supratherapeutic. ED provider wishes to admit patient for acute renal failure. When I saw the patient in the ER she is awake, alert, oriented x3, daughter at bedside. Discussed elevated LFTs as well, patient had recent followup with gastroenterology who stated he was not concerned about these elevations in LFTs at this time, patient with previous cholecystectomy patient without any upper abdominal pain or tenderness. Patient does not appear septic at this time, will admit for further evaluation and management. Allergies codeine Allergy (Verified 04/05/20 03:55) Rash morphine Allergy (Verified 04/05/20 03:55) Rash Home Medications: Metoprolol Tartrate [Lopressor*] 25 mg PO BID 02/23/20 Mirtazapine [Remeron*] 15 mg PO BEDTIME 02/23/20 Warfarin Sodium [Coumadin*] 2.5 mg PO DAILY AT SUPPER 02/23/20 Atorvastatin Calcium 1 tab PO DAILY 04/05/20 Diphenox/Atropine [Lomotil*] 2 tab PO BID 04/05/20 Diphenoxylate HCl/Atropine [Diphenoxylate-Atrop 2.5-0.025] 2 tab PO DAILY 04/05/20 Ferrous Sulfate [Iron] 325 mg PO DAILY 04/05/20 Levothyroxine [Synthroid*] 1 tab PO DAILY 04/05/20 Loperamide [Imodium*] 2 tab PO QID 04/05/20 Megestrol Acetate 1 tab PO QID 04/05/20 Sucralfate [Carafate*] 1 gm PO QID 04/05/20 Sodium Bicarbonate 650 mg PO BID #14 tablet 04/06/20 - Past Medical/Surgical History Diabetic: No -: Diabetes mellitus type 2 -: Hypertension -: hyperlipidemia -: Small-bowel obstruction -: knee sx -: Cholecystectomy -: hysterectomy -: Ileostomy Psychosocial/ Personal History: Patient currently lives at home with her family, has home health - Family History Father Notes: no medical condition,still living Mother Notes: no medical condition,still living - Social History Smoking Status: Never smoker Alcohol use: No CD- Drugs: No Caffeine use: No Place of Residence: Home Review of Systems 10-point ROS is otherwise unremarkable Gastrointestinal: Diarrhea (Watery stools from ileostomy) Physical Examination - Physical Exam General: Alert, In no apparent distress HEENT: Atraumatic, PERRLA, Other (Mucous membranes dry) Neck: Supple, 2+ carotid pulse no bruit Respiratory: Clear to auscultation bilaterally, Normal air movement Cardiovascular: Regular rate/rhythm, Normal S1 S2 Capillary refill: <2 Seconds Gastrointestinal: Normal bowel sounds, No tenderness Musculoskeletal: No tenderness Integumentary: No rashes Neurological: Normal speech, Normal strength at 5/5 x4 extr, Normal tone, Normal affect - Studies Laboratory Data (last 24 hrs) 04/22/20 18:00: Uric Acid 12.0 H 04/22/20 18:00: PT 45.6 H, INR 3.91 04/22/20 18:00: WBC 9.90, Hgb 9.8 L, Hct 29.9 L, Plt Count 416 H 04/22/20 18:00: Sodium 132 L, Potassium 5.5 H, BUN 47 H, Creatinine 2.52 H, Glucose 104, Magnesium 1.3 L* D, Total Bilirubin 0.5, AST 201 H, ALT 267 H, Alkaline Phosphatase 253 H, Lipase 630 H Assessment and Plan - Plan Assessment Acute renal failure with metabolic acidemia likely secondary to chronic diarrhea S/P ileostomy secondary to bowel obstruction Hyperkalemia Hypomagnesemia History of mechanical aortic valve on chronic anticoagulation with Coumadin with supratherapeutic INR Abdominal wall abscess S/P incision and drainage Plan Acute renal failure with metabolic acidemia likely secondary to chronic diarrhea S/P ileostomy secondary to bowel obstruction: Continue with IV fluids overnight, nephrology consult in place. Will restart patient's Imodium and obtained Lomotil dose, Lomotil was discontinued due to its effect on patient's appetite but since its discontinuation patient continued to have watery stools leading to another episode of acute renal failure, patient will likely need to continue Lomotil. DVT prophylaxis with SCDs, supratherapeutic INR at this time. Hyperkalemia: Patient given hyperkalemia cocktail in the ED, repeat chemistry pending. Nephrology consult in place. Continue IV fluids. Hypomagnesemia: Magnesium protocol in place. Will need to gain control of watery loose stools. History of mechanical aortic valve on chronic anticoagulation with Coumadin with supratherapeutic INR: Hold Coumadin at this time, INR 3.91. Abdominal wall abscess S/P incision and drainage: General surgery consulted for evaluation and management. Discharge Plan: Home Plan to discharge in: 72 Hours - Advance Directives Does patient have a Living Will: Yes Does patient have a Durable POA for Healthcare: No - Code Status/Comfort Care Code Status Assessed: Yes (Full code) Critical Care: No Time Spent Managing Pts Care (In Minutes): 55
[2020-04-22 21:36] LABS: Potassium 4.7 mmol/L (3.5-5.1)
[2020-04-23] MEDS ORDERED: ONDANSETRON 4 MG/2 ML VIAL IV PRN (00:19)
[2020-04-23] MEDS ORDERED: ACETAMINOPHEN 500 MG TAB PO PRN (00:19)
[2020-04-23] MEDS: NA CHLORIDE 0.9% 1,000 ML IV SCH ×3 (00:29→15:56)
[2020-04-23 00:37] VITALS: BMI 22.3
[2020-04-23 06:16] LABS: Absolute Lymphocytes (CBC) 1.6 K/uL (0.7-4.9); Basophils % 0.8 % (0-1.3); Hematocrit 24.3 % (36.0-45.0); Lymphocytes % 22.1 % (15.3-44.8); MPV 8.2 fL (7.6-11.3)
[2020-04-23 06:18] LABS: Protime INR 3.5
[2020-04-23 06:40] LABS: Albumin 2.8 g/dL (3.4-5.0); Bilirubin Total 0.4 mg/dL (0.2-1.0); Magnesium 1.9 mg/dL (1.8-2.4); Phosphorus 3.7 mg/dL (2.5-4.9); Potassium 4.5 mmol/L (3.5-5.1); Protein, Total 6.5 g/dL (6.4-8.2); Thyroid Stimulating Hormone 2.07 uIU/mL (0.360-3.740)
[2020-04-23 07:05] LABS: Urine Appearance CLOUDY; Urine Bilirubin NEGATIVE (NEG); Urine Blood NEGATIVE (NEG); Urine Color YELLOW; Urine Glucose NEGATIVE (NEG); Urine Protein NEGATIVE (NEG); Urine Urobilinogen 0.2 mg/dL (0.2-1.0)
[2020-04-23] MEDS: LOPERAMIDE HCL 2 MG CAPSULE PO SCH ×4 (07:48→20:20)
[2020-04-23 07:55] LABS: Urine Microscopic Reflex ORDER UMIC
[2020-04-23 08:02] LABS: Urine Bacteria <20 /HPF (<20); Urine RBC NONE SEEN /HPF (NONE SEEN)
[2020-04-23 08:03] LABS: Urine Yeast MANY (NONE SEEN)
[2020-04-23] MEDS ORDERED: PNEUMOCOCCAL VACCINE 0.5 ML IMVAC ONE (09:00)
--- NOTE | 2020-04-23 09:57 | P.PN ---
Subjective Date of Service: 04/23/20 Primary Care Provider: Dr. Albert, Dr. Cabrera Chief Complaint: Diarrhea, acute renal failure Physical Examination - Vital Signs Temperature: 97.1 F Blood Pressure: 101/52 Pulse: 82 Respirations: 15 Pulse Ox (%): 98 - Studies Laboratory Data (last 24 hrs) 04/22/20 18:00: Uric Acid 12.0 H 04/22/20 18:00: PT 45.6 H, INR 3.91 04/22/20 18:00: WBC 9.90, Hgb 9.8 L, Hct 29.9 L, Plt Count 416 H 04/22/20 18:00: Sodium 132 L, Potassium 5.5 H, BUN 47 H, Creatinine 2.52 H, Glucose 104, Magnesium 1.3 L* D, Total Bilirubin 0.5, AST 201 H, ALT 267 H, Alkaline Phosphatase 253 H, Lipase 630 H Assessment & Plan Discharge Plan: Home Plan to discharge in: 48 Hours Physician Review Additional Text: Physical exam: Patient alert, cooperative Heart: Regular rate rhythm Lungs: Clear to auscultation Abdomen: Soft nontender nondistended. Ostomy in place. Extremities: Good range of motion to the upper lower extremities no focal deficits noted. Assessment Acute renal failure with metabolic acidemia likely secondary to chronic diarrhea S/P ileostomy with history of bowel obstruction Hyperkalemia Hypomagnesemia History of mechanical aortic valve on chronic anticoagulation with Coumadin with supratherapeutic INR Abdominal wall abscess S/P incision and drainage Anemia of chronic disease Plan Acute renal failure with metabolic acidemia likely secondary to chronic diarrhea S/P ileostomy with history of bowel obstruction: Continue with IV fluids. Will discuss with nephrology. Imodium has been restarted. Lomotil had been discontinued due to its side effect of poor appetite. Will discuss with nephr ology. Patient on Coumadin. Hold if INR greater than 3.0. Continue to hydrate. Anticipate improvement over the next 48 hr. Hyperkalemia: Patient given hyperkalemia cocktail in the ED, repeat chemistry pending. Nephrology consult in place. Continue IV fluids. Hypomagnesemia: Magnesium protocol in place. Will need to gain control of watery loose stools. History of mechanical aortic valve on chronic anticoagulation with Coumadin with supratherapeutic INR: Hold Coumadin if INR greater than 3.0. Maintain INR between 2 and 3. Abdominal wall abscess S/P incision and drainage: General surgery consulted for evaluation and management. Anemia of chronic disease: Will check iron and B12 studies. Maintain hemoglobin above 7.0. Time Spent Managing Pts Care (In Minutes): 55
--- NOTE | 2020-04-23 11:04 | CON ---
Date of Consultation: 04/23/2020 Reason For Service: Midline open wound. History Of Present Illness: This is the case of an 79-year-old female, [place] speaking, but I was a ble to speak with her in all language, who claims she has an open wound on her mid abdomen for severa l months already. Unfortunately, she does not remember or recall any details of the surgery. She st ated that she went to [facility]. They did some abdominal surgery and they gave her 2 holes as she describes. One hole that she is pointing is a colostomy bag. Another hole is on the midline incision. She stated that wound has been there for several months, but she has not noticed any progr ess on it and was still there. She was admitted to the hospital for some other medical issues and th en a surgical consult was obtained for wound care. Review of Systems: Unable to be obtained. Unfortunately, she does not recall anything. She refers us to her daughter, who is not present at this moment. She states she had no nausea, no vomiting and she just basically tired of having this midline wound, but she has good bowel movement. She does not recall any previou s colonoscopy or any details why the surgery was done. Physical Examination: Chest: Clear. Abdomen: Soft and depressible. The patient has a viable colostomy on the right side. The patient h as a midline incision with a wound going on the midline with some fibrin present at the bottom, goes deep to the level of the fascia. No evisceration seen. No fluctuance or crepitus. Abdomen is soft and depressible. No guarding or rebound. Extremities: Good capillary refill. Rectal: Deferred. Laboratory Data: Blood work was reviewed. Plan: We need to obtain the operative report from [facility]. We would like to know why the surgery was done, how was done, and the treatment after that, so we can continue the action of care for this patient. It is hard for me to say at this moment if this is just a dehiscence on the wound all this time or just a fistula that she formed, as why the report is important to us. If this is th e fistula, then obviously it is going to be treated differently than it was just an open wound. At t his moment, there is no evisceration present, no evidence of cellulitis, and looked like this is a ch ronic problem. In the meantime, she is going to continue with diet. We are going to pack the area w ith wet-to-dry until we get some more information on her. JENIFER/[place] Voice ID: [id number] Report ID: [id number]
[2020-04-23 13:51] LABS: C.diff Antigen/Toxin Ag neg : Tox neg (NEG : NEG)
--- NOTE | 2020-04-23 14:06 | RAD REPORT ---
EXAM DESCRIPTION: US - Renal Ultrasound-Complete - 04/23/2020 1:58 pm CLINICAL HISTORY: magdy Flank pain COMPARISON: Renal Ultrasound-Complete dated 04/04/2020 FINDINGS: Both kidneys are normal in size, shape and echotexture. The right kidney measures 9.6 x 4.3 x 3.8 cm. No hydronephrosis, focal mass or perinephric fluid. The left kidney measures 9.5 x 3.8 x 3.7 cm. No hydronephrosis, focal mass or perinephric fluid. The urinary bladder is incompletely distended without gross abnormality seen. IMPRESSION: Unremarkable renal sonogram.
[2020-04-23] MEDS: FLUCONAZOLE 100 MG TAB PO SCH (16:01)
[2020-04-24] MEDS: NACHLORIDE 0.45% 1,000 ML IV SCH ×2 (00:14→13:05)
--- NOTE | 2020-04-24 03:17 | CON ---
Date of Consultation: 04/23/2020 Chief Complaint: Acute kidney injury on chronic kidney disease. History Of Present Illness: The patient has nonoliguric acute kidney injury associated with prerenal azotemia, nonoliguric acute tubular necrosis. The patient recently developed diarrhea. Blood work was obtained as outpatient prior to this admission and it showed elevated creatinine. The patient had chronic kidney stage 3. Potassium level was elevated up to 5.5. The patient is admitted for treatment of acute kidney injury. Creatinine was up to 2.5. On discharge in March from the hospital, creatinine was 1.3. Patient has multiple medical problems including history of hypertension, chronic kidney disease. She is an 79-year-old woman with history of hypertension, aortic valve replacement on chronic anticoagulation of Coumadin. The patient was found to have ischemic bowel. The patient was admitted previously for acute kidney injury secondary to volume depletion. During this admission, she was on IV fluids for acute kidney injury. Prior to this admission, she had diarrhea, she did not have good appetite. She had decreased p.o. intake. CT scan of the abdomen demonstrated wound dehiscence in the midline upper pelvis and 3.2 cm low to intermediate density mass within the right inguinal region, which is unchanged from previous exam. Liver and spleen and pancreas appear grossly normal. Previous cholecystectomy was noted. The patient was found to have elevated INR up to 3.91 and Coumadin was on hold. Review of Systems: Constitutional: Denies fever or chills. Eyes: Denies vision changes. Ears, Nose, Mouth and Throat: Denies sore throat, earache. Respiratory: Denies PND or orthopnea. Cardiovascular: Denies chest pain, palpitation, syncope. GI: She is complaining of some abdominal discomfort off and on. Denies nausea, vomiting or melena. : Denies hematuria, dysuria. All other systems reviewed and all are negative. Past Medical History: Diabetes mellitus, diabetic kidney disease, hypertension, chronic kidney disease stage 3, hypertensive heart and kidney disease, benign nephrosclerosis, small-bowel obstruction, ischemic bowel status post bowel resection, knee surgery, cholecystectomy, hysterectomy, ileostomy. Family History: No kidney disease in the family. Social History: Denies tobacco, alcohol, or illicit drugs. Physical Examination: General: Patient is awake, alert, follows commands. Eyes: Anicteric sclerae. EOMI. Ears, Nose, Mouth, and Throat: Oral mucosa moist. No pallor. Neck: Supple. No bruits. Lungs: Diminished breath sounds at bases. No rhonchi. No crackles. Heart: S1, S2. No pericardial friction rub. Abdomen: Soft, benign, nontender. No rebound. No guarding. No CVA tenderness. Extremities: No edema. No clubbing. No cyanosis Neurological: Moving all extremities. Cranial nerves intact. Laboratory Data: PT 35.6, uric acid 12. INR 3.91. WBC 9.9, hemoglobin 9.8, hematocrit 29.9, platelet count 416. Sodium 132, potassium 5.5, BUN 47, creatinine 2.52, glucose 104, magnesium 1.3. Impression And Plan: 1. Acute kidney injury with metabolic changes. There is mild metabolic acidosis, likely secondary to diarrhea. Plan is to continue sodium bicarbonate replacement. Monitor electrolytes and treat hyperkalemia with sodium bicarb and low potassium diet. 2. Hypomagnesemia. Treatment with magnesium replacement as needed. 3. History of mechanical aortic valve, on Coumadin. INR was over target range and patient will have another test to recheck INR. Currently Coumadin is on hold. 4. Hypertension. Continue blood pressure medication. 5. Chronic kidney disease stage 3, acute kidney injury due to acute tubular necrosis and prerenal azotemia. Patient has nonoliguric urine output. 6. Hyperkalemia, will be treated and is already improving. 7. Hyponatremia is present but gradually is improving. Adjust IV fluids as needed. ALEX/[place] Voice ID: [id number] Report ID: [id number] MTDD
--- NOTE | 2020-04-24 04:35 | EKG ---
Test Date: 2020-04-22 Test Time: 17:46:09 Game Operator: PH MEASUREMENT RESULTS: Intervals: Rate: 92 IA: 124 QRSD: 144 QT: 398 QTc: 492 [place]: P: 60 IA: 124 QRS: -13 T: 93 INTERPRETIVE STATEMENTS: Normal sinus rhythm Possible Left atrial enlargement Left bundle branch block Abnormal ECG Compared to ECG 04/04/2020 20:11:21 Atrial premature complex(es) no longer present Electronically Signed On 04-24-20 04:32:34 CDT by Delfino Guzmán
[2020-04-24 07:05] LABS: Protime INR 2.97
[2020-04-24 07:47] LABS: Absolute Lymphocytes (CBC) 1.9 K/uL (0.7-4.9); Basophils % 0.6 % (0-1.3); Hematocrit 24.1 % (36.0-45.0); Lymphocytes % 22.7 % (15.3-44.8); MPV 8.1 fL (7.6-11.3); RBC Red Blood Cell Count 2.67 M/uL (3.86-4.86)
[2020-04-24 08:31] LABS: ALT/SGPT 114 U/L (12-78); AST/SGOT 70 U/L (15-37); Albumin 2.5 g/dL (3.4-5.0); Alkaline Phosphatase 190 U/L (45-117); BUN Blood Urea Nitrogen 23 mg/dL (7-18); Bicarbonate 18 mmol/L (21-32); Bilirubin Total 0.4 mg/dL (0.2-1.0); Ferritin 1061.4 ng/mL (8-388); Folic Acid, (Folate) > 20.0 ng/mL (3.1-17.5); Glucose Level 81 mg/dL (74-106); Magnesium 1.6 mg/dL (1.8-2.4); Potassium 4.3 mmol/L (3.5-5.1); Protein, Total 5.6 g/dL (6.4-8.2); Sodium Level 145 mmol/L (136-145); Transferrin 152 mg/dL (200-360)
[2020-04-24] MEDS: LOPERAMIDE HCL 2 MG CAPSULE PO SCH ×4 (08:42→20:30)
[2020-04-24] MEDS: DIPHENOX/ATROP SULF 1 TAB PO PRN (08:42)
[2020-04-24] MEDS: FLUCONAZOLE 100 MG TAB PO SCH (08:42)
[2020-04-24] MEDS ORDERED: MAGNESIUM SULFATE 1 gm IVPB 1 GM/100 ML BAG IV ONE (10:10)
--- NOTE | 2020-04-24 11:12 | P.PN ---
Subjective Date of Service: 04/24/20 Primary Care Provider: Dr. Albert, Dr. Cabrera Chief Complaint: Diarrhea, acute renal failure Subjective: Improving, Doing well Physical Examination - Vital Signs Temperature: 97.1 F Blood Pressure: 116/56 Pulse: 75 Respirations: 18 Pulse Ox (%): 100 Assessment & Plan Discharge Plan: Home Plan to discharge in: 24 Hours Physician Review Additional Text: Physical exam: Patient alert, cooperative Heart: Regular rate rhythm Lungs: Clear to auscultation Abdomen: Soft nontender nondistended. Ostomy in place. Chronic wound appears stable. Extremities: Good range of motion to the upper lower extremities no focal deficits noted. 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 Renal function close to baseline. Will discuss with nephrology. Patient has done well. No significant output noted on ostomy. This seems to be controlled with Imodium and Lomotil. Spoke with surgery. No surgical intervention needed at this time. Try and obtain records from prior hospitalizations. Anticipate continued improvement. Likely discharge tomorrow. Will discuss with nephrology. Will discuss with family about plan of care. Hyperkalemia: This has resolved. Continue monitor closely. Hypomagnesemia: Magnesium protocol in place. Will need to gain control of watery loose stools. History of mechanical aortic valve on chronic anticoagulation with Coumadin with supratherapeutic INR: Hold Coumadin if INR greater than 3.0. Maintain INR between 2 and 3. 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 This appears stable. Continue with current wound care. Anemia of chronic disease: Hemoglobin stable. Maintain hemoglobin above 7.0. Time Spent Managing Pts Care (In Minutes): 55
[2020-04-24 12:52] VITALS: O2SAT 97
[2020-04-24] MEDS ORDERED: MIRTAZAPINE 15 MG TAB PO PRN (13:47)
[2020-04-24] MEDS: CEFTRIAXONE/SWI 1gm 1 GM/10 ML SYR IVP SCH (15:00)
[2020-04-24] MEDS ORDERED: ATORVASTATIN 40 MG TAB PO SCH (21:00)
[2020-04-24] MEDS ORDERED: FERROUS SULFATE 325 MG TAB PO SCH (21:00)
[2020-04-24] MEDS ORDERED: METOPROLOL TAR 25 MG TAB PO SCH (21:00)
--- NOTE | 2020-04-25 02:20 | PN ---
Date of Progress Note: 04/24/2020 Subjective: The patient was admitted to the hospital with acute kidney injury and hyperkalemia. The patient had small bowel obstruction with ischemic bowel. Patient was started on IV hydration. Kidney function has been trending down. Potassium has been normalized. Physical Examination: Vital Signs: When I saw the patient today, blood pressure 116/58, pulse of 78, afebrile. The patient had good urine output of 700. Positive of 700. Chest: Clear to auscultation. Heart: S1, S2. Regular. Abdomen: Mild tenderness. No guarding or rebound. Extremities: No edema. Neurologic: Alert. No focal. Laboratory Data: WBC 8.3, H and H 7.8/24.1, platelets 299. Sodium 145, potassium 4.3, bicarb 18, BUN 23, creatinine 1.1, GFR of 44, calcium 7.9, phosphorus of 3, magnesium 1.6. Iron saturation 28, ferritin 1000. Serum protein electrophoresis pending. Urinalysis positive for infection. Culture has been pending. Current Medications: The patient on include, 1. Aspirin. 2. Ceftriaxone 1 g daily. 3. Ferrous sulfate. 4. Coumadin. 5. Zofran. 6. Loperamide. 7. IV fluid. 8. Magnesium. Assessment And Plan: 1. Acute kidney injury secondary to prerenal, recovered, resolved, back to close to baseline. The patient started good tolerating p.o. intake. I am going to go ahead and discontinue IV fluid. 2. Nonanion gap metabolic acidosis secondary to IV fluid/GI loss. We will discontinue IV fluid and we will monitor. 3. Hyponatremia secondary to depletional, resolved. 4. Hyperkalemia, resolved. 5. Anemia of chronic kidney disease. We will continue to monitor. 6. Small bowel obstruction/ileus as by primary. 7. Urinary tract infection. Continue current antibiotic. We will follow up culture. time spent examined the patient face to face s discussed with the patient placed order discussing the case with other business team leader including nurses , discussing with other specialist include a hospitalist 45 min TERRY/[place] Voice ID: [id number] Report ID: [id number] [facility]
[2020-04-25 06:19] LABS: Absolute Lymphocytes (CBC) 1.7 K/uL (0.7-4.9); Basophils % 0.8 % (0-1.3); Hematocrit 24.6 % (36.0-45.0); RBC Red Blood Cell Count 2.74 M/uL (3.86-4.86)
[2020-04-25 06:29] LABS: Protime INR 2.51
[2020-04-25 06:45] LABS: ALT/SGPT 98 U/L (12-78); AST/SGOT 60 U/L (15-37); Albumin 2.5 g/dL (3.4-5.0); BUN Blood Urea Nitrogen 18 mg/dL (7-18); Bicarbonate 19 mmol/L (21-32); Bilirubin Total 0.4 mg/dL (0.2-1.0); Glucose Level 80 mg/dL (74-106); Phosphorus 2.4 mg/dL (2.5-4.9); Potassium 4.7 mmol/L (3.5-5.1); Protein, Total 6.1 g/dL (6.4-8.2); Sodium Level 142 mmol/L (136-145)
[2020-04-25] MEDS ORDERED: LEVOTHYROXINE SOD 0.125 MG TAB PO SCH (07:30)
[2020-04-25] MEDS: LOPERAMIDE HCL 2 MG CAPSULE PO SCH ×2 (08:55→11:30)
[2020-04-25] MEDS: DIPHENOX/ATROP SULF 1 TAB PO PRN (08:56)
[2020-04-25] MEDS: CEFTRIAXONE/SWI 1gm 1 GM/10 ML SYR IVP SCH (08:57)
[2020-04-25] MEDS ORDERED: WARFARIN SODIUM 2.5 MG TAB PO SCH (09:00)
[2020-04-25] MEDS ORDERED: ENSURE HIGH PROTEIN 237 ML CAN PO SCH (09:00)
[2020-04-25] MEDS ORDERED: ASPIRIN EC 81 MG TAB PO SCH (09:00)
--- NOTE | 2020-04-25 12:51 | PN ---
Date of Progress Note: 04/24/2020 Diagnosis: Nonhealing wound of the midline incision. Subjective: The patient is doing well, tolerating diet. No fever. No shortness of breath. No ches t pain. Review of Systems: Ten points otherwise unremarkable. Objective: Abdomen: Intact surgical site. The patient had surgery done several months ago at [facility] with nonhealing wound over the midline. No intestines seen. No GI contents seen. Os milly viable. Plan: The patient will continue medical service when she gets discharged and [facility] She also encouraged to follow up her own surgeons, but she does not want to go back there again. So, she is welcome to come to the [facility]. No heavy lifting. JENIFER/[place] Voice ID: [id number] Report ID: [id number]
--- NOTE | 2020-04-25 13:13 | P.DS ---
Admission Date: 04/22/20 Discharge Date: 04/25/20 Primary Care Provider: Dr. Albert, Dr. Cabrera Disposition: ROUTINE DISCHARGE Discharge Condition: GOOD Reason for Admission: Diarrhea, acute renal failure Consultations: Nephrology-Dr. Frazier Surgery-Dr. Cast Procedures: COVID: Negative Renal US: COMPARISON: Renal Ultrasound-Complete dated 04/04/2020 FINDINGS: Both kidneys are normal in size, shape and echotexture. The right kidney measures 9.6 x 4.3 x 3.8 cm. No hydronephrosis, focal mass or perinephric fluid. The left kidney measures 9.5 x 3.8 x 3.7 cm. No hydronephrosis, focal mass or perinephric fluid. The urinary bladder is incompletely distended without gross abnormality seen. IMPRESSION: Unremarkable renal sonogram. CT Scan: FINDINGS: Tiny nonobstructing bilateral renal calculi. No hydronephrosis. . An ureteral calculus is not noted. A bladder calculus is not present. The liver, spleen, pancreas and adrenals appear grossly normal Right lower quadrant ileostomy. Right hemicolectomy. Wound dehiscence midline upper pelvis 3.2 centimeter low to intermediate density mass within the right inguinal region without significant change. A 4 centimeter diverticulum stems from the third portion duodenum. Cholecystectomy IMPRESSION: Wound dehiscence midline upper pelvis 3.2 centimeter low to intermediate density mass within the right inguinal region is unchanged from the prior exam. 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 Daughter at bedside reports that patient has continued to have watery stools despite taking Imodium. Patient was recently taken off of Lomotil due to its effects on her appetite but has persisted having watery stools since she was discharged workup in the emergency department significant for elevated creatinine 2.5 to, at discharge on 04/06/2020, creatinine was 1.3 GFR 18 CO2 20 sodium 132 potassium 5.5, magnesium 1.3 AST 201 ALT 267, alk-phos 253 BNP slightly elevated 2138 lipase 630 patient without any epigastric pain. CT abdomen demonstrates a wound dehiscence in the midline upper pelvis and a 3.2 cm low to intermediate density mass within the right inguinal region which is unchanged from previous exams. Liver or spleen and pancreas appear grossly normal. Previous cholecystectomy. Patient's INR also 3.91 mildly supratherapeutic. ED provider wishes to admit patient for acute renal failure. When I saw the patient in the ER she is awake, alert, oriented x3, daughter at bedside. Discussed elevated LFTs as well, patient had recent followup with gastroenterology who stated he was not concerned about these elevations in LFTs at this time, patient with previous cholecystectomy patient without any upper abdominal pain or tenderness. Patient does not appear septic at this time, will admit for further evaluation and management. Hospital Course: Patient presented with acute renal failure with metabolic acidosis secondary to chronic diarrhea status post ileostomy with history of bowel obstruction. Patient was admitted for further evaluation and treatment. Patient responded well to IV fluids. Patient was placed on a regimen of Imodium AC HS and Lomotil as needed. Her diarrhea improved. Patient was seen and evaluated by surgery as she has a chronic abdominal wound near the ostomy. This was related to a prior abscess. She had history of incision and drainage. No surgical intervention was required. At discharge patient will continue with Imodium AC HS and Lomotil 3 times a day as needed if with significant diarrhea. Patient will also continue with Ensure supplementation twice daily to maintain adequate hydration. Patient will need to continue with current wound care as recommended by surgery. Patient can follow up [facility]. Surgery will review prior hospitalizations and surgery to determine what patient may require in the future. Recommend to recheck lab-BMP within 1 week. Recommend follow up with nephrology in 1-2 weeks to follow her renal function. She plans to reestablish care with Dr. Maza. Patient with history of mechanical aortic bowel on chronic anti coagulation therapy. Coumadin is now therapeutic. At discharge she will continue with Coumadin 2.5 mg daily. Recommend to recheck lab-INR within 1 week to monitor her progress. Further adjustment can be done by cardiology. As mentioned above patient with chronic abdominal wound. This was from a prior abscess status post incision and drainage. Patient will continue with current wound care as recommended by surgery. Recommend follow [facility] Wednesday. Patient with hyperlipidemia. At discharge patient will continue with Lipitor 40 mg daily. Patient with hypothyroidism. At discharge she will continue with levothyroxine 125 mcg daily. Anemia of chronic disease noted. H/H is stable. Patient may continue with iron supplementation daily. Recommend to recheck lab-CBC in 1 week to monitor her progress. Patient also found to have UTI. Urine culture positive for Citrobacter. Patient will continue with antibiotic therapy-Omnicef 300 mg daily for 7 days. UTI prevention will be provided. Vital Signs/Physical Exam: Temp Pulse Resp BP Pulse Ox 97.2 F 72 18 124/59 L 98 04/25/20 12:00 04/25/20 12:00 04/25/20 12:00 04/25/20 12:00 04/25/20 12:00 General: Alert, In no apparent distress, Oriented x3, Cooperative HEENT: Atraumatic Neck: Supple Respiratory: Clear to auscultation bilaterally, Normal air movement Cardiovascular: Normal pulses, Regular rate/rhythm Gastrointestinal: Normal bowel sounds, Soft and benign, Non-distended, No masses, No rebound, No guarding, Other (Ostomy in place. Chronic wound shows no acute changes) Neurological: Normal speech, Normal strength at 5/5 x4 extr, Normal tone, Normal affect Laboratory Data at Discharge: WBC 8.60 K/uL (4.3-10.9) 04/25/20 06:08 Hgb 7.9 g/dL (12.0-15.0) L* 04/25/20 06:08 Hct 24.6 % (36.0-45.0) L 04/25/20 06:08 Plt Count 316 K/uL (152-406) 04/25/20 06:08 PT 29.1 SECONDS (9.5-12.5) H 04/25/20 06:08 INR 2.51 04/25/20 06:08 Sodium 142 mmol/L (136-145) 04/25/20 06:08 Potassium 4.7 mmol/L (3.5-5.1) 04/25/20 06:08 BUN 18 mg/dL (7-18) 04/25/20 06:08 Creatinine 1.08 mg/dL (0.55-1.3) 04/25/20 06:08 Glucose 80 mg/dL (74-106) 04/25/20 06:08 Uric Acid 9.0 mg/dL (2.6-6.0) H D 04/24/20 06:36 Phosphorus 2.4 mg/dL (2.5-4.9) L 04/25/20 06:08 Magnesium 2.0 mg/dL (1.8-2.4) 04/25/20 06:08 Total Bilirubin 0.4 mg/dL (0.2-1.0) 04/25/20 06:08 AST 60 U/L (15-37) H 04/25/20 06:08 ALT 98 U/L (12-78) H 04/25/20 06:08 Alkaline Phosphatase [employer] 04/25/20 06:08 Lipase 630 U/L (73-393) H 04/22/20 18:00 Home Medications: Aspirin [Aspirin EC 81 MG] 81 mg PO DAILY 04/23/20 Atorvastatin Calcium 40 mg PO BEDTIME 04/23/20 Ferrous Sulfate [Iron] 325 mg PO BEDTIME 04/23/20 Levothyroxine Sodium [Euthyrox] 125 mcg PO ACB 04/23/20 Warfarin Sodium 2.5 mg PO DAILY 04/23/20 Cefdinir [Omnicef] 300 mg PO DAILY #7 capsule 04/25/20 Diphenox/Atropine [Lomotil*] 1 tab PO TID PRN #30 tab 04/25/20 Ensure High Protein 237 ml PO BID #60 can 04/25/20 Loperamide [Imodium*] 4 mg PO ACHS #120 cap 04/25/20 New Medications: Ensure High Protein 237 ml PO BID #60 can Loperamide [Imodium*] 4 mg PO ACHS #120 cap Diphenox/Atropine [Lomotil*] 1 tab PO TID PRN #30 tab PRN Reason: Diarrhea Cefdinir [Omnicef] 300 mg PO DAILY #7 capsule Physician Discharge Instructions: Patient presented with acute renal failure with metabolic acidosis secondary to chronic diarrhea status post ileostomy with history of bowel obstruction. Patient was admitted for further evaluation and treatment. Patient responded well to IV fluids. Patient was placed on a regimen of Imodium AC HS and Lomotil as needed. Her diarrhea improved. Patient was seen and evaluated by surgery as she has a chronic abdominal wound near the ostomy. This was related to a prior abscess. She had history of incision and drainage. No surgical intervention was required. At discharge patient will continue with Imodium AC HS and Lomotil 3 times a day as needed if with significant diarrhea. Patient will also continue with Ensure supplementation twice daily to maintain adequate hydration. Patient will need to continue with current wound care as recommended by surgery. Patient can follow up with [facility] locally [facility]. Surgery will review prior hospitalizations and surgery to determine what patient may require in the future. Recommend to recheck lab-BMP within 1 week. Recommend follow up with nephrology in 1-2 weeks to follow her renal function. Patient plans to reestablish care with Dr. Maza in the next week Patient with history of mechanical aortic bowel on chronic anti coagulation therapy. Coumadin is now therapeutic. At discharge she will continue with Coumadin 2.5 mg daily. Recommend to recheck lab-INR within 1 week to monitor he r progress. Further adjustment can be done by cardiology. As mentioned above patient with chronic abdominal wound. This was from a prior abscess status post incision and drainage. Patient will continue with current wound care as recommended by surgery. Recommend follow [facility] on Wednesday. Patient with hyperlipidemia. At discharge patient will continue with Lipitor 40 mg daily. Patient with hypothyroidism. At discharge she will continue with levothyroxine 125 mcg daily. Anemia of chronic disease noted. H/H is stable. Patient may continue with iron supplementation daily. Recommend to recheck lab-CBC in 1 week to monitor her progress. Patient also found to have UTI. Urine culture positive for Citrobacter. Patient will continue with antibiotic therapy-Omnicef 300 mg daily for 7 days. UTI prevention will be provided. Diet: Soft GI Activity: Fall precautions Followup: Jean Sutherland MD [Primary Care Provider] - Time spent managing pt's care (in minutes): 55
[2020-04-25 16:48] VITALS: BP 125/60; TEMP 98.1
--- NOTE | 2020-04-25 22:56 | P.PN ---
Subjective Date of Service: 04/26/20 Primary Care Provider: Dr. Albert, Dr. Cabrera Chief Complaint: Diarrhea, acute renal failure Subjective: No new changes, No C/O voiced, Tolerating diet, Ambulating, Improving Physical Examination - Vital Signs Temperature: 98.1 F Blood Pressure: 125/60 Pulse: 77 Respirations: 17 Pulse Ox (%): 98 - Physical Exam General: In no apparent distress HEENT: Atraumatic, Normocephalic Neck: Without JVD or thyroid abnormality Respiratory: Clear to auscultation bilaterally Cardiovascular: No murmurs Gastrointestinal: Soft and benign Musculoskeletal: No clubbing Assessment And Plan - Plan # HEATHER Improved Monitor renal panel # UTI Cont omnicef x 7d total therapy # Metabolic acidosis 2/2 increased ileostomy output Cont oral bicarb at 1300 mg po bid # Anemia Cont po iron Monitor H/H # Chronic abdominal wound Wound care # Hypophosphatemia Monitor # S/p Aortic valve replacement On coumadin # Dispo Ok to dc today Physician Review Additional Text: Physical exam: Patient alert, cooperative Heart: Regular rate rhythm Lungs: Clear to auscultation Abdomen: Soft nontender nondistended. Ostomy in place. Chronic wound appears stable. Extremities: Good range of motion to the upper lower extremities no focal deficits noted. 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 Renal function close to baseline. Will discuss with nephrology. Patient has done well. No significant output noted on ostomy. This seems to be controlled with Imodium and Lomotil. Spoke with surgery. No surgical intervention needed at this time. Try and obtain records from prior hospitalizations. Anticipate continued improvement. Likely discharge tomorrow. Will discuss with nephrology. Will discuss with family about plan of care. Hyperkalemia: This has resolved. Continue monitor closely. Hypomagnesemia: Magnesium protocol in place. Will need to gain control of watery loose stools. History of mechanical aortic valve on chronic anticoagulation with Coumadin with supratherapeutic INR: Hold Coumadin if INR greater than 3.0. Maintain INR between 2 and 3. 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 This appears stable. Continue with current wound care. Anemia of chronic disease: Hemoglobin stable. Maintain hemoglobin above 7.0.
[2020-04-26 04:33] LABS: HBsAG Nonreactive (Nonreactive)
[2020-04-27 23:28] LABS: Vitamin D 1,25-Dihydroxy Total <8 pg/mL (18-72); Vitamin D,1,25-OH2, D2 <8 pg/mL
[2020-04-28 05:47] LABS: Albumin, (SPE) 2.7 g/dL (3.8-4.8); Alpha-1-Globulins 0.3 g/dL (0.2-0.3); Alpha-2-Globulins 0.6 g/dL (0.5-0.9); Gamma Globulins 1.1 g/dL (0.8-1.7); INTERPRETATION REPORT
== END 2020-04-25 17:19 | disposition home or self-care (01) | DRG 683 ==
LOC: ER 13:16 → ERHOLD 19:54 → 2ND 23:50
PROVIDERS: ADMIT Family Medicine; ATTEND Family Medicine
DX: N17.0 Acute kidney failure with tubular necrosis (principal); E87.2 Acidosis; E87.1 Hypo-osmolality and hyponatremia; N39.0 Urinary tract infection, site not specified; K56.699 Other intestinal obstruction unspecified as to partial versus complete obstruction; E78.5 Hyperlipidemia, unspecified; E87.5 Hyperkalemia; E83.39 Other disorders of phosphorus metabolism; K52.9 Noninfective gastroenteritis and colitis, unspecified; E83.42 Hypomagnesemia; E03.9 Hypothyroidism, unspecified; D63.8 Anemia in other chronic diseases classified elsewhere; I12.9 Hypertensive chronic kidney disease with stage 1 through stage 4 chronic kidney disease, or unspecified chronic kidney disease; N18.30 Chronic kidney disease, stage 3 unspecified; D63.1 Anemia in chronic kidney disease; B96.89 Other specified bacterial agents as the cause of diseases classified elsewhere; Z79.82 Long term (current) use of aspirin; Z95.1 Presence of aortocoronary bypass graft; Z79.01 Long term (current) use of anticoagulants; Z90.710 Acquired absence of both cervix and uterus; Z79.899 Other long term (current) drug therapy; Z90.49 Acquired absence of other specified parts of digestive tract; Z79.890 Hormone replacement therapy; Z95.2 Presence of prosthetic heart valve; Z88.5 Allergy status to narcotic agent; Z20.822 Contact with and (suspected) exposure to COVID-19
CPT/HCPCS: 36415; 71045; 74176; 76377; 76770; 80048; 80053; 80069; 80074; 80076; 81003; 81015; 82607; 82652; 82728; 82746; 83540; 83690; 83735; 83880; 84100; 84165; 84439; 84443; 84466; 84484; 84550; 85025; 85610; 86021; 87045; 87046; 87077; 87086; 87088; 87177; 87186; 87209; 87324; 87449; 89055; 93005; 96361; 96365; 96375; 97116; 97161; 97530; 99285; J0696; J3475; J7030; U0003

== ENCOUNTER 2020-06-10 14:33 | Inpatient (IN) | payer OTHER, MEDICARE ==
--- OUTSIDE RECORDS SUMMARY | 2020-06-10 14:45 | XMS REPORT | Continuity of Care Document ---
:1940 Author Organization [facility] t Address [address] [place] [address] Care Team Providers Name Role Phone Doctor Unassigned, Name Attending Clinician Unavailable Ellyn RN Attending Clinician Unavailable Payers Payer Name Policy Type Policy Number Effective Date Expiration Date S ource Problems This patient has no known problems. Allergies, Adverse Reactions, Alerts Allergy Allergy Status Severity Reaction(s) Onset Inactive Treating Comm ents Source Name Type Date Date Clinician morphine DA Active [facility] 02-24 00:: [address] codeine DA Active [facility] 02-24 00:00: [address] No Known DA Active U 2019-02 [facility] 1 s 00:00: [address] No Known DA Active U 2020- [facility] 029 s 00:: [address] No Known DA Active U 2019- [facility] 0-16 s 00:: [address] Medications This patient has no known medications. Procedures This patient has no known procedures. Encounters Start End Encounter Admission Attending Care Care Encounter Source Date/Time Date/Time Type Type Clinicians Facility Department ID 2020-03-04 2020-03-04 Orders Doctor GIORGI [id number] 00:00:00 00:00:00 Only Unassigned, DESEAN 350.1.13.10 [place] [facility] 4.2.7.2.686 [id number] 2020-02-22 2020-02-22 Transition Zuhair Ragland 1.2.840.114 [id number] 00:00:00 00:00:00 of Care Lisa Oneal 350.1.13.10 [place] 4.2.7.2.686 [id number] Results Test Description Test Time Test Comments Results Result Comments Source TRANSFERRRIN 2020-03-01 07:17:00 Test Item Value Reference Range Interpretation Comme nts TRANSFERRRIN (test code = 130 mg/dL 192-364 L Pe rformed At: [facility] TRANSF) [address] [id number] Trinidad MD Ph:[phone] PROTHROMBIN [id number] 16:15:00 Test Item Value Reference Range Interpretation [...] STAFF: VELIA 02/29/20 AT 1359 BY YASHIRAERPROTHROMBIN [id number] 11:04:00 Test Item Value Reference Range Interpretation [...] eric embolism. 3.0 - 4.5 Comments to Contract Preparer: CHECK AT LEAST 30 MIN AFTER AFTER FFP INFUSIONPROTHROMBIN [id number] 08:05:00 Test Item Value Reference Range Interpretation [...] syste eric embolism. 3.0 - 4.5 PROTHROMBIN [id number] 16:53:00 Test Item Value Reference Range Interpretation [...] eric embolism. 3.0 - 4.5 BASIC METABOLIC [id number] 09:10:00 Test Item Value Reference Range Interpretation [...] code = 8.6 MG/DL 8.4-10.2 N CA) [id number] 09:10:00 Test Item Value Reference Range Interpretation [...] 21 % 12-57 N FESAT) BASIC METABOLIC [id number] 07:10:00 Test Item Value Reference Range Interpretation [...] code = 8.6 MG/DL 8.4-10.2 N CA) [id number] 07:10:00 Test Item Value Reference Range Interpretation Comments FERRITIN (test code = MARSHALL) NG/ML 11.1-264 PROTHROMBIN [id number] 07:07:00 Test Item Value Reference Range Interpretation [...] eric embolism. 3.0 - 4.5 BASIC METABOLIC [id number] 07:04:00 Test Item Value Reference Range Interpretation [...] CALCIUM (test code = MG/DL 8.7-9.7 CA) [id number] 07:04:00 Test Item Value Reference Range Interpretation Comments FERRITIN (test code = MARSHALL) NG/ML 11.1-264 BASIC METABOLIC [id number] 07:01:00 Test Item Value Reference Range Interpretation [...] CALCIUM (test code = CA) MG/DL 8.7-9.7 [id number] 07:01:00 Test Item Value Reference Range Interpretation Comments FERRITIN (test code = MARSHALL) NG/ML 11.1-264 BASIC METABOLIC [id number] 07:01:00 Test Item Value Reference Range Interpretation [...] CALCIUM (test code = CA) MG/DL 8.7-9.7 [id number] 07:01:00 Test Item Value Reference Range Interpretation Comments FERRITIN (test code = MARSHALL) NG/ML 11.1-264 FE W/TOTAL IRON BINDING CAP.2020-02-28 07:00:00 Test Item Value Reference Range Interpretation Comments SERUM IRON (test code = IRON) 43 MCG/DL 37-170 N TOTAL IRON BINDING CAPACITY (test MCG/DL 265-497 code = TIBC) IRON SATURATION (test code = FESAT) % 12-57 RETICULOCYTE [id number] 06:35:00 Test Item Value Reference Range Interpretation Comments RETICULOCYTE COUNT (test code = RETICT) 1.2 % 0.5-1.5 N CBC W/AUTO [id number] 06:33:00 Test Item Value Reference Range Interpretation [...] = 0.00 K/mm3 0.0-0.1 N NRBC#) PROTHROMBIN [id number] 21:27:00 Test Item Value Reference Range Interpretation [...] 02/27/20 AT 1718 BY Ashutosh [place] BEDSIDE [id number] 19:55:00 Test Item Value Reference Range Interpretation Comments GLUCOSE BEDSIDE TESTING (test code = 91 MG/DL 60-99 N GLUBED) [id number] 15:47:00 Test Item Value Reference Range Interpretation Comments PREALBUMIN (test code = PREALB) 13 MG/DL 17-42 L UR SMEAR EOSINOPHIL [id number] 07:16:00 Test Item Value Reference Range Interpretation Comments UR SMEAR EOSINOPHIL COUNT (test code = NONE RARE EOSCTU) BASIC METABOLIC [id number] 07:04:00 Test Item Value Reference Range Interpretation [...] 8.4 MG/DL 8.4-10.2 N CA) CBC W/AUTO [id number] 06:56:00 Test Item Value Reference Range Interpretation [...] 0.00 K/mm3 0.0-0.1 N NRBC#) BASIC METABOLIC [id number] 06:27:00 Test Item Value Reference Range Interpretation [...] (test code = CA) MG/DL 8.7-9.7 PROTHROMBIN [id number] 06:24:00 Test Item Value Reference Range Interpretation [...] eric embolism. 3.0 - 4.5 UR SODIUM [id number] 06:06:00 Test Item Value Reference Range Interpretation Comments UR SODIUM RANDOM (test code = RENETTA) 111 MMOL/L 27-287 N UR PROTEIN [id number] 06:06:00 Test Item Value Reference Range Interpretation Comments UR PROTEIN RANDOM (test code = 43 MG/DL 0-11.9 H PROTU) UR CREATININE [id number] 06:06:00 Test Item Value Reference Range Interpretation Comments UR CREATININE RANDOM (test code = 83.4 CREATU) UR OSMOLALITY [id number] 06:06:00 Test Item Value Reference Range Interpretation Comments UR OSMOLALITY RANDOM (test code 469.5 MOS/KG 300-1200 N = OSMOU) UR SODIUM [id number] 05:33:00 Test Item Value Reference Range Interpretation Comments UR SODIUM RANDOM (test code = RENETTA) 111 MMOL/L 27-287 N UR PROTEIN [id number] 05:33:00 Test Item Value Reference Range Interpretation Comments UR PROTEIN RANDOM (test code = 43 MG/DL 0-11.9 H PROTU) UR CREATININE [id number] 05:33:00 Test Item Value Reference Range Interpretation Comments UR CREATININE RANDOM (test code = 83.4 CREATU) UR OSMOLALITY [id number] 05:33:00 Test Item Value Reference Range Interpretation Comments UR OSMOLALITY RANDOM (test code = MOS/KG 300-1200 OSMOU) UR SODIUM [id number] 05:30:00 Test Item Value Reference Range Interpretation Comments UR SODIUM RANDOM (test code = RENETTA) 111 MMOL/L 27-287 N UR PROTEIN [id number] 05:30:00 Test Item Value Reference Range Interpretation Comments UR PROTEIN RANDOM (test code = 43 MG/DL 0-11.9 H PROTU) UR CREATININE [id number] 05:30:00 Test Item Value Reference Range Interpretation Comments UR CREATININE RANDOM (test code = CREATU) UR OSMOLALITY [id number] 05:30:00 Test Item Value Reference Range Interpretation Comments UR OSMOLALITY RANDOM (test code = MOS/KG 300-1200 OSMOU) UR SODIUM [id number] 05:29:00 Test Item Value Reference Range Interpretation Comments UR SODIUM RANDOM (test code = RENETTA) 111 MMOL/L 27-287 N UR PROTEIN [id number] 05:29:00 Test Item Value Reference Range Interpretation Comments UR PROTEIN RANDOM (test code = PROTU) MG/DL 0-11.9 UR CREATININE [id number] 05:29:00 Test Item Value Reference Range Interpretation Comments UR CREATININE RANDOM (test code = CREATU) UR OSMOLALITY [id number] 05:29:00 Test Item Value Reference Range Interpretation Comments UR OSMOLALITY RANDOM (test code = MOS/KG 300-1200 OSMOU) - US RETRO [id number] 22:50:00 [facility] 1940 Sex: F Patient Name: JORGE A HORTA Unit No: [id number] EXAMS: CPT CODE: [id number] US RETRO LTD 24120 Retroperitoneal ultrasound. Location: R16 His tory: Hematuria.. [...] (2249) [id number] Orig Print D/T: S: 02/26/2020 (2619) [facility] NAME: JORGE A HORTA [place] PHYS: LEVY.Edmond - [place] [address] : 1940 AGE: 79 SEX: F LOC: Z.513 A PHONE #: [phone] EXAM DATE: 02/26/2020 STATUS: ADM IN FAX #: [phone] RADIOLOGY NO: PAGE 1 Signed ReportGLUCOSE BEDSIDE [id number] 15:32:00 Test Item Value Reference Range Interpretation Comments GLUCOSE BEDSIDE TESTING (test code = 79 MG/DL 60-99 N GLUBED) LACTIC [id number] 13:01:00 Test Item Value Reference Range Interpretation Comments LACTIC ACID (test code = LACT) 1.3 MMOL/L 0.7-2.1 N GLUCOSE BEDSIDE [id number] 12:21:00 Test Item Value Reference Range Interpretation Comments GLUCOSE BEDSIDE TESTING (test code = 78 MG/DL 60-99 N GLUBED) COMPREHENSIVE METABOLIC [id number] 11:41:00 Test Item Value Reference Range Interpretation [...] H PHOSPHATASE (test code = ALKP) PROTHROMBIN [id number] 11:31:00 Test Item Value Reference Range Interpretation [...] eric embolism. 3.0 - 4.5 CBC W/AUTO [id number] 11:25:00 Test Item Value Reference Range Interpretation [...] 0.00 K/mm3 0.0-0.1 N NRBC#) GLUCOSE BEDSIDE [id number] 08:29:00 Test Item Value Reference Range Interpretation Comments GLUCOSE BEDSIDE TESTING (test code = 72 MG/DL 60-99 N GLUBED) GLUCOSE BEDSIDE [id number] 00:04:00 Test Item Value Reference Range Interpretation Comments GLUCOSE BEDSIDE TESTING (test code = 68 MG/DL 60-99 N GLUBED) PROTHROMBIN [id number] 23:52:00 Test Item Value Reference Range Interpretation [...] 3.0 - 4.5 COVID 19 Asymptomatic IH [id number] 23:42:00 Test Item Value Reference Range Interpretation [...] virus (antigen) in the sample." THYROID STIMULATING [id number] 23:04:00 Test Item Value Reference Range Interpretation Comments THYROID STIMULATING 21.300 MIU/L 0.465-4.68 H Please b e aware that HORMONE (test code = bias re sults for TSH TSH) may occur forpa kamnt who are taking Biotin suppleme nts. GLYCOSYLATED HEMOGLOBIN [id number] 22:37:00 Test Item Value Reference Range Interpretation [...] 70-110 N (test code = MBG) URINALYSIS [id number] 18:24:00 Test Item Value Reference Range Interpretation [...] Culture Chk code = UACULT) Criteria UA [id number] 18:24:00 Test Item Value Reference Range Interpretation Comments UA RBC (test code = RBCU) 50-100 RBC/HPF 0-3 A UA WBC (test code = XWBCU) >100 WBC/HPF 0-5 A UA EPITHELIAL CELLS (test code FEW EPI/HPF FEW = EPIU) UA BACTERIA (test code = MODERATE NONE A XBACU) UA YEAST (test code = YEASTU) FEW #/HPF NONE A URINALYSIS [id number] 18:13:00 Test Item Value Reference Range Interpretation [...] code Criteria Culture Chk = UACULT) UA [id number] 18:13:00 Test Item Value Reference Range Interpretation Comments UA RBC (test code = RBCU) RBC/HPF 0-3 UA WBC (test code = XWBCU) WBC/HPF 0-5 UA EPITHELIAL CELLS (test code = EPI/HPF FEW EPIU) UA BACTERIA (test code = XBACU) NONE URINALYSIS [id number] 18:13:00 Test Item Value Reference Range Interpretation [...] code Criteria Culture Chk = UACULT) UA [id number] 18:13:00 Test Item Value Reference Range Interpretation Comments UA RBC (test code = RBCU) RBC/HPF 0-3 UA WBC (test code = XWBCU) WBC/HPF 0-5 UA EPITHELIAL CELLS (test code = EPI/HPF FEW EPIU) UA BACTERIA (test code = XBACU) NONE COMPREHENSIVE METABOLIC [id number] 17:13:00 Test Item Value Reference Range Interpretation [...] RECOLLECTION NEEDED ON 02/25/20 AT 1538 BY [id number]: NOT ENOUGH BLOODNOTIFIED PATIENT CARE STAFF: GIDEON MillanKassandra SAID TO SEND PHELBPHOSPHOROUS 2020-02-25 17:13:00 Test Item Value Reference Range Interpretation Comments PHOSPHOROUS (test code = PHOS) 4.3 MG/DL 2.5-4.5 N RECOLLECTION NEEDED ON 02/25/20 AT 1538 BY Z.LAB.AOK9DRBVHM: NOT ENOUGH BLOODNOTIFIED PATIENT CARE STAFF: GIDEON MillanKassandra SAID TO SEND [id number] 17:13:00 Test Item Value Reference Range Interpretation Comments LIPASE (test code = LIP) 313 UNITS/L 23-300 H RECOLLECTION NEEDED ON 02/25/20 AT 1538 BY Z.LAB.CEE6LKUJRH: NOT ENOUGH BLOODNOTIFIED PATIENT CARE STAFF: GIDEON MillanKassandra SAID TO SEND PHELBMAGNESIUM 2020-02-25 17:13:00 Test Item Value Reference Range Interpretation Comments MAGNESIUM (test code = MAG) 1.7 MG/DL 1.6-2.3 N RECOLLECTION NEEDED ON 02/25/20 AT 1538 BY Z.LAB.AAT5PYODIX: NOT ENOUGH BLOODNOTIFIED PATIENT CARE STAFF: GIDEON MillanKassandra SAID TO SEND PHELBTROPONIN-I 2020-02-25 17:13:00 Test Item Value Reference Range Interpretation Comments TROPONIN-I (test code = TROPI) < 0.012 NG/ML 0.012-0.033 L RECOLLECTION NEEDED ON 02/25/20 AT 1538 BY Z.LAB.UKW0ADZZTD: NOT ENOUGH BLOODNOTIFIED PATIENT CARE STAFF: GIDEON MillanKassandra SAID TO SEND PHELBCOMPREHENSIVE METABOLIC [id number] 16:32:00 Test Item Value Reference Range Interpretation [...] anemia ) with specific assays on the RUNs 5600 of which Total Protein is one [...] RECOLLECTION NEEDED ON 02/25/20 AT 1538 BY Z.LAB.ILF3TSUMFP: NOT ENOUGH BLOODNOTIFIED PATIENT CARE STAFF: GIDEON Davis SAID TO SEND PHELBPHOSPHOROUS 2020-02-25 16:32:00 Test Item Value Reference Range Interpretation Comments PHOSPHOROUS (test code = PHOS) 4.3 MG/DL 2.5-4.5 N RECOLLECTION NEEDED ON 02/25/20 AT 1538 BY Z.LAB.ELA3AELCCW: NOT ENOUGH BLOODNOTIFIED PATIENT CARE STAFF: GIDEON Davis SAID TO SEND [id number] 16:32:00 Test Item Value Reference Range Interpretation Comments LIPASE (test code = LIP) 313 UNITS/L 23-300 H RECOLLECTION NEEDED ON 02/25/20 AT 1538 BY Z.LAB.GNV1PUJYBB: NOT ENOUGH BLOODNOTIFIED PATIENT CARE STAFF: GIDEON MillanKassandra SAID TO SEND PHELBMAGNESIUM 2020-02-25 16:32:00 Test Item Value Reference Range Interpretation Comments MAGNESIUM (test code = MAG) 1.7 MG/DL 1.6-2.3 N RECOLLECTION NEEDED ON 02/25/20 AT 1538 BY Z.LAB.VEA0XWKIHC: NOT ENOUGH BLOODNOTIFIED PATIENT CARE STAFF: GIDEON MillanKassandra SAID TO SEND PHELBTROPONIN-I 2020-02-25 16:32:00 Test Item Value Reference Range Interpretation Comments TROPONIN-I (test code = TROPI) NG/ML 0.0-0.045 RECOLLECTION NEEDED ON 02/25/20 AT 1538 BY Z.LAB.CFF1LLLWWG: NOT ENOUGH BLOODNOTIFIED PATIENT CARE STAFF: GIDEON MillanKassandra SAID TO SEND PHELBCOMPREHENSIVE METABOLIC [id number] 16:30:00 Test Item Value Reference Range Interpretation [...] RECOLLECTION NEEDED ON 02/25/20 AT 1538 BY JAMESON.PTJ1ELRDUG: NOT ENOUGH BLOODNOTIFIED PATIENT CARE STAFF: GIDEON Davis SAID TO SEND PHELBPHOSPHOROUS 2020-02-25 16:30:00 Test Item Value Reference Range Interpretation Comments PHOSPHOROUS (test code = PHOS) MG/DL 2.5-4.5 RECOLLECTION NEEDED ON 02/25/20 AT 1538 BY JMAESON.WQB1OXBFKM: NOT ENOUGH BLOODNOTIFIED PATIENT CARE STAFF: GIDEON Davis SAID TO SEND [id number] 16:30:00 Test Item Value Reference Range Interpretation Comments LIPASE (test code = LIP) UNITS/L 23-300 RECOLLECTION NEEDED ON 02/25/20 AT 1538 BY Z.LAB.EEJ9QJBLPC: NOT ENOUGH BLOODNOTIFIED PATIENT CARE STAFF: GIDEON MillanKassandra SAID TO SEND PHELBMAGNESIUM 2020-02-25 16:30:00 Test Item Value Reference Range Interpretation Comments MAGNESIUM (test code = MAG) MG/DL 1.6-2.3 RECOLLECTION NEEDED ON 02/25/20 AT 1538 BY Z.LAB.API3LODRUK: NOT ENOUGH BLOODNOTIFIED PATIENT CARE STAFF: GIDEON MillanKassandra SAID TO SEND PHELBTROPONIN-I 2020-02-25 16:30:00 Test Item Value Reference Range Interpretation Comments TROPONIN-I (test code = TROPI) NG/ML 0.0-0.045 RECOLLECTION NEEDED ON 02/25/20 AT 1538 BY Z.LAB.JRT5BMXPXB: NOT ENOUGH BLOODNOTIFIED PATIENT CARE STAFF: GIDEON MillanKassandra SAID TO SEND PHELB- XR CHEST 1V 2020-02-25 15:32:00 [facility] : 1940 Sex: F Patient Name: JORGE A HORTA Unit No: [id number] EXAMS: CPT CODE: [id number] XR CHEST 1V 68509 Location: T 18 CHEST X-RAY: Portable AP [...] DoyleRKassandraDAS6 Orig Print D/T: S: 02/25/2020 (1535) [facility] NAME: JORGE A HORTA [address] [place] PHYS: [place] [address] : 1940 AGE: 79 SEX: F LOC: VICENTE PHONE #: [phone] EXAM DATE: 02/25/2020 STATUS: REG ER FAX #: [phone] RADIOLOGY NO: PAGE 1 Signed ReportCBC W/O [id number] 15:20:00 Test Item Value Reference Range Interpretation [...] 0.00 K/mm3 0.0-0.1 N NRBC#) GLUCOSE BEDSIDE [id number] 11:55:00 Test Item Value Reference Range Interpretation Comments GLUCOSE BEDSIDE TESTING (test code 132 MG/DL 60-99 H = GLUBED) GLUCOSE BEDSIDE [id number] 11:04:00 Test Item Value Reference Range Interpretation Comments GLUCOSE BEDSIDE TESTING (test code = 74 MG/DL 60-99 N GLUBED) GLUCOSE BEDSIDE [id number] 07:38:00 Test Item Value Reference Range Interpretation Comments GLUCOSE BEDSIDE TESTING (test code 110 MG/DL 60-99 H = GLUBED) BASIC METABOLIC [id number] 06:32:00 Test Item Value Reference Range Interpretation [...] 8.1 MG/DL 8.4-10.2 L CA) BASIC METABOLIC [id number] 06:31:00 Test Item Value Reference Range Interpretation [...] code = MG/DL 8.7-9.7 CA) BASIC METABOLIC [id number] 06:29:00 Test Item Value Reference Range Interpretation [...] code = CA) MG/DL 8.7-9.7 BASIC METABOLIC [id number] 06:28:00 Test Item Value Reference Range Interpretation [...] (test code = CA) MG/DL 8.7-9.7 PROTHROMBIN [id number] 06:17:00 Test Item Value Reference Range Interpretation [...] eric embolism. 3.0 - 4.5 CBC W/AUTO [id number] 06:12:00 Test Item Value Reference Range Interpretation [...] N NRBC#) - CT ABD PELVIS W/O [id number] 19:52:00 [facility] : 1940 Sex: F Patient Name: JORGE A HORTA Unit No: [id number] EXAMS: CPT CODE: [id number] CT ABD PELVIS W/O CONT 66217 EXAM: CT abdomen and pelvis INDICATION: Post-op bleeding COMPARISON: December 30, 2019 LOCATION: [facility] CT scan of the abdomen and [...] catheter in the pelvis is again identified. 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 [id number] Reported and signed by: Loc Medina MD CC: Nicolas Wiley MD; Ramu Sutherland MD; Rashid Son MD Technologist: Jose Victor RT (R) (CT) CTDI: DLP: Trnscrpt: 01/02/2020 (1951) DoyleR.PMT [facility] NAME: JORGE A HORTA [place] PHYS: Nicolas Gutierrez MD [place] [id number] : 1940 AGE: 79SEX: F LOC: Z.SI06 A PHONE #: [phone] EXAM DATE: 01/02/2020 STATUS: ADM IN FAX #: [phone] RAD #: D/C DT PAGE 2 Signed Report Patient Name: JORGE A HORTA Unit No: [id number] EXAMS: CPT CODE: [id number] CT ABD PELVIS W/O CONT 33580 <Continued> Orig Print D/T: S: 01/02/2020 (1954) [facility] NAME: JORGE A HORTA [place] PHYS: Nicolas Gutierrez MD [place] [id number] : 1940 AGE: 79 SEX: F LOC: Z.SI06 A PHONE #: [phone] EXAM DATE: 01/02/2020 STATUS: ADM IN FAX #: [phone] RAD #: D/C DT PAGE 3 Signed ReportHGB [id number] 16:29:00 Test Item Value Reference Range Interpretation Comments HEMOGLOBIN (test code = HGB) 8.2 G/DL 11.2-14.9 L HEMATOCRIT (test code = HCT) 26.0 % 33.2-43.5 L GLUCOSE BEDSIDE [id number] 16:27:00 Test Item Value Reference Range Interpretation Comments GLUCOSE BEDSIDE TESTING (test code = 59 MG/DL 60-99 L GLUBED) GLUCOSE BEDSIDE [id number] 12:00:00 Test Item Value Reference Range Interpretation Comments GLUCOSE BEDSIDE TESTING (test code 101 MG/DL 60-99 H = GLUBED) HGB [id number] 09:00:00 Test Item Value Reference Range Interpretation Comments HEMOGLOBIN (test code = 6.4 G/DL 11.2-14.9 LL CALL ED TO SUZANNE Landis HGB) READBACK ON AT 0900 BY Ilan Loo HEMATOCRIT (test code = 20.5 % 33.2-43.5 L HCT) CBC W/AUTO [id number] 07:51:00 Test Item Value Reference Range Interpretation [...] K/mm3 0.0-0.1 N code = NRBC#) DIFFERENTIAL [id number] 07:51:00 Test Item Value Reference Range Interpretation Comments RBC MORPHOLOGY REQUIRED (test code NORMAL = RBCM) ANISOCYTOSIS (test code = ANISO) SLIGHT NONE PLATELET ESTIMATE (test code = INCREASED ADEQUATE PLTEST) PLATELET MORPHOLOGY (test code = NORMAL NORMAL PLTMORPH) BASIC METABOLIC [id number] 06:22:00 Test Item Value Reference Range Interpretation [...] = 8.3 MG/DL 8.4-10.2 L CA) PROTHROMBIN [id number] 06:22:00 Test Item Value Reference Range Interpretation [...] eric embolism. 3.0 - 4.5 Comments to Contract Preparer: .BASIC METABOLIC [id number] 06:17:00 Test Item Value Reference Range Interpretation [...] code = CA) MG/DL 8.7-9.7 CBC W/AUTO [id number] 06:16:00 Test Item Value Reference Range Interpretation [...] K/mm3 0.0-0.1 N code = NRBC#) DIFFERENTIAL [id number] 06:16:00 Test Item Value Reference Range Interpretation Comments RBC MORPHOLOGY REQUIRED (test code = RBCM) PLATELET ESTIMATE (test code = PLTEST) ADEQUATE PLATELET MORPHOLOGY (test code = NORMAL PLTMORPH) CBC W/AUTO [id number] 06:16:00 Test Item Value Reference Range Interpretation [...] K/mm3 0.0-0.1 N code = NRBC#) DIFFERENTIAL [id number] 06:16:00 Test Item Value Reference Range Interpretation Comments RBC MORPHOLOGY REQUIRED (test code = RBCM) PLATELET ESTIMATE (test code = PLTEST) ADEQUATE PLATELET MORPHOLOGY (test code = NORMAL PLTMORPH) GLUCOSE BEDSIDE [id number] 21:30:00 Test Item Value Reference Range Interpretation Comments GLUCOSE BEDSIDE TESTING (test code = 87 MG/DL 60-99 N GLUBED) ARTERIAL BLOOD [id number] 17:52:00 Test Item Value Reference Range Interpretation [...] FIO2 (test code = COHBGFFIO2) 30 % PaO2/[id number] 17:52:00 Test Item Value Reference Range Interpretation Comments PaO2/FiO2 (test code = WAK3DEZ4) 279.66 mm/Hg GLUCOSE BEDSIDE [id number] 16:23:00 Test Item Value Reference Range Interpretation Comments GLUCOSE BEDSIDE TESTING (test code 108 MG/DL 60-99 H = GLUBED) PROTHROMBIN [id number] 14:43:00 Test Item Value Reference Range Interpretation [...] 01/01/20 AT 1405 BY Chano [employer] to Contract Preparer: ,GLUCOSE BEDSIDE TESTING 2020-01-01 12:19:00 Test Item Value Reference Range Interpretation Comments GLUCOSE BEDSIDE TESTING (test code 116 MG/DL 60-99 H = GLUBED) GLUCOSE BEDSIDE [id number] 07:47:00 Test Item Value Reference Range Interpretation Comments GLUCOSE BEDSIDE TESTING (test code 109 MG/DL 60-99 H = GLUBED) BASIC METABOLIC [id number] 05:06:00 Test Item Value Reference Range Interpretation [...] 8.5 MG/DL 8.4-10.2 N CA) BASIC METABOLIC [id number] 04:58:00 Test Item Value Reference Range Interpretation [...] code = CA) MG/DL 8.7-9.7 GLUCOSE BEDSIDE [id number] 20:12:00 Test Item Value Reference Range Interpretation Comments GLUCOSE BEDSIDE TESTING (test code 119 MG/DL 60-99 H = GLUBED) GLUCOSE BEDSIDE [id number] 15:55:00 Test Item Value Reference Range Interpretation Comments GLUCOSE BEDSIDE TESTING (test code 134 MG/DL 60-99 H = GLUBED) CBC W/O [id number] 11:34:00 Test Item Value Reference Range Interpretation [...] K/mm3 0.0-0.1 N code = NRBC#) DIFFERENTIAL [id number] 11:34:00 Test Item Value Reference Range Interpretation Comments RBC MORPHOLOGY REQUIRED (test code NORMAL = RBCM) POLYCHROMASIA (test code = POLC) FEW NONE PLATELET ESTIMATE (test code = INCREASED ADEQUATE PLTEST) PLATELET MORPHOLOGY (test code = NORMAL NORMAL PLTMORPH) WBC [id number] 11:34:00 Test Item Value Reference Range Interpretation [...] MON) 4.9 % 0-11 N BASIC METABOLIC [id number] 11:28:00 Test Item Value Reference Range Interpretation [...] code = 8.7 MG/DL 8.4-10.2 N CA) [id number] 11:28:00 Test Item Value Reference Range Interpretation Comments VANCOMYCIN (test code = VANCO) 14.3 mcg/ML 5.0-26.0 CBC W/O [id number] 11:09:00 Test Item Value Reference Range Interpretation [...] K/mm3 0.0-0.1 N code = NRBC#) DIFFERENTIAL [id number] 11:09:00 Test Item Value Reference Range Interpretation Comments RBC MORPHOLOGY REQUIRED (test code = RBCM) PLATELET ESTIMATE (test code = PLTEST) ADEQUATE PLATELET MORPHOLOGY (test code = NORMAL PLTMORPH) WBC [id number] 11:09:00 Test Item Value Reference Range Interpretation Comments TOTAL CELLS COUNTED (test code = TCC) #CELLS SEGMENTED NEUTROPHILS (test code = % 36.2-73.8 SEG) LYMPHOCYTE (test code = LYMPH) % 12.9-45.1 MONOCYTE (test code = MON) % 0-11 CBC W/AUTO [id number] 11:09:00 Test Item Value Reference Range Interpretation [...] K/mm3 0.0-0.1 N code = NRBC#) WBC [id number] 11:09:00 Test Item Value Reference Range Interpretation Comments RBC MORPHOLOGY REQUIRED (test code = RBCM) TOTAL CELLS COUNTED (test code = TCC) #CELLS SEGMENTED NEUTROPHILS (test code = % 36.2-73.8 SEG) LYMPHOCYTE (test code = LYMPH) % 12.9-45.1 MONOCYTE (test code = MON) % 0-11 PLATELET ESTIMATE (test code = ADEQUATE PLTEST) PLATELET MORPHOLOGY (test code = NORMAL PLTMORPH) ARTERIAL BLOOD [id number] 11:00:00 Test Item Value Reference Range Interpretation [...] FIO2 (test code = 21 % COHBGFFIO2) PaO2/[id number] 11:00:00 Test Item Value Reference Range Interpretation Comments PaO2/FiO2 (test code = CCS8KPU5) mm/Hg ARTERIAL BLOOD [id number] 11:00:00 Test Item Value Reference Range Interpretation [...] FIO2 (test code = 21 % COHBGFFIO2) PaO2/[id number] 11:00:00 Test Item Value Reference Range Interpretation Comments PaO2/FiO2 (test code = BJH1JTG0) 297.61 mm/Hg GLUCOSE BEDSIDE [id number] 10:52:00 Test Item Value Reference Range Interpretation Comments GLUCOSE BEDSIDE TESTING (test code 167 MG/DL 60-99 H = GLUBED) GLUCOSE BEDSIDE [id number] 07:30:00 Test Item Value Reference Range Interpretation Comments GLUCOSE BEDSIDE TESTING (test code 148 MG/DL 60-99 H = GLUBED) GLUCOSE BEDSIDE [id number] 20:36:00 Test Item Value Reference Range Interpretation Comments GLUCOSE BEDSIDE TESTING (test code 139 MG/DL 60-99 H = GLUBED) GLUCOSE BEDSIDE [id number] 16:00:00 Test Item Value Reference Range Interpretation Comments GLUCOSE BEDSIDE TESTING (test code 126 MG/DL 60-99 H = GLUBED) [id number] 12:30:00 Test Item Value Reference Range Interpretation Comments VANCOMYCIN (test code = VANCO) 8.3 mcg/ML 5.0-26.0 N GLUCOSE BEDSIDE [id number] 11:19:00 Test Item Value Reference Range Interpretation Comments GLUCOSE BEDSIDE TESTING (test code 118 MG/DL 60-99 H = GLUBED) GLUCOSE BEDSIDE [id number] 07:49:00 Test Item Value Reference Range Interpretation Comments GLUCOSE BEDSIDE TESTING (test code 106 MG/DL 60-99 H = GLUBED) - CT ABD PELVIS W/[id number] 07:42:00 [facility] : 1940 Sex: F Patient Name: JORGE A HORTA Unit No: [id number] EXAMS: CPT CODE: [id number] CT ABD PELVIS W/CONT 47710 HISTORY: Persistent WBC EXAM TYPE: CT abdomen [...] No aneurysmal dilatation. Lymph nodes: No adenopathy. [facility] NAME: JORGE A HORTA [address] [place] PHYS: TSARodolfo Payne MD [address] [address] : 1940 AGE: 79 SEX: F LOC: Z.SI06 A PHONE #: [phone] EXAM DATE: 12/30/2019 STATUS: ADM IN FAX #: [phone] RAD #: D/C DT PAGE 1 Signed Report (CONTINUED) Patient Name: JORGE A HORTA Unit No: [id number] EXAMS: CPT CODE: [id number] CT ABD PELVIS W/CONT 50019 <Continued> Peritoneum/retroperitoneum: Small volume abdominal ascites, new [...] Reported and signed by: Lizzy Ryan MD [facility] NAME: JORGE A HORTA [address] [place] [place] PHYS: [id number] Rodolfo De La Torre MD [address] [place] [address] : 1940 AGE: 79 SEX: F LOC: Z.SI06 A PHONE #: [phone] EXAM DATE: 12/30/2019 STATUS: ADM IN FAX #: [phone] RAD #: D/C DT PAGE 2 Signed Report (CONTINUED) Patient Name: JORGE A HORTA Unit No: [id number] EXAMS: CPT CODE: [id number] CT ABD PELVIS W/CONT 56229 <Continued> CC: Tevin Samuels; Ramu Sutherland MD; Rodolfo Dillon MD Technologist: Cole Castano CTDI: DLP: Trnscrpt: 12/30/2019 (0742) [email or web address] [facility] NAME: JORGE A HORTAmond PHYS: [place] [address] : 1940 AGE: 79 SEX: F LOC: Z.SI06 A PHONE #: [phone] EXAM DATE: 12/30/2019 STATUS: ADM IN FAX #: [phone] RAD #: D/C DT PAGE 3 Signed Report Patient Name: JORGE A HORTA Unit No: [id number] EXAMS: CPT CODE: [id number] CT ABD PELVIS W/CONT 63403 <Continued> Orig Print D/T: S: 12/30/2019 (0745) [facility] NAME: JORGE A HORTA [address] PHYS: [place] [address] : 1940 AGE: 79 SEX: F LOC: Z.SI06 A PHONE #: [phone] EXAM DATE: 12/30/2019 STATUS: ADM IN FAX #: [phone] RAD #: D/C DT PAGE 4 Signed ReportBASIC METABOLIC [id number] 05:39:00 Test Item Value Reference Range Interpretation [...] 8.1 MG/DL 8.4-10.2 L CA) BASIC METABOLIC [id number] 05:25:00 Test Item Value Reference Range Interpretation [...] code = MG/DL 8.7-9.7 CA) BASIC METABOLIC [id number] 05:23:00 Test Item Value Reference Range Interpretation [...] code = CA) MG/DL 8.7-9.7 BASIC METABOLIC [id number] 05:22:00 Test Item Value Reference Range Interpretation [...] code = CA) MG/DL 8.7-9.7 CBC W/AUTO [id number] 05:17:00 Test Item Value Reference Range Interpretation [...] = 0.00 K/mm3 0.0-0.1 N NRBC#) DIFFERENTIAL [id number] 05:17:00 Test Item Value Reference Range Interpretation Comments RBC MORPHOLOGY REQUIRED (test code = RBCM) PLATELET ESTIMATE (test code = PLTEST) ADEQUATE PLATELET MORPHOLOGY (test code = NORMAL PLTMORPH) CBC W/AUTO [id number] 05:17:00 Test Item Value Reference Range Interpretation [...] = 0.00 K/mm3 0.0-0.1 N NRBC#) DIFFERENTIAL [id number] 05:17:00 Test Item Value Reference Range Interpretation Comments RBC MORPHOLOGY REQUIRED (test code = RBCM) PLATELET ESTIMATE (test code = PLTEST) ADEQUATE PLATELET MORPHOLOGY (test code = NORMAL PLTMORPH) ARTERIAL BLOOD [id number] 03:21:00 Test Item Value Reference Range Interpretation [...] (test code 2.8 mmol/L -3.0-3.0 N = TSEVEN) ABG O2 SATURATION (test 97.5 % 95.0-100.0 [...] FIO2 (test code = 32 % COHBGFFIO2) PaO2/[id number] 03:21:00 Test Item Value Reference Range Interpretation Comments PaO2/FiO2 (test code = GKS5JND0) mm/Hg ARTERIAL BLOOD [id number] 03:21:00 Test Item Value Reference Range Interpretation [...] FIO2 (test code = 32 % COHBGFFIO2) PaO2/[id number] 03:21:00 Test Item Value Reference Range Interpretation Comments PaO2/FiO2 (test code = THA2YCT8) 295.93 mm/Hg GLUCOSE BEDSIDE [id number] 20:10:00 Test Item Value Reference Range Interpretation Comments GLUCOSE BEDSIDE TESTING (test code = 80 MG/DL 60-99 N GLUBED) GLUCOSE BEDSIDE [id number] 17:00:00 Test Item Value Reference Range Interpretation Comments GLUCOSE BEDSIDE TESTING (test code = 99 MG/DL 60-99 N GLUBED) ARTERIAL BLOOD [id number] 16:38:00 Test Item Value Reference Range Interpretation [...] FIO2 (test code = COHBGFFIO2) 36 % PaO2/[id number] 16:38:00 Test Item Value Reference Range Interpretation Comments PaO2/FiO2 (test code = QBR2QRQ9) mm/Hg ARTERIAL BLOOD [id number] 16:38:00 Test Item Value Reference Range Interpretation [...] FIO2 (test code = COHBGFFIO2) 36 % PaO2/[id number] 16:38:00 Test Item Value Reference Range Interpretation Comments PaO2/FiO2 (test code = VOE3WDO2) 543.05 mm/Hg ARTERIAL BLOOD [id number] 11:48:00 Test Item Value Reference Range Interpretation [...] FIO2 (test code = COHBGFFIO2) 50 % PaO2/[id number] 11:48:00 Test Item Value Reference Range Interpretation Comments PaO2/FiO2 (test code = FTZ7NDB7) mm/Hg ARTERIAL BLOOD [id number] 11:48:00 Test Item Value Reference Range Interpretation [...] FIO2 (test code = COHBGFFIO2) 50 % PaO2/[id number] 11:48:00 Test Item Value Reference Range Interpretation Comments PaO2/FiO2 (test code = DMV7HHI8) 345.40 mm/Hg GLUCOSE BEDSIDE [id number] 11:02:00 Test Item Value Reference Range Interpretation Comments GLUCOSE BEDSIDE TESTING (test code 131 MG/DL 60-99 H = GLUBED) ARTERIAL BLOOD [id number] 10:15:00 Test Item Value Reference Range Interpretation [...] FIO2 (test code = COHBGFFIO2) 40 % PaO2/[id number] 10:15:00 Test Item Value Reference Range Interpretation Comments PaO2/FiO2 (test code = MIG6DUG1) mm/Hg ARTERIAL BLOOD [id number] 10:15:00 Test Item Value Reference Range Interpretation [...] FIO2 (test code = COHBGFFIO2) 40 % PaO2/[id number] 10:15:00 Test Item Value Reference Range Interpretation Comments PaO2/FiO2 (test code = BNV1NOI5) 270.50 mm/Hg GLUCOSE BEDSIDE [id number] 07:25:00 Test Item Value Reference Range Interpretation Comments GLUCOSE BEDSIDE TESTING (test code 103 MG/DL 60-99 H = GLUBED) CBC W/AUTO [id number] 04:50:00 Test Item Value Reference Range Interpretation [...] = 0.02 K/mm3 0.0-0.1 N NRBC#) DIFFERENTIAL [id number] 04:50:00 Test Item Value Reference Range Interpretation Comments RBC MORPHOLOGY REQUIRED (test code = RBCM) PLATELET ESTIMATE (test code = PLTEST) ADEQUATE PLATELET MORPHOLOGY (test code = NORMAL PLTMORPH) CBC W/AUTO [id number] 04:50:00 Test Item Value Reference Range Interpretation [...] = 0.02 K/mm3 0.0-0.1 N NRBC#) DIFFERENTIAL [id number] 04:50:00 Test Item Value Reference Range Interpretation Comments RBC MORPHOLOGY REQUIRED (test code = RBCM) PLATELET ESTIMATE (test code = PLTEST) ADEQUATE PLATELET MORPHOLOGY (test code = NORMAL PLTMORPH) GLUCOSE BEDSIDE [id number] 20:04:00 Test Item Value Reference Range Interpretation Comments GLUCOSE BEDSIDE TESTING (test code 112 MG/DL 60-99 H = GLUBED) ARTERIAL BLOOD [id number] 17:50:00 Test Item Value Reference Range Interpretation [...] FIO2 (test code = COHBGFFIO2) 40 % PaO2/[id number] 17:50:00 Test Item Value Reference Range Interpretation Comments PaO2/FiO2 (test code = FKM8TBH4) mm/Hg ARTERIAL BLOOD [id number] 17:50:00 Test Item Value Reference Range Interpretation [...] FIO2 (test code = COHBGFFIO2) 40 % PaO2/[id number] 17:50:00 Test Item Value Reference Range Interpretation Comments PaO2/FiO2 (test code = YFR5VTL3) 283.25 mm/Hg GLUCOSE BEDSIDE [id number] 16:16:00 Test Item Value Reference Range Interpretation Comments GLUCOSE BEDSIDE TESTING (test code 102 MG/DL 60-99 H = GLUBED) CBC W/O [id number] 11:57:00 Test Item Value Reference Range Interpretation [...] K/mm3 0.0-0.1 N code = NRBC#) DIFFERENTIAL [id number] 11:57:00 Test Item Value Reference Range Interpretation Comments RBC MORPHOLOGY REQUIRED (test code = NORMAL RBCM) ANISOCYTOSIS (test code = ANISO) SLIGHT NONE MACROCYTOSIS (test code = MACR) FEW NONE PLATELET ESTIMATE (test code = ADEQUATE ADEQUATE PLTEST) PLATELET MORPHOLOGY (test code = NORMAL NORMAL PLTMORPH) WBC [id number] 11:57:00 Test Item Value Reference Range Interpretation [...] code = GERTRUDIS) 0.8 % 0-0 H [id number] 11:46:00 Test Item Value Reference Range Interpretation Comments VANCOMYCIN (test code = VANCO) 13.8 mcg/ML 5.0-26.0 N UNABLE TO DRAW BLOOD, REASON: CBNNOTIFIED PATIENT CARE STAFF: MOSHE 12/28/19 AT 1048 BY Hannah Busby [facility] B[facility] [id number] 11:19:00 Test Item Value Reference Range Interpretation [...] FIO2 (test code = COHBGFFIO2) 40 % PaO2/[id number] 11:19:00 Test Item Value Reference Range Interpretation Comments PaO2/FiO2 (test code = OQC2ZRT0) mm/Hg ARTERIAL BLOOD [id number] 11:19:00 Test Item Value Reference Range Interpretation [...] FIO2 (test code = COHBGFFIO2) 40 % PaO2/[id number] 11:19:00 Test Item Value Reference Range Interpretation Comments PaO2/FiO2 (test code = UOW6HMV9) 279.25 mm/Hg GLUCOSE BEDSIDE [id number] 10:39:00 Test Item Value Reference Range Interpretation Comments GLUCOSE BEDSIDE TESTING (test code 153 MG/DL 60-99 H = GLUBED) ARTERIAL BLOOD [id number] 10:05:00 Test Item Value Reference Range Interpretation [...] FIO2 (test code = COHBGFFIO2) 30 % PaO2/[id number] 10:05:00 Test Item Value Reference Range Interpretation Comments PaO2/FiO2 (test code = KYX8YJD7) 279.66 mm/Hg ARTERIAL BLOOD [id number] 10:04:00 Test Item Value Reference Range Interpretation [...] FIO2 (test code = COHBGFFIO2) 30 % PaO2/[id number] 10:04:00 Test Item Value Reference Range Interpretation Comments PaO2/FiO2 (test code = HZM1TYF6) mm/Hg CBC W/O [id number] 08:07:00 Test Item Value Reference Range Interpretation [...] K/mm3 0.0-0.1 N code = NRBC#) DIFFERENTIAL [id number] 08:07:00 Test Item Value Reference Range Interpretation Comments RBC MORPHOLOGY REQUIRED (test code = RBCM) PLATELET ESTIMATE (test code = PLTEST) ADEQUATE PLATELET MORPHOLOGY (test code = NORMAL PLTMORPH) WBC [id number] 08:07:00 Test Item Value Reference Range Interpretation Comments TOTAL CELLS COUNTED (test code = TCC) #CELLS SEGMENTED NEUTROPHILS (test code = % 36.2-73.8 SEG) LYMPHOCYTE (test code = LYMPH) % 12.9-45.1 MONOCYTE (test code = MON) % 0-11 CBC W/AUTO [id number] 08:07:00 Test Item Value Reference Range Interpretation [...] K/mm3 0.0-0.1 N code = NRBC#) WBC [id number] 08:07:00 Test Item Value Reference Range Interpretation Comments RBC MORPHOLOGY REQUIRED (test code = RBCM) TOTAL CELLS COUNTED (test code = TCC) #CELLS SEGMENTED NEUTROPHILS (test code = % 36.2-73.8 SEG) LYMPHOCYTE (test code = LYMPH) % 12.9-45.1 MONOCYTE (test code = MON) % 0-11 PLATELET ESTIMATE (test code = ADEQUATE PLTEST) PLATELET MORPHOLOGY (test code = NORMAL PLTMORPH) GLUCOSE BEDSIDE [id number] 07:48:00 Test Item Value Reference Range Interpretation Comments GLUCOSE BEDSIDE TESTING (test code 122 MG/DL 60-99 H = GLUBED) GLUCOSE BEDSIDE [id number] 05:14:00 Test Item Value Reference Range Interpretation Comments GLUCOSE BEDSIDE TESTING (test code 131 MG/DL 60-99 H = GLUBED) GLUCOSE BEDSIDE [id number] 05:14:00 Test Item Value Reference Range Interpretation Comments GLUCOSE BEDSIDE TESTING (test code 115 MG/DL 60-99 H = GLUBED) GLUCOSE BEDSIDE [id number] 05:14:00 Test Item Value Reference Range Interpretation Comments GLUCOSE BEDSIDE TESTING (test code 114 MG/DL 60-99 H = GLUBED) GLUCOSE BEDSIDE [id number] 05:12:00 Test Item Value Reference Range Interpretation Comments GLUCOSE BEDSIDE TESTING (test code 156 MG/DL 60-99 H = GLUBED) GLUCOSE BEDSIDE [id number] 05:12:00 Test Item Value Reference Range Interpretation Comments GLUCOSE BEDSIDE TESTING (test code 161 MG/DL 60-99 H = GLUBED) GLUCOSE BEDSIDE [id number] 05:12:00 Test Item Value Reference Range Interpretation Comments GLUCOSE BEDSIDE TESTING (test code = 84 MG/DL 60-99 N GLUBED) GLUCOSE BEDSIDE [id number] 05:12:00 Test Item Value Reference Range Interpretation Comments GLUCOSE BEDSIDE TESTING (test code 103 MG/DL 60-99 H = GLUBED) GLUCOSE BEDSIDE [id number] 05:12:00 Test Item Value Reference Range Interpretation Comments GLUCOSE BEDSIDE TESTING (test code 175 MG/DL 60-99 H = GLUBED) GLUCOSE BEDSIDE [id number] 05:11:00 Test Item Value Reference Range Interpretation Comments GLUCOSE BEDSIDE TESTING (test code 131 MG/DL 60-99 H = GLUBED) COLON SEGMENT RESEC. NOT [id number] 22:42:00 Test Item Value Reference Range Interpretation Comments COLON SEGMENT RESEC. NOT TUMOR (test code = COLONR) RUN DATE: 12/27/19 [place] [facility] PAGE 1 RUN TIME: 2241 Specimen Inquiry RUN USER: INTERFACE PATIENT: JORGE A HORTA LOC: JEF U #: [id number] AGE/SX: 79/F ROOM: [facility] RE11/26/19REG DR: Tevin Samuels MD : 38 BED: A DIS: STATUS: ADM IN TLOC: SPEC #: [id number]:COCHRAN:[id number] RECD: 12/24/19 STATUS: DEVORA ALLEN #: [id number] KEENAN: 12/22/[address] [facility] [address]: Rashid Son MD ENTERED: 12/24/19 SP TYPE: COLONR OTHR DR: Self Referred Sarah Ovalles DO R2 Joe Higgins MD, Hansaa MD R1 Odalys Juárez MD R1 Adalberto,Donna Sutherland,Ramu Jordan,Raji CORREIA R1 Shell,Jose Alfredo Solis,Andrei Conner,Reuben Wilder,Jason Joseph,Juan Dixon,Ezequiel Smith,Georgina Claudio,Georgette CORREIAORDERED: SURG PATH LVL 5 CODES: E43220 V19171 - SMALL INTESTINE ISCHEMIA, NOS V56783 Y68939 - SMALL INTESTINE PERFORATION, NO R14938 G99273 - SMALL INTESTINE NECROSIS, NOS W65845 - COLON, NOS X82834 [id number] - COLON, NOS EXCISION, NOS B45702 - TRANSVERSE COLO ZV1870 - LYMPH NODE, NOS COPIES TO: Self Referred Sarah Ovalles DO R2 [address] [place] [address] Joe Higgins MD [address] [facility] [address] [place] [address] Home Bryant MD R1 [address] [place] [address] CONTINUED ON NEXT PAGE RUN DATE: 12/27/19 [place] - [facility] PAGE 2 RUN TIME: 2 Specimen Inquiry RUN USER: INTERFACE SPEC #: 20:COCHRAN:[id number] PATIENT: JORGE A HORTA #[id number] (Continued) --- COPIES TO: (Continued) Odalys Juárez MD [address] [address] [place] [address] [place] [address] [facility] [address] [place] [address] Ramu Sutherland MD [address] [place] [place], [place] [address] Raji Jordan MD R1 [address] [place] [address] [place] [address] [facility] [place] [id number] Rashid Son MD [address] [facility] [place], [place] [id number] @[employer] Andrei Solis MD [address] [place] [address] [place] [address] [facility] [address] [place] [id number] Jason Wilder MD [address] [facility] [address] [place] [address] [place] [address] [place] [address] CONTINUED ON NEXT PAGE RUN DATE: 12/27/19 [facility] - LAB PAGE 3 RUN TIME: 2241 Specimen Inquiry RUN USER: INTERFACE SPEC #: [id number]:COCHRAN:[id number] PATIENT: JORGE A HORTA #[id number] (Continued) --- COPIES TO: (Continued) Ezequiel Dixon [address] [place] [address] Georgina Smith MD [facility] [address] [place] [address] Georgette Claudio MD [address] [place] [address] PROCEDURES: SURG PATH LVL 5 (12/24/19-1050) TISSUES: A. COLON, NOS - RIGHT AND TRANSVERSE COLON CPT CODES CPT CODE(S): 42002 , , , , , , FINAL [...] CONTINUED ON NEXT PAGE RUN DATE: 12/27/19 [facility] PAGE 4 RUN TIME: 2241 Specimen Inquiry RUN USER: INTERFACE SPEC #: 20:COCHRAN:[id number] PATIENT: JORGE A HORTA #[id number] (Continued) --- GROSS DESCRIPTION (Continued) serosal surface. [...] /elizabeth Signed SIGNATURE ON FILE SilvestrelucaXander 12/27/19 1576 END OF REPORT ARTERIAL BLOOD [id number] 22:17:00 Test Item Value Reference Range Interpretation [...] FIO2 (test code = COHBGFFIO2) 30 % PaO2/[id number] 22:17:00 Test Item Value Reference Range Interpretation Comments PaO2/FiO2 (test code = ZGJ8SAZ9) mm/Hg ARTERIAL BLOOD [id number] 22:17:00 Test Item Value Reference Range Interpretation [...] FIO2 (test code = COHBGFFIO2) 30 % PaO2/[id number] 22:17:00 Test Item Value Reference Range Interpretation Comments PaO2/FiO2 (test code = RNV0CCP5) 251.66 mm/Hg ARTERIAL BLOOD [id number] 16:54:00 Test Item Value Reference Range Interpretation [...] FIO2 (test code = COHBGFFIO2) 30 % PaO2/[id number] 16:54:00 Test Item Value Reference Range Interpretation Comments PaO2/FiO2 (test code = PGQ7VPY3) mm/Hg ARTERIAL BLOOD [id number] 16:54:00 Test Item Value Reference Range Interpretation [...] FIO2 (test code = COHBGFFIO2) 30 % PaO2/[id number] 16:54:00 Test Item Value Reference Range Interpretation Comments PaO2/FiO2 (test code = FUJ3ZXE7) 310.33 mm/Hg ARTERIAL BLOOD [id number] 14:42:00 Test Item Value Reference Range Interpretation [...] FIO2 (test code = COHBGFFIO2) 30 % PaO2/[id number] 14:42:00 Test Item Value Reference Range Interpretation Comments PaO2/FiO2 (test code = RLT2ILZ5) mm/Hg ARTERIAL BLOOD [id number] 14:42:00 Test Item Value Reference Range Interpretation [...] FIO2 (test code = COHBGFFIO2) 30 % PaO2/[id number] 14:42:00 Test Item Value Reference Range Interpretation Comments PaO2/FiO2 (test code = QRL2GAF7) 270.66 mm/Hg CBC W/O [id number] 14:26:00 Test Item Value Reference Range Interpretation [...] code = NRBC#) GAVE TUBES TO JUVENCBNDIFFERENTIAL [id number] 14:26:00 Test Item Value Reference Range Interpretation Comments RBC MORPHOLOGY REQUIRED (test code = NORMAL RBCM) ANISOCYTOSIS (test code = ANISO) SLIGHT NONE PLATELET ESTIMATE (test code = ADEQUATE ADEQUATE PLTEST) PLATELET MORPHOLOGY (test code = NORMAL NORMAL PLTMORPH) GAVE TUBES TO JUVENCBNWBC [id number] 14:26:00 Test Item Value Reference Range Interpretation [...] 0-0 H GAVE TUBES TO JUVENCBNARTERIAL BLOOD [id number] 14:12:00 Test Item Value Reference Range Interpretation [...] FIO2 (test code = 30 % COHBGFFIO2) PaO2/[id number] 14:12:00 Test Item Value Reference Range Interpretation Comments PaO2/FiO2 (test code = RUM8TBM0) mm/Hg ARTERIAL BLOOD [id number] 14:12:00 Test Item Value Reference Range Interpretation [...] FIO2 (test code = 30 % COHBGFFIO2) PaO2/[id number] 14:12:00 Test Item Value Reference Range Interpretation Comments PaO2/FiO2 (test code = VTF5EWY5) 226.66 mm/Hg GLUCOSE BEDSIDE [id number] 13:23:00 Test Item Value Reference Range Interpretation Comments GLUCOSE BEDSIDE TESTING (test code 122 MG/DL 60-99 H = GLUBED) ARTERIAL BLOOD [id number] 12:31:00 Test Item Value Reference Range Interpretation [...] FIO2 (test code = 24 % COHBGFFIO2) PaO2/[id number] 12:31:00 Test Item Value Reference Range Interpretation Comments PaO2/FiO2 (test code = DID6RVQ7) mm/Hg ARTERIAL BLOOD [id number] 12:31:00 Test Item Value Reference Range Interpretation [...] FIO2 (test code = 24 % COHBGFFIO2) PaO2/[id number] 12:31:00 Test Item Value Reference Range Interpretation Comments PaO2/FiO2 (test code = KIB1JWZ0) 307.50 mm/Hg GLUCOSE BEDSIDE [id number] 12:00:00 Test Item Value Reference Range Interpretation Comments GLUCOSE BEDSIDE TESTING (test code 128 MG/DL 60-99 H = GLUBED) ARTERIAL BLOOD [id number] 10:42:00 Test Item Value Reference Range Interpretation [...] FIO2 (test code = COHBGFFIO2) 24 % PaO2/[id number] 10:42:00 Test Item Value Reference Range Interpretation Comments PaO2/FiO2 (test code = LNT1ZTT4) mm/Hg ARTERIAL BLOOD [id number] 10:42:00 Test Item Value Reference Range Interpretation [...] FIO2 (test code = COHBGFFIO2) 24 % PaO2/[id number] 10:42:00 Test Item Value Reference Range Interpretation Comments PaO2/FiO2 (test code = EPI2WCZ8) 347.91 mm/Hg ARTERIAL BLOOD [id number] 09:30:00 Test Item Value Reference Range Interpretation [...] FIO2 (test code = COHBGFFIO2) 24 % PaO2/[id number] 09:30:00 Test Item Value Reference Range Interpretation Comments PaO2/FiO2 (test code = [id number]) mm/Hg ARTERIAL BLOOD [id number] 09:30:00 Test Item Value Reference Range Interpretation [...] FIO2 (test code = COHBGFFIO2) 24 % PaO2/[id number] 09:30:00 Test Item Value Reference Range Interpretation Comments PaO2/FiO2 (test code = [id number]) 315.41 mm/Hg BASIC METABOLIC [id number] 07:27:00 Test Item Value Reference Range Interpretation [...] MG/DL 8.4-10.2 N CA) GAVE TUBES TO [id number] 07:27:00 Test Item Value Reference Range Interpretation Comments PHOSPHOROUS (test code = PHOS) 4.2 MG/DL 2.5-4.5 N GAVE TUBES TO [id number] 07:27:00 Test Item Value Reference Range Interpretation Comments MAGNESIUM (test code = MAG) 2.0 MG/DL 1.6-2.3 N GAVE TUBES TO JUVENCBNBASIC METABOLIC [id number] 07:26:00 Test Item Value Reference Range Interpretation [...] = MG/DL 8.7-9.7 CA) GAVE TUBES TO [id number] 07:26:00 Test Item Value Reference Range Interpretation Comments PHOSPHOROUS (test code = PHOS) MG/DL 2.5-4.5 GAVE TUBES TO [id number] 07:26:00 Test Item Value Reference Range Interpretation Comments MAGNESIUM (test code = MAG) MG/DL 1.6-2.3 GAVE TUBES TO JUVENCBNBASIC METABOLIC [id number] 07:23:00 Test Item Value Reference Range Interpretation [...] = CA) MG/DL 8.7-9.7 GAVE TUBES TO [id number] 07:23:00 Test Item Value Reference Range Interpretation Comments PHOSPHOROUS (test code = PHOS) MG/DL 2.5-4.5 GAVE TUBES TO [id number] 07:23:00 Test Item Value Reference Range Interpretation Comments MAGNESIUM (test code = MAG) MG/DL 1.6-2.3 GAVE TUBES TO JUVENCBNCBC W/O [id number] 07:20:00 Test Item Value Reference Range Interpretation [...] code = NRBC#) GAVE TUBES TO JUVENCBNDIFFERENTIAL [id number] 07:20:00 Test Item Value Reference Range Interpretation Comments RBC MORPHOLOGY REQUIRED (test code = RBCM) PLATELET ESTIMATE (test code = PLTEST) ADEQUATE PLATELET MORPHOLOGY (test code = NORMAL PLTMORPH) GAVE TUBES TO JUVENCBNWBC [id number] 07:20:00 Test Item Value Reference Range Interpretation Comments TOTAL CELLS COUNTED (test code = TCC) #CELLS SEGMENTED NEUTROPHILS (test code = % 36.2-73.8 SEG) LYMPHOCYTE (test code = LYMPH) % 12.9-45.1 MONOCYTE (test code = MON) % 0-11 GAVE TUBES TO JUVENCBNCBC W/AUTO [id number] 07:20:00 Test Item Value Reference Range Interpretation [...] code = NRBC#) GAVE TUBES TO JUVENCBNWBC [id number] 07:20:00 Test Item Value Reference Range Interpretation [...] NORMAL PLTMORPH) GAVE TUBES TO JUVENCBNGLUCOSE BEDSIDE [id number] 20:59:00 Test Item Value Reference Range Interpretation Comments GLUCOSE BEDSIDE TESTING (test code 108 MG/DL 60-99 H = GLUBED) HGB [id number] 20:16:00 Test Item Value Reference Range Interpretation Comments HEMOGLOBIN (test code = HGB) 10.4 G/DL 11.2-14.9 L HEMATOCRIT (test code = HCT) 31.8 % 33.2-43.5 L ARTERIAL BLOOD [id number] 20:09:00 Test Item Value Reference Range Interpretation [...] FIO2 (test code = 24 % COHBGFFIO2) PaO2/[id number] 20:09:00 Test Item Value Reference Range Interpretation Comments PaO2/FiO2 (test code = CFX0FNG9) mm/Hg ARTERIAL BLOOD [id number] 20:09:00 Test Item Value Reference Range Interpretation [...] FIO2 (test code = 24 % COHBGFFIO2) PaO2/[id number] 20:09:00 Test Item Value Reference Range Interpretation Comments PaO2/FiO2 (test code = MNS5AHM1) 378.75 mm/Hg ARTERIAL BLOOD [id number] 16:56:00 Test Item Value Reference Range Interpretation [...] FIO2 (test code = 24 % COHBGFFIO2) PaO2/[id number] 16:56:00 Test Item Value Reference Range Interpretation Comments PaO2/FiO2 (test code = GRG0ELI6) mm/Hg ARTERIAL BLOOD [id number] 16:56:00 Test Item Value Reference Range Interpretation [...] FIO2 (test code = 24 % COHBGFFIO2) PaO2/[id number] 16:56:00 Test Item Value Reference Range Interpretation Comments PaO2/FiO2 (test code = LGS8KBO1) 413.75 mm/Hg GLUCOSE BEDSIDE [id number] 16:14:00 Test Item Value Reference Range Interpretation Comments GLUCOSE BEDSIDE TESTING (test code 106 MG/DL 60-99 H = GLUBED) HGB [id number] 15:44:00 Test Item Value Reference Range Interpretation Comments HEMOGLOBIN (test code = HGB) 9.9 G/DL 11.2-14.9 L HEMATOCRIT (test code = HCT) 29.1 % 33.2-43.5 L LACTIC [id number] 11:54:00 Test Item Value Reference Range Interpretation Comments LACTIC ACID (test code = LACT) 1.7 MMOL/L 0.7-2.1 N GLUCOSE BEDSIDE [id number] 11:16:00 Test Item Value Reference Range Interpretation Comments GLUCOSE BEDSIDE TESTING (test code 123 MG/DL 60-99 H = GLUBED) ARTERIAL BLOOD [id number] 10:36:00 Test Item Value Reference Range Interpretation [...] FIO2 (test code = COHBGFFIO2) 24 % PaO2/[id number] 10:36:00 Test Item Value Reference Range Interpretation Comments PaO2/FiO2 (test code = HNY3ZUT2) mm/Hg ARTERIAL BLOOD [id number] 10:36:00 Test Item Value Reference Range Interpretation [...] FIO2 (test code = COHBGFFIO2) 24 % PaO2/[id number] 10:36:00 Test Item Value Reference Range Interpretation Comments PaO2/FiO2 (test code = YRJ3IXX9) 414.16 mm/Hg HGB [id number] 07:58:00 Test Item Value Reference Range Interpretation Comments HEMOGLOBIN (test code = HGB) 9.6 G/DL 11.2-14.9 L HEMATOCRIT (test code = HCT) 28.7 % 33.2-43.5 L GLUCOSE BEDSIDE [id number] 07:48:00 Test Item Value Reference Range Interpretation Comments GLUCOSE BEDSIDE TESTING 120 MG/DL 60-99 H Noti fied Nurse~ (test code = GLUBED) [id number] 05:42:00 Test Item Value Reference Range Interpretation Comments VANCOMYCIN (test code = VANCO) 16.2 mcg/ML 5.0-26.0 N BASIC METABOLIC [id number] 05:38:00 Test Item Value Reference Range Interpretation [...] code = 8.6 MG/DL 8.4-10.2 N CA) [id number] 05:38:00 Test Item Value Reference Range Interpretation Comments PHOSPHOROUS (test code = PHOS) 3.8 MG/DL 2.5-4.5 N [id number] 05:38:00 Test Item Value Reference Range Interpretation Comments MAGNESIUM (test code = MAG) 2.0 MG/DL 1.6-2.3 N BASIC METABOLIC [id number] 05:37:00 Test Item Value Reference Range Interpretation [...] CALCIUM (test code = MG/DL 8.7-9.7 CA) [id number] 05:37:00 Test Item Value Reference Range Interpretation Comments PHOSPHOROUS (test code = PHOS) 3.8 MG/DL 2.5-4.5 N [id number] 05:37:00 Test Item Value Reference Range Interpretation Comments MAGNESIUM (test code = MAG) MG/DL 1.6-2.3 LACTIC [id number] 05:37:00 Test Item Value Reference Range Interpretation Comments LACTIC ACID (test code = LACT) 1.5 MMOL/L 0.7-2.1 N PROTHROMBIN [id number] 05:37:00 Test Item Value Reference Range Interpretation [...] eric embolism. 3.0 - 4.5 BASIC METABOLIC [id number] 05:36:00 Test Item Value Reference Range Interpretation [...] CALCIUM (test code = MG/DL 8.7-9.7 CA) [id number] 05:36:00 Test Item Value Reference Range Interpretation Comments PHOSPHOROUS (test code = PHOS) MG/DL 2.5-4.5 [id number] 05:36:00 Test Item Value Reference Range Interpretation Comments MAGNESIUM (test code = MAG) MG/DL 1.6-2.3 BASIC METABOLIC [id number] 05:33:00 Test Item Value Reference Range Interpretation [...] CALCIUM (test code = CA) MG/DL 8.7-9.7 [id number] 05:33:00 Test Item Value Reference Range Interpretation Comments PHOSPHOROUS (test code = PHOS) MG/DL 2.5-4.5 [id number] 05:33:00 Test Item Value Reference Range Interpretation Comments MAGNESIUM (test code = MAG) MG/DL 1.6-2.3 BASIC METABOLIC [id number] 05:33:00 Test Item Value Reference Range Interpretation [...] CALCIUM (test code = CA) MG/DL 8.7-9.7 [id number] 05:33:00 Test Item Value Reference Range Interpretation Comments PHOSPHOROUS (test code = PHOS) MG/DL 2.5-4.5 [id number] 05:33:00 Test Item Value Reference Range Interpretation Comments MAGNESIUM (test code = MAG) MG/DL 1.6-2.3 CBC W/AUTO [id number] 05:26:00 Test Item Value Reference Range Interpretation [...] = 0.03 K/mm3 0.0-0.1 N NRBC#) DIFFERENTIAL [id number] 05:26:00 Test Item Value Reference Range Interpretation Comments RBC MORPHOLOGY REQUIRED (test code = RBCM) PLATELET ESTIMATE (test code = PLTEST) ADEQUATE PLATELET MORPHOLOGY (test code = NORMAL PLTMORPH) CBC W/AUTO [id number] 05:26:00 Test Item Value Reference Range Interpretation [...] = 0.03 K/mm3 0.0-0.1 N NRBC#) DIFFERENTIAL [id number] 05:26:00 Test Item Value Reference Range Interpretation Comments RBC MORPHOLOGY REQUIRED (test code = RBCM) PLATELET ESTIMATE (test code = PLTEST) ADEQUATE PLATELET MORPHOLOGY (test code = NORMAL PLTMORPH) ARTERIAL BLOOD [id number] 04:54:00 Test Item Value Reference Range Interpretation [...] FIO2 (test code = 24 % COHBGFFIO2) PaO2/[id number] 04:54:00 Test Item Value Reference Range Interpretation Comments PaO2/FiO2 (test code = MFO5MND3) mm/Hg ARTERIAL BLOOD [id number] 04:54:00 Test Item Value Reference Range Interpretation [...] FIO2 (test code = 24 % COHBGFFIO2) PaO2/[id number] 04:54:00 Test Item Value Reference Range Interpretation Comments PaO2/FiO2 (test code = HWS0HQB4) 394.16 mm/Hg GLUCOSE BEDSIDE [id number] 21:17:00 Test Item Value Reference Range Interpretation Comments GLUCOSE BEDSIDE TESTING (test code 127 MG/DL 60-99 H = GLUBED) HGB [id number] 19:42:00 Test Item Value Reference Range Interpretation Comments HEMOGLOBIN (test code = HGB) 10.1 G/DL 11.2-14.9 L HEMATOCRIT (test code = HCT) 30.4 % 33.2-43.5 L UNABLE TO DRAW BLOOD, REASON: CBNNOTIFIED PATIENT CARE STAFF: ERIK 12/25/19 AT 1744 BY Kristen Henry AnGLUCOSE BEDSIDE [id number] 15:53:00 Test Item Value Reference Range Interpretation Comments GLUCOSE BEDSIDE TESTING 135 MG/DL 60-99 H Noti fied Nurse~ (test code = GLUBED) LACTIC [id number] 15:16:00 Test Item Value Reference Range Interpretation Comments LACTIC ACID (test code = LACT) 1.6 MMOL/L 0.7-2.1 N UNABLE TO DRAW BLOOD, REASON: CBNNOTIFIED PATIENT CARE STAFF: ERIK 12/25/19 AT 1412 BY Kristen Henry AnVANCOMYCIN [id number] 15:12:00 Test Item Value Reference Range Interpretation Comments VANCOMYCIN TROUGH (test code = 20.4 UG/ML 10.0-20.0 H VANCT) UNABLE TO DRAW BLOOD, REASON: CBNNOTIFIED PATIENT CARE STAFF: ERIK 12/25/19 AT 1411 BY Kristen Henry AnHGB [id number] 14:45:00 Test Item Value Reference Range Interpretation Comments HEMOGLOBIN (test code = HGB) 10.5 G/DL 11.2-14.9 L HEMATOCRIT (test code = HCT) 31.2 % 33.2-43.5 L UNABLE TO DRAW BLOOD, REASON: CBNNOTIFIED PATIENT CARE STAFF: ERIK 12/25/19 AT 1412 BY Kristen Henry AnLACTIC [id number] 12:57:00 Test Item Value Reference Range Interpretation Comments LACTIC ACID (test code = LACT) 1.4 MMOL/L 0.7-2.1 N GLUCOSE BEDSIDE [id number] 12:18:00 Test Item Value Reference Range Interpretation Comments GLUCOSE BEDSIDE TESTING 136 MG/DL 60-99 H Noti fied Nurse~ (test code = GLUBED) HGB [id number] 08:53:00 Test Item Value Reference Range Interpretation Comments HEMOGLOBIN (test code = HGB) 10.2 G/DL 11.2-14.9 L HEMATOCRIT (test code = HCT) 30.2 % 33.2-43.5 L UNABLE TO DRAW BLOOD, REASON: CBNNOTIFIED PATIENT CARE STAFF: DANILO PABON 12/25/19 AT 0835 BY Aydee Daniels CHEST [id number] 07:44:00 [facility] 1940 Sex: F Patient Name: JORGE A HORTA Unit No: [id number] EXAMS: CPT CODE: [id number] XR CHEST 1V [id number] LOCATION: T18 EXAM: CHEST 1 VIEW INDICATION: [...] t.SDR.JP19 Orig Print D/T: S: 12/25/2019 (0747) [facility] NAME: JORGE A HORTA [address] [place] [address] PHYS: [place] [address] : 1940 AGE: 79 SEX: F LOC: Z.SI06 A PHONE #: [phone] EXAM DATE: 12/25/2019 STATUS: ADM IN FAX #: [phone] RADIOLOGY NO: PAGE 1 Signed ReportGLUCOSE BEDSIDE [id number] 07:42:00 Test Item Value Reference Range Interpretation Comments GLUCOSE BEDSIDE TESTING 132 MG/DL 60-99 H Noti fied Nurse~ (test code = GLUBED) PROTHROMBIN [id number] 05:02:00 Test Item Value Reference Range Interpretation [...] eric embolism. 3.0 - 4.5 ARTERIAL BLOOD [id number] 04:55:00 Test Item Value Reference Range Interpretation [...] FIO2 (test code = COHBGFFIO2) 35 % PaO2/[id number] 04:55:00 Test Item Value Reference Range Interpretation Comments PaO2/FiO2 (test code = UOK4MXP8) mm/Hg ARTERIAL BLOOD [id number] 04:55:00 Test Item Value Reference Range Interpretation [...] FIO2 (test code = COHBGFFIO2) 35 % PaO2/[id number] 04:55:00 Test Item Value Reference Range Interpretation Comments PaO2/FiO2 (test code = LQW0GHL6) 242.85 mm/Hg CBC W/O [id number] 04:33:00 Test Item Value Reference Range Interpretation [...] K/mm3 0.0-0.1 N code = NRBC#) DIFFERENTIAL [id number] 04:33:00 Test Item Value Reference Range Interpretation Comments RBC MORPHOLOGY REQUIRED (test code = ABNORMAL RBCM) POIKILOCYTOSIS (test code = POIK) FEW NONE ANISOCYTOSIS (test code = ANISO) SLIGHT NONE CRENATED CELLS (test code = CREN) FEW NONE PLATELET ESTIMATE (test code = ADEQUATE ADEQUATE PLTEST) PLATELET MORPHOLOGY (test code = NORMAL NORMAL PLTMORPH) WBC [id number] 04:33:00 Test Item Value Reference Range Interpretation [...] MON) 2.5 % 0-11 N CBC W/O [id number] 03:36:00 Test Item Value Reference Range Interpretation [...] K/mm3 0.0-0.1 N code = NRBC#) DIFFERENTIAL [id number] 03:36:00 Test Item Value Reference Range Interpretation Comments RBC MORPHOLOGY REQUIRED (test code = RBCM) PLATELET ESTIMATE (test code = PLTEST) ADEQUATE PLATELET MORPHOLOGY (test code = NORMAL PLTMORPH) WBC [id number] 03:36:00 Test Item Value Reference Range Interpretation Comments TOTAL CELLS COUNTED (test code = TCC) #CELLS SEGMENTED NEUTROPHILS (test code = % 36.2-73.8 SEG) LYMPHOCYTE (test code = LYMPH) % 12.9-45.1 MONOCYTE (test code = MON) % 0-11 CBC W/AUTO [id number] 03:36:00 Test Item Value Reference Range Interpretation [...] K/mm3 0.0-0.1 N code = NRBC#) WBC [id number] 03:36:00 Test Item Value Reference Range Interpretation Comments RBC MORPHOLOGY REQUIRED (test code = RBCM) TOTAL CELLS COUNTED (test code = TCC) #CELLS SEGMENTED NEUTROPHILS (test code = % 36.2-73.8 SEG) LYMPHOCYTE (test code = LYMPH) % 12.9-45.1 MONOCYTE (test code = MON) % 0-11 PLATELET ESTIMATE (test code = ADEQUATE PLTEST) PLATELET MORPHOLOGY (test code = NORMAL PLTMORPH) BASIC METABOLIC [id number] 03:28:00 Test Item Value Reference Range Interpretation [...] code = 8.6 MG/DL 8.4-10.2 N CA) [id number] 03:28:00 Test Item Value Reference Range Interpretation Comments PHOSPHOROUS (test code = PHOS) 3.4 MG/DL 2.5-4.5 N [id number] 03:28:00 Test Item Value Reference Range Interpretation Comments MAGNESIUM (test code = MAG) 2.3 MG/DL 1.6-2.3 [id number] 21:06:00 Test Item Value Reference Range Interpretation Comments POTASSIUM (test code = K) 3.8 MMOL/L 3.5-5.1 N UNABLE TO DRAW BLOOD, REASON: CBNNOTIFIED PATIENT CARE STAFF: LEXUS 12/24/19 AT 2019 BY Kristen Henry2020-11-15 21:06:00 Test Item Value Reference Range Interpretation Comments CALCIUM (test code = CA) 8.1 MG/DL 8.4-10.2 L UNABLE TO DRAW BLOOD, REASON: CBNNOTIFIED PATIENT CARE STAFF: [facility] 12/24/192019 BY Kristen HenryGNESIUM2020-11-15 21:06:00 Test Item Value Reference Range Interpretation Comments MAGNESIUM (test code = MAG) 1.9 MG/DL 1.6-2.3 UNABLE TO DRAW BLOOD, REASON: CBNNOTIFIED PATIENT CARE STAFF: [facility] 12/24/192019 BY Kristen Henry [id number] 21:05:00 Test Item Value Reference Range Interpretation Comments POTASSIUM (test code = K) 3.8 MMOL/L 3.5-5.1 N UNABLE TO DRAW BLOOD, REASON: CBNNOTIFIED PATIENT CARE STAFF: [facility] 12/24/192019 BY Kristen Henry [id number] 21:05:00 Test Item Value Reference Range Interpretation Comments CALCIUM (test code = CA) 8.1 MG/DL 8.4-10.2 L UNABLE TO DRAW BLOOD, REASON: CBNNOTIFIED PATIENT CARE STAFF: [facility] 12/24/192019 BY Kristen HenryGNESIUM2020-11-15 21:05:00 Test Item Value Reference Range Interpretation Comments MAGNESIUM (test code = MAG) MG/DL 1.6-2.3 UNABLE TO DRAW BLOOD, REASON: CBNNOTIFIED PATIENT CARE STAFF: [facility] 12/24/192019 BY Kristen Henry [id number] 21:02:00 Test Item Value Reference Range Interpretation Comments POTASSIUM (test code = K) 3.8 MMOL/L 3.5-5.1 N UNABLE TO DRAW BLOOD, REASON: CBNNOTIFIED PATIENT CARE STAFF: [facility] 12/24/192019 BY Kristen HenryLCIUM2020-11-15 21:02:00 Test Item Value Reference Range Interpretation Comments CALCIUM (test code = CA) MG/DL 8.7-9.7 UNABLE TO DRAW BLOOD, REASON: CBNNOTIFIED PATIENT CARE STAFF: [facility] 12/24/192019 BY Kristen Henry [id number] 21:02:00 Test Item Value Reference Range Interpretation Comments MAGNESIUM (test code = MAG) MG/DL 1.6-2.3 UNABLE TO DRAW BLOOD, REASON: CBNNOTIFIED PATIENT CARE STAFF: ARNOLDAMYDULCE 12/24/192019 BY Kristen Henry AnHGB [id number] 20:48:00 Test Item Value Reference Range Interpretation Comments HEMOGLOBIN (test code = HGB) 8.2 G/DL 11.2-14.9 L HEMATOCRIT (test code = HCT) 24.2 % 33.2-43.5 L UNABLE TO DRAW BLOOD, REASON: CBNNOTIFIED PATIENT CARE STAFF: ARNOLDAMOS 12/24/192019 BY Kristen Henry AnGLUCOSE BEDSIDE [id number] 20:27:00 Test Item Value Reference Range Interpretation Comments GLUCOSE BEDSIDE TESTING (test code 139 MG/DL 60-99 H = GLUBED) VANCOMYCIN [id number] 16:07:00 Test Item Value Reference Range Interpretation Comments VANCOMYCIN TROUGH (test code = 15.9 UG/ML 10.0-20.0 N VANCT) UNABLE TO DRAW BLOOD, REASON: CBNNOTIFIED PATIENT CARE STAFF: TREY 12/24/19 AT 1519 BY Kristen Henry AnARTERIAL BLOOD [id number] 15:59:00 Test Item Value Reference Range Interpretation [...] FIO2 (test code = 35 % COHBGFFIO2) PaO2/[id number] 15:59:00 Test Item Value Reference Range Interpretation Comments PaO2/FiO2 (test code = PMP7IIE9) mm/Hg ARTERIAL BLOOD [id number] 15:59:00 Test Item Value Reference Range Interpretation [...] FIO2 (test code = 35 % COHBGFFIO2) PaO2/[id number] 15:59:00 Test Item Value Reference Range Interpretation Comments PaO2/FiO2 (test code = HUL6SRS4) 298.28 mm/Hg PTT [id number] 15:58:00 Test Item Value Reference Range Interpretation Comments PTT ACTIVATED (test code = APTT) 39.0 SECONDS 25.1-36.5 H UNABLE TO DRAW BLOOD, REASON: CBNNOTIFIED PATIENT CARE STAFF: CONSUELO 12/24/19 AT 1519 BY Kristen Henry AnHGB [id number] 15:41:00 Test Item Value Reference Range Interpretation Comments HEMOGLOBIN (test code = HGB) 8.2 G/DL 11.2-14.9 L HEMATOCRIT (test code = HCT) 24.6 % 33.2-43.5 L UNABLE TO DRAW BLOOD, REASON: CBNNOTIFIED PATIENT CARE STAFF: [facility] 12/24/19 AT 1519 BY Kristen Henry AnARTERIAL BLOOD [id number] 13:00:00 Test Item Value Reference Range Interpretation [...] FIO2 (test code = COHBGFFIO2) 35 % PaO2/[id number] 13:00:00 Test Item Value Reference Range Interpretation Comments PaO2/FiO2 (test code = JJH3IKB0) mm/Hg ARTERIAL BLOOD [id number] 13:00:00 Test Item Value Reference Range Interpretation [...] FIO2 (test code = COHBGFFIO2) 35 % PaO2/[id number] 13:00:00 Test Item Value Reference Range Interpretation Comments PaO2/FiO2 (test code = WXY6ARH0) 318.57 mm/Hg HGB [id number] 12:52:00 Test Item Value Reference Range Interpretation Comments HEMOGLOBIN (test code = HGB) 8.3 G/DL 11.2-14.9 L HEMATOCRIT (test code = HCT) 25.1 % 33.2-43.5 L ARTERIAL BLOOD [id number] 09:55:00 Test Item Value Reference Range Interpretation [...] code = 0.3 % 0.4-1.5 L METHGB) PaO2/[id number] 09:55:00 Test Item Value Reference Range Interpretation Comments PaO2/FiO2 (test code = XBS5HLH6) mm/Hg ARTERIAL BLOOD [id number] 09:55:00 Test Item Value Reference Range Interpretation [...] code = 0.3 % 0.4-1.5 L METHGB) PaO2/[id number] 09:55:00 Test Item Value Reference Range Interpretation Comments PaO2/FiO2 (test code = XWS1KBB6) 318.57 mm/Hg [id number] 09:53:00 Test Item Value Reference Range Interpretation Comments PHOSPHOROUS (test code = PHOS) 3.7 MG/DL 2.5-4.5 N [id number] 09:53:00 Test Item Value Reference Range Interpretation Comments MAGNESIUM (test code = MAG) 1.5 MG/DL 1.6-2.3 L LACTIC [id number] 09:12:00 Test Item Value Reference Range Interpretation Comments LACTIC ACID (test code = LACT) 1.5 MMOL/L 0.7-2.1 N HGB [id number] 08:55:00 Test Item Value Reference Range Interpretation Comments HEMOGLOBIN (test code = HGB) 8.5 G/DL 11.2-14.9 L HEMATOCRIT (test code = HCT) 25.3 % 33.2-43.5 L CBC W/O [id number] 07:59:00 Test Item Value Reference Range Interpretation [...] K/mm3 0.0-0.1 N code = NRBC#) DIFFERENTIAL [id number] 07:59:00 Test Item Value Reference Range Interpretation Comments RBC MORPHOLOGY REQUIRED (test code = NORMAL RBCM) POIKILOCYTOSIS (test code = POIK) FEW NONE GIAN CELLS (test code = GIAN) FEW NONE PLATELET ESTIMATE (test code = ADEQUATE ADEQUATE PLTEST) PLATELET MORPHOLOGY (test code = NORMAL NORMAL PLTMORPH) WBC [id number] 07:59:00 Test Item Value Reference Range Interpretation [...] 0-0 H code = NRBC) GLUCOSE BEDSIDE [id number] 07:55:00 Test Item Value Reference Range Interpretation Comments GLUCOSE BEDSIDE TESTING (test code 125 MG/DL 60-99 H = GLUBED) - XR CHEST [id number] 06:07:00 [facility] : 1940 Sex: F Patient Name: JORGE A HORTA Unit No: [id number] EXAMS: CPT CODE: [id number] XR CHEST 1V [id number] Examination: One view chest x-ray Location code: [...] AuraVR5 Orig Print D/T: S: 12/24/2019 (0628) [facility] NAME: JORGE A HORTA [address] [place] PHYS: [place] [address] : 1940 AGE: 79 SEX: F LOC: [id number] Monty PHONE #: [phone] EXAM DATE: 12/24/2019 STATUS: ADM IN FAX #: [phone] RADIOLOGY NO: PAGE 1 Signed Report COMPREHENSIVE METABOLIC [id number] 05:40:00 Test Item Value Reference Range Interpretation [...] N (test code = ALKP) COMPREHENSIVE METABOLIC [id number] 05:38:00 Test Item Value Reference Range Interpretation [...] UNITS/L 38-126 (test code = ALKP) LACTIC [id number] 05:38:00 Test Item Value Reference Range Interpretation Comments LACTIC ACID (test code = LACT) 2.1 MMOL/L 0.7-2.1 N COMPREHENSIVE METABOLIC [id number] 05:37:00 Test Item Value Reference Range Interpretation [...] code = UNITS/L 38-126 ALKP) COMPREHENSIVE METABOLIC [id number] 05:36:00 Test Item Value Reference Range Interpretation [...] (test code = UNITS/L 38-126 ALKP) PROTHROMBIN [id number] 05:32:00 Test Item Value Reference Range Interpretation [...] eric embolism. 3.0 - 4.5 CBC W/O [id number] 05:27:00 Test Item Value Reference Range Interpretation [...] K/mm3 0.0-0.1 N code = NRBC#) DIFFERENTIAL [id number] 05:27:00 Test Item Value Reference Range Interpretation Comments RBC MORPHOLOGY REQUIRED (test code = RBCM) PLATELET ESTIMATE (test code = PLTEST) ADEQUATE PLATELET MORPHOLOGY (test code = NORMAL PLTMORPH) WBC [id number] 05:27:00 Test Item Value Reference Range Interpretation Comments TOTAL CELLS COUNTED (test code = TCC) #CELLS SEGMENTED NEUTROPHILS (test code = % 36.2-73.8 SEG) LYMPHOCYTE (test code = LYMPH) % 12.9-45.1 MONOCYTE (test code = MON) % 0-11 CBC W/AUTO [id number] 05:27:00 Test Item Value Reference Range Interpretation [...] K/mm3 0.0-0.1 N code = NRBC#) WBC [id number] 05:27:00 Test Item Value Reference Range Interpretation Comments RBC MORPHOLOGY REQUIRED (test code = RBCM) TOTAL CELLS COUNTED (test code = TCC) #CELLS SEGMENTED NEUTROPHILS (test code = % 36.2-73.8 SEG) LYMPHOCYTE (test code = LYMPH) % 12.9-45.1 MONOCYTE (test code = MON) % 0-11 PLATELET ESTIMATE (test code = ADEQUATE PLTEST) PLATELET MORPHOLOGY (test code = NORMAL PLTMORPH) HGB [id number] 00:34:00 Test Item Value Reference Range Interpretation Comments HEMOGLOBIN (test code = HGB) 7.4 G/DL 11.2-14.9 L HEMATOCRIT (test code = HCT) 23.1 % 33.2-43.5 L LACTIC [id number] 00:28:00 Test Item Value Reference Range Interpretation Comments LACTIC ACID (test code = LACT) 2.2 MMOL/L 0.7-2.1 H GLUCOSE BEDSIDE [id number] 00:12:00 Test Item Value Reference Range Interpretation Comments GLUCOSE BEDSIDE TESTING (test code = 88 MG/DL 60-99 N GLUBED) GLUCOSE BEDSIDE [id number] 22:03:00 Test Item Value Reference Range Interpretation Comments GLUCOSE BEDSIDE TESTING (test code = 75 MG/DL 60-99 N GLUBED) LACTIC [id number] 18:59:00 Test Item Value Reference Range Interpretation Comments LACTIC ACID (test code = LACT) 2.7 MMOL/L 0.7-2.1 H UNABLE TO DRAW BLOOD, REASON: CBNNOTIFIED PATIENT CARE STAFF: [facility] 12/23/19 AT 133 BY Kristen Henry AnGLUCOSE BEDSIDE [id number] 16:34:00 Test Item Value Reference Range Interpretation Comments GLUCOSE BEDSIDE TESTING (test code = 81 MG/DL 60-99 N GLUBED) LACTIC [id number] 16:07:00 Test Item Value Reference Range Interpretation Comments LACTIC ACID (test code = LACT) 2.8 MMOL/L 0.7-2.1 H UNABLE TO DRAW BLOOD, REASON: CBNNOTIFIED PATIENT CARE STAFF: [facility] 12/23/19 AT 133 BY Kristen Henry [id number] 15:54:00 Test Item Value Reference Range Interpretation Comments HEMOGLOBIN (test code = HGB) 7.8 G/DL 11.2-14.9 L UNABLE TO DRAW BLOOD, REASON: CBNNOTIFIED PATIENT CARE STAFF: [facility] 12/23/19 AT [facility] BY Kristen HenryHGB [id number] 12:42:00 Test Item Value Reference Range Interpretation Comments HEMOGLOBIN (test code = HGB) 9.4 G/DL 11.2-14.9 L HEMATOCRIT (test code = HCT) 28.8 % 33.2-43.5 L BASIC METABOLIC [id number] 12:29:00 Test Item Value Reference Range Interpretation [...] code = 7.6 MG/DL 8.4-10.2 L CA) [id number] 12:29:00 Test Item Value Reference Range Interpretation Comments MAGNESIUM (test code = MAG) 1.4 MG/DL 1.6-2.3 L LACTIC [id number] 12:27:00 Test Item Value Reference Range Interpretation Comments LACTIC ACID (test code = LACT) 3.1 MMOL/L 0.7-2.1 H BASIC METABOLIC [id number] 12:27:00 Test Item Value Reference Range Interpretation [...] CALCIUM (test code = MG/DL 8.7-9.7 CA) [id number] 12:27:00 Test Item Value Reference Range Interpretation Comments MAGNESIUM (test code = MAG) MG/DL 1.6-2.3 BASIC METABOLIC [id number] 12:24:00 Test Item Value Reference Range Interpretation [...] CALCIUM (test code = CA) MG/DL 8.7-9.7 [id number] 12:24:00 Test Item Value Reference Range Interpretation Comments MAGNESIUM (test code = MAG) MG/DL 1.6-2.3 LACTIC [id number] 09:12:00 Test Item Value Reference Range Interpretation Comments LACTIC ACID (test code = LACT) 3.6 MMOL/L 0.7-2.1 H [id number] 09:05:00 Test Item Value Reference Range Interpretation Comments HEMOGLOBIN (test code = HGB) 10.9 G/DL 11.2-14.9 L - XR CHEST [id number] 06:04:00 [facility] 1940 Sex: F Patient Name: JORGE A HORTA Unit No: [id number] EXAMS: CPT CODE: [id number] XR CHEST 1V 25858 LOCATION: H43 EXAM: - XR CHEST 1V [...] (0604) t.SDR.NS15 Orig Print D/T: S: 12/23/2019(0707) [facility] NAME: JORGE A HORTA [address] PHYS: [place] [address] : 1940 AGE: 79 SEX: F LOC: Z.SI06 A PHONE #: [phone] EXAM DATE: 12/23/2019 STATUS: ADM IN FAX #: [phone] RADIOLOGY NO: PAGE 1 Signed ReportCBC W/AUTO [id number] 05:32:00 Test Item Value Reference Range Interpretation [...] 0.02 K/mm3 0.0-0.1 N NRBC#) COMPREHENSIVE METABOLIC [id number] 05:23:00 Test Item Value Reference Range Interpretation [...] 38-126 (test code = ALKP) COMPREHENSIVE METABOLIC [id number] 05:09:00 Test Item Value Reference Range Interpretation [...] code = UNITS/L 38-126 ALKP) COMPREHENSIVE METABOLIC [id number] 05:08:00 Test Item Value Reference Range Interpretation [...] (test code = UNITS/L 38-126 ALKP) LACTIC [id number] 05:04:00 Test Item Value Reference Range Interpretation Comments LACTIC ACID (test code = LACT) 3.8 MMOL/L 0.7-2.1 H PATIENT RECEIVING BLOODCBC W/AUTO [id number] 03:12:00 Test Item Value Reference Range Interpretation [...] K/mm3 0.0-0.1 N code = NRBC#) WBC [id number] 03:12:00 Test Item Value Reference Range Interpretation [...] (test code = NORMAL NORMAL PLTMORPH) PROTHROMBIN [id number] 00:01:00 Test Item Value Reference Range Interpretation [...] - 4.5 QNS AT 2318. SPOKE TO [employer]. LINE DRAWPTT [id number] 00:01:00 Test Item Value Reference Range Interpretation Comments PTT ACTIVATED (test code = APTT) 47.6 SECONDS 25.1-36.5 H QNS AT 2318. SPOKE TO [employer]. LINE [id number] 00:01:00 Test Item Value Reference Range Interpretation Comments FIBRINOGEN (test code = FIB) 181 mg/dL 200-393 L QNS AT 2318. SPOKE TO [employer]. LINE [id number] 00:01:00 Test Item Value Reference Range Interpretation Comments D-DIMER (test 54599 ng/mLFEU 0-499 H Negative Pre dictive Value [...] pr ocedures. QNS AT 2318. SPOKE TO [employer]. LINE DRAWARTERIAL BLOOD [id number] 23:52:00 Test Item Value Reference Range Interpretation [...] FIO2 (test code = COHBGFFIO2) 85 % PaO2/[id number] 23:52:00 Test Item Value Reference Range Interpretation Comments PaO2/FiO2 (test code = LTQ2WZK7) mm/Hg ARTERIAL BLOOD [id number] 23:52:00 Test Item Value Reference Range Interpretation [...] FIO2 (test code = COHBGFFIO2) 85 % PaO2/[id number] 23:52:00 Test Item Value Reference Range Interpretation Comments PaO2/FiO2 (test code = RRX7YMM5) 99.88 mm/Hg BASIC METABOLIC [id number] 23:35:00 Test Item Value Reference Range Interpretation [...] CALCIUM (test code = MG/DL 8.7-9.7 CA) [id number] 23:35:00 Test Item Value Reference Range Interpretation Comments AMYLASE (test code = CAROLE) 89 UNITS/L 30-110 N [id number] 23:35:00 Test Item Value Reference Range Interpretation Comments LIPASE (test code = LIP) UNITS/L 23-300 [id number] 23:35:00 Test Item Value Reference Range Interpretation Comments MAGNESIUM (test code = MAG) MG/DL 1.6-2.3 BASIC METABOLIC [id number] 23:35:00 Test Item Value Reference Range Interpretation [...] code = 8.0 MG/DL 8.4-10.2 L CA) [id number] 23:35:00 Test Item Value Reference Range Interpretation Comments AMYLASE (test code = CAROLE) 89 UNITS/L 30-110 N [id number] 23:35:00 Test Item Value Reference Range Interpretation Comments LIPASE (test code = LIP) 39 UNITS/L 23-300 N [id number] 23:35:00 Test Item Value Reference Range Interpretation Comments MAGNESIUM (test code = MAG) 1.4 MG/DL 1.6-2.3 L LACTIC [id number] 23:32:00 Test Item Value Reference Range Interpretation Comments LACTIC ACID (test code = LACT) 2.6 MMOL/L 0.7-2.1 H BASIC METABOLIC [id number] 23:31:00 Test Item Value Reference Range Interpretation [...] CALCIUM (test code = CA) MG/DL 8.7-9.7 [id number] 23:31:00 Test Item Value Reference Range Interpretation Comments AMYLASE (test code = CAROLE) UNITS/L 30-110 [id number] 23:31:00 Test Item Value Reference Range Interpretation Comments LIPASE (test code = LIP) UNITS/L 23-300 [id number] 23:31:00 Test Item Value Reference Range Interpretation Comments MAGNESIUM (test code = MAG) MG/DL 1.6-2.3 CBC W/AUTO [id number] 23:28:00 Test Item Value Reference Range Interpretation [...] K/mm3 0.0-0.1 N code = NRBC#) DIFFERENTIAL [id number] 23:28:00 Test Item Value Reference Range Interpretation Comments RBC MORPHOLOGY REQUIRED (test code = RBCM) PLATELET ESTIMATE (test code = PLTEST) ADEQUATE PLATELET MORPHOLOGY (test code = NORMAL PLTMORPH) CBC W/AUTO [id number] 23:28:00 Test Item Value Reference Range Interpretation [...] K/mm3 0.0-0.1 N code = NRBC#) DIFFERENTIAL [id number] 23:28:00 Test Item Value Reference Range Interpretation Comments RBC MORPHOLOGY REQUIRED (test code = RBCM) PLATELET ESTIMATE (test code = PLTEST) ADEQUATE PLATELET MORPHOLOGY (test code = NORMAL PLTMORPH) PLATELET [id number] 23:14:00 Test Item Value Reference Range Interpretation Comments PLATELET COUNT TEST NOT PERFORMED 129-368 SEE CBC REPORT (test code = PLT) K/MM3 - XR CHEST [id number] 23:02:00 [facility] : 1940 Sex: F Patient Name: JORGE A HORTA Unit No: [id number] EXAMS: CPT CODE: [id number] XR CHEST 1V 23468 AFTER HOURS SERVICE ON: 12/22/2019 11:01 PM [...] AuraMA50 Orig Print D/T: S: 12/22/2019 (2305) [facility] NAME: JORGE A HORTA [address] PHYS: [place] [address] : 1940 AGE: 79 SEX: F LOC: Z.SI06 A PHONE #: [phone] EXAM DATE: 12/22/2019 STATUS: ADM IN FAX #: [phone] RADIOLOGY NO: PAGE 1 Signed ReportARTERIAL BLOOD [id number] 22:53:00 Test Item Value Reference Range Interpretation [...] FIO2 (test code = 100 % COHBGFFIO2) PaO2/[id number] 22:53:00 Test Item Value Reference Range Interpretation Comments PaO2/FiO2 (test code = FFI2QJU9) mm/Hg ARTERIAL BLOOD [id number] 22:53:00 Test Item Value Reference Range Interpretation [...] FIO2 (test code = 100 % COHBGFFIO2) PaO2/[id number] 22:53:00 Test Item Value Reference Range Interpretation Comments PaO2/FiO2 (test code = XFR9JEH2) 160.40 mm/Hg BASIC METABOLIC [id number] 19:39:00 Test Item Value Reference Range Interpretation [...] 7.4 MG/DL 8.4-10.2 L CA) Comments to Contract Preparer: USE BLOOD RECENTLY COLLECTED PLEASEIs this a LINE draw? NBASIC METABOLIC [id number] 19:38:00 Test Item Value Reference Range Interpretation [...] code = MG/DL 8.7-9.7 CA) Comments to Contract Preparer: USE BLOOD RECENTLY COLLECTED PLEASEIs this a LINE draw? NBASIC METABOLIC [id number] 19:36:00 Test Item Value Reference Range Interpretation [...] code = CA) MG/DL 8.7-9.7 Comments to Contract Preparer: USE BLOOD RECENTLY COLLECTED PLEASEIs this a LINE draw? NPROTHROMBIN [id number] 19:22:00 Test Item Value Reference Range Interpretation [...] eric embolism. 3.0 - 4.5 Comments to Contract Preparer: USE BLOOD RECENTLY COLLECTED PLEASE PELASEPTT [id number] 19:22:00 Test Item Value Reference Range Interpretation Comments PTT ACTIVATED (test code = APTT) 28.4 SECONDS 25.1-36.5 N Comments to Contract Preparer: USE BLOOD RECENTLY COLLECTED PLEASE PELASEHGB [id number] 18:56:00 Test Item Value Reference Range Interpretation Comments HEMOGLOBIN (test code = HGB) 8.8 G/DL 11.2-14.9 L HEMATOCRIT (test code = HCT) 27.5 % 33.2-43.5 L GLUCOSE BEDSIDE [id number] 17:38:00 Test Item Value Reference Range Interpretation Comments GLUCOSE BEDSIDE TESTING (test code = 86 MG/DL 60-99 N GLUBED) HGB [id number] 14:37:00 Test Item Value Reference Range Interpretation Comments HEMOGLOBIN (test code = HGB) 9.3 G/DL 11.2-14.9 L HEMATOCRIT (test code = HCT) 29.2 % 33.2-43.5 L GLUCOSE BEDSIDE [id number] 12:04:00 Test Item Value Reference Range Interpretation Comments GLUCOSE BEDSIDE TESTING (test code = 88 MG/DL 60-99 N GLUBED) COMPREHENSIVE METABOLIC [id number] 07:26:00 Test Item Value Reference Range Interpretation [...] N (test code = ALKP) COMPREHENSIVE METABOLIC [id number] 07:25:00 Test Item Value Reference Range Interpretation [...] N (test code = ALKP) COMPREHENSIVE METABOLIC [id number] 07:23:00 Test Item Value Reference Range Interpretation [...] code = UNITS/L 38-126 ALKP) COMPREHENSIVE METABOLIC [id number] 07:22:00 Test Item Value Reference Range Interpretation [...] code = UNITS/L 38-126 ALKP) GLUCOSE BEDSIDE [id number] 07:16:00 Test Item Value Reference Range Interpretation Comments GLUCOSE BEDSIDE TESTING (test code = 96 MG/DL 60-99 N GLUBED) PROTHROMBIN [id number] 07:04:00 Test Item Value Reference Range Interpretation [...] syste eric embolism. 3.0 - 4.5 PTT [id number] 07:04:00 Test Item Value Reference Range Interpretation Comments PTT ACTIVATED (test code = APTT) 30.5 SECONDS 25.1-36.5 N CBC W/AUTO [id number] 06:46:00 Test Item Value Reference Range Interpretation [...] 0.00 K/mm3 0.0-0.1 N NRBC#) GLUCOSE BEDSIDE [id number] 00:11:00 Test Item Value Reference Range Interpretation Comments GLUCOSE BEDSIDE TESTING (test code = 98 MG/DL 60-99 N GLUBED) PROTHROMBIN [id number] 23:41:00 Test Item Value Reference Range Interpretation [...] syste eric embolism. 3.0 - 4.5 PTT [id number] 23:41:00 Test Item Value Reference Range Interpretation Comments PTT ACTIVATED (test code = APTT) 25.2 SECONDS 25.1-36.5 N BASIC METABOLIC [id number] 23:39:00 Test Item Value Reference Range Interpretation [...] 7.4 MG/DL 8.4-10.2 L CA) BASIC METABOLIC [id number] 23:36:00 Test Item Value Reference Range Interpretation [...] code = CA) MG/DL 8.7-9.7 CBC W/AUTO [id number] 23:29:00 Test Item Value Reference Range Interpretation [...] 0.00 K/mm3 0.0-0.1 N NRBC#) GLUCOSE BEDSIDE [id number] 20:24:00 Test Item Value Reference Range Interpretation Comments GLUCOSE BEDSIDE TESTING (test code 106 MG/DL 60-99 H = GLUBED) - XR CHEST [id number] 19:08:00 [facility] : 1940 Sex: F Patient Name: JORGE A HORTA Unit No: [id number] EXAMS: CPT CODE: [id number] XR CHEST 1V 89797 REASON FOR EXAM: Coronary artery disease. COMPARISON: [...] Diana Quintana (RT) Transcrpt Date/Tm/Trnsp: 12/21/2019 (1907) [id number] Orig Print D/T: S: 12/21/2019 (1911) [facility] NAME: JORGE A HORTA [address] PHYS: [place] [address] : 1940 AGE: 79 SEX: F LOC: Z.SI06 A PHONE #: [phone] EXAM DATE: 12/21/2019 STATUS: ADM IN FAX #: [phone] RADIOLOGY NO: PAGE 1 Signed ReportGLUCOSE BEDSIDE [id number] 12:32:00 Test Item Value Reference Range Interpretation Comments GLUCOSE BEDSIDE TESTING (test code 130 MG/DL 60-99 H = GLUBED) GLUCOSE BEDSIDE [id number] 09:19:00 Test Item Value Reference Range Interpretation Comments GLUCOSE BEDSIDE TESTING (test code 143 MG/DL 60-99 H = GLUBED) COMPREHENSIVE METABOLIC [id number] 07:06:00 Test Item Value Reference Range Interpretation [...] H (test code = ALKP) COMPREHENSIVE METABOLIC [id number] 06:24:00 Test Item Value Reference Range Interpretation [...] 38-126 (test code = ALKP) COMPREHENSIVE METABOLIC [id number] 06:22:00 Test Item Value Reference Range Interpretation [...] (test code = UNITS/L 38-126 ALKP) PROTHROMBIN [id number] 06:21:00 Test Item Value Reference Range Interpretation [...] eric embolism. 3.0 - 4.5 COMPREHENSIVE METABOLIC [id number] 06:21:00 Test Item Value Reference Range Interpretation [...] code = UNITS/L 38-126 ALKP) CBC W/AUTO [id number] 06:11:00 Test Item Value Reference Range Interpretation [...] 0.00 K/mm3 0.0-0.1 N NRBC#) GLUCOSE BEDSIDE [id number] 21:01:00 Test Item Value Reference Range Interpretation Comments GLUCOSE BEDSIDE TESTING (test code 127 MG/DL 60-99 H = GLUBED) GLUCOSE BEDSIDE [id number] 16:02:00 Test Item Value Reference Range Interpretation Comments GLUCOSE BEDSIDE TESTING (test code 118 MG/DL 60-99 H = GLUBED) - NM ACUTE GI BLOOD [id number] 15:54:00 [facility] : 1940 Sex: F Patient Name: JORGE A HORTA Unit No: [id number] EXAMS: CPT CODE: [id number] NM ACUTE GI BLOOD LOSS 89984 B2 EXAM: - NM ACUTE GI BLOOD [...] (1554) t.CARLAR.VB7 Orig Print D/T: S: 12/20/2019 (6796) [facility] NAME: CHRISTINA HORTANCA [address] PHYS: [place] [address] : 1940 AGE: 79 SEX: F LOC: Z.SI06 A PHONE #: [phone] EXAM DATE: 12/20/2019 STATUS: ADM IN FAX #: [phone] RADIOLOGY NO: PAGE 1 Signed ReportGLUCOSE BEDSIDE TESTING 2019-12-20 11:29:00 Test Item Value Reference Range Interpretation Comments GLUCOSE BEDSIDE TESTING (test code 148 MG/DL 60-99 H = GLUBED) GLUCOSE BEDSIDE [id number] 09:20:00 Test Item Value Reference Range Interpretation Comments GLUCOSE BEDSIDE TESTING (test code 152 MG/DL 60-99 H = GLUBED) BASIC METABOLIC [id number] 06:04:00 Test Item Value Reference Range Interpretation [...] 7.2 MG/DL 8.4-10.2 L CA) BASIC METABOLIC [id number] 06:03:00 Test Item Value Reference Range Interpretation [...] code = MG/DL 8.7-9.7 CA) BASIC METABOLIC [id number] 06:01:00 Test Item Value Reference Range Interpretation [...] code = CA) MG/DL 8.7-9.7 BASIC METABOLIC [id number] 06:00:00 Test Item Value Reference Range Interpretation [...] (test code = CA) MG/DL 8.7-9.7 PROTHROMBIN [id number] 06:00:00 Test Item Value Reference Range Interpretation [...] eric embolism. 3.0 - 4.5 CBC W/AUTO [id number] 05:53:00 Test Item Value Reference Range Interpretation [...] 0.00 K/mm3 0.0-0.1 N NRBC#) GLUCOSE BEDSIDE [id number] 20:57:00 Test Item Value Reference Range Interpretation Comments GLUCOSE BEDSIDE TESTING (test code 138 MG/DL 60-99 H = GLUBED) PROTHROMBIN [id number] 19:46:00 Test Item Value Reference Range Interpretation [...] 12/19/19 AT 183 BY Kristen Henry AnPTT [id number] 19:46:00 Test Item Value Reference Range Interpretation Comments PTT ACTIVATED (test code = APTT) 31.3 SECONDS 25.1-36.5 N UNABLE TO DRAW BLOOD, REASON: HARDSTICK NOTIFIED PATIENT CARE STAFF: MACK 12/19/19 AT 183 BY Kristen Henry AnHGB [id number] 19:36:00 Test Item Value Reference Range Interpretation Comments HEMOGLOBIN (test code = HGB) 7.4 G/DL 11.2-14.9 L HEMATOCRIT (test code = HCT) 23.6 % 33.2-43.5 L Is this a LINE draw? NUNABLE TO DRAW BLOOD, REASON: HARDSTICKNOTIFIED PATIENT CARE STAFF: MACK 12/19/19 AT 183 BY Kristen Henry AnGLUCOSE BEDSIDE [id number] 17:14:00 Test Item Value Reference Range Interpretation Comments GLUCOSE BEDSIDE TESTING (test code 127 MG/DL 60-99 H = GLUBED) GLUCOSE BEDSIDE [id number] 11:41:00 Test Item Value Reference Range Interpretation Comments GLUCOSE BEDSIDE TESTING (test code 125 MG/DL 60-99 H = GLUBED) BASIC METABOLIC [id number] 09:20:00 Test Item Value Reference Range Interpretation [...] 7.5 MG/DL 8.4-10.2 L CA) CBNBASIC METABOLIC [id number] 09:15:00 Test Item Value Reference Range Interpretation [...] code = MG/DL 8.7-9.7 CA) CBNBASIC METABOLIC [id number] 09:13:00 Test Item Value Reference Range Interpretation [...] code = CA) MG/DL 8.7-9.7 CBNBASIC METABOLIC [id number] 09:12:00 Test Item Value Reference Range Interpretation [...] (test code = CA) MG/DL 8.7-9.7 CBNPROTHROMBIN [id number] 09:09:00 Test Item Value Reference Range Interpretation [...] eric embolism. 3.0 - 4.5 CBNComments to Contract Preparer: WITH AM LABSCBC W/AUTO [id number] 08:57:00 Test Item Value Reference Range Interpretation [...] 0.00 K/mm3 0.0-0.1 N NRBC#) CBNGLUCOSE BEDSIDE [id number] 07:42:00 Test Item Value Reference Range Interpretation Comments GLUCOSE BEDSIDE TESTING (test code 122 MG/DL 60-99 H = GLUBED) GLUCOSE BEDSIDE [id number] 21:25:00 Test Item Value Reference Range Interpretation Comments GLUCOSE BEDSIDE TESTING (test code 115 MG/DL 60-99 H = GLUBED) GLUCOSE BEDSIDE [id number] 17:33:00 Test Item Value Reference Range Interpretation Comments GLUCOSE BEDSIDE TESTING (test code 104 MG/DL 60-99 H = GLUBED) C REACTIVE [id number] 15:42:00 Test Item Value Reference Range Interpretation Comments C REACTIVE PROTEIN (test code = 25.20 MG/DL 0.00-9.99 H CRP) - XR SMALL BOWEL/[id number] 12:46:00 [facility] : 1940 Sex: F Patient Name: JORGE A HORTA Unit No: [id number] EXAMS: CPT CODE: [id number] XR SMALL BOWEL/ENTERO 31256 B2 EXAM: Small bowel series INDICATION: Prolonged [...] Cheyanne Hernández, BSRS, RT(R) Transcrpt Date/Tm/Trnsp: 12/18/2019 (1783) AuraVB7 Orig Print D/T: S: 12/18/2019 (0135) [facility] NAME: JORGE A HORTA [address] PHYS: [email or web address].02 - [place] [address] : 1940 AGE: 79 SEX: F : Z.SI06 A PHONE #: [phone] EXAM DATE: 12/18/2019 STATUS: ADM IN FAX #: [phone] RADIOLOGY NO: PAGE 1 Signed ReportGLUCOSE BEDSIDE [id number] 12:07:00 Test Item Value Reference Range Interpretation Comments GLUCOSE BEDSIDE TESTING (test code 101 MG/DL 60-99 H = GLUBED) SED [id number] 09:36:00 Test Item Value Reference Range Interpretation Comments SED RATE (test code = SEDW) 53 MM/HR 0-20 H GLUCOSE BEDSIDE [id number] 09:03:00 Test Item Value Reference Range Interpretation Comments GLUCOSE BEDSIDE TESTING (test code 113 MG/DL 60-99 H = GLUBED) BASIC METABOLIC [id number] 06:06:00 Test Item Value Reference Range Interpretation [...] 7.3 MG/DL 8.4-10.2 L CA) BASIC METABOLIC [id number] 06:00:00 Test Item Value Reference Range Interpretation [...] code = MG/DL 8.7-9.7 CA) BASIC METABOLIC [id number] 05:57:00 Test Item Value Reference Range Interpretation [...] (test code = CA) MG/DL 8.7-9.7 PROTHROMBIN [id number] 05:38:00 Test Item Value Reference Range Interpretation [...] eric embolism. 3.0 - 4.5 Comments to Contract Preparer: WITH AM LABSCBC W/AUTO [id number] 05:29:00 Test Item Value Reference Range Interpretation [...] 0.00 K/mm3 0.0-0.1 N NRBC#) GLUCOSE BEDSIDE [id number] 20:19:00 Test Item Value Reference Range Interpretation Comments GLUCOSE BEDSIDE TESTING (test code 212 MG/DL 60-99 H = GLUBED) GLUCOSE BEDSIDE [id number] 17:34:00 Test Item Value Reference Range Interpretation Comments GLUCOSE BEDSIDE TESTING (test code 217 MG/DL 60-99 H = GLUBED) GLUCOSE BEDSIDE [id number] 13:00:00 Test Item Value Reference Range Interpretation Comments GLUCOSE BEDSIDE TESTING (test code 207 MG/DL 60-99 H = GLUBED) BASIC METABOLIC [id number] 05:59:00 Test Item Value Reference Range Interpretation [...] 7.1 MG/DL 8.4-10.2 L CA) BASIC METABOLIC [id number] 05:51:00 Test Item Value Reference Range Interpretation [...] code = MG/DL 8.7-9.7 CA) BASIC METABOLIC [id number] 05:49:00 Test Item Value Reference Range Interpretation [...] (test code = CA) MG/DL 8.7-9.7 PROTHROMBIN [id number] 05:34:00 Test Item Value Reference Range Interpretation [...] eric embolism. 3.0 - 4.5 CBC W/AUTO [id number] 05:16:00 Test Item Value Reference Range Interpretation [...] = 0.00 K/mm3 0.0-0.1 N NRBC#) PROTHROMBIN [id number] 06:34:00 Test Item Value Reference Range Interpretation [...] eric embolism. 3.0 - 4.5 BASIC METABOLIC [id number] 06:25:00 Test Item Value Reference Range Interpretation [...] 7.3 MG/DL 8.4-10.2 L CA) BASIC METABOLIC [id number] 06:22:00 Test Item Value Reference Range Interpretation [...] (test code = CA) MG/DL 8.7-9.7 LACTIC [id number] 06:19:00 Test Item Value Reference Range Interpretation Comments LACTIC ACID (test code = LACT) 0.8 MMOL/L 0.7-2.1 N CBC W/AUTO [id number] 06:02:00 Test Item Value Reference Range Interpretation [...] 0.00 K/mm3 0.0-0.1 N NRBC#) GLUCOSE BEDSIDE [id number] 10:01:00 Test Item Value Reference Range Interpretation Comments GLUCOSE BEDSIDE TESTING (test code = 96 MG/DL 60-99 N GLUBED) GLUCOSE BEDSIDE [id number] 09:16:00 Test Item Value Reference Range Interpretation Comments GLUCOSE BEDSIDE TESTING (test code = 58 MG/DL 60-99 L GLUBED) BASIC METABOLIC [id number] 06:07:00 Test Item Value Reference Range Interpretation [...] = 7.4 MG/DL 8.4-10.2 L CA) PROTHROMBIN [id number] 06:06:00 Test Item Value Reference Range Interpretation [...] eric embolism. 3.0 - 4.5 BASIC METABOLIC [id number] 06:01:00 Test Item Value Reference Range Interpretation [...] code = MG/DL 8.7-9.7 CA) BASIC METABOLIC [id number] 05:59:00 Test Item Value Reference Range Interpretation [...] code = CA) MG/DL 8.7-9.7 BASIC METABOLIC [id number] 05:58:00 Test Item Value Reference Range Interpretation [...] code = CA) MG/DL 8.7-9.7 CBC W/AUTO [id number] 05:51:00 Test Item Value Reference Range Interpretation [...] 0.00 K/mm3 0.0-0.1 N NRBC#) COMPREHENSIVE METABOLIC [id number] 06:04:00 Test Item Value Reference Range Interpretation [...] N (test code = ALKP) COMPREHENSIVE METABOLIC [id number] 05:59:00 Test Item Value Reference Range Interpretation [...] code = UNITS/L 38-126 ALKP) CBC W/AUTO [id number] 05:43:00 Test Item Value Reference Range Interpretation [...] code = 0.02 K/mm3 0.0-0.1 N NRBC#) [id number] 23:35:00 Test Item Value Reference Range Interpretation Comments HEMOGLOBIN (test code = HGB) 9.7 G/DL 11.2-14.9 L COMPREHENSIVE METABOLIC [id number] 20:53:00 Test Item Value Reference Range Interpretation [...] GREEN TOP WERE SENT AT 18:10COMPREHENSIVE METABOLIC [id number] 20:50:00 Test Item Value Reference Range Interpretation [...] DRAW BLOOD, REASON: CBNNOTIFIED PATIENT CARE STAFF: [facility] 12/13/19 AT 1741 BY Kristen Henry NO GREEN TOP WERE SENT AT 18:10COMPREHENSIVE METABOLIC [id number] 20:48:00 Test Item Value Reference Range Interpretation [...] DRAW BLOOD, REASON: CBNNOTIFIED PATIENT CARE STAFF: [facility] 12/13/19 AT 1741 BY Kristen Henry NO GREEN TOP WERE SENT AT 18:10COMPREHENSIVE METABOLIC [id number] 20:47:00 Test Item Value Reference Range Interpretation [...] BY Kristen Henry An- XR ABDOMEN 1 [id number] 18:16:00 [facility] 1940 Sex: F Patient Name: JORGE A HORTA Unit No: [id number] EXAMS: CPT CODE: [id number] XR ABDOMEN 1 V [id number] Dictation location: H37. ABDOMEN, 1 VIEW HISTORY:GI [...] [id number] Orig Print D/T: S: 12/13/2019 (1819) [facility] NAME: JORGE A HORTA [address] PHYS: [id number] [place] [address] : 1940 AGE: 79 SEX: F LOC: Z.SI06 A PHONE #: [phone] EXAM DATE: 12/13/2019 STATUS: ADM IN FAX #: [phone] RADIOLOGY NO: PAGE 1 Signed ReportLACTIC [id number] 10:38:00 Test Item Value Reference Range Interpretation Comments LACTIC ACID (test code = LACT) 1.4 MMOL/L 0.7-2.1 N PROTHROMBIN [id number] 06:13:00 Test Item Value Reference Range Interpretation [...] eric embolism. 3.0 - 4.5 Comments to Contract Preparer: WITH AM LABSCBC W/AUTO [id number] 06:07:00 Test Item Value Reference Range Interpretation [...] = 0.00 K/mm3 0.0-0.1 N NRBC#) DIFFERENTIAL [id number] 06:07:00 Test Item Value Reference Range Interpretation Comments RBC MORPHOLOGY REQUIRED (test code = RBCM) PLATELET ESTIMATE (test code = PLTEST) ADEQUATE PLATELET MORPHOLOGY (test code = NORMAL PLTMORPH) CBC W/AUTO [id number] 06:07:00 Test Item Value Reference Range Interpretation [...] = 0.00 K/mm3 0.0-0.1 N NRBC#) DIFFERENTIAL [id number] 06:07:00 Test Item Value Reference Range Interpretation Comments RBC MORPHOLOGY REQUIRED (test code = RBCM) PLATELET ESTIMATE (test code = PLTEST) ADEQUATE PLATELET MORPHOLOGY (test code = NORMAL PLTMORPH) - XR ABDOMEN 1 [id number] 11:55:00 [facility] : 1940 Sex: F Patient Name: JORGE A HORTA Unit No: [id number] EXAMS: CPT CODE: [id number] XR ABDOMEN 1 V 74227 EXAMINATION: - XR ABDOMEN 1 V. LOCATION: [...] Technologist: ANKUR Jalloh, RT(R) Transcrpt Date/Tm/Trnsp: 12/12/2019 (7881) t.SDR.PR7 Orig Print D/T: S: (9986) [facility] NAME: JORGE A HORTA [address] PHYS: Gail Garcia MD R1 [place] [address] : 1940 AGE: 79 SEX: F [facility] NO: [id number] LOC: Z.SI06 A PHONE #: [phone] EXAM DATE: 12/12/2019 STATUS: ADM IN FAX #: [phone] RADIOLOGY NO: PAGE 1 Signed Report PROTHROMBIN [id number] 09:42:00 Test Item Value Reference Range Interpretation [...] eric embolism. 3.0 - 4.5 Comments to Contract Preparer: WITH AM LABS do at 0700CBC W/AUTO [id number] 09:36:00 Test Item Value Reference Range Interpretation [...] 0.00 K/mm3 0.0-0.1 N NRBC#) [facility] [address] METABOLIC [id number] 05:56:00 Test Item Value Reference Range Interpretation [...] 8.0 MG/DL 8.4-10.2 L CA) BASIC METABOLIC [id number] 05:55:00 Test Item Value Reference Range Interpretation [...] code = MG/DL 8.7-9.7 CA) BASIC METABOLIC [id number] 05:53:00 Test Item Value Reference Range Interpretation [...] (test code = CA) MG/DL 8.7-9.7 PROTHROMBIN [id number] 05:23:00 Test Item Value Reference Range Interpretation [...] eric embolism. 3.0 - 4.5 Comments to Contract Preparer: .CBC W/AUTO [id number] 05:15:00 Test Item Value Reference Range Interpretation [...] 0.00 K/mm3 0.0-0.1 N NRBC#) BASIC METABOLIC [id number] 11:19:00 Test Item Value Reference Range Interpretation [...] 7.6 MG/DL 8.4-10.2 L CA) BASIC METABOLIC [id number] 11:18:00 Test Item Value Reference Range Interpretation [...] code = MG/DL 8.7-9.7 CA) BASIC METABOLIC [id number] 11:15:00 Test Item Value Reference Range Interpretation [...] code = CA) MG/DL 8.7-9.7 CBC W/AUTO [id number] 11:05:00 Test Item Value Reference Range Interpretation [...] = 0.00 K/mm3 0.0-0.1 N NRBC#) PROTHROMBIN [id number] 04:49:00 Test Item Value Reference Range Interpretation [...] eric embolism. 3.0 - 4.5 Comments to Contract Preparer: .URINALYSIS [id number] 17:50:00 Test Item Value Reference Range Interpretation [...] code = UACULT) SOURCE OF URINE: VOIDEDUA [id number] 17:50:00 Test Item Value Reference Range Interpretation Comments UA RBC (test code = RBCU) 0-3 RBC/HPF 0-3 UA WBC (test code = XWBCU) 3-5 WBC/HPF 0-5 UA EPITHELIAL CELLS (test code FEW EPI/HPF FEW = EPIU) UA BACTERIA (test code = MODERATE NONE A XBACU) UA YEAST (test code = YEASTU) MODERATE #/HPF NONE A SOURCE OF URINE: VOIDEDURINALYSIS [id number] 17:35:00 Test Item Value Reference Range Interpretation [...] Chk = UACULT) SOURCE OF URINE: VOIDEDUA [id number] 17:35:00 Test Item Value Reference Range Interpretation Comments UA RBC (test code = RBCU) RBC/HPF 0-3 UA WBC (test code = XWBCU) WBC/HPF 0-5 UA EPITHELIAL CELLS (test code = EPI/HPF FEW EPIU) UA BACTERIA (test code = XBACU) NONE SOURCE OF URINE: VOIDEDURINALYSIS [id number] 17:35:00 Test Item Value Reference Range Interpretation [...] Chk = UACULT) SOURCE OF URINE: VOIDEDUA [id number] 17:35:00 Test Item Value Reference Range Interpretation Comments UA RBC (test code = RBCU) RBC/HPF 0-3 UA WBC (test code = XWBCU) WBC/HPF 0-5 UA EPITHELIAL CELLS (test code = EPI/HPF FEW EPIU) UA BACTERIA (test code = XBACU) NONE SOURCE OF URINE: VOIDEDCBC W/AUTO [id number] 05:51:00 Test Item Value Reference Range Interpretation [...] 0-0 H code = NRBC) BASIC METABOLIC [id number] 05:30:00 Test Item Value Reference Range Interpretation [...] code = 7.6 MG/DL 8.4-10.2 L CA) [id number] 05:30:00 Test Item Value Reference Range Interpretation Comments MAGNESIUM (test code = MAG) 2.3 MG/DL 1.6-2.3 N BASIC METABOLIC [id number] 05:24:00 Test Item Value Reference Range Interpretation [...] CALCIUM (test code = MG/DL 8.7-9.7 CA) [id number] 05:24:00 Test Item Value Reference Range Interpretation Comments MAGNESIUM (test code = MAG) MG/DL 1.6-2.3 BASIC METABOLIC [id number] 05:22:00 Test Item Value Reference Range Interpretation [...] CALCIUM (test code = CA) MG/DL 8.7-9.7 [id number] 05:22:00 Test Item Value Reference Range Interpretation Comments MAGNESIUM (test code = MAG) MG/DL 1.6-2.3 BASIC METABOLIC [id number] 05:21:00 Test Item Value Reference Range Interpretation [...] CALCIUM (test code = CA) MG/DL 8.7-9.7 [id number] 05:21:00 Test Item Value Reference Range Interpretation Comments MAGNESIUM (test code = MAG) MG/DL 1.6-2.3 PROTHROMBIN [id number] 05:19:00 Test Item Value Reference Range Interpretation [...] eric embolism. 3.0 - 4.5 Comments to Contract Preparer: .CBC W/AUTO [id number] 05:10:00 Test Item Value Reference Range Interpretation [...] K/mm3 0.0-0.1 N NRBC#) - XR CHEST [id number] 14:16:00 [facility] : 1940 Sex: F Patient Name: JORGE A HORTA Unit No: [id number] EXAMS: CPT CODE: [id number] XR CHEST 1V 49887 CHEST 1 VIEW CLINICAL INFORMATION: atelectasis COMPARISON: [...] AuraAM18 Orig Print D/T: S: 12/08/2019 (1420) [facility] NAME: JORGE A HORTA [address] PHYS: MINMO99 - [place] [address] : 1940 AGE: 79 SEX: F LOC: ZARTIE06 Monty PHONE #: [phone] EXAM DATE: 12/08/2019 STATUS: ADM IN FAX #: [phone] RADIOLOGY NO: PAGE 1 Signed ReportBASIC METABOLIC [id number] 10:18:00 Test Item Value Reference Range Interpretation [...] 7.6 MG/DL 8.4-10.2 L CA) BASIC METABOLIC [id number] 10:11:00 Test Item Value Reference Range Interpretation [...] (test code = MG/DL 8.7-9.7 CA) PROTHROMBIN [id number] 09:52:00 Test Item Value Reference Range Interpretation [...] eric embolism. 3.0 - 4.5 CBC W/AUTO [id number] 09:42:00 Test Item Value Reference Range Interpretation [...] = 0.05 K/mm3 0.0-0.1 N NRBC#) LACTIC [id number] 11:31:00 Test Item Value Reference Range Interpretation Comments LACTIC ACID (test code = LACT) 1.8 MMOL/L 0.7-2.1 N BASIC METABOLIC [id number] 05:33:00 Test Item Value Reference Range Interpretation [...] 7.7 MG/DL 8.4-10.2 L CA) BASIC METABOLIC [id number] 05:12:00 Test Item Value Reference Range Interpretation [...] code = MG/DL 8.7-9.7 CA) BASIC METABOLIC [id number] 05:09:00 Test Item Value Reference Range Interpretation [...] (test code = CA) MG/DL 8.7-9.7 PROTHROMBIN [id number] 04:51:00 Test Item Value Reference Range Interpretation [...] eric embolism. 3.0 - 4.5 Comments to Contract Preparer: .CBC W/AUTO [id number] 04:36:00 Test Item Value Reference Range Interpretation [...] = 0.02 K/mm3 0.0-0.1 N NRBC#) LACTIC [id number] 11:55:00 Test Item Value Reference Range Interpretation Comments LACTIC ACID (test code = LACT) 1.5 MMOL/L 0.7-2.1 N BASIC METABOLIC [id number] 10:02:00 Test Item Value Reference Range Interpretation [...] 7.6 MG/DL 8.4-10.2 L CA) BASIC METABOLIC [id number] 10:01:00 Test Item Value Reference Range Interpretation [...] code = MG/DL 8.7-9.7 CA) BASIC METABOLIC [id number] 10:00:00 Test Item Value Reference Range Interpretation [...] code = CA) MG/DL 8.7-9.7 BASIC METABOLIC [id number] 08:40:00 Test Item Value Reference Range Interpretation [...] BY DALJIT: HEMOLYSISNOTIFIED PATIENT CARE STAFF: VERONICALACTIC [id number] 08:38:00 Test Item Value Reference Range Interpretation Comments LACTIC ACID (test code = LACT) 2.3 MMOL/L 0.7-2.1 H UNABLE TO DRAW BLOOD, REASON: CBNNOTIFIED PATIENT CARE STAFF: EDWARD 12/05/19 AT 2155 BY Kristen Henry RN.BASIC METABOLIC [id number] 08:35:00 Test Item Value Reference Range Interpretation [...] BY DALJIT: HEMOLYSISNOTIFIED PATIENT CARE STAFF: HELGANICAPROTHROMBIN [id number] 08:21:00 Test Item Value Reference Range Interpretation [...] eric embolism. 3.0 - 4.5 Comments to Contract Preparer: .CBC W/AUTO [id number] 06:49:00 Test Item Value Reference Range Interpretation [...] = 0.00 K/mm3 0.0-0.1 N NRBC#) LACTIC [id number] 19:25:00 Test Item Value Reference Range Interpretation Comments LACTIC ACID (test code = LACT) 2.2 MMOL/L 0.7-2.1 H LACTIC [id number] 14:59:00 Test Item Value Reference Range Interpretation Comments LACTIC ACID (test code = LACT) 2.5 MMOL/L 0.7-2.1 H LACTIC [id number] 12:27:00 Test Item Value Reference Range Interpretation Comments LACTIC ACID (test code = LACT) 2.8 MMOL/L 0.7-2.1 H PROTHROMBIN [id number] 09:37:00 Test Item Value Reference Range Interpretation [...] Zachery Kang IS A CBN DRAWComments to Contract Preparer: . BASIC METABOLIC [id number] 09:29:00 Test Item Value Reference Range Interpretation [...] BYZachery Kang IS A CBN DRAWBASIC METABOLIC [id number] 08:58:00 Test Item Value Reference Range Interpretation [...] PATIENT CARE STAFF: PIERRE 12/05/[facility]BN DRAWCBC W/AUTO [id number] 08:51:00 Test Item Value Reference Range Interpretation [...] PATIENT CARE STAFF: CBON 12/05/19 [facility]LavadaPT IS A CBN DRAW- US ABDOMEN [id number] 18:50:00[facility] : 1940 Sex: F Patient Name: JORGE A HORTA Unit No: [id number] EXAMS: CPT CODE: [id number] US ABDOMEN COMPLETE 85876 EXAM: Abdominal ultrasound complete Location: H24 HISTORY: [...] Reported and signed by: Olayinka Weiner M.D. [facility] NAME: JORGE A HORTA [address] PHYS: [place] [address] : 1940 AGE: 79 SEX: F LOC: Z.SI06 A PHONE #: [phone] EXAM DATE: 12/04/2019 STATUS: ADM IN FAX #: [phone] RADIOLOGY NO: PAGE 1 Signed Report (CONTINUED) Patient Name: JORGE A HORTA Unit No: [id number] EXAMS: CPT CODE: [id number] US ABDOMEN COMPLETE 90431 <Continued> CC: Tevin Sutherland MD Technologist: Citlaly Jones RDMS() Transcrpt Date/Tm/Trnsp: 12/04/2019 (1849) t.SDR.AL7 Orig Print D/T: S: 12/04/2019 (1853) [facility] NAME: JORGE A HORTA [address] PHYS: Donna Pino MD [place] [id number] : 1940 AGE: 79 SEX: F LOC: Z.SI06 A PHONE #: [phone] EXAM DATE: 12/04/2019 STATUS: ADM IN FAX #: [phone] RADIOLOGY NO: PAGE 2 Signed Report- CT ABD PELVIS [id number] 18:09:00 [facility] : 1940 Sex: F Patient Name: JORGE A HORTA Unit No: [id number] EXAMS: CPT CODE: [id number] CT ABD PELVIS W/CONT 03662 EXAM: - CT ABD PELVIS W/CONT Location: [...] within the abdominal aorta. No aneurysmal dilatation. [facility] NAME: EFREN HORTAA[address] PHYS: [place] [address] : 1940 AGE: 79 SEX: F LOC: Z.SI06 A PHONE #: [phone] EXAM DATE: 12/04/2019 STATUS: ADM IN FAX #: [phone] RAD #: D/C DT PAGE 1 Signed Report (CONTINUED) Patient Name: JORGE A HORTA Unit No: [id number] EXAMS: CPT CODE: [id number] CT ABD PELVIS W/CONT 30510 <Continued> Lymph nodes:No adenopathy. Peritoneum/retroperitoneum: There is [...] A HORTA [address]erry PHYS: [place] [address] : 1940 AGE: 79 SEX: F LOC: Z.SI06 A PHONE #: [phone] EXAM DATE: 12/04/2019 STATUS: ADM IN FAX #: [phone] RAD #: D/C DT PAGE 2 Signed Report Patient Name: JORGE A HORTA Unit No: [id number] EXAMS: CPT CODE: [id number] CT ABD PELVIS W/CONT 14711 <Continued> Orig Print D/T: S: 12/04/2019 (1811) [facility] NAME: JORGE A HORTA [address] PHYS: Donna Pino MD [place] [id number] : 1940 AGE: 79 SEX: FACCT NO: [id number] LOC: Z.SI06 A PHONE #: [phone] EXAM DATE: 12/04/2019 STATUS: ADM IN FAX #: [phone] RAD #: D/C DT PAGE 3 Signed ReportGLUCOSE BEDSIDE [id number] 17:09:00 Test Item Value Reference Range Interpretation Comments GLUCOSE BEDSIDE TESTING (test code 134 MG/DL 60-99 H = GLUBED) HEART [id number] 13:06:00 Test Item Value Reference Range Interpretation Comments HEART VALVE (test code = HEARTV) RUN DATE: 12/04/19 [facility] PAGE 1 RUN TIME: 1306 Specimen Inquiry RUN USER: INTERFACE PATIENT: JORGE A HORTA LOC: JEF U #: [id number] AGE/SX: 79/F ROOM: [facility] RE11/26/19[facility] DR: Tevin Samuels MD : 38 BED: A DIS: STATUS: ADM IN TLOC: SPEC #: 20:COCHRAN:[id number] RECD: 12/01/19 STATUS: DEVORA ALLEN #: [id number] KEENAN: 11/30/[address] [facility] [address]: Tevin Samuels MD ENTERED: 12/01/19 SP TYPE: HEARTV OTHR DR: Self Referred Home Bryant MD, Robert L MD Mikkilineni, Rajyalakshmi MD Pepper, Gregory S MD Sankaranarayanan, Venkataraj anORDERED: DECAL, SURG PATH LVL 4 CODES: N62839 - AORTIC VALVE, N C39616 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 [address] Home Bryant MD R[address] [place] [address] [place] [address] [place] [address] Ramu Sutherland MD [address] [place], [place] [address] [place] [address] [facility] [address] [place], [place] [address] Taurus Dixon [address] [place] [address] CONTINUED ON NEXT PAGE RUN DATE: 12/04/19 [facility] PAGE 2 RUN TIME: 1306 Specimen Inquiry RUN USER: INTERFACE SPEC #: 20:COCHRAN:[id number] PATIENT: LANEJORGE A #[id number] (Continued) PROCEDURES: DECAL (12/01/19) SURG PATH LVL 4 (12/01/19) TISSUES: A. AORTIC VALVE, NOS - AORTIC VALVE CPT CODES CPT CODE(S): 49886 , 75679 , , , , , FINAL DIAGNOSIS [...] 12/04/19 1306 END OF REPORT COMPREHENSIVE METABOLIC [id number] 13:00:00 Test Item Value Reference Range Interpretation [...] 38-126 N (test code = ALKP) PROTHROMBIN [id number] 12:57:00 Test Item Value Reference Range Interpretation [...] eric embolism. 3.0 - 4.5 COMPREHENSIVE METABOLIC [id number] 12:55:00 Test Item Value Reference Range Interpretation [...] 38-126 (test code = ALKP) CBC W/AUTO [id number] 12:54:00 Test Item Value Reference Range Interpretation [...] 0.00 K/mm3 0.0-0.1 N NRBC#) COMPREHENSIVE METABOLIC [id number] 12:53:00 Test Item Value Reference Range Interpretation [...] code = UNITS/L 38-126 ALKP) GLUCOSE BEDSIDE [id number] 12:46:00 Test Item Value Reference Range Interpretation Comments GLUCOSE BEDSIDE TESTING 111 MG/DL 60-99 H Noti fied Nurse~ (test code = GLUBED) GLUCOSE BEDSIDE [id number] 10:31:00 Test Item Value Reference Range Interpretation Comments GLUCOSE BEDSIDE TESTING (test code 109 MG/DL 60-99 H = GLUBED) GLUCOSE BEDSIDE [id number] 10:31:00 Test Item Value Reference Range Interpretation Comments GLUCOSE BEDSIDE TESTING (test code 112 MG/DL 60-99 H = GLUBED) GLUCOSE BEDSIDE [id number] 10:31:00 Test Item Value Reference Range Interpretation Comments GLUCOSE BEDSIDE TESTING (test code 124 MG/DL 60-99 H = GLUBED) GLUCOSE BEDSIDE [id number] 10:30:00 Test Item Value Reference Range Interpretation Comments GLUCOSE BEDSIDE TESTING (test code 143 MG/DL 60-99 H = GLUBED) - XR CHEST [id number] 08:28:00 [facility] : 1940 Sex: F Patient Name: JORGE A HORTA Unit No: [id number] EXAMS: CPT CODE: [id number] XR CHEST 1V 97091 B2 EXAM: - XR CHEST 1V HISTORY: [...] t.CARLAR.VB7 Orig Print D/T: S: 12/04/2019 (0831) [facility] NAME: JORGE A HORTA [address] PHYS: [place] [address] : 1940 AGE: 79 SEX: F LOC: Z.SI06 A PHONE #: [phone] EXAM DATE: 12/04/2019 STATUS: ADM IN FAX #: [phone] RADIOLOGY NO: PAGE 1 Signed ReportGLUCOSE BEDSIDE [id number] 08:00:00 Test Item Value Reference Range Interpretation Comments GLUCOSE BEDSIDE TESTING (test code 167 MG/DL 60-99 H = GLUBED) GLUCOSE BEDSIDE [id number] 20:26:00 Test Item Value Reference Range Interpretation Comments GLUCOSE BEDSIDE TESTING (test code 140 MG/DL 60-99 H = GLUBED) - XR CHEST [id number] 15:49:00 [facility] : 1940 Sex: F Patient Name: JORGE A HORTA Unit No: [id number] EXAMS: CPT CODE: [id number] XR CHEST 1V 89433 EXAM: - XR CHEST 1V CLINICAL HISTORY: [...] airspace opacity or large pneumothorax. Unchanged cardiomegaly. [id number] Reported and signed by: Jim Rosales MD CC: Tevin Samuels; Ramu Sutherland MD Technologist: Zoltan Low (RT) Transcrpt Date/Tm/Trnsp: 12/03/2019 (2449) t.CARLAR.JW22 Orig Print D/T: S: 12/03/2019 (5204) [facility] NAME: JORGE A HORTA [address] PHYS: [place] [address] : 1940 AGE: 79 SEX: F LOC: Z.SI06 A PHONE #: [phone] EXAM DATE: 12/03/2019 STATUS: ADM IN FAX #: [phone] RADIOLOGY NO: PAGE 1 Signed ReportGLUCOSE BEDSIDE [id number] 11:56:00 Test Item Value Reference Range Interpretation Comments GLUCOSE BEDSIDE TESTING (test code 160 MG/DL 60-99 H = GLUBED) - XR CHEST [id number] 06:30:00 [facility] : 1940 Sex: F Patient Name: JORGE A HORTA Unit No: [id number] EXAMS: CPT CODE: [id number] XR CHEST 1V 04390 Location of dictation: B2 Portable chest one [...] t.SDR.PXC Orig Print D/T: S: 12/03/2019 (632) [facility] NAME: JORGE A HORTA [address] PHYS: [place] [address] : 1940 AGE: 79 SEX: F LOC: Z.SI06 A PHONE #: [phone] EXAM DATE: 12/03/2019 STATUS: ADM IN FAX #: [phone] RADIOLOGY NO: PAGE 1 Signed Report GLUCOSE BEDSIDE [id number] 21:37:00 Test Item Value Reference Range Interpretation Comments GLUCOSE BEDSIDE TESTING (test code 102 MG/DL 60-99 H = GLUBED) GLUCOSE BEDSIDE [id number] 17:38:00 Test Item Value Reference Range Interpretation Comments GLUCOSE BEDSIDE TESTING (test code 155 MG/DL 60-99 H = GLUBED) GLUCOSE BEDSIDE [id number] 12:02:00 Test Item Value Reference Range Interpretation Comments GLUCOSE BEDSIDE TESTING (test code 139 MG/DL 60-99 H = GLUBED) PROTHROMBIN [id number] 10:15:00 Test Item Value Reference Range Interpretation [...] 12/02/19 AT 0715 BY Lawrence LeggetthGLUCOSE BEDSIDE [id number] 08:05:00 Test Item Value Reference Range Interpretation Comments GLUCOSE BEDSIDE TESTING (test code 135 MG/DL 60-99 H = GLUBED) - XR CHEST [id number] 06:21:00 [facility] : 1940 Sex: F Patient Name: JORGE A HORTA Unit No: [id number] EXAMS: CPT CODE: [id number] XR CHEST 1V 71483 HISTORY: Follow-up Location: C3 COMPARISON:12/01/2019 FINDINGS: 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 Endotracheal tube and nasogastric tube have been removed. Metaline- Laura catheter has been removed. No pneumothorax. Mild cardiomegaly persists. Perihilar and retrocardiac left basilar opacity persists. No other changes from prior study. IMPRESSION: 1. Interval extubation and interval removal of Metaline-Laura catheter. 2. No pneumothorax. No other changes from prior study. at 0621 Reported and signed by: Donna Foy MD CC: Tevin Samuels; Ramu Sutherland MD Technologist: Yobani Elias, RT(R) Transcrpt Date/Tm/Trnsp: 12/02/2019 (06) AuraRXC2 Orig Print D/T: S: 12/02/2019(624) [facility] NAME: JORGE A HORTA [id number] PHYS: [place] [address] : 1940 AGE: 79 SEX: F LOC: Z.SI06 A PHONE #: [phone] EXAM DATE: 12/02/2019 STATUS: ADM IN FAX #: [phone] RADIOLOGY NO: PAGE 1 Signed ReportGLUCOSE BEDSIDE [id number] 19:57:00 Test Item Value Reference Range Interpretation Comments GLUCOSE BEDSIDE TESTING (test code 116 MG/DL 60-99 H = GLUBED) GLUCOSE BEDSIDE [id number] 18:10:00 Test Item Value Reference Range Interpretation Comments GLUCOSE BEDSIDE TESTING (test code 128 MG/DL 60-99 H = GLUBED) GLUCOSE BEDSIDE [id number] 17:09:00 Test Item Value Reference Range Interpretation Comments GLUCOSE BEDSIDE TESTING (test code 120 MG/DL 60-99 H = GLUBED) GLUCOSE BEDSIDE [id number] 15:48:00 Test Item Value Reference Range Interpretation Comments GLUCOSE BEDSIDE TESTING (test code 122 MG/DL 60-99 H = GLUBED) GLUCOSE BEDSIDE [id number] 14:09:00 Test Item Value Reference Range Interpretation Comments GLUCOSE BEDSIDE TESTING (test code 117 MG/DL 60-99 H = GLUBED) GLUCOSE BEDSIDE [id number] 13:23:00 Test Item Value Reference Range Interpretation Comments GLUCOSE BEDSIDE TESTING (test code 112 MG/DL 60-99 H = GLUBED) GLUCOSE BEDSIDE [id number] 12:26:00 Test Item Value Reference Range Interpretation Comments GLUCOSE BEDSIDE TESTING (test code 121 MG/DL 60-99 H = GLUBED) GLUCOSE BEDSIDE [id number] 11:12:00 Test Item Value Reference Range Interpretation Comments GLUCOSE BEDSIDE TESTING (test code 133 MG/DL 60-99 H = GLUBED) GLUCOSE BEDSIDE [id number] 10:24:00 Test Item Value Reference Range Interpretation Comments GLUCOSE BEDSIDE TESTING (test code 139 MG/DL 60-99 H = GLUBED) GLUCOSE BEDSIDE [id number] 09:26:00 Test Item Value Reference Range Interpretation Comments GLUCOSE BEDSIDE TESTING (test code 139 MG/DL 60-99 H = GLUBED) GLUCOSE BEDSIDE [id number] 08:31:00 Test Item Value Reference Range Interpretation Comments GLUCOSE BEDSIDE TESTING (test code 138 MG/DL 60-99 H = GLUBED) - XR CHEST [id number] 07:58:00 [facility] : 1940 Sex: F Patient Name: JORGE A HORTA Unit No: [id number] EXAMS: CPT CODE: [id number] XR CHEST 1V 08858 B2 EXAM: - XR CHEST 1V HISTORY: S/P CABG COMPARISON: 11/30/2019 FINDINGS: Endotracheal tube, nasogastric tube, Metaline-Laura catheter and right subclavian central line in [...] AuraVB7 Orig Print D/T: S: 12/01/2019 (0801) [facility] JORGE A HORTA [id number] [address] PHYS: [place] [address] : 1940 AGE: 79 SEX: F LOC: [id number] A PHONE #: [phone] EXAM DATE: 12/01/2019 STATUS: ADM IN FAX #: [phone] RADIOLOGY NO: PAGE 1 Signed ReportGLUCOSE BEDSIDE [id number] 07:12:00 Test Item Value Reference Range Interpretation Comments GLUCOSE BEDSIDE TESTING (test code 137 MG/DL 60-99 H = GLUBED) GLUCOSE BEDSIDE [id number] 06:21:00 Test Item Value Reference Range Interpretation Comments GLUCOSE BEDSIDE TESTING (test code 141 MG/DL 60-99 H = GLUBED) GLUCOSE BEDSIDE [id number] 03:09:00 Test Item Value Reference Range Interpretation Comments GLUCOSE BEDSIDE TESTING (test code 158 MG/DL 60-99 H = GLUBED) GLUCOSE BEDSIDE [id number] 02:23:00 Test Item Value Reference Range Interpretation Comments GLUCOSE BEDSIDE TESTING (test code 149 MG/DL 60-99 H = GLUBED) GLUCOSE BEDSIDE [id number] 23:56:00 Test Item Value Reference Range Interpretation Comments GLUCOSE BEDSIDE TESTING (test code 171 MG/DL 60-99 H = GLUBED) GLUCOSE BEDSIDE [id number] 23:08:00 Test Item Value Reference Range Interpretation Comments GLUCOSE BEDSIDE TESTING (test code 163 MG/DL 60-99 H = GLUBED) GLUCOSE BEDSIDE [id number] 21:54:00 Test Item Value Reference Range Interpretation Comments GLUCOSE BEDSIDE TESTING (test code 164 MG/DL 60-99 H = GLUBED) BASIC METABOLIC [id number] 21:36:00 Test Item Value Reference Range Interpretation [...] code = 8.2 MG/DL 8.4-10.2 L CA) [id number] 21:36:00 Test Item Value Reference Range Interpretation Comments MAGNESIUM (test code = 6.7 MG/DL 1.6-2.3 BERNABE Carr& MAG) READBACK ON AT 2136 BY Dario Maria BASIC METABOLIC [id number] 21:33:00 Test Item Value Reference Range Interpretation [...] code = 8.2 MG/DL 8.4-10.2 L CA) [id number] 21:33:00 Test Item Value Reference Range Interpretation Comments MAGNESIUM (test code = MAG) MG/DL 1.6-2.3 PROTHROMBIN [id number] 21:31:00 Test Item Value Reference Range Interpretation [...] eric embolism. 3.0 - 4.5 Comments to Contract Preparer: PEDIATRIC TUBES!Comments to Contract Preparer: PEDIATRIC TUBESPTT [id number] 21:31:00 Test Item Value Reference Range Interpretation Comments PTT ACTIVATED (test code = APTT) 21.8 SECONDS 25.1-36.5 L Comments to Contract Preparer: PEDIATRIC TUBES!Comments to Contract Preparer: PEDIATRIC TUBESBASIC METABOLIC [id number] 21:30:00 Test Item Value Reference Range Interpretation [...] CALCIUM (test code = CA) MG/DL 8.7-9.7 [id number] 21:30:00 Test Item Value Reference Range Interpretation Comments MAGNESIUM (test code = MAG) MG/DL 1.6-2.3 CBC W/AUTO [id number] 21:24:00 Test Item Value Reference Range Interpretation [...] K/mm3 0.0-0.1 N NRBC#) - XR CHEST [id number] 20:54:00 [facility] 1940 Sex: F Patient Name: JORGE A HORTA Unit No: [id number] EXAMS: CPT CODE: [id number] XR CHEST 1V 71678 EXAM: - XR CHEST 1V LOCATION: C3 HISTORY: S/P CABG COMPARISON: 11/29/2019 FINDINGS: Single view of the chest. Right subclavian catheter tip overlies the cubital junction. Metaline-Laura catheter tip overlies main pulmonary trunk. Endotracheal [...] t.SDR.HV2 Orig Print D/T: S: 11/30/2019 (2056) [facility] NAME: JORGE A HORTA [id number] PHYS: [place] [address] : 1940 AGE: 79 SEX: F LOC: Z.SI06 A PHONE #: [phone] EXAM DATE: 11/30/2019 STATUS: ADM IN FAX #: [phone] RADIOLOGY NO: PAGE 1 Signed ReportGLUCOSE BEDSIDE [id number] 20:17:00 Test Item Value Reference Range Interpretation Comments GLUCOSE BEDSIDE TESTING (test code 206 MG/DL 60-99 H = GLUBED) BASIC METABOLIC [id number] 19:45:00 Test Item Value Reference Range Interpretation [...] 7.7 MG/DL 8.4-10.2 L CA) BASIC METABOLIC [id number] 19:42:00 Test Item Value Reference Range Interpretation [...] (test code = MG/DL 8.7-9.7 CA) PROTHROMBIN [id number] 19:42:00 Test Item Value Reference Range Interpretation [...] syste eric embolism. 3.0 - 4.5 PTT [id number] 19:42:00 Test Item Value Reference Range Interpretation Comments PTT ACTIVATED (test code = APTT) 26.3 SECONDS 25.1-36.5 N BASIC METABOLIC [id number] 19:39:00 Test Item Value Reference Range Interpretation [...] code = CA) MG/DL 8.7-9.7 BASIC METABOLIC [id number] 19:38:00 Test Item Value Reference Range Interpretation [...] code = CA) MG/DL 8.7-9.7 CBC W/AUTO [id number] 19:32:00 Test Item Value Reference Range Interpretation [...] code = 0.00 K/mm3 0.0-0.1 N NRBC#) [id number] 18:06:00 Test Item Value Reference Range Interpretation Comments POTASSIUM (test code = K) 5.9 MMOL/L 3.5-5.1 H [id number] 18:06:00 Test Item Value Reference Range Interpretation Comments GLUCOSE (test code = GLU) 146 MG/DL 74-106 H [id number] 18:03:00 Test Item Value Reference Range Interpretation Comments POTASSIUM (test code = K) 5.9 MMOL/L 3.5-5.1 H [id number] 18:03:00 Test Item Value Reference Range Interpretation Comments GLUCOSE (test code = GLU) MG/DL 74-106 [id number] 17:57:00 Test Item Value Reference Range Interpretation Comments HEMOGLOBIN (test code = HGB) 7.2 G/DL 11.2-14.9 L [id number] 17:57:00 Test Item Value Reference Range Interpretation Comments HEMATOCRIT (test code = HCT) 22.9 % 33.2-43.5 L DIFFERENTIAL [id number] 17:03:00 Test Item Value Reference Range Interpretation Comments RBC MORPHOLOGY REQUIRED (test code = NORMAL RBCM) HYPERSEGMENTED POLYS (test code = FEW NONE HYPP) PLATELET ESTIMATE (test code = ADEQUATE ADEQUATE PLTEST) PLATELET MORPHOLOGY (test code = NORMAL NORMAL PLTMORPH) [id number] 17:03:00 Test Item Value Reference Range Interpretation Comments HEMOGLOBIN (test code = 4.5 G/DL 11.2-14.9 LL CALL ED TO TIFFANY Patricia HGB) NANOELECTRONICS ENGINEER & READBAC K ON 11/30/19 AT 162 5 BY Malachi Santamaria [id number] 17:03:00 Test Item Value Reference Range Interpretation Comments HEMATOCRIT (test code = 15.0 % 33.2-43.5 LL CALL ED TO FANCINA OR HCT) RN & READBACK O N 11/30/19 AT 162 5 BY Malachi Santamaria [id number] 16:36:00 Test Item Value Reference Range Interpretation Comments POTASSIUM (test code = K) MMOL/L 3.5-5.1 [id number] 16:36:00 Test Item Value Reference Range Interpretation Comments GLUCOSE (test code = GLU) 138 MG/DL 74-106 H [id number] 16:36:00 Test Item Value Reference Range Interpretation Comments POTASSIUM (test code = K) 5.0 MMOL/L 3.5-5.1 N [id number] 16:36:00 Test Item Value Reference Range Interpretation Comments GLUCOSE (test code = GLU) 138 MG/DL 74-106 H DIFFERENTIAL [id number] 16:28:00 Test Item Value Reference Range Interpretation Comments RBC MORPHOLOGY REQUIRED (test code = RBCM) PLATELET ESTIMATE (test code = PLTEST) ADEQUATE PLATELET MORPHOLOGY (test code = NORMAL PLTMORPH) [id number] 16:28:00 Test Item Value Reference Range Interpretation Comments HEMOGLOBIN (test code = 4.5 G/DL 11.2-14.9 LL CALL ED TO FANCINA B HGB) NANOELECTRONICS ENGINEER & READBASelin K ON 11/30/19 AT 162 5 BY Malachi Santamaria [id number] 16:28:00 Test Item Value Reference Range Interpretation Comments HEMATOCRIT (test code = 15.0 % 33.2-43.5 LL CALL ED TO FANCINA OR HCT) RN & READBACK O N 11/30/19 AT 162 5 BY Malachi Santamaria DIFFERENTIAL [id number] 16:28:00 Test Item Value Reference Range Interpretation Comments RBC MORPHOLOGY REQUIRED (test code = RBCM) PLATELET ESTIMATE (test code = PLTEST) ADEQUATE PLATELET MORPHOLOGY (test code = NORMAL PLTMORPH) [id number] 16:28:00 Test Item Value Reference Range Interpretation Comments HEMOGLOBIN (test code = 4.5 G/DL 11.2-14.9 LL CALL ED TO FANCINA B HGB) NANOELECTRONICS ENGINEER & READBAC K ON 11/30/19 AT 162 5 BY Malachi Santamaria [id number] 16:28:00 Test Item Value Reference Range Interpretation Comments HEMATOCRIT (test code = 15.0 % 33.2-43.5 LL CALL ED TO FANCINA OR HCT) RN & READBACK O N 11/30/19 AT 162 5 BY Malachi Santamaira BASIC METABOLIC [id number] 13:26:00 Test Item Value Reference Range Interpretation [...] CA) PLEASE CALL RESULTS TO PHONE #: [phone] [facility] METABOLIC [id number] 13:25:00 Test Item Value Reference Range Interpretation [...] CA) PLEASE CALL RESULTS TO PHONE #: [phone] [facility] METABOLIC [id number] 13:22:00 Test Item Value Reference Range Interpretation [...] 8.7-9.7 PLEASE CALL RESULTS TO PHONE #: [phone] [facility] METABOLIC [id number] 13:22:00 Test Item Value Reference Range Interpretation [...] 8.7-9.7 PLEASE CALL RESULTS TO PHONE #: [phone] [facility] W/AUTO [id number] 13:13:00 Test Item Value Reference Range Interpretation [...] NRBC#) PLEASE CALL RESULTS TO PHONE #: [phone] [employer] 12 AB [id number] 18:12:00 Test Item Value Reference Range Interpretation Comments HIV 1 2 COMBO AG/AB SCREEN AB/AG NON REACTIVE NONREACTIVE (test code = SYI19HYRAE) PROTHROMBIN [id number] 17:56:00 Test Item Value Reference Range Interpretation [...] syste eric embolism. 3.0 - 4.5 PTT [id number] 17:56:00 Test Item Value Reference Range Interpretation Comments PTT ACTIVATED (test code = APTT) 35.0 SECONDS 25.1-36.5 N PLT RESPONSE TO [id number] 17:56:00 Test Item Value Reference Range Interpretation [...] had fewer a dverse events. COMPREHENSIVE METABOLIC [id number] 17:40:00 Test Item Value Reference Range Interpretation [...] in the last 72 hours- XR CHEST [id number] 17:32:00[facility] : 1940 Sex: F Patient Name: JORGE A HORTA Unit No: [id number] EXAMS: CPT CODE: [id number] XR CHEST 1V 09385 EXAM: - XR CHEST 1V LOCATION: C3 [...] t.SDR.HV2 Orig Print D/T: S: 11/29/2019 (1735) [facility] NAME: JORGE A HORTA [id number] PHYS: [place] [address] : 1940 AGE: 79 SEX: F LOC: Z.355 A PHONE #: [phone] EXAM DATE: 11/29/2019 STATUS: ADM IN FAX #: [phone] RADIOLOGY NO: PAGE 1 Signed ReportCOMPREHENSIVE METABOLIC [id number] 17:29:00 Test Item Value Reference Range Interpretation [...] done in the last 72 hoursCOMPREHENSIVE METABOLIC [id number] 17:28:00 Test Item Value Reference Range Interpretation [...] done in the last 72 hoursGLYCOSYLATED HEMOGLOBIN [id number] 17:27:00 Test Item Value Reference Range Interpretation [...] H (test code = MBG) COMPREHENSIVE METABOLIC [id number] 17:26:00 Test Item Value Reference Range Interpretation [...] done in the last 72 hoursCOMPREHENSIVE METABOLIC [id number] 17:25:00 Test Item Value Reference Range Interpretation [...] syste eric embolism. 3.0 - 4.5 PTT [id number] 17:24:00 Test Item Value Reference Range Interpretation Comments PTT ACTIVATED (test code = APTT) 35.0 SECONDS 25.1-36.5 N PLT RESPONSE TO [id number] 17:24:00 Test Item Value Reference Range Interpretation Comments PLT RESPONSE TO PLAVIX (test code = PRU 194-418 PLAVRES) CBC W/AUTO [id number] 17:14:00 Test Item Value Reference Range Interpretation [...] 112 MG/DL 60-99 H = GLUBED) T4 [id number] 17:37:00 Test Item Value Reference Range Interpretation Comments T4 FREE (test code = T4F) 1.3 NG/DL 0.78-2.19 N - CT ANGIO NECK W WO [id number] 17:37:00 [facility] : 1940 Sex: F Patient Name: JORGE A HORTA Unit No: [id number] EXAMS: CPT CODE: [id number] CT [place]GIO [place]K [place] CONT [address] Examination: CTA head and neck with contrast. [...] referable to the left posterior cerebral artery [facility] NAME: JORGE A HORTA [id number] PHYS: [id number] Ranjana De Los Santos MD [address] [place] [address] : 1940 AGE: 79 SEX: F LOC: Z.355 A PHONE #: [phone] EXAM DATE: 11/27/2019 STATUS: ADM IN FAX #: [phone] RAD #: D/C DT PAGE 1 Signed Report (CONTINUED) Patient Name: JORGE A HORTA Unit No: [id number] EXAMS: CPT CODE: [id number] CT ANGIO [place]ECK W [place] CONT [address] <Continued> circulation conventional angiography is recommended for further evaluation. 4. Otherwise unremarkable CTA examination of brain. at 1737 Reported and signed by: Anthony Boyer MD CC: Ramu Sutherland MD; Rashid Son MD; Ranjana Mcclelland MD Technologist: Ana Maria Tovar RT (R) (CT) CTDI: DLP: Trnscrpt: 11/27/2019 (1737) [email or web address] [facility] NAME: JORGE A HORTA PHYS: [place] [address] : 1940 AGE: 79 SEX: F LOC: Z.355 A PHONE #: [phone] EXAM DATE: 11/27/2019 STATUS: ADM IN FAX #: [phone] RAD #: D/C DT PAGE 2 Signed Report Patient Name: JORGE A HORTA Unit No: [id number] EXAMS: CPT CODE: [id number] CT [place] CONT [address] <Continued> Orig Print D/T: S: 11/27/2019 (1740) [facility] NAME: JORGE A HORTA PHYS: Ranjana Scott MD [place] [id number] : 1940 AGE: 79 SEX: F LOC: Z.355 A PHONE #: [phone] EXAM DATE: 11/27/2019 STATUS: ADM IN FAX #: [phone] RAD #: D/C DT PAGE 3 Signed Report- CT ANGIO [id number] 17:37:00 [facility] : 1940 Sex: F Patient Name: JORGE A HORTA Unit No: [id number] EXAMS: CPT CODE: [id number] CT ANGIO HEAD [address] Examination: CTA head and neck with contrast. [...] referable to the left posterior cerebral artery [facility] NAME: JORGE A HORTA [id number] PHYS: ZHURanjana Sequeira MD [address] [place] [address] : 1940 AGE: 79 SEX: F LOC: Z.355 A PHONE #: [phone] EXAM DATE: 11/27/2019 STATUS: ADM IN FAX #: [phone] RAD #: D/C DT PAGE 1 Signed Report (CONTINUED) Patient Name: JORGE A HORTA Unit No: [id number] EXAMS: CPT CODE: [id number] CT ANGIO HEAD [address] <Continued> circulation conventional angiography is recommended for further evaluation. 4. Otherwise unremarkable CTA examination of brain. at 1737 Reported and signed by: Anthony Boyer MD CC: Ramu Sutherland MD; Rashid Son MD; Ranjana Mcclelland MD Technologist: Ana Maria Tovar RT (R) (CT) CTDI: DLP: Trnscrpt: 11/27/2019 (1737) t.SDR.VR5 [facility] NAME: JORGE A HORTA [id number] PHYS: [id number] Ranjana De Los Santos MD [address] [place] [address] : 1940 AGE: 79 SEX: F LOC: Z.355 A PHONE #: [phone] EXAM DATE: 11/27/2019 STATUS: ADM IN FAX #: [phone] RAD #: D/C DT PAGE 2 Signed Report Patient Name: JORGE A HORTA Unit No: [id number] EXAMS: CPT CODE: [id number] CT ANGIO HEAD [address] <Continued> Orig Print D/T: S: 11/27/2019 (1740) [facility] NAME: JORGE A HORTA [address] PHYS: [id number] Ranjana De Los Santos MD [address] [place] [address] : 1940 AGE: 79 SEX: F LOC: Z.355 A PHONE #: [phone] EXAM DATE: 11/27/2019 STATUS: ADM IN FAX #: [phone] RAD #: D/C DT PAGE 3 Signed ReportTSH REFLEX TO [id number] 17:02:00 Test Item Value Reference Range Interpretation Comments TSH REFLEX TO FT4 0.183 MIU/L 0.65-4.68 L Please be aware that (test code = bias results fo r TSH TSHREFLEX) may occur forpa tient who are taking Biotin supplements. C REACTIVE [id number] 16:34:00 Test Item Value Reference Range Interpretation Comments C REACTIVE PROTEIN (test code = 1.00 MG/DL 0.00-9.99 N CRP) - MRI BRAIN W/O [id number] 16:27:00 [facility] : 1940 Sex: F Patient Name: JORGE A HORTA Unit No: [id number] EXAMS: CPT CODE: [id number] MRI BRAIN W/O CONTRAST 58107 B2 - MRI BRAIN W/O CONTRAST HISTORY: [...] Dorys.VB7 Orig Print D/T: S: 11/27/2019 (1630) [facility] NAME: JORGE A HORTA [address] PHYS: [place] [address] : 1940 AGE: 79 SEX: F LOC: Z.355 A PHONE #: [phone] EXAM DATE: 11/27/2019 STATUS: ADM IN FAX #: [phone] RADIOLOGY NO: PAGE 1 Signed ReportGLUCOSE BEDSIDE [id number] 16:17:00 Test Item Value Reference Range Interpretation Comments GLUCOSE BEDSIDE TESTING (test code 118 MG/DL 60-99 H = GLUBED) BASIC METABOLIC [id number] 06:33:00 Test Item Value Reference Range Interpretation [...] 0-189 mg/dL VERY HIGH...... ...>/= 190 mg/dL [id number] 06:33:00 Test Item Value Reference Range Interpretation Comments MAGNESIUM (test code = MAG) 2.0 MG/DL 1.6-2.3 N BASIC METABOLIC [id number] 06:22:00 Test Item Value Reference Range Interpretation [...] LDL (test MG/DL 0-99 code = LDL) [id number] 06:22:00 Test Item Value Reference Range Interpretation Comments MAGNESIUM (test code = MAG) 2.0 MG/DL 1.6-2.3 N BASIC METABOLIC [id number] 06:21:00 Test Item Value Reference Range Interpretation [...] LDL (test code = LDL) MG/DL 0-99 [id number] 06:21:00 Test Item Value Reference Range Interpretation Comments MAGNESIUM (test code = MAG) MG/DL 1.6-2.3 BASIC METABOLIC [id number] 06:18:00 Test Item Value Reference Range Interpretation [...] LDL (test code = LDL) MG/DL 0-99 [id number] 06:18:00 Test Item Value Reference Range Interpretation Comments MAGNESIUM (test code = MAG) MG/DL 1.6-2.3 GLYCOSYLATED HEMOGLOBIN [id number] 06:07:00 Test Item Value Reference Range Interpretation [...] 70-110 H (test code = MBG) PROTHROMBIN [id number] 06:03:00 Test Item Value Reference Range Interpretation [...] syste eric embolism. 3.0 - 4.5 PTT [id number] 06:03:00 Test Item Value Reference Range Interpretation Comments PTT ACTIVATED (test code = APTT) 29.9 SECONDS 25.1-36.5 N CBC W/AUTO [id number] 05:52:00 Test Item Value Reference Range Interpretation [...] 0.00 K/mm3 0.0-0.1 N NRBC#) B-TYPE NATRIURETIC [id number] 21:04:00 Test Item Value Reference Range Interpretation Comments B-TYPE NATRIURETIC PEPTIDE (test 205.0 PG/ML 0-100 H code = BNP) COMPREHENSIVE METABOLIC [id number] 21:03:00 Test Item Value Reference Range Interpretation [...] UNITS/L 38-126 N (test code = ALKP) [id number] 21:03:00 Test Item Value Reference Range Interpretation Comments TROPONIN-I (test code = TROPI) 0.043 NG/ML 0.012-0.033 H COMPREHENSIVE METABOLIC [id number] 20:53:00 Test Item Value Reference Range Interpretation [...] UNITS/L 38-126 N (test code = ALKP) [id number] 20:53:00 Test Item Value Reference Range Interpretation Comments TROPONIN-I (test code = TROPI) NG/ML 0.0-0.045 COMPREHENSIVE METABOLIC [id number] 20:52:00 Test Item Value Reference Range Interpretation [...] UNITS/L 38-126 N (test code = ALKP) [id number] 20:52:00 Test Item Value Reference Range Interpretation Comments TROPONIN-I (test code = TROPI) NG/ML 0.0-0.045 COMPREHENSIVE METABOLIC [id number] 20:51:00 Test Item Value Reference Range Interpretation [...] PHOSPHATASE UNITS/L 38-126 (test code = ALKP) [id number] 20:51:00 Test Item Value Reference Range Interpretation Comments TROPONIN-I (test code = TROPI) NG/ML 0.0-0.045 COMPREHENSIVE METABOLIC [id number] 20:49:00 Test Item Value Reference Range Interpretation [...] PHOSPHATASE (test code = UNITS/L 38-126 ALKP) [id number] 20:49:00 Test Item Value Reference Range Interpretation Comments TROPONIN-I (test code = TROPI) NG/ML 0.0-0.045 CBC W/AUTO [id number] 20:40:00 Test Item Value Reference Range Interpretation [...] 0.00 K/mm3 0.0-0.1 N NRBC#) ARTERIAL BLOOD [id number] 10:23:00 Test Item Value Reference Range Interpretation [...] FIO2 (test code = COHBGFFIO2) 21 % PaO2/[id number] 10:23:00 Test Item Value Reference Range Interpretation Comments PaO2/FiO2 (test code = SUA8PUN6) mm/Hg ARTERIAL BLOOD [id number] 10:23:00 Test Item Value Reference Range Interpretation [...] FIO2 (test code = COHBGFFIO2) 21 % PaO2/[id number] 10:23:00 Test Item Value Reference Range Interpretation Comments PaO2/FiO2 (test code = BHB3VSD3) 380.00 mm/Hg VENOUS BLOOD [id number] 10:23:00 Test Item Value Reference Range Interpretation [...] (test code LINE = SITEV) BASIC METABOLIC [id number] 08:33:00 Test Item Value Reference Range Interpretation [...] 0-189 mg/dL VERY HIGH...... ...>/= 190 mg/dL [id number] 08:33:00 Test Item Value Reference Range Interpretation Comments MAGNESIUM (test code = MAG) 2.1 MG/DL 1.6-2.3 N BASIC METABOLIC [id number] 07:01:00 Test Item Value Reference Range Interpretation [...] LDL (test MG/DL 0-99 code = LDL) [id number] 07:01:00 Test Item Value Reference Range Interpretation Comments MAGNESIUM (test code = MAG) 2.1 MG/DL 1.6-2.3 N PROTHROMBIN [id number] 06:54:00 Test Item Value Reference Range Interpretation [...] syste eric embolism. 3.0 - 4.5 PTT [id number] 06:54:00 Test Item Value Reference Range Interpretation Comments PTT ACTIVATED (test code = APTT) 30.7 SECONDS 25.1-36.5 N CBC W/AUTO [id number] 06:43:00 Test Item Value Reference Range Interpretation [...] 0.0-0.1 N NRBC#) COVID 19 Asymptomatic IH [id number] 05:46:00 Test Item Value Reference Range Interpretation [...]
--- NOTE | 2020-06-10 18:48 | RAD REPORT ---
EXAM DESCRIPTION: CT - Head Brain Wo Cont - 06/10/2020 6:24 pm CLINICAL HISTORY: CONFUSED COMPARISON: Head Brain Wo Cont dated 09/29/2018Head Brain Wo Cont dated 12/02/2015 TECHNIQUE: Axial 5 mm thick images of the head were obtained without IV contrast. All CT scans are performed using dose optimization technique as appropriate and may include automated exposure control or mA/KV adjustment according to patient size. FINDINGS: No intracranial hemorrhage, mass, edema or shift of mid-line structures. No acute infarcti on changes seen. No abnormal extra-axial fluid collections. Atrophy and chronic ischemic change, mode rate in severity, have progressed from 2016. Mastoid air cells and visualized portions of the paranasal sinuses are clear. No acute bony findings. IMPRESSION: Negative non-contrast CT head examination for acute findings. Atrophy and chronic ischemic change, moderate in severity, have progressed from 2016.
[2020-06-10 19:03] LABS: Absolute Lymphocytes (CBC) 2.1 K/uL (0.7-4.9); Basophils % 0.6 % (0-1.3); Hematocrit 31.7 % (36.0-45.0); Lymphocytes % 15.6 % (15.3-44.8); MPV 8.1 fL (7.6-11.3); RBC Red Blood Cell Count 3.38 M/uL (3.86-4.86)
[2020-06-10] MEDS ORDERED: ONDANSETRON 4 MG/2 ML VIAL ONE (19:11)
[2020-06-10] MEDS ORDERED: MORPHINE 4 MG/ML SYR ONE (19:11)
[2020-06-10] MEDS ORDERED: METRONIDAZOLE 500mg IVPB 500 MG/100 ML BAG IV ONE (19:12)
[2020-06-10] MEDS ORDERED: CEFTRIAXONE/SWI 1gm 1 GM/10 ML SYR ONE (19:12)
[2020-06-10] MEDS ORDERED: NA CHLORIDE 0.9% 1,000 ML ONE ×2 (19:12→22:00)
[2020-06-10 20:05] LABS: Protime INR 2.22
[2020-06-10 20:12] LABS: Albumin 3.6 g/dL (3.4-5.0); Bilirubin Direct 0.2 mg/dL (0-0.2); Bilirubin Total 0.3 mg/dL (0.2-1.0); Protein, Total 8.4 g/dL (6.4-8.2)
[2020-06-10 20:17] LABS: Potassium 5.6 mmol/L (3.5-5.1)
[2020-06-10 20:31] LABS: Troponin (Emerg Dept Use Only) < 0.02 ng/mL (0.0-0.045)
--- NOTE | 2020-06-10 20:55 | RAD REPORT ---
EXAM DESCRIPTION: CT - Abdomen Pelvis Wo Contrast - 06/10/2020 8:31 pm CLINICAL HISTORY: ABD PAIN COMPARISON: [place] Protocol dated 04/22/2020; Abdomen Pelvis Wo Contrast dated 02/02/2019CT April TECHNIQUE: Axial [address] imaging of the abdomen and pelvis was performed without IV contrast. No IV contrast was given because of allergy, abnormal renal function, patient refusal or physician re quest. No oral contrast All CT scans are performed using dose optimization technique as appropriate and may include automated exposure control or mA/KV adjustment according to patient size. FINDINGS: No suspicious findings in the lung bases. The liver, spleen and pancreas show no suspicious findings on non-contrast imaging. Cholecystectomy c lips are present. No biliary tree dilatation. No hydronephrosis or suspicious renal mass. No significant adrenal finding. Isodense renal masses an d pyelonephritis cannot be excluded in the absence of IV contrast. The urinary bladder is without sig nificant finding. Uterus is absent or atrophic. Ovaries are atrophic or absent as well. No adnexal ma ss. No gastric dilatation. No gastric wall thickening seen. Antrum is accentuated by absence of intralumi nal content. No significant change from April 22. No dilated large or small bowel. No acute finding a t the right lower abdomen ostomy site. No abscess seen. Midline ventral wound is present with packing material in place. No new mass or abnormal fluid collections seen. No free air, free fluid or inflammatory stranding. No mass or bulky lymphadenopathy. Disc and bone degenerative changes are present. A large 3.5 centimeter diameter soft tissue attenuation mass is present in the right groin in proximi ty to the vasculature. This is similar to the April 22 study. Previously detailed differential remain s. Hematoma, lymph node and pseudoaneurysm are all possibilities. IMPRESSION: Non-contrast enhanced CT abdomen and pelvis imaging show no acute or emergent finding. No clear change to the 3.5 centimeter right groin mass. Differential considerations include hematoma, lymph node and pseudoaneurysm. Overall, no significant change from April 22 Full assessment is limited is the absence of IV contrast.
--- NOTE | 2020-06-10 21:14 | ER ---
Nurse's Notes [facility] Name: Claudette Sherman Age: 79 yrs Sex: Female : 1940 Arrival Date: 06/10/2020 Time: 14:36 Bed 7 Private MD: Diagnosis: Dehydration;Acute kidney failure, unspecified;Acidosis;Hyperkalemia;Altered mental status, unspecified Presentation: 06/10 15:44 Chief complaint: Patient states: weakness, nausea, dizziness and abdominal pain for a em couple a days, has also noticed she has been mumbling her words since last night but states its worse today, denies fever, reports overall generalized weakness at home. Coronavirus screen: Client denies travel out of the [place] in the last 14 days. Ebola Screen: Patient negative for fever greater than or equal to 101.5 degrees Fahrenheit, and additional compatible Ebola Virus Disease symptoms Patient denies exposure to infectious person. Patient denies travel to an Ebola-affected area in the 21 days before illness onset. No symptoms or risks identified at this time. No acute neurological deficit is noted. Initial Sepsis Screen: Does the patient meet any 2 criteria? No. Patient's initial sepsis screen is negative. Does the patient have a suspected source of infection? No. Patient's initial sepsis screen is negative. Risk Assessment: Do you want to hurt yourself or someone else? Patient reports no desire to harm self or others. Onset of symptoms was June 09, 2020. 15:44 Method Of Arrival: Wheelchair em 15:44 Acuity: LIZ 3 em Historical: - Allergies: 15:50 Codeine; em 15:50 Morphine; em - PMHx: 15:50 High Cholesterol; Hypertension; Hypothyroidism; open wound on middle abdomen; sacrum em wound; - PSHx: 15:50 CABG; Colostomy; em - Immunization history:: Adult Immunizations up to date. - Social history:: Smoking status: Patient denies any tobacco usage or history of. - Family history:: not pertinent. - Hospitalizations: : No recent hospitalization is reported. Screenin:49 Abuse screen: Denies threats or abuse. Denies injuries from another. Nutritional hb screening: No deficits noted. Tuberculosis screening: No symptoms or risk factors identified. Fall Risk Total Bowman Fall Scale indicates High Risk Score (45 or more points). Fall prevention measures have been instituted. Side Rails Up X 2 Frequent Obs/Assessments Occuring Family Present and informed to notify staff if the need to leave the bedside As available patient and family educated on Fall Prevention Program and Strategies. Assessment: 18:49 General: Appears in no apparent distress. Behavior is calm, cooperative. Pain: Denies hb pain. Pain:. Neuro: Level of Consciousness is awake, alert, obeys commands, Oriented to person, place, time, situation. Cardiovascular: Patient's skin is warm and dry. Respiratory: Respiratory effort is even, unlabored, Respiratory pattern is regular, symmetrical. GI: No signs and/or symptoms were reported involving the gastrointestinal system. : No signs and/or symptoms were reported regarding the genitourinary system. EENT: No signs and/or symptoms were reported regarding the EENT system. Derm: Skin is pink, warm \T\ dry. Musculoskeletal: No signs and/or symptoms reported regarding the musculoskeletal system. 19:30 Reassessment: Patient appears in no apparent distress at this time. Patient and/or mg2 family updated on plan of care and expected duration. Pain level reassessed. 23:08 Reassessment: tried to call for report to the floor nurse but she was not ready. i will mg2 call after 3o mins. Vital Signs: 15:44 BP 161 / 65; Pulse 75; Resp 18; Temp 98(O); Pulse Ox 100% on R/A; Weight 47.17 kg; em Height 4 ft. 11 in. (149.86 cm); Pain 7/10; 18:30 BP 161 / 94; Pulse 79; Resp 18; Pulse Ox 97% on R/A; hb 23:06 BP 117 / 51; Pulse 81; Resp 18; Pulse Ox 98% on R/A; mg2 15:44 Body Mass Index 21.01 (47.17 kg, 149.86 cm) em ED Course: 14:36 Patient arrived in ED. ds1 15:50 Triage completed. em 15:50 Arm band placed on. em 17:58 Vidal Su MD is Attending Physician. ma2 18:24 CT Head Brain wo Cont In Process Unspecified. EDMS 18:35 Missed attempt(s): 20 gauge in right antecubital area. Bleeding controlled, band aid hb applied, catheter tip intact. 18:49 Patient has correct armband on for positive identification. Bed in low position. Call hb light in reach. Side rails up X2. 18:49 Inserted saline lock: 22 gauge in left antecubital area, using aseptic technique. Blood hb collected. 19:00 Estefany Bhakta, RN is Primary Nurse. hb 19:16 Primary Nurse role handed off by Estefany Bhakta RN mw2 19:27 Attending Physician role handed off by Vidal Su MD rn 19:27 Rell Dee MD is Attending Physician. rn 19:45 Estefany Bhakta, RN is Primary Nurse. hb 19:45 Daniel Ragland, DANILO is Primary Nurse. jb4 20:31 Abdomen In Process Unspecified. EDMS 21:14 Jorge Maza MD is Hospitalizing Provider. rn 23:04 No provider procedures requiring assistance completed. Patient admitted, IV remains in mg2 place. Administered Medications: 18:57 Drug: Flagyl (metroNIDAZOLE) 500 mg Volume: 100 ml; Route: IVPB; Rate: 200 ml/hr; hb Infused Over: 30 mins; Site: left antecubital; 18:57 Drug: Zofran (Ondansetron) 4 mg Route: IVP; Site: left antecubital; hb 23:59 Follow up: Response: No adverse reaction mg2 18:57 Not Given (Patient Refused): morphine 4 mg IVP once; RASS on ADMIN: Combtv4, Very hb Agttd3, Agttd2, Rstlss1, AlertClm0, Drwsy-1, Lt Sdtn-2, Mod Sdtn-3, Dp Sdtn-4, UnArsble-5 18:58 Drug: NS 0.9% 1000 ml Route: IV; Rate: 1 bolus; Site: left antecubital; hb 18:58 Drug: Rocephin (cefTRIAXone) 1 grams Route: IV; Rate: calculated rate; Site: left hb antecubital; 21:46 Drug: Kayexalate (polystyrene) 15 grams Route: PO; mg2 23:58 Follow up: Response: No adverse reaction mg2 21:46 Drug: NS 0.9% 1000 ml Route: IV; Rate: 75 ml/hr; Site: left antecubital; mg2 23:58 Follow up: IV Status: Infusion continued upon admission mg2 Outcome: 21:14 Decision to Hospitalize by Provider. rn 06/11 00:03 Admitted to Med/surg accompanied by nurse, via stretcher, room 213, with chart, Report mg2 called to DANILO Cedillo Condition: stable Instructed on the need for admit, Demonstrated understanding of instructions. 00:04 Patient left the ED. mg2 Signatures: Dispatcher [employer] EDKeith Hunt, DANILO RN Keila Thomas ds1 Rell Dee MD MD rn Baxter, Heather, RN RN hb Bryson, James, RN RN jb4 Vidal Su MD MD la2 Yuri Rebolledo mw2 Robert Agee RN RN mg2
--- NOTE | 2020-06-10 21:15 | EDPHYS ---
Physician Documentation [facility] Name: Claudette Sherman Age: 79 yrs Sex: Female : 1940 Arrival Date: 06/10/2020 Time: 14:36 Bed 7 Private MD: ED Physician Rell Dee HPI: 06/10 19:15 This 79 yrs old Female presents to ER via Wheelchair with complaints of rn Dizziness, Nausea, General Weakness. 19:15 The patient presents with generalized weakness. Onset: The symptoms/episode rn began/occurred at an unknown time. Modifying factors: The symptoms are alleviated by nothing, the symptoms are aggravated by nothing. Severity of symptoms: At their worst the symptoms were mild in the emergency department the symptoms are unchanged. It is unknown whether or not the patient has had similar symptoms in the past. It is unknown whether or not the patient has recently seen a physician. Pt signed out to me by Dr. Su. Pt seems confused and not really able to tell me why she is here. Apparently or family was here earlier and able to give a story but not here currently. Pt states here for "preparation of appendix". Reports feels generalized weakness but denies fever/cough/sob. . Historical: - Allergies: 15:50 Codeine; em 15:50 Morphine; em - PMHx: 15:50 High Cholesterol; Hypertension; Hypothyroidism; open wound on middle abdomen; sacrum em wound; - PSHx: 15:50 CABG; Colostomy; em - Immunization history:: Adult Immunizations up to date. - Social history:: Smoking status: Patient denies any tobacco usage or history of. - Family history:: not pertinent. - Hospitalizations: : No recent hospitalization is reported. ROS: 19:15 Constitutional: Negative for fever, chills, and weight loss, Eyes: Negative for injury, rn pain, redness, and discharge, Neck: Negative for injury, pain, and swelling, Cardiovascular: Negative for chest pain, palpitations, and edema, Respiratory: Negative for shortness of breath, cough, wheezing, and pleuritic chest pain, Abdomen/GI: Negative for abdominal pain Back: Negative for injury and pain, : Negative for injury, bleeding, discharge, and swelling, MS/Extremity: Negative for injury and deformity, Skin: Negative for injury, rash, and discoloration, Neuro: Negative for headache, numbness, tingling, and seizure. Exam: 19:15 Constitutional: This is a well developed, well nourished patient who is awake, alert, rn and in no acute distress. Head/Face: Normocephalic, atraumatic. ENT: dry MM Cardiovascular: Regular rate and rhythm. No pulse deficits. Respiratory: No increased work of breathing, no retractions or nasal flaring. Abdomen/GI: soft, non-tender, RLQ ostomy with non-bloody non-melena stool. + midline open wound. Skin: Warm, dry MS/ Extremity: Pulses equal, no cyanosis. Neurovascular intact. Full, normal range of motion. Equal circumference. Neuro: Awake and alert, GCS 15, not oriented to time. Vital Signs: 15:44 BP 161 / 65; Pulse 75; Resp 18; Temp 98(O); Pulse Ox 100% on R/A; Weight 47.17 kg; em Height 4 ft. 11 in. (149.86 cm); Pain 7/10; 18:30 BP 161 / 94; Pulse 79; Resp 18; Pulse Ox 97% on R/A; hb 23:06 BP 117 / 51; Pulse 81; Resp 18; Pulse Ox 98% on R/A; mg2 15:44 Body Mass Index 21.01 (47.17 kg, 149.86 cm) em MDM: 18:00 Patient medically screened. ma2 19:34 ED course: Daughter here, states multiple visits with home health and pcp recently, has rn noticed confusion and generalized weakness over last week, not eating as much lately, no focal complaints. Reports prolonged hospitalization end of 2019 for bowel obstruction and had subsequent wound dehiscence. Also reports left facial weakness present for years. Reports now after fluids has improved some.. 21:10 Differential diagnosis: hypovolemia, idiopathic dizziness. rn 21:11 Data reviewed: vital signs, nurses notes, lab test result(s), radiologic studies, CT rn scan, and as a result, I will admit patient. Counseling: I had a detailed discussion with the patient and/or guardian regarding: the historical points, exam findings, and any diagnostic results supporting the discharge/admit diagnosis, lab results, radiology results, the need for further work-up and treatment in the hospital. Response to treatment: the patient's symptoms have mildly improved after treatment, and as a result, I will admit patient. Admission orders: after a detailed discussion of the patient's condition and case, the admit orders are written by me. ED course: Consulted with ajay Maza, will admit for IV hydration and further care. . 06/10 17:58 Order name: Basic Metabolic Panel; Complete Time: 20:48 ma2 06/10 17:58 Order name: CBC with Diff; Complete Time: 19:27 ma2 06/10 17:58 Order name: Hepatic Function; Complete Time: 20:48 ma2 06/10 17:58 Order name: Lipase; Complete Time: 20:48 ma2 06/10 17:58 Order name: Blood Culture Adult (2) ma2 06/10 17:58 Order name: Lactate; Complete Time: 19:27 ma2 06/10 18:14 Order name: CT Head Brain wo Cont; Complete Time: 18:53 ma2 06/10 18:37 Order name: TSH; Complete Time: 20:48 ma2 06/10 18:37 Order name: T4 Free; Complete Time: 20:48 ma2 06/10 18:38 Order name: Troponin (emerg Dept Use Only); Complete Time: 20:48 ma2 06/10 19:15 Order name: PT-INR; Complete Time: 20:12 rn 06/10 19:15 Order name: Procalcitonin; Complete Time: 20:48 rn 06/10 21:19 Order name: COVID-19 : Document "Date of Symptom Onset" if Symptomatic. mg2 06/10 22:46 Order name: SARS-COV-2 RT PCR; Complete Time: 22:58 EDMS 06/10 17:58 Order name: IV Saline Lock; Complete Time: 19:00 ma2 06/10 17:58 Order name: Labs collected and sent; Complete Time: 19:00 ma2 06/10 19:12 Order name: Labs - recollect needed; Complete Time: 19:46 sv 06/10 20:26 Order name: Abdomen ; Complete Time: 20:56 EDMS Administered Medications: 18:57 Drug: Flagyl (metroNIDAZOLE) 500 mg Volume: 100 ml; Route: IVPB; Rate: 200 ml/hr; hb Infused Over: 30 mins; Site: left antecubital; 18:57 Drug: Zofran (Ondansetron) 4 mg Route: IVP; Site: left antecubital; hb 23:59 Follow up: Response: No adverse reaction mg2 18:57 Not Given (Patient Refused): morphine 4 mg IVP once; RASS on ADMIN: Combtv4, Very hb Agttd3, Agttd2, Rstlss1, AlertClm0, Drwsy-1, Lt Sdtn-2, Mod Sdtn-3, Dp Sdtn-4, UnArsble-5 18:58 Drug: NS 0.9% 1000 ml Route: IV; Rate: 1 bolus; Site: left antecubital; hb 18:58 Drug: Rocephin (cefTRIAXone) 1 grams Route: IV; Rate: calculated rate; Site: left hb antecubital; 21:46 Drug: Kayexalate (polystyrene) 15 grams Route: PO; mg2 23:58 Follow up: Response: No adverse reaction mg2 21:46 Drug: NS 0.9% 1000 ml Route: IV; Rate: 75 ml/hr; Site: left antecubital; mg2 23:58 Follow up: IV Status: Infusion continued upon admission mg2 Disposition: 06/10/20 21:14 Hospitalization ordered by Jorge Maza for Inpatient Admission. Preliminary diagnosis are Dehydration, Acute kidney failure, unspecified, Acidosis, Hyperkalemia, Altered mental status, unspecified. - Bed requested for Telemetry/MedSurg (Inpatient). - Status is Inpatient Admission. mg2 - Condition is Stable. - Problem is an ongoing problem. - Symptoms have improved. Signatures: Dispatcher [employer] EDMI Jacque Cook RN RN Keith Aquino RN RN Rell Dee MD MD rn Garcia, Cindy, RN RN Estefany Bhakta RN RN Vidal Su MD MD [facility] Robert Agee RN RN mg2 Corrections: (The following items were deleted from the chart) 20:26 18:41 Abdomen Pelvis W Con+CT.RAD.BRZ ordered. [facility] EDMI 23:02 21:14 Hospitalization Ordered by Jorge Maza MD for Inpatient Admission. Preliminary cg diagnosis is Dehydration; Acute kidney failure, unspecified; Acidosis; Hyperkalemia; Altered mental status, unspecified. Bed requested for Telemetry/MedSurg (Inpatient). Status is Inpatient Admission. Condition is Stable. Problem is an ongoing problem. Symptoms have improved. rn 06/11 00:04 06/10 23:02 06/10/2020 21:14 Hospitalization Ordered by Jorge Maza MD for Inpatient mg2 Admission. Preliminary diagnosis is Dehydration; Acute kidney failure, unspecified; Acidosis; Hyperkalemia; Altered mental status, unspecified. Bed requested for Telemetry/MedSurg (Inpatient). Status is Inpatient Admission. Condition is Stable. Problem is an ongoing problem. Symptoms have improved. cg
[2020-06-10] MEDS ORDERED: SOD POLYSTYREN SUL 15 GM/60 ML UCUP ONE (22:00)
[2020-06-10] MEDS ORDERED: ONDANSETRON 4 MG/2 ML VIAL IV PRN (23:55)
[2020-06-10] MEDS: NA CHLORIDE 0.9% 1,000 ML IV SCH (23:55)
[2020-06-11 00:55] VITALS: BMI 19.8
[2020-06-11 07:02] LABS: Absolute Lymphocytes (CBC) 1.5 K/uL (0.7-4.9); Basophils % 0.5 % (0-1.3); Hematocrit 26.1 % (36.0-45.0); Lymphocytes % 15.9 % (15.3-44.8); MPV 8.2 fL (7.6-11.3); RBC Red Blood Cell Count 2.73 M/uL (3.86-4.86)
[2020-06-11 07:25] LABS: Potassium 4.1 mmol/L (3.5-5.1)
--- NOTE | 2020-06-11 11:17 | EKG ---
Test Date: 2020-06-10 Test Time: 21:53:28 Geophysics Scientist: MG MEASUREMENT RESULTS: Intervals: Rate: 82 KS: 128 QRSD: 150 QT: 444 QTc: 518 Dow: P: 61 KS: 128 QRS: -31 T: 72 INTERPRETIVE STATEMENTS: Normal sinus rhythm Possible Left atrial enlargement Left axis deviation Left bundle branch block Abnormal ECG Compared to ECG 04/22/2020 17:46:09 Left-axis deviation now present Electronically Signed On 06-11-20 11:17:01 CDT by Delfino Guzmán
[2020-06-11] MEDS: NA CHLORIDE 0.9% 1,000 ML IV SCH ×2 (14:00→19:55)
[2020-06-11] MEDS: QUETIAPINE 25 MG TAB PO SCH (20:31)
--- NOTE | 2020-06-11 21:08 | P.HP ---
Certification for Inpatient Patient admitted to: Inpatient With expected LOS: >2 Midnights Practitioner: I am a practitioner with admitting privileges, knowledge of patient current condition, hospital course, and medical plan of care. Services: Services provided to patient in accordance with Admission requirements found in Title 42 Section 412.3 of the Code of Federal Regulations Patient History Date of Service: 06/11/20 Reason for admission: WEAK, FATIGUE, DEHYDRATION History of Present Illness: JORGE A IS 79 YEARS OLD LADY WHO HAS TOTAL COLECTOMY AFTER PARALYTIC ILEUS IN [facility] HAS NOT BEEN ABLE TO RECOVER SINCE THEN. SHE DOES NOT EAT OR DRINK ENOUGH AND ENDS UP IN HOSPITAL WITH DEHYDRATION. SHE AFTER COLECTOMY HAD AN EPISODE OF SHINGLES THAT MADE HER WEAKER. SHE IS DEPRESSED BUT FAMILY DOES NOT LIKE HER TO GET ANTIDEPRESSANT SHE MAY NOT BE TOLERATING IT. SHE HAS WATERY STOOL AND I HAVE EXPLAINED TO FAMILY THAT WITHOUT COLON THE STOOL WILL STAY WATERY IT IS COLON'S WORK TO SOLIDIFY THE STOOL. THEY WANT HER ON LOMOTIL ALL THE TIME THAT IS NOT GOING TO CURE THE ISSUE BUT MAY WORSEN IT. THEY WANT HER ON MEGACE BUT IT WILL GIV HER DVT SHE IS WEAK AND MAINLY SEDENTARY. Allergies codeine Allergy (Verified 04/23/20 00:56) Rash morphine Allergy (Verified 04/23/20 00:56) Rash Home medications list reviewed: Yes Home Medications: Aspirin [Aspirin EC 81 MG] 81 mg PO DAILY 04/23/20 Atorvastatin Calcium 40 mg PO BEDTIME 04/23/20 Ferrous Sulfate [Iron] 325 mg PO BEDTIME 04/23/20 Levothyroxine Sodium [Euthyrox] 125 mcg PO ACB 04/23/20 Warfarin Sodium 2.5 mg PO DAILY 04/23/20 Cefdinir [Omnicef] 300 mg PO DAILY #7 capsule 04/25/20 Diphenox/Atropine [Lomotil*] 1 tab PO TID PRN #30 tab 04/25/20 Ensure High Protein 237 ml PO BID #60 can 04/25/20 Loperamide [Imodium*] 4 mg PO ACHS #120 cap 04/25/20 Sodium Bicarbonate 2 pill PO BID #120 tablet 04/25/20 - Past Medical/Surgical History Diabetic: No -: Diabetes mellitus type 2 -: Hypertension -: hyperlipidemia -: Small-bowel obstruction -: knee sx -: Cholecystectomy -: hysterectomy -: Ileostomy -: CABG with AVR -: Aortic valve replaced, double bypass Psychosocial/ Personal History: Patient currently lives at home with her family, has home health - Family History Father Notes: no medical condition,still living Mother Notes: no medical condition,still living - Social History Smoking Status: Never smoker Alcohol use: No CD- Drugs: No Caffeine use: No Place of Residence: Home Review of Systems 10-point ROS is otherwise unremarkable General: Weakness, Malaise Physical Examination - Vital Signs Temperature: 97.3 F Blood Pressure: 138/64 Pulse: 98 Respirations: 16 Pulse Ox (%): 97 - Physical Exam General: Oriented x2, Cachectic, Mild distress, Moderate distress HEENT: Atraumatic, PERRLA, Mucous membr. moist/pink, EOMI, Sclerae nonicteric Neck: Supple, 2+ carotid pulse no bruit, No LAD, Without JVD or thyroid abnormality Respiratory: Clear to auscultation bilaterally, Normal air movement Cardiovascular: Regular rate/rhythm, Normal S1 S2 Gastrointestinal: Soft and benign, Non-distended, Other (ILEOSTOMY) Musculoskeletal: No tenderness Integumentary: No rashes Neurological: Normal gait, Normal speech, Normal strength at 5/5 x4 extr, Normal tone, Normal affect Lymphatics: No axilla or inguinal lymphadenopathy - Studies Microbiology Data (last 24 hrs): 06/10/20 18:35 Blood - Blood Anaerobic Blood Culture - Final 06/10/20 18:46 Blood - Blood Anaerobic Blood Culture - Final Assessment and Plan - Problems (Diagnosis) (1) Dehydration Current Visit: Yes Status: Acute Plan: IV FLUIDS METABOLIC ACIDOSIS IS FROM HAVING ILEOSTOMY ITLSELF. SHE IS NOT SYMPTOMATIC FROM IT. (2) Ileostomy in place Current Visit: Yes Status: Acute (3) Failure to thrive Current Visit: Yes Status: Chronic Plan: SHE IS NOT EATING WELL. SHE NEEDS G TUBE BUT DAUGHTER CANCELED THE REFERRAL SHE DOES NOT THINK SHE NEEDS G TUBE. I WILL TRY TO CONVINCE THEM AGAIN. SHE DOES NOT SEEM TO HAVE ANY ACUTE OR CHORNIC REASON FOR HER NOT EATING. (4) Primary hypothyroidism Current Visit: Yes Status: Chronic Plan: START LEVOTHYROIXINE. - Advance Directives Does patient have a Living Will: No Does patient have a Durable POA for Healthcare: No
[2020-06-11 22:08] LABS: MPV 8.4 fL (7.6-11.3)
[2020-06-11 22:16] LABS: Platelet Estimate ND
[2020-06-11] MEDS ORDERED: WATER FOR INJ,STERILE 10 ML IM PRN (23:22)
[2020-06-11] MEDS: ZIPRASIDONE MESYLA 20 MG/VIAL IM PRN (23:38)
[2020-06-12] MEDS: NA CHLORIDE 0.9% 1,000 ML IV SCH (04:44)
[2020-06-12] MEDS: LEVOTHYROXINE SOD 0.05 MG TABLET PO SCH (05:54)
[2020-06-12 06:11] LABS: Absolute Lymphocytes (CBC) 1.5 K/uL (0.7-4.9); Basophils % 0.7 % (0-1.3); Hematocrit 26.5 % (36.0-45.0); Lymphocytes % 14.4 % (15.3-44.8); RBC Red Blood Cell Count 2.78 M/uL (3.86-4.86)
[2020-06-12 06:29] LABS: Albumin 3.4 g/dL (3.4-5.0); Bilirubin Total 0.4 mg/dL (0.2-1.0); Potassium 3.6 mmol/L (3.5-5.1); Protein, Total 7.3 g/dL (6.4-8.2)
--- NOTE | 2020-06-12 07:47 | RAD REPORT ---
EXAM DESCRIPTION: MRI - Brain Wo Cont - 06/11/2020 10:05 pm CLINICAL HISTORY: Confusion/alteration of consciousness COMPARISON: June 10, 2020 TECHNIQUE: Axial, sagittal, and coronal magnetic images of the brain were obtained. Contrast was not requested FINDINGS: Mild periventricular signal likely ischemic changes secondary to small vessel disease. Diffusion-weighted/ADC mapping does not reveal evidence of acute infarction. The ventricles are normal caliber. An extra-axial fluid collection is not present Fluid within the sinuses/mastoids is not noted. Mild chronic sinusitis IMPRESSION: No acute intracranial abnormality is displayed
[2020-06-12] MEDS: ENOXAPARIN 30 MG/0.3 ML SQ SCH (08:06)
[2020-06-12] MEDS ORDERED: POTASSIUM CL IV SCH ×3 (11:00)
[2020-06-12] MEDS ORDERED: NA BICARB IV SCH ×3 (11:00)
[2020-06-12] MEDS ORDERED: D5W IV SCH ×3 (11:00)
[2020-06-12 11:39] LABS: Urine Appearance CLEAR (Clear); Urine Bilirubin NEGATIVE (Negataive); Urine Blood NEGATIVE (Negative); Urine Color YELLOW (Yellow); Urine Glucose NEGATIVE (Negative); Urine Protein NEGATIVE (Negative); Urine Urobilinogen 0.2 mg/dL (0.2-1.0)
[2020-06-12 11:40] LABS: Urine Microscopic Reflex NO UMIC
[2020-06-12 11:41] LABS: Urine Protein/Creatinine Ratio 0.7 ratio (<0.15)
--- NOTE | 2020-06-12 12:58 | P.PN ---
Subjective Date of Service: 06/12/20 Chief Complaint: WEAK, FATIGUE, DEHYDRATION Subjective: Improving GEN WEAK, NOT EATING MUCH. Review of Systems 10-point ROS is otherwise unremarkable General: Weakness, Malaise Physical Examination - Vital Signs Temperature: 98.1 F Blood Pressure: 114/54 Pulse: 91 Respirations: 18 Pulse Ox (%): 96 - Physical Exam General: In no apparent distress, Cachectic, Mild distress HEENT: Atraumatic, PERRLA, EOMI Neck: Supple, JVD not distended Respiratory: Clear to auscultation bilaterally, Normal air movement Cardiovascular: Regular rate/rhythm, Normal S1 S2 Gastrointestinal: No tenderness Musculoskeletal: No tenderness Integumentary: No rashes Neurological: Normal speech, Normal tone, Normal affect Lymphatics: No axilla or inguinal lymphadenopathy - Studies Microbiology Data (last 24 hrs): 06/10/20 18:35 Blood - Blood Anaerobic Blood Culture - Final 06/10/20 18:46 Blood - Blood Anaerobic Blood Culture - Final Medications List Reviewed: Yes Assessment And Plan - Current Problems (Diagnosis) (1) Dehydration Current Visit: Yes Status: Acute Plan: IV FLUIDS METABOLIC ACIDOSIS IS FROM HAVING ILEOSTOMY ITLSELF. SHE IS NOT SYMPTOMATIC FROM IT. FAMILY REFUSE G TUBE. THEY HAVE BEEN TALKING TO [place] [employer] ALSO. (2) Ileostomy in place Current Visit: Yes Status: Acute (3) Failure to thrive Current Visit: Yes Status: Chronic Plan: SHE IS NOT EATING WELL. SHE NEEDS G TUBE BUT DAUGHTER CANCELED THE REFERRAL SHE DOES NOT THINK SHE NEEDS G TUBE. I WILL TRY TO CONVINCE THEM AGAIN. SHE DOES NOT SEEM TO HAVE ANY ACUTE OR CHORNIC REASON FOR HER NOT EATING. (4) Primary hypothyroidism Current Visit: Yes Status: Chronic Plan: START LEVOTHYROIXINE. (5) Metabolic acidosis Current Visit: Yes Status: Acute Plan: MAINLY FROM STOMY RELATED STOOL PHYSIOLOGY CHANGES NOW ON BICARB DRIP.
[2020-06-12] MEDS: D5W 1,000 ML with NA BICARB 8.4% 150 MEQ IV SCH ×2 (13:00)
[2020-06-12] MEDS: SODIUM BICARB 325 MG TAB PO SCH ×2 (14:09→20:34)
[2020-06-12 14:30] LABS: Arterial Blood Carboxyhemoglob 1.3 % (0-1.5); Blood Gas Oxyhemoglobin 96.2 % (94-97); Blood O2 Saturation 98.4 % (92-98.5)
--- NOTE | 2020-06-12 16:46 | CON ---
Date of Consultation: 06/12/2020 Reason For Consultation: Acidosis. History Of Present Illness: This is a pleasant 79-year-old female, known to me from the office with significant past medical history of diabetes complicated with neuropathy, hypertension, chronic kidney disease stage 3, coronary artery disease status post CABG complicated with valvular heart disease, small bowel ischemia status post colostomy, had ileostomy, chronic kidney disease, baseline creatinine as of April 28 is 1 with GFR of 49, the patient was in her regular state of health. The patient brought because of severe weakness and watery stools for the last few days. The patient found to have acidosis and electrolyte imbalance with elevation in BUN and creatinine. For that reason, we have been consulted. The patient denied taking any nonsteroidal. No IV contrast. The patient had hyperkalemia also. Over the night, the patient was started on IV fluid. Upon admission, creatinine was 1.9, currently creatinine down to 1.3. Potassium drop from 5.6 to 3.6. Past Medical History: Includes; 1. Diabetes complicated with neuropathy. 2. Hypertension. 3. Hyperlipidemia. 4. Chronic kidney disease, baseline creatinine 1.1, GFR of 49, secondary to hypertension and nephrosclerosis. 5. Small bowel obstruction, status post colon resection, status post ileostomy. Past Surgical History: Includes knee surgery, cholecystectomy, hysterectomy, ileostomy. Family History: Positive for hypertension. Social History: Denied smoking, denied drinking, denied drugs abuse. Home Medications: Include; 1. Coumadin. 2. Sodium bicarb. 3. Levothyroxine. 4. Aspirin. 5. Atorvastatin. Current Medications: In the hospital include; 1. IV fluid. 2. Zofran. 3. Zoloft. Review of Systems: Head and Neck: No red eye. No ear pain. GI: Has diarrhea. : No polyuria. No dysuria. No hematuria. Supervisor Pumping: No vaginal discharge. Respiratory: No shortness of breath. Cardiovascular: No chest pain. Endocrine: No polydipsia. Skin: No rash. Physical Examination: General: When I saw the patient, the patient lying in bed, comfortable. Vital Signs: Blood pressure 132/61, pulse of 106, afebrile. Chest: Clear to auscultation. Heart: S1, S2. Systolic murmur. Abdomen: Soft, nontender. Ileostomy. Extremities: No edema. Laboratory Data: WBC 10.2, H and H 9/26.5, platelets 302. Sodium 142, potassium 3.6, bicarb 12, BUN 41, creatinine 1.3, GFR of 38, calcium 9. Upon presentation; creatinine 1.9, GFR of 24, calcium 9, albumin is 3.4, corrected calcium 8.5. Assessment And Plan: 1. Acute kidney injury secondary to prerenal, secondary to the GI loss. Complicated with severe acidosis and hyperkalemia. I am going to start the patient on bicarb drip and resume oral bicarb, and we will monitor the patient. 2. Acidosis. Mostly, it is non-anion gap metabolic acidosis secondary possibly to mostly to GI loss to rule out any RTA. I am going to go ahead and send for urine electrolyte and we will follow up. 3. Hyperkalemia secondary to hypothyroidism/renal failure, recovered, resolved. We will monitor. Currently, hypokalemia. We will hold on any supplement. 4. Hypothyroidism. The patient used to be on levothyroxine, we will resume it. We will follow up. 5. Diarrhea secondary to short bowel. We will follow up with Primary. Time spent discussing with the patient, examining the patient, [id number] withthe patient, placing orders, discussing the case with our steamfitter apprentice including nursing, discussing the case with the other subspecialty including Cardiology and hospitalist 65 minutes. KATYA Voice ID: [id number] Report ID: [id number] SIOBHAN
--- NOTE | 2020-06-12 16:54 | RAD REPORT ---
EXAM DESCRIPTION: US - Liver Only - 06/12/2020 3:52 pm CLINICAL HISTORY: AMS COMPARISON: No comparisons TECHNIQUE: Sonographic evaluation of the right upper quadrant was performed as a dedicated liver ult rasound study. FINDINGS: Liver is 14 cm in maximum dimension with the spleen 9 cm. Liver parenchymal echogenicity i s with range of normal. No capsule nodularity or focal liver parenchymal lesions seen. Doppler evalua tion shows no portal vein abnormality. No focal splenic abnormality. No ascites in the upper abdomen. IMPRESSION: Negative liver ultrasound study.
[2020-06-12] MEDS: QUETIAPINE 25 MG TAB PO SCH (20:34)
[2020-06-12] MEDS: ZIPRASIDONE MESYLA 20 MG/VIAL IM PRN (21:55)
[2020-06-13] MEDS: D5W 1,000 ML with NA BICARB 8.4% 150 MEQ IV SCH ×2 (04:15)
[2020-06-13 05:31] LABS: Absolute Lymphocytes (CBC) 2.1 K/uL (0.7-4.9); Basophils % 0.7 % (0-1.3); Hematocrit 25.1 % (36.0-45.0); Lymphocytes % 19.7 % (15.3-44.8); MPV 7.9 fL (7.6-11.3); RBC Red Blood Cell Count 2.71 M/uL (3.86-4.86)
[2020-06-13 06:07] LABS: Albumin 3.2 g/dL (3.4-5.0); BUN Blood Urea Nitrogen 28 mg/dL (7-18); Bicarbonate 23 mmol/L (21-32); Creatine Phosphokinase 192 U/L (26-192); Ferritin 870.6 ng/mL (8-388); Folic Acid, (Folate) > 20.0 ng/mL (3.1-17.5); Glucose Level 103 mg/dL (74-106); Magnesium 1.5 mg/dL (1.8-2.4); Phosphorus 2.5 mg/dL (2.5-4.9); Sodium Level 146 mmol/L (136-145); Transferrin 176 mg/dL (200-360); Uric Acid 7.3 mg/dL (2.6-6.0)
[2020-06-13] MEDS: LEVOTHYROXINE SOD 0.05 MG TABLET PO SCH (06:10)
[2020-06-13 06:11] LABS: Potassium 2.9 mmol/L (3.5-5.1)
[2020-06-13] MEDS ORDERED: Magnesium Sulfate 2gm IVPB 2 G/50 ML BAG IV ONE (07:06)
[2020-06-13] MEDS: KCL 20 MEQ/100 mL IVPB 20 MEQ/100 ML BAG IV SCH ×2 (08:27→15:12)
[2020-06-13] MEDS: SODIUM BICARB 325 MG TAB PO SCH ×3 (08:28→20:21)
[2020-06-13] MEDS: ENOXAPARIN 30 MG/0.3 ML SQ SCH (08:28)
--- NOTE | 2020-06-13 19:08 | PN ---
Date of Progress Note: 06/13/2020 Subjective: The patient was admitted with acute kidney injury secondary to GI loss and severe acidosis with hyperkalemia. The patient has started IV hydration and bicarb drip. Acidosis has been corrected. The patient is feeling better. Physical Examination: Vital Signs: Blood pressure 137/58, pulse of 99, afebrile. The patient had good urine output of 3 voiding, still has high ileostomy bag output. Chest: Clear to auscultation. Heart: S1, S2. Regular. Abdomen: Soft. Ileostomy bag. No guarding or rebound. Extremities: No edema. Laboratory Data: H and H 8.5/25.1. Sodium 146, potassium 2.9, bicarb 23, BUN 28, creatinine down to 1.1, GFR of 45, magnesium 1.5, phosphorus 2.5, calcium 9.1. Iron saturation 25. Ferritin 870. Serum protein electrophoresis is still pending. Vitamin D still pending. PTH 28. Urine electrolyte, urine chloride 78, urine sodium 33, urine potassium 39. Assessment And Plan: 1. Acute kidney injury secondary to prerenal, recovered, resolved. I am going to continue IV fluid. 2. Hypernatremia. Change sodium bicarb to 50 mEq to achieve hypotonic fluid. 3. Hypokalemia. We will supplement. 4. Hypomagnesemia. We will supplement. 5. Non-anion gap metabolic acidosis. Urine anion gap is -6, which means the acidosis secondary to the GI loss. I am going to go ahead and decrease the IV bicarb to 50 mEq and we will continue on oral supplement. We will follow up. 6. Diarrhea secondary to ileostomy. Follow up with primary. 7. Deconditioning. Continue PT/OT. Time spent discussing with the patient, examining the patient, [id number] withthe patient, placing orders, discussing the case with our rock climbing team member including nursing, discussing the case with the other subspecialty including Cardiology and hospitalist 35 minutes. KATYA Voice ID: [id number] Report ID: [id number] MTDRay
[2020-06-13] MEDS: QUETIAPINE 25 MG TAB PO SCH (20:21)
[2020-06-13] MEDS: ENSURE ENLIVE 237 ML CAN PO SCH (20:22)
[2020-06-13] MEDS: NA BICARB IV SCH ×3 (20:24)
[2020-06-13] MEDS: POTASSIUM CL IV SCH ×3 (20:24)
[2020-06-13] MEDS: D5W IV SCH ×3 (20:24)
--- NOTE | 2020-06-13 20:56 | P.PN ---
Subjective Date of Service: 06/13/20 Chief Complaint: WEAK, FATIGUE, DEHYDRATION Subjective: Improving GEN WEAK, NOT EATING MUCH. SHE IS LOOKING BETTER. Review of Systems 10-point ROS is otherwise unremarkable General: Weakness Physical Examination - Vital Signs Temperature: 98 F Blood Pressure: 117/56 Pulse: 89 Respirations: 18 Pulse Ox (%): 97 - Physical Exam General: In no apparent distress, Cachectic HEENT: Atraumatic, PERRLA, EOMI Neck: Supple, JVD not distended Respiratory: Clear to auscultation bilaterally, Normal air movement Cardiovascular: Regular rate/rhythm, Normal S1 S2 Gastrointestinal: Normal bowel sounds, No tenderness Musculoskeletal: No tenderness Integumentary: No rashes Neurological: Normal speech, Normal tone, Normal affect Lymphatics: No axilla or inguinal lymphadenopathy - Studies Medications List Reviewed: Yes Assessment And Plan - Current Problems (Diagnosis) (1) Dehydration Current Visit: Yes Status: Acute Plan: IV FLUIDS METABOLIC ACIDOSIS IS FROM HAVING ILEOSTOMY ITLSELF. SHE IS NOT SYMPTOMATIC FROM IT. FAMILY REFUSE G TUBE. THEY HAVE BEEN TALKING TO [place] DOCTORS ALSO. (2) Ileostomy in place Current Visit: Yes Status: Acute (3) Failure to thrive Current Visit: Yes Status: Chronic Plan: SHE IS NOT EATING WELL. SHE NEEDS G TUBE BUT DAUGHTER CANCELED THE REFERRAL SHE DOES NOT THINK SHE NEEDS G TUBE. I WILL TRY TO CONVINCE THEM AGAIN. SHE DOES NOT SEEM TO HAVE ANY ACUTE OR CHORNIC REASON FOR HER NOT EATING. (4) Primary hypothyroidism Current Visit: Yes Status: Chronic Plan: START LEVOTHYROIXINE. (5) Metabolic acidosis Current Visit: Yes Status: Acute Plan: MAINLY FROM STOMY RELATED STOOL PHYSIOLOGY CHANGES NOW ON BICARB DRIP. WITH BICARB DRIP SHE AHS IMPROVED. SHE WILL NEED BICARB TABLETS AT HOME. I TOLD THE DAUGHTER THAT UNLESS SHE GETS ENOUGH LIQUID AT HOME SHE WILL BE BACK. SHE NEEDS G TUBE BUT FAMILY IS REFUSING SO FAR. (6) Hypokalemia Current Visit: Yes Status: Acute Plan: REPLACE K PER PROTOCOL. (7) Hypomagnesemia Current Visit: Yes Status: Acute
[2020-06-13] MEDS: ZIPRASIDONE MESYLA 20 MG/VIAL IM PRN (22:56)
[2020-06-13] MEDS ORDERED: KCL 20 MEQ/100 mL IVPB 20 MEQ/100 ML BAG IV SCH (23:00)
[2020-06-14 06:12] LABS: Absolute Lymphocytes (CBC) 2.1 K/uL (0.7-4.9); Basophils % 0.8 % (0-1.3); Hematocrit 24.8 % (36.0-45.0); Lymphocytes % 19.8 % (15.3-44.8); MPV 8.1 fL (7.6-11.3); RBC Red Blood Cell Count 2.64 M/uL (3.86-4.86)
[2020-06-14 06:18] LABS: Albumin 3.2 g/dL (3.4-5.0); Magnesium 2.2 mg/dL (1.8-2.4); Phosphorus 1.9 mg/dL (2.5-4.9); Potassium 3.7 mmol/L (3.5-5.1)
[2020-06-14] MEDS: LEVOTHYROXINE SOD 0.05 MG TABLET PO SCH (06:30)
[2020-06-14] MEDS: NA BICARB IV SCH ×3 (07:06)
[2020-06-14] MEDS: D5W IV SCH ×3 (07:06)
[2020-06-14] MEDS: POTASSIUM CL IV SCH ×3 (07:06)
[2020-06-14 08:25] VITALS: BP 117/55; TEMP 98.4
[2020-06-14] MEDS: SODIUM BICARB 325 MG TAB PO SCH (08:35)
[2020-06-14] MEDS: ENOXAPARIN 30 MG/0.3 ML SQ SCH (08:35)
[2020-06-14] MEDS: ENSURE ENLIVE 237 ML CAN PO SCH (08:36)
--- NOTE | 2020-06-14 08:43 | P.PN ---
Subjective Date of Service: 06/17/20 Chief Complaint: WEAK, FATIGUE, DEHYDRATION Physical Examination - Vital Signs Temperature: 98.4 F Blood Pressure: 117/55 Pulse: 93 Respirations: 16 Pulse Ox (%): 93 - Studies Medications List Reviewed: Yes Assessment And Plan - Plan # HEATHER 2/2 prerenal, recovered, resolved Monitor renal panel # Hypernatremia Improving # Hypokalemia Improving # HypoMg Resolved # HypoPO4 Replete # NAGMA 2/2 GI loss Urine AG neg Resolved # Diarrhea / inc ileostomy output # Deconditioning OOB w/ PT/OT
[2020-06-14 08:47] VITALS: O2SAT 100
[2020-06-14] MEDS ORDERED: POTASSIUM 25 MEQ EFFERV TAB PO ONE (09:00)
--- NOTE | 2020-06-14 20:11 | P.DS ---
Admission Date: 06/10/20 Discharge Date: 06/14/20 Disposition: DC HOME/HOME HEALTH CARE Reason for Admission: WEAK, FATIGUE, DEHYDRATION - Problems (1) Dehydration Status: Acute (2) Ileostomy in place Status: Acute (3) Failure to thrive Status: Chronic (4) Primary hypothyroidism Status: Chronic (5) Metabolic acidosis Status: Acute (6) Hypokalemia Status: Acute (7) Hypomagnesemia Status: Acute Brief History of Present Illness: JORGE A IS 79 YEARS OLD LADY WHO HAS TOTAL COLECTOMY AFTER PARALYTIC ILEUS IN [place] HAS NOT BEEN ABLE TO RECOVER SINCE THEN. SHE DOES NOT EAT OR DRINK ENOUGH AND ENDS UP IN HOSPITAL WITH DEHYDRATION. SHE AFTER COLECTOMY HAD AN EPISODE OF SHINGLES THAT MADE HER WEAKER. SHE IS DEPRESSED BUT FAMILY DOES NOT LIKE HER TO GET ANTIDEPRESSANT SHE MAY NOT BE TOLERATING IT. SHE HAS WATERY STOOL AND I HAVE EXPLAINED TO FAMILY THAT WITHOUT COLON THE STOOL WILL STAY WATERY IT IS COLON'S WORK TO SOLIDIFY THE STOOL. THEY WANT HER ON LOMOTIL ALL THE TIME THAT IS NOT GOING TO CURE THE ISSUE BUT MAY WORSEN IT. THEY WANT HER ON MEGACE BUT IT WILL GIV HER DVT SHE IS WEAK AND MAINLY SEDENTARY. I TALKED TO DR. 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 Hospital Course: MS. HORTA HAS NOT DONE WELL SINCE PARTIAL COLECTOMY FOR ILEUS IN [place]. SHE IS SUFFERING FROM SEVERE NON ANION GAP METABOLIC ACIDOSIS FROM SHORT BOWEL SYNDROME. I EXPLAINED TO THE DAUGHTER THAT NORMALLY COLON REMOVES WATER BACK TO BODY FROM STOOL SO THE STOOL SOLIDIFIES AND NOW THAT FUNCTION IS NOT THERE SO SHE WILL NORMALLY HAVE WATERY STOOL. THEY KEPT ON SAYING THAT IT IS DIARRHEA AND WERE GETTING LOMOTIL FROM [place] DOCTORS. I EXPLAINED THAT THIS WILL NOT SOLVE THE PROBLEM OF DEHYDRATION FROM LACK OF COLONIC FUNCTION. HOPEFULY THEY UNDERSTOOD. I ADVISED G TUBE SHE IS NOT ABLE TO DRINK ENOUGH WATER OR EAT TO CONPENSATE THE LOSS OF UNCONCENTRATED STOOL. THEY REFUSED TO DO SO. THEY HAVE BEEN TALKING TO SURGEON IN [place] WHO ADVISED AGAINST THE G TUBE. I ALSO TOLD THE DAUGHTER THAT UNFORTUNATELY SHE MAY RETURN TO HOSPITAL WITH DEHYDRATION AGAIN IN A FEW WEEKS. WE GAVE BICARB DRIP TO IMPROVE HER METABOLIC ACIDOSIS AND SHE DEVELLOPED HYPOKALEMIA AND HYPOMAGENSEMIA THAT WERE CORRECTED. SHE IS STABLE AT DISCHARGE. SHE IS MENTALLY GETTING MORE CONFUSED AND THAT MAY FROM AGE WITH STRESS OF RECURRENT ADMISSIONS. MRI OF BRAIN IS NEG. Vital Signs/Physical Exam: Temp Pulse Resp BP Pulse Ox 98.4 F 93 H 16 117/55 L 93 06/14/20 13:23 06/14/20 13:23 06/14/20 13:23 06/14/20 13:23 06/14/20 13:23 Laboratory Data at Discharge: WBC 10.60 K/uL (4.3-10.9) 06/14/20 05:48 Hgb 8.3 g/dL (12.0-15.0) L 06/14/20 05:48 Hct 24.8 % (36.0-45.0) L 06/14/20 05:48 Plt Count Cancelled 06/14/20 21:00 PT 25.7 SECONDS (9.5-12.5) H 06/10/20 19:40 INR 2.22 06/10/20 19:40 Sodium 145 mmol/L (136-145) 06/14/20 05:48 Potassium 3.7 mmol/L (3.5-5.1) 06/14/20 05:48 BUN 26 mg/dL (7-18) H 06/14/20 05:48 Creatinine 1.09 mg/dL (0.55-1.3) 06/14/20 05:48 Glucose 105 mg/dL (74-106) 06/14/20 05:48 Uric Acid 7.3 mg/dL (2.6-6.0) H 06/13/20 05:06 Phosphorus 1.9 mg/dL (2.5-4.9) L 06/14/20 05:48 Magnesium 2.2 mg/dL (1.8-2.4) D 06/14/20 05:48 Total Bilirubin 0.4 mg/dL (0.2-1.0) 06/12/20 05:19 AST 59 U/L (15-37) H 06/12/20 05:19 ALT 103 U/L (12-78) H 06/12/20 05:19 Alkaline Phosphatase 214 U/L (45-117) H 06/12/20 05:19 Lipase 1115 U/L (73-393) H 06/10/20 19:40 Home Medications: Aspirin [Aspirin EC 81 MG] 81 mg PO DAILY 04/23/20 Atorvastatin Calcium 40 mg PO BEDTIME 04/23/20 Ferrous Sulfate [Iron] 325 mg PO BEDTIME 04/23/20 Levothyroxine Sodium [Euthyrox] 125 mcg PO ACB 04/23/20 Warfarin Sodium 2.5 mg PO DAILY 04/23/20 Cefdinir [Omnicef] 300 mg PO DAILY #7 capsule 04/25/20 Diphenox/Atropine [Lomotil*] 1 tab PO TID PRN #30 tab 04/25/20 Ensure High Protein 237 ml PO BID #60 can 04/25/20 Loperamide [Imodium*] 4 mg PO ACHS #120 cap 04/25/20 Sodium Bicarbonate 2 pill PO BID #120 tablet 04/25/20 Na Bicarb Tab [Sodium Bicarb 325 MG] 650 mg PO TID 90 Days #180 tab 06/14/20 Potassium Chloride 10 meq PO DAILY 30 Days #30 tablet.er 06/14/20 New Medications: Potassium Chloride 10 meq PO DAILY 30 Days #30 tablet.er Na Bicarb Tab [Sodium Bicarb 325 MG] 650 mg PO TID 90 Days #180 tab Physician Discharge Instructions: PROBLEM: Altered Mental Status GOAL: Clear understanding of disease process INSTRUCTIONS: Diet: Regular Activity: as tolerated If you have any questions regarding your stay call [phone] If your symptoms worsen call 911 or go to the ED. Medications were sent to your pharmacy. Follow up with Dr. Frazier in three weeks. Call to make an appointment. Follow up with Dr. Maza. Call office to make an appointment. Followup: Schuyler Frazier MD [ACTIVE - CAN ADMIT] - (Call to make an appointment. Follow up in three weeks) Jorge Maza MD [Primary Care Provider] - (Call to make an appointment. )
[2020-06-19 00:22] LABS: Vitamin D 1,25-Dihydroxy Total 17 pg/mL (18-72); Vitamin D,1,25-OH2, D2 <8 pg/mL
[2020-06-19 19:40] LABS: Immunoglobulin A 549 mg/dL (70-320); Tissue Transglutaminase IgA Ab 1 U/mL (<4)
[2020-06-27 05:45] LABS: Albumin, (SPE) 3.2 g/dL (3.8-4.8); Alpha-1-Globulins 0.3 g/dL (0.2-0.3); Alpha-2-Globulins 0.5 g/dL (0.5-0.9); Gamma Globulins 1.3 g/dL (0.8-1.7); INTERPRETATION REPORT
== END 2020-06-14 13:16 | disposition home health service (06) | DRG 641 ==
LOC: ER 14:33 → ERHOLD 21:21 → 2ND 23:06
PROVIDERS: ADMIT Internal Medicine; ATTEND Internal Medicine
DX: E86.0 Dehydration (principal); R64 Cachexia; Z68.1 Body mass index [BMI] 19.9 or less, adult; N17.9 Acute kidney failure, unspecified; E78.5 Hyperlipidemia, unspecified; E87.5 Hyperkalemia; E87.6 Hypokalemia; E83.42 Hypomagnesemia; E87.2 Acidosis; E03.8 Other specified hypothyroidism; I12.9 Hypertensive chronic kidney disease with stage 1 through stage 4 chronic kidney disease, or unspecified chronic kidney disease; N18.30 Chronic kidney disease, stage 3 unspecified; R19.7 Diarrhea, unspecified; R62.7 Adult failure to thrive; Z88.5 Allergy status to narcotic agent; Z95.1 Presence of aortocoronary bypass graft; Z90.49 Acquired absence of other specified parts of digestive tract; Z79.82 Long term (current) use of aspirin; Z79.01 Long term (current) use of anticoagulants; Z79.899 Other long term (current) drug therapy; Z79.890 Hormone replacement therapy; Z90.710 Acquired absence of both cervix and uterus; Z95.2 Presence of prosthetic heart valve; Z93.2 Ileostomy status; Z20.822 Contact with and (suspected) exposure to COVID-19
CPT/HCPCS: 36415; 70450; 70551; 74176; 76705; 80048; 80053; 80069; 80076; 81003; 82105; 82140; 82435; 82550; 82570; 82607; 82652; 82728; 82746; 82784; 82805; 83516; 83540; 83605; 83690; 83735; 83970; 84132; 84145; 84156; 84165; 84300; 84439; 84443; 84466; 84484; 84550; 85025; 85044; 85049; 85610; 86255; 87040; 87086; 87088; 93005; 96361; 96374; 96375; 99285; J0696; J1650; J2405; J3475; J3480; J3486; J7030; U0003

== ENCOUNTER 2021-04-21 01:30 | Emergency (ER) | payer OTHER, MEDICARE ==
--- OUTSIDE RECORDS SUMMARY | 2021-04-21 01:49 | XMS REPORT | Continuity of Care Document ---
:1940 Author Organization [facility] t Address [address] [place] [address] Care Team Providers Name Role Phone Ena CORREIA Primary Care Physician Silvio, F Attending Clinician Unavailable Nurse, Db Urgent Care Attending Clinician Unavailable Nurse, Db Attending Clinician Unavailable Filippo CARRASCO, T Attending Clinician Unavailable REGIS Attending Clinician Unavailable Only, Db Test Attending Clinician Unavailable Regis CORREIA Attending Clinician Arvind Attending Clinician Unavailable Dale Attending Clinician Unavailable LAURA Attending Clinician Unavailable Doctor Unassigned, Name Attending Clinician Unavailable Ellyn CARRASCO Attending Clinician Unavailable LUCILA Attending Clinician Unavailable Ena Admitting Clinician Unavailable Arvind Admitting Clinician Unavailable UNDEFINED Admitting Clinician Unavailable Payers Payer Name Policy Type Policy Number Effective Date Expiration Date S link MEDICARE PART A \\T\\ [id number] 2004 B 00:00:00 [facility] [id number] 2008 MEDICARE SUPPLEMENT 00:00:00 Problems Condition Condition Condition Status Onset Resolution Last Treating Co mments Source Name Details Category Date Date Treatment Clinician Date 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 00:00: [place] protein-ca protein-ca 00 Me dicbina pearl Branch malnutriti malnutriti on on HEATHER (acute HEATHER (acute Disease Active U nivers kidney kidney 1-04 ity of injury) injury) 00:00: [address] Wound Wound Disease Active Univers infection infection -04 ity of 00:00: [address] Urinary Urinary Disease Active 2019-02 Univers tract tract 2- [place] site not 00 Medica l specified specified Bran ch Acquired Acquired Disease Active Unive rs hypothyroi hypothyroi 05 it y of dism dism 00:00: [address] High High Disease Active Univers cholestero cholestero it y of l l [facility] Diet-contr Diet-contr Disease Active U nivers olled olled ity of diabetes diabetes [place] mellitus mellitus Medica l Branch HTN HTN Disease Active Overview: Univer s (hypertens (hypertens Formattin ity of ion), ion), g of this [place] benign benign note Medical might be Branch different from the original. follows with Dr. Anguiano. 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 ity of [facility] Other Other Disease Active Univers specified specified it[place] of [place] dism dism Medical Branch Allergies, Adverse Reactions, Alerts Allergy Allergy Status Severity Reaction(s) Onset Inactive Treating Comm ents Source Name Type Date Date Clinician morphine DA Active [facility] - 00:00: [address] codeine DA Active [facility] 02-24 00:00: [address] morphine DA Active SV HALLUCINATIO HC A NS 02-24:: [address] codeine DA Active SV HALLUCINATIO [facility] NS 02-24 00:00: [address] MORPHINE DRUG Active Hallucinates 2019-02 Un jorge SULFATE INGREDI 2-28 ity of 00:00: [address] Morphine Propensi Active Hallucinatio 2019-02 CANNOT Univers Sulfate ty to ns 2-28 TAKE ANY ity of adverse 00:00: TYPE OF [place] reaction 00 MORPHINE Medica l s Branch No Known DA Active U 2020-1 [facility] Allergie 1-11 [facility] s 00:00: [address] No Known DA Active U 2020-1 [facility] Allergie 1-11 [place] 00:00: [address] No Known DA Active U 2020-1 [facility] Allergie 0-29 [place] s 00:00: [address] No Known DA Active U 2020-1 [facility] Allergie 0-29 [facility] s 00:00: [address] No Known DA Active U 2020-1 [facility] Allergie 0-16 [place] s 00:00: [address] No Known DA Active U 2020-1 [facility] Allergie 0-16 [place] s 00:00: [address] NO KNOWN Drug Active Univers ALLERGIE Class ity of S [place] [facility] [place] Social History Social Habit Start Date Stop Date Quantity Comments Source Exposure to Not sure [facility]-CoV-2 [place] Medical (event) Branch Alcohol intake 2020-02-12 2020-02-12 Current University of 00:00:00 00:00:00 non-drinker of [facility] alcohol Branch (finding) History SDOH 2020-02-12 2020-02-12 5 University o f Financial 00:00:00 00:00:00 [place] [facility] History SDMS Food 2020-02-12 2020-02-12 1 Univers ity of Worry 00:00:00 00:00:00 [place] [facility] History SDOH Food 2020-02-12 2020-02-12 1 Univers ity of Scarcity 00:00:00 00:00:00 [place] [facility] History SDOH 2020-02-12 2020-02-12 2 University o f Transport Med 00:00:00 00:00:00 [place] Medic al Branch History SDMS 2020-02-12 2020-02-12 2 University o f Transport Non-Med 00:00:00 00:00:00 [place] M edical Branch Tobacco use and 2016-10-22 2016-10-22 Never used Universit y of exposure 00:00:00 00:00:00 [facility] Sex Ass[birth year] Universit y of 00:00:00 00:00:00 [facility] Smoking Status Start Date Stop Date Source Never smoker [facility] Branch Medications Ordered Filled Start Stop Current Ordering Indication Dosage Frequency Signature Comments Components Source Medication Medication Date Date Medication? Clinician (SIG) Name Name ferrous Yes 325mg Take 325 Unive rs sulfate 325 1-13 mg by ity of mg (65 mg 19:14: mouth [place] iron) 07 every Medical tablet evening. Branch aspirin 81 Yes 81mg Take 81 mg U nivers mg chewable 1-13 by mouth ity of tablet 19:14: daily. Medical Branch mirtazapine Yes 15mg Take 15 mg Univers 15 mg 1-13 by mouth ity of tablet 19:14: at [place] bedtime. Medical Branch metoprolol Yes 25mg Take 25 mg U nivers tartrate 25 1-13 by mouth 2 it y of mg tablet 19:14: (two) [place] 07 times Medical daily. Branch atorvastati Yes 40mg Take 40 mg Univers n 40 mg 1-13 by mouth ity of tablet 19:14: at [place] [address] bedtime. Medical Branch ferrous Yes 325mg Take 325 Unive rs sulfate 325 1-13 mg by ity of mg (65 mg 19:14: mouth [place] iron) 07 every Medical tablet evening. Branch aspirin 81 Yes 81mg Take 81 mg U nivers mg chewable 1-13 by mouth ity of tablet 19:14: daily. Medical Branch mirtazapine Yes 15mg Take 15 mg Univers 15 mg 1-13 by mouth ity of tablet 19:14: at [place] [address] bedtime. Medical Branch metoprolol Yes 25mg Take 25 mg U nivers tartrate 25 1-13 by mouth 2 it y of mg tablet 19:14: (two) [place] 07 times Medical daily. Branch atorvastati Yes 40mg Take 40 mg Univers n 40 mg 1-13 by mouth ity of tablet 19:14: at [place] bedtime. Medical Branch ferrous Yes 325mg Take 325 Unive rs sulfate 325 1-13 mg by ity of mg (65 mg 19:14: mouth [place] iron) 07 every Medical tablet evening. Branch aspirin 81 0 Yes 81mg Take 81 mg U nivers mg chewable 1-13 by mouth ity of tablet 19:14: daily. Medical Branch mirtazapine Yes 15mg Take 15 mg Univers 15 mg 1-13 by mouth ity of tablet 19:14: at [place] [address] bedtime. Medical Branch metoprolol Yes 25mg Take 25 mg U nivers tartrate 25 1-13 by mouth 2 it y of mg tablet 19:14: (two) [place] times Medical daily. Branch atorvastati Yes 40mg Take 40 mg Univers n 40 mg 1-13 by mouth ity of tablet 19:14: at [place] [address] bedtime. Medical Branch ferrous Yes 325mg Take 325 Unive rs sulfate 325 1-13 mg by ity of mg (65 mg 19:14: mouth [place] iron) 07 every Medical tablet evening. Branch aspirin 81 Yes 81mg Take 81 mg U nivers mg chewable 1-13 by mouth ity of tablet 19:14: daily. Medical Branch mirtazapine Yes 15mg Take 15 mg Univers 15 mg 1-13 by mouth ity of tablet 19:14: at [place] [address] bedtime. Medical Branch metoprolol Yes 25mg Take 25 mg U nivers tartrate 25 1-13 by mouth 2 it y of mg tablet 19:14: (two) times Medical daily. Branch atorvastati Yes 40mg Take 40 mg Univers n 40 mg 1-13 by mouth ity of tablet 19:14: at [place] [address] bedtime. Medical Branch SERTraline 2016-02 Yes [id number] 50mg Take 1 U nivers 50 mg 0-10 tablet by ity of tablet 00:00: mouth [place] 00 daily. Medical Branch SERTraline 2016-02 Yes [id number] 50mg Take 1 U nivers 50 mg 0-10 tablet by ity of tablet 00:00: mouth [place] 00 daily. Medical Branch SERTraline 2016-02 Yes [id number] 50mg Take 1 U nivers 50 mg 0-10 tablet by ity of tablet 00:00: mouth [place] 00 daily. Medical Branch SERTraline 2016-02 Yes [id number] 50mg Take 1 U nivers 50 mg 0-10 tablet by ity of tablet 00:00: mouth [place] 00 daily. Medical Branch Immunizations Ordered Filled Immunization Date Status Comments Sourc e Immunization Name Name Influenza High Dose 2019-10-27 Completed Unive rsity of [place] 00:00:00 [facility] Influenza High Dose 2019-10-27 Completed Unive rsity of [place] 00:00:00 [facility] Influenza High Dose 2019-10-27 Completed Unive rsity of [place] 00:00:00 [facility] Influenza High Dose 2019-10-27 Completed Unive rsity of [place] 00:00:00 [facility] Pneumococcal 13 2015-11-19 Completed Universit y of Conjugate, PCV13 00:00:00 [facility] dical (Prevnar 13) Branch Influenza High Dose 2015-11-19 Completed Unive rsity of 00:00:00 [facility] Pneumococcal 13 2015-11-19 Completed Universit y of Conjugate, PCV13 00:00:00 [facility] dical (Prevnar 13) Branch Influenza High Dose 2015-11-19 Completed Unive rsity of 00:00:00 [facility] Pneumococcal 13 2015-11-19 Completed Universit y of Conjugate, PCV13 00:00:00 [facility] dical (Prevnar 13) Branch Influenza High Dose 2015-11-19 Completed Unive rsity of 00:00:00 [facility] Pneumococcal 13 2015-11-19 Completed Universit y of Conjugate, PCV13 00:00:00 [facility] dical (Prevnar 13) Branch Influenza High Dose 2015-11-19 Completed Unive rsity of 00:00:00 [facility] Procedures Procedure Date / Time Performed Performing Clinician Sourc e [id number] 2020-11-26 00:00:00 [facility] [id number] 2020-11-26 00:00:00 [facility] [id number] 2020-11-26 00:00:00 [facility] [id number] 2020-11-26 00:00:00 [facility] [id number] 2020-11-26 00:00:00 [facility] [id number] 2020-02-29 00:00:00 MICHOACANO [facility] [id number] 2019-12-22 00:00:00 NIKKI [facility] [id number] 2019-12-22 00:00:00 FAROM [facility] [id number] 2019-12-22 00:00:00 FAROM [facility] [id number] 2019-12-22 00:00:00 MOUMA [facility] [id number] 2019-12-16 00:00:00 FAROM [facility] [id number] 2019-12-14 00:00:00 RANRO [facility] [id number] 2019-12-04 00:00:00 MCKRO [facility] [id number] 2019-11-30 00:00:00 KRO [facility] [id number] 2019-11-30 00:00:00 KRO [facility] [id number] 2019-11-30 00:00:00 MCKRO [facility] [id number] 2019-11-30 00:00:00 MCKRO [facility] [id number] 2019-11-30 00:00:00 MCKRO [facility] [id number] 2019-11-30 00:00:00 KRO [facility] [id number] 2019-11-30 [facility] Planned Activity Planned Date Details Comments Source Future Scheduled 2020-10-09 INFLUENZA VACCINE (#1) [facility] 00:[facility]:00 [code = INFLUENZA Medical Ce nter VACCINE (#1)] Future Scheduled 2020-10-09 INFLUENZA VACCINE (#1) [facility] Test 00:00:00 [code = INFLUENZA Medical Ce nter VACCINE (#1)] Future Scheduled 2020-02-09 FALLS RISK SCREENING [facility] - Test 00:00:00 [code = FALLS RISK Medical C enter SCREENING] Future Scheduled 2020-02-[address] [facility] - Test 00:00:00 (12+) [code = Medical Center DEPRESSION SCREENING (12+)] Future Scheduled 2020-02-09 FALLS RISK SCREENING [facility] - Test 00:00:00 [code = FALLS RISK Medical C enter SCREENING] Future Scheduled 2020-02-[address] [facility] - Test 00:00:00 (12+) [code = Medical Center DEPRESSION SCREENING (12+)] Future Scheduled 2005-10-[address] [facility] - Test 00:00:00 WELLNESS (YEAR 2 or Medical Center FIRST YEAR if no IPPE) [code = MEDICARE ANNUAL WELLNESS (YEAR 2 or FIRST YEAR if no IPPE)] Future Scheduled 2005-10-[address] [facility] - Test 00:00:00 WELLNESS (YEAR 2 or Medical Center FIRST YEAR if no IPPE) [code = MEDICARE ANNUAL WELLNESS (YEAR 2 or FIRST YEAR if no IPPE)] Future Scheduled 2004-10-28 PNEUMOCOCCAL 65+ YRS [facility] - Test 00:00:00 (1 of 1 - Medical Center [id number] PCV13) [code = PNEUMOCOCCAL 65+ YRS (1 of 1 - [id number] PCV13)] Future Scheduled 2004-10-28 PNEUMOCOCCAL 65+ YRS [facility] - Test 00:00:00 (1 of 1 - Medical Center [id number] PCV13) [code = PNEUMOCOCCAL 65+ YRS (1 of 1 - [id number] PCV13)] Future Scheduled 1989-10-28 SHINGLES VACCINES ([address] [facility] - Test 00:00:00 of 2) [code = SHINGLES Medic al Center VACCINES (1 of 2)] Future Scheduled 1989-10-28 SHINGLES VACCINES ([address] [facility] - Test 00:00:00 of 2) [code = SHINGLES Medic al Center VACCINES (1 of 2)] Future Scheduled 1958-10-28 DTAP/TDAP/TD [facility]ACCINES [facility] Test 00:00:00 (1 - Tdap) [code = Medical C enter DTAP/TDAP/TD VACCINES (1 - Tdap)] Future Scheduled 1958-10-28 DTAP/TDAP/TD [facility]ACCINES [facility] Test 00:00:00 (1 - Tdap) [code = Medical C enter DTAP/TDAP/TD VACCINES (1 - Tdap)] Future Scheduled 1951 COVID-19 VACCINE (1) [facility] - Test 00:00:00 [code = COVID-[address] VACCINE (1)] Future Scheduled 1952 COVID-19 VACCINE (1) [facility] - Test 00:00:00 [code = COVID-[address] VACCINE (1)] Encounters Start End Encounter Admission Attending Care Care Encounter Source Date/Time Date/Time Type Type Clinicians Facility Department ID 2020-12-07 Emergency [facility] [id number] Univers 14:37:47 ity of [facility] 2020-12-07 Emergency [facility] [id number] Univers 13:11:36 ity of [facility] 2020-12-06 Emergency [facility] [id number] Univers 23:34:44 ity [facility] 2020-12-06 Emergency [facility] [id number] [facility] 2020-[facility] Inpatient [facility] ELISHA [id number] [facility] 13:51:00 [id number] [facility] 2019-11-26 Inpatient [facility] ELISHA [id number] [facility] 19:03:00 [id number] [facility] 2019-11-25 Inpatient EL Dabaghi, [facility] [id number] [facility] 07:00:00 Sali [id number] [facility] 2021-01-22 2021-01-22 Letter Nurse, Davon [facility] [id number] Univers 00:00:00 00:00:00 (Out) Db Urgent HEALTH 350.1.13.10 ity [facility] 4.2.7.2.686 [place] as SAUNDRA?BLEA [id number] [facility] [address] MEDICAL OFFICE BUILDING 2021-01-21 2021-01-21 Telephone Nurse, Davon [facility] [id number] Univers 00:00:00 00:00:00 Db HEALTH 350.1.13.10 it y of [place] 4.2.7.2.686 [place] as SAUNDRA?BLEA [id number] [facility] [address] MEDICAL OFFICE BUILDING 2021-01-18 2021-01-18 Letter GIORGI Barkley [id number] Univers 00:00:00 00:00:00 (Out) Carmen [place] 350.1.13.10 it y of [facility] 4.2.7.2.686 [place] as [id number] [address] 2021-01-17 2021-01-17 Outpatient R [facility] [id number] Univers 15:30:00 15:30:00 [id number] ity [facility] 2021-01-17 2021-01-17 Outpatient R REGIS [facility] [id number] Univers 15:30:00 15:30:00 [facility] 2021-01-17 2021-01-17 Laboratory Only, Ang Db Test [facility] 1.2.8 [id number] Univers 15:13:32 15:28:32 Only Regis [facility] 350.1.13.10 ity of [place] 4.2.7.2.686 [place] as SAUNDRA?BLEA [id number] [address] MEDICAL OFFICE BUILDING 2020-11-26 2020-12-07 Inpatient EL Arvind, [facility]G [id number] [facility] 15:35:00 15:04:00 [place] [id number] [facility] 2020-11-26 2020-12-07 Inpatient EL Arvind, [facility] SURG [id number] [facility] 15:35:00 15:04:00 Tevin 80 [facility] 2020-11-25 2020-11-[address] [facility] [id number] [facility] 00[facility]00 [facility] 2020-11-21 2020-11-21 Outpatient EL Arvind, HCA[facility] 3DAY [id number] [facility] 09:00:00 23:00:00 [place] 56 [facility] 2020-11-21 2020-11-21 Outpatient EL Arvind, [facility] 3DAY [id number] [facility] 09:00:00 09:00:00 [place] [id number] [facility] 2020-09-17 2020-09-[address] [facility] [id number] 00:[facility] 00:00:00 [facility] 2020-06-17 2020-06-[address] [facility] [id number] [facility] 00:00:00 00:00:00 [facility] 2020-04-18 2020-04-18 Outpatient R LAURA, [facility] [id number] Univers 11:00:00 11:00:00 LEILANI [id number] [facility] 2020-04-18 2020-04-18 Outpatient R LAURA, [facility] [id number] Univers 11:00:00 11:00:00 LEILANI [facility] 2020-03-26 2020-03-26 Outpatient R LAURA [facility] [id number] Univers 16:00:00 16:00:00 LEILANI [id number] [facility] 2020-03-04 2020-03-04 Orders Doctor GIORGI [id number] 00:00:00 00:00:00 Only Unassigned, DESEAN 350.1.13.10 [place] [facility] 4.2.7.2.686 [id number] 2020-02-22 2020-02-22 Transition Zuhair Ragland [id number] 00:00:00 00:00:00 of Care Lisa Leivay 350.1.13.10 [place] 4.2.7.2.686 [id number] 2019-11-29 2019-11-29 Outpatient R [facility] [id number] Univers 09:40:00 09:40:00 [id number] ity [facility] 2019-11-29 2019-11-29 Outpatient R [facility] [id number] Univers 09:40:00 09:40:00 ity [facility] 2019-11-17 2019-11-17 Outpatient R LUCILA, [facility] [id number] Univers 11:20:00 11:20:00 SANTOS ity [facility] 2019-08-04 2019-08-04 Outpatient R [facility] [id number] Univers 17:20:00 17:20:00 [id number] ity [facility] 2019-08-04 2019-08-04 Outpatient Joby GAYTAN, [facility] [id number] Univers 17:20:00 17:20:00 SANTOS varma of [facility] Results Test Description Test Time Test Comments Results Result Comments Source PTT ACTIVATED 2020-12-07 09:52:00 Test Item Value Reference Range Interpretation Comme nts PTT ACTIVATED (test code = APTT) 53.0 SECONDS 25.1-36.5 H PROTHROMBIN [id number] 05:27:00 Test Item Value Reference Range Interpretation Comments PROTHROMBIN TIME 22.2 SECONDS 9.5-12.7 H PATIENT (test code = PTP) INTERNATIONAL NORMAL 2.0 0.86-1.14 H The INR is to be RATIO (test [...] syste eric embolism. 3.0 - 4.5 PROTHROMBIN [id number] 15:22:00 Test Item Value Reference Range Interpretation Comments PROTHROMBIN TIME 18.0 SECONDS 9.5-12.7 H PATIENT (test code = PTP) INTERNATIONAL NORMAL 1.6 0.86-1.14 H The INR is to be RATIO (test [...] eric embolism. 3.0 - 4.5 BASIC METABOLIC [id number] 12:35:00 Test Item Value Reference Range Interpretation Comments SODIUM (test code = 134 MMOL/L 137-145 L NA) POTASSIUM (test code = 4.4 MMOL/L 3.5-5.1 N K) CHLORIDE (test code = 106 MMOL/L 98-107 N CL) CARBON DIOXIDE (test 23 MMOL/L 22-30 N code = CO2) GLUCOSE (test code = 106 MG/DL 74-106 N GLU) BLOOD UREA NITROGEN 6 MG/DL 7-17 L (test code = BUN) GLOMERULAR FILTRATION > 60 Report ing units: RATE (test code = GFR) ml/mi n/1.73 m2 (Modified MDRD Formula)Referen ce Range: > or = 6 0 ml/min/1.73 m2 CREATININE (test code 0.80 MG/DL 0.52-1.04 N = CREAT) CALCIUM (test code = 8.0 MG/DL 8.4-10.2 L CA) PTT [id number] 10:39:00 Test Item Value Reference Range Interpretation Comments PTT ACTIVATED (test 66.2 SECONDS 25.1-36.5 HH CALLED T Roseanne SOTELO O & code = APTT) READBACK ON AT 1038 BY Ilan Loo PTT [id number] 09:21:00 Test Item Value Reference Range Interpretation Comments PTT ACTIVATED (test code = APTT) 56.4 SECONDS 25.1-36.5 H Comments to Human Factors Engineer: HEPARIN DRIP PROTOCOLPTT [id number] 04:30:00 Test Item Value Reference Range Interpretation Comments PTT ACTIVATED (test code = APTT) 59.0 SECONDS 25.1-36.5 H Comments to Human Factors Engineer: HEPARIN DRIP [id number] 04:21:00 Test Item Value Reference Range Interpretation Comments HEMOGLOBIN (test code = HGB) 8.6 G/DL 11.2-14.9 L PTT [id number] 18:42:00 Test Item Value Reference Range Interpretation Comments PTT ACTIVATED (test 64.2 SECONDS 25.1-36.5 HH CALLED T O JOSE.O & code = APTT) READBACK ON AT 1838 BY Marcella Maria PTT [id number] 15:02:00 Test Item Value Reference Range Interpretation Comments PTT ACTIVATED (test code = APTT) 35.5 SECONDS 25.1-36.5 PTT [id number] 09:23:00 Test Item Value Reference Range Interpretation Comments PTT ACTIVATED (test 65.8 SECONDS 25.1-36.5 HH CALLED T O Jubril A & code = APTT) READBACK ON AT 0920 BY Myrna Rosario BASIC METABOLIC [id number] 04:47:00 Test Item Value Reference Range Interpretation Comments SODIUM (test code = 142 MMOL/L 137-145 N NA) POTASSIUM (test code = 3.0 MMOL/L 3.5-5.1 L K) CHLORIDE (test code = 114 MMOL/L 98-107 H CL) CARBON DIOXIDE (test 21 MMOL/L 22-30 L code = CO2) ANION GAP (test code = 10 MMOL/L 14-24 L GAP) GLUCOSE (test code = 74 MG/DL 74-106 N GLU) BLOOD UREA NITROGEN 11 MG/DL 7-17 N (test code = BUN) GLOMERULAR FILTRATION > 60 Report ing units: RATE (test code = GFR) ml/mi n/1.73 m2 (Modified MDRD Formula)Referen ce Range: > or = 6 0 ml/min/1.73 m2 CREATININE (test code 0.80 MG/DL 0.52-1.04 N = CREAT) CALCIUM (test code = 7.7 MG/DL 8.4-10.2 L CA) CBC W/AUTO [id number] 04:36:00 Test Item Value Reference Range Interpretation Comments WHITE BLOOD CELL (test code = 10.8 K/MM3 3.8-9.8 H WBC) RED BLOOD CELL (test code = 2.61 M/MM3 3.58-4.97 L RBC) HEMOGLOBIN (test code = HGB) 8.1 G/DL 11.2-14.9 L HEMATOCRIT (test code = HCT) 25.2 % 33.2-43.5 L MEAN CELL VOLUME (test code = 97 fL 80.7-99.1 N MCV) MEAN CELL HGB (test code = MCH) 31.0 pg 27.0-34.1 N MEAN CELL HGB CONCETRATION 32.1 % 32.2-35.7 L (test code = MCHC) RED CELL DISTRIBUTION WIDTH 15.0 % 12.1-15.2 N (test code = RDW) PLATELET COUNT (test code = 203 K/MM3 129-368 N PLT) MEAN PLATELET VOLUME (test code 10.7 fl 7.4-10.4 H = MPV) NEUTROPHIL % (test code = NT%) 73.0 % 43-75 N IMMATURE GRANULOCYTE % (test 0.5 % 0.0-2.0 N code = IG%) LYMPHOCYTE % (test code = LY%) 14.9 % 14-44 N MONOCYTE % (test code = MO%) 4.5 % 4-13 N EOSINOPHIL % (test code = EO%) 6.8 % 0-6 H BASOPHIL % (test code = BA%) 0.3 % 0-2 N NUCLEATED RBC % (test code = 0.0 % 0-1.0 N NRBC%) NEUTROPHIL # (test code = NT#) 7.87 K/mm3 2.0-7.6 H IMMATURE GRANULOCYTE # (test 0.05 x10 3/uL 0-0.03 H code = IG#) LYMPHOCYTE # (test code = LY#) 1.61 K/mm3 1.0-3.8 N MONOCYTE # (test code = MO#) 0.48 K/mm3 0.1-0.8 N EOSINOPHIL # (test code = EO#) 0.73 K/mm3 0.0-0.2 H BASOPHIL # (test code = BA#) 0.03 K/mm3 0.0-0.2 N NUCLEATED RBC # (test code = 0.00 K/mm3 0.0-0.1 N NRBC#) PTT [id number] 01:53:00 Test Item Value Reference Range Interpretation Comments PTT ACTIVATED (test 89.5 SECONDS 25.1-36.5 HH CALLED Ta Hamm & code = APTT) READBACK ON AT 0148 BY Min Hope PTT [id number] 16:40:00 Test Item Value Reference Range Interpretation Comments PTT ACTIVATED (test 80.1 SECONDS 25.1-36.5 HH CALLED Ta GRANT code = APTT) & READBACK ON 12/03/20 AT 163 7 BY Marcella Maria PTT [id number] 11:45:00 Test Item Value Reference Range Interpretation Comments PTT ACTIVATED (test 67.8 SECONDS 25.1-36.5 HH CALLED Ta Cronin CHRISSY G code = APTT) & READBACK ON 12/03/20 AT 114 5 BY Quan Rosario PLATELET [id number] 11:06:00 Test Item Value Reference Range Interpretation Comments PLATELET COUNT (test code = PLT) 187 K/MM3 129-368 N PTT [id number] 04:50:00 Test Item Value Reference Range Interpretation Comments PTT ACTIVATED (test 83.4 SECONDS 25.1-36.5 HH CALLED Ta JIN code = APTT) & READBACK ON 12/03/20 AT 045 0 BY Min Aquino PTT [id number] 22:30:00 Test Item Value Reference Range Interpretation Comments PTT ACTIVATED (test code = APTT) 33.1 SECONDS 25.1-36.5 N PROTHROMBIN [id number] 16:22:00 Test Item Value Reference Range Interpretation Comments PROTHROMBIN TIME 23.2 SECONDS 9.5-12.7 H PATIENT (test code = PTP) INTERNATIONAL NORMAL 2.1 0.86-1.14 H The INR is to be RATIO (test [...] - 4.5 UNABLE TO DRAW BLOOD, REASON: HARDSTICKNOTIFIED PATIENT CARE STAFF: DANILO HARRY 12/02/20 AT 1349 Negrita,AngPTT [id number] 16:22:00 Test Item Value Reference Range Interpretation Comments PTT ACTIVATED (test code = APTT) 33.9 SECONDS 25.1-36.5 UNABLE TO DRAW BLOOD, REASON: HARDSTICKNOTIFIED PATIENT CARE STAFF: DANILO HARRY 12/02/20 AT 1349 NegritaAng- XR ABDOMEN [id number] 07:55:00 [facility] 1940 Sex: F Patient Name: JORGE A HORTA Unit No: [id number] EXAMS: CPT CODE: [id number] XR ABDOMEN 2V 23319 EXAMINATION: 2 AP supine and upright view(s) of the abdomenINDICATION: abd distension COMPARISON: CT abdomen and pelvis 01/02/2020 LOCATION: S17 FINDINGS: Diffuse mild gaseous distention of stomach and small bowel. Several of the small bowel loops are upper limit of normal in caliber. There is no distal gas identified. Findings likely represent ileus in the postoperative setting. Early or partial obstruction also possible. IMPRESSION: Findings likely represent mild ileus in the postoperative setting. Early/partial obstruction also possible. Attention on follow-up. at 0755 Reported and signed by: Loc Sagastume MD CC: Joe Higgins MD; Audrey Beltrán MD Technologist: Cheyanne Mirza, RT(R) Transcrpt Date/Tm/Trnsp: 12/02/2020 (0755) AuraPE1 Orig Print D/T: S: 12/02/2020 (0758) [facility] NAME: JORGE A HORTA [address] PHYS: [place] [address] : 1940 AGE: 80 SEX: F LOC: Z.619 A PHONE #: [phone] EXAM DATE: 12/02/2020 STATUS: ADM IN FAX #: [phone] RADIOLOGY NO: PAGE 1 Signed ReportBASIC METABOLIC [id number] 06:05:00 Test Item Value Reference Range Interpretation Comments SODIUM (test code = 145 MMOL/L 137-145 N NA) POTASSIUM (test code = 3.5 MMOL/L 3.5-5.1 N K) CHLORIDE (test code = 117 MMOL/L 98-107 H CL) CARBON DIOXIDE (test 22 MMOL/L 22-30 N code = CO2) ANION GAP (test code = 10 MMOL/L 14-24 L GAP) GLUCOSE (test code = 128 MG/DL 74-106 H GLU) BLOOD UREA NITROGEN 12 MG/DL 7-17 N (test code = BUN) GLOMERULAR FILTRATION 60 Report ing units: RATE (test code = GFR) ml/mi n/1.73 m2 (Modified MDRD Formula)Referen ce Range: > or = 6 0 ml/min/1.73 m2 CREATININE (test code 0.90 MG/DL 0.52-1.04 N = CREAT) CALCIUM (test code = 8.1 MG/DL 8.4-10.2 L CA) CBC W/AUTO [id number] 05:59:00 Test Item Value Reference Range Interpretation Comments WHITE BLOOD CELL (test code = 12.6 K/MM3 3.8-9.8 H WBC) RED BLOOD CELL (test code = 3.12 M/MM3 3.58-4.97 L RBC) HEMOGLOBIN (test code = HGB) 9.5 G/DL 11.2-14.9 L HEMATOCRIT (test code = HCT) 30.5 % 33.2-43.5 L MEAN CELL VOLUME (test code = 98 fL 80.7-99.1 N MCV) MEAN CELL HGB (test code = MCH) 30.4 pg 27.0-34.1 N MEAN CELL HGB CONCETRATION 31.1 % 32.2-35.7 L (test code = MCHC) RED CELL DISTRIBUTION WIDTH 14.9 % 12.1-15.2 N (test code = RDW) PLATELET COUNT (test code = 189 K/MM3 129-368 N PLT) MEAN PLATELET VOLUME (test code 11.0 fl 7.4-10.4 H = MPV) NEUTROPHIL % (test code = NT%) 75.3 % 43-75 H IMMATURE GRANULOCYTE % (test 0.7 % 0.0-2.0 N code = IG%) LYMPHOCYTE % (test code = LY%) 11.7 % 14-44 L MONOCYTE % (test code = MO%) 5.6 % 4-13 N EOSINOPHIL % (test code = EO%) 6.4 % 0-6 H BASOPHIL % (test code = BA%) 0.3 % 0-2 N NUCLEATED RBC % (test code = 0.0 % 0-1.0 N NRBC%) NEUTROPHIL # (test code = NT#) 9.48 K/mm3 2.0-7.6 H IMMATURE GRANULOCYTE # (test 0.09 x10 3/uL 0-0.03 H code = IG#) LYMPHOCYTE # (test code = LY#) 1.48 K/mm3 1.0-3.8 N MONOCYTE # (test code = MO#) 0.70 K/mm3 0.1-0.8 N EOSINOPHIL # (test code = EO#) 0.81 K/mm3 0.0-0.2 H BASOPHIL # (test code = BA#) 0.04 K/mm3 0.0-0.2 N NUCLEATED RBC # (test code = 0.00 K/mm3 0.0-0.1 N NRBC#) GLUCOSE BEDSIDE [id number] 11:06:00 Test Item Value Reference Range Interpretation Comments GLUCOSE BEDSIDE TESTING (test code 162 MG/DL 60-99 H = GLUBED) GLUCOSE BEDSIDE [id number] 06:19:00 Test Item Value Reference Range Interpretation Comments GLUCOSE BEDSIDE TESTING (test code 197 MG/DL 60-99 H = GLUBED) BASIC METABOLIC [id number] 05:48:00 Test Item Value Reference Range Interpretation Comments SODIUM (test code = 143 MMOL/L 137-145 N NA) POTASSIUM (test code = 3.0 MMOL/L 3.5-5.1 L K) CHLORIDE (test code = 116 MMOL/L 98-107 H CL) CARBON DIOXIDE (test 20 MMOL/L 22-30 L code = CO2) GLUCOSE (test code = 211 MG/DL 74-106 H GLU) BLOOD UREA NITROGEN 17 MG/DL 7-17 N (test code = BUN) GLOMERULAR FILTRATION 60 Report ing units: RATE (test code = GFR) ml/mi n/1.73 m2 (Modified MDRD Formula)Referen ce Range: > or = 6 0 ml/min/1.73 m2 CREATININE (test code 0.90 MG/DL 0.52-1.04 N = CREAT) CALCIUM (test code = 7.8 MG/DL 8.4-10.2 L CA) CBC W/AUTO [id number] 05:31:00 Test Item Value Reference Range Interpretation Comments WHITE BLOOD CELL (test code = 10.7 K/MM3 3.8-9.8 H WBC) RED BLOOD CELL (test code = 2.80 M/MM3 3.58-4.97 L RBC) HEMOGLOBIN (test code = HGB) 8.6 G/DL 11.2-14.9 L HEMATOCRIT (test code = HCT) 27.3 % 33.2-43.5 L MEAN CELL VOLUME (test code = 98 fL 80.7-99.1 N MCV) MEAN CELL HGB (test code = MCH) 30.7 pg 27.0-34.1 N MEAN CELL HGB CONCETRATION 31.5 % 32.2-35.7 L (test code = MCHC) RED CELL DISTRIBUTION WIDTH 14.8 % 12.1-15.2 N (test code = RDW) PLATELET COUNT (test code = 162 K/MM3 129-368 N PLT) MEAN PLATELET VOLUME (test code 10.8 fl 7.4-10.4 H = MPV) NEUTROPHIL % (test code = NT%) 79.2 % 43-75 H IMMATURE GRANULOCYTE % (test 0.6 % 0.0-2.0 N code = IG%) LYMPHOCYTE % (test code = LY%) 9.2 % 14-44 L MONOCYTE % (test code = MO%) 7.7 % 4-13 N EOSINOPHIL % (test code = EO%) 3.1 % 0-6 N BASOPHIL % (test code = BA%) 0.2 % 0-2 N NUCLEATED RBC % (test code = 0.0 % 0-1.0 N NRBC%) NEUTROPHIL # (test code = NT#) 8.47 K/mm3 2.0-7.6 H IMMATURE GRANULOCYTE # (test 0.06 x10 3/uL 0-0.03 H code = IG#) LYMPHOCYTE # (test code = LY#) 0.98 K/mm3 1.0-3.8 L MONOCYTE # (test code = MO#) 0.82 K/mm3 0.1-0.8 H EOSINOPHIL # (test code = EO#) 0.33 K/mm3 0.0-0.2 H BASOPHIL # (test code = BA#) 0.02 K/mm3 0.0-0.2 N NUCLEATED RBC # (test code = 0.00 K/mm3 0.0-0.1 N NRBC#) GLUCOSE BEDSIDE [id number] 19:32:00 Test Item Value Reference Range Interpretation Comments GLUCOSE BEDSIDE TESTING (test code 134 MG/DL 60-99 H = GLUBED) GLUCOSE BEDSIDE [id number] 15:53:00 Test Item Value Reference Range Interpretation Comments GLUCOSE BEDSIDE TESTING (test code 119 MG/DL 60-99 H = GLUBED) GLUCOSE BEDSIDE [id number] 11:17:00 Test Item Value Reference Range Interpretation Comments GLUCOSE BEDSIDE TESTING (test code 122 MG/DL 60-99 H = GLUBED) GLUCOSE BEDSIDE [id number] 08:19:00 Test Item Value Reference Range Interpretation Comments GLUCOSE BEDSIDE TESTING (test code = 52 MG/DL 60-99 L GLUBED) GLUCOSE BEDSIDE [id number] 06:18:00 Test Item Value Reference Range Interpretation Comments GLUCOSE BEDSIDE TESTING (test code = 52 MG/DL 60-99 L GLUBED) BASIC METABOLIC [id number] 05:43:00 Test Item Value Reference Range Interpretation Comments SODIUM (test code = 145 MMOL/L 137-145 N NA) POTASSIUM (test code = 3.9 MMOL/L 3.5-5.1 N K) CHLORIDE (test code = 117 MMOL/L 98-107 H CL) CARBON DIOXIDE (test 19 MMOL/L 22-30 L code = CO2) GLUCOSE (test code = 55 MG/DL 74-106 L GLU) BLOOD UREA NITROGEN 23 MG/DL 7-17 H (test code = BUN) GLOMERULAR FILTRATION 48 Report ing units: RATE (test code = GFR) ml/mi n/1.73 m2 (Modified MDRD Formula)Referen ce Range: > or = 6 0 ml/min/1.73 m2 CREATININE (test code 1.10 MG/DL 0.52-1.04 H = CREAT) CALCIUM (test code = 8.4 MG/DL 8.4-10.2 N CA) CBC W/AUTO [id number] 05:28:00 Test Item Value Reference Range Interpretation Comments WHITE BLOOD CELL (test code = 13.4 K/MM3 3.8-9.8 H WBC) RED BLOOD CELL (test code = 3.01 M/MM3 3.58-4.97 L RBC) HEMOGLOBIN (test code = HGB) 9.3 G/DL 11.2-14.9 L HEMATOCRIT (test code = HCT) 29.4 % 33.2-43.5 L MEAN CELL VOLUME (test code = 98 fL 80.7-99.1 N MCV) MEAN CELL HGB (test code = MCH) 30.9 pg 27.0-34.1 N MEAN CELL HGB CONCETRATION 31.6 % 32.2-35.7 L (test code = MCHC) RED CELL DISTRIBUTION WIDTH 15.2 % 12.1-15.2 N (test code = RDW) PLATELET COUNT (test code = 162 K/MM3 129-368 N PLT) MEAN PLATELET VOLUME (test code 10.7 fl 7.4-10.4 H = MPV) NEUTROPHIL % (test code = NT%) 80.2 % 43-75 H IMMATURE GRANULOCYTE % (test 0.5 % 0.0-2.0 N code = IG%) LYMPHOCYTE % (test code = LY%) 8.7 % 14-44 L MONOCYTE % (test code = MO%) 5.8 % 4-13 N EOSINOPHIL % (test code = EO%) 4.6 % 0-6 N BASOPHIL % (test code = BA%) 0.2 % 0-2 N NUCLEATED RBC % (test code = 0.0 % 0-1.0 N NRBC%) NEUTROPHIL # (test code = NT#) 10.72 K/mm3 2.0-7.6 H IMMATURE GRANULOCYTE # (test 0.07 x10 3/uL 0-0.03 H code = IG#) LYMPHOCYTE # (test code = LY#) 1.16 K/mm3 1.0-3.8 N MONOCYTE # (test code = MO#) 0.77 K/mm3 0.1-0.8 N EOSINOPHIL # (test code = EO#) 0.62 K/mm3 0.0-0.2 H BASOPHIL # (test code = BA#) 0.03 K/mm3 0.0-0.2 N NUCLEATED RBC # (test code = 0.00 K/mm3 0.0-0.1 N NRBC#) SMALL [id number] 15:29:00 Test Item Value Reference Range Interpretation Comments SMALL INTESTINE (test code = SMINTEST) RUN DATE: 11/29/20 [facility] [employer] [facility] PAGE 1 RUN TIME: 1530 Specimen Inquiry RUN USER: INTERFACE LAUREN ENT: JORGE A HORTA LOC: [facility] [place] U #: [id number] AGE/SX: 80/F ROOM: [facility] RE11/26/20REG DR: Audrey Beltrán MD : 38 BED: A DIS: STATUS: ADM IN TLOC: SPEC #: [id number]:[id number] RECD: 11/27/20 STATUS: DEVORA ALLEN #: [id number] KEENAN: 11/26/20 [facility] DR: Audrey Beltrán MD ENTERED: 11/27/20 SP TYPE: SMALL INTE OTHR DR: Louise Burrell MD R1 Joe Higgins MD, Ryan DO R1 Alec Dean MD Undefined ProviderORDERED: SURG PATH LVL 5, SURG PATH LVL 3 CODES: 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 - MUCOUS MEMBRANE DEGENERATION, N J95770 - SMALL INTESTINE [id number] - LARGE INTESTINE EXCISION, NOS C71270 - COLON, NOS SL7101 - SURGICAL MARGIN COPIES TO: Louise Burrell MD R1 [address] [place] [address] Joe Higgins MD [address] [place] [address] [address] [place] [address] Jose Bartlett DO R1 [address] [place] [address] [place] [address] [place] [address] Audrey [place]án [place] [address] [place] [address] [email or web address] Undefined Provider PROCEDURES: SURG PATH LVL 5 (11/27/20) SURG PATH LVL 3 (11/29/20) CONTINUED ON NEXT PAGE RUN DATE: 11/29/20 [place] - [facility] PAGE 2 RUN TIME: 1530 Specimen Inquiry RUN USER: INTERFACE SPEC #: [id number]:COCHRAN:[id number] PATIENT: JORGE A HORTA #[id number] (Continued) ------- TISSUES: A. SMALL INTESTINE, NOS - SMALL BOWEL ILEOSTOMY B. COLON, NOS - COLON CPT CODES CPT CODE(S): [id number] , 52773 , , , , , FINAL DIAGNOSIS A. Ileostomy, takedown: - MILD, NONSPECIFIC, DEGENERATIVE AND REGENERATIVE CHANGES OF PERISTOMATIC MUCOSA, OTHERWISE UNREMARKABLE - SURGICAL MARGINS VIABLE B. Large intestine, segmental resection (5.5 cm): - NO SIGNIFICANT PATHOLOGIC CHANGE IDENTIFIED GROSS DESCRIPTION A. Ileostomy small bowel. The specimen consists of a segment of bowel with surrounding adipose tissue and opening at one end surrounded by a rim of skin and an opposite stapled margin. It has a length of 6.5 cm and a circumference of 4 cm. No lesions are grossly noted. The stapled margin submitted as A1. Sections through the opening, including surrounding rim of skin as A2, and normal-appearing bowel as A3. B. Colon. Received is a segment of colon with two stapled ends measuring 5.5 cm in length and has a circumference of 5.8 cm. The mucosal surface has a flat smooth appearance. No lesions are grossly identified. Submitted as B1 and B2 margins, and B3 section of flat colon mucosa. /tc/pdb MICROSCOPIC DESCRIPTION A. Ileostomy small bowel. Mild superficial erosion of peristomatic mucosa with regenerative change. No atypical features. B. Colon. Benign colon segment with minimal reactive changes of mucosa and benign intramucosal lymphoid aggregates. No atypical features. /pdb Signed SIGNATURE ON FILE Juan Lewis Roseanne 11/29/20 1529 END OF REPORT - XR KNEE 1 OR 2 V [id number] 13:57:00 [facility] 1940 Sex: F Patient Name: JORGE A HORTA Unit No: [id number] EXAMS: CPT CODE: [id number] XR KNEE 1 OR 2 V LT 40330 EXAM: XR KNEE 2 VIEWS, LEFT INDICATION: KNEE PAIN LOCATION: B2 COMPARISON: None available TECHNIQUE: AP and lateral views of the left knee. FINDINGS: No acute fracture or dislocation is identified. No osseous lesions. There is joint space narrowing of the left knee joint with subchondral sclerosis and tricompartmental osteophytes. No joint effusion. No soft tissue abnormality is identified. IMPRESSION: No acute osseous abnormality of the left knee. Mild DJD of the left knee. at 1357 Reported and signed by: Leona Wen MD CC: Louise Burrell MD; Joe Higgins MD; Audrey Beltrán MD Technologist: Larry Hinkle (RT) (R) Transcrpt Date/Tm/Trnsp: 11/29/2020 (1357) 16 Orig Print D/T: S: 11/29/2020 (1400) [facility] NAME: JORGE A HORTA [address] PHYS: [id number] [place] [address] : 1940 AGE: 80 SEX: F LOC: Z.533 A PHONE #: [phone] EXAM DATE: 11/29/2020 STATUS: ADM IN FAX #: [phone] RADIOLOGY NO: PAGE 1 Signed ReportBASIC METABOLIC [id number] 06:24:00 Test Item Value Reference Range Interpretation Comments SODIUM (test code = 141 MMOL/L 137-145 N NA) POTASSIUM (test code = 3.5 MMOL/L 3.5-5.1 N K) CHLORIDE (test code = 115 MMOL/L 98-107 H CL) CARBON DIOXIDE (test 17 MMOL/L 22-30 L code = CO2) GLUCOSE (test code = 63 MG/DL 74-106 L GLU) BLOOD UREA NITROGEN 26 MG/DL 7-17 H (test code = BUN) GLOMERULAR FILTRATION 48 Report ing units: RATE (test code = GFR) ml/mi n/1.73 m2 (Modified MDRD Formula)Referen ce Range: > or = 6 0 ml/min/1.73 m2 CREATININE (test code 1.10 MG/DL 0.52-1.04 H = CREAT) CALCIUM (test code = 8.2 MG/DL 8.4-10.2 L CA) CBC W/AUTO [id number] 06:10:00 Test Item Value Reference Range Interpretation Comments WHITE BLOOD CELL (test code = 13.5 K/MM3 3.8-9.8 H WBC) RED BLOOD CELL (test code = 2.68 M/MM3 3.58-4.97 L RBC) HEMOGLOBIN (test code = HGB) 8.3 G/DL 11.2-14.9 L HEMATOCRIT (test code = HCT) 25.9 % 33.2-43.5 L MEAN CELL VOLUME (test code = 97 fL 80.7-99.1 N MCV) MEAN CELL HGB (test code = MCH) 31.0 pg 27.0-34.1 N MEAN CELL HGB CONCETRATION 32.0 % 32.2-35.7 L (test code = MCHC) RED CELL DISTRIBUTION WIDTH 15.4 % 12.1-15.2 H (test code = RDW) PLATELET COUNT (test code = 137 K/MM3 129-368 N PLT) MEAN PLATELET VOLUME (test code 10.9 fl 7.4-10.4 H = MPV) NEUTROPHIL % (test code = NT%) 82.0 % 43-75 H IMMATURE GRANULOCYTE % (test 0.6 % 0.0-2.0 N code = IG%) LYMPHOCYTE % (test code = LY%) 8.7 % 14-44 L MONOCYTE % (test code = MO%) 6.5 % 4-13 N EOSINOPHIL % (test code = EO%) 1.9 % 0-6 N BASOPHIL % (test code = BA%) 0.3 % 0-2 N NUCLEATED RBC % (test code = 0.0 % 0-1.0 N NRBC%) NEUTROPHIL # (test code = NT#) 11.04 K/mm3 2.0-7.6 H IMMATURE GRANULOCYTE # (test 0.08 x10 3/uL 0-0.03 H code = IG#) LYMPHOCYTE # (test code = LY#) 1.17 K/mm3 1.0-3.8 N MONOCYTE # (test code = MO#) 0.88 K/mm3 0.1-0.8 H EOSINOPHIL # (test code = EO#) 0.25 K/mm3 0.0-0.2 H BASOPHIL # (test code = BA#) 0.04 K/mm3 0.0-0.2 N NUCLEATED RBC # (test code = 0.00 K/mm3 0.0-0.1 N NRBC#) UA RFLX MICR CULT IF [id number] 22:07:00 Test Item Value Reference Range Interpretation Comments UA COLOR (test code = YELLOW YELLOW COLU) UA APPEARANCE (test code CLEAR CLEAR = APPU) UA GLUCOSE DIPSTICK (test NORMAL MG/DL NORMAL code = DGLUU) UA BILIRUBIN DIPSTICK NEGATIVE MG/DL NEGATIVE (test code = BILU) UA KETONE DIPSTICK (test 50 MG/DL NEGATIVE A code = KETU) UA SPECIFIC GRAVITY (test 1.020 1.003-1.030 N code = SGU) UA BLOOD DIPSTICK (test NEGATIVE Kai/mm3 NEGATIVE code = AMPARO) UA PH DIPSTICK (test code 5.0 5.0-9.0 N = AJ) UA PROTEIN DIPSTICK (test NEGATIVE MG/DL NEGATIVE code = PROU) UA UROBILINIOGEN DIPSTICK NORMAL MG/DL NORMAL (test code = URO) UA NITRITE DIPSTICK (test NEGATIVE NEGATIVE code = GAIL) UA LEUKOCYTE ESTERASE NEGATIVE /mm3 NEGATIVE DIPSTICK (test code = LEUU) UA CULTURE NEEDED? (test NEGATIVE, NO CULTURE Culture Chk code = UACULT) Criteria Indication for culture: RiskForSepsis-no oth srcB [id number] 11:59:00 Test Item Value Reference Range Interpretation Comments HEMOGLOBIN (test code = HGB) 8.4 G/DL 11.2-14.9 L HEMATOCRIT (test code = HCT) 26.5 % 33.2-43.5 L BASIC METABOLIC [id number] 06:23:00 Test Item Value Reference Range Interpretation Comments [...] MG/DL 74-106 L GLU) BLOOD UREA NITROGEN 30 MG/DL 7-17 H (test code = BUN) GLOMERULAR FILTRATION 39 Report ing units: RATE (test code = GFR) ml/mi n/1.73 m2 (Modified MDRD Formula)Referen ce Range: > or = 6 0 ml/min/1.73 m2 CREATININE (test code 1.30 MG/DL 0.52-1.04 H = CREAT) CALCIUM (test code = 8.3 MG/DL 8.4-10.2 L CA) CBC W/AUTO [id number] 02:38:00 Test Item Value Reference Range Interpretation Comments WHITE BLOOD CELL (test code = 13.0 K/MM3 3.8-9.8 H WBC) RED BLOOD CELL (test code = 2.35 M/MM3 3.58-4.97 L RBC) HEMOGLOBIN (test code = HGB) 7.4 G/DL 11.2-14.9 L HEMATOCRIT (test code = HCT) 23.4 % 33.2-43.5 L MEAN CELL VOLUME (test code = 100 fL 80.7-99.1 H MCV) MEAN CELL HGB (test code = MCH) 31.5 pg 27.0-34.1 N MEAN CELL HGB CONCETRATION 31.6 % 32.2-35.7 L (test code = MCHC) RED CELL DISTRIBUTION WIDTH 13.5 % 12.1-15.2 N (test code = RDW) PLATELET COUNT (test code = 126 K/MM3 129-368 L PLT) MEAN PLATELET VOLUME (test code 11.3 fl 7.4-10.4 H = MPV) NEUTROPHIL % (test code = NT%) 80.2 % 43-75 H IMMATURE GRANULOCYTE % (test 0.5 % 0.0-2.0 N code = IG%) LYMPHOCYTE % (test code = LY%) 10.9 % 14-44 L MONOCYTE % (test code = MO%) 7.4 % 4-13 N EOSINOPHIL % (test code = EO%) 0.7 % 0-6 N BASOPHIL % (test code = BA%) 0.3 % 0-2 N NUCLEATED RBC % (test code = 0.0 % 0-1.0 N NRBC%) NEUTROPHIL # (test code = NT#) 10.38 K/mm3 2.0-7.6 H IMMATURE GRANULOCYTE # (test 0.07 x10 3/uL 0-0.03 H code = IG#) LYMPHOCYTE # (test code = LY#) 1.41 K/mm3 1.0-3.8 N MONOCYTE # (test code = MO#) 0.96 K/mm3 0.1-0.8 H EOSINOPHIL # (test code = EO#) 0.09 K/mm3 0.0-0.2 N BASOPHIL # (test code = BA#) 0.04 K/mm3 0.0-0.2 N NUCLEATED RBC # (test code = 0.00 K/mm3 0.0-0.1 N NRBC#) LACTIC [id number] 01:54:00 Test Item Value Reference Range Interpretation Comments LACTIC ACID (test code = LACT) 0.7 MMOL/L 0.7-2.1 N CBC W/AUTO [id number] 22:51:00 Test Item Value Reference Range Interpretation Comments WHITE BLOOD CELL (test code = 13.7 K/MM3 3.8-9.8 H WBC) RED BLOOD CELL (test code = 2.21 M/MM3 3.58-4.97 L RBC) HEMOGLOBIN (test code = HGB) 7.1 G/DL 11.2-14.9 L HEMATOCRIT (test code = HCT) 21.8 % 33.2-43.5 L MEAN CELL VOLUME (test code = 99 fL 80.7-99.1 N MCV) MEAN CELL HGB (test code = MCH) 32.1 pg 27.0-34.1 N MEAN CELL HGB CONCETRATION 32.6 % 32.2-35.7 N (test code = MCHC) RED CELL DISTRIBUTION WIDTH 13.4 % 12.1-15.2 N (test code = RDW) PLATELET COUNT (test code = 131 K/MM3 129-368 N PLT) MEAN PLATELET VOLUME (test code 11.0 fl 7.4-10.4 H = MPV) NEUTROPHIL % (test code = NT%) 80.2 % 43-75 H IMMATURE GRANULOCYTE % (test 0.4 % 0.0-2.0 N code = IG%) LYMPHOCYTE % (test code = LY%) 11.2 % 14-44 L MONOCYTE % (test code = MO%) 7.4 % 4-13 N EOSINOPHIL % (test code = EO%) 0.4 % 0-6 N BASOPHIL % (test code = BA%) 0.4 % 0-2 N NUCLEATED RBC % (test code = 0.0 % 0-1.0 N NRBC%) NEUTROPHIL # (test code = NT#) 10.96 K/mm3 2.0-7.6 H IMMATURE GRANULOCYTE # (test 0.05 x10 3/uL 0-0.03 H code = IG#) LYMPHOCYTE # (test code = LY#) 1.53 K/mm3 1.0-3.8 N MONOCYTE # (test code = MO#) 1.01 K/mm3 0.1-0.8 H EOSINOPHIL # (test code = EO#) 0.06 K/mm3 0.0-0.2 N BASOPHIL # (test code = BA#) 0.05 K/mm3 0.0-0.2 N NUCLEATED RBC # (test code = 0.00 K/mm3 0.0-0.1 N NRBC#) Comments to Human Factors Engineer: MD will draw and send down.LACTIC [id number] 20:28:00 Test Item Value Reference Range Interpretation Comments LACTIC ACID (test code = LACT) 0.8 MMOL/L 0.7-2.1 N BASIC METABOLIC [id number] 07:33:00 Test Item Value Reference Range Interpretation Comments SODIUM (test code = 139 MMOL/L 137-145 N NA) POTASSIUM (test code = 4.3 MMOL/L 3.5-5.1 N K) CHLORIDE (test code = 109 MMOL/L 98-107 H CL) CARBON DIOXIDE (test 24 MMOL/L 22-30 N code = CO2) ANION GAP (test code = 10 MMOL/L 14-24 L GAP) GLUCOSE (test code = 115 MG/DL 74-106 H GLU) BLOOD UREA NITROGEN 29 MG/DL 7-17 H (test code = BUN) GLOMERULAR FILTRATION 39 Report ing units: RATE (test code = GFR) ml/mi n/1.73 m2 (Modified MDRD Formula)Referen ce Range: > or = 6 0 ml/min/1.73 m2 CREATININE (test code 1.30 MG/DL 0.52-1.04 H = CREAT) CALCIUM (test code = 9.0 MG/DL 8.4-10.2 N CA) CBC W/AUTO [id number] 07:17:00 Test Item Value Reference Range Interpretation Comments WHITE BLOOD CELL (test code = 22.1 K/MM3 3.8-9.8 H WBC) RED BLOOD CELL (test code = 2.71 M/MM3 3.58-4.97 L RBC) HEMOGLOBIN (test code = HGB) 8.5 G/DL 11.2-14.9 L HEMATOCRIT (test code = HCT) 26.6 % 33.2-43.5 L MEAN CELL VOLUME (test code = 98 fL 80.7-99.1 N MCV) MEAN CELL HGB (test code = MCH) 31.4 pg 27.0-34.1 N MEAN CELL HGB CONCETRATION 32.0 % 32.2-35.7 L (test code = MCHC) RED CELL DISTRIBUTION WIDTH 13.2 % 12.1-15.2 N (test code = RDW) PLATELET COUNT (test code = 150 K/MM3 129-368 N PLT) MEAN PLATELET VOLUME (test code 11.3 fl 7.4-10.4 H = MPV) NEUTROPHIL % (test code = NT%) 86.9 % 43-75 H IMMATURE GRANULOCYTE % (test 0.6 % 0.0-2.0 N code = IG%) LYMPHOCYTE % (test code = LY%) 5.3 % 14-44 L MONOCYTE % (test code = MO%) 6.9 % 4-13 N EOSINOPHIL % (test code = EO%) 0.0 % 0-6 N BASOPHIL % (test code = BA%) 0.3 % 0-2 N NUCLEATED RBC % (test code = 0.0 % 0-1.0 N NRBC%) NEUTROPHIL # (test code = NT#) 19.19 K/mm3 2.0-7.6 H IMMATURE GRANULOCYTE # (test 0.13 x10 3/uL 0-0.03 H code = IG#) LYMPHOCYTE # (test code = LY#) 1.17 K/mm3 1.0-3.8 N MONOCYTE # (test code = MO#) 1.53 K/mm3 0.1-0.8 H EOSINOPHIL # (test code = EO#) 0.00 K/mm3 0.0-0.2 N BASOPHIL # (test code = BA#) 0.06 K/mm3 0.0-0.2 N NUCLEATED RBC # (test code = 0.00 K/mm3 0.0-0.1 N NRBC#) PROTHROMBIN [id number] 12:05:00 Test Item Value Reference Range Interpretation Comments PROTHROMBIN TIME 16.8 SECONDS 9.5-12.7 H PATIENT (test code = PTP) INTERNATIONAL NORMAL 1.5 0.86-1.14 H The INR is to be RATIO (test [...] syste eric embolism. 3.0 - 4.5 PTT [id number] 12:05:00 Test Item Value Reference Range Interpretation Comments PTT ACTIVATED (test code = APTT) 21.5 SECONDS 25.1-36.5 L BASIC METABOLIC [id number] 13:28:00 Test Item Value Reference Range Interpretation Comments SODIUM (test code = 140 MMOL/L 137-145 N NA) POTASSIUM (test code = 4.9 MMOL/L 3.5-5.1 N K) CHLORIDE (test code = 104 MMOL/L 98-107 N CL) CARBON DIOXIDE (test 28 MMOL/L 22-30 N code = CO2) ANION GAP (test code = 13 MMOL/L 14-24 L GAP) GLUCOSE (test code = 117 MG/DL 74-106 H GLU) BLOOD UREA NITROGEN 51 MG/DL 7-17 H (test code = BUN) GLOMERULAR FILTRATION 27 Report ing units: RATE (test code = GFR) ml/mi n/1.73 m2 (Modified MDRD Formula)Referen ce Range: > or = 6 0 ml/min/1.73 m2 CREATININE (test code 1.80 MG/DL 0.52-1.04 H = CREAT) CALCIUM (test code = 9.5 MG/DL 8.4-10.2 N CA) COVID 19 Asymptomatic IH [id number] 13:14:00 Test Item Value Reference Range Interpretation Comments [...] amount of virus (antigen) in the sample." CBC W/AUTO [id number] 12:54:00 Test Item Value Reference Range Interpretation Comments WHITE BLOOD CELL (test code = 8.1 K/MM3 3.8-9.8 N WBC) RED BLOOD CELL (test code = 3.35 M/MM3 3.58-4.97 L RBC) HEMOGLOBIN (test code = HGB) 10.4 G/DL 11.2-14.9 L HEMATOCRIT (test code = HCT) 32.5 % 33.2-43.5 L MEAN CELL VOLUME (test code = 97 fL 80.7-99.1 N MCV) MEAN CELL HGB (test code = MCH) 31.0 pg 27.0-34.1 N MEAN CELL HGB CONCETRATION 32.0 % 32.2-35.7 L (test code = MCHC) RED CELL DISTRIBUTION WIDTH 13.0 % 12.1-15.2 N (test code = RDW) PLATELET COUNT (test code = 184 K/MM3 129-368 N PLT) MEAN PLATELET VOLUME (test code 10.6 fl 7.4-10.4 H = MPV) NEUTROPHIL % (test code = NT%) 58.5 % 43-75 N IMMATURE GRANULOCYTE % (test 0.4 % 0.0-2.0 N code = IG%) LYMPHOCYTE % (test code = LY%) 28.5 % 14-44 N MONOCYTE % (test code = MO%) 8.3 % 4-13 N EOSINOPHIL % (test code = EO%) 3.8 % 0-6 N BASOPHIL % (test code = BA%) 0.5 % 0-2 N NUCLEATED RBC % (test code = 0.0 % 0-1.0 N NRBC%) NEUTROPHIL # (test code = NT#) 4.71 K/mm3 2.0-7.6 N IMMATURE GRANULOCYTE # (test 0.03 x10 3/uL 0-0.03 N code = IG#) LYMPHOCYTE # (test code = LY#) 2.30 K/mm3 1.0-3.8 N MONOCYTE # (test code = MO#) 0.67 K/mm3 0.1-0.8 N EOSINOPHIL # (test code = EO#) 0.31 K/mm3 0.0-0.2 H BASOPHIL # (test code = BA#) 0.04 K/mm3 0.0-0.2 N NUCLEATED RBC # (test code = 0.00 K/mm3 0.0-0.1 N NRBC#) [id number] 07:17:00 Test Item Value Reference Range Interpretation Comments TRANSFERRRIN (test code 130 mg/dL 192-364 L Perf ormed At: BN = TRANSF) [facility] [id number] ra Amos CORREIA Ph:[phone] PROTHROMBIN [id number] 16:15:00 Test Item Value Reference Range Interpretation [...] STAFF: VELIA 02/29/20 AT 1359 BY YASHIRAERPROTHROMBIN [id number] 11:04:00 Test Item Value Reference Range Interpretation [...] eric embolism. 3.0 - 4.5 Comments to Human Factors Engineer: CHECK AT LEAST 30 MIN AFTER AFTER FFP INFUSIONPROTHROMBIN [id number] 08:05:00 Test Item Value Reference Range Interpretation Comments PROTHROMBIN TIME 40.1 SECONDS 9.4-12.5 HH PATIENT (test code = PTP) INTERNATIONAL NORMAL 3.[address] DODGE (test code = BRUNO& READBACK INR) ON 02/29/20 AT 0805 BY Pop Loo he INR is to [...] syste eric embolism. 3.0 - 4.5 PROTHROMBIN [id number] 16:53:00 Test Item Value Reference Range Interpretation [...] eric embolism. 3.0 - 4.5 BASIC METABOLIC [id number] 09:10:00 Test Item Value Reference Range Interpretation [...] code = 8.6 MG/DL 8.4-10.2 N CA) [id number] 09:10:00 Test Item Value Reference Range Interpretation [...] 21 % 12-57 N FESAT) BASIC METABOLIC [id number] 07:10:00 Test Item Value Reference Range Interpretation [...] code = 8.6 MG/DL 8.4-10.2 N CA) [id number] 07:10:00 Test Item Value Reference Range Interpretation Comments FERRITIN (test code = MARSHALL) NG/ML 11.1-264 PROTHROMBIN [id number] 07:07:00 Test Item Value Reference Range Interpretation Comments PROTHROMBIN TIME 43.1 SECONDS 9.4-12.5 HH CALLED TO Belem humphreysjorge Thompson PATIENT (test code = & READB ACK ON PTP) 02/28/20 AT 070 3 BY James Bean INTERNATIONAL NORMAL 3.8 HH CALLED TO Yassine Thompson RATIO (test code = & READBAC K ON INR) 02/28/20 AT 070 3 BY [...] eric embolism. 3.0 - 4.5 BASIC METABOLIC [id number] 07:04:00 Test Item Value Reference Range Interpretation [...] CALCIUM (test code = MG/DL 8.7-9.7 CA) [id number] 07:04:00 Test Item Value Reference Range Interpretation Comments FERRITIN (test code = MARSHALL) NG/ML 11.1-264 BASIC METABOLIC [id number] 07:01:00 Test Item Value Reference Range Interpretation [...] CALCIUM (test code = CA) MG/DL 8.7-9.7 [id number] 07:01:00 Test Item Value Reference Range Interpretation Comments FERRITIN (test code = MARSHALL) NG/ML 11.1-264 BASIC METABOLIC [id number] 07:01:00 Test Item Value Reference Range Interpretation [...] CALCIUM (test code = CA) MG/DL 8.7-9.7 [id number] 07:01:00 Test Item Value Reference Range Interpretation Comments FERRITIN (test code = MARSHALL) NG/ML 11.1-264 FE W/TOTAL IRON BINDING CAP.2020-02-28 07:00:00 Test Item Value Reference Range Interpretation Comments SERUM IRON (test code = IRON) 43 MCG/DL 37-170 N TOTAL IRON BINDING CAPACITY (test MCG/DL 265-497 code = TIBC) IRON SATURATION (test code = FESAT) % 12-57 RETICULOCYTE [id number] 06:35:00 Test Item Value Reference Range Interpretation Comments RETICULOCYTE COUNT (test code = RETICT) 1.2 % 0.5-1.5 N CBC W/AUTO [id number] 06:33:00 Test Item Value Reference Range Interpretation [...] = 0.00 K/mm3 0.0-0.1 N NRBC#) PROTHROMBIN [id number] 21:27:00 Test Item Value Reference Range Interpretation [...] 02/27/20 AT 1718 BY Ashutosh Cleveland BEDSIDE [id number] 19:55:00 Test Item Value Reference Range Interpretation Comments GLUCOSE BEDSIDE TESTING (test code = 91 MG/DL 60-99 N GLUBED) [id number] 15:47:00 Test Item Value Reference Range Interpretation Comments PREALBUMIN (test code = PREALB) 13 MG/DL 17-42 L UR SMEAR EOSINOPHIL [id number] 07:16:00 Test Item Value Reference Range Interpretation Comments UR SMEAR EOSINOPHIL COUNT (test code = NONE RARE EOSCTU) BASIC METABOLIC [id number] 07:04:00 Test Item Value Reference Range Interpretation [...] 8.4 MG/DL 8.4-10.2 N CA) CBC W/AUTO [id number] 06:56:00 Test Item Value Reference Range Interpretation [...] 0.00 K/mm3 0.0-0.1 N NRBC#) BASIC METABOLIC [id number] 06:27:00 Test Item Value Reference Range Interpretation [...] (test code = CA) MG/DL 8.7-9.7 PROTHROMBIN [id number] 06:24:00 Test Item Value Reference Range Interpretation [...] eric embolism. 3.0 - 4.5 UR SODIUM [id number] 06:06:00 Test Item Value Reference Range Interpretation Comments UR SODIUM RANDOM (test code = RENETTA) 111 MMOL/L 27-287 N UR PROTEIN [id number] 06:06:00 Test Item Value Reference Range Interpretation Comments UR PROTEIN RANDOM (test code = 43 MG/DL 0-11.9 H PROTU) UR CREATININE [id number] 06:06:00 Test Item Value Reference Range Interpretation Comments UR CREATININE RANDOM (test code = 83.4 CREATU) UR OSMOLALITY [id number] 06:06:00 Test Item Value Reference Range Interpretation Comments UR OSMOLALITY RANDOM (test code 469.5 MOS/KG 300-1200 N = OSMOU) UR SODIUM [id number] 05:33:00 Test Item Value Reference Range Interpretation Comments UR SODIUM RANDOM (test code = RENETTA) 111 MMOL/L 27-287 N UR PROTEIN [id number] 05:33:00 Test Item Value Reference Range Interpretation Comments UR PROTEIN RANDOM (test code = 43 MG/DL 0-11.9 H PROTU) UR CREATININE [id number] 05:33:00 Test Item Value Reference Range Interpretation Comments UR CREATININE RANDOM (test code = 83.4 CREATU) UR OSMOLALITY [id number] 05:33:00 Test Item Value Reference Range Interpretation Comments UR OSMOLALITY RANDOM (test code = MOS/KG 300-1200 OSMOU) UR SODIUM [id number] 05:30:00 Test Item Value Reference Range Interpretation Comments UR SODIUM RANDOM (test code = RENETTA) 111 MMOL/L 27-287 N UR PROTEIN [id number] 05:30:00 Test Item Value Reference Range Interpretation Comments UR PROTEIN RANDOM (test code = 43 MG/DL 0-11.9 H PROTU) UR CREATININE [id number] 05:30:00 Test Item Value Reference Range Interpretation Comments UR CREATININE RANDOM (test code = CREATU) UR OSMOLALITY [id number] 05:30:00 Test Item Value Reference Range Interpretation Comments UR OSMOLALITY RANDOM (test code = MOS/KG 300-1200 OSMOU) UR SODIUM [id number] 05:29:00 Test Item Value Reference Range Interpretation Comments UR SODIUM RANDOM (test code = RENETTA) 111 MMOL/L 27-287 N UR PROTEIN [id number] 05:29:00 Test Item Value Reference Range Interpretation Comments UR PROTEIN RANDOM (test code = PROTU) MG/DL 0-11.9 UR CREATININE [id number] 05:29:00 Test Item Value Reference Range Interpretation Comments UR CREATININE RANDOM (test code = CREATU) UR OSMOLALITY [id number] 05:29:00 Test Item Value Reference Range Interpretation Comments UR OSMOLALITY RANDOM (test code = MOS/KG 300-1200 OSMOU) - US RETRO [id number] 22:50:00 [facility] 1940 Sex: F Patient Name: JORGE A HORTA Unit No: [id number] EXAMS: CPT CODE: [id number] US RETRO LTD 67082 Retroperitoneal ultrasound. Location: R16 His tory: Hematuria.. [...] Citlaly Jones RDMS(AB) Transcrpt Date/Tm/Trnsp: 02/26/2020 (2249) t.CARLAR.RH16 Orig Print D/T: S: 02/26/2020 (9752) [facility] NAME: JORGE A HORTA [address] PHYS: LEVY. - [place] [address] : 1940 AGE: 79 SEX: F LOC: Z.513 A PHONE #: [phone] EXAM DATE: 02/26/2020 STATUS: ADM IN FAX #: [phone] RADIOLOGY NO: PAGE 1 Signed ReportGLUCOSE BEDSIDE [id number] 15:32:00 Test Item Value Reference Range Interpretation Comments GLUCOSE BEDSIDE TESTING (test code = 79 MG/DL 60-99 N GLUBED) LACTIC [id number] 13:01:00 Test Item Value Reference Range Interpretation Comments LACTIC ACID (test code = LACT) 1.3 MMOL/L 0.7-2.1 N GLUCOSE BEDSIDE [id number] 12:21:00 Test Item Value Reference Range Interpretation Comments GLUCOSE BEDSIDE TESTING (test code = 78 MG/DL 60-99 N GLUBED) COMPREHENSIVE METABOLIC [id number] 11:41:00 Test Item Value Reference Range Interpretation [...] H PHOSPHATASE (test code = ALKP) PROTHROMBIN [id number] 11:31:00 Test Item Value Reference Range Interpretation Comments PROTHROMBIN TIME 76.0 SECONDS 9.4-12.5 PATIENT (test code = PTP) INTERNATIONAL NORMAL 6.7 HH CALLED TO RAMESH DODGE (test code = READBACK ON INR) 02/26/20 AT 113 1 BY Pop Loo INR is to be [...] eric embolism. 3.0 - 4.5 CBC W/AUTO [id number] 11:25:00 Test Item Value Reference Range Interpretation [...] 0.00 K/mm3 0.0-0.1 N NRBC#) GLUCOSE BEDSIDE [id number] 08:29:00 Test Item Value Reference Range Interpretation Comments GLUCOSE BEDSIDE TESTING (test code = 72 MG/DL 60-99 N GLUBED) GLUCOSE BEDSIDE [id number] 00:04:00 Test Item Value Reference Range Interpretation Comments GLUCOSE BEDSIDE TESTING (test code = 68 MG/DL 60-99 N GLUBED) PROTHROMBIN [id number] 23:52:00 Test Item Value Reference Range Interpretation [...] 3.0 - 4.5 COVID 19 Asymptomatic IH [id number] 23:42:00 Test Item Value Reference Range Interpretation [...] virus (antigen) in the sample." THYROID STIMULATING [id number] 23:04:00 Test Item Value Reference Range Interpretation Comments THYROID STIMULATING 21.300 MIU/L 0.465-4.68 H Please b e aware that HORMONE (test code = bias re sults for TSH TSH) may occur forpa tient who are taking Biotin suppleme nts. GLYCOSYLATED HEMOGLOBIN [id number] 22:37:00 Test Item Value Reference Range Interpretation [...] 70-110 N (test code = MBG) URINALYSIS [id number] 18:24:00 Test Item Value Reference Range Interpretation [...] Culture Chk code = UACULT) Criteria UA [id number] 18:24:00 Test Item Value Reference Range Interpretation Comments UA RBC (test code = RBCU) 50-100 RBC/HPF 0-3 A UA WBC (test code = XWBCU) >100 WBC/HPF 0-5 A UA EPITHELIAL CELLS (test code FEW EPI/HPF FEW = EPIU) UA BACTERIA (test code = MODERATE NONE A XBACU) UA YEAST (test code = YEASTU) FEW #/HPF NONE A URINALYSIS [id number] 18:13:00 Test Item Value Reference Range Interpretation [...] code Criteria Culture Chk = UACULT) UA [id number] 18:13:00 Test Item Value Reference Range Interpretation Comments UA RBC (test code = RBCU) RBC/HPF 0-3 UA WBC (test code = XWBCU) WBC/HPF 0-5 UA EPITHELIAL CELLS (test code = EPI/HPF FEW EPIU) UA BACTERIA (test code = XBACU) NONE URINALYSIS [id number] 18:13:00 Test Item Value Reference Range Interpretation [...] code Criteria Culture Chk = UACULT) UA [id number] 18:13:00 Test Item Value Reference Range Interpretation Comments UA RBC (test code = RBCU) RBC/HPF 0-3 UA WBC (test code = XWBCU) WBC/HPF 0-5 UA EPITHELIAL CELLS (test code = EPI/HPF FEW EPIU) UA BACTERIA (test code = XBACU) NONE COMPREHENSIVE METABOLIC [id number] 17:13:00 Test Item Value Reference Range Interpretation [...] RECOLLECTION NEEDED ON 02/25/20 AT 1538 BY Z.LAB.VWL5AISDEZ: NOT ENOUGH BLOODNOTIFIED PATIENT CARE STAFF: GIDEON MillanKassandra SAID TO SEND PHELBPHOSPHOROUS 2020-02-25 17:13:00 Test Item Value Reference Range Interpretation Comments PHOSPHOROUS (test code = PHOS) 4.3 MG/DL 2.5-4.5 N RECOLLECTION NEEDED ON 02/25/20 AT 1538 BY Z.LAB.MIV6TWXLAV: NOT ENOUGH BLOODNOTIFIED PATIENT CARE STAFF: GIDEON MillanKassandra SAID TO SEND [id number] 17:13:00 Test Item Value Reference Range Interpretation Comments LIPASE (test code = LIP) 313 UNITS/L 23-300 H RECOLLECTION NEEDED ON 02/25/20 AT 1538 BY Z.LAB.ZLV9IINPLO: NOT ENOUGH BLOODNOTIFIED PATIENT CARE STAFF: GDIEON AKassandra SAID TO SEND PHELBMAGNESIUM 2020-02-25 17:13:00 Test Item Value Reference Range Interpretation Comments MAGNESIUM (test code = MAG) 1.7 MG/DL 1.6-2.3 N RECOLLECTION NEEDED ON 02/25/20 AT 1538 BY Z.LAB.ITB8KKKTVQ: NOT ENOUGH BLOODNOTIFIED PATIENT CARE STAFF: GIDEON MillanKassandra SAID TO SEND PHELBTROPONIN-I 2020-02-25 17:13:00 Test Item Value Reference Range Interpretation Comments TROPONIN-I (test code = TROPI) < 0.012 NG/ML 0.012-0.033 L RECOLLECTION NEEDED ON 02/25/20 AT 1538 BY Z.LAB.ZJO5GKSYNQ: NOT ENOUGH BLOODNOTIFIED PATIENT CARE STAFF: GIDEON MillanKassandra SAID TO SEND PHELBCOMPREHENSIVE METABOLIC [id number] 16:32:00 Test Item Value Reference Range Interpretation [...] RECOLLECTION NEEDED ON 02/25/20 AT 1538 BY YASHIRAMSW0RTPACH: NOT ENOUGH BLOODNOTIFIED PATIENT CARE STAFF: GIDEON Davis SAID TO SEND PHELBPHOSPHOROUS 2020-02-25 16:32:00 Test Item Value Reference Range Interpretation Comments PHOSPHOROUS (test code = PHOS) 4.3 MG/DL 2.5-4.5 N RECOLLECTION NEEDED ON 02/25/20 AT 1538 BY Z.LAB.NUU7QIPSVO: NOT ENOUGH BLOODNOTIFIED PATIENT CARE STAFF: GIDEON MillanKassandra SAID TO SEND [id number] 16:32:00 Test Item Value Reference Range Interpretation Comments LIPASE (test code = LIP) 313 UNITS/L 23-300 H RECOLLECTION NEEDED ON 02/25/20 AT 1538 BY Z.LAB.NSU1SDPDGO: NOT ENOUGH BLOODNOTIFIED PATIENT CARE STAFF: GIDEON MillanKassandra SAID TO SEND PHELBMAGNESIUM 2020-02-25 16:32:00 Test Item Value Reference Range Interpretation Comments MAGNESIUM (test code = MAG) 1.7 MG/DL 1.6-2.3 N RECOLLECTION NEEDED ON 02/25/20 AT 1538 BY Z.LAB.WFU6KSQMQY: NOT ENOUGH BLOODNOTIFIED PATIENT CARE STAFF: GIDEON MillanKassandra SAID TO SEND PHELBTROPONIN-I 2020-02-25 16:32:00 Test Item Value Reference Range Interpretation Comments TROPONIN-I (test code = TROPI) NG/ML 0.0-0.045 RECOLLECTION NEEDED ON 02/25/20 AT 1538 BY Z.LAB.EAH2WBKPTN: NOT ENOUGH BLOODNOTIFIED PATIENT CARE STAFF: GIDEON MillanKassandra SAID TO SEND PHELBCOMPREHENSIVE METABOLIC [id number] 16:30:00 Test Item Value Reference Range Interpretation [...] RECOLLECTION NEEDED ON 02/25/20 AT 1538 BY Z.LAB.GUR5PFYVCG: NOT ENOUGH BLOODNOTIFIED PATIENT CARE STAFF: GIDEON Davis SAID TO SEND PHELBPHOSPHOROUS 2020-02-25 16:30:00 Test Item Value Reference Range Interpretation Comments PHOSPHOROUS (test code = PHOS) MG/DL 2.5-4.5 RECOLLECTION NEEDED ON 02/25/20 AT 1538 BY Z.LAB.GBO9HWFHTX: NOT ENOUGH BLOODNOTIFIED PATIENT CARE STAFF: GIDEON Davis SAID TO SEND [id number] 16:30:00 Test Item Value Reference Range Interpretation Comments LIPASE (test code = LIP) UNITS/L 23-300 RECOLLECTION NEEDED ON 02/25/20 AT 1538 BY Z.LAB.NVC1YRUAVD: NOT ENOUGH BLOODNOTIFIED PATIENT CARE STAFF: GIDEON Davis SAID TO SEND PHELBMAGNESIUM 2020-02-25 16:30:00 Test Item Value Reference Range Interpretation Comments MAGNESIUM (test code = MAG) MG/DL 1.6-2.3 RECOLLECTION NEEDED ON 02/25/20 AT 1538 BY Z.LAB.KJR5YNOIUA: NOT ENOUGH BLOODNOTIFIED PATIENT CARE STAFF: GIDEON Davis SAID TO SEND PHELBTROPONIN-I 2020-02-25 16:30:00 Test Item Value Reference Range Interpretation Comments TROPONIN-I (test code = TROPI) NG/ML 0.0-0.045 RECOLLECTION NEEDED ON 02/25/20 AT 1538 BY Z.LAB.USO9MBJLHE: NOT ENOUGH BLOODNOTIFIED PATIENT CARE STAFF: GIDEON Davis SAID TO SEND PHELB- XR CHEST 1V 2020-02-25 15:32:00 [facility] 1940 Sex: F Patient Name: JORGE A HORTA Unit No: [id number] EXAMS: CPT CODE: [id number] XR CHEST 1V 12057 Location: T 18 CHEST X-RAY: Portable AP [...] Hinkle (RT) (R) Transcrpt Date/Tm/Trnsp: 02/25/2020 (1532) t.CARLARKassandraDAS6 Orig Print D/T: S: 02/25/2020 (1535) [facility] NAME: JORGE A HORTA [id number] PHYS: [place] [address] : 1940 AGE: 79 SEX: F LOC: Z.ERS PHONE #: [phone] EXAM DATE: 02/25/2020 STATUS: REG ER FAX #: [phone] RADIOLOGY NO: PAGE 1 Signed ReportCBC W/O [id number] 15:20:00 Test Item Value Reference Range Interpretation [...] 0.00 K/mm3 0.0-0.1 N NRBC#) GLUCOSE BEDSIDE [id number] 11:55:00 Test Item Value Reference Range Interpretation Comments GLUCOSE BEDSIDE TESTING (test code 132 MG/DL 60-99 H = GLUBED) GLUCOSE BEDSIDE [id number] 11:04:00 Test Item Value Reference Range Interpretation Comments GLUCOSE BEDSIDE TESTING (test code = 74 MG/DL 60-99 N GLUBED) GLUCOSE BEDSIDE [id number] 07:38:00 Test Item Value Reference Range Interpretation Comments GLUCOSE BEDSIDE TESTING (test code 110 MG/DL 60-99 H = GLUBED) BASIC METABOLIC [id number] 06:32:00 Test Item Value Reference Range Interpretation [...] 8.1 MG/DL 8.4-10.2 L CA) BASIC METABOLIC [id number] 06:31:00 Test Item Value Reference Range Interpretation [...] code = MG/DL 8.7-9.7 CA) BASIC METABOLIC [id number] 06:29:00 Test Item Value Reference Range Interpretation [...] code = CA) MG/DL 8.7-9.7 BASIC METABOLIC [id number] 06:28:00 Test Item Value Reference Range Interpretation [...] (test code = CA) MG/DL 8.7-9.7 PROTHROMBIN [id number] 06:17:00 Test Item Value Reference Range Interpretation [...] eric embolism. 3.0 - 4.5 CBC W/AUTO [id number] 06:12:00 Test Item Value Reference Range Interpretation [...] N NRBC#) - CT ABD PELVIS W/O [id number] 19:52:00 [facility] : 1940 Sex: F Patient Name: JORGE A HORTA Unit No: [id number] EXAMS: CPT CODE: [id number] CT ABD PELVIS W/O CONT 50594 EXAM: CT abdomen and pelvis INDICATION: Post-op bleeding COMPARISON: December 30, 2019 LOCATION: [facility] CT scan of the abdomen and [...] catheter in the pelvis is again identified. 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 [id number] Reported and signed by: Loc Medina MD CC: Nicolas Wiley MD; Ramu Sutherland MD; Rashid Son MD Technologist: Jose Victor RT (R) (CT) CTDI: DLP: Trnscrpt: 01/02/2020 (1951) t.SDR.PMT [facility] NAME: JORGE A HORTA Gerry PHYS: [place] [address] : 1940 AGE: 79SEX: F LOC: Z.SI06 A PHONE #: [phone] EXAM DATE: 01/02/2020 STATUS: ADM IN FAX #: [phone] RAD #: D/C DT PAGE 2 Signed Report Patient Name: JORGE A HORTA Unit No: [id number] EXAMS: CPT CODE: [id number] CT ABD PELVIS W/O CONT 66654 <Continued> Orig Print D/T: S: 01/02/2020 (1954) [facility] NAME: JORGE A HORTA Gerry PHYS: Nicolas Gutierrez MD [place] [id number] : 1940 AGE: 79 SEX: F LOC: Z.SI06 A PHONE #: [phone] EXAM DATE: 01/02/2020 STATUS: ADM IN FAX #: [phone] RAD #: D/C DT PAGE 3 Signed ReportHGB [id number] 16:29:00 Test Item Value Reference Range Interpretation Comments HEMOGLOBIN (test code = HGB) 8.2 G/DL 11.2-14.9 L HEMATOCRIT (test code = HCT) 26.0 % 33.2-43.5 L GLUCOSE BEDSIDE [id number] 16:27:00 Test Item Value Reference Range Interpretation Comments GLUCOSE BEDSIDE TESTING (test code = 59 MG/DL 60-99 L GLUBED) GLUCOSE BEDSIDE [id number] 12:00:00 Test Item Value Reference Range Interpretation Comments GLUCOSE BEDSIDE TESTING (test code 101 MG/DL 60-99 H = GLUBED) HGB [id number] 09:00:00 Test Item Value Reference Range Interpretation Comments HEMOGLOBIN (test code = 6.4 G/DL 11.2-14.9 LL CALL ED TO SUZANNE L& HGB) READBACK ON AT 0900 BY Ilan Loo HEMATOCRIT (test code = 20.5 % 33.2-43.5 L HCT) CBC W/AUTO [id number] 07:51:00 Test Item Value Reference Range Interpretation [...] K/mm3 0.0-0.1 N code = NRBC#) DIFFERENTIAL [id number] 07:51:00 Test Item Value Reference Range Interpretation Comments RBC MORPHOLOGY REQUIRED (test code NORMAL = RBCM) ANISOCYTOSIS (test code = ANISO) SLIGHT NONE PLATELET ESTIMATE (test code = INCREASED ADEQUATE PLTEST) PLATELET MORPHOLOGY (test code = NORMAL NORMAL PLTMORPH) BASIC METABOLIC [id number] 06:22:00 Test Item Value Reference Range Interpretation [...] = 8.3 MG/DL 8.4-10.2 L CA) PROTHROMBIN [id number] 06:22:00 Test Item Value Reference Range Interpretation [...] eric embolism. 3.0 - 4.5 Comments to Human Factors Engineer: .BASIC METABOLIC [id number] 06:17:00 Test Item Value Reference Range Interpretation [...] code = CA) MG/DL 8.7-9.7 CBC W/AUTO [id number] 06:16:00 Test Item Value Reference Range Interpretation [...] K/mm3 0.0-0.1 N code = NRBC#) DIFFERENTIAL [id number] 06:16:00 Test Item Value Reference Range Interpretation Comments RBC MORPHOLOGY REQUIRED (test code = RBCM) PLATELET ESTIMATE (test code = PLTEST) ADEQUATE PLATELET MORPHOLOGY (test code = NORMAL PLTMORPH) CBC W/AUTO [id number] 06:16:00 Test Item Value Reference Range Interpretation [...] K/mm3 0.0-0.1 N code = NRBC#) DIFFERENTIAL [id number] 06:16:00 Test Item Value Reference Range Interpretation Comments RBC MORPHOLOGY REQUIRED (test code = RBCM) PLATELET ESTIMATE (test code = PLTEST) ADEQUATE PLATELET MORPHOLOGY (test code = NORMAL PLTMORPH) GLUCOSE BEDSIDE [id number] 21:30:00 Test Item Value Reference Range Interpretation Comments GLUCOSE BEDSIDE TESTING (test code = 87 MG/DL 60-99 N GLUBED) ARTERIAL BLOOD [id number] 17:52:00 Test Item Value Reference Range Interpretation [...] N SATA) ABG DELIVERY (test code = KAROLIAN) VENT ABG VENT MODE (test code = [...] FIO2 (test code = COHBGFFIO2) 30 % PaO2/[id number] 17:52:00 Test Item Value Reference Range Interpretation Comments PaO2/FiO2 (test code = [id number]) 279.66 mm/Hg GLUCOSE BEDSIDE [id number] 16:23:00 Test Item Value Reference Range Interpretation Comments GLUCOSE BEDSIDE TESTING (test code 108 MG/DL 60-99 H = GLUBED) PROTHROMBIN [id number] 14:43:00 Test Item Value Reference Range Interpretation [...] 01/01/20 AT 1405 BY Christiano Cleveland to Human Factors Engineer: ,GLUCOSE BEDSIDE TESTING 2020-01-01 12:19:00 Test Item Value Reference Range Interpretation Comments GLUCOSE BEDSIDE TESTING (test code 116 MG/DL 60-99 H = GLUBED) GLUCOSE BEDSIDE [id number] 07:47:00 Test Item Value Reference Range Interpretation Comments GLUCOSE BEDSIDE TESTING (test code 109 MG/DL 60-99 H = GLUBED) BASIC METABOLIC [id number] 05:06:00 Test Item Value Reference Range Interpretation [...] 8.5 MG/DL 8.4-10.2 N CA) BASIC METABOLIC [id number] 04:58:00 Test Item Value Reference Range Interpretation [...] code = CA) MG/DL 8.7-9.7 GLUCOSE BEDSIDE [id number] 20:12:00 Test Item Value Reference Range Interpretation Comments GLUCOSE BEDSIDE TESTING (test code 119 MG/DL 60-99 H = GLUBED) GLUCOSE BEDSIDE [id number] 15:55:00 Test Item Value Reference Range Interpretation Comments GLUCOSE BEDSIDE TESTING (test code 134 MG/DL 60-99 H = GLUBED) CBC W/O [id number] 11:34:00 Test Item Value Reference Range Interpretation [...] K/mm3 0.0-0.1 N code = NRBC#) DIFFERENTIAL [id number] 11:34:00 Test Item Value Reference Range Interpretation Comments RBC MORPHOLOGY REQUIRED (test code NORMAL = RBCM) POLYCHROMASIA (test code = POLC) FEW NONE PLATELET ESTIMATE (test code = INCREASED ADEQUATE PLTEST) PLATELET MORPHOLOGY (test code = NORMAL NORMAL PLTMORPH) WBC [id number] 11:34:00 Test Item Value Reference Range Interpretation [...] MON) 4.9 % 0-11 N BASIC METABOLIC [id number] 11:28:00 Test Item Value Reference Range Interpretation [...] code = 8.7 MG/DL 8.4-10.2 N CA) [id number] 11:28:00 Test Item Value Reference Range Interpretation Comments VANCOMYCIN (test code = VANCO) 14.3 mcg/ML 5.0-26.0 CBC W/O [id number] 11:09:00 Test Item Value Reference Range Interpretation [...] K/mm3 0.0-0.1 N code = NRBC#) DIFFERENTIAL [id number] 11:09:00 Test Item Value Reference Range Interpretation Comments RBC MORPHOLOGY REQUIRED (test code = RBCM) PLATELET ESTIMATE (test code = PLTEST) ADEQUATE PLATELET MORPHOLOGY (test code = NORMAL PLTMORPH) WBC [id number] 11:09:00 Test Item Value Reference Range Interpretation Comments TOTAL CELLS COUNTED (test code = TCC) #CELLS SEGMENTED NEUTROPHILS (test code = % 36.2-73.8 SEG) LYMPHOCYTE (test code = LYMPH) % 12.9-45.1 MONOCYTE (test code = MON) % 0-11 CBC W/AUTO [id number] 11:09:00 Test Item Value Reference Range Interpretation [...] K/mm3 0.0-0.1 N code = NRBC#) WBC [id number] 11:09:00 Test Item Value Reference Range Interpretation Comments RBC MORPHOLOGY REQUIRED (test code = RBCM) TOTAL CELLS COUNTED (test code = TCC) #CELLS SEGMENTED NEUTROPHILS (test code = % 36.2-73.8 SEG) LYMPHOCYTE (test code = LYMPH) % 12.9-45.1 MONOCYTE (test code = MON) % 0-11 PLATELET ESTIMATE (test code = ADEQUATE PLTEST) PLATELET MORPHOLOGY (test code = NORMAL PLTMORPH) ARTERIAL BLOOD [id number] 11:00:00 Test Item Value Reference Range Interpretation [...] FIO2 (test code = 21 % COHBGFFIO2) PaO2/[id number] 11:00:00 Test Item Value Reference Range Interpretation Comments PaO2/FiO2 (test code = GRV6FJM8) mm/Hg ARTERIAL BLOOD [id number] 11:00:00 Test Item Value Reference Range Interpretation [...] to and readback by DANILO ESCOBAR by SallyCPS SHREYAS at 12/31/2019 10:59:33 AM ABG DELIVERY (test code RM AIR = KAROLINA) ABG TEMPERATURE (test 37.0 C >37 code = TEMPA) ABG SITE (test code = AL SITEA) ALLENS TEST (test code NA CHECK = ALLENS) FIO2 (test code = 21 % COHBGFFIO2) PaO2/[id number] 11:00:00 Test Item Value Reference Range Interpretation Comments PaO2/FiO2 (test code = DWP6KDW3) 297.61 mm/Hg GLUCOSE BEDSIDE [id number] 10:52:00 Test Item Value Reference Range Interpretation Comments GLUCOSE BEDSIDE TESTING (test code 167 MG/DL 60-99 H = GLUBED) GLUCOSE BEDSIDE [id number] 07:30:00 Test Item Value Reference Range Interpretation Comments GLUCOSE BEDSIDE TESTING (test code 148 MG/DL 60-99 H = GLUBED) GLUCOSE BEDSIDE [id number] 20:36:00 Test Item Value Reference Range Interpretation Comments GLUCOSE BEDSIDE TESTING (test code 139 MG/DL 60-99 H = GLUBED) GLUCOSE BEDSIDE [id number] 16:00:00 Test Item Value Reference Range Interpretation Comments GLUCOSE BEDSIDE TESTING (test code 126 MG/DL 60-99 H = GLUBED) [id number] 12:30:00 Test Item Value Reference Range Interpretation Comments VANCOMYCIN (test code = VANCO) 8.3 mcg/ML 5.0-26.0 N GLUCOSE BEDSIDE [id number] 11:19:00 Test Item Value Reference Range Interpretation Comments GLUCOSE BEDSIDE TESTING (test code 118 MG/DL 60-99 H = GLUBED) GLUCOSE BEDSIDE [id number] 07:49:00 Test Item Value Reference Range Interpretation Comments GLUCOSE BEDSIDE TESTING (test code 106 MG/DL 60-99 H = GLUBED) - CT ABD PELVIS W/[id number] 07:42:00 [facility] 1940 Sex: F Patient Name: JORGE A HORTA Unit No: [id number] EXAMS: CPT CODE: [id number] CT ABD PELVIS W/CONT 84284 HISTORY: Persistent WBC EXAM TYPE: CT abdomen [...] No aneurysmal dilatation. Lymph nodes: No adenopathy. [facility] NAME: JORGE A HORTA [address] PHYS: [id number] Rodolfo De La Torre MD [address] [address] : 1940 AGE: 79 SEX: F [facility] [id number] LOC: Z.SI06 A PHONE #: [phone] EXAM DATE: 12/30/2019 STATUS: ADM IN FAX #: [phone] RAD #: D/C DT PAGE 1 Signed Report (CONTINUED) Patient Name: JORGE A HORTA Unit No: [id number] EXAMS: CPT CODE: [id number] CT ABD PELVIS W/CONT 93079 <Continued> Peritoneum/retroperitoneum: Small volume abdominal ascites, new [...] Reported and signed by: Lizzy Ryan MD [facility] NAME: JORGE A HORTA [address] PHYS: Rodolfo Landeros MD [address] [place] [address] : 1940 AGE: 79 SEX: F LOC: Z.SI06 A PHONE #: [phone] EXAM DATE: 12/30/2019 STATUS: ADM IN FAX #: [phone] RAD #: D/C DT PAGE 2 Signed Report (CONTINUED) Patient Name: JORGE A HORTA Unit No: [id number] EXAMS: CPT CODE: [id number] CT ABD PELVIS W/CONT 71106 <Continued> CC: Tevin Samuels; Ramu Sutherland MD; Rodolfo Dillon MD Technologist: Cole Castano CTDI: DLP: Trnscrpt: 12/30/2019 (0742) [email or web address] [facility] NAME: JORGE A HORTA [address] PHYS: [place] [address] : 1940 AGE: 79 SEX: F LOC: Z.SI06 A PHONE #: [phone] EXAM DATE: 12/30/2019 STATUS: ADM IN FAX #: [phone] RAD #: D/C DT PAGE 3 Signed Report Patient Name: JORGE A HORTA Unit No: [id number] EXAMS: CPT CODE: [id number] CT ABD PELVIS W/CONT 18265 <Continued> Orig Print D/T: S: 12/30/2019 (0745) [facility] NAME: JORGE A HORTAmond PHYS: [place] [address] : 1940 AGE: 79 SEX: F LOC: Z.SI06 A PHONE #: [phone] EXAM DATE: 12/30/2019 STATUS: ADM IN FAX #: [phone] RAD #: D/C DT PAGE 4 Signed ReportSI METABOLIC [id number] 05:39:00 Test Item Value Reference Range Interpretation [...] 8.1 MG/DL 8.4-10.2 L CA) BASIC METABOLIC [id number] 05:25:00 Test Item Value Reference Range Interpretation [...] code = MG/DL 8.7-9.7 CA) BASIC METABOLIC [id number] 05:23:00 Test Item Value Reference Range Interpretation [...] code = CA) MG/DL 8.7-9.7 BASIC METABOLIC [id number] 05:22:00 Test Item Value Reference Range Interpretation [...] code = CA) MG/DL 8.7-9.7 CBC W/AUTO [id number] 05:17:00 Test Item Value Reference Range Interpretation [...] = 0.00 K/mm3 0.0-0.1 N NRBC#) DIFFERENTIAL [id number] 05:17:00 Test Item Value Reference Range Interpretation Comments RBC MORPHOLOGY REQUIRED (test code = RBCM) PLATELET ESTIMATE (test code = PLTEST) ADEQUATE PLATELET MORPHOLOGY (test code = NORMAL PLTMORPH) CBC W/AUTO [id number] 05:17:00 Test Item Value Reference Range Interpretation [...] = 0.00 K/mm3 0.0-0.1 N NRBC#) DIFFERENTIAL [id number] 05:17:00 Test Item Value Reference Range Interpretation Comments RBC MORPHOLOGY REQUIRED (test code = RBCM) PLATELET ESTIMATE (test code = PLTEST) ADEQUATE PLATELET MORPHOLOGY (test code = NORMAL PLTMORPH) ARTERIAL BLOOD [id number] 03:21:00 Test Item Value Reference Range Interpretation [...] = TEMPA) [facility] ALLENS TEST (test code NA CHECK = ALLENS) FIO2 (test code = 32 % COHBGFFIO2) PaO2/[id number] 03:21:00 Test Item Value Reference Range Interpretation Comments PaO2/FiO2 (test code = RER7CWS6) mm/Hg ARTERIAL BLOOD [id number] 03:21:00 Test Item Value Reference Range Interpretation [...] = TEMPA) ABG SITE (test code = MO SITEA) ALLENS TEST (test code NA CHECK = ALLENS) FIO2 (test code = 32 % COHBGFFIO2) PaO2/[id number] 03:21:00 Test Item Value Reference Range Interpretation Comments PaO2/FiO2 (test code = DIV0YHJ4) 295.93 mm/Hg GLUCOSE BEDSIDE [id number] 20:10:00 Test Item Value Reference Range Interpretation Comments GLUCOSE BEDSIDE TESTING (test code = 80 MG/DL 60-99 N GLUBED) GLUCOSE BEDSIDE [id number] 17:00:00 Test Item Value Reference Range Interpretation Comments GLUCOSE BEDSIDE TESTING (test code = 99 MG/DL 60-99 N GLUBED) ARTERIAL BLOOD [id number] 16:38:00 Test Item Value Reference Range Interpretation [...] FIO2 (test code = COHBGFFIO2) 36 % PaO2/[id number] 16:38:00 Test Item Value Reference Range Interpretation Comments PaO2/FiO2 (test code = HTN4ZUP3) mm/Hg ARTERIAL BLOOD [id number] 16:38:00 Test Item Value Reference Range Interpretation [...] FIO2 (test code = COHBGFFIO2) 36 % PaO2/[id number] 16:38:00 Test Item Value Reference Range Interpretation Comments PaO2/FiO2 (test code = TYC0JXK1) 543.05 mm/Hg ARTERIAL BLOOD [id number] 11:48:00 Test Item Value Reference Range Interpretation [...] FIO2 (test code = COHBGFFIO2) 50 % PaO2/[id number] 11:48:00 Test Item Value Reference Range Interpretation Comments PaO2/FiO2 (test code = VFH3JRZ0) mm/Hg ARTERIAL BLOOD [id number] 11:48:00 Test Item Value Reference Range Interpretation [...] >37 TEMPA) [facility] AL ALLENS TEST (test code = ALLENS) NA CHECK FIO2 (test code = COHBGFFIO2) 50 % PaO2/[id number] 11:48:00 Test Item Value Reference Range Interpretation Comments PaO2/FiO2 (test code = DRI8YVQ9) 345.40 mm/Hg GLUCOSE BEDSIDE [id number] 11:02:00 Test Item Value Reference Range Interpretation Comments GLUCOSE BEDSIDE TESTING (test code 131 MG/DL 60-99 H = GLUBED) ARTERIAL BLOOD [id number] 10:15:00 Test Item Value Reference Range Interpretation [...] FIO2 (test code = COHBGFFIO2) 40 % PaO2/[id number] 10:15:00 Test Item Value Reference Range Interpretation Comments PaO2/FiO2 (test code = CFR6SUO1) mm/Hg ARTERIAL BLOOD [id number] 10:15:00 Test Item Value Reference Range Interpretation [...] FIO2 (test code = COHBGFFIO2) 40 % PaO2/[id number] 10:15:00 Test Item Value Reference Range Interpretation Comments PaO2/FiO2 (test code = LTZ2VFO4) 270.50 mm/Hg GLUCOSE BEDSIDE [id number] 07:25:00 Test Item Value Reference Range Interpretation Comments GLUCOSE BEDSIDE TESTING (test code 103 MG/DL 60-99 H = GLUBED) CBC W/AUTO [id number] 04:50:00 Test Item Value Reference Range Interpretation [...] = 0.02 K/mm3 0.0-0.1 N NRBC#) DIFFERENTIAL [id number] 04:50:00 Test Item Value Reference Range Interpretation Comments RBC MORPHOLOGY REQUIRED (test code = RBCM) PLATELET ESTIMATE (test code = PLTEST) ADEQUATE PLATELET MORPHOLOGY (test code = NORMAL PLTMORPH) CBC W/AUTO [id number] 04:50:00 Test Item Value Reference Range Interpretation [...] = 0.02 K/mm3 0.0-0.1 N NRBC#) DIFFERENTIAL [id number] 04:50:00 Test Item Value Reference Range Interpretation Comments RBC MORPHOLOGY REQUIRED (test code = RBCM) PLATELET ESTIMATE (test code = PLTEST) ADEQUATE PLATELET MORPHOLOGY (test code = NORMAL PLTMORPH) GLUCOSE BEDSIDE [id number] 20:04:00 Test Item Value Reference Range Interpretation Comments GLUCOSE BEDSIDE TESTING (test code 112 MG/DL 60-99 H = GLUBED) ARTERIAL BLOOD [id number] 17:50:00 Test Item Value Reference Range Interpretation [...] FIO2 (test code = COHBGFFIO2) 40 % PaO2/[id number] 17:50:00 Test Item Value Reference Range Interpretation Comments PaO2/FiO2 (test code = WLO6ZTG0) mm/Hg ARTERIAL BLOOD [id number] 17:50:00 Test Item Value Reference Range Interpretation [...] FIO2 (test code = COHBGFFIO2) 40 % PaO2/[id number] 17:50:00 Test Item Value Reference Range Interpretation Comments PaO2/FiO2 (test code = CFJ6ZLR9) 283.25 mm/Hg GLUCOSE BEDSIDE [id number] 16:16:00 Test Item Value Reference Range Interpretation Comments GLUCOSE BEDSIDE TESTING (test code 102 MG/DL 60-99 H = GLUBED) CBC W/O [id number] 11:57:00 Test Item Value Reference Range Interpretation Comments WHITE BLOOD CELL (test 32.0 K/MM3 3.8-9.8 HH ALEYDA MCCRAY R code = WBC) & [...] K/mm3 0.0-0.1 N code = NRBC#) DIFFERENTIAL [id number] 11:57:00 Test Item Value Reference Range Interpretation Comments RBC MORPHOLOGY REQUIRED (test code = NORMAL RBCM) ANISOCYTOSIS (test code = ANISO) SLIGHT NONE MACROCYTOSIS (test code = MACR) FEW NONE PLATELET ESTIMATE (test code = ADEQUATE ADEQUATE PLTEST) PLATELET MORPHOLOGY (test code = NORMAL NORMAL PLTMORPH) WBC [id number] 11:57:00 Test Item Value Reference Range Interpretation [...] code = GERTRUDIS) 0.8 % 0-0 H [id number] 11:46:00 Test Item Value Reference Range Interpretation Comments VANCOMYCIN (test code = VANCO) 13.8 mcg/ML 5.0-26.0 N UNABLE TO DRAW BLOOD, REASON: CBNNOTIFIED PATIENT CARE STAFF: MOSHE 12/28/19 AT 1048 BY Hannah Busby [facility] BLOOD [id number] 11:19:00 Test Item Value Reference Range Interpretation [...] FIO2 (test code = COHBGFFIO2) 40 % PaO2/[id number] 11:19:00 Test Item Value Reference Range Interpretation Comments PaO2/FiO2 (test code = TFJ0OQU8) mm/Hg ARTERIAL BLOOD [id number] 11:19:00 Test Item Value Reference Range Interpretation [...] FIO2 (test code = COHBGFFIO2) 40 % PaO2/[id number] 11:19:00 Test Item Value Reference Range Interpretation Comments PaO2/FiO2 (test code = HMJ4OUE6) 279.25 mm/Hg GLUCOSE BEDSIDE [id number] 10:39:00 Test Item Value Reference Range Interpretation Comments GLUCOSE BEDSIDE TESTING (test code 153 MG/DL 60-99 H = GLUBED) ARTERIAL BLOOD [id number] 10:05:00 Test Item Value Reference Range Interpretation [...] FIO2 (test code = COHBGFFIO2) 30 % PaO2/[id number] 10:05:00 Test Item Value Reference Range Interpretation Comments PaO2/FiO2 (test code = BSE4TPR0) 279.66 mm/Hg ARTERIAL BLOOD [id number] 10:04:00 Test Item Value Reference Range Interpretation [...] FIO2 (test code = COHBGFFIO2) 30 % PaO2/[id number] 10:04:00 Test Item Value Reference Range Interpretation Comments PaO2/FiO2 (test code = PFL1RNO8) mm/Hg CBC W/O [id number] 08:07:00 Test Item Value Reference Range Interpretation Comments WHITE BLOOD CELL (test 32.0 K/MM3 3.8-9.8 HH ALEYDA MCCRAY R code = WBC) & [...] K/mm3 0.0-0.1 N code = NRBC#) DIFFERENTIAL [id number] 08:07:00 Test Item Value Reference Range Interpretation Comments RBC MORPHOLOGY REQUIRED (test code = RBCM) PLATELET ESTIMATE (test code = PLTEST) ADEQUATE PLATELET MORPHOLOGY (test code = NORMAL PLTMORPH) WBC [id number] 08:07:00 Test Item Value Reference Range Interpretation Comments TOTAL CELLS COUNTED (test code = TCC) #CELLS SEGMENTED NEUTROPHILS (test code = % 36.2-73.8 SEG) LYMPHOCYTE (test code = LYMPH) % 12.9-45.1 MONOCYTE (test code = MON) % 0-11 CBC W/AUTO [id number] 08:07:00 Test Item Value Reference Range Interpretation [...] K/mm3 0.0-0.1 N code = NRBC#) WBC [id number] 08:07:00 Test Item Value Reference Range Interpretation Comments RBC MORPHOLOGY REQUIRED (test code = RBCM) TOTAL CELLS COUNTED (test code = TCC) #CELLS SEGMENTED NEUTROPHILS (test code = % 36.2-73.8 SEG) LYMPHOCYTE (test code = LYMPH) % 12.9-45.1 MONOCYTE (test code = MON) % 0-11 PLATELET ESTIMATE (test code = ADEQUATE PLTEST) PLATELET MORPHOLOGY (test code = NORMAL PLTMORPH) GLUCOSE BEDSIDE [id number] 07:48:00 Test Item Value Reference Range Interpretation Comments GLUCOSE BEDSIDE TESTING (test code 122 MG/DL 60-99 H = GLUBED) GLUCOSE BEDSIDE [id number] 05:14:00 Test Item Value Reference Range Interpretation Comments GLUCOSE BEDSIDE TESTING (test code 131 MG/DL 60-99 H = GLUBED) GLUCOSE BEDSIDE [id number] 05:14:00 Test Item Value Reference Range Interpretation Comments GLUCOSE BEDSIDE TESTING (test code 115 MG/DL 60-99 H = GLUBED) GLUCOSE BEDSIDE [id number] 05:14:00 Test Item Value Reference Range Interpretation Comments GLUCOSE BEDSIDE TESTING (test code 114 MG/DL 60-99 H = GLUBED) GLUCOSE BEDSIDE [id number] 05:12:00 Test Item Value Reference Range Interpretation Comments GLUCOSE BEDSIDE TESTING (test code 156 MG/DL 60-99 H = GLUBED) GLUCOSE BEDSIDE [id number] 05:12:00 Test Item Value Reference Range Interpretation Comments GLUCOSE BEDSIDE TESTING (test code 161 MG/DL 60-99 H = GLUBED) GLUCOSE BEDSIDE [id number] 05:12:00 Test Item Value Reference Range Interpretation Comments GLUCOSE BEDSIDE TESTING (test code = 84 MG/DL 60-99 N GLUBED) GLUCOSE BEDSIDE [id number] 05:12:00 Test Item Value Reference Range Interpretation Comments GLUCOSE BEDSIDE TESTING (test code 103 MG/DL 60-99 H = GLUBED) GLUCOSE BEDSIDE [id number] 05:12:00 Test Item Value Reference Range Interpretation Comments GLUCOSE BEDSIDE TESTING (test code 175 MG/DL 60-99 H = GLUBED) GLUCOSE BEDSIDE [id number] 05:11:00 Test Item Value Reference Range Interpretation Comments GLUCOSE BEDSIDE TESTING (test code 131 MG/DL 60-99 H = GLUBED) COLON SEGMENT RESEC. NOT [id number] 22:42:00 Test Item Value Reference Range Interpretation Comments COLON SEGMENT RESEC. NOT TUMOR (test code = COLONR) RUN DATE: 12/27/19 [facility] PAGE 1 RUN TIME: 2242 Specimen Inquiry RUN USER: INTERFACE PATIENT: JORGE A HORTA LOC: PowerANNIEMorena U #: [id number] AGE/SX: 79/F ROOM: [facility] RE11/26/19KIKI DR: Tevin Samuels MD : 38 BED: A DIS: STATUS: ADM IN TLOC: SPEC #: [id number]:COCHRAN:[id number] RECD: 12/24/19 STATUS: DEVORA ALLEN #: [id number] KEENAN: 12/22/[address]: Rashid Son MD ENTERED: 12/24/19 SP TYPE: COLONR OTHR DR: Self Referred Sarah Ovalles DO R2 Joe Higgins MD, Hansaa MD R1 Odalys Juárez MD R1 Adalberto,Donna Sutherland,Ramu Jordan,Raji CORREIA R1 Jose Alfredo Goff MD,Andrei Conner,Reuben Wilder,Jason Joseph,Juan Dixon,Ezequiel Smith,Georgina Claudio,Georgette CORREIAORDERED: SURG PATH LVL 5 CODES: M79979 D73558 - SMALL INTESTINE ISCHEMIA, NOS H35914 Y21593 - SMALL INTESTINE PERFORATION, NO H29344 Z59624 - SMALL INTESTINE NECROSIS, NOS Q32041 - COLON, NOS T24471 [id number] - COLON, NOS EXCISION, NOS Y56878 - TRANSVERSE COLO ML6680 - LYMPH NODE, NOS COPIES TO: Self Referred Sarah Ovalles DO R2 [address] [place] [address] Joe Higgins MD [address] [place] [address] Home Bryant MD R1 [address] [place] [address] CONTINUED ON NEXT PAGE RUN DATE: 12/27/19 [facility] PAGE 2 RUN TIME: 2 Specimen Inquiry RUN USER: INTERFACE SPEC #: [id number]:COCHRAN:[id number] PATIENT: JORGE A HORTA #[id number] (Continued) --- COPIES TO: (Continued) Odalys Juárez MD [address] [address] [place] [address] [place] [address] [facility] [address] [place], [facility] [place] Ramu Sutherland MD [address] [place] [address] [place] [address] Raji Jordan MD R1 [address] [place] [address] [place] [address] [facility] [place] [id number] Rashid Son MD [address] [facility] [place], [place] [id number] [email or web address] Andrei Solis MD [address] [place] [address] [place] [address] [facility] [address] [place] [address] Jason Wilder MD [address] [facility] [address] [place] [address] [place] [address] [place] [address] CONTINUED ON NEXT PAGE RUN DATE: 12/27/19 [facility] PAGE 3 RUN TIME: 2241 Specimen Inquiry RUN USER: INTERFACE SPEC #: [id number]:COCHRAN:[id number] PATIENT: JORGE A HORTA #[id number] (Continued) --- COPIES TO: (Continued) Ezequiel Dixon [address] [place] [address] Georgina Smith MD [facility] [place] [address] [place] [address] Georgette Claudio MD [address] [facility] [address] [place] [address] PROCEDURES: SURG PATH LVL 5 (12/24/19-1050) TISSUES: A. COLON, NOS - RIGHT AND TRANSVERSE COLON CPT CODES CPT CODE(S): 67874 , , , , , , FINAL [...] CONTINUED ON NEXT PAGE RUN DATE: 12/27/19 [facility] LAB PAGE 4 RUN TIME: 2 Specimen Inquiry RUN USER: INTERFACE SPEC #: [id number]:COCHRAN:[id number] PATIENT: JORGE A HORTA #[id number] (Continued) --- GROSS DESCRIPTION (Continued) serosal surface. [...] Signed SIGNATURE ON FILE Xander Marshall 12/27/19 2242 END OF REPORT ARTERIAL BLOOD [id number] 22:17:00 Test Item Value Reference Range Interpretation [...] FIO2 (test code = COHBGFFIO2) 30 % PaO2/[id number] 22:17:00 Test Item Value Reference Range Interpretation Comments PaO2/FiO2 (test code = WXX1LAP6) mm/Hg ARTERIAL BLOOD [id number] 22:17:00 Test Item Value Reference Range Interpretation [...] >37 TEMPA) [facility] AL DANITA TEST (test code = ALLENS) N CHECK FIO2 (test code = COHBGFFIO2) 30 % PaO2/[id number] 22:17:00 Test Item Value Reference Range Interpretation Comments PaO2/FiO2 (test code = CHO4KCG5) 251.66 mm/Hg ARTERIAL BLOOD [id number] 16:54:00 Test Item Value Reference Range Interpretation [...] FIO2 (test code = COHBGFFIO2) 30 % PaO2/[id number] 16:54:00 Test Item Value Reference Range Interpretation Comments PaO2/FiO2 (test code = VWD4CZM9) mm/Hg ARTERIAL BLOOD [id number] 16:54:00 Test Item Value Reference Range Interpretation [...] FIO2 (test code = COHBGFFIO2) 30 % PaO2/[id number] 16:54:00 Test Item Value Reference Range Interpretation Comments PaO2/FiO2 (test code = OJQ6AWP9) 310.33 mm/Hg ARTERIAL BLOOD [id number] 14:42:00 Test Item Value Reference Range Interpretation [...] >37 TEMPA) [facility] AL ALLENS TEST (test code = [facility]) NA CHECK FIO2 (test code = COHBGFFIO2) 30 % PaO2/[id number] 14:42:00 Test Item Value Reference Range Interpretation Comments PaO2/FiO2 (test code = IKD5SIR5) mm/Hg ARTERIAL BLOOD [id number] 14:42:00 Test Item Value Reference Range Interpretation [...] FIO2 (test code = COHBGFFIO2) 30 % PaO2/[id number] 14:42:00 Test Item Value Reference Range Interpretation Comments PaO2/FiO2 (test code = COO7IUM9) 270.66 mm/Hg CBC W/O [id number] 14:26:00 Test Item Value Reference Range Interpretation [...] code = NRBC#) GAVE TUBES TO JUVENCBNDIFFERENTIAL [id number] 14:26:00 Test Item Value Reference Range Interpretation Comments RBC MORPHOLOGY REQUIRED (test code = NORMAL RBCM) ANISOCYTOSIS (test code = ANISO) SLIGHT NONE PLATELET ESTIMATE (test code = ADEQUATE ADEQUATE PLTEST) PLATELET MORPHOLOGY (test code = NORMAL NORMAL PLTMORPH) GAVE TUBES TO JUVENCBNWBC [id number] 14:26:00 Test Item Value Reference Range Interpretation [...] 0-0 H GAVE TUBES TO JUVENCBNARTERIAL BLOOD [id number] 14:12:00 Test Item Value Reference Range Interpretation [...] FIO2 (test code = 30 % COHBGFFIO2) PaO2/[id number] 14:12:00 Test Item Value Reference Range Interpretation Comments PaO2/FiO2 (test code = OOX8RUC5) mm/Hg ARTERIAL BLOOD [id number] 14:12:00 Test Item Value Reference Range Interpretation [...] FIO2 (test code = 30 % COHBGFFIO2) PaO2/[id number] 14:12:00 Test Item Value Reference Range Interpretation Comments PaO2/FiO2 (test code = SUS0DQN2) 226.66 mm/Hg GLUCOSE BEDSIDE [id number] 13:23:00 Test Item Value Reference Range Interpretation Comments GLUCOSE BEDSIDE TESTING (test code 122 MG/DL 60-99 H = GLUBED) ARTERIAL BLOOD [id number] 12:31:00 Test Item Value Reference Range Interpretation [...] FIO2 (test code = 24 % COHBGFFIO2) PaO2/[id number] 12:31:00 Test Item Value Reference Range Interpretation Comments PaO2/FiO2 (test code = IFA2HLW5) mm/Hg ARTERIAL BLOOD [id number] 12:31:00 Test Item Value Reference Range Interpretation [...] FIO2 (test code = 24 % COHBGFFIO2) PaO2/[id number] 12:31:00 Test Item Value Reference Range Interpretation Comments PaO2/FiO2 (test code = RMH4XYM3) 307.50 mm/Hg GLUCOSE BEDSIDE [id number] 12:00:00 Test Item Value Reference Range Interpretation Comments GLUCOSE BEDSIDE TESTING (test code 128 MG/DL 60-99 H = GLUBED) ARTERIAL BLOOD [id number] 10:42:00 Test Item Value Reference Range Interpretation [...] FIO2 (test code = COHBGFFIO2) 24 % PaO2/[id number] 10:42:00 Test Item Value Reference Range Interpretation Comments PaO2/FiO2 (test code = HXM7BJU4) mm/Hg ARTERIAL BLOOD [id number] 10:42:00 Test Item Value Reference Range Interpretation [...] FIO2 (test code = COHBGFFIO2) 24 % PaO2/[id number] 10:42:00 Test Item Value Reference Range Interpretation Comments PaO2/FiO2 (test code = [id number]) 347.91 mm/Hg ARTERIAL BLOOD [id number] 09:30:00 Test Item Value Reference Range Interpretation [...] FIO2 (test code = COHBGFFIO2) 24 % PaO2/[id number] 09:30:00 Test Item Value Reference Range Interpretation Comments PaO2/FiO2 (test code = [id number]) mm/Hg ARTERIAL BLOOD [id number] 09:30:00 Test Item Value Reference Range Interpretation [...] FIO2 (test code = COHBGFFIO2) 24 % PaO2/[id number] 09:30:00 Test Item Value Reference Range Interpretation Comments PaO2/FiO2 (test code = GXG4HXH3) 315.41 mm/Hg BASIC METABOLIC [id number] 07:27:00 Test Item Value Reference Range Interpretation [...] MG/DL 8.4-10.2 N CA) GAVE TUBES TO [id number] 07:27:00 Test Item Value Reference Range Interpretation Comments PHOSPHOROUS (test code = PHOS) 4.2 MG/DL 2.5-4.5 N GAVE TUBES TO [id number] 07:27:00 Test Item Value Reference Range Interpretation Comments MAGNESIUM (test code = MAG) 2.0 MG/DL 1.6-2.3 N GAVE TUBES TO JUVENNBASIC METABOLIC [id number] 07:26:00 Test Item Value Reference Range Interpretation [...] = MG/DL 8.7-9.7 CA) GAVE TUBES TO [id number] 07:26:00 Test Item Value Reference Range Interpretation Comments PHOSPHOROUS (test code = PHOS) MG/DL 2.5-4.5 GAVE TUBES TO [id number] 07:26:00 Test Item Value Reference Range Interpretation Comments MAGNESIUM (test code = MAG) MG/DL 1.6-2.3 GAVE TUBES TO JUVENCBNBASIC METABOLIC [id number] 07:23:00 Test Item Value Reference Range Interpretation [...] = CA) MG/DL 8.7-9.7 GAVE TUBES TO [id number] 07:23:00 Test Item Value Reference Range Interpretation Comments PHOSPHOROUS (test code = PHOS) MG/DL 2.5-4.5 GAVE TUBES TO [id number] 07:23:00 Test Item Value Reference Range Interpretation Comments MAGNESIUM (test code = MAG) MG/DL 1.6-2.3 GAVE TUBES TO JUVENCBNCBC W/O [id number] 07:20:00 Test Item Value Reference Range Interpretation [...] code = NRBC#) GAVE TUBES TO JUVENCBNDIFFERENTIAL [id number] 07:20:00 Test Item Value Reference Range Interpretation Comments RBC MORPHOLOGY REQUIRED (test code = RBCM) PLATELET ESTIMATE (test code = PLTEST) ADEQUATE PLATELET MORPHOLOGY (test code = NORMAL PLTMORPH) GAVE TUBES TO JUVENCBNWBC [id number] 07:20:00 Test Item Value Reference Range Interpretation Comments TOTAL CELLS COUNTED (test code = TCC) #CELLS SEGMENTED NEUTROPHILS (test code = % 36.2-73.8 SEG) LYMPHOCYTE (test code = LYMPH) % 12.9-45.1 MONOCYTE (test code = MON) % 0-11 GAVE TUBES TO JUVENCBNCBC W/AUTO [id number] 07:20:00 Test Item Value Reference Range Interpretation [...] code = NRBC#) GAVE TUBES TO JUVENCBNWBC [id number] 07:20:00 Test Item Value Reference Range Interpretation [...] NORMAL PLTMORPH) GAVE TUBES TO JUVENCBNGLUCOSE BEDSIDE [id number] 20:59:00 Test Item Value Reference Range Interpretation Comments GLUCOSE BEDSIDE TESTING (test code 108 MG/DL 60-99 H = GLUBED) HGB [id number] 20:16:00 Test Item Value Reference Range Interpretation Comments HEMOGLOBIN (test code = HGB) 10.4 G/DL 11.2-14.9 L HEMATOCRIT (test code = HCT) 31.8 % 33.2-43.5 L ARTERIAL BLOOD [id number] 20:09:00 Test Item Value Reference Range Interpretation [...] to and readback by DANILO Elmore by BERTA at 12/26/2019 6:32 :57 PM ABG DELIVERY [...] FIO2 (test code = 24 % COHBGFFIO2) PaO2/[id number] 20:09:00 Test Item Value Reference Range Interpretation Comments PaO2/FiO2 (test code = RNC4TXL8) mm/Hg ARTERIAL BLOOD [id number] 20:09:00 Test Item Value Reference Range Interpretation [...] FIO2 (test code = 24 % COHBGFFIO2) PaO2/[id number] 20:09:00 Test Item Value Reference Range Interpretation Comments PaO2/FiO2 (test code = GLH9VUO0) 378.75 mm/Hg ARTERIAL BLOOD [id number] 16:56:00 Test Item Value Reference Range Interpretation [...] FIO2 (test code = 24 % COHBGFFIO2) PaO2/[id number] 16:56:00 Test Item Value Reference Range Interpretation Comments PaO2/FiO2 (test code = GFE3UOO1) mm/Hg ARTERIAL BLOOD [id number] 16:56:00 Test Item Value Reference Range Interpretation [...] FIO2 (test code = 24 % COHBGFFIO2) PaO2/[id number] 16:56:00 Test Item Value Reference Range Interpretation Comments PaO2/FiO2 (test code = THI8VAH9) 413.75 mm/Hg GLUCOSE BEDSIDE [id number] 16:14:00 Test Item Value Reference Range Interpretation Comments GLUCOSE BEDSIDE TESTING (test code 106 MG/DL 60-99 H = GLUBED) HGB [id number] 15:44:00 Test Item Value Reference Range Interpretation Comments HEMOGLOBIN (test code = HGB) 9.9 G/DL 11.2-14.9 L HEMATOCRIT (test code = HCT) 29.1 % 33.2-43.5 L LACTIC [id number] 11:54:00 Test Item Value Reference Range Interpretation Comments LACTIC ACID (test code = LACT) 1.7 MMOL/L 0.7-2.1 N GLUCOSE BEDSIDE [id number] 11:16:00 Test Item Value Reference Range Interpretation Comments GLUCOSE BEDSIDE TESTING (test code 123 MG/DL 60-99 H = GLUBED) ARTERIAL BLOOD [id number] 10:36:00 Test Item Value Reference Range Interpretation [...] FIO2 (test code = COHBGFFIO2) 24 % PaO2/[id number] 10:36:00 Test Item Value Reference Range Interpretation Comments PaO2/FiO2 (test code = ADJ0NZD8) mm/Hg ARTERIAL BLOOD [id number] 10:36:00 Test Item Value Reference Range Interpretation [...] FIO2 (test code = COHBGFFIO2) 24 % PaO2/[id number] 10:36:00 Test Item Value Reference Range Interpretation Comments PaO2/FiO2 (test code = MKZ7XWH1) 414.16 mm/Hg HGB [id number] 07:58:00 Test Item Value Reference Range Interpretation Comments HEMOGLOBIN (test code = HGB) 9.6 G/DL 11.2-14.9 L HEMATOCRIT (test code = HCT) 28.7 % 33.2-43.5 L GLUCOSE BEDSIDE [id number] 07:48:00 Test Item Value Reference Range Interpretation Comments GLUCOSE BEDSIDE TESTING 120 MG/DL 60-99 H Noti fied Nurse~ (test code = GLUBED) [id number] 05:42:00 Test Item Value Reference Range Interpretation Comments VANCOMYCIN (test code = VANCO) 16.2 mcg/ML 5.0-26.0 N BASIC METABOLIC [id number] 05:38:00 Test Item Value Reference Range Interpretation [...] code = 8.6 MG/DL 8.4-10.2 N CA) [id number] 05:38:00 Test Item Value Reference Range Interpretation Comments PHOSPHOROUS (test code = PHOS) 3.8 MG/DL 2.5-4.5 N [id number] 05:38:00 Test Item Value Reference Range Interpretation Comments MAGNESIUM (test code = MAG) 2.0 MG/DL 1.6-2.3 N BASIC METABOLIC [id number] 05:37:00 Test Item Value Reference Range Interpretation [...] CALCIUM (test code = MG/DL 8.7-9.7 CA) [id number] 05:37:00 Test Item Value Reference Range Interpretation Comments PHOSPHOROUS (test code = PHOS) 3.8 MG/DL 2.5-4.5 N [id number] 05:37:00 Test Item Value Reference Range Interpretation Comments MAGNESIUM (test code = MAG) MG/DL 1.6-2.3 LACTIC [id number] 05:37:00 Test Item Value Reference Range Interpretation Comments LACTIC ACID (test code = LACT) 1.5 MMOL/L 0.7-2.1 N PROTHROMBIN [id number] 05:37:00 Test Item Value Reference Range Interpretation [...] eric embolism. 3.0 - 4.5 BASIC METABOLIC [id number] 05:36:00 Test Item Value Reference Range Interpretation [...] CALCIUM (test code = MG/DL 8.7-9.7 CA) [id number] 05:36:00 Test Item Value Reference Range Interpretation Comments PHOSPHOROUS (test code = PHOS) MG/DL 2.5-4.5 [id number] 05:36:00 Test Item Value Reference Range Interpretation Comments MAGNESIUM (test code = MAG) MG/DL 1.6-2.3 BASIC METABOLIC [id number] 05:33:00 Test Item Value Reference Range Interpretation [...] CALCIUM (test code = CA) MG/DL 8.7-9.7 [id number] 05:33:00 Test Item Value Reference Range Interpretation Comments PHOSPHOROUS (test code = PHOS) MG/DL 2.5-4.5 [id number] 05:33:00 Test Item Value Reference Range Interpretation Comments MAGNESIUM (test code = MAG) MG/DL 1.6-2.3 BASIC METABOLIC [id number] 05:33:00 Test Item Value Reference Range Interpretation [...] CALCIUM (test code = CA) MG/DL 8.7-9.7 [id number] 05:33:00 Test Item Value Reference Range Interpretation Comments PHOSPHOROUS (test code = PHOS) MG/DL 2.5-4.5 [id number] 05:33:00 Test Item Value Reference Range Interpretation Comments MAGNESIUM (test code = MAG) MG/DL 1.6-2.3 CBC W/AUTO [id number] 05:26:00 Test Item Value Reference Range Interpretation [...] = 0.03 K/mm3 0.0-0.1 N NRBC#) DIFFERENTIAL [id number] 05:26:00 Test Item Value Reference Range Interpretation Comments RBC MORPHOLOGY REQUIRED (test code = RBCM) PLATELET ESTIMATE (test code = PLTEST) ADEQUATE PLATELET MORPHOLOGY (test code = NORMAL PLTMORPH) CBC W/AUTO [id number] 05:26:00 Test Item Value Reference Range Interpretation [...] = 0.03 K/mm3 0.0-0.1 N NRBC#) DIFFERENTIAL [id number] 05:26:00 Test Item Value Reference Range Interpretation Comments RBC MORPHOLOGY REQUIRED (test code = RBCM) PLATELET ESTIMATE (test code = PLTEST) ADEQUATE PLATELET MORPHOLOGY (test code = NORMAL PLTMORPH) ARTERIAL BLOOD [id number] 04:54:00 Test Item Value Reference Range Interpretation [...] (test code -3.5 mmol/L -3.0-3.0 L = SETVEN) ABG O2 SATURATION (test 97.6 % 95.0-100.0 [...] FIO2 (test code = 24 % COHBGFFIO2) PaO2/[id number] 04:54:00 Test Item Value Reference Range Interpretation Comments PaO2/FiO2 (test code = MXX3JQB3) mm/Hg ARTERIAL BLOOD [id number] 04:54:00 Test Item Value Reference Range Interpretation [...] FIO2 (test code = 24 % COHBGFFIO2) PaO2/[id number] 04:54:00 Test Item Value Reference Range Interpretation Comments PaO2/FiO2 (test code = VJM6CFD6) 394.16 mm/Hg GLUCOSE BEDSIDE [id number] 21:17:00 Test Item Value Reference Range Interpretation Comments GLUCOSE BEDSIDE TESTING (test code 127 MG/DL 60-99 H = GLUBED) HGB [id number] 19:42:00 Test Item Value Reference Range Interpretation Comments HEMOGLOBIN (test code = HGB) 10.1 G/DL 11.2-14.9 L HEMATOCRIT (test code = HCT) 30.4 % 33.2-43.5 L UNABLE TO DRAW BLOOD, REASON: CBNNOTIFIED PATIENT CARE STAFF: ERIK 12/25/19 AT 1744 BY Kristen Henry AnGLUCOSE BEDSIDE [id number] 15:53:00 Test Item Value Reference Range Interpretation Comments GLUCOSE BEDSIDE TESTING 135 MG/DL 60-99 H Noti fied Nurse~ (test code = GLUBED) LACTIC [id number] 15:16:00 Test Item Value Reference Range Interpretation Comments LACTIC ACID (test code = LACT) 1.6 MMOL/L 0.7-2.1 N UNABLE TO DRAW BLOOD, REASON: CBNNOTIFIED PATIENT CARE STAFF: ERIK 12/25/19 AT 1412 BY Kristen HenryVANCOMYCIN [id number] 15:12:00 Test Item Value Reference Range Interpretation Comments VANCOMYCIN TROUGH (test code = 20.4 UG/ML 10.0-20.0 H VANCT) UNABLE TO DRAW BLOOD, REASON: CBNNOTIFIED PATIENT CARE STAFF: ERIK 12/25/19 AT 1411 BY Kristen Henry AnHGB [id number] 14:45:00 Test Item Value Reference Range Interpretation Comments HEMOGLOBIN (test code = HGB) 10.5 G/DL 11.2-14.9 L HEMATOCRIT (test code = HCT) 31.2 % 33.2-43.5 L UNABLE TO DRAW BLOOD, REASON: CBNNOTIFIED PATIENT CARE STAFF: ERIK 12/25/19 AT 1412 BY Kristen HenryLACTIC [id number] 12:57:00 Test Item Value Reference Range Interpretation Comments LACTIC ACID (test code = LACT) 1.4 MMOL/L 0.7-2.1 N GLUCOSE BEDSIDE [id number] 12:18:00 Test Item Value Reference Range Interpretation Comments GLUCOSE BEDSIDE TESTING 136 MG/DL 60-99 H Noti fied Nurse~ (test code = GLUBED) HGB [id number] 08:53:00 Test Item Value Reference Range Interpretation Comments HEMOGLOBIN (test code = HGB) 10.2 G/DL 11.2-14.9 L HEMATOCRIT (test code = HCT) 30.2 % 33.2-43.5 L UNABLE TO DRAW BLOOD, REASON: CBNNOTIFIED PATIENT CARE STAFF: DANILO PABON 12/25/19 AT 0835 BY Aydee Daniels CHEST [id number] 07:44:00 [facility] 1940 Sex: F Patient Name: JORGE A HORTA Unit No: [id number] EXAMS: CPT CODE: [id number] XR CHEST 1V [id number] LOCATION: T18 EXAM: CHEST 1 VIEW INDICATION: [...] t.SDR.JP19 Orig Print D/T: S: 12/25/2019 (0747) [facility] NAME: JORGE A HORTA [address] [address] PHYS: [place] [address] : 1940 AGE: 79 SEX: F LOC: Z.SI06 A PHONE #: [phone] EXAM DATE: 12/25/2019 STATUS: ADM IN FAX #: [phone] RADIOLOGY NO: PAGE 1 Signed ReportGLUCOSE BEDSIDE [id number] 07:42:00 Test Item Value Reference Range Interpretation Comments GLUCOSE BEDSIDE TESTING 132 MG/DL 60-99 H Noti fied Nurse~ (test code = GLUBED) PROTHROMBIN [id number] 05:02:00 Test Item Value Reference Range Interpretation [...] eric embolism. 3.0 - 4.5 ARTERIAL BLOOD [id number] 04:55:00 Test Item Value Reference Range Interpretation [...] FIO2 (test code = COHBGFFIO2) 35 % PaO2/[id number] 04:55:00 Test Item Value Reference Range Interpretation Comments PaO2/FiO2 (test code = CKP1DVW2) mm/Hg ARTERIAL BLOOD [id number] 04:55:00 Test Item Value Reference Range Interpretation [...] FIO2 (test code = COHBGFFIO2) 35 % PaO2/[id number] 04:55:00 Test Item Value Reference Range Interpretation Comments PaO2/FiO2 (test code = NRZ7ZRG8) 242.85 mm/Hg CBC W/O [id number] 04:33:00 Test Item Value Reference Range Interpretation Comments WHITE BLOOD CELL (test 36.4 K/MM3 3.8-9.8 ALEYDA CEBALLOS M& code = WBC) READBACK ON 12/25/19 [...] K/mm3 0.0-0.1 N code = NRBC#) DIFFERENTIAL [id number] 04:33:00 Test Item Value Reference Range Interpretation Comments RBC MORPHOLOGY REQUIRED (test code = ABNORMAL RBCM) POIKILOCYTOSIS (test code = POIK) FEW NONE ANISOCYTOSIS (test code = ANISO) SLIGHT NONE CRENATED CELLS (test code = CREN) FEW NONE PLATELET ESTIMATE (test code = ADEQUATE ADEQUATE PLTEST) PLATELET MORPHOLOGY (test code = NORMAL NORMAL PLTMORPH) WBC [id number] 04:33:00 Test Item Value Reference Range Interpretation [...] MON) 2.5 % 0-11 N CBC W/O [id number] 03:36:00 Test Item Value Reference Range Interpretation [...] K/mm3 0.0-0.1 N code = NRBC#) DIFFERENTIAL [id number] 03:36:00 Test Item Value Reference Range Interpretation Comments RBC MORPHOLOGY REQUIRED (test code = RBCM) PLATELET ESTIMATE (test code = PLTEST) ADEQUATE PLATELET MORPHOLOGY (test code = NORMAL PLTMORPH) WBC [id number] 03:36:00 Test Item Value Reference Range Interpretation Comments TOTAL CELLS COUNTED (test code = TCC) #CELLS SEGMENTED NEUTROPHILS (test code = % 36.2-73.8 SEG) LYMPHOCYTE (test code = LYMPH) % 12.9-45.1 MONOCYTE (test code = MON) % 0-11 CBC W/AUTO [id number] 03:36:00 Test Item Value Reference Range Interpretation [...] K/mm3 0.0-0.1 N code = NRBC#) WBC [id number] 03:36:00 Test Item Value Reference Range Interpretation Comments RBC MORPHOLOGY REQUIRED (test code = RBCM) TOTAL CELLS COUNTED (test code = TCC) #CELLS SEGMENTED NEUTROPHILS (test code = % 36.2-73.8 SEG) LYMPHOCYTE (test code = LYMPH) % 12.9-45.1 MONOCYTE (test code = MON) % 0-11 PLATELET ESTIMATE (test code = ADEQUATE PLTEST) PLATELET MORPHOLOGY (test code = NORMAL PLTMORPH) BASIC METABOLIC [id number] 03:28:00 Test Item Value Reference Range Interpretation [...] code = 8.6 MG/DL 8.4-10.2 N CA) [id number] 03:28:00 Test Item Value Reference Range Interpretation Comments PHOSPHOROUS (test code = PHOS) 3.4 MG/DL 2.5-4.5 N [id number] 03:28:00 Test Item Value Reference Range Interpretation Comments MAGNESIUM (test code = MAG) 2.3 MG/DL 1.6-2.3 [id number] 21:06:00 Test Item Value Reference Range Interpretation Comments POTASSIUM (test code = K) 3.8 MMOL/L 3.5-5.1 N UNABLE TO DRAW BLOOD, REASON: CBNNOTIFIED PATIENT CARE STAFF: [facility] 12/24/192019 BY Kristen Henry2020-11-15 21:06:00 Test Item Value Reference Range Interpretation Comments CALCIUM (test code = CA) 8.1 MG/DL 8.4-10.2 L UNABLE TO DRAW BLOOD, REASON: CBNNOTIFIED PATIENT CARE STAFF: [facility] 12/24/192019 BY Kristen HenryESIUM2020-11-15 21:06:00 Test Item Value Reference Range Interpretation Comments MAGNESIUM (test code = MAG) 1.9 MG/DL 1.6-2.3 UNABLE TO DRAW BLOOD, REASON: CBNNOTIFIED PATIENT CARE STAFF: [facility] 12/24/192019 BY Kristen HenryIUM2020-11-15 21:05:00 Test Item Value Reference Range Interpretation Comments POTASSIUM (test code = K) 3.8 MMOL/L 3.5-5.1 N UNABLE TO DRAW BLOOD, REASON: CBNNOTIFIED PATIENT CARE STAFF: [facility] 12/24/192019 BY Kristen Henry2020-11-15 21:05:00 Test Item Value Reference Range Interpretation Comments CALCIUM (test code = CA) 8.1 MG/DL 8.4-10.2 L UNABLE TO DRAW BLOOD, REASON: CBNNOTIFIED PATIENT CARE STAFF: [facility] 12/24/192019 BY Kristen HenryESIUM2020-11-15 21:05:00 Test Item Value Reference Range Interpretation Comments MAGNESIUM (test code = MAG) MG/DL 1.6-2.3 UNABLE TO DRAW BLOOD, REASON: CBNNOTIFIED PATIENT CARE STAFF: [facility] 12/24/192019 BY Kristen HenryIUM2020-11-15 21:02:00 Test Item Value Reference Range Interpretation Comments POTASSIUM (test code = K) 3.8 MMOL/L 3.5-5.1 N UNABLE TO DRAW BLOOD, REASON: CBNNOTIFIED PATIENT CARE STAFF: [facility] 12/24/192019 BY Kristen HenryIUM2020-11-15 21:02:00 Test Item Value Reference Range Interpretation Comments CALCIUM (test code = CA) MG/DL 8.7-9.7 UNABLE TO DRAW BLOOD, REASON: CBNNOTIFIED PATIENT CARE STAFF: [facility] 12/24/192019 BY Kristen Henry [id number] 21:02:00 Test Item Value Reference Range Interpretation Comments MAGNESIUM (test code = MAG) MG/DL 1.6-2.3 UNABLE TO DRAW BLOOD, REASON: CBNNOTIFIED PATIENT CARE STAFF: [facility] 12/24/192019 BY Kristen Henry AnHGB [id number] 20:48:00 Test Item Value Reference Range Interpretation Comments HEMOGLOBIN (test code = HGB) 8.2 G/DL 11.2-14.9 L HEMATOCRIT (test code = HCT) 24.2 % 33.2-43.5 L UNABLE TO DRAW BLOOD, REASON: CBNNOTIFIED PATIENT CARE STAFF: [facility] 12/24/192019 BY Kristen Henry AnGLUCOSE BEDSIDE [id number] 20:27:00 Test Item Value Reference Range Interpretation Comments GLUCOSE BEDSIDE TESTING (test code 139 MG/DL 60-99 H = GLUBED) VANCOMYCIN [id number] 16:07:00 Test Item Value Reference Range Interpretation Comments VANCOMYCIN TROUGH (test code = 15.9 UG/ML 10.0-20.0 N VANCT) UNABLE TO DRAW BLOOD, REASON: CBNNOTIFIED PATIENT CARE STAFF: [facility] 12/24/19 AT 1519 BY Kristen Henry AnARTERIAL BLOOD [id number] 15:59:00 Test Item Value Reference Range Interpretation [...] FIO2 (test code = 35 % COHBGFFIO2) PaO2/[id number] 15:59:00 Test Item Value Reference Range Interpretation Comments PaO2/FiO2 (test code = IHS8UIO4) mm/Hg ARTERIAL BLOOD [id number] 15:59:00 Test Item Value Reference Range Interpretation [...] FIO2 (test code = 35 % COHBGFFIO2) PaO2/[id number] 15:59:00 Test Item Value Reference Range Interpretation Comments PaO2/FiO2 (test code = AHT7VVT4) 298.28 mm/Hg PTT [id number] 15:58:00 Test Item Value Reference Range Interpretation Comments PTT ACTIVATED (test code = APTT) 39.0 SECONDS 25.1-36.5 H UNABLE TO DRAW BLOOD, REASON: CBNNOTIFIED PATIENT CARE STAFF: [facility] 12/24/19 AT [facility]9 BY Kristen Henry AnHGB [id number] 15:41:00 Test Item Value Reference Range Interpretation Comments HEMOGLOBIN (test code = HGB) 8.2 G/DL 11.2-14.9 L HEMATOCRIT (test code = HCT) 24.6 % 33.2-43.5 L UNABLE TO DRAW BLOOD, REASON: CBNNOTIFIED PATIENT CARE STAFF: [facility] 12/24/19 AT [facility] BY Kristen Henry AnARTERIAL BLOOD [id number] 13:00:00 Test Item Value Reference Range Interpretation [...] FIO2 (test code = COHBGFFIO2) 35 % PaO2/[id number] 13:00:00 Test Item Value Reference Range Interpretation Comments PaO2/FiO2 (test code = EUL3XYS8) mm/Hg ARTERIAL BLOOD [id number] 13:00:00 Test Item Value Reference Range Interpretation [...] FIO2 (test code = COHBGFFIO2) 35 % PaO2/[id number] 13:00:00 Test Item Value Reference Range Interpretation Comments PaO2/FiO2 (test code = JTA6OBB9) 318.57 mm/Hg HGB [id number] 12:52:00 Test Item Value Reference Range Interpretation Comments HEMOGLOBIN (test code = HGB) 8.3 G/DL 11.2-14.9 L HEMATOCRIT (test code = HCT) 25.1 % 33.2-43.5 L ARTERIAL BLOOD [id number] 09:55:00 Test Item Value Reference Range Interpretation Comments ARTERIAL BLOOD GAS PH (test code 7.41 mmHg 7.35-7.45 N = PHA) ARTERIAL BLOOD GAS PCO2 (test 37.5 mmHg 35.0-45.0 N code = PCO2A) ARTERIAL BLOOD GAS PO2 (test 111.5 mmol/L 80.0-100.0 H code = PO2A) BICARBONATE TOTAL HCO3 (test 23.3 mmol/L 20.0-26.0 N code = HCO3) BASE EXCESS (test code = STEEVN) -1.1 mmol/L -3.0-3.0 N ABG O2 SATURATION [...] code = 0.3 % 0.4-1.5 L METHGB) PaO2/[id number] 09:55:00 Test Item Value Reference Range Interpretation Comments PaO2/FiO2 (test code = KXX8XSC1) mm/Hg ARTERIAL BLOOD [id number] 09:55:00 Test Item Value Reference Range Interpretation [...] code = 0.3 % 0.4-1.5 L METHGB) PaO2/[id number] 09:55:00 Test Item Value Reference Range Interpretation Comments PaO2/FiO2 (test code = TUX3COQ5) 318.57 mm/Hg [id number] 09:53:00 Test Item Value Reference Range Interpretation Comments PHOSPHOROUS (test code = PHOS) 3.7 MG/DL 2.5-4.5 N [id number] 09:53:00 Test Item Value Reference Range Interpretation Comments MAGNESIUM (test code = MAG) 1.5 MG/DL 1.6-2.3 L LACTIC [id number] 09:12:00 Test Item Value Reference Range Interpretation Comments LACTIC ACID (test code = LACT) 1.5 MMOL/L 0.7-2.1 N HGB [id number] 08:55:00 Test Item Value Reference Range Interpretation Comments HEMOGLOBIN (test code = HGB) 8.5 G/DL 11.2-14.9 L HEMATOCRIT (test code = HCT) 25.3 % 33.2-43.5 L CBC W/O [id number] 07:59:00 Test Item Value Reference Range Interpretation Comments WHITE BLOOD CELL (test 33.9 K/MM3 3.8-9.8 HH MAYNARDMyrna HERNANDEZ M code = WBC) & READBACK ON 12/24/19 AT 052 6 BY [employer],Chest er RED BLOOD CELL (test 3.02 M/MM3 [...] K/mm3 0.0-0.1 N code = NRBC#) DIFFERENTIAL [id number] 07:59:00 Test Item Value Reference Range Interpretation Comments RBC MORPHOLOGY REQUIRED (test code = NORMAL RBCM) POIKILOCYTOSIS (test code = POIK) FEW NONE GIAN CELLS (test code = GIAN) FEW NONE PLATELET ESTIMATE (test code = ADEQUATE ADEQUATE PLTEST) PLATELET MORPHOLOGY (test code = NORMAL NORMAL PLTMORPH) WBC [id number] 07:59:00 Test Item Value Reference Range Interpretation [...] 0-0 H code = NRBC) GLUCOSE BEDSIDE [id number] 07:55:00 Test Item Value Reference Range Interpretation Comments GLUCOSE BEDSIDE TESTING (test code 125 MG/DL 60-99 H = GLUBED) - XR CHEST [id number] 06:07:00 [facility] 1940 Sex: F Patient Name: JORGE A HORTA Unit No: [id number] EXAMS: CPT CODE: [id number] XR CHEST 1V [id number] Examination: One view chest x-ray Location code: [...] Yobani Elias, RT(R) Transcrpt Date/Tm/Trnsp: 12/24/2019 (0607) Dorys.VR5 Orig Print D/T: S: 12/24/2019 (0628) [facility] NAME: JORGE A HORTA [address] [address] PHYS: [place] [address] : 1940 AGE: 79 SEX: F LOC: Z.SI06 A PHONE #: [phone] EXAM DATE: 12/24/2019 STATUS: ADM IN FAX #: [phone] RADIOLOGY NO: PAGE 1 Signed Report COMPREHENSIVE METABOLIC [id number] 05:40:00 Test Item Value Reference Range Interpretation [...] N (test code = ALKP) COMPREHENSIVE METABOLIC [id number] 05:38:00 Test Item Value Reference Range Interpretation [...] UNITS/L 38-126 (test code = ALKP) LACTIC [id number] 05:38:00 Test Item Value Reference Range Interpretation Comments LACTIC ACID (test code = LACT) 2.1 MMOL/L 0.7-2.1 N COMPREHENSIVE METABOLIC [id number] 05:37:00 Test Item Value Reference Range Interpretation [...] code = UNITS/L 38-126 ALKP) COMPREHENSIVE METABOLIC [id number] 05:36:00 Test Item Value Reference Range Interpretation [...] (test code = UNITS/L 38-126 ALKP) PROTHROMBIN [id number] 05:32:00 Test Item Value Reference Range Interpretation [...] eric embolism. 3.0 - 4.5 CBC W/O [id number] 05:27:00 Test Item Value Reference Range Interpretation Comments WHITE BLOOD CELL (test 33.9 K/MM3 3.8-9.8 BERNABE HERNANDEZ M code = WBC) & READBACK ON 12/24/19 AT 052 6 BY Alfonzoo,Chest er RED BLOOD CELL (test 3.02 M/MM3 [...] K/mm3 0.0-0.1 N code = NRBC#) DIFFERENTIAL [id number] 05:27:00 Test Item Value Reference Range Interpretation Comments RBC MORPHOLOGY REQUIRED (test code = RBCM) PLATELET ESTIMATE (test code = PLTEST) ADEQUATE PLATELET MORPHOLOGY (test code = NORMAL PLTMORPH) WBC [id number] 05:27:00 Test Item Value Reference Range Interpretation Comments TOTAL CELLS COUNTED (test code = TCC) #CELLS SEGMENTED NEUTROPHILS (test code = % 36.2-73.8 SEG) LYMPHOCYTE (test code = LYMPH) % 12.9-45.1 MONOCYTE (test code = MON) % 0-11 CBC W/AUTO [id number] 05:27:00 Test Item Value Reference Range Interpretation Comments WHITE BLOOD CELL (test 33.9 K/MM3 3.8-9.8 HH ALEYDA D TO MARY M code = WBC) & READBACK ON 12/24/19 AT 052 6 BY Alfonzoo,Chest er RED BLOOD CELL (test 3.02 M/MM3 [...] K/mm3 0.0-0.1 N code = NRBC#) WBC [id number] 05:27:00 Test Item Value Reference Range Interpretation Comments RBC MORPHOLOGY REQUIRED (test code = RBCM) TOTAL CELLS COUNTED (test code = TCC) #CELLS SEGMENTED NEUTROPHILS (test code = % 36.2-73.8 SEG) LYMPHOCYTE (test code = LYMPH) % 12.9-45.1 MONOCYTE (test code = MON) % 0-11 PLATELET ESTIMATE (test code = ADEQUATE PLTEST) PLATELET MORPHOLOGY (test code = NORMAL PLTMORPH) HGB [id number] 00:34:00 Test Item Value Reference Range Interpretation Comments HEMOGLOBIN (test code = HGB) 7.4 G/DL 11.2-14.9 L HEMATOCRIT (test code = HCT) 23.1 % 33.2-43.5 L LACTIC [id number] 00:28:00 Test Item Value Reference Range Interpretation Comments LACTIC ACID (test code = LACT) 2.2 MMOL/L 0.7-2.1 H GLUCOSE BEDSIDE [id number] 00:12:00 Test Item Value Reference Range Interpretation Comments GLUCOSE BEDSIDE TESTING (test code = 88 MG/DL 60-99 N GLUBED) GLUCOSE BEDSIDE [id number] 22:03:00 Test Item Value Reference Range Interpretation Comments GLUCOSE BEDSIDE TESTING (test code = 75 MG/DL 60-99 N GLUBED) LACTIC [id number] 18:59:00 Test Item Value Reference Range Interpretation Comments LACTIC ACID (test code = LACT) 2.7 MMOL/L 0.7-2.1 H UNABLE TO DRAW BLOOD, REASON: CBNNOTIFIED PATIENT CARE STAFF: [facility] 12/23/19 AT [facility] BY Kristen Henry AnGLUCOSE BEDSIDE [id number] 16:34:00 Test Item Value Reference Range Interpretation Comments GLUCOSE BEDSIDE TESTING (test code = 81 MG/DL 60-99 N GLUBED) LACTIC [id number] 16:07:00 Test Item Value Reference Range Interpretation Comments LACTIC ACID (test code = LACT) 2.8 MMOL/L 0.7-2.1 H UNABLE TO DRAW BLOOD, REASON: CBNNOTIFIED PATIENT CARE STAFF: [facility] 12/23/19 AT [facility] BY Kristen Henry [id number] 15:54:00 Test Item Value Reference Range Interpretation Comments HEMOGLOBIN (test code = HGB) 7.8 G/DL 11.2-14.9 L UNABLE TO DRAW BLOOD, REASON: CBNNOTIFIED PATIENT CARE STAFF: TREY 12/23/19 AT 1333 BY Kristen Henry [id number] 12:42:00 Test Item Value Reference Range Interpretation Comments HEMOGLOBIN (test code = HGB) 9.4 G/DL 11.2-14.9 L HEMATOCRIT (test code = HCT) 28.8 % 33.2-43.5 L BASIC METABOLIC [id number] 12:29:00 Test Item Value Reference Range Interpretation [...] code = 7.6 MG/DL 8.4-10.2 L CA) [id number] 12:29:00 Test Item Value Reference Range Interpretation Comments MAGNESIUM (test code = MAG) 1.4 MG/DL 1.6-2.3 L LACTIC [id number] 12:27:00 Test Item Value Reference Range Interpretation Comments LACTIC ACID (test code = LACT) 3.1 MMOL/L 0.7-2.1 H BASIC METABOLIC [id number] 12:27:00 Test Item Value Reference Range Interpretation [...] CALCIUM (test code = MG/DL 8.7-9.7 CA) [id number] 12:27:00 Test Item Value Reference Range Interpretation Comments MAGNESIUM (test code = MAG) MG/DL 1.6-2.3 BASIC METABOLIC [id number] 12:24:00 Test Item Value Reference Range Interpretation [...] CALCIUM (test code = CA) MG/DL 8.7-9.7 [id number] 12:24:00 Test Item Value Reference Range Interpretation Comments MAGNESIUM (test code = MAG) MG/DL 1.6-2.3 LACTIC [id number] 09:12:00 Test Item Value Reference Range Interpretation Comments LACTIC ACID (test code = LACT) 3.6 MMOL/L 0.7-2.1 H [id number] 09:05:00 Test Item Value Reference Range Interpretation Comments HEMOGLOBIN (test code = HGB) 10.9 G/DL 11.2-14.9 L - XR CHEST [id number] 06:04:00 [facility] 1940 Sex: F Patient Name: JORGE A HORTA Unit No: [id number] EXAMS: CPT CODE: [id number] XR CHEST 1V 42923 LOCATION: H43 EXAM: - XR CHEST 1V [...] (0604) t.SDR.NS15 Orig Print D/T: S: 12/23/2019(0707) [facility] NAME: JORGE A HORTA [address] PHYS: [place] [address] : 1940 AGE: 79 SEX: F LOC: Z.SI06 A PHONE #: [phone] EXAM DATE: 12/23/2019 STATUS: ADM IN FAX #: [phone] RADIOLOGY NO: PAGE 1 Signed ReportCBC W/AUTO [id number] 05:32:00 Test Item Value Reference Range Interpretation [...] 0.02 K/mm3 0.0-0.1 N NRBC#) COMPREHENSIVE METABOLIC [id number] 05:23:00 Test Item Value Reference Range Interpretation [...] 38-126 (test code = ALKP) COMPREHENSIVE METABOLIC [id number] 05:09:00 Test Item Value Reference Range Interpretation [...] code = UNITS/L 38-126 ALKP) COMPREHENSIVE METABOLIC [id number] 05:08:00 Test Item Value Reference Range Interpretation [...] (test code = UNITS/L 38-126 ALKP) LACTIC [id number] 05:04:00 Test Item Value Reference Range Interpretation Comments LACTIC ACID (test code = LACT) 3.8 MMOL/L 0.7-2.1 H PATIENT RECEIVING BLOODCBC W/AUTO [id number] 03:12:00 Test Item Value Reference Range Interpretation [...] K/mm3 0.0-0.1 N code = NRBC#) WBC [id number] 03:12:00 Test Item Value Reference Range Interpretation [...] (test code = NORMAL NORMAL PLTMORPH) PROTHROMBIN [id number] 00:01:00 Test Item Value Reference Range Interpretation [...] - 4.5 QNS AT 2318. SPOKE TO [employer]. LINE DRAWPTT [id number] 00:01:00 Test Item Value Reference Range Interpretation Comments PTT ACTIVATED (test code = APTT) 47.6 SECONDS 25.1-36.5 H QNS AT 2318. SPOKE TO [employer]. LINE [id number] 00:01:00 Test Item Value Reference Range Interpretation Comments FIBRINOGEN (test code = FIB) 181 mg/dL 200-393 L QNS AT 2318. SPOKE TO [employer]. LINE [id number] 00:01:00 Test Item Value Reference Range Interpretation Comments D-DIMER (test 07894 ng/mLFEU 0-499 H Negative Pre dictive Value [...] pr ocedures. QNS AT 2318. SPOKE TO [facility]. LINE DRAWARTERIAL BLOOD [id number] 23:52:00 Test Item Value Reference Range Interpretation [...] FIO2 (test code = COHBGFFIO2) 85 % PaO2/[id number] 23:52:00 Test Item Value Reference Range Interpretation Comments PaO2/FiO2 (test code = RIN3JFD9) mm/Hg ARTERIAL BLOOD [id number] 23:52:00 Test Item Value Reference Range Interpretation [...] FIO2 (test code = COHBGFFIO2) 85 % PaO2/[id number] 23:52:00 Test Item Value Reference Range Interpretation Comments PaO2/FiO2 (test code = VWC5DEA1) 99.88 mm/Hg BASIC METABOLIC [id number] 23:35:00 Test Item Value Reference Range Interpretation [...] CALCIUM (test code = MG/DL 8.7-9.7 CA) [id number] 23:35:00 Test Item Value Reference Range Interpretation Comments AMYLASE (test code = CAROLE) 89 UNITS/L 30-110 N [id number] 23:35:00 Test Item Value Reference Range Interpretation Comments LIPASE (test code = LIP) UNITS/L 23-300 [id number] 23:35:00 Test Item Value Reference Range Interpretation Comments MAGNESIUM (test code = MAG) MG/DL 1.6-2.3 BASIC METABOLIC [id number] 23:35:00 Test Item Value Reference Range Interpretation [...] code = 8.0 MG/DL 8.4-10.2 L CA) [id number] 23:35:00 Test Item Value Reference Range Interpretation Comments AMYLASE (test code = CAROLE) 89 UNITS/L 30-110 N [id number] 23:35:00 Test Item Value Reference Range Interpretation Comments LIPASE (test code = LIP) 39 UNITS/L 23-300 N [id number] 23:35:00 Test Item Value Reference Range Interpretation Comments MAGNESIUM (test code = MAG) 1.4 MG/DL 1.6-2.3 L LACTIC [id number] 23:32:00 Test Item Value Reference Range Interpretation Comments LACTIC ACID (test code = LACT) 2.6 MMOL/L 0.7-2.1 H BASIC METABOLIC [id number] 23:31:00 Test Item Value Reference Range Interpretation [...] CALCIUM (test code = CA) MG/DL 8.7-9.7 [id number] 23:31:00 Test Item Value Reference Range Interpretation Comments AMYLASE (test code = CAROLE) UNITS/L 30-110 [id number] 23:31:00 Test Item Value Reference Range Interpretation Comments LIPASE (test code = LIP) UNITS/L 23-300 [id number] 23:31:00 Test Item Value Reference Range Interpretation Comments MAGNESIUM (test code = MAG) MG/DL 1.6-2.3 CBC W/AUTO [id number] 23:28:00 Test Item Value Reference Range Interpretation [...] K/mm3 0.0-0.1 N code = NRBC#) DIFFERENTIAL [id number] 23:28:00 Test Item Value Reference Range Interpretation Comments RBC MORPHOLOGY REQUIRED (test code = RBCM) PLATELET ESTIMATE (test code = PLTEST) ADEQUATE PLATELET MORPHOLOGY (test code = NORMAL PLTMORPH) CBC W/AUTO [id number] 23:28:00 Test Item Value Reference Range Interpretation [...] K/mm3 0.0-0.1 N code = NRBC#) DIFFERENTIAL [id number] 23:28:00 Test Item Value Reference Range Interpretation Comments RBC MORPHOLOGY REQUIRED (test code = RBCM) PLATELET ESTIMATE (test code = PLTEST) ADEQUATE PLATELET MORPHOLOGY (test code = NORMAL PLTMORPH) PLATELET [id number] 23:14:00 Test Item Value Reference Range Interpretation Comments PLATELET COUNT TEST NOT PERFORMED 129-368 SEE CBC REPORT (test code = PLT) K/MM3 - XR CHEST [id number] 23:02:00 [facility] 1940 Sex: F Patient Name: JORGE A HORTA Unit No: [id number] EXAMS: CPT CODE: [id number] XR CHEST 1V 13194 AFTER HOURS SERVICE ON: 12/22/2019 11:01 PM [...] AuraMA50 Orig Print D/T: S: 12/22/2019 (2305) [facility] NAME: JORGE A HORTA [address] PHYS: [place] [address] : 1940 AGE: 79 SEX: F LOC: Z.SI06 A PHONE #: [phone] EXAM DATE: 12/22/2019 STATUS: ADM IN FAX #: [phone] RADIOLOGY NO: PAGE 1 Signed ReportARTERIAL BLOOD [id number] 22:53:00 Test Item Value Reference Range Interpretation [...] SATA) report to and readback by by RAFAT.D at 12/22/2019 10:5 2:56 PM ABG DELIVERY (test AMBU code = [place]) ABG TEMPERATURE (test 37.0 C >37 code = TEMPA) ABG SITE (test code = AL SITEA) ALLENS TEST (test code NA CHECK = ALLENS) FIO2 (test code = 100 % COHBGFFIO2) PaO2/[id number] 22:53:00 Test Item Value Reference Range Interpretation Comments PaO2/FiO2 (test code = PRW2KCD5) mm/Hg ARTERIAL BLOOD [id number] 22:53:00 Test Item Value Reference Range Interpretation [...] FIO2 (test code = 100 % COHBGFFIO2) PaO2/[id number] 22:53:00 Test Item Value Reference Range Interpretation Comments PaO2/FiO2 (test code = SPM4YDF3) 160.40 mm/Hg BASIC METABOLIC [id number] 19:39:00 Test Item Value Reference Range Interpretation [...] 7.4 MG/DL 8.4-10.2 L CA) Comments to Human Factors Engineer: USE BLOOD RECENTLY COLLECTED PLEASEIs this a LINE draw? NBASIC METABOLIC [id number] 19:38:00 Test Item Value Reference Range Interpretation [...] code = MG/DL 8.7-9.7 CA) Comments to Human Factors Engineer: USE BLOOD RECENTLY COLLECTED PLEASEIs this a LINE draw? NBASIC METABOLIC [id number] 19:36:00 Test Item Value Reference Range Interpretation [...] code = CA) MG/DL 8.7-9.7 Comments to Human Factors Engineer: USE BLOOD RECENTLY COLLECTED PLEASEIs this a LINE draw? NPROTHROMBIN [id number] 19:22:00 Test Item Value Reference Range Interpretation [...] eric embolism. 3.0 - 4.5 Comments to Human Factors Engineer: USE BLOOD RECENTLY COLLECTED PLEASE PELASEPTT [id number] 19:22:00 Test Item Value Reference Range Interpretation Comments PTT ACTIVATED (test code = APTT) 28.4 SECONDS 25.1-36.5 N Comments to Human Factors Engineer: USE BLOOD RECENTLY COLLECTED PLEASE PELASEHGB [id number] 18:56:00 Test Item Value Reference Range Interpretation Comments HEMOGLOBIN (test code = HGB) 8.8 G/DL 11.2-14.9 L HEMATOCRIT (test code = HCT) 27.5 % 33.2-43.5 L GLUCOSE BEDSIDE [id number] 17:38:00 Test Item Value Reference Range Interpretation Comments GLUCOSE BEDSIDE TESTING (test code = 86 MG/DL 60-99 N GLUBED) HGB [id number] 14:37:00 Test Item Value Reference Range Interpretation Comments HEMOGLOBIN (test code = HGB) 9.3 G/DL 11.2-14.9 L HEMATOCRIT (test code = HCT) 29.2 % 33.2-43.5 L GLUCOSE BEDSIDE [id number] 12:04:00 Test Item Value Reference Range Interpretation Comments GLUCOSE BEDSIDE TESTING (test code = 88 MG/DL 60-99 N GLUBED) COMPREHENSIVE METABOLIC [id number] 07:26:00 Test Item Value Reference Range Interpretation [...] N (test code = ALKP) COMPREHENSIVE METABOLIC [id number] 07:25:00 Test Item Value Reference Range Interpretation [...] N (test code = ALKP) COMPREHENSIVE METABOLIC [id number] 07:23:00 Test Item Value Reference Range Interpretation [...] code = UNITS/L 38-126 ALKP) COMPREHENSIVE METABOLIC [id number] 07:22:00 Test Item Value Reference Range Interpretation [...] code = UNITS/L 38-126 ALKP) GLUCOSE BEDSIDE [id number] 07:16:00 Test Item Value Reference Range Interpretation Comments GLUCOSE BEDSIDE TESTING (test code = 96 MG/DL 60-99 N GLUBED) PROTHROMBIN [id number] 07:04:00 Test Item Value Reference Range Interpretation [...] syste eric embolism. 3.0 - 4.5 PTT [id number] 07:04:00 Test Item Value Reference Range Interpretation Comments PTT ACTIVATED (test code = APTT) 30.5 SECONDS 25.1-36.5 N CBC W/AUTO [id number] 06:46:00 Test Item Value Reference Range Interpretation [...] 0.00 K/mm3 0.0-0.1 N NRBC#) GLUCOSE BEDSIDE [id number] 00:11:00 Test Item Value Reference Range Interpretation Comments GLUCOSE BEDSIDE TESTING (test code = 98 MG/DL 60-99 N GLUBED) PROTHROMBIN [id number] 23:41:00 Test Item Value Reference Range Interpretation [...] syste eric embolism. 3.0 - 4.5 PTT [id number] 23:41:00 Test Item Value Reference Range Interpretation Comments PTT ACTIVATED (test code = APTT) 25.2 SECONDS 25.1-36.5 N BASIC METABOLIC [id number] 23:39:00 Test Item Value Reference Range Interpretation [...] 7.4 MG/DL 8.4-10.2 L CA) BASIC METABOLIC [id number] 23:36:00 Test Item Value Reference Range Interpretation [...] code = CA) MG/DL 8.7-9.7 CBC W/AUTO [id number] 23:29:00 Test Item Value Reference Range Interpretation [...] 0.00 K/mm3 0.0-0.1 N NRBC#) GLUCOSE BEDSIDE [id number] 20:24:00 Test Item Value Reference Range Interpretation Comments GLUCOSE BEDSIDE TESTING (test code 106 MG/DL 60-99 H = GLUBED) - XR CHEST [id number] 19:08:00 [facility] 1940 Sex: F Patient Name: JORGE A HORTA Unit No: [id number] EXAMS: CPT CODE: [id number] XR CHEST 1V 98657 REASON FOR EXAM: Coronary artery disease. COMPARISON: [...] possibly early pneumonia/atelectasis with effusion component. Location: U19 at 1908 Reported and signed by: DONNA AMIN M.D. CC: Ramu Sutherland MD; Rashid Son MD; Reuben Conner Technologist: Diana Quintana (RT) Transcrpt Date/Tm/Trnsp: 12/21/2019 (1907) AuraRCM1 Orig Print D/T: S: 12/21/2019 (1911) [facility] NAME: JORGE A HORTA [address] PHYS: [place] [address] : 1940 AGE: 79 SEX: F LOC: Z.SI06 A PHONE #: [phone] EXAM DATE: 12/21/2019 STATUS: ADM IN FAX #: [phone] RADIOLOGY NO: PAGE 1 Signed ReportGLUCOSE BEDSIDE [id number] 12:32:00 Test Item Value Reference Range Interpretation Comments GLUCOSE BEDSIDE TESTING (test code 130 MG/DL 60-99 H = GLUBED) GLUCOSE BEDSIDE [id number] 09:19:00 Test Item Value Reference Range Interpretation Comments GLUCOSE BEDSIDE TESTING (test code 143 MG/DL 60-99 H = GLUBED) COMPREHENSIVE METABOLIC [id number] 07:06:00 Test Item Value Reference Range Interpretation [...] H (test code = ALKP) COMPREHENSIVE METABOLIC [id number] 06:24:00 Test Item Value Reference Range Interpretation [...] 38-126 (test code = ALKP) COMPREHENSIVE METABOLIC [id number] 06:22:00 Test Item Value Reference Range Interpretation [...] (test code = UNITS/L 38-126 ALKP) PROTHROMBIN [id number] 06:21:00 Test Item Value Reference Range Interpretation [...] eric embolism. 3.0 - 4.5 COMPREHENSIVE METABOLIC [id number] 06:21:00 Test Item Value Reference Range Interpretation [...] code = UNITS/L 38-126 ALKP) CBC W/AUTO [id number] 06:11:00 Test Item Value Reference Range Interpretation [...] 0.00 K/mm3 0.0-0.1 N NRBC#) GLUCOSE BEDSIDE [id number] 21:01:00 Test Item Value Reference Range Interpretation Comments GLUCOSE BEDSIDE TESTING (test code 127 MG/DL 60-99 H = GLUBED) GLUCOSE BEDSIDE [id number] 16:02:00 Test Item Value Reference Range Interpretation Comments GLUCOSE BEDSIDE TESTING (test code 118 MG/DL 60-99 H = GLUBED) - NM ACUTE GI BLOOD [id number] 15:54:00 [facility] 1940 Sex: F Patient Name: JORGE A HORTA Unit No: [id number] EXAMS: CPT CODE: [id number] NM ACUTE GI BLOOD LOSS 41376 B2 EXAM: - NM ACUTE GI BLOOD [...] Technologist:José Miguel Lovell, RT(N) Transcrpt Date/Tm/Trnsp: 12/20/2019 (8394) tSHERRIR.[id number] Orig Print D/T: S: 12/20/2019 (9850) [facility] NAME: JORGE A HORTA [address] [address] PHYS: [place] [address] : 1940 AGE: 79 SEX: F LOC: Z.SI06 A PHONE #: [phone] EXAM DATE: 12/20/2019 STATUS: ADM IN FAX #: [phone] RADIOLOGY NO: PAGE 1 Signed ReportGLUCOSE BEDSIDE TESTING 2019-12-20 11:29:00 Test Item Value Reference Range Interpretation Comments GLUCOSE BEDSIDE TESTING (test code 148 MG/DL 60-99 H = GLUBED) GLUCOSE BEDSIDE [id number] 09:20:00 Test Item Value Reference Range Interpretation Comments GLUCOSE BEDSIDE TESTING (test code 152 MG/DL 60-99 H = GLUBED) BASIC METABOLIC [id number] 06:04:00 Test Item Value Reference Range Interpretation [...] 7.2 MG/DL 8.4-10.2 L CA) BASIC METABOLIC [id number] 06:03:00 Test Item Value Reference Range Interpretation [...] code = MG/DL 8.7-9.7 CA) BASIC METABOLIC [id number] 06:01:00 Test Item Value Reference Range Interpretation [...] code = CA) MG/DL 8.7-9.7 BASIC METABOLIC [id number] 06:00:00 Test Item Value Reference Range Interpretation [...] (test code = CA) MG/DL 8.7-9.7 PROTHROMBIN [id number] 06:00:00 Test Item Value Reference Range Interpretation [...] eric embolism. 3.0 - 4.5 CBC W/AUTO [id number] 05:53:00 Test Item Value Reference Range Interpretation [...] 0.00 K/mm3 0.0-0.1 N NRBC#) GLUCOSE BEDSIDE [id number] 20:57:00 Test Item Value Reference Range Interpretation Comments GLUCOSE BEDSIDE TESTING (test code 138 MG/DL 60-99 H = GLUBED) PROTHROMBIN [id number] 19:46:00 Test Item Value Reference Range Interpretation [...] NOTIFIED PATIENT CARE STAFF: MACK 12/19/19 AT 1837 BY Kristen Henry AnPTT [id number] 19:46:00 Test Item Value Reference Range Interpretation Comments PTT ACTIVATED (test code = APTT) 31.3 SECONDS 25.1-36.5 N UNABLE TO DRAW BLOOD, REASON: HARDSTICK NOTIFIED PATIENT CARE STAFF: MACK 12/19/19 AT 1837 BY Kristen Henry AnHGB [id number] 19:36:00 Test Item Value Reference Range Interpretation Comments HEMOGLOBIN (test code = HGB) 7.4 G/DL 11.2-14.9 L HEMATOCRIT (test code = HCT) 23.6 % 33.2-43.5 L Is this a LINE draw? NUNABLE TO DRAW BLOOD, REASON: HARDSTICKNOTIFIED PATIENT CARE STAFF: MACK 12/19/19 AT 1837 BY Kristen Henry AnGLUCOSE BEDSIDE [id number] 17:14:00 Test Item Value Reference Range Interpretation Comments GLUCOSE BEDSIDE TESTING (test code 127 MG/DL 60-99 H = GLUBED) GLUCOSE BEDSIDE [id number] 11:41:00 Test Item Value Reference Range Interpretation Comments GLUCOSE BEDSIDE TESTING (test code 125 MG/DL 60-99 H = GLUBED) BASIC METABOLIC [id number] 09:20:00 Test Item Value Reference Range Interpretation [...] 7.5 MG/DL 8.4-10.2 L CA) CBNBASIC METABOLIC [id number] 09:15:00 Test Item Value Reference Range Interpretation [...] code = MG/DL 8.7-9.7 CA) CBNBASIC METABOLIC [id number] 09:13:00 Test Item Value Reference Range Interpretation [...] code = CA) MG/DL 8.7-9.7 CBNBASIC METABOLIC [id number] 09:12:00 Test Item Value Reference Range Interpretation [...] (test code = CA) MG/DL 8.7-9.7 CBNPROTHROMBIN [id number] 09:09:00 Test Item Value Reference Range Interpretation [...] eric embolism. 3.0 - 4.5 CBNComments to Human Factors Engineer: WITH AM LABSCBC W/AUTO [id number] 08:57:00 Test Item Value Reference Range Interpretation [...] 0.00 K/mm3 0.0-0.1 N NRBC#) CBNGLUCOSE BEDSIDE [id number] 07:42:00 Test Item Value Reference Range Interpretation Comments GLUCOSE BEDSIDE TESTING (test code 122 MG/DL 60-99 H = GLUBED) GLUCOSE BEDSIDE [id number] 21:25:00 Test Item Value Reference Range Interpretation Comments GLUCOSE BEDSIDE TESTING (test code 115 MG/DL 60-99 H = GLUBED) GLUCOSE BEDSIDE [id number] 17:33:00 Test Item Value Reference Range Interpretation Comments GLUCOSE BEDSIDE TESTING (test code 104 MG/DL 60-99 H = GLUBED) C REACTIVE [id number] 15:42:00 Test Item Value Reference Range Interpretation Comments C REACTIVE PROTEIN (test code = 25.20 MG/DL 0.00-9.99 H CRP) - XR SMALL BOWEL/[id number] 12:46:00 [facility] 1940 Sex: F Patient Name: JORGE A HORTA Unit No: [id number] EXAMS: CPT CODE: [id number] XR SMALL BOWEL/ENTERO 55891 B2 EXAM: Small bowel series INDICATION: Prolonged [...] Ramu Sutherland MD; Georgina Smith MD Technologist: ANKUR Jalloh, RT(R) Transcrpt Date/Tm/Trnsp: 12/18/2019 (1246) AuraVB7 Orig Print D/T: S: 12/18/2019 (2561) [facility] NAME: JORGE A HORTA [address] [address] PHYS: JOSE.[place] [address] : 1940 AGE: 79 SEX: F : Z.SI06 A PHONE #: [phone] EXAM DATE: 12/18/2019 STATUS: ADM IN FAX #: [phone] RADIOLOGY NO: PAGE 1 Signed ReportGLUCOSE BEDSIDE [id number] 12:07:00 Test Item Value Reference Range Interpretation Comments GLUCOSE BEDSIDE TESTING (test code 101 MG/DL 60-99 H = GLUBED) SED [id number] 09:36:00 Test Item Value Reference Range Interpretation Comments SED RATE (test code = SEDW) 53 MM/HR 0-20 H GLUCOSE BEDSIDE [id number] 09:03:00 Test Item Value Reference Range Interpretation Comments GLUCOSE BEDSIDE TESTING (test code 113 MG/DL 60-99 H = GLUBED) BASIC METABOLIC [id number] 06:06:00 Test Item Value Reference Range Interpretation [...] 7.3 MG/DL 8.4-10.2 L CA) BASIC METABOLIC [id number] 06:00:00 Test Item Value Reference Range Interpretation [...] code = MG/DL 8.7-9.7 CA) BASIC METABOLIC [id number] 05:57:00 Test Item Value Reference Range Interpretation [...] (test code = CA) MG/DL 8.7-9.7 PROTHROMBIN [id number] 05:38:00 Test Item Value Reference Range Interpretation [...] eric embolism. 3.0 - 4.5 Comments to Human Factors Engineer: WITH AM LABSCB W/AUTO [id number] 05:29:00 Test Item Value Reference Range Interpretation [...] 0.00 K/mm3 0.0-0.1 N NRBC#) GLUCOSE BEDSIDE [id number] 20:19:00 Test Item Value Reference Range Interpretation Comments GLUCOSE BEDSIDE TESTING (test code 212 MG/DL 60-99 H = GLUBED) GLUCOSE BEDSIDE [id number] 17:34:00 Test Item Value Reference Range Interpretation Comments GLUCOSE BEDSIDE TESTING (test code 217 MG/DL 60-99 H = GLUBED) GLUCOSE BEDSIDE [id number] 13:00:00 Test Item Value Reference Range Interpretation Comments GLUCOSE BEDSIDE TESTING (test code 207 MG/DL 60-99 H = GLUBED) BASIC METABOLIC [id number] 05:59:00 Test Item Value Reference Range Interpretation [...] 7.1 MG/DL 8.4-10.2 L CA) BASIC METABOLIC [id number] 05:51:00 Test Item Value Reference Range Interpretation [...] code = MG/DL 8.7-9.7 CA) BASIC METABOLIC [id number] 05:49:00 Test Item Value Reference Range Interpretation [...] (test code = CA) MG/DL 8.7-9.7 PROTHROMBIN [id number] 05:34:00 Test Item Value Reference Range Interpretation [...] eric embolism. 3.0 - 4.5 CBC W/AUTO [id number] 05:16:00 Test Item Value Reference Range Interpretation [...] = 0.00 K/mm3 0.0-0.1 N NRBC#) PROTHROMBIN [id number] 06:34:00 Test Item Value Reference Range Interpretation [...] eric embolism. 3.0 - 4.5 BASIC METABOLIC [id number] 06:25:00 Test Item Value Reference Range Interpretation [...] 7.3 MG/DL 8.4-10.2 L CA) BASIC METABOLIC [id number] 06:22:00 Test Item Value Reference Range Interpretation [...] (test code = CA) MG/DL 8.7-9.7 LACTIC [id number] 06:19:00 Test Item Value Reference Range Interpretation Comments LACTIC ACID (test code = LACT) 0.8 MMOL/L 0.7-2.1 N CBC W/AUTO [id number] 06:02:00 Test Item Value Reference Range Interpretation [...] 0.00 K/mm3 0.0-0.1 N NRBC#) GLUCOSE BEDSIDE [id number] 10:01:00 Test Item Value Reference Range Interpretation Comments GLUCOSE BEDSIDE TESTING (test code = 96 MG/DL 60-99 N GLUBED) GLUCOSE BEDSIDE [id number] 09:16:00 Test Item Value Reference Range Interpretation Comments GLUCOSE BEDSIDE TESTING (test code = 58 MG/DL 60-99 L GLUBED) BASIC METABOLIC [id number] 06:07:00 Test Item Value Reference Range Interpretation [...] = 7.4 MG/DL 8.4-10.2 L CA) PROTHROMBIN [id number] 06:06:00 Test Item Value Reference Range Interpretation [...] eric embolism. 3.0 - 4.5 BASIC METABOLIC [id number] 06:01:00 Test Item Value Reference Range Interpretation [...] code = MG/DL 8.7-9.7 CA) BASIC METABOLIC [id number] 05:59:00 Test Item Value Reference Range Interpretation [...] code = CA) MG/DL 8.7-9.7 BASIC METABOLIC [id number] 05:58:00 Test Item Value Reference Range Interpretation [...] code = CA) MG/DL 8.7-9.7 CBC W/AUTO [id number] 05:51:00 Test Item Value Reference Range Interpretation [...] 0.00 K/mm3 0.0-0.1 N NRBC#) COMPREHENSIVE METABOLIC [id number] 06:04:00 Test Item Value Reference Range Interpretation [...] N (test code = ALKP) COMPREHENSIVE METABOLIC [id number] 05:59:00 Test Item Value Reference Range Interpretation [...] code = UNITS/L 38-126 ALKP) CBC W/AUTO [id number] 05:43:00 Test Item Value Reference Range Interpretation [...] code = 0.02 K/mm3 0.0-0.1 N NRBC#) [id number] 23:35:00 Test Item Value Reference Range Interpretation Comments HEMOGLOBIN (test code = HGB) 9.7 G/DL 11.2-14.9 L COMPREHENSIVE METABOLIC [id number] 20:53:00 Test Item Value Reference Range Interpretation [...] GREEN TOP WERE SENT AT 18:10COMPREHENSIVE METABOLIC [id number] 20:50:00 Test Item Value Reference Range Interpretation [...] GREEN TOP WERE SENT AT 18:10COMPREHENSIVE METABOLIC [id number] 20:48:00 Test Item Value Reference Range Interpretation [...] DRAW BLOOD, REASON: CBNNOTIFIED PATIENT CARE STAFF: [facility] 12/13/19 AT 1741 BY Kristen Henry NO GREEN TOP WERE SENT AT 18:10COMPREHENSIVE METABOLIC [id number] 20:47:00 Test Item Value Reference Range Interpretation [...] DRAW BLOOD, REASON: CBNNOTIFIED PATIENT CARE STAFF: [facility] 12/13/19 AT 1741 BY Kristen Henry [...] BY Kristen Henry An- XR ABDOMEN 1 [id number] 18:16:00 [facility] 1940 Sex: F Patient Name: JORGE A HORTA Unit No: [id number] EXAMS: CPT CODE: [id number] XR ABDOMEN 1 V 31443 Dictation location: H37. ABDOMEN, 1 VIEW HISTORY:GI Bleed FINDINGS: Since 12/12/19 there is continued distended organized loops of small bowel. Air is seen in the colon. IMPRESSION: Ileus versus partial small bowel obstruction. at 1816 Reported and signed by: Ann-Marie Lombardo MD CC: Tevin Samuels; Ramu Sutherland MD; Raji Jordan MD Technologist: Carolynn Rosario RT(R) Transcrpt Date/Tm/Trnsp: 12/13/2019 (1815) t.CARLAR.SP17 Orig Print D/T: S: 12/13/2019 (1819) [facility] NAME: JORGE A HORTA [address] PHYS: [id number] - [place] [address] : 1940 AGE: 79 SEX: F LOC: Z.SI06 A PHONE #: [phone] EXAM DATE: 12/13/2019 STATUS: ADM IN FAX #: [phone] RADIOLOGY NO: PAGE 1 Signed ReportLACTIC [id number] 10:38:00 Test Item Value Reference Range Interpretation Comments LACTIC ACID (test code = LACT) 1.4 MMOL/L 0.7-2.1 N PROTHROMBIN [id number] 06:13:00 Test Item Value Reference Range Interpretation [...] eric embolism. 3.0 - 4.5 Comments to Human Factors Engineer: WITH AM LABSCBC W/AUTO [id number] 06:07:00 Test Item Value Reference Range Interpretation [...] = 0.00 K/mm3 0.0-0.1 N NRBC#) DIFFERENTIAL [id number] 06:07:00 Test Item Value Reference Range Interpretation Comments RBC MORPHOLOGY REQUIRED (test code = RBCM) PLATELET ESTIMATE (test code = PLTEST) ADEQUATE PLATELET MORPHOLOGY (test code = NORMAL PLTMORPH) CBC W/AUTO [id number] 06:07:00 Test Item Value Reference Range Interpretation [...] = 0.00 K/mm3 0.0-0.1 N NRBC#) DIFFERENTIAL [id number] 06:07:00 Test Item Value Reference Range Interpretation Comments RBC MORPHOLOGY REQUIRED (test code = RBCM) PLATELET ESTIMATE (test code = PLTEST) ADEQUATE PLATELET MORPHOLOGY (test code = NORMAL PLTMORPH) - XR ABDOMEN 1 [id number] 11:55:00 [facility] : 1940 Sex: F Patient Name: JORGE A HORTA Unit No: [id number] EXAMS: CPT CODE: [id number] XR ABDOMEN 1 V 15830 EXAMINATION: - XR ABDOMEN 1 V. LOCATION: [...] Technologist: ANKUR Jalloh, RT(R) Transcrpt Date/Tm/Trnsp: 12/12/2019 (0465) t.SDR.PR7 Orig Print D/T: S: (5934) [facility] NAME: JORGE A HORTA [address] PHYS: [id number] Gail Salazar MD [address] [place] [address] : 1940 AGE: 79 SEX: F LOC: Z.SI06 A PHONE #: [phone] EXAM DATE: 12/12/2019 STATUS: ADM IN FAX #: [phone] RADIOLOGY NO: PAGE 1 Signed Report PROTHROMBIN [id number] 09:42:00 Test Item Value Reference Range Interpretation [...] eric embolism. 3.0 - 4.5 Comments to Human Factors Engineer: WITH AM LABS do at 0700CBC W/AUTO [id number] 09:36:00 Test Item Value Reference Range Interpretation [...] 0.0-0.1 N NRBC#) do at 0700BASI METABOLIC [id number] 05:56:00 Test Item Value Reference Range Interpretation [...] 8.0 MG/DL 8.4-10.2 L CA) BASIC METABOLIC [id number] 05:55:00 Test Item Value Reference Range Interpretation [...] code = MG/DL 8.7-9.7 CA) BASIC METABOLIC [id number] 05:53:00 Test Item Value Reference Range Interpretation [...] (test code = CA) MG/DL 8.7-9.7 PROTHROMBIN [id number] 05:23:00 Test Item Value Reference Range Interpretation [...] eric embolism. 3.0 - 4.5 Comments to Human Factors Engineer: .CBC W/AUTO [id number] 05:15:00 Test Item Value Reference Range Interpretation [...] 0.00 K/mm3 0.0-0.1 N NRBC#) BASIC METABOLIC [id number] 11:19:00 Test Item Value Reference Range Interpretation [...] 7.6 MG/DL 8.4-10.2 L CA) BASIC METABOLIC [id number] 11:18:00 Test Item Value Reference Range Interpretation [...] code = MG/DL 8.7-9.7 CA) BASIC METABOLIC [id number] 11:15:00 Test Item Value Reference Range Interpretation [...] code = CA) MG/DL 8.7-9.7 CBC W/AUTO [id number] 11:05:00 Test Item Value Reference Range Interpretation [...] = 0.00 K/mm3 0.0-0.1 N NRBC#) PROTHROMBIN [id number] 04:49:00 Test Item Value Reference Range Interpretation [...] eric embolism. 3.0 - 4.5 Comments to Human Factors Engineer: .URINALYSIS [id number] 17:50:00 Test Item Value Reference Range Interpretation [...] code = UACULT) SOURCE OF URINE: VOIDEDUA [id number] 17:50:00 Test Item Value Reference Range Interpretation Comments UA RBC (test code = RBCU) 0-3 RBC/HPF 0-3 UA WBC (test code = XWBCU) 3-5 WBC/HPF 0-5 UA EPITHELIAL CELLS (test code FEW EPI/HPF FEW = EPIU) UA BACTERIA (test code = MODERATE NONE A XBACU) UA YEAST (test code = YEASTU) MODERATE #/HPF NONE A SOURCE OF URINE: VOIDEDURINALYSIS [id number] 17:35:00 Test Item Value Reference Range Interpretation [...] Chk = UACULT) SOURCE OF URINE: VOIDEDUA [id number] 17:35:00 Test Item Value Reference Range Interpretation Comments UA RBC (test code = RBCU) RBC/HPF 0-3 UA WBC (test code = XWBCU) WBC/HPF 0-5 UA EPITHELIAL CELLS (test code = EPI/HPF FEW EPIU) UA BACTERIA (test code = XBACU) NONE SOURCE OF URINE: VOIDEDURINALYSIS [id number] 17:35:00 Test Item Value Reference Range Interpretation [...] Chk = UACULT) SOURCE OF URINE: VOIDEDUA [id number] 17:35:00 Test Item Value Reference Range Interpretation Comments UA RBC (test code = RBCU) RBC/HPF 0-3 UA WBC (test code = XWBCU) WBC/HPF 0-5 UA EPITHELIAL CELLS (test code = EPI/HPF FEW EPIU) UA BACTERIA (test code = XBACU) NONE SOURCE OF URINE: VOIDEDCBC W/AUTO [id number] 05:51:00 Test Item Value Reference Range Interpretation [...] 0-0 H code = NRBC) BASIC METABOLIC [id number] 05:30:00 Test Item Value Reference Range Interpretation [...] code = 7.6 MG/DL 8.4-10.2 L CA) [id number] 05:30:00 Test Item Value Reference Range Interpretation Comments MAGNESIUM (test code = MAG) 2.3 MG/DL 1.6-2.3 N BASIC METABOLIC [id number] 05:24:00 Test Item Value Reference Range Interpretation [...] CALCIUM (test code = MG/DL 8.7-9.7 CA) [id number] 05:24:00 Test Item Value Reference Range Interpretation Comments MAGNESIUM (test code = MAG) MG/DL 1.6-2.3 BASIC METABOLIC [id number] 05:22:00 Test Item Value Reference Range Interpretation [...] CALCIUM (test code = CA) MG/DL 8.7-9.7 [id number] 05:22:00 Test Item Value Reference Range Interpretation Comments MAGNESIUM (test code = MAG) MG/DL 1.6-2.3 BASIC METABOLIC [id number] 05:21:00 Test Item Value Reference Range Interpretation [...] CALCIUM (test code = CA) MG/DL 8.7-9.7 [id number] 05:21:00 Test Item Value Reference Range Interpretation Comments MAGNESIUM (test code = MAG) MG/DL 1.6-2.3 PROTHROMBIN [id number] 05:19:00 Test Item Value Reference Range Interpretation [...] eric embolism. 3.0 - 4.5 Comments to Human Factors Engineer: .CBC W/AUTO [id number] 05:10:00 Test Item Value Reference Range Interpretation [...] K/mm3 0.0-0.1 N NRBC#) - XR CHEST [id number] 14:16:00 [facility] 1940 Sex: F Patient Name: JORGE A HORTA Unit No: [id number] EXAMS: CPT CODE: [id number] XR CHEST 1V 34992 CHEST 1 VIEW CLINICAL INFORMATION: atelectasis COMPARISON: [...] Domi Cunningham, RT(R) Transcrpt Date/Tm/Trnsp: 12/08/2019 (1416) tSHANT.AM18 Orig Print D/T: S: 12/08/2019 (0101) [facility] NAME: JORGE A HORTA [address] PHYS: [place] [address] : 1940 AGE: 79 SEX: F LOC: Z.SI06 A PHONE #: [phone] EXAM DATE: 12/08/2019 STATUS: ADM IN FAX #: [phone] RADIOLOGY NO: PAGE 1 Signed ReportBASIC METABOLIC [id number] 10:18:00 Test Item Value Reference Range Interpretation [...] 7.6 MG/DL 8.4-10.2 L CA) BASIC METABOLIC [id number] 10:11:00 Test Item Value Reference Range Interpretation [...] (test code = MG/DL 8.7-9.7 CA) PROTHROMBIN [id number] 09:52:00 Test Item Value Reference Range Interpretation [...] eric embolism. 3.0 - 4.5 CBC W/AUTO [id number] 09:42:00 Test Item Value Reference Range Interpretation [...] = 0.05 K/mm3 0.0-0.1 N NRBC#) LACTIC [id number] 11:31:00 Test Item Value Reference Range Interpretation Comments LACTIC ACID (test code = LACT) 1.8 MMOL/L 0.7-2.1 N BASIC METABOLIC [id number] 05:33:00 Test Item Value Reference Range Interpretation [...] 7.7 MG/DL 8.4-10.2 L CA) BASIC METABOLIC [id number] 05:12:00 Test Item Value Reference Range Interpretation [...] code = MG/DL 8.7-9.7 CA) BASIC METABOLIC [id number] 05:09:00 Test Item Value Reference Range Interpretation [...] (test code = CA) MG/DL 8.7-9.7 PROTHROMBIN [id number] 04:51:00 Test Item Value Reference Range Interpretation Comments PROTHROMBIN TIME 47.9 SECONDS 9.4-12.5 HH CALLED TO Jose Bai PATIENT (test code = & READ BACK ON PTP) 12/07/19 AT 044 9 BY James Bean INTERNATIONAL NORMAL 4.3 HH CALLED TO Mary RATIO (test code = Matuto & READBACK [...] eric embolism. 3.0 - 4.5 Comments to Human Factors Engineer: .CBC W/AUTO [id number] 04:36:00 Test Item Value Reference Range Interpretation [...] = 0.02 K/mm3 0.0-0.1 N NRBC#) LACTIC [id number] 11:55:00 Test Item Value Reference Range Interpretation Comments LACTIC ACID (test code = LACT) 1.5 MMOL/L 0.7-2.1 N BASIC METABOLIC [id number] 10:02:00 Test Item Value Reference Range Interpretation [...] 7.6 MG/DL 8.4-10.2 L CA) BASIC METABOLIC [id number] 10:01:00 Test Item Value Reference Range Interpretation [...] code = MG/DL 8.7-9.7 CA) BASIC METABOLIC [id number] 10:00:00 Test Item Value Reference Range Interpretation [...] code = CA) MG/DL 8.7-9.7 BASIC METABOLIC [id number] 08:40:00 Test Item Value Reference Range Interpretation Comments SODIUM (test code = 132 MMOL/L 137-145 L NA) POTASSIUM (test TEST NOT PERFORMED 3.5-5.1 CALLED TO & code = K) MMOL/L READBACK ON 12/06/19 AT 083 9 Selin Coates olronnie CHLORIDE (test code 102 MMOL/L 98-107 N [...] CA) MG/DL RECOLLECTION NEEDED ON 12/06/19 AT 07 BY DALJIT: HEMOLYSISNOTIFIED PATIENT CARE STAFF: VERONICALACTIC [id number] 08:38:00 Test Item Value Reference Range Interpretation Comments LACTIC ACID (test code = LACT) 2.3 MMOL/L 0.7-2.1 H UNABLE TO DRAW BLOOD, REASON: CBNNOTIFIED PATIENT CARE STAFF: EDWARD 12/05/19 AT 2155 BY Kristen Henry RN.BASIC METABOLIC [id number] 08:35:00 Test Item Value Reference Range Interpretation [...] MG/DL 8.7-9.7 RECOLLECTION NEEDED ON 12/06/19 AT [facility] BY DALJIT: HEMOLYSISNOTIFIED PATIENT CARE STAFF: VERONICAPROTHROMBIN [id number] 08:21:00 Test Item Value Reference Range Interpretation [...] eric embolism. 3.0 - 4.5 Comments to Human Factors Engineer: .CBC W/AUTO [id number] 06:49:00 Test Item Value Reference Range Interpretation [...] = 0.00 K/mm3 0.0-0.1 N NRBC#) LACTIC [id number] 19:25:00 Test Item Value Reference Range Interpretation Comments LACTIC ACID (test code = LACT) 2.2 MMOL/L 0.7-2.1 H LACTIC [id number] 14:59:00 Test Item Value Reference Range Interpretation Comments LACTIC ACID (test code = LACT) 2.5 MMOL/L 0.7-2.1 H LACTIC [id number] 12:27:00 Test Item Value Reference Range Interpretation Comments LACTIC ACID (test code = LACT) 2.8 MMOL/L 0.7-2.1 H PROTHROMBIN [id number] 09:37:00 Test Item Value Reference Range Interpretation Comments PROTHROMBIN TIME 41.0 SECONDS 9.4-12.5 HH CALLED TO Richardson Bai PATIENT (test code = & GOLDB ACK ON PTP) 12/05/19 AT 093 3 BY Quan Rosario INTERNATIONAL NORMAL 3.7 HH CALLED TO DANIELA Bai RATIO (test code = & GOLDBAC K ON INR) 12/05/19 AT 093 3 [...] Zachery Kang IS A CBN DRAWComments to Human Factors Engineer: . BASIC METABOLIC [id number] 09:29:00 Test Item Value Reference Range Interpretation [...] BYZachery Kang IS A CBN DRAWBASIC METABOLIC [id number] 08:58:00 Test Item Value Reference Range Interpretation [...] PATIENT CARE STAFF: PIERRE 12/05/19 AT 0633 [facility] A CBN DRAWCBC W/AUTO [id number] 08:51:00 Test Item Value Reference Range Interpretation [...] PATIENT CARE STAFF: MYRIAM 12/05/19 AT 0630 [facility],Zachery IS A CBN DRAW- US ABDOMEN [id number] 18:50:00[facility] : 1940 Sex: F Patient Name: JORGE A HORTA Unit No: [id number] EXAMS: CPT CODE: [id number] US ABDOMEN COMPLETE 36284 EXAM: Abdominal ultrasound complete Location: H24 HISTORY: [...] Reported and signed by: Olayinka Weiner M.D. [facility] Dra NAME: JORGE A HORTAmond PHYS: [place] [address] : 1940 AGE: 79 SEX: F LOC: Z.SI06 A PHONE #: [phone] EXAM DATE: 12/04/2019 STATUS: ADM IN FAX #: [phone] RADIOLOGY NO: PAGE 1 Signed Report (CONTINUED) Patient Name: JORGE A HORAT Unit No: [id number] EXAMS: CPT CODE: [id number] US ABDOMEN COMPLETE 45444 <Continued> CC: Tevin Samuels; Ramu Sutherland MD Technologist: Citlaly Jones RDMS(AB) Transcrpt Date/Tm/Trnsp: 12/04/2019 (1849) tSHANT.AL7 Orig Print D/T: S: 12/04/2019 (1853) [facility] NAME: JORGE A HORTA[address] PHYS: [place] [address] : 1940 AGE: 79 SEX: F LOC: Z.SI06 A PHONE #: [phone] EXAM DATE: 12/04/2019 STATUS: ADM IN FAX #: [phone] RADIOLOGY NO: PAGE 2 Signed Report- CT ABD PELVIS [id number] 18:09:00 [facility] : 1940 Sex: F Patient Name: JORGE A HORTA Unit No: [id number] EXAMS: CPT CODE: [id number] CT ABD PELVIS W/CONT 99904 EXAM: - CT ABD PELVIS W/CONT Location: [...] within the abdominal aorta. No aneurysmal dilatation. [facility] NAME: EFREN [address]ORT[address] PHYS: [place] [address] : 1940 AGE: 79 SEX: F LOC: Z.SI06 A PHONE #: [phone] EXAM DATE: 12/04/2019 STATUS: ADM IN FAX #: [phone] RAD #: D/C DT PAGE 1 Signed Report (CONTINUED) Patient Name: JORGE A HORTA Unit No: [id number] EXAMS: CPT CODE: [id number] CT ABD PELVIS W/CONT 18612 <Continued> Lymph nodes:No adenopathy. Peritoneum/retroperitoneum: There is [...] Ramu Sutherland MD Technologist: Deonte Plata, RT(R); [employer] CTDI: DLP: Trnscrpt: 12/04/2019 (180) DoyleR.AL7 [facility] Dar NAME: JORGE A HORTA [address] PHYS: Donna Pino MD [place] [id number] : 1940 AGE: 79 SEX: F LOC: Z.SI06 A PHONE #: [phone] EXAM DATE: 12/04/2019 STATUS: ADM IN FAX #: [phone] RAD #: D/C DT PAGE 2 Signed Report Patient Name: JORGE A HORTA Unit No: [id number] EXAMS: CPT CODE: [id number] CT ABD PELVIS W/CONT 15471 <Continued> Orig Print D/T: S: 12/04/2019 (1811) [facility] Dar NAME: JORGE A HORTA [address] PHYS: [place] [address] : 1940 AGE: 79 SEX: FACCT NO: [id number] LOC: Z.SI06 A PHONE #: [phone] EXAM DATE: 12/04/2019 STATUS: ADM IN FAX #: [phone] RAD #: D/C DT PAGE 3 Signed ReportGLUCOSE BEDSIDE [id number] 17:09:00 Test Item Value Reference Range Interpretation Comments GLUCOSE BEDSIDE TESTING (test code 134 MG/DL 60-99 H = GLUBED) HEART [id number] 13:06:00 Test Item Value Reference Range Interpretation Comments HEART VALVE (test code = HEARTV) RUN DATE: 12/04/19 [facility] PAGE 1 RUN TIME: 1306 Specimen Inquiry RUN USER: INTERFACE PATIENT: JORGE A HORTA LOC: JEF U #: [id number] AGE/SX: 79/F [facility] RE[facility]/26[facility]19REG DR: Tevin Samuels MD : 38 BED: A DIS: STATUS: ADM IN TLOC: SPEC #: [id number]:COCHRAN:[id number] RECD: 12/01/19 STATUS: DEVORA REQ #: [id number] KEENAN: 11/30/[address]: Tevin Samuels MD ENTERED: 12/01/19 SP TYPE: HEARTV OTHR DR: Self Referred Home Bryant MD, Robert L MD Mikkilineni, Rajyalakshmi MD Pepper, Gregory S MD Sankaranarayanan, Venkataraj anORDERED: DECAL, SURG PATH LVL 4 CODES: P64997 - AORTIC VALVE, N K63692 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 [address] Home Bryant MD R[address] [place] [address] [place] [address] [facility] [address] [place] [address] Ramu Sutherland MD [address] [place] [address] [place], [place] [id number] [place] [address] [facility] [address] [place] [address] [place] [address] [place] [address] CONTINUED ON NEXT PAGE RUN DATE: 12/04/19 [facility] - [facility] PAGE 2 RUN TIME: 1306 Specimen Inquiry RUN USER: INTERFACE SPEC #: [id number]:COCHRAN:[id number] PATIENT: JORGE A HORTA #[id number] (Continued) PROCEDURES: DECAL (12/01/19) SURG PATH LVL 4 (12/01/19) TISSUES: A. AORTIC VALVE, NOS - AORTIC VALVE CPT CODES CPT CODE(S): 55439 , 93563 , , , , , FINAL DIAGNOSIS [...] atypical features. /bb Signed SIGNATURE ON FILE JoshuaJuan arana 12/04/19 1306 END OF REPORT COMPREHENSIVE METABOLIC [id number] 13:00:00 Test Item Value Reference Range Interpretation [...] 38-126 N (test code = ALKP) PROTHROMBIN [id number] 12:57:00 Test Item Value Reference Range Interpretation [...] eric embolism. 3.0 - 4.5 COMPREHENSIVE METABOLIC [id number] 12:55:00 Test Item Value Reference Range Interpretation [...] 38-126 (test code = ALKP) CBC W/AUTO [id number] 12:54:00 Test Item Value Reference Range Interpretation [...] 0.00 K/mm3 0.0-0.1 N NRBC#) COMPREHENSIVE METABOLIC [id number] 12:53:00 Test Item Value Reference Range Interpretation [...] code = UNITS/L 38-126 ALKP) GLUCOSE BEDSIDE [id number] 12:46:00 Test Item Value Reference Range Interpretation Comments GLUCOSE BEDSIDE TESTING 111 MG/DL 60-99 H Noti fied Nurse~ (test code = GLUBED) GLUCOSE BEDSIDE [id number] 10:31:00 Test Item Value Reference Range Interpretation Comments GLUCOSE BEDSIDE TESTING (test code 109 MG/DL 60-99 H = GLUBED) GLUCOSE BEDSIDE [id number] 10:31:00 Test Item Value Reference Range Interpretation Comments GLUCOSE BEDSIDE TESTING (test code 112 MG/DL 60-99 H = GLUBED) GLUCOSE BEDSIDE [id number] 10:31:00 Test Item Value Reference Range Interpretation Comments GLUCOSE BEDSIDE TESTING (test code 124 MG/DL 60-99 H = GLUBED) GLUCOSE BEDSIDE [id number] 10:30:00 Test Item Value Reference Range Interpretation Comments GLUCOSE BEDSIDE TESTING (test code 143 MG/DL 60-99 H = GLUBED) - XR CHEST [id number] 08:28:00 [facility] 1940 Sex: F Patient Name: JORGE A HORTA Unit No: [id number] EXAMS: CPT CODE: [id number] XR CHEST 1V 49928 B2 EXAM: - XR CHEST 1V HISTORY: [...] Yobani Elias, RT(R) Transcrpt Date/Tm/Trnsp: 12/04/2019 (0828) t.CARLAR.VB7 Orig Print D/T: S: 12/04/2019 (0831) [facility] NAME: JORGE A HORTA [address] PHYS: [place] [address] : 1940 AGE: 79 SEX: F LOC: Z.SI06 A PHONE #: [phone] EXAM DATE: 12/04/2019 STATUS: ADM IN FAX #: [phone] RADIOLOGY NO: PAGE 1 Signed ReportGLUCOSE BEDSIDE [id number] 08:00:00 Test Item Value Reference Range Interpretation Comments GLUCOSE BEDSIDE TESTING (test code 167 MG/DL 60-99 H = GLUBED) GLUCOSE BEDSIDE [id number] 20:26:00 Test Item Value Reference Range Interpretation Comments GLUCOSE BEDSIDE TESTING (test code 140 MG/DL 60-99 H = GLUBED) - XR CHEST [id number] 15:49:00 [facility] : 1940 Sex: F Patient Name: JORGE A HORTA Unit No: [id number] EXAMS: CPT CODE: [id number] XR CHEST 1V 79829 EXAM: - XR CHEST 1V CLINICAL HISTORY: [...] airspace opacity or large pneumothorax. Unchanged cardiomegaly. [id number] Reported and signed by: Jim Rosales MD CC: Tevin Samuels; Ramu Sutherland MD Technologist: Zoltan Low (RT) Transcrpt Date/Tm/Trnsp: 12/03/2019 (1126) t.SDR.JW22 Orig Print D/T: S: 12/03/2019 (1228) [facility] NAME: JORGE A HORTA [address] PHYS: [place] [address] : 1940 AGE: 79 SEX: F LOC: Z.SI06 A PHONE #: [phone] EXAM DATE: 12/03/2019 STATUS: ADM IN FAX #: [phone] RADIOLOGY NO: PAGE 1 Signed ReportGLUCOSE BEDSIDE [id number] 11:56:00 Test Item Value Reference Range Interpretation Comments GLUCOSE BEDSIDE TESTING (test code 160 MG/DL 60-99 H = GLUBED) - XR CHEST [id number] 06:30:00 [facility] : 1940 Sex: F Patient Name: JORGE A HORTA Unit No: [id number] EXAMS: CPT CODE: [id number] XR CHEST 1V 52772 Location of dictation: B2 Portable chest one [...] the lungs with no unfavorable changes. at 629 Reported and signed by: Ella Craft M.D.CC: Tevin Samuels; Ramu Sutherland MD Technologist: Yobani Elias, RT(R) Transcrpt Date/Tm/Trnsp: 12/03/2019 (629) t.CARLAR.PXC Orig Print D/T: S: 12/03/2019 (632) [facility] NAME: JORGE A HORTA [address] PHYS: [place] [address] : 1940 AGE: 79 SEX: F LOC: Z.SI06 A PHONE #: [phone] EXAM DATE: 12/03/2019 STATUS: ADM IN FAX #: [phone] RADIOLOGY NO: PAGE 1 Signed Report GLUCOSE BEDSIDE [id number] 21:37:00 Test Item Value Reference Range Interpretation Comments GLUCOSE BEDSIDE TESTING (test code 102 MG/DL 60-99 H = GLUBED) GLUCOSE BEDSIDE [id number] 17:38:00 Test Item Value Reference Range Interpretation Comments GLUCOSE BEDSIDE TESTING (test code 155 MG/DL 60-99 H = GLUBED) GLUCOSE BEDSIDE [id number] 12:02:00 Test Item Value Reference Range Interpretation Comments GLUCOSE BEDSIDE TESTING (test code 139 MG/DL 60-99 H = GLUBED) PROTHROMBIN [id number] 10:15:00 Test Item Value Reference Range Interpretation [...] STAFF: ON 12/02/19 AT 0715 BY Tolu LeggettLUCOSE BEDSIDE [id number] 08:05:00 Test Item Value Reference Range Interpretation Comments GLUCOSE BEDSIDE TESTING (test code 135 MG/DL 60-99 H = GLUBED) - XR CHEST [id number] 06:21:00 [facility] 1940 Sex: F Patient Name: JORGE A HORTA Unit No: [id number] EXAMS: CPT CODE: [id number] XR CHEST 1V 21310 HISTORY: Follow-up Location: C3 COMPARISON:12/01/2019 FINDINGS: 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 Endotracheal tube and nasogastric tube have been removed. Nelson- Laura catheter has been removed. No pneumothorax. Mild cardiomegaly persists. Perihilar and retrocardiac left basilar opacity persists. No other changes from prior study. IMPRESSION: 1. Interval extubation and interval removal of Nelson-Laura catheter. 2. No pneumothorax. No other changes from prior study. at 0621 Reported and signed by: Donna Foy MD CC: Tevin Samuels; Ramu Sutherland MD Technologist: Yobani Elias, RT(R) Transcrpt Date/Tm/Trnsp: 12/02/2019 (620) t.[email or web address] Orig Print D/T: S: 12/02/2019(06) [facility] NAME: JORGE A HORTA [id number] PHYS: [place] [address] : 1940 AGE: 79 SEX: F LOC: [id number].SI06 A PHONE #: [phone] EXAM DATE: 12/02/2019 STATUS: ADM IN FAX #: [phone] RADIOLOGY NO: PAGE 1 Signed ReportGLUCOSE BEDSIDE [id number] 19:57:00 Test Item Value Reference Range Interpretation Comments GLUCOSE BEDSIDE TESTING (test code 116 MG/DL 60-99 H = GLUBED) GLUCOSE BEDSIDE [id number] 18:10:00 Test Item Value Reference Range Interpretation Comments GLUCOSE BEDSIDE TESTING (test code 128 MG/DL 60-99 H = GLUBED) GLUCOSE BEDSIDE [id number] 17:09:00 Test Item Value Reference Range Interpretation Comments GLUCOSE BEDSIDE TESTING (test code 120 MG/DL 60-99 H = GLUBED) GLUCOSE BEDSIDE [id number] 15:48:00 Test Item Value Reference Range Interpretation Comments GLUCOSE BEDSIDE TESTING (test code 122 MG/DL 60-99 H = GLUBED) GLUCOSE BEDSIDE [id number] 14:09:00 Test Item Value Reference Range Interpretation Comments GLUCOSE BEDSIDE TESTING (test code 117 MG/DL 60-99 H = GLUBED) GLUCOSE BEDSIDE [id number] 13:23:00 Test Item Value Reference Range Interpretation Comments GLUCOSE BEDSIDE TESTING (test code 112 MG/DL 60-99 H = GLUBED) GLUCOSE BEDSIDE [id number] 12:26:00 Test Item Value Reference Range Interpretation Comments GLUCOSE BEDSIDE TESTING (test code 121 MG/DL 60-99 H = GLUBED) GLUCOSE BEDSIDE [id number] 11:12:00 Test Item Value Reference Range Interpretation Comments GLUCOSE BEDSIDE TESTING (test code 133 MG/DL 60-99 H = GLUBED) GLUCOSE BEDSIDE [id number] 10:24:00 Test Item Value Reference Range Interpretation Comments GLUCOSE BEDSIDE TESTING (test code 139 MG/DL 60-99 H = GLUBED) GLUCOSE BEDSIDE [id number] 09:26:00 Test Item Value Reference Range Interpretation Comments GLUCOSE BEDSIDE TESTING (test code 139 MG/DL 60-99 H = GLUBED) GLUCOSE BEDSIDE [id number] 08:31:00 Test Item Value Reference Range Interpretation Comments GLUCOSE BEDSIDE TESTING (test code 138 MG/DL 60-99 H = GLUBED) - XR CHEST [id number] 07:58:00 [facility] 1940 Sex: F Patient Name: JORGE A HORTA Unit No: [id number] EXAMS: CPT CODE: [id number] XR CHEST 1V 31671 B2 EXAM: - XR CHEST 1V HISTORY: S/P CABG COMPARISON: 11/30/2019 FINDINGS: Endotracheal tube, nasogastric tube, Nelson-Laura catheter and right subclavian central line in [...] Tevin Samuels; Ramu Sutherland MD Technologist: Leonie Moon RT(R) Transcrpt Date/Tm/Trnsp: 12/01/2019 (0758) AuraVB7 Orig Print D/T: S: 12/01/2019 (0801) [facility] [address] PHYS: [place] [address] : 1940 AGE: 79 SEX: F LOC: Z.SI06 A PHONE #: [phone] EXAM DATE: 12/01/2019 STATUS: ADM IN FAX #: [phone] RADIOLOGY NO: PAGE 1 Signed ReportGLUCOSE BEDSIDE [id number] 07:12:00 Test Item Value Reference Range Interpretation Comments GLUCOSE BEDSIDE TESTING (test code 137 MG/DL 60-99 H = GLUBED) GLUCOSE BEDSIDE [id number] 06:21:00 Test Item Value Reference Range Interpretation Comments GLUCOSE BEDSIDE TESTING (test code 141 MG/DL 60-99 H = GLUBED) GLUCOSE BEDSIDE [id number] 03:09:00 Test Item Value Reference Range Interpretation Comments GLUCOSE BEDSIDE TESTING (test code 158 MG/DL 60-99 H = GLUBED) GLUCOSE BEDSIDE [id number] 02:23:00 Test Item Value Reference Range Interpretation Comments GLUCOSE BEDSIDE TESTING (test code 149 MG/DL 60-99 H = GLUBED) GLUCOSE BEDSIDE [id number] 23:56:00 Test Item Value Reference Range Interpretation Comments GLUCOSE BEDSIDE TESTING (test code 171 MG/DL 60-99 H = GLUBED) GLUCOSE BEDSIDE [id number] 23:08:00 Test Item Value Reference Range Interpretation Comments GLUCOSE BEDSIDE TESTING (test code 163 MG/DL 60-99 H = GLUBED) GLUCOSE BEDSIDE [id number] 21:54:00 Test Item Value Reference Range Interpretation Comments GLUCOSE BEDSIDE TESTING (test code 164 MG/DL 60-99 H = GLUBED) BASIC METABOLIC [id number] 21:36:00 Test Item Value Reference Range Interpretation [...] code = 8.2 MG/DL 8.4-10.2 L CA) [id number] 21:36:00 Test Item Value Reference Range Interpretation Comments MAGNESIUM (test code = 6.7 MG/DL 1.6-2.3 BERNABE Carr& MAG) READBACK ON AT 2136 BY Dario Maria BASIC METABOLIC [id number] 21:33:00 Test Item Value Reference Range Interpretation [...] code = 8.2 MG/DL 8.4-10.2 L CA) [id number] 21:33:00 Test Item Value Reference Range Interpretation Comments MAGNESIUM (test code = MAG) MG/DL 1.6-2.3 PROTHROMBIN [id number] 21:31:00 Test Item Value Reference Range Interpretation [...] eric embolism. 3.0 - 4.5 Comments to Human Factors Engineer: PEDIATRIC TUBES!Comments to Human Factors Engineer: PEDIATRIC TUBESPTT [id number] 21:31:00 Test Item Value Reference Range Interpretation Comments PTT ACTIVATED (test code = APTT) 21.8 SECONDS 25.1-36.5 L Comments to Human Factors Engineer: PEDIATRIC TUBES!Comments to Human Factors Engineer: PEDIATRIC TUBESBASIC METABOLIC [id number] 21:30:00 Test Item Value Reference Range Interpretation [...] CALCIUM (test code = CA) MG/DL 8.7-9.7 [id number] 21:30:00 Test Item Value Reference Range Interpretation Comments MAGNESIUM (test code = MAG) MG/DL 1.6-2.3 CBC W/AUTO [id number] 21:24:00 Test Item Value Reference Range Interpretation [...] K/mm3 0.0-0.1 N NRBC#) - XR CHEST [id number] 20:54:00 [facility] 1940 Sex: F Patient Name: JORGE A HORTA Unit No: [id number] EXAMS: CPT CODE: [id number] XR CHEST 1V 81354 EXAM: - XR CHEST 1V LOCATION: C3 HISTORY: S/P CABG COMPARISON: 11/29/2019 FINDINGS: Single view of the chest. Right subclavian catheter tip overlies the cubital junction. Nelson-Laura catheter tip overlies main pulmonary trunk. Endotracheal [...] Clarita Webster (RT)(R) Transcrpt Date/Tm/Trnsp: 11/30/2019 (2053) AuraHV2 Orig Print D/T: S: 11/30/2019 (2056) [facility] NAME: JORGE A HORTA [address] PHYS: [place] [address] : 1940 AGE: 79 SEX: F LOC: Z.SI06 A PHONE #: [phone] EXAM DATE: 11/30/2019 STATUS: ADM IN FAX #: [phone] RADIOLOGY NO: PAGE 1 Signed ReportGLUCOSE BEDSIDE [id number] 20:17:00 Test Item Value Reference Range Interpretation Comments GLUCOSE BEDSIDE TESTING (test code 206 MG/DL 60-99 H = GLUBED) BASIC METABOLIC [id number] 19:45:00 Test Item Value Reference Range Interpretation [...] 7.7 MG/DL 8.4-10.2 L CA) BASIC METABOLIC [id number] 19:42:00 Test Item Value Reference Range Interpretation [...] (test code = MG/DL 8.7-9.7 CA) PROTHROMBIN [id number] 19:42:00 Test Item Value Reference Range Interpretation [...] syste eric embolism. 3.0 - 4.5 PTT [id number] 19:42:00 Test Item Value Reference Range Interpretation Comments PTT ACTIVATED (test code = APTT) 26.3 SECONDS 25.1-36.5 N BASIC METABOLIC [id number] 19:39:00 Test Item Value Reference Range Interpretation [...] code = CA) MG/DL 8.7-9.7 BASIC METABOLIC [id number] 19:38:00 Test Item Value Reference Range Interpretation [...] code = CA) MG/DL 8.7-9.7 CBC W/AUTO [id number] 19:32:00 Test Item Value Reference Range Interpretation [...] code = 0.00 K/mm3 0.0-0.1 N NRBC#) [id number] 18:06:00 Test Item Value Reference Range Interpretation Comments POTASSIUM (test code = K) 5.9 MMOL/L 3.5-5.1 H [id number] 18:06:00 Test Item Value Reference Range Interpretation Comments GLUCOSE (test code = GLU) 146 MG/DL 74-106 H [id number] 18:03:00 Test Item Value Reference Range Interpretation Comments POTASSIUM (test code = K) 5.9 MMOL/L 3.5-5.1 H [id number] 18:03:00 Test Item Value Reference Range Interpretation Comments GLUCOSE (test code = GLU) MG/DL 74-106 [id number] 17:57:00 Test Item Value Reference Range Interpretation Comments HEMOGLOBIN (test code = HGB) 7.2 G/DL 11.2-14.9 L [id number] 17:57:00 Test Item Value Reference Range Interpretation Comments HEMATOCRIT (test code = HCT) 22.9 % 33.2-43.5 L DIFFERENTIAL [id number] 17:03:00 Test Item Value Reference Range Interpretation Comments RBC MORPHOLOGY REQUIRED (test code = NORMAL RBCM) HYPERSEGMENTED POLYS (test code = FEW NONE HYPP) PLATELET ESTIMATE (test code = ADEQUATE ADEQUATE PLTEST) PLATELET MORPHOLOGY (test code = NORMAL NORMAL PLTMORPH) [id number] 17:03:00 Test Item Value Reference Range Interpretation Comments HEMOGLOBIN (test code = 4.5 G/DL 11.2-14.9 LL CALL ED TO TIFFANY Arana HGB) CREDIT CARD CONTROL CLERK & READBAC K ON 11/30/19 AT 162 5 BY Malachi Santamaria [id number] 17:03:00 Test Item Value Reference Range Interpretation Comments HEMATOCRIT (test code = 15.0 % 33.2-43.5 LL CALL ED TO FANCINA OR HCT) RN & READBACK O N 11/30/19 AT 162 5 BY Malachi Santamaria [id number] 16:36:00 Test Item Value Reference Range Interpretation Comments POTASSIUM (test code = K) MMOL/L 3.5-5.1 [id number] 16:36:00 Test Item Value Reference Range Interpretation Comments GLUCOSE (test code = GLU) 138 MG/DL 74-106 H [id number] 16:36:00 Test Item Value Reference Range Interpretation Comments POTASSIUM (test code = K) 5.0 MMOL/L 3.5-5.1 N [id number] 16:36:00 Test Item Value Reference Range Interpretation Comments GLUCOSE (test code = GLU) 138 MG/DL 74-106 H DIFFERENTIAL [id number] 16:28:00 Test Item Value Reference Range Interpretation Comments RBC MORPHOLOGY REQUIRED (test code = RBCM) PLATELET ESTIMATE (test code = PLTEST) ADEQUATE PLATELET MORPHOLOGY (test code = NORMAL PLTMORPH) [id number] 16:28:00 Test Item Value Reference Range Interpretation Comments HEMOGLOBIN (test code = 4.5 G/DL 11.2-14.9 LL CALL ED TO FANCINA B HGB) CREDIT CARD CONTROL CLERK & READMAOC K ON 11/30/19 AT 162 5 BY Malachi Santamaria [id number] 16:28:00 Test Item Value Reference Range Interpretation Comments HEMATOCRIT (test code = 15.0 % 33.2-43.5 LL CALL ED TO FANCINA OR HCT) RN & READBACK O N 11/30/19 AT 162 5 BY Malachi Santamaria DIFFERENTIAL [id number] 16:28:00 Test Item Value Reference Range Interpretation Comments RBC MORPHOLOGY REQUIRED (test code = RBCM) PLATELET ESTIMATE (test code = PLTEST) ADEQUATE PLATELET MORPHOLOGY (test code = NORMAL PLTMORPH) [id number] 16:28:00 Test Item Value Reference Range Interpretation Comments HEMOGLOBIN (test code = 4.5 G/DL 11.2-14.9 LL CALL ED TO FANCINA B HGB) CREDIT CARD CONTROL CLERK & READBAC K ON 11/30/19 AT 162 5 BY Malachi Santamaria [id number] 16:28:00 Test Item Value Reference Range Interpretation Comments HEMATOCRIT (test code = 15.0 % 33.2-43.5 LL CALL ED TO FANCINA OR HCT) RN & READBACK O N 11/30/19 AT 162 5 BY Malachi Santamaria BASIC METABOLIC [id number] 13:26:00 Test Item Value Reference Range Interpretation [...] CA) PLEASE CALL RESULTS TO PHONE #: [phone] [facility] METABOLIC [id number] 13:25:00 Test Item Value Reference Range Interpretation [...] CA) PLEASE CALL RESULTS TO PHONE #: [phone] [employer] METABOLIC [id number] 13:22:00 Test Item Value Reference Range Interpretation [...] 8.7-9.7 PLEASE CALL RESULTS TO PHONE #: [phone] [facility] METABOLIC [id number] 13:22:00 Test Item Value Reference Range Interpretation [...] 8.7-9.7 PLEASE CALL RESULTS TO PHONE #: [phone] [facility] W/AUTO [id number] 13:13:00 Test Item Value Reference Range Interpretation [...] NRBC#) PLEASE CALL RESULTS TO PHONE #: [phone] STATHIV 12 AB [id number] 18:12:00 Test Item Value Reference Range Interpretation Comments HIV 1 2 COMBO AG/AB SCREEN AB/AG NON REACTIVE NONREACTIVE (test code = [id number]) PROTHROMBIN [id number] 17:56:00 Test Item Value Reference Range Interpretation [...] syste eric embolism. 3.0 - 4.5 PTT [id number] 17:56:00 Test Item Value Reference Range Interpretation Comments PTT ACTIVATED (test code = APTT) 35.0 SECONDS 25.1-36.5 N PLT RESPONSE TO [id number] 17:56:00 Test Item Value Reference Range Interpretation [...] had fewer a dverse events. COMPREHENSIVE METABOLIC [id number] 17:40:00 Test Item Value Reference Range Interpretation [...] in the last 72 hours- XR CHEST [id number] 17:32:00[facility] : 1940 Sex: F Patient Name: JORGE A HORTA Unit No: [id number] EXAMS: CPT CODE: [id number] XR CHEST 1V 86791 EXAM: - XR CHEST 1V LOCATION: C3 [...] Zoltan Low (RT) Transcrpt Date/Tm/Trnsp: 11/29/2019 (173) t.[email or web address] Orig Print D/T: S: 11/29/2019 (173) [facility] NAME: JORGE A HORTA [address] PHYS: [place] [address] : 1940 AGE: 79 SEX: F LOC: Z.355 A PHONE #: [phone] EXAM DATE: 11/29/2019 STATUS: ADM IN FAX #: [phone] RADIOLOGY NO: PAGE 1 Signed ReportCOMPREHENSIVE METABOLIC [id number] 17:29:00 Test Item Value Reference Range Interpretation [...] done in the last 72 hoursCOMPREHENSIVE METABOLIC [id number] 17:28:00 Test Item Value Reference Range Interpretation [...] done in the last 72 hoursGLYCOSYLATED HEMOGLOBIN [id number] 17:27:00 Test Item Value Reference Range Interpretation [...] H (test code = MBG) COMPREHENSIVE METABOLIC [id number] 17:26:00 Test Item Value Reference Range Interpretation [...] done in the last 72 hoursCOMPREHENSIVE METABOLIC [id number] 17:25:00 Test Item Value Reference Range Interpretation [...] syste eric embolism. 3.0 - 4.5 PTT [id number] 17:24:00 Test Item Value Reference Range Interpretation Comments PTT ACTIVATED (test code = APTT) 35.0 SECONDS 25.1-36.5 N PLT RESPONSE TO [id number] 17:24:00 Test Item Value Reference Range Interpretation Comments PLT RESPONSE TO PLAVIX (test code = PRU 194-418 PLAVRES) CBC W/AUTO [id number] 17:14:00 Test Item Value Reference Range Interpretation [...] 112 MG/DL 60-99 H = GLUBED) T4 [id number] 17:37:00 Test Item Value Reference Range Interpretation Comments T4 FREE (test code = T4F) 1.3 NG/DL 0.78-2.19 N - CT ANGIO NECK W WO [id number] 17:37:00 [facility] : 1940 Sex: F Patient Name: JORGE A HORTA Unit No: [id number] EXAMS: CPT CODE: [id number] CT ANGIO [place]ECK W [place] CONT [address]132 Examination: CTA head and neck with contrast. [...] referable to the left posterior cerebral artery [facility] NAME: JORGE A HORTA [address] PHYS: [id number] - Ranjana Mcclelland MD [address] [place] [address] : 1940 AGE: 79 SEX: F LOC: Z.355 A PHONE #: [phone] EXAM DATE: 11/27/2019 STATUS: ADM IN FAX #: [phone] RAD #: D/C DT PAGE 1 Signed Report (CONTINUED) Patient Name: JORGE A HORTA Unit No: [id number] EXAMS: CPT CODE: [id number] CT ANGIO NECK [place] CONT [address]271 <Continued> circulation conventional angiography is recommended for further evaluation. 4. Otherwise unremarkable CTA examination of brain. at 1737 Reported and signed by: Anthony Boyer MD CC: Ramu Sutherland MD; Rashid Son MD; Ranjana Mcclelland MD Technologist: Ana Maria Tovar RT (R) (CT) CTDI: DLP: Trnscrpt: 11/27/2019 (1737) t.SDR.VR5 [facility] NAME: JORGE A HORTA PHYS: Ranjana Scott MD [address] [place] [address] : 1940 AGE: 79 SEX: F LOC: Z.355 A PHONE #: [phone] EXAM DATE: 11/27/2019 STATUS: ADM IN FAX #: [phone] RAD #: D/C DT PAGE 2 Signed Report Patient Name: JORGE A HORTA Unit No: [id number] EXAMS: CPT CODE: [id number] CT ANGIO NECK W [place] CONT [address]69 <Continued> Orig Print D/T: S: 11/27/2019 (1740) [facility] NAME: JORGE A HORTA PHYS: Ranjana Scott MD [address] [place] [address] : 1940 AGE: 79 SEX: F LOC: Z.355 A PHONE #: [phone] EXAM DATE: 11/27/2019 STATUS: ADM IN FAX #: [phone] RAD #: D/C DT PAGE 3 Signed Report- CT ANGIO [id number] 17:37:00 [facility] : 1940 Sex: F Patient Name: JORGE A HORTA Unit No: [id number] EXAMS: CPT CODE: [id number] CT ANGIO HEAD [address] Examination: CTA head and neck with contrast. Location code: [facility]. TECHNIQUE: Multiple axial images of the head [...] referable to the left posterior cerebral artery [facility] NAME: JORGE A HORTA PHYS: Ranjana Scott MD [place] [id number] : 1940 AGE: 79 SEX: F LOC: Z.355 A PHONE #: [phone] EXAM DATE: 11/27/2019 STATUS: ADM IN FAX #: [phone] RAD #: D/C DT PAGE 1 Signed Report (CONTINUED) Patient Name: JORGE A HORTA Unit No: [id number] EXAMS: CPT CODE: [id number] CT ANGIO HEAD [address] <Continued> circulation conventional angiography is recommended for further evaluation. 4. Otherwise unremarkable CTA examination of brain. at 1737 Reported and signed by: Anthony Boyer MD CC: Ramu Sutherland MD; Rashid Son MD; Ranjana Mcclelland MD Technologist: Ana Maria Tovar RT (R) (CT) CTDI: DLP: Trnscrpt: 11/27/2019 (1737) tSHERRIR.[email or web address] [facility] NAME: JORGE A HORTA PHYS: Ranjana Scott MD [place] [id number] : 1940 AGE: 79 SEX: F LOC: Z.355 A PHONE #: [phone] EXAM DATE: 11/27/2019 STATUS: ADM IN FAX #: [phone] RAD #: D/C DT PAGE 2 Signed Report Patient Name: JORGE A HORTA Unit No: [id number] EXAMS: CPT CODE: [id number] CT ANGIO HEAD [address] <Continued> Orig Print D/T: S: 11/27/2019 (1740) [facility] NAME: JORGE A HORTA [address] PHYS: Ranjana Scott MD [address] [address] : 1940 AGE: 79 SEX: F LOC: Z.355 A PHONE #: [phone] EXAM DATE: 11/27/2019 STATUS: ADM IN FAX #: [phone] RAD #: D/C DT PAGE 3 Signed ReportTSH REFLEX TO [id number] 17:02:00 Test Item Value Reference Range Interpretation Comments TSH REFLEX TO FT4 0.183 MIU/L 0.65-4.68 L Please be aware that (test code = bias results fo r TSH TSHREFLEX) may occur forpa tient who are taking Biotin supplements. C REACTIVE [id number] 16:34:00 Test Item Value Reference Range Interpretation Comments C REACTIVE PROTEIN (test code = 1.00 MG/DL 0.00-9.99 N CRP) - MRI BRAIN W/O [id number] 16:27:00 [facility] : 1940 Sex: F Patient Name: JORGE A HORTA Unit No: [id number] EXAMS: CPT CODE: [id number] MRI BRAIN W/O CONTRAST 91968 B2 - MRI BRAIN W/O CONTRAST HISTORY: [...] Technologist: Debby Ceja(CT)(MRI) Transcrpt Date/Tm/Trnsp: 11/27/2019 (1627) DoyleR.VB7 Orig Print D/T: S: 11/27/2019 (1630) [facility] NAME: JORGE A HORTA [address] PHYS: [place] [address] : 1940 AGE: 79 SEX: F LOC: Z.355 A PHONE #: [phone] EXAM DATE: 11/27/2019 STATUS: ADM IN FAX #: [phone] RADIOLOGY NO: PAGE 1 Signed ReportGLUCOSE BEDSIDE [id number] 16:17:00 Test Item Value Reference Range Interpretation Comments GLUCOSE BEDSIDE TESTING (test code 118 MG/DL 60-99 H = GLUBED) BASIC METABOLIC [id number] 06:33:00 Test Item Value Reference Range Interpretation [...] 0-189 mg/dL VERY HIGH...... ...>/= 190 mg/dL [id number] 06:33:00 Test Item Value Reference Range Interpretation Comments MAGNESIUM (test code = MAG) 2.0 MG/DL 1.6-2.3 N BASIC METABOLIC [id number] 06:22:00 Test Item Value Reference Range Interpretation [...] LDL (test MG/DL 0-99 code = LDL) [id number] 06:22:00 Test Item Value Reference Range Interpretation Comments MAGNESIUM (test code = MAG) 2.0 MG/DL 1.6-2.3 N BASIC METABOLIC [id number] 06:21:00 Test Item Value Reference Range Interpretation [...] LDL (test code = LDL) MG/DL 0-99 [id number] 06:21:00 Test Item Value Reference Range Interpretation Comments MAGNESIUM (test code = MAG) MG/DL 1.6-2.3 BASIC METABOLIC [id number] 06:18:00 Test Item Value Reference Range Interpretation [...] LDL (test code = LDL) MG/DL 0-99 [id number] 06:18:00 Test Item Value Reference Range Interpretation Comments MAGNESIUM (test code = MAG) MG/DL 1.6-2.3 GLYCOSYLATED HEMOGLOBIN [id number] 06:07:00 Test Item Value Reference Range Interpretation [...] 70-110 H (test code = MBG) PROTHROMBIN [id number] 06:03:00 Test Item Value Reference Range Interpretation [...] syste eric embolism. 3.0 - 4.5 PTT [id number] 06:03:00 Test Item Value Reference Range Interpretation Comments PTT ACTIVATED (test code = APTT) 29.9 SECONDS 25.1-36.5 N CBC W/AUTO [id number] 05:52:00 Test Item Value Reference Range Interpretation [...] 0.00 K/mm3 0.0-0.1 N NRBC#) B-TYPE NATRIURETIC [id number] 21:04:00 Test Item Value Reference Range Interpretation Comments B-TYPE NATRIURETIC PEPTIDE (test 205.0 PG/ML 0-100 H code = BNP) COMPREHENSIVE METABOLIC [id number] 21:03:00 Test Item Value Reference Range Interpretation [...] UNITS/L 38-126 N (test code = ALKP) [id number] 21:03:00 Test Item Value Reference Range Interpretation Comments TROPONIN-I (test code = TROPI) 0.043 NG/ML 0.012-0.033 H COMPREHENSIVE METABOLIC [id number] 20:53:00 Test Item Value Reference Range Interpretation [...] UNITS/L 38-126 N (test code = ALKP) [id number] 20:53:00 Test Item Value Reference Range Interpretation Comments TROPONIN-I (test code = TROPI) NG/ML 0.0-0.045 COMPREHENSIVE METABOLIC [id number] 20:52:00 Test Item Value Reference Range Interpretation [...] UNITS/L 38-126 N (test code = ALKP) [id number] 20:52:00 Test Item Value Reference Range Interpretation Comments TROPONIN-I (test code = TROPI) NG/ML 0.0-0.045 COMPREHENSIVE METABOLIC [id number] 20:51:00 Test Item Value Reference Range Interpretation [...] PHOSPHATASE UNITS/L 38-126 (test code = ALKP) [id number] 20:51:00 Test Item Value Reference Range Interpretation Comments TROPONIN-I (test code = TROPI) NG/ML 0.0-0.045 COMPREHENSIVE METABOLIC [id number] 20:49:00 Test Item Value Reference Range Interpretation [...] PHOSPHATASE (test code = UNITS/L 38-126 ALKP) [id number] 20:49:00 Test Item Value Reference Range Interpretation Comments TROPONIN-I (test code = TROPI) NG/ML 0.0-0.045 CBC W/AUTO [id number] 20:40:00 Test Item Value Reference Range Interpretation [...] 0.00 K/mm3 0.0-0.1 N NRBC#) ARTERIAL BLOOD [id number] 10:23:00 Test Item Value Reference Range Interpretation [...] FIO2 (test code = COHBGFFIO2) 21 % PaO2/[id number] 10:23:00 Test Item Value Reference Range Interpretation Comments PaO2/FiO2 (test code = VSY8TGY0) mm/Hg ARTERIAL BLOOD [id number] 10:23:00 Test Item Value Reference Range Interpretation [...] FIO2 (test code = COHBGFFIO2) 21 % PaO2/[id number] 10:23:00 Test Item Value Reference Range Interpretation Comments PaO2/FiO2 (test code = VEQ6UFS9) 380.00 mm/Hg VENOUS BLOOD [id number] 10:23:00 Test Item Value Reference Range Interpretation [...] (test code LINE = SITEV) BASIC METABOLIC [id number] 08:33:00 Test Item Value Reference Range Interpretation [...] 0-189 mg/dL VERY HIGH...... ...>/= 190 mg/dL [id number] 08:33:00 Test Item Value Reference Range Interpretation Comments MAGNESIUM (test code = MAG) 2.1 MG/DL 1.6-2.3 N BASIC METABOLIC [id number] 07:01:00 Test Item Value Reference Range Interpretation [...] LDL (test MG/DL 0-99 code = LDL) [id number] 07:01:00 Test Item Value Reference Range Interpretation Comments MAGNESIUM (test code = MAG) 2.1 MG/DL 1.6-2.3 N PROTHROMBIN [id number] 06:54:00 Test Item Value Reference Range Interpretation [...] syste eric embolism. 3.0 - 4.5 PTT [id number] 06:54:00 Test Item Value Reference Range Interpretation Comments PTT ACTIVATED (test code = APTT) 30.7 SECONDS 25.1-36.5 N CBC W/AUTO [id number] 06:43:00 Test Item Value Reference Range Interpretation [...] 0.0-0.1 N NRBC#) COVID 19 Asymptomatic IH [id number] 05:46:00 Test Item Value Reference Range Interpretation [...]
[2021-04-21] MEDS ORDERED: NA CHLORIDE 0.9% 500 ML ONE ×2 (02:16→03:29)
[2021-04-21 02:17] LABS: Arterial Blood Carboxyhemoglob 0.9 % (0-1.5); Blood Gas Oxyhemoglobin 97.4 % (94-97); Blood O2 Saturation 99.3 % (92-98.5)
[2021-04-21 02:21] LABS: Protime INR 2.31
[2021-04-21 02:23] LABS: Hematocrit 26.2 % (36.0-45.0); Lymphocytes % 37.1 % (15.3-44.8); RBC Red Blood Cell Count 2.77 M/uL (3.86-4.86)
[2021-04-21] MEDS ORDERED: Caclcium Chloride 10% INJ SYR IV ONE (02:31)
[2021-04-21] MEDS ORDERED: METOCLOPRAMIDE 10 MG/2mL INJ ONE (02:44)
[2021-04-21 02:54] LABS: Albumin 3.1 g/dL (3.4-5.0); Bilirubin Direct 0.2 mg/dL (0-0.2); Bilirubin Total 0.4 mg/dL (0.2-1.0); Magnesium 1.9 mg/dL (1.8-2.4); Protein, Total 7.5 g/dL (6.4-8.2)
[2021-04-21 02:55] LABS: Potassium 6.9 mmol/L (3.5-5.1); Troponin High Sensitivity 59.2 pg/mL (<58.9)
[2021-04-21] MEDS ORDERED: INSULIN -REGULAR HUMAN 50 UNIT/0.5 ML ML ONE (03:29)
[2021-04-21] MEDS ORDERED: SODIUM BICARB 50 MEQ/50ML VIAL ONE (03:29)
[2021-04-21] MEDS ORDERED: D10W 250 ML IV ONE (03:30)
[2021-04-21 03:45] LABS: SARS-COV-2 RT PCR NEGATIVE (NEGATIVE)
[2021-04-21] MEDS ORDERED: SOD POLYSTYREN SUL 15 GM/60 ML UCUP ONE (04:04)
[2021-04-21] MEDS ORDERED: PANTOPRAZOLE 40 MG INJ ONE (04:04)
[2021-04-21] MEDS ORDERED: NA CHLORIDE 0.9% 250 ML ONE (04:04)
--- NOTE | 2021-04-21 05:44 | ER ---
Nurse's Notes [facility] Name: Claudette Sherman Age: 80 yrs Sex: Female : 1940 Arrival Date: 04/21/2021 Time: 01:33 Bed 4 Private MD: Diagnosis: GI Bleed/ Gastrointestinal hemorrhage, unspecified;Hyperkalemia;Atrioventricular block, complete;Chronic kidney disease, unspecified Presentation: 04/21 01:34 Chief complaint: EMS states: son called 911 stating that pt has had nausea, vomiting lg3 and weakness starting today. on ems arrival at scene, HR 28. paced at 80 BMP on arrival. pt AAOX4 until 2.5mg versed administered in route. Coronavirus screen: Client denies travel out of the [place] in the last 14 days. At this time, the client does not indicate any symptoms associated with coronavirus-19. Ebola Screen: No symptoms or risks identified at this time. Initial Sepsis Screen: Does the patient meet any 2 criteria? No. Patient's initial sepsis screen is negative. Does the patient have a suspected source of infection? No. Patient's initial sepsis screen is negative. Risk Assessment: Do you want to hurt yourself or someone else? Patient reports no desire to harm self or others. Onset of symptoms was April 21, 2021. 01:34 Method Of Arrival: EMS: [facility] lg3 02:08 Acuity: LIZ 1 lg3 Triage Assessment: 01:41 General: Appears in no apparent distress. comfortable, Behavior is calm, cooperative, lg3 flat. Pain: Denies pain. EENT: No deficits noted. No signs and/or symptoms were reported regarding the EENT system. Neuro: Level of Consciousness is awake, confused, lethargic. Cardiovascular: Reports nausea, vomiting, Capillary refill < 3 seconds. Respiratory: No deficits noted. GI: Reports nausea, vomiting, previous colostomy noted to left side of abdomen. : No deficits noted. No signs and/or symptoms were reported regarding the genitourinary system. Derm: No deficits noted. No signs and/or symptoms reported regarding the dermatologic system. Skin is fragile, is thin, Skin is dry, Skin temperature is cool. Musculoskeletal: Circulation, motion, and sensation intact. Historical: - Allergies: 01:41 Codeine; lg3 01:41 Morphine; lg3 - Home Meds: 01:41 aspirin 81 mg Oral TbEC 1 tab once daily [Active]; atorvastatin 20 mg oral tab 1 tab lg3 once daily [Active]; ferrous sulfate 325 mg (65 mg iron) Oral tab [Active]; levothyroxine 125 mcg tab [Active]; warfarin 1 mg oral tab once daily [Active]; Imodium Multi-Symptom Relief 2-125 mg Oral tab 2 tab four times a day [Active]; metoprolol tartrate 25 mg Oral tab 1 tab once daily [Active]; megestrol 40 mg Oral tab 1 tab 4 times per day [Active]; venlafaxine 37.5 mg oral cp24 1 cap once daily [Active]; sodium bicarbonate 650 mg Oral tab 650 mg daily [Active]; losartan 100 mg oral tab once daily [Active]; Vitamin D Oral [Active]; amlodipine 2.5 mg tab 1 tab twice a day [Active]; 01:52 potassium citrate 10 mEq (1,080 mg) oral TbER 2 tabs twice a day [Active]; lg3 amiloride-hydrochlorothiazide 5-50 mg oral tab 1 tab once daily [Active]; - PMHx: 01:41 High Cholesterol; Hypertension; Hypothyroidism; open wound on middle abdomen; sacrum lg3 wound; Anemia; - PSHx: 01:41 Unable to Obtain; lg3 - Immunization history:: Adult Immunizations up to date, moderna X3. - Social history:: Smoking status: Patient denies any tobacco usage or history of. Patient/guardian denies using alcohol. Screenin:54 Abuse screen: Denies threats or abuse. Denies injuries from another. Nutritional lg3 screening: No deficits noted. Tuberculosis screening: No symptoms or risk factors identified. 04:47 Fall Risk IV access (20 points). Gait- Weak (10 pts.). Mental Status- sm5 Overestimates/Forgets Limitations (15 pts.). Total Bowman Fall Scale indicates High Risk Score (45 or more points). Fall prevention measures have been instituted. Side Rails Up X 2 Placed Close to Nursing Station Frequent Obs/Assessments Occuring Family Present and informed to notify staff if the need to leave the bedside. Assessment: 02:15 General: Appears in no apparent distress. Behavior is drowsy. Neuro: Level of sm5 Consciousness is awake. Cardiovascular: Capillary refill < 3 seconds Rhythm is third degree AV block, being externally paced at 8bpm. GI: Abdomen is flat, non-distended, Reports diarrhea, nausea, vomiting. Vital Signs: 01:34 BP 108 / 65; Pulse 80; Temp 97.2(TE); Pulse Ox 96% on 8 lpm NC; lg3 02:24 BP 90 / 32; Pulse 80; Resp 23; Pulse Ox 96% on NC; sm5 03:55 Weight 53.52 kg; sm5 04:20 BP 132 / 64; Pulse 80; Resp 23; Pulse Ox 97% on NC; sm5 05:57 BP 132 / 54; Pulse 80; Resp 21; Pulse Ox 94% on NC; sm5 07:45 BP 110 / 60; Pulse 80; Resp 23 S; Pulse Ox 99% on 4 lpm NC; jg9 ED Course: 01:33 Patient arrived in ED. wm 01:37 Giancarlo Hodge MD is Attending Physician. mh7 01:41 Triage completed. lg3 01:55 Malka Ernandez, DANILO is Primary Nurse. sm5 02:09 XRAY Chest (1 view) In Process Unspecified. EDMS 02:09 Troponin HS Sent. sm5 02:09 PT-INR Sent. sm5 02:09 NT PRO-BNP Sent. sm5 02:09 Magnesium Sent. sm5 02:09 LFT's Sent. sm5 02:09 CBC with Diff Sent. sm5 02:09 Basic Metabolic Panel Sent. sm5 02:10 Lipase Sent. sm5 02:10 Basic Metabolic Panel Sent. sm5 02:10 Type And Screen Sent. sm5 02:10 Inserted saline lock: 20 gauge in right antecubital area, using aseptic technique. sm5 Blood collected. 02:11 Maintain EMS IV. Dressing intact. Site clean \\T\\ dry. Gauge \\T\\ site: 20 L AC. sm 5 02:23 COVID-19/FLU A+B/RSV (Document "Date of Onset" if Symptomatic) Sent. sm5 03:13 CT Abd/Pelvis - Without Contrast In Process Unspecified. EDMS 03:54 Initiated transfer with Jayshree at [facility] per Family request; Jayshree reports no lp1 Endoscopy or GI services. 04:16 Initiated Transfer with [facility] with Tiana. lp1 04:30 Julissa reports no bed availability at [facility]. lp1 04:33 Spoke with Julissa, initiating transfer to [facility]. lp1 04:47 Arm band placed on right wrist. sm5 04:47 Patient has correct armband on for positive identification. Placed in gown. Bed in low sm5 position. Call light in reach. Side rails up X2. property assessment monitor on. Pulse ox on. NIBP on. 05:05 Dr. Hodge speaking with Dr. Perea at [facility]. lp1 05:30 Dr. Hodge speaking with Dr. Campbell for possible transfer to [facility]. lp1 06:27 Arterial Blood Gas Sent. sm5 07:52 No provider procedures requiring assistance completed. jg9 07:54 Patient transferred, IV remains in place. jg9 Administered Medications: 02:23 Drug: NS 0.9% 500 ml Route: IV; Rate: bolus; Site: right antecubital; 5 07:58 Follow up: IV Status: Completed infusion; IV Intake: 500ml jg9 02:43 Drug: Calcium Chloride 1 grams Route: IVP; Site: right antecubital; 5 03:40 Drug: Sodium Bicarbonate 1 amp Route: IVP; Site: left antecubital; 5 07:58 Follow up: Response: No adverse reaction jg9 03:49 Drug: Insulin Regular Human 5 units {Co-Signature: kd3 (Ayesha Herman RN).} Route: IVP; sm5 Site: left antecubital; 07:58 Follow up: Response: No adverse reaction jg9 03:56 CANCELLED (not in stockk): D50W 50 ml IVP once; (1 amp) sm5 03:56 Drug: D10 in Water [2 mL/kg] 2 ml/kg Route: IVP; Site: left antecubital; sm5 04:30 Drug: ProTONIX (pantoprazole) 80 mg Route: IVP; Site: right antecubital; sm5 07:55 Follow up: Response: No adverse reaction jg9 04:37 Drug: Kayexalate (polystyrene) 15 grams Route: PO; sm5 07:55 Follow up: Response: No adverse reaction jg9 04:39 Drug: ProTONIX (pantoprazole) 8 mg/hr Route: IV; Rate: 25 ml/hr; Site: right 5 antecubital; 07:54 Follow up: Response: No adverse reaction jg9 07:55 Follow up: IV Intake: 200ml jg9 06:43 Drug: Vitamin K1 (phytonadione) 20 mg Route: Sub-Q; Site: right lower abdomen; kd3 07:54 Follow up: Response: No adverse reaction jg9 07:59 Not Given (patient transferredd): NS 0.9% 500 ml IV at bolus once jg9 Intake: 07:55 IV: 200ml; Total: 200ml. jg9 07:58 IV: 500ml; Total: 700ml. jg9 Outcome: 05:44 ER care complete, transfer ordered by . 7 07:53 Transferred by ground EMS to [facility], Transfer form completed. jg 07:53 Condition: stable 08:13 Patient left the ED. jg9 Signatures: Dispatcher [employer] EDMS Raquel Castelan RN RN lp1 Shira Cruz RN RN lg3 Giancarlo Hodge MD MD 7 Irma Weiner Kyli, RN RN kd3 Malka Ernandez RN RN 5 Niurka Sanchez RN RN jg9 Ayesha Herman RN kd3 Corrections: (The following items were deleted from the chart) 02:09 01:34 Acuity: LIZ 3 lg3 lg3 02:11 02:10 THYROID STIMULAT HORMONE+C.LAB.BRZ drawn and sent. [facility] EDMD 07:59 06:00 NS 0.9% 500 ml IV at bolus in right antecubital jg9 jg9 07:59 07:54 IV Status: Completed infusion; IV Intake: 500ml j9 jg9
--- NOTE | 2021-04-21 05:45 | EDPHYS ---
Physician Documentation [facility] Name: Claudette Sherman Age: 80 yrs Sex: Female : 1940 Arrival Date: 04/21/2021 Time: 01:33 Bed 4 Private MD: ED Physician Giancarlo Hodge HPI: 04/21 01:48 This 80 yrs old Female presents to ER via EMS with complaints of mh7 Nausea/Vomiting. 01:48 The patient presents to the emergency department with nausea, that is moderate, mh7 vomiting, that is intermittent, described as unknown. Onset: The symptoms/episode began/occurred at an unknown time. Possible causes: unknown. The symptoms are aggravated by nothing. The symptoms are alleviated by nothing. According to EMS, they were called to patient's on due to nausea and vomiting with an unknown time of onset. EMS noted heart rate of 29 and reported to be in third-degree heart block. They gave patient Versed and started external pacing with pads.. Historical: - Allergies: 01:41 Codeine; lg3 01:41 Morphine; lg3 - Home Meds: 01:41 aspirin 81 mg Oral TbEC 1 tab once daily [Active]; atorvastatin 20 mg oral tab 1 tab lg3 once daily [Active]; ferrous sulfate 325 mg (65 mg iron) Oral tab [Active]; levothyroxine 125 mcg tab [Active]; warfarin 1 mg oral tab once daily [Active]; Imodium Multi-Symptom Relief 2-125 mg Oral tab 2 tab four times a day [Active]; metoprolol tartrate 25 mg Oral tab 1 tab once daily [Active]; megestrol 40 mg Oral tab 1 tab 4 times per day [Active]; venlafaxine 37.5 mg oral cp24 1 cap once daily [Active]; sodium bicarbonate 650 mg Oral tab 650 mg daily [Active]; losartan 100 mg oral tab once daily [Active]; Vitamin D Oral [Active]; amlodipine 2.5 mg tab 1 tab twice a day [Active]; 01:52 potassium citrate 10 mEq (1,080 mg) oral TbER 2 tabs twice a day [Active]; lg3 amiloride-hydrochlorothiazide 5-50 mg oral tab 1 tab once daily [Active]; - PMHx: 01:41 High Cholesterol; Hypertension; Hypothyroidism; open wound on middle abdomen; sacrum lg3 wound; Anemia; - PSHx: 01:41 Unable to Obtain; lg3 - Immunization history:: Adult Immunizations up to date, moderna X3. - Social history:: Smoking status: Patient denies any tobacco usage or history of. Patient/guardian denies using alcohol. ROS: 01:48 Constitutional: Negative for fever, chills, and weight loss, Eyes: Negative for injury, mh7 pain, redness, and discharge, ENT: Negative for injury, pain, and discharge, Neck: Negative for injury, pain, and swelling, Cardiovascular: Negative for chest pain, palpitations, and edema, Respiratory: Negative for shortness of breath, cough, wheezing, and pleuritic chest pain, Back: Negative for injury and pain, : Negative for injury, bleeding, discharge, and swelling, MS/Extremity: Negative for injury and deformity, Skin: Negative for injury, rash, and discoloration, Neuro: Negative for headache, weakness, numbness, tingling, and seizure, Psych: Negative for depression, anxiety, suicide ideation, homicidal ideation, and hallucinations, Allergy/Immunology: Negative for hives, rash, and allergies, Endocrine: Negative for neck swelling, polydipsia, polyuria, polyphagia, and marked weight changes, Hematologic/Lymphatic: Negative for swollen nodes, abnormal bleeding, and unusual bruising. Exam: 01:48 Head/Face: Normocephalic, atraumatic. Eyes: Pupils equal round and reactive to light, mh7 extra-ocular motions intact. Lids and lashes normal. Conjunctiva and sclera are non-icteric and not injected. Cornea within normal limits. Periorbital areas with no swelling, redness, or edema. Neck: Trachea midline, no thyromegaly or masses palpated, and no cervical lymphadenopathy. Supple, full range of motion without nuchal rigidity, or vertebral point tenderness. No Meningismus. Chest/axilla: Normal chest wall appearance and motion. Nontender with no deformity. No lesions are appreciated. Cardiovascular: Regular rate and rhythm with a normal S1 and S2. No gallops, murmurs, or rubs. Normal PMI, no JVD. No pulse deficits. Respiratory: Lungs have equal breath sounds bilaterally, clear to auscultation and percussion. No rales, rhonchi or wheezes noted. No increased work of breathing, no retractions or nasal flaring. Abdomen/GI: Soft, non-tender, with normal bowel sounds. No distension or tympany. No guarding or rebound. No evidence of tenderness throughout. Back: No spinal tenderness. No costovertebral tenderness. Full range of motion. Skin: Warm, dry with normal turgor. Normal color with no rashes, no lesions, and no evidence of cellulitis. MS/ Extremity: Pulses equal, no cyanosis. Neurovascular intact. Full, normal range of motion. 03:10 Abdomen/GI: Rectal exam: rectal tone normal, Stool: brown, guaiac positive, mh7 hemorrhoid(s), are not appreciated, mass, is not appreciated, swelling, is not appreciated, tenderness, is not appreciated, fecal impaction, is not appreciated, the exam is chaperoned by the nurse. Vital Signs: 01:34 BP 108 / 65; Pulse 80; Temp 97.2(TE); Pulse Ox 96% on 8 lpm NC; lg3 02:24 BP 90 / 32; Pulse 80; Resp 23; Pulse Ox 96% on NC; sm5 03:55 Weight 53.52 kg; sm5 04:20 BP 132 / 64; Pulse 80; Resp 23; Pulse Ox 97% on NC; sm5 05:57 BP 132 / 54; Pulse 80; Resp 21; Pulse Ox 94% on NC; sm5 07:45 BP 110 / 60; Pulse 80; Resp 23 S; Pulse Ox 99% on 4 lpm NC; jg9 MDM: 05:35 Differential diagnosis: Nonspecific abd pain, gastritis, pancreatitis, appendicitis, mh7 diverticulitis, viral gastroenteritis, gastroenteritis. Data reviewed: vital signs, nurses notes, old medical records, lab test result(s), amylase and lipase, cardiac enzymes, CBC, electrolytes, urinalysis, EKG, radiologic studies, CT scan, plain films. Data interpreted: Pulse oximetry: on 2L(s) per nasal canula, is 97 %. Interpretation: acceptable. Counseling: I had a detailed discussion with the patient and/or guardian regarding: the historical points, exam findings, and any diagnostic results supporting the discharge/admit diagnosis, lab results, radiology results, the need to transfer to another facility, [facility] does not immediately have the required specialist. Response to treatment: the patient's symptoms have mildly improved after treatment. 05:44 Patient medically screened. [facility] 04/21 01:38 Order name: Basic Metabolic Panel [facility] 04/21 01:38 Order name: CBC with Diff; Complete Time: 02:54 [facility] 04/21 01:38 Order name: LFT's; Complete Time: 05:08 [facility] 04/21 01:38 Order name: Magnesium; Complete Time: 05:08 [facility] 04/21 01:38 Order name: NT PRO-BNP; Complete Time: 05:08 [facility] 04/21 01:38 Order name: PT-INR; Complete Time: 02:23 [facility] 04/21 01:38 Order name: Troponin HS; Complete Time: 05:08 [facility] 04/21 01:38 Order name: Lipase; Complete Time: 05:08 [facility] 04/21 01:38 Order name: Basic Metabolic Panel; Complete Time: 05:08 [facility] 04/21 01:43 Order name: Arterial Blood Gas [facility] 04/21 01:43 Order name: COVID-19/FLU A+B/RSV (Document "Date of Onset" if Symptomatic); Complete [facility] Time: 05:08 04/21 01:43 Order name: ABG Arterial Blood Gas; Complete Time: 02:23 [facility] 04/21 01:44 Order name: Type And Screen; Complete Time: 02:54 [facility] 04/21 01:38 Order name: XRAY Chest (1 view) [facility] 04/21 02:04 Order name: Glucose, Ancillary Testing; Complete Time: 02:10 [facility] 04/21 02:12 Order name: Thyroid Stimulating Hormone; Complete Time: 05:08 [facility] 04/21 02:28 Order name: CT Abd/Pelvis - Without Contrast [facility] 04/21 03:38 Order name: T4 Free; Complete Time: 05:08 [facility] 04/21 04:45 Order name: Glucose, Ancillary Testing; Complete Time: 05:08 [facility] 04/21 01:38 Order name: Cardiac monitoring; Complete Time: 02:09 [facility] 04/21 01:38 Order name: EKG - Nurse/Tech; Complete Time: 08:00 [facility] 04/21 01:38 Order name: IV Saline Lock; Complete Time: 02:09 [facility] 04/21 01:38 Order name: Labs collected and sent; Complete Time: 02:09 [facility] 04/21 01:38 Order name: O2 Per Protocol; Complete Time: : [facility] 04/21 01:38 Order name: O2 Sat Monitoring; Complete Time: [facility] Administered Medications: 02:23 Drug: NS 0.9% 500 ml Route: IV; Rate: bolus; Site: right antecubital; 5 07:58 Follow up: IV Status: Completed infusion; IV Intake: 500ml jg9 02:43 Drug: Calcium Chloride 1 grams Route: IVP; Site: right antecubital; [facility] 03:40 Drug: Sodium Bicarbonate 1 amp Route: IVP; Site: left antecubital; 5 07:58 Follow up: Response: No adverse reaction jg9 03:49 Drug: Insulin Regular Human 5 units {Co-Signature: marisol3 (Ayesha Herman RN).} Route: IVP; [facility] Site: left antecubital; 07:58 Follow up: Response: No adverse reaction j9 03:56 CANCELLED (not in stockk): D50W 50 ml IVP once; (1 amp) [facility] 03:56 Drug: D10 in Water [2 mL/kg] 2 ml/kg Route: IVP; Site: left antecubital; [facility] 04:30 Drug: ProTONIX (pantoprazole) 80 mg Route: IVP; Site: right antecubital; 5 07:55 Follow up: Response: No adverse reaction jg9 04:37 Drug: Kayexalate (polystyrene) 15 grams Route: PO; 5 07:55 Follow up: Response: No adverse reaction jg9 04:39 Drug: ProTONIX (pantoprazole) 8 mg/hr Route: IV; Rate: 25 ml/hr; Site: right 5 antecubital; 07:54 Follow up: Response: No adverse reaction jg9 07:55 Follow up: IV Intake: 200ml jg9 06:43 Drug: Vitamin K1 (phytonadione) 20 mg Route: Sub-Q; Site: right lower abdomen; kd3 07:54 Follow up: Response: No adverse reaction jg9 07:59 Not Given (patient transferredd): NS 0.9% 500 ml IV at bolus once jg9 Disposition Summary: 04/21/21 05:44 Transfer Ordered Transfer Location: Other Acute Care Facility mh7 Reason: Higher level of care mh7 Condition: Critical mh7 Problem: new mh7 Symptoms: have improved mh7 Accepting Physician: [facility]. R[facility](04/21/21 08:13) jg9 Diagnosis - GI Bleed/ Gastrointestinal hemorrhage, unspecified mh7 - Hyperkalemia mh7 - Atrioventricular block, complete mh7 - Chronic kidney disease, unspecified mh7 Forms: - Medication Reconciliation Form mh7 - SBAR form mh7 Signatures: Dispatcher [employer] EDMS Shira Cruz, RN RN lg3 Giancarlo Hodge MD MD mh7 Ayesha Herman, RN RN kd3 Malka Ernandez RN RN sm5 Niurka Sanchez RN RN jg9 Ayesha Herman RN kd3 Corrections: (The following items were deleted from the chart) 02:11 01:42 THYROID STIMULAT HORMONE+C.LAB.BRZ ordered. EDAL EDMS 03:56 02:58 D50W 50 ml IVP once; (1 amp) ordered. [facility]5 06:25 03:30 BLOOD CULTURE*+BA.LAB.BRZ ordered. EDAL EDMS 08:00 01:38 Urine Dipstick-Ancillary ordered. [facility] jg9 08:13 05:44 Dr. Rai [facility]7 jg9
[2021-04-21] MEDS ORDERED: VITAMIN K (ADULT) 10 MG/ML ONE (06:32)
[2021-04-21 08:18] VITALS: TEMP 97.2
[2021-04-21 08:24] VITALS: BP 110/60; O2SAT 99
--- NOTE | 2021-04-21 14:17 | RAD REPORT ---
EXAM DESCRIPTION: CT ABDOMEN AND PELVIS WITHOUT CONTRAST CLINICAL HISTORY: Abd pain;Nausea / vomiting COMPARISON: 06/10/2020 TECHNIQUE: CT of the abdomen and pelvis without IV contrast. Evaluation of the solid organs and vasc ulature is suboptimal due to lack of IV contrast. This exam was performed according to our department al dose-optimization program, which includes automated exposure control, adjustment of the mA and/or kV according to patient size and/or use of iterative reconstruction technique. FINDINGS: Lung Bases: Mild bibasilar interstitial opacities. Cardiomegaly. Coronary artery atheroscl erosis. Coarse annular calcification of the mitral valve. Bones: Stable multilevel endplate spondylosis and facet arthropathy. Osteoarthritic change of the hip s. Abdomen: Liver: The liver has normal size and density. Gallbladder: Prior cholecystectomy. Spleen, Pancreas, and Adrenal Glands: The spleen, pancreas, and adrenal glands are unremarkable. Kidneys: The kidneys have normal size without evidence of hydronephrosis. No obstructing ureteral bill culi. Vasculature: Aortoiliac atherosclerosis. IVC is unremarkable. Stomach: Small hiatal hernia. Mild wall thickening of the stomach. Other: No free intraperitoneal air. No free fluid or lymphadenopathy. Pelvis: Bladder: Urinary bladder is unremarkable. Bowel: No dilated loops of large or small bowel. Scattered diverticula of the colon. Prior partial colectomy. Mild long segment wall thickening of the residual colon with adjacent inflammatory change. Appendix: Not visualized. Pelvis: Prior hysterectomy. IMPRESSION: 1. Mild long segment wall thickening of the residual colon with adjacent inflammatory change. These findings could be seen with nonspecific colitis of infectious or inflammatory etiology. 2. Mild wall thickening of the stomach. This could be seen with gastritis. 3. Small hiatal hernia. 4. Cardiomegaly with coronary artery atherosclerosis. Electronically signed by: Juan Frost 04/21/2021 5:02 AM CDT Due to temporary technical issues with the PACS/Fluency reporting system, reports are being signed by the in house radiologist without review as a courtesy to ensure prompt reporting. The interpreting r adiologist is fully responsible for the content of the report.
--- NOTE | 2021-04-21 15:27 | RAD REPORT ---
EXAM DESCRIPTION: XR Chest, 1 View CLINICAL HISTORY: Bradycardia TECHNIQUE: Frontal view of the chest. COMPARISON: No relevant prior studies available. FINDINGS: Lungs: Coarsened interstitial markings. No focal consolidation. Pleural space: Unremarkable. No pneumothorax. Heart: The cardiac silhouette is mildly to moderately enlarged. Prior CABG. Prosthetic aortic valve . Mitral annular calcification. Mediastinum: Unremarkable. Bones/joints: Prior median sternotomy. Multilevel spondylosis. No acute fracture. Vasculature: Thoracic aortic atherosclerosis. IMPRESSION: No acute disease. Electronically signed by: Martha Lyles MD 04/21/2021 3:35 AM CDT Due to temporary technical issues with the PACS/Fluency reporting system, reports are being signed by the in house radiologist without review as a courtesy to ensure prompt reporting. The interpreting r adiologist is fully responsible for the content of the report.
== END 2021-04-21 08:13 ==
LOC: ER 01:30
DX: K92.2 Gastrointestinal hemorrhage, unspecified (principal); E87.5 Hyperkalemia; I44.2 Atrioventricular block, complete; I12.9 Hypertensive chronic kidney disease with stage 1 through stage 4 chronic kidney disease, or unspecified chronic kidney disease; N18.9 Chronic kidney disease, unspecified; E03.9 Hypothyroidism, unspecified; E78.00 Pure hypercholesterolemia, unspecified; Z20.822 Contact with and (suspected) exposure to COVID-19; Z79.01 Long term (current) use of anticoagulants; Z79.82 Long term (current) use of aspirin; Z88.5 Allergy status to narcotic agent
CPT/HCPCS: 85025; 80048; 36415; 86900; 83735; 86850; 85610; 86901; 82947 ×2; 80076; 84443; 84484; 84439; 83690; 83880; 0241U; 74176; 71045; 82805; 96372; 99291; 99292; J2765; J3430; C9113; J7050; J7040 ×2

== ENCOUNTER 2021-12-01 08:42 | Emergency (ER) | payer OTHER, MEDICARE ==
--- OUTSIDE RECORDS SUMMARY | 2021-12-01 09:04 | XMS REPORT | Continuity of Care Document ---
:1940 Author Organization [facility] t Address [address] [place] [address] Care Team Providers Name Role Phone KRISTEN FREIRE Primary Care Physician Unavailable Georgina Smith Attending Clinician Unavailable DONNA CUNNINGHAM Attending Clinician Unavailable Donna Cunningham MD Attending Clinician Aba Glass MD Attending Clinician [phone] Karthik Gallego MD Attending Clinician KARTHIK GALLEGO Attending Clinician Unavailable Elieser Marie MD Attending Clinician Haydee Campbell MD Attending Clinician Luigi Allred MD Attending Clinician Nurse, [facility] Attending Clinician Unavailable Nurse, Davon Wylie Attending Clinician Unavailable Carmen Barkley RN Attending Clinician Unavailable ANA MARIA EPPS Attending Clinician Unavailable Only, Davon Wylie Test Attending Clinician Unavailable Regis CORREIA, Ana Maria Attending Clinician Arvind, [place] Attending Clinician Unavailable Mireille Hunter Attending Clinician Unavailable LEILANI SANCHEZ Attending Clinician Unavailable Doctor Unassigned, Dekorra Attending Clinician Unavailable Lisa Ragland RN Attending Clinician Unavailable BASIL MALONEY Attending Clinician Unavailable MEGHAN TUTTLE Attending Clinician Unavailable Rashid Son Attending Clinician Unavailable Mike Anguiano Attending Clinician Unavailable SANTOS GAYTAN Attending Clinician Unavailable Joe Higgins Admitting Clinician Unavailable DONNA CUNNINGHAM Admitting Clinician Unavailable Arvind, Tevin Admitting Clinician Unavailable UNDEFINED Admitting Clinician Unavailable Ramu Sutherland Admitting Clinician Unavailable NIVIA TERAN Admitting Clinician Unavailable NOHELIA BELL Admitting Clinician Unavailable Rashid Son Admitting Clinician Unavailable Payers Payer Name Policy Type Policy Number Effective Date Expiration Date S link MEDICARE PART A \\T\\ [id number] 2004 B 00:00:00 [facility] [id number] 2008 MEDICARE SUPPLEMENT 00:00:00 MEDICARE A B [id number] 2004 00:00:00 Problems Condition Condition Condition Status Onset Resolution Last Treating Co mments Source Name Details Category Date Date Treatment Clinician Date Shock, Shock, Disease Active [facility] cardi[facility] cardiogeni 3-16 [facility] c c 00:00: Medical 00 Center Atrioventr Atrioventr Disease Active [facility] icular icular [facility] block, block, 00:00: Medical complete complete 00 Center GI bleed GI bleed Disease Active [facility] 00[facility] Center Acute Acute Disease Active [facility] hyperkalem hyperkalem 3-14 [facility] ia ia 00:00: Medical 00 Center Bleeding Bleeding Disease Active Overview: [facility] 00:00: g of this Medical 00 note Center might be different from the original. Added automatic ally from request for surgery 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 1-06 it y of d severe d severe 00:00: [place] protein-ca protein-ca 00 Me dical ryanne pearl Branch malnutriti malnutriti on on HEATHER (acute HEATHER (acute Disease Active U nivers kidney kidney 1-04 ity of injury) injury) 00:00: [place] [address] Medical Branch Wound Wound Disease Active Univers infection infection 1-04 ity of 00:00: [address] Branch Urinary Urinary Disease Active 2019-02 Univers tract tract 2-27 ity of infection[place] site not 00 Medica l specified specified Bran ch Acquired Acquired Disease Active Unive rs hypothyroi hypothyroi 1-05 it y of dism dism 00:00: [address] Branch High High Disease Active Univers cholestero cholestero it y of l l [facility] Diet-contr Diet-contr Disease Active U nivers olled olled ity of diabetes diabetes [place] mellitus mellitus Medica l Branch HTN HTN Disease Active Overview: Univer s (hypertens (hypertens Formattin ity of ion), ion), g of this [place] benign benign note Medical might be Branch different from the original. follows with Dr. Anguiano. 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 ity of [facility] Other Other Disease Active Univers specified specified ity of hypothyro[place]ro[place] dism dism Medical Branch Allergies, Adverse Reactions, Alerts Allergy Allergy Status Severity Reaction(s) Onset Inactive Treating Comm ents Source Name Type Date Date Clinician CODEINE Allergy Active [facility] 00[facility]: Center MORPHINE Allergy Active [facility] Medical Center Codeine Propensi Active [facility] ty [facility]14 [facility] adverse 00:00: Medical reaction 00 Center s Morphine Propensi Active [facility] adverse 00:00: Medical reaction 00 Center s morphine DA Active [facility] 2021-0 [facility] 00:00: [address] codeine DA Active SV 2020-0 [facility]17 [facility] 00:00: [address] morphine DA Active SV HALLUCINATIO 2020-0 HC A NS 1-17 West 00:00: [address] codeine DA Active SV HALLUCINATIO 2020-0 [facility] NS 1-17 West 00:00: [address] MORPHINE DRUG Active Hallucinates 2019-1 Un jorge SULFATE INGREDI 2-28 ity of 00:00: [address] Morphine Propensi Active Hallucinatio 2019-1 CANNOT Univers Sulfate ty to ns 2-28 TAKE ANY ity of adverse 00:00: TYPE OF [place] reaction 00 MORPHINE Medica l s Branch No Known DA Active U 2020-1 [facility] Allergie 1-11 [facility] s 00:00: [address] No Known DA Active U 2020-1 [facility] Allergie 1-11 [facility] s 00:00: [address] No Known DA Active U 2020-1 [facility] Allergie 0-29 [facility] s 00:00: [address] No Known DA Active U 2020-1 [facility] Allergie 0-29 [facility] s 00:00: [address] No Known DA Active U 2020-1 [facility] Allergie 0-16 [facility] s 00:00: [address] No Known DA Active U 2020-1 [facility] Allergie 0-16 [facility] s 00:00: [address] NO KNOWN Drug Active Univers ALLERGIE Class ity of [facility] [place] [facility] Social History Social Habit Start Date Stop Date Quantity Comments Source Exposure to Not sure [facility] SARS-CoV-2 [facility] (event) Branch History SDOH [facility] Alcohol Std Medical Cente r Drinks History SDOH [facility] Alcohol Binge Medical July ter History SDOH [facility] Alcohol Comment Medical C enter Alcohol intake 2021-04-25 2021-04-[address] [facility] 00:[facility]:00 00:00:00 non-drinker Medical Cente r (finding) Tobacco use and 2021-04-21 2021-04-[address] [facility] exposure 00:00:00 00:00:00 Medical Center History SDOH 2021-04-21 2021-04-[address] [facility] Alcohol Frequency 00:00:00 00:00:00 Medical Center History SDOH 2020-02-12 2020-02-12 5 University o f Financial 00:00:00 00:00:00 [place] [facility] History SDWY Food 2020-02-12 2020-02-12 1 Univers ity of Worry 00:00:00 00:00:00 [place] [facility] History SDOH Food 2020-02-12 2020-02-12 1 Univers ity of Scarcity 00:00:00 00:00:00 [place] [facility] History SDOH 2020-02-12 2020-02-12 2 University o f Transport Med 00:00:00 00:00:00 [facility] al Branch History [facility] 2020-02-12 2020-02-12 2 [place] o f Transport Non-Med 00:00:00 00:00:00 [facility] Sex Assigned At [address] [facility] 00:00:00 00:00:00 Medical Center Smoking Status Start Date Stop Date Source Never sm[facility] Med ica Center Medications Ordered Filled Start Stop Current Ordering Indication Dosage Frequency Signature Comments Components Source Medication Medication Date Date Medication? Clinician (SIG) Name Name aspirin 81 Yes 81mg QD Take [address] MG EC 3-19 by mouth [facility] tablet 14:09: daily. Medical 02 [place] atorvastati Yes 20mg QD Take [address] n (LIPITOR) 3-19 by mouth Luke s 20 MG 14:09: daily. Medical tablet 02 Center ferrous Yes 325mg Take 325 [facility] t sulfate 325 3-19 mg by [facility] (65 FE) MG 14:09: mouth Medica l tablet 02 daily with Center breakfast. levothyroxi Yes 125ug Take [address] ne 3-19 mcg by [facility]ukes (SYNTHROID, 14:09: mouth Medic al LEVOTHROID) 02 Every Center 125 MCG morning on tablet an empty stomach. loperamide Yes 4mg Q.25D Take [address] (IMODIUM 3-19 by mouth 4 [facility] A-D) 2 mg 14:09: (four) Medica l tablet 02 times Center daily. metoprolol Yes QD Take by [facility] succinate 3-19 mouth [facility] (TOPROL-XL) 14:09: daily. Medi bill 25 MG 24 hr 02 Center tablet megestroL Yes 40mg Q.25D Take [address] (MEGACE) 40 3-19 by mouth 4 [facility] MG tablet 14:09: (four) Medica l 02 times Center daily. venlafaxine Yes 37.5mg QD Take 37.[address] (EFFEXOR) 3-19 mg by [facility]ukes 37.5 MG 14:09: mouth Medical tablet 02 daily. [place] sodium Yes 1{tbl} QD Take [address] bicarbonate 3-19 tablet by James es 650 MG 14:09: mouth Medical tablet 02 daily. [place] losartan Yes 100mg QD Take [address] (COZAAR) 3-19 mg by [facility] 100 MG 14:09: mouth Medical tablet 02 daily. [place] amLODIPine Yes 2.5mg Q.5D Take 2.[address] (NORVASC) 3-19 mg by [facility] 2.5 MG 14:09: mouth 2 Medical tablet 02 (two) Center times daily. citric Yes Take by [facility] acid-potass 3-19 mouth 3 [facility] ium citrate 14:09: (three) Med ical (POLYCITRA) 02 times [place] 1,100-334 daily with mg/5 mL meals. solution potassium Yes Q.5D Take by [facility]I [facility] t citrate 15 3-19 mouth 2 [facility]ukes mEq TbER 14:09: (two) Medical 02 times [place] daily. warfarin 2021- No 1mg QD Take [address] (COUMADIN, 04-26 03-18 by mouth Luke s JANTOVEN) 1 14:09: 00:00 daily. Med ical MG tablet 02 :00 [place] AMILoride 0 2021- No 5mg QD Take [address] (MIDAMOR) 5 - 03-18 by mouth James es MG tablet 14:09: 00:00 daily. Medic al 02 :00 [place] potassium 2021-0 2021- No 20meq Q.5D Take [address] chloride 3-19 03-14 mEq by [facility]ukes (KLOR-CON-M 14:09: 00:00 mouth 2 Me dical ) 10 MEQ CR 02 :00 (two) Center tablet times daily. warfarin 0 2022- No 3mg QD Take [address] (COUMADIN, 3-18 03-18 tablets (3 Mary kes JANTOVEN) 1 00:00: 23:59 mg total) Medical MG tablet 00 :00 by mouth Center daily. pantoprazol 0 2021- No 40mg QD Take [address] e 3-18 04-17 tablet (40 [facility] (PROTONIX) 00:00: 23:59 mg total) M edical 40 MG 00 :00 by mouth Center tablet daily for 30 days. levoFLOXaci 2021-0 2021- No 250mg QD Take [address] n 3-18 03-21 tablet [facility]ukes (LEVAQUIN) 00:00: 23:59 (250 mg Med ical 250 MG 00 :00 total) by Center tablet mouth daily for 3 days. ferrous Yes 325mg Take 325 Unive rs [...] by mouth ity of tablet 19:14: at [place] [address] bedtime. Medical Branch metoprolol Yes 25mg Take 25 mg U nivers tartrate 25 1-13 by mouth 2 it y of mg tablet 19:14: (two) [place] [address] times Medical daily. Branch atorvastati Yes 40mg Take 40 mg Univers n 40 mg 1-13 by mouth ity of tablet 19:14: at [place] [address] bedtime. Medical Branch ferrous Yes 325mg Take [...] by mouth ity of tablet 19:14: at [place] [address] bedtime. Medical Branch metoprolol 0 Yes 25mg Take 25 mg U nivers tartrate 25 1-13 by mouth 2 it y of mg tablet 19:14: (two) times Medical daily. Branch atorvastati 0 Yes 40mg Take 40 mg Univers n 40 mg 1-13 by mouth ity of tablet 19:14: at [place] [address] bedtime. Medical Branch ferrous 0 Yes 325mg Take 325 Unive rs sulfate 325 1-13 mg by ity of mg (65 mg 19:14: mouth [place] iron) 07 every Medical tablet evening. Branch aspirin 81 0 Yes 81mg Take 81 mg U nivers mg chewable 1-13 by mouth ity of tablet 19:14: daily. Medical Branch mirtazapine 0 Yes 15mg Take 15 mg Univers 15 mg 1-13 by mouth ity of tablet 19:14: at [place] [address] bedtime. Medical Branch metoprolol 0 Yes 25mg Take 25 mg U nivers tartrate 25 1-13 by mouth 2 it y of mg tablet 19:14: (two) times Medical daily. Branch atorvastati 0 Yes 40mg Take 40 mg Univers n 40 mg 1-13 by mouth ity of tablet 19:14: at [place] [address] bedtime. Medical Branch ferrous 0 Yes 325mg Take 325 Unive rs sulfate 325 1-13 mg by ity of mg (65 mg 19:14: mouth [place] iron) 07 every Medical tablet evening. Branch aspirin 81 0 Yes 81mg Take 81 mg U nivers mg chewable 1-13 by mouth ity of tablet 19:14: daily. Medical Branch mirtazapine 0 Yes 15mg Take 15 mg Univers 15 mg 1-13 by mouth ity of tablet 19:14: at [place] [address] bedtime. Medical Branch metoprolol 0 Yes 25mg Take 25 mg U nivers tartrate 25 1-13 by mouth 2 it y of mg tablet 19:14: (two) times Medical daily. Branch atorvastati 0 Yes 40mg Take 40 mg Univers n 40 mg 1-13 by mouth ity of tablet 19:14: at [place] [address] bedtime. Medical Branch SERTraline 2016-02 Yes [id number] 50mg Take 1 U nivers 50 mg 0-10 tablet by ity of tablet 00:00: mouth [place] 00 daily. [facility] SERTraline 2016-02 Yes [id number] 50mg Take 1 U nivers 50 mg 0-10 tablet by ity of tablet 00:00: mouth [place] 00 daily. [facility] SERTraline 2016-02 Yes [id number] 50mg Take 1 U nivers 50 mg 0-10 tablet by ity of tablet 00:00: mouth [place] 00 daily. [facility] SERTraline 2016-02 Yes [id number] 50mg Take 1 U nivers 50 mg 0-10 tablet by ity of tablet 00:00: mouth [place] 00 daily. [facility] Immunizations Ordered Filled Immunization Date Status Comments [facility] e Immunization Name Name Influenza High Dose 2019-10-27 Completed Unive rsity of [place] 00:00:00 [facility] Influenza High Dose 2019-10-27 Completed Unive rsity of [place] 00:00:00 [facility] Influenza High Dose 2019-10-27 Completed Unive rsity of [place] 00:00:00 [facility] Influenza High Dose 2019-10-27 Completed Unive rsity of Quad 00:00:00 [facility] Pneumococcal 13 2015-11-19 Completed Universit y of Conjugate, PCV13 00:00:00 [facility] dical (Prevnar 13) Isaban Influenza High Dose 2015-11-19 Completed Unive rsity of 00:00:00 [facility] Pneumococcal 13 2015-11-19 Completed Universit y of Conjugate, PCV13 00:00:00 [facility] dical (Prevnar 13) Isaban Influenza High Dose 2015-11-19 Completed Unive rsity of 00:00:00 [facility] Pneumococcal 13 2015-11-19 Completed Universit y of Conjugate, PCV13 00:00:00 [facility] dical (Prevnar 13) Branch Influenza High Dose 2015-11-19 Completed Unive rsity of 00:00:00 [facility] Pneumococcal 13 2015-11-19 Completed Universit y of Conjugate, PCV13 00:00:00 [facility] dical (Prevnar 13) Isaban Influenza High Dose 2015-11-19 Completed Unive rsity of 00:00:00 [facility] Vital Signs Vital Name Observation Time Observation Value Comments Source HEIGHT 2021-04-21 09:30:00 152.4 cm WEIGHT 2021-04-21 09:30:00 54.2 kg HEIGHT 2021-04-21 09:30:00 152.4 cm WEIGHT 2021-04-21 09:30:00 54.2 kg HEIGHT 2021-04-21 09:30:00 152.4 cm WEIGHT 2021-04-21 09:30:00 54.2 kg Systolic blood 2021-04-25 12:13:00 130 mm[Hg] [facility] Diastolic blood 2021-04-25 12:13:00 61 mm[Hg] [facility] Heart rate 2021-04-25 12:13:00 69 /min [facility] Body temperature 2021-04-25 12:13:00 36.56 Carmen [facility] Respiratory rate 2021-04-25 12:13:00 17 /min [facility] Oxygen saturation in 2021-04-25 12:13:00 98 /min [facility] Arterial blood by Medical Ce nter Pulse oximetry Body height 2021-04-21 09:30:00 152.4 cm [facility] Body weight 2021-04-21 09:30:00 54.2 kg [facility] BMI 2021-04-21 09:30:00 23.34 kg/m2 [facility] Procedures Procedure Date / Time Performing Source Performed Clinician CBC W/PLT COUNT & AUTO DIFFERENTIAL 2021-04-25 Tommie [facility] 05:25:00 [facility] BASIC METABOLIC PANEL 2021-04-25 Tommie [facility] 05:25:00 [facility] CBC W/PLT COUNT & AUTO DIFFERENTIAL 2021-04-25 [facility] 05:25:00 [facility] PROTHROMBIN TIME/INR 2021-04-25 Qiu-Gabriella Sifuentes [facility] 05:25:00 [facility] POCT-GLUCOSE METER 2021-04-24 Karthik Gallego [facility] 16:45:00 [facility] TISSUE EXAM 2021-04-24 Adrian, [facility] 13:59:00 [facility] ESOPHAGOGASTRODUODENOSCOPY 2021-04-24 Tommie, Nasrullah [facility] 13:45:00 Medical Center POCT-GLUCOSE METER 2021-04-24 Gallego, Karthik [facility] 11:20:00 Medical Center POCT-GLUCOSE METER 2021-04-24 Gallego, Karthik [facility] 09:02:00 Medical Center ECG 12-LEAD 2021-04-24 Son, Marylou [facility] 08:21:01 Medical Center POCT-GLUCOSE METER 2021-04-24 Gallego, Karthik [facility] 08:09:00 Medical Center CBC W/PLT COUNT & AUTO DIFFERENTIAL 2021-04-[address] el [facility] 03:42:00 [facility] MAGNESIUM 2021-04-24 Son, Marylou [facility] 03:42:00 Medical Center PHOSPHORUS 2021-04-24 Son, Marylou [facility] 03:42:00 Medical Center PROTHROMBIN TIME/INR 2021-04-24 Son, Mary[facility]ou [facility] 03:42:00 Medical Center BASIC METABOLIC PANEL 2021-04-24 Manneal, Navinrullah [facility] 03:42:00 Medical Center CBC W/PLT COUNT & AUTO DIFFERENTIAL 2021-04-24 Manji, Nasru llah [facility] 03:42:00 Medical Center PREPARE LEUKO-REDUCED RBC 2021-04-23 Son, Marylou [facility] 23:54:00 Medical Center POCT-GLUCOSE METER 2021-04-23 Gallego, Karthik [facility] 19:57:00 Medical Center POCT-GLUCOSE METER 2021-04-23 Gallego, Karthik [facility] 15:58:00 Medical Center POCT-GLUCOSE METER 2021-04-23 Gallego, Karthik [facility] 12:30:00 Medical Center POCT-GLUCOSE METER 2021-04-23 Gallego, Karthik [facility] 07:32:00 Medical Center CBC W/PLT COUNT & AUTO DIFFERENTIAL 2021-04-[address] [facility] 03:59:00 [facility] MAGNESIUM 2021-04-23 Son, Marylou [facility] 03:59:00 Medical Center PHOSPHORUS 2021-04-23 Son, Marylou [facility] 03:59:00 Medical Center PROTHROMBIN TIME/INR 2021-04-23 Son, [facility]ou [facility] 03:59:00 [facility] BASIC METABOLIC PANEL 2021-04-[address] [facility] 03:59:00 [facility] CBC W/PLT COUNT & AUTO DIFFERENTIAL 2021-04-[address] [facility] 03:59:00 [facility] POTASSIUM 2021-04-[address] [facility] 20:54:00 [facility] POCT-GLUCOSE METER 2021-04-22 Shieh, Aba [facility] 20:27:00 [facility] POCT-GLUCOSE METER 2021-04-22 Shieh, Aba [facility] 16:36:00 [facility] ELECTROLYTES 2021-04-[address] [facility] 12:59:00 [facility] POCT-GLUCOSE METER 2021-04-22 Maria Luisa, Aba [facility] 11:18:00 [facility] TRANSFUSE LEUKO-REDUCED RED BLOOD 2021-04-22 Son, Marylou [facility] CELLS 10:34:00 [facility] ABORH, MANUAL 2021-04-[address] [facility] 09:34:00 [facility] TYPE AND SCREEN, AUTOMATED 2021-04-22 Son, [facility] 08:23:00 [facility] T4, FREE 2021-04-[address] [facility] 08:20:00 [facility] POCT-GLUCOSE METER 2021-04-22 Shieh, Aba [facility] 08:05:00 [facility] POCT-GLUCOSE METER 2021-04-22 Shieh, Aba [facility] 05:36:00 [facility] CBC W/PLT COUNT & AUTO DIFFERENTIAL 2021-04-[address] [facility] 03:37:00 [facility] MAGNESIUM 2021-04-22 Son, Marylou [facility] 03:37:00 [facility] Center PHOSPHORUS 2021-04-22 Son, Marylou [facility] 03:37:00 Medical Center HEPATIC FUNCTION PANEL 2021-04-22 Son, Marylou [facility] 03:37:00 [facility] Center PROTHROMBIN TIME/INR 2021-04-22 Son, [facility] 03:37:00 [facility] BASIC METABOLIC PANEL 2021-04-[address] [facility] 03:37:00 [facility] Center CBC W/PLT COUNT & AUTO DIFFERENTIAL 2021-04-[address] [facility] 03:37:00 [facility] POCT-GLUCOSE METER 2021-04-[address] [facility] 23:12:00 [facility] BASIC METABOLIC PANEL 2021-04-21 Teresa, Je [facility] 21:31:00 [facility] BLOOD GAS, ARTERIAL 2021-04-21 Teresa, Brigani [facility] 21:00:00 [facility] BLOOD CULTURE 2021-04-[address] [facility] 17:51:00 [facility] BASIC METABOLIC PANEL 2021-04-21 Son, Marylou [facility] 17:07:00 [facility] T3, FREE 2021-04-21 Ty, Luigi Monica [facility] 17:07:00 [facility] TSH 2021-04-21 Ty, Luigi Monica [facility] 17:07:00 [facility] MAGNESIUM 2021-04-21 Teresa, Brigani [facility] 17:07:00 [facility] PHOSPHORUS 2021-04-21 Teresa, Brigani [facility] 17:07:00 [facility] ALBUMIN 2021-04-21 Teresa, Brigani [facility] 17:07:00 [facility] BLOOD GAS, ARTERIAL 2021-04-21 Teresa, Brigani [facility] 13:29:00 [facility] BLOOD CULTURE 2021-04-21 Banjo, Atinuke [facility] 13:13:00 [facility] SODIUM, RANDOM URINE 2021-04-21 Banjo, Atinuke [facility] 13:08:00 [facility] URINALYSIS W/ REFLEX URINE CULTURE 2021-04-21 Banjo, Atinuk e [facility] 13:08:00 [facility] POCT-GLUCOSE METER 2021-04-[address] [facility] 12:55:00 [facility] CBC W/PLT COUNT & AUTO DIFFERENTIAL 2021-04-21 Shimaximus, Catrachito lancaster [facility] 12:50:00 [facility] TROPONIN I 2021-04-21 Son, Marylou [facility] 12:50:00 [facility] BASIC METABOLIC PANEL 2021-04-21 Maria Luisa, Aba [facility] 12:50:00 [facility] CBC W/PLT COUNT & AUTO DIFFERENTIAL 2021-04-21 Shieh, Catrachito lancaster [facility] 12:50:00 [facility] PROTHROMBIN TIME/INR 2021-04-21 Maria Luisa, Aba [facility] 12:50:00 [facility] LACTIC ACID, VENOUS 2021-04-21 Maria Luisa, Aba [facility] 12:50:00 [facility] MAGNESIUM 2021-04-21 Son, Marylou [facility] 12:50:00 [facility] PHOSPHORUS 2021-04-21 Son, Marylou [facility] 12:50:00 [facility] INSERT NON-TUNNEL CV CATH 2021-04-21 JuinorHowie vazquez [facility] 11:04:50 [facility] INSERTION, CATHETER, TEMPORARY 2021-04-[address] [facility] PACING 11:00:00 [facility] 2D ECHO W/ DOPPLER (CW/PW/COLOR) 2021-04-21 Son, Marylou [facility] 10:04:34 [facility] LACTIC ACID, VENOUS 2021-04-21 Maria Luisa, Aba [facility] 09:57:00 [facility] CBC W/PLT COUNT & AUTO DIFFERENTIAL 2021-04-21 Son, Stac y [facility] 09:53:00 [facility] CBC W/PLT COUNT & AUTO DIFFERENTIAL 2021-04-21 Son, Stac y [facility] 09:53:00 [facility] PROTHROMBIN TIME/INR 2021-04-21 Son, Marylou [facility] 09:53:00 [facility] COMPREHENSIVE METABOLIC PANEL 2021-04-21 Son, [facility] 09:53:00 Medical Center MAGNESIUM 2021-04-21 Son, Marylou [facility] 09:53:00 Medical Center PHOSPHORUS 2021-04-21 Son, Marylou [facility] 09:53:00 Medical Center TSH/FREE T4 IF INDICATED 2021-04-21 Son, Marylou [facility] 09:53:00 [facility] Center TROPONIN I 2021-04-21 Son, Marylou [facility] 09:53:00 Medical Center LIPASE 2021-04-21 Son, Marylou [facility] 09:53:00 [facility] Center B-TYPE NATRIURETIC FACTOR (BNP) 2021-04-21 Son, Marylou [facility] 09:53:00 [facility] Center D-DIMER 2021-04-21 Son, Marylou [facility] 09:53:00 [facility] T4, FREE 2021-04-21 Son, Marylou [facility] 09:53:00 [facility] Center POCT-GLUCOSE METER 2021-04-[address] [facility] 09:37:00 [facility] XR CHEST 1 VIEW PORTABLE / BEDSIDE 2021-04-21 Son, Marylou [facility] 09:35:00 [facility] CARDIAC CATH REPORT - SCAN 2021-04-21 Provider, Default [facility] 00:00:00 [facility] EKG-SCANNED 2021-04-21 Provider, Default [facility] 00:00:00 [facility] [id number] 2020-11-26 FANZH [facility] 00:[facility]:[address] [facility] [id number] 2020-11-26 FANZH [facility] 00:00:[address] [facility] [id number] 2020-11-26 FANZH [facility] 00:00:[address] [facility] [id number] 2020-11-26 FANZH [facility] 00:00:[address] [facility] [id number] 2020-11-26 FANZH [facility] 00:00:[address] [facility] [id number] 2020-02-29 KARNI [facility] 00:00:[address] [facility] [id number] 2019-12-22 FAROM [facility] 00:00:[address] [facility] [id number] 2019-12-22 FAROM [facility] 00:00:[address] [facility] [id number] 2019-12-22 FAROM [facility] 00:00:[address] [facility] [id number] 2019-12-22 MOUMA [facility] 00:00:[address] [facility] [id number] 2019-12-16 FAROM [facility] 00:00:[address] [facility] [id number] 2019-12-14 RANRO [facility] 00:00:[address] [facility] [id number] 2019-12-04 MCKRO [facility] 00:00:[address] [facility] [id number] 2019-11-30 MCKRO [facility] 00:00:[address] [facility] [id number] 2019-11-30 MCKRO [facility] 00:00:[address] [facility] [id number] 2019-11-30 MCKRO [facility] 00:00:[address] [facility] [id number] 2019-11-30 MCKRO [facility] 00:00:[address] [facility] [id number] 2019-11-30 MCKRO [facility] 00:00:[address] [facility] [id number] 2019-11-30 MCKRO [facility] 00:00:[address] [facility] [id number] 2019-11-30 MCKRO [facility] 00:00:[address] [facility] Plan of Care Planned Activity Planned Date Details Comments Source Future Scheduled 2021-10-09 INFLUENZA VACCINE (#1) [facility] [code = INFLUENZA Medical Ce nter VACCINE (#1)] Future Scheduled 2021-02-[address] [facility] 00:00:00 (12+) [code = [facility] Center DEPRESSION SCREENING (12+)] Future Scheduled 2020-10-09 INFLUENZA VACCINE (#1) [facility] 00:00:00 [code = INFLUENZA Medical Ce nter VACCINE (#1)] Future Scheduled 2020-10-09 INFLUENZA VACCINE (#1) [facility] 00:00:00 [code = INFLUENZA Medical Ce nter VACCINE (#1)] Future Scheduled 2020-02-[address] [facility] 00:00:00 (12+) [code = Medical Center DEPRESSION SCREENING (12+)] Future Scheduled 2020-02-09 FALLS RISK SCREENING [facility] 00:00:00 [code = FALLS RISK Medical C enter SCREENING] Future Scheduled 2020-02-[address] [facility] 00:00:00 (12+) [code = Medical Center DEPRESSION SCREENING (12+)] Future Scheduled 2020-02-09 FALLS RISK SCREENING [facility] 00:00:00 [code = FALLS RISK Medical C enter SCREENING] Future Scheduled 2016-11-18 PNEUMOCOCCAL 65+ YRS [facility] 00:00:00 (2 - PPSV23 or PCV20) Medica l Center [code = PNEUMOCOCCAL 65+ YRS (2 - PPSV23 or PCV20)] Future Scheduled 2005-10-[address] [facility] 00:[facility]:00 WELLNESS (YEAR 2 or Medical Center FIRST YEAR if no IPPE) [code = MEDICARE ANNUAL WELLNESS (YEAR 2 or FIRST YEAR if no IPPE)] Future Scheduled 2005-10-[address] [facility] 00:00:00 WELLNESS (YEAR 2 or Medical Center FIRST YEAR if no IPPE) [code = MEDICARE ANNUAL WELLNESS (YEAR 2 or FIRST YEAR if no IPPE)] Future Scheduled 2005-10-[address] [facility] 00:00:00 WELLNESS (YEAR 2 or Medical Center FIRST YEAR if no IPPE) [code = MEDICARE ANNUAL WELLNESS (YEAR 2 or FIRST YEAR if no IPPE)] Future Scheduled 2004-10-28 PNEUMOCOCCAL 65+ YRS [facility] 00:00:00 (1 of 1 - Medical Center [id number] PCV13) [code = PNEUMOCOCCAL 65+ YRS (1 of 1 - [id number]_Pzkwpkh PCV13)] Future Scheduled 2004-10-28 PNEUMOCOCCAL 65+ Y[facility] 00:00:00 (1 of 1 - Medical Center [id number] PCV13) [code = PNEUMOCOCCAL 65+ YRS (1 of 1 - [id number]_Aqpruef PCV13)] Future Scheduled 1989-10-28 SHINGLES VACCINES ([address] [facility] 00:00:00 of 2) [code = SHINGLES Medic al Center VACCINES (1 of 2)] Future Scheduled 1989-10-28 SHINGLES VACCINES ([address] [facility] 00:00:00 of 2) [code = SHINGLES Medic al Center VACCINES (1 of 2)] Future Scheduled 1989-10-28 SHINGLES VACCINES ([address] [facility] 00:00:00 of 2) [code = SHINGLES Medic al Center VACCINES (1 of 2)] Future Scheduled 1958-10-28 DTAP/TDAP/TD [facility]ACCINES [facility] 00:00:00 (1 - Tdap) [code = Medical C enter DTAP/TDAP/TD VACCINES (1 - Tdap)] Future Scheduled 1958-10-28 DTAP/TDAP/TD [facility]ACCINES [facility] 00:00:00 (1 - Tdap) [code = Medical C enter DTAP/TDAP/TD VACCINES (1 - Tdap)] Future Scheduled 1958-10-28 DTAP/TDAP/TD VACCINES [facility] 00:00:00 (1 - Tdap) [code = Medical C enter DTAP/TDAP/TD VACCINES (1 - Tdap)] Future Scheduled 1951 COVID-19 VACCINE (1) [facility] 00:00:00 [code = COVID-[address] VACCINE (1)] Future Scheduled 1951 COVID-19 VACCINE (1) [facility] 00:00:00 [code = COVID-[address] VACCINE (1)] Future Scheduled 1940-04-27 COVID-19 VACCINE (#1) [facility]:00 [code = COVID-[address] VACCINE (#1)] Future Scheduled 1939 DXA SCAN [code = DXA [facility] 00:00:00 SCAN] [facility] Center Encounters Start End Encounter Admission Attending Care Care Encounter Source Date/Time Date/Time Type Type Clinicians Facility Department ID 2020-12-06 Emergency [facility] [id number] Univers 23:34:44 [facility] 2020-12-06 Emergency [facility] [id number] [facility] 2021-05-22 2021-05-22 Outpatient BRANDEN CunhaWU [id number] [facility] 08:09:00 08:09:00 Georgina Griggs [facility] 2021-04-21 2021-04-25 [facility] Donna Cunningham [facility] [id number] [facility] 09:06:00 14:09:00 Encounter Aba Glass-Lauren [facility] Julián Karthik [facility] 2021-04-21 2021-04-25 Inpatient [id number] [facility] 09:06:00 14:09:00 KARTHIK 2021-04-24 2021-04-24 Anesthesia Frank, [facility] [id number] 13:51:00 14:21:00 Event Elieser Han [facility] 2021-04-24 2021-04-24 Surgery Adrian, [facility] [id number] 13:00:00 13:30:00 [facility] 2021-04-21 2021-04-21 Surgery Ty, Luigi [facility] [id number] 11:00:00 11:39:00 [facility] 2021-04-21 2021-04-21 Travel [facility] [id number] [facility] 00:[facility] 00:00:00 [facility] 2021-01-22 2021-01-22 Letter Nurse, Davon WING [id number] Univers 00:00:00 00:00:00 (Out) Db Urgent HEALTH 350.1.13.10 ity of Care [place] 4.2.7.2.686 [place] as SAUNDRA?BLEA [phone] [address] 2021-01-21 2021-01-21 Telephone Nurse, Davon WING [id number] [facility] 00:00:00 00:00:00 Db HEALTH 350.1.13.10 it y of [place] 4.2.7.2.686 [place] as SAUNDRA?BLEA [id number] [address] 2021-01-18 2021-01-18 Letter GIORGI Barkley 1.2.840.114 [id number] Univers 00:00:00 00:00:00 (Out) Carmen Chappell DESEAN 350.1.13.10 it y of [facility] 4.2.7.2.686 [place] as [id number] [address] 2021-01-17 2021-01-17 Outpatient R REGIS [facility] [id number] Univers 15:30:00 15:30:00 ANA MARIA [facility] 2021-01-17 2021-01-17 Laboratory Only, Ang Db Test [facility] 1.2.8 40.114 [id number] Univers 15:13:32 15:28:32 [facility] 350.1.13.10 [facility] 4.2.7.2.686 [place] as SAUNDRA?BLEA [id number] [address] MEDICAL OFFICE BUILDING 2020-11-26 2020-12-07 Inpatient EL Arvind, [facility] [id number] [facility] 15:35:00 15:04:00 [place] 80 [facility] 2020-11-25 2020-11-25 Telephone Dale [facility] [id number] 00:00:00 00:00:00 [facility] 2020-11-21 2020-11-21 Outpatient EL Arvind, HCA[facility] 3DAY [id number] [facility] 09:00:00 09:00:00 [place] 56 [facility] 2020-11-21 2020-11-21 Outpatient EL Arvind, HCA[facility] 3DAY [id number] [facility] 09:00:00 09:00:00 [place] 56 [facility] 2020-09-17 2020-09-17 [facility] [id number] 00:00[facility]00 00:00:00 [facility] 2020-06-17 2020-06-17 [facility] [id number] 00:00:00 00:00:00 [facility] 2020-04-18 2020-04-18 Outpatient Joby SANCHEZ [facility] [id number] Univers 11:00:00 11:00:00 LEILANI [facility] 2020-02-25 2020-03-11 Inpatient HCAWU ELISHA [id number] [facility] 13:51:00 22:41:48 16 [facility] 2020-03-04 2020-03-04 Orders Doctor GIORGI 1.2.840.114 [id number] 00:00:00 00:00:00 Only Unassigned, DESEAN 350.1.13.10 [facility] 4.2.7.2.686 [id number] 2020-02-22 2020-02-22 Transition Zuhair Ragalnd 1.2.840.114 [id number] 00:00:00 00:00:00 of Care Lisa Oneal 350.1.13.10 [place]y 4.2.7.2.686 [id number] 2020-02-11 2020-02-21 Inpatient X HAIDER [facility] PETRA [id number] Univers 21:02:00 19:12:00 BASIL [facility] 2020-02-03 2020-02-08 Inpatient X MARRY [facility] MPU [id number] Univers 18:23:00 16:43:00 MEGHAN [facility] 2019-11-26 2020-01-03 Inpatient EM Adelaida, BRANDENWU INTE [id number] [facility] 20:52:00 13:10:00 Rashid 55 [facility] 2019-11-29 2019-11-29 Outpatient R [facility] [id number] Univers 09:40:00 09:40:00 [facility] 2019-11-25 2019-11-29 Inpatient MELVIN Anguaino, [facility] [id number] [facility] 07:00:00 00:24:27 Salim 32 [facility] 2019-11-17 2019-11-17 [id number] Univers 11:20:00 11:20:00 SANTOS [facility] 2019-08-04 2019-08-04 [facility] [id number] Univers 17:20:00 17:20:00 SANTOS [facility] Results Test Description Test Time Test Comments Results Result Comments Source SURGICAL 2021-05-23 13:27:00 Test Item Value Reference Range Interpretation Comme nts SURGICAL RUN DATE: (test 05/23/21 [facility] - LAB PAGE 1 RUN TIME: 1328 Specimen Inquiry RUN USER: INTERFACE code = PATIENT: JORGE A SHEIKH LOC: JOSE MANUEL U #: [id number] AGE/SX: 80/F ROOM: RE05/22/21[facility] DR: Emiliano Smith MD : 39 BED: DIS: STATUS: [facility] TLOC: SPEC #: [id number]:COCHRAN:[id number] RECD: 05/22/21-1 327 STATUS: SOUTa REQ #: [id number] KEENAN: 05/22/21- [address]: Georgina Smith MD ENTER ED: 05/22/21 SP TYPE: SURGICAL OTHR DR: Joe Higgins MD ORDERED: 12765/2, ANATOMIC SPEC, SPECIMEN TRAC K CODES: [id number] - RECTUM, NOS COPIES TO: Joe Higgins MD [address] [place] [address] Georgina Smith MD [facility] [address] [place], [place] [id number] PROCEDURES: [id number] (05/23/21-1326) SPECIMEN TRACK (05/22/21-1328) TISSUES: A. RECTUM, NOS - RE CTAL POLYP C. RECTUM, NOS - RECTAL BX FINAL DIAGNOSIS A. RECTUM, POLYPECTOMY: - Hyperplastic polyp. B. REC CRISTI, BIOPSY: - Colonic mucosa with hyperplastic changes. - No dysplasia. GROSS DESCRIPTION A. Rectal polyp. Single fragment measuring 3 mm, entirely submitted in A. B. Rectal biopsy. Three fragments miranda uring 1-2 mm, entirely submitted in B. Technical component performed at [id number], [place] [address] CONTINUED ON NEXT PAGE RUN DATE: 05/23/21 [place] - LAB PAGE 2 RUN TIME: 1328 Specimen Inquiry RUN USER: INTERFACE SPEC #: [id number]:COCHRAN:[id number] PATIENT: JORGE A SHERMAN #[id number] (Continued) MICROSCOPIC DESCRIPTION A and B. The diagnosis is base d upon microscopic examination. Signed SIGNATURE ON FILE Zhanna Israel 05/23/21 1327 END OF REPORT BASIC METABOLIC [id number] 08:12:00 Test Item Value Reference Range Interpretation Comments SODIUM (test code = 138 MMOL/L 137-145 N NA) POTASSIUM (test code = 4.6 MMOL/L 3.5-5.1 N K) CHLORIDE (test code = 108 MMOL/L 98-107 H CL) CARBON DIOXIDE (test 21 MMOL/L 22-30 L code = CO2) ANION GAP (test code = 14 MMOL/L 14-24 N GAP) GLUCOSE (test code = 69 MG/DL 74-106 L GLU) BLOOD UREA NITROGEN 21 MG/DL 7-17 H (test code = BUN) GLOMERULAR FILTRATION 48 Report ing units: RATE (test code = GFR) ml/mi n/1.73 m2 (Modified MDRD Formula)Referen ce Range: > or = 6 0 ml/min/1.73 m2 CREATININE (test code 1.10 MG/DL 0.52-1.04 H = CREAT) CALCIUM (test code = 9.2 MG/DL 8.4-10.2 N CA) PROTHROMBIN [id number] 07:51:00 Test Item Value Reference Range Interpretation Comments PROTHROMBIN TIME 18.5 SECONDS 9.4-12.7 H PATIENT (test code = PTP) INTERNATIONAL NORMAL 1.7 0.86-1.14 H The INR is to be RATIO (test code = used only for INR) monitoring oral anticoagulantth erap y. INDICATION I NR VALUE ---- ---- ---- -------1. Prophylaxis, de ep venous thrombos is, including high risk surgery. 2.0 - 3.0 2. Prophylaxis, deep venous thrombosis, hip surgery, treatm ent for deep venous thrombosis or pulmonary prevention of systemic emboli sm in patients wit h valvular heart disease, atrial fibrillation, tissue heart va lve, or acute myocar dial infarction. 2.0 - 3.0 3. Calender Roll Operator al prosthesis hear t valves, recurre nt systemic emboli sm. 3.0 - 4.5 PTT [id number] 07:51:00 Test Item Value Reference Range Interpretation Comments PTT ACTIVATED (test code = APTT) 32.7 SECONDS 26.2-35.4 N CBC W/AUTO [id number] 07:38:00 Test Item Value Reference Range Interpretation Comments WHITE BLOOD CELL (test code = 9.9 K/MM3 3.8-9.8 H WBC) RED BLOOD CELL (test code = 3.08 M/MM3 3.58-4.97 L RBC) HEMOGLOBIN (test code = HGB) 9.3 G/DL 11.2-14.9 L HEMATOCRIT (test code = HCT) 30.1 % 33.2-43.5 L MEAN CELL VOLUME (test code = 98 fL 80.7-99.1 N MCV) MEAN CELL HGB (test code = MCH) 30.2 pg 27.0-34.1 N MEAN CELL HGB CONCETRATION 30.9 % 32.2-35.7 L (test code = MCHC) RED CELL DISTRIBUTION WIDTH 16.6 % 12.1-15.2 H (test code = RDW) PLATELET COUNT (test code = 171 K/MM3 129-368 N PLT) MEAN PLATELET VOLUME (test code 10.2 fl 7.4-10.4 N = MPV) NEUTROPHIL % (test code = NT%) 67.7 % 43-75 N IMMATURE GRANULOCYTE % (test 0.6 % 0.0-2.0 N code = IG%) LYMPHOCYTE % (test code = LY%) 20.7 % 14-44 N MONOCYTE % (test code = MO%) 9.5 % 4-13 N EOSINOPHIL % (test code = EO%) 1.3 % 0-6 N BASOPHIL % (test code = BA%) 0.2 % 0-2 N NUCLEATED RBC % (test code = 0.0 % 0-1.0 N NRBC%) NEUTROPHIL # (test code = NT#) 6.70 K/mm3 2.0-7.6 N IMMATURE GRANULOCYTE # (test 0.06 x10 3/uL 0-0.03 H code = IG#) LYMPHOCYTE # (test code = LY#) 2.05 K/mm3 1.0-3.8 N MONOCYTE # (test code = MO#) 0.94 K/mm3 0.1-0.8 H EOSINOPHIL # (test code = EO#) 0.13 K/mm3 0.0-0.2 N BASOPHIL # (test code = BA#) 0.02 K/mm3 0.0-0.2 N NUCLEATED RBC # (test code = 0.00 K/mm3 0.0-0.1 N NRBC#) T3, [id number] 14:39:09 Test Item Value Reference Range Interpretation Comments T3 FREE (BEAKER) (test code = 908) See scan T3, [id number] 14:39:09T3, FreeComment: See scan [facility] [id number] 10:07:10 Test Item Value Reference Range Interpretation Comments Case Report (test code Surgical Pathology = 104) Report Case: [id number] Authorizing Provider: Haydee Campbell MD Collected: 04/24/2021 01:59 PM Ordering Location: [facility] ICU Received: 04/25/2021 09:01 AM Pathologist: Rosario Chirinos MD Specimen: Stomach, Antrum, Antrum Body bx DIAGNOSIS (test code = [id number] 3220) FuZzEwMzNcZnRuYmpcdWMx IHtccnRmMVxlcGljOTYwMV bmmuDhRWXfaRLtJ0Ytqemy RGnlSR2cSU8geXkewESlqW UyJHKbVwAip3pll146xXYa g5qoZUVBxwzkoBh0cRneM8 7oy7F4AgdiH27xcGGaLDS1 IPHyJLMlgFToEOHuBDE1XA XdkFCqZ2ifJNAuEN1orwnl SKpxYEdgPYBwbFB5HUKdlP XmY1YpXZBlIAssRTEaamz6 WeSlEe7hgQZdiRqdPBchPQ NtEJSlHRxqNDMbFvMhL6QE GLTTQGhvCA2QHnELXBHrTS 2JY9BHE7KSNzQCXK7FI9j8 ZCDtfoXwQM0rKVKNNg8KLA MgIEFDVElWRSBHQVNUUklU JCDtG5zFBTSZZ0AEXEHVBj 9OIQ5VIYZWGRHrZW0WZIFK CH1AEMHXEJXNQAyBA1kEEP HqyvVzZW5zOSLHMYIWLIGT IEFUWVBJQVxwYXIgICAtIC NMAgVDPHILEXPIDPIyQ6Ha JOXDFDzNVG9AOARUPOCYEP xwYXIgICAtICBOTyBIRUxJ D15OSDVGLVGlXCsHD6JXEX 8ZX0CQJIKLAoPWMHYSVY9R KFjTOFAZQ6vAQ3PCX0vJNX dGBFftA5OSAF9bcCXqoPko zwXyLXzlh2DjARvbRJTfTU 9dwYqzXBJsCP1zEWBvF7ez dA3jpgs0ZzVrBNXjOwG8KH EpndY3Dxy5NVAiHYsdd7li g0DkUKMiCHj5xLewHjTaPA Vho0hdpaRoLqXjYLWiHAFo GBTbgBPcA129c9ztg0smbv MprRT8CXFdHNB8WVjfaxLu ugK3NVfzvIQkLvS9BSpvbt XqOMukkhWucyRtAen3IKPf A246EUN8hTbtn3azKWI9XA YbAZGfCdXvLm1eiBDgT813 UIVaUYQXPQKvlBn4DGOyss PfojAoeICTr999Z552e4zg SKLmiqFzdNiZqcyqb7uwS2 19XHBhcGVydzEyMjQwXHBh eJCkwOH8QGEzOM6vkkovRY alFToeRLWnjyN5QCHnwCIr R5JgDAQjBU6zhqooGRA6SM xqGUYtNRZ1WlFaGXWnb1Ni dge1QfZrzf0hql49GWV3e6 ZzzHnaNCC0GXZ6WdZnQi2r jITiDHZgPR8xYnCppHEgBV Udzx29uKufEIejOJD8THGy cjFtl5Yzt2cyOtOnbsOiP3 cgB6KeTQZbFBBnQMSqReEv pgMnd2Tah5MfuTCkqVy5j9 yuEXRpURGdmEare9tiXXA1 IZKcfRAaB3iiyF9sDRSrYC 1pttcil8vbPVksQDqkSTOf bND7sxO9KWScyFHvQ2IibR 3vTJApXDwxFAIfhfe0KqHs Nx1rfYLfeRxzDCqvAwhiBF dlXHBnbmNvbnRccGduZGVj XHBsYWluXHBsYWluXGYwXG ZzMjRccWxcbGFuZzEwMzNc aGljaFxmMVxkYmNoXGYxXG spK9muTuGoHgEpXbj1NTJu rDDmLPVuEjv0YDOkuQGuKY ADtVzcrI5tLHDkkDhehW1e sPP7VMFklvVrvLBNjH0jRV IQuM8cVtP5FuPmWoS1OXL1 MjlccGFyfX0= CPT Code(s) (test code b3igwXTbEKJudHR4FtDkLI = 3357) Slq4bwa8AocGSrnJDuVTpe jBUxasBgtx82dPF6bK89LY 6mPKHkVcR4TMVwtpE3Aag9 HTFvKVIunOUhL129q7tjc7 dtxbKznQB1sRhhMCIyappd EoN4BOofIRIazvtsZVj2LG lwEKWuwWY8OIUeoOMhY4Of VXVfBN7vqby1KAX3LFddNM SiSlD5BTUgxKNnACWohUkl BHjjt962GDX7ZvIzDJUyhw FnmHpmtH6tLmRvHEY3KWZp NTsgODgzNDJccGFyfQ== CLINICAL HISTORY (test q6whuRXwIWTcvIZ0YwKtXF code = 3356) Vwv0xya4IdsIPgdHCxJJlh iWVvvtWtsb84yOW3vB63LM 1xWYXgGzD7SDKdpxZ2Zkg5 ZPVpFVWrqWOqG923k0jtx1 qdpqBijYZ7yCcbMGIuvqlq YxV0GGbvKDMobgemWZj7XR pdJCQxfGX9RRZqdBDdC6Dd EXRdJW4vgld9OEZ3DUbjSX VdHpG3UTBbkFZzNPXojMiu BWngc930XZF4RvVsTFHgnl VcvRrptT4fJsFzNWJEwPPi VQ1ldZXfzA== SPECIMEN SOURCE (test e0uhfAAxFHVqcWT3FtStQF code = 3377) Vxl8cip9XvoZWkfQOlOZdt fVCohrCqki82zJH7zD38SM 5qKGIiGmK0OUXzagQ4Uhz9 HWJpOSLdqXKkU365j1bba5 sbekXrjKC7rUxiQCRmmpvz VjH9EArjROGxummgCIa4YE tbFPUcoDC7YMXudDKaG0Zn RDAqIW1fljl1EBT2UEqaPQ ZpPnT6OSQvnNZmTUNbhOuv SDhtj474XTD9AfKhNRDqic CvtKdknY6vEvFmJGSLnW5m YWNoIFxwYXJ9 GROSS DESCRIPTION (test r0udvZVmNDDipRT5OqLvHP code = 3366) Ijr7uqm1VgaOFdlDYrRDxm sPVcqaBnsf67pAU6nQ51NL 5lQYXyZwH0JNAmklG4Ubk2 WJGuEBMzpZMbY859m4ufq1 kayxTiiWY8cGtcEWJetoos EuT8EQkjHSBrzugcPTz6AT lbTWNyuLE7PDVmxUHhV0Zc RZIpPZ4cgmj1VDD4QRduPS HwBwQ8YUEgfTKjGZUljLxy XVypi983PFY9TiSwQRAipy MocZrvwT9rTeJwBPCZGJUv kOJrQCYpwzCwd7FaLCqotf BsYWJlbGVkIHdpdGggdGhl IHBhdGllbnQncyBpbmZvcm 1hdGlvbiBhbmQgbGFiZWxl DJLbw5AaxSVqmOHaxqJrlX 6fBYsiWYCxp4gwW1unBJMq rh55cEg8HTKkdYFwWMZlQa Z4dTRyiCUxqIXfz5HsaY3c IDAuMyBjbSBpbiBtYXhpbX UhCVZjnIMpt2amxxSybCVu xSX9SRPgXQ76vKWumZurvO LaQVgsLMIvMKEoQZW8JKGY FdHWFE3pv4gbPAV5 MICROSCOPIC DESCRIPTION h7cydEUeESJsyRI1ZvWiMT (test code = 3371) Wuy8wgi1FknFVcvPKjTUkl tLXywhDeoa37sEO7gC29RW 3mRSKsXeF6LTZjwoF3Jrh6 EVVrIBTztZNoI792a0dbi1 jvcvSnuYU9bWbuTBScvyvj AnA4XTzzMMKdxkwrFSl0CH exEVUauGC4XLBvgSBlT6Wv FONpVV2nlpd7HWG8UWntXM SxHnS5ZJZvuLKzLHIloMgk ZOcoy800NXQ6YeNsAXBeyq IgpBvtyL1tYsYdVOXJAQWJ N6MVHICorUVumU== SPECIAL STUDIES (test z6cqhQXhZJQsqUV5YlIrSI code = 3376) Chk9yyi0NalWTlmSHsDTbn fSEgzfMprw03pJG3cY82UT 4wKQTqJoR9NXTfwbA2Toy8 JFJhABYwkZJyV375t2mqi1 rnhhEgbWW1kRebEWMntiea MeL8LFqqZPAwutkdATq0YA zkRDWjdVS7DESqvRJwA5Nx JHVrNK1zprt0EAO2NGpdAV AaGbZ5VPZgtQBsLTUodVmf TZuqh575GEQ9XaBhJQSnch HlqHcruK9qIqEfEQHSnVCr rF63DGZioxN5HCVks81yv6 ImzKzhjfUjDKFwUFscP2e0 PFMwQXKdQZQ0d5Eyl2ZsqM 4okR4dcVoyaT1tmTBwdPH3 rrlzk2Kiu5AnJ4dcsWHfeG FpbnMuXHBhclx+SEVMSUNP DlPXBRPJGIPWTC3TGIzvSO NpRE9nsE3sdTynzR6dzNEl iSM2rspgbGNloM2vW1EdGI Vit8Buffwij9MnGYVtgjDl rm9zKFZfeCKTLVssm7AcP1 QzNWc5g2YavDmnDNefDIp9 WwJiYTQstCFasWAPFP59NF LoMZVrvVmcqU9dzAULIRXb toG0m3O8CZsfTSKvWTy5DT eisfOnAHAsfK0xTLGrZX5d OYh7pxOiTVNov1ZhOT6nBD NoiEQeNJX6IQRxf4FiW3Vz n3CfAYLfLWMpqw7cjaHyGo EFjYSaOEJgkn04XSLwSI9o A1uaCXLnVUPzfcMauCLuf8 DdZKEbzNY4tCLmFI1HFwHN y72sTOJpZFUGxzKhDPRreH yzcZV4vaV0eG6fBsQBmTHj QlARFWjgurQdWNYfns5nbv CtIDUwMSUez3WiyZKamRMd ryDqM0Qhq4MaMIQfpa96FY fezOFksv61HA2aY7Xpj4Ei hZ5xSGyuFGVja5VeaESpdA XdODGhr1AxU9fashthPMvu rSRfuM0yHTAlSXb1WQIiy0 DjCOVgm8TpZaJmaiVzOCVn TXQhPARncR97DKA0fEkmwR ftklRxZJ6uLVDmuhSiFIIl GWZrhK4pRKfxtwGpRXRyhr J1l0Z5BQpePTTtpmDkWoxg YID2kbGwupE7qOIeO5toaj hhUIrsDRGqg7ClxR9xrFHY zNDit7SoeMCprXYEmNSlVQ 7vscXsTR4kDOI9BTrmGIAR DDAgPHsxUBHbSKD1PRemLp buUBY5uqSjEDEwj2RiPAtd Y8vrM29mcZvtzGl3xYRwyQ bhoQDjqMVdQZSfpjZ6y1R9 WXRwg5EbwpckCUAvzoakQK JcfiBccGFyfQ== [facility] CenterTISS[facility] [id number] 10:07:10Surgical Pathology Report Case: [id number] Authorizing Provider: Haydee Campbell MD Collected: 04/24/2021 01:59 PM Ordering Location: [facility] ICU Received: 04/25/2021 09:01 AM Pathologist: Rosario Chirinos MD Specimen: Stomach, Antrum, Antrum Body bx STOMACH, ANTRUM, ENDOSCOPIC BIOPSY: - 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 BH/ewPERFORMEDThe interpretation of this case included the use of immunohistochemistry or special stains. HELICOBACTER PYLORIImmunohistochemistry technical testing was performed at [facility], Pathology Laboratory where it was developed andits performance characteristics were determined. It has not been cleared or approved by the U.S. Food and Drug Administration. The FDA has determined that such clearance or approval is not necessary. The test is used for clinical purposes. It should not be regarded as investigational or for research. This laboratory is certified under the Clinical Laboratory Improvement Amendments of 1988 (CLIA-88) as qualified to perform high complexity clinical laboratory testing.Blood Culture - Routine (Left Venipuncture)2021-04-26 22:01:12 Test Item Value Reference Range Interpretation Comments Result (test code = No growth in 5 days 6463-4) [id number]:01:12 Test Item Value Reference Range Interpretation Comments CULTURE (BEAKER) (test No growth in 5 days code = 1095) BLOOD [id number] 16:01:30 Test Item Value Reference Range Interpretation Comments CULTURE (BEAKER) (test No growth in 5 days code = 1095) Basic Metabolic [id number] 06:18:59 Test Item Value Reference Range Interpretation Comments Sodium (test code = 138 meq/L 531-506 1806-2) Potassium (test code = 4.4 meq/L 3.6-5.5 2823-3) Chloride (test code = 105 meq/L 98-106 2075-0) CO2 (test code = 22 meq/L 20-29 8-9) BUN (test code = 38 mg/dL 10-26 H 3094-0) Creatinine (test code 1.87 mg/dL 0.50-1.20 H = 2160-0) Glucose (test code = 90 mg/dL 70-110 2345-7) Calcium (test code = 8.5 mg/dL 8.5-10.5 90895-7) EGFR (test code = 26 mL/min/1.73 [place] [address]-0) NOT ACCURATE CREATININE CLEARANCE IN PREDICTING GLOMERULAR FILTRATION RATE . ESTIMATED GFR I S NOT APPLICABLE FOR DIALYSIS PATIENTS. HONG (test code = HONG) Carpet Cutter ID - [id number] ID - [id number] ID - [id number] ID - [id number] ID - [id number] ID - [id number] ID - [id number] ID - [id number] ID - [id number] ID - [id number] ID - [id number] ID - [id number] ID - [id number] Lab Interpretation Abnormal (test code = 72944-2) [facility] METABOLIC [id number] 06:18:59 Test Item Value Reference Range Interpretation Comments SODIUM (BEAKER) 138 meq/L 135-148 (test code = 381) POTASSIUM (BEAKER) 4.4 meq/L 3.6-5.5 (test code = 379) CHLORIDE (BEAKER) 105 meq/L 98-106 (test code = 382) CO2 (BEAKER) (test 22 meq/L 20-29 code = 355) BLOOD UREA NITROGEN 38 mg/dL 10-26 H (BEAKER) (test code = 354) CREATININE (BEAKER) 1.87 mg/dL 0.50-1.20 H (test code = 358) GLUCOSE RANDOM 90 mg/dL 70-110 (BEAKER) (test code = 652) CALCIUM (BEAKER) 8.5 mg/dL 8.5-10.5 (test code = 697) EGFR (BEAKER) (test 26 mL/min/1.73 ESTIMA MITZI GFR IS code = 1092) sq m NOT ACCURATE CREATININE CLEARANCE IN PREDICTING GLOMERULAR FILTRATION RATE . ESTIMATED GFR I S NOT APPLICABLE FOR DIALYSIS PATIEN TS. Carpet Cutter ID - FIVC19Lingngtr ID - UTBR09Noafbqpt ID - SUJJ88Wpppzarz ID - SVSA27Cjjgwjcm ID - WDNW78Jeplhreg ID - LBYZ75Fmaohjac ID - YJGF35Ljllhgsl ID - TJNA93Oirbigha ID - TENI93Vwskpwzd ID - MHHD23Clgylcbx ID - AIIT80Ntyubefw ID - ROFJ34Gauisdaq ID - JVFQ80Zyash Prothrombin time/INR while on yebqahdi2442-61-08 06:17:27 Test Item Value Reference Interpretation Comments Range Protime (test code = 14.3 See_Comment H Final 5902-2) Information (Auto Output) [Automated message] The system which generated this result transmitted reference range : 9.3 - 12.0 seconds. The reference range was not used to interpret this result as normal/abnormal . INR (test code = 1.33 See_Comment Final 6301-6) Information (Auto Output) [Automated message] The system which generated this result transmitted reference range : <=5.90. The reference range was not used to interpret this result as normal/abnormal . HONG (test code = RECOMMENDED HONG) COUMADIN/WARFARIN INR THERAPY RANGESSTANDARD DOSE: 2.0 - 3.0 Includes: PROPHYLAXIS for venous thrombosis, systemic embolization; TREATMENT for venous thrombosis and/or pulmonary embolus.HIGH RISK: Target INR is 2.5-3.5 for patients with mechanical heart valves. Lab Interpretation Abnormal (test code = 31785-7) [facility]/[id number] 06:17:27 Test Item Value Reference Range Interpretation Comments PROTIME (BEAKER) 14.3 seconds 9.3-12.0 H Final Infor mation (test code = 759) (Auto Outp ut) INR (BEAKER) (test 1.33 See_Comment Final Inf ormation code = 370) (Auto Output) [Automated mess age] The system ic h generated this result transmitted ref erence range: <=5.90. The reference range was not used to int erpret this result as normal/abnormal . RECOMMENDED COUMADIN/WARFARIN INR THERAPY RANGESSTANDARD DOSE: 2.0 - 3.0 Includes: PROPHYLAXIS for venous thrombosis, systemic embolization; TREATMENT for venous thrombosis and/or pulmonary embolus.HIGH RISK: Target INR is 2.5-3.5 for patients with mechanical heart valves.CBC with platelet count + automated [id number] 06:00:36 Test Item Value Reference Range Interpretation Comments WBC (test code = 6690-2) 10.1 See_Comment H [A utomated message] The system [employer] generated this result transmitted ref erence range: 4.0 - 10 .0 K/L. The refe rence range was not u sed to interpret this result as normal/abnor mal. RBC (test code = 789-8) 3.55 See_Comment L [Au tomated message] The system [employer] generated this result transmitted ref erence range: 4.00 - 5 .00 M/L. The refe rence range was not u sed to interpret this result as normal/abnor mal. MCHC (test code = 786-4) 33.3 See_Comment L [A utomated message] The system [employer] generated this result transmitted ref erence range: 32.0 - 3 6.0 GM/DL. The refe rence range was not u sed to interpret this result as normal/abnor mal. Hematocrit (test code = 33.0 % 36.0-46.0 L 4544-3) MCV (test code = 787-2) 93.0 fL 82.0-99.0 MCH (test code = 785-6) 31.0 pg 27.0-33.0 RDW (test code = 788-0) 15.5 % 12.0-15.0 H Platelets (test code = 164 See_Comment [Aut omated message] 777-3) The system [employer] generated this result transmitted ref erence range: 150 - 43 0 K/CU MM. The referen ce range was not u sed to interpret this result as normal/abnor mal. MPV (test code = 11.1 fL 6.0-11.5 17643-9) nRBC (test code = 413) 0 See_Comment [Aut omated message] The system [employer] generated this result transmitted ref erence range: 0 - 0 /1 00 WBC. The refere nce range was not u sed to interpret this result as normal/abnor mal. % Neutros (test code = 67 % 429) % Lymphs (test code = 18 % 430) % Monos (test code = 11 % 431) % Eos (test code = 432) 4 % % Baso (test code = 437) 0 % # Neutros (test code = 6.77 See_Comment [Aut omated message] 670) The system [employer] generated this result transmitted ref erence range: 1.80 - 8 .00 K/L. The refe rence range was not u sed to interpret this result as normal/abnor mal. # Lymphs (test code = 1.76 See_Comment [Auto mated message] 414) The system [employer] generated this result transmitted ref erence range: 1.48 - 4 .50 K/L. The refe rence range was not u sed to interpret this result as normal/abnor mal. # Monos (test code = 1.08 See_Comment [Autom ated message] 415) The system [employer] generated this result transmitted ref erence range: 0.00 - 1 .30 K/L. The refe rence range was not u sed to interpret this result as normal/abnor mal. # Eos (test code = 416) 0.40 See_Comment [Au tomated message] The system [employer] generated this result transmitted ref erence range: 0.00 - 0 .50 K/L. The refe rence range was not u sed to interpret this result as normal/abnor mal. # Baso (test code = 417) 0.04 See_Comment [A utomated message] The system [employer] generated this result transmitted ref erence range: 0.00 - 0 .20 K/L. The refe rence range was not u sed to interpret this result as normal/abnor mal. Immature 0 % 0-0 Granulocytes-Relative (test code = 2801) Lab Interpretation (test Abnormal code = 77399-9) [facility] W/PLT COUNT & AUTO [id number] 06:00:36 Test Item Value Reference Range Interpretation Comments WHITE BLOOD CELL COUNT (BEAKER) 10.1 K/ L 4.0-10.0 H (test code = 775) RED BLOOD CELL COUNT (BEAKER) 3.55 M/ L 4.00-5.00 L (test code = 761) HEMOGLOBIN (BEAKER) (test code = 11.0 GM/DL 12.0-15.5 L 410) HEMATOCRIT (BEAKER) (test code = 33.0 % 36.0-46.0 L 411) MEAN CORPUSCULAR VOLUME (BEAKER) 93.0 fL 82.0-99.0 (test code = 753) MEAN CORPUSCULAR HEMOGLOBIN 31.0 pg 27.0-33.0 (BEAKER) (test code = 751) MEAN CORPUSCULAR HEMOGLOBIN CONC 33.3 GM/DL 32.0-36.0 (BEAKER) (test code = 752) RED CELL DISTRIBUTION WIDTH 15.5 % 12.0-15.0 H (BEAKER) (test code = 412) PLATELET COUNT (BEAKER) (test 164 K/CU MM 150-430 code = 756) MEAN PLATELET VOLUME (BEAKER) 11.1 fL 6.0-11.5 (test code = 754) NUCLEATED RED BLOOD CELLS 0 /100 WBC 0-0 (BEAKER) (test code = 413) NEUTROPHILS RELATIVE PERCENT 67 % (BEAKER) (test code = 429) LYMPHOCYTES RELATIVE PERCENT 18 % (BEAKER) (test code = 430) MONOCYTES RELATIVE PERCENT 11 % (BEAKER) (test code = 431) EOSINOPHILS RELATIVE PERCENT 4 % (BEAKER) (test code = 432) BASOPHILS RELATIVE PERCENT 0 % (BEAKER) (test code = 437) NEUTROPHILS ABSOLUTE COUNT 6.77 K/ L 1.80-8.00 (BEAKER) (test code = 670) LYMPHOCYTES ABSOLUTE COUNT 1.76 K/ L 1.48-4.50 (BEAKER) (test code = 414) MONOCYTES ABSOLUTE COUNT (BEAKER) 1.08 K/ L 0.00-1.30 (test code = 415) EOSINOPHILS ABSOLUTE COUNT 0.40 K/ L 0.00-0.50 (BEAKER) (test code = 416) BASOPHILS ABSOLUTE COUNT (BEAKER) 0.04 K/ L 0.00-0.20 (test code = 417) IMMATURE GRANULOCYTES-RELATIVE 0 % 0-0 PERCENT (BEAKER) (test code = 2801) POC-Glucose fdtmp5722-69-18 16:56:50 Test Item Value Reference Range Interpretation Comments POC-Glucose Meter (test 127 mg/dL 70-110 H : [facility] STED AT [facility] code = 1538) [facility] [address]: Carpet Cutter/Techni thang ID = [id number] for Ali, Archell Lab Interpretation (test Abnormal code = 66850-5) [facility] [id number] 16:56:50 Test Item Value Reference Range Interpretation Comments POC-GLUCOSE METER 127 mg/dL 70-110 H : TESTED A T [facility] [address] (BEAKER) (test code [address], = 1538) [place] [address]: Carpet Cutter/Techni thang ID = [id number] for Rachell Qiu POCT-GLUCOSE [id number] 11:31:44 Test Item Value Reference Range Interpretation Comments POC-GLUCOSE METER 89 mg/dL 70-110 : TESTED A T [address] (BEAKER) (test code = [address], [address]) [place] [address]: Carpet Cutter/Techni thang ID = [id number] for Rachell Qiu POCT-GLUCOSE [id number] 09:15:32 Test Item Value Reference Range Interpretation Comments POC-GLUCOSE METER 123 mg/dL 70-110 H : TESTED A T [address] (BEAKER) (test code [address], = 1538) [place] [address]: Carpet Cutter/Techni thang ID = [id number] for NELI SAUCEDAMI POCT-GLUCOSE [id number] 08:20:41 Test Item Value Reference Range Interpretation Comments POC-GLUCOSE METER 67 mg/dL 70-110 L : TESTED A T [address] (BEAKER) (test code = [address], 1538) [place] [address]: Carpet Cutter/Techni thang ID = [id number] for Rachell Qiu Pfavazktw2049-78-51 04:25:58 Test Item Value Reference Range Interpretation Comments Magnesium (test code 1.8 mg/dL 1.5-3.0 = 64050-4) HONG (test code = HONG) Carpet Cutter ID - NSUVAGIYAOperator ID - NSUVAGIYAOperator ID - NSUVAGIYAOperator ID - NSUVAGIYA Lab Interpretation Normal (test code = 33982-9) [facility] 04:25:58 Test Item Value Reference Range Interpretation Comments MAGNESIUM (BEAKER) (test code = 1.8 mg/dL 1.5-3.0 627) Carpet Cutter ID - NSUVAGIYAOperator ID - NSUVAGIYAOperator ID - NSUVAGIYAOperator ID - NSUVAGIYABASIC METABOLIC [id number] 04:25:05 Test Item Value Reference Range Interpretation Comments SODIUM (BEAKER) 138 meq/L 135-148 (test code = 381) POTASSIUM (BEAKER) 4.3 meq/L 3.6-5.5 (test code = 379) CHLORIDE (BEAKER) 104 meq/L 98-106 (test code = 382) CO2 (BEAKER) (test 24 meq/L 20-29 code = 355) BLOOD UREA NITROGEN 49 mg/dL 10-26 H (BEAKER) (test code = 354) CREATININE (BEAKER) 2.16 mg/dL 0.50-1.20 H (test code = 358) GLUCOSE RANDOM 85 mg/dL 70-110 (BEAKER) (test code = 652) CALCIUM (BEAKER) 8.1 mg/dL 8.5-10.5 L (test code = 697) EGFR (BEAKER) (test 22 mL/min/1.73 ESTIMA MITZI GFR IS code = 1092) sq m NOT ACCURATE CREATININE CLEARANCE IN PREDICTING GLOMERULAR FILTRATION RATE . ESTIMATED GFR I S NOT APPLICABLE FOR DIALYSIS PATIEN TS. Carpet Cutter ID - NSUVAGIYAOperator ID - NSUVAGIYAOperator ID - NSUVAGIYAOperator ID - NSUVAGIYAOperatorID - NSUVAGIYAOperator ID - NSUVAGIYAOperator ID - NSUVAGIYAOperator ID - NSUVAGIYAOperator ID - NSUVAGIYAOperator ID - NSUVAGIYA Hylohdrmyt5311-25-44 04:23:13 Test Item Value Reference Range Interpretation Comments Phosphorus (test code = 3.5 mg/dL 2.5-4.5 2777-1) HONG (test code = HONG) Carpet Cutter ID - NSUVAGIYA Lab Interpretation (test Normal code = 47100-5) [facility] 04:23:13 Test Item Value Reference Range Interpretation Comments PHOSPHORUS (BEAKER) (test code = 3.5 mg/dL 2.5-4.5 604) Carpet Cutter ID - NSUVAGIYAPROTHROMBIN TIME/[id number] 04:18:34 Test Item Value Reference Range Interpretation Comments PROTIME (BEAKER) 14.9 seconds 9.3-12.0 H Final Infor mation (test code = 759) (Auto Outp ut) INR (BEAKER) (test 1.39 See_Comment Final Inf ormation code = 370) (Auto Output) [Automated mess age] The system [employer] generated this result transmitted ref erence range: <=5.90. The reference range was not used to int erpret this result as normal/abnormal . RECOMMENDED COUMADIN/WARFARIN INR THERAPY RANGESSTANDARD DOSE: 2.0 - 3.0 Includes: PROPHYLAXIS for venous thrombosis, systemic embolization; TREATMENT for venous thrombosis and/or pulmonary embolus.HIGH RISK: Target INR is 2.5-3.5 for patients with mechanical heart valves.CBC W/PLT COUNT & AUTO [id number] 04:14:40 Test Item Value Reference Range Interpretation Comments WHITE BLOOD CELL COUNT (BEAKER) 11.3 K/ L 4.0-10.0 H (test code = 775) RED BLOOD CELL COUNT (BEAKER) 3.47 M/ L 4.00-5.00 L (test code = 761) HEMOGLOBIN (BEAKER) (test code = 10.6 GM/DL 12.0-15.5 L 410) HEMATOCRIT (BEAKER) (test code = 32.3 % 36.0-46.0 L 411) MEAN CORPUSCULAR VOLUME (BEAKER) 93.1 fL 82.0-99.0 (test code = 753) MEAN CORPUSCULAR HEMOGLOBIN 30.5 pg 27.0-33.0 (BEAKER) (test code = 751) MEAN CORPUSCULAR HEMOGLOBIN CONC 32.8 GM/DL 32.0-36.0 (BEAKER) (test code = 752) RED CELL DISTRIBUTION WIDTH 15.4 % 12.0-15.0 H (BEAKER) (test code = 412) PLATELET COUNT (BEAKER) (test 135 K/CU MM 150-430 L code = 756) MEAN PLATELET VOLUME (BEAKER) 10.6 fL 6.0-11.5 (test code = 754) NUCLEATED RED BLOOD CELLS 0 /100 WBC 0-0 (BEAKER) (test code = 413) NEUTROPHILS RELATIVE PERCENT 74 % (BEAKER) (test code = 429) LYMPHOCYTES RELATIVE PERCENT 15 % (BEAKER) (test code = 430) MONOCYTES RELATIVE PERCENT 8 % (BEAKER) (test code = 431) EOSINOPHILS RELATIVE PERCENT 2 % (BEAKER) (test code = 432) BASOPHILS RELATIVE PERCENT 1 % (BEAKER) (test code = 437) NEUTROPHILS ABSOLUTE COUNT 8.28 K/ L 1.80-8.00 H (BEAKER) (test code = 670) LYMPHOCYTES ABSOLUTE COUNT 1.72 K/ L 1.48-4.50 (BEAKER) (test code = 414) MONOCYTES ABSOLUTE COUNT (BEAKER) 0.94 K/ L 0.00-1.30 (test code = 415) EOSINOPHILS ABSOLUTE COUNT 0.22 K/ L 0.00-0.50 (BEAKER) (test code = 416) BASOPHILS ABSOLUTE COUNT (BEAKER) 0.06 K/ L 0.00-0.20 (test code = 417) IMMATURE GRANULOCYTES-RELATIVE 1 % 0-0 H PERCENT (BEAKER) (test code = 2801) Prepare Leuko-Red [id number] 23:54:00 Test Item Value Reference Range Interpretation Comments CROSSMATCH (test code = 2264) COMPATIBLE Unit ABO (test code = O Pos 9167444) UNIT NUMBER (test code = [id number] 934-0) Status (test code = 3838860) [facility] Product (test code RED BLOOD CELLS = 2263) PRODUCT CODE (test code = [id number] 933-2) [facility] [id number] 20:34:46 Test Item Value Reference Range Interpretation Comments POC-GLUCOSE METER 103 mg/dL 70-110 : TESTED A T [address] (BEAKER) (test code [address] [facility], = 1538) [facility] [address]: Carpet Cutter/Techni thang ID = [id number] for Zave r Zubeda POCT-GLUCOSE [id number] 16:09:35 Test Item Value Reference Range Interpretation Comments POC-GLUCOSE METER 83 mg/dL 70-110 : Notified RN/MD: TESTED (BEAKER) (test code = [address]) [facility] [address]: Carpet Cutter/Techni thang ID = [id number] for Michael h, Lorita POCT-GLUCOSE [id number] 12:51:37 Test Item Value Reference Range Interpretation Comments POC-GLUCOSE METER 96 mg/dL 70-110 : Notified RN/MD: TESTED (BEAKER) (test code = [address]) [facility] [address]: Carpet Cutter/Techni thang ID = [id number] for Maribell Bridges POCT-GLUCOSE [id number] 08:09:55 Test Item Value Reference Range Interpretation Comments POC-GLUCOSE METER 73 mg/dL 70-110 : Notified RN/MD: TESTED (BEAKER) (test code = [address]) [facility] [address]: Carpet Cutter/Techni thang ID = [id number] for Shirlene Bridgesita BASIC METABOLIC [id number] 04:38:00 Test Item Value Reference Range Interpretation Comments SODIUM (BEAKER) 137 meq/L 135-148 (test code = 381) POTASSIUM (BEAKER) 4.4 meq/L 3.6-5.5 (test code = 379) CHLORIDE (BEAKER) 98 meq/L 98-106 (test code = 382) CO2 (BEAKER) (test 27 meq/L 20-29 code = 355) BLOOD UREA NITROGEN 51 mg/dL 10-26 H (BEAKER) (test code = 354) CREATININE (BEAKER) 2.50 mg/dL 0.50-1.20 H (test code = 358) GLUCOSE RANDOM 89 mg/dL 70-110 (BEAKER) (test code = 652) CALCIUM (BEAKER) 8.9 mg/dL 8.5-10.5 (test code = 697) EGFR (BEAKER) (test 18 mL/min/1.73 ESTIMA MITZI GFR IS code = 1092) sq m NOT ACCURATE CREATININE CLEARANCE IN PREDICTING GLOMERULAR FILTRATION RATE . ESTIMATED GFR I S NOT APPLICABLE FOR DIALYSIS PATIEN TS. Carpet Cutter ID - MCPL30Svazignq ID - ONID33Kphyasnf ID - XSJO81Xvuicvus ID - PMSU14Bdjtbkso ID - OCUT42Hmxflqdc ID - FGHR38Wkuymzlw ID - MULD92Opozddrn ID - CFFS90Yojjzqac ID - THVH54Pgfljixt ID - WLEB03SEHZPXNCT9860-98-78 04:32:32 Test Item Value Reference Range Interpretation Comments MAGNESIUM (BEAKER) (test code = 2.5 mg/dL 1.5-3.0 627) Carpet Cutter ID - LJQS15Ifkbgznd ID - YRXZ93Gngfqkbe ID - HLAN26Jlkjsath ID - ZNMP04 KSFDYTAXKS2675-81-53 04:29:33 Test Item Value Reference Range Interpretation Comments PHOSPHORUS (BEAKER) (test code = 4.1 mg/dL 2.5-4.5 604) Carpet Cutter ID - [id number] TIME/[id number] 04:25:29 Test Item Value Reference Range Interpretation Comments PROTIME (BEAKER) 15.6 seconds 9.3-12.0 H Final Infor mation (test code = 759) (Auto Outp ut) INR (BEAKER) (test 1.46 See_Comment Final Inf ormation code = 370) (Auto Output) [Automated mess age] The system [employer] generated this result transmitted ref erence range: <=5.90. The reference range was not used to int erpret this result as normal/abnormal . RECOMMENDED COUMADIN/WARFARIN INR THERAPY RANGESSTANDARD DOSE: 2.0 - 3.0 Includes: PROPHYLAXIS for venous thrombosis, systemic embolization; TREATMENT for venous thrombosis and/or pulmonary embolus.HIGH RISK: Target INR is 2.5-3.5 for patients with mechanical heart valves.CBC W/PLT COUNT & AUTO [id number] 04:17:28 Test Item Value Reference Range Interpretation Comments WHITE BLOOD CELL COUNT (BEAKER) 12.7 K/ L 4.0-10.0 H (test code = 775) RED BLOOD CELL COUNT (BEAKER) 3.54 M/ L 4.00-5.00 L (test code = 761) HEMOGLOBIN (BEAKER) (test code = 10.9 GM/DL 12.0-15.5 L 410) HEMATOCRIT (BEAKER) (test code = 32.7 % 36.0-46.0 L 411) MEAN CORPUSCULAR VOLUME (BEAKER) 92.4 fL 82.0-99.0 (test code = 753) MEAN CORPUSCULAR HEMOGLOBIN 30.8 pg 27.0-33.0 (BEAKER) (test code = 751) MEAN CORPUSCULAR HEMOGLOBIN CONC 33.3 GM/DL 32.0-36.0 (BEAKER) (test code = 752) RED CELL DISTRIBUTION WIDTH 15.9 % 12.0-15.0 H (BEAKER) (test code = 412) PLATELET COUNT (BEAKER) (test 137 K/CU MM 150-430 L code = 756) MEAN PLATELET VOLUME (BEAKER) 10.6 fL 6.0-11.5 (test code = 754) NUCLEATED RED BLOOD CELLS 0 /100 WBC 0-0 (BEAKER) (test code = 413) NEUTROPHILS RELATIVE PERCENT 78 % (BEAKER) (test code = 429) LYMPHOCYTES RELATIVE PERCENT 13 % (BEAKER) (test code = 430) MONOCYTES RELATIVE PERCENT 8 % (BEAKER) (test code = 431) EOSINOPHILS RELATIVE PERCENT 1 % (BEAKER) (test code = 432) BASOPHILS RELATIVE PERCENT 1 % (BEAKER) (test code = 437) NEUTROPHILS ABSOLUTE COUNT 9.83 K/ L 1.80-8.00 H (BEAKER) (test code = 670) LYMPHOCYTES ABSOLUTE COUNT 1.60 K/ L 1.48-4.50 (BEAKER) (test code = 414) MONOCYTES ABSOLUTE COUNT (BEAKER) 0.98 K/ L 0.00-1.30 (test code = 415) EOSINOPHILS ABSOLUTE COUNT 0.12 K/ L 0.00-0.50 (BEAKER) (test code = 416) BASOPHILS ABSOLUTE COUNT (BEAKER) 0.07 K/ L 0.00-0.20 (test code = 417) IMMATURE GRANULOCYTES-RELATIVE 1 % 0-0 H PERCENT (BEAKER) (test code = 2801) Cedwlspul6287-41-76 21:18:05 Test Item Value Reference Range Interpretation Comments Potassium (test code = 4.3 meq/L 3.6-5.5 2823-3) HONG (test code = HONG) Carpet Cutter ID - JUSTINOperator ID - JUSTINOperator ID - JUSTINOperator ID - JIM Lab Interpretation Normal (test code = 29781-8) [facility] 21:18:05 Test Item Value Reference Range Interpretation Comments POTASSIUM (BEAKER) (test code = 4.3 meq/L 3.6-5.5 379) Carpet Cutter ID - JUSTINOperator ID - JUSTINOperator ID - JUSTINOperator ID - JIM POCT-GLUCOSE NLGXP3615-54-03 21:06:17 Test Item Value Reference Range Interpretation Comments POC-GLUCOSE METER 80 mg/dL 70-110 : TESTED A T [address] (BEAKER) (test code = [address]) [facility] [address]: Carpet Cutter/Techni thang ID = [id number] for Carmen Puente POCT-GLUCOSE [id number] 18:24:01 Test Item Value Reference Range Interpretation Comments POC-GLUCOSE METER 89 mg/dL 70-110 : TESTED A T [address] (BEAKER) (test code = [address], 15[address]) [facility] [address]: Carpet Cutter/Techni thang ID = [id number] for Ali, Rachell Iocscynspnba6187-70-60 13:18:58 Test Item Value Reference Range Interpretation Comments Sodium (test code = 139 meq/L 843-729 9406-2) Potassium (test code = 4.3 meq/L 3.6-5.5 2823-3) Chloride (test code = 100 meq/L 98-106 5-0) CO2 (test code = 27 meq/L -2027-10) HONG (test code = HONG) Carpet Cutter ID - DSENSONOperator ID - DSENSONOperator ID - DSENSONOperator ID - DSENSONOperator ID - DSENSONOperator ID - DSENSONOperator ID - DSENSON Lab Interpretation Normal (test code = 82757-6) [facility] HospitalSxjvkpUYNQTEGDVCJF6224-69-36 13:18:58 Test Item Value Reference Range Interpretation Comments SODIUM (BEAKER) (test code = 381) 139 meq/L 135-148 POTASSIUM (BEAKER) (test code = 4.3 meq/L 3.6-5.5 379) CHLORIDE (BEAKER) (test code = 382) 100 meq/L 98-106 CO2 (BEAKER) (test code = 355) 27 meq/L - Carpet Cutter ID - DSENSONOperator ID - DSENSONOperator ID - DSENSONOperator ID - DSENSONOperator ID - DSENSONOperator ID - DSENSONOperator ID - DSENSONT4, free 2021-04-22 12:27:20 Test Item Value Reference Range Interpretation Comments Free T4 (test code = 1.81 ng/dL 0.90-1.80 H 3024-7) HONG (test code = HONG) Carpet Cutter ID - [id number] Lab Interpretation (test Abnormal code = 42879-1) [facility] Hospital[facility], [id number] 12:27:20 Test Item Value Reference Range Interpretation Comments FREE T4 (BEAKER) (test code = 655) 1.81 ng/dL 0.90-1.80 H Carpet Cutter ID - [id number]-ENFKYAE JZXRN1727-53-13 12:14:32 Test Item Value Reference Range Interpretation Comments POC-GLUCOSE METER 90 mg/dL 70-110 : TESTED A T [address] (BEAKER) (test code = [address], [address]) [place] [address]: Carpet Cutter/Techni thang ID = [id number] for Rachell Qiu ABORH, peekww6797-42-68 10:10:00 Test Item Value Reference Range Interpretation Comments ABO Grouping (test code = 2588) O TUBES Rh Factor (test code = 2589) POS TUBES [facility] HospitalType and screen, qoqiyruvu2938-15-57 09:06:00 Test Item Value Reference Range Interpretation Comments ABO/RH AUTOMATED (BEAKER) (test O POSITIVE echo code = 2260) Ab Scrn (test code = 890-4) NEGATIVE echo [facility] [id number] 08:23:21 Test Item Value Reference Range Interpretation Comments POC-GLUCOSE METER 88 mg/dL 70-110 : TESTED A T [address] (BEAKER) (test code = [address], 1538) [place] [address]: Carpet Cutter/Techni thang ID = [id number] for Rachell Qiu POCT-GLUCOSE [id number] 05:48:10 Test Item Value Reference Range Interpretation Comments POC-GLUCOSE METER 72 mg/dL 70-110 : TESTED A T [facility] (BEAKER) (test code = [address]) [place] [address]: Carpet Cutter/Techni thang ID = [id number] for Arash Oden BASIC METABOLIC [id number] 04:19:26 Test Item Value Reference Range Interpretation Comments SODIUM (BEAKER) 140 meq/L 135-148 (test code = 381) POTASSIUM (BEAKER) 5.2 meq/L 3.6-5.5 (test code = 379) CHLORIDE (BEAKER) 100 meq/L 98-106 (test code = 382) CO2 (BEAKER) (test 28 meq/L 20-29 code = 355) BLOOD UREA NITROGEN 48 mg/dL 10-26 H (BEAKER) (test code = 354) CREATININE (BEAKER) 2.57 mg/dL 0.50-1.20 H (test code = 358) GLUCOSE RANDOM 89 mg/dL 70-110 (BEAKER) (test code = 652) CALCIUM (BEAKER) 8.4 mg/dL 8.5-10.5 L (test code = 697) EGFR (BEAKER) (test 18 mL/min/1.73 ESTIMA MITZI GFR IS code = 1092) sq m NOT ACCURATE CREATININE CLEARANCE IN PREDICTING GLOMERULAR FILTRATION RATE . ESTIMATED GFR I S NOT APPLICABLE FOR DIALYSIS PATIEN TS. Carpet Cutter ID - [id number] ID - [id number] ID - [id number] ID - [id number] ID - [id number] ID - [id number] ID - [id number] ID - [id number] ID - [id number] ID - [id number] Hepatic function [id number] 04:19:15 Test Item Value Reference Range Interpretation Comments Protein, Total (test 6.3 See_Comment [Autom ated code = 2885-2) message] The system which generated this result transmit mitzi reference range : 6.0 - 8.5 gm/dL . The reference range was not u sed to interpret th is result as normal/abnormal . Albumin (test code = 3.0 g/dL 3.5-5.0 L 70615-0) Total Bilirubin (test 0.9 mg/dL 0.1-1.2 code = 1974-2) Bilirubin, Direct 0.5 mg/dL 0.0-0.4 H (test code = 1967-7) Alkaline Phosphatase 99 U/L 30-115 (test code = 6768-6) AST (test code = 548 U/L 5-40 H 1920-8) ALT (test code = 535 U/L 5-50 H 1742-6) HONG (test code = HONG) Carpet Cutter ID - [id number] r ID - [id number] r ID - [id number] r ID - [id number] r ID - [id number] r ID - [id number] r ID - [id number] Lab Interpretation Abnormal (test code = 63533-8) [id number] 04:19:15 Test Item Value Reference Range Interpretation Comments TOTAL PROTEIN (BEAKER) (test code = 6.3 gm/dL 6.0-8.5 770) ALBUMIN (BEAKER) (test code = 1145) 3.0 g/dL 3.5-5.0 L BILIRUBIN TOTAL (BEAKER) (test code 0.9 mg/dL 0.1-1.2 = 377) BILIRUBIN DIRECT (BEAKER) (test 0.5 mg/dL 0.0-0.4 H code = 706) ALKALINE PHOSPHATASE (BEAKER) (test 99 U/L 30-115 code = 346) AST (SGOT) (BEAKER) (test code = 548 U/L 5-40 H 353) ALT (SGPT) (BEAKER) (test code = 535 U/L 5-50 H 347) Carpet Cutter ID - [id number] ID - [id number] ID - [id number] ID - [id number] ID - [id number] ID - [id number] ID - [id number] 04:15:58 Test Item Value Reference Range Interpretation Comments MAGNESIUM (BEAKER) (test code = 3.5 mg/dL 1.5-3.0 H 627) Carpet Cutter ID - [id number] ID - [id number] ID - [id number] ID - [id number] W/PLT COUNT & AUTO [id number] 04:12:53 Test Item Value Reference Range Interpretation Comments WHITE BLOOD CELL COUNT (BEAKER) 14.5 K/ L 4.0-10.0 H (test code = 775) RED BLOOD CELL COUNT (BEAKER) 2.37 M/ L 4.00-5.00 L (test code = 761) HEMOGLOBIN (BEAKER) (test code = 7.2 GM/DL 12.0-15.5 L 410) HEMATOCRIT (BEAKER) (test code = 22.3 % 36.0-46.0 L 411) MEAN CORPUSCULAR VOLUME (BEAKER) 94.1 fL 82.0-99.0 (test code = 753) MEAN CORPUSCULAR HEMOGLOBIN 30.4 pg 27.0-33.0 (BEAKER) (test code = 751) MEAN CORPUSCULAR HEMOGLOBIN CONC 32.3 GM/DL 32.0-36.0 (BEAKER) (test code = 752) RED CELL DISTRIBUTION WIDTH 15.8 % 12.0-15.0 H (BEAKER) (test code = 412) PLATELET COUNT (BEAKER) (test 110 K/CU MM 150-430 L code = 756) MEAN PLATELET VOLUME (BEAKER) 10.8 fL 6.0-11.5 (test code = 754) NUCLEATED RED BLOOD CELLS 0 /100 WBC 0-0 (BEAKER) (test code = 413) NEUTROPHILS RELATIVE PERCENT 83 % (BEAKER) (test code = 429) LYMPHOCYTES RELATIVE PERCENT 10 % (BEAKER) (test code = 430) MONOCYTES RELATIVE PERCENT 6 % (BEAKER) (test code = 431) EOSINOPHILS RELATIVE PERCENT 0 % (BEAKER) (test code = 432) BASOPHILS RELATIVE PERCENT 0 % (BEAKER) (test code = 437) NEUTROPHILS ABSOLUTE COUNT 12.11 K/ L 1.80-8.00 H (BEAKER) (test code = 670) LYMPHOCYTES ABSOLUTE COUNT 1.49 K/ L 1.48-4.50 (BEAKER) (test code = 414) MONOCYTES ABSOLUTE COUNT (BEAKER) 0.84 K/ L 0.00-1.30 (test code = 415) EOSINOPHILS ABSOLUTE COUNT 0.00 K/ L 0.00-0.50 (BEAKER) (test code = 416) BASOPHILS ABSOLUTE COUNT (BEAKER) 0.04 K/ L 0.00-0.20 (test code = 417) IMMATURE GRANULOCYTES-RELATIVE 0 % 0-0 PERCENT (BEAKER) (test code = 2801) [id number] 04:12:26 Test Item Value Reference Range Interpretation Comments PHOSPHORUS (BEAKER) (test code = 4.6 mg/dL 2.5-4.5 H 604) Carpet Cutter ID - [id number] TIME/[id number] 04:08:49 Test Item Value Reference Range Interpretation Comments PROTIME (BEAKER) 21.5 seconds 9.3-12.0 H Final Infor mation (test code = 759) (Auto Outp ut) INR (BEAKER) (test 2.06 See_Comment Final Inf ormation code = 370) (Auto Output) [Automated mess age] The system [employer] generated this result transmitted ref erence range: <=5.90. The reference range was not used to int erpret this result as normal/abnormal . RECOMMENDED COUMADIN/WARFARIN INR THERAPY RANGESSTANDARD DOSE: 2.0 - 3.0 Includes: PROPHYLAXIS for venous thrombosis, systemic embolization; TREATMENT for venous thrombosis and/or pulmonary embolus.HIGH RISK: Target INR is 2.5-3.5 for patients with mechanical heart valves.POCT-GLUCOSE [id number] 23:24:09 Test Item Value Reference Range Interpretation Comments POC-GLUCOSE METER 73 mg/dL 70-110 : TESTED A T [address] (BEAKER) (test code = [address], [address]) [facility] 77 478: Carpet Cutter/Techni thang ID = [id number] for Arash Oden BASIC METABOLIC [id number] 21:51:40 Test Item Value Reference Range Interpretation Comments SODIUM (BEAKER) 140 meq/L 135-148 (test code = 381) POTASSIUM (BEAKER) 5.0 meq/L 3.6-5.5 (test code = 379) CHLORIDE (BEAKER) 102 meq/L 98-106 (test code = 382) CO2 (BEAKER) (test 26 meq/L 20-29 code = 355) BLOOD UREA NITROGEN 45 mg/dL 10-26 H (BEAKER) (test code = 354) CREATININE (BEAKER) 2.42 mg/dL 0.50-1.20 H (test code = 358) GLUCOSE RANDOM 58 mg/dL 70-110 L (BEAKER) (test code = 652) CALCIUM (BEAKER) 8.6 mg/dL 8.5-10.5 (test code = 697) EGFR (BEAKER) (test 19 mL/min/1.73 ESTIMA MITZI GFR IS code = 1092) sq m NOT ACCURATE CREATININE CLEARANCE IN PREDICTING GLOMERULAR FILTRATION RATE . ESTIMATED GFR I S NOT APPLICABLE FOR DIALYSIS PATIEN TS. Carpet Cutter ID - [id number] ID - [id number] ID - [id number] ID - [id number] ID - [id number] ID - [id number] ID - [id number] ID - [id number] ID - [id number] ID - [id number] ID - [id number] ID - [id number] ID - [id number] gas, [id number] 21:11:46 Test Item Value Reference Range Interpretation Comments pH, Arterial (test code 7.51 7.35-7.45 H = 2744-1) pCO2, Arterial (test 36 See_Comment [Autom ated message] code = 2019-8) The system [employer] generated this result transmit mitzi reference range : 35 - 45 mm Hg. The reference range was not used to interpret this result as normal/abnormal . pO2, Arterial (test 120 See_Comment H [Automa mitzi message] code = 2703-7) The system [employer] generated this result transmit mitzi reference range : 80 - 90 mm Hg. The reference range was not used to interpret this result as normal/abnormal . O2 Sat, Arterial (test 98.7 % 96.0-97.0 H code = 2708-6) HCO3, Arterial (test 28 mmol/L 21-29 code = 1960-4) Base Excess, Arterial 4.6 mmol/L -2.0-3.0 H (test code = 1925-7) Patient Temperature 37.0 (test code = 8310-5) FIO2 (test code = 1819) 28 Lab Interpretation Abnormal (test code = 99335-3) [facility] [id number] 21:11:46 Test Item Value Reference Range Interpretation Comments PH ARTERIAL (BEAKER) (test code = 7.51 7.35-7.45 H 383) PCO2 ARTERIAL (BEAKER) (test code 36 mm Hg 35-45 = 384) PO2 ARTERIAL (BEAKER) (test code = 120 mm Hg 80-90 H 385) O2 SATURATION ARTERIAL (BEAKER) 98.7 % 96.0-97.0 H (test code = 386) HCO3 ARTERIAL (BEAKER) (test code 28 mmol/L 21-29 = 388) BASE EXCESS ARTERIAL (BEAKER) 4.6 mmol/L -2.0-3.0 H (test code = 387) PATIENT TEMPERATURE (BEAKER) (test 37.0 code = 1818) FIO2 (BEAKER) (test code = 1819) 28.0 [id number] 19:36:01 Test Item Value Reference Range Interpretation Comments MAGNESIUM (BEAKER) (test code = 2.7 mg/dL 1.5-3.0 627) Carpet Cutter ID - [id number] ID - [id number] ID - [id number] ID - [id number] 19:33:19 Test Item Value Reference Range Interpretation Comments PHOSPHORUS (BEAKER) (test code = 4.5 mg/dL 2.5-4.5 604) Carpet Cutter ID - [id number] 19:27:00 Test Item Value Reference Range Interpretation Comments Albumin (test code = 3.4 g/dL 3.5-5.0 L 81000-9) HONG (test code = HONG) Carpet Cutter ID - [id number] Lab Interpretation (test Abnormal code = 52641-5) [facility] 19:27:00 Test Item Value Reference Range Interpretation Comments ALBUMIN (BEAKER) (test code = 1145) 3.4 g/dL 3.5-5.0 L Carpet Cutter ID - [id number] METABOLIC [id number] 18:44:23 Test Item Value Reference Range Interpretation Comments SODIUM (BEAKER) 139 meq/L 135-148 (test code = 381) POTASSIUM (BEAKER) 6.5 meq/L 3.6-5.5 HH (test code = 379) CHLORIDE (BEAKER) 104 meq/L 98-106 (test code = 382) CO2 (BEAKER) (test 22 meq/L 20-29 code = 355) BLOOD UREA NITROGEN 40 mg/dL 10-26 H (BEAKER) (test code = 354) CREATININE (BEAKER) 2.29 mg/dL 0.50-1.20 H (test code = 358) GLUCOSE RANDOM 99 mg/dL 70-110 (BEAKER) (test code = 652) CALCIUM (BEAKER) 9.1 mg/dL 8.5-10.5 (test code = 697) EGFR (BEAKER) (test 20 mL/min/1.73 ESTIMA MITZI GFR IS code = 1092) sq m NOT ACCURATE CREATININE CLEARANCE IN PREDICTING GLOMERULAR FILTRATION RATE . ESTIMATED GFR I S NOT APPLICABLE FOR DIALYSIS PATIEN TS. Carpet Cutter ID - [id number] ID - [id number] ID - [id number] ID - [id number] ID - [id number] ID - [id number] ID - [id number] ID - [id number] ID - [id number] ID - [id number] ID - [id number] ID - [id number] ID - [id number] 2021-04-21 18:11:25 Test Item Value Reference Range Interpretation Comments TSH (test code = 30.010 See_Comment H [Automated 44492-3) message] The system which generated this result transmit mitzi reference range : 0.350 - 5.500 uIU/mL. The reference range was not used to interpret this result as normal/abnormal . HONG (test code = HONG) Carpet Cutter ID - [id number] Lab Interpretation Abnormal (test code = 21396-7) [facility] 18:11:25 Test Item Value Reference Range Interpretation Comments THYROID STIMULATING HORMONE 30.010 uIU/mL 0.350-5.500 H (BEAKER) (test code = 772) Carpet Cutter ID - [id number] GAS, [id number] 13:46:55 Test Item Value Reference Range Interpretation Comments PH ARTERIAL (BEAKER) (test code = 7.39 7.35-7.45 383) PCO2 ARTERIAL (BEAKER) (test code 29 mm Hg 35-45 L = 384) PO2 ARTERIAL (BEAKER) (test code 79 mm Hg 80-90 L = 385) O2 SATURATION ARTERIAL (BEAKER) 95.5 % 96.0-97.0 L (test code = 386) HCO3 ARTERIAL (BEAKER) (test code 17 mmol/L 21-29 L = 388) BASE EXCESS ARTERIAL (BEAKER) -6.5 mmol/L -2.0-3.0 L (test code = 387) PATIENT TEMPERATURE (BEAKER) 37.5 (test code = 1818) FIO2 (BEAKER) (test code = 1819) 28.0 Urinalysis w/Microscopic + Reflex to [id number] 13:39:28 Test Item Value Reference Range Interpretation Comments Color, UA (test code = Yellow 5778-6) Clarity, UA (test code Clear = 5767-9) Specific [place], UA 1.015 1.001-1.035 (test code = 5811-5) pH, UA (test code = 7.0 5.0-8.0 5803-2) Protein, UA (test code Trace Negative A = 26257-3) Glucose, UA (test code Negative Negative = 365) Ketones, UA (test code Negative Negative = 2514-8) Bilirubin, UA (test Negative Negative code = 09394-1) Blood, UA (test code = Small Negative A 07012-2) Nitrite, UA (test code Negative Negative = 5802-4) Leukocytes, UA (test Negative Negative code = 5799-2) Urobilinogen, UA (test 0.2 mg/dL 0.2-1.0 code = 84594-7) Bacteria, UA (test code Occasional = 01360-7) RBC, UA (test code = 5-10 See_Comment [Autom ated message] 799-7) The system [employer] generated this result transmit mitzi reference range : /HPF. The refer ence range was not u sed to interpret th is result as normal/abnormal . WBC, UA (test code = 5-10 See_Comment [Autom ated message] 93616-3) The system [employer] generated this result transmit mitzi reference range : /HPF. The refer ence range was not u sed to interpret th is result as normal/abnormal . SQUAMOUS EPITHELIAL <5 See_Comment [Automa mitzi message] (test code = 64361-5) The sy stem which generated this result transmit mitzi reference range : /HPF. The refer ence range was not u sed to interpret th is result as normal/abnormal . Specimen Source (test code = 2795) Lab Interpretation Abnormal (test code = 55521-5) [facility]LEX URINE [id number] 13:39:28 Test Item Value Reference Range Interpretation Comments COLOR (BEAKER) (test code = 470) Yellow CLARITY (BEAKER) (test code = 469) Clear SPECIFIC GRAVITY UA (BEAKER) (test 1.015 1.001-1.035 code = 468) PH UA (BEAKER) (test code = 467) 7.0 5.0-8.0 PROTEIN UA (BEAKER) (test code = Trace Negative A 464) GLUCOSE UA (BEAKER) (test code = Negative Negative 365) KETONES UA (BEAKER) (test code = Negative Negative 371) BILIRUBIN UA (BEAKER) (test code = Negative Negative 462) BLOOD UA (BEAKER) (test code = Small Negative A 461) NITRITE UA (BEAKER) (test code = Negative Negative 465) LEUKOCYTE ESTERASE UA (BEAKER) Negative Negative (test code = 466) UROBILINOGEN UA (BEAKER) (test 0.2 mg/dL 0.2-1.0 code = 463) BACTERIA (BEAKER) (test code = Occasional 517) RBC UA-MANUAL (BEAKER) (test code 5-10 /HPF = 1659) WBC UA-MANUAL (BEAKER) (test code 5-10 /HPF = 1661) SQUAMOUS EPITHELIAL MANUAL <5 /HPF (BEAKER) (test code = 1663) SOURCE(BEAKER) (test code = 2795) Sodium, random [id number] 13:39:05 Test Item Value Reference Range Interpretation Comments Sodium Urine (test 141 meq/L code = 2955-3) HONG (test code = Reference Range: No HONG) NormalsOperator ID - [id number] [facility] [id number] 13:39:05 Test Item Value Reference Range Interpretation Comments SODIUM URINE (BEAKER) (test code = 141 meq/L 243) Reference Range: No NormalsOperator ID - [id number] TIME/[id number] 13:31:38 Test Item Value Reference Range Interpretation Comments PROTIME (BEAKER) 32.6 seconds 9.3-12.0 H Final Infor mation (test code = 759) (Auto Outp ut) INR (BEAKER) (test 3.23 See_Comment Final Inf ormation code = 370) (Auto Output) [Automated mess age] The system [employer] generated this result transmitted ref erence range: <=5.90. The reference range was not used to int erpret this result as normal/abnormal . RECOMMENDED COUMADIN/WARFARIN INR THERAPY RANGESSTANDARD DOSE: 2.0 - 3.0 Includes: PROPHYLAXIS for venous thrombosis, systemic embolization; TREATMENT for venous thrombosis and/or pulmonary embolus.HIGH RISK: Target INR is 2.5-3.5 for patients with mechanical heart valves.Troponin [id number] 13:31:31 Test Item Value Reference Range Interpretation Comments Troponin I (test code = 0.26 ng/mL 0.00-0.15 38635-2) HONG (test code = HONG) Troponin I (TnI) levels must be interpreted in the context of the presenting symptoms and the clinical findings. Elevated TnI levels indicate myocardial damage, but are not specific for ischemic heart disease. Elevated TnI levels are seen in patients with other cardiac conditions (including myocarditis and congestive heart failure), and slight TnI elevations occur in patients with other conditions, including sepsis, renal failure, acidosis, acute neurological disease, and persistent tachyarrhythmia.Opera tor ID - [id number] Lab Interpretation (test Abnormal code = 73655-4) [facility]TR[facility] [id number] 13:31:31 Test Item Value Reference Range Interpretation Comments TROPONIN I (BEAKER) (test code = 0.26 ng/mL 0.00-0.15 397) Troponin I (TnI) levels must be interpreted in the context of the presenting symptoms and the clinical findings. Elevated TnI levels indicate myocardial damage, but are not specific for ischemic heart disease. Elevated TnI levels are seen in patients with other cardiac conditions (including myocarditis and congestive heart failure), and slight TnI elevations occur in patients with other conditions, including sepsis, renal failure, acidosis, acute neurological disease, and persistent tachyarrhythmia.Carpet Cutter ID - [id number] Echo W/Doppler(CW/PW/Color)2021-04-21 13:28:30Ejection FractionSLEH ECHO HEARTLAB MKCKESSON [facility]OL[facility] [id number] 13:17:15 Test Item Value Reference Range Interpretation Comments SODIUM (BEAKER) 141 meq/L 135-148 (test code = 381) POTASSIUM (BEAKER) 5.7 meq/L 3.6-5.5 H (test code = 379) CHLORIDE (BEAKER) 108 meq/L 98-106 H (test code = 382) CO2 (BEAKER) (test 17 meq/L 20-29 L code = 355) BLOOD UREA NITROGEN 40 mg/dL 10-26 H (BEAKER) (test code = 354) CREATININE (BEAKER) 2.40 mg/dL 0.50-1.20 H (test code = 358) GLUCOSE RANDOM 80 mg/dL 70-110 (BEAKER) (test code = 652) CALCIUM (BEAKER) 9.3 mg/dL 8.5-10.5 (test code = 697) EGFR (BEAKER) (test 19 mL/min/1.73 ESTIMA MITZI GFR IS code = 1092) sq m NOT ACCURATE CREATININE CLEARANCE IN PREDICTING GLOMERULAR FILTRATION RATE . ESTIMATED GFR I S NOT APPLICABLE FOR DIALYSIS PATIEN TS. Carpet Cutter ID - [id number] ID - [id number] ID - [id number] ID - [id number] ID - [id number] ID - [id number] ID - [id number] ID - [id number] ID - [id number] ID - [id number] [id number] 13:16:32 Test Item Value Reference Range Interpretation Comments MAGNESIUM (BEAKER) (test code = 1.6 mg/dL 1.5-3.0 627) Carpet Cutter ID - [id number] ID - [id number] ID - [id number] ID - [id number] acid, [id number] 13:14:34 Test Item Value Reference Range Interpretation Comments Lactate, Venous (test code 7.59 mmol/L 0.50-2.00 HH = 2872) HONG (test code = HONG) Carpet Cutter ID - [id number] ID - [id number] ID - [id number] ID - [id number] Lab Interpretation (test Abnormal code = 58862-5) [facility] HospitalLACT[facility] ACID, [id number] 13:14:34 Test Item Value Reference Range Interpretation Comments LACTATE BLOOD 7.59 mmol/L See_Comment HH [Automated me ssage] VENOUS (2) (BEAKER) The syst em which (test code = 2872) generated this result transmitted ref erence range: 0.50-<2. 00. The reference range was not used to interpr et this result as normal/abnormal . Carpet Cutter ID - [id number] ID - [id number] ID - [id number] ID - [id number] 13:13:56 Test Item Value Reference Range Interpretation Comments PHOSPHORUS (BEAKER) (test code = 6.3 mg/dL 2.5-4.5 H 604) Carpet Cutter ID - [id number]-JLWHNUO [id number] 13:06:53 Test Item Value Reference Range Interpretation Comments POC-GLUCOSE METER 82 mg/dL 70-110 : TESTED A T [address] (BEAKER) (test code = [address]) [facility] [place] [address]: Carpet Cutter/Techni thang ID = [id number] for Ali, Rachell CBC W/PLT COUNT & AUTO [id number] 13:00:05 Test Item Value Reference Range Interpretation Comments WHITE BLOOD CELL COUNT (BEAKER) 19.6 K/ L 4.0-10.0 H (test code = 775) RED BLOOD CELL COUNT (BEAKER) 2.90 M/ L 4.00-5.00 L (test code = 761) HEMOGLOBIN (BEAKER) (test code = 8.7 GM/DL 12.0-15.5 L 410) HEMATOCRIT (BEAKER) (test code = 28.4 % 36.0-46.0 L 411) MEAN CORPUSCULAR VOLUME (BEAKER) 97.9 fL 82.0-99.0 (test code = 753) MEAN CORPUSCULAR HEMOGLOBIN 30.0 pg 27.0-33.0 (BEAKER) (test code = 751) MEAN CORPUSCULAR HEMOGLOBIN CONC 30.6 GM/DL 32.0-36.0 L (BEAKER) (test code = 752) RED CELL DISTRIBUTION WIDTH 15.8 % 12.0-15.0 H (BEAKER) (test code = 412) PLATELET COUNT (BEAKER) (test 136 K/CU MM 150-430 L code = 756) MEAN PLATELET VOLUME (BEAKER) 11.1 fL 6.0-11.5 (test code = 754) NUCLEATED RED BLOOD CELLS 0 /100 WBC 0-0 (BEAKER) (test code = 413) NEUTROPHILS RELATIVE PERCENT 85 % (BEAKER) (test code = 429) LYMPHOCYTES RELATIVE PERCENT 4 % (BEAKER) (test code = 430) MONOCYTES RELATIVE PERCENT 10 % (BEAKER) (test code = 431) EOSINOPHILS RELATIVE PERCENT 0 % (BEAKER) (test code = 432) BASOPHILS RELATIVE PERCENT 0 % (BEAKER) (test code = 437) NEUTROPHILS ABSOLUTE COUNT 16.70 K/ L 1.80-8.00 H (BEAKER) (test code = 670) LYMPHOCYTES ABSOLUTE COUNT 0.80 K/ L 1.48-4.50 L (BEAKER) (test code = 414) MONOCYTES ABSOLUTE COUNT (BEAKER) 2.00 K/ L 0.00-1.30 H (test code = 415) EOSINOPHILS ABSOLUTE COUNT 0.00 K/ L 0.00-0.50 (BEAKER) (test code = 416) BASOPHILS ABSOLUTE COUNT (BEAKER) 0.02 K/ L 0.00-0.20 (test code = 417) IMMATURE GRANULOCYTES-RELATIVE 1 % 0-0 H PERCENT (BEAKER) (test code = 2801) T4, [id number] 11:11:17 Test Item Value Reference Range Interpretation Comments FREE T4 (BEAKER) (test code = 655) 0.94 ng/dL 0.90-1.80 Carpet Cutter ID - [id number]/Free T4 If Cgrgjwtmr9494-45-91 11:10:10 Test Item Value Reference Range Interpretation Comments TSH (test code = 105.470 See_Comment H [Automated 67735-6) message] The system which generated this result transmit mitzi reference range : 0.350 - 5.500 uIU/mL. The reference range was not used to interpret this result as normal/abnormal . HONG (test code = HONG) Carpet Cutter ID - [id number] r ID - [id number] Lab Interpretation Abnormal (test code = 63630-1) [facility] T4 IF [id number] 11:10:10 Test Item Value Reference Range Interpretation Comments THYROID STIMULATING HORMONE 105.470 uIU/mL 0.350-5.500 H (BEAKER) (test code = 772) Carpet Cutter ID - [id number] ID - [id number]-snxeu1176-66-75 10:40:09 Test Item Value Reference Range Interpretation Comments D-Dimer, Quant (test 18.22 See_Comment H Final I nformation code = 84386-4) (Auto Output ) [Automated message] The system which generated this result transmitted reference range : <0.50 MG/L FEU. The reference range was not used to interpr et this result as normal/abnormal . HONG (test code = REGARDING D-DIMER HONG) RESULTS: The 98% NPV (Negative Predictive Value) for DVT/PE exclusion is 0.50 mg/L FEU as suggested by the biodiesel engineering manager and as approved by the FDA. Lab Interpretation Abnormal (test code = 97480-6) [facility]-[id number] 10:40:09 Test Item Value Reference Range Interpretation Comments D-DIMER QUANTITATIVE 18.22 MG/L FEU <0.50 H Final Information (BEAKER) (test code = (Auto Output) 671) REGARDING D-DIMER RESULTS: The 98% NPV (Negative Predictive Value) for DVT/PE exclusion is 0.50 mg/LFEU as suggested by the biodiesel engineering manager and as approved by the FDA.PROTHROMBIN TIME/[id number] 10:35:43 Test Item Value Reference Range Interpretation Comments PROTIME (BEAKER) 31.4 seconds 9.3-12.0 H Final Infor mation (test code = 759) (Auto Outp ut) INR (BEAKER) (test 3.10 See_Comment Final Inf ormation code = 370) (Auto Output) [Automated mess age] The system [employer] generated this result transmitted ref erence range: <=5.90. The reference range was not used to int erpret this result as normal/abnormal . RECOMMENDED COUMADIN/WARFARIN INR THERAPY RANGESSTANDARD DOSE: 2.0 - 3.0 Includes: PROPHYLAXIS for venous thrombosis, systemic embolization; TREATMENT for venous thrombosis and/or pulmonary embolus.HIGH RISK: Target INR is 2.5-3.5 for patients with mechanical heart valves.TROPONIN [id number] 10:33:10 Test Item Value Reference Range Interpretation Comments TROPONIN I (BEAKER) (test code = 0.16 ng/mL 0.00-0.15 H 397) Troponin I (TnI) levels must be interpreted in the context of the presenting symptoms and the clinical findings. Elevated TnI levels indicate myocardial damage, but are not specific for ischemic heart disease. Elevated TnI levels are seen in patients with other cardiac conditions (including myocarditis and congestive heart failure), and slight TnI elevations occur in patients with other conditions, including sepsis, renal failure, acidosis, acute neurological disease, and persistent tachyarrhythmia.Carpet Cutter ID - [id number] Natriuretic Factor (BNP)2021-04-21 10:32:49 Test Item Value Reference Range Interpretation Comments BNP (test code = 12356-7) 1792 pg/mL 0-100 H HONG (test code = HONG) Carpet Cutter ID - [id number] Lab Interpretation (test Abnormal code = 63482-2) [facility]2021-04-21 10:32:49 Test Item Value Reference Range Interpretation Comments B-TYPE NATRIURETIC PEPTIDE 1792 pg/mL 0-100 H (BEAKER) (test code = 700) Carpet Cutter ID - [id number] metabolic [id number] 10:26:05 Test Item Value Reference Range Interpretation Comments Protein, Total (test 7.7 See_Comment [Autom ated code = 2885-2) message] The system which generated this result transmit mitzi reference range : 6.0 - 8.5 gm/dL . The reference range was not u sed to interpret th is result as normal/abnormal . Albumin (test code = 3.6 g/dL 3.5-5.0 80001-5) Alkaline Phosphatase 134 U/L 30-115 H (test code = 6768-6) Total Bilirubin (test 0.9 mg/dL 0.1-1.2 code = 1975-2) Sodium (test code = 138 meq/L 403-536 2549-2) Potassium (test code 7.5 meq/L 3.6-5.5 HH = 2823-3) Chloride (test code = 109 meq/L 98-106 H 2074-0) CO2 (test code = 9 meq/L 20-29 LL 2027-) BUN (test code = 39 mg/dL 10-26 H 3094-0) Creatinine (test code 2.33 mg/dL 0.50-1.20 H = 2160-0) Glucose (test code = 74 mg/dL 70-110 2345-7) Calcium (test code = 9.3 mg/dL 8.5-10.5 98893-7) AST (test code = 162 U/L 5-40 H 1920-8) ALT (test code = 136 U/L 5-50 H 1742-6) EGFR (test code = 20 mL/min/1.73 [place] [address]-4) NOT ACCURATE CREATININE CLEARANCE IN PREDICTING GLOMERULAR FILTRATION RATE . ESTIMATED GFR I S NOT APPLICABLE FOR DIALYSIS PATIEN TS. HONG (test code = HONG) Carpet Cutter ID - [id number] r ID - [id number] r ID - [id number] r ID - [id number] r ID - [id number] r ID - [id number] r ID - [id number] r ID - [id number] r ID - [id number] r ID - [id number] r ID - [id number] r ID - [id number] r ID - [id number] r ID - [id number] r ID - [id number] r ID - [id number] Lab Interpretation Abnormal (test code = 94141-7) [facility] [id number] 10:26:05 Test Item Value Reference Range Interpretation Comments TOTAL PROTEIN 7.7 gm/dL 6.0-8.5 (BEAKER) (test code = 770) ALBUMIN (BEAKER) 3.6 g/dL 3.5-5.0 (test code = 1145) ALKALINE PHOSPHATASE 134 U/L 30-115 H (BEAKER) (test code = 346) BILIRUBIN TOTAL 0.9 mg/dL 0.1-1.2 (BEAKER) (test code = 377) SODIUM (BEAKER) (test 138 meq/L 135-148 code = 381) POTASSIUM (BEAKER) 7.5 meq/L 3.6-5.5 HH (test code = 379) CHLORIDE (BEAKER) 109 meq/L 98-106 H (test code = 382) CO2 (BEAKER) (test 9 meq/L 20-29 LL code = 355) BLOOD UREA NITROGEN 39 mg/dL 10-26 H (BEAKER) (test code = 354) CREATININE (BEAKER) 2.33 mg/dL 0.50-1.20 H (test code = 358) GLUCOSE RANDOM 74 mg/dL 70-110 (BEAKER) (test code = 652) CALCIUM (BEAKER) 9.3 mg/dL 8.5-10.5 (test code = 697) AST (SGOT) (BEAKER) 162 U/L 5-40 H (test code = 353) ALT (SGPT) (BEAKER) 136 U/L 5-50 H (test code = 347) EGFR (BEAKER) (test 20 mL/min/1.73 ESTIMA MITZI GFR IS code = 1092) sq m NOT ACCURATE CREATININE CLEARANCE IN PREDICTING GLOMERULAR FILTRATION RATE . ESTIMATED GFR I S NOT APPLICABLE FOR DIALYSIS PATIEN TS. Carpet Cutter ID - [id number] ID - [id number] ID - [id number] ID - [id number] ID - [id number] ID - [id number] ID - [id number] ID - [id number] ID - [id number] ID - [id number] ID - BPDRW122Umsknzmg ID - [id number] ID - [id number] ID - [id number] ID - BQHNT309Niuzfqbq ID - [id number] 2021-04-21 10:23:20 Test Item Value Reference Range Interpretation Comments Lipase (test code = 57 U/L 6-51 H 3040-3) HONG (test code = HONG) Carpet Cutter ID - [id number] ID - [id number] ID - [id number] ID - [id number] Lab Interpretation (test Abnormal code = 00103-6) [facility] 10:23[facility]20 Test Item Value Reference Range Interpretation Comments LIPASE (BEAKER) (test code = 749) 57 U/L 6-51 H Carpet Cutter ID - [id number] ID - [id number] ID - [id number] ID - [id number] 10:22:24 Test Item Value Reference Range Interpretation Comments MAGNESIUM (BEAKER) (test code = 1.8 mg/dL 1.5-3.0 627) Carpet Cutter ID - [id number] 10:18:58 Test Item Value Reference Range Interpretation Comments PHOSPHORUS (BEAKER) (test code = 7.0 mg/dL 2.5-4.5 H 604) Carpet Cutter ID - [id number] ACID, [id number] 10:18:03 Test Item Value Reference Range Interpretation Comments LACTATE BLOOD 11.75 mmol/L See_Comment HH Specimen sligh tly VENOUS (2) (BEAKER) hemolyze d [Automated (test code = 2872) message] The system which generated this result transmit mitzi reference range : 0.50-<2.00. The reference range was not used to int erpret this result as normal/abnormal . Carpet Cutter ID - [id number] ID - [id number] ID - [id number] ID - [id number] W/PLT COUNT & AUTO [id number] 10:04:49 Test Item Value Reference Range Interpretation Comments WHITE BLOOD CELL COUNT (BEAKER) 19.2 K/ L 4.0-10.0 H (test code = 775) RED BLOOD CELL COUNT (BEAKER) 3.18 M/ L 4.00-5.00 L (test code = 761) HEMOGLOBIN (BEAKER) (test code = 9.7 GM/DL 12.0-15.5 L 410) HEMATOCRIT (BEAKER) (test code = 32.3 % 36.0-46.0 L 411) MEAN CORPUSCULAR VOLUME (BEAKER) 101.6 fL 82.0-99.0 H (test code = 753) MEAN CORPUSCULAR HEMOGLOBIN 30.5 pg 27.0-33.0 (BEAKER) (test code = 751) MEAN CORPUSCULAR HEMOGLOBIN CONC 30.0 GM/DL 32.0-36.0 L (BEAKER) (test code = 752) RED CELL DISTRIBUTION WIDTH 15.8 % 12.0-15.0 H (BEAKER) (test code = 412) PLATELET COUNT (BEAKER) (test 188 K/CU MM 150-430 code = 756) MEAN PLATELET VOLUME (BEAKER) 10.8 fL 6.0-11.5 (test code = 754) NUCLEATED RED BLOOD CELLS 0 /100 WBC 0-0 (BEAKER) (test code = 413) NEUTROPHILS RELATIVE PERCENT 81 % (BEAKER) (test code = 429) LYMPHOCYTES RELATIVE PERCENT 8 % (BEAKER) (test code = 430) MONOCYTES RELATIVE PERCENT 9 % (BEAKER) (test code = 431) EOSINOPHILS RELATIVE PERCENT 0 % (BEAKER) (test code = 432) BASOPHILS RELATIVE PERCENT 0 % (BEAKER) (test code = 437) NEUTROPHILS ABSOLUTE COUNT 15.67 K/ L 1.80-8.00 H (BEAKER) (test code = 670) LYMPHOCYTES ABSOLUTE COUNT 1.54 K/ L 1.48-4.50 (BEAKER) (test code = 414) MONOCYTES ABSOLUTE COUNT (BEAKER) 1.80 K/ L 0.00-1.30 H (test code = 415) EOSINOPHILS ABSOLUTE COUNT 0.01 K/ L 0.00-0.50 (BEAKER) (test code = 416) BASOPHILS ABSOLUTE COUNT (BEAKER) 0.05 K/ L 0.00-0.20 (test code = 417) IMMATURE GRANULOCYTES-RELATIVE 1 % 0-0 H PERCENT (BEAKER) (test code = 2801) POCT-GLUCOSE [id number] 09:49:13 Test Item Value Reference Range Interpretation Comments POC-GLUCOSE METER 64 mg/dL 70-110 L : TESTED A T [address] 1317 (BEAKER) (test code = [address], [address]) [facility] 77 478: Carpet Cutter/Techni thang ID = [id number] for Ali, Rachell RAD, CHEST, 1 VIEW, NON [id number] 09:45:00Referring: Dr. Jorge Deal for exam:->sobCHI [facility] : 1940 Sex: FFINAL REPORT TECHNIQUE: Frontal view of the chest. INDICATION: sob COMPARISON:None DISCUSSION:Limited evaluation due to portable technique. Lines and hardware: Midline sternotomy changes. Overlying EKG leads.Heart and mediastinum: Cardiomegaly with vascular congestive changes.Lungs and pleura: Retrocardiac atelectasis and calcified opacities. No large effusion or pneumothorax.Soft tissuesand bones: No acute abnormality. IMPRESSION:Chronic appearing retrocardiac calcification may relate to prior infection or atelectasis.Consider CT scan for further evaluation if clinically indicated. Sig kendrick: Yung Humphrey Verified Date/Time: 04/21/2021 09:45:43 Reading Location: [facility] RadiologyReading Room PTT [id number] 09:52:00 Test Item Value Reference Range Interpretation Comments PTT ACTIVATED (test code = APTT) 53.0 SECONDS 25.1-36.5 H PROTHROMBIN [id number] 05:27:00 Test Item Value Reference Range Interpretation Comments PROTHROMBIN TIME 22.2 SECONDS 9.5-12.7 H PATIENT (test code = PTP) INTERNATIONAL NORMAL 2.0 0.86-1.14 H The INR is to be RATIO (test code = used only for INR) monitoring oral anticoagulantth erap y. INDICATION I NR VALUE ---- ---- ---- -------1. Prophylaxis, de ep venous thrombos is, including high risk surgery. 2.0 - 3.0 2. Prophylaxis, deep venous thrombosis, hip surgery, treatm ent for deep venous thrombosis or pulmonary prevention of systemic emboli sm in patients wit h valvular heart disease, atrial fibrillation, tissue heart va lve, or acute myocar dial infarction. 2.0 - 3.0 3. Calender Roll Operator al prosthesis hear t valves, recurre nt systemic emboli sm. 3.0 - 4.5 PROTHROMBIN [id number] 15:22:00 Test Item Value Reference Range Interpretation Comments PROTHROMBIN TIME 18.0 SECONDS 9.5-12.7 H PATIENT (test code = PTP) INTERNATIONAL NORMAL 1.6 0.86-1.14 H The INR is to be RATIO (test code = used only for INR) monitoring oral anticoagulantth erap y. INDICATION I NR VALUE ---- ---- ---- -------1. Prophylaxis, de ep venous thrombos is, including high risk surgery. 2.0 - 3.0 2. Prophylaxis, deep venous thrombosis, hi p surgery, treatm ent for deep venous thrombosis or pulmonary prevention of systemic emboli sm in patients wit h valvular heart disease, atrial fibrillation, tissue heart va lve, or acute myocar dial infarction. 2.0 - 3.0 3. Calender Roll Operator al prosthesis hear t valves, recurre nt systemic emboli sm. 3.0 - 4.5 BASIC METABOLIC [id number] 12:35:00 Test Item Value Reference Range Interpretation [...] = 8.0 MG/DL 8.4-10.2 L CA) PTT [id number] 10:39:00 Test Item Value Reference Range Interpretation Comments PTT ACTIVATED (test 66.2 SECONDS 25.1-36.5 HH CALLED T O YETI O & code = APTT) READBACK ON AT 1038 BY Ilan Loo PTT [id number] 09:21:00 Test Item Value Reference Range Interpretation Comments PTT ACTIVATED (test code = APTT) 56.4 SECONDS 25.1-36.5 H Comments to Dukey Rider: HEPARIN DRIP PROTOCOLPTT [id number] 04:30:00 Test Item Value Reference Range Interpretation Comments PTT ACTIVATED (test code = APTT) 59.0 SECONDS 25.1-36.5 H Comments to Dukey Rider: HEPARIN DRIP [id number] 04:21:00 Test Item Value Reference Range Interpretation Comments HEMOGLOBIN (test code = HGB) 8.6 G/DL 11.2-14.9 L PTT [id number] 18:42:00 Test Item Value Reference Range Interpretation Comments PTT ACTIVATED (test 64.2 SECONDS 25.1-36.5 HH CALLED T Roseanne JOSE.O & code = APTT) READBACK ON AT 1838 BY Marcella Maria PTT [id number] 15:02:00 Test Item Value Reference Range Interpretation Comments PTT ACTIVATED (test code = APTT) 35.5 SECONDS 25.1-36.5 PTT [id number] 09:23:00 Test Item Value Reference Range Interpretation Comments PTT ACTIVATED (test 65.8 SECONDS 25.1-36.5 HH CALLED T O Jubril A & code = APTT) READBACK ON AT 0920 BY Myrna Rosario BASIC METABOLIC [id number] 04:47:00 Test Item Value Reference Range Interpretation [...] 7.7 MG/DL 8.4-10.2 L CA) CBC W/AUTO [id number] 04:36:00 Test Item Value Reference Range Interpretation [...] = 0.00 K/mm3 0.0-0.1 N NRBC#) PTT [id number] 01:53:00 Test Item Value Reference Range Interpretation Comments PTT ACTIVATED (test 89.5 SECONDS 25.1-36.5 HH CALLED T O AZUKA E. & code = APTT) READBACK ON AT 0148 BY Min Hope PTT [id number] 16:40:00 Test Item Value Reference Range Interpretation Comments PTT ACTIVATED (test 80.1 SECONDS 25.1-36.5 HH CALLED T O CHRISSY.G code = APTT) & READBACK ON 12/03/20 AT 163 7 BY Marcella Maria PTT [id number] 11:45:00 Test Item Value Reference Range Interpretation Comments PTT ACTIVATED (test 67.8 SECONDS 25.1-36.5 HH CALLED T O CHRISSY G code = APTT) & READBACK ON 12/03/20 AT 114 5 BY Quan Rosario PLATELET [id number] 11:06:00 Test Item Value Reference Range Interpretation Comments PLATELET COUNT (test code = PLT) 187 K/MM3 129-368 N PTT [id number] 04:50:00 Test Item Value Reference Range Interpretation Comments PTT ACTIVATED (test 83.4 SECONDS 25.1-36.5 HH CALLED T O Noris WALKER code = APTT) & READBACK ON 12/03/20 AT 045 0 BY Min Aquino PTT [id number] 22:30:00 Test Item Value Reference Range Interpretation Comments PTT ACTIVATED (test code = APTT) 33.1 SECONDS 25.1-36.5 N PROTHROMBIN [id number] 16:22:00 Test Item Value Reference Range Interpretation Comments PROTHROMBIN TIME 23.2 SECONDS 9.5-12.7 H PATIENT (test code = PTP) INTERNATIONAL NORMAL 2.1 0.86-1.14 H The INR is to be RATIO (test code = used only for INR) monitoring oral anticoagulantth erap y. INDICATION I NR VALUE ---- ---- ---- -------1. Prophylaxis, de ep venous thrombos is, including high risk surgery. 2.0 - 3.0 2. Prophylaxis, deep venous thrombosis, hip surgery, treatm ent for deep venous thrombosis or pulmonary prevention of systemic emboli sm in patients wit h valvular heart disease, atrial fibrillation, tissue heart va lve, or acute myocar dial infarction. 2.0 - 3.0 3. Calender Roll Operator al prosthesis hear t valves, recurre nt systemic emboli sm. 3.0 - 4.5 UNABLE TO DRAW BLOOD, REASON: HARDSTICKNOTIFIED PATIENT CARE STAFF: DANILO HARRY 12/02/20 AT 1349 Negrita,AngPTT [id number] 16:22:00 Test Item Value Reference Range Interpretation Comments PTT ACTIVATED (test code = APTT) 33.9 SECONDS 25.1-36.5 UNABLE TO DRAW BLOOD, REASON: HARDSTICKNOTIFIED PATIENT CARE STAFF: DANILO HARRY 12/02/20 AT 1349 Davon Rees- XR ABDOMEN [id number] 07:55:00 [facility] : 1940 Sex: F Patient Name: JORGE A SHERMAN Unit No: [id number] EXAMS: CPT CODE: [id number] XR ABDOMEN 2V [id number] EXAMINATION: 2 AP supine and upright view(s) of the abdomen INDICATION: abd distension COMPARISON: CT abdomen and pelvis 01/02/2020 LOCATION: S17 FINDINGS: Diffuse mild gaseous distention of stomach and small bowel.Several of the small bowel loops are upper limit of normal in caliber. There is no distal gas identified. Findings likely represent ileus in the postoperative setting. Early or partial obstruction also possible. IMPRESSION: Findings likely represent mild ileus in the postoperative setting. Early/partial obstruction also possible. Attention on follow-up. Electronically Signed by Loc Sagastume MD on12/02/2020 at 0755 Reported and signed by: Loc Sagastume MD CC: Joe Higgins MD; Audrey Beltrán MD Technologist: Cheyanne Mirza, RT(R) Transcrpt Date/Tm/Trnsp: 12/02/2020 (075) [email or web address] Orig Print D/T: S: 12/02/2020 (0758) [facility] NAME: JORGE A SHERMAN [id number] PHYS: [place] [address] : 1940 AGE: 80 SEX: F LOC: Z.619 A PHONE #: [phone] EXAM DATE: 12/02/2020 STATUS: ADM IN FAX #: [phone] RADIOLOGY NO: PAGE 1 Signed ReportBASIC METABOLIC [id number] 06:05:00 Test Item Value Reference Range Interpretation [...] 8.1 MG/DL 8.4-10.2 L CA) CBC W/AUTO [id number] 05:59:00 Test Item Value Reference Range Interpretation [...] 0.00 K/mm3 0.0-0.1 N NRBC#) GLUCOSE BEDSIDE [id number] 11:06:00 Test Item Value Reference Range Interpretation Comments GLUCOSE BEDSIDE TESTING (test code 162 MG/DL 60-99 H = GLUBED) GLUCOSE BEDSIDE [id number] 06:19:00 Test Item Value Reference Range Interpretation Comments GLUCOSE BEDSIDE TESTING (test code 197 MG/DL 60-99 H = GLUBED) BASIC METABOLIC [id number] 05:48:00 Test Item Value Reference Range Interpretation [...] 7.8 MG/DL 8.4-10.2 L CA) CBC W/AUTO [id number] 05:31:00 Test Item Value Reference Range Interpretation [...] 0.00 K/mm3 0.0-0.1 N NRBC#) GLUCOSE BEDSIDE [id number] 19:32:00 Test Item Value Reference Range Interpretation Comments GLUCOSE BEDSIDE TESTING (test code 134 MG/DL 60-99 H = GLUBED) GLUCOSE BEDSIDE [id number] 15:53:00 Test Item Value Reference Range Interpretation Comments GLUCOSE BEDSIDE TESTING (test code 119 MG/DL 60-99 H = GLUBED) GLUCOSE BEDSIDE [id number] 11:17:00 Test Item Value Reference Range Interpretation Comments GLUCOSE BEDSIDE TESTING (test code 122 MG/DL 60-99 H = GLUBED) GLUCOSE BEDSIDE [id number] 08:19:00 Test Item Value Reference Range Interpretation Comments GLUCOSE BEDSIDE TESTING (test code = 52 MG/DL 60-99 L GLUBED) GLUCOSE BEDSIDE [id number] 06:18:00 Test Item Value Reference Range Interpretation Comments GLUCOSE BEDSIDE TESTING (test code = 52 MG/DL 60-99 L GLUBED) BASIC METABOLIC [id number] 05:43:00 Test Item Value Reference Range Interpretation [...] 8.4 MG/DL 8.4-10.2 N CA) CBC W/AUTO [id number] 05:28:00 Test Item Value Reference Range Interpretation [...] = 0.00 K/mm3 0.0-0.1 N NRBC#) SMALL [id number] 15:29:00 Test Item Value Reference Range Interpretation Comments SMALL INTESTINE (test code = SMINTEST) RUN DATE: 11/29/20 [place] - LAB PAGE 1 RUN TIME: 1530 Specimen Inquiry RUN USER: INTERFACE LAUREN ENT: JORGE A SHERMAN LOC: 5 U #: [id number] AGE/SX: 80/F ROOM: [facility] RE11/26/20REG DR: Audrey Beltrán MD : 38 BED: A DIS: STATUS: ADM IN TLOC: SPEC #: [id number]:COCHRAN:[id number] RECD: 11/27/20 STATUS: DEVORA REQ #: [id number] KEENAN: 11/26/[address] 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, N M23403 - SMALL INTESTINE Y38856 [id number] - LARGE INTESTINE EXCISION, NOS J39079 - COLON, NOS JD0881 - SURGICAL MARGIN COPIES TO: Louise Burrell MD R1 [address] [place] [address] Joe Higgins MD [address] [place] [address] Jose Bartlett DO R1 [address] [place] [address] [place] [address] [address] [id number] Audrey [place]án [place] [address] [address] [id number] @[employer] Undefined Provider PROCEDURES: SURG PATH LVL 5 (11/27/20-1514) SURG PATH LVL 3 (11/29/20) CONTINUED ON NEXT PAGE RUN DATE: 11/29/20 [place] - LAB PAGE 2 RUN TIME: 1530 Specimen Inquiry RUN USER: INTERFACE SPEC #: [id number]:COCHRAN:[id number] PATIENT: JORGE A SHERMAN #[id number] (Continued) ------- TISSUES: A. SMALL INTESTINE, NOS - SMALL BOWEL ILEOSTOMY B. COLON, NOS - COLON CPT CODES CPT CODE(S): 10134 , 84385 , , , , , FINAL DIAGNOSIS [...] /pdb Signed SIGNATURE ON FILE Juan Lewis 11/29/20 1529 END OF REPORT - XR KNEE 1 OR 2 V [id number] 13:57:00 [facility] : 1940 Sex: F Patient Name: JORGE A SHERMAN Unit No: [id number] EXAMS: CPT CODE: [id number] XR KNEE 1 OR 2 V LT [address] EXAM: XRKNEE 2 VIEWS, LEFT INDICATION: KNEE PAIN LOCATION: [...] MD Technologist: Larry Hinkle (RT) (R) Transcrpt Date/Tm/Trnsp:11/29/2020 (1357) [id number] Orig Print D/T: S: 11/29/2020 (1400) [facility] NAME: JORGE A SHERMAN [id number] PHYS: [id number] - [place] [address] : 1940 AGE: 80 SEX: F LOC: Z.533 A PHONE #: [phone] EXAM DATE: 11/29/2020 STATUS: ADM IN FAX #: [phone] RADIOLOGY NO: PAGE 1 Signed ReportBASIC METABOLIC [id number] 06:24:00 Test Item Value Reference Range Interpretation [...] 8.2 MG/DL 8.4-10.2 L CA) CBC W/AUTO [id number] 06:10:00 Test Item Value Reference Range Interpretation [...] N NRBC#) UA RFLX MICR CULT IF [id number] 22:07:00 Test Item Value Reference Range Interpretation [...] UACULT) Criteria Indication for culture: RiskForSepsis-no oth srcHGB [id number] 11:59:00 Test Item Value Reference Range Interpretation Comments HEMOGLOBIN (test code = HGB) 8.4 G/DL 11.2-14.9 L HEMATOCRIT (test code = HCT) 26.5 % 33.2-43.5 L BASIC METABOLIC [id number] 06:23:00 Test Item Value Reference Range Interpretation [...] 8.3 MG/DL 8.4-10.2 L CA) CBC W/AUTO [id number] 02:38:00 Test Item Value Reference Range Interpretation [...] = 0.00 K/mm3 0.0-0.1 N NRBC#) LACTIC [id number] 01:54:00 Test Item Value Reference Range Interpretation Comments LACTIC ACID (test code = LACT) 0.7 MMOL/L 0.7-2.1 N CBC W/AUTO [id number] 22:51:00 Test Item Value Reference Range Interpretation [...] 0.00 K/mm3 0.0-0.1 N NRBC#) Comments to Dukey Rider: will draw and send down.LACTIC [id number] 20:28:00 Test Item Value Reference Range Interpretation Comments LACTIC ACID (test code = LACT) 0.8 MMOL/L 0.7-2.1 N BASIC METABOLIC [id number] 07:33:00 Test Item Value Reference Range Interpretation [...] 9.0 MG/DL 8.4-10.2 N CA) CBC W/AUTO [id number] 07:17:00 Test Item Value Reference Range Interpretation [...] = 0.00 K/mm3 0.0-0.1 N NRBC#) PROTHROMBIN [id number] 12:05:00 Test Item Value Reference Range Interpretation Comments PROTHROMBIN TIME 16.8 SECONDS 9.5-12.7 H PATIENT (test code = PTP) INTERNATIONAL NORMAL 1.5 0.86-1.14 H The INR is to be RATIO (test code = used only for INR) monitoring oral anticoagulantth erap y. INDICATION I NR VALUE ---- ---- ---- -------1. Prophylaxis, de ep venous thrombos is, including high risk surgery. 2.0 - 3.0 2. Prophylaxis, deep venous thrombosis, hip surgery, treatm ent for deep venous thrombosis or pulmonary prevention of systemic emboli sm in patients wit h valvular heart disease, atrial fibrillation, tissue heart va lve, or acute myocar dial infarction. 2.0 - 3.0 3. Calender Roll Operator al prosthesis hear t valves, recurre nt systemic emboli sm. 3.0 - 4.5 PTT [id number] 12:05:00 Test Item Value Reference Range Interpretation Comments PTT ACTIVATED (test code = APTT) 21.5 SECONDS 25.1-36.5 L BASIC METABOLIC [id number] 13:28:00 Test Item Value Reference Range Interpretation [...] 8.4-10.2 N CA) COVID 19 Asymptomatic IH [id number] 13:14:00 Test Item Value Reference Range Interpretation Comments COVID 19 NEGATIVE Negative "Negative resul ts from Asymptomatic IH AG patients with symptom (test code = onset beyondfiv e days, COVNONPUIAG) should be treat ed as presumptive, andconfirmation with a molecular assay [...] virus (antigen) in the sample." CBC W/AUTO [id number] 12:54:00 Test Item Value Reference Range Interpretation [...] code = 0.00 K/mm3 0.0-0.1 N NRBC#) [id number] 07:17:00 Test Item Value Reference Range Interpretation Comments TRANSFERRRIN (test code 130 mg/dL 192-364 L Perf ormed At: BN = TRANSF) [facility] [address] [id number] ra Amos CORREIA Ph:[phone] PROTHROMBIN [id number] 16:15:00 Test Item Value Reference Range Interpretation Comments PROTHROMBIN TIME 28.3 SECONDS 9.4-12.5 H PATIENT (test code = PTP) INTERNATIONAL NORMAL 2.5 The INR is to be RATIO (test code = used only for INR) monitoring oral anticoagulantth erap y. INDICATION I NR VALUE ---- ---- ---- -------1. Prophylaxis, de ep venous thrombos is, including high risk surgery. 2.0 - 3.0 2. Prophylaxis, deep venous thrombosis, hip surgery, treatm ent for deep venous thrombosis or pulmonary prevention of systemic emboli sm in patients wit h valvular heart disease, atrial fibrillation, tissue heart va lve, or acute myocar dial infarction. 2.0 - 3.0 3. Calender Roll Operator al prosthesis hear t valves, recurre nt systemic emboli sm. 3.0 - 4.5 PATIENT IS A HARD STICK. UNABLE TO GET BLOOD SAMPLE.NOTIFIED PATIENT CARE STAFF: VELIA 02/29/20 AT 1359 BY YASHIRAERPROTHROMBIN [id number] 11:04:00 Test Item Value Reference Range Interpretation Comments PROTHROMBIN TIME 24.6 SECONDS 9.4-12.5 H PATIENT (test code = PTP) INTERNATIONAL NORMAL 2.2 The INR is to be RATIO (test code = used only for INR) monitoring oral anticoagulantth erap y. INDICATION I NR VALUE ---- ---- ---- -------1. Prophylaxis, de ep venous thrombos is, including high risk surgery. 2.0 - 3.0 2. Prophylaxis, deep venous thrombosis, hip surgery, treatm ent for deep venous thrombosis or pulmonary prevention of systemic emboli sm in patients wit h valvular heart disease, atrial fibrillation, tissue heart va lve, or acute myocar dial infarction. 2.0 - 3.0 3. Calender Roll Operator al prosthesis hear t valves, recurre nt systemic emboli sm. 3.0 - 4.5 Comments to Dukey Rider: CHECK AT LEAST 30 MIN AFTER AFTER FFP INFUSION PROTHROMBIN [id number] 08:05:00 Test Item Value Reference Range Interpretation Comments PROTHROMBIN TIME 40.1 SECONDS 9.4-12.5 HH PATIENT (test code = PTP) INTERNATIONAL NORMAL 3.6 CALLED TO RATIO (test code = BRUNO& READBACK INR) ON 02/29/20 AT 0805 BY Pop Loo INR is to be us ed only for monito ring oral anticoagulantth erap y. INDICATION INR VALUE ---- ---- ---- -------1. Prophylaxis, de ep venous thrombos is, including high risk surgery. 2.0 - 3.0 2. Prophylaxis, deep venous thrombosis, hip surgery, treatm ent for deep venous thrombosis or pulmonary prevention of systemic emboli sm in patients wit h valvular heart disease, atrial fibrillation, tissue heart va lve, or acute myocar dial infarction. 2.0 - 3.0 3. Calender Roll Operator al prosthesis hear t valves, recurre nt systemic emboli sm. 3.0 - 4.5 PROTHROMBIN [id number] 16:53:00 Test Item Value Reference Range Interpretation Comments PROTHROMBIN TIME 35.3 SECONDS 9.4-12.5 H PATIENT (test code = PTP) INTERNATIONAL NORMAL 3.1 The INR is to be RATIO (test code = used only for INR) monitoring oral anticoagulantth erap y. INDICATION I NR VALUE ---- ---- ---- -------1. Prophylaxis, de ep venous thrombos is, including high risk surgery. 2.0 - 3.0 2. Prophylaxis, deep venous thrombosis, hip surgery, treatm ent for deep venous thrombosis or pulmonary prevention of systemic emboli sm in patients wit h valvular heart disease, atrial fibrillation, tissue heart va lve, or acute myocar dial infarction. 2.0 - 3.0 3. Calender Roll Operator al prosthesis hear t valves, recurre nt systemic emboli sm. 3.0 - 4.5 BASIC METABOLIC [id number] 09:10:00 Test Item Value Reference Range Interpretation [...] code = 8.6 MG/DL 8.4-10.2 N CA) [id number] 09:10:00 Test Item Value Reference Range Interpretation [...] 21 % 12-57 N FESAT) BASIC METABOLIC [id number] 07:10:00 Test Item Value Reference Range Interpretation [...] code = 8.6 MG/DL 8.4-10.2 N CA) [id number] 07:10:00 Test Item Value Reference Range Interpretation Comments FERRITIN (test code = MARSHALL) NG/ML 11.1-264 PROTHROMBIN [id number] 07:07:00 Test Item Value Reference Range Interpretation Comments PROTHROMBIN TIME 43.1 SECONDS 9.4-12.5 HH CALLED TO Belem Thompson & PATIENT (test code = READBAC K ON PTP) 02/28/20 AT 070 3 BY James Bean INTERNATIONAL NORMAL 3.8 HH CALLED TO Yassine Thompson & RATIO (test code = READBACK ON INR) 02/28/20 AT 070 3 BY James BeanThe INR is to be used o nly for monitoring oral anticoagulantth erap y. INDICATION I NR VALUE ---- ---- ---- -------1. Prophylaxis, de ep venous thrombos is, including high risk surgery. 2.0 - 3.0 2. Prophylaxis, deep venous thrombosis, hip surgery, treatm ent for deep venous thrombosis or pulmonary prevention of systemic emboli sm in patients wit h valvular heart disease, atrial fibrillation, tissue heart va lve, or acute myocar dial infarction. 2.0 - 3.0 3. Calender Roll Operator al prosthesis hear t valves, recurre nt systemic emboli sm. 3.0 - 4.5 BASIC METABOLIC [id number] 07:04:00 Test Item Value Reference Range Interpretation [...] CALCIUM (test code = MG/DL 8.7-9.7 CA) [id number] 07:04:00 Test Item Value Reference Range Interpretation Comments FERRITIN (test code = MARSHALL) NG/ML 11.1-264 BASIC METABOLIC [id number] 07:01:00 Test Item Value Reference Range Interpretation [...] CALCIUM (test code = CA) MG/DL 8.7-9.7 [id number] 07:01:00 Test Item Value Reference Range Interpretation Comments FERRITIN (test code = MARSHALL) NG/ML 11.1-264 BASIC METABOLIC [id number] 07:01:00 Test Item Value Reference Range Interpretation [...] CALCIUM (test code = CA) MG/DL 8.7-9.7 [id number] 07:01:00 Test Item Value Reference Range Interpretation Comments FERRITIN (test code = MARSHALL) NG/ML 11.1-264 FE W/TOTAL IRON BINDING CAP.2020-02-28 07:00:00 Test Item Value Reference Range Interpretation Comments SERUM IRON (test code = IRON) 43 MCG/DL 37-170 N TOTAL IRON BINDING CAPACITY (test MCG/DL 265-497 code = TIBC) IRON SATURATION (test code = FESAT) % 12-57 RETICULOCYTE [id number] 06:35:00 Test Item Value Reference Range Interpretation Comments RETICULOCYTE COUNT (test code = RETICT) 1.2 % 0.5-1.5 N CBC W/AUTO [id number] 06:33:00 Test Item Value Reference Range Interpretation [...] = 0.00 K/mm3 0.0-0.1 N NRBC#) PROTHROMBIN [id number] 21:27:00 Test Item Value Reference Range Interpretation Comments PROTHROMBIN TIME 38.5 SECONDS 9.4-12.5 CALLED TO Belem GARCIA PATIENT (test code = S.& CHEVY DBACK ON PTP) 02/27/20 AT 212 7 BY Loretta Leslie INTERNATIONAL NORMAL 3.4 The INR is to be RATIO (test code = used only for INR) monitoring oral anticoagulantth erap y. INDICATION I NR VALUE ---- ---- ---- -------1. Prophylaxis, de ep venous thrombos is, including high risk surgery. 2.0 - 3.0 2. Prophylaxis, deep venous thrombosis, hip surgery, treatm ent for deep venous thrombosis or pulmonary prevention of systemic emboli sm in patients wit h valvular heart disease, atrial fibrillation, tissue heart va lve, or acute myocar dial infarction. 2.0 - 3.0 3. Calender Roll Operator al prosthesis hear t valves, recurr ent systemic emboli sm. 3.0 - 4.5 UNABLE TO DRAW BLOOD, REASON: WAIT 2 HRS DO @1999NOTIFIED PATIENT CARE STAFF: ARACELI 02/27/20 AT 1718 BY Ashutosh Cleveland BEDSIDE [id number] 19:55:00 Test Item Value Reference Range Interpretation Comments GLUCOSE BEDSIDE TESTING (test code = 91 MG/DL 60-99 N GLUBED) [id number] 15:47:00 Test Item Value Reference Range Interpretation Comments PREALBUMIN (test code = PREALB) 13 MG/DL 17-42 L UR SMEAR EOSINOPHIL [id number] 07:16:00 Test Item Value Reference Range Interpretation Comments UR SMEAR EOSINOPHIL COUNT (test code = NONE RARE EOSCTU) BASIC METABOLIC [id number] 07:04:00 Test Item Value Reference Range Interpretation [...] 8.4 MG/DL 8.4-10.2 N CA) CBC W/AUTO [id number] 06:56:00 Test Item Value Reference Range Interpretation [...] 0.00 K/mm3 0.0-0.1 N NRBC#) BASIC METABOLIC [id number] 06:27:00 Test Item Value Reference Range Interpretation [...] (test code = CA) MG/DL 8.7-9.7 PROTHROMBIN [id number] 06:24:00 Test Item Value Reference Range Interpretation Comments PROTHROMBIN TIME 72.5 SECONDS 9.4-12.5 HH CALLED TO Belem Garcia PATIENT (test code = & READB ACK ON PTP) 02/27/20 AT 062 2 BY James Bean INTERNATIONAL NORMAL 6.4 HH CALLED TO Kevin Garcia RATIO (test code = & READBAC K ON INR) 02/27/20 AT 062 2 BY Martina Bean INR is to be used o nly for monitoring oral anticoagulantth erap y. INDICATION I NR VALUE ---- ---- ---- -------1. Prophylaxis, de ep venous thrombos is, including high risk surgery. 2.0 - 3.0 2. Prophylaxis, deep venous thrombosis, hip surgery, treatm ent for deep venous thrombosis or pulmonary prevention of systemic emboli sm in patients wit h valvular heart disease, atrial fibrillation, tissue heart va lve, or acute myocar dial infarction. 2. 0 - 3.0 3. Calender Roll Operator al prosthesis hear t valves, recurre nt systemic emboli sm. 3.0 - 4.5 UR SODIUM [id number] 06:06:00 Test Item Value Reference Range Interpretation Comments UR SODIUM RANDOM (test code = RENETTA) 111 MMOL/L 27-287 N UR PROTEIN [id number] 06:06:00 Test Item Value Reference Range Interpretation Comments UR PROTEIN RANDOM (test code = 43 MG/DL 0-11.9 H PROTU) UR CREATININE [id number] 06:06:00 Test Item Value Reference Range Interpretation Comments UR CREATININE RANDOM (test code = 83.4 CREATU) UR OSMOLALITY [id number] 06:06:00 Test Item Value Reference Range Interpretation Comments UR OSMOLALITY RANDOM (test code 469.5 MOS/KG 300-1200 N = OSMOU) UR SODIUM [id number] 05:33:00 Test Item Value Reference Range Interpretation Comments UR SODIUM RANDOM (test code = RENETTA) 111 MMOL/L 27-287 N UR PROTEIN [id number] 05:33:00 Test Item Value Reference Range Interpretation Comments UR PROTEIN RANDOM (test code = 43 MG/DL 0-11.9 H PROTU) UR CREATININE [id number] 05:33:00 Test Item Value Reference Range Interpretation Comments UR CREATININE RANDOM (test code = 83.4 CREATU) UR OSMOLALITY [id number] 05:33:00 Test Item Value Reference Range Interpretation Comments UR OSMOLALITY RANDOM (test code = MOS/KG 300-1200 OSMOU) UR SODIUM [id number] 05:30:00 Test Item Value Reference Range Interpretation Comments UR SODIUM RANDOM (test code = RENETTA) 111 MMOL/L 27-287 N UR PROTEIN [id number] 05:30:00 Test Item Value Reference Range Interpretation Comments UR PROTEIN RANDOM (test code = 43 MG/DL 0-11.9 H PROTU) UR CREATININE [id number] 05:30:00 Test Item Value Reference Range Interpretation Comments UR CREATININE RANDOM (test code = CREATU) UR OSMOLALITY [id number] 05:30:00 Test Item Value Reference Range Interpretation Comments UR OSMOLALITY RANDOM (test code = MOS/KG 300-1200 OSMOU) UR SODIUM [id number] 05:29:00 Test Item Value Reference Range Interpretation Comments UR SODIUM RANDOM (test code = RENETTA) 111 MMOL/L 27-287 N UR PROTEIN [id number] 05:29:00 Test Item Value Reference Range Interpretation Comments UR PROTEIN RANDOM (test code = PROTU) MG/DL 0-11.9 UR CREATININE [id number] 05:29:00 Test Item Value Reference Range Interpretation Comments UR CREATININE RANDOM (test code = CREATU) UR OSMOLALITY [id number] 05:29:00 Test Item Value Reference Range Interpretation Comments UR OSMOLALITY RANDOM (test code = MOS/KG 300-1200 OSMOU) - US RETRO [id number] 22:50:00 [facility] : 1940 Sex: F Patient Name: JORGE A SHERMAN Unit No: [id number] EXAMS: CPT CODE: [id number] US RETRO LTD 14648 Retroperitonealultrasound. Location: R16 History: Hematuria.. Comparison: 01/02/2020 CT Technique and Findings: [...] MD; Ramu Sutherland MD Technologist: Citlaly Jones RDMS() Transcrpt Date/Tm/Trnsp: 02/26/2020 (225) [email or web address] Orig Print D/T: S: 02/26/2020 (8453) [facility] NAME:JORGE A SHERMAN [id number] PHYS: [email or web address] - [place] [address] : 1940 AGE: 79 SEX: F LOC: Z.513 A PHONE #: [phone] EXAM DATE: 02/26/2020 STATUS: ADM IN FAX #: [phone] RADIOLOGY NO: PAGE 1 Signed ReportGLUCOSE BEDSIDE [id number] 15:32:00 Test Item Value Reference Range Interpretation Comments GLUCOSE BEDSIDE TESTING (test code = 79 MG/DL 60-99 N GLUBED) LACTIC [id number] 13:01:00 Test Item Value Reference Range Interpretation Comments LACTIC ACID (test code = LACT) 1.3 MMOL/L 0.7-2.1 N GLUCOSE BEDSIDE [id number] 12:21:00 Test Item Value Reference Range Interpretation Comments GLUCOSE BEDSIDE TESTING (test code = 78 MG/DL 60-99 N GLUBED) COMPREHENSIVE METABOLIC [id number] 11:41:00 Test Item Value Reference Range Interpretation [...] newinformation regarding the potential i nterference ofEltrombopag ( a bone marrow stimulan t used to treatthrombocyt onmenia and aplastic anemia ) with specific assays on the Vitros 5600 of which Total Protein is one of thoseassays per formed in our lab.Interfe rence testing perform ed at [facility] determined that Eltrombopag does interfere with Vitros Total Protein asfollowsEltrom bopag Interference fo r Vitros Product Total Protein:======= Eltrombopag Max Observed Av jeyson Mirza on Concentration Concentration== ==== 2.5 mg/dl 6.0 g/dl +0.41 +0.34 3.5 mg/dl 6.0 g /dl +0.50 +0.45 5 mg/dl 6 .0 g/dl +0.73 +0.65 2.5 mg/dl 8.0 g/dl +0.44 +0. 41 3.5 mg/dl 8.0 g/dl +0.55 +0.52 5 mg/dl 8.0 g/dl +0.86 +0.77 ALBUMIN (test 3.3 G/DL 3.5-5.0 L code = ALB) CALCIUM (test 8.4 MG/DL 8.4-10.2 N code = CA) BILIRUBIN TOTAL 0.6 MG/DL 0.2-1.3 Eltrombopag Interference (test code = for Vitros Prod uct TBil, BILT) BuBc: Assa y Eltrombopag Jana lyte/ Max Observed Avg. B ias Concentration C oncentration Concentration== ====TBil 7mg/dl TBil/ 1 .2mg/dl +0.23mg.dl +0.2 0mg/dlBuBc 3.5mg/dl Bu/0.8 mg/dl +0.25mg/dl +0.2 4mg/dlBuBc 7 mg/dl Bu/14.2mg /dl +0.38mg/dl +0.2 5mg/dlBuBc 5mg/dl Bc/0mg/d l +0.25mg/dl +0.1 5mg/dlBuBc 3.5mg/dl Bc/2.8 mg/dl +0.25mg/dl +0.2 3mg/dl SGOT/AST (test 52 UNITS/L 14-36 H code = AST) SGPT/ALT (test 36 UNITS/L <35 code = ALT) ALKALINE 198 UNITS/L 38-126 H PHOSPHATASE (test code = ALKP) PROTHROMBIN [id number] 11:31:00 Test Item Value Reference Range Interpretation Comments PROTHROMBIN TIME 76.0 SECONDS 9.4-12.5 HH PATIENT (test code = PTP) INTERNATIONAL NORMAL 6.7 HH CALLED TO GABRIELLA DODGE (test code = READBACK ON INR) 02/26/20 AT 113 1 BY Pop Loo INR is to be us ed only for monito ring oral anticoagulantth erap y. INDICATION INR VALUE ---- ---- ---- -------1. Prophylaxis, de ep venous thrombos is, including high risk surgery. 2.0 - 3.0 2. Prophylaxis, deep venous thrombosis, hip surgery, treatm ent for deep venous thrombosis or pulmonary prevention of systemic emboli sm in patients wit h valvular heart disease, atrial fibrillation, tissue heart va lve, or acute myocar dial infarction. 2.0 - 3.0 3. Calender Roll Operator al prosthesis hear t valves, recurre nt systemic emboli sm. 3.0 - 4.5 CBC W/AUTO [id number] 11:25:00 Test Item Value Reference Range Interpretation [...] 0.00 K/mm3 0.0-0.1 N NRBC#) GLUCOSE BEDSIDE [id number] 08:29:00 Test Item Value Reference Range Interpretation Comments GLUCOSE BEDSIDE TESTING (test code = 72 MG/DL 60-99 N GLUBED) GLUCOSE BEDSIDE [id number] 00:04:00 Test Item Value Reference Range Interpretation Comments GLUCOSE BEDSIDE TESTING (test code = 68 MG/DL 60-99 N GLUBED) PROTHROMBIN [id number] 23:52:00 Test Item Value Reference Range Interpretation Comments PROTHROMBIN TIME 75.1 SECONDS 9.4-12.5 HH CALLED TO Belem Davis PATIENT (test code = & READB ACK ON PTP) 02/25/20 AT 234 9 BY MilesMin INTERNATIONAL NORMAL 6.6 HH CALLED TO TIERA Davis RATIO (test code = & READBAC K ON INR) 02/25/20 AT 235 0 BY Gurpreet Aquino IN R is to be used only for monitoring oral anticoagulantth erap y. INDICATION INR VALUE ---- ---- ---- -------1. Prophylaxis, de ep venous thrombos is, including high risk surgery. 2.0 - 3.0 2. Prophylaxis, deep venous thrombosis, hip surgery, treatm ent for deep venous thrombosis or pulmonary prevention of systemic emboli sm in patients wit h valvular heart disease, atrial fibrillation, tissue heart va lve, or acute myocar dial infarction. 2.0 - 3.0 3. Calender Roll Operator al prosthesis hear t valves, recurre nt systemic emboli sm. 3.0 - 4.5 COVID 19 Asymptomatic IH [id number] 23:42:00 Test Item Value Reference Range Interpretation Comments COVID 19 NEGATIVE Negative "Negative resul ts from Asymptomatic IH AG patients with symptom (test code = onset beyondfiv e days, COVNONPUIAG) should be treat ed as presumptive, andconfirmation with a molecular assay [...] virus (antigen) in the sample." THYROID STIMULATING [id number] 23:04:00 Test Item Value Reference Range Interpretation Comments THYROID STIMULATING 21.300 MIU/L 0.465-4.68 H Please b e aware that HORMONE (test code = bias re sults for TSH TSH) may occur forpa tient who are taking Biotin suppleme nts. GLYCOSYLATED HEMOGLOBIN [id number] 22:37:00 Test Item Value Reference Range Interpretation Comments GLYCOSYLATED 4.7 % 4.8-5.9 L Any condition t hat HEMOGLOBIN (HA1C) shortens e rythocyte (test code = GLYHGB) surviva l or decreasesmean erythrocyte age (e.g., recovery from a cute blood loss,hemolytic anemia) will falsely lo wer HGBA1c resultsregardle ss of the method used. HG BA1c results from [facility] HbSS, HbCC, and [...] 70-110 N (test code = MBG) URINALYSIS [id number] 18:24:00 Test Item Value Reference Range Interpretation [...] Culture Chk code = UACULT) Criteria UA [id number] 18:24:00 Test Item Value Reference Range Interpretation Comments UA RBC (test code = RBCU) 50-100 RBC/HPF 0-3 A UA WBC (test code = XWBCU) >100 WBC/HPF 0-5 A UA EPITHELIAL CELLS (test code FEW EPI/HPF FEW = EPIU) UA BACTERIA (test code = MODERATE NONE A XBACU) UA YEAST (test code = YEASTU) FEW #/HPF NONE A URINALYSIS [id number] 18:13:00 Test Item Value Reference Range Interpretation [...] code Criteria Culture Chk = UACULT) UA [id number] 18:13:00 Test Item Value Reference Range Interpretation Comments UA RBC (test code = RBCU) RBC/HPF 0-3 UA WBC (test code = XWBCU) WBC/HPF 0-5 UA EPITHELIAL CELLS (test code = EPI/HPF FEW EPIU) UA BACTERIA (test code = XBACU) NONE URINALYSIS [id number] 18:13:00 Test Item Value Reference Range Interpretation [...] code Criteria Culture Chk = UACULT) UA [id number] 18:13:00 Test Item Value Reference Range Interpretation Comments UA RBC (test code = RBCU) RBC/HPF 0-3 UA WBC (test code = XWBCU) WBC/HPF 0-5 UA EPITHELIAL CELLS (test code = EPI/HPF FEW EPIU) UA BACTERIA (test code = XBACU) NONE COMPREHENSIVE METABOLIC [id number] 17:13:00 Test Item Value Reference Range Interpretation [...] newinformation regarding the potential i nterference ofEltrombopag ( a bone marrow stimulan t used to treatthrombocyt onmenia and aplastic anemia ) with specific assays on the Vitros 5600 of which Total Protein is one of thoseassays per formed in our lab.Interfe rence testing perform ed at [facility] determined that Eltrombopag does interfere with Vitros Total Protein asfollowsEltrom bopag Interference fo r Vitros Product Total Protein:======= Eltrombopag Max Observed Av g. BiasConcentrati on Concentration Concentration== ==== 2.5 mg/dl 6.0 g/dl +0.41 +0.34 3.5 mg/dl 6.0 g /dl +0.50 +0.45 5 mg/dl 6 .0 g/dl +0.73 +0.65 2.5 mg/dl 8.0 g/dl +0.44 +0.4 1 3.5 mg/dl 8.0 g/dl +0.55 +0.52 5 mg/dl 8.0 g/dl +0.86 +0.77 ALBUMIN (test 4.1 G/DL 3.5-5.0 N code = ALB) CALCIUM (test 9.4 MG/DL 8.4-10.2 code = CA) BILIRUBIN TOTAL 1.0 MG/DL 0.2-1.3 N Eltrombopag Interference (test code = for Vitros Prod uct TBil, BILT) BuBc: Assa y Eltrombopag Jana lyte/ Max Observed Avg. B ias Concentration C oncentration Concentration== ====TBil 7mg/dl TBil/ 1. 2mg/dl +0.23mg.dl +0.2 0mg/dlBuBc 3.5mg/dl Bu/0.8 mg/dl +0.25mg/dl +0.2 4mg/dlBuBc 7 mg/dl Bu/14.2mg /dl +0.38mg/dl +0.2 5mg/dlBuBc 5mg/dl Bc/0mg/d l +0.25mg/dl +0.15mg/dlBuBc 3.5mg/dl Bc/2.8mg/dl +0. 25mg/dl +0.23mg/dl SGOT/AST (test 83 UNITS/L 14-36 H code = AST) SGPT/ALT (test 55 UNITS/L <35 code = ALT) ALKALINE 336 UNITS/L 38-126 H PHOSPHATASE (test code = ALKP) RECOLLECTION NEEDED ON 02/25/20 AT 1538 BY Z.LAB.EYD9ESOYCU: NOT ENOUGH BLOODNOTIFIED PATIENT CARE STAFF: GIDEON Davis SAID TO SEND PHELBPHOSPHOROUS 2020-02-25 17:13:00 Test Item Value Reference Range Interpretation Comments PHOSPHOROUS (test code = PHOS) 4.3 MG/DL 2.5-4.5 N RECOLLECTION NEEDED ON 02/25/20 AT 1538 BY Z.LAB.MFT0UELPNW: NOT ENOUGH BLOODNOTIFIED PATIENT CARE STAFF: GIDEON Davis SAID TO SEND [id number] 17:13:00 Test Item Value Reference Range Interpretation Comments LIPASE (test code = LIP) 313 UNITS/L 23-300 H RECOLLECTION NEEDED ON 02/25/20 AT 1538 BY Z.LAB.[id number]: NOT ENOUGH BLOODNOTIFIED PATIENT CARE STAFF: GIEDON Davis SAID TO SEND PHELBMAGNESIUM 2020-02-25 17:13:00 Test Item Value Reference Range Interpretation Comments MAGNESIUM (test code = MAG) 1.7 MG/DL 1.6-2.3 N RECOLLECTION NEEDED ON 02/25/20 AT 1538 BY Z.LAB.[id number]: NOT ENOUGH BLOODNOTIFIED PATIENT CARE STAFF: GIDEON Davis SAID TO SEND PHELBTROPONIN-I 2020-02-25 17:13:00 Test Item Value Reference Range Interpretation Comments TROPONIN-I (test code = TROPI) < 0.012 NG/ML 0.012-0.033 L RECOLLECTION NEEDED ON 02/25/20 AT 1538 BY [id number]: NOT ENOUGH BLOODNOTIFIED PATIENT CARE STAFF: GIDEON MontyKassandra SAID TO SEND PHELBCOMPREHENSIVE METABOLIC [id number] 16:32:00 Test Item Value Reference Range Interpretation [...] newinformation regarding the potential i nterference ofEltrombopag ( a bone marrow stimulan t used to treatthrombocyt onmenia and aplastic anemia ) with specific assays on the Vitros 5600 of which Total Protein is one of thoseassays per formed in our lab.Interfe rence testing perform ed at [facility] determined that Eltrombopag does interfere with Vitros Total Protein asfollowsEltrom bopag Interference fo r Vitros Product Total Protein:======= Eltrombopag Max Observed Av g. BiasConcentrati on Concentration Concentration== ==== 2.5 mg/dl 6.0 g/dl +0.41 +0.34 3.5 mg/dl 6.0 g /dl +0.50 +0.45 5 mg/dl 6 .0 g/dl +0.73 +0.65 2. 5 mg/dl 8.0 g/dl +0.44 +0.4 1 3.5 mg/dl 8.0 g/dl +0.55 +0.52 5 mg/dl 8.0 g/dl +0.86 +0.77 ALBUMIN (test 4.1 G/DL 3.5-5.0 N code = ALB) CALCIUM (test 9.4 MG/DL 8.4-10.2 code = CA) BILIRUBIN TOTAL 1.0 MG/DL 0.2-1.3 N Eltrombopag Interference (test code = for Vitros Prod uct TBil, BILT) BuBc: Assa y Eltrombopag Jana lyte/ Max Observed Avg. B ias Concentration C oncentration Concentration== ====TBil 7mg/dl TBil/ 1. 2mg/dl +0.23mg.dl +0.2 0mg/dlBuBc 3.5mg/dl Bu/0.8 mg/dl +0.25mg/dl +0.2 4mg/dlBuBc 7 mg/dl Bu/14.2mg /dl +0.38mg/dl +0.2 5mg/dlBuBc 5mg/dl Bc/0mg/d l +0.25mg/dl +0.15mg/dlBuBc 3.5mg/dl Bc/2.8mg/dl +0. 25mg/dl +0.23mg/dl SGOT/AST (test 83 UNITS/L 14-36 H code = AST) SGPT/ALT (test 55 UNITS/L <35 code = ALT) ALKALINE 336 UNITS/L 38-126 H PHOSPHATASE (test code = ALKP) RECOLLECTION NEEDED ON 02/25/20 AT 1538 BY Z.LAB.[id number]: NOT ENOUGH BLOODNOTIFIED PATIENT CARE STAFF: GIDEON Davis SAID TO SEND PHELBPHOSPHOROUS 2020-02-25 16:32:00 Test Item Value Reference Range Interpretation Comments PHOSPHOROUS (test code = PHOS) 4.3 MG/DL 2.5-4.5 N RECOLLECTION NEEDED ON 02/25/20 AT 1538 BY Z.LAB.EME8NVVRVQ: NOT ENOUGH BLOODNOTIFIED PATIENT CARE STAFF: GIDEON Davis SAID TO SEND [id number] 16:32:00 Test Item Value Reference Range Interpretation Comments LIPASE (test code = LIP) 313 UNITS/L 23-300 H RECOLLECTION NEEDED ON 02/25/20 AT 1538 BY Z.LAB.QPX4UJMGEJ: NOT ENOUGH BLOODNOTIFIED PATIENT CARE STAFF: GIDEON Davis SAID TO SEND PHELBMAGNESIUM 2020-02-25 16:32:00 Test Item Value Reference Range Interpretation Comments MAGNESIUM (test code = MAG) 1.7 MG/DL 1.6-2.3 N RECOLLECTION NEEDED ON 02/25/20 AT 1538 BY Z.LAB.LZM8PBBCVE: NOT ENOUGH BLOODNOTIFIED PATIENT CARE STAFF: GIDEON Davis SAID TO SEND PHELBTROPONIN-I 2020-02-25 16:32:00 Test Item Value Reference Range Interpretation Comments TROPONIN-I (test code = TROPI) NG/ML 0.0-0.045 RECOLLECTION NEEDED ON 02/25/20 AT 1538 BY Z.LAB.AKP2JPCUFE: NOT ENOUGH BLOODNOTIFIED PATIENT CARE STAFF: GIDEON Davis SAID TO SEND PHELBCOMPREHENSIVE METABOLIC [id number] 16:30:00 Test Item Value Reference Range Interpretation [...] Product TBil, BuBc: ======= ======= ======A ssay Eltrombopa g Analyte/ Max Ob served Avg. Bias Concentration Concentration Concentration== ======= ======= ======= =======TBil 7mg /dl TBil/ 1.2mg/dl +0.23mg.dl +0.20mg/dlBuBc 3.5mg/dl Bu/0.8 mg/dl +0.25mg/dl +0.24mg/dlBuBc 7 mg/dl Bu/14.2mg/dl +0.38mg/dl +0.25mg/dlBuBc 5mg/dl Bc/0mg/dl +0.2 5mg/dl +0.15mg/dlBuBc 3.5mg/dl Bc/2.8 mg/dl +0.25mg/dl +0.2 3mg/dl SGOT/AST (test code = UNITS/L 15-37 AST) SGPT/ALT (test code = UNITS/L <35 ALT) ALKALINE PHOSPHATASE UNITS/L 38-126 (test code = ALKP) RECOLLECTION NEEDED ON 02/25/20 AT 1538 BY Z.LAB.GZO9IXFBVK: NOT ENOUGH BLOODNOTIFIED PATIENT CARE STAFF: GIDEON Davis SAID TO SEND PHELBPHOSPHOROUS 2020-02-25 16:30:00 Test Item Value Reference Range Interpretation Comments PHOSPHOROUS (test code = PHOS) MG/DL 2.5-4.5 RECOLLECTION NEEDED ON 02/25/20 AT 1538 BY Z.LAB.YVP8UXCPWX: NOT ENOUGH BLOODNOTIFIED PATIENT CARE STAFF: GIDEON Davis SAID TO SEND [id number] 16:30:00 Test Item Value Reference Range Interpretation Comments LIPASE (test code = LIP) UNITS/L 23-300 RECOLLECTION NEEDED ON 02/25/20 AT 1538 BY Z.LAB.IJX4RFFHYF: NOT ENOUGH BLOODNOTIFIED PATIENT CARE STAFF: GIDEON Davis SAID TO SEND PHELBMAGNESIUM 2020-02-25 16:30:00 Test Item Value Reference Range Interpretation Comments MAGNESIUM (test code = MAG) MG/DL 1.6-2.3 RECOLLECTION NEEDED ON 02/25/20 AT 1538 BY Z.LAB.NNY5KTVPMB: NOT ENOUGH BLOODNOTIFIED PATIENT CARE STAFF: GIDEON Davis SAID TO SEND PHELBTROPONIN-I 2020-02-25 16:30:00 Test Item Value Reference Range Interpretation Comments TROPONIN-I (test code = TROPI) NG/ML 0.0-0.045 RECOLLECTION NEEDED ON 02/25/20 AT 1538 BY Z.LAB.YSQ0UBMFRR: NOT ENOUGH BLOODNOTIFIED PATIENT CARE STAFF: GIDEON Davis SAID TO SEND PHELB- XR CHEST 1V 2020-02-25 15:32:00 [facility] : 1940 Sex: F Patient Name: JORGE A SHERMAN Unit No: [id number] EXAMS: CPT CODE: [id number] XR CHEST 1V 81966 Location: T 18 CHEST X-RAY: Portable AP frontal projection, one view, 02/25/20 CLINICAL HISTORY: Weakness. COMPARISON EXAMS: 12/25/19 chest x-ray exam FINDINGS: Heart, lungs, and hilar structures are within normal limits. No evolving process or pleural based finding. No active CHF or pneumonia. Previously seen hazy density throughout the left lung has resolved. Patient status post sternotomy. IMPRESSION: No acute finding at 1532 Reported and signed by: Kisha Bardales MD CC: Guilher[address] Street; Ramu Sutherland MD Technologist: Larry Hinkle (RT) (R) Transcrpt Date/Tm/Trnsp: 02/25/2020 (1532) [email or web address] Orig Print D/T: S: 02/25/2020 (1535) [facility] NAME: JORGE A SHERMAN [id number] PHYS: [place] [address] : 1940 AGE: 79 SEX: F LOC: [facility] PHONE #: [phone] EXAM DATE: 02/25/2020 STATUS: REG ER FAX #: [phone] RADIOLOGY NO: PAGE 1 Signed ReportCBC W/O [id number] 15:20:00 Test Item Value Reference Range Interpretation [...] 0.00 K/mm3 0.0-0.1 N NRBC#) GLUCOSE BEDSIDE [id number] 11:55:00 Test Item Value Reference Range Interpretation Comments GLUCOSE BEDSIDE TESTING (test code 132 MG/DL 60-99 H = GLUBED) GLUCOSE BEDSIDE [id number] 11:04:00 Test Item Value Reference Range Interpretation Comments GLUCOSE BEDSIDE TESTING (test code = 74 MG/DL 60-99 N GLUBED) GLUCOSE BEDSIDE [id number] 07:38:00 Test Item Value Reference Range Interpretation Comments GLUCOSE BEDSIDE TESTING (test code 110 MG/DL 60-99 H = GLUBED) BASIC METABOLIC [id number] 06:32:00 Test Item Value Reference Range Interpretation [...] 8.1 MG/DL 8.4-10.2 L CA) BASIC METABOLIC [id number] 06:31:00 Test Item Value Reference Range Interpretation [...] code = MG/DL 8.7-9.7 CA) BASIC METABOLIC [id number] 06:29:00 Test Item Value Reference Range Interpretation [...] code = CA) MG/DL 8.7-9.7 BASIC METABOLIC [id number] 06:28:00 Test Item Value Reference Range Interpretation [...] (test code = CA) MG/DL 8.7-9.7 PROTHROMBIN [id number] 06:17:00 Test Item Value Reference Range Interpretation Comments PROTHROMBIN TIME 19.2 SECONDS 9.4-12.5 H PATIENT (test code = PTP) INTERNATIONAL NORMAL 1.7 The INR is to be RATIO (test code = used only for INR) monitoring oral anticoagulantth erap y. INDICATION I NR VALUE ---- ---- ---- -------1. Prophylaxis, de ep venous thrombos is, including high risk surgery. 2.0 - 3.0 2. Prophylaxis, deep venous thrombosis, hip surgery, treatm ent for deep venous thrombosis or pulmonary prevention of systemic emboli sm in patients wit h valvular heart disease, atrial fibrillation, tissue heart va lve, or acute myocar dial infarction. 2.0 - 3.0 3. Calender Roll Operator al prosthesis hear t valves, recurre nt systemic emboli sm. 3.0 - 4.5 CBC W/AUTO [id number] 06:12:00 Test Item Value Reference Range Interpretation [...] N NRBC#) - CT ABD PELVIS W/O [id number] 19:52:00 [facility] : 1940 Sex: F Patient Name: JORGE A SHERMAN Unit No: [id number] EXAMS: CPT CODE: [id number] CT ABD PELVIS W/O CONT 73967 EXAM:CT abdomen and pelvis INDICATION: Post-op bleeding COMPARISON: December 30, 2019 LOCATION: [facility] CT scan of the abdomen and pelvis was performed without intravenous contrast. One or more of the followingradiation dose reduction techniques was used: automated exposure control, adjustment of mA and/or KVaccording to patient size, and/or utilization of iterative [...] are small bilateral pleural effusions and there isbilateral dependent atelectasis in the lungs. APPENDIX: The appendix appears unremarkable. GASTROINTESTINAL: There is no imaging evidence of large or small bowel obstruction. An ostomy in the pelvis isagain identified. There are diverticula involving the colon. BONES/SOFT TISSUES: No concerning bony lesion identified. LYMPHATICS: No enlarged lymph nodes by CT criteria. PERITONEUM/OTHER: There continues to be a small amount of free fluid in the abdomen and pelvis. No free air is identified. A catheter in the pelvis is again identified. 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 at 1952 Reported and signed by: Loc Medina MD CC: Nicolas Wiley MD; Ramu Sutherland MD; Rashid Son MD Technologist: Jose Victor RT (R) (CT) CTDI: DLP: Trnscrpt: 01/02/2020 (1952) t.SDR.PMT [facility] NAME: JORGE A SHERMAN [address] PHYS: Nicolas Gutierrez MD [place] [id number] : 1940 AGE: 79 SEX: F LOC: Z.SI06 A PHONE #: [phone] EXAM DATE: 01/02/2020 STATUS: ADM IN FAX #: [phone] RAD #: D/C DT PAGE 2 Signed Report Patient Name: JORGE A SHERMAN Unit No: [id number] EXAMS: CPT CODE: [id number] CT ABD PELVIS W/O CONT 81353 (Continued) Orig Print D/T: S: 01/02/2020 (1955) [facility] NAME: JORGE A SHERMAN [address] PHYS: [id number] - [place] [address] : 1940 AGE: 79 SEX: F LOC: Z.SI06 A PHONE #: [phone] EXAM DATE: 01/02/2020 STATUS: ADM IN FAX #: [phone] RAD #: D/C DT PAGE 3 Signed ReportHGB [id number] 16:29:00 Test Item Value Reference Range Interpretation Comments HEMOGLOBIN (test code = HGB) 8.2 G/DL 11.2-14.9 L HEMATOCRIT (test code = HCT) 26.0 % 33.2-43.5 L GLUCOSE BEDSIDE [id number] 16:27:00 Test Item Value Reference Range Interpretation Comments GLUCOSE BEDSIDE TESTING (test code = 59 MG/DL 60-99 L GLUBED) GLUCOSE BEDSIDE [id number] 12:00:00 Test Item Value Reference Range Interpretation Comments GLUCOSE BEDSIDE TESTING (test code 101 MG/DL 60-99 H = GLUBED) HGB [id number] 09:00:00 Test Item Value Reference Range Interpretation Comments HEMOGLOBIN (test code = 6.4 G/DL 11.2-14.9 LL CALL ED TO SUZANNE L& HGB) READBACK ON AT 0900 BY Ilan Loo HEMATOCRIT (test code = 20.5 % 33.2-43.5 L HCT) CBC W/AUTO [id number] 07:51:00 Test Item Value Reference Range Interpretation Comments WHITE BLOOD CELL (test 26.8 K/MM3 3.8-9.8 H code = WBC) RED BLOOD CELL (test 2.08 M/MM3 3.58-4.97 L code = RBC) HEMOGLOBIN (test code 6.3 G/DL 11.2-14.9 LL CALLED TO Rody M & = HGB) READBACK ON 01/02/20 AT 060 8 BY James Bean HEMATOCRIT (test code 19.9 % 33.2-43.5 LL CALLED TO Rody M & = HCT) READBACK ON 01/02/20 AT 060 8 BY [...] K/mm3 0.0-0.1 N code = NRBC#) DIFFERENTIAL [id number] 07:51:00 Test Item Value Reference Range Interpretation Comments RBC MORPHOLOGY REQUIRED (test code NORMAL = RBCM) ANISOCYTOSIS (test code = ANISO) SLIGHT NONE PLATELET ESTIMATE (test code = INCREASED ADEQUATE PLTEST) PLATELET MORPHOLOGY (test code = NORMAL NORMAL PLTMORPH) BASIC METABOLIC [id number] 06:22:00 Test Item Value Reference Range Interpretation [...] = 8.3 MG/DL 8.4-10.2 L CA) PROTHROMBIN [id number] 06:22:00 Test Item Value Reference Range Interpretation Comments PROTHROMBIN TIME 18.2 SECONDS 9.4-12.5 H PATIENT (test code = PTP) INTERNATIONAL NORMAL 1.6 The INR is to be RATIO (test code = used only for INR) monitoring oral anticoagulantth erap y. INDICATION I NR VALUE ---- ---- ---- -------1. Prophylaxis, de ep venous thrombos is, including high risk surgery. 2.0 - 3.0 2. Prophylaxis, deep venous thrombosis, hip surgery, treatm ent for deep venous thrombosis or pulmonary prevention of systemic emboli sm in patients wit h valvular heart disease, atrial fibrillation, tissue heart va lve, or acute myocar dial infarction. 2. 0 - 3.0 3. Calender Roll Operator al prosthesis hear t valves, recurre nt systemic emboli sm. 3.0 - 4.5 Comments to Dukey Rider: .BASIC METABOLIC [id number] 06:17:00 Test Item Value Reference Range Interpretation [...] code = CA) MG/DL 8.7-9.7 CBC W/AUTO [id number] 06:16:00 Test Item Value Reference Range Interpretation Comments WHITE BLOOD CELL (test 26.8 K/MM3 3.8-9.8 H code = WBC) RED BLOOD CELL (test 2.08 M/MM3 3.58-4.97 L code = RBC) HEMOGLOBIN (test code 6.3 G/DL 11.2-14.9 LL CALLED TO Rody M & = HGB) READBACK ON 01/02/20 AT 060 8 BY James Bean HEMATOCRIT (test code 19.9 % 33.2-43.5 LL CALLED TO Rody M & = HCT) READBACK ON 01/02/20 AT 060 8 BY [...] K/mm3 0.0-0.1 N code = NRBC#) DIFFERENTIAL [id number] 06:16:00 Test Item Value Reference Range Interpretation Comments RBC MORPHOLOGY REQUIRED (test code = RBCM) PLATELET ESTIMATE (test code = PLTEST) ADEQUATE PLATELET MORPHOLOGY (test code = NORMAL PLTMORPH) CBC W/AUTO [id number] 06:16:00 Test Item Value Reference Range Interpretation Comments WHITE BLOOD CELL (test 26.8 K/MM3 3.8-9.8 H code = WBC) RED BLOOD CELL (test 2.08 M/MM3 3.58-4.97 L code = RBC) HEMOGLOBIN (test code 6.3 G/DL 11.2-14.9 LL CALLED TO Rody M & = HGB) READBACK ON 01/02/20 AT 060 8 BY James Bean HEMATOCRIT (test code 19.9 % 33.2-43.5 LL CALLED TO Rody M & = HCT) READBACK ON 01/02/20 AT 060 8 BY [...] K/mm3 0.0-0.1 N code = NRBC#) DIFFERENTIAL [id number] 06:16:00 Test Item Value Reference Range Interpretation Comments RBC MORPHOLOGY REQUIRED (test code = RBCM) PLATELET ESTIMATE (test code = PLTEST) ADEQUATE PLATELET MORPHOLOGY (test code = NORMAL PLTMORPH) GLUCOSE BEDSIDE [id number] 21:30:00 Test Item Value Reference Range Interpretation Comments GLUCOSE BEDSIDE TESTING (test code = 87 MG/DL 60-99 N GLUBED) ARTERIAL BLOOD [id number] 17:52:00 Test Item Value Reference Range Interpretation [...] FIO2 (test code = COHBGFFIO2) 30 % PaO2/[id number] 17:52:00 Test Item Value Reference Range Interpretation Comments PaO2/FiO2 (test code = [id number]) 279.66 mm/Hg GLUCOSE BEDSIDE [id number] 16:23:00 Test Item Value Reference Range Interpretation Comments GLUCOSE BEDSIDE TESTING (test code 108 MG/DL 60-99 H = GLUBED) PROTHROMBIN [id number] 14:43:00 Test Item Value Reference Range Interpretation Comments PROTHROMBIN TIME 18.0 SECONDS 9.4-12.5 H PATIENT (test code = PTP) INTERNATIONAL NORMAL 1.6 The INR is to be RATIO (test code = used only for INR) monitoring oral anticoagulantth erap y. INDICATION I NR VALUE ---- ---- ---- -------1. Prophylaxis, de ep venous thrombos is, including high risk surgery. 2.0 - 3.0 2. Prophylaxis, deep venous thrombosis, hip surgery, treatm ent for deep venous thrombosis or pulmonary prevention of systemic emboli sm in patients wit h valvular heart disease, atrial fibrillation, tissue heart va lve, or acute myocar dial infarction. 2.0 - 3.0 3. Calender Roll Operator al prosthesis hear t valves, recurre nt systemic emboli sm. 3.0 - 4.5 UNABLE TO DRAW BLOOD, REASON: CBNNOTIFIED PATIENT CARE STAFF: PEPPER 01/01/20 AT 1405 BY Cristofer,ElianneComments to Dukey Rider: ,GLUCOSE BEDSIDE TESTING 2020-01-01 12:19:00 Test Item Value Reference Range Interpretation Comments GLUCOSE BEDSIDE TESTING (test code 116 MG/DL 60-99 H = GLUBED) GLUCOSE BEDSIDE [id number] 07:47:00 Test Item Value Reference Range Interpretation Comments GLUCOSE BEDSIDE TESTING (test code 109 MG/DL 60-99 H = GLUBED) BASIC METABOLIC [id number] 05:06:00 Test Item Value Reference Range Interpretation [...] 8.5 MG/DL 8.4-10.2 N CA) BASIC METABOLIC [id number] 04:58:00 Test Item Value Reference Range Interpretation [...] code = CA) MG/DL 8.7-9.7 GLUCOSE BEDSIDE [id number] 20:12:00 Test Item Value Reference Range Interpretation Comments GLUCOSE BEDSIDE TESTING (test code 119 MG/DL 60-99 H = GLUBED) GLUCOSE BEDSIDE [id number] 15:55:00 Test Item Value Reference Range Interpretation Comments GLUCOSE BEDSIDE TESTING (test code 134 MG/DL 60-99 H = GLUBED) CBC W/O [id number] 11:34:00 Test Item Value Reference Range Interpretation [...] K/mm3 0.0-0.1 N code = NRBC#) DIFFERENTIAL [id number] 11:34:00 Test Item Value Reference Range Interpretation Comments RBC MORPHOLOGY REQUIRED (test code NORMAL = RBCM) POLYCHROMASIA (test code = POLC) FEW NONE PLATELET ESTIMATE (test code = INCREASED ADEQUATE PLTEST) PLATELET MORPHOLOGY (test code = NORMAL NORMAL PLTMORPH) WBC [id number] 11:34:00 Test Item Value Reference Range Interpretation [...] MON) 4.9 % 0-11 N BASIC METABOLIC [id number] 11:28:00 Test Item Value Reference Range Interpretation [...] code = 8.7 MG/DL 8.4-10.2 N CA) [id number] 11:28:00 Test Item Value Reference Range Interpretation Comments VANCOMYCIN (test code = VANCO) 14.3 mcg/ML 5.0-26.0 CBC W/O [id number] 11:09:00 Test Item Value Reference Range Interpretation [...] K/mm3 0.0-0.1 N code = NRBC#) DIFFERENTIAL [id number] 11:09:00 Test Item Value Reference Range Interpretation Comments RBC MORPHOLOGY REQUIRED (test code = RBCM) PLATELET ESTIMATE (test code = PLTEST) ADEQUATE PLATELET MORPHOLOGY (test code = NORMAL PLTMORPH) WBC [id number] 11:09:00 Test Item Value Reference Range Interpretation Comments TOTAL CELLS COUNTED (test code = TCC) #CELLS SEGMENTED NEUTROPHILS (test code = % 36.2-73.8 SEG) LYMPHOCYTE (test code = LYMPH) % 12.9-45.1 MONOCYTE (test code = MON) % 0-11 CBC W/AUTO [id number] 11:09:00 Test Item Value Reference Range Interpretation Comments WHITE BLOOD CELL (test 32.2 K/MM3 3.8-9.8 BERNABE RODRIGUEZ code = WBC) S.& READBACK ON [...] K/mm3 0.0-0.1 N code = NRBC#) WBC [id number] 11:09:00 Test Item Value Reference Range Interpretation Comments RBC MORPHOLOGY REQUIRED (test code = RBCM) TOTAL CELLS COUNTED (test code = TCC) #CELLS SEGMENTED NEUTROPHILS (test code = % 36.2-73.8 SEG) LYMPHOCYTE (test code = LYMPH) % 12.9-45.1 MONOCYTE (test code = MON) % 0-11 PLATELET ESTIMATE (test code = ADEQUATE PLTEST) PLATELET MORPHOLOGY (test code = NORMAL PLTMORPH) ARTERIAL BLOOD [id number] 11:00:00 Test Item Value Reference Range Interpretation [...] FIO2 (test code = 21 % COHBGFFIO2) PaO2/[id number] 11:00:00 Test Item Value Reference Range Interpretation Comments PaO2/FiO2 (test code = WVY3QAC2) mm/Hg ARTERIAL BLOOD [id number] 11:00:00 Test Item Value Reference Range Interpretation [...] FIO2 (test code = 21 % COHBGFFIO2) PaO2/[id number] 11:00:00 Test Item Value Reference Range Interpretation Comments PaO2/FiO2 (test code = HKD2QMY1) 297.61 mm/Hg GLUCOSE BEDSIDE [id number] 10:52:00 Test Item Value Reference Range Interpretation Comments GLUCOSE BEDSIDE TESTING (test code 167 MG/DL 60-99 H = GLUBED) GLUCOSE BEDSIDE [id number] 07:30:00 Test Item Value Reference Range Interpretation Comments GLUCOSE BEDSIDE TESTING (test code 148 MG/DL 60-99 H = GLUBED) GLUCOSE BEDSIDE [id number] 20:36:00 Test Item Value Reference Range Interpretation Comments GLUCOSE BEDSIDE TESTING (test code 139 MG/DL 60-99 H = GLUBED) GLUCOSE BEDSIDE [id number] 16:00:00 Test Item Value Reference Range Interpretation Comments GLUCOSE BEDSIDE TESTING (test code 126 MG/DL 60-99 H = GLUBED) [id number] 12:30:00 Test Item Value Reference Range Interpretation Comments VANCOMYCIN (test code = VANCO) 8.3 mcg/ML 5.0-26.0 N GLUCOSE BEDSIDE [id number] 11:19:00 Test Item Value Reference Range Interpretation Comments GLUCOSE BEDSIDE TESTING (test code 118 MG/DL 60-99 H = GLUBED) GLUCOSE BEDSIDE [id number] 07:49:00 Test Item Value Reference Range Interpretation Comments GLUCOSE BEDSIDE TESTING (test code 106 MG/DL 60-99 H = GLUBED) - CT ABD PELVIS [id number] 07:42:00 [facility] : 1940 Sex: F Patient Name: JORGE A SHERMAN Unit No: [id number] EXAMS: CPT CODE: [id number] CT ABD PELVIS W/CONT 51691 HISTORY: Persistent WBC EXAM TYPE: CT abdomen and pelvis with IV contrast. H49 TECHNIQUE: Contrast - IV contrast was given, no oral contrast was given Portal venous phase - abdomen and pelvis No delayed phase images were obtained. Reconstructions - coronal and sagittal planes One or more of the following dosereduction techniques were used: Automated exposure control, adjustment of the mA and/or kV accordingto patient size, and/or utilization of iterative reconstruction technique. COMPARISON: CT abdomen and pelvis 12/04/2019 FINDINGS: Lower thorax: There are small layering bilateral pleural effusions withadjacent compressive atelectasis. Heart is mildly enlarged. 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 Partially visualized mitral valve calcification is noted. There is no significant pericardial effusion. 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 Hepatobiliary: Normal appearance of the liver parenchyma with resolution of previously noted pneumobilia. No discrete intrahepatic lesions areseen. However, there is now new trace perihepatic ascites present. Patent hepatic veins and main portal vein. Slight prominence of extrahepatic bile duct is most likely due to postcholecystectomy changes. Gallbladder: Surgical absence Spleen: Normal. Pancreas: No main duct dilation or focal mass. Adrenals: No visualized abnormality. Kidneys: Multiple tiny cysts are present within the kidneys, too small to characterize. There is slight cortical thinning. No hydronephrosis or hydroureter . No obvious nephrolithiasis. Bowel: Air fluid are present in the stomach and small bowel without evidence of bowel obstruction. The appendix is not confidently identified. However, no discrete pericecal inflammation to suggest acute appendicitis. Vessels: There is extensive calcification within the abdominal aorta. No aneurysmal dilatation. Lymph nodes: No adenopathy. [facility] NAME: JORGE A SHERMAN [id number] PHYS: [id number] - Rodolfo Dillon MD [address] [place] [address] : 1940 AGE: 79 SEX: F LOC: ZKassandraSI06 A PHONE #: [phone] EXAM DATE: 12/30/2019 STATUS: ADM IN FAX #: [phone] RAD #: D/C DT PAGE 1 Signed Report (CONTINUED) Patient Name: JORGE A SHERMAN Unit No: [id number] EXAMS: CPT CODE: [id number] CT ABD PELVIS W/CONT 35928 (Continued) Peritoneum/retroperitoneum: Small volume abdominal ascites, new from prior exam. There is no free intraperitoneal air. 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 This focus measures 1.6 x 1.8 x 2.3 cm, as before No large hematoma is otherwise seen. 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 Adnexal structures are otherwise within normal limits. There is small small volume pelvic ascites with left abdominal approach catheter present in thepelvis, correlate clinically for any signs of peritoneal [...] the basis of patient's fluid status. 3. 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 4. Otherwise no acute process in the abdomen and pelvis. at 0742 Reported and signed by: Lizzy Ryan MD [facility] NAME: JORGE A SHERMANmond PHYS: Rodolfo Landeros MD [address] [place] [address] : 1940 AGE: 79 SEX: F LOC: Z.SI06 A PHONE #: [phone] EXAM DATE: 12/30/2019 STATUS: ADM IN FAX #: [phone] RAD #: D/C DT PAGE 2 Signed Report (CONTINUED) Patient Name: JORGE A SHERMAN Unit No: [id number] EXAMS: CPT CODE: [id number] CT ABD PELVIS W/CONT 19496 (Continued) CC: Tevin Samuels; Ramu Sutherland MD; Rodolfo Dillon MD Technologist: Cole Castano CTDI: DLP: Trnscrpt: 12/30/2019 (0742) [email or web address] [facility] NAME: JORGE A SHERMAN [id number] PHYS: [place] [address] : 1940 AGE: 79 SEX: F LOC: Z.SI06 A PHONE #: [phone] EXAM DATE: 12/30/2019 STATUS: ADM IN FAX #: [phone] RAD #: D/C DT PAGE 3 Signed Report Patient Name: JORGE A SHERMAN Unit No: [id number] EXAMS: CPT CODE: [id number] CT ABD PELVIS W/CONT 82958 (Continued) Orig Print D/T: S: 12/30/2019 (0745) [facility] NAME: JORGE A SHERMAN [address] PHYS: Rodolfo Landeros MD [address] [place], [place] [address]PBH: 1940 AGE: 79 SEX: F LOC: RICHARD Millan PHONE #: [phone] EXAM DATE:12/30/2019 STATUS: ADM IN FAX #: [phone] RAD #: D/C DT PAGE 4 Signed ReportBASIC METABOLIC [id number] 05:39:00 Test Item Value Reference Range Interpretation [...] 8.1 MG/DL 8.4-10.2 L CA) BASIC METABOLIC [id number] 05:25:00 Test Item Value Reference Range Interpretation [...] code = MG/DL 8.7-9.7 CA) BASIC METABOLIC [id number] 05:23:00 Test Item Value Reference Range Interpretation [...] code = CA) MG/DL 8.7-9.7 BASIC METABOLIC [id number] 05:22:00 Test Item Value Reference Range Interpretation [...] code = CA) MG/DL 8.7-9.7 CBC W/AUTO [id number] 05:17:00 Test Item Value Reference Range Interpretation [...] = 0.00 K/mm3 0.0-0.1 N NRBC#) DIFFERENTIAL [id number] 05:17:00 Test Item Value Reference Range Interpretation Comments RBC MORPHOLOGY REQUIRED (test code = RBCM) PLATELET ESTIMATE (test code = PLTEST) ADEQUATE PLATELET MORPHOLOGY (test code = NORMAL PLTMORPH) CBC W/AUTO [id number] 05:17:00 Test Item Value Reference Range Interpretation [...] = 0.00 K/mm3 0.0-0.1 N NRBC#) DIFFERENTIAL [id number] 05:17:00 Test Item Value Reference Range Interpretation Comments RBC MORPHOLOGY REQUIRED (test code = RBCM) PLATELET ESTIMATE (test code = PLTEST) ADEQUATE PLATELET MORPHOLOGY (test code = NORMAL PLTMORPH) ARTERIAL BLOOD [id number] 03:21:00 Test Item Value Reference Range Interpretation [...] FIO2 (test code = 32 % COHBGFFIO2) PaO2/[id number] 03:21:00 Test Item Value Reference Range Interpretation Comments PaO2/FiO2 (test code = IZW4TKH6) mm/Hg ARTERIAL BLOOD [id number] 03:21:00 Test Item Value Reference Range Interpretation [...] FIO2 (test code = 32 % COHBGFFIO2) PaO2/[id number] 03:21:00 Test Item Value Reference Range Interpretation Comments PaO2/FiO2 (test code = ZEW2BQH4) 295.93 mm/Hg GLUCOSE BEDSIDE [id number] 20:10:00 Test Item Value Reference Range Interpretation Comments GLUCOSE BEDSIDE TESTING (test code = 80 MG/DL 60-99 N GLUBED) GLUCOSE BEDSIDE [id number] 17:00:00 Test Item Value Reference Range Interpretation Comments GLUCOSE BEDSIDE TESTING (test code = 99 MG/DL 60-99 N GLUBED) ARTERIAL BLOOD [id number] 16:38:00 Test Item Value Reference Range Interpretation [...] FIO2 (test code = COHBGFFIO2) 36 % PaO2/[id number] 16:38:00 Test Item Value Reference Range Interpretation Comments PaO2/FiO2 (test code = YVM8YDT6) mm/Hg ARTERIAL BLOOD [id number] 16:38:00 Test Item Value Reference Range Interpretation [...] FIO2 (test code = COHBGFFIO2) 36 % PaO2/[id number] 16:38:00 Test Item Value Reference Range Interpretation Comments PaO2/FiO2 (test code = ESY7HYO7) 543.05 mm/Hg ARTERIAL BLOOD [id number] 11:48:00 Test Item Value Reference Range Interpretation [...] FIO2 (test code = COHBGFFIO2) 50 % PaO2/[id number] 11:48:00 Test Item Value Reference Range Interpretation Comments PaO2/FiO2 (test code = FBM7KJQ2) mm/Hg ARTERIAL BLOOD [id number] 11:48:00 Test Item Value Reference Range Interpretation [...] FIO2 (test code = COHBGFFIO2) 50 % PaO2/[id number] 11:48:00 Test Item Value Reference Range Interpretation Comments PaO2/FiO2 (test code = TRR1EZA7) 345.40 mm/Hg GLUCOSE BEDSIDE [id number] 11:02:00 Test Item Value Reference Range Interpretation Comments GLUCOSE BEDSIDE TESTING (test code 131 MG/DL 60-99 H = GLUBED) ARTERIAL BLOOD [id number] 10:15:00 Test Item Value Reference Range Interpretation [...] FIO2 (test code = COHBGFFIO2) 40 % PaO2/[id number] 10:15:00 Test Item Value Reference Range Interpretation Comments PaO2/FiO2 (test code = SOO7LLN7) mm/Hg ARTERIAL BLOOD [id number] 10:15:00 Test Item Value Reference Range Interpretation [...] FIO2 (test code = COHBGFFIO2) 40 % PaO2/[id number] 10:15:00 Test Item Value Reference Range Interpretation Comments PaO2/FiO2 (test code = SUO5QJC3) 270.50 mm/Hg GLUCOSE BEDSIDE [id number] 07:25:00 Test Item Value Reference Range Interpretation Comments GLUCOSE BEDSIDE TESTING (test code 103 MG/DL 60-99 H = GLUBED) CBC W/AUTO [id number] 04:50:00 Test Item Value Reference Range Interpretation [...] = 0.02 K/mm3 0.0-0.1 N NRBC#) DIFFERENTIAL [id number] 04:50:00 Test Item Value Reference Range Interpretation Comments RBC MORPHOLOGY REQUIRED (test code = RBCM) PLATELET ESTIMATE (test code = PLTEST) ADEQUATE PLATELET MORPHOLOGY (test code = NORMAL PLTMORPH) CBC W/AUTO [id number] 04:50:00 Test Item Value Reference Range Interpretation [...] = 0.02 K/mm3 0.0-0.1 N NRBC#) DIFFERENTIAL [id number] 04:50:00 Test Item Value Reference Range Interpretation Comments RBC MORPHOLOGY REQUIRED (test code = RBCM) PLATELET ESTIMATE (test code = PLTEST) ADEQUATE PLATELET MORPHOLOGY (test code = NORMAL PLTMORPH) GLUCOSE BEDSIDE [id number] 20:04:00 Test Item Value Reference Range Interpretation Comments GLUCOSE BEDSIDE TESTING (test code 112 MG/DL 60-99 H = GLUBED) ARTERIAL BLOOD [id number] 17:50:00 Test Item Value Reference Range Interpretation [...] FIO2 (test code = COHBGFFIO2) 40 % PaO2/[id number] 17:50:00 Test Item Value Reference Range Interpretation Comments PaO2/FiO2 (test code = PQH7EAT9) mm/Hg ARTERIAL BLOOD [id number] 17:50:00 Test Item Value Reference Range Interpretation [...] FIO2 (test code = COHBGFFIO2) 40 % PaO2/[id number] 17:50:00 Test Item Value Reference Range Interpretation Comments PaO2/FiO2 (test code = WGW4CKH9) 283.25 mm/Hg GLUCOSE BEDSIDE [id number] 16:16:00 Test Item Value Reference Range Interpretation Comments GLUCOSE BEDSIDE TESTING (test code 102 MG/DL 60-99 H = GLUBED) CBC W/O [id number] 11:57:00 Test Item Value Reference Range Interpretation [...] K/mm3 0.0-0.1 N code = NRBC#) DIFFERENTIAL [id number] 11:57:00 Test Item Value Reference Range Interpretation Comments RBC MORPHOLOGY REQUIRED (test code = NORMAL RBCM) ANISOCYTOSIS (test code = ANISO) SLIGHT NONE MACROCYTOSIS (test code = MACR) FEW NONE PLATELET ESTIMATE (test code = ADEQUATE ADEQUATE PLTEST) PLATELET MORPHOLOGY (test code = NORMAL NORMAL PLTMORPH) WBC [id number] 11:57:00 Test Item Value Reference Range Interpretation [...] code = GERTRUDIS) 0.8 % 0-0 H [id number] 11:46:00 Test Item Value Reference Range Interpretation Comments VANCOMYCIN (test code = VANCO) 13.8 mcg/ML 5.0-26.0 N UNABLE TO DRAW BLOOD, REASON: CBNNOTIFIED PATIENT CARE STAFF: MOSHE 12/28/19 AT 1048 BY Hannah Busby ABRAZO [facility] BLO[facility] [id number] 11:19:00 Test Item Value Reference Range Interpretation [...] FIO2 (test code = COHBGFFIO2) 40 % PaO2/[id number] 11:19:00 Test Item Value Reference Range Interpretation Comments PaO2/FiO2 (test code = MBJ2BUM2) mm/Hg ARTERIAL BLOOD [id number] 11:19:00 Test Item Value Reference Range Interpretation [...] FIO2 (test code = COHBGFFIO2) 40 % PaO2/[id number] 11:19:00 Test Item Value Reference Range Interpretation Comments PaO2/FiO2 (test code = OMI1UZJ4) 279.25 mm/Hg GLUCOSE BEDSIDE [id number] 10:39:00 Test Item Value Reference Range Interpretation Comments GLUCOSE BEDSIDE TESTING (test code 153 MG/DL 60-99 H = GLUBED) ARTERIAL BLOOD [id number] 10:05:00 Test Item Value Reference Range Interpretation [...] FIO2 (test code = COHBGFFIO2) 30 % PaO2/[id number] 10:05:00 Test Item Value Reference Range Interpretation Comments PaO2/FiO2 (test code = LOI4IHB8) 279.66 mm/Hg ARTERIAL BLOOD [id number] 10:04:00 Test Item Value Reference Range Interpretation [...] FIO2 (test code = COHBGFFIO2) 30 % PaO2/[id number] 10:04:00 Test Item Value Reference Range Interpretation Comments PaO2/FiO2 (test code = ERI1YWW9) mm/Hg CBC W/O [id number] 08:07:00 Test Item Value Reference Range Interpretation [...] K/mm3 0.0-0.1 N code = NRBC#) DIFFERENTIAL [id number] 08:07:00 Test Item Value Reference Range Interpretation Comments RBC MORPHOLOGY REQUIRED (test code = RBCM) PLATELET ESTIMATE (test code = PLTEST) ADEQUATE PLATELET MORPHOLOGY (test code = NORMAL PLTMORPH) WBC [id number] 08:07:00 Test Item Value Reference Range Interpretation Comments TOTAL CELLS COUNTED (test code = TCC) #CELLS SEGMENTED NEUTROPHILS (test code = % 36.2-73.8 SEG) LYMPHOCYTE (test code = LYMPH) % 12.9-45.1 MONOCYTE (test code = MON) % 0-11 CBC W/AUTO [id number] 08:07:00 Test Item Value Reference Range Interpretation [...] K/mm3 0.0-0.1 N code = NRBC#) WBC [id number] 08:07:00 Test Item Value Reference Range Interpretation Comments RBC MORPHOLOGY REQUIRED (test code = RBCM) TOTAL CELLS COUNTED (test code = TCC) #CELLS SEGMENTED NEUTROPHILS (test code = % 36.2-73.8 SEG) LYMPHOCYTE (test code = LYMPH) % 12.9-45.1 MONOCYTE (test code = MON) % 0-11 PLATELET ESTIMATE (test code = ADEQUATE PLTEST) PLATELET MORPHOLOGY (test code = NORMAL PLTMORPH) GLUCOSE BEDSIDE [id number] 07:48:00 Test Item Value Reference Range Interpretation Comments GLUCOSE BEDSIDE TESTING (test code 122 MG/DL 60-99 H = GLUBED) GLUCOSE BEDSIDE [id number] 05:14:00 Test Item Value Reference Range Interpretation Comments GLUCOSE BEDSIDE TESTING (test code 131 MG/DL 60-99 H = GLUBED) GLUCOSE BEDSIDE [id number] 05:14:00 Test Item Value Reference Range Interpretation Comments GLUCOSE BEDSIDE TESTING (test code 115 MG/DL 60-99 H = GLUBED) GLUCOSE BEDSIDE [id number] 05:14:00 Test Item Value Reference Range Interpretation Comments GLUCOSE BEDSIDE TESTING (test code 114 MG/DL 60-99 H = GLUBED) GLUCOSE BEDSIDE [id number] 05:12:00 Test Item Value Reference Range Interpretation Comments GLUCOSE BEDSIDE TESTING (test code 156 MG/DL 60-99 H = GLUBED) GLUCOSE BEDSIDE [id number] 05:12:00 Test Item Value Reference Range Interpretation Comments GLUCOSE BEDSIDE TESTING (test code 161 MG/DL 60-99 H = GLUBED) GLUCOSE BEDSIDE [id number] 05:12:00 Test Item Value Reference Range Interpretation Comments GLUCOSE BEDSIDE TESTING (test code = 84 MG/DL 60-99 N GLUBED) GLUCOSE BEDSIDE [id number] 05:12:00 Test Item Value Reference Range Interpretation Comments GLUCOSE BEDSIDE TESTING (test code 103 MG/DL 60-99 H = GLUBED) GLUCOSE BEDSIDE [id number] 05:12:00 Test Item Value Reference Range Interpretation Comments GLUCOSE BEDSIDE TESTING (test code 175 MG/DL 60-99 H = GLUBED) GLUCOSE BEDSIDE [id number] 05:11:00 Test Item Value Reference Range Interpretation Comments GLUCOSE BEDSIDE TESTING (test code 131 MG/DL 60-99 H = GLUBED) COLON SEGMENT RESEC. NOT [id number] 22:42:00 Test Item Value Reference Range Interpretation Comments COLON SEGMENT RESEC. NOT TUMOR (test code = COLONR) RUN DATE: 12/27/19 [facility] PAGE 1 RUN TIME: 2 Specimen Inquiry RUN USER: INTERFACE PATIENT: JORGE A SHERMAN LOC: JEF U #: [id number] AGE/SX: 79/F ROOM: [facility] RE11/26/19[facility] DR: Tevin Samuels MD : 39 BED: A DIS: STATUS: ADM IN TLOC: SPEC #: [id number]:COCHRAN:[id number] RECD: 12/24/19-1048 STATUS: DEVORA ALLNE #: [id number] KEENAN: 12/22/19 [facility] [address]: Rashid Son MD ENTERED: 12/24/19-105 SP TYPE: COLONR OTHR DR: Self Referred Sarah Ovalles DO R2 Joe Higgins MD, Hansaa MD R1 Odalys Jáurez MD R1 Donna Carson MD, Rajyalakshmi MD Miniato, Mohammed MD R1 Jose Alfredo Goff MD,Andrie Conner,Reuben Wilder,Jason Joseph,Juan Dixon,Ezequiel Smith,Georgette Lopez MD, MDORDERED: SURG PATH LVL 5 CODES: [id number] - SMALL INTESTINE ISCHEMIA, NOS [id number] [id number] - SMALL INTESTINE PERFORATION, NO H03499 [id number] - SMALL INTESTINE NECROSIS, NOS [id number] - COLON, NOS [id number] - COLON, NOS EXCISION, NOS [id number] - TRANSVERSE COLO [id number] - LYMPH NODE, NOS COPIES TO: Self Referred Sarah Ovalles DO R2 [address] [place], [place] [id number] Joe Higgins MD [address] [place], [place] [id number] Home Bryant MD R1 [address] [place] [address] CONTINUED ON NEXT PAGE RUN DATE: 12/27/19 [facility] PAGE 2 RUN TIME: 2242 Specimen Inquiry RUN USER: INTERFACE SPEC #: [id number]:COCHRAN:[id number] PATIENT: JORGE A SHERMAN #[id number] (Continued) --- COPIES TO: (Continued) Odalys Juárez MD R1 [address] [place] [address] [place] [address] [facility] [address] [place] [id number] Ramu Sutherland MD [address] [place] [address] Raji Jordan MD R1 [address] [place] [address] [place] [address] [facility] [address] Rashid Son MD [address] [facility] [place] [address] @[email or web address] Anderi Humphrey MD [address] [facility] [address] [place] [phone] [place] [address] [facility] [address] [place] [phone] Jason Wilder MD [address] [facility] [address] [place] [address] [place] [address] [facility] [address] [place] [phone] CONTINUED ON NEXT PAGE RUN DATE: 12/27/19 [facility] PAGE 3 RUN TIME: 2241 Specimen Inquiry RUN USER: INTERFACE SPEC #: 20:COCHRAN:[id number] PATIENT: SHERMANJORGE A #[id number] (Continued) --- COPIES TO: (Continued) Ezequiel Dixon [address] [place], [place] [id number] Georgina Smith MD [facility] [address] [place] [address] Georgette Claudio MD [address] [place], [place] [address] PROCEDURES: SURG PATH LVL 5 (12/24/19-105) TISSUES: A. COLON, NOS - RIGHT AND TRANSVERSE COLON CPT CODES CPT CODE(S): 23429 , , , , , , FINAL [...] RUN DATE: 12/27/19 [facility] PAGE 4 RUN TIME: 2 Specimen Inquiry RUN USER: INTERFACE SPEC #: [id number]:COCHRAN:[id number] PATIENT: JORGE A SHERMAN #[id number] (Continued) --- GROSS DESCRIPTION (Continued) serosal surface. [...] Signed SIGNATURE ON FILE Xander Marshall 12/27/19 2243 END OF REPORT ARTERIAL BLOOD [id number] 22:17:00 Test Item Value Reference Range Interpretation [...] FIO2 (test code = COHBGFFIO2) 30 % PaO2/[id number] 22:17:00 Test Item Value Reference Range Interpretation Comments PaO2/FiO2 (test code = ZTM7XQE3) mm/Hg ARTERIAL BLOOD [id number] 22:17:00 Test Item Value Reference Range Interpretation [...] FIO2 (test code = COHBGFFIO2) 30 % PaO2/[id number] 22:17:00 Test Item Value Reference Range Interpretation Comments PaO2/FiO2 (test code = QEV9XMY2) 251.66 mm/Hg ARTERIAL BLOOD [id number] 16:54:00 Test Item Value Reference Range Interpretation [...] FIO2 (test code = COHBGFFIO2) 30 % PaO2/[id number] 16:54:00 Test Item Value Reference Range Interpretation Comments PaO2/FiO2 (test code = NMT9TGV3) mm/Hg ARTERIAL BLOOD [id number] 16:54:00 Test Item Value Reference Range Interpretation [...] FIO2 (test code = COHBGFFIO2) 30 % PaO2/[id number] 16:54:00 Test Item Value Reference Range Interpretation Comments PaO2/FiO2 (test code = VHN5IUC5) 310.33 mm/Hg ARTERIAL BLOOD [id number] 14:42:00 Test Item Value Reference Range Interpretation [...] FIO2 (test code = COHBGFFIO2) 30 % PaO2/[id number] 14:42:00 Test Item Value Reference Range Interpretation Comments PaO2/FiO2 (test code = GAQ2UMZ1) mm/Hg ARTERIAL BLOOD [id number] 14:42:00 Test Item Value Reference Range Interpretation [...] FIO2 (test code = COHBGFFIO2) 30 % PaO2/[id number] 14:42:00 Test Item Value Reference Range Interpretation Comments PaO2/FiO2 (test code = LIL9BLC9) 270.66 mm/Hg CBC W/O [id number] 14:26:00 Test Item Value Reference Range Interpretation [...] code = NRBC#) GAVE TUBES TO JUVENCBNDIFFERENTIAL [id number] 14:26:00 Test Item Value Reference Range Interpretation Comments RBC MORPHOLOGY REQUIRED (test code = NORMAL RBCM) ANISOCYTOSIS (test code = ANISO) SLIGHT NONE PLATELET ESTIMATE (test code = ADEQUATE ADEQUATE PLTEST) PLATELET MORPHOLOGY (test code = NORMAL NORMAL PLTMORPH) [facility] [id number] 14:26:00 Test Item Value Reference Range Interpretation [...] 0-0 H GAVE TUBES TO JUVENCBNARTERIAL BLOOD [id number] 14:12:00 Test Item Value Reference Range Interpretation [...] FIO2 (test code = 30 % COHBGFFIO2) PaO2/[id number] 14:12:00 Test Item Value Reference Range Interpretation Comments PaO2/FiO2 (test code = EFI0BYB3) mm/Hg ARTERIAL BLOOD [id number] 14:12:00 Test Item Value Reference Range Interpretation [...] FIO2 (test code = 30 % COHBGFFIO2) PaO2/[id number] 14:12:00 Test Item Value Reference Range Interpretation Comments PaO2/FiO2 (test code = VIY8VAA7) 226.66 mm/Hg GLUCOSE BEDSIDE [id number] 13:23:00 Test Item Value Reference Range Interpretation Comments GLUCOSE BEDSIDE TESTING (test code 122 MG/DL 60-99 H = GLUBED) ARTERIAL BLOOD [id number] 12:31:00 Test Item Value Reference Range Interpretation [...] FIO2 (test code = 24 % COHBGFFIO2) PaO2/[id number] 12:31:00 Test Item Value Reference Range Interpretation Comments PaO2/FiO2 (test code = VHB5QRK5) mm/Hg ARTERIAL BLOOD [id number] 12:31:00 Test Item Value Reference Range Interpretation [...] FIO2 (test code = 24 % COHBGFFIO2) PaO2/[id number] 12:31:00 Test Item Value Reference Range Interpretation Comments PaO2/FiO2 (test code = MLD4YMD1) 307.50 mm/Hg GLUCOSE BEDSIDE [id number] 12:00:00 Test Item Value Reference Range Interpretation Comments GLUCOSE BEDSIDE TESTING (test code 128 MG/DL 60-99 H = GLUBED) ARTERIAL BLOOD [id number] 10:42:00 Test Item Value Reference Range Interpretation [...] FIO2 (test code = COHBGFFIO2) 24 % PaO2/[id number] 10:42:00 Test Item Value Reference Range Interpretation Comments PaO2/FiO2 (test code = YNF7YBB9) mm/Hg ARTERIAL BLOOD [id number] 10:42:00 Test Item Value Reference Range Interpretation [...] FIO2 (test code = COHBGFFIO2) 24 % PaO2/[id number] 10:42:00 Test Item Value Reference Range Interpretation Comments PaO2/FiO2 (test code = BLP5NCL7) 347.91 mm/Hg ARTERIAL BLOOD [id number] 09:30:00 Test Item Value Reference Range Interpretation [...] >37 TEMPA) [facility] AL ALLENS TEST (test code = ALLENS) NA CHECK FIO2 (test code = COHBGFFIO2) 24 % PaO2/[id number] 09:30:00 Test Item Value Reference Range Interpretation Comments PaO2/FiO2 (test code = EPS4UGN2) mm/Hg ARTERIAL BLOOD [id number] 09:30:00 Test Item Value Reference Range Interpretation [...] FIO2 (test code = COHBGFFIO2) 24 % PaO2/[id number] 09:30:00 Test Item Value Reference Range Interpretation Comments PaO2/FiO2 (test code = ZJN4ITM7) 315.41 mm/Hg BASIC METABOLIC [id number] 07:27:00 Test Item Value Reference Range Interpretation [...] MG/DL 8.4-10.2 N CA) GAVE TUBES TO [id number] 07:27:00 Test Item Value Reference Range Interpretation Comments PHOSPHOROUS (test code = PHOS) 4.2 MG/DL 2.5-4.5 N GAVE TUBES TO [id number] 07:27:00 Test Item Value Reference Range Interpretation Comments MAGNESIUM (test code = MAG) 2.0 MG/DL 1.6-2.3 N GAVE TUBES TO JUVENCBNBASIC METABOLIC [id number] 07:26:00 Test Item Value Reference Range Interpretation [...] = MG/DL 8.7-9.7 CA) GAVE TUBES TO [id number] 07:26:00 Test Item Value Reference Range Interpretation Comments PHOSPHOROUS (test code = PHOS) MG/DL 2.5-4.5 GAVE TUBES TO [id number] 07:26:00 Test Item Value Reference Range Interpretation Comments MAGNESIUM (test code = MAG) MG/DL 1.6-2.3 [facility]UBES TO [facility]OL[facility] [id number] 07:23:00 Test Item Value Reference Range Interpretation [...] = CA) MG/DL 8.7-9.7 GAVE TUBES TO [id number] 07:23:00 Test Item Value Reference Range Interpretation Comments PHOSPHOROUS (test code = PHOS) MG/DL 2.5-4.5 GAVE TUBES TO [id number] 07:23:00 Test Item Value Reference Range Interpretation Comments MAGNESIUM (test code = MAG) MG/DL 1.6-2.3 [facility] W/O [id number] 07:20:00 Test Item Value Reference Range Interpretation [...] code = NRBC#) GAVE TUBES TO JUVENCBNDIFFERENTIAL [id number] 07:20:00 Test Item Value Reference Range Interpretation Comments RBC MORPHOLOGY REQUIRED (test code = RBCM) PLATELET ESTIMATE (test code = PLTEST) ADEQUATE PLATELET MORPHOLOGY (test code = NORMAL PLTMORPH) GAVE TUBES TO JUVENCBNWBC [id number] 07:20:00 Test Item Value Reference Range Interpretation Comments TOTAL CELLS COUNTED (test code = TCC) #CELLS SEGMENTED NEUTROPHILS (test code = % 36.2-73.8 SEG) LYMPHOCYTE (test code = LYMPH) % 12.9-45.1 MONOCYTE (test code = MON) % 0-11 GAVE TUBES TO JUVENCBNCBC W/AUTO [id number] 07:20:00 Test Item Value Reference Range Interpretation [...] code = NRBC#) GAVE TUBES TO JUVENCBNWBC [id number] 07:20:00 Test Item Value Reference Range Interpretation [...] NORMAL PLTMORPH) GAVE TUBES TO JUVENCBNGLUCOSE BEDSIDE [id number] 20:59:00 Test Item Value Reference Range Interpretation Comments GLUCOSE BEDSIDE TESTING (test code 108 MG/DL 60-99 H = GLUBED) HGB [id number] 20:16:00 Test Item Value Reference Range Interpretation Comments HEMOGLOBIN (test code = HGB) 10.4 G/DL 11.2-14.9 L HEMATOCRIT (test code = HCT) 31.8 % 33.2-43.5 L ARTERIAL BLOOD [id number] 20:09:00 Test Item Value Reference Range Interpretation [...] FIO2 (test code = 24 % COHBGFFIO2) PaO2/[id number] 20:09:00 Test Item Value Reference Range Interpretation Comments PaO2/FiO2 (test code = JQI0AMB2) mm/Hg ARTERIAL BLOOD [id number] 20:09:00 Test Item Value Reference Range Interpretation [...] FIO2 (test code = 24 % COHBGFFIO2) PaO2/[id number] 20:09:00 Test Item Value Reference Range Interpretation Comments PaO2/FiO2 (test code = OVO8TNK0) 378.75 mm/Hg ARTERIAL BLOOD [id number] 16:56:00 Test Item Value Reference Range Interpretation [...] = SATA) report to and readback by DAINLO CEBALLOS by MAKSIM FORTUNE at 12/26/2019 4:55:50 [...] FIO2 (test code = 24 % COHBGFFIO2) PaO2/[id number] 16:56:00 Test Item Value Reference Range Interpretation Comments PaO2/FiO2 (test code = SBP9PRO0) mm/Hg ARTERIAL BLOOD [id number] 16:56:00 Test Item Value Reference Range Interpretation [...] FIO2 (test code = 24 % COHBGFFIO2) PaO2/[id number] 16:56:00 Test Item Value Reference Range Interpretation Comments PaO2/FiO2 (test code = VZL7JPR6) 413.75 mm/Hg GLUCOSE BEDSIDE [id number] 16:14:00 Test Item Value Reference Range Interpretation Comments GLUCOSE BEDSIDE TESTING (test code 106 MG/DL 60-99 H = GLUBED) HGB [id number] 15:44:00 Test Item Value Reference Range Interpretation Comments HEMOGLOBIN (test code = HGB) 9.9 G/DL 11.2-14.9 L HEMATOCRIT (test code = HCT) 29.1 % 33.2-43.5 L LACTIC [id number] 11:54:00 Test Item Value Reference Range Interpretation Comments LACTIC ACID (test code = LACT) 1.7 MMOL/L 0.7-2.1 N GLUCOSE BEDSIDE [id number] 11:16:00 Test Item Value Reference Range Interpretation Comments GLUCOSE BEDSIDE TESTING (test code 123 MG/DL 60-99 H = GLUBED) ARTERIAL BLOOD [id number] 10:36:00 Test Item Value Reference Range Interpretation [...] FIO2 (test code = COHBGFFIO2) 24 % PaO2/[id number] 10:36:00 Test Item Value Reference Range Interpretation Comments PaO2/FiO2 (test code = ZEO6DAD8) mm/Hg ARTERIAL BLOOD [id number] 10:36:00 Test Item Value Reference Range Interpretation [...] FIO2 (test code = COHBGFFIO2) 24 % PaO2/[id number] 10:36:00 Test Item Value Reference Range Interpretation Comments PaO2/FiO2 (test code = NAL6CJC9) 414.16 mm/Hg HGB [id number] 07:58:00 Test Item Value Reference Range Interpretation Comments HEMOGLOBIN (test code = HGB) 9.6 G/DL 11.2-14.9 L HEMATOCRIT (test code = HCT) 28.7 % 33.2-43.5 L GLUCOSE BEDSIDE [id number] 07:48:00 Test Item Value Reference Range Interpretation Comments GLUCOSE BEDSIDE TESTING 120 MG/DL 60-99 H Noti fied Nurse~ (test code = GLUBED) [id number] 05:42:00 Test Item Value Reference Range Interpretation Comments VANCOMYCIN (test code = VANCO) 16.2 mcg/ML 5.0-26.0 N BASIC METABOLIC [id number] 05:38:00 Test Item Value Reference Range Interpretation [...] code = 8.6 MG/DL 8.4-10.2 N CA) [id number] 05:38:00 Test Item Value Reference Range Interpretation Comments PHOSPHOROUS (test code = PHOS) 3.8 MG/DL 2.5-4.5 N [id number] 05:38:00 Test Item Value Reference Range Interpretation Comments MAGNESIUM (test code = MAG) 2.0 MG/DL 1.6-2.3 N BASIC METABOLIC [id number] 05:37:00 Test Item Value Reference Range Interpretation [...] CALCIUM (test code = MG/DL 8.7-9.7 CA) [id number] 05:37:00 Test Item Value Reference Range Interpretation Comments PHOSPHOROUS (test code = PHOS) 3.8 MG/DL 2.5-4.5 N [id number] 05:37:00 Test Item Value Reference Range Interpretation Comments MAGNESIUM (test code = MAG) MG/DL 1.6-2.3 LACTIC [id number] 05:37:00 Test Item Value Reference Range Interpretation Comments LACTIC ACID (test code = LACT) 1.5 MMOL/L 0.7-2.1 N PROTHROMBIN [id number] 05:37:00 Test Item Value Reference Range Interpretation Comments PROTHROMBIN TIME 32.6 SECONDS 9.4-12.5 H PATIENT (test code = PTP) INTERNATIONAL NORMAL 2.9 The INR is to be RATIO (test code = used only for INR) monitoring oral anticoagulantth erap y. INDICATION I NR VALUE ---- ---- ---- -------1. Prophylaxis, de ep venous thrombos is, including high risk surgery. 2.0 - 3.0 2. Prophylaxis, deep venous thrombosis, hip surgery, treatm ent for deep venous thrombosis or pulmonary prevention of systemic emboli sm in patients wit h valvular heart disease, atrial fibrillation, tissue heart va lve, or acute myocar dial infarction. 2.0 - 3.0 3. Calender Roll Operator al prosthesis hear t valves, recurre nt systemic emboli sm. 3.0 - 4.5 BASIC METABOLIC [id number] 05:36:00 Test Item Value Reference Range Interpretation [...] CALCIUM (test code = MG/DL 8.7-9.7 CA) [id number] 05:36:00 Test Item Value Reference Range Interpretation Comments PHOSPHOROUS (test code = PHOS) MG/DL 2.5-4.5 [id number] 05:36:00 Test Item Value Reference Range Interpretation Comments MAGNESIUM (test code = MAG) MG/DL 1.6-2.3 BASIC METABOLIC [id number] 05:33:00 Test Item Value Reference Range Interpretation Comments SODIUM (test code = NA) MMOL/L 137-145 POTASSIUM (test code = K) MMOL/L 3.5-5.1 CHLORIDE (test code = CL) 109 MMOL/L 98-107 H CARBON DIOXIDE (test code = CO2) MMOL/L 22-30 GLUCOSE (test code = GLU) MG/DL 74-106 BLOOD UREA NITROGEN (test code = MG/DL 08-24 BUN) GLOMERULAR FILTRATION RATE (test code = GFR) CREATININE (test code = CREAT) MG/DL 0.52-1.04 CALCIUM (test code = CA) MG/DL 8.7-9.7 [id number] 05:33:00 Test Item Value Reference Range Interpretation Comments PHOSPHOROUS (test code = PHOS) MG/DL 2.5-4.5 [id number] 05:33:00 Test Item Value Reference Range Interpretation Comments MAGNESIUM (test code = MAG) MG/DL 1.6-2.3 BASIC METABOLIC [id number] 05:33:00 Test Item Value Reference Range Interpretation [...] CALCIUM (test code = CA) MG/DL 8.7-9.7 [id number] 05:33:00 Test Item Value Reference Range Interpretation Comments PHOSPHOROUS (test code = PHOS) MG/DL 2.5-4.5 [id number] 05:33:00 Test Item Value Reference Range Interpretation Comments MAGNESIUM (test code = MAG) MG/DL 1.6-2.3 CBC W/AUTO [id number] 05:26:00 Test Item Value Reference Range Interpretation [...] = 0.03 K/mm3 0.0-0.1 N NRBC#) DIFFERENTIAL [id number] 05:26:00 Test Item Value Reference Range Interpretation Comments RBC MORPHOLOGY REQUIRED (test code = RBCM) PLATELET ESTIMATE (test code = PLTEST) ADEQUATE PLATELET MORPHOLOGY (test code = NORMAL PLTMORPH) CBC W/AUTO [id number] 05:26:00 Test Item Value Reference Range Interpretation [...] = 0.03 K/mm3 0.0-0.1 N NRBC#) DIFFERENTIAL [id number] 05:26:00 Test Item Value Reference Range Interpretation Comments RBC MORPHOLOGY REQUIRED (test code = RBCM) PLATELET ESTIMATE (test code = PLTEST) ADEQUATE PLATELET MORPHOLOGY (test code = NORMAL PLTMORPH) ARTERIAL BLOOD [id number] 04:54:00 Test Item Value Reference Range Interpretation [...] SATA) report to and readback by by MAKSIMJBChantal at 12/26/2019 4:47 :35 AM ABG DELIVERY [...] FIO2 (test code = 24 % COHBGFFIO2) PaO2/[id number] 04:54:00 Test Item Value Reference Range Interpretation Comments PaO2/FiO2 (test code = EPJ7FPK5) mm/Hg ARTERIAL BLOOD [id number] 04:54:00 Test Item Value Reference Range Interpretation [...] FIO2 (test code = 24 % COHBGFFIO2) PaO2/[id number] 04:54:00 Test Item Value Reference Range Interpretation Comments PaO2/FiO2 (test code = QPF5MZP3) 394.16 mm/Hg GLUCOSE BEDSIDE [id number] 21:17:00 Test Item Value Reference Range Interpretation Comments GLUCOSE BEDSIDE TESTING (test code 127 MG/DL 60-99 H = GLUBED) HGB [id number] 19:42:00 Test Item Value Reference Range Interpretation Comments HEMOGLOBIN (test code = HGB) 10.1 G/DL 11.2-14.9 L HEMATOCRIT (test code = HCT) 30.4 % 33.2-43.5 L UNABLE TO DRAW BLOOD, REASON: CBNNOTIFIED PATIENT CARE STAFF: [facility] 12/25/19 AT 1744 BY Kristen Henry AnGLUCOSE BEDSIDE [id number] 15:53:00 Test Item Value Reference Range Interpretation Comments GLUCOSE BEDSIDE TESTING 135 MG/DL 60-99 H Noti fied Nurse~ (test code = GLUBED) LACTIC [id number] 15:16:00 Test Item Value Reference Range Interpretation Comments LACTIC ACID (test code = LACT) 1.6 MMOL/L 0.7-2.1 N UNABLE TO DRAW BLOOD, REASON: CBNNOTIFIED PATIENT CARE STAFF: [facility] 12/25/19 AT 1412 BY Kristen HenryVANCOMYCIN [id number] 15:12:00 Test Item Value Reference Range Interpretation Comments VANCOMYCIN TROUGH (test code = 20.4 UG/ML 10.0-20.0 H VANCT) UNABLE TO DRAW BLOOD, REASON: CBNNOTIFIED PATIENT CARE STAFF: [facility] 12/25/19 AT 1411 BY Kristen Henry AnHGB [id number] 14:45:00 Test Item Value Reference Range Interpretation Comments HEMOGLOBIN (test code = HGB) 10.5 G/DL 11.2-14.9 L HEMATOCRIT (test code = HCT) 31.2 % 33.2-43.5 L UNABLE TO DRAW BLOOD, REASON: CBNNOTIFIED PATIENT CARE STAFF: [facility] 12/25/19 AT 1412 BY Kristen Henry AnLACTIC [id number] 12:57:00 Test Item Value Reference Range Interpretation Comments LACTIC ACID (test code = LACT) 1.4 MMOL/L 0.7-2.1 N GLUCOSE BEDSIDE [id number] 12:18:00 Test Item Value Reference Range Interpretation Comments GLUCOSE BEDSIDE TESTING 136 MG/DL 60-99 H Noti fied Nurse~ (test code = GLUBED) HGB [id number] 08:53:00 Test Item Value Reference Range Interpretation Comments HEMOGLOBIN (test code = HGB) 10.2 G/DL 11.2-14.9 L HEMATOCRIT (test code = HCT) 30.2 % 33.2-43.5 L UNABLE TO DRAW BLOOD, REASON: CBNNOTIFIED PATIENT CARE STAFF: [facility] 12/25/19 AT 0835 BY Aydee Daniels XR CHEST [id number] 07:44:00 [facility] : 1940 Sex: F Patient Name: JORGE A SHERMAN Unit No: [id number] EXAMS: CPT CODE: [id number] XR CHEST 1V [id number] LOCATION: T18 EXAM: CHEST 1 VIEW INDICATION: Respiratory distress, On Ventilator COMPARISON: Chest x-ray December TECHNIQUE: AP chest radiograph. FINDINGS: Worsening left [...] Yobani Elias, RT(R) Transcrpt Date/Tm/Trnsp: 12/25/2019 (0744) [id number] Orig Print D/T: S: 12/25/2019 (0747) [facility] NAME: JORGE A SHERMAN [id number] PHYS: [place] [address] : 1940 AGE: 79 SEX: F [facility]: [id number] LOC: Z.SI06 A PHONE #: [phone] EXAM DATE: 12/25/2019 STATUS: ADM IN FAX #: [phone] RADIOLOGY NO: PAGE 1 Signed ReportGLUCOSE BEDSIDE [id number] 07:42:00 Test Item Value Reference Range Interpretation Comments GLUCOSE BEDSIDE TESTING 132 MG/DL 60-99 H Noti fied Nurse~ (test code = GLUBED) PROTHROMBIN [id number] 05:02:00 Test Item Value Reference Range Interpretation Comments PROTHROMBIN TIME 36.3 SECONDS 9.4-12.5 H PATIENT (test code = PTP) INTERNATIONAL NORMAL 3.3 The INR is to be RATIO (test code = used only for INR) monitoring oral anticoagulantth erap y. INDICATION I NR VALUE ---- ---- ---- -------1. Prophylaxis, de ep venous thrombos is, including high risk surgery. 2.0 - 3.0 2. Prophylaxis, deep venous thrombosis, hip surgery, treatm ent for deep venous thrombosis or pulmonary prevention of systemic emboli sm in patients wit h valvular heart disease, atrial fibrillation, tissue heart va lve, or acute myocar dial infarction. 2. 0 - 3.0 3. Calender Roll Operator al prosthesis hear t valves, recurre nt systemic emboli sm. 3.0 - 4.5 ARTERIAL BLOOD [id number] 04:55:00 Test Item Value Reference Range Interpretation [...] FIO2 (test code = COHBGFFIO2) 35 % PaO2/[id number] 04:55:00 Test Item Value Reference Range Interpretation Comments PaO2/FiO2 (test code = [id number]) mm/Hg ARTERIAL BLOOD [id number] 04:55:00 Test Item Value Reference Range Interpretation [...] FIO2 (test code = COHBGFFIO2) 35 % PaO2/[id number] 04:55:00 Test Item Value Reference Range Interpretation Comments PaO2/FiO2 (test code = [id number]) 242.85 mm/Hg CBC W/O [id number] 04:33:00 Test Item Value Reference Range Interpretation Comments WHITE BLOOD CELL (test 36.4 K/MM3 3.8-9.8 HH MAYNARD D TO LIN M& code = [...] K/mm3 0.0-0.1 N code = NRBC#) DIFFERENTIAL [id number] 04:33:00 Test Item Value Reference Range Interpretation Comments RBC MORPHOLOGY REQUIRED (test code = ABNORMAL RBCM) POIKILOCYTOSIS (test code = POIK) FEW NONE ANISOCYTOSIS (test code = ANISO) SLIGHT NONE CRENATED CELLS (test code = CREN) FEW NONE PLATELET ESTIMATE (test code = ADEQUATE ADEQUATE PLTEST) PLATELET MORPHOLOGY (test code = NORMAL NORMAL PLTMORPH) WBC [id number] 04:33:00 Test Item Value Reference Range Interpretation [...] MON) 2.5 % 0-11 N CBC W/O [id number] 03:36:00 Test Item Value Reference Range Interpretation Comments WHITE BLOOD CELL (test 36.4 K/MM3 3.8-9.8 HH ALEYDA ECBALLOS M& code = WBC) READBACK ON 12/25/19 [...] K/mm3 0.0-0.1 N code = NRBC#) DIFFERENTIAL [id number] 03:36:00 Test Item Value Reference Range Interpretation Comments RBC MORPHOLOGY REQUIRED (test code = RBCM) PLATELET ESTIMATE (test code = PLTEST) ADEQUATE PLATELET MORPHOLOGY (test code = NORMAL PLTMORPH) WBC [id number] 03:36:00 Test Item Value Reference Range Interpretation Comments TOTAL CELLS COUNTED (test code = TCC) #CELLS SEGMENTED NEUTROPHILS (test code = % 36.2-73.8 SEG) LYMPHOCYTE (test code = LYMPH) % 12.9-45.1 MONOCYTE (test code = MON) % 0-11 CBC W/AUTO [id number] 03:36:00 Test Item Value Reference Range Interpretation [...] K/mm3 0.0-0.1 N code = NRBC#) WBC [id number] 03:36:00 Test Item Value Reference Range Interpretation Comments RBC MORPHOLOGY REQUIRED (test code = RBCM) TOTAL CELLS COUNTED (test code = TCC) #CELLS SEGMENTED NEUTROPHILS (test code = % 36.2-73.8 SEG) LYMPHOCYTE (test code = LYMPH) % 12.9-45.1 MONOCYTE (test code = MON) % 0-11 PLATELET ESTIMATE (test code = ADEQUATE PLTEST) PLATELET MORPHOLOGY (test code = NORMAL PLTMORPH) BASIC METABOLIC [id number] 03:28:00 Test Item Value Reference Range Interpretation [...] code = 8.6 MG/DL 8.4-10.2 N CA) [id number] 03:28:00 Test Item Value Reference Range Interpretation Comments PHOSPHOROUS (test code = PHOS) 3.4 MG/DL 2.5-4.5 N [id number] 03:28:00 Test Item Value Reference Range Interpretation Comments MAGNESIUM (test code = MAG) 2.3 MG/DL 1.6-2.3 [id number] 21:06:00 Test Item Value Reference Range Interpretation Comments POTASSIUM (test code = K) 3.8 MMOL/L 3.5-5.1 N UNABLE TO DRAW BLOOD, REASON: CBNNOTIFIED PATIENT CARE STAFF: [facility] 12/24/192019 BY Kristen Henry [id number] 21:06:00 Test Item Value Reference Range Interpretation Comments CALCIUM (test code = CA) 8.1 MG/DL 8.4-10.2 L UNABLE TO DRAW BLOOD, REASON: CBNNOTIFIED PATIENT CARE STAFF: [facility] 12/24/192019 BY Kristen Henry [id number] 21:06:00 Test Item Value Reference Range Interpretation Comments MAGNESIUM (test code = MAG) 1.9 MG/DL 1.6-2.3 UNABLE TO DRAW BLOOD, REASON: CBNNOTIFIED PATIENT CARE STAFF: [facility] 12/24/192019 BY Kristen Henry [id number] 21:05:00 Test Item Value Reference Range Interpretation Comments POTASSIUM (test code = K) 3.8 MMOL/L 3.5-5.1 N UNABLE TO DRAW BLOOD, REASON: CBNNOTIFIED PATIENT CARE STAFF: [facility] 12/24/192019 BY Kristen Henry [id number] 21:05:00 Test Item Value Reference Range Interpretation Comments CALCIUM (test code = CA) 8.1 MG/DL 8.4-10.2 L UNABLE TO DRAW BLOOD, REASON: CBNNOTIFIED PATIENT CARE STAFF: [facility] 12/24/192019 BY Kristen [id number] 21:05:00 Test Item Value Reference Range Interpretation Comments MAGNESIUM (test code = MAG) MG/DL 1.6-2.3 UNABLE TO DRAW BLOOD, REASON: CBNNOTIFIED PATIENT CARE STAFF: [facility] 12/24/192019 BY Kristen Henry [id number] 21:02:00 Test Item Value Reference Range Interpretation Comments POTASSIUM (test code = K) 3.8 MMOL/L 3.5-5.1 N UNABLE TO DRAW BLOOD, REASON: CBNNOTIFIED PATIENT CARE STAFF: [facility] 12/24/192019 BY Kristen Henry [id number] 21:02:00 Test Item Value Reference Range Interpretation Comments CALCIUM (test code = CA) MG/DL 8.7-9.7 UNABLE TO DRAW BLOOD, REASON: CBNNOTIFIED PATIENT CARE STAFF: [facility] 12/24/192019 BY Kristen [id number] 21:02:00 Test Item Value Reference Range Interpretation Comments MAGNESIUM (test code = MAG) MG/DL 1.6-2.3 UNABLE TO DRAW BLOOD, REASON: CBNNOTIFIED PATIENT CARE STAFF: [facility] 12/24/192019 BY Kristen HenryHGB [id number] 20:48:00 Test Item Value Reference Range Interpretation Comments HEMOGLOBIN (test code = HGB) 8.2 G/DL 11.2-14.9 L HEMATOCRIT (test code = HCT) 24.2 % 33.2-43.5 L UNABLE TO DRAW BLOOD, REASON: CBNNOTIFIED PATIENT CARE STAFF: [facility] 12/24/192019 BY Kristen Henry AnGLUCOSE BEDSIDE [id number] 20:27:00 Test Item Value Reference Range Interpretation Comments GLUCOSE BEDSIDE TESTING (test code 139 MG/DL 60-99 H = GLUBED) VANCOMYCIN [id number] 16:07:00 Test Item Value Reference Range Interpretation Comments VANCOMYCIN TROUGH (test code = 15.9 UG/ML 10.0-20.0 N VANCT) UNABLE TO DRAW BLOOD, REASON: CBNNOTIFIED PATIENT CARE STAFF: [place] [address]/15/20 AT 1519 BY Kristen Henry AnARTERIAL BLOOD [id number] 15:59:00 Test Item Value Reference Range Interpretation [...] FIO2 (test code = 35 % COHBGFFIO2) PaO2/[id number] 15:59:00 Test Item Value Reference Range Interpretation Comments PaO2/FiO2 (test code = [id number]) mm/Hg ARTERIAL BLOOD [id number] 15:59:00 Test Item Value Reference Range Interpretation [...] FIO2 (test code = 35 % COHBGFFIO2) PaO2/[id number] 15:59:00 Test Item Value Reference Range Interpretation Comments PaO2/FiO2 (test code = [id number]) 298.28 mm/Hg PTT [id number] 15:58:00 Test Item Value Reference Range Interpretation Comments PTT ACTIVATED (test code = APTT) 39.0 SECONDS 25.1-36.5 H UNABLE TO DRAW BLOOD, REASON: CBNNOTIFIED PATIENT CARE STAFF: [facility] 12/24/19 AT 1519 BY Kristen Henry AnHGB [id number] 15:41:00 Test Item Value Reference Range Interpretation Comments HEMOGLOBIN (test code = HGB) 8.2 G/DL 11.2-14.9 L HEMATOCRIT (test code = HCT) 24.6 % 33.2-43.5 L UNABLE TO DRAW BLOOD, REASON: CBNNOTIFIED PATIENT CARE STAFF: [facility] 12/24/19 AT 1519 BY Kristen Henry AnARTERIAL BLOOD [id number] 13:00:00 Test Item Value Reference Range Interpretation [...] FIO2 (test code = COHBGFFIO2) 35 % PaO2/[id number] 13:00:00 Test Item Value Reference Range Interpretation Comments PaO2/FiO2 (test code = EMY0WTX5) mm/Hg ARTERIAL BLOOD [id number] 13:00:00 Test Item Value Reference Range Interpretation [...] FIO2 (test code = COHBGFFIO2) 35 % PaO2/[id number] 13:00:00 Test Item Value Reference Range Interpretation Comments PaO2/FiO2 (test code = [id number]) 318.57 mm/Hg HGB [id number] 12:52:00 Test Item Value Reference Range Interpretation Comments HEMOGLOBIN (test code = HGB) 8.3 G/DL 11.2-14.9 L HEMATOCRIT (test code = HCT) 25.1 % 33.2-43.5 L ARTERIAL BLOOD [id number] 09:55:00 Test Item Value Reference Range Interpretation [...] code = 0.3 % 0.4-1.5 L METHGB) PaO2/[id number] 09:55:00 Test Item Value Reference Range Interpretation Comments PaO2/FiO2 (test code = AKO3JEH3) mm/Hg ARTERIAL BLOOD [id number] 09:55:00 Test Item Value Reference Range Interpretation [...] code = 0.3 % 0.4-1.5 L METHGB) PaO2/[id number] 09:55:00 Test Item Value Reference Range Interpretation Comments PaO2/FiO2 (test code = EYE0FKN3) 318.57 mm/Hg [id number] 09:53:00 Test Item Value Reference Range Interpretation Comments PHOSPHOROUS (test code = PHOS) 3.7 MG/DL 2.5-4.5 N [id number] 09:53:00 Test Item Value Reference Range Interpretation Comments MAGNESIUM (test code = MAG) 1.5 MG/DL 1.6-2.3 L LACTIC [id number] 09:12:00 Test Item Value Reference Range Interpretation Comments LACTIC ACID (test code = LACT) 1.5 MMOL/L 0.7-2.1 N HGB [id number] 08:55:00 Test Item Value Reference Range Interpretation Comments HEMOGLOBIN (test code = HGB) 8.5 G/DL 11.2-14.9 L HEMATOCRIT (test code = HCT) 25.3 % 33.2-43.5 L CBC W/O [id number] 07:59:00 Test Item Value Reference Range Interpretation Comments WHITE BLOOD CELL (test 33.9 K/MM3 3.8-9.8 HH ALEYDA Bell TO MARY M code = [...] K/mm3 0.0-0.1 N code = NRBC#) DIFFERENTIAL [id number] 07:59:00 Test Item Value Reference Range Interpretation Comments RBC MORPHOLOGY REQUIRED (test code = NORMAL RBCM) POIKILOCYTOSIS (test code = POIK) FEW NONE GIAN CELLS (test code = GIAN) FEW NONE PLATELET ESTIMATE (test code = ADEQUATE ADEQUATE PLTEST) PLATELET MORPHOLOGY (test code = NORMAL NORMAL PLTMORPH) WBC [id number] 07:59:00 Test Item Value Reference Range Interpretation [...] 0-0 H code = NRBC) GLUCOSE BEDSIDE [id number] 07:55:00 Test Item Value Reference Range Interpretation Comments GLUCOSE BEDSIDE TESTING (test code 125 MG/DL 60-99 H = GLUBED) - XR CHEST [id number] 06:07:00 [facility] : 1940 Sex: F Patient Name: JORGE A SHERMAN Unit No: [id number] EXAMS: CPT CODE: [id number] XR CHEST 1V 81712 Examination: One view chest x-ray Location code: [...] Infiltrate in left upper lobe and small bilateral pleural effusions stable when compared to the prior study. 2. Endotracheal tube and naso gastric tube stable in position when compared to the prior exam. at 0607 Reported and signed by: Anthony Boyer MD CC: Ramu Sutherland MD; Jose Alfredo Goff MD; Rashid Son MD Technologist: Yobani Elias, RT(R) Transcrpt Date/Tm/Tr nsp: 12/24/2019 (606) [email or web address] Orig Print D/T: S: 12/24/2019 (627) [facility] NAME: EFREN SHERMANA[address] PHYS: [place] [address] : 1940 AGE: 79 SEX: F LOC: Z.SI06 A PHONE #: [phone] EXAM DATE: 12/24/2019 STATUS: ADM IN FAX #: [phone] RADIOLOGY NO: PAGE 1 Signed ReportCOMPREHENSIVE METABOLIC [id number] 05:40:00 Test Item Value Reference Range Interpretation [...] Product TBil, BuBc: ======= ======= ======A ssay Eltrombopa g Analyte/ Max Ob served Avg. Bias Concentration Concentration Concentration== ======= ======= ======= =======TBil 7mg /dl TBil/ 1.2mg/dl +0.23mg.dl +0.20mg/dlBuBc 3.5mg/dl Bu/0.8 mg/dl +0.25mg/dl +0.24mg/dlBuBc 7 mg/dl Bu/14.2mg/dl +0.38mg/dl +0.25mg/dlBuBc 5mg/dl Bc/0mg/dl +0.25 mg/dl +0.15mg/dlBuBc 3.5mg/dl Bc/2.8 mg/dl +0.25mg/dl +0.2 3mg/dl SGOT/AST (test code = 42 UNITS/L 14-36 H AST) SGPT/ALT (test code = 15 UNITS/L <35 ALT) ALKALINE PHOSPHATASE 72 UNITS/L 38-126 N (test code = ALKP) COMPREHENSIVE METABOLIC [id number] 05:38:00 Test Item Value Reference Range Interpretation [...] UNITS/L 38-126 (test code = ALKP) LACTIC [id number] 05:38:00 Test Item Value Reference Range Interpretation Comments LACTIC ACID (test code = LACT) 2.1 MMOL/L 0.7-2.1 N COMPREHENSIVE METABOLIC [id number] 05:37:00 Test Item Value Reference Range Interpretation [...] code = UNITS/L 38-126 ALKP) COMPREHENSIVE METABOLIC [id number] 05:36:00 Test Item Value Reference Range Interpretation [...] (test code = UNITS/L 38-126 ALKP) PROTHROMBIN [id number] 05:32:00 Test Item Value Reference Range Interpretation Comments PROTHROMBIN TIME 33.7 SECONDS 9.4-12.5 H PATIENT (test code = PTP) INTERNATIONAL NORMAL 3.0 The INR is to be RATIO (test code = used only for INR) monitoring oral anticoagulantth erap y. INDICATION I NR VALUE ---- ---- ---- -------1. Prophylaxis, de ep venous thrombos is, including high risk surgery. 2.0 - 3.0 2. Prophylaxis, deep venous thrombosis, hip surgery, treatm ent for deep venous thrombosis or pulmonary prevention of systemic emboli sm in patients wit h valvular heart disease, atrial fibrillation, tissue heart va lve, or acute myocar dial infarction. 2.0 - 3.0 3. Calender Roll Operator al prosthesis hear t valves, recurre nt systemic emboli sm. 3.0 - 4.5 CBC W/O [id number] 05:27:00 Test Item Value Reference Range Interpretation Comments WHITE BLOOD CELL (test 33.9 K/MM3 3.8-9.8 HH ALEYDA Bell TO MARY M code = [...] K/mm3 0.0-0.1 N code = NRBC#) DIFFERENTIAL [id number] 05:27:00 Test Item Value Reference Range Interpretation Comments RBC MORPHOLOGY REQUIRED (test code = RBCM) PLATELET ESTIMATE (test code = PLTEST) ADEQUATE PLATELET MORPHOLOGY (test code = NORMAL PLTMORPH) WBC [id number] 05:27:00 Test Item Value Reference Range Interpretation Comments TOTAL CELLS COUNTED (test code = TCC) #CELLS SEGMENTED NEUTROPHILS (test code = % 36.2-73.8 SEG) LYMPHOCYTE (test code = LYMPH) % 12.9-45.1 MONOCYTE (test code = MON) % 0-11 CBC W/AUTO [id number] 05:27:00 Test Item Value Reference Range Interpretation Comments WHITE BLOOD CELL (test 33.9 K/MM3 3.8-9.8 HH MAYNARD D TO MARY M code = WBC) [...] K/mm3 0.0-0.1 N code = NRBC#) WBC [id number] 05:27:00 Test Item Value Reference Range Interpretation Comments RBC MORPHOLOGY REQUIRED (test code = RBCM) TOTAL CELLS COUNTED (test code = TCC) #CELLS SEGMENTED NEUTROPHILS (test code = % 36.2-73.8 SEG) LYMPHOCYTE (test code = LYMPH) % 12.9-45.1 MONOCYTE (test code = MON) % 0-11 PLATELET ESTIMATE (test code = ADEQUATE PLTEST) PLATELET MORPHOLOGY (test code = NORMAL PLTMORPH) HGB [id number] 00:34:00 Test Item Value Reference Range Interpretation Comments HEMOGLOBIN (test code = HGB) 7.4 G/DL 11.2-14.9 L HEMATOCRIT (test code = HCT) 23.1 % 33.2-43.5 L LACTIC [id number] 00:28:00 Test Item Value Reference Range Interpretation Comments LACTIC ACID (test code = LACT) 2.2 MMOL/L 0.7-2.1 H GLUCOSE BEDSIDE [id number] 00:12:00 Test Item Value Reference Range Interpretation Comments GLUCOSE BEDSIDE TESTING (test code = 88 MG/DL 60-99 N GLUBED) GLUCOSE BEDSIDE [id number] 22:03:00 Test Item Value Reference Range Interpretation Comments GLUCOSE BEDSIDE TESTING (test code = 75 MG/DL 60-99 N GLUBED) LACTIC [id number] 18:59:00 Test Item Value Reference Range Interpretation Comments LACTIC ACID (test code = LACT) 2.7 MMOL/L 0.7-2.1 H UNABLE TO DRAW BLOOD, REASON: CBNNOTIFIED PATIENT CARE STAFF: [facility] 12/23/19 AT 1333 BY Kristen Henry AnGLUCOSE BEDSIDE [id number] 16:34:00 Test Item Value Reference Range Interpretation Comments GLUCOSE BEDSIDE TESTING (test code = 81 MG/DL 60-99 N GLUBED) LACTIC [id number] 16:07:00 Test Item Value Reference Range Interpretation Comments LACTIC ACID (test code = LACT) 2.8 MMOL/L 0.7-2.1 H UNABLE TO DRAW BLOOD, REASON: CBNNOTIFIED PATIENT CARE STAFF: [facility] 12/23/19 AT 1333 BY Kristen Henry [id number] 15:54:00 Test Item Value Reference Range Interpretation Comments HEMOGLOBIN (test code = HGB) 7.8 G/DL 11.2-14.9 L UNABLE TO DRAW BLOOD, REASON: CBNNOTIFIED PATIENT CARE STAFF: [facility] 12/23/19 AT 1333 BY Kristen HenryHGB [id number] 12:42:00 Test Item Value Reference Range Interpretation Comments HEMOGLOBIN (test code = HGB) 9.4 G/DL 11.2-14.9 L HEMATOCRIT (test code = HCT) 28.8 % 33.2-43.5 L BASIC METABOLIC [id number] 12:29:00 Test Item Value Reference Range Interpretation [...] code = 7.6 MG/DL 8.4-10.2 L CA) [id number] 12:29:00 Test Item Value Reference Range Interpretation Comments MAGNESIUM (test code = MAG) 1.4 MG/DL 1.6-2.3 L LACTIC [id number] 12:27:00 Test Item Value Reference Range Interpretation Comments LACTIC ACID (test code = LACT) 3.1 MMOL/L 0.7-2.1 H BASIC METABOLIC [id number] 12:27:00 Test Item Value Reference Range Interpretation [...] CALCIUM (test code = MG/DL 8.7-9.7 CA) [id number] 12:27:00 Test Item Value Reference Range Interpretation Comments MAGNESIUM (test code = MAG) MG/DL 1.6-2.3 BASIC METABOLIC [id number] 12:24:00 Test Item Value Reference Range Interpretation [...] CALCIUM (test code = CA) MG/DL 8.7-9.7 [id number] 12:24:00 Test Item Value Reference Range Interpretation Comments MAGNESIUM (test code = MAG) MG/DL 1.6-2.3 LACTIC [id number] 09:12:00 Test Item Value Reference Range Interpretation Comments LACTIC ACID (test code = LACT) 3.6 MMOL/L 0.7-2.1 H [id number] 09:05:00 Test Item Value Reference Range Interpretation Comments HEMOGLOBIN (test code = HGB) 10.9 G/DL 11.2-14.9 L - XR CHEST [id number] 06:04:00 [facility] : 1940 Sex: F Patient Name: JORGE A SHERMAN Unit No: [id number] EXAMS: CPT CODE: [id number] XR CHEST 1V 77680 LOCATION: H43 EXAM: - XR CHEST 1V [...] but below the left hemidiaphragm. IMPRESSION: No int erval change in cardiopulmonary status. Endotracheal tube has been advanced and appears adequately positioned. at 0604 Reported and signed by:Deb Rivera MD CC: Ramu Sutherland MD; Jose Alfredo Goff MD; Rashid Son MD Technologist: Yobani Elias, RT(R) Transcrpt Date/Tm/Trnsp: 12/23/2019 (0604) [email or web address] Orig Print D/T: S: 12/23/2019 (0707) [facility] NAME: JORGE A SHERMAN [id number] PHYS: [place] [address] : 1940 AGE: 79 SEX: F LOC: Z.SI06 A PHONE #: [phone] EXAM DATE: 12/23/2019 STATUS: ADM IN FAX #: [phone] RADIOLOGY NO: PAGE 1 Signed ReportCBC W/AUTO [id number] 05:32:00 Test Item Value Reference Range Interpretation [...] 0.02 K/mm3 0.0-0.1 N NRBC#) COMPREHENSIVE METABOLIC [id number] 05:23:00 Test Item Value Reference Range Interpretation [...] Product TBil, BuBc: ======= ======= ======A ssay Eltrombopa g Analyte/ Max O bserved Avg. Bias Concentration Concentration Concentration== ======= ======= ======= =======TBil 7mg /dl TBil/ 1.2mg/dl +0.23mg.dl +0.20mg/dlBuBc 3.5mg/dl Bu/0.8 mg/dl +0.25mg/dl +0.24mg/dlBuBc 7 mg/dl Bu/14.2mg/dl +0.38mg/dl +0.25mg/dlBuBc 5mg/dl Bc/0mg/dl +0.25 mg/dl +0.15mg/dlBuBc 3.5mg/dl Bc/2. 8mg/dl +0.25mg/dl +0.2 3mg/dl SGOT/AST (test code = 33 UNITS/L 14-36 AST) SGPT/ALT (test code = 16 UNITS/L <35 ALT) ALKALINE PHOSPHATASE 45 UNITS/L 38-126 (test code = ALKP) COMPREHENSIVE METABOLIC [id number] 05:09:00 Test Item Value Reference Range Interpretation [...] code = UNITS/L 38-126 ALKP) COMPREHENSIVE METABOLIC [id number] 05:08:00 Test Item Value Reference Range Interpretation [...] (test code = UNITS/L 38-126 ALKP) LACTIC [id number] 05:04:00 Test Item Value Reference Range Interpretation Comments LACTIC ACID (test code = LACT) 3.8 MMOL/L 0.7-2.1 H PATIENT RECEIVING BLOODCBC W/AUTO [id number] 03:12:00 Test Item Value Reference Range Interpretation [...] K/mm3 0.0-0.1 N code = NRBC#) WBC [id number] 03:12:00 Test Item Value Reference Range Interpretation [...] (test code = NORMAL NORMAL PLTMORPH) PROTHROMBIN [id number] 00:01:00 Test Item Value Reference Range Interpretation Comments PROTHROMBIN TIME 28.0 SECONDS 9.4-12.5 H PATIENT (test code = PTP) INTERNATIONAL NORMAL 2.5 The INR is to be RATIO (test code = used only for INR) monitoring oral anticoagulantth erap y. INDICATION I NR VALUE ---- ---- ---- -------1. Prophylaxis, de ep venous thrombos is, including high risk surgery. 2.0 - 3.0 2. Prophylaxis, deep venous thrombosis, hip surgery, treatm ent for deep venous thrombosis or pulmonary prevention of systemic emboli sm in patients wit h valvular heart disease, atrial fibrillation, tissue heart va lve, or acute myocar dial infarction. 2.0 - 3.0 3. Calender Roll Operator al prosthesis hear t valves, recurre nt systemic emboli sm. 3.0 - 4.5 QNS AT 2318. SPOKE TO [facility]. LINE DRAWPTT [id number] 00:01:00 Test Item Value Reference Range Interpretation Comments PTT ACTIVATED (test code = APTT) 47.6 SECONDS 25.1-36.5 H QNS AT 2318. SPOKE TO [facility]. LINE [id number] 00:01:00 Test Item Value Reference Range Interpretation Comments FIBRINOGEN (test code = FIB) 181 mg/dL 200-393 L QNS AT 2318. SPOKE TO [facility]. LINE [id number] 00:01:00 Test Item Value Reference Range Interpretation Comments D-DIMER (test 24118 ng/mLFEU 0-499 H Negative Pre dictive Value [...] pr ocedures. QNS AT 2318. SPOKE TO [facility]. LINE DRAWARTERIAL BLOOD [id number] 23:52:00 Test Item Value Reference Range Interpretation [...] FIO2 (test code = COHBGFFIO2) 85 % PaO2/[id number] 23:52:00 Test Item Value Reference Range Interpretation Comments PaO2/FiO2 (test code = [id number]) mm/Hg ARTERIAL BLOOD [id number] 23:52:00 Test Item Value Reference Range Interpretation [...] FIO2 (test code = COHBGFFIO2) 85 % PaO2/[id number] 23:52:00 Test Item Value Reference Range Interpretation Comments PaO2/FiO2 (test code = [id number]) 99.88 mm/Hg BASIC METABOLIC [id number] 23:35:00 Test Item Value Reference Range Interpretation Comments SODIUM (test code = 140 MMOL/L 137-145 N NA) POTASSIUM (test code = 2.6 MMOL/L 3.5-5.1 LL MAYNARD D TO NIVIA Hodges& Vernell) READBACK ON AT 2335 BY [...] CALCIUM (test code = MG/DL 8.7-9.7 CA) [id number] 23:35:00 Test Item Value Reference Range Interpretation Comments AMYLASE (test code = CAROLE) 89 UNITS/L 30-110 N [id number] 23:35:00 Test Item Value Reference Range Interpretation Comments LIPASE (test code = LIP) UNITS/L 23-300 [id number] 23:35:00 Test Item Value Reference Range Interpretation Comments MAGNESIUM (test code = MAG) MG/DL 1.6-2.3 BASIC METABOLIC [id number] 23:35:00 Test Item Value Reference Range Interpretation Comments SODIUM (test code = 140 MMOL/L 137-145 N NA) POTASSIUM (test code = 2.6 MMOL/L 3.5-5.1 JAVIER Bell TO NIVIA Hodges& Vernell) READBACK ON AT 2335 BY [...] code = 8.0 MG/DL 8.4-10.2 L CA) [id number] 23:35:00 Test Item Value Reference Range Interpretation Comments AMYLASE (test code = CAROLE) 89 UNITS/L 30-110 N [id number] 23:35:00 Test Item Value Reference Range Interpretation Comments LIPASE (test code = LIP) 39 UNITS/L 23-300 N [id number] 23:35:00 Test Item Value Reference Range Interpretation Comments MAGNESIUM (test code = MAG) 1.4 MG/DL 1.6-2.3 L LACTIC [id number] 23:32:00 Test Item Value Reference Range Interpretation Comments LACTIC ACID (test code = LACT) 2.6 MMOL/L 0.7-2.1 H BASIC METABOLIC [id number] 23:31:00 Test Item Value Reference Range Interpretation [...] CALCIUM (test code = CA) MG/DL 8.7-9.7 [id number] 23:31:00 Test Item Value Reference Range Interpretation Comments AMYLASE (test code = CAROLE) UNITS/L 30-110 [id number] 23:31:00 Test Item Value Reference Range Interpretation Comments LIPASE (test code = LIP) UNITS/L 23-300 [id number] 23:31:00 Test Item Value Reference Range Interpretation Comments MAGNESIUM (test code = MAG) MG/DL 1.6-2.3 CBC W/AUTO [id number] 23:28:00 Test Item Value Reference Range Interpretation [...] K/mm3 0.0-0.1 N code = NRBC#) DIFFERENTIAL [id number] 23:28:00 Test Item Value Reference Range Interpretation Comments RBC MORPHOLOGY REQUIRED (test code = RBCM) PLATELET ESTIMATE (test code = PLTEST) ADEQUATE PLATELET MORPHOLOGY (test code = NORMAL PLTMORPH) CBC W/AUTO [id number] 23:28:00 Test Item Value Reference Range Interpretation [...] K/mm3 0.0-0.1 N code = NRBC#) DIFFERENTIAL [id number] 23:28:00 Test Item Value Reference Range Interpretation Comments RBC MORPHOLOGY REQUIRED (test code = RBCM) PLATELET ESTIMATE (test code = PLTEST) ADEQUATE PLATELET MORPHOLOGY (test code = NORMAL PLTMORPH) PLATELET [id number] 23:14:00 Test Item Value Reference Range Interpretation Comments PLATELET COUNT TEST NOT PERFORMED 129-368 SEE CBC REPORT (test code = PLT) K/MM3 - XR CHEST [id number] 23:02:00 [facility] : 1940 Sex: F Patient Name: JORGE A SHERMAN Unit No: [id number] EXAMS: CPT CODE: [id number] XR CHEST 1V [id number] AFTER HOURS SERVICE ON: 12/22/2019 11:01 PM AP Portable Chest Location Code M12 HISTORY: Intubated FINDINGS: There is a worsening consolidation and infiltrates in the left lung base now also involving the upper lobe compared to prior x-ray of 12/21/2019. There is no pneumothorax or sizable pleural effusion. There isan NGT in the stomach but the end [...] (2301) AuraMA50 Orig Print D/T: S: 12/22/2019 (7856) [facility] NAME: JORGE A SHERMAN [id number] PHYS: [place] [address] : 1940 AGE: 79 SEX: F LOC: Z.SI06 A PHONE #: [phone] EXAM DATE: 12/22/2019 STATUS: ADM IN FAX #: [phone] RADIOLOGY NO: PAGE 1 Signed ReportARTERIAL BLOOD [id number] 22:53:00 Test Item Value Reference Range Interpretation [...] SATA) report to and readback by by MAKSIMHQRay at 12/22/2019 10:5 2:56 PM ABG DELIVERY (test AMBU code = [place]AR[place]) ABG TEMPERATURE (test 37.0 C >37 code = TEMPA) ABG SITE (test code = AL SITEA) ALLENS TEST (test code NA CHECK = ALLENS) FIO2 (test code = 100 % COHBGFFIO2) PaO2/[id number] 22:53:00 Test Item Value Reference Range Interpretation Comments PaO2/FiO2 (test code = [id number]) mm/Hg ARTERIAL BLOOD [id number] 22:53:00 Test Item Value Reference Range Interpretation [...] SATA) report to and readback by by BERTA at 12/22/2019 10:5 2:56 PM ABG DELIVERY (test AMBU code = KAROLINA) ABG TEMPERATURE (test 37.0 C >37 code = TEMPA) ABG SITE (test code = AL SITEA) ALLENS TEST (test code NA CHECK = ALLENS) FIO2 (test code = 100 % COHBGFFIO2) PaO2/[id number] 22:53:00 Test Item Value Reference Range Interpretation Comments PaO2/FiO2 (test code = [id number]) 160.40 mm/Hg BASIC METABOLIC [id number] 19:39:00 Test Item Value Reference Range Interpretation [...] 7.4 MG/DL 8.4-10.2 L CA) Comments to Dukey Rider: USE BLOOD RECENTLY COLLECTED PLEASEIs this a LINE draw? NBASIC METABOLIC [id number] 19:38:00 Test Item Value Reference Range Interpretation [...] code = MG/DL 8.7-9.7 CA) Comments to Dukey Rider: USE BLOOD RECENTLY COLLECTED PLEASEIs this a LINE draw? NBASIC METABOLIC [id number] 19:36:00 Test Item Value Reference Range Interpretation [...] code = CA) MG/DL 8.7-9.7 Comments to Dukey Rider: USE BLOOD RECENTLY COLLECTED PLEASEIs this a LINE draw? NPROTHROMBIN [id number] 19:22:00 Test Item Value Reference Range Interpretation Comments PROTHROMBIN TIME 17.1 SECONDS 9.4-12.5 H PATIENT (test code = PTP) INTERNATIONAL NORMAL 1.6 The INR is to be RATIO (test code = used only for INR) monitoring oral anticoagulantth erap y. INDICATION I NR VALUE ---- ---- ---- -------1. Prophylaxis, de ep venous thrombos is, including high risk surgery. 2.0 - 3.0 2. Prophylaxis, deep venous thrombosis, hip surgery, treatm ent for deep venous thrombosis or pulmonary prevention of systemic emboli sm in patients wit h valvular heart disease, atrial fibrillation, tissue heart va lve, or acute myocar dial infarction. 2.0 - 3.0 3. Calender Roll Operator al prosthesis hear t valves, recurre nt systemic emboli sm. 3.0 - 4.5 Comments to Dukey Rider: USE BLOOD RECENTLY COLLECTED PLEASE PELASEPTT [id number] 19:22:00 Test Item Value Reference Range Interpretation Comments PTT ACTIVATED (test code = APTT) 28.4 SECONDS 25.1-36.5 N Comments to Dukey Rider: USE BLOOD RECENTLY COLLECTED PLEASE PELASEHGB HCT 2019-12-22 18:56:00 Test Item Value Reference Range Interpretation Comments HEMOGLOBIN (test code = HGB) 8.8 G/DL 11.2-14.9 L HEMATOCRIT (test code = HCT) 27.5 % 33.2-43.5 L GLUCOSE BEDSIDE [id number] 17:38:00 Test Item Value Reference Range Interpretation Comments GLUCOSE BEDSIDE TESTING (test code = 86 MG/DL 60-99 N GLUBED) HGB [id number] 14:37:00 Test Item Value Reference Range Interpretation Comments HEMOGLOBIN (test code = HGB) 9.3 G/DL 11.2-14.9 L HEMATOCRIT (test code = HCT) 29.2 % 33.2-43.5 L GLUCOSE BEDSIDE [id number] 12:04:00 Test Item Value Reference Range Interpretation Comments GLUCOSE BEDSIDE TESTING (test code = 88 MG/DL 60-99 N GLUBED) COMPREHENSIVE METABOLIC [id number] 07:26:00 Test Item Value Reference Range Interpretation [...] Product TBil, BuBc: ======= ======= ======A ssay Eltrombopa g Analyte/ Max Ob served Avg. Bias Concentration Concentration Concentration== ======= ======= ======= =======TBil 7mg /dl TBil/ 1.2mg/dl +0.23mg.dl +0.20mg/dlBuBc 3.5mg/dl Bu/0.8 mg/dl +0.25mg/dl +0.24mg/dlBuBc 7 mg/dl Bu/14.2mg/dl +0.38mg/dl +0.25mg/dlBuBc 5mg/dl Bc/0mg/dl +0.25 mg/dl +0.15mg/dlBuBc 3.5mg/dl Bc/2.8 mg/dl +0.25mg/dl +0.2 3mg/dl SGOT/AST (test code 70 UNITS/L 14-36 H = AST) SGPT/ALT (test code 30 UNITS/L <35 = ALT) ALKALINE PHOSPHATASE 116 UNITS/L 38-126 N (test code = ALKP) COMPREHENSIVE METABOLIC [id number] 07:25:00 Test Item Value Reference Range Interpretation [...] Product TBil, BuBc: ======= ======= ======A ssay Eltrombopa g Analyte/ Max Ob served Avg. Bias Concentration Concentration Concentration== ======= ======= ======= =======TBil 7mg /dl TBil/ 1.2mg/dl +0.23mg.dl +0.20mg/dlBuBc 3.5mg/dl Bu/0.8 mg/dl +0.25mg/dl +0.24mg/dlBuBc 7 mg/dl Bu/14.2mg/dl +0.38mg/dl +0.25mg/dlBuBc 5mg/dl Bc/0mg/dl +0.25 mg/dl +0.15mg/dlBuBc 3.5mg/dl Bc/2.8 mg/dl +0.25mg/dl +0.2 3mg/dl SGOT/AST (test code 70 UNITS/L 14-36 H = AST) SGPT/ALT (test code UNITS/L <35 = ALT) ALKALINE PHOSPHATASE 116 UNITS/L 38-126 N (test code = ALKP) COMPREHENSIVE METABOLIC [id number] 07:23:00 Test Item Value Reference Range Interpretation [...] code = UNITS/L 38-126 ALKP) COMPREHENSIVE METABOLIC [id number] 07:22:00 Test Item Value Reference Range Interpretation [...] code = UNITS/L 38-126 ALKP) GLUCOSE BEDSIDE [id number] 07:16:00 Test Item Value Reference Range Interpretation Comments GLUCOSE BEDSIDE TESTING (test code = 96 MG/DL 60-99 N GLUBED) PROTHROMBIN [id number] 07:04:00 Test Item Value Reference Range Interpretation Comments PROTHROMBIN TIME 20.2 SECONDS 9.4-12.5 H PATIENT (test code = PTP) INTERNATIONAL NORMAL 1.8 The INR is to be RATIO (test code = used only for INR) monitoring oral anticoagulantth erap y. INDICATION I NR VALUE ---- ---- ---- -------1. Prophylaxis, de ep venous thrombos is, including high risk surgery. 2.0 - 3.0 2. Prophylaxis, deep venous thrombosis, hip surgery, treatm ent for deep venous thrombosis or pulmonary prevention of systemic emboli sm in patients wit h valvular heart disease, atrial fibrillation, tissue heart va lve, or acute myocar dial infarction. 2.0 - 3.0 3. Calender Roll Operator al prosthesis hear t valves, recurre nt systemic emboli sm. 3.0 - 4.5 PTT [id number] 07:04:00 Test Item Value Reference Range Interpretation Comments PTT ACTIVATED (test code = APTT) 30.5 SECONDS 25.1-36.5 N CBC W/AUTO [id number] 06:46:00 Test Item Value Reference Range Interpretation [...] 0.00 K/mm3 0.0-0.1 N NRBC#) GLUCOSE BEDSIDE [id number] 00:11:00 Test Item Value Reference Range Interpretation Comments GLUCOSE BEDSIDE TESTING (test code = 98 MG/DL 60-99 N GLUBED) PROTHROMBIN [id number] 23:41:00 Test Item Value Reference Range Interpretation Comments PROTHROMBIN TIME 22.6 SECONDS 9.4-12.5 H PATIENT (test code = PTP) INTERNATIONAL NORMAL 2.0 The INR is to be RATIO (test code = used only for INR) monitoring oral anticoagulantth erap y. INDICATION I NR VALUE ---- ---- ---- -------1. Prophylaxis, de ep venous thrombos is, including high risk surgery. 2.0 - 3.0 2. Prophylaxis, deep venous thrombosis, hip surgery, treatm ent for deep venous thrombosis or pulmonary prevention of systemic emboli sm in patients wit h valvular heart disease, atrial fibrillation, tissue heart va lve, or acute myocar dial infarction. 2.0 - 3.0 3. Calender Roll Operator al prosthesis hear t valves, recurre nt systemic emboli sm. 3.0 - 4.5 PTT [id number] 23:41:00 Test Item Value Reference Range Interpretation Comments PTT ACTIVATED (test code = APTT) 25.2 SECONDS 25.1-36.5 N BASIC METABOLIC [id number] 23:39:00 Test Item Value Reference Range Interpretation [...] 7.4 MG/DL 8.4-10.2 L CA) BASIC METABOLIC [id number] 23:36:00 Test Item Value Reference Range Interpretation [...] code = CA) MG/DL 8.7-9.7 CBC W/AUTO [id number] 23:29:00 Test Item Value Reference Range Interpretation [...] 0.00 K/mm3 0.0-0.1 N NRBC#) GLUCOSE BEDSIDE [id number] 20:24:00 Test Item Value Reference Range Interpretation Comments GLUCOSE BEDSIDE TESTING (test code 106 MG/DL 60-99 H = GLUBED) - XR CHEST [id number] 19:08:00 [facility] : 1940 Sex: F Patient Name: JORGE A SHERMAN Unit No: [id number] EXAMS: CPT CODE: [id number] XR CHEST 1V 28859 REASON FOR EXAM:Coronary artery disease. COMPARISON: December 08, 2019. Chest, portable single frontal view. The upper lungs are fairly well-inflated and clear. Lung bases with some haziness present that could indicateatelectasis or developing infiltrates. Most pronounced behind the left heart. An effusion component could be present. Heart size is upper normal with heart valve replacement changes and or CABG. Pulmonary vessels appear to be intact. No right effusion or pneumothorax can be seen. Osseous structures appear to be intact. Bilateral rotator cuff degenerative changes. IMPRESSION: Basilar densities, mostly on the left, possibly early pneumonia/atelectasis with effusion component. Location: U19 at 1908 Reported and signed by: DONNA AMIN M.D. CC: Ramu Sutherland MD; Rashid Son MD; Reuben Conner Technologist: Diana Quintana (RT) Transcrpt Date/Tm/Trnsp: 12/21/2019 (1907) AuraRCM1 Orig Print D/T: S: 12/21/2019 (1911) [facility] NAME: JORGE A SHERMAN [id number] PHYS: [place] [address] : 1940 AGE: 79 SEX: F LOC: Z.SI06 A PHONE #: [phone] EXAM DATE: 12/21/2019 STATUS: ADM IN FAX #: [phone] RADIOLOGY NO: PAGE 1 Signed ReportGLUCOSE BEDSIDE [id number] 12:32:00 Test Item Value Reference Range Interpretation Comments GLUCOSE BEDSIDE TESTING (test code 130 MG/DL 60-99 H = GLUBED) GLUCOSE BEDSIDE [id number] 09:19:00 Test Item Value Reference Range Interpretation Comments GLUCOSE BEDSIDE TESTING (test code 143 MG/DL 60-99 H = GLUBED) COMPREHENSIVE METABOLIC [id number] 07:06:00 Test Item Value Reference Range Interpretation [...] Product TBil, BuBc: ======= ======= ======A ssay Eltrombopa g Analyte/ Max Ob served Avg. Bias Concentration Concentration Concentration== ======= ======= ======= =======TBil 7mg /dl TBil/ 1.2mg/dl +0.23mg.dl +0.20mg/dlBuBc 3.5mg/dl Bu/0.8 mg/dl +0.25mg/dl +0.24mg/dlBuBc 7 mg/dl Bu/14.2mg/dl +0.38mg/dl +0.25mg/dlBuBc 5mg/dl Bc/0mg/dl +0.25 mg/dl +0.15mg/dlBuBc 3.5mg/dl Bc/2.8 mg/dl +0.25mg/dl +0.2 3mg/dl SGOT/AST (test code 78 UNITS/L 14-36 H = AST) SGPT/ALT (test code 34 UNITS/L <35 = ALT) ALKALINE PHOSPHATASE 137 UNITS/L 38-126 H (test code = ALKP) COMPREHENSIVE METABOLIC [id number] 06:24:00 Test Item Value Reference Range Interpretation [...] Product TBil, BuBc: ======= ======= ======A ssay Eltrombopa g Analyte/ Max Ob served Avg. Bias Concentration Concentration Concentration== ======= ======= ======= =======TBil 7mg /dl TBil/ 1.2mg/dl +0.23mg.dl +0.20mg/dlBuBc 3.5mg/dl Bu/0.8 mg/dl +0.25mg/dl +0.24mg/dlBuBc 7 mg/dl Bu/14.2mg/dl +0.38mg/dl +0.25mg/dlBuBc 5mg/dl Bc/0mg/dl +0.25 mg/dl +0.15mg/dlBuBc 3.5mg/dl Bc/2.8 mg/dl +0.25mg/dl +0.2 3mg/dl SGOT/AST (test code = UNITS/L 15-37 AST) SGPT/ALT (test code = UNITS/L <35 ALT) ALKALINE PHOSPHATASE UNITS/L 38-126 (test code = ALKP) COMPREHENSIVE METABOLIC [id number] 06:22:00 Test Item Value Reference Range Interpretation [...] (test code = UNITS/L 38-126 ALKP) PROTHROMBIN [id number] 06:21:00 Test Item Value Reference Range Interpretation Comments PROTHROMBIN TIME 18.4 SECONDS 9.4-12.5 H PATIENT (test code = PTP) INTERNATIONAL NORMAL 1.7 The INR is to be RATIO (test code = used only for INR) monitoring oral anticoagulantth erap y. INDICATION I NR VALUE ---- ---- ---- -------1. Prophylaxis, de ep venous thrombos is, including high risk surgery. 2.0 - 3.0 2. Prophylaxis, deep venous thrombosis, hip surgery, treatm ent for deep venous thrombosis or pulmonary prevention of systemic emboli sm in patients wit h valvular heart disease, atrial fibrillation, tissue heart va lve, or acute myocar dial infarction. 2.0 - 3.0 3. Calender Roll Operator al prosthesis hear t valves, recurre nt systemic emboli sm. 3.0 - 4.5 COMPREHENSIVE METABOLIC [id number] 06:21:00 Test Item Value Reference Range Interpretation [...] code = UNITS/L 38-126 ALKP) CBC W/AUTO [id number] 06:11:00 Test Item Value Reference Range Interpretation [...] 0.00 K/mm3 0.0-0.1 N NRBC#) GLUCOSE BEDSIDE [id number] 21:01:00 Test Item Value Reference Range Interpretation Comments GLUCOSE BEDSIDE TESTING (test code 127 MG/DL 60-99 H = GLUBED) GLUCOSE BEDSIDE [id number] 16:02:00 Test Item Value Reference Range Interpretation Comments GLUCOSE BEDSIDE TESTING (test code 118 MG/DL 60-99 H = GLUBED) - NM ACUTE GI BLOOD [id number] 15:54:00 [facility] : 1940 Sex: F Patient Name: JORGE A SHERMAN Unit No: [id number] EXAMS: CPT CODE: [id number] NM ACUTE GI BLOOD LOSS 10532 B2 EXAM: - NM ACUTE GI BLOOD LOSS HISTORY: GI bleeding TECHNIQUE: Patient's RBCs were labeled using 27.4 mCi of Tc 99m pertechnetate. Subsequent immediate flow images followed by serial static images of the abdomen and pelvis were obtained for record 20 minutes. COMPARISON: None FINDINGS: There is normal localization of the tracer in the vascular tree and visualization of the bladder. During the entire study, no abnormal tracer activity is seen in the abdomen or pelvis to suggest active GI bleeding. IMPRESSION: No scintigraphic evidence of gastrointestinal bleeding over the 2 hour imaging interval. at 1554 Reported and signed by: Haresh Gross MD CC: Ramu Sutherland MD; Rashid Son MD; Dr. Jason Wilder Technologist: Lidia Lovell, RT(N) Transcrpt Date/Tm/Trnsp: 12/20/2019 (5142) Dorys.VB7 Orig Print D/T: S: 12/20/2019 (3162) [facility] NAME: JORGE A SHERMAN [id number] PHYS: Jason Rojas MD [place], [place] [address]XQB: 1940 AGE: 79 SEX: F LOC: Z.SI06 A PHONE #: [phone] EXAM DATE: 12/20/2019 STATUS: ADM IN FAX #: [phone] RADIOLOGY NO: PAGE 1 Signed ReportGLUCOSE BEDSIDE [id number] 11:29:00 Test Item Value Reference Range Interpretation Comments GLUCOSE BEDSIDE TESTING (test code 148 MG/DL 60-99 H = GLUBED) GLUCOSE BEDSIDE [id number] 09:20:00 Test Item Value Reference Range Interpretation Comments GLUCOSE BEDSIDE TESTING (test code 152 MG/DL 60-99 H = GLUBED) BASIC METABOLIC [id number] 06:04:00 Test Item Value Reference Range Interpretation [...] 7.2 MG/DL 8.4-10.2 L CA) BASIC METABOLIC [id number] 06:03:00 Test Item Value Reference Range Interpretation [...] code = MG/DL 8.7-9.7 CA) BASIC METABOLIC [id number] 06:01:00 Test Item Value Reference Range Interpretation [...] code = CA) MG/DL 8.7-9.7 BASIC METABOLIC [id number] 06:00:00 Test Item Value Reference Range Interpretation [...] (test code = CA) MG/DL 8.7-9.7 PROTHROMBIN [id number] 06:00:00 Test Item Value Reference Range Interpretation Comments PROTHROMBIN TIME 22.3 SECONDS 9.4-12.5 H PATIENT (test code = PTP) INTERNATIONAL NORMAL 2.0 The INR is to be RATIO (test code = used only for INR) monitoring oral anticoagulantth erap y. INDICATION I NR VALUE ---- ---- ---- -------1. Prophylaxis, de ep venous thrombos is, including high risk surgery. 2.0 - 3.0 2. Prophylaxis, deep venous thrombosis, hip surgery, treatm ent for deep venous thrombosis or pulmonary prevention of systemic emboli sm in patients wit h valvular heart disease, atrial fibrillation, tissue heart va lve, or acute myocar dial infarction. 2.0 - 3.0 3. Calender Roll Operator al prosthesis hear t valves, recurre nt systemic emboli sm. 3.0 - 4.5 CBC W/AUTO [id number] 05:53:00 Test Item Value Reference Range Interpretation [...] 0.00 K/mm3 0.0-0.1 N NRBC#) GLUCOSE BEDSIDE [id number] 20:57:00 Test Item Value Reference Range Interpretation Comments GLUCOSE BEDSIDE TESTING (test code 138 MG/DL 60-99 H = GLUBED) PROTHROMBIN [id number] 19:46:00 Test Item Value Reference Range Interpretation Comments PROTHROMBIN TIME 23.7 SECONDS 9.4-12.5 H PATIENT (test code = PTP) INTERNATIONAL NORMAL 2.1 The INR is to be RATIO (test code = used only for INR) monitoring oral anticoagulantth erap y. INDICATION INR VALUE ---- ---- ---- -------1. Prophylaxis, de ep venous thrombos is, including high risk surgery. 2.0 - 3.0 2. Prophylaxis, deep venous thrombosis, hip surgery, treatm ent for deep venous thrombosis or pulmonary prevention of systemic emboli sm in patients wit h valvular heart disease, atrial fibrillation, tissue heart va lve, or acute myocar dial infarction. 2.0 - 3.0 3. Calender Roll Operator al prosthesis hear t valves, recurre nt systemic emboli sm. 3.0 - 4.5 UNABLE TO DRAW BLOOD, REASON: AUREA NOTIFIED PATIENT CARE STAFF: MACK 12/19/19 AT 183 BY Kristen HenryTT [id number] 19:46:00 Test Item Value Reference Range Interpretation Comments PTT ACTIVATED (test code = APTT) 31.3 SECONDS 25.1-36.5 N UNABLE TO DRAW BLOOD, REASON: AUREA NOTIFIED PATIENT CARE STAFF: MACK 12/19/19 AT 1838 BY Kristen Henry AnHGB [id number] 19:36:00 Test Item Value Reference Range Interpretation Comments HEMOGLOBIN (test code = HGB) 7.4 G/DL 11.2-14.9 L HEMATOCRIT (test code = HCT) 23.6 % 33.2-43.5 L Is this a LINE draw? NUNABLE TO DRAW BLOOD, REASON: HARDSTICKNOTIFIED PATIENT CARE STAFF: MACK 12/19/19 AT 1838 BY Kristen Henry AnGLUCOSE BEDSIDE [id number] 17:14:00 Test Item Value Reference Range Interpretation Comments GLUCOSE BEDSIDE TESTING (test code 127 MG/DL 60-99 H = GLUBED) GLUCOSE BEDSIDE [id number] 11:41:00 Test Item Value Reference Range Interpretation Comments GLUCOSE BEDSIDE TESTING (test code 125 MG/DL 60-99 H = GLUBED) BASIC METABOLIC [id number] 09:20:00 Test Item Value Reference Range Interpretation [...] 7.5 MG/DL 8.4-10.2 L CA) CBNBASIC METABOLIC [id number] 09:15:00 Test Item Value Reference Range Interpretation [...] code = MG/DL 8.7-9.7 CA) CBNBASIC METABOLIC [id number] 09:13:00 Test Item Value Reference Range Interpretation [...] code = CA) MG/DL 8.7-9.7 CBNBASIC METABOLIC [id number] 09:12:00 Test Item Value Reference Range Interpretation [...] (test code = CA) MG/DL 8.7-9.7 CBNPROTHROMBIN [id number] 09:09:00 Test Item Value Reference Range Interpretation Comments PROTHROMBIN TIME 25.1 SECONDS 9.4-12.5 H PATIENT (test code = PTP) INTERNATIONAL NORMAL 2.3 The INR is to be RATIO (test code = used only for INR) monitoring oral anticoagulantth erap y. INDICATION I NR VALUE ---- ---- ---- -------1. Prophylaxis, de ep venous thrombos is, including high risk surgery. 2.0 - 3.0 2. Prophylaxis, deep venous thrombosis, hip surgery, treatm ent for deep venous thrombosis or pulmonary prevention of systemic emboli sm in patients wit h valvular heart disease, atrial fibrillation, tissue heart va lve, or acute myocar dial infarction. 2.0 - 3.0 3. Calender Roll Operator al prosthesis hear t valves, recurre nt systemic emboli sm. 3.0 - 4.5 CBNComments to Dukey Rider: WITH AM LABSCBC W/AUTO [id number] 08:57:00 Test Item Value Reference Range Interpretation [...] 0.00 K/mm3 0.0-0.1 N NRBC#) CBNGLUCOSE BEDSIDE [id number] 07:42:00 Test Item Value Reference Range Interpretation Comments GLUCOSE BEDSIDE TESTING (test code 122 MG/DL 60-99 H = GLUBED) GLUCOSE BEDSIDE [id number] 21:25:00 Test Item Value Reference Range Interpretation Comments GLUCOSE BEDSIDE TESTING (test code 115 MG/DL 60-99 H = GLUBED) GLUCOSE BEDSIDE [id number] 17:33:00 Test Item Value Reference Range Interpretation Comments GLUCOSE BEDSIDE TESTING (test code 104 MG/DL 60-99 H = GLUBED) C REACTIVE [id number] 15:42:00 Test Item Value Reference Range Interpretation Comments C REACTIVE PROTEIN (test code = 25.20 MG/DL 0.00-9.99 H CRP) - XR SMALL BOWEL/[id number] 12:46:00 [facility] : 1940 Sex: F Patient Name: JORGE A SHERMAN Unit No: [id number] EXAMS: CPT CODE: [id number] XR SMALL BOWEL/ENTERO 66029 B2 EXAM: Small bowel series INDICATION: Prolonged [...] ANKUR Jalloh, RT(R) Transcrpt Date/Tm/Trnsp: 12/18/2019 (1246) t.CARLAR.VB7 Orig Print D/T: S: 12/18/2019 (1250) [facility] NAME: JORGE A SHERMAN [address] [place] [address] PHYS: [place] [address] : 1940 AGE: 79 SEX: F LOC: Z.SI06 A PHONE #: [phone] EXAM DATE: 12/18/2019 STATUS: ADM IN FAX #: RADIOLOGY NO: PAGE 1 Signed ReportGLUCOSE BEDSIDE [id number] 12:07:00 Test Item Value Reference Range Interpretation Comments GLUCOSE BEDSIDE TESTING (test code 101 MG/DL 60-99 H = GLUBED) SED [id number] 09:36:00 Test Item Value Reference Range Interpretation Comments SED RATE (test code = SEDW) 53 MM/HR 0-20 H GLUCOSE BEDSIDE [id number] 09:03:00 Test Item Value Reference Range Interpretation Comments GLUCOSE BEDSIDE TESTING (test code 113 MG/DL 60-99 H = GLUBED) BASIC METABOLIC [id number] 06:06:00 Test Item Value Reference Range Interpretation [...] 7.3 MG/DL 8.4-10.2 L CA) BASIC METABOLIC [id number] 06:00:00 Test Item Value Reference Range Interpretation [...] code = MG/DL 8.7-9.7 CA) BASIC METABOLIC [id number] 05:57:00 Test Item Value Reference Range Interpretation [...] (test code = CA) MG/DL 8.7-9.7 PROTHROMBIN [id number] 05:38:00 Test Item Value Reference Range Interpretation Comments PROTHROMBIN TIME 26.4 SECONDS 9.4-12.5 H PATIENT (test code = PTP) INTERNATIONAL NORMAL 2.4 The INR is to be RATIO (test code = used only for INR) monitoring oral anticoagulantth erap y. INDICATION I NR VALUE ---- ---- ---- -------1. Prophylaxis, de ep venous thrombos is, including high risk surgery. 2.0 - 3.0 2. Prophylaxis, deep venous thrombosis, hip surgery, treatm ent for deep venous thrombosis or pulmonary prevention of systemic emboli sm in patients wit h valvular heart disease, atrial fibrillation, tissue heart va lve, or acute myocar dial infarction. 2.0 - 3.0 3. Calender Roll Operator al prosthesis hear t valves, recurre nt systemic emboli sm. 3.0 - 4.5 Comments to Dukey Rider: WITH AM LABSCBC W/AUTO [id number] 05:29:00 Test Item Value Reference Range Interpretation [...] 0.00 K/mm3 0.0-0.1 N NRBC#) GLUCOSE BEDSIDE [id number] 20:19:00 Test Item Value Reference Range Interpretation Comments GLUCOSE BEDSIDE TESTING (test code 212 MG/DL 60-99 H = GLUBED) GLUCOSE BEDSIDE [id number] 17:34:00 Test Item Value Reference Range Interpretation Comments GLUCOSE BEDSIDE TESTING (test code 217 MG/DL 60-99 H = GLUBED) GLUCOSE BEDSIDE [id number] 13:00:00 Test Item Value Reference Range Interpretation Comments GLUCOSE BEDSIDE TESTING (test code 207 MG/DL 60-99 H = GLUBED) BASIC METABOLIC [id number] 05:59:00 Test Item Value Reference Range Interpretation [...] 7.1 MG/DL 8.4-10.2 L CA) BASIC METABOLIC [id number] 05:51:00 Test Item Value Reference Range Interpretation [...] code = MG/DL 8.7-9.7 CA) BASIC METABOLIC [id number] 05:49:00 Test Item Value Reference Range Interpretation [...] (test code = CA) MG/DL 8.7-9.7 PROTHROMBIN [id number] 05:34:00 Test Item Value Reference Range Interpretation Comments PROTHROMBIN TIME 30.7 SECONDS 9.4-12.5 H PATIENT (test code = PTP) INTERNATIONAL NORMAL 2.8 The INR is to be RATIO (test code = used only for INR) monitoring oral anticoagulantth erap y. INDICATION INR VALUE ---- ---- ---- -------1. Prophylaxis, de ep venous thrombos is, including high risk surgery. 2.0 - 3.0 2. Prophylaxis, deep venous thrombosis, hip surgery, treatm ent for deep venous thrombosis or pulmonary prevention of systemic emboli sm in patients wit h valvular heart disease, atrial fibrillation, tissue heart va lve, or acute myocar dial infarction. 2.0 - 3.0 3. Calender Roll Operator al prosthesis hear t valves, recurre nt systemic emboli sm. 3.0 - 4.5 CBC W/AUTO [id number] 05:16:00 Test Item Value Reference Range Interpretation [...] = 0.00 K/mm3 0.0-0.1 N NRBC#) PROTHROMBIN [id number] 06:34:00 Test Item Value Reference Range Interpretation Comments PROTHROMBIN TIME 31.1 SECONDS 9.4-12.5 H PATIENT (test code = PTP) INTERNATIONAL NORMAL 2.8 The INR is to be RATIO (test code = used only for INR) monitoring oral anticoagulantth erap y. INDICATION I NR VALUE ---- ---- ---- -------1. Prophylaxis, de ep venous thrombos is, including high risk surgery. 2.0 - 3.0 2. Prophylaxis, deep venous thrombosis, hip surgery, treatm ent for deep venous thrombosis or pulmonary prevention of systemic emboli sm in patients wit h valvular heart disease, atrial fibrillation, tissue heart va lve, or acute myocar dial infarction. 2.0 - 3.0 3. Calender Roll Operator al prosthesis hear t valves, recurre nt systemic emboli sm. 3.0 - 4.5 BASIC METABOLIC [id number] 06:25:00 Test Item Value Reference Range Interpretation [...] 7.3 MG/DL 8.4-10.2 L CA) BASIC METABOLIC [id number] 06:22:00 Test Item Value Reference Range Interpretation [...] (test code = CA) MG/DL 8.7-9.7 LACTIC [id number] 06:19:00 Test Item Value Reference Range Interpretation Comments LACTIC ACID (test code = LACT) 0.8 MMOL/L 0.7-2.1 N CBC W/AUTO [id number] 06:02:00 Test Item Value Reference Range Interpretation [...] 0.00 K/mm3 0.0-0.1 N NRBC#) GLUCOSE BEDSIDE [id number] 10:01:00 Test Item Value Reference Range Interpretation Comments GLUCOSE BEDSIDE TESTING (test code = 96 MG/DL 60-99 N GLUBED) GLUCOSE BEDSIDE [id number] 09:16:00 Test Item Value Reference Range Interpretation Comments GLUCOSE BEDSIDE TESTING (test code = 58 MG/DL 60-99 L GLUBED) BASIC METABOLIC [id number] 06:07:00 Test Item Value Reference Range Interpretation [...] & PAMELLA) READBACK ON 07/28 AT 0606 BYYifan Sewello pher BLOOD UREA NITROGEN 36 MG/DL 7-17 H (test code = BUN) GLOMERULAR FILTRATION 60 Report ing units: RATE (test code = GFR) ml/mi n/1.73 m2 (Modified MDRD Formula)Referen ce Range: > or = 6 0 ml/min/1.73 m2 CREATININE (test code 0.90 MG/DL 0.52-1.04 N = CREAT) CALCIUM (test code = 7.4 MG/DL 8.4-10.2 L CA) PROTHROMBIN [id number] 06:06:00 Test Item Value Reference Range Interpretation Comments PROTHROMBIN TIME 20.4 SECONDS 9.4-12.5 H PATIENT (test code = PTP) INTERNATIONAL NORMAL 1.8 The INR is to be RATIO (test code = used only for INR) monitoring oral anticoagulantth erap y. INDICATION INR VALUE ---- ---- ---- -------1. Prophylaxis, de ep venous thrombos is, including high risk surgery. 2.0 - 3.0 2. Prophylaxis, deep venous thrombosis, hip surgery, treatm ent for deep venous thrombosis or pulmonary prevention of systemic emboli sm in patients wit h valvular heart disease, atrial fibrillation, tissue heart va lve, or acute myocar dial infarction. 2.0 - 3.0 3. Calender Roll Operator al prosthesis hear t valves, recurre nt systemic emboli sm. 3.0 - 4.5 BASIC METABOLIC [id number] 06:01:00 Test Item Value Reference Range Interpretation [...] code = MG/DL 8.7-9.7 CA) BASIC METABOLIC [id number] 05:59:00 Test Item Value Reference Range Interpretation [...] code = CA) MG/DL 8.7-9.7 BASIC METABOLIC [id number] 05:58:00 Test Item Value Reference Range Interpretation [...] code = CA) MG/DL 8.7-9.7 CBC W/AUTO [id number] 05:51:00 Test Item Value Reference Range Interpretation [...] 0.00 K/mm3 0.0-0.1 N NRBC#) COMPREHENSIVE METABOLIC [id number] 06:04:00 Test Item Value Reference Range Interpretation [...] Product TBil, BuBc: ======= ======= ======A ssay Eltrombopa g Analyte/ Max Ob served Avg. Bias Concentration Concentration Concentration== ======= ======= ======= =======TBil 7mg /dl TBil/ 1.2mg/dl +0.23mg.dl +0.20mg/dlBuBc 3.5mg/dl Bu/0.8 mg/dl +0.25mg/dl +0.24mg/dlBuBc 7 mg/dl Bu/14.2mg/dl +0.38mg/dl +0.25mg/dlBuBc 5mg/dl Bc/0mg/dl +0.25 mg/dl +0.15mg/dlBuBc 3.5mg/dl Bc/2.8 mg/dl +0.25mg/dl +0.2 3mg/dl SGOT/AST (test code 48 UNITS/L 14-36 H = AST) SGPT/ALT (test code 16 UNITS/L <35 = ALT) ALKALINE PHOSPHATASE 116 UNITS/L 38-126 N (test code = ALKP) COMPREHENSIVE METABOLIC [id number] 05:59:00 Test Item Value Reference Range Interpretation [...] code = UNITS/L 38-126 ALKP) CBC W/AUTO [id number] 05:43:00 Test Item Value Reference Range Interpretation [...] code = 0.02 K/mm3 0.0-0.1 N NRBC#) [id number] 23:35:00 Test Item Value Reference Range Interpretation Comments HEMOGLOBIN (test code = HGB) 9.7 G/DL 11.2-14.9 L COMPREHENSIVE METABOLIC [id number] 20:53:00 Test Item Value Reference Range Interpretation [...] Product TBil, BuBc: ======= ======= ======A ssay Eltrombopa g Analyte/ Max Ob served Avg. Bias Concentration Concentration Concentration== ======= ======= ======= =======TBil 7mg /dl TBil/ 1.2mg/dl +0.23mg.dl +0.20mg/dlBuBc 3.5mg/dl Bu/0.8 mg/dl +0.25mg/dl +0.24mg/dlBuBc 7 mg/dl Bu/14.2mg/dl +0.38mg/dl +0.25mg/dlBuBc 5mg/dl Bc/0mg/dl +0.25 mg/dl +0.15mg/dlBuBc 3.5mg/dl Bc/2.8 mg/dl +0.25mg/dl +0.2 3mg/dl SGOT/AST (test code 49 UNITS/L 14-36 H = AST) SGPT/ALT (test code 18 UNITS/L <35 = ALT) ALKALINE PHOSPHATASE 115 UNITS/L 38-126 N (test code = ALKP) UNABLE TO DRAW BLOOD, REASON: CBNNOTIFIED PATIENT CARE STAFF: NICK 12/13/19 AT 1741 BY Kristen Henry NO GREEN TOP WERE SENT AT 18:10COMPREHENSIVE METABOLIC [id number] 20:50:00 Test Item Value Reference Range Interpretation [...] Product TBil, BuBc: ======= ======= ======A ssay Eltrombopa g Analyte/ Max Ob served Avg. Bias Concentration Concentration Concentration== ======= ======= ======= =======TBil 7mg /dl TBil/ 1.2mg/dl +0.23mg.dl +0.20mg/dlBuBc 3.5mg/dl Bu/0.8 mg/dl +0.25mg/dl +0.24mg/dlBuBc 7 mg/dl Bu/14.2mg/dl +0.38mg/dl +0.25mg/dlBuBc 5mg/dl Bc/0mg/dl +0.25 mg/dl +0.15mg/dlBuBc 3.5mg/dl Bc/2.8 mg/dl +0.25mg/dl +0.2 3mg/dl SGOT/AST (test code 49 UNITS/L 14-36 H = AST) SGPT/ALT (test code UNITS/L <35 = ALT) ALKALINE PHOSPHATASE 115 UNITS/L 38-126 N (test code = ALKP) UNABLE TO DRAW BLOOD, REASON: CBNNOTIFIED PATIENT CARE STAFF: NICK 12/13/19 AT 1741 BY Kristen Henry GREEN TOP WERE SENT AT 18:10COMPREHENSIVE METABOLIC [id number] 20:48:00 Test Item Value Reference Range Interpretation [...] DRAW BLOOD, REASON: CBNNOTIFIED PATIENT CARE STAFF: [facility] 12/13/19 AT 1741 BY Kristen Henry GREEN TOP WERE SENT AT 18:10COMPREHENSIVE METABOLIC [id number] 20:47:00 Test Item Value Reference Range Interpretation [...] DRAW BLOOD, REASON: CBNNOTIFIED PATIENT CARE STAFF: [facility] 12/13/19 AT 1741 BY Kristen Henry NO [...] BY Kristen Henry An- XR ABDOMEN 1 [id number] 18:16:00 [facility] : 1940 Sex: F Patient Name: JORGE A SHERMAN Unit No: [id number] EXAMS: CPT CODE: [id number] XR ABDOMEN 1 V 00005 Dictation location: H37. ABDOMEN, 1 VIEW HISTORY:GI Bleed FINDINGS: Since 12/12/19 there is continued distended organized loops of small bowel. Air is seen in the colon. IMPRESSION: Ileus versus partial small bowel obstruction. at 1816 Reported and signed by: Ann-Marie Lombardo MD CC: Tevin Samuels; Ramu Sutherland MD; Raji Jordan MD Technologist: Carolynn Rosario RT(R) Transcrpt Date/Tm/Trnsp: 12/13/2019 (1815) [id number] Orig Print D/T: S: 12/13/2019 (1819) [facility] NAME: JORGE A SHERMAN [id number] PHYS: [id number] - [place] [address] : 1940 AGE: 79 SEX: F LOC: Z.SI06 APHONE #: [phone] EXAM DATE: 12/13/2019 STATUS: ADM IN FAX #: [phone] RADIOLOGY NO: PAGE 1Signed ReportLACTIC ACID 2019-12-13 10:38:00 Test Item Value Reference Range Interpretation Comments LACTIC ACID (test code = LACT) 1.4 MMOL/L 0.7-2.1 N PROTHROMBIN [id number] 06:13:00 Test Item Value Reference Range Interpretation Comments PROTHROMBIN TIME 17.0 SECONDS 9.4-12.5 H PATIENT (test code = PTP) INTERNATIONAL NORMAL 1.5 The INR is to be RATIO (test code = used only for INR) monitoring oral anticoagulantth erap y. INDICATION INR VALUE ---- ---- ---- -------1. Prophylaxis, de ep venous thrombos is, including high risk surgery. 2.0 - 3.0 2. Prophylaxis, deep venous thrombosis, hip surgery, treatm ent for deep venous thrombosis or pulmonary prevention of systemic emboli sm in patients wit h valvular heart disease, atrial fibrillation, tissue heart va lve, or acute myocar dial infarction. 2.0 - 3.0 3. Calender Roll Operator al prosthesis hear t valves, recurre nt systemic emboli sm. 3.0 - 4.5 Comments to Dukey Rider: WITH AM LABSCBC W/AUTO [id number] 06:07:00 Test Item Value Reference Range Interpretation [...] = 0.00 K/mm3 0.0-0.1 N NRBC#) DIFFERENTIAL [id number] 06:07:00 Test Item Value Reference Range Interpretation Comments RBC MORPHOLOGY REQUIRED (test code = RBCM) PLATELET ESTIMATE (test code = PLTEST) ADEQUATE PLATELET MORPHOLOGY (test code = NORMAL PLTMORPH) CBC W/AUTO [id number] 06:07:00 Test Item Value Reference Range Interpretation [...] = 0.00 K/mm3 0.0-0.1 N NRBC#) DIFFERENTIAL [id number] 06:07:00 Test Item Value Reference Range Interpretation Comments RBC MORPHOLOGY REQUIRED (test code = RBCM) PLATELET ESTIMATE (test code = PLTEST) ADEQUATE PLATELET MORPHOLOGY (test code = NORMAL PLTMORPH) - XR ABDOMEN 1 [id number] 11:55:00 [facility] : 1940 Sex: F Patient Name: JORGE A SHERMAN Unit No: [id number] EXAMS: CPT CODE: [id number] XR ABDOMEN 1 V 29460 EXAMINATION: - XR ABDOMEN 1 V. LOCATION: B2. HISTORY: abdominal pain, vomiting. COMPARISON: CT abdomen and pelvis dated 12/04/2019. TECHNIQUE: Single AP view of the abdomen was obtained. FINDINGS: Multiple mildlydilated loops of small bowel are present. No [...] Technologist: ANKUR Jalloh, RT(R) Transcrpt Date/Tm/Trnsp: 12/12/2019 (4877) [email or web address] Orig Print D/T: S: 12/12/2019 (0940) [facility] NAME: JORGE A SHERMAN [id number] [address] PHYS: [id number] Gail Salazar MD [address] [address] : 1940 AGE: 79 SEX: F LOC: Z.SI06 A PHONE #: [phone] EXAM DATE: 12/12/2019 STATUS: ADM IN FAX #: [phone] RADIOLOGY NO: PAGE 1 Signed Report PROTHROMBIN [id number] 09:42:00 Test Item Value Reference Range Interpretation Comments PROTHROMBIN TIME 16.7 SECONDS 9.4-12.5 H PATIENT (test code = PTP) INTERNATIONAL NORMAL 1.5 The INR is to be RATIO (test code = used only for INR) monitoring oral anticoagulantth erap y. INDICATION I NR VALUE ---- ---- ---- -------1. Prophylaxis, de ep venous thrombos is, including high risk surgery. 2.0 - 3.0 2. Prophylaxis, deep venous thrombosis, hip surgery, treatm ent for deep venous thrombosis or pulmonary prevention of systemic emboli sm in patients wit h valvular heart disease, atrial fibrillation, tissue heart va lve, or acute myocar dial infarction. 2.0 - 3.0 3. Calender Roll Operator al prosthesis hear t valves, recurre nt systemic emboli sm. 3.0 - 4.5 Comments to Dukey Rider: WITH AM LABS do at 0700CBC W/AUTO [id number] 09:36:00 Test Item Value Reference Range Interpretation [...] 0.00 K/mm3 0.0-0.1 N NRBC#) [facility] MET[facility]OLIC [id number] 05:56:00 Test Item Value Reference Range Interpretation [...] 8.0 MG/DL 8.4-10.2 L CA) BASIC METABOLIC [id number] 05:55:00 Test Item Value Reference Range Interpretation [...] code = MG/DL 8.7-9.7 CA) BASIC METABOLIC [id number] 05:53:00 Test Item Value Reference Range Interpretation [...] (test code = CA) MG/DL 8.7-9.7 PROTHROMBIN [id number] 05:23:00 Test Item Value Reference Range Interpretation Comments PROTHROMBIN TIME 16.3 SECONDS 9.4-12.5 H PATIENT (test code = PTP) INTERNATIONAL NORMAL 1.5 The INR is to be RATIO (test code = used only for INR) monitoring oral anticoagulantth erap y. INDICATION I NR VALUE ---- ---- ---- -------1. Prophylaxis, de ep venous thrombos is, including high risk surgery. 2.0 - 3.0 2. Prophylaxis, deep venous thrombosis, hip surgery, treatm ent for deep venous thrombosis or pulmonary prevention of systemic emboli sm in patients wit h valvular heart disease, atrial fibrillation, tissue heart va lve, or acute myocar dial infarction. 2. 0 - 3.0 3. Calender Roll Operator al prosthesis hear t valves, recurre nt systemic emboli sm. 3.0 - 4.5 Comments to Dukey Rider: .CBC W/AUTO [id number] 05:15:00 Test Item Value Reference Range Interpretation [...] 0.00 K/mm3 0.0-0.1 N NRBC#) BASIC METABOLIC [id number] 11:19:00 Test Item Value Reference Range Interpretation [...] 7.6 MG/DL 8.4-10.2 L CA) BASIC METABOLIC [id number] 11:18:00 Test Item Value Reference Range Interpretation [...] code = MG/DL 8.7-9.7 CA) BASIC METABOLIC [id number] 11:15:00 Test Item Value Reference Range Interpretation [...] code = CA) MG/DL 8.7-9.7 CBC W/AUTO [id number] 11:05:00 Test Item Value Reference Range Interpretation [...] = 0.00 K/mm3 0.0-0.1 N NRBC#) PROTHROMBIN [id number] 04:49:00 Test Item Value Reference Range Interpretation Comments PROTHROMBIN TIME 17.8 SECONDS 9.4-12.5 H PATIENT (test code = PTP) INTERNATIONAL NORMAL 1.6 The INR is to be RATIO (test code = used only for INR) monitoring oral anticoagulantth erap y. INDICATION I NR VALUE ---- ---- ---- -------1. Prophylaxis, de ep venous thrombos is, including high risk surgery. 2.0 - 3.0 2. Prophylaxis, deep venous thrombosis, hip surgery, treatm ent for deep venous thrombosis or pulmonary prevention of systemic emboli sm in patients wit h valvular heart disease, atrial fibrillation, tissue heart va lve, or acute myocar dial infarction. 2.0 - 3.0 3. Calender Roll Operator al prosthesis hear t valves, recurre nt systemic emboli sm. 3.0 - 4.5 Comments to Dukey Rider: .URINALYSIS [id number] 17:50:00 Test Item Value Reference Range Interpretation [...] code = UACULT) SOURCE OF URINE: VOIDEDUA [id number] 17:50:00 Test Item Value Reference Range Interpretation Comments UA RBC (test code = RBCU) 0-3 RBC/HPF 0-3 UA WBC (test code = XWBCU) 3-5 WBC/HPF 0-5 UA EPITHELIAL CELLS (test code FEW EPI/HPF FEW = EPIU) UA BACTERIA (test code = MODERATE NONE A XBACU) UA YEAST (test code = YEASTU) MODERATE #/HPF NONE A SOURCE OF URINE: VOIDEDURINALYSIS [id number] 17:35:00 Test Item Value Reference Range Interpretation [...] Chk = UACULT) SOURCE OF URINE: VOIDEDUA [id number] 17:35:00 Test Item Value Reference Range Interpretation Comments UA RBC (test code = RBCU) RBC/HPF 0-3 UA WBC (test code = XWBCU) WBC/HPF 0-5 UA EPITHELIAL CELLS (test code = EPI/HPF FEW EPIU) UA BACTERIA (test code = XBACU) NONE SOURCE OF URINE: VOIDEDURINALYSIS [id number] 17:35:00 Test Item Value Reference Range Interpretation [...] Chk = UACULT) SOURCE OF URINE: VOIDEDUA [id number] 17:35:00 Test Item Value Reference Range Interpretation Comments UA RBC (test code = RBCU) RBC/HPF 0-3 UA WBC (test code = XWBCU) WBC/HPF 0-5 UA EPITHELIAL CELLS (test code = EPI/HPF FEW EPIU) UA BACTERIA (test code = XBACU) NONE SOURCE OF URINE: VOIDEDCBC W/AUTO [id number] 05:51:00 Test Item Value Reference Range Interpretation [...] 0-0 H code = NRBC) BASIC METABOLIC [id number] 05:30:00 Test Item Value Reference Range Interpretation [...] code = 7.6 MG/DL 8.4-10.2 L CA) [id number] 05:30:00 Test Item Value Reference Range Interpretation Comments MAGNESIUM (test code = MAG) 2.3 MG/DL 1.6-2.3 N BASIC METABOLIC [id number] 05:24:00 Test Item Value Reference Range Interpretation [...] CALCIUM (test code = MG/DL 8.7-9.7 CA) [id number] 05:24:00 Test Item Value Reference Range Interpretation Comments MAGNESIUM (test code = MAG) MG/DL 1.6-2.3 BASIC METABOLIC [id number] 05:22:00 Test Item Value Reference Range Interpretation [...] CALCIUM (test code = CA) MG/DL 8.7-9.7 [id number] 05:22:00 Test Item Value Reference Range Interpretation Comments MAGNESIUM (test code = MAG) MG/DL 1.6-2.3 BASIC METABOLIC [id number] 05:21:00 Test Item Value Reference Range Interpretation [...] CALCIUM (test code = CA) MG/DL 8.7-9.7 [id number] 05:21:00 Test Item Value Reference Range Interpretation Comments MAGNESIUM (test code = MAG) MG/DL 1.6-2.3 PROTHROMBIN [id number] 05:19:00 Test Item Value Reference Range Interpretation Comments PROTHROMBIN TIME 18.5 SECONDS 9.4-12.5 H PATIENT (test code = PTP) INTERNATIONAL NORMAL 1.7 The INR is to be RATIO (test code = used only for INR) monitoring oral anticoagulantth erap y. INDICATION I NR VALUE ---- ---- ---- -------1. Prophylaxis, de ep venous thrombos is, including high risk surgery. 2.0 - 3.0 2. Prophylaxis, deep venous thrombosis, hip surgery, treatm ent for deep venous thrombosis or pulmonary prevention of systemic emboli sm in patients wit h valvular heart disease, atrial fibrillation, tissue heart va lve, or acute myocar dial infarction. 2.0 - 3.0 3. Calender Roll Operator al prosthesis hear t valves, recurre nt systemic emboli sm. 3.0 - 4.5 Comments to Dukey Rider: .CBC W/AUTO [id number] 05:10:00 Test Item Value Reference Range Interpretation [...] K/mm3 0.0-0.1 N NRBC#) - XR CHEST [id number] 14:16:00 [facility] : 1940 Sex: F Patient Name: JORGE A SHERMAN Unit No: [id number] EXAMS: CPT CODE: [id number] XR CHEST 1V 12517 CHEST 1 VIEW CLINICAL INFORMATION: atelectasis COMPARISON: [...] Domi Cunningham, RT(R) Transcrpt Date/Tm/Trnsp: 12/08/2019 (1416) [id number] Orig Print D/T: S: 12/08/2019 (1420) [facility] NAME: JORGE A SHERMAN [id number] [address] PHYS: [place] [address] : 1940 AGE: 79 SEX: F LOC: Z.SI06 A PHONE #: [phone] EXAM DATE: 12/08/2019 STATUS: ADM IN FAX #: [phone] RADIOLOGY NO: PAGE 1 Signed ReportBASIC METABOLIC [id number] 10:18:00 Test Item Value Reference Range Interpretation [...] 7.6 MG/DL 8.4-10.2 L CA) BASIC METABOLIC [id number] 10:11:00 Test Item Value Reference Range Interpretation [...] (test code = MG/DL 8.7-9.7 CA) PROTHROMBIN [id number] 09:52:00 Test Item Value Reference Range Interpretation Comments PROTHROMBIN TIME 36.7 SECONDS 9.4-12.5 H PATIENT (test code = PTP) INTERNATIONAL NORMAL 3.3 The INR is to be RATIO (test code = used only for INR) monitoring oral anticoagulantth erap y. INDICATION I NR VALUE ---- ---- ---- -------1. Prophylaxis, de ep venous thrombos is, including high risk surgery. 2.0 - 3.0 2. Prophylaxis, deep venous thrombosis, hip surgery, treatm ent for deep venous thrombosis or pulmonary prevention of systemic emboli sm in patients wit h valvular heart disease, atrial fibrillation, tissue heart va lve, or acute myocar dial infarction. 2.0 - 3.0 3. Calender Roll Operator al prosthesis hear t valves, recurre nt systemic emboli sm. 3.0 - 4.5 CBC W/AUTO [id number] 09:42:00 Test Item Value Reference Range Interpretation [...] = 0.05 K/mm3 0.0-0.1 N NRBC#) LACTIC [id number] 11:31:00 Test Item Value Reference Range Interpretation Comments LACTIC ACID (test code = LACT) 1.8 MMOL/L 0.7-2.1 N BASIC METABOLIC [id number] 05:33:00 Test Item Value Reference Range Interpretation [...] 7.7 MG/DL 8.4-10.2 L CA) BASIC METABOLIC [id number] 05:12:00 Test Item Value Reference Range Interpretation [...] code = MG/DL 8.7-9.7 CA) BASIC METABOLIC [id number] 05:09:00 Test Item Value Reference Range Interpretation [...] (test code = CA) MG/DL 8.7-9.7 PROTHROMBIN [id number] 04:51:00 Test Item Value Reference Range Interpretation Comments PROTHROMBIN TIME 47.9 SECONDS 9.4-12.5 HH CALLED TO Jose Bai PATIENT (test code = & READB ACK ON PTP) 12/07/19 AT 044 9 BY James Bean INTERNATIONAL NORMAL 4.3 HH CALLED TO Mary DODGE (test code = Matuto & READBACK INR) ON 12/07/19 AT 0449 BY James Bean The INR is to be us ed only for monito ring oral anticoagulantth erap y. INDICATION I NR VALUE ---- ---- ---- -------1. Prophylaxis, de ep venous thrombos is, including high risk surgery. 2.0 - 3.0 2. Prophylaxis, deep venous thrombosis, hip surgery, treatm ent for deep venous thrombosis or pulmonary prevention of systemic emboli sm in patients wit h valvular heart disease, atrial fibrillation, tissue heart va lve, or acute myocar dial infarction. 2.0 - 3.0 3. Calender Roll Operator al prosthesis hear t valves, recurre nt systemic emboli sm. 3.0 - 4.5 Comments to Dukey Rider: .CBC W/AUTO [id number] 04:36:00 Test Item Value Reference Range Interpretation [...] = 0.02 K/mm3 0.0-0.1 N NRBC#) LACTIC [id number] 11:55:00 Test Item Value Reference Range Interpretation Comments LACTIC ACID (test code = LACT) 1.5 MMOL/L 0.7-2.1 N BASIC METABOLIC [id number] 10:02:00 Test Item Value Reference Range Interpretation [...] 7.6 MG/DL 8.4-10.2 L CA) BASIC METABOLIC [id number] 10:01:00 Test Item Value Reference Range Interpretation [...] code = MG/DL 8.7-9.7 CA) BASIC METABOLIC [id number] 10:00:00 Test Item Value Reference Range Interpretation [...] code = CA) MG/DL 8.7-9.7 BASIC METABOLIC [id number] 08:40:00 Test Item Value Reference Range Interpretation [...] BY DALJIT: HEMOLYSISNOTIFIED PATIENT CARE STAFF: VERONICALACTIC [id number] 08:38:00 Test Item Value Reference Range Interpretation Comments LACTIC ACID (test code = LACT) 2.3 MMOL/L 0.7-2.1 H UNABLE TO DRAW BLOOD, REASON: CBNNOTIFIED PATIENT CARE STAFF: EDWARD 12/05/19 AT 2155 BY Kristen Henry RN.BASIC METABOLIC [id number] 08:35:00 Test Item Value Reference Range Interpretation [...] 0732 BY DALJIT: HEMOLYSISNOTIFIED PATIENT CARE STAFF: CAPRI [id number] 08:21:00 Test Item Value Reference Range Interpretation Comments PROTHROMBIN TIME 34.0 SECONDS 9.4-12.5 H PATIENT (test code = PTP) INTERNATIONAL NORMAL 3.0 The INR is to be RATIO (test code = used only for INR) monitoring oral anticoagulantth erap y. INDICATION I NR VALUE ---- ---- ---- -------1. Prophylaxis, de ep venous thrombos is, including high risk surgery. 2.0 - 3.0 2. Prophylaxis, deep venous thrombosis, hip surgery, treatm ent for deep venous thrombosis or pulmonary prevention of systemic emboli sm in patients wit h valvular heart disease, atrial fibrillation, tissue heart va lve, or acute myocar dial infarction. 2.0 - 3.0 3. Calender Roll Operator al prosthesis hear t valves, recurre nt systemic emboli sm. 3.0 - 4.5 Comments to Dukey Rider: .CBC W/AUTO [id number] 06:49:00 Test Item Value Reference Range Interpretation [...] = 0.00 K/mm3 0.0-0.1 N NRBC#) LACTIC [id number] 19:25:00 Test Item Value Reference Range Interpretation Comments LACTIC ACID (test code = LACT) 2.2 MMOL/L 0.7-2.1 H LACTIC [id number] 14:59:00 Test Item Value Reference Range Interpretation Comments LACTIC ACID (test code = LACT) 2.5 MMOL/L 0.7-2.1 H LACTIC [id number] 12:27:00 Test Item Value Reference Range Interpretation Comments LACTIC ACID (test code = LACT) 2.8 MMOL/L 0.7-2.1 H PROTHROMBIN [id number] 09:37:00 Test Item Value Reference Range Interpretation Comments PROTHROMBIN TIME 41.0 SECONDS 9.4-12.5 CALLED TO Richardson MORENA M PATIENT (test code = & READB ACK [...] Prophylaxis, de ep venous thrombos is, including high risk surgery. 2.0 - 3.0 2. Prophylaxis, deep venous thrombosis, hip surgery, treatm ent for deep venous thrombosis or pulmonary prevention of systemic emboli sm in patients wit h valvular heart disease, atrial fibrillation, tissue heart va lve, or acute myocar dial infarction. 2.0 - 3.0 3. Calender Roll Operator al prosthesis hear t valves, recurre nt systemic emboli sm. 3.0 - 4.5 UNABLE TO DRAW BLOOD, REASON: PT BART CBN DRAWNOTIFIED PATIENT CARE STAFF: DRON 12/05/19 AT 0632 BY Zachery Kang IS A CBN DRAWComments to Dukey Rider: . BASIC METABOLIC [id number] 09:29:00 Test Item Value Reference Range Interpretation [...] IS A CBN DRANOTIFIED PATIENT CARE STAFF: RBON 12/05/19 AT 0633 BY Zachery Kang IS A CBN DRAWBASIC METABOLIC PANEL 2019-12-05 08:58:00 Test Item Value Reference Range Interpretation [...] IS A CBN DRANOTIFIED PATIENT CARE STAFF: RBON 12/05/19 AT 0633 BY Zachery Kang IS A CBN DRAWCBC W/AUTO [id number] 08:51:00 Test Item Value Reference Range Interpretation [...] PATIENT CARE STAFF: MYRIAM 12/05/19 AT 0630 BYJacksonvilleZachery rodriguez IS A CBN DRAW- [facility] [id number] 18:50:00[facility] : 1940 Sex: F Patient Name: JORGE A SHERMAN Unit No: [id number] EXAMS: CPT CODE: [id number] US ABDOMEN COMPLETE 55025 EXAM: Abdominal ultrasound complete Location: H24 HISTORY: [...] 8.0 cm.. There is thinning of the renal cortices and slightly increased echogenicity which may indicate [...] Reported and signed by: Olayinka Weiner M.D. [facility] NAME: JORGE A SHERMAN [id number] PHYS: [place] [address] : 1940 AGE: 79 SEX: F LOC: Z.SI06 A PHONE #: [phone] EXAM DATE: 12/04/2019 STATUS: ADM IN FAX #: [phone] RADIOLOGY NO: PAGE 1 Signed Report (CONTINUED) Patient Name: JORGE A SHERMAN Unit No:[id number] EXAMS: CPT CODE: [id number] US ABDOMEN COMPLETE 65282 (Continued) CC: Tevin Sutherland MD Technologist: Citlaly Jones RDMS(AB) Transcrpt Date/Tm/Trnsp: 12/04/2019 (1849) DoyleR.AL7 Orig Print D/T: S: 12/04/2019 (1853) [facility] NAME: JORGE A SHERMAN [id number] PHYS:[place] [address] : 1940 AGE: 79 SEX: F LOC: Z.SI06 A PHONE #: [phone] EXAM DATE: 12/04/2019 STATUS: ADM IN FAX #: [phone] RADIOLOGY NO: PAGE 2 Signed Report- CT ABD PELVIS [id number] 18:09:00 [facility] : 1940 Sex: F Patient Name: JORGE A SHERMAN Unit No: [id number] EXAMS: CPT CODE: [id number] CT ABD PELVIS W/CONT 35373 EXAM: - CT ABD PELVIS W/CONT Location: H24 INDICATION: ABDOMINAL PAIN COMPARISON: None Technique: Axial images of the abdomen, and pelvis were obtained after the administration of 100 mL Isovue 300 intravenous contrast. Coronal and sagittal reformatted images were created. One or more of the following dose reduction techniques were used: Automated exposure control, adjustment of the mA and/or kV according to patient size, and/or utilization of iterative reconstruction technique. GFR: Greater than 60 , Creatinine: 0.7 mg/dL DLP: 493 mGy-cm. FINDINGS: Abdomen Lower thorax: There are small layering bilateralpleural effusions with adjacent compressive atelectasis. Heart is mildly enlarged. 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 Partially visualized mitral valve calcification is noted. There is no pericardial effusion. 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 Hepatobiliary: There is pneumobilia. No discrete intrahepatic lesions are seen. Slight prominence of extrahepatic bile duct is most likely due to postcholecystectomy changes. Gallbladder: Surgical absence Spleen: No visualized abnormality. Pancreas: No visualized abnormality. Adrenals: No visualized abnormality. Kidneys: Multiple tiny cysts are present within the kidneys, which are too small to characterize. There is slight cortical thinning. Nohydronephrosis or hydroureter Bowel: There is fluid and gas distention of distal small bowel loops as well as proximal colonic loops followed to the descending colon. No obstruction is evident. Small gas and stool seen more distally within the rectum. Findings may indicate ileus. Slight thickening of the ileocolic junction may indicate further infectious/inflammatory etiology. Proximal small bowel loops are normal in caliber. The stomach and gastroesophageal junction are within normal limits. Appendix is not visualized. Vessels: There is extensive calcification within the abdominal aorta. No aneurysmal dilatation. [facility] NAME: JORGE A SHERMAN [id number] PHYS: [place] [address] : 1940 AGE: 79 SEX: F [facility]: [id number] LOC: Z.SI06 A PHONE #: [phone] EXAM DATE: 12/04/2019 STATUS: ADM IN FAX #: [phone] RAD #: D/C DT PAGE 1 Signed Report (CONTINUED) Patient Name: JORGE A SHERMAN Unit No: [id number] EXAMS: CPT CODE: [id number] CT ABD PELVIS W/CONT 60863 (Continued) Lymph nodes: No adenopathy. Peritoneum/retroperitoneum: There is small free fluid tracking along the right paracolic gutter. There is no free intraperitoneal air. FINDINGS: Pelvis Pelvic organs/bladder: There is abnormal contrast collection adjacent to the right common femoral artery which may represent pseudoaneurysm. This focus measures 1.6 x 1.8 x 2.3 cm. There is small nonenhancing fluid adjacent to this focus. No large hematoma is otherwise seen. There is surgical absence ofthe uterus. Adnexal structures are otherwise within normal [...] cm which may represent pseudoaneurysm. Small adjacent fluidis seen without large hematoma. 2. Slight mural thickening of the ileocolic junction and slight dilation of the distal small bowel loops and proximal colonic loops which may represent infectious/inflammatory with associated ileus. No mechanical obstruction is evident. 3. Small layering bilateral pleural effusions with adjacent atelectasis. 4. Small ascites. 5. Pneumobilia. There is surgical absence of the gallbladder. Preliminary findings were given to Dr. Carson at 1805 hours on 12/04/2019. at 1809 Reported and signed by: Olayinka Weiner M.D.CC: Tevin Samuels; Ramu Sutherland MD Technologist: Deonte Plata, RT(R); [facility] CTDI: DLP:Trnscrpt: 12/04/2019 (180) AuraAL7 [facility] NAME: JORGE A SHERMAN [id number] PHYS: Donna Pino MD [place] [id number] : 1940 AGE: 79 SEX: F LOC: Z.SI06 A PHONE #: [phone] EXAM DATE: 12/04/2019 STATUS: ADM IN FAX #: [phone] RAD #: D/C DT PAGE 2Signed Report Patient Name: JORGE A SHERMAN Unit No: [id number] EXAMS: CPT CODE: [id number] CT ABD PELVIS W/CONT 04175 (Continued) Orig Print D/T: S: 12/04/2019 (181) [facility] NAME: JORGE A SHERMAN [id number] PHYS: [place] [address] : 1940 AGE: 79 SEX: F LOC: RICHARD A PHONE #: [phone] EXAM DATE: 12/04/2019 STATUS: ADM IN FAX #: RAD #: D/C DT PAGE 3 Signed ReportGLUCOSE BEDSIDE [id number] 17:09:00 Test Item Value Reference Range Interpretation Comments GLUCOSE BEDSIDE TESTING (test code 134 MG/DL 60-99 H = GLUBED) HEART [id number] 13:06:00 Test Item Value Reference Range Interpretation Comments HEART VALVE (test code = HEARTV) RUN DATE: 12/04/19 [facility] - LAB PAGE 1 RUN TIME: 1306 Specimen Inquiry RUN USER: INTERFACE PATIENT: JORGE A SHERMAN LOC: JEF U #: [id number] AGE/SX: 79/F ROOM: RICHARD RE11/26/19REG DR: Tevin Samuels MD : [birth year] BED: A DIS: STATUS: ADM IN TLOC: SPEC #: [id number]:COCHRAN:[id number] RECD: 12/01/19 STATUS: DEVORA ALLEN #: [id number] KEENAN: 11/30/19 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 [address] Home Bryant MD R1 [address] [place] [address] [place] [address] [place] [address] Ramu Sutherland MD [address] [place], [place] [id number] [place] [address] [facility] [address] [place] [address] [place] [address] [place] [address] CONTINUED ON NEXT PAGE RUN DATE: 12/04/19 [facility] - LAB PAGE 2 RUN TIME: 1306 Specimen Inquiry RUN USER: INTERFACE SPEC #: [id number]:COCHRAN:[id number] PATIENT: JORGE A SHERMAN #[id number] (Continued) PROCEDURES: DECAL (12/01/19) SURG PATH LVL 4 (12/01/19) TISSUES: A. AORTIC VALVE, NOS - AORTIC VALVE CPT CODES CPT CODE(S): 42235 , 78060 , , , , , FINAL DIAGNOSIS [...] 12/04/19 1306 END OF REPORT COMPREHENSIVE METABOLIC [id number] 13:00:00 Test Item Value Reference Range Interpretation [...] Vitros Product TBil, BuBc: ======= ======= ======A geraldo Eltrombopa g Analyte/ Max Ob served Avg. Bias Concentration Concentration Concentration== ======= ======= ======= =======TBil 7mg /dl TBil/ 1.2mg/dl +0.23mg.dl +0.20mg/dlBuBc 3.5mg/dl Bu/0.8 mg/dl +0.25mg/dl +0.24mg/dlBuBc 7 mg/dl Bu/14.2mg/dl +0.38mg/dl +0.25mg/dlBuBc 5mg/dl Bc/0mg/dl +0.25 mg/dl +0.15mg/dlBuBc 3.5mg/dl Bc/2.8 mg/dl +0.25mg/dl +0.2 3mg/dl SGOT/AST (test code 46 UNITS/L 14-36 H = AST) SGPT/ALT (test code 50 UNITS/L <35 = ALT) ALKALINE PHOSPHATASE 105 UNITS/L 38-126 N (test code = ALKP) PROTHROMBIN [id number] 12:57:00 Test Item Value Reference Range Interpretation Comments PROTHROMBIN TIME 25.3 SECONDS 9.4-12.5 H PATIENT (test code = PTP) INTERNATIONAL NORMAL 2.3 The INR is to be RATIO (test code = used only for INR) monitoring oral anticoagulantth erap y. INDICATION INR VALUE ---- ---- ---- -------1. Prophylaxis, de ep venous thrombos is, including high risk surgery. 2.0 - 3.0 2. Prophylaxis, deep venous thrombosis, hip surgery, treatm ent for deep venous thrombosis or pulmonary prevention of systemic emboli sm in patients wit h valvular heart disease, atrial fibrillation, tissue heart va lve, or acute myocar dial infarction. 2.0 - 3.0 3. Calender Roll Operator al prosthesis hear t valves, recurre nt systemic emboli sm. 3.0 - 4.5 COMPREHENSIVE METABOLIC [id number] 12:55:00 Test Item Value Reference Range Interpretation [...] 38-126 (test code = ALKP) CBC W/AUTO [id number] 12:54:00 Test Item Value Reference Range Interpretation [...] 0.00 K/mm3 0.0-0.1 N NRBC#) COMPREHENSIVE METABOLIC [id number] 12:53:00 Test Item Value Reference Range Interpretation [...] code = UNITS/L 38-126 ALKP) GLUCOSE BEDSIDE [id number] 12:46:00 Test Item Value Reference Range Interpretation Comments GLUCOSE BEDSIDE TESTING 111 MG/DL 60-99 H Noti fied Nurse~ (test code = GLUBED) GLUCOSE BEDSIDE [id number] 10:31:00 Test Item Value Reference Range Interpretation Comments GLUCOSE BEDSIDE TESTING (test code 109 MG/DL 60-99 H = GLUBED) GLUCOSE BEDSIDE [id number] 10:31:00 Test Item Value Reference Range Interpretation Comments GLUCOSE BEDSIDE TESTING (test code 112 MG/DL 60-99 H = GLUBED) GLUCOSE BEDSIDE [id number] 10:31:00 Test Item Value Reference Range Interpretation Comments GLUCOSE BEDSIDE TESTING (test code 124 MG/DL 60-99 H = GLUBED) GLUCOSE BEDSIDE [id number] 10:30:00 Test Item Value Reference Range Interpretation Comments GLUCOSE BEDSIDE TESTING (test code 143 MG/DL 60-99 H = GLUBED) - XR CHEST [id number] 08:28:00 [facility] : 1940 Sex: F Patient Name: JORGE A SHERMAN Unit No: [id number] EXAMS: CPT CODE: [id number] XR CHEST 1V 85138 B2 EXAM: - XR CHEST 1V HISTORY: S/P CABG COMPARISON: 12/03/2019 FINDINGS: Subclavian central line in unchanged position. Median sternotomy wires and prosthetic heart valve again noted. Patchy retrocardiac airspace opacities. No pleural effusion or pneumothorax. The cardiac silhouette is within normal limits. Moderateatherosclerotic calcification in the aortic arch. No acute osseous abnormalities. IMPRESSION: Retrocardiac atelectasis and/or pulmonary edema. at 0828 Reported and signed by: Haresh Gross MD CC: Tevin Samuels; Ramu Sutherland MD Technologist: Yobani Elias, RT(R) Transcrpt Date/Tm/Trnsp: 12/04/2019 (08) t.SDR.VB7 Orig Print D/T: S: 12/04/2019 (0831) [facility] NAME: JORGE A SHERMAN [id number] PHYS: [place] [address] : 1940 AGE: 79 SEX: F LOC: Z.SI06 A PHONE #: [phone] EXAM DATE: 12/04/2019 STATUS: ADM IN FAX #: [phone] RADIOLOGY NO: PAGE 1 Signed ReportGLUCOSE BEDSIDE [id number] 08:00:00 Test Item Value Reference Range Interpretation Comments GLUCOSE BEDSIDE TESTING (test code 167 MG/DL 60-99 H = GLUBED) GLUCOSE BEDSIDE [id number] 20:26:00 Test Item Value Reference Range Interpretation Comments GLUCOSE BEDSIDE TESTING (test code 140 MG/DL 60-99 H = GLUBED) - XR CHEST [id number] 15:49:00 [facility] : 1940 Sex: F Patient Name: JORGE A SHERMAN Unit No: [id number] EXAMS: CPT CODE: [id number] XR CHEST 1V 84707 EXAM: - XR [id number] CLINICAL HISTORY: CHEST TUBE REMOVAL COMPARISON: Chest [...] airspace opacity or large pneumothorax. Unchanged cardiomegaly. ElectronicallySigned by Jim Rosales MD on 12/03/2019 at 1549 Reported and signed by: Jim Rosales MD CC: Kendall Sutherland MD Technologist: Zoltan Low (RT) Transcrpt Date/Tm/Trnsp: 12/03/2019 (1549) t.SDR.JW22 Orig Print D/T: S: 12/03/2019 (7373) [facility] NAME: JORGE A SHERMAN [id number] PHYS: [place] [address] : 1940 AGE: 79 SEX: F LOC: Z.SI06 A PHONE #: [phone] EXAM DATE: 12/03/2019 STATUS: ADM IN FAX #: [phone] RADIOLOGY NO: PAGE 1 Signed ReportGLUCOSE BEDSIDE [id number] 11:56:00 Test Item Value Reference Range Interpretation Comments GLUCOSE BEDSIDE TESTING (test code 160 MG/DL 60-99 H = GLUBED) - XR CHEST [id number] 06:30:00 [facility] : 1940 Sex: F Patient Name: JORGE A SHERMAN Unit No: [id number] EXAMS: CPT CODE: [id number] XR CHEST 1V 46661 Location of dictation: B2 Portable chest one [...] 0630 Reported and signed by: Ella Craft M.D. CC: Tevin Samuels; Ramu Sutherland MD Technologist: Yobani Elias, RT(R) Transcrpt Date/Tm/Trnsp: 12/03/2019 (0630) t.SDR.PXC Orig Print D/T: S: 12/03/2019 (0633) [facility] NAME: JORGE A SHERMAN [id number] PHYS: [place] [address] : 1940 AGE: 79 SEX: F LOC: Z.SI06 A PHONE #: [phone] EXAM DATE: 12/03/2019 STATUS: ADM IN FAX #: [phone] RADIOLOGY NO: PAGE 1 Signed ReportGLUCOSE BEDSIDE [id number] 21:37:00 Test Item Value Reference Range Interpretation Comments GLUCOSE BEDSIDE TESTING (test code 102 MG/DL 60-99 H = GLUBED) GLUCOSE BEDSIDE [id number] 17:38:00 Test Item Value Reference Range Interpretation Comments GLUCOSE BEDSIDE TESTING (test code 155 MG/DL 60-99 H = GLUBED) GLUCOSE BEDSIDE [id number] 12:02:00 Test Item Value Reference Range Interpretation Comments GLUCOSE BEDSIDE TESTING (test code 139 MG/DL 60-99 H = GLUBED) PROTHROMBIN [id number] 10:15:00 Test Item Value Reference Range Interpretation Comments PROTHROMBIN TIME 15.3 SECONDS 9.4-12.5 H PATIENT (test code = PTP) INTERNATIONAL NORMAL 1.4 The INR is to be RATIO (test code = used only for INR) monitoring oral anticoagulantth erap y. INDICATION INR VALUE ---- ---- ---- -------1. Prophylaxis, de ep venous thrombos is, including high risk surgery. 2.0 - 3.0 2. Prophylaxis, deep venous thrombosis, hip surgery, treatm ent for deep venous thrombosis or pulmonary prevention of systemic emboli sm in patients wit h valvular heart disease, atrial fibrillation, tissue heart va lve, or acute myocar dial infarction. 2.0 - 3.0 3. Calender Roll Operator al prosthesis hear t valves, recurre nt systemic emboli sm. 3.0 - 4.5 UNABLE TO DRAW BLOOD, REASON: CBNNOTIFIED PATIENT CARE STAFF: ON 12/02/19 AT 0715 BY Tolu LeggettLUCASAD BEDSIDE [id number] 08:05:00 Test Item Value Reference Range Interpretation Comments GLUCOSE BEDSIDE TESTING (test code 135 MG/DL 60-99 H = GLUBED) - XR CHEST [id number] 06:21:00 [facility] RULACHRISTINAJORGE A : 1940 Sex: F Patient Name: JORGE A SHERMAN Unit No: [id number] EXAMS: CPT CODE: [id number] XR CHEST 1V 29186 HISTORY: Follow-up Location: COMPARISON:12/01/2019 FINDINGS: 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 Endotracheal tube and nasogastric tube have been removed. Viola-Laura catheter has been removed. No pneumothorax. Mild cardiomegaly persists. Perihilar and retrocardiac left basilar opacity persists. No other changes from prior study. IMPRESSION: 1. Interval extubation and interval removal of Viola-Laura catheter. 2. No pneumothorax. No other changes from prior study. at 0621 Reported and signed by: Donna Foy MD CC: Tevin Samuels; Ramu Sutherland MD Technologist: Yobani Elias, RT(R) Transcrpt Date/Tm/Trnsp: 12/02/2019 (620) t.SDR.RXC2 Orig Print D/T: S: 12/02/2019 (624) [facility] NAME: JORGE A SHERMAN [id number] PHYS: [place] [address] : 1940 AGE: 79 SEX: F LOC: Z .SI06 A PHONE #: [phone] EXAM DATE: 12/02/2019 STATUS: ADM IN FAX #: [phone] RADIOLOGY NO:PAGE 1 Signed ReportGLUCOSE BEDSIDE [id number] 19:57:00 Test Item Value Reference Range Interpretation Comments GLUCOSE BEDSIDE TESTING (test code 116 MG/DL 60-99 H = GLUBED) GLUCOSE BEDSIDE [id number] 18:10:00 Test Item Value Reference Range Interpretation Comments GLUCOSE BEDSIDE TESTING (test code 128 MG/DL 60-99 H = GLUBED) GLUCOSE BEDSIDE [id number] 17:09:00 Test Item Value Reference Range Interpretation Comments GLUCOSE BEDSIDE TESTING (test code 120 MG/DL 60-99 H = GLUBED) GLUCOSE BEDSIDE [id number] 15:48:00 Test Item Value Reference Range Interpretation Comments GLUCOSE BEDSIDE TESTING (test code 122 MG/DL 60-99 H = GLUBED) GLUCOSE BEDSIDE [id number] 14:09:00 Test Item Value Reference Range Interpretation Comments GLUCOSE BEDSIDE TESTING (test code 117 MG/DL 60-99 H = GLUBED) GLUCOSE BEDSIDE [id number] 13:23:00 Test Item Value Reference Range Interpretation Comments GLUCOSE BEDSIDE TESTING (test code 112 MG/DL 60-99 H = GLUBED) GLUCOSE BEDSIDE [id number] 12:26:00 Test Item Value Reference Range Interpretation Comments GLUCOSE BEDSIDE TESTING (test code 121 MG/DL 60-99 H = GLUBED) GLUCOSE BEDSIDE [id number] 11:12:00 Test Item Value Reference Range Interpretation Comments GLUCOSE BEDSIDE TESTING (test code 133 MG/DL 60-99 H = GLUBED) GLUCOSE BEDSIDE [id number] 10:24:00 Test Item Value Reference Range Interpretation Comments GLUCOSE BEDSIDE TESTING (test code 139 MG/DL 60-99 H = GLUBED) GLUCOSE BEDSIDE [id number] 09:26:00 Test Item Value Reference Range Interpretation Comments GLUCOSE BEDSIDE TESTING (test code 139 MG/DL 60-99 H = GLUBED) GLUCOSE BEDSIDE [id number] 08:31:00 Test Item Value Reference Range Interpretation Comments GLUCOSE BEDSIDE TESTING (test code 138 MG/DL 60-99 H = GLUBED) - XR CHEST [id number] 07:58:00 [facility] : 1940 Sex: F Patient Name: SHERMANJORG EA Unit No: [id number] EXAMS: CPT CODE: [id number] XR CHEST 1V 26572 B2 EXAM: - XR CHEST 1V HISTORY: S/P CABG COMPARISON: 11/30/2019 FINDINGS: Endotracheal tube, nasogastric tube, Viola-Laura catheter and right subclavian central line in [...] Leonie Moon RT(R) Transcrpt Date/Tm/Trnsp: 12/01/2019 (0758) t.SDR.VB7 Orig Print D/T: S: 12/01/2019 (0801) [facility] NAME: JORGE A SHERMAN [id number] PHYS: [place] [address] : 1940 AGE: 79 SEX: F LOC: Z.SI06 A PHONE #: [phone] EXAM DATE: 12/01/2019 STATUS: ADM IN FAX #: [phone] RADIOLOGY NO: PAGE 1 Signed ReportGLUCOSE BEDSIDE [id number] 07:12:00 Test Item Value Reference Range Interpretation Comments GLUCOSE BEDSIDE TESTING (test code 137 MG/DL 60-99 H = GLUBED) GLUCOSE BEDSIDE [id number] 06:21:00 Test Item Value Reference Range Interpretation Comments GLUCOSE BEDSIDE TESTING (test code 141 MG/DL 60-99 H = GLUBED) GLUCOSE BEDSIDE [id number] 03:09:00 Test Item Value Reference Range Interpretation Comments GLUCOSE BEDSIDE TESTING (test code 158 MG/DL 60-99 H = GLUBED) GLUCOSE BEDSIDE [id number] 02:23:00 Test Item Value Reference Range Interpretation Comments GLUCOSE BEDSIDE TESTING (test code 149 MG/DL 60-99 H = GLUBED) GLUCOSE BEDSIDE [id number] 23:56:00 Test Item Value Reference Range Interpretation Comments GLUCOSE BEDSIDE TESTING (test code 171 MG/DL 60-99 H = GLUBED) GLUCOSE BEDSIDE [id number] 23:08:00 Test Item Value Reference Range Interpretation Comments GLUCOSE BEDSIDE TESTING (test code 163 MG/DL 60-99 H = GLUBED) GLUCOSE BEDSIDE [id number] 21:54:00 Test Item Value Reference Range Interpretation Comments GLUCOSE BEDSIDE TESTING (test code 164 MG/DL 60-99 H = GLUBED) BASIC METABOLIC [id number] 21:36:00 Test Item Value Reference Range Interpretation [...] code = 8.2 MG/DL 8.4-10.2 L CA) [id number] 21:36:00 Test Item Value Reference Range Interpretation Comments MAGNESIUM (test code = 6.7 MG/DL 1.6-2.3 MAYNARD D TO ANA Carr& MAG) READBACK ON AT 2136 BY Dario Maria BASIC METABOLIC [id number] 21:33:00 Test Item Value Reference Range Interpretation [...] code = 8.2 MG/DL 8.4-10.2 L CA) [id number] 21:33:00 Test Item Value Reference Range Interpretation Comments MAGNESIUM (test code = MAG) MG/DL 1.6-2.3 PROTHROMBIN [id number] 21:31:00 Test Item Value Reference Range Interpretation Comments PROTHROMBIN TIME 13.2 SECONDS 9.4-12.5 H PATIENT (test code = PTP) INTERNATIONAL NORMAL 1.2 The INR is to be RATIO (test code = used only for INR) monitoring oral anticoagulantth erap y. INDICATION I NR VALUE ---- ---- ---- -------1. Prophylaxis, de ep venous thrombos is, including high risk surgery. 2.0 - 3.0 2. Prophylaxis, deep venous thrombosis, hip surgery, treatm ent for deep venous thrombosis or pulmonary prevention of systemic emboli sm in patients wit h valvular heart disease, atrial fibrillation, tissue heart va lve, or acute myocar dial infarction. 2.0 - 3.0 3. Calender Roll Operator al prosthesis hear t valves, recurre nt systemic emboli sm. 3.0 - 4.5 Comments to Dukey Rider: PEDIATRIC TUBES!Comments to Dukey Rider: PEDIATRIC TUBESPTT [id number] 21:31:00 Test Item Value Reference Range Interpretation Comments PTT ACTIVATED (test code = APTT) 21.8 SECONDS 25.1-36.5 L Comments to Dukey Rider: PEDIATRIC TUBES!Comments to Dukey Rider: PEDIATRIC TUBESBASIC METABOLIC [id number] 21:30:00 Test Item Value Reference Range Interpretation [...] CALCIUM (test code = CA) MG/DL 8.7-9.7 [id number] 21:30:00 Test Item Value Reference Range Interpretation Comments MAGNESIUM (test code = MAG) MG/DL 1.6-2.3 CBC W/AUTO [id number] 21:24:00 Test Item Value Reference Range Interpretation [...] K/mm3 0.0-0.1 N NRBC#) - XR CHEST [id number] 20:54:00 [facility] : 1940 Sex: F Patient Name: JORGE A SEHRMAN Unit No: [id number] EXAMS: CPT CODE: [id number] XR CHEST 1V 34585 EXAM: - XR CHEST 1V LOCATION: C3 HISTORY: S/P CABG COMPARISON: 11/29/2019 FINDINGS: Single view of the chest. Right subclavian catheter tip overlies the cubital junction. Viola-Laura catheter tip overlies main pulmonarytrunk. Endotracheal tube tip is 2.3 cm above the mayank. No pneumothorax. The lungs are clear without significant effusions. The mediastinal contours are unremarkable/unchanged. No acute osseous findings are present. IMPRESSION: No acute cardiopulmonary abnormality. Lines and tubes as above. at 2053 Reported and signed by: Malachi Dobbins [facility]: Tevin Samuels; Ramu Sutherland MD Technologist: Clarita Webster (RT)(R) Transcrpt Date/Tm/Trnsp: 11/30/2019 (2053) DoyleR.HV2 Orig Print D/T: S: 11/30/2019 (2056) [facility] NAME: EFREN [address]ERMANA[address] PHYS: [place] [address] : 1940 AGE: 79 SEX: F LOC: Z.SI06 A PHONE #: [phone] EXAM DATE: 11/30/2019 STATUS: ADM IN FAX #: [phone] RADIOLOGY NO: PAGE 1 Signed ReportGLUCOSE BEDSIDE [id number] 20:17:00 Test Item Value Reference Range Interpretation Comments GLUCOSE BEDSIDE TESTING (test code 206 MG/DL 60-99 H = GLUBED) BASIC METABOLIC [id number] 19:45:00 Test Item Value Reference Range Interpretation [...] 7.7 MG/DL 8.4-10.2 L CA) BASIC METABOLIC [id number] 19:42:00 Test Item Value Reference Range Interpretation [...] (test code = MG/DL 8.7-9.7 CA) PROTHROMBIN [id number] 19:42:00 Test Item Value Reference Range Interpretation Comments PROTHROMBIN TIME 22.7 SECONDS 9.4-12.5 H PATIENT (test code = PTP) INTERNATIONAL NORMAL 2.0 The INR is to be RATIO (test code = used only for INR) monitoring oral anticoagulantth erap y. INDICATION I NR VALUE ---- ---- ---- -------1. Prophylaxis, de ep venous thrombos is, including high risk surgery. 2.0 - 3.0 2. Prophylaxis, deep venous thrombosis, hip surgery, treatm ent for deep venous thrombosis or pulmonary prevention of systemic emboli sm in patients wit h valvular heart disease, atrial fibrillation, tissue heart va lve, or acute myocar dial infarction. 2.0 - 3.0 3. Calender Roll Operator al prosthesis hear t valves, recurre nt systemic emboli sm. 3.0 - 4.5 PTT [id number] 19:42:00 Test Item Value Reference Range Interpretation Comments PTT ACTIVATED (test code = APTT) 26.3 SECONDS 25.1-36.5 N BASIC METABOLIC [id number] 19:39:00 Test Item Value Reference Range Interpretation [...] code = CA) MG/DL 8.7-9.7 BASIC METABOLIC [id number] 19:38:00 Test Item Value Reference Range Interpretation [...] code = CA) MG/DL 8.7-9.7 CBC W/AUTO [id number] 19:32:00 Test Item Value Reference Range Interpretation [...] code = 0.00 K/mm3 0.0-0.1 N NRBC#) [id number] 18:06:00 Test Item Value Reference Range Interpretation Comments POTASSIUM (test code = K) 5.9 MMOL/L 3.5-5.1 H [id number] 18:06:00 Test Item Value Reference Range Interpretation Comments GLUCOSE (test code = GLU) 146 MG/DL 74-106 H [id number] 18:03:00 Test Item Value Reference Range Interpretation Comments POTASSIUM (test code = K) 5.9 MMOL/L 3.5-5.1 H [id number] 18:03:00 Test Item Value Reference Range Interpretation Comments GLUCOSE (test code = GLU) MG/DL 74-106 [id number] 17:57:00 Test Item Value Reference Range Interpretation Comments HEMOGLOBIN (test code = HGB) 7.2 G/DL 11.2-14.9 L [id number] 17:57:00 Test Item Value Reference Range Interpretation Comments HEMATOCRIT (test code = HCT) 22.9 % 33.2-43.5 L DIFFERENTIAL [id number] 17:03:00 Test Item Value Reference Range Interpretation Comments RBC MORPHOLOGY REQUIRED (test code = NORMAL RBCM) HYPERSEGMENTED POLYS (test code = FEW NONE HYPP) PLATELET ESTIMATE (test code = ADEQUATE ADEQUATE PLTEST) PLATELET MORPHOLOGY (test code = NORMAL NORMAL PLTMORPH) [id number] 17:03:00 Test Item Value Reference Range Interpretation Comments HEMOGLOBIN (test code = 4.5 G/DL 11.2-14.9 LL CALL ED TO [facility] B HGB) CITY COLLECTOR & READMAOC K ON 11/30/19 AT 162 5 BY Malachi Santamaria [id number] 17:03:00 Test Item Value Reference Range Interpretation Comments HEMATOCRIT (test code = 15.0 % 33.2-43.5 LL CALL ED TO [facility] OR HCT) RN & READBACK O N 11/30/19 AT 162 5 BY Malachi Santamaria [id number] 16:36:00 Test Item Value Reference Range Interpretation Comments POTASSIUM (test code = K) MMOL/L 3.5-5.1 [id number] 16:36:00 Test Item Value Reference Range Interpretation Comments GLUCOSE (test code = GLU) 138 MG/DL 74-106 H [id number] 16:36:00 Test Item Value Reference Range Interpretation Comments POTASSIUM (test code = K) 5.0 MMOL/L 3.5-5.1 N [id number] 16:36:00 Test Item Value Reference Range Interpretation Comments GLUCOSE (test code = GLU) 138 MG/DL 74-106 H DIFFERENTIAL [id number] 16:28:00 Test Item Value Reference Range Interpretation Comments RBC MORPHOLOGY REQUIRED (test code = RBCM) PLATELET ESTIMATE (test code = PLTEST) ADEQUATE PLATELET MORPHOLOGY (test code = NORMAL PLTMORPH) [id number] 16:28:00 Test Item Value Reference Range Interpretation Comments HEMOGLOBIN (test code = 4.5 G/DL 11.2-14.9 LL CALL ED TO [facility] B HGB) CITY COLLECTOR & READBAC K ON 11/30/19 AT 162 5 BY Malachi Santamaria [id number] 16:28:00 Test Item Value Reference Range Interpretation Comments HEMATOCRIT (test code = 15.0 % 33.2-43.5 LL CALL ED TO [facility] OR HCT) RN & READBACK O N 11/30/19 AT 162 5 BY Malachi Santamaria DIFFERENTIAL [id number] 16:28:00 Test Item Value Reference Range Interpretation Comments RBC MORPHOLOGY REQUIRED (test code = RBCM) PLATELET ESTIMATE (test code = PLTEST) ADEQUATE PLATELET MORPHOLOGY (test code = NORMAL PLTMORPH) [id number] 16:28:00 Test Item Value Reference Range Interpretation Comments HEMOGLOBIN (test code = 4.5 G/DL 11.2-14.9 [facility] CITY COLLECTOR & READBAC K ON 11/30/19 AT 162 5 BY Malachi Santamaria [id number] 16:28:00 Test Item Value Reference Range Interpretation Comments HEMATOCRIT (test code = 15.0 % 33.2-43.5 LL CALL ED TO [facility] OR HCT) RN & READBACK O N 11/30/19 AT 162 5 BY Malachi Santamaria BASIC METABOLIC [id number] 13:26:00 Test Item Value Reference Range Interpretation [...] CA) PLEASE CALL RESULTS TO PHONE #: [phone] STATBASIC METABOLIC [id number] 13:25:00 Test Item Value Reference Range Interpretation [...] CA) PLEASE CALL RESULTS TO PHONE #: [phone] [employer] [id number] 13:22:00 Test Item Value Reference Range Interpretation [...] 8.7-9.7 PLEASE CALL RESULTS TO PHONE #: [phone] [employer] METABOLIC [id number] 13:22:00 Test Item Value Reference Range Interpretation [...] 8.7-9.7 PLEASE CALL RESULTS TO PHONE #: [phone] [facility] W/AUTO [id number] 13:13:00 Test Item Value Reference Range Interpretation [...] NRBC#) PLEASE CALL RESULTS TO PHONE #: [phone] STATHIV 12 AB [id number] 18:12:00 Test Item Value Reference Range Interpretation Comments HIV 1 2 COMBO AG/AB SCREEN AB/AG NON REACTIVE NONREACTIVE (test code = [id number]) PROTHROMBIN [id number] 17:56:00 Test Item Value Reference Range Interpretation Comments PROTHROMBIN TIME 14.1 SECONDS 9.4-12.5 H PATIENT (test code = PTP) INTERNATIONAL NORMAL 1.3 The INR is to be RATIO (test code = used only for INR) monitoring oral anticoagulantth erap y. INDICATION I NR VALUE ---- ---- ---- -------1. Prophylaxis, de ep venous thrombos is, including high risk surgery. 2.0 - 3.0 2. Prophylaxis, deep venous thrombosis, hip surgery, treatm ent for deep venous thrombosis or pulmonary prevention of systemic emboli sm in patients wit h valvular heart disease, atrial fibrillation, tissue heart va lve, or acute myocar dial infarction. 2.0 - 3.0 3. Calender Roll Operator al prosthesis hear t valves, recurre nt systemic emboli sm. 3.0 - 4.5 PTT [id number] 17:56:00 Test Item Value Reference Range Interpretation Comments PTT ACTIVATED (test code = APTT) 35.0 SECONDS 25.1-36.5 N PLT RESPONSE TO [id number] 17:56:00 Test Item Value Reference Range Interpretation Comments PLT RESPONSE TO 324 PRU 194-418 N P2Y12 Result s PLAVIX (test code = Interpre tation: Test PLAVRES) results are in P2Y12 Reaction Units (PRU). Pre-Drug Refere nce Range is 194-418. Pre -drug platelet functi on estimates the t otal possible platel et aggregation ind ependent of P2Y12 inhibi tor drugs. Values <194 cou ld be due to low HCT, low platelet count, or prese nce of IIb/IIIa inhibi tors. Post-Drug Resul ts: Lower PRU levels are associated with expected antiplatelet ef fect. Values may be b elow the stated referenc e range. Studies show th at patients with < 230 PRU had fewer adver se events. COMPREHENSIVE METABOLIC [id number] 17:40:00 Test Item Value Reference Range Interpretation [...] Product TBil, BuBc: ======= ======= ======A ssay Eltrombopa g Analyte/ Max Ob served Avg. Bias Concentration Concentration Concentration== ======= ======= ======= =======TBil 7mg /dl TBil/ 1.2mg/dl +0.23mg.dl +0.20mg/dlBuBc 3.5mg/dl Bu/0.8 mg/dl +0.25mg/dl +0.24mg/dlBuBc 7 mg/dl Bu/14.2mg/dl +0.38mg/dl +0.25mg/dlBuBc 5mg/dl Bc/0mg/dl +0.25 mg/dl +0.15mg/dlBuBc 3.5mg/dl Bc/2.8 mg/dl +0.25mg/dl +0.2 3mg/dl SGOT/AST (test code = 31 UNITS/L 14-36 N AST) SGPT/ALT (test code = 22 UNITS/L <35 ALT) ALKALINE PHOSPHATASE 95 UNITS/L 38-126 N (test code = ALKP) Specimen comments: if not done in the last 72 hoursLIPID PROFILE (CORONARY RISK) 2019-11-29 17:40:00 Test Item Value Reference Range Interpretation Comments TRIGLYCERIDES (test 226 MG/DL TRIGLYCE RIDES code = TRIG) REFERENCE RANGE:Normal: < 150 mg/dLBorderline High: 150-199 mg/dLHi gh: 200-499 mg/dLVe ry High: >=500 mg/ dL CHOLESTEROL (test code 163 MG/DL <200 = CHOL) HDL CHOLESTEROL (test 47 MG/DL 40-59 N code = HDL) LIPOPROTEIN LDL (test 80 MG/DL 0-99 N OPTIM AL.........<100 code = LDL) mg/dLNEAR OPTIMAL/ABOVE OPTIMAL........ .100-12 9 mg/dL BORDERL INE HIGH.........13 0-159 mg/dL HIGH.........16 0-189 mg/dL VERY HIGH.........>/ = 190 mg/dL Specimen comments: if not done in the last 72 hours- XR CHEST [id number] 17:32:00[facility] : 1940 Sex: F Patient Name: JORGE A SHERMAN Unit No: [id number] EXAMS: CPT CODE: [id number] XR CHEST 1V 00799 EXAM: - XR FLREI2Q LOCATION: C3 HISTORY: Cardiac/Heart Surgery COMPARISON: None available time of interpretation. [...] t.SDR.HV2 Orig Print D/T: S: 11/29/2019 (1735) [facility] NAME: JORGE A SHERMAN [id number] PHYS: [place] [address] : 1940 AGE: 79 SEX: F LOC: Z.355 A PHONE #: [phone] EXAM DATE: 11/29/2019 STATUS: ADM IN FAX #: [phone] RADIOLOGY NO: PAGE 1 Signed ReportCOMPREHENSIVE METABOLIC [id number] 17:29:00 Test Item Value Reference Range Interpretation [...] Product TBil, BuBc: ======= ======= ======A ssay Eltrombopa g Analyte/ Max Ob served Avg. Bias Concentration Concentration Concentration== ======= ======= ======= =======TBil 7mg /dl TBil/ 1.2mg/dl +0.23mg.dl +0.20mg/dlBuBc 3.5mg/dl Bu/0.8 mg/dl +0.25mg/dl +0.24mg/dlBuBc 7 mg/dl Bu/14.2mg/dl +0.38mg/dl +0.25mg/dlBuBc 5mg/dl Bc/0mg/dl +0.25 mg/dl +0.15mg/dlBuBc 3.5mg/dl Bc/2.8 mg/dl +0.25mg/dl +0.2 3mg/dl SGOT/AST (test code = 31 UNITS/L 14-36 N AST) SGPT/ALT (test code = 22 UNITS/L <35 ALT) ALKALINE PHOSPHATASE 95 UNITS/L 38-126 N (test code = ALKP) Specimen comments: if not done in the last 72 hoursLIPID PROFILE (CORONARY RISK) 2019-11-29 17:29:00 Test Item Value Reference Range Interpretation [...] done in the last 72 hoursCOMPREHENSIVE METABOLIC PANEL 2019-11-29 17:28:00 Test Item Value Reference Range Interpretation [...] in the last 72 hoursLIPID PROFILE (CORONARY RISK) 2019-11-29 17:28:00 Test Item Value Reference Range Interpretation Comments TRIGLYCERIDES (test code = TRIG) MG/DL CHOLESTEROL (test code = CHOL) 163 MG/DL <200 HDL CHOLESTEROL (test code = HDL) MG/DL 40-59 LIPOPROTEIN LDL (test code = LDL) MG/DL 0-99 Specimen comments: if not done in the last 72 hoursGLYCOSYLATED HEMOGLOBIN PANEL 2019-11-29 17:27:00 Test Item Value Reference Range Interpretation Comments GLYCOSYLATED 5.7 % 4.8-5.9 N Any condition t hat HEMOGLOBIN (HA1C) shortens e rythocyte (test code = survival or dec reasesmean GLYHGB) erythrocyte age (e.g., recovery from a cute blood loss,hemolytic anemia) will falsely lo wer HGBA1c resultsregardle ss of the method used. HG BA1c results from [facility] HbSS, HbCC, and [...] H (test code = MBG) COMPREHENSIVE METABOLIC [id number] 17:26:00 Test Item Value Reference Range Interpretation [...] in the last 72 hoursLIPID PROFILE (CORONARY RISK) 2019-11-29 17:26:00 Test Item Value Reference Range Interpretation Comments TRIGLYCERIDES (test code = TRIG) MG/DL CHOLESTEROL (test code = CHOL) MG/DL <200 HDL CHOLESTEROL (test code = HDL) MG/DL 40-59 LIPOPROTEIN LDL (test code = LDL) MG/DL 0-99 Specimen comments: if not done in the last 72 hoursCOMPREHENSIVE METABOLIC PANEL 2019-11-29 17:25:00 Test Item Value Reference Range Interpretation [...] in the last 72 hoursLIPID PROFILE (CORONARY RISK) 2019-11-29 17:25:00 Test Item Value Reference Range Interpretation Comments TRIGLYCERIDES (test code = TRIG) MG/DL CHOLESTEROL (test code = CHOL) MG/DL <200 HDL CHOLESTEROL (test code = HDL) MG/DL 40-59 LIPOPROTEIN LDL (test code = LDL) MG/DL 0-99 Specimen comments: if not done in the last 72 hoursPROTHROMBIN [id number] 17:24:00 Test Item Value Reference Range Interpretation Comments PROTHROMBIN TIME 14.1 SECONDS 9.4-12.5 H PATIENT (test code = PTP) INTERNATIONAL NORMAL 1.3 The INR is to be RATIO (test code = used only for INR) monitoring oral anticoagulantth erap y. INDICATION INR VALUE ---- ---- ---- -------1. Prophylaxis, de ep venous thrombos is, including high risk surgery. 2.0 - 3.0 2. Prophylaxis, deep venous thrombosis, hip surgery, treatm ent for deep venous thrombosis or pulmonary prevention of systemic emboli sm in patients wit h valvular heart disease, atrial fibrillation, tissue heart va lve, or acute myocar dial infarction. 2.0 - 3.0 3. Calender Roll Operator al prosthesis hear t valves, recurre nt systemic emboli sm. 3.0 - 4.5 PTT [id number] 17:24:00 Test Item Value Reference Range Interpretation Comments PTT ACTIVATED (test code = APTT) 35.0 SECONDS 25.1-36.5 N PLT RESPONSE TO [id number] 17:24:00 Test Item Value Reference Range Interpretation Comments PLT RESPONSE TO PLAVIX (test code = PRU 194-418 PLAVRES) CBC W/AUTO [id number] 17:14:00 Test Item Value Reference Range Interpretation [...] 112 MG/DL 60-99 H = GLUBED) T4 [id number] 17:37:00 Test Item Value Reference Range Interpretation Comments T4 FREE (test code = T4F) 1.3 NG/DL 0.78-2.19 N - CT ANGIO NECK W WO [id number] 17:37:00 [facility] : 1940 Sex: F Patient Name: JORGE A SHERMAN Unit No: [id number] EXAMS: CPT CODE: [id number] CT [place]GIO [place]ECK W [place] CONT [address] Examination: CTA head and neck with contrast. Location code: 60. TECHNIQUE: Multiple axial images of the head and neck were obtained after intravenous administration of contrast with sagittal and coronal r econstructions. MIP images were obtained in the sagittal and coronal format. CT examination was performed using automated dose reduction. 100 mL of Isovue-370 contrast was injected intravenously. Creatinine measures 0.7. GFR is greater than 60. Discussion: Clinical history is significant for dizzinessand blurred vision. The origin of both common carotid arteries and vertebral arteries are unremarkable. No flow limiting stenosis is identified. The remainder of both common carotid arteries are widelypatent. There is no evidence for dissection. No [...] identified. The remainder of both vertebral arteries arealso widely patent. The basilar artery is patent. Mild calcified plaque is identified in the supraclinoid portions of both internal carotid arteries without flow-limiting stenosis. There is no evidencefor aneurysm involving the anterior communicating artery, MCA bifurcation/trifurcation, basilar tip or posterior indicating arteries. There is no focal narrowing of the left posterior cerebral artery and its proximal portion of uncertain significance. The remainder of the posterior cerebral artery theleft is widely patent. The remainder the cerebral arteries are grossly unremarkable. No intraluminal thrombus is identified in the remainder the cerebral arteries. No abnormal enhancement is identifiedwith the brain after administration of contrast. Both parotid glands and submandibular glands are normal in appearance. No enlarged lymphadenopathy is noted. Thyroid gland is somewhat atrophic. Images through the lung apices reveals minimal biapical scarring. IMPRESSION: 1. 60-70% stenosis at the leftcarotid bulb which is borderline hemodynamically significant. 2. Approximately 40% stenosis of the proximal right internal carotid artery at the level of the carotid bulb. 3. Focal narrowing of the proximal left posterior cerebral artery. It is unclear if this is a an acute finding or a chronic finding. If signs and symptoms are referable to the left posterior cerebral artery [facility] NAME: JORGE A SHERMAN [id number] PHYS: [id number] Ranjana De Los Santos MD [address] [id number] : 1940 AGE: 79 SEX:F LOC: Z.355 A PHONE #: [phone] EXAM DATE: 11/27/2019 STATUS: ADM IN FAX #: [phone] RAD #: D/C DT PAGE 1 Signed Report (CONTINUED) Patient Name: JORGE A SHERMAN Unit No: [id number] EXAMS: CPT CODE: [id number] CT [place]IO [place] CONT [address]90 (Continued) circulation conventional angiography is recommended for further evaluation. 4. Otherwise unremarkable CTA examination of brain. at 1737 Reported and signed by: Anthony Boyer MD CC: Ramu Sutherland MD; Rashid Son MD; Ranjana Mcclelland MD Technologist: Ana Maria Tovar RT (R) (CT) CTDI: DLP: Trnscrpt: 11/27/2019 (1737) t.SDR.VR5 [facility] NAME: JORGE A SHERMAN [id number] PHYS: [id number] Ranjana De Los Santos MD [address] [place] [address] : 1940 AGE: 79 SEX: F LOC: Z.355 A PHONE #: [phone] EXAM DATE: 11/27/2019 STATUS: ADM IN FAX #: [phone] RAD #: D/C DT PAGE 2 Signed Report Patient Name: JORGE A SHERMAN Unit No: [id number] EXAMS: CPT CODE: [id number] CT ANGIO NECK W [place] CONT [address] (Continued) Orig Print D/T: S: 11/27/2019 (1740)[facility]: JORGE A SHERMAN [id number] PHYS: [id number] Ranjana De Los Santos MD [address] [place] [address] : 1940 AGE: 79 SEX: F LOC: ZKassandra355 A PHONE #: [phone] EXAM DATE: 11/27/2019 STATUS: ADM IN FAX #: [phone] RAD #: D/C DT PAGE 3 Signed Report- CT ANGIO [id number] 17:37:00 [facility] : 1940 Sex: F Patient Name: JORGE A SHERMAN Unit No: [id number] EXAMS: CPT CODE: [id number] CT ANGIO HEAD [address] Examination: CTA head and neck with contrast. Location code: [facility]. TECHNIQUE: Multiple axial images of the head and neck were obtained after intravenous administration of contrast with sagittal and coronal reconstruc tions. MIP images were obtained in the sagittal and coronal format. CT examination was performed using automated dose reduction. 100 mL of Isovue-370 contrast was injected intravenously. Creatinine measures 0.7. GFR is greater than 60. Discussion: Clinical history is significant for dizziness and blurred vision. The origin of both common carotid arteries and vertebral arteries are unremarkable. No flow limiting stenosis [...] artery is patent. Mild calcified plaque is identified in the supraclinoid portions of both internal carotid arteries without flow-limiting stenosis. There is no evidence for aneurysm involving the anterior communicating artery, MCA bifurcation/trifurcation, basilar tip or posterior indicating arteries. There is no focal narrowing of the left posterior cerebral artery and its proximal portion of uncertain significance. The remainder of the posterior cerebral artery the left is widely patent. The remainder the cerebral arteries are grossly unremarkable. No intraluminal thrombusis identified in the remainder the cerebral arteries. No abnormal enhancement is identified with thebrain after administration of contrast. Both parotid glands [...] referable to the left posterior cerebral artery [facility] NAME: JORGE A SHERMAN [id number] PHYS: [id number] - Ranjana Mcclelland MD [address] [place] [address] : 1940 AGE: 79 SEX: F LOC: Z.355 A PHONE #: [phone] EXAM DATE: 11/27/2019 STATUS: ADM IN FAX #: [phone] RAD #: D/C DT PAGE 1 Signed Report (CONTINUED) Patient Name: JORGE A SHERMAN Unit No: [id number] EXAMS: CPT CODE: [id number] CT ANGIO HEAD [address]188 (Continued) circulation conventional angiography isrecommended for further evaluation. 4. Otherwise unremarkable CTA examination of brain. Electroni kb Signed by Anthony Boyer MD on 11/27/2019 at 1737 Reported and signed by: Anthony Boyer MD CC: Ramu Sutherland MD; Rashid Son MD; Ranjana Mcclelland MD Technologist: Ana Maria Tovar RT (R) (CT) CTDI: DLP: Trnscrpt: 11/27/2019 (1737) t.SDR.VR5 [facility] NAME: JORGE A SHERMAN [id number] PHYS: Ranjaan Scott MD [address] [place] [address] : 1940 AGE: 79 SEX: F : Z.355 A PHONE #: [phone] EXAM DATE: 11/27/2019 STATUS: ADM IN FAX #: [phone] RAD #: D/C DT PAGE 2 Signed Report Patient Name: JORGE A SHERMAN Unit No: [id number] EXAMS: CPT CODE: [id number] CT ANGIO HEAD [address] (Continued) Orig Print D/T: S: 11/27/2019 (1740) [facility] NAME: JORGE A SHERMAN [id number] PHYS: [place] [address] : 1940 AGE: 79 SEX: F LOC: Z.355 A PHONE #: [phone] EXAM DATE: 11/27/2019 STATUS: ADM IN FAX #: [phone] RAD #: D/C DT PAGE 3 Signed ReportTSH REFLEX TO [id number] 17:02:00 Test Item Value Reference Range Interpretation Comments TSH REFLEX TO FT4 0.183 MIU/L 0.65-4.68 L Please be aware that (test code = bias results fo r TSH TSHREFLEX) may occur forpa tient who are taking Biotin supplements. C REACTIVE [id number] 16:34:00 Test Item Value Reference Range Interpretation Comments C REACTIVE PROTEIN (test code = 1.00 MG/DL 0.00-9.99 N CRP) - MRI BRAIN W/O [id number] 16:27:00 [facility] : 1940 Sex: F Patient Name: JORGE A SHERMAN Unit No: [id number] EXAMS: CPT CODE: [id number] MRI BRAIN W/O CONTRAST 98650 B2 -MRI BRAIN W/O CONTRAST HISTORY: TIA TECHNIQUE: Multiplanar multisequence MR images of the brain wereobtained without intravenous contrast. COMPARISON: None FINDINGS: No abnormal brain parenchymal signal. There is no mass, mass effect or abnormal extra-axial fluid collection. Diffusion-weighted imagesshow no hyperacute, acute or early subacute infarction. The ventricles are normal in size, shape, and position. There are normal signal voids in the larger intracranial vessels. The paranasal sinuses and mastoid air cells are predominantly clear. The marrow signal pattern is within normal limits. IMPRE SSION: No significant intracranial abnormalities. at 1627 Reported and signed by: Haresh Gross MD CC: Ramu Sutherland MD; Rashid Son MD Technologist: Debby Ceja(CT)(MRI) Transcrpt Date/Tm/Trnsp: 11/27/2019 (1627) t.CARLAR.VB7 Orig Print D/T: S: 11/27/2019 (1630) [facility] NAME: JORGE A SHERMAN [id number] PHYS: [place] [address] : 1940 AGE: 79 SEX: F LOC: Z.355 A PHONE #: [phone] EXAM DATE: 11/27/2019 STATUS: ADM IN FAX #: [phone] RADIOLOGY NO: PAGE 1 Signed Report GLUCOSE BEDSIDE [id number] 16:17:00 Test Item Value Reference Range Interpretation Comments GLUCOSE BEDSIDE TESTING (test code 118 MG/DL 60-99 H = GLUBED) BASIC METABOLIC [id number] 06:33:00 Test Item Value Reference Range Interpretation [...] LIPOPROTEIN LDL (test 90 MG/DL 0-99 N OPTIM AL.........<100 code = LDL) mg/dLNEAR OPTIMAL/ABOVE OPTIMAL........ .100-12 9 mg/dL BORDERL INE HIGH.........13 0-159 mg/dL HIGH.........16 0-189 mg/dL VERY HIGH.........>/ = 190 mg/dL [id number] 06:33:00 Test Item Value Reference Range Interpretation Comments MAGNESIUM (test code = MAG) 2.0 MG/DL 1.6-2.3 N BASIC METABOLIC [id number] 06:22:00 Test Item Value Reference Range Interpretation [...] LDL (test MG/DL 0-99 code = LDL) [id number] 06:22:00 Test Item Value Reference Range Interpretation Comments MAGNESIUM (test code = MAG) 2.0 MG/DL 1.6-2.3 N BASIC METABOLIC [id number] 06:21:00 Test Item Value Reference Range Interpretation [...] LDL (test code = LDL) MG/DL 0-99 [id number] 06:21:00 Test Item Value Reference Range Interpretation Comments MAGNESIUM (test code = MAG) MG/DL 1.6-2.3 BASIC METABOLIC [id number] 06:18:00 Test Item Value Reference Range Interpretation [...] LDL (test code = LDL) MG/DL 0-99 [id number] 06:18:00 Test Item Value Reference Range Interpretation Comments MAGNESIUM (test code = MAG) MG/DL 1.6-2.3 GLYCOSYLATED HEMOGLOBIN [id number] 06:07:00 Test Item Value Reference Range Interpretation Comments GLYCOSYLATED 5.8 % 4.8-5.9 N Any condition t hat HEMOGLOBIN (HA1C) shortens e rythocyte (test code = survival or dec reasesmean GLYHGB) erythrocyte age (e.g., recovery from a cute blood loss,hemolytic anemia) will falsely lo wer HGBA1c resultsregardle ss of the method used. HG BA1c results from [facility] HbSS, HbCC, and [...] 70-110 H (test code = MBG) PROTHROMBIN [id number] 06:03:00 Test Item Value Reference Range Interpretation Comments PROTHROMBIN TIME 15.1 SECONDS 9.4-12.5 H PATIENT (test code = PTP) INTERNATIONAL NORMAL 1.4 The INR is to be RATIO (test code = used only for INR) monitoring oral anticoagulantth erap y. INDICATION I NR VALUE ---- ---- ---- -------1. Prophylaxis, de ep venous thrombos is, including high risk surgery. 2.0 - 3.0 2. Prophylaxis, deep venous thrombosis, hip surgery, treatm ent for deep venous thrombosis or pulmonary prevention of systemic emboli sm in patients wit h valvular heart disease, atrial fibrillation, tissue heart va lve, or acute myocar dial infarction. 2.0 - 3.0 3. Calender Roll Operator al prosthesis hear t valves, recurre nt systemic emboli sm. 3.0 - 4.5 PTT [id number] 06:03:00 Test Item Value Reference Range Interpretation Comments PTT ACTIVATED (test code = APTT) 29.9 SECONDS 25.1-36.5 N CBC W/AUTO [id number] 05:52:00 Test Item Value Reference Range Interpretation [...] 0.00 K/mm3 0.0-0.1 N NRBC#) B-TYPE NATRIURETIC [id number] 21:04:00 Test Item Value Reference Range Interpretation Comments B-TYPE NATRIURETIC PEPTIDE (test 205.0 PG/ML 0-100 H code = BNP) COMPREHENSIVE METABOLIC [id number] 21:03:00 Test Item Value Reference Range Interpretation [...] Product TBil, BuBc: ======= ======= ======A ssay Eltrombopa g Analyte/ Max Ob served Avg. Bias Concentration Concentration Concentration== ======= ======= ======= =======TBil 7mg /dl TBil/ 1.2mg/dl +0.23mg.dl +0.20mg/dlBuBc 3.5mg/dl Bu/0.8 mg/dl +0.25mg/dl +0.24mg/dlBuBc 7 mg/dl Bu/14.2mg/dl +0.38mg/dl +0.25mg/dlBuBc 5mg/dl Bc/0mg/dl +0.25 mg/dl +0.15mg/dlBuBc 3.5mg/dl Bc/2.8 mg/dl +0.25mg/dl +0.2 3mg/dl SGOT/AST (test code = 28 UNITS/L 14-36 N AST) SGPT/ALT (test code = 18 UNITS/L <35 ALT) ALKALINE PHOSPHATASE 78 UNITS/L 38-126 N (test code = ALKP) [id number] 21:03:00 Test Item Value Reference Range Interpretation Comments TROPONIN-I (test code = TROPI) 0.043 NG/ML 0.012-0.033 H COMPREHENSIVE METABOLIC [id number] 20:53:00 Test Item Value Reference Range Interpretation [...] Product TBil, BuBc: ======= ======= ======A ssay Eltrombopa g Analyte/ Max Ob served Avg. Bias Concentration Concentration Concentration== ======= ======= ======= =======TBil 7mg /dl TBil/ 1.2mg/dl +0.23mg.dl +0.20mg/dlBuBc 3.5mg/dl Bu/0.8 mg/dl +0.25mg/dl +0.24mg/dlBuBc 7 mg/dl Bu/14.2mg/dl +0.38mg/dl +0.25mg/dlBuBc 5mg/dl Bc/0mg/dl +0.25 mg/dl +0.15mg/dlBuBc 3.5mg/dl Bc/2.8 mg/dl +0.25mg/dl +0.2 3mg/dl SGOT/AST (test code = 28 UNITS/L 14-36 N AST) SGPT/ALT (test code = 18 UNITS/L <35 ALT) ALKALINE PHOSPHATASE 78 UNITS/L 38-126 N (test code = ALKP) [id number] 20:53:00 Test Item Value Reference Range Interpretation Comments TROPONIN-I (test code = TROPI) NG/ML 0.0-0.045 COMPREHENSIVE METABOLIC [id number] 20:52:00 Test Item Value Reference Range Interpretation [...] Product TBil, BuBc: ======= ======= ======A ssay Eltrombopa g Analyte/ Max Ob served Avg. Bias Concentration Concentration Concentration== ======= ======= ======= =======TBil 7mg /dl TBil/ 1.2mg/dl +0.23mg.dl +0.20mg/dlBuBc 3.5mg/dl Bu/0.8 mg/dl +0.25mg/dl +0.24mg/dlBuBc 7 mg/dl Bu/14.2mg/dl +0.38mg/dl +0.25mg/dlBuBc 5mg/dl Bc/0mg/dl +0.25 mg/dl +0.15mg/dlBuBc 3.5mg/dl Bc/2.8 mg/dl +0.25mg/dl +0.2 3mg/dl SGOT/AST (test code = 28 UNITS/L 14-36 N AST) SGPT/ALT (test code = 18 UNITS/L <35 ALT) ALKALINE PHOSPHATASE 78 UNITS/L 38-126 N (test code = ALKP) [id number] 20:52:00 Test Item Value Reference Range Interpretation Comments TROPONIN-I (test code = TROPI) NG/ML 0.0-0.045 COMPREHENSIVE METABOLIC [id number] 20:51:00 Test Item Value Reference Range Interpretation [...] Product TBil, BuBc: ======= ======= ======A ssay Eltrombopa g Analyte/ Max Ob served Avg. Bias Concentration Concentration Concentration== ======= ======= ======= =======TBil 7mg /dl TBil/ 1.2mg/dl +0.23mg.dl +0.20mg/dlBuBc 3.5mg/dl Bu/0.8 mg/dl +0.25mg/dl +0.24mg/dlBuBc 7 mg/dl Bu/14.2mg/dl +0.38mg/dl +0.25mg/dlBuBc 5mg/dl Bc/0mg/dl +0.25 mg/dl +0.15mg/dlBuBc 3.5mg/dl Bc/2.8 mg/dl +0.25mg/dl +0.2 3mg/dl SGOT/AST (test code = UNITS/L 15-37 AST) SGPT/ALT (test code = UNITS/L <35 ALT) ALKALINE PHOSPHATASE UNITS/L 38-126 (test code = ALKP) [id number] 20:51:00 Test Item Value Reference Range Interpretation Comments TROPONIN-I (test code = TROPI) NG/ML 0.0-0.045 COMPREHENSIVE METABOLIC [id number] 20:49:00 Test Item Value Reference Range Interpretation [...] PHOSPHATASE (test code = UNITS/L 38-126 ALKP) [id number] 20:49:00 Test Item Value Reference Range Interpretation Comments TROPONIN-I (test code = TROPI) NG/ML 0.0-0.045 CBC W/AUTO [id number] 20:40:00 Test Item Value Reference Range Interpretation [...] 0.00 K/mm3 0.0-0.1 N NRBC#) ARTERIAL BLOOD [id number] 10:23:00 Test Item Value Reference Range Interpretation [...] FIO2 (test code = COHBGFFIO2) 21 % PaO2/[id number] 10:23:00 Test Item Value Reference Range Interpretation Comments PaO2/FiO2 (test code = RDQ2CNJ6) mm/Hg ARTERIAL BLOOD [id number] 10:23:00 Test Item Value Reference Range Interpretation [...] FIO2 (test code = COHBGFFIO2) 21 % PaO2/[id number] 10:23:00 Test Item Value Reference Range Interpretation Comments PaO2/FiO2 (test code = [id number]) 380.00 mm/Hg VENOUS BLOOD [id number] 10:23:00 Test Item Value Reference Range Interpretation [...] (test code LINE = SITEV) BASIC METABOLIC [id number] 08:33:00 Test Item Value Reference Range Interpretation [...] LIPOPROTEIN LDL (test 95 MG/DL 0-99 N OPTIM AL.........<100 code = LDL) mg/dLNEAR OPTIMAL/ABOVE OPTIMAL........ .100-12 9 mg/dL BORDERL INE HIGH.........13 0-159 mg/dL HIGH.........16 0-189 mg/dL VERY HIGH.........>/ = 190 mg/dL [id number] 08:33:00 Test Item Value Reference Range Interpretation Comments MAGNESIUM (test code = MAG) 2.1 MG/DL 1.6-2.3 N BASIC METABOLIC [id number] 07:01:00 Test Item Value Reference Range Interpretation [...] LDL (test MG/DL 0-99 code = LDL) [id number] 07:01:00 Test Item Value Reference Range Interpretation Comments MAGNESIUM (test code = MAG) 2.1 MG/DL 1.6-2.3 N PROTHROMBIN [id number] 06:54:00 Test Item Value Reference Range Interpretation Comments PROTHROMBIN TIME 14.2 SECONDS 9.4-12.5 H PATIENT (test code = PTP) INTERNATIONAL NORMAL 1.3 The INR is to be RATIO (test code = used only for INR) monitoring oral anticoagulantth erap y. INDICATION I NR VALUE ---- ---- ---- -------1. Prophylaxis, de ep venous thrombos is, including high risk surgery. 2.0 - 3.0 2. Prophylaxis, deep venous thrombosis, hip surgery, treatm ent for deep venous thrombosis or pulmonary prevention of systemic emboli sm in patients wit h valvular heart disease, atrial fibrillation, tissue heart va lve, or acute myocar dial infarction. 2.0 - 3.0 3. Calender Roll Operator al prosthesis hear t valves, recurre nt systemic emboli sm. 3.0 - 4.5 PTT [id number] 06:54:00 Test Item Value Reference Range Interpretation Comments PTT ACTIVATED (test code = APTT) 30.7 SECONDS 25.1-36.5 N CBC W/AUTO [id number] 06:43:00 Test Item Value Reference Range Interpretation [...] 0.0-0.1 N NRBC#) COVID 19 Asymptomatic IH [id number] 05:46:00 Test Item Value Reference Range Interpretation Comments COVID 19 NEGATIVE Negative "Negative resul ts from Asymptomatic IH AG patients with symptom (test code = onset beyondfiv e days, COVNONPUIAG) should be treat ed as presumptive, andconfirmation with a molecular assay [...]
[2021-12-01] MEDS ORDERED: NA CHLORIDE 0.9% 500 ML ONE (09:58)
--- NOTE | 2021-12-01 09:59 | RAD REPORT ---
EXAM DESCRIPTION: CT - Head Brain Wo Cont - 12/01/2021 9:41 am CLINICAL HISTORY: dizziness, nausea Headache, drowsiness COMPARISON: Head Brain Wo Cont dated 06/10/2020; Head Brain Wo Cont dated 12/02/2015 TECHNIQUE: All CT scans are performed using dose optimization technique as appropriate and may inclu de automated exposure control or mA/KV adjustment according to patient size. FINDINGS: No intracranial hemorrhage, hydrocephalus or extra-axial fluid collection.Mild brain atrop hy.No areas of brain edema or evidence of midline shift. The paranasal sinuses and mastoids are clear. The calvarium is intact. IMPRESSION: No acute intracranial abnormality.
[2021-12-01 10:07] LABS: Absolute Lymphocytes (CBC) 1.4 K/uL (0.7-4.9); Hematocrit 33.7 % (36.0-45.0); Lymphocytes % 16.7 % (15.3-44.8); MCV 97.5 fL (80-100); MPV 9.3 fL (7.6-11.3); RBC Red Blood Cell Count 3.46 M/uL (3.86-4.86)
--- NOTE | 2021-12-01 10:12 | RAD REPORT ---
EXAM DESCRIPTION: CT - Abdomen Pelvis Wo Contrast - 12/01/2021 9:41 am CLINICAL HISTORY: Abdominal pain. abd pain, dizziness COMPARISON: Abdomen Pelvis Wo Contrast dated 04/21/2021; Abdomen Pelvis Wo Contrast dated ; Stone Protocol dated 04/22/2020 TECHNIQUE: CT imaging of the abdomen and pelvis was performed without contrast. Solid organ, bowel a nd vascular assessment is limited due to lack of IV and oral contrast. All CT scans are performed using dose optimization technique as appropriate and may include automated exposure control or mA/KV adjustment according to patient size. FINDINGS: The lower lung yu are clear.Cholecystectomy clips. The liver, spleen, pancreas, adrenal glands and kidneys are within normal limits for a limited non-co ntrast examination. No bowel obstruction, free air, free fluid or abscess. Postsurgical changes are present involving the bowel in the left lower quadrant. Rounded adjacent 3 cm fluid density structure is seen near the sit e of surgery, nonspecific but unchanged since prior study. Mild sigmoid diverticulosis in the left lo wer quadrant is seen with mild surrounding inflammation. Moderate rectosigmoid thickening. Aortoiliac atherosclerosis. Mild degenerative levoscoliosis of the lumbar spine. IMPRESSION: Moderate wall thickening of the rectosigmoid colon may represent a colitis. Subtle inflammation in the left lower quadrant surrounding several sigmoid diverticula. This may be a rtifactual or related to early diverticulitis. Advise correlation with clinical left lower quadrant s ymptomology. A limited non-contrast examination was performed as detailed.
[2021-12-01 10:16] LABS: Protime INR 1.65
[2021-12-01 10:21] LABS: SARS-CoV-2 Antigen Rapid Res Negative (Negative)
[2021-12-01 10:29] LABS: Potassium 4.1 mmol/L (3.5-5.1)
[2021-12-01 10:30] LABS: Albumin 3.5 g/dL (3.4-5.0); Bilirubin Direct 0.2 mg/dL (0-0.2); Bilirubin Total 0.8 mg/dL (0.2-1.0); Magnesium 1.8 mg/dL (1.8-2.4)
[2021-12-01] MEDS ORDERED: CIPROFLOXACIN 400mg IV 400 MG/200 ML BAG IV ONE (10:53)
[2021-12-01] MEDS ORDERED: METRONIDAZOLE 500mg IVPB 500 MG/100 ML BAG IV ONE (10:53)
--- NOTE | 2021-12-01 11:51 | ER ---
Nurse's Notes [facility] Name: Claudette Sherman Age: 81 yrs Sex: Female : 1940 Arrival Date: 12/01/2021 Time: 08:44 Bed 8 Private MD: Jorge Maza V Diagnosis: Left sided colitis without complications;Dehydration;Nausea Presentation: 12/01 09:07 Chief complaint: Spouse and/or significant other states: dizziness, nausea, weakness vg1 and unsteady gait. Pt stated ABD pain and CP with SOB that began this morning. Coronavirus screen: Vaccine status: Patient reports receiving the 2nd dose of the covid vaccine. Client denies travel out of the [place] in the last 14 days. Ebola Screen: Patient negative for fever greater than or equal to 101.5 degrees Fahrenheit, and additional compatible Ebola Virus Disease symptoms Patient denies exposure to infectious person. Initial Sepsis Screen: Does the patient meet any 2 criteria? No. Patient's initial sepsis screen is negative. Does the patient have a suspected source of infection? No. Patient's initial sepsis screen is negative. Risk Assessment: Do you want to hurt yourself or someone else? Patient reports no desire to harm self or others. Onset of symptoms was December 01, 2021. 09:07 Method Of Arrival: Wheelchair vg1 09:07 Acuity: LIZ 2 vg1 Triage Assessment: 09:09 General: Appears comfortable, Behavior is calm, cooperative. Pain: Complains of pain in vg1 chest and abdomen. Cardiovascular: Patient's skin is warm and dry. Respiratory: Reports shortness of breath Airway is patent Respiratory effort is even, unlabored. Historical: - Allergies: 09:09 Codeine; vg1 09:09 Morphine; vg1 - Home Meds: 09:09 aspirin 81 mg Oral TbEC 1 tab once daily [Active]; atorvastatin 20 mg Oral tab 1 tab vg1 once daily [Active]; levothyroxine 125 mcg tab [Active]; warfarin 1 mg Oral tab once daily [Active]; metoprolol tartrate 25 mg Oral tab 1 tab once daily [Active]; amlodipine 2.5 mg tab 1 tab twice a day [Active]; Magnesium [Active]; - PMHx: 09:09 Anemia; High Cholesterol; Hypertension; Hypothyroidism; open wound on middle abdomen; vg1 sacrum wound; Angina pectoris; - Immunization history:: Client reports receiving the 2nd dose of the Covid vaccine. - Social history:: Smoking status: Patient denies any tobacco usage or history of. - Family history:: not pertinent. - Hospitalizations: : No recent hospitalization is reported. Screenin:30 Abuse screen: Denies threats or abuse. Denies injuries from another. Nutritional bp screening: No deficits noted. Tuberculosis screening: No symptoms or risk factors identified. Fall Risk None identified. Assessment: 09:10 General: SEE TRIAGE NOTE. bp 10:03 Reassessment: PT RETURNED FROM RAD. bp 11:51 Reassessment: DC ON HOLD FOR ABX COMPLETION. bp 12:16 Reassessment: PT DC HOME VIA WC WITH FAMILY. bp Vital Signs: 09:07 BP 190 / 66; Pulse 70; Resp 15; Temp 98.7(O); Pulse Ox 99% on R/A; Weight 53.52 kg; vg1 Height 4 ft. 10 in. (147.32 cm); Pain 8/10; 10:03 BP 179 / 65; Pulse 72; Resp 21; Pulse Ox 100% ; bp 11:41 BP 159 / 86; Pulse 72; Resp 16; Pulse Ox 100% ; bp 12:16 BP 182 / 81; Pulse 77; Resp 16; Pulse Ox 100% ; bp 09:07 Body Mass Index 24.66 (53.52 kg, 147.32 cm) vg1 ED Course: 08:44 Patient arrived in ED. am2 08:45 Jorge Maza MD is Private Physician. am2 08:50 Rell Dee MD is Attending Physician. rn 08:56 Saul Montiel RN is Primary Nurse. bp 09:09 Triage completed. vg1 09:09 Arm band placed on. vg1 09:30 Patient has correct armband on for positive identification. Bed in low position. Call bp light in reach. Side rails up X2. Adult w/ patient. 09:35 Inserted saline lock: 22 gauge in right hand, using aseptic technique. Blood collected. bp 09:42 CT Head Brain wo Cont In Process Unspecified. EDMS 09:42 CT Abd/Pelvis - Without Contrast In Process Unspecified. EDMS 11:01 XRAY Chest (1 view) In Process Unspecified. EDMS 11:50 Jorge Maza MD is Referral Physician. rn 12:16 No provider procedures requiring assistance completed. IV discontinued, intact, bp bleeding controlled, No redness/swelling at site. Pressure dressing applied. Administered Medications: 09:30 Drug: NS 0.9% 500 ml Route: IV; Rate: bolus; Site: right hand; bp 11:52 Follow up: IV Status: Completed infusion; IV Intake: 500ml bp 11:00 Drug: Flagyl (metroNIDAZOLE) 500 mg Volume: 100 ml; Route: IVPB; Rate: 200 ml/hr; bp Infused Over: 30 mins; Site: right hand; 11:52 Follow up: IV Status: Completed infusion; IV Intake: 100ml bp 11:41 Drug: Cipro (ciprofloxacin) 400 mg Volume: 200 ml; Route: IVPB; Infused Over: 60 mins; bp Site: right hand; Medication: 12:16 VIS not applicable for this client. bp Intake: 11:52 IV: 100ml; Total: 100ml. bp 11:52 IV: 500ml; Total: 600ml. bp Outcome: 11:50 Discharge ordered by MD. rn 12:16 Discharged to home via wheelchair, with family. bp 12:16 Condition: stable 12:16 Discharge instructions given to patient, family, Instructed on discharge instructions, follow up and referral plans. medication usage, Demonstrated understanding of instructions, follow-up care, medications, Prescriptions given X 3. 12:18 Patient left the ED. bp Signatures: Dispatcher [employer] EDMS Rell Dee MD MD rn Moreno, Amanda am2 Peltier, Brian RN RN Izzy Salvador RN RN vg1
--- NOTE | 2021-12-01 11:51 | EDPHYS ---
Physician Documentation [facility] Name: Claudette Sherman Age: 81 yrs Sex: Female : 1940 Arrival Date: 12/01/2021 Time: 08:44 Bed 8 Private MD: Jorge Maza V ED Physician Rell Dee HPI: 12/01 09:08 This 81 yrs old Female presents to ER via Unassigned with complaints of rn General Weakness, Dizziness. 09:08 The patient presents with dizziness, generalized weakness, lightheadedness, feeling off rn balance. Onset: The symptoms/episode began/occurred this morning. Context: occurred at home, occurred while the patient was at rest. Modifying factors: The symptoms are alleviated by lying down, the symptoms are aggravated by standing up, changing position. Associated signs and symptoms: Pertinent positives: abdominal pain, nausea, shortness of breath, Pertinent negatives: chest pain, syncope. Severity of symptoms: At their worst the symptoms were moderate in the emergency department the symptoms have improved. The patient has not experienced similar symptoms in the past. The patient has not recently seen a physician. Pt reports woke up today already feeling dizziness, unsteady, required assistance when walking today. No syncope or head injury. + hx of chronic kidney disease and anemia. No vomiting/diarrhea. No chest pain. REports mild sob, dizziness, weakness, nausea, abd pain. No focal weakness/numbness/speech problem/vision problem.. Historical: - Allergies: 09:09 Codeine; vg1 09:09 Morphine; vg1 - Home Meds: 09:09 aspirin 81 mg Oral TbEC 1 tab once daily [Active]; atorvastatin 20 mg Oral tab 1 tab vg1 once daily [Active]; levothyroxine 125 mcg tab [Active]; warfarin 1 mg Oral tab once daily [Active]; metoprolol tartrate 25 mg Oral tab 1 tab once daily [Active]; amlodipine 2.5 mg tab 1 tab twice a day [Active]; Magnesium [Active]; - PMHx: 09:09 Anemia; High Cholesterol; Hypertension; Hypothyroidism; open wound on middle abdomen; vg1 sacrum wound; Angina pectoris; - Immunization history:: Client reports receiving the 2nd dose of the Covid vaccine. - Social history:: Smoking status: Patient denies any tobacco usage or history of. - Family history:: not pertinent. - Hospitalizations: : No recent hospitalization is reported. ROS: 09:08 Constitutional: Negative for fever, chills, and weight loss, Eyes: Negative for injury, rn pain, redness, and discharge, Neck: Negative for injury, pain, and swelling, Cardiovascular: Negative for chest pain, palpitations, and edema, Respiratory: Negative for cough, wheezing, and pleuritic chest pain, Abdomen/GI: + abd pain and nausea, neg for vomiting/diarrhea Back: Negative for injury and pain, : Negative for injury, bleeding, discharge, and swelling, MS/Extremity: Negative for injury and deformity, Skin: Negative for injury, rash, and discoloration, Neuro: Negative for headache, numbness, tingling, and seizure. Exam: 09:08 Constitutional: This is a well developed, well nourished patient who is awake, alert, rn and in no acute distress. Head/Face: Normocephalic, atraumatic. Eyes: Periorbital areas with no swelling, redness, or edema. Cardiovascular: Regular rate and rhythm. No pulse deficits. Respiratory: No increased work of breathing, no retractions or nasal flaring. Abdomen/GI: soft, no focal tenderness, + mild tenderness mid abdomen Skin: Warm, dry MS/ Extremity: Pulses equal, no cyanosis. Neuro: Awake and alert, GCS 15 09:16 ECG was reviewed by the Attending Physician. rn Vital Signs: 09:07 BP 190 / 66; Pulse 70; Resp 15; Temp 98.7(O); Pulse Ox 99% on R/A; Weight 53.52 kg; vg1 Height 4 ft. 10 in. (147.32 cm); Pain 8/10; 10:03 BP 179 / 65; Pulse 72; Resp 21; Pulse Ox 100% ; bp 11:41 BP 159 / 86; Pulse 72; Resp 16; Pulse Ox 100% ; bp 12:16 BP 182 / 81; Pulse 77; Resp 16; Pulse Ox 100% ; bp 09:07 Body Mass Index 24.66 (53.52 kg, 147.32 cm) vg1 MDM: 08:50 Patient medically screened. rn 11:46 Differential diagnosis: generalized weakness, colitis, viral syndrome, dehydration, rn UTI, enteritis. Data reviewed: vital signs, nurses notes, lab test result(s), radiologic studies, CT scan, and as a result, I will discharge patient. Counseling: I had a detailed discussion with the patient and/or guardian regarding: the historical points, exam findings, and any diagnostic results supporting the discharge/admit diagnosis, lab results, radiology results, the need for outpatient follow up, to return to the emergency department if symptoms worsen or persist or if there are any questions or concerns that arise at home. Response to treatment: the patient's symptoms have mildly improved after treatment, and as a result, I will discharge patient. Special discussion: Based on the patient's Hx, exam, and Dx evaluation, there is no indication for emergent surgery or inpatient Tx. It is understood by the patient/guardian that if the Sx's persist or worsen they need to return immediately for re-evaluation. I discussed with the patient/guardian in detail that at this point there is no indication for admission to the hospital. It is understood, however, that if the symptoms persist or worsen the patient needs to return immediately for re-evaluation. ED course: Offered admission for colitis/diverticulitis, family does not want her admitted, stating has steps backwards when admitted and has been making big progress lately. WIll dc home with abx and return precautions.. 12/01 09:07 Order name: Basic Metabolic Panel; Complete Time: :34 rn 12/01 09:07 Order name: CBC with Diff; Complete Time: 10:34 rn 12/01 09:07 Order name: Hepatic Function; Complete Time: 10:34 rn 12/01 09:07 Order name: Magnesium; Complete Time: 10:34 12/01 09:07 Order name: Protime (+inr); Complete Time: 10:34 rn 12/01 09:07 Order name: Ptt, Activated; Complete Time: 10:34 rn 12/01 09:07 Order name: CT Head Brain wo Cont; Complete Time: 10:34 rn 12/01 09:07 Order name: CT Abd/Pelvis - Without Contrast; Complete Time: 10:34 rn 12/01 09:07 Order name: BNP; Complete Time: 10:34 rn 12/01 09:07 Order name: SARS RAPID; Complete Time: 10:34 12/01 09:07 Order name: XRAY Chest (1 view) rn 12/01 09:16 Order name: Flu; Complete Time: 10:34 rn 12/01 09:07 Order name: EKG; Complete Time: : rn 12/01 09:07 Order name: Cardiac monitoring; Complete Time: rn 12/01 09:07 Order name: EKG - Nurse/Tech; Complete Time: : rn 12/01 09:07 Order name: IV Saline Lock; Complete Time: : rn 12/01 09:07 Order name: Labs collected and sent; Complete Time: rn 12/01 09:07 Order name: O2 Per Protocol; Complete Time: rn 12/01 09:07 Order name: O2 Sat Monitoring; Complete Time: rn EC:16 Rate is 67 beats/min. Rhythm is regular. Left axis deviation noted. QRS is positive in rn lead I and negative in lead aVF. NV interval is normal. QRS interval is prolonged at 152 msec. QT interval is normal. No Q waves. T waves are Normal. No ST changes noted. Clinical impression: NSR w/ Non-specific ST/T Changes. Interpreted by me. Reviewed by me. Administered Medications: 09:30 Drug: NS 0.9% 500 ml Route: IV; Rate: bolus; Site: right hand; bp 11:52 Follow up: IV Status: Completed infusion; IV Intake: 500ml bp 11:00 Drug: Flagyl (metroNIDAZOLE) 500 mg Volume: 100 ml; Route: IVPB; Rate: 200 ml/hr; bp Infused Over: 30 mins; Site: right hand; 11:52 Follow up: IV Status: Completed infusion; IV Intake: 100ml bp 11:41 Drug: Cipro (ciprofloxacin) 400 mg Volume: 200 ml; Route: IVPB; Infused Over: 60 mins; bp Site: right hand; Disposition Summary: 12/01/21 11:50 Discharge Ordered Location: Home rn Problem: new rn Symptoms: have improved rn Condition: Stable rn Diagnosis - Left sided colitis without complications rn - Dehydration rn - Nausea rn Followup: rn - With: Jorge Maza MD - When: As needed - Reason: Recheck today's complaints, Re-evaluation by your physician Discharge Instructions: - Discharge Summary Sheet rn - Dehydration, Adult rn - Colitis rn Forms: - Medication Reconciliation Form rn - Thank You Letter rn - Antibiotic single corner cutter - Prescription Opioid Use rn Prescriptions: - ondansetron 4 mg Oral tablet,disintegrating - take 1 tablet by ORAL route every 6-8 hours As needed; 15 tablet; Refills: 0, rn Product Selection Permitted - Flagyl 500 mg Oral Tablet - take 1 tablet by ORAL route every 8 hours for 10 days; 30 tablet; Refills: 0, rn Product Selection Permitted - Cipro 500 mg Oral Tablet - take 1 tablet by ORAL route every 12 hours for 10 days; 20 tablet; Refills: 0, rn Product Selection Permitted Signatures: Dispatcher [employer] Rell Oquendo MD MD rn Peltier, Brian RN RN Izzy Salvador RN RN vg1
--- NOTE | 2021-12-01 12:18 | RAD REPORT ---
EXAM DESCRIPTION: RAD - Chest Single View - 12/01/2021 10:59 am CLINICAL HISTORY: SOB Chest pain. COMPARISON: Chest Pa And Lat (2 Views) dated 05/14/2021; Chest Single View dated 04/21/2021; Chest Sing le View dated 04/22/2020; Chest Single View dated 02/22/2020 FINDINGS: Portable technique limits examination quality. The lungs are grossly clear. Changes of prior cardiac surgery noted. No displaced fractures.Sternotom y wires noted. IMPRESSION: No acute intrathoracic process suspected.
[2021-12-01 12:27] VITALS: TEMP 98.7
[2021-12-01 12:32] VITALS: O2SAT 100
[2021-12-01 12:44] VITALS: BP 182/81
--- NOTE | 2021-12-02 14:00 | EKG ---
Test Date: 2021-12-01 Test Time: 09:02:30 Storeperson: BP MEASUREMENT RESULTS: Intervals: Rate: 67 TX: 130 QRSD: 152 QT: 488 QTc: 515 [place]: P: 62 TX: 130 QRS: -41 T: 87 INTERPRETIVE STATEMENTS: Normal sinus rhythm Possible Left atrial enlargement Left axis deviation Left bundle branch block Abnormal ECG Compared to ECG 06/10/2020 21:53:28 No significant changes Electronically Signed On 12-02-21 13:59:37 CDT by Vargas Ludwig
== END 2021-12-01 12:18 | disposition home or self-care (01) ==
LOC: ER 08:42
DX: K51.50 Left sided colitis without complications (principal); E86.0 Dehydration; I10 Essential (primary) hypertension; E78.00 Pure hypercholesterolemia, unspecified; Z20.822 Contact with and (suspected) exposure to COVID-19; Z79.01 Long term (current) use of anticoagulants; Z79.82 Long term (current) use of aspirin; Z88.5 Allergy status to narcotic agent
CPT/HCPCS: 96365; 96361; 93005; 85025; 80048; 36415; 83735; 85610; 80076; 85730; 83880; 87804 ×2; 70450; 74176; 71045; 96375; 99284; 87811; J7040; J0744

== ENCOUNTER 2022-03-17 15:38 | Inpatient (IN) | payer OTHER, MEDICARE ==
--- OUTSIDE RECORDS SUMMARY | 2022-03-17 15:59 | XMS REPORT | Continuity of Care Document ---
:1940 Author Organization [facility] t Address [address] [place] [address] Care Team Providers Name Role Phone BORIS FREIRE Primary Care Physician Unavailable Georgina Smith Attending Clinician Unavailable KARTHIK GALLEGO Attending Clinician Unavailable Marisa CORREIA, Donna Dwyer Attending Clinician Maria Luisa CORREIA, Aba Downs Attending Clinician [phone] Karthik Gallego MD Attending Clinician Elieser Marie MD Attending Clinician Haydee Campbell MD Attending Clinician Luigi Allred MD Attending Clinician Nurse, [facility] Attending Clinician Unavailable , Davon Wylie Attending Clinician Unavailable Camren Barkley RN Attending Clinician Unavailable CHRISSY STACY Attending Clinician Unavailable Only, Davon Wylie Test Attending Clinician Unavailable Chrissy Stacy MD Attending Clinician Arvind, Tevin Attending Clinician Unavailable Mireille Hunter Attending Clinician Unavailable LEILANI SANCHEZ Attending Clinician Unavailable Doctor Unassigned, [place] Attending Clinician Unavailable Lisa Ragland RN Attending Clinician Unavailable BASIL MALONEY Attending Clinician Unavailable MEGHAN TUTTLE Attending Clinician Unavailable Rashid Son Attending Clinician Unavailable Mike Anguiano Attending Clinician Unavailable SANTOS GAYTAN Attending Clinician Unavailable Joe Higgins Admitting Clinician Unavailable DONNA CUNNINGHAM Admitting Clinician Unavailable Arvind, Spencer Admitting Clinician Unavailable UNDEFINED Admitting Clinician Unavailable Ramu Sutherland Admitting Clinician Unavailable NIVIA TERAN Admitting Clinician Unavailable NOHELIA BELL Admitting Clinician Unavailable Rashid Son Admitting Clinician Unavailable Payers Payer Name Policy Type Policy Number Effective Date Expiration Date S ourrojelio MEDICARE PART A \\T\\ [id number] 2004 B 00:00:00 [facility] [id number] 2008 MEDICARE SUPPLEMENT 00:00:00 MEDICARE A B [id number] 2004 00:00:00 Problems Condition Condition Condition Status [...] Added automatic ally from request for surgery 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 00:00: [place] protein-ca protein-ca 00 Me dical ryanne ryanne Branch malnutriti malnutriti on on HEATHER (acute HEATHER (acute Disease Active U nivers kidney kidney 1-04 ity of injury) injury) 00:00: [place] [address] Medical Branch Wound Wound Disease Active Univers infection infection 1-04 ity of 00:00: [place] [address] Medical Branch Urinary Urinary Disease Active 2019-02 Univers tract tract 2-27 [place] site not 00 Medica l specified specified Bran ch Acquired Acquired Disease Active Unive rs hypothyroi hypothyroi 1-05 it y of dism dism 00:00: [address] Branch High High Disease Active Univers cholestero cholestero it y of l l [facility] Diet-contr Diet-contr Disease Active U nivers olled olled ity of diabetes diabetes [place] mellitus mellitus Medica l Branch HTN HTN Disease Active Overview: Univer s (hypertens (hypertens Formattin ity of ion), ion), g of this [place] benign benign note Medical might be Branch different from the original. follows with Dr. Anguiano. 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 ity of [facility] Other Other Disease Active Univers specified specified it[place] of [place]ro[place] dism dism Medical Branch Allergies, Adverse Reactions, Alerts Allergy Allergy Status Severity Reaction(s) Onset Inactive Treating Comm ents Source Name Type Date Date Clinician CODEINE [facility] MORPHINE Allergy [facility] Center Codeine Propensi Active [facility] adverse 00:00: Medical reaction 00 Center s Morphine Propensi Active [facility] adverse 00:00: Medical reaction 00 Center s morphine DA Active [facility] 00:[facility]: [address] codeine DA Active SV 2020-0 [facility] 1-17 00:00: [address] morphine DA Active SV HALLUCINATIO 2020-0 HC A NS 1-17 00:00: [address] codeine DA Active SV HALLUCINATIO 2020-0 [facility] NS 1-17 00:00: [address] MORPHINE DRUG Active Hallucinates 2019-1 Un jorge SULFATE INGREDI 2-28 ity of 00:00: [address] Morphine Propensi Active Hallucinatio 2019-1 CANNOT Univers Sulfate ty to ns 2-28 TAKE ANY ity of adverse 00:00: TYPE OF [place] reaction 00 MORPHINE Medica l s Branch No Known DA Active U 2020-1 [facility] Allergie [facility] s 00:00: [address] No Known DA Active U 2020-1 [facility] Allergie 1-11 [facility] s 00:00: [address] No Known DA Active U 2020-1 [facility] Allergie 0-29 [facility] s 00:00: [address] No Known DA Active U 2020-1 [facility] Allergie 0-29 [facility] s 00:00: [address] No Known DA Active U 2020-1 [facility] Allergie 0-16 [facility] s 00:00: [address] No Known DA Active U 2020-1 [facility] Allergie 0-16 [facility] s 00:00: [address] NO KNOWN Drug Active Univers ALLERGIE Class ity of [facility] [place] Social History Social Habit Start Date Stop Date Quantity Comments Source Exposure to Not sure [facility] SARS-CoV-2 [facility] (event) Branch History SDOH [facility] [...] 5 University o f Financial 00:00:00 00:00:00 [place] [facility] History SDOH Food 2020-02-12 2020-02-12 1 Univers ity of Worry 00:00:00 00:00:00 [place] [facility] History SDOH Food 2020-02-12 2020-02-12 1 Univers ity of Scarcity 00:00:00 00:00:00 [place] [facility] History SDOH 2020-02-12 2020-02-12 2 University o f Transport Med 00:00:00 00:00:00 [place] Medic al Branch History SDOH 2020-02-12 2020-02-12 2 [place] o f Transport Non-Med 00:00:00 00:00:00 [facility] Sex Assigned At [address] [facility] Smoking Status Start Date Stop Date Source Never sm[facility] Medications Ordered Filled Start Stop Current Ordering Indication Dosage Frequency Signature Comments Components Source Medication Medication Date Date Medication? Clinician (SIG) Name Name aspirin 81 Yes 81mg QD Take [address] MG EC 3-19 by mouth [facility]ukes tablet 14:09: daily. Medical 02 Center atorvastati Yes 20mg QD Take 20 mg [...] MG 14:09: mouth Medical tablet 02 daily. [place] sodium Yes 1{tbl} QD Take [address] bicarbonate 3-19 tablet by James es 650 MG 14:09: mouth Medical tablet 02 daily. [place] losartan Yes 100mg QD Take [address] (COZAAR) 3-19 mg by [facility] 100 MG 14:09: mouth Medical tablet 02 daily. [place] amLODIPine Yes 2.5mg Q.5D Take 2.[address] (NORVASC) 3-19 mg by [facility] 2.5 MG 14:09: mouth 2 Medical tablet 02 (two) Center times daily. citric Yes Take by [facility] acid-potass 3-19 mouth 3 [facility]ukes ium citrate 14:09: (three) Med ical (POLYCITRA) 02 times Center 1,100-334 daily with mg/5 mL meals. solution potassium Yes Q.5D Take by CHI S t citrate 15 3-19 mouth 2 [facility]ukes mEq TbER 14:09: (two) Medical 02 times Center daily. aspirin 81 Yes 81mg QD Take [address] MG EC 3-19 by mouth [facility] tablet 14:09: daily. Medical 02 Center atorvastati Yes 20mg QD Take [address] n (LIPITOR) 3-19 by mouth Luke s 20 MG 14:09: daily. Medical tablet 02 [place] ferrous Yes 325mg Take 325 CHI S [...] l tablet 02 times Center daily. metoprolol 0 Yes QD Take by [facility] succinate [...] MG 14:09: mouth Medical tablet 02 daily. [place] sodium Yes 1{tbl} QD Take [address] bicarbonate 3-19 tablet by James es 650 MG 14:09: mouth Medical tablet 02 daily. [place] losartan Yes 100mg QD Take [address] (COZAAR) 3-19 mg by [facility] 100 MG 14:09: mouth Medical tablet 02 daily. [place] amLODIPine Yes 2.5mg Q.5D Take 2.[address] (NORVASC) 3-19 mg by [facility]ukes 2.5 MG 14:09: mouth 2 Medical tablet 02 (two) Center times daily. citric Yes Take by [facility] acid-potass 3-19 mouth 3 [facility] ium citrate 14:09: (three) Med ical (POLYCITRA) 02 times Center 1,100-334 daily with mg/5 mL meals. solution potassium Yes Q.5D Take by [facility]I [facility] t citrate 15 -19 mouth 2 [facility]ukes mEq TbER 14:09: (two) Medical 02 times Center daily. warfarin 2021- No 1mg QD Take [address] [address] (COUMADIN, 04-26-18 by mouth Luke s JANTOVEN) 1 14:09: 00:00 daily. Med ical MG tablet 02 :00 [place] AMILoride 0 2021- No 5mg QD Take [address] (MIDAMOR) 5 04-26-18 by mouth James es MG tablet 14:09: 00:00 daily. Medic al 02 :00 Center warfarin 2021-2021- No 1mg QD Take [address] (COUMADIN, 3-19 03-18 by mouth Luke s JANTOVEN) 1 14:09: 00:00 daily. Med ical MG tablet 02 :00 Center AMILoride 2021- No 5mg QD Take [address] (MIDAMOR) 5 3-19 -18 by mouth James es MG tablet 14:09: 00:00 daily. Medic al 02 :00 Center potassium 2021-2021- No 20meq Q.5D Take [address] chloride 3-19 03-14 mEq by Lukes (KLOR-CON-M 14:09: 00:00 mouth 2 Me dical ) 10 MEQ CR 02 :00 (two) Center tablet times daily. potassium 2021-2021- No 20meq Q.5D Take [address] chloride 3-19 03-14 mEq by [facility]ukes (KLOR-CON-M 14:09: 00:00 mouth 2 Me dical ) 10 MEQ CR 02 :00 (two) Center tablet times daily. warfarin 2021-2022- No 3mg QD Take [address] (COUMADIN, 3-18 03-18 tablets (3 Mary kes JANTOVEN) 1 00:00: 23:59 mg total) Medical MG tablet 00 :00 by mouth Center daily. warfarin 2021-2022- No 3mg QD Take [address] (COUMADIN, 3-18 03-18 tablets (3 Mary [facility]es JANTOVEN) 1 00:00: 23:59 mg total) Medical MG tablet 00 :00 by mouth Center daily. pantoprazol 2021- No 40mg QD Take [address] e 3-18 04-17 tablet (40 [facility]ukes (PROTONIX) 00:00: 23:59 mg total) M edical 40 MG 00 :00 by mouth Center tablet daily for 30 days. pantoprazol 2021-2021- No 40mg QD Take [address] e 3-18 04-17 tablet (40 [facility] (PROTONIX) 00:00: 23:59 mg total) M edical 40 MG 00 :00 by mouth Center tablet daily for 30 days. levoFLOXaci 2021-2021- No 250mg QD Take [address] n 3-18 03-21 tablet [facility]ukes (LEVAQUIN) 00:00: 23:59 (250 mg Med ical 250 MG 00 :00 total) by Center tablet mouth daily for 3 days. levoFLOXaci 0 2021- No 250mg QD Take [address] n 3-18 03-21 tablet [facility]ukes (LEVAQUIN) 00:00: 23:59 (250 mg Med ical 250 MG 00 :00 total) by Center tablet mouth daily for 3 days. ferrous 2020-0 Yes 325mg Take 325 Unive rs sulfate 325 1-13 mg by ity of mg (65 mg 19:14: mouth [place] iron) 07 every Medical tablet evening. Branch aspirin 81 0 Yes 81mg Take 81 mg U nivers mg chewable 1-13 by mouth ity of tablet 19:14: daily. Medical Branch mirtazapine 2020-0 Yes 15mg Take 15 mg Univers 15 mg 1-13 by mouth ity of tablet 19:14: at [place] [address] bedtime. Medical Branch metoprolol 0 Yes 25mg Take 25 mg U nivers tartrate 25 1-13 by mouth 2 it y of mg tablet 19:14: (two) [place] [address] times Medical daily. Branch atorvastati 0 Yes 40mg Take 40 mg Univers n 40 mg 1-13 by mouth ity of tablet 19:14: at [place] [address] bedtime. Medical Branch ferrous 2020-0 Yes 325mg Take 325 Unive rs sulfate 325 1-13 mg by ity of mg (65 mg 19:14: mouth [place] iron) 07 every Medical tablet evening. Branch aspirin 81 0 Yes 81mg Take 81 mg U nivers mg chewable 1-13 by mouth ity of tablet 19:14: daily. Medical Branch mirtazapine 2020-0 Yes 15mg Take 15 mg Univers 15 mg 1-13 by mouth ity of tablet 19:14: at [place] [address] bedtime. Medical Branch metoprolol 2020-0 Yes 25mg Take 25 mg U nivers tartrate 25 1-13 by mouth 2 it y of mg tablet 19:14: (two) [place] 07 times Medical daily. Branch atorvastati 0 Yes 40mg Take 40 mg Univers n 40 mg 1-13 by mouth ity of tablet 19:14: at [place] 07 bedtime. Medical Branch ferrous 2020-0 Yes 325mg Take 325 Unive rs sulfate 325 1-13 mg by ity of mg (65 mg 19:14: mouth [place] iron) 07 every Medical tablet evening. Branch aspirin 81 2020-0 Yes 81mg Take 81 mg U nivers mg chewable 1-13 by mouth ity of tablet 19:14: daily. Medical Branch mirtazapine 2020-0 Yes 15mg Take 15 mg Univers 15 mg 1-13 by mouth ity of tablet 19:14: at [place] 07 bedtime. Medical Branch metoprolol 0 Yes 25mg Take 25 mg U nivers tartrate 25 1-13 by mouth 2 it y of mg tablet 19:14: (two) 07 times Medical daily. Branch atorvastati 0 Yes 40mg Take 40 mg Univers n 40 mg 1-13 by mouth ity of tablet 19:14: at [place] bedtime. Medical Branch ferrous 0 Yes 325mg [...] mouth ity of tablet 19:14: at [place] 07 bedtime. Medical Branch metoprolol 0 Yes 25mg Take 25 mg U nivers tartrate 25 1-13 by mouth 2 it y of mg tablet 19:14: (two) [place] 07 times Medical daily. Branch atorvastati 0 Yes 40mg Take 40 mg Univers n 40 mg 1-13 by mouth ity of tablet 19:14: at [place] 07 bedtime. Medical Branch SERTraline 2016-02 Yes [id number] 50mg Take 1 U nivers 50 mg 0-10 tablet by ity of tablet 00:00: mouth [place] 00 daily. Medical Branch SERTraline 2016-02 Yes [id number] 50mg Take 1 U nivers 50 mg 0-10 tablet by ity of tablet 00:00: mouth [place] 00 daily. Medical Branch SERTraline 2016-02 Yes [id number] 50mg Take 1 U nivers 50 mg 0-10 tablet by ity of tablet 00:00: mouth 00 daily. [facility] SERTraline 2016-02 Yes [id number] 50mg Take 1 U nivers 50 mg 0-10 tablet by ity of tablet 00:00: mouth 00 daily. [facility] Immunizations Ordered Filled Immunization Date Status Comments [facility] e Immunization Name Name Influenza High Dose 2019-10-27 Completed Unive rsity of [place] 00:00:00 [facility] Influenza High Dose 2019-10-27 Completed Unive rsity of [place] 00:00:00 [facility] Influenza High Dose 2019-10-27 Completed Unive rsity of [place] 00:00:00 [facility] Influenza High Dose 2019-10-27 Completed Unive rsity of [place] 00:00:00 [facility] Pneumococcal 13 2015-11-19 Completed Universit y of Conjugate, PCV13 00:00:00 [facility] [place] [facility] dical (Prevnar 13) [place] Influenza High Dose 2015-11-19 Completed Unive rsity of 00:00:00 [facility] Pneumococcal 13 2015-11-19 Completed Universit y of Conjugate, PCV13 00:00:00 [facility] [place] [facility] dical (Prevnar 13) Branch Influenza High Dose 2015-11-19 Completed Unive rsity of 00:00:00 [facility] Pneumococcal 13 2015-11-19 Completed Universit y of Conjugate, PCV13 00:00:00 [place] Me dical (Prevnar 13) Branch Influenza High Dose 2015-11-19 Completed Unive rsity of 00:00:00 [facility] Pneumococcal 13 2015-11-19 Completed Universit y of Conjugate, PCV13 00:00:00 [place] Me dical (Prevnar 13) Branch Influenza High Dose 2015-11-19 Completed Unive rsity of 00:00:00 [facility] Vital Signs Vital Name Observation Time Observation Value Comments Source HEIGHT 2021-04-21 09:30:00 152.4 cm WEIGHT 2021-04-21 09:30:00 54.2 kg HEIGHT 2021-04-21 09:30:00 152.4 cm WEIGHT 2021-04-21 09:30:00 54.2 kg HEIGHT 2021-04-21 09:30:00 152.4 cm WEIGHT 2021-04-21 09:30:00 54.2 kg Systolic blood 2021-04-25 12:13:00 130 mm[Hg] [facility] Diastolic blood 2021-04-25 12:13:00 61 mm[Hg] [facility] Heart rate 2021-04-25 12:13:00 69 /min [facility] Body temperature 2021-04-25 12:13:00 36.56 Carmen [facility] Respiratory rate 2021-04-25 12:13:00 17 /min [facility] Oxygen saturation in 2021-04-25 12:13:00 98 /min [facility] Arterial blood by Medical Ce nter Pulse oximetry Body height 2021-04-21 09:30:00 152.4 cm [facility] Body weight 2021-04-21 09:30:00 54.2 kg [facility] BMI 2021-04-21 09:30:00 23.34 kg/m2 [facility] Procedures Procedure Date / Time Performing Source Performed Clinician BASIC METABOLIC PANEL 2021-04-25 Haydee Campbell [facility] 05:25:00 [facility] CBC W/PLT COUNT & AUTO DIFFERENTIAL 2021-04-25 Ada Campbell [facility] 05:25:00 [facility] PROTHROMBIN TIME/INR 2021-04-25 Ramesh Rodriguez [facility] 05:25:00 [facility] CBC W/PLT COUNT & AUTO DIFFERENTIAL 2021-04-25 Ada Campbell [facility] 05:25:00 [facility] POCT-GLUCOSE METER 2021-04-24 Preet Karthik [facility] 16:45:00 [facility] TISSUE EXAM 2021-04-24 Adrian, Haydee [facility] 13:59:00 [facility] ESOPHAGOGASTRODUODENOSCOPY 2021-04-24 [facility] 13:[facility]00 [facility] POCT-GLUCOSE METER 2021-04-[address] [facility] 11:20:00 [facility] POCT-GLUCOSE METER 2021-04-24 Yeni Gallegoia [facility] 09:02:00 [facility] ECG 12-LEAD 2021-04-24 Son, Marylou [facility] 08:21:01 Medical Center ECG 12-LEAD 2021-04-24 Son, Maryolu [facility] 08:21:01 Medical Center POCT-GLUCOSE METER 2021-04-24 Gallego, Karthik [facility] 08:09:00 Medical Center MAGNESIUM 2021-04-24 Son, Marylou [facility] 03:42:00 Medical Center PHOSPHORUS 2021-04-24 Son, Marylou [facility] 03:42:00 Medical Center PROTHROMBIN TIME/INR 2021-04-24 Son, [facility]ou [facility] 03:42:00 Medical Center BASIC METABOLIC PANEL 2021-04-24 Manji, Nasrullah [facility] 03:42:00 Medical Center CBC W/PLT COUNT & AUTO DIFFERENTIAL 2021-04-24 Manji, Nasru llah [facility] 03:42:00 Medical Center CBC W/PLT COUNT & AUTO DIFFERENTIAL 2021-04-[address] [facility] 03:42:00 [facility] PREPARE LEUKO-REDUCED RBC 2021-04-23 Son, Mraylou [facility] 23:54:00 [facility] POCT-GLUCOSE METER 2021-04-23 Gallego, Karthik [facility] 19:57:00 [facility] POCT-GLUCOSE METER 2021-04-23 Gallego, Karthik [facility] 15:58:00 [facility] POCT-GLUCOSE METER 2021-04-23 Gallego, Karthik [facility] 12:30:00 Medical Center POCT-GLUCOSE METER 2021-04-23 Gallego, Karthik [facility] 07:32:00 Medical Center MAGNESIUM 2021-04-23 Son, Marylou [facility] 03:59:00 Medical Center PHOSPHORUS 2021-04-23 Son, Marylou [facility] 03:59:00 Medical Center PROTHROMBIN TIME/INR 2021-04-23 Son, [facility] 03:59:00 Medical Center BASIC METABOLIC PANEL 2021-04-23 Manji, Nasrullah [facility] 03:59:00 Medical Center CBC W/PLT COUNT & AUTO DIFFERENTIAL 2021-04-23 Manji, Nasru llah [facility] 03:59:00 [facility] CBC W/PLT COUNT & AUTO DIFFERENTIAL 2021-04-[address] [facility] 03:59:00 [facility] POTASSIUM 2021-04-[address] [facility] 20:54:00 [facility] POCT-GLUCOSE METER 2021-04-22 Shieh, Aba [facility] 20:27:00 [facility] POCT-GLUCOSE METER 2021-04-22 Shieh, Aba [facility] 16:36:00 [facility] ELECTROLYTES 2021-04-[address] [facility] 12:59:00 [facility] POCT-GLUCOSE METER 2021-04-22 Shieh, Aba [facility] 11:18:00 [facility] TRANSFUSE LEUKO-REDUCED RED BLOOD 2021-04-22 Son, Marylou [facility] CELLS 10:34:00 [facility] ABORH, MANUAL 2021-04-22 Helekar, Rosario [facility] 09:34:00 [facility] TYPE AND SCREEN, AUTOMATED 2021-04-22 Son[facility] 08:23:00 [facility] T4, FREE 2021-04-[address] [facility] 08:20:00 [facility] POCT-GLUCOSE METER 2021-04-22 Shieh, Aba [facility] 08:05:00 [facility] POCT-GLUCOSE METER 2021-04-22 Shimaximus, Aba [facility] 05:36:00 [facility] MAGNESIUM 2021-04-22 Son, Marylou [facility] 03:37:00 [facility] PHOSPHORUS 2021-04-22 Son, Marylou [facility] 03:37:00 [facility] HEPATIC FUNCTION PANEL 2021-04-22 Son, Mary[facility] 03:37:00 [facility] PROTHROMBIN TIME/INR 2021-04-22 Son, [facility] 03:37:00 [facility] BASIC METABOLIC PANEL 2021-04-[address] [facility] 03:37:00 [facility] CBC W/PLT COUNT & AUTO DIFFERENTIAL 2021-04-[address] [facility] 03:37:00 [facility] CBC W/PLT COUNT & AUTO DIFFERENTIAL 2021-04-[address] [facility] 03:37:00 [facility] POCT-GLUCOSE METER 2021-04-[address] [facility] 23:12:00 [facility] BASIC METABOLIC PANEL 2021-04-21 Teresa, [facility] 21:31:00 [facility] BLOOD GAS, ARTERIAL 2021-04-21 Teresa, Brigani [facility] 21:00:00 [facility] BLOOD CULTURE 2021-04-[address] [facility] 17:51:00 [facility] BASIC METABOLIC PANEL 2021-04-[address] [facility] 17:07:00 [facility] T3, FREE 2021-04-21 Ty, Luigi Monica [facility] 17:07:00 [facility] TSH 2021-04-21 Ty, Luigi Monica [facility] 17:07:00 [facility] MAGNESIUM 2021-04-21 Teresa, Brigani [facility] 17:07:00 [facility] PHOSPHORUS 2021-04-21 Teresa, Brigani [facility] 17:07:00 [facility] ALBUMIN 2021-04-21 Teresa, Brigani [facility] 17:07:00 [facility] BLOOD GAS, ARTERIAL 2021-04-21 Teresa, Brigani [facility] 13:29:00 [facility] BLOOD CULTURE 2021-04-21 Banjo, Atinuke [facility] 13:13:00 [facility] SODIUM, RANDOM URINE 2021-04-21 Banjo, Atinuke [facility] 13:08:00 [facility] URINALYSIS W/ REFLEX URINE CULTURE 2021-04-21 Banerica, Atinuk e [facility] 13:08:00 [facility] POCT-GLUCOSE METER 2021-04-[address] [facility] 12:55:00 [facility] TROPONIN I 2021-04-21 Son, Marylou [facility] 12:50:00 Medical Center BASIC METABOLIC PANEL 2021-04-21 Shieh, Aba [facility] 12:50:00 [facility] CBC W/PLT COUNT & AUTO DIFFERENTIAL 2021-04-21 Maria LuisaCatrachito tonny [facility] 12:50:00 [facility] PROTHROMBIN TIME/INR 2021-04-21 Shieh, Aba [facility] 12:50:00 [facility] LACTIC ACID, VENOUS 2021-04-21 Shieh, Aba [facility] 12:50:00 [facility] MAGNESIUM 2021-04-21 Son, Marylou [facility] 12:50:00 [facility] PHOSPHORUS 2021-04-21 Son, Marylou [facility] 12:50:00 [facility] CBC W/PLT COUNT & AUTO DIFFERENTIAL 2021-04-21 Catrachito Glass [facility] 12:50:00 [facility] US GUIDE, VASCULAR ACCESS 2021-04-21 Junior, Hoiwe [facility] 11:04:50 [facility] INSERTION, CATHETER, TEMPORARY 2021-04-21 Ty, Luigi [facility] 11:00:00 [facility] 2D ECHO W/ DOPPLER (CW/PW/COLOR) 2021-04-21 Son, Marylou [facility] 10:04:34 [facility] LACTIC ACID, VENOUS 2021-04-21 Maria Luisa Aba [facility] 09:57:00 [facility] CBC W/PLT COUNT & AUTO DIFFERENTIAL 2021-04-21 Son, Stac y [facility] 09:53:00 [facility] PROTHROMBIN TIME/INR 2021-04-21 Son, Marylou [facility] 09:53:00 [facility] COMPREHENSIVE METABOLIC PANEL 2021-04-21 Son, [facility] 09:53:00 Medical Center MAGNESIUM 2021-04-21 Son, Marylou [facility] 09:53:00 Medical Center PHOSPHORUS 2021-04-21 Son, Marylou [facility] 09:53:00 [facility] TSH/FREE T4 IF INDICATED 2021-04-21 Son, Marylou [facility] 09:53:00 [facility] TROPONIN I 2021-04-21 Son, Marylou [facility] 09:53:00 [facility] LIPASE 2021-04-21 Son, Marylou [facility] 09:53:00 [facility] B-TYPE NATRIURETIC FACTOR (BNP) 2021-04-21 Son, Marylou [facility] 09:53:00 [facility] D-DIMER 2021-04-21 Son, Marylou [facility] 09:53:00 [facility] T4, FREE 2021-04-21 Son, Marylou [facility] 09:53:00 [facility] CBC W/PLT COUNT & AUTO DIFFERENTIAL 2021-04-[address] y [facility] [facility]00 [facility] POCT-GLUCOSE METER 2021-04-[address] [facility] 09:37:00 [facility] XR CHEST 1 VIEW PORTABLE / BEDSIDE 2021-04-[address] [facility] 09:35:00 [facility] CARDIAC CATH REPORT - SCAN 2021-04-21 Provider, Default [facility] 00:00:00 [facility] EKG-SCANNED 2021-04-21 Provider, Default [facility] 00:00:00 [facility] [id number] 2020-11-26 FANZH [facility]:00 [facility] [id number] 2020-11-26 FANZH [facility] 00:00:00 [facility] [id number] 2020-11-26 FANZH [facility] 00:00:00 [facility] [id number] 2020-11-26 FANZH [facility] 00:00:00 [facility] [id number] 2020-11-26 FANZH [facility] 00:00:00 [facility] [id number] 2020-02-29 KARNI [facility] 00:00:00 [facility] [id number] 2019-12-22 FAROM [facility] 00:00:00 [facility] [id number] 2019-12-22 FAROM [facility] 00:00:00 [facility] [id number] 2019-12-22 FAROM [facility] 00:00:00 [facility] [id number] 2019-12-22 MOUMA [facility] 00:00:00 [facility] [id number] 2019-12-16 FAROM [facility] 00:00:00 [facility] [id number] 2019-12-14 RANRO [facility] 00:00:00 [facility] [id number] 2019-12-04 MCKRO [facility] 00:00:00 [facility] [id number] 2019-11-30 MCKRO [facility] 00:00:00 [facility] [id number] 2019-11-30 MCKRO [facility] 00:00:00 [facility] [id number] 2019-11-30 MCKRO [facility] 00:00:00 [facility] [id number] 2019-11-30 [facility]CKRO [facility] 00:00:00 [facility] [id number] 2019-11-30 MCKRO [facility] 00:00:00 [facility] [id number] 2019-11-30 MCKRO [facility] 00:00:00 [facility] [id number] 2019-11-30 MCKRO [facility] 00:[facility]:00 [facility] Planned Activity Planned Date Details Comments Source Future Scheduled 2022-02-[address] [facility] 00:00:00 (12+) [code = [facility] DEPRESSION SCREENING (12+)] Future Scheduled 2022-02-08 FALLS RISK SCREENING [facility] 00:00:00 [code = FALLS RISK Medical C enter SCREENING] Future Scheduled 2021-10-09 INFLUENZA VACCINE (#1) [facility]00 [code = INFLUENZA Medical Ce nter VACCINE (#1)] Future Scheduled 2021-10-09 INFLUENZA VACCINE (#1) [facility] 00:00:00 [code = INFLUENZA Medical Ce nter VACCINE (#1)] Future Scheduled 2021-02-[address] [facility] 00:00:00 (12+) [code = [facility] DEPRESSION SCREENING (12+)] Future Scheduled 2020-10-09 [...] (2 - PPSV23 or PCV20)] Future Scheduled 2016-11-18 PNEUMOCOCCAL 65+ YRS [facility] [...] 00:00:00 (1 of 1 - Medical Center VPHJ22_Bqxslcu PCV13) [code = PNEUMOCOCCAL 65+ YRS (1 of 1 - NEYK91_Yhrqszm PCV13)] Future Scheduled 2004-10-28 PNEUMOCOCCAL 65+ [facility] 00:00:00 (1 of 1 - Medical Center PFVZ52_Gahqrae PCV13) [code = PNEUMOCOCCAL 65+ YRS (1 of 1 - DXHV45_Znbfcyo PCV13)] Future Scheduled 1989-10-28 SHINGLES VACCINES (1 [...] July ter VACCINE (1)] Future Scheduled [address] [facility] 00:00:00 [facility] r Screening (12+) [code = Tobacco Cessation Counseling and Screening (12+)] Future Scheduled 1940-04-27 COVID-19 VACCINE (#1) [facility] 00:00:00 [code = COVID-[address] VACCINE (#1)] Future Scheduled 1940-04-27 COVID-19 VACCINE (#1) [facility] 00:00:00 [code = COVID-[address] VACCINE (#1)] Future Scheduled 1940 DXA SCAN [code = DXA [facility] 00:00:00 SCAN] [facility] Future Scheduled 1939 DXA SCAN [code = DXA [facility] 00:00:00 SCAN] [facility] Encounters Start End Encounter Admission Attending Care Care Encounter Source Date/Time Date/Time Type Type Clinicians Facility Department ID 2020-12-06 Emergency [facility] [id number] Univers 23:34:44 [facility] 2020-12-06 Emergency [facility] [id number] Univers 22:01:31 [facility] 2021-05-22 2021-05-22 Outpatient TONNY Smith [facility] DAYS [id number] [facility] 08:09:00 08:09:00 Georgina Griggs [facility] 2021-04-21 2021-04-25 Inpatient ER YOUSUF GALLEGO [id number] [facility] 14:09:00 KARTHIK 2021-04-21 2021-04-[facility] [id number] 09:06[facility] 14:09:00 Encounter Aba Glass Sophia [facility] 2021-04-21 2021-04-25 [facility] Donna Cunningham [facility] [id number] 09:06:00 14:09:00 Encounter Aba Glass Marysylvie Gallego Karthik [facility] 2021-04-24 2021-04-24 Anesthesia Frank, [facility] [id number] 13:51:00 14:21:00 Event [facility] 2021-04-24 2021-04-24 Anesthesia Frank, [facility] [id number] 13:51:00 14:21:00 Event [facility] 2021-04-24 2021-04-24 Surgery Adrian, [facility] [id number] 13:00:00 13:30:00 [facility] 2021-04-24 2021-04-24 Surgery Manneal, [facility] [id number] 13:00:00 13:30:00 [facility] 2021-04-21 2021-04-21 Surgery Ty, Luigi [facility] [id number] 11:00:00 11:39:00 [facility] 2021-04-21 2021-04-21 Surgery Ty, Luigi [facility] [id number] 11:00:00 11:39:00 [facility] 2021-04-21 2021-04-21 Travel [facility] [id number] [facility] 00:[facility]00 00:00:00 [facility] 2021-04-21 2021-04-21 Travel [facility] [id number] [facility] 00:[facility]00 00:00:00 [facility] 2021-01-22 2021-01-22 Letter Nurse, Davon WING 1.2.840.114 [id number] Univers 00:00:00 00:00:00 (Out) Urgent HEALTH [id number] ity of [facility] 4.2.7.2.686 [place] as SAUNDRA?BLEA [phone] [address] MEDICAL OFFICE BUILDING 2021-01-21 2021-01-21 Telephone Nurse, Davon WING 1.2.840.114 [id number] Univers 00:00:00 00:00:00 Db HEALTH 350.1.13.10 it y of [place] 4.2.7.2.686 [place] as SAUNDRA?BLEA [phone] [facility] [address] MEDICAL OFFICE BUILDING 2021-01-18 2021-01-18 Letter GIORGI Barkley [id number] Univers 00:00:00 00:00:00 (Out) Carmen Chappell DESEAN 350.1.13.10 it y of [facility] 4.2.7.2.686 [place] as [phone] [address] 2021-01-17 2021-01-17 Outpatient R REGIS [facility] [id number] Univers 15:30:00 15:30:00 CHRISSY [facility] 2021-01-17 2021-01-17 Laboratory Only, Ang Db Test [facility] 1.2.8 40.114 [id number] Univers 15:13:32 15:28:32 Only Regis [facility] 350.1.13.10 ity of [place] 4.2.7.2.686 [place] as SAUNDRA?BLEA [phone] [facility] [address] [facility] 2020-11-26 2020-12-07 Inpatient EL Arvind, [facility] [id number] [facility] 15:35:00 15:04:00 Spencer 80 [facility] 2020-11-25 2020-11-[address] [facility] [id number] [id number] 00:00[facility]00 00:00:00 [facility] 2020-11-21 2020-11-21 Outpatient EL Arvind, [facility]CA[facility] 3DAY [id number] [facility] 09:00:00 09:00:00 Spencer 56 [facility] 2020-11-21 2020-11-21 Outpatient EL Arvind, [facility] 3DAY [id number] [facility] 09:00:00 09:00:00 Tevin 56 [facility] 2020-09-17 2020-09-[address] [facility] [id number] 00:00[facility]00 00:00:00 [facility] 2020-06-17 2020-06-[address] [facility] [id number] [id number] 00:00:00 00:00:00 [facility] 2020-04-18 2020-04-18 Outpatient R LAURA, [facility] [id number] Univers 11:00:00 11:00:00 LEILANI [facility] 2020-02-25 2020-03-11 Inpatient HCAWU ELISHA [id number] [facility] 13:51:00 22:41:48 16 [facility] 2020-03-04 2020-03-04 Orders Doctor GIORGI 1.2.840.114 [id number] 00:00:00 00:00:00 Only Unassigned, DESEAN 350.1.13.10 [place] [facility] 4.2.7.2.686 [id number] [id number] 2020-02-22 2020-02-22 Transition Zuhair Ragland 1.2.840.114 [id number] 00:00:00 00:00:00 of Care Lisa Oneal 350.1.13.10 [place] 4.2.7.2.686 [id number] 2020-02-11 2020-02-21 Inpatient [facility] PETRA [id number] Univers 21:02:00 19:12:00 BASIL [facility] 2020-02-03 2020-02-08 Inpatient X [facility] MPU [id number] Univers 18:23:00 16:43:00 MEGHAN [facility] 2019-11-26 2020-01-03 Inpatient EM Son, [facility] INTE [id number] [facility] 20:52:00 13:10:00 Rashid 55 [facility] 2019-11-29 2019-11-29 Outpatient R [facility] [id number] Univers 09:40:00 09:40:00 [facility] 2019-11-25 2019-11-29 Inpatient EL Silvio, [facility] [id number] [facility] 07:00:00 00:24:27 Salim 32 [facility] 2019-11-17 2019-11-17 Outpatient R LUCILA, [facility] [id number] Univers 11:20:00 11:20:00 SANTOS varma [facility] 2019-08-04 2019-08-04 Outpatient Joby GAYTAN [facility] [id number] Univers 17:20:00 17:20:00 SANTOS varma [facility] Results Test Description Test Time Test Comments Results Result Comments Source SURGICAL 2021-05-23 13:27:00 Test Item Value Reference Range Interpretation Comme janell SURGICAL RUN DATE: (test 05/23/21 [place] - LAB PAGE 1 RUN TIME: 1328 Specimen Inquiry RUN USER: INTERFACE code = PATIENT: JORGE A JONES RICKI LOC: JOSE MANUEL #: [id number] AGE/SX: 80/F ROOM: RE05/22/21[facility] DR: Georgina Smith MD : 39 BED: DIS: STA TUS: DEP [facility] TLOC: SPEC #: [id number]:COCHRAN:[id number] RECD: 05/22/21- 327 STATUS: DEVORA ALLEN #: [id number] KEENAN: 05/22/211326 SUBM DR: Georgina Smith MD ENTER ED: 05/22/21 SP TYPE: SURGICAL OTHR DR: Joe Higgins MD ORDERED: 19167/2, ANATOMIC SPEC, SPECIMEN TRAC K CODES: [id number] - RECTUM, NOS COPIES TO: Joe Higgins MD [address] [place] [address] Georgina Smith MD [facility] [id number] [place], [place] [address]e [address] [place], [place] [id number] PROCEDURES: [id number] (05/23/21) SPECIMEN TRACK (05/22/21) TISSUES: A. RECTUM, NOS - RE CTAL [...] submitted in B. Technical component performed at [facility],[address], [place] [address] CON TINUED ON NEXT PAGE RUN DATE: 05/23/21 [facility] PAGE 2 RUN TIME: 132 8 Specimen Inquiry RUN USER: INTERFACE SPEC #: 22:COCHRAN:[id number] PATIENT: JORGE A SHERMAN #[id number] (Continued) MICROSCOPIC DESCRIPTION A and B. The diagnosis is base d upon microscopic examination. Signed SIGNATURE ON FILE Zhanna Israel 05/23/21 1327 END OF REPORT BASIC METABOLIC [id number] 08:12:00 Test Item Value Reference Range Interpretation [...] = 9.2 MG/DL 8.4-10.2 N CA) PROTHROMBIN [id number] 07:51:00 Test Item Value Reference Range Interpretation [...] myocar dial infarction. 2.0 - 3.0 3. Web Marketing Manager al prosthesis hear t valves, recurre nt systemic emboli sm. 3.0 - 4.5 PTT [id number] 07:51:00 Test Item Value Reference Range Interpretation Comments PTT ACTIVATED (test code = APTT) 32.7 SECONDS 26.2-35.4 N CBC W/AUTO [id number] 07:38:00 Test Item Value Reference Range Interpretation [...] = 0.00 K/mm3 0.0-0.1 N NRBC#) T3, [id number] 14:39:09 Test Item Value Reference Range Interpretation Comments T3 FREE (BEAKER) (test code = 908) See scan T3, [id number] 14:39:09T3, FreeComment: See [facility] [id number] 14:39:09T3, FreeComment: See scan [facility] [id number] 10:07:10 Test Item Value Reference Range Interpretation Comments Case Report (test code Surgical Pathology = 104) Report Case: [id number] Authorizing Provider: Haydee Campbell MD Collected: 04/24/2021 01:59 PM Ordering Location: [facility] ICU Received: 04/25/2021 09:01 AM Pathologist: Rosario Chirinos MD Specimen: Stomach, Antrum, Antrum Body bx DIAGNOSIS (test code = [id number] 3220) FuZzEwMzNcZnRuYmpcdWMx IHtccnRmMVxlcGljOTYwMV djvgSgIPMkhGFiN4Vyuahf CFblST3jDC9clUjxbSPkjL UjRXWqQnKiw9ryu839dYNs g7meQYSTnpukrQv5yVroY5 3kp9Q0XxcaO61qqBBvESG1 BJEsFERpgMQrREIlZQD5LX VxxVXoF1htFTKeHI7qhmjo LEngHXglIEKqiVI6BUObrQ ZxO3LvFKQyTCszEFKmaif3 AwTvKa4ldZPlmHivIKsjHH NoJQSkVAhfOIIzNuVnG0WA RDGFGXryBI0NKzQOLDWrTC 0IP4FAD0LSMoBDHI1FU9w6 YEJezyJvHQ1kXMZYWg4NWE MgIEFDVElWRSBHQVNUUklU UWUhM5fKNOVCC2LTEMHLOk 8PFG6ZSZDEPXMjVC6HOBBS TN9PMUVEEJFVFCpTI3wDQS MzdzLyUE4aZOWBWCUDGLDU IEFUWVBJQVxwYXIgICAtIC IPVtOWOZKSLSXDWQLqH3Ew QYTSBFlBPJ0QMVAEXPVQQN xwYXIgICAtICBOTyBIRUxJ O03PJGFXEYBeRVpKD7VEUM 2LC6MEBVVPQsSHKRMBDN8S PBrQYIRDO2fYH5JXH6hOOB eVWPwaI9JXOE3obCXmpPxx bqPmTLpbl7OcJCynMUBtVB 2xdQojMJOoIP3cFWZtX9xu cQ1aewy9CuXyPCJdHyT8YX EauzO6Dqy1DLDgYFcqx3hm r9HtYDIxTUn7iThiYaJmTR Jcv4seeyGkDkMhDWFhZBDc GEGmzIAkE057r7gpg9hjzu XwySW7QUMqKQN8SBqzwvGf lmE9BXxduPWhIhD5CVjsck SnDMbvpwUbcmZaIre1UMXc M918GXW1gYjef2rpLKA1XB XiQVKdGbHiWx9zjQPeN321 VQVhVHKFIIOmqYo8TPOvgm YelrTwgJBLf976Y166r0uf TPIrqhGxgXbOsqxnn1ncS8 19XHBhcGVydzEyMjQwXHBh qVHdyDS7KKBxPR2fmhxcIK ynCQncDOOxqeD9AMUfrMVt S0KySUFtKB0ubccaTVZ3YU foDNPzDLL4MdPtIKTgy6Fq qii8XcOzqm1dru00JBL8j7 KguZfxJCF4VLN6UdZnOz1j fOLgDBItHL3bOvMjiUBkZE Dvbn40vVibJHhdOOQ6GUBk ndIxc7Lzu4bvTgNnrmJcK0 hpE2YmYQSuYOAgZYKzVhSj fqYwb4Iks7KqyYRzjYk9w0 acUUTlZMFmgAjei0xcWLX2 VAPdwLImH2hmyQ6bCPCdEY 6nikoov1fhGPurZVmzQVBi xKT1ypH6CKEeeQZzP5QfkP 7gZKEzMSosGKTvzrh5DjWu Yt6wnUXrwTpzQNbkJlycFD dlXHBnbmNvbnRccGduZGVj XHBsYWluXHBsYWluXGYwXG ZzMjRccWxcbGFuZzEwMzNc aGljaFxmMVxkYmNoXGYxXG lhC3nzZwKrXiAbVwl4TGRh sWEnGSWqHlj4IVPcuSHnFF ZFtJheuB0wEAUllPohzY2i zZH7BMOtfrNzvOZKcX6uNT JLbT0hPwA8SvIvGzO0JCT6 MjlccGFyfX0= CPT Code(s) (test code m3ojoTAxEKOxqOX3EsBpVJ = 3357) Hgp5nok3YyqUFpaCQdSZep qENixaCmvx43wRC8eJ05JK 8dYVVbDyQ7HQNpoiD1Lzg8 KIDqIDBuvWTkD585p3iuq2 sqrxZptNU3zDocEOUubhuu UhD7YXmhQFNypwpvGRh9UJ xrFISdwYM0YVZaeUIwQ1Bk VTOxBE5foba9WSP1HPynMI HxAfJ9TLOqsIGqFJKryXvw SRait750CXB6VnFfWIQqda MluZrbvY4mGjXvTLC5EVTo NTsgODgzNDJccGFyfQ== CLINICAL HISTORY (test k5rkbUElQNRvvEP6HhGkKM code = 3356) Bud0biv0IqnZUioBDeSObl lJOszkQycf57fZT3lH82ZJ 4kTWYfIyP6TJIghcF4Kvx5 XAOaHVWleMSwK359f3xeq4 oshdHnpTF5lShbRPYxlbgy NjK4OOcwVRPivflkVBi1SB hdQXMigHF7AYAibBXmQ2Sd YWMbUX7ugir0IVL8SVuyGH LyTqB2FLPbnTGgZFVgrEly TLevg707IGC9SsMmQDZlfu OxvRrhoL7wPdOqTWIJfKDj UN3omZKarP== SPECIMEN SOURCE (test h2ikyEJuWDPyiTV6CmXwSU code = 3377) Sxp5hsk0CjuJLhjSFrLUwf kAQmliKelo94fMZ1vK37XP 3bIZKyNgY5EUFarcJ9Xka4 ZQQlHMXxeZWuW325j5pxx1 arooTpqRJ6rObjLJPkignu UlL8NFpdNGUwnurpSNv2UZ wnZXAcsTK7OIOuuVJwV4Su CFVcID7rtbp2EBS5NEkmSW TyKeH8QMMrwOMvFANyeAvw XPozc919HDN6RiNyLTWqdk WulVxwaH2qSgHuGVWKzF5s YWNoIFxwYXJ9 GROSS DESCRIPTION (test t1fhaURaGAUoeDY3UpDyXT code = 3366) Daj4xrm0JvxNEzwIVyOBhe cJLxbsLnjf04jCT3hW13JM 1qCWLiYpB1SDUphqM2Uvs5 BJToHXOkyKQsW333c5mxi3 psppMnmIN9iRwfIWSvzstc SsZ1ARljMBAqvcbdEYm6SZ qsYTHphBP5BIOajJWfU4Qg XOCiCW2nloi1JRN4KMltZA UrFoK5AHCohCLtMXLsnPbo OJggc476SWG5BmBjSWMvxu MizMmmmU5sDcCeXICWKDPo mLAgGEFevdHze4PiPYezvg BsYWJlbGVkIHdpdGggdGhl IHBhdGllbnQncyBpbmZvcm 1hdGlvbiBhbmQgbGFiZWxl GYUpi4LmrUGzhVLgzsDiyU 8dULvhKBObs1agC3hqVLAh cl29fOe6DQFysSQhAWTuKk F5oBDdzMMyvKHho0FoiQ5f IDAuMyBjbSBpbiBtYXhpbX KtGJXemGOvc8hchvPxzBOd bZX6NCPdPY70qLXurUjfqR YjECffXBKoQDCaPNW0PAHC DoBGIT7vw2woSIA4 MICROSCOPIC DESCRIPTION m4nvrYHeJJSecRC1LnWyGQ (test code = 3371) Ulk8qib1OscZIoaYYgECxj tVBmjxRhgq78sLT4eJ54GM 4bIUXuKpM1VVYwiiB3Akx9 GQXgLXMebXYbM553v0zjb6 agccLupVU9vFjaBRDgwtcr YlE8LMfoBWDpwwbpXMg4JZ xrEDPyrIT3VSQkaCYiE1Di VSUvVM2xlae0CSZ7AIkdQI OvZtU3HJPadXDhKQWkeVyl TBhcv952APV7LrLfONDctp HedBqulQ8sUhEyHOCTHSBD X5HKHMUlqRNznM== SPECIAL STUDIES (test e4kqeNCwZUNebKP9NxVlJB code = 3376) Adb4kks0QkqSDbgYQiECrs dUBkicNqcp65gUM3wM03UZ 6iSUOfJeL2CNGnejT1Tqm9 RFOwTVJdyJIyO940h4sal9 didhRnwGB1pQcaDLGrqsik MyO4TOcsNRWhjlfjKRh9XU nuVSAqmXX4KALvuKKwH7Ao YMXyMC9axed5AWX2OHruEP MaGyA4DMOmvOErFADgfLtj BAcpo413UXV5UcZyEDSaml NsuVnaaF1yKsVfJKXWwYIn jM36BKQubaJ2FZGcz58bn6 YaoBwngdZhCSJbURdrK2j4 RLKjMDKlALX4v7Udr2QsoS 3xxC3pjXqbjI9oyJPozFY9 hvxme5Mav5PyQ9oraYLguI FpbnMuXHBhclx+SEVMSUNP YgFEEKYAZSQROD5MIXkdFU NdCI5xmR8zqSwkyQ3lmFTt uYC2chofwHNjfQ8gZ2WqHQ Ose9Kwnzpco8VkRVRffqDo nw9kCAVffAHFMZysf6PfP7 HmRWv4i5JaqLuaKNbeMDu9 XzApNNCayHBcvKEMGZ75EH XwWULliHzwtN2spHWIUCFy cmE5w3E9FKaiECEfHGs6GP kilfJoTADcnA1aHVPxJW4z AEx9ebOzQIQjy9RxDR2pRP GlbCGgYIE6IPYex4MbK2Kb g5FmBACuMVZqts5jinCiPk GFrGOlVAJant34XMBnSP1f J2ldONSsWTWjmdVnaGKro0 FbISFmfHG6uGAdMO5VFsAE r43gPGVxRRHQqsCfLSDmvS fxmUR0miF3eF4uDgDYdYIa RpBSVIrvugRyCKNnyw8gyj DzYAYnYZBmv5HvqCHiyHBm piHuN6Dyg5KqXMCgvy04HX vheQSqlc12UF0sY5Bgl3Hu lN4gYDiwGQVuf9FdoZFafB BqSMVry4OwP7uzdkdlDRqs mNMtdM1wWVTlQQs5IXEgt3 CdAIBch9NfGwMrdvDvKETq YEUqDJKjnW78CBY5tJluwV tejxNmYX5uOEJkdyPuZLVe HXUqiL7hMVnbefGhNQRuhh Z3h5M4NLqiAGUnpiRfOwwq INO8lgShtyZ5pTAzX5rpbw uoOHrrWDKxg6XdxP2vmZIX uANeg8HipQHrxPTVlSMtTO 0hgoMjLP1tMOA3NJwjZQOD KXGmEHosYZYqJKY9LQgmXg qrUNL6weKgKVOmk0EjDYvw U9tgF21hgGqibOl6bIVcgV jzhVScsNOtPRAzsiU7w8A4 WKAep4RxhciyNXXkdftcHB JcfiBccGFyfQ== [facility] [id number] 10:07:10 Test Item Value Reference Range Interpretation Comments Case Report (test code Surgical Pathology = 104) Report Case: [id number] Authorizing Provider: Haydee Campbell MD Collected: 04/24/2021 01:59 PM Ordering Location: [facility] ICU Received: 04/25/2021 09:01 AM Pathologist: Rosario Chirinos MD Specimen: Stomach, Antrum, Antrum Body bx DIAGNOSIS (test code = t6zqzGWgHGXkr9ioYHNrlG 3220) FuZzEwMzNcZnRuYmpcdWMx IHtccnRmMVxlcGljOTYwMV prewQhXSWfaIIcQ3Swdmma XDlmSN0bIW7etAeekDZdoC OvAMBfRmIgf8zyt296iMIt z8mbVTOKegxenJn2hVfbM6 4ib8W8DsorS80omTKpVHC2 TULaZYHpiKVeEKKdAAE5KE KqvOWuP7tkXEBsWE4xcflw HPrkEFnjVNZsuLL7YHKduL EnQ4QzRWQpWDciIIUlzeg1 AwCqXv6awWPosBinWVvrXM LoFUTzAPadXIXoIuQcD3GC GLNHASfxWV3TPlOKAWRnLC 2HO2ETP9SSIcBKDM0AB9b4 QZNuzpVyES2tYFJWHy1OFU MgIEFDVElWRSBHQVNUUklU QTEhE6iIDVFYV1DVDYKXRn 9JVB3YOWMTITIvHJ9MCURW OV9ITPBNEQKEDPwGI0uJZQ TlzhPzAO6dVKBWVARNKNTM IEFUWVBJQVxwYXIgICAtIC TDVqFYBSHTYKHNWQGuQ4Uq NZAJLHsAVF4ZVIBSBOVZFP xwYXIgICAtICBOTyBIRUxJ Q10UYGWIIFEhWUnRK4PLXD 2UY2GVJRZVJtSGLXVTWT3L DXuEASJCX6cVZ2NEQ2qGRQ sDMXajO6HIYD3pcMPxrFri uaCySCeua6UdGNbeSAZwCE 0zlAcyPHSpGT3dKLXqS4rg vA8nzis7MaBhQRJdMcB2VN KcmaL2Kxt2BNGjBHwce2jw w7YuIEXiQWn9gJhtZgKzPQ Kto1nbijZnOjHfKMTsIJBz SCZbwGXnK578v1unr5cgbb LsoJG2JUEySAD6AGlhawMd rkR3SBqlfXWvLnQ2TDunfl OaYJudslSchlYhHkw9ARPd R741YGO1jMsmz7jdGDJ4WE PxIFVsIoUaXa3vhIGaY663 FUIqWYEYOHYlxRd3UJDebi VjxoWqkRULk765C844a6fh VPDtiyLizTeRoabjp3brP9 19XHBhcGVydzEyMjQwXHBh qVZwiAM4OJVnEE0alvraRN suZEvjEKIucbN0RHCyfHAy R9FgQBMyPH6vpunzULT6FD hwGWKjBFN2FvDcXESet4Pq tzq5HsAuqs0bzb87JRP6h2 UzpBkiZCN0SQY6XyUuYw2q bRXoVOTsXV5gOxGdyQHsHT Fgpn84kEcfNMwoWJU8KGLy zsLei2Ams9xbVeZcbtNxC2 zjM7MfSKAfESNiMFGkZwPv bjRqq2Lqq2ZwtXFfnZf5v2 jwNVPmPSJkmQxnf8cbAER2 XSMuqYAtS0kcoB5vFSBkGN 3epjanw1vcEThzUYqrLXSp tOR5txC2QKHcpAZtM2MzkO 7xQNCvHWiaHLZqbke1AuKk Sk3zgGKgyOofXBxbCczgAR dlXHBnbmNvbnRccGduZGVj XHBsYWluXHBsYWluXGYwXG ZzMjRccWxcbGFuZzEwMzNc aGljaFxmMVxkYmNoXGYxXG tcP6eaTcOkHaUuKgn3CRBy wXIgTDRbQqd7VUZbnFNmFP RBvOgznW3vIBEqdMqxiZ0f qSS1IGOybrKvjKVMbY7zVZ UPdS2eGrD0CoNlIaI8NIG2 MjlccGFyfX0= CPT Code(s) (test code v1gbnMImDUKtbBM0BxLdAW = 7947) Ljk1odp1NuoROicZPuJYyl fOLbjkTegz08xFH8qH37JN 2tRZDbGjA8IXJyrpM1Byv2 NKTqRFCepQGbF243a9vcn7 orksGzwLL1qWqhQXVvmrqj HqP2LPmbBPGkbfeuBBt7OX qaQMVdiPC8ISMbiRWoA1Zp SQGlSP4afkb7CNP5LPtxCR HhBwA8OEIcrASiMGSnqUob QMiyr159ZJZ7MlXbXUWtas VxeHuukO3kBjXzAIM2MYVp NTsgODgzNDJccGFyfQ== CLINICAL HISTORY (test y3lndKGxBWKahQJ1QrYyAU code = 3356) Nln4hdz1CxmEOjsIAxVQlu qEWcdnVbzq16kAD6hT61GH 2xTLXgAuY3ZVYmpjN7Bhc1 ECGlWXPmaZBzZ805d2wee7 juznAhgOC6zHfgKQXrpgnz JsK2YIwcRPPrekxrBBn9XS jxOABoiYH7TIAkvEXbH0Pc WPSwMD2gsxc5LQQ7MPxlEZ AeMoB7NHSmpYHeGBRreFyl WFzli937OZU6FsGaCJGexl JncUgebG3nUrYgQIDZxZFd UU4ytYUwcT== SPECIMEN SOURCE (test l7vrsGQhXQSxlMP9FwWwWA code = 3377) Ejd1lhy3ErvHFreWJhJJda pXWtebJeyq57bVG9bY96SK 4cBNTzOcJ8CBTzvgI3Vlb3 CUMcIYTsyURiO661q6riz0 yblpGaeVZ5vLsaETXxxhjs XcZ5IDgcXVBvcnxwKIl5JK nxYUCxmJF6OUSfcQXwL9Sb EXXrZV7bmlf6DXF5MMgqPX GdDwQ5KNRoyVMmKJDutOdh GOqxl037OUD8VhGyWTUbmw OoiKybhV1tDoNzXIWIwC9r YWNoIFxwYXJ9 GROSS DESCRIPTION (test i0hsvWJjTOOooIM6DfIrVX code = 3366) Tiz1ufb8FjuOHgoEEoJSzj gDUuroAauq94xGK8vZ65DI 7cUUVlHaT5MDZhvvI0Mtw1 MQNqIKJlfAGuD304q0tog7 ytujDqxTV1zPsfGGGitqdq BuQ1URgtSGBbphadNSw8ON pcTQGzdZN7XSCshJZrU1Ev WGYsYS1iqsl1WPC5TRjrMB BbRtC9UWJkhNWrJVXkfXhg VXodr984XWB3SpOyBOTubz DedRgdfG3dNzSmEPPDMRVn iSClMCQyftOlk5MlLDfcdt BsYWJlbGVkIHdpdGggdGhl IHBhdGllbnQncyBpbmZvcm 1hdGlvbiBhbmQgbGFiZWxl LNGdq6VpgSYdzYDspnKecU 7xUFshXKXep0heH6inBZVm ex57hUo2WFGzrDWvTGHaBh S5vOOfhLNdvDOnj6BeeS2r IDAuMyBjbSBpbiBtYXhpbX PlVETbeGGkq8qzwkZltQJu bND8SQJqRZ06bMHjnFujmH MvPYfvZBXlRYCmWOD0UNZT VqKTDA3ym2hnGUA6 MICROSCOPIC DESCRIPTION s4clqVVqJHWkbAA8XvUlXI (test code = 3371) Dxl4cql8CjnLXaoHBqMQas hCQwrjDjum15hNF5pI60BW 1uXHLzZjV2CIWpfrB2Cfa1 KKGgPAOwhJUwE156w1gnl6 zoynFimXX7qOcbRFNpqrjc GzO6RDpaGKJwcttbNTx0EX tlBQKvaJA0VPIgvDIrK6Xj ZXBgDK4ayuo2GGI6AHxgVH HeZvF1PXXtwFGcBBSlxUnz KDjjr921RXN3ScSkPDBavy IfzOxhrP1aLaXqCLXIEMSR E4OWGVZxaKCpjC== SPECIAL STUDIES (test j6xluRShLUKbyIT2EpMoZD code = 3376) Lmx6ted6KzuQVeyTAmHNmk eHEpjnDyps89iNG5qM99DY 2qFAWnGnR5GUBknaH2Opu7 ZUZtDWSkrTUhO097n8olh5 uvpbEinUL5gEywWJJaxqhr SuB6YZnoMBSmieewMKu2OM brUKZhcMC8LDWnaIMaS3Cr BXMeYN6kpbn0XIJ6NUexEI WfPnS7KHAnjRQmCAJeeTxf XOlti550ZCK6EtAmPAWily KgiGifeK8sStYjYJIVqFZg oY94PXCbdmK9GFAtv97sh4 UjuPaijjZcBRKyJMniK0l8 OSKuASSiFIE4e1Xup4NjtX 8ltI9iyQbdsA8mlKVtlRQ3 tiinu9Yur9IgW9hsfLDdeJ FpbnMuXHBhclx+SEVMSUNP YtSFCORWCPRAGP8YMPqqOW IiFG1esO5qtKknzB0xhRPk aYN4gtfqwWFjtL8fN9GcUD Isf1Epwrnvf8FiTFYjmpAx sq1kUZCffTUCZTcan0InR3 RtIEs9r7FkwXvsCHzeEXh4 ZfKgAFTykUYtvMNSWM40SB UzPQLvbEchhZ2rrGXWVJYe okM5i5O4KGzqMMQmHOb8WY rywcWuIMNxkW0zCZAaYX4j KXh8sxBrLEXxh2FjNW9zYE XltPTzKRF3FDMow9JoN7Qo h0YnNRKaCPUtwm5ekvQkNt BXuWLpIWWgsl30EVJmVP2k D0zhPQXlXWKexuWzqYEcz3 MwLQOqcXV0gAMzJG2PKpIX j73qFKVeSXLZmdXrCYIvwX avsHD6cyP5vR7pUrUVjRAh ZeJDYKuirsNhXTXtdt4rcp HrNSXgUAOfe3KvsSVhiSBl feHoO5Fiz6QzWUDqud25BS mbrLVtav10GJ9fP1Iiu8Sf bM6aMVgjQIFao9LhoRByqQ VqQRFad7NzD1qgsczvTTvo dZTtrH1jZZGpFFg4OHYhr0 PzCDXdc2HzMxRdvqMzSKHy PCLuVPFvwV42DCU3wDwsqA fcoiUqWN2mFTJpnmHiLIQw FTWfgM2iWDnyvrGnXLGfed D1j4U4NChfCOTrfePnTzdu NBO8rkEcgkL0vMKwC2wuqk cfNSepQZKzo3YjsF2yrWDY sQDfu5AwzMDnnPUKeTVbQS 4nbyNpJX2zNSX4KZllBBDC GFNiNEsbCPFeIFS8ANutDr jvUCN1rvDgOUJmy0EyQJcf E8fkP78heAbnkXb9gVUfoG ewmMTrhCTaEBRxuvR1p0X6 LNCek3FpaipdXEAiamiuUV JcfiBccGFyfQ== [facility] [id number] 10:07:10Surgical Pathology Report Case: [id number] Authorizing Provider: Haydee Campbell MD Collected: 04/24/2021 01:59 PM Ordering Location: [facility] ICU Received: 04/25/2021 09:01 AM Pathologist: Rosario Chirinos MD Specimen: Stomach, Antrum, Antrum Body bx STOMACH, ANTRUM, ENDOSCOPIC BIOPSY: - CHRONIC ACTIVE GASTRITIS WITH FOCAL EROSION AND INTESTINAL METAPLASIA - REACTIVE ATYPIA - NO DYSPLASIA OR MALIGNANCY SEEN - NO HELICOBACTER PYLORI ORGANISMS SEEN ON IMMUNOHISTOCHEMICAL STAIN Signing Pathologist Direct Phone Line: [phone] signed by Rosario Chirinos MD on 04/30/2021 at 10:07 [id number]; [id number].Stomach Received in formalin labeled with the patient's information and labeled "stomach antrum" is a single isaac-white piece of tissue measuring 0.3 cm in maximum dimension submitted entirely labeled cassette A. BH/ewPERFORMEDThe interpretation of this case included the use of immunohistochemistry or special stains. HELICOBACTER PYLORIImmunohistochemistry technical testing was performed at [facility], Pathology Laboratory where it was developed [...] = No growth in 5 days 6463-4) [facility] - [facility]uncture)2021-04-26 22:01:12 Test Item Value Reference Range Interpretation Comments Result (test code = No growth in 5 days 6463-4) [facility] [id number] 22:01:12 Test Item Value Reference Range Interpretation Comments CULTURE (BEAKER) (test No growth in 5 days code = 1095) BLOOD [id number] 16:01:30 Test Item Value Reference Range Interpretation Comments CULTURE (BEAKER) (test No growth in 5 days code = 1095) Basic Metabolic Bhoxj3145-12-42 06:18:59 Test Item Value Reference Range Interpretation Comments Sodium (test code = 138 meq/L 373-338 3535-2) Potassium (test code = 4.4 meq/L 3.6-5.5 2823-3) Chloride (test code = 105 meq/L 98-106 2075-0) CO2 (test code = 22 meq/L 20-29 2028-9) BUN (test code = 38 mg/dL 10-26 H 3094-0) Creatinine (test code 1.87 mg/dL 0.50-1.20 H = 2160-0) Glucose (test code = 90 mg/dL 70-110 2345-7) Calcium (test code = 8.5 mg/dL 8.5-10.5 51200-0) EGFR (test code = 26 mL/min/1.73 [place] [address]-8) NOT ACCURATE CREATININE CLEARANCE IN PREDICTING GLOMERULAR FILTRATION RATE . ESTIMATED GFR I S NOT APPLICABLE FOR DIALYSIS PATIENTS. HONG (test code = HONG) Pharmaceutical Analyst ID - [id number] ID - PREW29Nsbnkfbv ID - HLSL62Nnbthljh ID - TSWH80Lpqjgclv ID - XXVY00Tkyuowqd ID - BKTF45Surkikvr ID - VRLB92Azufbhhq ID - PANX40Vlfyxeun ID - CKIM98Fqceaoyp ID - MXBF30Aoxcdzte ID - NYMA57Xzxwrkwx ID - HUJW99Tbhaqhsy ID - [id number] Lab Interpretation Abnormal (test code = 12122-6) [facility] Blchk9252-41-49 06:18:59 Test Item Value Reference Range Interpretation Comments Sodium (test code = 138 meq/L 754-692 0890-2) Potassium (test code = 4.4 meq/L 3.6-5.5 2823-3) Chloride (test code = 105 meq/L 98-106 2075-0) CO2 (test code = 22 meq/L 20-29 2028-9) BUN (test code = 38 mg/dL 10-26 H 3094-0) Creatinine (test code 1.87 mg/dL 0.50-1.20 H = 2160-0) Glucose (test code = 90 mg/dL 70-110 2345-7) Calcium (test code = 8.5 mg/dL 8.5-10.5 41723-3) EGFR (test code = 26 mL/min/1.[place] [address]-0) NOT ACCURATE CREATININE CLEARANCE IN PREDICTING GLOMERULAR FILTRATION RATE . ESTIMATED GFR I S NOT APPLICABLE FOR DIALYSIS PATIENTS. HONG (test code = HONG) Pharmaceutical Analyst ID - [id number] ID - WDPH02Fcbnxrau ID - WIHX67Qwbplxkj ID - TVAJ97Iyvwhloh ID - HUSG80Qespwosg ID - RSCZ79Njbxqlpw ID - EVPQ02Oswyiihq ID - ZNOV18Npwiilry ID - GTUK83Ggsdvbhf ID - THZP67Mudhtgbu ID - ZYXP34Hujpwper ID - BKBM71Cxcildns ID - [id number] Lab Interpretation Abnormal (test code = 66350-5) [facility] METABOLIC [id number] 06:18:59 Test Item Value Reference Range Interpretation Comments SODIUM (BEAKER) 138 meq/L 135-148 (test code = 381) POTASSIUM (BEAKER) 4.4 meq/L 3.6-5.5 (test code = 379) CHLORIDE (BEAKER) 105 meq/L 98-106 (test code = 382) CO2 (BEAKER) (test 22 meq/L -29 code = 355) BLOOD UREA NITROGEN 38 mg/dL 10-26 H (BEAKER) (test code = 354) CREATININE (BEAKER) 1.87 mg/dL 0.50-1.20 H (test code = 358) GLUCOSE RANDOM 90 mg/dL 70-110 (BEAKER) (test code = 652) CALCIUM (BEAKER) 8.5 mg/dL 8.5-10.5 (test code = 697) EGFR (MUSA) (test 26 mL/min/1.73 ESTIM[place]ZI GFR IS code = 1092) sq m NOT ACCURATE CREATININE CLEARANCE IN PREDICTING GLOMERULAR FILTRATION RATE . ESTIMATED GFR I S NOT APPLICABLE FOR DIALYSIS PATIEN TS. Pharmaceutical Analyst ID - [id number] ID - XIFU45Zauyemqx ID - TOVJ23Qiipwwqn ID - GRCR76Bhvdfcvn ID - GATV22Nxnlpzlc ID - YDRC78Jfpeovfp ID - SXWP57Vtaxocwk ID - FSXR16Qqkfgivi ID - BZGA72Dnqkeqwk ID - QHHG81Wdqikhac ID - ZKAL17Erzjkikl ID - YBQL98Fsjwwvtl ID - ZKNG36Ysmlk Prothrombin time/INR while on jpngagii8163-39-70 06:17:27 Test Item Value Reference Interpretation Comments [...] valves. Lab Interpretation Abnormal (test code = 90042-3) [facility] Pro[facility]rom[facility]/INR while on warfarin 2021-04-25 06:17:27 Test Item Value Reference Interpretation Comments Range Protime (test code = 14.3 See_Comment H Final 5902-2) Information (Auto Output) [Automated message] The system which generated this result transmitted reference range : 9.3 - 12.0 seconds. The reference range was not used to interpret this result as normal/abnormal . INR (test code = 1.33 <=5.90 Final 6301-6) Information (Auto Output) HONG (test code = RECOMMENDED HONG) COUMADIN/WARFARIN INR THERAPY RANGESSTANDARD DOSE: 2.0 - 3.0 Includes: PROPHYLAXIS for venous thrombosis, systemic embolization; TREATMENT for venous thrombosis and/or pulmonary embolus.HIGH RISK: Target INR is 2.5-3.5 for patients with mechanical heart valves. Lab Interpretation Abnormal (test code = 55095-8) [facility] HospitalPROTHROMBIN TIME/[id number] 06:17:27 Test Item Value Reference Range Interpretation Comments PROTIME (BEAKER) 14.3 seconds 9.3-12.0 H Final Infor mation (test code = 759) (Auto Outp ut) INR (BEAKER) (test 1.33 See_Comment Final Inf ormation code = 370) (Auto Output) [Automated mess age] The system [employer] generated this result transmitted ref erence range: <=5.90. The reference range was not used to int erpret this result as normal/abnormal . RECOMMENDED COUMADIN/WARFARIN INR THERAPY RANGESSTANDARD DOSE: 2.0 - 3.0 Includes: PROPHYLAXIS for venous thrombosis, systemic embolization; TREATMENT for venous thrombosis and/or pulmonary embolus.HIGH RISK: Target INR is 2.5-3.5 for patients with mechanical heart valves.CBC with platelet count + automated zdvl2800-83-20 06:00:36 Test Item Value Reference Range Interpretation Comments WBC (test code = 6690-2) 10.1 See_Comment H [A utomated message] The system [employer] generated this result transmitted ref erence range: 4.0 - 10 .0 K/L. The refe rence range was not u sed to interpret this result as normal/abnor mal. RBC (test code = 789-8) 3.55 See_Comment L [Au tomated message] The system [employer] generated this result transmitted ref erence range: 4.00 - 5 .00 M/L. The refe rence range was not u sed to interpret this result as normal/abnor mal. MCHC (test code = 786-4) 33.3 See_Comment L [A utomated message] The system [employer] generated this result transmitted ref erence range: [...] See_Comment [Aut omated message] 777-3) The system [employer] generated this result transmitted ref erence range: 150 - 43 0 K/CU MM. The referen ce range was not u sed to interpret this result as normal/abnor mal. MPV (test code = 11.1 fL 6.0-11.5 83112-1) nRBC (test code = 413) 0 See_Comment [Aut omated message] The system [employer] generated this result transmitted ref erence range: [...] See_Comment [Aut omated message] 670) The system [employer] generated this result transmitted ref erence range: 1.80 - 8 .00 K/L. The refe rence range was not u sed to interpret this result as normal/abnor mal. # Lymphs (test code = 1.76 See_Comment [Auto mated message] 414) The system [employer] generated this result transmitted ref erence range: 1.48 - 4 .50 K/L. The refe rence range was not u sed to interpret this result as normal/abnor mal. # Monos (test code = 1.08 See_Comment [Autom ated message] 415) The system [employer] generated this result transmitted ref erence range: 0.00 - 1 .30 K/L. The refe rence range was not u sed to interpret this result as normal/abnor mal. # Eos (test code = 416) 0.40 See_Comment [Au tomated message] The system [employer] generated this result transmitted ref erence range: 0.00 - 0 .50 K/L. The refe rence range was not u sed to interpret this result as normal/abnor mal. # Baso (test code = 417) 0.04 See_Comment [A utomated message] The system [employer] generated this result transmitted ref erence range: 0.00 - 0 .20 K/L. The refe rence range was not u sed to interpret this result as normal/abnor mal. Immature 0 % 0-0 Granulocytes-Relative (test code = 2801) Lab Interpretation (test Abnormal code = 02554-9) [facility] with platelet count + automated qayl1102-69-87 06:00:36 Test Item Value Reference Range Interpretation Comments WBC (test code = 6690-2) 10.1 See_Comment H [A utomated message] The system [employer] generated this result transmitted ref erence range: 4.0 - 10 .0 K/L. The refe rence range was not u sed to interpret this result as normal/abnor mal. RBC (test code = 789-8) 3.55 See_Comment L [Au tomated message] The system [employer] generated this result transmitted ref erence range: 4.00 - 5 .00 M/L. The refe rence range was not u sed to interpret this result as normal/abnor mal. MCHC (test code = 786-4) 33.3 See_Comment L [A utomated message] The system [employer] generated this result transmitted ref erence range: [...] See_Comment [Aut omated message] 777-3) The system [employer] generated this result transmitted ref erence range: 150 - 43 0 K/CU MM. The referen ce range was not u sed to interpret this result as normal/abnor mal. MPV (test code = 11.1 fL 6.0-11.5 41060-9) nRBC (test code = 413) 0 See_Comment [Aut omated message] The system [employer] generated this result transmitted ref erence range: [...] See_Comment [Aut omated message] 670) The system [employer] generated this result transmitted ref erence range: 1.80 - 8 .00 K/L. The refe rence range was not u sed to interpret this result as normal/abnor mal. # Lymphs (test code = 1.76 See_Comment [Auto mated message] 414) The system [employer] generated this result transmitted ref erence range: 1.48 - 4 .50 K/L. The refe rence range was not u sed to interpret this result as normal/abnor mal. # Monos (test code = 1.08 See_Comment [Autom ated message] 415) The system [employer] generated this result transmitted ref erence range: 0.00 - 1 .30 K/L. The refe rence range was not u sed to interpret this result as normal/abnor mal. # Eos (test code = 416) 0.40 See_Comment [Au tomated message] The system [employer] generated this result transmitted ref erence range: 0.00 - 0 .50 K/L. The refe rence range was not u sed to interpret this result as normal/abnor mal. # Baso (test code = 417) 0.04 See_Comment [A utomated message] The system [employer] generated this result transmitted ref erence range: 0.00 - 0 .20 K/L. The refe rence range was not u sed to interpret this result as normal/abnor mal. Immature 0 % 0-0 Granulocytes-Relative (test code = 2801) Lab Interpretation (test Abnormal code = 14705-2) [facility] W/PLT COUNT & AUTO [id number] 06:00:36 Test Item Value Reference Range Interpretation [...] PERCENT (BEAKER) (test code = 2801) POC-Glucose djvmn6429-78-20 16:56:50 Test Item Value Reference Range Interpretation Comments POC-Glucose Meter (test 127 mg/dL 70-110 H : TE STED AT [facility] code = 1538) [facility] [place] [address]: Pharmaceutical Analyst/Techni thang ID = [id number] for Ali, Rachell Lab Interpretation (test Abnormal code = 39172-2) [facility] nzrax0791-05-32 16:56:50 Test Item Value Reference Range Interpretation Comments POC-Glucose Meter (test 127 mg/dL 70-110 H : TE STED AT [facility] code = 1538) [address] [place] [address]: Pharmaceutical Analyst/Techni thang ID = [id number] for Ali, Rachell Lab Interpretation (test Abnormal code = 85525-2) [facility] HospitalPO[facility]SE [id number] 16:56:50 Test Item Value Reference Range Interpretation Comments POC-GLUCOSE METER 127 mg/dL 70-110 H : TESTED A T [address] (BEAKER) (test code [address] [facility], = 1538) [place] [address]: Pharmaceutical Analyst/Techni thang ID = [id number] for Ali, Rachell POCT-GLUCOSE [id number] 11:31:44 Test Item Value Reference Range Interpretation Comments POC-GLUCOSE METER 89 mg/dL 70-110 : TESTED A T [address] (BEAKER) (test code = [address] [facility], 1538) [place] [address]: Pharmaceutical Analyst/Techni thang ID = [id number] for Ali, Rachell POCT-GLUCOSE [id number] 09:15:32 Test Item Value Reference Range Interpretation Comments POC-GLUCOSE METER 123 mg/dL 70-110 H : TESTED A T [address] (BEAKER) (test code [address], = 1538) [facility] [address] [address]: Pharmaceutical Analyst/Techni thang ID = [id number] for APOLINAR SAUCEDA POCT-GLUCOSE [id number] 08:20:41 Test Item Value Reference Range Interpretation Comments POC-GLUCOSE METER 67 mg/dL 70-110 L : TESTED A T [address] (BEAKER) (test code = [address]) [facility] [address]: Pharmaceutical Analyst/Techni thang ID = [id number] for Rachell Qiu Oyswlmlum6580-10-18 04:25:58 Test Item Value Reference Range Interpretation Comments Magnesium (test code 1.8 mg/dL 1.5-3.0 = 15512-8) HONG (test code = HONG) Pharmaceutical Analyst ID - NSUVAGIYAOperator ID - NSUVAGIYAOperator ID - NSUVAGIYAOperator ID - NSUVAGIYA Lab Interpretation Normal (test code = 90394-7) [facility] Hospital[facility]esium2022-03-17 04:25:58 Test Item Value Reference Range Interpretation Comments Magnesium (test code 1.8 mg/dL 1.5-3.0 = 00137-8) HONG (test code = HONG) Pharmaceutical Analyst ID - NSUVAGIYAOperator ID - NSUVAGIYAOperator ID - NSUVAGIYAOperator ID - NSUVAGIYA Lab Interpretation Normal (test code = 94720-5) [facility] HospitalMAGNESIUM2022-03-17 04:25:58 Test Item Value Reference Range Interpretation Comments MAGNESIUM (BEAKER) (test code = 1.8 mg/dL 1.5-3.0 627) Pharmaceutical Analyst ID - NSUVAGIYAOperator ID - NSUVAGIYAOperator ID - NSUVAGIYAOperator ID - NSUVAGIYABASIC METABOLIC WFPDG2506-15-63 04:25:05 Test Item Value Reference Range Interpretation [...] S NOT APPLICABLE FOR DIALYSIS PATIEN TS. Pharmaceutical Analyst ID - NSUVAGIYAOperator ID - NSUVAGIYAOperator ID - NSUVAGIYAOperator ID - NSUVAGIYAOperatorID - NSUVAGIYAOperator ID - NSUVAGIYAOperator ID - NSUVAGIYAOperator ID - NSUVAGIYAOperator ID - NSUVAGIYAOperator ID - NSUVAGIYA Iyojcaypau9675-54-17 04:23:13 Test Item Value Reference Range Interpretation Comments Phosphorus (test code = 3.5 mg/dL 2.5-4.5 2777-1) HONG (test code = HONG) Pharmaceutical Analyst ID - NSUVAGIYA Lab Interpretation (test Normal code = 82312-0) [facility]osphorus2022-03-17 04:23:13 Test Item Value Reference Range Interpretation Comments Phosphorus (test code = 3.5 mg/dL 2.5-4.5 2777-1) HONG (test code = HONG) Pharmaceutical Analyst ID - NSUVAGIYA Lab Interpretation (test Normal code = 16627-5) [facility] HospitalPHOSPHORUS2022-03-17 04:23:13 Test Item Value Reference Range Interpretation Comments PHOSPHORUS (BEAKER) (test code = 3.5 mg/dL 2.5-4.5 604) Pharmaceutical Analyst ID - NSUVAGIYAPROTHROMBIN TIME/[id number] 04:18:34 Test Item Value Reference Range Interpretation Comments PROTIME (BEAKER) 14.9 seconds 9.3-12.0 H Final Infor mation (test code = 759) (Auto Outp ut) INR (BEAKER) (test 1.39 See_Comment Final Inf ormation code = 370) (Auto Output) [Automated mess age] The system [employer] generated this result transmitted ref erence range: <=5.90. The reference range was not used to int erpret this result as normal/abnormal . RECOMMENDED COUMADIN/WARFARIN INR THERAPY RANGESSTANDARD DOSE: 2.0 - 3.0 Includes: PROPHYLAXIS for venous thrombosis, systemic embolization; TREATMENT for venous thrombosis and/or pulmonary embolus.HIGH RISK: Target INR is 2.5-3.5 for patients with mechanical heart valves.CBC W/PLT COUNT & AUTO [id number] 04:14:40 Test Item Value Reference Range Interpretation [...] (BEAKER) (test code = 2801) Prepare Leuko-Red [id number] 23:54:00 Test Item Value Reference Range Interpretation Comments CROSSMATCH (test code = 2264) COMPATIBLE Unit ABO (test code = O Pos 8176229) UNIT NUMBER (test code = [id number] 934-0) Status (test code = 6602400) TX_TIMEINCHART Blood Bank Product (test code RED BLOOD CELLS = 2263) PRODUCT CODE (test code = T2364K17 933-2) [facility] HospitalPrepare Leuko-Red [id number] 23:54:00 Test Item Value Reference Range Interpretation Comments CROSSMATCH (test code = 2264) COMPATIBLE Unit ABO (test code = O Pos 0448720) UNIT NUMBER (test code = [id number] 934-0) Status (test code = 8136555) TX_TIMEINCHART Blood Bank Product (test code RED BLOOD CELLS = 2263) PRODUCT CODE (test code = V5539E19 933-2) [facility] HospitalPOCT-GLUCOSE [id number] 20:34:46 Test Item Value Reference Range Interpretation Comments POC-GLUCOSE METER 103 mg/dL 70-110 : TESTED A T [address] [address] (BEAKER) (test code [facility] [address], = 1538) [facility] [address]: Pharmaceutical Analyst/Techni thang ID = [id number] for Lyn Rincon POCT-GLUCOSE KOAPD6697-87-42 16:09:35 Test Item Value Reference Range Interpretation Comments POC-GLUCOSE METER 83 mg/dL 70-110 : Notified RN/MD: TESTED (BEAKER) (test code = [address]) [place] [address]: Pharmaceutical Analyst/Techni thang ID = [id number] for Michael h, Lorita POCT-GLUCOSE YXFGZ2092-22-55 12:51:37 Test Item Value Reference Range Interpretation Comments POC-GLUCOSE METER 96 mg/dL 70-110 : Notified RN/MD: TESTED (BEAKER) (test code = [address]) [place] [address]: Pharmaceutical Analyst/Techni thang ID = [id number] for Michael h, Lorita POCT-GLUCOSE TAWDC8543-00-41 08:09:55 Test Item Value Reference Range Interpretation Comments POC-GLUCOSE METER 73 mg/dL 70-110 : Notified RN/MD: TESTED (BEAKER) (test code = [address]) [place] [address]: Pharmaceutical Analyst/Techni thang ID = [id number] for Michael h, Lorita BASIC METABOLIC [id number] 04:38:00 Test Item Value Reference Range Interpretation [...] S NOT APPLICABLE FOR DIALYSIS PATIEN TS. Pharmaceutical Analyst ID - TLUI96Kroowdcn ID - QIRA47Kkghgaol ID - SWNN89Wszgzpey ID - TESJ67Oipeyais ID - KZQW52Dukrzafe ID - CXHS04Yegezvng ID - OJVD52Xovtlggb ID - ARYX81Qtcbhgcq ID - VRZG01Wxdbwdkq ID - LPDH01UECWGQAAL3873-17-02 04:32:32 Test Item Value Reference Range Interpretation Comments MAGNESIUM (BEAKER) (test code = 2.5 mg/dL 1.5-3.0 627) Pharmaceutical Analyst ID - QWUF61Wgyygayk ID - LUCU76Lmgsqhqp ID - THWS69Xjqkgtpc ID - ZNMP04 WWWJINYXJF5704-25-97 04:29:33 Test Item Value Reference Range Interpretation Comments PHOSPHORUS (BEAKER) (test code = 4.1 mg/dL 2.5-4.5 604) Pharmaceutical Analyst ID - [id number] TIME/[id number] 04:25:29 Test Item Value Reference Range Interpretation Comments PROTIME (BEAKER) 15.6 seconds 9.3-12.0 H Final Infor mation (test code = 759) (Auto Outp ut) INR (BEAKER) (test 1.46 See_Comment Final Inf ormation code = 370) (Auto Output) [Automated mess age] The system [employer] generated this result transmitted ref erence range: <=5.90. The reference range was not used to int erpret this result as normal/abnormal . RECOMMENDED COUMADIN/WARFARIN INR THERAPY RANGESSTANDARD DOSE: 2.0 - 3.0 Includes: PROPHYLAXIS for venous thrombosis, systemic embolization; TREATMENT for venous thrombosis and/or pulmonary embolus.HIGH RISK: Target INR is 2.5-3.5 for patients with mechanical heart valves.CBC W/PLT COUNT & AUTO [id number] 04:17:28 Test Item Value Reference Range Interpretation [...] H PERCENT (BEAKER) (test code = 2801) Wfkdtvyhn1392-91-16 21:18:05 Test Item Value Reference Range Interpretation Comments Potassium (test code = 4.3 meq/L 3.6-5.5 2823-3) HONG (test code = HONG) Pharmaceutical Analyst ID - JUSTINOperator ID - JUSTINOperator ID - JUSTINOperator ID - JIM Lab Interpretation Normal (test code = 45261-9) [facility] HospitalPotassium2022-03-15 21:18:05 Test Item Value Reference Range Interpretation Comments Potassium (test code = 4.3 meq/L 3.6-5.5 2823-3) HONG (test code = HONG) Pharmaceutical Analyst ID - JUSTINOperator ID - JUSTINOperator ID - JUSTINOperator ID - JIM Lab Interpretation Normal (test code = 37917-8) [facility] HospitalPOTASSIUM2022-03-15 21:18:05 Test Item Value Reference Range Interpretation Comments POTASSIUM (BEAKER) (test code = 4.3 meq/L 3.6-5.5 379) Pharmaceutical Analyst ID - JUSTINOperator ID - JUSTINOperator ID - JUSTINOperator ID - JIM POCT-GLUCOSE [id number] 21:06:17 Test Item Value Reference Range Interpretation Comments POC-GLUCOSE METER 80 mg/dL 70-110 : TESTED A T [address] (BEAKER) (test code = [address]) [place] [address]: Pharmaceutical Analyst/Techni thang ID = [id number] for Prov ost, Carmen POCT-GLUCOSE [id number] 18:24:01 Test Item Value Reference Range Interpretation Comments POC-GLUCOSE METER 89 mg/dL 70-110 : TESTED A T [address] (BEAKER) (test code = [address]) [place] [address]: Pharmaceutical Analyst/Techni thang ID = [id number] for Ali, Rachell Onbaszrbpelc1519-09-55 13:18:58 Test Item Value Reference Range Interpretation Comments Sodium (test code = 139 meq/L 424-961 8773-2) Potassium (test code = 4.3 meq/L 3.6-5.5 2823-3) Chloride (test code = 100 meq/L 98-106 5-0) CO2 (test code = 27 meq/L -29 2027-9) HONG (test code = HONG) Pharmaceutical Analyst ID - DSENSONOperator ID - DSENSONOperator ID - DSENSONOperator ID - DSENSONOperator ID - DSENSONOperator ID - DSENSONOperator ID - DSENSON Lab Interpretation Normal (test code = 63800-6) [facility] HospitalHcvrguPixqnqwthjtq9548-26-08 13:18:58 Test Item Value Reference Range Interpretation Comments Sodium (test code = 139 meq/L 832-568 1276-2) Potassium (test code = 4.3 meq/L 3.6-5.5 2823-3) Chloride (test code = 100 meq/L 98-106 2075-0) CO2 (test code = 27 meq/L 2027-9) HONG (test code = HONG) Pharmaceutical Analyst ID - DSENSONOperator ID - DSENSONOperator ID - DSENSONOperator ID - DSENSONOperator ID - DSENSONOperator ID - DSENSONOperator ID - DSENSON Lab Interpretation Normal (test code = 18613-9) [facility] HospitalYqsnrlBNCFPJYSDVDC9160-27-19 13:18:58 Test Item Value Reference Range Interpretation Comments SODIUM (BEAKER) (test code = 381) 139 meq/L 135-148 POTASSIUM (BEAKER) (test code = 4.3 meq/L 3.6-5.5 379) CHLORIDE (BEAKER) (test code = 382) 100 meq/L 98-106 CO2 (BEAKER) (test code = 355) 27 meq/L Pharmaceutical Analyst ID - DSENSONOperator ID - DSENSONOperator ID - DSENSONOperator ID - DSENSONOperator ID - DSENSONOperator ID - DSENSONOperator ID - [id number], free 2021-04-22 12:27:20 Test Item Value Reference Range Interpretation Comments Free T4 (test code = 1.81 ng/dL 0.90-1.80 H 3024-7) HONG (test code = HONG) Pharmaceutical Analyst ID - [id number] Lab Interpretation (test Abnormal code = 24233-5) [facility], cswq8342-50-60 12:27:20 Test Item Value Reference Range Interpretation Comments Free T4 (test code = 1.81 ng/dL 0.90-1.80 H 3024-7) HONG (test code = HONG) Pharmaceutical Analyst ID - [id number] Lab Interpretation (test Abnormal code = 71205-6) [place] [address], [id number] 12:27:20 Test Item Value Reference Range Interpretation Comments FREE T4 (BEAKER) (test code = 655) 1.81 ng/dL 0.90-1.80 H Pharmaceutical Analyst ID - [id number]-DHPRSHS YCALZ4959-83-94 12:14:32 Test Item Value Reference Range Interpretation Comments POC-GLUCOSE METER 90 mg/dL 70-110 : TESTED A T [address] (BEAKER) (test code = [address]) [place] [address]: Pharmaceutical Analyst/Techni thang ID = [id number] for Rachell Qiu ABORH, fqxzoh6524-71-01 10:10:00 Test Item Value Reference Range Interpretation Comments ABO Grouping (test code = 2588) O TUBES Rh Factor (test code = 2589) POS TUBES [facility] HospitalABORH, efcmti0009-96-44 10:10:00 Test Item Value Reference Range Interpretation Comments ABO Grouping (test code = 2588) O TUBES Rh Factor (test code = 2589) POS TUBES [facility] HospitalType and screen, qaspflbpu2449-53-62 09:06:00 Test Item Value Reference Range Interpretation Comments ABO/RH AUTOMATED (BEAKER) (test O POSITIVE echo code = 2260) Ab Scrn (test code = 890-4) NEGATIVE echo [facility] HospitalType and screen, twgnxjanh1937-25-32 09:06:00 Test Item Value Reference Range Interpretation Comments ABO/RH AUTOMATED (BEAKER) (test O POSITIVE echo code = 2260) Ab Scrn (test code = 890-4) NEGATIVE echo [facility] [id number] 08:23:21 Test Item Value Reference Range Interpretation Comments POC-GLUCOSE METER 88 mg/dL 70-110 : TESTED A T [facility] [address] (BEAKER) (test code = [address]) [place] [id number]: Pharmaceutical Analyst/Techni thang ID = [id number] for Rachell Qiu POCT-GLUCOSE [id number] 05:48:10 Test Item Value Reference Range Interpretation Comments POC-GLUCOSE METER 72 mg/dL 70-110 : TESTED A T [address] (BEAKER) (test code = [address]) [place] [id number]: Pharmaceutical Analyst/Techni thang ID = [id number] for Scal es, Jatina BASIC METABOLIC [id number] 04:19:26 Test Item Value Reference Range Interpretation [...] S NOT APPLICABLE FOR DIALYSIS PATIEN TS. Pharmaceutical Analyst ID - [id number] ID - [id number] ID - [id number] ID - [id number] ID - [id number] ID - [id number] ID - [id number] ID - [id number] ID - [id number] ID - [id number] Hepatic function [id number] 04:19:15 Test Item Value Reference Range Interpretation Comments Protein, Total (test 6.3 See_Comment [Autom ated code = 2885-2) message] The system which generated this result transmit mitzi reference range : 6.0 - 8.5 gm/dL . The reference range was not u sed to interpret th is result as normal/abnormal . Albumin (test code = 3.0 g/dL 3.5-5.0 L 88334-7) Total Bilirubin (test 0.9 mg/dL 0.1-1.2 code = 1975-2) Bilirubin, Direct 0.5 mg/dL 0.0-0.4 H (test code = 1968-7) Alkaline Phosphatase 99 U/L 30-115 (test code = 6768-6) AST (test code = 548 U/L 5-40 H 1920-8) ALT (test code = 535 U/L 5-50 H 1742-6) HONG (test code = HONG) Pharmaceutical Analyst ID - [id number] r ID - [id number] r ID - [id number] r ID - [id number] r ID - [id number] r ID - [id number] r ID - [id number] Lab Interpretation Abnormal (test code = 53931-1) [facility]Hep[facility] function [id number] 04:19:15 Test Item Value Reference Range Interpretation Comments Protein, Total (test 6.3 See_Comment [Autom ated code = 2885-2) message] The system which generated this result transmit mitzi reference range : 6.0 - 8.5 gm/dL . The reference range was not u sed to interpret th is result as normal/abnormal . Albumin (test code = 3.0 g/dL 3.5-5.0 L 02066-1) Total Bilirubin (test 0.9 mg/dL 0.1-1.2 code = 1974-2) Bilirubin, Direct 0.5 mg/dL 0.0-0.4 H (test code = 1967-7) Alkaline Phosphatase 99 U/L 30-115 (test code = 6768-6) AST (test code = 548 U/L 5-40 H 1920-8) ALT (test code = 535 U/L 5-50 H 1742-6) HONG (test code = HONG) Pharmaceutical Analyst ID - [id number] r ID - [id number] r ID - [id number] r ID - [id number] r ID - [id number] r ID - [id number] r ID - [id number] Lab Interpretation Abnormal (test code = 66558-6) [facility]HEPATIC FUNCTION [id number] 04:19:15 Test Item Value Reference Range Interpretation [...] code = 535 U/L 5-50 H 347) Pharmaceutical Analyst ID - [id number] ID - [id number] ID - [id number] ID - [id number] ID - [id number] ID - [id number] ID - [id number] [id number] 04:15:58 Test Item Value Reference Range Interpretation Comments MAGNESIUM (BEAKER) (test code = 3.5 mg/dL 1.5-3.0 H 627) Pharmaceutical Analyst ID - [id number] ID - [id number] ID - [id number] ID - [id number] W/PLT COUNT & AUTO [id number] 04:12:53 Test Item Value Reference Range Interpretation [...] 0-0 PERCENT (BEAKER) (test code = 2801) [id number] 04:12:26 Test Item Value Reference Range Interpretation Comments PHOSPHORUS (BEAKER) (test code = 4.6 mg/dL 2.5-4.5 H 604) Pharmaceutical Analyst ID - [id number] TIME/PNZ3694-39-64 04:08:49 Test Item Value Reference Range Interpretation Comments PROTIME (BEAKER) 21.5 seconds 9.3-12.0 H Final Infor mation (test code = 759) (Auto Outp ut) INR (BEAKER) (test 2.06 See_Comment Final Inf ormation code = 370) (Auto Output) [Automated mess age] The system [employer] generated this result transmitted ref erence range: <=5.90. The reference range was not used to int erpret this result as normal/abnormal . RECOMMENDED COUMADIN/WARFARIN INR THERAPY RANGESSTANDARD DOSE: 2.0 - 3.0 Includes: PROPHYLAXIS for venous thrombosis, systemic embolization; TREATMENT for venous thrombosis and/or pulmonary embolus.HIGH RISK: Target INR is 2.5-3.5 for patients with mechanical heart valves.POCT-GLUCOSE [id number] 23:24:09 Test Item Value Reference Range Interpretation Comments POC-GLUCOSE METER 73 mg/dL 70-110 : TESTED A T [address] (BEAKER) (test code = [address], [address]) [facility] [address]: Pharmaceutical Analyst/Techni thang ID = [id number] for Arash Oden BASIC METABOLIC [id number] 21:51:40 Test Item Value Reference Range Interpretation [...] S NOT APPLICABLE FOR DIALYSIS PATIEN TS. Pharmaceutical Analyst ID - [id number] ID - [id number] ID - [id number] ID - [id number] ID - [id number] ID - [id number] ID - [id number] ID - [id number] ID - [id number] ID - [id number] ID - [id number] ID - [id number] ID - [id number] gas, xqtybvfq0042-67-99 21:11:46 Test Item Value Reference Range Interpretation Comments pH, Arterial (test code 7.51 7.35-7.45 H = 2744-1) pCO2, Arterial (test 36 See_Comment [Autom ated message] code = 2019-8) The system [employer] generated this result transmit mitzi reference range : 35 - 45 mm Hg. The reference range was not used to interpret this result as normal/abnormal . pO2, Arterial (test 120 See_Comment H [Automa mitzi message] code = 2703-7) The system [employer] generated this result transmit mitzi reference range [...] 28 Lab Interpretation Abnormal (test code = 24698-9) [facility] HospitalBlood gas, rbsdvmng8681-73-61 21:11:46 Test Item Value Reference Range Interpretation Comments pH, Arterial (test code 7.51 7.35-7.45 H = 2744-1) pCO2, Arterial (test 36 See_Comment [Autom ated message] code = 2019) The system [employer] generated this result transmit mitzi reference range : 35 - 45 mm Hg. The reference range was not used to interpret this result as normal/abnormal . pO2, Arterial (test 120 See_Comment H [Automa mitzi message] code = 2703-7) The system [facility] generated this result transmit mitzi reference range [...] 28 Lab Interpretation Abnormal (test code = 84810-7) [facility] HospitalBLOOD GAS, [id number] 21:11:46 Test Item Value Reference Range Interpretation [...] FIO2 (BEAKER) (test code = 1819) 28.0 [id number] 19:36:01 Test Item Value Reference Range Interpretation Comments MAGNESIUM (BEAKER) (test code = 2.7 mg/dL 1.5-3.0 627) Pharmaceutical Analyst ID - [id number] ID - [id number] ID - [id number] ID - [id number] 19:33:19 Test Item Value Reference Range Interpretation Comments PHOSPHORUS (BEAKER) (test code = 4.5 mg/dL 2.5-4.5 604) Pharmaceutical Analyst ID - [id number] 19:27:00 Test Item Value Reference Range Interpretation Comments Albumin (test code = 3.4 g/dL 3.5-5.0 L 74209-9) HONG (test code = HONG) Pharmaceutical Analyst ID - [id number] Lab Interpretation (test Abnormal code = 08871-8) [facility] HospitalAlbumin2022-03-14 19:27:00 Test Item Value Reference Range Interpretation Comments Albumin (test code = 3.4 g/dL 3.5-5.0 L 49540-9) HONG (test code = HONG) Pharmaceutical Analyst ID - [id number] Lab Interpretation (test Abnormal code = 14224-5) [facility] HospitalALBUMIN2022-03-14 19:27:00 Test Item Value Reference Range Interpretation Comments ALBUMIN (BEAKER) (test code = 1145) 3.4 g/dL 3.5-5.0 L Pharmaceutical Analyst ID - [id number] METABOLIC [id number] 18:44:23 Test Item Value Reference Range Interpretation [...] S NOT APPLICABLE FOR DIALYSIS PATIEN TS. Pharmaceutical Analyst ID - [id number] ID - [id number] ID - [id number] ID - [id number] ID - [id number] ID - [id number] ID - [id number] ID - [id number] ID - [id number] ID - [id number] ID - [id number] ID - [id number] ID - [id number] 2021-04-21 18:11:25 Test Item Value Reference Range Interpretation Comments TSH (test code = 30.010 See_Comment H [Automated 95012-7) message] The system which generated this result transmit mitzi reference range : 0.350 - 5.500 uIU/mL. The reference range was not used to interpret this result as normal/abnormal . HONG (test code = HONG) Pharmaceutical Analyst ID - [id number] Lab Interpretation Abnormal (test code = 78771-1) [facility] HospitalTSH20[facility] 18:11:25 Test Item Value Reference Range Interpretation Comments TSH (test code = 30.010 See_Comment H [Automated 48276-9) message] The system which generated this result transmit mitzi reference range : 0.350 - 5.500 uIU/mL. The reference range was not used to interpret this result as normal/abnormal . HONG (test code = HONG) Pharmaceutical Analyst ID - [id number] Lab Interpretation Abnormal (test code = 47338-5) [facility]TSH[facility] 18:11:25 Test Item Value Reference Range Interpretation Comments THYROID STIMULATING HORMONE 30.010 uIU/mL 0.350-5.500 H (BEAKER) (test code = 772) Pharmaceutical Analyst ID - [id number] GAS, [id number] 13:46:55 Test Item Value Reference Range Interpretation [...] 1819) 28.0 Urinalysis w/Microscopic + Reflex to Eatjanl1046-69-11 13:39:28 Test Item Value Reference Range Interpretation Comments Color, UA (test code = Yellow 5778-6) Clarity, UA (test code Clear = 5767-9) Specific Hay, UA 1.015 1.001-1.035 (test code = 5811-5) pH, UA (test code = 7.0 5.0-8.0 5803-2) Protein, UA (test code Trace Negative A = 21534-7) Glucose, UA (test code Negative Negative = 365) Ketones, UA (test code Negative Negative = 2514-8) Bilirubin, UA (test Negative Negative code = 33493-3) Blood, UA (test code = Small Negative A 93295-7) Nitrite, UA (test code Negative Negative = 5802-4) Leukocytes, UA (test Negative Negative code = 5799-2) Urobilinogen, UA (test 0.2 mg/dL 0.2-1.0 code = 60785-4) Bacteria, UA (test code Occasional = 06940-6) RBC, UA (test code = 5-10 See_Comment [Autom ated message] 799-7) The system [employer] generated this result transmit mitzi reference range : /HPF. The refer ence range was not u sed to interpret th is result as normal/abnormal . WBC, UA (test code = 5-10 See_Comment [Autom ated message] 76309-3) The system [employer] generated this result transmit mitzi reference range : /HPF. The refer ence range was not u sed to interpret th is result as normal/abnormal . SQUAMOUS EPITHELIAL <5 See_Comment [Automa mitzi message] (test code = 75941-0) The sy stem which generated this result transmit mitzi reference range : /HPF. The refer ence range was not u sed to interpret th is result as normal/abnormal . Specimen Source (test code = 2795) Lab Interpretation Abnormal (test code = 78783-1) [facility] HospitalUrinalysis w/Microscopic + Reflex to Culture 2021-04-21 13:39:28 Test Item Value Reference Range Interpretation Comments Color, UA (test code = Yellow 5778-6) Clarity, UA (test code Clear = 5767-9) Specific Hay, UA 1.015 1.001-1.035 (test code = 5811-5) pH, UA (test code = 7.0 5.0-8.0 5803-2) Protein, UA (test code Trace Negative A = 51067-2) Glucose, UA (test code Negative Negative = 365) Ketones, UA (test code Negative Negative = 2514-8) Bilirubin, UA (test Negative Negative code = 45826-4) Blood, UA (test code = Small Negative A 04352-2) Nitrite, UA (test code Negative Negative = 5802-4) Leukocytes, UA (test Negative Negative code = 5799-2) Urobilinogen, UA (test 0.2 mg/dL 0.2-1.0 code = 94060-9) Bacteria, UA (test code Occasional = 46853-4) RBC, UA (test code = 5-10 See_Comment [Autom ated message] 799-7) The system [employer] generated this result transmit mitzi reference range : /HPF. The refer ence range was not u sed to interpret th is result as normal/abnormal . WBC, UA (test code = 5-10 See_Comment [Autom ated message] 74077-7) The system [employer] generated this result transmit mitzi reference range : /HPF. The refer ence range was not u sed to interpret th is result as normal/abnormal . SQUAMOUS EPITHELIAL <5 See_Comment [Automa mitzi message] (test code = 27972-7) The sy stem which generated this result transmit mitzi reference range : /HPF. The refer ence range was not u sed to interpret th is result as normal/abnormal . Specimen Source (test code = 2795) Lab Interpretation Abnormal (test code = 16827-9) [facility]URINALYSIS W/ REFLEX URINE [id number] 13:39:28 Test Item Value Reference Range Interpretation [...] SOURCE(BEAKER) (test code = 2795) Sodium, random spssi8185-06-56 13:39:05 Test Item Value Reference Range Interpretation Comments Sodium Urine (test 141 meq/L code = 2955-3) HONG (test code = Reference Range: No HONG) NormalsOperator ID - [id number] [facility] Centerodium, random fdupt3737-92-98 13:39:05 Test Item Value Reference Range Interpretation Comments Sodium Urine (test 141 meq/L code = 2955-3) HONG (test code = Reference Range: No HONG) NormalsOperator ID - [id number] [facility] CenterODIUM, RANDOM MYCOK4469-63-88 13:39:05 Test Item Value Reference Range Interpretation Comments SODIUM URINE (BEAKER) (test code = 141 meq/L 243) Reference Range: No NormalsOperator ID - [id number] TIME/LLN3731-69-64 13:31:38 Test Item Value Reference Range Interpretation Comments PROTIME (BEAKER) 32.6 seconds 9.3-12.0 H Final Infor mation (test code = 759) (Auto Outp ut) INR (BEAKER) (test 3.23 See_Comment Final Inf ormation code = 370) (Auto Output) [Automated mess age] The system [employer] generated this result transmitted ref erence range: <=5.90. The reference range was not used to int erpret this result as normal/abnormal . RECOMMENDED COUMADIN/WARFARIN INR THERAPY RANGESSTANDARD DOSE: 2.0 - 3.0 Includes: PROPHYLAXIS for venous thrombosis, systemic embolization; TREATMENT for venous thrombosis and/or pulmonary embolus.HIGH RISK: Target INR is 2.5-3.5 for patients with mechanical heart valves.Troponin [id number] 13:31:31 Test Item Value Reference Range Interpretation Comments Troponin I (test code = 0.26 ng/mL 0.00-0.15 05476-6) HONG (test code = HONG) Troponin I [...] acidosis, acute neurological disease, and persistent tachyarrhythmia.[facility] ID - [id number] Lab Interpretation (test Abnormal code = 43533-5) [facility] [id number] 13:31:31 Test Item Value Reference Range Interpretation Comments Troponin I (test code = 0.26 ng/mL 0.00-0.15 85105-3) HONG (test code = HONG) Troponin I [...] failure, acidosis, acute neurological disease, and persistent tachyarrhythmia.[facility] ID - [id number] Lab Interpretation (test Abnormal code = 10354-5) [facility] [id number] 13:31:31 Test Item Value Reference Range Interpretation [...] failure, acidosis, acute neurological disease, and persistent tachyarrhythmia.Pharmaceutical Analyst ID - [id number] Echo W/Doppler(CW/PW/Color)2021-04-21 13:28:30Ejection FractionSLEH ECHO HEARTLAB [facility]2D Echo W/Doppler(CW/PW/Color) 2021-04-21 13:28:30Ejection FractionSLEH ECHO [facility]ARTLAB [facility] HospitalBASIC METABOLIC PPYVX9715-00-13 13:17:15 Test Item Value Reference Range Interpretation [...] S NOT APPLICABLE FOR DIALYSIS PATIEN TS. Pharmaceutical Analyst ID - [id number] ID - [id number] ID - [id number] ID - [id number] ID - [id number] ID - [id number] ID - [id number] ID - [id number] ID - [id number] ID - [id number] MMJEUKLMV0188-00-93 13:16:32 Test Item Value Reference Range Interpretation Comments MAGNESIUM (BEAKER) (test code = 1.6 mg/dL 1.5-3.0 627) Pharmaceutical Analyst ID - [id number] ID - [id number] ID - [id number] ID - [id number] acid, pdehis5687-65-58 13:14:34 Test Item Value Reference Range Interpretation Comments Lactate, Venous (test code 7.59 mmol/L 0.50-2.00 HH = 2872) HONG (test code = HONG) Pharmaceutical Analyst ID - [id number] ID - [id number] ID - [id number] ID - [id number] Lab Interpretation (test Abnormal code = 09566-0) [facility] HospitalLactic acid, brbdux0258-38-53 13:14:34 Test Item Value Reference Range Interpretation Comments Lactate, Venous (test code 7.59 mmol/L 0.50-2.00 HH = 2872) HONG (test code = HONG) Pharmaceutical Analyst ID - [id number] ID - [id number] ID - [id number] ID - [id number] Lab Interpretation (test Abnormal code = 17405-1) [facility] CenterLACT[facility] ACID, GCQOUH2315-87-00 13:14:34 Test Item Value Reference Range Interpretation Comments LACTATE BLOOD 7.59 mmol/L See_Comment HH [Automated me ssage] VENOUS (2) (BEAKER) The syst em which (test code = 2872) generated this result transmitted ref erence range: 0.50-<2. 00. The reference range was not used to interpr et this result as normal/abnormal . Pharmaceutical Analyst ID - [id number] ID - [id number] ID - [id number] ID - ALUOS709FEQFWAORAF2307-40-74 13:13:56 Test Item Value Reference Range Interpretation Comments PHOSPHORUS (BEAKER) (test code = 6.3 mg/dL 2.5-4.5 H 604) Pharmaceutical Analyst ID - [id number]-HUYJRFF NCWWY9274-92-94 13:06:53 Test Item Value Reference Range Interpretation Comments POC-GLUCOSE METER 82 mg/dL 70-110 : TESTED A T [facility] [address] (BEAKER) (test code = [address]) [facility] [address]: Pharmaceutical Analyst/Techni thang ID = [id number] for Ali, Rachell CBC W/PLT COUNT & AUTO [id number] 13:00:05 Test Item Value Reference Range Interpretation [...] PERCENT (BEAKER) (test code = 2801) T4, UBNX4554-97-63 11:11:17 Test Item Value Reference Range Interpretation Comments FREE T4 (BEAKER) (test code = 655) 0.94 ng/dL 0.90-1.80 Pharmaceutical Analyst ID - [id number]/Free T4 If Ywuttadlc2846-30-47 11:10:10 Test Item Value Reference Range Interpretation Comments TSH (test code = 105.470 See_Comment H [Automated 24831-6) message] The system which generated this result transmit mitzi reference range : 0.350 - 5.500 uIU/mL. The reference range was not used to interpret this result as normal/abnormal . HONG (test code = HONG) Pharmaceutical Analyst ID - [id number] r ID - [id number] Lab Interpretation Abnormal (test code = 83043-8) [facility] HospitalTS/Free T4 If Leeesnafi7080-40-53 11:10:10 Test Item Value Reference Range Interpretation Comments TSH (test code = 105.470 See_Comment H [Automated 62561-6) message] The system which generated this result transmit mitzi reference range : 0.350 - 5.500 uIU/mL. The reference range was not used to interpret this result as normal/abnormal . HONG (test code = HONG) Pharmaceutical Analyst ID - [id number] r ID - [id number] Lab Interpretation Abnormal (test code = 57006-4) [facility]/FREE T4 IF FGZMSALME8736-63-75 11:10:10 Test Item Value Reference Range Interpretation Comments THYROID STIMULATING HORMONE 105.470 uIU/mL 0.350-5.500 H (BEAKER) (test code = 772) Pharmaceutical Analyst ID - [id number] ID - [id number]-zhogo2206-48-85 10:40:09 Test Item Value Reference Range Interpretation Comments D-Dimer, Quant (test 18.22 See_Comment H Final I nformation code = 49292-0) (Auto Output ) [Automated message] The system which generated this result transmitted reference range : <0.50 MG/L FEU. The reference range was not used to interpr et this result as normal/abnormal . HONG (test code = REGARDING D-DIMER HONG) RESULTS: The 98% NPV (Negative Predictive Value) for DVT/PE exclusion is 0.50 mg/L FEU as suggested by the leach tank tender and as approved by the FDA. Lab Interpretation Abnormal (test code = 33147-1) [facility] HospitalD-omqtq8237-09-01 10:40:09 Test Item Value Reference Range Interpretation Comments D-Dimer, Quant (test 18.22 See_Comment H Final I nformation code = 74915-8) (Auto Output ) [Automated message] The system which generated this result transmitted reference range : <0.50 MG/L FEU. The reference range was not used to interpr et this result as normal/abnormal . HONG (test code = REGARDING D-DIMER HONG) RESULTS: The 98% NPV (Negative Predictive Value) for DVT/PE exclusion is 0.50 mg/L FEU as suggested by the leach tank tender and as approved by the FDA. Lab Interpretation Abnormal (test code = 83833-8) [facility] CenterD-RDUAW0124-77-79 10:40:09 Test Item Value Reference Range Interpretation Comments D-DIMER QUANTITATIVE 18.22 MG/L FEU <0.50 H Final Information (BEAKER) (test code = (Auto Output) 671) REGARDING D-DIMER RESULTS: The 98% NPV (Negative Predictive Value) for DVT/PE exclusion is 0.50 mg/LFEU as suggested by the leach tank tender and as approved by the FDA.PROTHROMBIN TIME/KFE3553-37-16 10:35:43 Test Item Value Reference Range Interpretation Comments PROTIME (BEAKER) 31.4 seconds 9.3-12.0 H Final Infor mation (test code = 759) (Auto Outp ut) INR (BEAKER) (test 3.10 See_Comment Final Inf ormation code = 370) (Auto Output) [Automated mess age] The system [employer] generated this result transmitted ref erence range: <=5.90. The reference range was not used to int erpret this result as normal/abnormal . RECOMMENDED COUMADIN/WARFARIN INR THERAPY RANGESSTANDARD DOSE: 2.0 - 3.0 Includes: PROPHYLAXIS for venous thrombosis, systemic embolization; TREATMENT for venous thrombosis and/or pulmonary embolus.HIGH RISK: Target INR is 2.5-3.5 for patients with mechanical heart valves.TROPONIN Q3737-06-20 10:33:10 Test Item Value Reference Range Interpretation [...] failure, acidosis, acute neurological disease, and persistent tachyarrhythmia.Pharmaceutical Analyst ID - [id number]-ecxg Natriuretic Factor (BNP)2021-04-21 10:32:49 Test Item Value Reference Range Interpretation Comments BNP (test code = 32546-3) 1792 pg/mL 0-100 H HONG (test code = HONG) Pharmaceutical Analyst ID - [id number] Lab Interpretation (test Abnormal code = 66786-2) [facility] Natriuretic Factor (BNP)2021-04-21 10:32:49 Test Item Value Reference Range Interpretation Comments BNP (test code = 56040-9) 1792 pg/mL 0-100 H HONG (test code = HONG) Pharmaceutical Analyst ID - [id number] Lab Interpretation (test Abnormal code = 78696-5) [facility] NATRIURETIC FACTOR (BNP)2021-04-21 10:32:49 Test Item Value Reference Range Interpretation Comments B-TYPE NATRIURETIC PEPTIDE 1792 pg/mL 0-100 H (BEAKER) (test code = 700) Pharmaceutical Analyst ID - [id number] metabolic kjzlc2243-58-67 10:26:05 Test Item Value Reference Range Interpretation Comments Protein, Total (test 7.7 See_Comment [Autom ated code = 2885-2) message] The system which generated this result transmit mitzi reference range : 6.0 - 8.5 gm/dL . The reference range was not u sed to interpret th is result as normal/abnormal . Albumin (test code = 3.6 g/dL 3.5-5.0 18370-4) Alkaline Phosphatase 134 U/L 30-115 H (test code = 6768-6) Total Bilirubin (test 0.9 mg/dL 0.1-1.2 code = 1974-2) Sodium (test code = 138 meq/L 211-599 5294-2) Potassium (test code 7.5 meq/L 3.6-5.5 HH = 2823-3) Chloride (test code = 109 meq/L 98-106 H 2074-0) CO2 (test code = 9 meq/L 20-29 LL 2027-10) BUN (test code = 39 mg/dL 10-26 H 3094-0) Creatinine (test code 2.33 mg/dL 0.50-1.20 H = 2160-0) Glucose (test code = 74 mg/dL 70-110 2345-7) Calcium (test code = 9.3 mg/dL 8.5-10.5 38188-3) AST (test code = 162 U/L 5-40 H 1920-8) ALT (test code = 136 U/L 5-50 H 1742-6) EGFR (test code = 20 mL/min/1.73 [place] [address]-5) NOT ACCURATE CREATININE CLEARANCE IN PREDICTING GLOMERULAR FILTRATION RATE . ESTIMATED GFR I S NOT APPLICABLE FOR DIALYSIS PATIEN TS. HONG (test code = HONG) Pharmaceutical Analyst ID - [id number] r ID - [id number] r ID - [id number] r ID - [id number] r ID - OSCNU652Uuvadow r ID - OGYHU573Hxewpqt r ID - HJZLE381Wfgardo r ID - DBOYW385Dlccujl r ID - XHDXQ527Tkcccwr r ID - WRWNF162Idjtzxe r ID - WKFZS860Znhhswj r ID - LBGNK517Wxfduxa r ID - YSGHQ914Mfwnecv r ID - VMZOC956Oerildr r ID - NHAAG879Alpfwuv r ID - [id number] Lab Interpretation Abnormal (test code = 89565-0) [facility] [id number] 10:26:05 Test Item Value Reference Range Interpretation Comments Protein, Total (test 7.7 See_Comment [Autom ated code = 2885-2) message] The system which generated this result transmit mitzi reference range : 6.0 - 8.5 gm/dL . The reference range was not u sed to interpret th is result as normal/abnormal . Albumin (test code = 3.6 g/dL 3.5-5.0 56852-9) Alkaline Phosphatase 134 U/L 30-115 H (test code = 6768-6) Total Bilirubin (test 0.9 mg/dL 0.1-1.2 code = 1974-2) Sodium (test code = 138 meq/L 914-922 7635-2) Potassium (test code 7.5 meq/L 3.6-5.5 HH = 2823-3) Chloride (test code = 109 meq/L 98-106 H 2074-0) CO2 (test code = 9 meq/L 20-29 LL 2028-9) BUN (test code = 39 mg/dL 10-26 H 3094-0) Creatinine (test code 2.33 mg/dL 0.50-1.20 H = 2160-0) Glucose (test code = 74 mg/dL 70-110 2345-7) Calcium (test code = 9.3 mg/dL 8.5-10.5 22604-5) AST (test code = 162 U/L 5-40 H 1920-8) ALT (test code = 136 U/L 5-50 H 1742-6) EGFR (test code = 20 mL/min/1.73 [place] [address]-0) NOT ACCURATE CREATININE CLEARANCE IN PREDICTING GLOMERULAR FILTRATION RATE . ESTIMATED GFR I S NOT APPLICABLE FOR DIALYSIS PATIEN TS. HONG (test code = HONG) Pharmaceutical Analyst ID - [id number] r ID - [id number] r ID - [id number] r ID - COQXG589Lqjrnjv r ID - QPTVS834Iaardvq r ID - VRZNE002Maqxzwn r ID - VNHRU304Mcnvvly r ID - FZPKY580Sonqamm r ID - FGDGJ054Tigtoyv r ID - BFJMM493Tzcnmxv r ID - IGIVQ657Tjgmgwt r ID - YSSUS158Gcaaikh r ID - PFUKG288Fmhbsqo r ID - YKZIH364Tbolrkj r ID - GGJJG447Aiesexj r ID - [id number] Lab Interpretation Abnormal (test code = 00321-8) [facility] [id number] 10:26:05 Test Item Value Reference Range Interpretation [...] S NOT APPLICABLE FOR DIALYSIS PATIEN TS. Pharmaceutical Analyst ID - [id number] ID - [id number] ID - DIHSH302Ueuughmz ID - DDLMA882Qrfklyuu ID - BZBHU380Yglgigof ID - KBXDU009Gvgequmg ID - ZBEDF951Dylzicrz ID - ZNSFQ161Zuukyrea ID - KAHRT316Asyadnjl ID - WHWLP982Kjnugspp ID - PSGQO320Wmafsphr ID - RRUWP524Yloqlcdr ID - FLUMI971Hbmxpwcd ID - GKATY995Vlnoxfqi ID - HZYNM875Tlpdarno ID - WFQNT140Rsnsbv 2021-04-21 10:23:20 Test Item Value Reference Range Interpretation Comments Lipase (test code = 57 U/L 6-51 H 3040-3) HONG (test code = HONG) Pharmaceutical Analyst ID - [id number] ID - [id number] ID - PVNJL276Zouheiqu ID - [id number] Lab Interpretation (test Abnormal code = 60093-3) [facility] 10:23:20 Test Item Value Reference Range Interpretation Comments Lipase (test code = 57 U/L 6-51 H 3040-3) HONG (test code = HONG) Pharmaceutical Analyst ID - [id number] ID - [id number] ID - [id number] ID - [id number] Lab Interpretation (test Abnormal code = 33182-4) [facility] 10:23:20 Test Item Value Reference Range Interpretation Comments LIPASE (BEAKER) (test code = 749) 57 U/L 6-51 H Pharmaceutical Analyst ID - [id number] ID - [id number] ID - [id number] ID - [id number] 10:22:24 Test Item Value Reference Range Interpretation Comments MAGNESIUM (BEAKER) (test code = 1.8 mg/dL 1.5-3.0 627) Pharmaceutical Analyst ID - [id number] 10:18:58 Test Item Value Reference Range Interpretation Comments PHOSPHORUS (BEAKER) (test code = 7.0 mg/dL 2.5-4.5 H 604) Pharmaceutical Analyst ID - [id number] ACID, [id number] 10:18:03 Test Item Value Reference Range Interpretation Comments LACTATE BLOOD 11.75 mmol/L See_Comment HH Specimen sligh tly VENOUS (2) (BEAKER) hemolyze d [Automated (test code = 2872) message] The system which generated this result transmit mitzi reference range : 0.50-<2.00. The reference range was not used to int erpret this result as normal/abnormal . Pharmaceutical Analyst ID - [id number] ID - [id number] ID - WPPBI663Ssqqdlpi ID - [id number] W/PLT COUNT & AUTO [id number] 10:04:49 Test Item Value Reference Range Interpretation [...] PERCENT (BEAKER) (test code = 2801) POCT-GLUCOSE [id number] 09:49:13 Test Item Value Reference Range Interpretation Comments POC-GLUCOSE METER 64 mg/dL 70-110 L : TESTED A T [address] (BEAKER) (test code = [address], [address]) [facility] 77 478: Pharmaceutical Analyst/Techni thang ID = [id number] for Ali, Rachell RAD, CHEST, 1 VIEW, NON [id number] 09:45:00Referring: Dr. Jorge Deal for exam:->sobROSANNE [facility]ED[facility]: JORGE A SHERMAN : 1940 Sex: [...] if clinically indicated. Sig kendrick: Yung Humphrey MDReport Verified Date/Time: 04/21/2021 09:45:43 Reading Location: [facility] RadiologyReading Room PTT [id number] 09:52:00 Test Item Value Reference Range Interpretation Comments PTT ACTIVATED (test code = APTT) 53.0 SECONDS 25.1-36.5 H PROTHROMBIN [id number] 05:27:00 Test Item Value Reference Range Interpretation [...] myocar dial infarction. 2.0 - 3.0 3. Web Marketing Manager al prosthesis hear t valves, recurre nt systemic emboli sm. 3.0 - 4.5 PROTHROMBIN [id number] 15:22:00 Test Item Value Reference Range Interpretation Comments PROTHROMBIN TIME 18.0 SECONDS 9.5-12.7 H PATIENT (test code = PTP) INTERNATIONAL NORMAL 1.6 0.86-1.14 H The INR is to be RATIO (test code = used only for INR) monitoring oral anticoagulantth erap y. INDICATION INR VALUE ---- ---- ---- -------1. Prophylaxis, de ep venous thrombos is, including high risk surgery. 2.0 - 3.0 2. Prophylaxis , deep venous thrombosis, hip surgery, treatm ent for deep venous thrombosis or pulmonary prevention of systemic emboli sm in patients wit h valvular heart disease, atrial fibrillation, tissue heart va lve, or acute myocar dial infarction. 2.0 - 3.0 3. Web Marketing Manager al prosthesis hear t valves, recurre nt systemic emboli sm. 3.0 - 4.5 BASIC METABOLIC [id number] 12:35:00 Test Item Value Reference Range Interpretation [...] = 8.0 MG/DL 8.4-10.2 L CA) PTT [id number] 10:39:00 Test Item Value Reference Range Interpretation Comments PTT ACTIVATED (test 66.2 SECONDS 25.1-36.5 HH CALLED T O YETI O & code = APTT) READBACK ON AT 1038 BY Ilan Loo PTT [id number] 09:21:00 Test Item Value Reference Range Interpretation Comments PTT ACTIVATED (test code = APTT) 56.4 SECONDS 25.1-36.5 H Comments to Service Sprinkler Helper: HEPARIN DRIP PROTOCOLPTT [id number] 04:30:00 Test Item Value Reference Range Interpretation Comments PTT ACTIVATED (test code = APTT) 59.0 SECONDS 25.1-36.5 H Comments to Service Sprinkler Helper: HEPARIN DRIP [id number] 04:21:00 Test Item Value Reference Range Interpretation Comments HEMOGLOBIN (test code = HGB) 8.6 G/DL 11.2-14.9 L PTT [id number] 18:42:00 Test Item Value Reference Range Interpretation Comments PTT ACTIVATED (test 64.2 SECONDS 25.1-36.5 HH CALLED T Roseanne ARORAO & code = APTT) READBACK ON AT 1838 BY Marcella Maria PTT [id number] 15:02:00 Test Item Value Reference Range Interpretation Comments PTT ACTIVATED (test code = APTT) 35.5 SECONDS 25.1-36.5 PTT [id number] 09:23:00 Test Item Value Reference Range Interpretation Comments PTT ACTIVATED (test 65.8 SECONDS 25.1-36.5 HH CALLED T O Tristan A & code = APTT) READBACK ON AT 0920 BY Myrna Rosario BASIC METABOLIC [id number] 04:47:00 Test Item Value Reference Range Interpretation [...] 7.7 MG/DL 8.4-10.2 L CA) CBC W/AUTO [id number] 04:36:00 Test Item Value Reference Range Interpretation [...] = 0.00 K/mm3 0.0-0.1 N NRBC#) PTT [id number] 01:53:00 Test Item Value Reference Range Interpretation Comments PTT ACTIVATED (test 89.5 SECONDS 25.1-36.5 HH CALLED T O ALFAUKA EKassandra & code = APTT) READBACK ON AT 0148 BY Min Hope PTT [id number] 16:40:00 Test Item Value Reference Range Interpretation Comments PTT ACTIVATED (test 80.1 SECONDS 25.1-36.5 HH CALLED T O CHRISSY.G code = APTT) & READBACK ON 12/03/20 AT 163 7 BY Marcella Maria PTT [id number] 11:45:00 Test Item Value Reference Range Interpretation Comments PTT ACTIVATED (test 67.8 SECONDS 25.1-36.5 HH CALLED T O CHRISSY G code = APTT) & READBACK ON 12/03/20 AT 114 5 BY Quan Rosario PLATELET [id number] 11:06:00 Test Item Value Reference Range Interpretation Comments PLATELET COUNT (test code = PLT) 187 K/MM3 129-368 N PTT [id number] 04:50:00 Test Item Value Reference Range Interpretation Comments PTT ACTIVATED (test 83.4 SECONDS 25.1-36.5 HH CALLED T O E. WALKER code = APTT) & READBACK ON 12/03/20 AT 045 0 BY Min Aquino PTT [id number] 22:30:00 Test Item Value Reference Range Interpretation Comments PTT ACTIVATED (test code = APTT) 33.1 SECONDS 25.1-36.5 N PROTHROMBIN [id number] 16:22:00 Test Item Value Reference Range Interpretation [...] myocar dial infarction. 2.0 - 3.0 3. Web Marketing Manager al prosthesis hear t valves, recurre nt systemic emboli sm. 3.0 - 4.5 UNABLE TO DRAW BLOOD, REASON: HARDSTICKNOTIFIED PATIENT CARE STAFF: DANILO HARRY 12/02/20 AT 1349 Jennifer ReesT [id number] 16:22:00 Test Item Value Reference Range Interpretation Comments PTT ACTIVATED (test code = APTT) 33.9 SECONDS 25.1-36.5 UNABLE TO DRAW BLOOD, REASON: HARDSTICKNOTIFIED PATIENT CARE STAFF: DANILO HARRY 12/02/20 AT 1349 NegritaAng- XR ABDOMEN [id number] 07:55:00 [facility] : 1940 Sex: F Patient Name: JORGE A SHERMAN Unit No: [id number] EXAMS: CPT CODE: [id number] XR ABDOMEN 2V 02593 EXAMINATION: 2AP supine and upright view(s) of the abdomen [...] follow-up. Electronically Signed by Loc Sagastume MD on at 0755 Reported and signed by: Loc Sagastume MD CC: Joe Higgins MD; Adurey Beltrán MD Technologist: Cheyanne Mirza, RT(R) Transcrpt Date/Tm/Trnsp: 12/02/2020 (0755) [email or web address] Orig Print D/T: S: 12/02/2020 (0758) [facility] NAME: JORGE A SHERMAN [address] PHYS: [place] [address] : 1940 AGE: 80 SEX: F LOC: Z.619 A PHONE #: [phone] EXAM DATE: 12/02/2020 STATUS: ADM IN FAX #: [phone] RADIOLOGY NO: PAGE 1 Signed ReportBASIC METABOLIC [id number] 06:05:00 Test Item Value Reference Range Interpretation [...] 8.1 MG/DL 8.4-10.2 L CA) CBC W/AUTO [id number] 05:59:00 Test Item Value Reference Range Interpretation [...] 0.00 K/mm3 0.0-0.1 N NRBC#) GLUCOSE BEDSIDE [id number] 11:06:00 Test Item Value Reference Range Interpretation Comments GLUCOSE BEDSIDE TESTING (test code 162 MG/DL 60-99 H = GLUBED) GLUCOSE BEDSIDE [id number] 06:19:00 Test Item Value Reference Range Interpretation Comments GLUCOSE BEDSIDE TESTING (test code 197 MG/DL 60-99 H = GLUBED) BASIC METABOLIC [id number] 05:48:00 Test Item Value Reference Range Interpretation [...] 7.8 MG/DL 8.4-10.2 L CA) CBC W/AUTO [id number] 05:31:00 Test Item Value Reference Range Interpretation [...] 0.00 K/mm3 0.0-0.1 N NRBC#) GLUCOSE BEDSIDE [id number] 19:32:00 Test Item Value Reference Range Interpretation Comments GLUCOSE BEDSIDE TESTING (test code 134 MG/DL 60-99 H = GLUBED) GLUCOSE BEDSIDE [id number] 15:53:00 Test Item Value Reference Range Interpretation Comments GLUCOSE BEDSIDE TESTING (test code 119 MG/DL 60-99 H = GLUBED) GLUCOSE BEDSIDE [id number] 11:17:00 Test Item Value Reference Range Interpretation Comments GLUCOSE BEDSIDE TESTING (test code 122 MG/DL 60-99 H = GLUBED) GLUCOSE BEDSIDE [id number] 08:19:00 Test Item Value Reference Range Interpretation Comments GLUCOSE BEDSIDE TESTING (test code = 52 MG/DL 60-99 L GLUBED) GLUCOSE BEDSIDE [id number] 06:18:00 Test Item Value Reference Range Interpretation Comments GLUCOSE BEDSIDE TESTING (test code = 52 MG/DL 60-99 L GLUBED) BASIC METABOLIC [id number] 05:43:00 Test Item Value Reference Range Interpretation [...] 8.4 MG/DL 8.4-10.2 N CA) CBC W/AUTO [id number] 05:28:00 Test Item Value Reference Range Interpretation [...] = 0.00 K/mm3 0.0-0.1 N NRBC#) SMALL [id number] 15:29:00 Test Item Value Reference Range Interpretation Comments SMALL INTESTINE (test code = SMINTEST) RUN DATE: 11/29/20 [place] - LAB PAGE 1 RUN TIME: 1530 Specimen Inquiry RUN USER: INTERFACE LAUREN ENT: JORGE A SHERMAN LOC: 5MU U #: [id number] AGE/SX: 80/F ROOM: [facility] RE11/26/20REG DR: Audrey Beltrán MD : 38 BED: A DIS: STATUS: ADM IN TLOC: SPEC #: [id number]:COCHRAN:[id number] RECD: 11/27/20 STATUS: DEVORA REQ #: [id number] KEENAN: 11/26/[address]: Audrey Beltrán MD ENTERED: 11/27/20 SP TYPE: SMALL INTE OTHR DR: oLuise Burrell MD R1 Joe Higgins MD, Ryan DO R1 Alec Dean MD Undefined ProviderORDERED: SURG PATH LVL 5, SURG PATH LVL 3 CODES: E84384 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, N B76040 - SMALL INTESTINE B20237 P422494 - LARGE INTESTINE EXCISION, NOS R46604 - COLON, NOS XL2305 - SURGICAL MARGIN COPIES TO: Louise Burrell MD R1 [address] [place] [address] Joe Higgins MD [address] [place], [place] [id number] Jose Bartlett R1 [address] [place] [address] [place] [address] [place] [address] Audrey Bel[place]án [place] [address] [address] [id number] @[facility] Undefined Provider PROCEDURES: SURG PATH LVL 5 (11/27/20) SURG PATH LVL 3 (11/29/20) CONTINUED ON NEXT PAGE RUN DATE: 11/29/20 [place] - LAB PAGE 2 RUN TIME: 1530 Specimen Inquiry RUN USER: INTERFACE SPEC #: [id number]:COCHRAN:[id number] PATIENT: JORGE A SHERMAN #[id number] (Continued) ------- TISSUES: A. SMALL INTESTINE, NOS - SMALL BOWEL ILEOSTOMY B. COLON, NOS - COLON CPT CODES CPT CODE(S): 50862 , 03154 , , , , , FINAL DIAGNOSIS [...] atypical features. /pdb Signed SIGNATURE ON FILE Yifan Lewisyoelyelitza Cronin 11/29/20 1529 END OF REPORT - XR KNEE 1 OR 2 V [id number] 13:57:00 [facility] 1940 Sex: F Patient Name: JORGE A SHERMAN Unit No: [id number] EXAMS: CPT CODE: [id number] XR KNEE 1 [place] 2 [place] [address] EXAM: XR KNEE 2 VIEWS, LEFT INDICATION: [...] Hinkle (RT) (R) Transcrpt Date/Tm/Trnsp: 11/29/2020 (1357) AuraMD16 Orig Print D/T: S: 11/29/2020 (1400) [facility] NAME: JORGE A SHERMAN [address] PHYS: [id number] - [place] [address] : 1940 AGE: 80 SEX: F LOC: Z.533 A PHONE #: [phone] EXAM DATE: 11/29/2020 STATUS: ADM IN FAX #: [phone] RADIOLOGY NO: PAGE 1 Signed ReportBASIC METABOLIC [id number] 06:24:00 Test Item Value Reference Range Interpretation [...] 8.2 MG/DL 8.4-10.2 L CA) CBC W/AUTO [id number] 06:10:00 Test Item Value Reference Range Interpretation [...] N NRBC#) UA RFLX MICR CULT IF [id number] 22:07:00 Test Item Value Reference Range Interpretation [...] Criteria Indication for culture: RiskForSepsis-no oth srcHGB [id number] 11:59:00 Test Item Value Reference Range Interpretation Comments HEMOGLOBIN (test code = HGB) 8.4 G/DL 11.2-14.9 L HEMATOCRIT (test code = HCT) 26.5 % 33.2-43.5 L BASIC METABOLIC [id number] 06:23:00 Test Item Value Reference Range Interpretation [...] 8.3 MG/DL 8.4-10.2 L CA) CBC W/AUTO [id number] 02:38:00 Test Item Value Reference Range Interpretation [...] = 0.00 K/mm3 0.0-0.1 N NRBC#) LACTIC [id number] 01:54:00 Test Item Value Reference Range Interpretation Comments LACTIC ACID (test code = LACT) 0.7 MMOL/L 0.7-2.1 N CBC W/AUTO [id number] 22:51:00 Test Item Value Reference Range Interpretation [...] 0.00 K/mm3 0.0-0.1 N NRBC#) Comments to Service Sprinkler Helper: will draw and send down.LACTIC [id number] 20:28:00 Test Item Value Reference Range Interpretation Comments LACTIC ACID (test code = LACT) 0.8 MMOL/L 0.7-2.1 N BASIC METABOLIC [id number] 07:33:00 Test Item Value Reference Range Interpretation [...] 9.0 MG/DL 8.4-10.2 N CA) CBC W/AUTO [id number] 07:17:00 Test Item Value Reference Range Interpretation [...] = 0.00 K/mm3 0.0-0.1 N NRBC#) PROTHROMBIN [id number] 12:05:00 Test Item Value Reference Range Interpretation [...] myocar dial infarction. 2.0 - 3.0 3. Web Marketing Manager al prosthesis hear t valves, recurre nt systemic emboli sm. 3.0 - 4.5 PTT [id number] 12:05:00 Test Item Value Reference Range Interpretation Comments PTT ACTIVATED (test code = APTT) 21.5 SECONDS 25.1-36.5 L BASIC METABOLIC [id number] 13:28:00 Test Item Value Reference Range Interpretation [...] 8.4-10.2 N CA) COVID 19 Asymptomatic IH [id number] 13:14:00 Test Item Value Reference Range Interpretation [...] virus (antigen) in the sample." CBC W/AUTO [id number] 12:54:00 Test Item Value Reference Range Interpretation [...] code = 0.00 K/mm3 0.0-0.1 N NRBC#) [id number] 07:17:00 Test Item Value Reference Range Interpretation Comments TRANSFERRRIN (test code 130 mg/dL 192-364 L Perf ormed At: BN = TRANSF) [facility] [id number] ra Amos CORREIA Ph:[phone] PROTHROMBIN [id number] 16:15:00 Test Item Value Reference Range Interpretation [...] myocar dial infarction. 2.0 - 3.0 3. Web Marketing Manager al prosthesis hear t valves, recurre nt systemic emboli sm. 3.0 - 4.5 PATIENT IS A HARD STICK. UNABLE TO GET BLOOD SAMPLE.NOTIFIED PATIENT CARE STAFF: VELIA 02/29/20 AT 1359 BY YASHIRAERPROTHROMBIN [id number] 11:04:00 Test Item Value Reference Range Interpretation [...] myocar dial infarction. 2.0 - 3.0 3. Web Marketing Manager al prosthesis hear t valves, recurre nt systemic emboli sm. 3.0 - 4.5 Comments to Service Sprinkler Helper: CHECK AT LEAST 30 MIN AFTER AFTER FFP INFUSION PROTHROMBIN [id number] 08:05:00 Test Item Value Reference Range Interpretation Comments PROTHROMBIN TIME 40.1 SECONDS 9.4-12.5 HH PATIENT (test code = PTP) INTERNATIONAL NORMAL 3.[address] DODGE (test code = HELADIOJO& READBACK INR) ON 02/29/20 AT 0805 BY [...] myocar dial infarction. 2.0 - 3.0 3. Web Marketing Manager al prosthesis hear t valves, recurre nt systemic emboli sm. 3.0 - 4.5 PROTHROMBIN [id number] 16:53:00 Test Item Value Reference Range Interpretation [...] myocar dial infarction. 2.0 - 3.0 3. Web Marketing Manager al prosthesis hear t valves, recurre nt systemic emboli sm. 3.0 - 4.5 BASIC METABOLIC [id number] 09:10:00 Test Item Value Reference Range Interpretation [...] code = 8.6 MG/DL 8.4-10.2 N CA) [id number] 09:10:00 Test Item Value Reference Range Interpretation [...] 21 % 12-57 N FESAT) BASIC METABOLIC [id number] 07:10:00 Test Item Value Reference Range Interpretation [...] code = 8.6 MG/DL 8.4-10.2 N CA) [id number] 07:10:00 Test Item Value Reference Range Interpretation Comments FERRITIN (test code = MARSHALL) NG/ML 11.1-264 PROTHROMBIN [id number] 07:07:00 Test Item Value Reference Range Interpretation Comments PROTHROMBIN TIME 43.1 SECONDS 9.4-12.5 HH CALLED TO Belem kent G & PATIENT (test code = READBAC K ON PTP) 02/28/20 AT 070 3 BY James Bean INTERNATIONAL NORMAL 3.8 HH CALLED TO Yassine G & RATIO (test code = READBACK ON [...] myocar dial infarction. 2.0 - 3.0 3. Web Marketing Manager al prosthesis hear t valves, recurre nt systemic emboli sm. 3.0 - 4.5 BASIC METABOLIC [id number] 07:04:00 Test Item Value Reference Range Interpretation [...] CALCIUM (test code = MG/DL 8.7-9.7 CA) [id number] 07:04:00 Test Item Value Reference Range Interpretation Comments FERRITIN (test code = MARSHALL) NG/ML 11.1-264 BASIC METABOLIC [id number] 07:01:00 Test Item Value Reference Range Interpretation [...] CALCIUM (test code = CA) MG/DL 8.7-9.7 [id number] 07:01:00 Test Item Value Reference Range Interpretation Comments FERRITIN (test code = MARSHALL) NG/ML 11.1-264 BASIC METABOLIC [id number] 07:01:00 Test Item Value Reference Range Interpretation [...] CALCIUM (test code = CA) MG/DL 8.7-9.7 [id number] 07:01:00 Test Item Value Reference Range Interpretation Comments FERRITIN (test code = MARSHALL) NG/ML 11.1-264 FE W/TOTAL IRON BINDING CAP.[id number] 07:00:00 Test Item Value Reference Range Interpretation Comments SERUM IRON (test code = IRON) 43 MCG/DL 37-170 N TOTAL IRON BINDING CAPACITY (test MCG/DL 265-497 code = TIBC) IRON SATURATION (test code = FESAT) % 12-57 RETICULOCYTE [id number] 06:35:00 Test Item Value Reference Range Interpretation Comments RETICULOCYTE COUNT (test code = RETICT) 1.2 % 0.5-1.5 N CBC W/AUTO [id number] 06:33:00 Test Item Value Reference Range Interpretation [...] = 0.00 K/mm3 0.0-0.1 N NRBC#) PROTHROMBIN [id number] 21:27:00 Test Item Value Reference Range Interpretation Comments PROTHROMBIN TIME 38.5 SECONDS 9.4-12.5 HH CALLED TO Belem GARCIA PATIENT (test code = Bartolome MCKEON ON [...] myocar dial infarction. 2.0 - 3.0 3. Web Marketing Manager al prosthesis hear t valves, recurre nt systemic emboli sm. 3.0 - 4.5 UNABLE TO DRAW BLOOD, REASON: WAIT 2 HRS DO @1999NOTIFIED PATIENT CARE STAFF: ARACELI 02/27/20 AT 1718 BY Ashutosh Cleveland BEDSIDE [id number] 19:55:00 Test Item Value Reference Range Interpretation Comments GLUCOSE BEDSIDE TESTING (test code = 91 MG/DL 60-99 N GLUBED) [id number] 15:47:00 Test Item Value Reference Range Interpretation Comments PREALBUMIN (test code = PREALB) 13 MG/DL 17-42 L UR SMEAR EOSINOPHIL [id number] 07:16:00 Test Item Value Reference Range Interpretation Comments UR SMEAR EOSINOPHIL COUNT (test code = NONE RARE EOSCTU) BASIC METABOLIC [id number] 07:04:00 Test Item Value Reference Range Interpretation [...] 8.4 MG/DL 8.4-10.2 N CA) CBC W/AUTO [id number] 06:56:00 Test Item Value Reference Range Interpretation [...] 0.00 K/mm3 0.0-0.1 N NRBC#) BASIC METABOLIC [id number] 06:27:00 Test Item Value Reference Range Interpretation [...] (test code = CA) MG/DL 8.7-9.7 PROTHROMBIN [id number] 06:24:00 Test Item Value Reference Range Interpretation [...] myocar dial infarction. 2.0 - 3.0 3. Web Marketing Manager al prosthesis hear t valves, recurre nt systemic emboli sm. 3.0 - 4.5 UR SODIUM [id number] 06:06:00 Test Item Value Reference Range Interpretation Comments UR SODIUM RANDOM (test code = RENETTA) 111 MMOL/L 27-287 N UR PROTEIN [id number] 06:06:00 Test Item Value Reference Range Interpretation Comments UR PROTEIN RANDOM (test code = 43 MG/DL 0-11.9 H PROTU) UR CREATININE [id number] 06:06:00 Test Item Value Reference Range Interpretation Comments UR CREATININE RANDOM (test code = 83.4 CREATU) UR OSMOLALITY [id number] 06:06:00 Test Item Value Reference Range Interpretation Comments UR OSMOLALITY RANDOM (test code 469.5 MOS/KG 300-1200 N = OSMOU) UR SODIUM [id number] 05:33:00 Test Item Value Reference Range Interpretation Comments UR SODIUM RANDOM (test code = RENETTA) 111 MMOL/L 27-287 N UR PROTEIN [id number] 05:33:00 Test Item Value Reference Range Interpretation Comments UR PROTEIN RANDOM (test code = 43 MG/DL 0-11.9 H PROTU) UR CREATININE [id number] 05:33:00 Test Item Value Reference Range Interpretation Comments UR CREATININE RANDOM (test code = 83.4 CREATU) UR OSMOLALITY [id number] 05:33:00 Test Item Value Reference Range Interpretation Comments UR OSMOLALITY RANDOM (test code = MOS/KG 300-1200 OSMOU) UR SODIUM [id number] 05:30:00 Test Item Value Reference Range Interpretation Comments UR SODIUM RANDOM (test code = RENETTA) 111 MMOL/L 27-287 N UR PROTEIN [id number] 05:30:00 Test Item Value Reference Range Interpretation Comments UR PROTEIN RANDOM (test code = 43 MG/DL 0-11.9 H PROTU) UR CREATININE [id number] 05:30:00 Test Item Value Reference Range Interpretation Comments UR CREATININE RANDOM (test code = CREATU) UR OSMOLALITY [id number] 05:30:00 Test Item Value Reference Range Interpretation Comments UR OSMOLALITY RANDOM (test code = MOS/KG 300-1200 OSMOU) UR SODIUM [id number] 05:29:00 Test Item Value Reference Range Interpretation Comments UR SODIUM RANDOM (test code = RENETTA) 111 MMOL/L 27-287 N UR PROTEIN [id number] 05:29:00 Test Item Value Reference Range Interpretation Comments UR PROTEIN RANDOM (test code = PROTU) MG/DL 0-11.9 UR CREATININE [id number] 05:29:00 Test Item Value Reference Range Interpretation Comments UR CREATININE RANDOM (test code = CREATU) UR OSMOLALITY [id number] 05:29:00 Test Item Value Reference Range Interpretation Comments UR OSMOLALITY RANDOM (test code = MOS/KG 300-1200 OSMOU) - RETRO [id number] 22:50:00 [facility] 1940 Sex: F Patient Name: JORGE A SHERMAN Unit No: [id number] EXAMS: CPT CODE: [id number] [facility] [address] Retroperitoneal ultrasound. Location: R16 History: Hematuria.. Comparison: 01/02/2020 CT [...] cyst. at 2250 Reported and signed by: Giuliana CORREIA CC: Jigar Hancock MD; Ramu Sutherland MD Technologist: Citlaly Jones RDMS(AB) Transcrpt Date/Tm/Trnsp: 02/26/2020 (2250) [email or web address] Orig Print D/T: S: 02/26/2020 (9349) [facility] NAME: JORGE A SHERMAN [id number] [address] PHYS: LEVY.Edmond - [place] [address] : 1940 AGE: 79 SEX: F LOC: Z.513 A PHONE #: [phone] EXAM DATE: 02/26/2020 STATUS: A DM IN FAX #: [phone] RADIOLOGY NO: PAGE 1 Signed ReportGLUCOSE BEDSIDE [id number] 15:32:00 Test Item Value Reference Range Interpretation Comments GLUCOSE BEDSIDE TESTING (test code = 79 MG/DL 60-99 N GLUBED) LACTIC [id number] 13:01:00 Test Item Value Reference Range Interpretation Comments LACTIC ACID (test code = LACT) 1.3 MMOL/L 0.7-2.1 N GLUCOSE BEDSIDE [id number] 12:21:00 Test Item Value Reference Range Interpretation Comments GLUCOSE BEDSIDE TESTING (test code = 78 MG/DL 60-99 N GLUBED) COMPREHENSIVE METABOLIC [id number] 11:41:00 Test Item Value Reference Range Interpretation [...] 3.5mg/dl Bc/2.8mg/dl +0. 25mg/dl +0.23mg/dl SGOT/AST (test 52 UNITS/L 14-36 H code = AST) SGPT/ALT (test 36 UNITS/L <35 code = ALT) ALKALINE 198 UNITS/L 38-126 H PHOSPHATASE (test code = ALKP) PROTHROMBIN [id number] 11:31:00 Test Item Value Reference Range Interpretation [...] myocar dial infarction. 2.0 - 3.0 3. Web Marketing Manager al prosthesis hear t valves, recurre nt systemic emboli sm. 3.0 - 4.5 CBC W/AUTO [id number] 11:25:00 Test Item Value Reference Range Interpretation [...] 0.00 K/mm3 0.0-0.1 N NRBC#) GLUCOSE BEDSIDE [id number] 08:29:00 Test Item Value Reference Range Interpretation Comments GLUCOSE BEDSIDE TESTING (test code = 72 MG/DL 60-99 N GLUBED) GLUCOSE BEDSIDE [id number] 00:04:00 Test Item Value Reference Range Interpretation Comments GLUCOSE BEDSIDE TESTING (test code = 68 MG/DL 60-99 N GLUBED) PROTHROMBIN [id number] 23:52:00 Test Item Value Reference Range Interpretation Comments PROTHROMBIN TIME 75.1 SECONDS 9.4-12.5 HH CALLED TO [place] DELEONDARIAN Davis PATIENT (test code = & READB [...] myocar dial infarction. 2.0 - 3.0 3. Web Marketing Manager al prosthesis hear t valves, recurre nt systemic emboli sm. 3.0 - 4.5 COVID 19 Asymptomatic IH [id number] 23:42:00 Test Item Value Reference Range Interpretation [...] virus (antigen) in the sample." THYROID STIMULATING [id number] 23:04:00 Test Item Value Reference Range Interpretation Comments THYROID STIMULATING 21.300 MIU/L 0.465-4.68 H Please b e aware that HORMONE (test code = bias re sults for TSH TSH) may occur forpa tient who are taking Biotin suppleme nts. GLYCOSYLATED HEMOGLOBIN [id number] 22:37:00 Test Item Value Reference Range Interpretation [...] 70-110 N (test code = MBG) URINALYSIS [id number] 18:24:00 Test Item Value Reference Range Interpretation [...] Culture Chk code = UACULT) Criteria UA [id number] 18:24:00 Test Item Value Reference Range Interpretation Comments UA RBC (test code = RBCU) 50-100 RBC/HPF 0-3 A UA WBC (test code = XWBCU) >100 WBC/HPF 0-5 A UA EPITHELIAL CELLS (test code FEW EPI/HPF FEW = EPIU) UA BACTERIA (test code = MODERATE NONE A XBACU) UA YEAST (test code = YEASTU) FEW #/HPF NONE A URINALYSIS [id number] 18:13:00 Test Item Value Reference Range Interpretation [...] code Criteria Culture Chk = UACULT) UA [id number] 18:13:00 Test Item Value Reference Range Interpretation Comments UA RBC (test code = RBCU) RBC/HPF 0-3 UA WBC (test code = XWBCU) WBC/HPF 0-5 UA EPITHELIAL CELLS (test code = EPI/HPF FEW EPIU) UA BACTERIA (test code = XBACU) NONE URINALYSIS [id number] 18:13:00 Test Item Value Reference Range Interpretation [...] code Criteria Culture Chk = UACULT) UA [id number] 18:13:00 Test Item Value Reference Range Interpretation Comments UA RBC (test code = RBCU) RBC/HPF 0-3 UA WBC (test code = XWBCU) WBC/HPF 0-5 UA EPITHELIAL CELLS (test code = EPI/HPF FEW EPIU) UA BACTERIA (test code = XBACU) NONE COMPREHENSIVE METABOLIC [id number] 17:13:00 Test Item Value Reference Range Interpretation [...] RECOLLECTION NEEDED ON 02/25/20 AT 1538 BY JAMESON.EVL7TTSUKH: NOT ENOUGH BLOODNOTIFIED PATIENT CARE STAFF: GIDEON Davis SAID TO SEND PHELBPHOSPHOROUS 2020-02-25 17:13:00 Test Item Value Reference Range Interpretation Comments PHOSPHOROUS (test code = PHOS) 4.3 MG/DL 2.5-4.5 N RECOLLECTION NEEDED ON 02/25/20 AT 1538 BY JAMESON.TGP6GZUEBT: NOT ENOUGH BLOODNOTIFIED PATIENT CARE STAFF: GIDEON Davis SAID TO SEND [id number] 17:13:00 Test Item Value Reference Range Interpretation Comments LIPASE (test code = LIP) 313 UNITS/L 23-300 H RECOLLECTION NEEDED ON 02/25/20 AT 1538 BY Z.LAB.KZG8DACBVM: NOT ENOUGH BLOODNOTIFIED PATIENT CARE STAFF: GIDEON MillanKassandra SAID TO SEND PHELBMAGNESIUM 2020-02-25 17:13:00 Test Item Value Reference Range Interpretation Comments MAGNESIUM (test code = MAG) 1.7 MG/DL 1.6-2.3 N RECOLLECTION NEEDED ON 02/25/20 AT 1538 BY Z.LAB.MUU8MVNOTK: NOT ENOUGH BLOODNOTIFIED PATIENT CARE STAFF: GIDEON MontyKassandra SAID TO SEND PHELBTROPONIN-I 2020-02-25 17:13:00 Test Item Value Reference Range Interpretation Comments TROPONIN-I (test code = TROPI) < 0.012 NG/ML 0.012-0.033 L RECOLLECTION NEEDED ON 02/25/20 AT 1538 BY Z.LAB.QIH2WPFXAE: NOT ENOUGH BLOODNOTIFIED PATIENT CARE STAFF: GIDEON MillanKassandra SAID TO SEND PHELBCOMPREHENSIVE METABOLIC [id number] 16:32:00 Test Item Value Reference Range Interpretation [...] anemia ) with specific assays on the [employer] of which Total Protein is one [...] RECOLLECTION NEEDED ON 02/25/20 AT 1538 BY Z.LAB.WOE5TMUOGH: NOT ENOUGH BLOODNOTIFIED PATIENT CARE STAFF: GIDEON Davis SAID TO SEND PHELBPHOSPHOROUS 2020-02-25 16:32:00 Test Item Value Reference Range Interpretation Comments PHOSPHOROUS (test code = PHOS) 4.3 MG/DL 2.5-4.5 N RECOLLECTION NEEDED ON 02/25/20 AT 1538 BY Z.LAB.FSZ6MHOWGM: NOT ENOUGH BLOODNOTIFIED PATIENT CARE STAFF: GIDEON Davis SAID TO SEND [id number] 16:32:00 Test Item Value Reference Range Interpretation Comments LIPASE (test code = LIP) 313 UNITS/L 23-300 H RECOLLECTION NEEDED ON 02/25/20 AT 1538 BY Z.LAB.ZRF2YEAXZE: NOT ENOUGH BLOODNOTIFIED PATIENT CARE STAFF: GIDEON Davis SAID TO SEND PHELBMAGNESIUM 2020-02-25 16:32:00 Test Item Value Reference Range Interpretation Comments MAGNESIUM (test code = MAG) 1.7 MG/DL 1.6-2.3 N RECOLLECTION NEEDED ON 02/25/20 AT 1538 BY Z.LAB.XSB8RIWZRK: NOT ENOUGH BLOODNOTIFIED PATIENT CARE STAFF: GIDEON Davis SAID TO SEND PHELBTROPONIN-I 2020-02-25 16:32:00 Test Item Value Reference Range Interpretation Comments TROPONIN-I (test code = TROPI) NG/ML 0.0-0.045 RECOLLECTION NEEDED ON 02/25/20 AT 1538 BY YASHIRAXEP3HSMSEK: NOT ENOUGH BLOODNOTIFIED PATIENT CARE STAFF: GIDEON Davis SAID TO SEND PHELBCOMPREHENSIVE METABOLIC [id number] 16:30:00 Test Item Value Reference Range Interpretation [...] RECOLLECTION NEEDED ON 02/25/20 AT 1538 BY Z.LAB.BXD4PHOFAE: NOT ENOUGH BLOODNOTIFIED PATIENT CARE STAFF: GIDEON Davis SAID TO SEND PHELBPHOSPHOROUS 2020-02-25 16:30:00 Test Item Value Reference Range Interpretation Comments PHOSPHOROUS (test code = PHOS) MG/DL 2.5-4.5 RECOLLECTION NEEDED ON 02/25/20 AT 1538 BY Z.LAB.ESW8SINWSC: NOT ENOUGH BLOODNOTIFIED PATIENT CARE STAFF: GIDEON Davis SAID TO SEND [id number] 16:30:00 Test Item Value Reference Range Interpretation Comments LIPASE (test code = LIP) UNITS/L 23-300 RECOLLECTION NEEDED ON 02/25/20 AT 1538 BY Z.LAB.QFL7NCKYBJ: NOT ENOUGH BLOODNOTIFIED PATIENT CARE STAFF: GIDEON Davis SAID TO SEND PHELBMAGNESIUM 2020-02-25 16:30:00 Test Item Value Reference Range Interpretation Comments MAGNESIUM (test code = MAG) MG/DL 1.6-2.3 RECOLLECTION NEEDED ON 02/25/20 AT 1538 BY Z.LAB.HBV5LPFMJD: NOT ENOUGH BLOODNOTIFIED PATIENT CARE STAFF: GIDEON Davis SAID TO SEND PHELBTROPONIN-I 2020-02-25 16:30:00 Test Item Value Reference Range Interpretation Comments TROPONIN-I (test code = TROPI) NG/ML 0.0-0.045 RECOLLECTION NEEDED ON 02/25/20 AT 1538 BY YASHIRAJIP4LTCUJI: NOT ENOUGH BLOODNOTIFIED PATIENT CARE STAFF: GIDEON Davis SAID TO SEND PHELB- XR CHEST 1V 2020-02-25 15:32:00 [facility] : 1940 Sex: F Patient Name: JORGE A SHERMAN Unit No: [id number] EXAMS: CPT CODE: [id number] XR CHEST 1V 03571 Location: T 18 CHEST X-RAY: Portable AP frontal projection, one view, 02/25/20 CLINICAL HISTORY: Weakness. COMPARISONEXAMS: 12/25/19 chest x-ray exam FINDINGS: Heart, lungs, and hilar structures are within normal limits. No evolving process or pleural based finding. No active CHF or pneumonia. Previously seen hazy de nsity throughout the left lung has resolved. Patient status post sternotomy. IMPRESSION: No acute finding at 1532 Reported and signed by: Davi Bardales MD CC: Guilherme Street; Ramu Sutherland MD Technologist: Larry Hinkle (RT) (R) Transcrpt Date/Tm/Trnsp: 02/25/2020 (1532) [email or web address] Orig Print D/T: S: 02/25/2020 (1535) [facility] NAME: JORGE A SHERMAN [id number] [address] PHYS: [place] [address] : 1940 AGE: 79 SEX: F LOC: VICENTE PHONE #: [phone] EXAM DATE: 02/25/2020 STATUS: REG ER FAX #: [phone] RADIOLOGY NO: PAGE 1 Signed Report CBC W/O [id number] 15:20:00 Test Item Value Reference Range Interpretation [...] 0.00 K/mm3 0.0-0.1 N NRBC#) GLUCOSE BEDSIDE [id number] 11:55:00 Test Item Value Reference Range Interpretation Comments GLUCOSE BEDSIDE TESTING (test code 132 MG/DL 60-99 H = GLUBED) GLUCOSE BEDSIDE [id number] 11:04:00 Test Item Value Reference Range Interpretation Comments GLUCOSE BEDSIDE TESTING (test code = 74 MG/DL 60-99 N GLUBED) GLUCOSE BEDSIDE [id number] 07:38:00 Test Item Value Reference Range Interpretation Comments GLUCOSE BEDSIDE TESTING (test code 110 MG/DL 60-99 H = GLUBED) BASIC METABOLIC [id number] 06:32:00 Test Item Value Reference Range Interpretation [...] 8.1 MG/DL 8.4-10.2 L CA) BASIC METABOLIC [id number] 06:31:00 Test Item Value Reference Range Interpretation [...] code = MG/DL 8.7-9.7 CA) BASIC METABOLIC [id number] 06:29:00 Test Item Value Reference Range Interpretation [...] code = CA) MG/DL 8.7-9.7 BASIC METABOLIC [id number] 06:28:00 Test Item Value Reference Range Interpretation [...] (test code = CA) MG/DL 8.7-9.7 PROTHROMBIN [id number] 06:17:00 Test Item Value Reference Range Interpretation [...] myocar dial infarction. 2.0 - 3.0 3. Web Marketing Manager al prosthesis hear t valves, recurre nt systemic emboli sm. 3.0 - 4.5 CBC W/AUTO [id number] 06:12:00 Test Item Value Reference Range Interpretation [...] N NRBC#) - CT ABD PELVIS W/O [id number] 19:52:00 [facility] : 1940 Sex: F Patient Name: JORGE A SHERMAN Unit No: [id number] EXAMS: CPT CODE: [id number] CT ABD PELVIS W/O CONT 58569 EXAM: CT abdomen and pelvis INDICATION: Post-op bleeding COMPARISON: December 30, 2019 LOCATION: [facility] CT scan of the abdomen and [...] catheter in the pelvis is again identified. 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 at [facility] Reported and signed by: Loc Medina MD CC: Nicolas Wiley MD; Ramu Sutherland MD; Rashid Son MD Technologist: Jose Victor RT (R) (CT) CTDI: DLP: Trnscrpt: 01/02/2020 (1951) [email or web address] [facility] NAME: JORGE A SHERMAN Gerry PHYS: [place] [address] : 1940 AGE: 79 SEX: F LOC: Z.SI06 A PHONE #: [phone] EXAM DATE: 01/02/2020 STATUS: ADM IN FAX #: [phone] RAD #: D/C DT PAGE 2 Signed Report Patient Name: JORGE A SHERMAN Unit No: [id number] EXAMS: CPT CODE: [id number] CT ABD PELVIS W/O CONT 77922 (Continued) Orig Print D/T: S: 01/02/2020 (1954) [facility] NAME:JORGE A SHERMAN [address] [address] PHYS: [id number] - [place] [address] : 1940 AGE: 79 SEX: F LOC: Z.SI06 A PHONE #: [phone] EXAM DATE: 01/02/2020 STATUS: ADM IN FAX #: [phone] RAD #: D/C DT PAGE 3 Signed ReportHGB [id number] 16:29:00 Test Item Value Reference Range Interpretation Comments HEMOGLOBIN (test code = HGB) 8.2 G/DL 11.2-14.9 L HEMATOCRIT (test code = HCT) 26.0 % 33.2-43.5 L GLUCOSE BEDSIDE [id number] 16:27:00 Test Item Value Reference Range Interpretation Comments GLUCOSE BEDSIDE TESTING (test code = 59 MG/DL 60-99 L GLUBED) GLUCOSE BEDSIDE [id number] 12:00:00 Test Item Value Reference Range Interpretation Comments GLUCOSE BEDSIDE TESTING (test code 101 MG/DL 60-99 H = GLUBED) HGB [id number] 09:00:00 Test Item Value Reference Range Interpretation Comments HEMOGLOBIN (test code = 6.4 G/DL 11.2-14.9 LL CALL ED TO SUZANNE Landis HGB) READBACK ON AT 0900 BY Ilan Loo HEMATOCRIT (test code = 20.5 % 33.2-43.5 L HCT) CBC W/AUTO [id number] 07:51:00 Test Item Value Reference Range Interpretation [...] K/mm3 0.0-0.1 N code = NRBC#) DIFFERENTIAL [id number] 07:51:00 Test Item Value Reference Range Interpretation Comments RBC MORPHOLOGY REQUIRED (test code NORMAL = RBCM) ANISOCYTOSIS (test code = ANISO) SLIGHT NONE PLATELET ESTIMATE (test code = INCREASED ADEQUATE PLTEST) PLATELET MORPHOLOGY (test code = NORMAL NORMAL PLTMORPH) BASIC METABOLIC [id number] 06:22:00 Test Item Value Reference Range Interpretation [...] = 8.3 MG/DL 8.4-10.2 L CA) PROTHROMBIN [id number] 06:22:00 Test Item Value Reference Range Interpretation [...] myocar dial infarction. 2.0 - 3.0 3. Web Marketing Manager al prosthesis hear t valves, recurre nt systemic emboli sm. 3.0 - 4.5 Comments to Service Sprinkler Helper: .BASIC METABOLIC [id number] 06:17:00 Test Item Value Reference Range Interpretation [...] code = CA) MG/DL 8.7-9.7 CBC W/AUTO [id number] 06:16:00 Test Item Value Reference Range Interpretation [...] K/mm3 0.0-0.1 N code = NRBC#) DIFFERENTIAL [id number] 06:16:00 Test Item Value Reference Range Interpretation Comments RBC MORPHOLOGY REQUIRED (test code = RBCM) PLATELET ESTIMATE (test code = PLTEST) ADEQUATE PLATELET MORPHOLOGY (test code = NORMAL PLTMORPH) CBC W/AUTO [id number] 06:16:00 Test Item Value Reference Range Interpretation [...] K/mm3 0.0-0.1 N code = NRBC#) DIFFERENTIAL [id number] 06:16:00 Test Item Value Reference Range Interpretation Comments RBC MORPHOLOGY REQUIRED (test code = RBCM) PLATELET ESTIMATE (test code = PLTEST) ADEQUATE PLATELET MORPHOLOGY (test code = NORMAL PLTMORPH) GLUCOSE BEDSIDE [id number] 21:30:00 Test Item Value Reference Range Interpretation Comments GLUCOSE BEDSIDE TESTING (test code = 87 MG/DL 60-99 N GLUBED) ARTERIAL BLOOD [id number] 17:52:00 Test Item Value Reference Range Interpretation [...] FIO2 (test code = COHBGFFIO2) 30 % PaO2/[id number] 17:52:00 Test Item Value Reference Range Interpretation Comments PaO2/FiO2 (test code = OAQ1AMA5) 279.66 mm/Hg GLUCOSE BEDSIDE [id number] 16:23:00 Test Item Value Reference Range Interpretation Comments GLUCOSE BEDSIDE TESTING (test code 108 MG/DL 60-99 H = GLUBED) PROTHROMBIN [id number] 14:43:00 Test Item Value Reference Range Interpretation [...] dial infarction. 2. 0 - 3.0 3. Web Marketing Manager al prosthesis hear t valves, recurre nt systemic emboli sm. 3.0 - 4.5 UNABLE TO DRAW BLOOD, REASON: CBNNOTIFIED PATIENT CARE STAFF: PEPPER 01/01/20 AT 1405 BY Tami Clevelandments to Service Sprinkler Helper: ,GLUCOSE BEDSIDE TESTING 2020-01-01 12:19:00 Test Item Value Reference Range Interpretation Comments GLUCOSE BEDSIDE TESTING (test code 116 MG/DL 60-99 H = GLUBED) GLUCOSE BEDSIDE [id number] 07:47:00 Test Item Value Reference Range Interpretation Comments GLUCOSE BEDSIDE TESTING (test code 109 MG/DL 60-99 H = GLUBED) BASIC METABOLIC [id number] 05:06:00 Test Item Value Reference Range Interpretation [...] 8.5 MG/DL 8.4-10.2 N CA) BASIC METABOLIC [id number] 04:58:00 Test Item Value Reference Range Interpretation [...] code = CA) MG/DL 8.7-9.7 GLUCOSE BEDSIDE [id number] 20:12:00 Test Item Value Reference Range Interpretation Comments GLUCOSE BEDSIDE TESTING (test code 119 MG/DL 60-99 H = GLUBED) GLUCOSE BEDSIDE [id number] 15:55:00 Test Item Value Reference Range Interpretation Comments GLUCOSE BEDSIDE TESTING (test code 134 MG/DL 60-99 H = GLUBED) CBC W/O [id number] 11:34:00 Test Item Value Reference Range Interpretation Comments WHITE BLOOD CELL (test 32.2 K/MM3 3.8-9.8 HH MAYNARD Ray RODRIGUEZ code = WBC) S.& READBACK ON [...] K/mm3 0.0-0.1 N code = NRBC#) DIFFERENTIAL [id number] 11:34:00 Test Item Value Reference Range Interpretation Comments RBC MORPHOLOGY REQUIRED (test code NORMAL = RBCM) POLYCHROMASIA (test code = POLC) FEW NONE PLATELET ESTIMATE (test code = INCREASED ADEQUATE PLTEST) PLATELET MORPHOLOGY (test code = NORMAL NORMAL PLTMORPH) WBC [id number] 11:34:00 Test Item Value Reference Range Interpretation [...] MON) 4.9 % 0-11 N BASIC METABOLIC [id number] 11:28:00 Test Item Value Reference Range Interpretation [...] code = 8.7 MG/DL 8.4-10.2 N CA) [id number] 11:28:00 Test Item Value Reference Range Interpretation Comments VANCOMYCIN (test code = VANCO) 14.3 mcg/ML 5.0-26.0 CBC W/O [id number] 11:09:00 Test Item Value Reference Range Interpretation Comments WHITE BLOOD CELL (test 32.2 K/MM3 3.8-9.8 HH ALEYDA HANLEY JENNIFER code = WBC) S.& READBACK ON [...] K/mm3 0.0-0.1 N code = NRBC#) DIFFERENTIAL [id number] 11:09:00 Test Item Value Reference Range Interpretation Comments RBC MORPHOLOGY REQUIRED (test code = RBCM) PLATELET ESTIMATE (test code = PLTEST) ADEQUATE PLATELET MORPHOLOGY (test code = NORMAL PLTMORPH) WBC [id number] 11:09:00 Test Item Value Reference Range Interpretation Comments TOTAL CELLS COUNTED (test code = TCC) #CELLS SEGMENTED NEUTROPHILS (test code = % 36.2-73.8 SEG) LYMPHOCYTE (test code = LYMPH) % 12.9-45.1 MONOCYTE (test code = MON) % 0-11 CBC W/AUTO [id number] 11:09:00 Test Item Value Reference Range Interpretation [...] K/mm3 0.0-0.1 N code = NRBC#) WBC [id number] 11:09:00 Test Item Value Reference Range Interpretation Comments RBC MORPHOLOGY REQUIRED (test code = RBCM) TOTAL CELLS COUNTED (test code = TCC) #CELLS SEGMENTED NEUTROPHILS (test code = % 36.2-73.8 SEG) LYMPHOCYTE (test code = LYMPH) % 12.9-45.1 MONOCYTE (test code = MON) % 0-11 PLATELET ESTIMATE (test code = ADEQUATE PLTEST) PLATELET MORPHOLOGY (test code = NORMAL PLTMORPH) ARTERIAL BLOOD [id number] 11:00:00 Test Item Value Reference Range Interpretation [...] FIO2 (test code = 21 % COHBGFFIO2) PaO2/[id number] 11:00:00 Test Item Value Reference Range Interpretation Comments PaO2/FiO2 (test code = OSU9VOW3) mm/Hg ARTERIAL BLOOD [id number] 11:00:00 Test Item Value Reference Range Interpretation [...] FIO2 (test code = 21 % COHBGFFIO2) PaO2/[id number] 11:00:00 Test Item Value Reference Range Interpretation Comments PaO2/FiO2 (test code = VSU4CYY7) 297.61 mm/Hg GLUCOSE BEDSIDE [id number] 10:52:00 Test Item Value Reference Range Interpretation Comments GLUCOSE BEDSIDE TESTING (test code 167 MG/DL 60-99 H = GLUBED) GLUCOSE BEDSIDE [id number] 07:30:00 Test Item Value Reference Range Interpretation Comments GLUCOSE BEDSIDE TESTING (test code 148 MG/DL 60-99 H = GLUBED) GLUCOSE BEDSIDE [id number] 20:36:00 Test Item Value Reference Range Interpretation Comments GLUCOSE BEDSIDE TESTING (test code 139 MG/DL 60-99 H = GLUBED) GLUCOSE BEDSIDE [id number] 16:00:00 Test Item Value Reference Range Interpretation Comments GLUCOSE BEDSIDE TESTING (test code 126 MG/DL 60-99 H = GLUBED) [id number] 12:30:00 Test Item Value Reference Range Interpretation Comments VANCOMYCIN (test code = VANCO) 8.3 mcg/ML 5.0-26.0 N GLUCOSE BEDSIDE [id number] 11:19:00 Test Item Value Reference Range Interpretation Comments GLUCOSE BEDSIDE TESTING (test code 118 MG/DL 60-99 H = GLUBED) GLUCOSE BEDSIDE [id number] 07:49:00 Test Item Value Reference Range Interpretation Comments GLUCOSE BEDSIDE TESTING (test code 106 MG/DL 60-99 H = GLUBED) - CT ABD PELVIS [id number] 07:42:00 [facility] 1940 Sex: F Patient Name: JORGE A SHERMAN Unit No: [id number] EXAMS: CPT CODE: [id number] CT ABD PELVIS W/CONT 52753 HISTORY: Persistent WBC EXAM TYPE: CT abdomen [...] There are small layering bilateral pleural effusions wit h adjacent compressive atelectasis. Heart is mildly enlarged. [...] thinning. No hydronephrosis or hydroureter . No obviousnephrolithiasis. Bowel: Air fluid are present in the stomach and small bowel without evidence of bowel obstruction. The appendix is not confidently identified. However, no discrete pericecal inflammation to suggest acute appendicitis. Vessels: There is extensive calcification within the abdominal aorta. No aneurysmal dilatation. Lymph nodes: No adenopathy. [facility] NAME: JORGE A SHERMAN [address] [address] PHYS: [id number] Rodolfo De La Torre MD [address] [place] [address] : 1940 AGE: 79 SEX: F LOC: Z.SI06 A PHONE #: [phone] EXAM DATE: 12/30/2019 STATUS: ADM IN FAX #: [phone] #: D/C DT PAGE 1 Signed Report (CONTINUED) Patient Name: JORGE A SHERMAN Unit No: [id number] EXAMS: CPT CODE: [id number] CT ABD PELVIS W/CONT 23443 (Continued) Peritoneum/retroperitoneum: Small volume abdominal ascites, new from prior exam. There is no free intraperitoneal air. 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 This focus measures 1.6 x 1.8 x 2.3 cm, as before No large hematoma is otherwise seen. 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 Adnexal structures are otherwise within normal limits.There is small small volume pelvic ascites with [...] Small layering bilateral pleural effusions with adjacent a telectasis or developing infiltrates, not significantly changed from [...] the basis of patient's fluid status. 3. 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 4. Otherwise no acute process in the abdomen and pelvis. at 0742 Reported and signed by: Lizzy Ryan MD [facility] NAME: JORGE A SHERMANmond PHYS: Rodolfo Landeros MD [place] [id number] : 1940 AGE: 79 SEX: F LOC: [id number].[id number] A PHONE #: [phone] EXAM DATE: 12/30/2019 STATUS: ADM IN FAX #: [phone] RAD #: D/C DT PAGE 2 Signed Report (CONTINUED) Patient Name: JORGE A SHERMAN Unit No: [id number] EXAMS: CPT CODE: [id number] CT ABD PELVIS W/CONT 93134 (Continued) CC: Tevin Samuels; Ramu Sutherland MD; Rodolfo Dillon MD Technologist: Cole Castano CTDI: DLP: Trnscrpt: 12/30/2019 (0742) [id number] [facility] NAME: JORGE A SHERMAN [place] PHYS: Rodolfo Landeros MD [address] [id number] : 1940 AGE: 79 SEX: F LOC: HAWA06 A PHONE #: [phone] EXAM DATE: 12/30/2019 STATUS: ADM IN FAX #: [phone] RAD #: D/C DT PAGE 3 Signed Report Patient Name: JORGE A SHERMAN Unit No: [id number] EXAMS: CPT CODE: [id number] CT ABD PELVIS W/CONT [id number] (Continued) Orig Print D/T: S: 12/30/2019 (0745) [facility] NAME: JORGE A SHERMAN [id number] [place] PHYS: Rodolfo Landeros MD [address] [address] : 1940 AGE: 79 SEX: F LOC: Z.SI06 A PHONE #: [phone] EXAM DATE: 12/30/2019 STATUS: ADM IN FAX #: [phone] RAD #: D/C DT PAGE 4 Signed ReportBASIC METABOLIC [id number] 05:39:00 Test Item Value Reference Range Interpretation [...] 8.1 MG/DL 8.4-10.2 L CA) BASIC METABOLIC [id number] 05:25:00 Test Item Value Reference Range Interpretation [...] code = MG/DL 8.7-9.7 CA) BASIC METABOLIC [id number] 05:23:00 Test Item Value Reference Range Interpretation [...] code = CA) MG/DL 8.7-9.7 BASIC METABOLIC [id number] 05:22:00 Test Item Value Reference Range Interpretation [...] code = CA) MG/DL 8.7-9.7 CBC W/AUTO [id number] 05:17:00 Test Item Value Reference Range Interpretation [...] = 0.00 K/mm3 0.0-0.1 N NRBC#) DIFFERENTIAL [id number] 05:17:00 Test Item Value Reference Range Interpretation Comments RBC MORPHOLOGY REQUIRED (test code = RBCM) PLATELET ESTIMATE (test code = PLTEST) ADEQUATE PLATELET MORPHOLOGY (test code = NORMAL PLTMORPH) CBC W/AUTO [id number] 05:17:00 Test Item Value Reference Range Interpretation [...] = 0.00 K/mm3 0.0-0.1 N NRBC#) DIFFERENTIAL [id number] 05:17:00 Test Item Value Reference Range Interpretation Comments RBC MORPHOLOGY REQUIRED (test code = RBCM) PLATELET ESTIMATE (test code = PLTEST) ADEQUATE PLATELET MORPHOLOGY (test code = NORMAL PLTMORPH) ARTERIAL BLOOD [id number] 03:21:00 Test Item Value Reference Range Interpretation [...] FIO2 (test code = 32 % COHBGFFIO2) PaO2/[id number] 03:21:00 Test Item Value Reference Range Interpretation Comments PaO2/FiO2 (test code = BIJ1BEO0) mm/Hg ARTERIAL BLOOD [id number] 03:21:00 Test Item Value Reference Range Interpretation [...] FIO2 (test code = 32 % COHBGFFIO2) PaO2/[id number] 03:21:00 Test Item Value Reference Range Interpretation Comments PaO2/FiO2 (test code = BKM3ZQS2) 295.93 mm/Hg GLUCOSE BEDSIDE [id number] 20:10:00 Test Item Value Reference Range Interpretation Comments GLUCOSE BEDSIDE TESTING (test code = 80 MG/DL 60-99 N GLUBED) GLUCOSE BEDSIDE [id number] 17:00:00 Test Item Value Reference Range Interpretation Comments GLUCOSE BEDSIDE TESTING (test code = 99 MG/DL 60-99 N GLUBED) ARTERIAL BLOOD [id number] 16:38:00 Test Item Value Reference Range Interpretation [...] FIO2 (test code = COHBGFFIO2) 36 % PaO2/[id number] 16:38:00 Test Item Value Reference Range Interpretation Comments PaO2/FiO2 (test code = IQP1ZLZ6) mm/Hg ARTERIAL BLOOD [id number] 16:38:00 Test Item Value Reference Range Interpretation [...] FIO2 (test code = COHBGFFIO2) 36 % PaO2/[id number] 16:38:00 Test Item Value Reference Range Interpretation Comments PaO2/FiO2 (test code = NSX6DHM6) 543.05 mm/Hg ARTERIAL BLOOD [id number] 11:48:00 Test Item Value Reference Range Interpretation [...] >37 TEMPA) [facility] AL ALLENS TEST (test code = ALLENS) NA CHECK FIO2 (test code = COHBGFFIO2) 50 % PaO2/[id number] 11:48:00 Test Item Value Reference Range Interpretation Comments PaO2/FiO2 (test code = GTH6QSA2) mm/Hg ARTERIAL BLOOD [id number] 11:48:00 Test Item Value Reference Range Interpretation [...] >37 TEMPA) [facility] AL ALLENS TEST (test code = ALLENS) NA CHECK FIO2 (test code = COHBGFFIO2) 50 % PaO2/[id number] 11:48:00 Test Item Value Reference Range Interpretation Comments PaO2/FiO2 (test code = TGC8ADJ4) 345.40 mm/Hg GLUCOSE BEDSIDE [id number] 11:02:00 Test Item Value Reference Range Interpretation Comments GLUCOSE BEDSIDE TESTING (test code 131 MG/DL 60-99 H = GLUBED) ARTERIAL BLOOD [id number] 10:15:00 Test Item Value Reference Range Interpretation [...] ABG SITE (test code = SITEA) AL DANITA TEST (test code = ALLENS) NA CHECK FIO2 (test code = COHBGFFIO2) 40 % PaO2/[id number] 10:15:00 Test Item Value Reference Range Interpretation Comments PaO2/FiO2 (test code = JWM8YWL7) mm/Hg ARTERIAL BLOOD [id number] 10:15:00 Test Item Value Reference Range Interpretation [...] ABG SITE (test code = SITEA) AL NASREENS TEST (test code = ALLENS) NA CHECK FIO2 (test code = COHBGFFIO2) 40 % PaO2/[id number] 10:15:00 Test Item Value Reference Range Interpretation Comments PaO2/FiO2 (test code = XVV8BMU3) 270.50 mm/Hg GLUCOSE BEDSIDE [id number] 07:25:00 Test Item Value Reference Range Interpretation Comments GLUCOSE BEDSIDE TESTING (test code 103 MG/DL 60-99 H = GLUBED) CBC W/AUTO [id number] 04:50:00 Test Item Value Reference Range Interpretation [...] = 0.02 K/mm3 0.0-0.1 N NRBC#) DIFFERENTIAL [id number] 04:50:00 Test Item Value Reference Range Interpretation Comments RBC MORPHOLOGY REQUIRED (test code = RBCM) PLATELET ESTIMATE (test code = PLTEST) ADEQUATE PLATELET MORPHOLOGY (test code = NORMAL PLTMORPH) CBC W/AUTO [id number] 04:50:00 Test Item Value Reference Range Interpretation [...] = 0.02 K/mm3 0.0-0.1 N NRBC#) DIFFERENTIAL [id number] 04:50:00 Test Item Value Reference Range Interpretation Comments RBC MORPHOLOGY REQUIRED (test code = RBCM) PLATELET ESTIMATE (test code = PLTEST) ADEQUATE PLATELET MORPHOLOGY (test code = NORMAL PLTMORPH) GLUCOSE BEDSIDE [id number] 20:04:00 Test Item Value Reference Range Interpretation Comments GLUCOSE BEDSIDE TESTING (test code 112 MG/DL 60-99 H = GLUBED) ARTERIAL BLOOD [id number] 17:50:00 Test Item Value Reference Range Interpretation [...] FIO2 (test code = COHBGFFIO2) 40 % PaO2/[id number] 17:50:00 Test Item Value Reference Range Interpretation Comments PaO2/FiO2 (test code = NTW7ZGR0) mm/Hg ARTERIAL BLOOD [id number] 17:50:00 Test Item Value Reference Range Interpretation [...] FIO2 (test code = COHBGFFIO2) 40 % PaO2/[id number] 17:50:00 Test Item Value Reference Range Interpretation Comments PaO2/FiO2 (test code = EGR0PFF8) 283.25 mm/Hg GLUCOSE BEDSIDE [id number] 16:16:00 Test Item Value Reference Range Interpretation Comments GLUCOSE BEDSIDE TESTING (test code 102 MG/DL 60-99 H = GLUBED) CBC W/O [id number] 11:57:00 Test Item Value Reference Range Interpretation [...] K/mm3 0.0-0.1 N code = NRBC#) DIFFERENTIAL [id number] 11:57:00 Test Item Value Reference Range Interpretation Comments RBC MORPHOLOGY REQUIRED (test code = NORMAL RBCM) ANISOCYTOSIS (test code = ANISO) SLIGHT NONE MACROCYTOSIS (test code = MACR) FEW NONE PLATELET ESTIMATE (test code = ADEQUATE ADEQUATE PLTEST) PLATELET MORPHOLOGY (test code = NORMAL NORMAL PLTMORPH) WBC [id number] 11:57:00 Test Item Value Reference Range Interpretation [...] code = GERTRUDIS) 0.8 % 0-0 H [id number] 11:46:00 Test Item Value Reference Range Interpretation Comments VANCOMYCIN (test code = VANCO) 13.8 mcg/ML 5.0-26.0 N UNABLE TO DRAW BLOOD, REASON: CBNNOTIFIED PATIENT CARE STAFF: MOSHE 12/28/19 AT 1048 BY Hannah Busby EARTERIAL BLOOD [id number] 11:19:00 Test Item Value Reference Range Interpretation [...] FIO2 (test code = COHBGFFIO2) 40 % PaO2/[id number] 11:19:00 Test Item Value Reference Range Interpretation Comments PaO2/FiO2 (test code = HLL8AZA6) mm/Hg ARTERIAL BLOOD [id number] 11:19:00 Test Item Value Reference Range Interpretation [...] FIO2 (test code = COHBGFFIO2) 40 % PaO2/[id number] 11:19:00 Test Item Value Reference Range Interpretation Comments PaO2/FiO2 (test code = DTS3CEL5) 279.25 mm/Hg GLUCOSE BEDSIDE [id number] 10:39:00 Test Item Value Reference Range Interpretation Comments GLUCOSE BEDSIDE TESTING (test code 153 MG/DL 60-99 H = GLUBED) ARTERIAL BLOOD [id number] 10:05:00 Test Item Value Reference Range Interpretation [...] ABG SITE (test code = SITEA) AL DANITA TEST (test code = ALLENS) NA CHECK FIO2 (test code = COHBGFFIO2) 30 % PaO2/[id number] 10:05:00 Test Item Value Reference Range Interpretation Comments PaO2/FiO2 (test code = VKU4UZG9) 279.66 mm/Hg ARTERIAL BLOOD [id number] 10:04:00 Test Item Value Reference Range Interpretation [...] ABG SITE (test code = SITEA) AL DANITA TEST (test code = ALLENS) NA CHECK FIO2 (test code = COHBGFFIO2) 30 % PaO2/[id number] 10:04:00 Test Item Value Reference Range Interpretation Comments PaO2/FiO2 (test code = IPW1NTG4) mm/Hg CBC W/O [id number] 08:07:00 Test Item Value Reference Range Interpretation Comments WHITE BLOOD CELL (test 32.0 K/MM3 3.8-9.8 MAYNARD Ray MCCRAY R code = WBC) & READBACK ON 12/28/19 AT 080 6 BY Le,Quan RED BLOOD CELL (test 3.66 M/MM3 3.58-4.97 [...] K/mm3 0.0-0.1 N code = NRBC#) DIFFERENTIAL [id number] 08:07:00 Test Item Value Reference Range Interpretation Comments RBC MORPHOLOGY REQUIRED (test code = RBCM) PLATELET ESTIMATE (test code = PLTEST) ADEQUATE PLATELET MORPHOLOGY (test code = NORMAL PLTMORPH) WBC [id number] 08:07:00 Test Item Value Reference Range Interpretation Comments TOTAL CELLS COUNTED (test code = TCC) #CELLS SEGMENTED NEUTROPHILS (test code = % 36.2-73.8 SEG) LYMPHOCYTE (test code = LYMPH) % 12.9-45.1 MONOCYTE (test code = MON) % 0-11 CBC W/AUTO [id number] 08:07:00 Test Item Value Reference Range Interpretation Comments WHITE BLOOD CELL (test 32.0 K/MM3 3.8-9.8 BERNABE MCCRAY R code = WBC) & READBACK [...] K/mm3 0.0-0.1 N code = NRBC#) WBC [id number] 08:07:00 Test Item Value Reference Range Interpretation Comments RBC MORPHOLOGY REQUIRED (test code = RBCM) TOTAL CELLS COUNTED (test code = TCC) #CELLS SEGMENTED NEUTROPHILS (test code = % 36.2-73.8 SEG) LYMPHOCYTE (test code = LYMPH) % 12.9-45.1 MONOCYTE (test code = MON) % 0-11 PLATELET ESTIMATE (test code = ADEQUATE PLTEST) PLATELET MORPHOLOGY (test code = NORMAL PLTMORPH) GLUCOSE BEDSIDE [id number] 07:48:00 Test Item Value Reference Range Interpretation Comments GLUCOSE BEDSIDE TESTING (test code 122 MG/DL 60-99 H = GLUBED) GLUCOSE BEDSIDE [id number] 05:14:00 Test Item Value Reference Range Interpretation Comments GLUCOSE BEDSIDE TESTING (test code 131 MG/DL 60-99 H = GLUBED) GLUCOSE BEDSIDE [id number] 05:14:00 Test Item Value Reference Range Interpretation Comments GLUCOSE BEDSIDE TESTING (test code 115 MG/DL 60-99 H = GLUBED) GLUCOSE BEDSIDE [id number] 05:14:00 Test Item Value Reference Range Interpretation Comments GLUCOSE BEDSIDE TESTING (test code 114 MG/DL 60-99 H = GLUBED) GLUCOSE BEDSIDE [id number] 05:12:00 Test Item Value Reference Range Interpretation Comments GLUCOSE BEDSIDE TESTING (test code 156 MG/DL 60-99 H = GLUBED) GLUCOSE BEDSIDE [id number] 05:12:00 Test Item Value Reference Range Interpretation Comments GLUCOSE BEDSIDE TESTING (test code 161 MG/DL 60-99 H = GLUBED) GLUCOSE BEDSIDE [id number] 05:12:00 Test Item Value Reference Range Interpretation Comments GLUCOSE BEDSIDE TESTING (test code = 84 MG/DL 60-99 N GLUBED) GLUCOSE BEDSIDE [id number] 05:12:00 Test Item Value Reference Range Interpretation Comments GLUCOSE BEDSIDE TESTING (test code 103 MG/DL 60-99 H = GLUBED) GLUCOSE BEDSIDE [id number] 05:12:00 Test Item Value Reference Range Interpretation Comments GLUCOSE BEDSIDE TESTING (test code 175 MG/DL 60-99 H = GLUBED) GLUCOSE BEDSIDE [id number] 05:11:00 Test Item Value Reference Range Interpretation Comments GLUCOSE BEDSIDE TESTING (test code 131 MG/DL 60-99 H = GLUBED) COLON SEGMENT RESEC. NOT [id number] 22:42:00 Test Item Value Reference Range Interpretation Comments COLON SEGMENT RESEC. NOT TUMOR (test code = COLONR) RUN DATE: 12/27/19 [place] - LAB PAGE 1 RUN TIME: 2241 Specimen Inquiry RUN USER: INTERFACE PATIENT: JORGE A SHERMAN LOC: JEF U #: [id number] AGE/SX: 79/F ROOM: [facility] RE11/26/19REG DR: Tevin Samuels MD : 38 BED: A DIS: STATUS: ADM IN TLOC: SPEC #: [id number]:COCHRAN:[id number] RECD: 12/24/19 STATUS: DEVORA RERomain #: [id number] KEENAN: 12/22/19-1999 [facility] DR: Rashid Son MD ENTERED: 12/24/19 SP TYPE: COLONR ALEJANDRA DR: Self Referred Sarah Ovalles DO R2 Joe Higgins MD, Hansaa MD R1 Franck,Odalys CORREIA R1 Adalberto,Donna Sutherland,Ramu Jordan,Raji CORREIA R1 Shell,Jose Alfredo Humphrey,Andrei Conner,Reuben Wilder,Jason Joseph,Juan Dixon,Ezequiel Smith,Georgina Claudio,Georgette CORREIAORDERED: SURG PATH LVL 5 CODES: K79772 U64446 - SMALL INTESTINE ISCHEMIA, NOS U88821 C08281 - SMALL INTESTINE PERFORATION, NO P45392 G53869 - SMALL INTESTINE NECROSIS, NOS R50247 - COLON, NOS W29302 [id number] - COLON, NOS EXCISION, NOS B72053 - TRANSVERSE COLO TE5711 - LYMPH NODE, NOS COPIES TO: Self Referred Sarah Ovalles DO R2 [address] [place] [address] Joe Higgins MD [address] [facility] [address] [place] [phone] Home Bryant MD R1 [address] [place] [address] CONTINUED ON NEXT PAGE RUN DATE: 12/27/19 [place] - LAB PAGE 2 RUN TIME: 2 Specimen Inquiry RUN USER: INTERFACE SPEC #: [id number]:COCHRAN:[id number] PATIENT: JORGE A SHERMAN #[id number] (Continued) --- COPIES TO: (Continued) Odalys Juárez MD R1 [address] [place] [address] [place] [address] [facility] [address] [place] [address] Ramu Sutherland MD [address] [place], [place] [address] Raji Jordan MD R1 [address] [facility] [place] [id number] [place] [address] [facility] [address] Rashid Son MD [address] [facility] [place] [address] @[facility] Andrei Humphrey MD [address] [facility] [address] [place] [address] [place] [address] [facility] [address] [place] [address] Jason Wilder MD [address] [facility] [address] [place] [address] [place] [address] [facility] [address] [place] [address] CONTINUED ON NEXT PAGE RUN DATE: 12/27/19 [place] - LAB PAGE 3 RUN TIME: 2241 Specimen Inquiry RUN USER: INTERFACE SPEC #: [id number]:COCHRAN:[id number] PATIENT: JORGE A SHERMAN #[id number] (Continued) --- COPIES TO: (Continued) Ezequiel Dixon [address] [place] [address] Georgina Smith MD [facility] [address] [place] [address] Georgette Claudio MD [address] [place] [address] PROCEDURES: SURG PATH LVL 5 (12/24/19-1050) TISSUES: A. COLON, NOS - RIGHT AND TRANSVERSE COLON CPT CODES CPT CODE(S): 18249 , , , , , , FINAL [...] [place] - LAB PAGE 4 RUN TIME: 2241 Specimen Inquiry RUN USER: INTERFACE SPEC #: [id number]:COCHRAN:[id number] PATIENT: JORGE A SHERMAN #[id number] (Continued) --- GROSS DESCRIPTION (Continued) serosal surface. [...] final diagnosis. /elizabeth Signed SIGNATURE ON FILE RolandoXander 12/27/19 2242 END OF REPORT ARTERIAL BLOOD [id number] 22:17:00 Test Item Value Reference Range Interpretation [...] FIO2 (test code = COHBGFFIO2) 30 % PaO2/[id number] 22:17:00 Test Item Value Reference Range Interpretation Comments PaO2/FiO2 (test code = UOW8GBP7) mm/Hg ARTERIAL BLOOD [id number] 22:17:00 Test Item Value Reference Range Interpretation [...] FIO2 (test code = COHBGFFIO2) 30 % PaO2/[id number] 22:17:00 Test Item Value Reference Range Interpretation Comments PaO2/FiO2 (test code = YIQ4LBP1) 251.66 mm/Hg ARTERIAL BLOOD [id number] 16:54:00 Test Item Value Reference Range Interpretation [...] FIO2 (test code = COHBGFFIO2) 30 % PaO2/[id number] 16:54:00 Test Item Value Reference Range Interpretation Comments PaO2/FiO2 (test code = MMZ2TZU1) mm/Hg ARTERIAL BLOOD [id number] 16:54:00 Test Item Value Reference Range Interpretation [...] FIO2 (test code = COHBGFFIO2) 30 % PaO2/[id number] 16:54:00 Test Item Value Reference Range Interpretation Comments PaO2/FiO2 (test code = HGJ9ZEY1) 310.33 mm/Hg ARTERIAL BLOOD [id number] 14:42:00 Test Item Value Reference Range Interpretation [...] FIO2 (test code = COHBGFFIO2) 30 % PaO2/[id number] 14:42:00 Test Item Value Reference Range Interpretation Comments PaO2/FiO2 (test code = JKT2UDC4) mm/Hg ARTERIAL BLOOD [id number] 14:42:00 Test Item Value Reference Range Interpretation [...] FIO2 (test code = COHBGFFIO2) 30 % PaO2/[id number] 14:42:00 Test Item Value Reference Range Interpretation Comments PaO2/FiO2 (test code = UNI5UNE6) 270.66 mm/Hg CBC W/O [id number] 14:26:00 Test Item Value Reference Range Interpretation Comments WHITE BLOOD CELL (test 30.9 K/MM3 3.8-9.8 ALEYDA Bell TO Luc P code = WBC) & [...] code = NRBC#) GAVE TUBES TO JUVENCBNDIFFERENTIAL [id number] 14:26:00 Test Item Value Reference Range Interpretation Comments RBC MORPHOLOGY REQUIRED (test code = NORMAL RBCM) ANISOCYTOSIS (test code = ANISO) SLIGHT NONE PLATELET ESTIMATE (test code = ADEQUATE ADEQUATE PLTEST) PLATELET MORPHOLOGY (test code = NORMAL NORMAL PLTMORPH) [facility] [id number] 14:26:00 Test Item Value Reference Range Interpretation [...] 0-0 H GAVE TUBES TO JUVENCBNARTERIAL BLOOD [id number] 14:12:00 Test Item Value Reference Range Interpretation [...] FIO2 (test code = 30 % COHBGFFIO2) PaO2/[id number] 14:12:00 Test Item Value Reference Range Interpretation Comments PaO2/FiO2 (test code = SQR6TUT1) mm/Hg ARTERIAL BLOOD [id number] 14:12:00 Test Item Value Reference Range Interpretation [...] FIO2 (test code = 30 % COHBGFFIO2) PaO2/[id number] 14:12:00 Test Item Value Reference Range Interpretation Comments PaO2/FiO2 (test code = GNS7MFK3) 226.66 mm/Hg GLUCOSE BEDSIDE [id number] 13:23:00 Test Item Value Reference Range Interpretation Comments GLUCOSE BEDSIDE TESTING (test code 122 MG/DL 60-99 H = GLUBED) ARTERIAL BLOOD [id number] 12:31:00 Test Item Value Reference Range Interpretation [...] FIO2 (test code = 24 % COHBGFFIO2) PaO2/[id number] 12:31:00 Test Item Value Reference Range Interpretation Comments PaO2/FiO2 (test code = QAZ9SLH1) mm/Hg ARTERIAL BLOOD [id number] 12:31:00 Test Item Value Reference Range Interpretation [...] FIO2 (test code = 24 % COHBGFFIO2) PaO2/[id number] 12:31:00 Test Item Value Reference Range Interpretation Comments PaO2/FiO2 (test code = NFN0EGZ4) 307.50 mm/Hg GLUCOSE BEDSIDE [id number] 12:00:00 Test Item Value Reference Range Interpretation Comments GLUCOSE BEDSIDE TESTING (test code 128 MG/DL 60-99 H = GLUBED) ARTERIAL BLOOD [id number] 10:42:00 Test Item Value Reference Range Interpretation [...] FIO2 (test code = COHBGFFIO2) 24 % PaO2/[id number] 10:42:00 Test Item Value Reference Range Interpretation Comments PaO2/FiO2 (test code = RHQ3MTD9) mm/Hg ARTERIAL BLOOD [id number] 10:42:00 Test Item Value Reference Range Interpretation [...] FIO2 (test code = COHBGFFIO2) 24 % PaO2/[id number] 10:42:00 Test Item Value Reference Range Interpretation Comments PaO2/FiO2 (test code = SDY3MWG7) 347.91 mm/Hg ARTERIAL BLOOD [id number] 09:30:00 Test Item Value Reference Range Interpretation [...] FIO2 (test code = COHBGFFIO2) 24 % PaO2/[id number] 09:30:00 Test Item Value Reference Range Interpretation Comments PaO2/FiO2 (test code = HQE9GVU2) mm/Hg ARTERIAL BLOOD [id number] 09:30:00 Test Item Value Reference Range Interpretation [...] FIO2 (test code = COHBGFFIO2) 24 % PaO2/[id number] 09:30:00 Test Item Value Reference Range Interpretation Comments PaO2/FiO2 (test code = MEQ2HUC4) 315.41 mm/Hg BASIC METABOLIC [id number] 07:27:00 Test Item Value Reference Range Interpretation [...] MG/DL 8.4-10.2 N CA) GAVE TUBES TO [id number] 07:27:00 Test Item Value Reference Range Interpretation Comments PHOSPHOROUS (test code = PHOS) 4.2 MG/DL 2.5-4.5 N GAVE TUBES TO [id number] 07:27:00 Test Item Value Reference Range Interpretation Comments MAGNESIUM (test code = MAG) 2.0 MG/DL 1.6-2.3 N GAVE TUBES TO JUVENCBNBASIC METABOLIC [id number] 07:26:00 Test Item Value Reference Range Interpretation [...] = MG/DL 8.7-9.7 CA) GAVE TUBES TO [id number] 07:26:00 Test Item Value Reference Range Interpretation Comments PHOSPHOROUS (test code = PHOS) MG/DL 2.5-4.5 GAVE TUBES TO [id number] 07:26:00 Test Item Value Reference Range Interpretation Comments MAGNESIUM (test code = MAG) MG/DL 1.6-2.3 [facility]ES TO [facility]OL[facility] [id number] 07:23:00 Test Item Value Reference Range Interpretation [...] = CA) MG/DL 8.7-9.7 GAVE TUBES TO [id number] 07:23:00 Test Item Value Reference Range Interpretation Comments PHOSPHOROUS (test code = PHOS) MG/DL 2.5-4.5 GAVE TUBES TO [id number] 07:23:00 Test Item Value Reference Range Interpretation Comments MAGNESIUM (test code = MAG) MG/DL 1.6-2.3 G[facility] TUBES TO [facility] W/O [id number] 07:20:00 Test Item Value Reference Range Interpretation Comments WHITE BLOOD CELL (test 30.9 K/MM3 3.8-9.8 HH MAYNARD D TO Luc P code = WBC) & READBACK ON 12/27/19 AT 072 0 BY James Bena RED BLOOD CELL (test 3.87 M/MM3 3.58-4.97 [...] code = NRBC#) GAVE TUBES TO JUVENCBNDIFFERENTIAL [id number] 07:20:00 Test Item Value Reference Range Interpretation Comments RBC MORPHOLOGY REQUIRED (test code = RBCM) PLATELET ESTIMATE (test code = PLTEST) ADEQUATE PLATELET MORPHOLOGY (test code = NORMAL PLTMORPH) GAVE TUBES TO JUVENCBNWBC [id number] 07:20:00 Test Item Value Reference Range Interpretation Comments TOTAL CELLS COUNTED (test code = TCC) #CELLS SEGMENTED NEUTROPHILS (test code = % 36.2-73.8 SEG) LYMPHOCYTE (test code = LYMPH) % 12.9-45.1 MONOCYTE (test code = MON) % 0-11 GAVE TUBES TO JUVENCBNCBC W/AUTO [id number] 07:20:00 Test Item Value Reference Range Interpretation Comments WHITE BLOOD CELL (test 30.9 K/MM3 3.8-9.8 HH MAYNARD D TO Luc P code = WBC) & READBACK ON 12/27/19 AT 072 0 BY James [employer] RED BLOOD CELL (test 3.87 M/MM3 3.58-4.97 [...] code = NRBC#) GAVE TUBES TO JUVENCBNWBC [id number] 07:20:00 Test Item Value Reference Range Interpretation [...] NORMAL PLTMORPH) GAVE TUBES TO JUVENCBNGLUCOSE BEDSIDE [id number] 20:59:00 Test Item Value Reference Range Interpretation Comments GLUCOSE BEDSIDE TESTING (test code 108 MG/DL 60-99 H = GLUBED) HGB [id number] 20:16:00 Test Item Value Reference Range Interpretation Comments HEMOGLOBIN (test code = HGB) 10.4 G/DL 11.2-14.9 L HEMATOCRIT (test code = HCT) 31.8 % 33.2-43.5 L ARTERIAL BLOOD [id number] 20:09:00 Test Item Value Reference Range Interpretation [...] FIO2 (test code = 24 % COHBGFFIO2) PaO2/[id number] 20:09:00 Test Item Value Reference Range Interpretation Comments PaO2/FiO2 (test code = [id number]) mm/Hg ARTERIAL BLOOD [id number] 20:09:00 Test Item Value Reference Range Interpretation [...] FIO2 (test code = 24 % COHBGFFIO2) PaO2/[id number] 20:09:00 Test Item Value Reference Range Interpretation Comments PaO2/FiO2 (test code = [id number]) 378.75 mm/Hg ARTERIAL BLOOD [id number] 16:56:00 Test Item Value Reference Range Interpretation [...] FIO2 (test code = 24 % COHBGFFIO2) PaO2/[id number] 16:56:00 Test Item Value Reference Range Interpretation Comments PaO2/FiO2 (test code = [id number]) mm/Hg ARTERIAL BLOOD [id number] 16:56:00 Test Item Value Reference Range Interpretation [...] FIO2 (test code = 24 % COHBGFFIO2) PaO2/[id number] 16:56:00 Test Item Value Reference Range Interpretation Comments PaO2/FiO2 (test code = [id number]) 413.75 mm/Hg GLUCOSE BEDSIDE [id number] 16:14:00 Test Item Value Reference Range Interpretation Comments GLUCOSE BEDSIDE TESTING (test code 106 MG/DL 60-99 H = GLUBED) HGB [id number] 15:44:00 Test Item Value Reference Range Interpretation Comments HEMOGLOBIN (test code = HGB) 9.9 G/DL 11.2-14.9 L HEMATOCRIT (test code = HCT) 29.1 % 33.2-43.5 L LACTIC [id number] 11:54:00 Test Item Value Reference Range Interpretation Comments LACTIC ACID (test code = LACT) 1.7 MMOL/L 0.7-2.1 N GLUCOSE BEDSIDE [id number] 11:16:00 Test Item Value Reference Range Interpretation Comments GLUCOSE BEDSIDE TESTING (test code 123 MG/DL 60-99 H = GLUBED) ARTERIAL BLOOD [id number] 10:36:00 Test Item Value Reference Range Interpretation [...] ABG SITE (test code = SITEA) AL ALLENJose TEST (test code = ALLENS) NA CHECK FIO2 (test code = COHBGFFIO2) 24 % PaO2/[id number] 10:36:00 Test Item Value Reference Range Interpretation Comments PaO2/FiO2 (test code = [id number]) mm/Hg ARTERIAL BLOOD [id number] 10:36:00 Test Item Value Reference Range Interpretation [...] FIO2 (test code = COHBGFFIO2) 24 % PaO2/[id number] 10:36:00 Test Item Value Reference Range Interpretation Comments PaO2/FiO2 (test code = UCA1YOD0) 414.16 mm/Hg HGB [id number] 07:58:00 Test Item Value Reference Range Interpretation Comments HEMOGLOBIN (test code = HGB) 9.6 G/DL 11.2-14.9 L HEMATOCRIT (test code = HCT) 28.7 % 33.2-43.5 L GLUCOSE BEDSIDE [id number] 07:48:00 Test Item Value Reference Range Interpretation Comments GLUCOSE BEDSIDE TESTING 120 MG/DL 60-99 H Noti fied Nurse~ (test code = GLUBED) [id number] 05:42:00 Test Item Value Reference Range Interpretation Comments VANCOMYCIN (test code = VANCO) 16.2 mcg/ML 5.0-26.0 N BASIC METABOLIC [id number] 05:38:00 Test Item Value Reference Range Interpretation [...] code = 8.6 MG/DL 8.4-10.2 N CA) [id number] 05:38:00 Test Item Value Reference Range Interpretation Comments PHOSPHOROUS (test code = PHOS) 3.8 MG/DL 2.5-4.5 N [id number] 05:38:00 Test Item Value Reference Range Interpretation Comments MAGNESIUM (test code = MAG) 2.0 MG/DL 1.6-2.3 N BASIC METABOLIC [id number] 05:37:00 Test Item Value Reference Range Interpretation [...] CALCIUM (test code = MG/DL 8.7-9.7 CA) [id number] 05:37:00 Test Item Value Reference Range Interpretation Comments PHOSPHOROUS (test code = PHOS) 3.8 MG/DL 2.5-4.5 N [id number] 05:37:00 Test Item Value Reference Range Interpretation Comments MAGNESIUM (test code = MAG) MG/DL 1.6-2.3 LACTIC [id number] 05:37:00 Test Item Value Reference Range Interpretation Comments LACTIC ACID (test code = LACT) 1.5 MMOL/L 0.7-2.1 N PROTHROMBIN [id number] 05:37:00 Test Item Value Reference Range Interpretation [...] dial infarction. 2. 0 - 3.0 3. Web Marketing Manager al prosthesis hear t valves, recurre nt systemic emboli sm. 3.0 - 4.5 BASIC METABOLIC [id number] 05:36:00 Test Item Value Reference Range Interpretation [...] CALCIUM (test code = MG/DL 8.7-9.7 CA) [id number] 05:36:00 Test Item Value Reference Range Interpretation Comments PHOSPHOROUS (test code = PHOS) MG/DL 2.5-4.5 [id number] 05:36:00 Test Item Value Reference Range Interpretation Comments MAGNESIUM (test code = MAG) MG/DL 1.6-2.3 BASIC METABOLIC [id number] 05:33:00 Test Item Value Reference Range Interpretation [...] CALCIUM (test code = CA) MG/DL 8.7-9.7 [id number] 05:33:00 Test Item Value Reference Range Interpretation Comments PHOSPHOROUS (test code = PHOS) MG/DL 2.5-4.5 [id number] 05:33:00 Test Item Value Reference Range Interpretation Comments MAGNESIUM (test code = MAG) MG/DL 1.6-2.3 BASIC METABOLIC [id number] 05:33:00 Test Item Value Reference Range Interpretation [...] CALCIUM (test code = CA) MG/DL 8.7-9.7 [id number] 05:33:00 Test Item Value Reference Range Interpretation Comments PHOSPHOROUS (test code = PHOS) MG/DL 2.5-4.5 [id number] 05:33:00 Test Item Value Reference Range Interpretation Comments MAGNESIUM (test code = MAG) MG/DL 1.6-2.3 CBC W/AUTO [id number] 05:26:00 Test Item Value Reference Range Interpretation [...] = 0.03 K/mm3 0.0-0.1 N NRBC#) DIFFERENTIAL [id number] 05:26:00 Test Item Value Reference Range Interpretation Comments RBC MORPHOLOGY REQUIRED (test code = RBCM) PLATELET ESTIMATE (test code = PLTEST) ADEQUATE PLATELET MORPHOLOGY (test code = NORMAL PLTMORPH) CBC W/AUTO [id number] 05:26:00 Test Item Value Reference Range Interpretation [...] = 0.03 K/mm3 0.0-0.1 N NRBC#) DIFFERENTIAL [id number] 05:26:00 Test Item Value Reference Range Interpretation Comments RBC MORPHOLOGY REQUIRED (test code = RBCM) PLATELET ESTIMATE (test code = PLTEST) ADEQUATE PLATELET MORPHOLOGY (test code = NORMAL PLTMORPH) ARTERIAL BLOOD [id number] 04:54:00 Test Item Value Reference Range Interpretation [...] FIO2 (test code = 24 % COHBGFFIO2) PaO2/[id number] 04:54:00 Test Item Value Reference Range Interpretation Comments PaO2/FiO2 (test code = DQU0UJD9) mm/Hg ARTERIAL BLOOD [id number] 04:54:00 Test Item Value Reference Range Interpretation [...] (test code -3.5 mmol/L -3.0-3.0 L = TSEVEN) ABG O2 SATURATION (test 97.6 % 95.0-100.0 N All critical values code = SATA) report to and readback by by [email or web address] at 12/26/2019 4:47 :35 AM ABG DELIVERY [...] FIO2 (test code = 24 % COHBGFFIO2) PaO2/[id number] 04:54:00 Test Item Value Reference Range Interpretation Comments PaO2/FiO2 (test code = FML0ERP7) 394.16 mm/Hg GLUCOSE BEDSIDE [id number] 21:17:00 Test Item Value Reference Range Interpretation Comments GLUCOSE BEDSIDE TESTING (test code 127 MG/DL 60-99 H = GLUBED) HGB [id number] 19:42:00 Test Item Value Reference Range Interpretation Comments HEMOGLOBIN (test code = HGB) 10.1 G/DL 11.2-14.9 L HEMATOCRIT (test code = HCT) 30.4 % 33.2-43.5 L UNABLE TO DRAW BLOOD, REASON: CBNNOTIFIED PATIENT CARE STAFF: [facility] 12/25/19 AT 1744 BY Boris Henry AnGLUCOSE BEDSIDE [id number] 15:53:00 Test Item Value Reference Range Interpretation Comments GLUCOSE BEDSIDE TESTING 135 MG/DL 60-99 H Noti fied Nurse~ (test code = GLUBED) LACTIC [id number] 15:16:00 Test Item Value Reference Range Interpretation Comments LACTIC ACID (test code = LACT) 1.6 MMOL/L 0.7-2.1 N UNABLE TO DRAW BLOOD, REASON: CBNNOTIFIED PATIENT CARE STAFF: [facility] 12/25/19 AT 1412 BY Boris HenryVANCOMYCIN [id number] 15:12:00 Test Item Value Reference Range Interpretation Comments VANCOMYCIN TROUGH (test code = 20.4 UG/ML 10.0-20.0 H VANCT) UNABLE TO DRAW BLOOD, REASON: CBNNOTIFIED PATIENT CARE STAFF: [facility] 12/25/19 AT 1411 BY Boris HenryHGB [id number] 14:45:00 Test Item Value Reference Range Interpretation Comments HEMOGLOBIN (test code = HGB) 10.5 G/DL 11.2-14.9 L HEMATOCRIT (test code = HCT) 31.2 % 33.2-43.5 L UNABLE TO DRAW BLOOD, REASON: CBNNOTIFIED PATIENT CARE STAFF: [facility] 12/25/19 AT 1412 BY Boris Henry AnLACTIC [id number] 12:57:00 Test Item Value Reference Range Interpretation Comments LACTIC ACID (test code = LACT) 1.4 MMOL/L 0.7-2.1 N GLUCOSE BEDSIDE [id number] 12:18:00 Test Item Value Reference Range Interpretation Comments GLUCOSE BEDSIDE TESTING 136 MG/DL 60-99 H Noti fied Nurse~ (test code = GLUBED) HGB [id number] 08:53:00 Test Item Value Reference Range Interpretation Comments HEMOGLOBIN (test code = HGB) 10.2 G/DL 11.2-14.9 L HEMATOCRIT (test code = HCT) 30.2 % 33.2-43.5 L UNABLE TO DRAW BLOOD, REASON: CBNNOTIFIED PATIENT CARE STAFF: [facility] 12/25/19 AT 0835 BY Aydee Daniels XR CHEST [id number] 07:44:00 [facility] 1940 Sex: F Patient Name: JORGE A SHERMAN Unit No: [id number] EXAMS: CPT CODE: [id number] XR CHEST 1V 26798 LOCATION: T18 EXAM: CHEST 1 VIEW INDICATION: [...] t.SDR.JP19 Orig Print D/T: S: 12/25/2019 (0747) [facility] NAME: JORGE A SHERMAN [id number] [address] PHYS: [place] [address] : 1940 AGE: 79 SEX: F LOC: Z.SI06 A PHONE #: [phone] EXAM DATE: 12/25/2019 STATUS: ADM IN FAX #: [phone] RADIOLOGY NO: PAGE 1 Signed ReportGLUCOSE BEDSIDE [id number] 07:42:00 Test Item Value Reference Range Interpretation Comments GLUCOSE BEDSIDE TESTING 132 MG/DL 60-99 H Noti fied Nurse~ (test code = GLUBED) PROTHROMBIN [id number] 05:02:00 Test Item Value Reference Range Interpretation [...] dial infarction. 2. 0 - 3.0 3. Web Marketing Manager al prosthesis hear t valves, recurre nt systemic emboli sm. 3.0 - 4.5 ARTERIAL BLOOD [id number] 04:55:00 Test Item Value Reference Range Interpretation [...] FIO2 (test code = COHBGFFIO2) 35 % PaO2/[id number] 04:55:00 Test Item Value Reference Range Interpretation Comments PaO2/FiO2 (test code = OAZ0OQQ8) mm/Hg ARTERIAL BLOOD [id number] 04:55:00 Test Item Value Reference Range Interpretation [...] FIO2 (test code = COHBGFFIO2) 35 % PaO2/[id number] 04:55:00 Test Item Value Reference Range Interpretation Comments PaO2/FiO2 (test code = ITB2DXE6) 242.85 mm/Hg CBC W/O [id number] 04:33:00 Test Item Value Reference Range Interpretation [...] K/mm3 0.0-0.1 N code = NRBC#) DIFFERENTIAL [id number] 04:33:00 Test Item Value Reference Range Interpretation Comments RBC MORPHOLOGY REQUIRED (test code = ABNORMAL RBCM) POIKILOCYTOSIS (test code = POIK) FEW NONE ANISOCYTOSIS (test code = ANISO) SLIGHT NONE CRENATED CELLS (test code = CREN) FEW NONE PLATELET ESTIMATE (test code = ADEQUATE ADEQUATE PLTEST) PLATELET MORPHOLOGY (test code = NORMAL NORMAL PLTMORPH) WBC [id number] 04:33:00 Test Item Value Reference Range Interpretation [...] MON) 2.5 % 0-11 N CBC W/O [id number] 03:36:00 Test Item Value Reference Range Interpretation [...] K/mm3 0.0-0.1 N code = NRBC#) DIFFERENTIAL [id number] 03:36:00 Test Item Value Reference Range Interpretation Comments RBC MORPHOLOGY REQUIRED (test code = RBCM) PLATELET ESTIMATE (test code = PLTEST) ADEQUATE PLATELET MORPHOLOGY (test code = NORMAL PLTMORPH) WBC [id number] 03:36:00 Test Item Value Reference Range Interpretation Comments TOTAL CELLS COUNTED (test code = TCC) #CELLS SEGMENTED NEUTROPHILS (test code = % 36.2-73.8 SEG) LYMPHOCYTE (test code = LYMPH) % 12.9-45.1 MONOCYTE (test code = MON) % 0-11 CBC W/AUTO [id number] 03:36:00 Test Item Value Reference Range Interpretation [...] K/mm3 0.0-0.1 N code = NRBC#) WBC [id number] 03:36:00 Test Item Value Reference Range Interpretation Comments RBC MORPHOLOGY REQUIRED (test code = RBCM) TOTAL CELLS COUNTED (test code = TCC) #CELLS SEGMENTED NEUTROPHILS (test code = % 36.2-73.8 SEG) LYMPHOCYTE (test code = LYMPH) % 12.9-45.1 MONOCYTE (test code = MON) % 0-11 PLATELET ESTIMATE (test code = ADEQUATE PLTEST) PLATELET MORPHOLOGY (test code = NORMAL PLTMORPH) BASIC METABOLIC [id number] 03:28:00 Test Item Value Reference Range Interpretation [...] code = 8.6 MG/DL 8.4-10.2 N CA) [id number] 03:28:00 Test Item Value Reference Range Interpretation Comments PHOSPHOROUS (test code = PHOS) 3.4 MG/DL 2.5-4.5 N [id number] 03:28:00 Test Item Value Reference Range Interpretation Comments MAGNESIUM (test code = MAG) 2.3 MG/DL 1.6-2.3 [id number] 21:06:00 Test Item Value Reference Range Interpretation Comments POTASSIUM (test code = K) 3.8 MMOL/L 3.5-5.1 N UNABLE TO DRAW BLOOD, REASON: CBNNOTIFIED PATIENT CARE STAFF: [facility] 12/24/192019 BY Boris Henry [id number] 21:06:00 Test Item Value Reference Range Interpretation Comments CALCIUM (test code = CA) 8.1 MG/DL 8.4-10.2 L UNABLE TO DRAW BLOOD, REASON: CBNNOTIFIED PATIENT CARE STAFF: [facility] 12/24/192019 BY Boris Henry [id number] 21:06:00 Test Item Value Reference Range Interpretation Comments MAGNESIUM (test code = MAG) 1.9 MG/DL 1.6-2.3 UNABLE TO DRAW BLOOD, REASON: CBNNOTIFIED PATIENT CARE STAFF: [facility] 12/24/192019 BY Boris Henry [id number] 21:05:00 Test Item Value Reference Range Interpretation Comments POTASSIUM (test code = K) 3.8 MMOL/L 3.5-5.1 N UNABLE TO DRAW BLOOD, REASON: CBNNOTIFIED PATIENT CARE STAFF: [facility] 12/24/192019 BY Boris Henry [id number] 21:05:00 Test Item Value Reference Range Interpretation Comments CALCIUM (test code = CA) 8.1 MG/DL 8.4-10.2 L UNABLE TO DRAW BLOOD, REASON: CBNNOTIFIED PATIENT CARE STAFF: [facility] 12/24/192019 BY Boris Henry [id number] 21:05:00 Test Item Value Reference Range Interpretation Comments MAGNESIUM (test code = MAG) MG/DL 1.6-2.3 UNABLE TO DRAW BLOOD, REASON: CBNNOTIFIED PATIENT CARE STAFF: [facility] 12/24/192019 BY Boris Henry [id number] 21:02:00 Test Item Value Reference Range Interpretation Comments POTASSIUM (test code = K) 3.8 MMOL/L 3.5-5.1 N UNABLE TO DRAW BLOOD, REASON: CBNNOTIFIED PATIENT CARE STAFF: [facility] 12/24/192019 BY Boris Henry [id number] 21:02:00 Test Item Value Reference Range Interpretation Comments CALCIUM (test code = CA) MG/DL 8.7-9.7 UNABLE TO DRAW BLOOD, REASON: CBNNOTIFIED PATIENT CARE STAFF: [facility] 12/24/192019 BY Boris Henry [id number] 21:02:00 Test Item Value Reference Range Interpretation Comments MAGNESIUM (test code = MAG) MG/DL 1.6-2.3 UNABLE TO DRAW BLOOD, REASON: CBNNOTIFIED PATIENT CARE STAFF: [facility] 12/24/192019 BY Boris HenryHGB [id number] 20:48:00 Test Item Value Reference Range Interpretation Comments HEMOGLOBIN (test code = HGB) 8.2 G/DL 11.2-14.9 L HEMATOCRIT (test code = HCT) 24.2 % 33.2-43.5 L UNABLE TO DRAW BLOOD, REASON: CBNNOTIFIED PATIENT CARE STAFF: [facility] 12/24/19 AT 2019 BY Boris Henry AnGLUCOSE BEDSIDE [id number] 20:27:00 Test Item Value Reference Range Interpretation Comments GLUCOSE BEDSIDE TESTING (test code 139 MG/DL 60-99 H = GLUBED) VANCOMYCIN [id number] 16:07:00 Test Item Value Reference Range Interpretation Comments VANCOMYCIN TROUGH (test code = 15.9 UG/ML 10.0-20.0 N VANCT) UNABLE TO DRAW BLOOD, REASON: CBNNOTIFIED PATIENT CARE STAFF: [facility] 12/24/19 AT 1519 BY Boris Henry AnARTERIAL BLOOD [id number] 15:59:00 Test Item Value Reference Range Interpretation [...] FIO2 (test code = 35 % COHBGFFIO2) PaO2/[id number] 15:59:00 Test Item Value Reference Range Interpretation Comments PaO2/FiO2 (test code = TZV1HJQ9) mm/Hg ARTERIAL BLOOD [id number] 15:59:00 Test Item Value Reference Range Interpretation [...] FIO2 (test code = 35 % COHBGFFIO2) PaO2/[id number] 15:59:00 Test Item Value Reference Range Interpretation Comments PaO2/FiO2 (test code = IVH4AWI3) 298.28 mm/Hg PTT [id number] 15:58:00 Test Item Value Reference Range Interpretation Comments PTT ACTIVATED (test code = APTT) 39.0 SECONDS 25.1-36.5 H UNABLE TO DRAW BLOOD, REASON: CBNNOTIFIED PATIENT CARE STAFF: [facility] 12/24/19 AT 1519 BY Boris Henry [id number] 15:41:00 Test Item Value Reference Range Interpretation Comments HEMOGLOBIN (test code = HGB) 8.2 G/DL 11.2-14.9 L HEMATOCRIT (test code = HCT) 24.6 % 33.2-43.5 L UNABLE TO DRAW BLOOD, REASON: CBNNOTIFIED PATIENT CARE STAFF: [facility] 12/24/19 AT 1519 BY Boris Henry BLOOD [id number] 13:00:00 Test Item Value Reference Range Interpretation [...] FIO2 (test code = COHBGFFIO2) 35 % PaO2/[id number] 13:00:00 Test Item Value Reference Range Interpretation Comments PaO2/FiO2 (test code = QDW9DLV2) mm/Hg ARTERIAL BLOOD [id number] 13:00:00 Test Item Value Reference Range Interpretation [...] FIO2 (test code = COHBGFFIO2) 35 % PaO2/[id number] 13:00:00 Test Item Value Reference Range Interpretation Comments PaO2/FiO2 (test code = MZO8UAW6) 318.57 mm/Hg HGB [id number] 12:52:00 Test Item Value Reference Range Interpretation Comments HEMOGLOBIN (test code = HGB) 8.3 G/DL 11.2-14.9 L HEMATOCRIT (test code = HCT) 25.1 % 33.2-43.5 L ARTERIAL BLOOD [id number] 09:55:00 Test Item Value Reference Range Interpretation [...] code = 0.3 % 0.4-1.5 L METHGB) PaO2/[id number] 09:55:00 Test Item Value Reference Range Interpretation Comments PaO2/FiO2 (test code = RVH4WFB7) mm/Hg ARTERIAL BLOOD [id number] 09:55:00 Test Item Value Reference Range Interpretation [...] code = 0.3 % 0.4-1.5 L METHGB) PaO2/[id number] 09:55:00 Test Item Value Reference Range Interpretation Comments PaO2/FiO2 (test code = UEN9AER5) 318.57 mm/Hg [id number] 09:53:00 Test Item Value Reference Range Interpretation Comments PHOSPHOROUS (test code = PHOS) 3.7 MG/DL 2.5-4.5 N [id number] 09:53:00 Test Item Value Reference Range Interpretation Comments MAGNESIUM (test code = MAG) 1.5 MG/DL 1.6-2.3 L LACTIC [id number] 09:12:00 Test Item Value Reference Range Interpretation Comments LACTIC ACID (test code = LACT) 1.5 MMOL/L 0.7-2.1 N HGB [id number] 08:55:00 Test Item Value Reference Range Interpretation Comments HEMOGLOBIN (test code = HGB) 8.5 G/DL 11.2-14.9 L HEMATOCRIT (test code = HCT) 25.3 % 33.2-43.5 L CBC W/O [id number] 07:59:00 Test Item Value Reference Range Interpretation [...] K/mm3 0.0-0.1 N code = NRBC#) DIFFERENTIAL [id number] 07:59:00 Test Item Value Reference Range Interpretation Comments RBC MORPHOLOGY REQUIRED (test code = NORMAL RBCM) POIKILOCYTOSIS (test code = POIK) FEW NONE GIAN CELLS (test code = GIAN) FEW NONE PLATELET ESTIMATE (test code = ADEQUATE ADEQUATE PLTEST) PLATELET MORPHOLOGY (test code = NORMAL NORMAL PLTMORPH) WBC [id number] 07:59:00 Test Item Value Reference Range Interpretation [...] 0-0 H code = NRBC) GLUCOSE BEDSIDE [id number] 07:55:00 Test Item Value Reference Range Interpretation Comments GLUCOSE BEDSIDE TESTING (test code 125 MG/DL 60-99 H = GLUBED) - XR CHEST [id number] 06:07:00 [facility] 1940 Sex: F Patient Name: JORGE A SHERMAN Unit No: [id number] EXAMS: CPT CODE: [id number] XR CHEST 1V 73356 Examination: One view chest x-ray Location code: H60 Comparison: 12/23/2019 Discussion: Clinical history is remarkable for shortness of breath. Endotracheal tube and nasogastric tube are again identified and essentially unchanged in position. Heart is unchanged in size. Patient is status post sternotomy. A confluentinfiltrate is identified in the left upper lobe essentially unchanged when compared to the prior study. Bilateral effusions are identified unchanged. Impression: 1. Infiltrate in left upper lobe and small bilateral pleural effusions stable when compared to the prior study. 2. Endotracheal tube and vinayak ogastric tube stable in position when compared to the prior exam. at 0607 Reported and signed by: Anthony Boyer MD CC: Ramu Sutherland MD; Jose Alfredo Goff MD; Rashid Son MD Technologist: Yobani Elias, RT(R) Transcrpt Date/Tm/Trnsp: 12/24/2019 (606) Dorys.VR5 Orig Print D/T: S: 12/24/2019 (06) [facility] NAME: EFREN SHERMANA[address] PHYS: [place] [address] : 1940 AGE: 79 SEX: F LOC: Z.SI06 A PHONE #: [phone] EXAM DATE: 12/24/2019 STATUS: ADM IN FAX #: [phone] RADIOLOGY NO: PAGE 1 Signed ReportCOMPREHENSIVE METABOLIC [id number] 05:40:00 Test Item Value Reference Range Interpretation [...] N (test code = ALKP) COMPREHENSIVE METABOLIC [id number] 05:38:00 Test Item Value Reference Range Interpretation [...] UNITS/L 38-126 (test code = ALKP) LACTIC [id number] 05:38:00 Test Item Value Reference Range Interpretation Comments LACTIC ACID (test code = LACT) 2.1 MMOL/L 0.7-2.1 N COMPREHENSIVE METABOLIC [id number] 05:37:00 Test Item Value Reference Range Interpretation [...] code = UNITS/L 38-126 ALKP) COMPREHENSIVE METABOLIC [id number] 05:36:00 Test Item Value Reference Range Interpretation [...] (test code = UNITS/L 38-126 ALKP) PROTHROMBIN [id number] 05:32:00 Test Item Value Reference Range Interpretation [...] dial infarction. 2. 0 - 3.0 3. Web Marketing Manager al prosthesis hear t valves, recurre nt systemic emboli sm. 3.0 - 4.5 CBC W/O [id number] 05:27:00 Test Item Value Reference Range Interpretation [...] K/mm3 0.0-0.1 N code = NRBC#) DIFFERENTIAL [id number] 05:27:00 Test Item Value Reference Range Interpretation Comments RBC MORPHOLOGY REQUIRED (test code = RBCM) PLATELET ESTIMATE (test code = PLTEST) ADEQUATE PLATELET MORPHOLOGY (test code = NORMAL PLTMORPH) WBC [id number] 05:27:00 Test Item Value Reference Range Interpretation Comments TOTAL CELLS COUNTED (test code = TCC) #CELLS SEGMENTED NEUTROPHILS (test code = % 36.2-73.8 SEG) LYMPHOCYTE (test code = LYMPH) % 12.9-45.1 MONOCYTE (test code = MON) % 0-11 CBC W/AUTO [id number] 05:27:00 Test Item Value Reference Range Interpretation Comments WHITE BLOOD CELL (test 33.9 K/MM3 3.8-9.8 MAYNARD D TO MARY M code = [...] K/mm3 0.0-0.1 N code = NRBC#) WBC [id number] 05:27:00 Test Item Value Reference Range Interpretation Comments RBC MORPHOLOGY REQUIRED (test code = RBCM) TOTAL CELLS COUNTED (test code = TCC) #CELLS SEGMENTED NEUTROPHILS (test code = % 36.2-73.8 SEG) LYMPHOCYTE (test code = LYMPH) % 12.9-45.1 MONOCYTE (test code = MON) % 0-11 PLATELET ESTIMATE (test code = ADEQUATE PLTEST) PLATELET MORPHOLOGY (test code = NORMAL PLTMORPH) HGB [id number] 00:34:00 Test Item Value Reference Range Interpretation Comments HEMOGLOBIN (test code = HGB) 7.4 G/DL 11.2-14.9 L HEMATOCRIT (test code = HCT) 23.1 % 33.2-43.5 L LACTIC [id number] 00:28:00 Test Item Value Reference Range Interpretation Comments LACTIC ACID (test code = LACT) 2.2 MMOL/L 0.7-2.1 H GLUCOSE BEDSIDE [id number] 00:12:00 Test Item Value Reference Range Interpretation Comments GLUCOSE BEDSIDE TESTING (test code = 88 MG/DL 60-99 N GLUBED) GLUCOSE BEDSIDE [id number] 22:03:00 Test Item Value Reference Range Interpretation Comments GLUCOSE BEDSIDE TESTING (test code = 75 MG/DL 60-99 N GLUBED) LACTIC [id number] 18:59:00 Test Item Value Reference Range Interpretation Comments LACTIC ACID (test code = LACT) 2.7 MMOL/L 0.7-2.1 H UNABLE TO DRAW BLOOD, REASON: CBNNOTIFIED PATIENT CARE STAFF: [facility] 12/23/19 AT 1333 BY Boris Henry AnGLUCOSE BEDSIDE [id number] 16:34:00 Test Item Value Reference Range Interpretation Comments GLUCOSE BEDSIDE TESTING (test code = 81 MG/DL 60-99 N GLUBED) LACTIC [id number] 16:07:00 Test Item Value Reference Range Interpretation Comments LACTIC ACID (test code = LACT) 2.8 MMOL/L 0.7-2.1 H UNABLE TO DRAW BLOOD, REASON: CBNNOTIFIED PATIENT CARE STAFF: [facility] 12/23/19 AT 1333 BY Boris Henry [id number] 15:54:00 Test Item Value Reference Range Interpretation Comments HEMOGLOBIN (test code = HGB) 7.8 G/DL 11.2-14.9 L UNABLE TO DRAW BLOOD, REASON: CBNNOTIFIED PATIENT CARE STAFF: [facility] 12/23/19 AT 133 BY Boris HenryHGB [id number] 12:42:00 Test Item Value Reference Range Interpretation Comments HEMOGLOBIN (test code = HGB) 9.4 G/DL 11.2-14.9 L HEMATOCRIT (test code = HCT) 28.8 % 33.2-43.5 L BASIC METABOLIC [id number] 12:29:00 Test Item Value Reference Range Interpretation [...] code = 7.6 MG/DL 8.4-10.2 L CA) [id number] 12:29:00 Test Item Value Reference Range Interpretation Comments MAGNESIUM (test code = MAG) 1.4 MG/DL 1.6-2.3 L LACTIC [id number] 12:27:00 Test Item Value Reference Range Interpretation Comments LACTIC ACID (test code = LACT) 3.1 MMOL/L 0.7-2.1 H BASIC METABOLIC [id number] 12:27:00 Test Item Value Reference Range Interpretation [...] CALCIUM (test code = MG/DL 8.7-9.7 CA) [id number] 12:27:00 Test Item Value Reference Range Interpretation Comments MAGNESIUM (test code = MAG) MG/DL 1.6-2.3 BASIC METABOLIC [id number] 12:24:00 Test Item Value Reference Range Interpretation [...] CALCIUM (test code = CA) MG/DL 8.7-9.7 [id number] 12:24:00 Test Item Value Reference Range Interpretation Comments MAGNESIUM (test code = MAG) MG/DL 1.6-2.3 LACTIC [id number] 09:12:00 Test Item Value Reference Range Interpretation Comments LACTIC ACID (test code = LACT) 3.6 MMOL/L 0.7-2.1 H [id number] 09:05:00 Test Item Value Reference Range Interpretation Comments HEMOGLOBIN (test code = HGB) 10.9 G/DL 11.2-14.9 L - XR CHEST [id number] 06:04:00 [facility] 1940 Sex: F Patient Name: JORGE A SHERMAN Unit No: [id number] EXAMS: CPT CODE: [id number] XR CHEST 1V [id number] LOCATION: H43 EXAM: - XR CHEST 1V HISTORY: On Ventilator TECHNIQUE: Frontal view of the chest. COMPARISON: 12/22/2019 FINDINGS: There is no significant interval change in cardiopulmonary status. Increased density throughout the left chest consistent with the presence of layering pleural fluid and parenchymal consolid ation within the left upper lung field and lung base. No evidence of pneumothorax. Cardiomediastinalcontour is stable. Endotracheal tube has been advanced. Its tip lies approximately 2.5 cm above the mayank. Nasogastric tube tip is excluded from view but below the left hemidiaphragm. IMPRESSION: No i nterval change in cardiopulmonary status. Endotracheal tube has been advanced and appears adequatelypositioned. at 0604 Reported and signed by: Deb Rivera MD CC: Ramu Sutherland MD; Jose Alfredo Goff MD; Rashid Son MD Technologist:Yobani Elias, RT(R) Transcrpt Date/Tm/Trnsp: 12/23/2019 (0604) t.SDR.NS15 Orig Print D/T: S:12/23/2019 (07) [facility] NAME: JORGE A SHERMAN [id number] [address] PHYS: [place] [address] : 1940 AGE: 79 SEX: F LOC: Z.SI06 A PHONE #: [phone] EXAM DATE: 12/23/2019 STATUS: ADM IN FAX #: [phone] RADIOLOGY NO: PAGE 1 Signed ReportCBC W/AUTO [id number] 05:32:00 Test Item Value Reference Range Interpretation [...] 0.02 K/mm3 0.0-0.1 N NRBC#) COMPREHENSIVE METABOLIC [id number] 05:23:00 Test Item Value Reference Range Interpretation [...] 38-126 (test code = ALKP) COMPREHENSIVE METABOLIC [id number] 05:09:00 Test Item Value Reference Range Interpretation [...] code = UNITS/L 38-126 ALKP) COMPREHENSIVE METABOLIC [id number] 05:08:00 Test Item Value Reference Range Interpretation [...] (test code = UNITS/L 38-126 ALKP) LACTIC [id number] 05:04:00 Test Item Value Reference Range Interpretation Comments LACTIC ACID (test code = LACT) 3.8 MMOL/L 0.7-2.1 H PATIENT RECEIVING BLOODCBC W/AUTO [id number] 03:12:00 Test Item Value Reference Range Interpretation [...] K/mm3 0.0-0.1 N code = NRBC#) WBC [id number] 03:12:00 Test Item Value Reference Range Interpretation [...] (test code = NORMAL NORMAL PLTMORPH) PROTHROMBIN [id number] 00:01:00 Test Item Value Reference Range Interpretation [...] dial infarction. 2. 0 - 3.0 3. Web Marketing Manager al prosthesis hear t valves, recurre nt systemic emboli sm. 3.0 - 4.5 QNS AT 2318. SPOKE TO [employer]. LINE DRAWPTT [id number] 00:01:00 Test Item Value Reference Range Interpretation Comments PTT ACTIVATED (test code = APTT) 47.6 SECONDS 25.1-36.5 H QNS AT 2318. SPOKE TO [employer]. LINE [id number] 00:01:00 Test Item Value Reference Range Interpretation Comments FIBRINOGEN (test code = FIB) 181 mg/dL 200-393 L QNS AT 2318. SPOKE TO [employer]. LINE [id number] 00:01:00 Test Item Value Reference Range Interpretation Comments D-DIMER (test 33165 ng/mLFEU 0-499 H Negative Pre dictive Value [...] pr ocedures. QNS AT 2318. SPOKE TO [employer]. LINE DRAWARTERIAL BLOOD [id number] 23:52:00 Test Item Value Reference Range Interpretation [...] ABG SITE (test code = SITEA) AL DANITA TEST (test code = ALLENJose) NA CHECK FIO2 (test code = COHBGFFIO2) 85 % PaO2/[id number] 23:52:00 Test Item Value Reference Range Interpretation Comments PaO2/FiO2 (test code = TCR3KWP3) mm/Hg ARTERIAL BLOOD [id number] 23:52:00 Test Item Value Reference Range Interpretation [...] ABG SITE (test code = SITEA) AL NASREENS TEST (test code = ALLENS) NA CHECK FIO2 (test code = COHBGFFIO2) 85 % PaO2/[id number] 23:52:00 Test Item Value Reference Range Interpretation Comments PaO2/FiO2 (test code = [id number]) 99.88 mm/Hg BASIC METABOLIC [id number] 23:35:00 Test Item Value Reference Range Interpretation Comments SODIUM (test code = 140 MMOL/L 137-145 N NA) POTASSIUM (test code = 2.6 MMOL/L 3.5-5.1 LL ALEYDA GONZÁLES [employer] Angiodroid) READBACK ON AT 2335 BY Chetan Sewell [...] CALCIUM (test code = MG/DL 8.7-9.7 CA) [id number] 23:35:00 Test Item Value Reference Range Interpretation Comments AMYLASE (test code = CAROLE) 89 UNITS/L 30-110 N [id number] 23:35:00 Test Item Value Reference Range Interpretation Comments LIPASE (test code = LIP) UNITS/L 23-300 [id number] 23:35:00 Test Item Value Reference Range Interpretation Comments MAGNESIUM (test code = MAG) MG/DL 1.6-2.3 BASIC METABOLIC [id number] 23:35:00 Test Item Value Reference Range Interpretation Comments SODIUM (test code = 140 MMOL/L 137-145 N NA) POTASSIUM (test code = 2.6 MMOL/L 3.5-5.1 LEONA Bell TO NIVIA [employer] Angiodroid) READBACK ON AT 2335 BY Chetan Sewell [...] code = 8.0 MG/DL 8.4-10.2 L CA) [id number] 23:35:00 Test Item Value Reference Range Interpretation Comments AMYLASE (test code = CAROLE) 89 UNITS/L 30-110 N [id number] 23:35:00 Test Item Value Reference Range Interpretation Comments LIPASE (test code = LIP) 39 UNITS/L 23-300 N [id number] 23:35:00 Test Item Value Reference Range Interpretation Comments MAGNESIUM (test code = MAG) 1.4 MG/DL 1.6-2.3 L LACTIC [id number] 23:32:00 Test Item Value Reference Range Interpretation Comments LACTIC ACID (test code = LACT) 2.6 MMOL/L 0.7-2.1 H BASIC METABOLIC [id number] 23:31:00 Test Item Value Reference Range Interpretation [...] CALCIUM (test code = CA) MG/DL 8.7-9.7 [id number] 23:31:00 Test Item Value Reference Range Interpretation Comments AMYLASE (test code = CAROLE) UNITS/L 30-110 [id number] 23:31:00 Test Item Value Reference Range Interpretation Comments LIPASE (test code = LIP) UNITS/L 23-300 [id number] 23:31:00 Test Item Value Reference Range Interpretation Comments MAGNESIUM (test code = MAG) MG/DL 1.6-2.3 CBC W/AUTO [id number] 23:28:00 Test Item Value Reference Range Interpretation [...] K/mm3 0.0-0.1 N code = NRBC#) DIFFERENTIAL [id number] 23:28:00 Test Item Value Reference Range Interpretation Comments RBC MORPHOLOGY REQUIRED (test code = RBCM) PLATELET ESTIMATE (test code = PLTEST) ADEQUATE PLATELET MORPHOLOGY (test code = NORMAL PLTMORPH) CBC W/AUTO [id number] 23:28:00 Test Item Value Reference Range Interpretation [...] K/mm3 0.0-0.1 N code = NRBC#) DIFFERENTIAL [id number] 23:28:00 Test Item Value Reference Range Interpretation Comments RBC MORPHOLOGY REQUIRED (test code = RBCM) PLATELET ESTIMATE (test code = PLTEST) ADEQUATE PLATELET MORPHOLOGY (test code = NORMAL PLTMORPH) PLATELET [id number] 23:14:00 Test Item Value Reference Range Interpretation Comments PLATELET COUNT TEST NOT PERFORMED 129-368 SEE CBC REPORT (test code = PLT) K/MM3 - XR CHEST [id number] 23:02:00 [facility] 1940 Sex: F Patient Name: JORGE A SHERMAN Unit No: [id number] EXAMS: CPT CODE: [id number] XR CHEST 1V 22599 AFTER HOURS SERVICE ON: 12/22/2019 11:01 PM [...] Diana Quintana (RT) Transcrpt Date/Tm/Trnsp: 12/22/2019 (2301) t.MA50 Orig Print D/T: S: 12/22/2019 (2305) [facility] NAME: JORGE A SHERMAN [id number] [address] PHYS: [place] [address] : 1940 AGE: 79 SEX: F LOC: Z.SI06 A PHONE #: [phone] EXAM DATE: 12/22/2019 STATUS: ADM IN FAX #: [phone] RADIOLOGY NO: PAGE 1 Signed ReportARTERIAL BLOOD [id number] 22:53:00 Test Item Value Reference Range Interpretation [...] FIO2 (test code = 100 % COHBGFFIO2) PaO2/[id number] 22:53:00 Test Item Value Reference Range Interpretation Comments PaO2/FiO2 (test code = QVU7JTU4) mm/Hg ARTERIAL BLOOD [id number] 22:53:00 Test Item Value Reference Range Interpretation [...] FIO2 (test code = 100 % COHBGFFIO2) PaO2/[id number] 22:53:00 Test Item Value Reference Range Interpretation Comments PaO2/FiO2 (test code = OTK6LPU4) 160.40 mm/Hg BASIC METABOLIC [id number] 19:39:00 Test Item Value Reference Range Interpretation [...] 7.4 MG/DL 8.4-10.2 L CA) Comments to Service Sprinkler Helper: USE BLOOD RECENTLY COLLECTED PLEASEIs this a LINE draw? NBASIC METABOLIC [id number] 19:38:00 Test Item Value Reference Range Interpretation [...] code = MG/DL 8.7-9.7 CA) Comments to Service Sprinkler Helper: USE BLOOD RECENTLY COLLECTED PLEASEIs this a LINE draw? NBASIC METABOLIC [id number] 19:36:00 Test Item Value Reference Range Interpretation [...] code = CA) MG/DL 8.7-9.7 Comments to Service Sprinkler Helper: USE BLOOD RECENTLY COLLECTED PLEASEIs this a LINE draw? NPROTHROMBIN [id number] 19:22:00 Test Item Value Reference Range Interpretation [...] myocar dial infarction. 2.0 - 3.0 3. Web Marketing Manager al prosthesis hear t valves, recurre nt systemic emboli sm. 3.0 - 4.5 Comments to Service Sprinkler Helper: USE BLOOD RECENTLY COLLECTED PLEASE PELASEPTT [id number] 19:22:00 Test Item Value Reference Range Interpretation Comments PTT ACTIVATED (test code = APTT) 28.4 SECONDS 25.1-36.5 N Comments to Service Sprinkler Helper: USE BLOOD RECENTLY COLLECTED PLEASE PELASEHGB HCT 2019-12-22 18:56:00 Test Item Value Reference Range Interpretation Comments HEMOGLOBIN (test code = HGB) 8.8 G/DL 11.2-14.9 L HEMATOCRIT (test code = HCT) 27.5 % 33.2-43.5 L GLUCOSE BEDSIDE [id number] 17:38:00 Test Item Value Reference Range Interpretation Comments GLUCOSE BEDSIDE TESTING (test code = 86 MG/DL 60-99 N GLUBED) HGB [id number] 14:37:00 Test Item Value Reference Range Interpretation Comments HEMOGLOBIN (test code = HGB) 9.3 G/DL 11.2-14.9 L HEMATOCRIT (test code = HCT) 29.2 % 33.2-43.5 L GLUCOSE BEDSIDE [id number] 12:04:00 Test Item Value Reference Range Interpretation Comments GLUCOSE BEDSIDE TESTING (test code = 88 MG/DL 60-99 N GLUBED) COMPREHENSIVE METABOLIC [id number] 07:26:00 Test Item Value Reference Range Interpretation [...] N (test code = ALKP) COMPREHENSIVE METABOLIC [id number] 07:25:00 Test Item Value Reference Range Interpretation [...] N (test code = ALKP) COMPREHENSIVE METABOLIC [id number] 07:23:00 Test Item Value Reference Range Interpretation [...] code = UNITS/L 38-126 ALKP) COMPREHENSIVE METABOLIC [id number] 07:22:00 Test Item Value Reference Range Interpretation [...] code = UNITS/L 38-126 ALKP) GLUCOSE BEDSIDE [id number] 07:16:00 Test Item Value Reference Range Interpretation Comments GLUCOSE BEDSIDE TESTING (test code = 96 MG/DL 60-99 N GLUBED) PROTHROMBIN [id number] 07:04:00 Test Item Value Reference Range Interpretation [...] myocar dial infarction. 2.0 - 3.0 3. Web Marketing Manager al prosthesis hear t valves, recurre nt systemic emboli sm. 3.0 - 4.5 PTT [id number] 07:04:00 Test Item Value Reference Range Interpretation Comments PTT ACTIVATED (test code = APTT) 30.5 SECONDS 25.1-36.5 N CBC W/AUTO [id number] 06:46:00 Test Item Value Reference Range Interpretation [...] 0.00 K/mm3 0.0-0.1 N NRBC#) GLUCOSE BEDSIDE [id number] 00:11:00 Test Item Value Reference Range Interpretation Comments GLUCOSE BEDSIDE TESTING (test code = 98 MG/DL 60-99 N GLUBED) PROTHROMBIN [id number] 23:41:00 Test Item Value Reference Range Interpretation [...] myocar dial infarction. 2.0 - 3.0 3. Web Marketing Manager al prosthesis hear t valves, recurre nt systemic emboli sm. 3.0 - 4.5 PTT [id number] 23:41:00 Test Item Value Reference Range Interpretation Comments PTT ACTIVATED (test code = APTT) 25.2 SECONDS 25.1-36.5 N BASIC METABOLIC [id number] 23:39:00 Test Item Value Reference Range Interpretation [...] 7.4 MG/DL 8.4-10.2 L CA) BASIC METABOLIC [id number] 23:36:00 Test Item Value Reference Range Interpretation [...] code = CA) MG/DL 8.7-9.7 CBC W/AUTO [id number] 23:29:00 Test Item Value Reference Range Interpretation [...] 0.00 K/mm3 0.0-0.1 N NRBC#) GLUCOSE BEDSIDE [id number] 20:24:00 Test Item Value Reference Range Interpretation Comments GLUCOSE BEDSIDE TESTING (test code 106 MG/DL 60-99 H = GLUBED) - XR CHEST [id number] 19:08:00 [facility] : 1940 Sex: F Patient Name: JORGE A SHERMAN Unit No: [id number] EXAMS: CPT CODE: [id number] XR CHEST 1V 15846 REASON FOR EXAM: Coronary artery disease. COMPARISON: December 08, 2019. Chest, portable single frontal view. The upper lungs are fairly well-inflated and clear. Lung bases with some haziness present that could indicate atelectasis or developing infiltrates. Most pronounced behind the left heart. An effusion componentcould be present. Heart size is upper normal with heart valve replacement changes and or CABG. Pulmonary vessels appear to be intact. No right effusion or pneumothorax can be seen. Osseous structures appear to be intact. Bilateral rotator cuff degenerative changes. IMPRESSION: Basilar densities, mostly on the left, possibly early pneumonia/atelectasis with effusion component. Location: [facility] at 1908 Reported and signed by: EBONY Romero CC: Ramu Sutherland MD; Rashid Son MD; Reuben Conner Technologist: Diana Quintana (RT) Transcrpt Date/Tm/Trnsp: 12/21/2019 (1907) DoyleR.RCM1 Orig Print D/T: S: 12/21/2019 (1911) [facility] NAME: JORGE A SHERMAN [id number] [address] PHYS: Reuben Mccauley MD [place],[address] : 1940 AGE: 79 SEX: F LOC: Z.SI06 A PHONE #: [phone] EXAM DATE: 12/21/2019 STATUS: ADM IN FAX #: [phone] RADIOLOGY NO: PAGE 1 Signed ReportGLUCOSE BEDSIDE [id number] 12:32:00 Test Item Value Reference Range Interpretation Comments GLUCOSE BEDSIDE TESTING (test code 130 MG/DL 60-99 H = GLUBED) GLUCOSE BEDSIDE [id number] 09:19:00 Test Item Value Reference Range Interpretation Comments GLUCOSE BEDSIDE TESTING (test code 143 MG/DL 60-99 H = GLUBED) COMPREHENSIVE METABOLIC [id number] 07:06:00 Test Item Value Reference Range Interpretation [...] H (test code = ALKP) COMPREHENSIVE METABOLIC [id number] 06:24:00 Test Item Value Reference Range Interpretation [...] 38-126 (test code = ALKP) COMPREHENSIVE METABOLIC [id number] 06:22:00 Test Item Value Reference Range Interpretation [...] (test code = UNITS/L 38-126 ALKP) PROTHROMBIN [id number] 06:21:00 Test Item Value Reference Range Interpretation [...] myocar dial infarction. 2.0 - 3.0 3. Web Marketing Manager al prosthesis hear t valves, recurre nt systemic emboli sm. 3.0 - 4.5 COMPREHENSIVE METABOLIC [id number] 06:21:00 Test Item Value Reference Range Interpretation [...] code = UNITS/L 38-126 ALKP) CBC W/AUTO [id number] 06:11:00 Test Item Value Reference Range Interpretation [...] 0.00 K/mm3 0.0-0.1 N NRBC#) GLUCOSE BEDSIDE [id number] 21:01:00 Test Item Value Reference Range Interpretation Comments GLUCOSE BEDSIDE TESTING (test code 127 MG/DL 60-99 H = GLUBED) GLUCOSE BEDSIDE [id number] 16:02:00 Test Item Value Reference Range Interpretation Comments GLUCOSE BEDSIDE TESTING (test code 118 MG/DL 60-99 H = GLUBED) - NM ACUTE GI BLOOD [id number] 15:54:00 [facility] : 1940 Sex: F Patient Name: JORGE A SHERMAN Unit No: [id number] EXAMS: CPT CODE: [id number] NM ACUTE GI BLOOD LOSS 08555 B2 EXAM: - NM ACUTE GI BLOOD LOSS HISTORY: GI bleeding TECHNIQUE: Patient's RBCs were labeled using 27.4mCi of Tc 99m pertechnetate. Subsequent immediate flow [...] bleeding over the 2 hour imaging interval. E lectronically Signed by Haresh Gross MD on 12/20/2019 at 1554 Reported and signed by: Haresh Gross MD CC: Ramu Sutherland MD; Rashid Son MD; Dr. Jason Wilder Technologist: José Miguel Lepe, RT(N) Transcrpt Date/Tm/Trnsp: 12/20/2019 (1554) [id number] Orig Print D/T: S: 12/20/2019 (8061) [facility] NAME: JORGE A SHERMAN [id number] [address] PHYS: [place] [address] : 1940 AGE: 79 SEX: F LOC: Z.SI06 A PHONE #: [phone] EXAM DATE: 12/20/2019 STATUS: ADM IN FAX #: [phone] RADIOLOGY NO: PAGE 1 Signed ReportGLUCOSE BEDSIDE [id number] 11:29:00 Test Item Value Reference Range Interpretation Comments GLUCOSE BEDSIDE TESTING (test code 148 MG/DL 60-99 H = GLUBED) GLUCOSE BEDSIDE [id number] 09:20:00 Test Item Value Reference Range Interpretation Comments GLUCOSE BEDSIDE TESTING (test code 152 MG/DL 60-99 H = GLUBED) BASIC METABOLIC [id number] 06:04:00 Test Item Value Reference Range Interpretation [...] 7.2 MG/DL 8.4-10.2 L CA) BASIC METABOLIC [id number] 06:03:00 Test Item Value Reference Range Interpretation [...] code = MG/DL 8.7-9.7 CA) BASIC METABOLIC [id number] 06:01:00 Test Item Value Reference Range Interpretation [...] code = CA) MG/DL 8.7-9.7 BASIC METABOLIC [id number] 06:00:00 Test Item Value Reference Range Interpretation [...] (test code = CA) MG/DL 8.7-9.7 PROTHROMBIN [id number] 06:00:00 Test Item Value Reference Range Interpretation [...] myocar dial infarction. 2.0 - 3.0 3. Web Marketing Manager al prosthesis hear t valves, recurre nt systemic emboli sm. 3.0 - 4.5 CBC W/AUTO [id number] 05:53:00 Test Item Value Reference Range Interpretation [...] 0.00 K/mm3 0.0-0.1 N NRBC#) GLUCOSE BEDSIDE [id number] 20:57:00 Test Item Value Reference Range Interpretation Comments GLUCOSE BEDSIDE TESTING (test code 138 MG/DL 60-99 H = GLUBED) PROTHROMBIN [id number] 19:46:00 Test Item Value Reference Range Interpretation [...] myocar dial infarction. 2.0 - 3.0 3. Web Marketing Manager al prosthesis hear t valves, recurre nt systemic emboli sm. 3.0 - 4.5 UNABLE TO DRAW BLOOD, REASON: HARDSTICK NOTIFIED PATIENT CARE STAFF: MACK 12/19/19 AT 1838 BY Boris Henry AnPTT [id number] 19:46:00 Test Item Value Reference Range Interpretation Comments PTT ACTIVATED (test code = APTT) 31.3 SECONDS 25.1-36.5 N UNABLE TO DRAW BLOOD, REASON: HARDSTICK NOTIFIED PATIENT CARE STAFF: MACK 12/19/19 AT 8 BY Boris Henry AnHGB [id number] 19:36:00 Test Item Value Reference Range Interpretation Comments HEMOGLOBIN (test code = HGB) 7.4 G/DL 11.2-14.9 L HEMATOCRIT (test code = HCT) 23.6 % 33.2-43.5 L Is this a LINE draw? NUNABLE TO DRAW BLOOD, REASON: HARDSTICKNOTIFIED PATIENT CARE STAFF: MACK 12/19/19 AT 1837 BY Boris Henry AnGLUCOSE BEDSIDE [id number] 17:14:00 Test Item Value Reference Range Interpretation Comments GLUCOSE BEDSIDE TESTING (test code 127 MG/DL 60-99 H = GLUBED) GLUCOSE BEDSIDE [id number] 11:41:00 Test Item Value Reference Range Interpretation Comments GLUCOSE BEDSIDE TESTING (test code 125 MG/DL 60-99 H = GLUBED) BASIC METABOLIC [id number] 09:20:00 Test Item Value Reference Range Interpretation [...] code = 7.5 MG/DL 8.4-10.2 L CA) [facility] METABOLIC [id number] 09:15:00 Test Item Value Reference Range Interpretation [...] CALCIUM (test code = MG/DL 8.7-9.7 CA) [facility] METABOLIC [id number] 09:13:00 Test Item Value Reference Range Interpretation [...] CALCIUM (test code = CA) MG/DL 8.7-9.7 [facility] METABOLIC [id number] 09:12:00 Test Item Value Reference Range Interpretation [...] (test code = CA) MG/DL 8.7-9.7 CBNPROTHROMBIN [id number] 09:09:00 Test Item Value Reference Range Interpretation [...] myocar dial infarction. 2.0 - 3.0 3. Web Marketing Manager al prosthesis hear t valves, recurre nt systemic emboli sm. 3.0 - 4.5 CBNComments to Service Sprinkler Helper: WITH AM LABSCBC W/AUTO [id number] 08:57:00 Test Item Value Reference Range Interpretation [...] 0.00 K/mm3 0.0-0.1 N NRBC#) CBNGLUCOSE BEDSIDE [id number] 07:42:00 Test Item Value Reference Range Interpretation Comments GLUCOSE BEDSIDE TESTING (test code 122 MG/DL 60-99 H = GLUBED) GLUCOSE BEDSIDE [id number] 21:25:00 Test Item Value Reference Range Interpretation Comments GLUCOSE BEDSIDE TESTING (test code 115 MG/DL 60-99 H = GLUBED) GLUCOSE BEDSIDE [id number] 17:33:00 Test Item Value Reference Range Interpretation Comments GLUCOSE BEDSIDE TESTING (test code 104 MG/DL 60-99 H = GLUBED) C REACTIVE [id number] 15:42:00 Test Item Value Reference Range Interpretation Comments C REACTIVE PROTEIN (test code = 25.20 MG/DL 0.00-9.99 H CRP) - XR SMALL BOWEL/[id number] 12:46:00 [facility] 1940 Sex: F Patient Name: JORGE A SHERMAN Unit No: [id number] EXAMS: CPT CODE: [id number] XR SMALL BOWEL/ENTERO 15868 B2 EXAM: Small bowel series INDICATION: Prolonged [...] ANKUR Jalloh, RT(R) Transcrpt Date/Tm/Trnsp: 12/18/2019 (1246) tSHANT.VB7 Orig Print D/T: S: 12/18/2019 (0002) [facility] NAME: JORGE A SHERMAN [id number] [address] PHYS: [place] [address] : 1940 AGE: 79 SEX: F LOC: Z.SI06 A PHONE #: [phone] EXAM DATE: 12/18/2019 STATUS: ADM IN FAX #: [phone] RADIOLOGY NO: PAGE 1 Signed ReportGLUCOSE BEDSIDE [id number] 12:07:00 Test Item Value Reference Range Interpretation Comments GLUCOSE BEDSIDE TESTING (test code 101 MG/DL 60-99 H = GLUBED) SED [id number] 09:36:00 Test Item Value Reference Range Interpretation Comments SED RATE (test code = SEDW) 53 MM/HR 0-20 H GLUCOSE BEDSIDE [id number] 09:03:00 Test Item Value Reference Range Interpretation Comments GLUCOSE BEDSIDE TESTING (test code 113 MG/DL 60-99 H = GLUBED) BASIC METABOLIC [id number] 06:06:00 Test Item Value Reference Range Interpretation [...] 7.3 MG/DL 8.4-10.2 L CA) BASIC METABOLIC [id number] 06:00:00 Test Item Value Reference Range Interpretation [...] code = MG/DL 8.7-9.7 CA) BASIC METABOLIC [id number] 05:57:00 Test Item Value Reference Range Interpretation [...] (test code = CA) MG/DL 8.7-9.7 PROTHROMBIN [id number] 05:38:00 Test Item Value Reference Range Interpretation [...] myocar dial infarction. 2.0 - 3.0 3. Web Marketing Manager al prosthesis hear t valves, recurre nt systemic emboli sm. 3.0 - 4.5 Comments to Service Sprinkler Helper: WITH AM LABSCBC W/AUTO [id number] 05:29:00 Test Item Value Reference Range Interpretation [...] 0.00 K/mm3 0.0-0.1 N NRBC#) GLUCOSE BEDSIDE [id number] 20:19:00 Test Item Value Reference Range Interpretation Comments GLUCOSE BEDSIDE TESTING (test code 212 MG/DL 60-99 H = GLUBED) GLUCOSE BEDSIDE [id number] 17:34:00 Test Item Value Reference Range Interpretation Comments GLUCOSE BEDSIDE TESTING (test code 217 MG/DL 60-99 H = GLUBED) GLUCOSE BEDSIDE [id number] 13:00:00 Test Item Value Reference Range Interpretation Comments GLUCOSE BEDSIDE TESTING (test code 207 MG/DL 60-99 H = GLUBED) BASIC METABOLIC [id number] 05:59:00 Test Item Value Reference Range Interpretation [...] 7.1 MG/DL 8.4-10.2 L CA) BASIC METABOLIC [id number] 05:51:00 Test Item Value Reference Range Interpretation [...] code = MG/DL 8.7-9.7 CA) BASIC METABOLIC [id number] 05:49:00 Test Item Value Reference Range Interpretation [...] (test code = CA) MG/DL 8.7-9.7 PROTHROMBIN [id number] 05:34:00 Test Item Value Reference Range Interpretation [...] myocar dial infarction. 2.0 - 3.0 3. Web Marketing Manager al prosthesis hear t valves, recurre nt systemic emboli sm. 3.0 - 4.5 CBC W/AUTO [id number] 05:16:00 Test Item Value Reference Range Interpretation [...] = 0.00 K/mm3 0.0-0.1 N NRBC#) PROTHROMBIN [id number] 06:34:00 Test Item Value Reference Range Interpretation [...] dial infarction. 2. 0 - 3.0 3. Web Marketing Manager al prosthesis hear t valves, recurre nt systemic emboli sm. 3.0 - 4.5 BASIC METABOLIC [id number] 06:25:00 Test Item Value Reference Range Interpretation [...] 7.3 MG/DL 8.4-10.2 L CA) BASIC METABOLIC [id number] 06:22:00 Test Item Value Reference Range Interpretation [...] (test code = CA) MG/DL 8.7-9.7 LACTIC [id number] 06:19:00 Test Item Value Reference Range Interpretation Comments LACTIC ACID (test code = LACT) 0.8 MMOL/L 0.7-2.1 N CBC W/AUTO [id number] 06:02:00 Test Item Value Reference Range Interpretation [...] 0.00 K/mm3 0.0-0.1 N NRBC#) GLUCOSE BEDSIDE [id number] 10:01:00 Test Item Value Reference Range Interpretation Comments GLUCOSE BEDSIDE TESTING (test code = 96 MG/DL 60-99 N GLUBED) GLUCOSE BEDSIDE [id number] 09:16:00 Test Item Value Reference Range Interpretation Comments GLUCOSE BEDSIDE TESTING (test code = 58 MG/DL 60-99 L GLUBED) BASIC METABOLIC [id number] 06:07:00 Test Item Value Reference Range Interpretation [...] 51 MG/DL 74-106 L CALLED TO LETA HERRON) READBACK ON 07/28 AT 0606 Clint Jeronimo BLOOD UREA NITROGEN 36 MG/DL 7-17 H (test code = BUN) GLOMERULAR FILTRATION 60 Report ing units: RATE (test code = GFR) ml/mi n/1.73 m2 (Modified MDRD Formula)Referen ce Range: > or = 6 0 ml/min/1.73 m2 CREATININE (test code 0.90 MG/DL 0.52-1.04 N = CREAT) CALCIUM (test code = 7.4 MG/DL 8.4-10.2 L CA) PROTHROMBIN [id number] 06:06:00 Test Item Value Reference Range Interpretation [...] myocar dial infarction. 2.0 - 3.0 3. Web Marketing Manager al prosthesis hear t valves, recurre nt systemic emboli sm. 3.0 - 4.5 BASIC METABOLIC [id number] 06:01:00 Test Item Value Reference Range Interpretation [...] code = MG/DL 8.7-9.7 CA) BASIC METABOLIC [id number] 05:59:00 Test Item Value Reference Range Interpretation [...] code = CA) MG/DL 8.7-9.7 BASIC METABOLIC [id number] 05:58:00 Test Item Value Reference Range Interpretation [...] code = CA) MG/DL 8.7-9.7 CBC W/AUTO [id number] 05:51:00 Test Item Value Reference Range Interpretation [...] 0.00 K/mm3 0.0-0.1 N NRBC#) COMPREHENSIVE METABOLIC [id number] 06:04:00 Test Item Value Reference Range Interpretation [...] N (test code = ALKP) COMPREHENSIVE METABOLIC [id number] 05:59:00 Test Item Value Reference Range Interpretation [...] code = UNITS/L 38-126 ALKP) CBC W/AUTO [id number] 05:43:00 Test Item Value Reference Range Interpretation [...] code = 0.02 K/mm3 0.0-0.1 N NRBC#) [id number] 23:35:00 Test Item Value Reference Range Interpretation Comments HEMOGLOBIN (test code = HGB) 9.7 G/DL 11.2-14.9 L COMPREHENSIVE METABOLIC [id number] 20:53:00 Test Item Value Reference Range Interpretation [...] CARE STAFF: NICK 12/13/19 AT 1741 BY Boris Henry NO GREEN TOP WERE SENT AT 18:10COMPREHENSIVE METABOLIC [id number] 20:50:00 Test Item Value Reference Range Interpretation [...] CARE STAFF: NICK 12/13/19 AT 1741 BY Boris Henry NO GREEN TOP WERE SENT AT 18:10COMPREHENSIVE METABOLIC [id number] 20:48:00 Test Item Value Reference Range Interpretation [...] CARE STAFF: NICK 12/13/19 AT 1741 BY Boris Henry NO GREEN TOP WERE SENT AT 18:10COMPREHENSIVE METABOLIC [id number] 20:47:00 Test Item Value Reference Range Interpretation [...] CARE STAFF: NICK 12/13/19 AT 1741 BY Boris Henry GREEN TOP WERE SENT AT 18:10CBC [...] CARE STAFF: NICK 12/13/19 AT 1742 BY Boris Henry- XR ABDOMEN 1 [id number] 18:16:00 [facility] 1940 Sex: F Patient Name: JORGE A SHERMAN Unit No: [id number] EXAMS: CPT CODE: [id number] XR ABDOMEN 1 V 16355 Dictation location: H37. ABDOMEN, 1 VIEW HISTORY:GI [...] AuraSP17 Orig Print D/T: S: 12/13/2019 (1819) [facility] NAME: JORGE A SHERMAN [address] [address] PHYS: RAE99 [place] [address] : 1940 AGE: 79 SEX: F LOC: Z.SI06 A PHONE #: [phone] EXAM DATE: 12/13/2019 STATUS: ADM IN FAX #: [phone] RADIOLOGY NO: PAGE 1 Signed ReportLACTIC ACID 2019-12-13 10:38:00 Test Item Value Reference Range Interpretation Comments LACTIC ACID (test code = LACT) 1.4 MMOL/L 0.7-2.1 N PROTHROMBIN [id number] 06:13:00 Test Item Value Reference Range Interpretation [...] myocar dial infarction. 2.0 - 3.0 3. Web Marketing Manager al prosthesis hear t valves, recurre nt systemic emboli sm. 3.0 - 4.5 Comments to Service Sprinkler Helper: WITH AM LABSCBC W/AUTO [id number] 06:07:00 Test Item Value Reference Range Interpretation [...] = 0.00 K/mm3 0.0-0.1 N NRBC#) DIFFERENTIAL [id number] 06:07:00 Test Item Value Reference Range Interpretation Comments RBC MORPHOLOGY REQUIRED (test code = RBCM) PLATELET ESTIMATE (test code = PLTEST) ADEQUATE PLATELET MORPHOLOGY (test code = NORMAL PLTMORPH) CBC W/AUTO [id number] 06:07:00 Test Item Value Reference Range Interpretation [...] = 0.00 K/mm3 0.0-0.1 N NRBC#) DIFFERENTIAL [id number] 06:07:00 Test Item Value Reference Range Interpretation Comments RBC MORPHOLOGY REQUIRED (test code = RBCM) PLATELET ESTIMATE (test code = PLTEST) ADEQUATE PLATELET MORPHOLOGY (test code = NORMAL PLTMORPH) - XR ABDOMEN 1 [id number] 11:55:00 [facility] : 1940 Sex: F Patient Name: JORGE A SHERMAN Unit No: [id number] EXAMS: CPT CODE: [id number] XR ABDOMEN 1 V 11970 EXAMINATION: - XR ABDOMEN 1 V. LOCATION: B2. HISTORY: abdominal pain, vomiting. COMPARISON: CT abdomen and pelvisdated 12/04/2019. TECHNIQUE: Single AP view of the [...] Sutherland MD; Rashid Son MD Technologist: Cheyanne Hernández, RIVASRS, RT(R) Transcrpt Date/Tm/Trnsp: 12/12/2019 (3949) Kylie7 Orig Print D/T: S: 12/12/2019 (5041) JO[facility] NAME:JORGE A SHERMAN [address] [address] PHYS: Gail Garcia MD [address] [address] : 1940 AGE: 79 SEX: F LOC: Z.SI06 A PHONE #: [phone] EXAM DATE: 12/12/2019 STATUS:ADM IN FAX #: [phone] RADIOLOGY NO: PAGE 1 Signed Report PROTHROMBIN [id number] 09:42:00 Test Item Value Reference Range Interpretation [...] dial infarction. 2. 0 - 3.0 3. Web Marketing Manager al prosthesis hear t valves, recurre nt systemic emboli sm. 3.0 - 4.5 Comments to Service Sprinkler Helper: WITH AM LABS do at 0700CBC W/AUTO [id number] 09:36:00 Test Item Value Reference Range Interpretation [...] N NRBC#) [facility] [address] METABOLIC [id number] 05:56:00 Test Item Value Reference Range Interpretation [...] 8.0 MG/DL 8.4-10.2 L CA) BASIC METABOLIC [id number] 05:55:00 Test Item Value Reference Range Interpretation [...] code = MG/DL 8.7-9.7 CA) BASIC METABOLIC [id number] 05:53:00 Test Item Value Reference Range Interpretation [...] (test code = CA) MG/DL 8.7-9.7 PROTHROMBIN [id number] 05:23:00 Test Item Value Reference Range Interpretation [...] myocar dial infarction. 2.0 - 3.0 3. Web Marketing Manager al prosthesis hear t valves, recurre nt systemic emboli sm. 3.0 - 4.5 Comments to Service Sprinkler Helper: .CBC W/AUTO [id number] 05:15:00 Test Item Value Reference Range Interpretation [...] 0.00 K/mm3 0.0-0.1 N NRBC#) BASIC METABOLIC [id number] 11:19:00 Test Item Value Reference Range Interpretation [...] 7.6 MG/DL 8.4-10.2 L CA) BASIC METABOLIC [id number] 11:18:00 Test Item Value Reference Range Interpretation [...] code = MG/DL 8.7-9.7 CA) BASIC METABOLIC [id number] 11:15:00 Test Item Value Reference Range Interpretation [...] code = CA) MG/DL 8.7-9.7 CBC W/AUTO [id number] 11:05:00 Test Item Value Reference Range Interpretation [...] = 0.00 K/mm3 0.0-0.1 N NRBC#) PROTHROMBIN [id number] 04:49:00 Test Item Value Reference Range Interpretation [...] dial infarction. 2. 0 - 3.0 3. Web Marketing Manager al prosthesis hear t valves, recurre nt systemic emboli sm. 3.0 - 4.5 Comments to Service Sprinkler Helper: .URINALYSIS [id number] 17:50:00 Test Item Value Reference Range Interpretation [...] code = UACULT) SOURCE OF URINE: VOIDEDUA [id number] 17:50:00 Test Item Value Reference Range Interpretation Comments UA RBC (test code = RBCU) 0-3 RBC/HPF 0-3 UA WBC (test code = XWBCU) 3-5 WBC/HPF 0-5 UA EPITHELIAL CELLS (test code FEW EPI/HPF FEW = EPIU) UA BACTERIA (test code = MODERATE NONE A XBACU) UA YEAST (test code = YEASTU) MODERATE #/HPF NONE A SOURCE OF URINE: VOIDEDURINALYSIS [id number] 17:35:00 Test Item Value Reference Range Interpretation [...] Chk = UACULT) SOURCE OF URINE: VOIDEDUA [id number] 17:35:00 Test Item Value Reference Range Interpretation Comments UA RBC (test code = RBCU) RBC/HPF 0-3 UA WBC (test code = XWBCU) WBC/HPF 0-5 UA EPITHELIAL CELLS (test code = EPI/HPF FEW EPIU) UA BACTERIA (test code = XBACU) NONE SOURCE OF URINE: VOIDEDURINALYSIS [id number] 17:35:00 Test Item Value Reference Range Interpretation [...] Chk = UACULT) SOURCE OF URINE: VOIDEDUA [id number] 17:35:00 Test Item Value Reference Range Interpretation Comments UA RBC (test code = RBCU) RBC/HPF 0-3 UA WBC (test code = XWBCU) WBC/HPF 0-5 UA EPITHELIAL CELLS (test code = EPI/HPF FEW EPIU) UA BACTERIA (test code = XBACU) NONE SOURCE OF URINE: VOIDEDCBC W/AUTO [id number] 05:51:00 Test Item Value Reference Range Interpretation [...] 0-0 H code = NRBC) BASIC METABOLIC [id number] 05:30:00 Test Item Value Reference Range Interpretation [...] code = 7.6 MG/DL 8.4-10.2 L CA) [id number] 05:30:00 Test Item Value Reference Range Interpretation Comments MAGNESIUM (test code = MAG) 2.3 MG/DL 1.6-2.3 N BASIC METABOLIC [id number] 05:24:00 Test Item Value Reference Range Interpretation [...] CALCIUM (test code = MG/DL 8.7-9.7 CA) [id number] 05:24:00 Test Item Value Reference Range Interpretation Comments MAGNESIUM (test code = MAG) MG/DL 1.6-2.3 BASIC METABOLIC [id number] 05:22:00 Test Item Value Reference Range Interpretation [...] CALCIUM (test code = CA) MG/DL 8.7-9.7 [id number] 05:22:00 Test Item Value Reference Range Interpretation Comments MAGNESIUM (test code = MAG) MG/DL 1.6-2.3 BASIC METABOLIC [id number] 05:21:00 Test Item Value Reference Range Interpretation [...] CALCIUM (test code = CA) MG/DL 8.7-9.7 [id number] 05:21:00 Test Item Value Reference Range Interpretation Comments MAGNESIUM (test code = MAG) MG/DL 1.6-2.3 PROTHROMBIN [id number] 05:19:00 Test Item Value Reference Range Interpretation [...] myocar dial infarction. 2.0 - 3.0 3. Web Marketing Manager al prosthesis hear t valves, recurre nt systemic emboli sm. 3.0 - 4.5 Comments to Service Sprinkler Helper: .CBC W/AUTO [id number] 05:10:00 Test Item Value Reference Range Interpretation [...] K/mm3 0.0-0.1 N NRBC#) - XR CHEST [id number] 14:16:00 [facility] 1940 Sex: F Patient Name: JORGE A SHERMAN Unit No: [id number] EXAMS: CPT CODE: [id number] XR CHEST 1V 16543 CHEST 1 VIEW CLINICAL INFORMATION: atelectasis COMPARISON: [...] t.SDR.AM18 Orig Print D/T: S: 12/08/2019 (1420) [facility] NAME: JORGE A SHERMAN [address] [address] PHYS: MINMO99 - [place] [address] : 1940 AGE: 79 SEX: F LOC: Z.SI06 A PHONE #: [phone] EXAM DATE: 12/08/2019 STATUS: ADM IN FAX #: [phone] RADIOLOGY NO: PAGE 1 Signed ReportBASIC METABOLIC [id number] 10:18:00 Test Item Value Reference Range Interpretation [...] 7.6 MG/DL 8.4-10.2 L CA) BASIC METABOLIC [id number] 10:11:00 Test Item Value Reference Range Interpretation [...] (test code = MG/DL 8.7-9.7 CA) PROTHROMBIN [id number] 09:52:00 Test Item Value Reference Range Interpretation [...] dial infarction. 2. 0 - 3.0 3. Web Marketing Manager al prosthesis hear t valves, recurre nt systemic emboli sm. 3.0 - 4.5 CBC W/AUTO [id number] 09:42:00 Test Item Value Reference Range Interpretation [...] = 0.05 K/mm3 0.0-0.1 N NRBC#) LACTIC [id number] 11:31:00 Test Item Value Reference Range Interpretation Comments LACTIC ACID (test code = LACT) 1.8 MMOL/L 0.7-2.1 N BASIC METABOLIC [id number] 05:33:00 Test Item Value Reference Range Interpretation [...] 7.7 MG/DL 8.4-10.2 L CA) BASIC METABOLIC [id number] 05:12:00 Test Item Value Reference Range Interpretation [...] code = MG/DL 8.7-9.7 CA) BASIC METABOLIC [id number] 05:09:00 Test Item Value Reference Range Interpretation [...] (test code = CA) MG/DL 8.7-9.7 PROTHROMBIN [id number] 04:51:00 Test Item Value Reference Range Interpretation Comments PROTHROMBIN TIME 47.9 SECONDS 9.4-12.5 HH CALLED TO Jose ruelas M PATIENT (test code = & READB [...] myocar dial infarction. 2.0 - 3.0 3. Web Marketing Manager al prosthesis hear t valves, recurre nt systemic emboli sm. 3.0 - 4.5 Comments to Service Sprinkler Helper: .CBC W/AUTO [id number] 04:36:00 Test Item Value Reference Range Interpretation [...] = 0.02 K/mm3 0.0-0.1 N NRBC#) LACTIC [id number] 11:55:00 Test Item Value Reference Range Interpretation Comments LACTIC ACID (test code = LACT) 1.5 MMOL/L 0.7-2.1 N BASIC METABOLIC [id number] 10:02:00 Test Item Value Reference Range Interpretation [...] 7.6 MG/DL 8.4-10.2 L CA) BASIC METABOLIC [id number] 10:01:00 Test Item Value Reference Range Interpretation [...] code = MG/DL 8.7-9.7 CA) BASIC METABOLIC [id number] 10:00:00 Test Item Value Reference Range Interpretation [...] code = CA) MG/DL 8.7-9.7 BASIC METABOLIC [id number] 08:40:00 Test Item Value Reference Range Interpretation [...] BY DALJIT: HEMOLYSISNOTIFIED PATIENT CARE STAFF: VERONICALACTIC [id number] 08:38:00 Test Item Value Reference Range Interpretation Comments LACTIC ACID (test code = LACT) 2.3 MMOL/L 0.7-2.1 H UNABLE TO DRAW BLOOD, REASON: CBNNOTIFIED PATIENT CARE STAFF: EDWARD 12/05/19 AT 2155 BY Boris Henry RN.BASIC METABOLIC [id number] 08:35:00 Test Item Value Reference Range Interpretation [...] BY DALJIT: HEMOLYSISNOTIFIED PATIENT CARE STAFF: CAPRI [id number] 08:21:00 Test Item Value Reference Range Interpretation [...] myocar dial infarction. 2.0 - 3.0 3. Web Marketing Manager al prosthesis hear t valves, recurre nt systemic emboli sm. 3.0 - 4.5 Comments to Service Sprinkler Helper: .CBC W/AUTO [id number] 06:49:00 Test Item Value Reference Range Interpretation [...] = 0.00 K/mm3 0.0-0.1 N NRBC#) LACTIC [id number] 19:25:00 Test Item Value Reference Range Interpretation Comments LACTIC ACID (test code = LACT) 2.2 MMOL/L 0.7-2.1 H LACTIC [id number] 14:59:00 Test Item Value Reference Range Interpretation Comments LACTIC ACID (test code = LACT) 2.5 MMOL/L 0.7-2.1 H LACTIC [id number] 12:27:00 Test Item Value Reference Range Interpretation Comments LACTIC ACID (test code = LACT) 2.8 MMOL/L 0.7-2.1 H PROTHROMBIN [id number] 09:37:00 Test Item Value Reference Range Interpretation [...] dial infarction. 2. 0 - 3.0 3. Web Marketing Manager al prosthesis hear t valves, recurre nt systemic emboli sm. 3.0 - 4.5 UNABLE TO DRAW BLOOD, REASON: PT BART CBN DRAWNOTIFIED PATIENT CARE STAFF: RICKN 12/05/19 AT 0632 BY Zachery Kang IS A CBN DRAWComments to Service Sprinkler Helper: . BASIC METABOLIC [id number] 09:29:00 Test Item Value Reference Range Interpretation [...] PATIENT CARE STAFF: PIERRE 12/05/19 AT 0633 BY Zachery Kang IS [...] PATIENT CARE STAFF: PIERRE 12/05/19 AT 0633 BY Zachery Kang IS A CBN DRAWCBC W/AUTO [id number] 08:51:00 Test Item Value Reference Range Interpretation [...] PATIENT CARE STAFF: CBON 12/05/19 AT 0630 BYPraylor,LavadaPT IS A CBN DRAW- US ABDOMEN [id number] 18:50:00[facility] : 1940 Sex: F Patient Name: JORGE A SHERMAN Unit No: [id number] EXAMS: CPT CODE: [id number] US ABDOMEN COMPLETE 25743 EXAM: Abdominal ultrasound complete Location: H24 HISTORY: [...] Reported and signed by: Olayinka Weiner M.D. [facility] NAME: JORGE A SHERMAN [address] PHYS: [place] [address] : 1940 AGE: 79 SEX:F LOC: Z.SI06 A PHONE #: [phone] EXAM DATE: 12/04/2019 STATUS: ADM IN FAX #: [phone] RADIOLOGY NO: PAGE 1 Signed Report (CONTINUED) Patient Name: JORGE A SHERMAN Unit No: [id number] EXAMS: CPT CODE: [id number] US ABDOMEN COMPLETE 09360 (Continued) CC: Tevin Samuels; Ramu Sutherland MD Technologist: Citlaly Jones RDMS(AB) Transcrpt Date/Tm/Trnsp: 12/04/2019 (1849) tSHANT.AL7 Orig Print D/T: S: 12/04/2019 (1853) [facility] NAME: JORGE A SHERMAN [address] [address] PHYS: [place] [address] : 1940 AGE: 79 SEX: F LOC: Z.SI06 A PHONE #: [phone] EXAM DATE: 12/04/2019 STATUS: ADM IN FAX #: [phone] RADIOLOGY NO: PAGE 2 Signed Report- CT ABD PELVIS [id number] 18:09:00 [facility] : 1940 Sex: F Patient Name: JORGE A SHERMAN Unit No: [id number] EXAMS: CPT CODE: [id number] CT ABD PELVIS W/CONT 18707 EXAM: - CT ABD PELVIS W/CONT Location: [...] gas distention of distal small bowel loops aswell as proximal colonic loops followed to the [...] within the abdominal aorta. No aneurysmal dilatation. [facility] NAME: JORGE A SHERMAN [address] [address] PHYS: [place] [address] : 1940 AGE: 79 SEX: F LOC: Z.SI06 A PHONE #: [phone] EXAM DATE: 12/04/2019 STATUS: ADM IN FAX #: [phone] RAD #: D/C DT PAGE 1 Signed Report (CONTINUED) Patient Name: JORGE A SHERMAN Unit No: [id number] EXAMS: CPT CODE: [id number] CT ABD PELVIS W/CONT 74405 (Continued) Lymph nodes: No adenopathy. Peritoneum/retroperitoneum: There [...] Small ascites. 5. Pneumobilia. There is surgical absenceof the gallbladder. Preliminary findings were given to Dr. Carson at 1805 hours on 12/04/2019. at 1809 Reported and signed by: Olayinka Weiner M.D. CC: Tevin Samuels; Ramu Sutherland MD Technologist: Deonte Plata, RT(R); [facility] CTDI: DLP: Trnscrpt: 12/04/2019 (1809) AuraAL7 [facility] NAME: JORGE A SHERMAN [address] [address] PHYS: [place] [address] : 1940 AGE: 79 SEX: F LOC: Z.SI06 A PHONE #: [phone] EXAM DATE: 12/04/2019 STATUS: ADM IN FAX #: [phone] RAD #: D/C DT PAGE 2 Signed Report Patient Name: JORGE A SHERMAN Unit No: [id number] EXAMS: CPT CODE: [id number] CT ABDPELVIS W/CONT 64970 (Continued) Orig Print D/T: S: 12/04/2019 (1811) [facility] NAME: JORGE A SHERMAN [address] [address] PHYS: [place] [address] : 1940 AGE: 79 SEX: F LOC: Z.SI06 A PHONE #: [phone] EXAM DATE: 12/04/2019 STATUS: ADM IN FAX #: [phone] RAD #: D/C DT PAGE 3 Signed ReportGLUCOSE BEDSIDE [id number] 17:09:00 Test Item Value Reference Range Interpretation Comments GLUCOSE BEDSIDE TESTING (test code 134 MG/DL 60-99 H = GLUBED) HEART [id number] 13:06:00 Test Item Value Reference Range Interpretation Comments HEART VALVE (test code = HEARTV) RUN DATE: 12/04/19 West - LAB PAGE 1 RUN TIME: 1306 Specimen Inquiry RUN USER: INTERFACE PATIENT: JORGE A SHERMAN LOC: JEF U #: [id number] AGE/SX: 79/F ROOM: RICHARD RE11/26/19REG DR: Tevin Samuels MD : 38 BED: A DIS: STATUS: ADM IN TLOC: SPEC #: [id number]:COCHRAN:[id number] RECD: 12/01/19 STATUS: DEVORA REQ #: [id number] KEENAN: 11/30/[address]: Tevin Samuels MD ENTERED: 12/01/19 SP TYPE: HEARTV OTHR DR: Self Referred Home Bryant MD R1 Donna Carson MD, Rajyalakshmi MD Pepper, Gregory S MD Sankaranarayanan, Venkataraj anORDERED: DECAL, SURG PATH LVL 4 CODES: I50685 - AORTIC VALVE, N K89308 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 [place], [place] [id number] Home Bryant MD R1 [address] [place] [address] [place] [address] [facility] [address] [place] [id number] Ramu Sutherland MD [address] [place] [address] [place] [address] [address] [place] [address] T[place] [address] [address] [place] [address] CONTINUED ON NEXT PAGE RUN DATE: 12/04/19 West - LAB PAGE 2 RUN TIME: 1306 Specimen Inquiry RUN USER: INTERFACE SPEC #: 20:COCHRAN:[id number] PATIENT: JORGE A SHERMAN #[id number] (Continued) PROCEDURES: DECAL (12/01/19) SURG PATH LVL 4 (12/01/19) TISSUES: A. AORTIC VALVE, NOS - AORTIC VALVE CPT CODES CPT CODE(S): 45496 , 51472 , , , , , FINAL DIAGNOSIS [...] 12/04/19 1306 END OF REPORT COMPREHENSIVE METABOLIC [id number] 13:00:00 Test Item Value Reference Range Interpretation [...] 38-126 N (test code = ALKP) PROTHROMBIN [id number] 12:57:00 Test Item Value Reference Range Interpretation [...] myocar dial infarction. 2.0 - 3.0 3. Web Marketing Manager al prosthesis hear t valves, recurre nt systemic emboli sm. 3.0 - 4.5 COMPREHENSIVE METABOLIC [id number] 12:55:00 Test Item Value Reference Range Interpretation [...] 38-126 (test code = ALKP) CBC W/AUTO [id number] 12:54:00 Test Item Value Reference Range Interpretation [...] 0.00 K/mm3 0.0-0.1 N NRBC#) COMPREHENSIVE METABOLIC [id number] 12:53:00 Test Item Value Reference Range Interpretation [...] code = UNITS/L 38-126 ALKP) GLUCOSE BEDSIDE [id number] 12:46:00 Test Item Value Reference Range Interpretation Comments GLUCOSE BEDSIDE TESTING 111 MG/DL 60-99 H Noti fied Nurse~ (test code = GLUBED) GLUCOSE BEDSIDE [id number] 10:31:00 Test Item Value Reference Range Interpretation Comments GLUCOSE BEDSIDE TESTING (test code 109 MG/DL 60-99 H = GLUBED) GLUCOSE BEDSIDE [id number] 10:31:00 Test Item Value Reference Range Interpretation Comments GLUCOSE BEDSIDE TESTING (test code 112 MG/DL 60-99 H = GLUBED) GLUCOSE BEDSIDE [id number] 10:31:00 Test Item Value Reference Range Interpretation Comments GLUCOSE BEDSIDE TESTING (test code 124 MG/DL 60-99 H = GLUBED) GLUCOSE BEDSIDE [id number] 10:30:00 Test Item Value Reference Range Interpretation Comments GLUCOSE BEDSIDE TESTING (test code 143 MG/DL 60-99 H = GLUBED) - XR CHEST [id number] 08:28:00 [facility] : 1940 Sex: F Patient Name: JORGE A SHERMAN Unit No: [id number] EXAMS: CPT CODE: [id number] XR CHEST 1V 26405 B2 EXAM: - XR CHEST 1V HISTORY: [...] RT(R) Transcrpt Date/Tm/Trnsp: 12/04/2019 (08) t.CARLAR.VB7 Orig PrintD/T: S: 12/04/2019 (0831) [facility] NAME: JORGE A SHERMAN [address] [address] PHYS: [place] [address] : 1940 AGE: 79 SEX: F LOC: Z.SI06 A PHONE #: [phone] EXAM DATE: 12/04/2019 STATUS: ADM IN FAX #: [phone] RADIOLOGY NO: PAGE 1 Signed ReportGLUCOSE BEDSIDE [id number] 08:00:00 Test Item Value Reference Range Interpretation Comments GLUCOSE BEDSIDE TESTING (test code 167 MG/DL 60-99 H = GLUBED) GLUCOSE BEDSIDE [id number] 20:26:00 Test Item Value Reference Range Interpretation Comments GLUCOSE BEDSIDE TESTING (test code 140 MG/DL 60-99 H = GLUBED) - XR CHEST [id number] 15:49:00 [facility] : 1940 Sex: F Patient Name: JORGE A SHERMAN Unit No: [id number] EXAMS: CPT CODE: [id number] XR CHEST 1V 20551 EXAM: - XR CHEST 1V CLINICAL HISTORY: CHEST TUBE REMOVAL COMPARISON: Chest radiographs 12/03/2019 and 12/02/2019. LOCATION: H65 FINDINGS: Interval removal of mediastinal drains. Unchanged right central line catheter.Midline sternotomy wires and mediastinal surgical clips again noted. Evidence of valve repair. The trachea appears normal. The cardiac silhouette is mildly enlarged and unchanged from priors. No confluent airspace opacities noted. No pleural effusions. No large pneumothorax. Limited evaluation of softtissues and osseous structures is grossly unremarkable. IMPRESSION: Interval removal of mediastinal drains. No confluent airspace opacity or large pneumothorax. Unchanged cardiomegaly. at 1549 Reported and signed by: Jim Rosales MD CC: Tevin Samuels; Ramu Sutherland MD Technologist: Zoltan Low (RT) Transcrpt Date/Tm/Trnsp: 12/03/2019 (0204) t.CARLAR.JW22 Orig Print D/T: S: 12/03/2019 (9046) [facility] NAME: JORGE A SHERMAN [id number] PHYS: [place] [address] : 1940 AGE: 79 SEX: F LOC: Z.SI06 A PHONE #: [phone] EXAM DATE: 12/03/2019 STATUS: ADM IN FAX #: [phone] RADIOLOGY NO: PAGE 1 Signed ReportGLUCOSE BEDSIDE [id number] 11:56:00 Test Item Value Reference Range Interpretation Comments GLUCOSE BEDSIDE TESTING (test code 160 MG/DL 60-99 H = GLUBED) - XR CHEST [id number] 06:30:00 [facility] : 1940 Sex: F Patient Name: JORGE A SHERMAN Unit No: [id number] EXAMS: CPT CODE: [id number] XR CHEST 1V [id number] Location of dictation: B2 Portable chest one [...] signed by: Ella Craft M.D. CC: Tevin Samuels;Ramu Sutherland MD Technologist: Yobani Elias, RT(R) Transcrpt Date/Tm/Trnsp: 12/03/2019 (0630) [email or web address] Orig Print D/T: S: 12/03/2019 (33) [facility] NAME: JORGE A SHERMAN [id number] [address] PHYS: [place] [address] : 1940 AGE: 79 SEX: F LOC: [id number] PHONE #: [phone] EXAM DATE: 12/03/2019 STATUS: ADM IN FAX #: [phone] RADIOLOGY NO: PAGE 1 Signed ReportGLUCOSE BEDSIDE [id number] 21:37:00 Test Item Value Reference Range Interpretation Comments GLUCOSE BEDSIDE TESTING (test code 102 MG/DL 60-99 H = GLUBED) GLUCOSE BEDSIDE [id number] 17:38:00 Test Item Value Reference Range Interpretation Comments GLUCOSE BEDSIDE TESTING (test code 155 MG/DL 60-99 H = GLUBED) GLUCOSE BEDSIDE [id number] 12:02:00 Test Item Value Reference Range Interpretation Comments GLUCOSE BEDSIDE TESTING (test code 139 MG/DL 60-99 H = GLUBED) PROTHROMBIN [id number] 10:15:00 Test Item Value Reference Range Interpretation [...] myocar dial infarction. 2.0 - 3.0 3. Web Marketing Manager al prosthesis hear t valves, recurre nt systemic emboli sm. 3.0 - 4.5 UNABLE TO DRAW BLOOD, REASON: CBNNOTIFIED PATIENT CARE STAFF: ON 12/02/19 AT 0715 BY Tolu LeggettLUCOSE BEDSIDE [id number] 08:05:00 Test Item Value Reference Range Interpretation Comments GLUCOSE BEDSIDE TESTING (test code 135 MG/DL 60-99 H = GLUBED) - XR CHEST [id number] 06:21:00 [facility] 1940 Sex: F Patient Name: JORGE A SHERMAN Unit No: [id number] EXAMS: CPT CODE: [id number] XR CHEST 1V 46858 HISTORY: Follow-up Location: C3 COMPARISON:12/01/2019 FINDINGS: 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 Endotracheal tube and nasogastric tube have been removed. [place]aura catheter has been removed. No pneumothorax. Mild cardiomegaly persists. Perihilar and retrocardiac left basilar opacity persists. No otherchanges from prior study. IMPRESSION: 1. Interval extubation and interval removal of [place]Laura catheter. 2. No pneumothorax. No other changes from prior study. at 0621 Reported and signed by: Donna Foy MD CC: Tevin Samuels; Ramu Sutherland MD Technologist: Yobani Elias, RT(R) Transcrpt Date/Tm/Trnsp: 12/02/2019 (620) constantin.RXC2 Orig Print D/T: S: 12/02/2019 (624) [facility] NAME: JORGE A SHERMAN [id number] [address] PHYS: Donna Alanis MD [place] [address] : 1940 AGE: 79 SEX: F LOC: Z.SI 06 A PHONE #: [phone] EXAM DATE: 12/02/2019 STATUS: ADM IN FAX #: [phone] RADIOLOGY NO: PAGE 1 Signed ReportGLUCOSE BEDSIDE [id number] 19:57:00 Test Item Value Reference Range Interpretation Comments GLUCOSE BEDSIDE TESTING (test code 116 MG/DL 60-99 H = GLUBED) GLUCOSE BEDSIDE [id number] 18:10:00 Test Item Value Reference Range Interpretation Comments GLUCOSE BEDSIDE TESTING (test code 128 MG/DL 60-99 H = GLUBED) GLUCOSE BEDSIDE [id number] 17:09:00 Test Item Value Reference Range Interpretation Comments GLUCOSE BEDSIDE TESTING (test code 120 MG/DL 60-99 H = GLUBED) GLUCOSE BEDSIDE [id number] 15:48:00 Test Item Value Reference Range Interpretation Comments GLUCOSE BEDSIDE TESTING (test code 122 MG/DL 60-99 H = GLUBED) GLUCOSE BEDSIDE [id number] 14:09:00 Test Item Value Reference Range Interpretation Comments GLUCOSE BEDSIDE TESTING (test code 117 MG/DL 60-99 H = GLUBED) GLUCOSE BEDSIDE [id number] 13:23:00 Test Item Value Reference Range Interpretation Comments GLUCOSE BEDSIDE TESTING (test code 112 MG/DL 60-99 H = GLUBED) GLUCOSE BEDSIDE [id number] 12:26:00 Test Item Value Reference Range Interpretation Comments GLUCOSE BEDSIDE TESTING (test code 121 MG/DL 60-99 H = GLUBED) GLUCOSE BEDSIDE [id number] 11:12:00 Test Item Value Reference Range Interpretation Comments GLUCOSE BEDSIDE TESTING (test code 133 MG/DL 60-99 H = GLUBED) GLUCOSE BEDSIDE [id number] 10:24:00 Test Item Value Reference Range Interpretation Comments GLUCOSE BEDSIDE TESTING (test code 139 MG/DL 60-99 H = GLUBED) GLUCOSE BEDSIDE [id number] 09:26:00 Test Item Value Reference Range Interpretation Comments GLUCOSE BEDSIDE TESTING (test code 139 MG/DL 60-99 H = GLUBED) GLUCOSE BEDSIDE [id number] 08:31:00 Test Item Value Reference Range Interpretation Comments GLUCOSE BEDSIDE TESTING (test code 138 MG/DL 60-99 H = GLUBED) - XR CHEST [id number] 07:58:00 [facility] : 1940 Sex: F Patient Name: JORGE A SHERMAN Unit No: [id number] EXAMS: CPT CODE: [id number] XR CHEST 1V 03511 B2 EXAM: - XR CHEST 1V HISTORY: S/P CABG COMPARISON: 11/30/2019 FINDINGS: Endotracheal tube, nasogastric tube, [place] catheter and right subclavian central line in [...] CC: Tevin Samuels; Ramu Sutherland MD Technologist: RT Mando(R) Transcrpt Date/Tm/Trnsp: 12/01/2019 (0758) t.SDR.VB7 Orig Print D/T: S: 12/01/2019 (0801) [facility] NAME: JORGE A SHERMAN [address] PHYS: [place] [address] : 1940 AGE: 79 SEX: F LOC: Z.SI06 A PHONE #: [phone] EXAM DATE: 12/01/2019 STATUS: ADM IN FAX #: [phone] RADIOLOGY NO: PAGE 1 Signed ReportGLUCOSE BEDSIDE [id number] 07:12:00 Test Item Value Reference Range Interpretation Comments GLUCOSE BEDSIDE TESTING (test code 137 MG/DL 60-99 H = GLUBED) GLUCOSE BEDSIDE [id number] 06:21:00 Test Item Value Reference Range Interpretation Comments GLUCOSE BEDSIDE TESTING (test code 141 MG/DL 60-99 H = GLUBED) GLUCOSE BEDSIDE [id number] 03:09:00 Test Item Value Reference Range Interpretation Comments GLUCOSE BEDSIDE TESTING (test code 158 MG/DL 60-99 H = GLUBED) GLUCOSE BEDSIDE [id number] 02:23:00 Test Item Value Reference Range Interpretation Comments GLUCOSE BEDSIDE TESTING (test code 149 MG/DL 60-99 H = GLUBED) GLUCOSE BEDSIDE [id number] 23:56:00 Test Item Value Reference Range Interpretation Comments GLUCOSE BEDSIDE TESTING (test code 171 MG/DL 60-99 H = GLUBED) GLUCOSE BEDSIDE [id number] 23:08:00 Test Item Value Reference Range Interpretation Comments GLUCOSE BEDSIDE TESTING (test code 163 MG/DL 60-99 H = GLUBED) GLUCOSE BEDSIDE [id number] 21:54:00 Test Item Value Reference Range Interpretation Comments GLUCOSE BEDSIDE TESTING (test code 164 MG/DL 60-99 H = GLUBED) BASIC METABOLIC [id number] 21:36:00 Test Item Value Reference Range Interpretation [...] code = 8.2 MG/DL 8.4-10.2 L CA) [id number] 21:36:00 Test Item Value Reference Range Interpretation Comments MAGNESIUM (test code = 6.7 MG/DL 1.6-2.3 ALEYDA Bell TO ANA Carr& MAG) READBACK ON AT 2136 BY Dario Maria BASIC METABOLIC [id number] 21:33:00 Test Item Value Reference Range Interpretation [...] code = 8.2 MG/DL 8.4-10.2 L CA) [id number] 21:33:00 Test Item Value Reference Range Interpretation Comments MAGNESIUM (test code = MAG) MG/DL 1.6-2.3 PROTHROMBIN [id number] 21:31:00 Test Item Value Reference Range Interpretation [...] myocar dial infarction. 2.0 - 3.0 3. Web Marketing Manager al prosthesis hear t valves, recurre nt systemic emboli sm. 3.0 - 4.5 Comments to Service Sprinkler Helper: PEDIATRIC TUBES!Comments to Service Sprinkler Helper: PEDIATRIC TUBESPTT [id number] 21:31:00 Test Item Value Reference Range Interpretation Comments PTT ACTIVATED (test code = APTT) 21.8 SECONDS 25.1-36.5 L Comments to Service Sprinkler Helper: PEDIATRIC TUBES!Comments to Service Sprinkler Helper: PEDIATRIC TUBESBASIC METABOLIC [id number] 21:30:00 Test Item Value Reference Range Interpretation [...] CALCIUM (test code = CA) MG/DL 8.7-9.7 [id number] 21:30:00 Test Item Value Reference Range Interpretation Comments MAGNESIUM (test code = MAG) MG/DL 1.6-2.3 CBC W/AUTO [id number] 21:24:00 Test Item Value Reference Range Interpretation [...] = 0.00 K/mm3 0.0-0.1 N NRBC#) - CHEST [id number] 20:54:00 [facility] : 1940 Sex: F Patient Name: JORGE A SHERMAN Unit No: [id number] EXAMS: CPT CODE: [id number] XR CHEST 1V 41229 EXAM: - XR CHEST 1V LOCATION: C3 HISTORY: S/P CABG COMPARISON: 11/29/2019 FINDINGS: Single view of the chest. Right subclavian catheter tip overlies the cubital junction. [place]aura catheter tip overlies main pulmonarytrunk. Endotracheal tube [...] t.SDR.HV2 Orig Print D/T: S: 11/30/2019 (2056) [facility] NAME: JORGE A SHERMAN [address] [address] PHYS: [place] [address] : 1940 AGE: 79 SEX: F LOC: Z.SI06 A PHONE #: [phone] EXAM DATE: 11/30/2019 STATUS: ADM IN FAX #:[phone] RADIOLOGY NO: PAGE 1 Signed Report GLUCOSE BEDSIDE [id number] 20:17:00 Test Item Value Reference Range Interpretation Comments GLUCOSE BEDSIDE TESTING (test code 206 MG/DL 60-99 H = GLUBED) BASIC METABOLIC [id number] 19:45:00 Test Item Value Reference Range Interpretation [...] 7.7 MG/DL 8.4-10.2 L CA) BASIC METABOLIC [id number] 19:42:00 Test Item Value Reference Range Interpretation [...] (test code = MG/DL 8.7-9.7 CA) PROTHROMBIN [id number] 19:42:00 Test Item Value Reference Range Interpretation [...] myocar dial infarction. 2.0 - 3.0 3. Web Marketing Manager al prosthesis hear t valves, recurre nt systemic emboli sm. 3.0 - 4.5 PTT [id number] 19:42:00 Test Item Value Reference Range Interpretation Comments PTT ACTIVATED (test code = APTT) 26.3 SECONDS 25.1-36.5 N BASIC METABOLIC [id number] 19:39:00 Test Item Value Reference Range Interpretation [...] code = CA) MG/DL 8.7-9.7 BASIC METABOLIC [id number] 19:38:00 Test Item Value Reference Range Interpretation [...] code = CA) MG/DL 8.7-9.7 CBC W/AUTO [id number] 19:32:00 Test Item Value Reference Range Interpretation [...] code = 0.00 K/mm3 0.0-0.1 N NRBC#) [id number] 18:06:00 Test Item Value Reference Range Interpretation Comments POTASSIUM (test code = K) 5.9 MMOL/L 3.5-5.1 H [id number] 18:06:00 Test Item Value Reference Range Interpretation Comments GLUCOSE (test code = GLU) 146 MG/DL 74-106 H [id number] 18:03:00 Test Item Value Reference Range Interpretation Comments POTASSIUM (test code = K) 5.9 MMOL/L 3.5-5.1 H [id number] 18:03:00 Test Item Value Reference Range Interpretation Comments GLUCOSE (test code = GLU) MG/DL 74-106 [id number] 17:57:00 Test Item Value Reference Range Interpretation Comments HEMOGLOBIN (test code = HGB) 7.2 G/DL 11.2-14.9 L [id number] 17:57:00 Test Item Value Reference Range Interpretation Comments HEMATOCRIT (test code = HCT) 22.9 % 33.2-43.5 L DIFFERENTIAL [id number] 17:03:00 Test Item Value Reference Range Interpretation Comments RBC MORPHOLOGY REQUIRED (test code = NORMAL RBCM) HYPERSEGMENTED POLYS (test code = FEW NONE HYPP) PLATELET ESTIMATE (test code = ADEQUATE ADEQUATE PLTEST) PLATELET MORPHOLOGY (test code = NORMAL NORMAL PLTMORPH) [id number] 17:03:00 Test Item Value Reference Range Interpretation Comments HEMOGLOBIN (test code = 4.5 G/DL 11.2-14.9 LL CALL ED TO FANCINA B HGB) REFUELING RAMPMAN & READBAC K ON 11/30/19 AT 162 5 BY Malachi Santamaria [id number] 17:03:00 Test Item Value Reference Range Interpretation Comments HEMATOCRIT (test code = 15.0 % 33.2-43.5 LL CALL ED TO FANCINA OR HCT) RN & READBACK O N 11/30/19 AT 162 5 BY Malachi Santamaria [id number] 16:36:00 Test Item Value Reference Range Interpretation Comments POTASSIUM (test code = K) MMOL/L 3.5-5.1 [id number] 16:36:00 Test Item Value Reference Range Interpretation Comments GLUCOSE (test code = GLU) 138 MG/DL 74-106 H [id number] 16:36:00 Test Item Value Reference Range Interpretation Comments POTASSIUM (test code = K) 5.0 MMOL/L 3.5-5.1 N [id number] 16:36:00 Test Item Value Reference Range Interpretation Comments GLUCOSE (test code = GLU) 138 MG/DL 74-106 H DIFFERENTIAL [id number] 16:28:00 Test Item Value Reference Range Interpretation Comments RBC MORPHOLOGY REQUIRED (test code = RBCM) PLATELET ESTIMATE (test code = PLTEST) ADEQUATE PLATELET MORPHOLOGY (test code = NORMAL PLTMORPH) [id number] 16:28:00 Test Item Value Reference Range Interpretation Comments HEMOGLOBIN (test code = 4.5 G/DL 11.2-14.9 LL CALL ED TO FANCINA B HGB) REFUELING RAMPMAN & READBAC K ON 11/30/19 AT 162 5 BY Malachi Santamaria [id number] 16:28:00 Test Item Value Reference Range Interpretation Comments HEMATOCRIT (test code = 15.0 % 33.2-43.5 LL CALL ED TO FANCINA OR HCT) RN & READBACK O N 11/30/19 AT 162 5 BY Malachi Santamaria DIFFERENTIAL [id number] 16:28:00 Test Item Value Reference Range Interpretation Comments RBC MORPHOLOGY REQUIRED (test code = RBCM) PLATELET ESTIMATE (test code = PLTEST) ADEQUATE PLATELET MORPHOLOGY (test code = NORMAL PLTMORPH) [id number] 16:28:00 Test Item Value Reference Range Interpretation Comments HEMOGLOBIN (test code = 4.5 G/DL 11.2-14.9 LL CALL ED TO FANCINA B HGB) REFUELING RAMPMAN & READBAC K ON 11/30/19 AT 162 5 BY Malachi Santamaria [id number] 16:28:00 Test Item Value Reference Range Interpretation Comments HEMATOCRIT (test code = 15.0 % 33.2-43.5 LL CALL ED TO FANCINA OR HCT) RN & READBACK O N 11/30/19 AT 162 5 BY Malachi Santamaria BASIC METABOLIC [id number] 13:26:00 Test Item Value Reference Range Interpretation [...] CA) PLEASE CALL RESULTS TO PHONE #: [phone] [employer] METABOLIC [id number] 13:25:00 Test Item Value Reference Range Interpretation [...] CA) PLEASE CALL RESULTS TO PHONE #: [phone] [employer] METABOLIC [id number] 13:22:00 Test Item Value Reference Range Interpretation [...] 8.7-9.7 PLEASE CALL RESULTS TO PHONE #: [phone] [facility] METABOLIC [id number] 13:22:00 Test Item Value Reference Range Interpretation [...] 8.7-9.7 PLEASE CALL RESULTS TO PHONE #: [phone] [facility] W/AUTO [id number] 13:13:00 Test Item Value Reference Range Interpretation [...] NRBC#) PLEASE CALL RESULTS TO PHONE #: [phone] [id number] 12 AB [id number] 18:12:00 Test Item Value Reference Range Interpretation Comments HIV 1 2 COMBO AG/AB SCREEN AB/AG NON REACTIVE NONREACTIVE (test code = [id number]) PROTHROMBIN [id number] 17:56:00 Test Item Value Reference Range Interpretation [...] dial infarction. 2. 0 - 3.0 3. Web Marketing Manager al prosthesis hear t valves, recurre nt systemic emboli sm. 3.0 - 4.5 PTT [id number] 17:56:00 Test Item Value Reference Range Interpretation Comments PTT ACTIVATED (test code = APTT) 35.0 SECONDS 25.1-36.5 N PLT RESPONSE TO [id number] 17:56:00 Test Item Value Reference Range Interpretation [...] had fewer adver se events. COMPREHENSIVE METABOLIC [id number] 17:40:00 Test Item Value Reference Range Interpretation [...] in the last 72 hours- XR CHEST [id number] 17:32:00[facility] : 1940 Sex: F Patient Name: JORGE A SHERMAN Unit No: [id number] EXAMS: CPT CODE: [id number] XR CHEST 1V 88824 EXAM: - XR CHEST 1V LOCATION: C3 HISTORY: Cardiac/Heart Surgery COMPARISON: None [...] Technologist: Zoltan Low (RT) Transcrpt Date/Tm/Trnsp: 11/29/2019 (1732) constantin.MUNIR.HV2 Orig Print D/T: S: 11/29/2019 (1739) [facility] NAME: EFREN SHERMANA[address] PHYS: Argelia [place] [address] : 1940 AGE: 79 SEX: F LOC: Kwame Millan PHONE #: [phone] EXAM DATE: 11/29/2019 STATUS: ADM IN FAX #: [phone] RADIOLOGY NO: PAGE 1 Signed ReportCOMPREHENSIVE METABOLIC PANEL 2019-11-29 17:29:00 Test Item Value Reference Range [...] H (test code = MBG) COMPREHENSIVE METABOLIC [id number] 17:26:00 Test Item Value Reference Range Interpretation [...] not done in the last 72 hoursPROTHROMBIN [id number] 17:24:00 Test Item Value Reference Range Interpretation [...] myocar dial infarction. 2.0 - 3.0 3. Web Marketing Manager al prosthesis hear t valves, recurre nt systemic emboli sm. 3.0 - 4.5 PTT [id number] 17:24:00 Test Item Value Reference Range Interpretation Comments PTT ACTIVATED (test code = APTT) 35.0 SECONDS 25.1-36.5 N PLT RESPONSE TO [id number] 17:24:00 Test Item Value Reference Range Interpretation Comments PLT RESPONSE TO PLAVIX (test code = PRU 194-418 PLAVRES) CBC W/AUTO [id number] 17:14:00 Test Item Value Reference Range Interpretation [...] 112 MG/DL 60-99 H = GLUBED) T4 [id number] 17:37:00 Test Item Value Reference Range Interpretation Comments T4 FREE (test code = T4F) 1.3 NG/DL 0.78-2.19 N - CT ANGIO NECK W WO [id number] 17:37:00 [facility] : 1940 Sex: F Patient Name: JORGE A SHERMAN Unit No: [id number] EXAMS: CPT CODE: [id number] CT [place] [address] Examination: CTA head and neck with contrast. Location code: 60. TECHNIQUE: Multiple axial images of the head and neck were obtained after intravenous administration of contrast with sagittal and coronalreconstructions. MIP images were obtained in the sagittal and coronal format. CT examination was performed using automated dose reduction. 100 mL of Isovue-370 contrast was injected intravenously. Creatinine measures 0.7. GFR is greater than 60. Discussion: Clinical history is significant for dizziness and blurred vision. The origin of both common carotid arteries and vertebral arteries are unremarkab le. No flow limiting stenosis is identified. The remainder of both common carotid arteries are widely patent. There is no evidence for dissection. No flow limiting stenosis or thrombus is identified. Similarly both vertebral arteries are patent. At the carotid bifurcation bilaterally calcified plaqueis identified. This produces approximately 40% stenosis on [...] the anterior communicating artery, MCA bifurcation/trifurcation, basilar tipor posterior indicating arteries. There is no focal narrowing of the left posterior cerebral artery and its proximal portion of uncertain significance. The remainder of the posterior cerebral artery the left is widely patent. The remainder the cerebral arteries are grossly unremarkable. No intraluminal thrombus is identified in the remainder the cerebral arteries. No abnormal enhancement is identified with the brain after administration of contrast. Both parotid glands and submandibular glands are normal in appearance. No enlarged lymphadenopathy is noted. Thyroid gland is somewhat atrophic. Imagesthrough the lung apices reveals minimal biapical scarring. IMPRESSION: 1. 60-70% stenosis at the left carotid bulb which is borderline hemodynamically significant. 2. Approximately 40% stenosis of the proximal right internal carotid artery at the level of the carotid bulb. 3. Focal narrowing of the proximal left posterior cerebral artery. It is unclear if this is a an acute finding or a chronic findin g. If signs and symptoms are referable to the left posterior cerebral artery [facility] NAME: JORGE A SHERMAN [id number] [address] PHYS: [id number] - Ranjana Mcclelland MD [address] [place] [address] : 1940 AGE: 79 SEX: F LOC: Z.355 A PHONE #: [phone] EXAM DATE: 11/27/2019 STATUS: ADM IN FAX#: [phone] RAD #: D/C DT PAGE 1 Signed Report (CONTINUED) Patient Name: JORGE A SHERMAN Unit No: [id number] EXAMS: CPT CODE: [id number] CT [place] CONT [address] (Continued) circulation conventional angiography is recommended for further evaluation. 4. Otherwise unremarkable CTA examination of brain. at 1737 Reported and signed by: Anthony Boyer MD CC: Ramu Sutherland MD; Rashid Son MD; Ranjana Mcclelland MD Technologist: Chrissy Tovar RT (R) (CT) CTDI: DLP: Trnscrpt: 11/27/2019 (3987) t.SDR.VR5 [facility] NAME: JORGE A SHERMAN [id number] PHYS: Ranjana Scott MD [address] [place] [address] : 1940 AGE: 79 SEX: F LOC: Z.355 A PHONE #: [phone] EXAM DATE: 11/27/2019 STATUS: ADM IN FAX #: [phone] RAD #: D/C DT PAGE 2 Signed Report Patient Name: JORGE A SHERMAN Unit No: [id number] EXAMS: CPT CODE: [id number] CT ANGIO NECK W [place] CONT [address] (Continued) Orig Print D/T: S: 11/27/2019 (174)[facility] NAME: JORGE A SHERMAN [address] PHYS: [id number] Ranjana De Los Santos MD [address] [place] [address] : 1940 AGE: 79 SEX: F LOC: Z.355 A PHONE #: [phone] EXAM DATE: 11/27/2019 STATUS: ADM IN FAX #: [phone] RAD #: D/C DT PAGE 3 Signed Report- CT ANGIO [id number] 17:37:00 [facility] : 1940 Sex: F Patient Name: JORGE A SHERMAN Unit No: [id number] EXAMS: CPT CODE: [id number] CT ANGIO HEAD [address] Examination: CTA head and neck with contrast. Location code: H 60. TECHNIQUE: Multiple axial images of the head andneck were obtained after intravenous administration of contrast with sagittal and coronal reconstruct ions. MIP images were obtained in the sagittal [...] of both common carotid arteries are widely patent.There is no evidence for dissection. No flow limiting stenosis or thrombus is identified. Similarly both vertebral arteries are patent. At the carotid bifurcation bilaterally calcified plaque is identified. This produces approximately 40% stenosis on the right and approximately 60%-70% stenosis on theleft. The remainder of the internal carotid arteries [...] significant. 2. Approximately 40% stenosis of the proximalright internal carotid artery at the level of the carotid bulb. 3. Focal narrowing of the proximal left posterior cerebral artery. It is unclear if this is a an acute finding or a chronic finding. If signs and symptoms are referable to the left posterior cerebral artery [facility] NAME: JORGE A SHERMAN [id number] PHYS: [id number] - Ranjana Mcclelland MD [address] [place] [address] : 1940 AGE: 79 SEX: F [id number] LOC: Z.355 A PHONE #: [phone] EXAM DATE: 11/27/2019 STATUS: ADM IN FAX #: [phone] RAD #: D/C DT PAGE 1 Signed Report (CONTINUED) Patient Name: JORGE A SHERMAN Unit No: [id number] EXAMS: CPT CODE: [id number] CT ANGIO HEAD [address] (Continued) circulation conventional angiography isrecommended for further evaluation. 4. Otherwise unremarkable CTA examination of brain. at 1737 Reported and signed by: Anthony Boyer MD CC: Ramu Sutherland MD; Rashid Son MD; Ranjana Mcclelland MD Technologist: Chrissy Tovar RT (R) (CT) CTDI: DLP: Trnscrpt: 11/27/2019 (1737) t.SDR.VR5 [facility] NAME: JORGE A SHERMAN PHYS: [place] [address] : 1940 AGE: 79 SEX: F : Z.355 A PHONE #: [phone] EXAM DATE: 11/27/2019 STATUS: ADM IN FAX #: [phone] RAD #: D/C DT PAGE 2 Signed Report Patient Name: JORGE A SHERMAN Unit No: [id number] EXAMS: CPT CODE: [id number] CT ANGIO HEAD [address] (Continued) Orig Print D/T: S: 11/27/2019 (1740) [facility] NAME: JORGE A SHERMAN PHYS: [id number] [place] [address] : 1940 AGE: 79 SEX: F LOC: Z.355 A PHONE #: [phone] EXAM DATE: 11/27/2019 STATUS: ADM IN FAX #: [phone] RAD #: D/C DT PAGE 3 Signed [facility] RE[facility] [id number] 17:02:00 Test Item Value Reference Range Interpretation Comments TSH REFLEX TO FT4 0.183 MIU/L 0.65-4.68 L Please be aware that (test code = bias results fo r TSH TSHREFLEX) may occur forpa tient who are taking Biotin supplements. C REACTIVE [id number] 16:34:00 Test Item Value Reference Range Interpretation Comments C REACTIVE PROTEIN (test code = 1.00 MG/DL 0.00-9.99 N CRP) - MRI BRAIN W/O [id number] 16:27:00 [facility] : 1940 Sex: F Patient Name: JORGE A SHERMAN Unit No: [id number] EXAMS: CPT CODE: [id number] MRI BRAIN W/O CONTRAST 83000 B2 - MRI BRAIN W/O CONTRAST HISTORY: TIA TECHNIQUE: Multiplanar multisequence MR images of the brain were obtained without intravenous contrast. COMPARISON: None FINDINGS: No abnormal brain parenchymal signal. There is no mass, mass effect or abnormal extra-axial fluid collection. Diffusion-weighted images show no hyperacute, acute or early subacute infarction. The ventricles are normal in size, shape, andposition. There are normal signal voids in the larger intracranial vessels. The paranasal sinuses and mastoid air cells are predominantly clear. The marrow signal pattern is within normal limits. IMPRES LIVAN: No significant intracranial abnormalities. at 1627 Reported and signed by: Haresh Gross MD CC: Ramu Sutherland MD; Rashid Son MD Technologist: Debby Ceja(CT)(MRI) Transcrpt Date/Tm/Trnsp: 11/27/2019 (9310) DoyleR.VB7 Orig Print D/T: S: 11/27/2019 (2154) [facility] NAME: JORGE A SHERMAN [id number] [address] PHYS: ABRANSAM [place] [address] : 1940 AGE: 79 SEX: F LOC: Kwame A PHONE #: [phone] EXAM DATE: 11/27/2019 STATUS: ADM IN FAX #: [phone] RADIOLOGY NO: PAGE 1 Signed ReportGLUCOSE BEDSIDE [id number] 16:17:00 Test Item Value Reference Range Interpretation Comments GLUCOSE BEDSIDE TESTING (test code 118 MG/DL 60-99 H = GLUBED) BASIC METABOLIC [id number] 06:33:00 Test Item Value Reference Range Interpretation [...] LDL) mg/dLNEAR OPTIMAL/ABOVE OPTIMAL........ .100-12 9 mg/dL BORDER LINE HIGH.........13 0-159 mg/dL HIGH.........16 0-189 mg/dL VERY HIGH.........>/ = 190 mg/dL [id number] 06:33:00 Test Item Value Reference Range Interpretation Comments MAGNESIUM (test code = MAG) 2.0 MG/DL 1.6-2.3 N BASIC METABOLIC [id number] 06:22:00 Test Item Value Reference Range Interpretation [...] LDL (test MG/DL 0-99 code = LDL) [id number] 06:22:00 Test Item Value Reference Range Interpretation Comments MAGNESIUM (test code = MAG) 2.0 MG/DL 1.6-2.3 N BASIC METABOLIC [id number] 06:21:00 Test Item Value Reference Range Interpretation [...] LDL (test code = LDL) MG/DL 0-99 [id number] 06:21:00 Test Item Value Reference Range Interpretation Comments MAGNESIUM (test code = MAG) MG/DL 1.6-2.3 BASIC METABOLIC [id number] 06:18:00 Test Item Value Reference Range Interpretation [...] LDL (test code = LDL) MG/DL 0-99 [id number] 06:18:00 Test Item Value Reference Range Interpretation Comments MAGNESIUM (test code = MAG) MG/DL 1.6-2.3 GLYCOSYLATED HEMOGLOBIN [id number] 06:07:00 Test Item Value Reference Range Interpretation [...] 70-110 H (test code = MBG) PROTHROMBIN [id number] 06:03:00 Test Item Value Reference Range Interpretation [...] dial infarction. 2. 0 - 3.0 3. Web Marketing Manager al prosthesis hear t valves, recurre nt systemic emboli sm. 3.0 - 4.5 PTT [id number] 06:03:00 Test Item Value Reference Range Interpretation Comments PTT ACTIVATED (test code = APTT) 29.9 SECONDS 25.1-36.5 N CBC W/AUTO [id number] 05:52:00 Test Item Value Reference Range Interpretation [...] 0.00 K/mm3 0.0-0.1 N NRBC#) B-TYPE NATRIURETIC [id number] 21:04:00 Test Item Value Reference Range Interpretation Comments B-TYPE NATRIURETIC PEPTIDE (test 205.0 PG/ML 0-100 H code = BNP) COMPREHENSIVE METABOLIC [id number] 21:03:00 Test Item Value Reference Range Interpretation [...] UNITS/L 38-126 N (test code = ALKP) [id number] 21:03:00 Test Item Value Reference Range Interpretation Comments TROPONIN-I (test code = TROPI) 0.043 NG/ML 0.012-0.033 H COMPREHENSIVE METABOLIC [id number] 20:53:00 Test Item Value Reference Range Interpretation [...] UNITS/L 38-126 N (test code = ALKP) [id number] 20:53:00 Test Item Value Reference Range Interpretation Comments TROPONIN-I (test code = TROPI) NG/ML 0.0-0.045 COMPREHENSIVE METABOLIC [id number] 20:52:00 Test Item Value Reference Range Interpretation [...] UNITS/L 38-126 N (test code = ALKP) [id number] 20:52:00 Test Item Value Reference Range Interpretation Comments TROPONIN-I (test code = TROPI) NG/ML 0.0-0.045 COMPREHENSIVE METABOLIC [id number] 20:51:00 Test Item Value Reference Range Interpretation [...] PHOSPHATASE UNITS/L 38-126 (test code = ALKP) [id number] 20:51:00 Test Item Value Reference Range Interpretation Comments TROPONIN-I (test code = TROPI) NG/ML 0.0-0.045 COMPREHENSIVE METABOLIC [id number] 20:49:00 Test Item Value Reference Range Interpretation [...] PHOSPHATASE (test code = UNITS/L 38-126 ALKP) [id number] 20:49:00 Test Item Value Reference Range Interpretation Comments TROPONIN-I (test code = TROPI) NG/ML 0.0-0.045 CBC W/AUTO [id number] 20:40:00 Test Item Value Reference Range Interpretation [...] 0.00 K/mm3 0.0-0.1 N NRBC#) ARTERIAL BLOOD [id number] 10:23:00 Test Item Value Reference Range Interpretation [...] FIO2 (test code = COHBGFFIO2) 21 % PaO2/[id number] 10:23:00 Test Item Value Reference Range Interpretation Comments PaO2/FiO2 (test code = ITI7JEQ7) mm/Hg ARTERIAL BLOOD [id number] 10:23:00 Test Item Value Reference Range Interpretation [...] FIO2 (test code = COHBGFFIO2) 21 % PaO2/[id number] 10:23:00 Test Item Value Reference Range Interpretation Comments PaO2/FiO2 (test code = CXR0RCN0) 380.00 mm/Hg VENOUS BLOOD [id number] 10:23:00 Test Item Value Reference Range Interpretation [...] (test code LINE = SITEV) BASIC METABOLIC [id number] 08:33:00 Test Item Value Reference Range Interpretation [...] 0-189 mg/dL VERY HIGH.........>/ = 190 mg/dL [id number] 08:33:00 Test Item Value Reference Range Interpretation Comments MAGNESIUM (test code = MAG) 2.1 MG/DL 1.6-2.3 N BASIC METABOLIC [id number] 07:01:00 Test Item Value Reference Range Interpretation [...] LDL (test MG/DL 0-99 code = LDL) [id number] 07:01:00 Test Item Value Reference Range Interpretation Comments MAGNESIUM (test code = MAG) 2.1 MG/DL 1.6-2.3 N PROTHROMBIN [id number] 06:54:00 Test Item Value Reference Range Interpretation [...] myocar dial infarction. 2.0 - 3.0 3. Web Marketing Manager al prosthesis hear t valves, recurre nt systemic emboli sm. 3.0 - 4.5 PTT [id number] 06:54:00 Test Item Value Reference Range Interpretation Comments PTT ACTIVATED (test code = APTT) 30.7 SECONDS 25.1-36.5 N CBC W/AUTO [id number] 06:43:00 Test Item Value Reference Range Interpretation [...] 0.0-0.1 N NRBC#) COVID 19 Asymptomatic IH [id number] 05:46:00 Test Item Value Reference Range Interpretation [...]
[2022-03-17 18:05] LABS: Urine Blood 1+ (Negative); Urine Glucose Negative (Negative); Urine Protein 2+ (Negative)
[2022-03-17 18:19] LABS: Absolute Lymphocytes (CBC) 1.5 K/uL (0.7-4.9); Hematocrit 38.4 % (36.0-45.0); Lymphocytes % 16.4 % (15.3-44.8); MCV 95.4 fL (80-100); MPV 8.6 fL (7.6-11.3); RBC Red Blood Cell Count 4.02 M/uL (3.86-4.86)
[2022-03-17 18:25] LABS: Urine Bacteria None Seen /HPF (<20); Urine Mucus Slight /HPF (None Seen)
[2022-03-17 18:36] LABS: Albumin 4.1 g/dL (3.4-5.0); Bilirubin Total 0.9 mg/dL (0.2-1.0); Troponin High Sensitivity 18.3 pg/mL (<58.9)
[2022-03-17 18:43] LABS: Potassium 4.2 mmol/L (3.5-5.1)
[2022-03-17] MEDS ORDERED: NA CHLORIDE 0.9% 50 ML ONE (19:37)
[2022-03-17] MEDS ORDERED: ONDANSETRON 4 MG/2 ML VIAL ONE (19:37)
[2022-03-17] MEDS ORDERED: CEFTRIAXONE 1000 MG/VIAL ONE (19:37)
--- NOTE | 2022-03-17 19:46 | RAD REPORT ---
EXAM DESCRIPTION: CTAbdomen Pelvis W Contrast - 03/17/2022 7:33 pm CLINICAL HISTORY: Abdominal pain. ABD PAIN COMPARISON: Abdomen Pelvis W Contrast dated 06/07/2017; Abdomen Pelvis Wo Contrast dated 12/02/19 22 TECHNIQUE: Biphasic CT imaging of the abdomen and pelvis was performed with 100 ml non-ionic IV cont rast. All CT scans are performed using dose optimization technique as appropriate and may include automated exposure control or mA/KV adjustment according to patient size. FINDINGS: The lung bases are clear.Moderate axial hiatal hernia. The liver, spleen, pancreas, adrenal glands and kidneys are within normal limits. Cholecystectomy cli ps. Small bowel loops appear dilated in the lower abdomen compatible with a moderate mechanical small-bow el obstruction. Diverticulosis coli seen involving the sigmoid colon. Trace inter loop fluid is noted . Rounded fluid density structure anterior abdomen is unchanged. No evidence of significant lymphaden opathy. Heavy aortoiliac atherosclerosis. No suspicious bony findings. IMPRESSION: Moderate mechanical small-bowel obstruction.
[2022-03-17 21:18] LABS: Magnesium 1.6 mg/dL (1.6-2.4)
[2022-03-17] MEDS ORDERED: NA CHLORIDE 0.9% 500 ML ONE (21:24)
[2022-03-17] MEDS ORDERED: NA CHLORIDE 0.9% 1,000 ML ONE (21:24)
[2022-03-17] MEDS ORDERED: FAMOTIDINE 20 MG/2 ML VIAL IV ONE (21:25)
[2022-03-17] MEDS ORDERED: METRONIDAZOLE 500mg IVPB 500 MG/100 ML BAG IV ONE (21:25)
--- NOTE | 2022-03-17 21:29 | EDPHYS ---
Physician Documentation [facility] Name: Claudette Sherman Age: 81 yrs Sex: Female : 1940 Arrival Date: 03/17/2022 Time: 15:39 Bed 12 Private MD: Jorge Maza V ED Physician John Bansal HPI: 03/17 17:20 This 81 yrs old Female presents to ER via Ambulatory with complaints of sp3 Abdominal Pain - low. 17:29 81-year-old female sent from Dr. Maza's office for lower abdominal pain for evaluation sp3 with CT scan and laboratory values and possible admission. Patient has a history of high blood thyroidism hyperlipidemia angina among others. Patient states that her symptoms started yesterday evening at approximate 11 PM with right lower quadrant pain extending into the epigastric region. She denies any fever, URI symptoms, back pain, shortness of breath, chest pain, vomiting or diarrhea, bleeding, or any other symptoms on ROS.. Historical: - Allergies: 16:41 Codeine; ld1 16:41 Morphine; ld1 - PMHx: 16:41 Hypothyroidism; Anemia; High Cholesterol; angina pectoris; open wound on middle ld1 abdomen; Hypertension; sacrum wound; - PSHx: 16:41 Colon surgery; ld1 - Immunization history:: Adult Immunizations up to date, Client reports receiving the 2nd dose of the Covid vaccine. - Social history:: Smoking status: Patient denies any tobacco usage or history of. Patient/guardian denies using alcohol. ROS: 17:29 Constitutional: Negative for fever, chills, and weight loss, Eyes: Negative for injury, sp3 pain, redness, and discharge, ENT: Negative for injury, pain, and discharge, Neck: Negative for injury, pain, and swelling, Cardiovascular: Negative for chest pain, palpitations, and edema, Respiratory: Negative for shortness of breath, cough, wheezing, and pleuritic chest pain, Back: Negative for injury and pain, MS/Extremity: Negative for injury and deformity, Skin: Negative for injury, rash, and discoloration, Neuro: Negative for headache, weakness, numbness, tingling, and seizure, Psych: Negative for depression, anxiety, suicide ideation, homicidal ideation, and hallucinations, Allergy/Immunology: Negative for hives, rash, and allergies, Endocrine: Negative for neck swelling, polydipsia, polyuria, polyphagia, and marked weight changes, Hematologic/Lymphatic: Negative for swollen nodes, abnormal bleeding, and unusual bruising. 17:29 All other systems are negative. Exam: 17:30 Constitutional: This is a well developed, well nourished patient who is awake, alert, sp3 and in no acute distress. Head/Face: Normocephalic, atraumatic. Eyes: Pupils equal round and reactive to light, extra-ocular motions intact. Lids and lashes normal. Conjunctiva and sclera are non-icteric and not injected. Cornea within normal limits. Periorbital areas with no swelling, redness, or edema. ENT: Nares patent. No nasal discharge, no septal abnormalities noted. External auditory canals are clear. Oropharynx with no redness, swelling, or masses, exudates, or evidence of obstruction, uvula midline. Mucous membranes moist. Neck: Trachea midline, no thyromegaly or masses palpated, and no cervical lymphadenopathy. Supple, full range of motion without nuchal rigidity, or vertebral point tenderness. No Meningismus. Chest/axilla: Normal chest wall appearance and motion. Nontender with no deformity. No lesions are appreciated. Cardiovascular: Regular rate and rhythm with a normal S1 and S2. No gallops, murmurs, or rubs. Normal PMI, no JVD. No pulse deficits. Respiratory: Lungs have equal breath sounds bilaterally, clear to auscultation and percussion. No rales, rhonchi or wheezes noted. No increased work of breathing, no retractions or nasal flaring. Back: No spinal tenderness. No costovertebral tenderness. Full range of motion. Skin: Warm, dry with normal turgor. Normal color with no rashes, no lesions, and no evidence of cellulitis. MS/ Extremity: Pulses equal, no cyanosis. Neurovascular intact. Full, normal range of motion. Neuro: Awake and alert, GCS 15, oriented to person, place, time, and situation. Cranial nerves II-XII grossly intact. Motor strength 5/5 in all extremities. Sensory grossly intact. Cerebellar exam normal. Normal gait. Psych: Awake, alert, with orientation to person, place and time. Behavior, mood, and affect are within normal limits. Vital Signs: 16:39 Pulse 68; Resp 18; Temp 98.1(O); Pulse Ox 99% on R/A; Weight 54.88 kg; Height 5 ft. 2 ld1 in. (157.48 cm); Pain 8/10; 16:44 BP 217 / 51; ld1 19:52 BP 180 / 62; Pulse 75; Resp 17 S; Pulse Ox 98% on R/A; as6 21:16 BP 146 / 66; Pulse 77; Resp 18 S; Pulse Ox 98% on R/A; as6 22:47 BP 131 / 76; Pulse 72; Resp 18 S; Pulse Ox 99% on R/A; as6 16:39 Body Mass Index 22.13 (54.88 kg, 157.48 cm) ld1 MDM: 16:48 Patient medically screened. sp3 17:30 Data reviewed: vital signs, nurses notes, lab test result(s), radiologic studies. ED sp3 course: 81-year-old female with right lower quadrant abdominal pain extending into the periumbilical area. Differential diagnosis includes appendicitis, colitis, functional abdominal pain, genitourinary spectrum including UTI/pyelonephritis/kidney stone, others. I am not highly suspicious for aortic pathology including aneurysm and/or dissection, SECURITY CONTROL ASSESSOR pathology, or any other critical findings including sepsis or shock. Vital signs are normal with mild hypertension which is resolving. CT scan of the abdomen and pelvis, laboratory values, and urinalysis are all pending. Dr. Maza has asked for a call back after findings are returned. Disposition to be determined after work-up is complete and patient course is assessed.. 21:13 Differential diagnosis: Cholelithiasis, diverticulitis, gastritis, Mesenteric ischemia clara or infarction, non-specific abd pain, pancreatitis, Peptic Ulcer Disease, Peritonitis, Ureterolithiasis, urinary tract infection. Consideration of Admission/Observation Patient was admitted/placed on observation. Escalation of care including admission/observation considered. Management of patient was discussed with the following: Radiation Officer: DR Walker BARTLETT. Independent interpretation of the following test(s) in the Emergency Department CT Scan: My interpretation is SBO. Test considered but Not performed: Ultrasound GALLBLADDER. Historians other than the Patient: Family Member: DAUGHTER, . Care significantly affected by the following chronic conditions: Hypertension. 03/17 17:05 Order name: CBC with Diff; Complete Time: 18:50 sp3 03/17 17:05 Order name: CMP; Complete Time: 18:50 3 03/17 17:05 Order name: Lipase; Complete Time: 18:50 3 03/17 17:05 Order name: Urine Microscopic Only; Complete Time: 18:50 3 03/17 17:05 Order name: Troponin High Sensitivity; Complete Time: 18:50 [facility] 03/17 18:05 Order name: Urine Dipstick-Ancillary; Complete Time: 18:15 [facility] 03/17 17:05 Order name: CT Abd/Pelvis - PO and IV Contrast; Complete Time: 20:34 3 03/17 18:31 Order name: Urine Culture [facility] 03/17 20:57 Order name: Magnesium [facility] 03/17 20:57 Order name: NT PRO-BNP [facility] 03/17 20:57 Order name: PT-INR [facility] 03/17 20:57 Order name: XRAY Chest (1 view) [facility] 03/17 21:31 Order name: SARS RAPID as 03/17 22:15 Order name: RAD [facility] 03/17 17:05 Order name: IV Saline Lock; Complete Time: 18:24 [facility] 03/17 17:05 Order name: Labs collected and sent; Complete Time: 18:24 [facility] 03/17 17:05 Order name: Urine Dipstick-Ancillary (obtain specimen); Complete Time: 18:24 [facility] 03/17 17:05 Order name: EKG - Nurse/Tech; Complete Time: 19:22 [facility] 03/17 20:57 Order name: EKG; Complete Time: 20:58 [facility] 03/17 20:57 Order name: Cardiac monitoring; Complete Time: 20:58 [facility] 03/17 20:57 Order name: O2 Per Protocol; Complete Time: 20:58 [facility] 03/17 20:57 Order name: O2 Sat Monitoring; Complete Time: 20:58 [facility] 03/17 21:22 Order name: Misc. Order: mineral oil 30 mLs once PO; Complete Time: 23:40 03/17 21:26 Order name: CONS Physician Consult EDSC Administered Medications: 19:52 Drug: Rocephin - (cefTRIAXone) 1 grams Route: IVPB; Infused Over: 30 mins; Site: left as6 antecubital; 22:38 Follow up: Response: No adverse reaction; IV Status: Completed infusion; IV Intake: [id number] 19:52 Drug: Zofran (Ondansetron) 4 mg Route: IVP; Site: left antecubital; as6 22:38 Follow up: Response: No adverse reaction as6 21:30 Drug: Pepcid (famotidine) 20 mg Route: IVP; Site: left antecubital; as6 22:39 Follow up: Response: No adverse reaction as6 21:31 Drug: Flagyl (metroNIDAZOLE) 500 mg Volume: 100 ml; Route: IVPB; Rate: 200 ml/hr; as6 Infused Over: 30 mins; Site: left antecubital; 22:38 Follow up: Response: No adverse reaction; IV Status: Completed infusion; IV Intake: as6 100ml 21:31 Drug: NS 0.9% 500 ml Route: IV; Rate: bolus; Site: left antecubital; as6 22:38 Follow up: Response: No adverse reaction; IV Status: Completed infusion; IV Intake: as6 500ml 21:31 Drug: NS 0.9% 1000 ml Route: IV; Rate: 125 ml/hr; Site: left antecubital; as6 23:59 Follow up: Response: No adverse reaction; IV Status: Infusion continued upon admission; as6 IV Intake: 300ml Disposition Summary: 03/17/22 21:28 Hospitalization Ordered Hospitalization Status: Inpatient Admission clara Provider: Jorge Maza cha Location: Telemetry/[facility] (Inpatient) clara Condition: Fair clara Problem: new clara Symptoms: have improved clara Bed/Room Type: Standard clara Room Assignment: 419(03/17/22 23:26) cg Diagnosis - Other intestinal obstruction - MODERATE SBO clara - Abdominal pain, Generalized clara Forms: - Medication Reconciliation Form clara - SBAR form clara Signatures: Dispatcher [employer] John De Oliveira MD MD cha Ballard, Brenda, RN RN bb Garcia, Cindy, RN RN cg Lore Meyer RN RN ld1 Apryl Solis MD MD sp3 Jesus Manuel Morgan RN RN as6 Corrections: (The following items were deleted from the chart) 23:26 21:28 clara cg
--- NOTE | 2022-03-17 21:29 | ER ---
Nurse's Notes [facility] Name: Claudette Sherman Age: 81 yrs Sex: Female : 1940 Arrival Date: 03/17/2022 Time: 15:39 Bed 12 Private MD: Jorge Maza V Diagnosis: Other intestinal obstruction-MODERATE SBO;Abdominal pain, Generalized Presentation: 03/17 16:39 Chief complaint: Patient states: Lower abdominal pain since this morning. Denies N/V/D. ld1 Coronavirus screen: At this time, the client does not indicate any symptoms associated with coronavirus-19. Ebola Screen: No symptoms or risks identified at this time. Initial Sepsis Screen: Does the patient meet any 2 criteria? No. Patient's initial sepsis screen is negative. Does the patient have a suspected source of infection? No. Patient's initial sepsis screen is negative. Risk Assessment: Do you want to hurt yourself or someone else? Patient reports no desire to harm self or others. Onset of symptoms was March 17, 2022. 16:39 Method Of Arrival: Ambulatory ld1 16:39 Acuity: LIZ 3 ld1 Triage Assessment: 16:41 General: Appears in no apparent distress. comfortable, Behavior is calm, cooperative, ld1 appropriate for age. Pain: Complains of pain in right lower quadrant and left lower quadrant Pain does not radiate. Pain currently is 8 out of 10 on a pain scale. Quality of pain is described as throbbing, Pain began 1 day ago. Is continuous. EENT: No signs and/or symptoms were reported regarding the EENT system. Neuro: Level of Consciousness is awake, alert, obeys commands, Oriented to person, place, time, situation. Cardiovascular: Capillary refill < 3 seconds Patient's skin is warm and dry. Respiratory: Airway is patent Respiratory effort is even, unlabored. GI: Abdomen is round non-distended, Reports lower abdominal pain. : No signs and/or symptoms were reported regarding the genitourinary system. Derm: No signs and/or symptoms reported regarding the dermatologic system. Musculoskeletal: No signs and/or symptoms reported regarding the musculoskeletal system. Historical: - Allergies: 16:41 Codeine; ld1 16:41 Morphine; ld1 - PMHx: 16:41 Hypothyroidism; Anemia; High Cholesterol; angina pectoris; open wound on middle ld1 abdomen; Hypertension; sacrum wound; - PSHx: 16:41 Colon surgery; ld1 - Immunization history:: Adult Immunizations up to date, Client reports receiving the 2nd dose of the Covid vaccine. - Social history:: Smoking status: Patient denies any tobacco usage or history of. Patient/guardian denies using alcohol. Screenin:53 [facility] [place] ED Fall Risk Assessment (Adult) Score/Fall Risk Level 0 - 2 = Low Risk. Abuse as6 screen: Denies threats or abuse. Denies injuries from another. Nutritional screening: No deficits noted. Tuberculosis screening: No symptoms or risk factors identified. Assessment: 19:53 General: pt reports nausea at this time. family at bedside. no other complaints or as6 concerns noted . 21:17 Reassessment: Patient appears in no apparent distress at this time. as6 22:36 General: pt able to ambulate to bathroom . as6 22:56 General: family updated on plan of care . as6 23:30 General: attempted to call report . as6 Vital Signs: 16:39 Pulse 68; Resp 18; Temp 98.1(O); Pulse Ox 99% on R/A; Weight 54.88 kg; Height 5 ft. 2 ld1 in. (157.48 cm); Pain 8/10; 16:44 BP 217 / 51; ld1 19:52 BP 180 / 62; Pulse 75; Resp 17 S; Pulse Ox 98% on R/A; as6 21:16 BP 146 / 66; Pulse 77; Resp 18 S; Pulse Ox 98% on R/A; as6 22:47 BP 131 / 76; Pulse 72; Resp 18 S; Pulse Ox 99% on R/A; as6 16:39 Body Mass Index 22.13 (54.88 kg, 157.48 cm) ld1 ED Course: 15:39 Patient arrived in ED. am2 15:40 Jorge Maza MD is Private Physician. am2 15:43 Apryl Solis MD is Attending Physician. sp3 16:40 Triage completed. ld1 16:41 Arm band placed on right wrist. ld1 16:44 Alf Wright RN is Primary Nurse. jl7 18:25 Initial lab(s) drawn, by me, sent to lab. Urine collected: clean catch specimen, jl7 cloudy. Inserted saline lock: 22 gauge in right antecubital area, using aseptic technique. Blood collected. 19:21 Primary Nurse role handed off by Alf Wrihgt RN 2 19:31 Jesus Manuel Morgan, DANILO is Primary Nurse. as6 19:34 CT Abd/Pelvis - PO and IV Contrast In Process Unspecified. EDMS 19:37 Attending Physician role handed off by Apryl Solis MD [facility] 19:37 John Bansal MD is Attending Physician. [facility] 19:53 Bed in low position. Call light in reach. Side rails up X2. Adult w/ patient. Pulse ox as6 on. NIBP on. 21:16 Jorge Maza MD is Hospitalizing Provider. [facility] 22:47 No provider procedures requiring assistance completed. Patient admitted, IV remains in as6 place. Administered Medications: 19:52 Drug: Rocephin - (cefTRIAXone) 1 grams Route: IVPB; Infused Over: 30 mins; Site: left as6 antecubital; 22:38 Follow up: Response: No adverse reaction; IV Status: Completed infusion; IV Intake: [id number] 19:52 Drug: Zofran (Ondansetron) 4 mg Route: IVP; Site: left antecubital; as6 22:38 Follow up: Response: No adverse reaction as6 21:30 Drug: Pepcid (famotidine) 20 mg Route: IVP; Site: left antecubital; as6 22:39 Follow up: Response: No adverse reaction as6 21:31 Drug: Flagyl (metroNIDAZOLE) 500 mg Volume: 100 ml; Route: IVPB; Rate: 200 ml/hr; as6 Infused Over: 30 mins; Site: left antecubital; 22:38 Follow up: Response: No adverse reaction; IV Status: Completed infusion; IV Intake: as6 100ml 21:31 Drug: NS 0.9% 500 ml Route: IV; Rate: bolus; Site: left antecubital; as6 22:38 Follow up: Response: No adverse reaction; IV Status: Completed infusion; IV Intake: as6 500ml 21:31 Drug: NS 0.9% 1000 ml Route: IV; Rate: 125 ml/hr; Site: left antecubital; as6 23:59 Follow up: Response: No adverse reaction; IV Status: Infusion continued upon admission; as6 IV Intake: 300ml Medication: 19:54 VIS not applicable for this client. as6 Intake: 22:38 IV: 50ml; Total: 50ml. as6 22:38 IV: 100ml; Total: 150ml. as6 22:38 IV: 500ml; Total: 650ml. as6 23:59 IV: 300ml; Total: 950ml. as6 Outcome: 21:28 Decision to Hospitalize by Provider. clara 22:47 Condition: stable as6 22:47 Instructed on the need for admit. 23:59 Admitted to Tele accompanied by tech, family with patient, via wheelchair, room 419, as6 with chart, Report called to Marlin CARRASCO 03/18 00:00 Patient left the ED. as6 Signatures: Dispatcher [employer] John De Oliveira MD MD cha Leal, Jahala, RN RN jl7 Ana Maria Lomeli amYuri Sequeira mw2 Lore Meyer RN RN ld1 Apryl Solis MD MD sp3 Jesus Manuel Morgan RN RN as6
[2022-03-17 21:42] LABS: Protime INR 2.75
[2022-03-17] MEDS ORDERED: MINERAL OIL 30 ML UCUP ONE (21:51)
--- NOTE | 2022-03-17 22:14 | RAD REPORT ---
EXAM DESCRIPTION: RAD - Chest Single View - 03/17/2022 10:06 pm CLINICAL HISTORY: ABDOMINAL DISTENTION Chest pain. COMPARISON: Chest Single View dated 12/01/2021; Chest Pa And Lat (2 Views) dated 05/14/2021; Chest Sin gle View dated 04/21/2021; Chest Single View dated 04/22/2020 FINDINGS: Portable technique limits examination quality. The lungs are mildly emphysematous but grossly clear of acute infiltrate. Small area of nodularity is noted right upper lobe, more conspicuous than on comparative study. The heart is mildly enlarged in size. Changes of a prior CABG noted. IMPRESSION: COPD with small area of nodularity in right upper lobe. Nonemergent CT chest followup wo uld be suggested.
[2022-03-17 22:37] LABS: SARS-CoV-2 Antigen Rapid Res Negative (Negative)
[2022-03-18] MEDS ORDERED: ONDANSETRON 4 MG/2 ML VIAL IV PRN (00:24)
[2022-03-18] MEDS ORDERED: ACETAMINOPHEN 325 MG TABLET PO PRN (00:24)
[2022-03-18] MEDS ORDERED: FENTANYL CITR 100 MCG/2 ML IV PRN ×2 (00:24→11:33)
[2022-03-18] MEDS: NA CHLORIDE 0.9% 1,000 ML IV SCH ×3 (01:43→20:24)
[2022-03-18] MEDS: PIPER TAZO 3.375 GM in NA CHLORIDE 0.9% 100 ML IV SCH ×3 (01:43→16:46)
[2022-03-18 03:43] LABS: Absolute Lymphocytes (CBC) 1.4 K/uL (0.7-4.9); Hematocrit 32.9 % (36.0-45.0); Lymphocytes % 17.6 % (15.3-44.8); MCV 95.9 fL (80-100); RBC Red Blood Cell Count 3.43 M/uL (3.86-4.86)
[2022-03-18 04:07] LABS: Albumin 3.1 g/dL (3.4-5.0); Bilirubin Direct 0.3 mg/dL (0-0.2); Bilirubin Total 0.9 mg/dL (0.2-1.0); Potassium 4.3 mmol/L (3.5-5.1)
[2022-03-18 04:57] VITALS: BMI 22.1
[2022-03-18] MEDS: FAMOTIDINE 20 MG/2 ML VIAL IV SCH ×2 (08:42→21:13)
[2022-03-18] MEDS: PANTOPRAZOLE 40MG TABLET PO SCH (09:00)
[2022-03-18] MEDS ORDERED: ENOXAPARIN 30 MG/0.3 ML SQ SCH (09:00)
[2022-03-18] MEDS: METOPROLOL TARTRATE 5 MG/5 ML INJ IV PRN (11:47)
--- NOTE | 2022-03-18 12:01 | RAD REPORT ---
EXAM DESCRIPTION: RAD - Abdomen 1 View (KUB) - 03/18/2022 11:56 am CLINICAL HISTORY: Placement of NGT/OGT. Post Insertion. Pain COMPARISON: No comparisons FINDINGS: Tip of the enteric tube is just entering the stomach.
--- NOTE | 2022-03-18 13:23 | RAD REPORT ---
EXAM DESCRIPTION: RAD - Abdomen 1 View (KUB) - 03/18/2022 1:16 pm CLINICAL HISTORY: ngt placement Pain COMPARISON: Abdomen 1 View (KUB) dated 03/18/2022 FINDINGS: Tip of the enteric tube is in the stomach.
--- NOTE | 2022-03-18 14:55 | RAD REPORT ---
EXAM DESCRIPTION: RAD - Abdomen 1 View (KUB) - 03/18/2022 2:48 pm CLINICAL HISTORY: NGT placement Pain COMPARISON: Abdomen 1 View (KUB) dated 03/18/2022; Abdomen 1 View (KUB) dated 03/18/2022 FINDINGS: Since prior radiographs, the enteric tube has been advanced and is in a favorable position within the stomach.
[2022-03-18] MEDS ORDERED: MINERAL OIL 30 ML UCUP PO ONE ×2 (15:13→21:00)
--- NOTE | 2022-03-18 17:51 | RAD REPORT ---
EXAM DESCRIPTION: RAD - Abdomen 1 View (KUB) - 03/18/2022 5:21 pm CLINICAL HISTORY: insertion of BGT Pain COMPARISON: Abdomen 1 View (KUB) dated 03/18/2022; Abdomen 1 View (KUB) dated 03/18/2022; Abdomen 1 View (KUB) dated 03/18/2022 FINDINGS: Enteric tube is well-positioned within the stomach.
[2022-03-18] MEDS ORDERED: HALOPERIDOL LACT 5 MG/ML INJ IV PRN (20:37)
--- NOTE | 2022-03-18 20:39 | P.PN ---
Subjective Date of Service: 03/18/22 Chief Complaint: BOWEL OBSTRUCTION Subjective: New changes AGITATION USUAL SHE GETS IN HOSPITAL. SHE PULLED OUT NGT FOUR TIMES. FAMILY CALLED AND I DISCUSSED. WE WILL TRY HALDOL. Review of Systems 10-point ROS is otherwise unremarkable General: Weakness Physical Examination - Vital Signs Temperature: 98.6 F Blood Pressure: 197/74 Pulse: 66 Respirations: 16 Pulse Ox (%): 96 - Physical Exam General: Oriented x2, Mild distress, Confused HEENT: Atraumatic, PERRLA, EOMI Neck: Supple, JVD not distended Respiratory: Clear to auscultation bilaterally, Normal air movement Cardiovascular: Regular rate/rhythm, Normal S1 S2 Gastrointestinal: Normal bowel sounds, No tenderness Musculoskeletal: No tenderness Integumentary: No rashes Neurological: Normal speech, Normal tone, Normal affect Lymphatics: No axilla or inguinal lymphadenopathy - Studies Laboratory Data (last 24 hrs) 03/17/22 21:13: PT 30.2 H, INR 2.75 03/17/22 17:57: Magnesium 1.6 Medications List Reviewed: Yes Assessment And Plan - Current Problems (Diagnosis) (1) Small bowel obstruction Current Visit: Yes Status: Acute Plan: NGT WITH LIS. DR JOSE ON CASE SHE MOST LIKELY WILL GET BETTER WITH NGT. (2) H/O mechanical aortic valve replacement Current Visit: No Status: Chronic Plan: SHE CAN'T TAKE WARFARIN WILL CHANGE HER TO LOVENOX MEANWHILE. DOSE ADJUSTED FOR AGE AND CREAT. (3) Altered mental state Current Visit: Yes Status: Acute Plan: PER DAUGHTER SHE GETS AGITATED AT HOSPITAL WILL TRY HALDOL PRN AND THIAMINE IV. (4) Hypertension Current Visit: No Status: Chronic
[2022-03-18] MEDS: HALOPERIDOL LACT 5 MG/ML INJ IV PRN (21:13)
[2022-03-19] MEDS: PIPER TAZO 3.375 GM in NA CHLORIDE 0.9% 100 ML IV SCH ×3 (00:07→16:59)
[2022-03-19] MEDS: METOPROLOL TARTRATE 5 MG/5 ML INJ IV PRN ×3 (00:08→21:11)
[2022-03-19] MEDS: NA CHLORIDE 0.9% 1,000 ML IV SCH ×2 (03:47→13:53)
--- NOTE | 2022-03-19 07:59 | EKG ---
Test Date: 2022-03-17 Test Time: 19:17:59 Intellectual Property Legal Assistant: ADITYA MEASUREMENT RESULTS: Intervals: Rate: 73 KS: 120 QRSD: 152 QT: 482 QTc: 531 Ransom: P: 79 KS: 120 QRS: -5 T: 53 INTERPRETIVE STATEMENTS: Normal sinus rhythm Possible Left atrial enlargement Left bundle branch block Abnormal ECG Compared to ECG 12/01/2021 09:02:30 Left-axis deviation no longer present Electronically Signed On 03-19-22 07:55:26 RETAIL SALES ADVISOR by Vargas Ludwig
[2022-03-19] MEDS: THIAMINE 200 MG/2 ML INJ IVP SCH (08:44)
[2022-03-19] MEDS: FAMOTIDINE 20 MG/2 ML VIAL IV SCH ×2 (08:50→21:11)
[2022-03-19] MEDS: PANTOPRAZOLE 40MG TABLET PO SCH (08:50)
[2022-03-19] MEDS ORDERED: ENOXAPARIN 60 MG/0.6 ML SQ SCH (09:00)
--- NOTE | 2022-03-19 12:09 | RAD REPORT ---
EXAM DESCRIPTION: RAD - Abdomen W Erect - 03/19/2022 12:03 pm CLINICAL HISTORY: Small bowel obstruction Pain COMPARISON: Abdomen 1 View (KUB) dated 03/18/2022; Abdomen 1 View (KUB) dated 03/18/2022; Abdomen Pelv is W Contrast dated 03/17/2022 FINDINGS: Small bowel obstruction pattern is no longer seen. Cholecystectomy. Well-positioned enteric tube in the stomach. Mild levoscoliosis of the lumbar spine. IMPRESSION: Small bowel obstruction pattern no longer present.
--- NOTE | 2022-03-19 17:01 | P.HP ---
Date of Service: 03/19/22 Patient was able to receive 2 doses of mineral oil yesterday. Tube is been discontinued. Patient shows clinical improvement. Radiographically it appears the small bowel has also been resolved. She has been started on a clear liquid diet advance as tolerated. I think this should help resolve her issue
[2022-03-19] MEDS: HALOPERIDOL LACT 5 MG/ML INJ IV PRN (21:12)
--- NOTE | 2022-03-19 21:23 | P.PN ---
Subjective Date of Service: 03/19/22 Chief Complaint: BOWEL OBSTRUCTION Subjective: Improving AGITATION USUAL SHE GETS IN HOSPITAL. SHE PULLED OUT NGT FOUR TIMES. FAMILY CALLED AND I DISCUSSED. WE WILL TRY HALDOL. SHE IS ON CLEAR LIQUIDS NOW X RAY IS BETTER. BP HIGH , SHE IS GETTING METOPROLOL IV. Physical Examination - Vital Signs Temperature: 98.1 F Blood Pressure: 194/64 Pulse: 69 Respirations: 16 Pulse Ox (%): 97 - Physical Exam General: Oriented x3, Cachectic, Mild distress HEENT: Atraumatic, PERRLA, EOMI Neck: Supple, JVD not distended Respiratory: Clear to auscultation bilaterally, Normal air movement Cardiovascular: Regular rate/rhythm, Normal S1 S2 Gastrointestinal: Normal bowel sounds, No tenderness Musculoskeletal: No tenderness Integumentary: No rashes Neurological: Normal speech, Normal tone, Normal affect Lymphatics: No axilla or inguinal lymphadenopathy - Studies Microbiology Data (last 24 hrs): 03/17/22 18:00 Clean Catch Urine [place] Count - Final <10,000 CFU/ML. 03/17/22 18:00 Clean Catch Urine - Final MIXED JEFF. Medications List Reviewed: Yes Assessment And Plan - Current Problems (Diagnosis) (1) Small bowel obstruction Current Visit: Yes Status: Acute Plan: NGT WITH LIS. DR JOSE ON CASE SHE MOST LIKELY WILL GET BETTER WITH NGT. CLEARED ON X RAY FU CLEAR LIQ (2) H/O mechanical aortic valve replacement Current Visit: No Status: Chronic Plan: SHE CAN'T TAKE WARFARIN WILL CHANGE HER TO LOVENOX MEANWHILE. DOSE ADJUSTED FOR AGE AND CREAT. (3) Altered mental state Current Visit: Yes Status: Acute Plan: PER DAUGHTER SHE GETS AGITATED AT HOSPITAL WILL TRY HALDOL PRN AND THIAMINE IV. (4) Hypertension Current Visit: No Status: Chronic
[2022-03-19] MEDS ORDERED: HYDRALAZINE HCL 20 MG/ML VIAL IV PRN (21:25)
[2022-03-20] MEDS: NA CHLORIDE 0.9% 1,000 ML IV SCH ×2 (00:38→11:46)
[2022-03-20] MEDS: PIPER TAZO 3.375 GM in NA CHLORIDE 0.9% 100 ML IV SCH ×2 (00:39→09:37)
[2022-03-20 02:24] VITALS: O2SAT 95
[2022-03-20] MEDS ORDERED: ENOXAPARIN 40 MG/0.4 ML SQ SCH (09:00)
[2022-03-20] MEDS: PANTOPRAZOLE 40MG TABLET PO SCH (09:37)
[2022-03-20] MEDS: THIAMINE 200 MG/2 ML INJ IVP SCH (09:37)
[2022-03-20] MEDS: FAMOTIDINE 20 MG/2 ML VIAL IV SCH (09:37)
[2022-03-20] MEDS ORDERED: MINERAL OIL 30 ML UCUP PO ONE ×2 (11:29)
[2022-03-20 16:04] VITALS: BP 160/76; TEMP 98.3
== END 2022-03-20 16:35 | disposition home or self-care (01) | DRG 389 ==
LOC: ER 15:38 → ERHOLD 21:22 → 4TH 23:31
PROVIDERS: ADMIT Internal Medicine; ATTEND Internal Medicine
DX: K56.609 Unspecified intestinal obstruction, unspecified as to partial versus complete obstruction (principal); R64 Cachexia; E03.9 Hypothyroidism, unspecified; I10 Essential (primary) hypertension; E78.5 Hyperlipidemia, unspecified; Z88.5 Allergy status to narcotic agent; Z95.2 Presence of prosthetic heart valve; Z68.22 Body mass index [BMI] 22.0-22.9, adult; Z20.822 Contact with and (suspected) exposure to COVID-19
CPT/HCPCS: 36415; 71045; 74018; 74019; 74177; 80048; 80053; 80076; 81003; 81015; 83690; 83735; 83880; 84484; 85025; 85610; 87086; 87088; 87811; 93005; 96361; 96365; 96366; 96372; 96375; 99285; J0360; J1630; J1650; J2405; J2543; J3010; J3411; J7030; J7040; Q0138; Q5106; Q9967